=== PATIENT | female | born 1945 | race Two or more races ===

== ENCOUNTER 2017-04-30 01:58 | Inpatient (IN) | payer MEDICARE ==
[~2017-04-30] VITALS: Ht 160 cm; Wt 76.2 kg
[2017-04-30] VITALS (11 sets, daily range): BP systolic 81–120; BP diastolic 38–66
[2017-04-30] MEDS ORDERED: FUROSEMIDE20 M1 ORAL (02:01)
--- NOTE | 2017-04-30 02:09 | Emergency Room Report ---
History of Present Illness General Chief Complaint: Dyspnea/Respdistress Source: Patient, EMS Present Illness HPI 71-year-old female with pmhx of HTN, DM, CAD STATUS post CABG, CHF p/w SOB for 1 day SOB was gradual in onset, occurs both at rest and on exertion, worsened with laying flat. Associated with b/l lower extremity edema. Denies chest pain. When EMS arrived she was satting 85 on room air, rails, was given nitroglycerin and put on Z-Mamadou. Patient has experienced this SOB in the past and states it feels similar to previous CHF exacerbations. Allergies: Coded Allergies: No Known Allergies (Unverified , 04/30/17) Patient History Past Medical History: see triage record Past Surgical History: none Pertinent Family History: none Last Menstrual Period: n/a Reviewed Nursing Documentation: PMH: Agreed, PSxH: Agreed Nursing Documentation-PMH Past Medical History: No History, Except For Hx Cardiac Problems: Yes - CHF Hx Diabetes: Yes - dm2 Review of Systems All Other Systems: negative except mentioned in HPI Physical Exam Vital Signs Date Time Temp Pulse Resp B/P (MAP) Pulse Ox O2 Delivery O2 Flow Rate FiO2 04/30/17 01:53 95.5 136 24 180/109 91 Bi-pap Sp02 EP Interpretation: abnormal General Appearance: alert, GCS 15, moderate distress Head: normocephalic, atraumatic Eyes: bilateral eye normal inspection, bilateral eye PERRL, bilateral eye EOMI ENT: normal ENT inspection, normal pharynx, normal voice, moist mucus membranes Neck: normal inspection, full range of motion, supple Respiratory: respiratory distress, rales Cardiovascular #1: normal peripheral pulses, tachycardia, other - well healed substernal scar, edema Cardiovascular #2: 2+ radial (R), 2+ radial (L) Gastrointestinal: normal inspection, non tender, soft, non-distended, no guarding Musculoskeletal: normal inspection, back normal, normal range of motion, non- tender Neurologic: normal inspection, alert, oriented x3, responsive, motor strength/ tone normal, sensory intact, normal gait, speech normal Psychiatric: normal inspection, judgement/insight normal, memory normal Skin: normal inspection, normal color, no rash, warm/dry, well hydrated, normal turgor Procedures Critical Care Time Critical Care Time 40 minutes of CC time 71-year-old female with CHF exacerbation VS: hypoxic, tachypnea, tachycardic PLAN: IV access, labs, lactate, troponin, Blood/Urine Cx, Abx, lasix nitro BIPAP Anticipate admission to [facility] CC time also includes review of labs, review of EMR, discussion with family and paperwork from SNF, d/w hospitalist CC could include dosing of pressors, additional Abx CC time does not include procedures Medical Decision Making Diagnostic Impression: Primary Impression: CHF exacerbation Additional Impressions: Respiratory failure with hypoxia Renal insufficiency ER Course 71-year-old female with pmhx of HTN, CAD, CHF p/w SOB DDX: CHF exacerbation, ACS, pneumonia, asthma/copd 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 Tridal drip started and then stopped due to hypotension Patient's condition remains serious. given abx empirically cannot r/o R sided pna, also with wbc at 20 Disposition: Patient to be admitted to [facility] Patient requires inpatient admission for close monitoring of respiratory status/ continuation of BIPAP, further workup including serial troponin and EKGs, possible additional diuresis and monitoring of electrolytes. D/w hospitalist Dr Mace Please note that this Emergency Department Report was dictated using [employer] sales [employer] technology software, occasionally this can lead to erroneous entry secondary to interpretation by the dictation equipment. EKG Diagnostic Results EP Interpretation: Yes Rate: Tachycardic Rhythm: Atrial fibrillation ST Segments: T wave inversions noted in the lateral leads ASA given to patient: no Rhythm Strip EP Interpretation: Yes Rate:122 Rhythm: NSR, no PVCs, no ectopy Chest X-ray CXR: Ordered: Yes 1 view Indication: SOB EP interpretation: Yes Interpretation: Cardiomegaly with pulmonary vascular congestion, also cannot R/ O R sided infiltrate Impression: CHF possible R sided infiltrate Electronically signed by Petros Rivera MD Laboratory Tests Test 04/30/17 02:00 04/30/17 03:08 04/30/17 03:20 04/30/17 05:09 White Blood Count 20.3 K/UL (4.8-10.8) H Red Blood Count 4.60 M/UL (4.20-5.40) Hemoglobin 12.8 G/DL (12.0-16.0) Hematocrit 40.0 % (37.0-47.0) Mean Corpuscular Volume 87 FL (80-99) Mean Corpuscular Hemoglobin 27.9 PG (27.0-31.0) Mean Corpuscular Hemoglobin Concent 32.1 G/DL (32.0-36.0) Red Cell Distribution Width 12.7 % (11.6-14.8) Platelet Count 340 K/UL (150-450) Mean Platelet Volume 6.0 FL (6.5-10.1) L Neutrophils (%) (Auto) % (45.0-75.0) Lymphocytes (%) (Auto) % (20.0-45.0) Monocytes (%) (Auto) % (1.0-10.0) Eosinophils (%) (Auto) % (0.0-3.0) Basophils (%) (Auto) % (0.0-2.0) Differential Total Cells Counted 100 Neutrophils % (Manual) 69 % (45-75) Lymphocytes % (Manual) 21 % (20-45) Monocytes % (Manual) 4 % (1-10) Eosinophils % (Manual) 3 % (0-3) Basophils % (Manual) 1 % (0-2) Band Neutrophils 2 % (0-8) Platelet Estimate Adequate Platelet Morphology Normal Prothrombin Time 9.9 SEC (9.30-11.50) Prothrombin Time INR 0.9 (0.9-1.1) PTT 25 SEC (23-33) Sodium Level 135 MMOL/L (136-145) L Potassium Level 3.7 MMOL/L (3.5-5.1) Chloride Level 98 MMOL/L (98-107) Carbon Dioxide Level 20 MMOL/L (21-32) L Anion Gap 18 mmol/L (5-15) H Blood Urea Nitrogen 23 mg/dL (7-18) H Creatinine 1.8 MG/DL (0.55-1.30) H Estimate Glomerular Filtration Rate 27.9 mL/min (>60) Glucose Level 362 MG/DL (74-106) H Lactic Acid Level 6.50 mmol/L (0.66-2.22) H Pending Calcium Level 9.3 MG/DL (8.5-10.1) Total Bilirubin 0.7 MG/DL (0.2-1.0) Aspartate Amino Transferase (AST) 34 U/L (15-37) Alanine Aminotransferase (ALT) 28 U/L (12-78) Alkaline Phosphatase 122 U/L (46-116) H Troponin I 0.012 ng/mL (0.000-0.056) Pro-B-Type Natriuretic Peptide 1854 pg/mL (0-125) H Total Protein 8.6 G/DL (6.4-8.2) H Albumin 3.8 G/DL (3.4-5.0) Globulin 4.8 g/dL Albumin/Globulin Ratio 0.8 (1.0-2.7) L Arterial Blood pH 7.408 (7.350-7.450) Arterial Blood Partial Pressure CO2 28.6 mmHg (35.0-45.0) L Arterial Blood Partial Pressure O2 75.1 mmHg (75.0-100.0) Arterial Blood HCO3 17.6 mmol/L (22.0-26.0) L Arterial Blood Oxygen Saturation 94.3 % (92.0-98.0) Arterial Blood Base Excess -5.8 Marlon Test Positive Urine Color Pale yellow Urine Appearance Clear Urine pH 6 (4.5-8.0) Urine Specific [place] 1.010 (1.005-1.035) Urine Protein 4+ (NEGATIVE) H Urine Glucose (UA) 4+ (NEGATIVE) H Urine Ketones Negative (NEGATIVE) Urine Occult Blood 1+ (NEGATIVE) H Urine Nitrite Negative (NEGATIVE) Urine Bilirubin Negative (NEGATIVE) Urine Urobilinogen Normal MG/DL (0.0-1.0) Urine Leukocyte Esterase Negative (NEGATIVE) Urine RBC 0-2 /HPF (0 - 2) Urine WBC 0-2 /HPF (0 - 2) Urine Squamous Epithelial Cells Few /LPF (NONE/OCC) Urine Bacteria Few /HPF (NONE) Last Vital Signs Date Time Temp Pulse Resp B/P (MAP) Pulse Ox O2 Delivery O2 Flow Rate FiO2 04/30/17 01:53 95.5 136 24 180/109 91 Bi-pap Disposition: ADMITTED INPATIENT Condition: Petros Blackburn M.D. Apr 30, 2017 02:09
[2017-04-30] MEDS ORDERED: Nitroglycerin 50mg/250ml btl 250 ML IV SCH (02:15)
[2017-04-30 02:37] LABS: HEMOGLOBIN 12.8 G/DL (12.0-16.0); MEAN CORPUSCULAR VOLUME 87 FL (80-99); PLATELET COUNT 340 K/UL (150-450); RED CELL DISTRIBUTION WIDTH 12.7 % (11.6-14.8); WHITE BLOOD COUNT 20.3 K/UL (4.8-10.8)
[2017-04-30 02:49] LABS: ANION GAP 18 mmol/L (5-15); BLOOD UREA NITROGEN 23 mg/dL (7-18); CALCIUM 9.3 MG/DL (8.5-10.1); CARBON DIOXIDE 20 MMOL/L (21-32); CHLORIDE 98 MMOL/L (98-107); CREATININE 1.8 MG/DL (0.55-1.30); POTASSIUM 3.7 MMOL/L (3.5-5.1); SODIUM 135 MMOL/L (136-145)
[2017-04-30 02:50] LABS: INR 0.9 (0.9-1.1)
[2017-04-30 03:00] LABS: ALANINE AMINOTRANSFERASE 28 U/L (12-78); ALBUMIN 3.8 G/DL (3.4-5.0); ALBUMIN/GLOBULIN RATIO 0.8 (1.0-2.7); ALKALINE PHOSPHATASE 122 U/L (46-116); ASPARTATE AMINO TRANSFERASE 34 U/L (15-37); BILIRUBIN,TOTAL 0.7 MG/DL (0.2-1.0)
[2017-04-30] MEDS ORDERED: Vancomycin 1.5gm/D5W 250ml 250 ML IVPB ONE (03:00)
[2017-04-30] MEDS ORDERED: Cefepime HCl 1 GM in NS 55 ML IV ONE (03:00)
[2017-04-30] MEDS ORDERED: Cefepime 1gm vial ONE (03:14)
[2017-04-30 03:25] LABS: APPEARANCE,URINE CLEAR; BILIRUBIN, URINE NEGATIVE (NEGATIVE); COLOR,URINE PALE YELLOW; GLUCOSE, URINE (UA) 4+ (NEGATIVE); KETONES,URINE NEGATIVE (NEGATIVE); LEUKOCYTE ESTERASE ,URINE NEGATIVE (NEGATIVE); NITRITE,URINE NEGATIVE (NEGATIVE); PH,URINE 6 (4.5-8.0); PROTEIN,URINE 4+ (NEGATIVE); UROBILINOGEN,URINE NORMAL MG/DL (0.0-1.0)
[2017-04-30] MEDS ORDERED: LANTUS SOL100 UNIT/1 SUBQ ×2 (08:39→09:16)
[2017-04-30] MEDS ORDERED: LISINOPRIL5 MG ORAL (08:39)
[2017-04-30] MEDS ORDERED: LIPITOR80 MG ORAL (08:39)
[2017-04-30] MEDS ORDERED: JENTADUETO 2.51 EAC2 PO ×2 (08:39→09:16)
[2017-04-30] MEDS ORDERED: ASPIRIN81 MG ORAL (08:39)
[2017-04-30] MEDS ORDERED: CARVEDILOL3.125 MG ORAL (08:39)
[2017-04-30] MEDS ORDERED: HUMALOG100 UNIT/3 SUBQ (08:39)
[2017-04-30] MEDS ORDERED: CARVEDILOL6.25 MG ORAL (09:16)
[2017-04-30] MEDS ORDERED: SULFAMETHOXAZO1 EAC2 ORAL (09:16)
[2017-04-30] MEDS ORDERED: ASPIR 8181 MG ORAL (09:16)
[2017-04-30] MEDS ORDERED: CENTRUM ADULTS1 EACH PO (09:16)
[2017-04-30] MEDS ORDERED: LASIX20 M1 ORAL (09:16)
[2017-04-30] MEDS ORDERED: LISINOPRIL10 MG ORAL (09:16)
--- NOTE | 2017-04-30 10:33 | Diagnostic Imaging Report ---
Indication: Dyspnea Comparison: None A single view chest radiograph was obtained. Findings: There is enlargement of the cardiac silhouette with pulmonary vascular redistribution and prominence, hazy vessel margins and the suggestion of interstitial edema consistent with CHF. Sternotomy noted. Bones are osteopenic. IMPRESSION: Interstitial edema/CHF
--- NOTE | 2017-04-30 14:38 | Infectious Diseases Prog Note ---
Assessment/Plan Problems: (1) Pneumonia Assessment & Plan: with significant infiltration and leukocytosis, will send sptum culture and screen for influenza, start cefepime , doxycycline, and Tamiflu empirically (2) Sepsis Assessment & Plan: due to the above, will send blood culture and start cefepime with doxycycline (3) Respiratory failure with hypoxia Assessment & Plan: due to the above, continue inhalers and oxygen with antibiotics , monitor CXR (4) CHF exacerbation Assessment & Plan: recommend diuresis with daily weight monitor and urine output (5) Renal insufficiency Assessment & Plan: avoid nephrotoxic meds, follow renal function with urine output Assessment/Plan possible influenza infection : will place in droplet isolation and screen for influenza, start Tamiflu empirically Subjective Allergies: Coded Allergies: No Known Allergies (Unverified , 04/30/17) Objective Vital Signs Last 24 Hour Vital Signs Date Time Temp Pulse Resp B/P (MAP) Pulse Ox O2 Delivery O2 Flow Rate FiO2 04/30/17 12:04 98.5 59 18 110/49 98 Nasal Cannula 4.0 04/30/17 12:00 68 04/30/17 11:27 61 04/30/17 09:30 62 23 107/63 99 Nasal Cannula 4.0 04/30/17 08:30 98.5 66 22 97/57 98 Nasal Cannula 4.0 04/30/17 07:30 65 23 114/66 99 Nasal Cannula 4.0 04/30/17 07:15 68 24 Nasal Cannula 4.0 97 04/30/17 06:33 98.7 69 18 98/58 96 Nasal Cannula 4.0 04/30/17 05:18 98.7 04/30/17 05:04 95.5 66 21 94/38 98 50 04/30/17 04:46 86 16 98 Facial 50 04/30/17 03:30 50 04/30/17 03:15 77 24 96 Facial 50 04/30/17 03:00 95.5 76 26 81/45 95 Bi-pap 50 04/30/17 02:20 89 39 Bi-pap 30 04/30/17 02:20 95.5 89 39 108/58 92 Bi-pap 30 04/30/17 02:15 108/58 04/30/17 02:14 107 39 Bi-pap 30 04/30/17 02:12 106 39 97 Facial 30 04/30/17 01:53 95.5 136 24 180/109 91 Bi-pap Height (Feet): 5 Height (Inches): 3.00 Weight (Pounds): 210 Laboratory Tests Test 04/30/17 02:00 04/30/17 03:08 04/30/17 03:20 04/30/17 05:09 White Blood Count 20.3 K/UL (4.8-10.8) H Red Blood Count 4.60 M/UL (4.20-5.40) Hemoglobin 12.8 G/DL (12.0-16.0) Hematocrit 40.0 % (37.0-47.0) Mean Corpuscular Volume 87 FL (80-99) Mean Corpuscular Hemoglobin 27.9 PG (27.0-31.0) Mean Corpuscular Hemoglobin Concent 32.1 G/DL (32.0-36.0) Red Cell Distribution Width 12.7 % (11.6-14.8) Platelet Count 340 K/UL (150-450) Mean Platelet Volume 6.0 FL (6.5-10.1) L Neutrophils (%) (Auto) % (45.0-75.0) Lymphocytes (%) (Auto) % (20.0-45.0) Monocytes (%) (Auto) % (1.0-10.0) Eosinophils (%) (Auto) % (0.0-3.0) Basophils (%) (Auto) % (0.0-2.0) Differential Total Cells Counted 100 Neutrophils % (Manual) 69 % (45-75) Lymphocytes % (Manual) 21 % (20-45) Monocytes % (Manual) 4 % (1-10) Eosinophils % (Manual) 3 % (0-3) Basophils % (Manual) 1 % (0-2) Band Neutrophils 2 % (0-8) Platelet Estimate Adequate Platelet Morphology Normal Prothrombin Time 9.9 SEC (9.30-11.50) Prothromb Time International Ratio 0.9 (0.9-1.1) Activated Partial Thromboplast Time 25 SEC (23-33) Sodium Level 135 MMOL/L (136-145) L Potassium Level 3.7 MMOL/L (3.5-5.1) Chloride Level 98 MMOL/L (98-107) Carbon Dioxide Level 20 MMOL/L (21-32) L Anion Gap 18 mmol/L (5-15) H Blood Urea Nitrogen 23 mg/dL (7-18) H Creatinine 1.8 MG/DL (0.55-1.30) H Estimat Glomerular Filtration Rate 27.9 mL/min (>60) Glucose Level 362 MG/DL (74-106) H Lactic Acid Level 6.50 mmol/L (0.66-2.22) H 1.70 mmol/L (0.66-2.22) Calcium Level 9.3 MG/DL (8.5-10.1) Total Bilirubin 0.7 MG/DL (0.2-1.0) Aspartate Amino Transf (AST/SGOT) 34 U/L (15-37) Alanine Aminotransferase (ALT/SGPT) 28 U/L (12-78) Alkaline Phosphatase 122 U/L (46-116) H Troponin I 0.012 ng/mL (0.000-0.056) Pro-B-Type Natriuretic Peptide 1854 pg/mL (0-125) H Total Protein 8.6 G/DL (6.4-8.2) H Albumin 3.8 G/DL (3.4-5.0) Globulin 4.8 g/dL Albumin/Globulin Ratio 0.8 (1.0-2.7) L Arterial Blood pH 7.408 (7.350-7.450) Arterial Blood Partial Pressure CO2 28.6 mmHg (35.0-45.0) L Arterial Blood Partial Pressure O2 75.1 mmHg (75.0-100.0) Arterial Blood HCO3 17.6 mmol/L (22.0-26.0) L Arterial Blood Oxygen Saturation 94.3 % (92.0-98.0) Arterial Blood Base Excess -5.8 Marlon Test Positive Urine Color Pale yellow Urine Appearance Clear Urine pH 6 (4.5-8.0) Urine Specific [place] 1.010 (1.005-1.035) Urine Protein 4+ (NEGATIVE) H Urine Glucose (UA) 4+ (NEGATIVE) H Urine Ketones Negative (NEGATIVE) Urine Occult Blood 1+ (NEGATIVE) H Urine Nitrite Negative (NEGATIVE) Urine Bilirubin Negative (NEGATIVE) Urine Urobilinogen Normal MG/DL (0.0-1.0) Urine Leukocyte Esterase Negative (NEGATIVE) Urine RBC 0-2 /HPF (0 - 2) Urine WBC 0-2 /HPF (0 - 2) Urine Squamous Epithelial Cells Few /LPF (NONE/OCC) Urine Bacteria Few /HPF (NONE) Current Medications Medications (Trade) Dose Ordered Sig/Ellen Route PRN Reason Start Time Stop Time Status Last Admin Dose Admin Dextrose (Dextrose 50%) STAT PRN IV Hypoglycemia 04/30/17 13:30 05/30/17 13:29 Insulin Aspart (NovoLOG) BEFORE MEALS AND HS SUBQ 04/30/17 16:30 05/30/17 16:29 Sarah Matos M.D. Apr 30, 2017 14:38
[2017-04-30] MEDS: NovoLOG Insulin Flexpen SUBQ SCH ×2 (16:59→20:55)
--- NOTE | 2017-04-30 19:45 | Consultation ---
DATE OF CONSULTATION: 04/30/2017 INFECTIOUS DISEASES CONSULTATION CONSULTING PHYSICIAN: Sarah Matos M.D. REQUESTING PHYSICIAN: Jose Manuel Zimmerman M.D. REASON FOR CONSULTATION: Pneumonia, sepsis, and leukocytosis. Recommendation for antibiotics treatment. HISTORY OF PRESENT ILLNESS: The patient is a 71-year-old female with past medical history of coronary artery disease status post bypass surgery, diabetes, hypertension, and CHF with recent exacerbation in December presented to [facility] emergency room for shortness of breath over the last 24 hours. The patient was dyspneic on rest and on exertion. Her shortness of breath has been progressive. It was associated with cough productive of grayish phlegm. The patient had a sister who was sick with cold recently. She is unclear whether she had influenza infection or not. The patient had a chest x-ray in the emergency room, which showed evidence of bilateral infiltration suspicious of pneumonia. Her white count was significantly elevated around 20,000 suggestive of sepsis and pneumonia so I was consulted by the primary provider for antibiotics treatment and further management of pneumonia, leukocytosis, and possible sepsis. PAST MEDICAL HISTORY: Significant for hypertension, diabetes, coronary artery disease status post CABG, and CHF. PAST SURGICAL HISTORY: She had bypass surgery. ALLERGIES: She has no known drug allergy. MEDICATIONS: The patient received cefepime in the emergency room. She had vancomycin ordered but not received. SOCIAL HISTORY: The patient lives at home with sister. Denied using any drugs, tobacco, or alcohol. FAMILY HISTORY: Negative for recurrent infection or immunocompromised condition. REVIEW OF SYSTEMS: A 14-point of system reviewed were all negative apart from the one I mentioned above in my History and Physical. PHYSICAL EXAMINATION: VITAL SIGNS: Temperature 98.5, pulse 59, respirations 18, blood pressure 110/49, and saturation 98% on 4 liters nasal cannula. GENERAL: The patient is an elderly female, obese, lying in bed, awake, alert, oriented, not in distress, coughing. HEENT: Normocephalic and atraumatic. Pupils are reactive to light. Moist oral mucosa. No exudate or thrush. NECK: Supple. No lymphadenopathy. CARDIOVASCULAR: She was tachycardic. S1 and S2 normal. No murmur. LUNGS: She had wheezing at the apex and crackles with diminished breathing sounds at the bases. ABDOMEN: Soft, obese, nontender, and nondistended. Normal bowel sounds. No hepatosplenomegaly. No ascites. EXTREMITIES: She had +1 edema. No cyanosis. No clubbing. SKIN: No rash. No hives. No ulceration. LABORATORY DATA: Showed white count of 20.3, hemoglobin of 12.8, and platelet count of 340. BUN of 23, creatinine of 1.8, and glucose of 362. Urinalysis was negative for infection. IMAGING STUDIES: Chest x-ray showed interstitial edema and CHF. ASSESSMENT AND RECOMMENDATION: 1. Pneumonia with significant infiltration and leukocytosis. We will send sputum culture and screen for influenza. Since she is at high risk, we will start the patient on cefepime, doxycycline, and Tamiflu empiric coverage. Pending culture results. We will place the patient in droplet isolation. 2. Possible influenza infection. We will place the patient in droplet isolation and screen for influenza. Start Tamiflu empirically. 3. Sepsis due to the above with significant leukocytosis. We will send blood culture and start cefepime with doxycycline empiric coverage. 4. Respiratory failure with hypoxemia due to the above. Continue inhalers and oxygen with antibiotics. Monitor chest x-ray. Titrate oxygen as needed. 5. Congestive heart failure with possible exacerbation. Recommend diuresis with daily weight monitor and urine output monitor. 6. Renal insufficiency, unclear whether acute or chronic. Avoid nephrotoxic medicine. Follow renal function with urine output. Nephrology team will be following. Thank you for the consult. Infectious Disease will continue to follow. Sarah Matos M.D. DR: CHANTALE JOB#: [id number] CC:
--- NOTE | 2017-04-30 22:17 | History and Physical ---
History of Present Illness General Date patient seen: Apr 30, 2017 Reason for Hospitalization: Dyspnea/Respdistress Present Illness Allergies: Coded Allergies: No Known Allergies (Unverified , 04/30/17) Medication History Scheduled Aspirin* (Aspir 81*), 81 MG ORAL DAILY, (Reported) Carvedilol* (Carvedilol*), 6.25 MG ORAL EVERY 12 HOURS, (Reported) Furosemide* (Lasix*), 20 MG ORAL DAILY, (Reported) Insulin Glargine (Lantus), 20 SUBQ BEDTIME, (Reported) Linagliptin/Metformin Hcl (Jentadueto 2.5 Mg-1000 Mg Tab), 1 EACH PO BID, ( Reported) Lisinopril* (Lisinopril*), 20 MG ORAL DAILY, (Reported) Multivitamin/Iron/Folic Acid (Centrum Adults Tablet), 1 EACH PO DAILY, (Reported ) Sulfamethoxazole/Trimethoprim Ds Tablet* (Sulfamethoxazole-Tmp Ds Tablet*), 1 TAB ORAL TWICE A DAY, (Reported) Miscellaneous Medications Linagliptin/Metformin Hcl (Jentadueto 2.5 Mg-1000 Mg Tab), 1 EACH PO, (Reported) Patient History Healthcare decision maker Resuscitation status Full Code Advanced Directive on File No Physical Exam Last 24 Hour Vital Signs Date Time Temp Pulse Resp B/P (MAP) Pulse Ox O2 Delivery O2 Flow Rate FiO2 04/30/17 16:00 65 04/30/17 16:00 98.0 65 20 97/59 99 Nasal Cannula 4.0 04/30/17 12:04 98.5 59 18 110/49 98 Nasal Cannula 4.0 04/30/17 12:00 68 04/30/17 11:27 61 04/30/17 11:10 98.5 63 23 120/53 99 Nasal Cannula 4.0 97 04/30/17 11:10 62 23 120/53 99 Nasal Cannula 4.0 97 04/30/17 09:30 62 23 107/63 99 Nasal Cannula 4.0 04/30/17 08:30 98.5 66 22 97/57 98 Nasal Cannula 4.0 04/30/17 07:30 65 23 114/66 99 Nasal Cannula 4.0 04/30/17 07:15 68 24 Nasal Cannula 4.0 97 04/30/17 06:33 98.7 69 18 98/58 96 Nasal Cannula 4.0 1/11/18 05:18 98.7 04/30/17 05:04 95.5 66 21 94/38 98 50 04/30/17 04:46 86 16 98 Facial 50 04/30/17 03:30 50 04/30/17 03:15 77 24 96 Facial 50 04/30/17 03:00 95.5 76 26 81/45 95 Bi-pap 50 04/30/17 02:20 89 39 Bi-pap 30 04/30/17 02:20 95.5 89 39 108/58 92 Bi-pap 30 04/30/17 02:15 108/58 04/30/17 02:14 107 39 Bi-pap 30 04/30/17 02:12 106 39 97 Facial 30 04/30/17 01:53 95.5 136 24 180/109 91 Bi-pap Intake and Output 04/29/17 04/30/17 19:00 07:00 Intake Total 0 ml Balance 0 ml Intake Oral 0 ml Laboratory Tests Test 04/30/17 02:00 04/30/17 03:08 04/30/17 03:20 04/30/17 05:09 White Blood Count 20.3 K/UL (4.8-10.8) H Red Blood Count 4.60 M/UL (4.20-5.40) Hemoglobin 12.8 G/DL (12.0-16.0) Hematocrit 40.0 % (37.0-47.0) Mean Corpuscular Volume 87 FL (80-99) Mean Corpuscular Hemoglobin 27.9 PG (27.0-31.0) Mean Corpuscular Hemoglobin Concent 32.1 G/DL (32.0-36.0) Red Cell Distribution Width 12.7 % (11.6-14.8) Platelet Count 340 K/UL (150-450) Mean Platelet Volume 6.0 FL (6.5-10.1) L Neutrophils (%) (Auto) % (45.0-75.0) Lymphocytes (%) (Auto) % (20.0-45.0) Monocytes (%) (Auto) % (1.0-10.0) Eosinophils (%) (Auto) % (0.0-3.0) Basophils (%) (Auto) % (0.0-2.0) Differential Total Cells Counted 100 Neutrophils % (Manual) 69 % (45-75) Lymphocytes % (Manual) 21 % (20-45) Monocytes % (Manual) 4 % (1-10) Eosinophils % (Manual) 3 % (0-3) Basophils % (Manual) 1 % (0-2) Band Neutrophils 2 % (0-8) Platelet Estimate Adequate Platelet Morphology Normal Prothrombin Time 9.9 SEC (9.30-11.50) Prothromb Time International Ratio 0.9 (0.9-1.1) Activated Partial Thromboplast Time 25 SEC (23-33) Sodium Level 135 MMOL/L (136-145) L Potassium Level 3.7 MMOL/L (3.5-5.1) Chloride Level 98 MMOL/L (98-107) Carbon Dioxide Level 20 MMOL/L (21-32) L Anion Gap 18 mmol/L (5-15) H Blood Urea Nitrogen 23 mg/dL (7-18) H Creatinine 1.8 MG/DL (0.55-1.30) H Estimat Glomerular Filtration Rate 27.9 mL/min (>60) Glucose Level 362 MG/DL (74-106) H Lactic Acid Level 6.50 mmol/L (0.66-2.22) H 1.70 mmol/L (0.66-2.22) Calcium Level 9.3 MG/DL (8.5-10.1) Total Bilirubin 0.7 MG/DL (0.2-1.0) Aspartate Amino Transf (AST/SGOT) 34 U/L (15-37) Alanine Aminotransferase (ALT/SGPT) 28 U/L (12-78) Alkaline Phosphatase 122 U/L (46-116) H Troponin I 0.012 ng/mL (0.000-0.056) Pro-B-Type Natriuretic Peptide 1854 pg/mL (0-125) H Total Protein 8.6 G/DL (6.4-8.2) H Albumin 3.8 G/DL (3.4-5.0) Globulin 4.8 g/dL Albumin/Globulin Ratio 0.8 (1.0-2.7) L Arterial Blood pH 7.408 (7.350-7.450) Arterial Blood Partial Pressure CO2 28.6 mmHg (35.0-45.0) L Arterial Blood Partial Pressure O2 75.1 mmHg (75.0-100.0) Arterial Blood HCO3 17.6 mmol/L (22.0-26.0) L Arterial Blood Oxygen Saturation 94.3 % (92.0-98.0) Arterial Blood Base Excess -5.8 Marlon Test Positive Urine Color Pale yellow Urine Appearance Clear Urine pH 6 (4.5-8.0) Urine Specific [place] 1.010 (1.005-1.035) Urine Protein 4+ (NEGATIVE) H Urine Glucose (UA) 4+ (NEGATIVE) H Urine Ketones Negative (NEGATIVE) Urine Occult Blood 1+ (NEGATIVE) H Urine Nitrite Negative (NEGATIVE) Urine Bilirubin Negative (NEGATIVE) Urine Urobilinogen Normal MG/DL (0.0-1.0) Urine Leukocyte Esterase Negative (NEGATIVE) Urine RBC 0-2 /HPF (0 - 2) Urine WBC 0-2 /HPF (0 - 2) Urine Squamous Epithelial Cells Few /LPF (NONE/OCC) Urine Bacteria Few /HPF (NONE) Microbiology Date/Time Source Procedure Growth Status 04/30/17 16:00 Nasopharynx Influenza Types A,B Antigen (TIAGO) - Final Complete Height (Feet): 5 Height (Inches): 3.00 Weight (Pounds): 210 Medications Current Medications Medications (Trade) Dose Ordered Sig/Ellen Route PRN Reason Start Time Stop Time Status Last Admin Dose Admin Cefepime HCl 2 gm/ Dextrose 55 ml @ 110 mls/hr Q24H IVPB 05/01/17 03:00 05/08/17 02:59 Dextrose (Dextrose 50%) STAT PRN IV Hypoglycemia 04/30/17 13:30 05/30/17 13:29 Doxycycline Monohydrate (Vibramycin) 100 mg Q12HR@0600,1800 ORAL 04/30/17 16:30 05/07/17 16:29 04/30/17 16:58 Insulin Aspart (NovoLOG) BEFORE MEALS AND HS SUBQ 04/30/17 16:30 05/30/17 16:29 04/30/17 20:55 Oseltamivir Phosphate (Tamiflu) 30 mg BID ORAL 04/30/17 18:00 05/05/17 17:59 04/30/17 17:45 DIVINA MATTHEWS Apr 30, 2017 22:17
[2017-05-01] VITALS: BP 117/58
[2017-05-01] MEDS: Cefepime HCl 2 GM in D5W 55 ML IVPB SCH (03:09)
[2017-05-01 04:00] VITALS: BP 123/67
[2017-05-01 05:36] LABS: BASOPHILS % (AUTO) 0.6 % (0.0-2.0); EOSINOPHILS % (AUTO) 1.8 % (0.0-3.0); HEMATOCRIT 30.6 % (37.0-47.0); HEMOGLOBIN 10.5 G/DL (12.0-16.0); LYMPHOCYTES % (AUTO) 15.1 % (20.0-45.0); MEAN CORPUSCULAR VOLUME 85 FL (80-99); MONOCYTES % (AUTO) 10.2 % (1.0-10.0); NEUTROPHILS % (AUTO) 72.3 % (45.0-75.0); PLATELET COUNT 245 K/UL (150-450); RED BLOOD COUNT 3.59 M/UL (4.20-5.40); RED CELL DISTRIBUTION WIDTH 12.6 % (11.6-14.8)
[2017-05-01] MEDS: NovoLOG Insulin Flexpen SUBQ SCH ×4 (05:48→21:08)
[2017-05-01 06:26] LABS: ALANINE AMINOTRANSFERASE 36 U/L (12-78); ALBUMIN/GLOBULIN RATIO 0.8 (1.0-2.7); ALKALINE PHOSPHATASE 159 U/L (46-116); ANION GAP 10 mmol/L (5-15); ASPARTATE AMINO TRANSFERASE 48 U/L (15-37); BILIRUBIN,TOTAL 0.6 MG/DL (0.2-1.0); BLOOD UREA NITROGEN 35 mg/dL (7-18); CALCIUM 8.8 MG/DL (8.5-10.1); CARBON DIOXIDE 22 MMOL/L (21-32); CHLORIDE 104 MMOL/L (98-107); CREATININE 1.9 MG/DL (0.55-1.30); POTASSIUM 4.5 MMOL/L (3.5-5.1); SODIUM 136 MMOL/L (136-145)
[2017-05-01 08:00] VITALS: BP 110/83
[2017-05-01 12:00] VITALS: BP 115/64
--- NOTE | 2017-05-01 15:35 | Infectious Diseases Prog Note ---
Assessment/Plan Problems: (1) Pneumonia Assessment & Plan: with significant infiltration and leukocytosis, await sptum culture, screening for influenza is negative , continue cefepime , doxycycline, and stop Tamiflu empirically. may remove from droplet isolation (2) Sepsis Assessment & Plan: due to the above, await blood culture and continue cefepime with doxycycline empiric coverage (3) Respiratory failure with hypoxia Assessment & Plan: due to the above, continue inhalers and oxygen with antibiotics , monitor CXR (4) CHF exacerbation Assessment & Plan: continue diuresis with daily weight monitor and urine output, consult cardiology (5) Renal insufficiency Assessment & Plan: avoid nephrotoxic meds, follow renal function with urine output Subjective Constitutional: Reports: no symptoms HEENT: Reports: no symptoms Respiratory: Reports: dry cough, other - wheezing Breasts: Reports: no symptoms Cardiovascular: Reports: no symptoms Gastrointestinal/Abdominal: Reports: no symptoms Genitourinary: Reports: no symptoms Neurologic: Reports: no symptoms Psychiatric: Reports: no symptoms Skin: Reports: no symptoms Endocrine: Reports: no symptoms Hematologic: Reports: no symptoms Musculoskeletal: Reports: no symptoms Allergies: Coded Allergies: No Known Allergies (Unverified , 04/30/17) Objective Vital Signs Last 24 Hour Vital Signs Date Time Temp Pulse Resp B/P (MAP) Pulse Ox O2 Delivery O2 Flow Rate FiO2 05/01/17 12:15 84 05/01/17 12:00 98.2 83 20 115/64 96 Nasal Cannula 4.0 05/01/17 08:00 98.1 83 22 110/83 94 Nasal Cannula 4.0 05/01/17 07:53 92 05/01/17 04:00 98.9 81 24 123/67 99 Nasal Cannula 4.0 05/01/17 03:55 85 05/01/17 00:00 98.0 83 21 117/58 98 Nasal Cannula 4.0 04/30/17 23:50 85 04/30/17 20:00 98.1 80 32 119/59 98 Nasal Cannula 4.0 04/30/17 19:10 72 04/30/17 16:00 65 04/30/17 16:00 98.0 65 20 97/59 99 Nasal Cannula 4.0 Height (Feet): 5 Height (Inches): 3.00 Weight (Pounds): 210 General Appearance: WD/WN, no acute distress HEENT: normocephalic, atraumatic, anicteric, mucous membranes moist, PERRL, EOMI, pharynx normal, supple, no JVD Respiratory/Chest: chest wall non-tender, no respiratory distress, no accessory muscle use, decreased breath sounds, expiratory wheezing Cardiovascular: normal peripheral pulses, normal rate, regular rhythm, no gallop/murmur, no JVD Abdomen: normal bowel sounds, soft, non tender, no organomegaly, non distended , no mass, no scars Extremities: no cyanosis, no clubbing Skin: no rash, no lesions, no ulcers Neurologic/Psychiatric: alert, oriented x 3, responsive Lymphatic: no neck adenopathy, no groin adenopathy Microbiology Date/Time Source Procedure Growth Status 04/30/17 02:15 Blood Blood Culture - Preliminary NO GROWTH AFTER 24 HOURS Resulted 04/30/17 02:00 Blood Blood Culture - Preliminary NO GROWTH AFTER 24 HOURS Resulted 04/30/17 16:00 Nasopharynx Influenza Types A,B Antigen (TIAGO) - Final Complete Laboratory Tests Test 05/01/17 04:10 White Blood Count 11.0 K/UL (4.8-10.8) H Red Blood Count 3.59 M/UL (4.20-5.40) L Hemoglobin 10.5 G/DL (12.0-16.0) L Hematocrit 30.6 % (37.0-47.0) L Mean Corpuscular Volume 85 FL (80-99) Mean Corpuscular Hemoglobin 29.2 PG (27.0-31.0) Mean Corpuscular Hemoglobin Concent 34.3 G/DL (32.0-36.0) Red Cell Distribution Width 12.6 % (11.6-14.8) Platelet Count 245 K/UL (150-450) Mean Platelet Volume 7.1 FL (6.5-10.1) Neutrophils (%) (Auto) 72.3 % (45.0-75.0) Lymphocytes (%) (Auto) 15.1 % (20.0-45.0) L Monocytes (%) (Auto) 10.2 % (1.0-10.0) H Eosinophils (%) (Auto) 1.8 % (0.0-3.0) Basophils (%) (Auto) 0.6 % (0.0-2.0) Sodium Level 136 MMOL/L (136-145) Potassium Level 4.5 MMOL/L (3.5-5.1) Chloride Level 104 MMOL/L (98-107) Carbon Dioxide Level 22 MMOL/L (21-32) Anion Gap 10 mmol/L (5-15) Blood Urea Nitrogen 35 mg/dL (7-18) H Creatinine 1.9 MG/DL (0.55-1.30) H Estimat Glomerular Filtration Rate 26.2 mL/min (>60) Glucose Level 174 MG/DL (74-106) #H Calcium Level 8.8 MG/DL (8.5-10.1) Total Bilirubin 0.6 MG/DL (0.2-1.0) Aspartate Amino Transf (AST/SGOT) 48 U/L (15-37) H Alanine Aminotransferase (ALT/SGPT) 36 U/L (12-78) Alkaline Phosphatase 159 U/L (46-116) H Total Protein 7.0 G/DL (6.4-8.2) Albumin 3.0 G/DL (3.4-5.0) L Globulin 4.0 g/dL Albumin/Globulin Ratio 0.8 (1.0-2.7) L Current Medications Medications (Trade) Dose Ordered Sig/Ellen Route PRN Reason Start Time Stop Time Status Last Admin Dose Admin Cefepime HCl 2 gm/ Dextrose 55 ml @ 110 mls/hr Q24H IVPB 05/01/17 03:00 05/08/17 02:59 05/01/17 03:09 Dextrose (Dextrose 50%) STAT PRN IV Hypoglycemia 04/30/17 13:30 05/30/17 13:29 Doxycycline Monohydrate (Vibramycin) 100 mg Q12HR@0600,1800 ORAL 04/30/17 16:30 05/07/17 16:29 05/01/17 05:46 Insulin Aspart (NovoLOG) BEFORE MEALS AND HS SUBQ 04/30/17 16:30 05/30/17 16:29 05/01/17 11:38 Sarah Matos M.D. May 01, 2017 15:35
[2017-05-01 16:00] VITALS: BP 127/67
--- NOTE | 2017-05-01 16:19 | Nephrology Progress Note ---
Assessment/Plan Problem List: (1) Diabetes (2) HTN (hypertension) (3) Shortness of breath (4) Renal insufficiency (5) Pneumonia (6) CHF exacerbation (7) Respiratory failure with hypoxia (8) Sepsis Plan Continue current treatment plan Abx per ID Monitor lytes correct prn Renally dose meds, avoid nephrotoxins Monitor intake and output Pulmo and cardio consults Strict glycemic control Add neb treatment to treatment plan PPI daily DVT prophylaxis AM labs Subjective Constitutional: Denies: no symptoms, chills, diaphoresis, fever, malaise, weakness, other HEENT: Denies: no symptoms, eye pain, blurred vision, tearing, double vision, ear pain, ear discharge, nose pain, nose congestion, throat pain, throat swelling, mouth pain, mouth swelling, other Genitourinary: Denies: no symptoms, burning, discharge, frequency, flank pain, hematuria, incontinence, pain, urgency, other Neurologic/Psychiatric: Denies: no symptoms, anxiety, depressed, emotional problems, headache, numbness, paresthesia, pre-existing deficit, seizure, tingling, tremors, weakness, other Subjective In bed, in no apparent distress, denies discomfort, denies cp, no SOB Objective Objective Last 24 Hour Vital Signs Date Time Temp Pulse Resp B/P (MAP) Pulse Ox O2 Delivery O2 Flow Rate FiO2 05/01/17 12:15 84 05/01/17 12:00 98.2 83 20 115/64 96 Nasal Cannula 4.0 05/01/17 08:00 98.1 83 22 110/83 94 Nasal Cannula 4.0 05/01/17 07:53 92 05/01/17 04:00 98.9 81 24 123/67 99 Nasal Cannula 4.0 05/01/17 03:55 85 05/01/17 00:00 98.0 83 21 117/58 98 Nasal Cannula 4.0 04/30/17 23:50 85 04/30/17 20:00 98.1 80 32 119/59 98 Nasal Cannula 4.0 04/30/17 19:10 72 Intake and Output 04/30/17 05/01/17 19:00 07:00 Intake Total 200 ml 55 ml Output Total 200 ml 300 ml Balance 0 ml -245 ml Intake Oral 200 ml IV Total 55 ml Output Urine Total 200 ml 300 ml Laboratory Tests 05/01/17 04:10: White Blood Count 11.0H, Red Blood Count 3.59L, Hemoglobin 10.5L, Hematocrit 30.6L, Mean Corpuscular Volume 85, Mean Corpuscular Hemoglobin 29.2, Mean Corpuscular Hemoglobin Concent 34.3, Red Cell Distribution Width 12.6, Platelet Count 245, Mean Platelet Volume 7.1, Neutrophils (%) (Auto) 72.3, Lymphocytes (% ) (Auto) 15.1L, Monocytes (%) (Auto) 10.2H, Eosinophils (%) (Auto) 1.8, Basophils (%) (Auto) 0.6, Sodium Level 136, Potassium Level 4.5, Chloride Level 104, Carbon Dioxide Level 22, Anion Gap 10, Blood Urea Nitrogen 35H, Creatinine 1.9H, Estimat Glomerular Filtration Rate 26.2, Glucose Level 174#H, Calcium Level 8.8, Total Bilirubin 0.6, Aspartate Amino Transf (AST/SGOT) 48H, Alanine Aminotransferase (ALT/SGPT) 36, Alkaline Phosphatase 159H, Total Protein 7.0, Albumin 3.0L, Globulin 4.0, Albumin/Globulin Ratio 0.8L Height (Feet): 5 Height (Inches): 3.00 Weight (Pounds): 210 General Appearance: no apparent distress, alert EENT: normal ENT inspection Neck: normal alignment, supple Cardiovascular: normal rate Respiratory/Chest: decreased breath sounds Abdomen: soft, no organomegaly Extremities: non-tender, normal inspection Neurologic: alert, oriented x 3, responsive, normal mood/affect Roula Butler N.P. May 01, 2017 16:19
[2017-05-01] MEDS ORDERED: Albuterol/Ipratropium 3ml neb HHN PRN (17:30)
[2017-05-01] MEDS: Albuterol/Ipratropium 3ml neb HHN SCH ×2 (19:52→23:25)
[2017-05-01 20:00] VITALS: BP 115/58
[2017-05-01] MEDS: Heparin 5000 units/ml inj SUBQ SCH (21:07)
[2017-05-02] VITALS: BP 118/55
[2017-05-02] MEDS: Cefepime HCl 2 GM in D5W 55 ML IVPB SCH (02:52)
[2017-05-02] MEDS: Albuterol/Ipratropium 3ml neb HHN SCH ×5 (03:49→20:56)
[2017-05-02 04:00] VITALS: BP 123/72
[2017-05-02 04:49] LABS: ANION GAP 6 mmol/L (5-15); BLOOD UREA NITROGEN 31 mg/dL (7-18); CALCIUM 8.8 MG/DL (8.5-10.1); CARBON DIOXIDE 25 MMOL/L (21-32); CHLORIDE 104 MMOL/L (98-107); CREATININE 1.5 MG/DL (0.55-1.30); POTASSIUM 5.2 MMOL/L (3.5-5.1); SODIUM 135 MMOL/L (136-145)
[2017-05-02 04:50] LABS: BASOPHILS % (AUTO) 0.9 % (0.0-2.0); EOSINOPHILS % (AUTO) 3.7 % (0.0-3.0); HEMATOCRIT 31.1 % (37.0-47.0); HEMOGLOBIN 10.2 G/DL (12.0-16.0); LYMPHOCYTES % (AUTO) 16.8 % (20.0-45.0); MEAN CORPUSCULAR VOLUME 86 FL (80-99); MONOCYTES % (AUTO) 10.7 % (1.0-10.0); NEUTROPHILS % (AUTO) 67.9 % (45.0-75.0); PLATELET COUNT 204 K/UL (150-450); RED BLOOD COUNT 3.61 M/UL (4.20-5.40); RED CELL DISTRIBUTION WIDTH 12.6 % (11.6-14.8); WHITE BLOOD COUNT 9.3 K/UL (4.8-10.8)
[2017-05-02] MEDS: NovoLOG Insulin Flexpen SUBQ SCH ×4 (06:32→21:03)
[2017-05-02 08:00] VITALS: BP 132/73
[2017-05-02] MEDS ORDERED: Levemir Flexpen SUBQ SCH ×2 (09:00→21:00)
[2017-05-02] MEDS: Heparin 5000 units/ml inj SUBQ SCH (09:09)
[2017-05-02 12:00] VITALS: BP 128/62
--- NOTE | 2017-05-02 14:31 | Infectious Diseases Prog Note ---
Assessment/Plan Problems: (1) Pneumonia Assessment & Plan: with significant infiltration and leukocytosis, sputum culture is not collected yet , screening for influenza is negative , continue cefepime , doxycycline for 7 days . (2) Sepsis Assessment & Plan: due to the above, blood culture remains negative , continue cefepime with doxycycline empiric coverage (3) Respiratory failure with hypoxia Assessment & Plan: due to the above, continue inhalers and oxygen with antibiotics , monitor CXR (4) CHF exacerbation Assessment & Plan: continue diuresis with daily weight monitor and urine output, consult cardiology (5) Renal insufficiency Assessment & Plan: avoid nephrotoxic meds, follow renal function with urine output Subjective Constitutional: Reports: no symptoms HEENT: Reports: no symptoms Respiratory: Reports: dry cough Breasts: Reports: no symptoms Cardiovascular: Reports: no symptoms Gastrointestinal/Abdominal: Reports: no symptoms Genitourinary: Reports: no symptoms Neurologic: Reports: no symptoms Psychiatric: Reports: no symptoms Skin: Reports: no symptoms Endocrine: Reports: no symptoms Hematologic: Reports: no symptoms Musculoskeletal: Reports: no symptoms Allergies: Coded Allergies: No Known Allergies (Unverified , 04/30/17) Objective Vital Signs Last 24 Hour Vital Signs Date Time Temp Pulse Resp B/P (MAP) Pulse Ox O2 Delivery O2 Flow Rate FiO2 05/02/17 12:00 83 05/02/17 12:00 97.8 78 18 128/62 97 Nasal Cannula 2.0 05/02/17 11:34 83 16 98 Room Air 21 05/02/17 11:34 28 05/02/17 11:24 82 16 96 Room Air 21 05/02/17 08:00 98.6 86 19 132/73 96 Nasal Cannula 2.0 05/02/17 08:00 88 05/02/17 06:54 79 16 100 Nasal Cannula 28.0 05/02/17 06:54 28 05/02/17 06:39 77 16 100 Nasal Cannula 2.0 28 05/02/17 06:39 77 16 Nasal Cannula 2.0 28 05/02/17 04:02 89 14 99 Nasal Cannula 28.0 05/02/17 04:00 97.7 99 21 123/72 99 Nasal Cannula 2.0 05/02/17 03:48 87 05/02/17 03:44 84 14 98 Nasal Cannula 2.0 28 05/02/17 03:44 28 05/02/17 00:00 91 05/02/17 00:00 98.4 98 20 118/55 96 Nasal Cannula 2.0 05/01/17 23:32 89 18 99 Nasal Cannula 2.0 28 05/01/17 23:22 28 05/01/17 23:22 88 16 98 Nasal Cannula 2.0 28 05/01/17 23:22 88 16 Nasal Cannula 2.0 28 05/01/17 20:00 97.7 86 18 115/58 100 Nasal Cannula 2.0 05/01/17 19:58 81 16 99 Nasal Cannula 2.0 28 05/01/17 19:48 28 05/01/17 19:48 73 16 Nasal Cannula 2.0 28 05/01/17 19:48 73 16 99 Nasal Cannula 2.0 28 05/01/17 19:33 90 05/01/17 16:00 89 05/01/17 16:00 98.2 85 20 127/67 97 Nasal Cannula 4.0 Height (Feet): 5 Height (Inches): 3.00 Weight (Pounds): 210 General Appearance: WD/WN, no acute distress HEENT: normocephalic, atraumatic, anicteric, mucous membranes moist, PERRL, EOMI, pharynx normal Respiratory/Chest: chest wall non-tender, lungs clear, normal breath sounds, no respiratory distress, no accessory muscle use Cardiovascular: normal peripheral pulses, normal rate, regular rhythm, no gallop/murmur, no JVD Abdomen: normal bowel sounds, soft, non tender, no organomegaly, non distended , no mass, no scars Extremities: no cyanosis, no clubbing Skin: no rash, no lesions, no ulcers Neurologic/Psychiatric: alert, oriented x 3 Lymphatic: no neck adenopathy, no groin adenopathy Microbiology Date/Time Source Procedure Growth Status 04/30/17 02:15 Blood Blood Culture - Preliminary NO GROWTH AFTER 48 HOURS Resulted 04/30/17 02:00 Blood Blood Culture - Preliminary NO GROWTH AFTER 48 HOURS Resulted 04/30/17 16:00 Nasopharynx Influenza Types A,B Antigen (TIAGO) - Final Complete Laboratory Tests Test 05/02/17 03:20 White Blood Count 9.3 K/UL (4.8-10.8) Red Blood Count 3.61 M/UL (4.20-5.40) L Hemoglobin 10.2 G/DL (12.0-16.0) L Hematocrit 31.1 % (37.0-47.0) L Mean Corpuscular Volume 86 FL (80-99) Mean Corpuscular Hemoglobin 28.2 PG (27.0-31.0) Mean Corpuscular Hemoglobin Concent 32.7 G/DL (32.0-36.0) Red Cell Distribution Width 12.6 % (11.6-14.8) Platelet Count 204 K/UL (150-450) Mean Platelet Volume 6.9 FL (6.5-10.1) Neutrophils (%) (Auto) 67.9 % (45.0-75.0) Lymphocytes (%) (Auto) 16.8 % (20.0-45.0) L Monocytes (%) (Auto) 10.7 % (1.0-10.0) H Eosinophils (%) (Auto) 3.7 % (0.0-3.0) H Basophils (%) (Auto) 0.9 % (0.0-2.0) Sodium Level 135 MMOL/L (136-145) L Potassium Level 5.2 MMOL/L (3.5-5.1) H Chloride Level 104 MMOL/L (98-107) Carbon Dioxide Level 25 MMOL/L (21-32) Anion Gap 6 mmol/L (5-15) Blood Urea Nitrogen 31 mg/dL (7-18) H Creatinine 1.5 MG/DL (0.55-1.30) H Estimat Glomerular Filtration Rate 34.4 mL/min (>60) Glucose Level 289 MG/DL (74-106) #H Calcium Level 8.8 MG/DL (8.5-10.1) Current Medications Medications (Trade) Dose Ordered Sig/Ellen Route PRN Reason Start Time Stop Time Status Last Admin Dose Admin Albuterol/ Ipratropium (Albuterol/ Ipratropium) 3 ml Q2H PRN HHN Shortness of Breath 05/02/17 15:30 05/06/17 17:29 Albuterol/ Ipratropium (Albuterol/ Ipratropium) 3 ml Q4HRT HHN 05/02/17 15:00 05/06/17 18:59 Cefepime HCl 2 gm/ Dextrose 55 ml @ 110 mls/hr Q24H IVPB 05/03/17 03:00 05/08/17 02:59 UNV Dextrose (Dextrose 50%) STAT PRN IV Hypoglycemia 05/03/17 13:30 05/30/17 13:29 Doxycycline Monohydrate (Vibramycin) 100 mg Q12HR@0600,1800 ORAL 05/02/17 18:00 05/07/17 16:29 Heparin Sodium (Porcine) (Heparin 5000 units/ml) 5,000 units EVERY 12 HOURS SUBQ 05/02/17 21:00 05/31/17 20:59 Insulin Aspart (NovoLOG) BEFORE MEALS AND HS SUBQ 05/02/17 16:30 05/30/17 16:29 Insulin Detemir (Levemir) 10 units Q12HR SUBQ 05/02/17 21:00 06/01/17 08:59 Pantoprazole (Protonix) 40 mg DAILY ORAL 05/03/17 09:00 06/01/17 08:59 Sarah Matos M.D. May 02, 2017 14:31
[2017-05-02] MEDS ORDERED: Albuterol/Ipratropium 3ml neb HHN PRN (15:30)
[2017-05-02 16:00] VITALS: BP 155/81
--- NOTE | 2017-05-02 17:25 | Consultation ---
Consult Note Consult Note DATE OF CONSULTATION: 05/02/2017 PULMONARY CONSULTATION CONSULTING PHYSICIAN: Sebastien Hamlin M.D. REQUESTING PHYSICIAN: Jose Manuel Zimmerman M.D. REASON FOR CONSULTATION: Pneumonia, sepsis, and leukocytosis. HISTORY OF PRESENT ILLNESS: The patient is a 71-year-old female with past medical history of coronary artery disease status post bypass surgery, diabetes, hypertension, and CHF with recent exacerbation in December presented to [facility] emergency room for shortness of breath over the last 24 hours. The patient was dyspneic on rest and on exertion. Her shortness of breath has been progressive. It was associated with cough productive of grayish phlegm. The patient had a sister who was sick with cold recently. The patient had a chest x-ray in the emergency room, which showed evidence of bilateral infiltration suspicious of pneumonia. Her white count was significantly elevated to 20,000 suggestive of sepsis and pneumonia. PAST MEDICAL HISTORY: Significant for hypertension, diabetes, coronary artery disease status post CABG, and CHF. PAST SURGICAL HISTORY: Bypass surgery. ALLERGIES: She has no known drug allergy. MEDICATIONS: Reviewed SOCIAL HISTORY: The patient lives at home with sister. Denied using any drugs, tobacco, or alcohol. FAMILY HISTORY: Negative for recurrent infection or immunocompromised condition. REVIEW OF SYSTEMS: A 14-point of system reviewed were all negative apart from the one I mentioned above in my History and Physical. PHYSICAL EXAMINATION: VITAL SIGNS: Temperature 98.5, pulse 59, respirations 18, blood pressure 110/49, and saturation 98% on 4 liters nasal cannula. GENERAL: The patient is an elderly female, obese, lying in bed, awake, alert, oriented, not in distress, coughing. HEENT: Normocephalic and atraumatic. Pupils are reactive to light. Moist oral mucosa. No exudate or thrush. NECK: Supple. No lymphadenopathy. CARDIOVASCULAR: She was tachycardic. S1 and S2 normal. No murmur. LUNGS: She had wheezing at the apex and crackles with diminished breathing sounds at the bases. ABDOMEN: Soft, obese, nontender, and nondistended. Normal bowel sounds. No hepatosplenomegaly. No ascites. EXTREMITIES: She had +1 edema. No cyanosis. No clubbing. SKIN: No rash. No hives. No ulceration. LABORATORY DATA: Showed white count of 20.3, hemoglobin of 12.8, and platelet count of 340. BUN of 23, creatinine of 1.8, and glucose of 362. Urinalysis was negative for infection. IMAGING STUDIES: Chest x-ray showed interstitial catina. ASSESSMENT AND RECOMMENDATION: 1. Probable pneumonia. Patient with dyspnea, abnormal CXR and leukocytosis. I will send sputum culture and screen for influenza. Continue cefepime, doxycycline, and Tamiflu empiric coverage. Pending culture results. 2. Sepsis due to the above with significant leukocytosis. 3. Hypoxemia due to the above. Continue inhalers and oxygen with antibiotics. Monitor chest x-ray. Titrate oxygen as needed. 4. Congestive heart failure with possible exacerbation. Recommend diuresis with daily weight monitor and urine output monitor. Sebastien Hamlin M.D. Sebastien Hamlin MD May 02, 2017 17:25
[2017-05-02] MEDS ORDERED: NS 275ml ONE (17:29)
--- NOTE | 2017-05-02 17:51 | Cardiac Electrophysiology PN ---
[facility] [id number]. [facility] records reviewed. CABG grafts were patent with no target for revascularization. Med Therapy Objective Last 24 Hour Vital Signs Date Time Temp Pulse Resp B/P (MAP) Pulse Ox O2 Delivery O2 Flow Rate FiO2 05/02/17 16:00 97.5 86 20 155/81 99 Nasal Cannula 2.0 05/02/17 15:00 Room Air 05/02/17 15:00 Room Air 05/02/17 12:00 83 05/02/17 12:00 97.8 78 18 128/62 97 Nasal Cannula 2.0 05/02/17 11:34 83 16 98 Room Air 21 05/02/17 11:34 28 05/02/17 11:24 82 16 96 Room Air 21 05/02/17 08:00 98.6 86 19 132/73 96 Nasal Cannula 2.0 05/02/17 08:00 88 05/02/17 06:54 79 16 100 Nasal Cannula 28.0 05/02/17 06:54 28 05/02/17 06:39 77 16 100 Nasal Cannula 2.0 28 05/02/17 06:39 77 16 Nasal Cannula 2.0 28 05/02/17 04:02 89 14 99 Nasal Cannula 28.0 05/02/17 04:00 97.7 99 21 123/72 99 Nasal Cannula 2.0 05/02/17 03:48 87 05/02/17 03:44 84 14 98 Nasal Cannula 2.0 28 05/02/17 03:44 28 05/02/17 00:00 91 05/02/17 00:00 98.4 98 20 118/55 96 Nasal Cannula 2.0 05/01/17 23:32 89 18 99 Nasal Cannula 2.0 28 05/01/17 23:22 28 05/01/17 23:22 88 16 98 Nasal Cannula 2.0 28 05/01/17 23:22 88 16 Nasal Cannula 2.0 28 05/01/17 20:00 97.7 86 18 115/58 100 Nasal Cannula 2.0 05/01/17 19:58 81 16 99 Nasal Cannula 2.0 28 05/01/17 19:48 28 05/01/17 19:48 73 16 Nasal Cannula 2.0 28 05/01/17 19:48 73 16 99 Nasal Cannula 2.0 28 05/01/17 19:33 90 Intake and Output 05/01/17 05/02/17 19:00 07:00 Intake Total 740 ml 355 ml Output Total 950 ml 350 ml Balance -210 ml 5 ml Intake Oral 740 ml 300 ml IV Total 55 ml Output Urine Total 950 ml 350 ml # Voids 5 1 Laboratory Tests Test 05/02/17 03:20 White Blood Count 9.3 K/UL (4.8-10.8) Red Blood Count 3.61 M/UL (4.20-5.40) L Hemoglobin 10.2 G/DL (12.0-16.0) L Hematocrit 31.1 % (37.0-47.0) L Mean Corpuscular Volume 86 FL (80-99) Mean Corpuscular Hemoglobin 28.2 PG (27.0-31.0) Mean Corpuscular Hemoglobin Concent 32.7 G/DL (32.0-36.0) Red Cell Distribution Width 12.6 % (11.6-14.8) Platelet Count 204 K/UL (150-450) Mean Platelet Volume 6.9 FL (6.5-10.1) Neutrophils (%) (Auto) 67.9 % (45.0-75.0) Lymphocytes (%) (Auto) 16.8 % (20.0-45.0) L Monocytes (%) (Auto) 10.7 % (1.0-10.0) H Eosinophils (%) (Auto) 3.7 % (0.0-3.0) H Basophils (%) (Auto) 0.9 % (0.0-2.0) Sodium Level 135 MMOL/L (136-145) L Potassium Level 5.2 MMOL/L (3.5-5.1) H Chloride Level 104 MMOL/L (98-107) Carbon Dioxide Level 25 MMOL/L (21-32) Anion Gap 6 mmol/L (5-15) Blood Urea Nitrogen 31 mg/dL (7-18) H Creatinine 1.5 MG/DL (0.55-1.30) H Estimat Glomerular Filtration Rate 34.4 mL/min (>60) Glucose Level 289 MG/DL (74-106) #H Calcium Level 8.8 MG/DL (8.5-10.1) Microbiology Date/Time Source Procedure Growth Status 04/30/17 02:15 Blood Blood Culture - Preliminary NO GROWTH AFTER 48 HOURS Resulted 04/30/17 02:00 Blood Blood Culture - Preliminary NO GROWTH AFTER 48 HOURS Resulted 04/30/17 16:00 Nasopharynx Influenza Types A,B Antigen (TIAGO) - Final Complete SUSY SHAFER May 02, 2017 17:51
--- NOTE | 2017-05-02 19:14 | Nephrology Progress Note ---
Assessment/Plan Problem List: (1) Diabetes (2) HTN (hypertension) (3) Shortness of breath (4) Renal insufficiency (5) Pneumonia (6) CHF exacerbation (7) Respiratory failure with hypoxia (8) Sepsis Plan Continue current treatment plan Abx per ID Monitor lytes correct prn Renally dose meds, avoid nephrotoxins Monitor intake and output Pulmo and cardio following Strict glycemic control Continue neb treatment PPI daily DVT prophylaxis AM labs Subjective Constitutional: Denies: no symptoms, chills, diaphoresis, fever, malaise, weakness, other HEENT: Denies: no symptoms, eye pain, blurred vision, tearing, double vision, ear pain, ear discharge, nose pain, nose congestion, throat pain, throat swelling, mouth pain, mouth swelling, other Genitourinary: Denies: no symptoms, burning, discharge, frequency, flank pain, hematuria, incontinence, pain, urgency, other Neurologic/Psychiatric: Denies: no symptoms, anxiety, depressed, emotional problems, headache, numbness, paresthesia, pre-existing deficit, seizure, tingling, tremors, weakness, other Subjective In bed, in no apparent distress, denies discomfort, states that she felt some heaviness on her chest earlier, denies cp, complains of itching on her left leg and arms. Objective Objective Last 24 Hour Vital Signs Date Time Temp Pulse Resp B/P (MAP) Pulse Ox O2 Delivery O2 Flow Rate FiO2 05/02/17 16:00 97.5 86 20 155/81 99 Nasal Cannula 2.0 05/02/17 15:00 Room Air 05/02/17 15:00 Room Air 05/02/17 12:00 83 05/02/17 12:00 97.8 78 18 128/62 97 Nasal Cannula 2.0 05/02/17 11:34 83 16 98 Room Air 21 05/02/17 11:34 28 05/02/17 11:24 82 16 96 Room Air 21 05/02/17 08:00 98.6 86 19 132/73 96 Nasal Cannula 2.0 05/02/17 08:00 88 05/02/17 06:54 79 16 100 Nasal Cannula 28.0 05/02/17 06:54 28 05/02/17 06:39 77 16 100 Nasal Cannula 2.0 28 05/02/17 06:39 77 16 Nasal Cannula 2.0 28 05/02/17 04:02 89 14 99 Nasal Cannula 28.0 05/02/17 04:00 97.7 99 21 123/72 99 Nasal Cannula 2.0 05/02/17 03:48 87 05/02/17 03:44 84 14 98 Nasal Cannula 2.0 28 05/02/17 03:44 28 05/02/17 00:00 91 05/02/17 00:00 98.4 98 20 118/55 96 Nasal Cannula 2.0 05/01/17 23:32 89 18 99 Nasal Cannula 2.0 28 05/01/17 23:22 28 05/01/17 23:22 88 16 98 Nasal Cannula 2.0 28 05/01/17 23:22 88 16 Nasal Cannula 2.0 28 05/01/17 20:00 97.7 86 18 115/58 100 Nasal Cannula 2.0 05/01/17 19:58 81 16 99 Nasal Cannula 2.0 28 05/01/17 19:48 28 05/01/17 19:48 73 16 Nasal Cannula 2.0 28 05/01/17 19:48 73 16 99 Nasal Cannula 2.0 28 05/01/17 19:33 90 Intake and Output 05/01/17 05/02/17 19:00 07:00 Intake Total 740 ml 355 ml Output Total 950 ml 350 ml Balance -210 ml 5 ml Intake Oral 740 ml 300 ml IV Total 55 ml Output Urine Total 950 ml 350 ml # Voids 5 1 Laboratory Tests 05/02/17 03:20: White Blood Count 9.3, Red Blood Count 3.61L, Hemoglobin 10.2L, Hematocrit 31.1L , Mean Corpuscular Volume 86, Mean Corpuscular Hemoglobin 28.2, Mean Corpuscular Hemoglobin Concent 32.7, Red Cell Distribution Width 12.6, Platelet Count 204, Mean Platelet Volume 6.9, Neutrophils (%) (Auto) 67.9, Lymphocytes (% ) (Auto) 16.8L, Monocytes (%) (Auto) 10.7H, Eosinophils (%) (Auto) 3.7H, Basophils (%) (Auto) 0.9, Sodium Level 135L, Potassium Level 5.2H, Chloride Level 104, Carbon Dioxide Level 25, Anion Gap 6, Blood Urea Nitrogen 31H, Creatinine 1.5H, Estimat Glomerular Filtration Rate 34.4, Glucose Level 289#H, Calcium Level 8.8 05/02/17 18:20: Troponin I 0.203H Height (Feet): 5 Height (Inches): 3.00 Weight (Pounds): 210 General Appearance: no apparent distress, alert EENT: normal ENT inspection Neck: normal alignment, supple, normal inspection Cardiovascular: normal rate, regular rhythm Respiratory/Chest: normal breath sounds, no respiratory distress Abdomen: soft, no organomegaly Extremities: non-tender, normal inspection Neurologic: alert, oriented x 3, responsive, normal mood/affect Roula Butler N.P. May 02, 2017 19:14
[2017-05-02] MEDS ORDERED: DiphenhydrAMINE 50mg/ml Inj IVP PRN (19:30)
[2017-05-02] MEDS ORDERED: DiphenhydrAMINE 50mg/ml Inj IVP ONE (19:45)
[2017-05-02 20:00] VITALS: BP 139/71
[2017-05-02] MEDS ORDERED: Carvedilol 25mg Tab ORAL SCH (21:00)
[2017-05-02] MEDS ORDERED: Heparin 5000 units/ml inj SUBQ SCH (21:00)
[2017-05-02] MEDS ORDERED: Atorvastatin 80mg tab ORAL SCH (21:00)
--- NOTE | 2017-05-02 22:00 | Consultation ---
DATE OF CONSULTATION: 05/02/2017 CARDIOLOGY CONSULTATION CONSULTING PHYSICIAN: Miller Cao M.D. ATTENDING/REFERRING PHYSICIAN: Jose Manuel Zimmerman M.D. REASON FOR CONSULTATION: Chest pain and shortness of breath. The patient with coronary artery bypass graft. HISTORY OF PRESENT ILLNESS: The patient is a very pleasant 71-year-old lady with history of hypertension, diabetes, coronary artery disease, history of coronary artery bypass graft 15 years ago at [facility] [place]. The patient's most recent cardiac catheterization was with Dr. Kelly at [facility] in [place] that showed patent SHARMA to the LAD, vein graft to the RCA, and SVG jump to marginal branches with no obvious PCI targets. The angiogram from [place] given ischemic MR, acute pulmonary edema was reviewed by Dr. Kelly who suggested vascularization of a large posterolateral branch 2, GOLD STAMPER of RCA, and SVG to marginal branch. The patient has not had any further followup since 07/[address] Kelly in view of her insurance which is currently prospect. The patient was admitted to telemetry floor and today noticed that she was having more shortness of breath. Cardiology consultation was obtained for further evaluation. REVIEW OF SYSTEMS: Performed and was negative other than what was mentioned in history of present illness. PAST MEDICAL HISTORY: As mentioned above. FAMILY HISTORY: Noncontributory. SOCIAL HISTORY: She lives at home. Does not smoke or drink alcohol. PHYSICAL EXAMINATION: VITAL SIGNS: Blood pressure is 155/81, pulse 86, respirations 20, temperature 97.5. HEAD AND NECK: Shows no JVD. LUNGS: Clear. CARDIOVASCULAR: Shows regular S1, S2 with no gallop or murmur. Sternotomy is intact. ABDOMEN: Soft. EXTREMITIES: No pitting edema. LABORATORY DATA: White count initially was 20,000 and was down to 9.2, hemoglobin 10.2, hematocrit 31.1, and platelet count 204,000. Sodium 135, potassium 5.2, BUN of 31, creatinine 1.5, and glucose of 289. INR is 0.9. EKG on admission showed atrial fibrillation with rapid ventricular response. Followup EKG today showed sinus rhythm with LVH, repolarization abnormality, and deeply inverted T-waves in the lateral leads. The patient's records at [facility] were also reviewed. ASSESSMENT AND PLAN: 1. Chest pain, anterior ST depression, and the patient with history of coronary artery bypass graft. Again, the patient's cardiac catheterization at [facility] reviewed and the patient's grafts with left internal mammary artery to the left anterior descending coronary artery was patent and the vein graft to the right coronary artery was patent as well. The vein grafts to marginal branches were also patent with no obvious percutaneous coronary intervention targets. We will treat the patient medically at this time and completely rule out myocardial infarction protocol. In the meantime, start the patient on aspirin, Lipitor, Imdur, and beta-feliciano. 2. Hypertension. Resume lisinopril 10 mg daily, Coreg 6.25 mg b.i.d., and Lasix 20 mg daily. 3. Hyperlipidemia, on Lipitor. 4. Diabetes, on insulin. 5. Pneumonia and sepsis with white count of 20,000, on IV antibiotic per Dr. Matos. 6. Renal failure. Thank you very much, Dr. Zimmerman, for allowing me to participate in the care of this patient. Please do not hesitate to contact me if you have any questions regarding my evaluation. Jax Ricketts JOB#: [id number] CC:
[2017-05-03] VITALS: BP 125/72
[2017-05-03] MEDS ORDERED: Cefepime HCl 2 GM in D5W 55 ML IVPB SCH ×2
[2017-05-03] MEDS: Albuterol/Ipratropium 3ml neb HHN SCH ×6 (00:16→23:00)
[2017-05-03 04:00] VITALS: BP 114/55
[2017-05-03] MEDS ORDERED: DiphenhydrAMINE 50mg/ml Inj IVP PRN (07:30)
[2017-05-03] MEDS ORDERED: Albuterol/Ipratropium 3ml neb HHN PRN (07:30)
[2017-05-03 08:00] VITALS: BP 121/63
[2017-05-03] MEDS ORDERED: Imdur 30mg tab ORAL SCH (09:00)
[2017-05-03] MEDS ORDERED: Aspirin EC 81mg tab ORAL SCH (09:00)
[2017-05-03] MEDS: Imdur 30mg tab ORAL SCH (09:48)
[2017-05-03] MEDS: Aspirin EC 81mg tab ORAL SCH (09:48)
[2017-05-03] MEDS: Carvedilol 25mg Tab ORAL SCH ×2 (09:50→20:42)
[2017-05-03] MEDS: Heparin 5000 units/ml inj SUBQ SCH ×2 (09:51→20:43)
--- NOTE | 2017-05-03 10:01 | Pulmonology Progress Note ---
Assessment/Plan Assessment/Plan ASSESSMENT AND RECOMMENDATION: 1. Doubt pneumonia. Patient with dyspnea, abnormal CXR and leukocytosis; however CXR shows pulmonary edema. Await sputum culture and screen for influenza. Continue cefepime, doxycycline, and Tamiflu empiric coverage. 2. Hypoxemia. Continue inhalers and oxygen with antibiotics. Monitor chest x- ray. Titrate oxygen as needed. 3. Congestive heart failure with possible exacerbation. Recommend diuresis. Subjective Interval Events: Much better; back on tele now Constitutional: Reports: other - itching HEENT: Repors: no symptoms Respiratory: Reports: no symptoms Cardiovascular: Reports: no symptoms Gastrointestinal/Abdominal: Reports: no symptoms Genitourinary: Reports: no symptoms Allergies: Coded Allergies: No Known Allergies (Unverified , 04/30/17) Objective Last 24 Hour Vital Signs Date Time Temp Pulse Resp B/P (MAP) Pulse Ox O2 Delivery O2 Flow Rate FiO2 05/03/17 09:50 79 121/63 05/03/17 09:48 119/66 05/03/17 08:47 Nasal Cannula 2.0 28 05/03/17 08:45 97 Nasal Cannula 2.0 28 05/03/17 07:53 Nasal Cannula 2.0 05/03/17 07:49 Nasal Cannula 2.0 05/03/17 04:28 74 20 Nasal Cannula 2.0 28 05/03/17 04:00 79 05/03/17 04:00 98.2 80 20 114/55 97 05/03/17 03:45 74 20 99 Nasal Cannula 2.0 28 05/03/17 03:30 70 20 96 Nasal Cannula 2.0 28 05/03/17 00:00 79 05/03/17 00:00 95 Nasal Cannula 2.0 28 05/03/17 00:00 Nasal Cannula 2.0 28 05/03/17 00:00 82 20 100 Room Air 21 05/03/17 00:00 98.0 81 18 125/72 98 05/03/17 00:00 76 20 94 Room Air 21 05/02/17 20:55 81 134/70 05/02/17 20:00 82 05/02/17 20:00 97.9 86 20 139/71 97 05/02/17 19:45 86 20 99 Room Air 21 05/02/17 19:30 80 20 97 Room Air 21 05/02/17 16:00 97.5 86 20 155/81 99 Nasal Cannula 2.0 05/02/17 15:00 Room Air 05/02/17 15:00 Room Air 05/02/17 12:00 83 05/02/17 12:00 97.8 78 18 128/62 97 Nasal Cannula 2.0 05/02/17 11:34 83 16 98 Room Air 21 05/02/17 11:34 28 05/02/17 11:24 82 16 96 Room Air 21 Intake and Output 05/02/17 05/03/17 19:00 07:00 Intake Total 730 ml 240 ml Output Total 1100 ml Balance -370 ml 240 ml Intake Oral 730 ml 240 ml Output Urine Total 1100 ml # Voids 5 # Bowel Movements 2 General Appearance: no acute distress Respiratory/Chest: chest wall non-tender, lungs clear Cardiovascular: normal peripheral pulses, normal rate Abdomen: normal bowel sounds, soft, non tender Microbiology Date/Time Source Procedure Growth Status 04/30/17 16:00 Nasopharynx Influenza Types A,B Antigen (TIAGO) - Final Complete Laboratory Tests 05/02/17 18:20: Troponin I 0.203H 05/03/17 03:00: Troponin I 0.230H Current Medications Medications (Trade) Dose Ordered Sig/Ellen Route PRN Reason Start Time Stop Time Status Last Admin Dose Admin Albuterol/ Ipratropium (Albuterol/ Ipratropium) 3 ml Q2H PRN N Shortness of Breath 05/03/17 07:30 05/06/17 17:29 Albuterol/ Ipratropium (Albuterol/ Ipratropium) 3 ml Q4HRT HHN 05/03/17 11:00 05/06/17 18:59 Aspirin (Ecotrin) 81 mg DAILY ORAL 05/03/17 09:00 06/02/17 08:59 05/03/17 09:48 Atorvastatin Calcium (Lipitor) 80 mg BEDTIME ORAL 05/03/17 21:00 06/01/17 20:59 Carvedilol (Coreg) 25 mg EVERY 12 HOURS ORAL 05/03/17 09:00 06/01/17 20:59 05/03/17 09:50 Cefepime HCl 2 gm/ Dextrose 55 ml @ 110 mls/hr Q24H IVPB 05/04/17 00:00 05/08/17 00:00 Dextrose (Dextrose 50%) STAT PRN IV Hypoglycemia 05/03/17 13:30 05/30/17 13:29 Diphenhydramine HCl (Benadryl) 25 mg Q6H PRN IVP Itching 05/03/17 07:30 06/01/17 19:29 Doxycycline Monohydrate (Vibramycin) 100 mg Q12HR@0600,1800 ORAL 05/03/17 18:00 05/07/17 16:29 Heparin Sodium (Porcine) (Heparin 5000 units/ml) 5,000 units EVERY 12 HOURS SUBQ 05/03/17 09:00 05/31/17 20:59 05/03/17 09:51 Insulin Aspart (NovoLOG) BEFORE MEALS AND HS SUBQ 05/03/17 11:30 05/30/17 16:29 Insulin Detemir (Levemir) 10 units Q12HR SUBQ 05/03/17 09:00 06/01/17 08:59 Isosorbide Mononitrate (Imdur) 30 mg DAILY ORAL 05/03/17 09:00 06/02/17 08:59 05/03/17 09:48 Pantoprazole (Protonix) 40 mg DAILY ORAL 05/03/17 09:00 06/01/17 08:59 05/03/17 09:48 Sebastien Hamlin MD May 03, 2017 10:01
[2017-05-03] MEDS: Levemir Flexpen SUBQ SCH ×2 (10:15→20:44)
[2017-05-03] MEDS: NovoLOG Insulin Flexpen SUBQ SCH ×3 (12:20→20:46)
--- NOTE | 2017-05-03 17:32 | Nephrology Progress Note ---
Assessment/Plan Problem List: (1) Diabetes (2) HTN (hypertension) (3) Shortness of breath (4) Renal insufficiency (5) Pneumonia (6) CHF exacerbation (7) Respiratory failure with hypoxia (8) Sepsis Plan Continue current treatment plan Abx per ID Monitor lytes correct prn Renally dose meds, avoid nephrotoxins Monitor intake and output Pulmo and cardio following Strict glycemic control Continue neb treatment PPI daily DVT prophylaxis AM labs Subjective Constitutional: Denies: no symptoms, chills, diaphoresis, fever, malaise, weakness, other HEENT: Denies: no symptoms, eye pain, blurred vision, tearing, double vision, ear pain, ear discharge, nose pain, nose congestion, throat pain, throat swelling, mouth pain, mouth swelling, other Genitourinary: Denies: no symptoms, burning, discharge, frequency, flank pain, hematuria, incontinence, pain, urgency, other Neurologic/Psychiatric: Denies: no symptoms, anxiety, depressed, emotional problems, headache, numbness, paresthesia, pre-existing deficit, seizure, tingling, tremors, weakness, other Subjective In bed, in no apparent distress, denies discomfort, no complaints voiced at this time. Objective Objective Last 24 Hour Vital Signs Date Time Temp Pulse Resp B/P (MAP) Pulse Ox O2 Delivery O2 Flow Rate FiO2 05/03/17 14:33 64 18 100 Nasal Cannula 2.0 05/03/17 14:23 70 18 100 Nasal Cannula 2.0 05/03/17 11:43 70 18 100 Nasal Cannula 2.0 05/03/17 11:33 75 18 99 Nasal Cannula 2.0 05/03/17 11:23 75 18 99 Nasal Cannula 2.0 05/03/17 09:50 79 121/63 05/03/17 09:48 119/66 05/03/17 08:47 Nasal Cannula 2.0 28 05/03/17 08:45 97 Nasal Cannula 2.0 28 05/03/17 08:00 96.6 79 18 121/63 97 05/03/17 07:53 Nasal Cannula 2.0 05/03/17 07:49 Nasal Cannula 2.0 05/03/17 04:28 74 20 Nasal Cannula 2.0 28 05/03/17 04:00 79 05/03/17 04:00 98.2 80 20 114/55 97 05/03/17 03:45 74 20 99 Nasal Cannula 2.0 28 05/03/17 03:30 70 20 96 Nasal Cannula 2.0 28 05/03/17 00:00 79 05/03/17 00:00 95 Nasal Cannula 2.0 28 05/03/17 00:00 Nasal Cannula 2.0 28 05/03/17 00:00 82 20 100 Room Air 21 05/03/17 00:00 98.0 81 18 125/72 98 05/03/17 00:00 76 20 94 Room Air 21 05/02/17 20:55 81 134/70 05/02/17 20:00 82 05/02/17 20:00 97.9 86 20 139/71 97 05/02/17 19:45 86 20 99 Room Air 21 05/02/17 19:30 80 20 97 Room Air 21 Intake and Output 05/02/17 05/03/17 19:00 07:00 Intake Total 730 ml 240 ml Output Total 1100 ml Balance -370 ml 240 ml Intake Oral 730 ml 240 ml Output Urine Total 1100 ml # Voids 5 # Bowel Movements 2 Laboratory Tests 05/02/17 18:20: Troponin I 0.203H 05/03/17 03:00: Troponin I 0.230H Height (Feet): 5 Height (Inches): 3.00 Weight (Pounds): 168 General Appearance: no apparent distress, alert EENT: normal ENT inspection Neck: normal alignment, supple Cardiovascular: normal rate, regular rhythm, no JVD Respiratory/Chest: normal breath sounds, no respiratory distress Abdomen: soft, no organomegaly Extremities: non-tender, normal inspection, no calf tenderness Neurologic: alert, oriented x 3, responsive, normal mood/affect Roula Butler N.P. May 03, 2017 17:32
--- NOTE | 2017-05-03 19:46 | Infectious Diseases Prog Note ---
Assessment/Plan Problems: (1) Pneumonia Assessment & Plan: with significant infiltration and leukocytosis, sputum culture is not collected yet , screening for influenza is negative , continue cefepime , doxycycline for 7 days . (2) Sepsis Assessment & Plan: due to the above, blood culture remains negative , continue cefepime with doxycycline empiric coverage (3) Respiratory failure with hypoxia Assessment & Plan: due to the above, continue inhalers and oxygen with antibiotics , monitor CXR (4) CHF exacerbation Assessment & Plan: continue diuresis with daily weight monitor and urine output, consult cardiology (5) Renal insufficiency Assessment & Plan: avoid nephrotoxic meds, follow renal function with urine output Subjective Constitutional: Reports: no symptoms HEENT: Reports: no symptoms Respiratory: Reports: no symptoms Breasts: Reports: no symptoms Cardiovascular: Reports: no symptoms Gastrointestinal/Abdominal: Reports: no symptoms Genitourinary: Reports: no symptoms Neurologic: Reports: no symptoms Psychiatric: Reports: no symptoms Skin: Reports: no symptoms Endocrine: Reports: no symptoms Hematologic: Reports: no symptoms Musculoskeletal: Reports: no symptoms Allergies: Coded Allergies: No Known Allergies (Unverified , 04/30/17) Objective Vital Signs Last 24 Hour Vital Signs Date Time Temp Pulse Resp B/P (MAP) Pulse Ox O2 Delivery O2 Flow Rate FiO2 05/03/17 19:27 76 20 99 Nasal Cannula 2.0 28 05/03/17 19:26 96 Nasal Cannula 2.0 28 05/03/17 19:26 Nasal Cannula 2.0 28 05/03/17 19:26 72 20 96 Nasal Cannula 2.0 28 05/03/17 14:33 64 18 100 Nasal Cannula 2.0 05/03/17 14:23 70 18 100 Nasal Cannula 2.0 05/03/17 11:43 70 18 100 Nasal Cannula 2.0 05/03/17 11:33 75 18 99 Nasal Cannula 2.0 05/03/17 11:23 75 18 99 Nasal Cannula 2.0 05/03/17 09:50 79 121/63 05/03/17 09:48 119/66 05/03/17 08:47 Nasal Cannula 2.0 28 05/03/17 08:45 97 Nasal Cannula 2.0 28 05/03/17 08:00 96.6 79 18 121/63 97 05/03/17 07:53 Nasal Cannula 2.0 05/03/17 07:49 Nasal Cannula 2.0 05/03/17 04:28 74 20 Nasal Cannula 2.0 28 05/03/17 04:00 79 05/03/17 04:00 98.2 80 20 114/55 97 05/03/17 03:45 74 20 99 Nasal Cannula 2.0 28 05/03/17 03:30 70 20 96 Nasal Cannula 2.0 28 05/03/17 00:00 79 05/03/17 00:00 95 Nasal Cannula 2.0 28 05/03/17 00:00 Nasal Cannula 2.0 28 05/03/17 00:00 82 20 100 Room Air 21 05/03/17 00:00 98.0 81 18 125/72 98 05/03/17 00:00 76 20 94 Room Air 21 05/02/17 20:55 81 134/70 05/02/17 20:00 82 05/02/17 20:00 97.9 86 20 139/71 97 Height (Feet): 5 Height (Inches): 3.00 Weight (Pounds): 168 General Appearance: WD/WN, no acute distress HEENT: normocephalic, atraumatic, anicteric, mucous membranes moist, PERRL Respiratory/Chest: chest wall non-tender, lungs clear, normal breath sounds, no respiratory distress, no accessory muscle use, decreased breath sounds Cardiovascular: normal peripheral pulses, normal rate, regular rhythm, no gallop/murmur, no JVD Abdomen: normal bowel sounds, soft, non tender, no organomegaly, non distended , no mass, no scars Genitourinary: normal external genitalia Extremities: no cyanosis, no clubbing Skin: no rash, no lesions, no ulcers Neurologic/Psychiatric: alert, oriented x 3, responsive Laboratory Tests Test 05/03/17 03:00 Troponin I 0.230 ng/mL (0.000-0.056) Current Medications Medications (Trade) Dose Ordered Sig/Ellen Route PRN Reason Start Time Stop Time Status Last Admin Dose Admin Albuterol/ Ipratropium (Albuterol/ Ipratropium) 3 ml Q2H PRN HHN Shortness of Breath 05/03/17 07:30 05/06/17 17:29 Albuterol/ Ipratropium (Albuterol/ Ipratropium) 3 ml Q4HRT HHN 05/03/17 11:00 05/06/17 18:59 05/03/17 19:24 Aspirin (Ecotrin) 81 mg DAILY ORAL 05/03/17 09:00 06/02/17 08:59 05/03/17 09:48 Atorvastatin Calcium (Lipitor) 80 mg BEDTIME ORAL 05/03/17 21:00 06/01/17 20:59 Carvedilol (Coreg) 25 mg EVERY 12 HOURS ORAL 05/03/17 09:00 06/01/17 20:59 05/03/17 09:50 Cefepime HCl 2 gm/ Dextrose 55 ml @ 110 mls/hr Q24H IVPB 05/04/17 00:00 05/08/17 00:00 Dextrose (Dextrose 50%) STAT PRN IV Hypoglycemia 05/03/17 13:30 05/30/17 13:29 Diphenhydramine HCl (Benadryl) 25 mg Q6H PRN IVP Itching 05/03/17 07:30 06/01/17 19:29 Doxycycline Monohydrate (Vibramycin) 100 mg Q12HR@0600,1800 ORAL 05/03/17 18:00 05/07/17 16:29 05/03/17 17:03 Heparin Sodium (Porcine) (Heparin 5000 units/ml) 5,000 units EVERY 12 HOURS SUBQ 05/03/17 09:00 05/31/17 20:59 05/03/17 09:51 Insulin Aspart (NovoLOG) BEFORE MEALS AND HS SUBQ 05/03/17 11:30 05/30/17 16:29 05/03/17 16:58 Insulin Detemir (Levemir) 10 units Q12HR SUBQ 05/03/17 09:00 06/01/17 08:59 05/03/17 10:15 Isosorbide Mononitrate (Imdur) 30 mg DAILY ORAL 05/03/17 09:00 06/02/17 08:59 05/03/17 09:48 Pantoprazole (Protonix) 40 mg DAILY ORAL 05/03/17 09:00 06/01/17 08:59 05/03/17 09:48 Sarah Matos M.D. May 03, 2017 19:46
[2017-05-03 20:00] VITALS: BP 127/68
[2017-05-03] MEDS ORDERED: Atorvastatin 80mg tab ORAL SCH (21:00)
[2017-05-04] MEDS ORDERED: Cefepime HCl 2 GM in D5W 55 ML IVPB SCH ×2
[2017-05-04 00:31] VITALS: BP 109/56
[2017-05-04] MEDS: Albuterol/Ipratropium 3ml neb HHN SCH ×4 (03:44→14:49)
[2017-05-04 04:11] VITALS: BP 107/58
[2017-05-04] MEDS: NovoLOG Insulin Flexpen SUBQ SCH ×3 (07:05→16:15)
[2017-05-04 07:58] LABS: BASOPHILS % (AUTO) 1.1 % (0.0-2.0); EOSINOPHILS % (AUTO) 7.2 % (0.0-3.0); HEMATOCRIT 29.8 % (37.0-47.0); HEMOGLOBIN 9.9 G/DL (12.0-16.0); MEAN CORPUSCULAR VOLUME 85 FL (80-99); MONOCYTES % (AUTO) 8.6 % (1.0-10.0); PLATELET COUNT 210 K/UL (150-450); RED CELL DISTRIBUTION WIDTH 12.4 % (11.6-14.8)
[2017-05-04 08:37] LABS: ANION GAP 10 mmol/L (5-15); BLOOD UREA NITROGEN 33 mg/dL (7-18); CALCIUM 9.2 MG/DL (8.5-10.1); CARBON DIOXIDE 23 MMOL/L (21-32); CHLORIDE 105 MMOL/L (98-107); CREATININE 1.2 MG/DL (0.55-1.30); POTASSIUM 4.6 MMOL/L (3.5-5.1); SODIUM 138 MMOL/L (136-145)
[2017-05-04] MEDS: Aspirin EC 81mg tab ORAL SCH (08:49)
[2017-05-04] MEDS: Carvedilol 25mg Tab ORAL SCH (08:49)
[2017-05-04] MEDS: Imdur 30mg tab ORAL SCH (08:49)
[2017-05-04] MEDS: Levemir Flexpen SUBQ SCH (08:55)
[2017-05-04] MEDS: Heparin 5000 units/ml inj SUBQ SCH (08:56)
[2017-05-04 09:00] VITALS: BP 144/61
--- NOTE | 2017-05-04 09:59 | Cardiac Electrophysiology PN ---
Assessment/Plan Assessment/Plan 1. Chest pain, anterior ST depression, and the patient with history of coronary artery bypass graft. Again, the patient's cardiac catheterization at [facility] reviewed and the patient's grafts with left internal mammary artery to the left anterior descending coronary artery was patent and the vein graft to the right coronary artery was patent as well. The vein grafts to marginal branches were also patent with no obvious percutaneous coronary intervention targets. We will treat the patient medically at this time and completely rule out myocardial infarction protocol. In the meantime, start the patient on aspirin, Lipitor, Imdur, and beta-feliciano. Hold off on stress test in view of her sepsis and risk of worsening renal failure in view of her known anatomy. 2. Troponin leak. Likely due to renal failure. 3. Hypertension. Resume lisinopril 10 mg daily, Coreg 6.25 mg b.i.d. and Lasix 20 mg daily. 4. Hyperlipidemia, on Lipitor. 5. Diabetes, on insulin. 6. Pneumonia and sepsis with white count of 20,000, on IV antibiotic per Dr. Matos. 6. Renal failure. DIAN RN Subjective Subjective No chest pain or SOB. Remained in SR. Objective Last 24 Hour Vital Signs Date Time Temp Pulse Resp B/P (MAP) Pulse Ox O2 Delivery O2 Flow Rate FiO2 05/04/17 09:00 97.1 72 18 144/61 97 05/04/17 08:49 144/61 05/04/17 08:49 72 144/61 05/04/17 07:39 76 20 99 Room Air 21 05/04/17 07:30 74 20 98 Room Air 21 05/04/17 07:30 98 Room Air 21 05/04/17 07:30 Room Air 21 05/04/17 04:11 97.0 61 20 107/58 97 05/04/17 04:00 67 05/04/17 03:45 80 20 99 Nasal Cannula 2.0 28 05/04/17 03:44 74 20 95 Nasal Cannula 2.0 28 05/04/17 00:31 96.9 71 22 109/56 96 Room Air 05/04/17 00:00 73 05/04/17 00:00 Nasal Cannula 2.0 28 05/04/17 00:00 Nasal Cannula 2.0 28 05/03/17 20:42 75 127/68 05/03/17 20:00 96.0 75 20 127/68 98 Room Air 05/03/17 19:27 76 20 99 Nasal Cannula 2.0 28 05/03/17 19:26 96 Nasal Cannula 2.0 28 05/03/17 19:26 Nasal Cannula 2.0 28 05/03/17 19:26 72 20 96 Nasal Cannula 2.0 28 05/03/17 16:00 69 05/03/17 14:33 64 18 100 Nasal Cannula 2.0 05/03/17 14:23 70 18 100 Nasal Cannula 2.0 05/03/17 11:43 70 18 100 Nasal Cannula 2.0 05/03/17 11:33 75 18 99 Nasal Cannula 2.0 05/03/17 11:23 75 18 99 Nasal Cannula 2.0 Intake and Output 05/03/17 05/04/17 19:00 07:00 Intake Total 720 ml Balance 720 ml Intake Oral 720 ml # Voids 3 2 Laboratory Tests Test 05/04/17 07:30 White Blood Count 6.0 K/UL (4.8-10.8) Red Blood Count 3.50 M/UL (4.20-5.40) L Hemoglobin 9.9 G/DL (12.0-16.0) L Hematocrit 29.8 % (37.0-47.0) L Mean Corpuscular Volume 85 FL (80-99) Mean Corpuscular Hemoglobin 28.2 PG (27.0-31.0) Mean Corpuscular Hemoglobin Concent 33.2 G/DL (32.0-36.0) Red Cell Distribution Width 12.4 % (11.6-14.8) Platelet Count 210 K/UL (150-450) Mean Platelet Volume 6.8 FL (6.5-10.1) Neutrophils (%) (Auto) 59.0 % (45.0-75.0) Lymphocytes (%) (Auto) 24.0 % (20.0-45.0) Monocytes (%) (Auto) 8.6 % (1.0-10.0) Eosinophils (%) (Auto) 7.2 % (0.0-3.0) H Basophils (%) (Auto) 1.1 % (0.0-2.0) Sodium Level 138 MMOL/L (136-145) Potassium Level 4.6 MMOL/L (3.5-5.1) Chloride Level 105 MMOL/L (98-107) Carbon Dioxide Level 23 MMOL/L (21-32) Anion Gap 10 mmol/L (5-15) Blood Urea Nitrogen 33 mg/dL (7-18) H Creatinine 1.2 MG/DL (0.55-1.30) Estimat Glomerular Filtration Rate 44.5 mL/min (>60) Glucose Level 198 MG/DL (74-106) H Calcium Level 9.2 MG/DL (8.5-10.1) Troponin I 0.098 ng/mL (0.000-0.056) Objective HEAD AND NECK: no JVD. LUNGS: Clear. CARDIOVASCULAR: Regular S1, S2 with no gallop or murmur. Sternotomy is intact. ABDOMEN: Soft. EXTREMITIES: No pitting edema. SUSY SHAFER May 04, 2017 09:59
--- NOTE | 2017-05-04 11:59 | Cardiology Report ---
APPROVED REPORT EXAM: Two-dimensional and M-mode echocardiogram with Doppler and color Doppler. INDICATION Chest Pain M-Mode DIMENSIONS IVSd1.5 (0.7-1.1cm)Left Atrium (MM)3.6 (1.6-4.0cm) LVDd3.8 (3.5-5.6cm)Aortic Root2.4 (2.0-3.7cm) PWd1.7 (0.7-1.1cm)Aortic Cusp Exc.1.6 (1.5-2.0cm) LVDs2.8 (2.5-4.0cm) PWs1.7 cm Technically difficult study due to poor acoustic windows. Study quality precludes accurate assessment of regional wall motion. Normal left ventricular chamber size. Global left ventricular hypokinesis. Left ventricular ejection fraction estimated to be 50 %. Mild left ventricular hypertrophy. Anterior Echo-free space, may be due to pericardial fat or effusion. All other cardiac chamber sizes are within normal limits. Mild focal aortic valve sclerosis with adequate cusp excursion. Mildly thickened mitral valve leaflets with normal excursion. Mild mitral annulus and aortic root calcification. Pulmonic valve not well visualized. Normal tricuspid valve structure. IVC dilated at 2.0 cm without physiologic collapse suggestive of increased RA pressure. A color flow and spectral Doppler study was performed and revealed: Mild to moderate aortic regurgitation. Mild to moderate mitral regurgitation. Mitral inflow velocities indicates possible pseudo normalization pattern implying moderately elevated left atrial pressure (Grade II ). Mild tricuspid regurgitation. Tricuspid systolic velocities suggests peak right ventricular systolic pressure of 42 mmHg, consistent with mild pulmonary hypertension. Trace pulmonic regurgitation present.
[2017-05-04 12:00] VITALS: BP 139/63
--- NOTE | 2017-05-04 12:19 | Pulmonology Progress Note ---
Assessment/Plan Assessment/Plan ASSESSMENT AND RECOMMENDATION: 1. Doubt pneumonia. Patient with dyspnea, abnormal CXR and leukocytosis; however CXR shows pulmonary edema. Await sputum culture and screen for influenza. Continue cefepime, doxycycline, and Tamiflu empiric coverage. 2. Hypoxemia. Continue inhalers and oxygen with antibiotics. Monitor chest x- ray. Titrate oxygen as needed. 3. Congestive heart failure with possible exacerbation. Recommend diuresis. Subjective Interval Events: feeling better. Denies Chest pain Constitutional: Reports: no symptoms HEENT: Repors: no symptoms Respiratory: Reports: no symptoms Cardiovascular: Reports: no symptoms Allergies: Coded Allergies: No Known Allergies (Unverified , 04/30/17) Objective Last 24 Hour Vital Signs Date Time Temp Pulse Resp B/P (MAP) Pulse Ox O2 Delivery O2 Flow Rate FiO2 05/04/17 10:57 76 18 99 Room Air 21 05/04/17 10:46 75 20 97 Room Air 21 05/04/17 09:00 97.1 72 18 144/61 97 05/04/17 08:49 144/61 05/04/17 08:49 72 144/61 05/04/17 07:39 76 20 99 Room Air 21 05/04/17 07:30 74 20 98 Room Air 21 05/04/17 07:30 98 Room Air 21 05/04/17 07:30 Room Air 21 05/04/17 04:11 97.0 61 20 107/58 97 05/04/17 04:00 67 05/04/17 03:45 80 20 99 Nasal Cannula 2.0 28 05/04/17 03:44 74 20 95 Nasal Cannula 2.0 05/04/17 00:31 96.9 71 22 109/56 96 Room Air 05/04/17 00:00 73 05/04/17 00:00 Nasal Cannula 2.0 28 05/04/17 00:00 Nasal Cannula 2.0 28 05/03/17 20:42 75 127/68 05/03/17 20:00 96.0 75 20 127/68 98 Room Air 05/03/17 19:27 76 20 99 Nasal Cannula 2.0 28 05/03/17 19:26 96 Nasal Cannula 2.0 28 05/03/17 19:26 Nasal Cannula 2.0 28 05/03/17 19:26 72 20 96 Nasal Cannula 2.0 28 05/03/17 16:00 69 05/03/17 14:33 64 18 100 Nasal Cannula 2.0 05/03/17 14:23 70 18 100 Nasal Cannula 2.0 Intake and Output 05/03/17 05/04/17 19:00 07:00 Intake Total 720 ml Balance 720 ml Intake Oral 720 ml # Voids 3 2 General Appearance: no acute distress HEENT: normocephalic Respiratory/Chest: chest wall non-tender, lungs clear Cardiovascular: normal peripheral pulses, normal rate Abdomen: normal bowel sounds, soft, non tender Laboratory Tests 05/04/17 07:30: White Blood Count 6.0, Red Blood Count 3.50L, Hemoglobin 9.9L, Hematocrit 29.8L , Mean Corpuscular Volume 85, Mean Corpuscular Hemoglobin 28.2, Mean Corpuscular Hemoglobin Concent 33.2, Red Cell Distribution Width 12.4, Platelet Count 210, Mean Platelet Volume 6.8, Neutrophils (%) (Auto) 59.0, Lymphocytes (% ) (Auto) 24.0, Monocytes (%) (Auto) 8.6, Eosinophils (%) (Auto) 7.2H, Basophils (%) (Auto) 1.1, Sodium Level 138, Potassium Level 4.6, Chloride Level 105, Carbon Dioxide Level 23, Anion Gap 10, Blood Urea Nitrogen 33H, Creatinine 1.2, Estimat Glomerular Filtration Rate 44.5, Glucose Level 198H, Calcium Level 9.2, Troponin I 0.098H Current Medications Medications (Trade) Dose Ordered Sig/Ellen Route PRN Reason Start Time Stop Time Status Last Admin Dose Admin Albuterol/ Ipratropium (Albuterol/ Ipratropium) 3 ml Q2H PRN N Shortness of Breath 05/03/17 07:30 05/06/17 17:29 Albuterol/ Ipratropium (Albuterol/ Ipratropium) 3 ml Q4HRT HHN 05/03/17 11:00 05/06/17 18:59 05/04/17 10:46 Aspirin (Ecotrin) 81 mg DAILY ORAL 05/03/17 09:00 06/02/17 08:59 05/04/17 08:49 Atorvastatin Calcium (Lipitor) 80 mg BEDTIME ORAL 05/03/17 21:00 06/01/17 20:59 05/03/17 20:42 Carvedilol (Coreg) 25 mg EVERY 12 HOURS ORAL 05/03/17 09:00 06/01/17 20:59 05/04/17 08:49 Cefepime HCl 2 gm/ Dextrose 55 ml @ 110 mls/hr Q24H IVPB 05/04/17 00:00 05/08/17 00:00 05/04/17 00:00 Dextrose (Dextrose 50%) STAT PRN IV Hypoglycemia 05/03/17 13:30 05/30/17 13:29 Diphenhydramine HCl (Benadryl) 25 mg Q6H PRN IVP Itching 05/03/17 07:30 06/01/17 19:29 05/03/17 20:42 Doxycycline Monohydrate (Vibramycin) 100 mg Q12HR@0600,1800 ORAL 05/03/17 18:00 05/07/17 16:29 05/04/17 07:04 Heparin Sodium (Porcine) (Heparin 5000 units/ml) 5,000 units EVERY 12 HOURS SUBQ 05/03/17 09:00 05/31/17 20:59 05/04/17 08:56 Insulin Aspart (NovoLOG) BEFORE MEALS AND HS SUBQ 05/03/17 11:30 05/30/17 16:29 05/04/17 12:12 Insulin Detemir (Levemir) 10 units Q12HR SUBQ 05/03/17 09:00 06/01/17 08:59 05/04/17 08:55 Isosorbide Mononitrate (Imdur) 30 mg DAILY ORAL 05/03/17 09:00 06/02/17 08:59 05/04/17 08:49 Pantoprazole (Protonix) 40 mg DAILY ORAL 05/03/17 09:00 06/01/17 08:59 05/04/17 08:57 Sebastien Hamlin MD May 04, 2017 12:19
--- NOTE | 2017-05-04 15:06 | Infectious Diseases Prog Note ---
Assessment/Plan Problems: (1) Pneumonia Assessment & Plan: with significant infiltration and leukocytosis, sputum culture is not collected yet , screening for influenza is negative , continue cefepime , doxycycline for 7 days . (2) Sepsis Assessment & Plan: due to the above, blood culture remains negative , continue cefepime with doxycycline empiric coverage (3) Respiratory failure with hypoxia Assessment & Plan: due to the above, continue inhalers and oxygen with antibiotics , monitor CXR (4) CHF exacerbation Assessment & Plan: continue diuresis with daily weight monitor and urine output, consult cardiology (5) Renal insufficiency Assessment & Plan: avoid nephrotoxic meds, follow renal function with urine output Subjective Constitutional: Reports: no symptoms HEENT: Reports: no symptoms Respiratory: Reports: productive cough Breasts: Reports: no symptoms Cardiovascular: Reports: no symptoms Gastrointestinal/Abdominal: Reports: no symptoms Genitourinary: Reports: no symptoms Neurologic: Reports: no symptoms Psychiatric: Reports: no symptoms Skin: Reports: no symptoms Endocrine: Reports: no symptoms Hematologic: Reports: no symptoms Musculoskeletal: Reports: no symptoms Allergies: Coded Allergies: No Known Allergies (Unverified , 04/30/17) Objective Vital Signs Last 24 Hour Vital Signs Date Time Temp Pulse Resp B/P (MAP) Pulse Ox O2 Delivery O2 Flow Rate FiO2 05/04/17 14:59 74 18 99 Room Air 21 05/04/17 14:49 75 20 98 Room Air 21 05/04/17 12:00 74 05/04/17 12:00 96.1 72 18 139/63 100 05/04/17 10:57 76 18 99 Room Air 21 05/04/17 10:46 75 20 97 Room Air 21 05/04/17 09:00 97.1 72 18 144/61 97 05/04/17 08:49 144/61 05/04/17 08:49 72 144/61 05/04/17 08:00 73 05/04/17 07:39 76 20 99 Room Air 21 05/04/17 07:30 74 20 98 Room Air 21 05/04/17 07:30 98 Room Air 21 05/04/17 07:30 Room Air 21 05/04/17 04:11 97.0 61 20 107/58 97 05/04/17 04:00 67 05/04/17 03:45 80 20 99 Nasal Cannula 2.0 28 05/04/17 03:44 74 20 95 Nasal Cannula 2.0 28 05/04/17 00:31 96.9 71 22 109/56 96 Room Air 05/04/17 00:00 73 05/04/17 00:00 Nasal Cannula 2.0 28 05/04/17 00:00 Nasal Cannula 2.0 28 05/03/17 20:42 75 127/68 05/03/17 20:00 96.0 75 20 127/68 98 Room Air 05/03/17 19:27 76 20 99 Nasal Cannula 2.0 28 05/03/17 19:26 96 Nasal Cannula 2.0 28 05/03/17 19:26 Nasal Cannula 2.0 28 05/03/17 19:26 72 20 96 Nasal Cannula 2.0 28 05/03/17 16:00 69 Height (Feet): 5 Height (Inches): 3.00 Weight (Pounds): 168 General Appearance: WD/WN, no acute distress HEENT: normocephalic, atraumatic, anicteric, mucous membranes moist, PERRL Respiratory/Chest: chest wall non-tender, lungs clear, normal breath sounds, no respiratory distress, no accessory muscle use Cardiovascular: normal peripheral pulses, normal rate, regular rhythm, no gallop/murmur, no JVD Abdomen: normal bowel sounds, soft, non tender, no organomegaly, non distended , no mass, no scars Extremities: no cyanosis, no clubbing Skin: no rash, no lesions, no ulcers Neurologic/Psychiatric: alert, oriented x 3, responsive Lymphatic: no neck adenopathy, no groin adenopathy Laboratory Tests Test 05/04/17 07:30 White Blood Count 6.0 K/UL (4.8-10.8) Red Blood Count 3.50 M/UL (4.20-5.40) L Hemoglobin 9.9 G/DL (12.0-16.0) L Hematocrit 29.8 % (37.0-47.0) L Mean Corpuscular Volume 85 FL (80-99) Mean Corpuscular Hemoglobin 28.2 PG (27.0-31.0) Mean Corpuscular Hemoglobin Concent 33.2 G/DL (32.0-36.0) Red Cell Distribution Width 12.4 % (11.6-14.8) Platelet Count 210 K/UL (150-450) Mean Platelet Volume 6.8 FL (6.5-10.1) Neutrophils (%) (Auto) 59.0 % (45.0-75.0) Lymphocytes (%) (Auto) 24.0 % (20.0-45.0) Monocytes (%) (Auto) 8.6 % (1.0-10.0) Eosinophils (%) (Auto) 7.2 % (0.0-3.0) H Basophils (%) (Auto) 1.1 % (0.0-2.0) Sodium Level 138 MMOL/L (136-145) Potassium Level 4.6 MMOL/L (3.5-5.1) Chloride Level 105 MMOL/L (98-107) Carbon Dioxide Level 23 MMOL/L (21-32) Anion Gap 10 mmol/L (5-15) Blood Urea Nitrogen 33 mg/dL (7-18) H Creatinine 1.2 MG/DL (0.55-1.30) Estimat Glomerular Filtration Rate 44.5 mL/min (>60) Glucose Level 198 MG/DL (74-106) H Calcium Level 9.2 MG/DL (8.5-10.1) Troponin I 0.098 ng/mL (0.000-0.056) Current Medications Medications (Trade) Dose Ordered Sig/Ellen Route PRN Reason Start Time Stop Time Status Last Admin Dose Admin Albuterol/ Ipratropium (Albuterol/ Ipratropium) 3 ml Q2H PRN N Shortness of Breath 05/03/17 07:30 05/06/17 17:29 Albuterol/ Ipratropium (Albuterol/ Ipratropium) 3 ml Q4HRT HHN 05/03/17 11:00 05/06/17 18:59 05/04/17 14:49 Aspirin (Ecotrin) 81 mg DAILY ORAL 05/03/17 09:00 06/02/17 08:59 05/04/17 08:49 Atorvastatin Calcium (Lipitor) 80 mg BEDTIME ORAL 05/03/17 21:00 06/01/17 20:59 05/03/17 20:42 Carvedilol (Coreg) 25 mg EVERY 12 HOURS ORAL 05/03/17 09:00 06/01/17 20:59 05/04/17 08:49 Cefepime HCl 2 gm/ Dextrose 55 ml @ 110 mls/hr Q24H IVPB 05/04/17 00:00 05/08/17 00:00 05/04/17 00:00 Dextrose (Dextrose 50%) STAT PRN IV Hypoglycemia 05/03/17 13:30 05/30/17 13:29 Diphenhydramine HCl (Benadryl) 25 mg Q6H PRN IVP Itching 05/03/17 07:30 06/01/17 19:29 05/03/17 20:42 Doxycycline Monohydrate (Vibramycin) 100 mg Q12HR@0600,1800 ORAL 05/03/17 18:00 05/07/17 16:29 05/04/17 07:04 Guaifenesin (Mucinex ER) 600 mg TWICE A DAY ORAL 05/04/17 18:00 06/03/17 17:59 Heparin Sodium (Porcine) (Heparin 5000 units/ml) 5,000 units EVERY 12 HOURS SUBQ 05/03/17 09:00 05/31/17 20:59 05/04/17 08:56 Insulin Aspart (NovoLOG) BEFORE MEALS AND HS SUBQ 05/03/17 11:30 05/30/17 16:29 05/04/17 12:12 Insulin Detemir (Levemir) 10 units Q12HR SUBQ 05/03/17 09:00 06/01/17 08:59 05/04/17 08:55 Isosorbide Mononitrate (Imdur) 30 mg DAILY ORAL 05/03/17 09:00 06/02/17 08:59 05/04/17 08:49 Pantoprazole (Protonix) 40 mg DAILY ORAL 05/03/17 09:00 06/01/17 08:59 05/04/17 08:57 Sarah Matos M.D. May 04, 2017 15:06
[2017-05-04 16:00] VITALS: BP 131/73
--- NOTE | 2017-05-04 17:43 | Nephrology Progress Note ---
Assessment/Plan Problem List: (1) Diabetes (2) HTN (hypertension) (3) Shortness of breath (4) Renal insufficiency (5) Pneumonia (6) CHF exacerbation (7) Respiratory failure with hypoxia (8) Sepsis Plan Continue current treatment plan Abx per ID Monitor lytes correct prn Renally dose meds, avoid nephrotoxins Monitor intake and output Pulmo and cardio following Strict glycemic control Continue neb treatment PPI daily DVT prophylaxis AM labs Subjective Constitutional: Denies: no symptoms, chills, diaphoresis, fever, malaise, weakness, other HEENT: Denies: no symptoms, eye pain, blurred vision, tearing, double vision, ear pain, ear discharge, nose pain, nose congestion, throat pain, throat swelling, mouth pain, mouth swelling, other Genitourinary: Denies: no symptoms, burning, discharge, frequency, flank pain, hematuria, incontinence, pain, urgency, other Neurologic/Psychiatric: Denies: no symptoms, anxiety, depressed, emotional problems, headache, numbness, paresthesia, pre-existing deficit, seizure, tingling, tremors, weakness, other Subjective In bed, in no apparent distress, denies discomfort, no complaints voiced at this time. Objective Objective Last 24 Hour Vital Signs Date Time Temp Pulse Resp B/P (MAP) Pulse Ox O2 Delivery O2 Flow Rate FiO2 05/04/17 16:00 97.0 67 19 131/73 100 05/04/17 14:59 74 18 99 Room Air 05/04/17 14:49 75 20 98 Room Air 05/04/17 12:00 74 05/04/17 12:00 96.1 72 18 139/63 100 05/04/17 10:57 76 18 99 Room Air 21 05/04/17 10:46 75 20 97 Room Air 21 05/04/17 09:00 97.1 72 18 144/61 97 05/04/17 08:49 144/61 05/04/17 08:49 72 144/61 05/04/17 08:00 73 05/04/17 07:39 76 20 99 Room Air 21 05/04/17 07:30 74 20 98 Room Air 21 05/04/17 07:30 98 Room Air 21 05/04/17 07:30 Room Air 05/04/17 04:11 97.0 61 20 107/58 97 05/04/17 04:00 67 05/04/17 03:45 80 20 99 Nasal Cannula 2.0 28 05/04/17 03:44 74 20 95 Nasal Cannula 2.0 28 05/04/17 00:31 96.9 71 22 109/56 96 Room Air 05/04/17 00:00 73 05/04/17 00:00 Nasal Cannula 2.0 28 05/04/17 00:00 Nasal Cannula 2.0 28 05/03/17 20:42 75 127/68 05/03/17 20:00 96.0 75 20 127/68 98 Room Air 05/03/17 19:27 76 20 99 Nasal Cannula 2.0 28 05/03/17 19:26 96 Nasal Cannula 2.0 28 05/03/17 19:26 Nasal Cannula 2.0 28 05/03/17 19:26 72 20 96 Nasal Cannula 2.0 28 Intake and Output 05/03/17 05/04/17 19:00 07:00 Intake Total 720 ml Balance 720 ml Intake Oral 720 ml # Voids 3 2 Laboratory Tests 05/04/17 07:30: White Blood Count 6.0, Red Blood Count 3.50L, Hemoglobin 9.9L, Hematocrit 29.8L , Mean Corpuscular Volume 85, Mean Corpuscular Hemoglobin 28.2, Mean Corpuscular Hemoglobin Concent 33.2, Red Cell Distribution Width 12.4, Platelet Count 210, Mean Platelet Volume 6.8, Neutrophils (%) (Auto) 59.0, Lymphocytes (% ) (Auto) 24.0, Monocytes (%) (Auto) 8.6, Eosinophils (%) (Auto) 7.2H, Basophils (%) (Auto) 1.1, Sodium Level 138, Potassium Level 4.6, Chloride Level 105, Carbon Dioxide Level 23, Anion Gap 10, Blood Urea Nitrogen 33H, Creatinine 1.2, Estimat Glomerular Filtration Rate 44.5, Glucose Level 198H, Calcium Level 9.2, Troponin I 0.098H Height (Feet): 5 Height (Inches): 3.00 Weight (Pounds): 168 General Appearance: no apparent distress, alert EENT: normal ENT inspection Neck: normal alignment, supple Cardiovascular: normal rate, regular rhythm, no JVD Respiratory/Chest: lungs clear, normal breath sounds Abdomen: soft, no organomegaly Extremities: non-tender, normal inspection Neurologic: alert, oriented x 3, responsive, normal mood/affect Roula Butler N.P. May 04, 2017 17:43
[2017-05-04] MEDS ORDERED: guaiFENesin ER 600mg tab ORAL SCH (18:00)
[2017-05-04] MEDS ORDERED: NS 275ml ONE (18:53)
[2017-05-04] MEDS ORDERED: Tubing IV Secondary IV ONE (18:53)
--- NOTE | 2017-05-05 11:37 | Discharge Summary ---
Discharge Summary Hospital Course Date of Admission Apr 30, 2017 at 02:52 Date of Discharge May 04, 2017 at 18:54 Admitting Diagnosis CONGESTIVE HEART FAILURE HPI Luna Hodge is a 71 year old female who was admitted on Apr 30, 2017 at 02 :52 for Congestive Heart Failure Hospital Course dc summary #[id number] Discharge Condition Upon Discharge: stable Discharge Disposition Patient was discharged home Discharge Diagnoses: Discharge Instructions Discharge Instructions Special Instructions I have been assigned to complete a D/C Summary on this account. I was not involved in the patient management Marilee Solorio NP ([place]) May 05, 2017 11:37
--- NOTE | 2017-05-06 07:00 | Discharge Summary 2 SIG ---
DATE OF ADMISSION: 04/30/2017 DATE OF DISCHARGE: 05/04/2017 REASON FOR ADMISSION: 71-year-old female with past medical history significant for diabetes, hypertension, coronary artery disease, status post coronary artery bypass graft, and congestive heart failure presented with shortness of breath for one day. Shortness of breath described as gradual in onset, acute, both at rest and exertion and worsened with lying flat. The patient also reported bilateral lower extremities edema. No chest pain. When paramedics arrived, she was saturating 85% on the room air, on auscultation rales were heard bilaterally. The patient was given nitroglycerin and was placed on BiPAP. The patient stated that it felt like similar to previous congestive heart failure exacerbation episodes. Workup in the emergency room revealed tachycardia, tachypnea, and hypoxia. The patient was placed on the BiPAP. First troponin negative. The patient was started on antibiotics empirically, since chest x-ray cannot rule out right-sided pneumonia. It showed pulmonary edema, but WBC -20. ABG on the BiPAP was stable. Lactic acid -6.5. Pro BNP - 1854. BUN -23 and creatinine -1.8. EKG revealed atrial fibrillation with T-wave inversion in the lateral leads. Chest x-ray showed congestive heart failure with possible right-sided infiltrate. The patient was admitted with congestive heart failure exacerbation, respiratory failure with hypoxia, renal insufficiency, probable pneumonia, and sepsis. HOSPITAL COURSE: The patient was admitted to monitored floor. Cardiology, Pulmonology, and ID consults were requested. The patient was started on empiric antibiotics as well as the Tamiflu empirically for influenza. Blood culture negative. Influenza screen negative. Urinalysis negative. Sputum culture was not collected. The patient was on empiric antibiotics. ID closely followed, antibiotic changed to oral prior to discharge to compete the course. Supplemental oxygen was provided to keep pulse oximetry above 92%. Pulmonary toilet provided. The patient was able to be weaned from the BiPAP , first to oxygen via nasal cannula. Prior to discharge home pulse oximetry stable on room air. Second troponin was elevated - 0.203, then another elevation-0.230, and the other one -0.098. Per engagement specialist, the patient had history of coronary artery bypass graft and cardiac catheterization at [facility]. Per engagement specialist , who reviewed findings from cardiac catheterization, the patient had stent from the left internal mammary artery to the left anterior descending coronary artery and it was patent ; and the vein graft to the right coronary artery was patent as well. The vein graft to marginal branches also patent with no obvious percutaneous coronary intervention target. The patient noted to have anterior ST depression and some chest discomfort. Pin Ticket Machine Operator treated the patient medically. The patient was started on aspirin, statin, Imdur, and beta-feliciano. Pin Ticket Machine Operator hold the stress test in view of the sepsis and risk of worsening renal failure. Elevated troponin was likely troponin leak secondary to renal failure. as per engagement specialist,. Antihypertensive medication resumed including HELEN inhibitor, beta-feliciano, and Lasix. Echocardiogram revealed ejection fraction of 50% with global left ventricular hypokinesis, right ventricular systolic pressure of 42 consistent with mild pulmonary hypertension as well as [id number] aortic regurgitation, and [id number] mitral regurgitation. Statin was continued. Blood sugar was treated with sliding scale of insulin. Renal parameters and electrolytes were closely monitored. Electrolytes were corrected as needed. Cardiorenal parameters and volumes were closely monitored. Nephrotoxics were avoided. Prior to discharge, leukocytosis resolved. Acute renal failure resolved, creatinine down to 1.2 from initial 1.8. The patient was stable fordsicharge home. FINAL DIAGNOSES: 1. Sepsis. 2. Pneumonia. 3. Respiratory failure with hypoxia, resolved 4. Renal failure, resolved. 5. Troponin leak, likely secondary to renal failure. 6. Hypertension. 7. Hyperlipidemia. 8. Diabetes. 9. Congestive heart failure exacerbation. DISCHARGE MEDICATIONS: See medication reconciliation list. DISCHARGE INSTRUCTIONS: The patient was discharged home. Follow up with primary medical doctor. Jose Manuel Zimmerman M.D. I have been assigned to dictate discharge summary on this account and I was not involved in the patient's management. Marilee DaleHuntington HospitalDevon, N.P. DR: KEENAN JOB#: [id number] CC: JASSI
--- NOTE | 2017-05-07 14:46 | Cardiology Report ---
APPROVED REPORT EKG Measurement Heart [id number] Normal sinus rhythm Left ventricular hypertrophy with repolarization abnormality Prolonged QT Abnormal ECG
--- NOTE | 2017-05-17 20:37 | Diagnostic Imaging Report ---
APPROVED REPORT CPT Code: 20945 Present Symptoms Lower Extremity Pain: Comments: R/O DVT. BILATERAL LOWER EXTREMITY VENOUS DUPLEX: Imaging reveals a patent deep venous system bilaterally. There is no evidence of thrombus within the femoral, popliteal or tibial segments. The greater saphenous veins are also within normal limits. Doppler indicates normal spontaneous flow within these segments.
== END 2017-05-04 18:54 | disposition home or self-care (01) | DRG 871 ==
LOC: EDBD 01:58 → EMR 02:51 → 2W 02:52 → EDBEDREQ 10:56 → 4E 05-02 14:19 → 2E 05-02 18:55
PROC: 5A09357 Assistance with Respiratory Ventilation, Less than 24 Consecutive Hours, Continuous Positive Airway Pressure (ICD-10-PCS; principal; 2017-04-30)
DX: A41.9 Sepsis, unspecified organism (principal); J18.9 Pneumonia, unspecified organism; J96.01 Acute respiratory failure with hypoxia; I50.9 Heart failure, unspecified; N19 Unspecified kidney failure; I27.20 Pulmonary hypertension, unspecified; Z95.1 Presence of aortocoronary bypass graft; I35.1 Nonrheumatic aortic (valve) insufficiency; I34.0 Nonrheumatic mitral (valve) insufficiency; E78.5 Hyperlipidemia, unspecified; E11.9 Type 2 diabetes mellitus without complications; Z79.4 Long term (current) use of insulin
CPT/HCPCS: 36415; 36600; 71045; 80048; 80053; 81003; 82803; 82962; 83605; 83880; 84484; 85007; 85025; 85610; 85730; 86710; 87040; 93005; 93306; 93970; 94640; 94660; 94664; 94760; J1815; J7620; S5561

== ENCOUNTER 2017-08-24 19:48 | Observation (INO) | payer MEDICARE ==
[~2017-08-24] VITALS: Ht 142.2 cm; Wt 75.3 kg
[~2017-08-24 19:48] MED LIST: ASPIR 8181 MG ORAL; ASPIRIN81 MG ORAL; CARVEDILOL3.125 MG ORAL; CARVEDILOL6.25 MG ORAL; CENTRUM ADULTS1 EACH PO; FUROSEMIDE20 M1 ORAL; HUMALOG100 UNIT/3 SUBQ; JENTADUETO 2.51 EAC2 PO; LANTUS SOL100 UNIT/1 SUBQ; LASIX20 M1 ORAL; LIPITOR80 MG ORAL; LISINOPRIL10 MG ORAL; LISINOPRIL5 MG ORAL; SULFAMETHOXAZO1 EAC2 ORAL
[2017-08-24] MEDS ORDERED: DiphenhydrAMINE 50mg/ml Inj IVP ONE (20:15)
[2017-08-24] MEDS ORDERED: Solu-MEDROL 125mg Inj IVP ONE (20:15)
[2017-08-24 21:05] LABS: BASOPHILS % (AUTO) 0.8 % (0.0-2.0); EOSINOPHILS % (AUTO) 2.5 % (0.0-3.0); HEMATOCRIT 34.5 % (37.0-47.0); HEMOGLOBIN 11.2 G/DL (12.0-16.0); LYMPHOCYTES % (AUTO) 18.8 % (20.0-45.0); MEAN CORPUSCULAR VOLUME 83 FL (80-99); MONOCYTES % (AUTO) 5.3 % (1.0-10.0); NEUTROPHILS % (AUTO) 72.5 % (45.0-75.0); PLATELET COUNT 131 K/UL (150-450); RED BLOOD COUNT 4.13 M/UL (4.20-5.40); RED CELL DISTRIBUTION WIDTH 12.5 % (11.6-14.8); WHITE BLOOD COUNT 5.5 K/UL (4.8-10.8)
[2017-08-24 21:14] LABS: ANION GAP 13 mmol/L (5-15); BLOOD UREA NITROGEN 54 mg/dL (7-18); CALCIUM 8.9 MG/DL (8.5-10.1); CARBON DIOXIDE 18 MMOL/L (21-32); CHLORIDE 104 MMOL/L (98-107); CREATININE 1.7 MG/DL (0.55-1.30); POTASSIUM 5.7 MMOL/L (3.5-5.1); SODIUM 135 MMOL/L (136-145)
[2017-08-24] MEDS ORDERED: LORazepam Inj 2mg/ml 1ml IV ONE ×2 (21:15→22:30)
[2017-08-24 21:20] LABS: APPEARANCE,URINE CLEAR; BILIRUBIN, URINE NEGATIVE (NEGATIVE); COLOR,URINE PALE YELLOW; GLUCOSE, URINE (UA) 4+ (NEGATIVE); KETONES,URINE NEGATIVE (NEGATIVE); LEUKOCYTE ESTERASE ,URINE NEGATIVE (NEGATIVE); NITRITE,URINE NEGATIVE (NEGATIVE); PH,URINE 5 (4.5-8.0); PROTEIN,URINE NEGATIVE (NEGATIVE); UROBILINOGEN,URINE NORMAL MG/DL (0.0-1.0)
[2017-08-24 21:28] LABS: ALANINE AMINOTRANSFERASE 23 U/L (12-78); ALBUMIN 4.2 G/DL (3.4-5.0); ALBUMIN/GLOBULIN RATIO 0.9 (1.0-2.7); ALKALINE PHOSPHATASE 66 U/L (46-116); ASPARTATE AMINO TRANSFERASE 35 U/L (15-37); BILIRUBIN,TOTAL 0.4 MG/DL (0.2-1.0); CREATINE KINASE 132 U/L (26-308)
--- NOTE | 2017-08-24 21:53 | Emergency Room Report ---
History of Present Illness General Chief Complaint: Allergic Reaction Source: Patient Present Illness HPI 71-year-old female presents ED for evaluation. Patient states she is feeling itchy. States that symptoms started 2 days ago. Was initially prescribed Bactrim by her PMD for "infection" that they saw in her blood work. Patient does not know what kind of infection. Patient finished 5 day course of antibiotics and was prescribed another 5 day course. Patient denies any previous history of allergies. Denies any fevers or chills. Denies cough. Denies chest pain or shortness of breath. Denies tongue swelling or throat swelling. No other aggravating or relieving factors. Denies any other associated symptoms Allergies: Coded Allergies: No Known Allergies (Unverified , 04/30/17) Patient History Past Medical History: DM, HTN, CAD, CHF Past Surgical History: none Pertinent Family History: none Social History: Denies: smoking, alcohol use, drug use Now: No Immunizations: UTD Reviewed Nursing Documentation: PMH: Agreed; PSxH: Agreed Nursing Documentation-PMH Hx Cardiac Problems: Yes - CHF, quad bypass Hx Hypertension: Yes Hx Diabetes: Yes - dm2 Hx Cancer: No Hx Gastrointestinal Problems: No Hx Neurological Problems: No - gout Review of Systems All Other Systems: negative except mentioned in HPI Physical Exam Vital Signs Date Time Temp Pulse Resp B/P (MAP) Pulse Ox O2 Delivery O2 Flow Rate FiO2 08/24/17 19:51 97.5 80 18 179/73 97 Room Air 97.5 Sp02 EP Interpretation: reviewed, normal General Appearance: no apparent distress, alert, GCS 15, non-toxic Head: normocephalic, atraumatic Eyes: bilateral eye normal inspection, bilateral eye PERRL ENT: hearing grossly normal, normal pharynx, no angioedema, normal voice Neck: full range of motion, supple/symm/no masses Respiratory: chest non-tender, lungs clear, normal breath sounds, speaking full sentences Cardiovascular #1: regular rate, rhythm, no edema Cardiovascular #2: 2+ carotid (R), 2+ carotid (L), 2+ radial (R), 2+ radial (L) , 2+ dorsalis pedis (R), 2+ dorsalis pedis (L) Gastrointestinal: normal bowel sounds, non tender, soft, non-distended, no guarding, no rebound Rectal: deferred Genitourinary: normal inspection, no CVA tenderness Musculoskeletal: back normal, gait/station normal, normal range of motion, non- tender Neurologic: alert, oriented x3, responsive, motor strength/tone normal, sensory intact, speech normal Psychiatric: judgement/insight normal, memory normal, mood/affect normal, no suicidal/homicidal ideation Reflexes: 3+ bicep (R), 3+ bicep (L), 3+ tricep (R), 3+ tricep (L), 3+ knee (R) , 3+ knee (L) Skin: normal color, no rash, warm/dry, well hydrated Lymphatic: no adenopathy Medical Decision Making Diagnostic Impression: Primary Impression: Uncontrolled hypertension Additional Impressions: CHF (congestive heart failure) Qualified Codes: I50.9 - Heart failure, unspecified ARF (acute renal failure) Qualified Codes: N17.9 - Acute kidney failure, unspecified Hyperkalemia ER Course Hospital Course 71-year-old female presents ED complaining of itchiness after starting Bactrim for a infection Differential diagnoses include: renal failure, sepsis, allergic reaction Clinical course Patient placed on stretcher. on certified medical assistant. After initial history and physical I ordered labs, EKG, chest x-ray, pepcid, solumedrol, benedryl labs reviewed- no leukocytosis, hemoglobin/hematocrit stable, creatinine elevated, troponins negative, BNP elevated, K 5.7 EKG - LVH, no acute ischemic changes interpreted by me Chest x-ray- sternotomy wires, cardiomegaly Patient blood pressure remains markedly elevated. Given treatment for hyperkalemia. I believe patient should be admitted. Given hydralazine for elevated blood pressure Patient will be admitted to telemetry service I. I feel this is a highly complex case requiring extensive working including EKG/Rhythm strip, Xray/CT/US, Blood/urine lab work, repeat exams while in ED, and administration of strong opiates/narcotics for pain control, admission to hospital or close patient follow up. Diagnosis - uncontrolled hypertension, CHF, ARF, hyperkalemia admitted to telemetry in serious condition Labs Test 08/24/17 20:30 White Blood Count 5.5 K/UL (4.8-10.8) Red Blood Count 4.13 M/UL (4.20-5.40) Hemoglobin 11.2 G/DL (12.0-16.0) Hematocrit 34.5 % (37.0-47.0) Mean Corpuscular Volume 83 FL (80-99) Mean Corpuscular Hemoglobin 27.0 PG (27.0-31.0) Mean Corpuscular Hemoglobin Concent 32.4 G/DL (32.0-36.0) Red Cell Distribution Width 12.5 % (11.6-14.8) Platelet Count 131 K/UL (150-450) Mean Platelet Volume 7.4 FL (6.5-10.1) Neutrophils (%) (Auto) 72.5 % (45.0-75.0) Lymphocytes (%) (Auto) 18.8 % (20.0-45.0) Monocytes (%) (Auto) 5.3 % (1.0-10.0) Eosinophils (%) (Auto) 2.5 % (0.0-3.0) Basophils (%) (Auto) 0.8 % (0.0-2.0) Urine Color Pale yellow Urine Appearance Clear Urine pH 5 (4.5-8.0) Urine Specific [place] 1.015 (1.005-1.035) Urine Protein Negative (NEGATIVE) Urine Glucose (UA) 4+ (NEGATIVE) Urine Ketones Negative (NEGATIVE) Urine Occult Blood Negative (NEGATIVE) Urine Nitrite Negative (NEGATIVE) Urine Bilirubin Negative (NEGATIVE) Urine Urobilinogen Normal MG/DL (0.0-1.0) Urine Leukocyte Esterase Negative (NEGATIVE) Sodium Level 135 MMOL/L (136-145) Potassium Level 5.7 MMOL/L (3.5-5.1) Chloride Level 104 MMOL/L (98-107) Carbon Dioxide Level 18 MMOL/L (21-32) Anion Gap 13 mmol/L (5-15) Blood Urea Nitrogen 54 mg/dL (7-18) Creatinine 1.7 MG/DL (0.55-1.30) Estimat Glomerular Filtration Rate 29.8 mL/min (>60) Glucose Level 219 MG/DL (74-106) Calcium Level 8.9 MG/DL (8.5-10.1) Total Bilirubin 0.4 MG/DL (0.2-1.0) Aspartate Amino Transf (AST/SGOT) 35 U/L (15-37) Alanine Aminotransferase (ALT/SGPT) 23 U/L (12-78) Alkaline Phosphatase 66 U/L (46-116) Total Creatine Kinase 132 U/L (26-308) Creatine Kinase MB 1.0 NG/ML (0.0-3.6) Creatine Kinase MB Relative Index 0.7 Troponin I 0.000 ng/mL (0.000-0.056) Pro-B-Type Natriuretic Peptide 434 pg/mL (0-125) Total Protein 8.9 G/DL (6.4-8.2) Albumin 4.2 G/DL (3.4-5.0) Globulin 4.7 g/dL Albumin/Globulin Ratio 0.9 (1.0-2.7) EKG Diagnostic Results Rate: normal Rhythm: NSR ST Segments: other - repoarlization abnormality, LVH ASA given to the pt in ED: No Rhythm Strip Diag. Results EP Interpretation: yes Rhythm: NSR, no PVC's, no ectopy Chest X-Ray Diagnostic Results Chest X-Ray Diagnostic Results : Chest X-Ray Ordered: Yes # of Views/Limited/Complete: 1 View Indication: Shortness of Breath EP Interpretation: Yes Interpretation: no consolidation, no effusion, no pneumothorax, no acute cardiopulmonary disease, other - cardiomegaly. sternotomy wires Impression: Other - chf Electronically Signed by: Electronically signed by Luis Graves MD Last Vital Signs Date Time Temp Pulse Resp B/P (MAP) Pulse Ox O2 Delivery O2 Flow Rate FiO2 08/24/17 19:51 97.5 80 18 179/73 97 Room Air 97.5 Status: improved Disposition: ADMITTED INPATIENT Condition: Serious Referrals: [facility],REFERRING (PCP) Luis Graves MD August 24, 2017 21:53
[2017-08-24 22:00] VITALS: BP 190/151
[2017-08-24 22:23] VITALS: BP 125/84
[2017-08-24] MEDS ORDERED: LORazepam Inj 2mg/ml 1ml ONE (22:30)
[2017-08-25] VITALS: BP 166/88
[2017-08-25] MEDS ORDERED: HydrALAZINE 25mg tab ORAL PRN (00:30)
[2017-08-25] MEDS ORDERED: ATORVASTATIN CA80 MG ORAL (01:26)
[2017-08-25 04:00] VITALS: BP 134/64
[2017-08-25 06:10] LABS: HEMATOCRIT 39.1 % (37.0-47.0); HEMOGLOBIN 14.1 G/DL (12.0-16.0); MEAN CORPUSCULAR VOLUME 83 FL (80-99); PLATELET COUNT 175 K/UL (150-450); RED BLOOD COUNT 4.72 M/UL (4.20-5.40); RED CELL DISTRIBUTION WIDTH 12.1 % (11.6-14.8); WHITE BLOOD COUNT 6.6 K/UL (4.8-10.8)
[2017-08-25] MEDS ORDERED: NovoLOG Insulin Flexpen SUBQ SCH (06:30)
[2017-08-25 06:37] LABS: ALANINE AMINOTRANSFERASE 13 U/L (12-78); ALBUMIN 4.5 G/DL (3.4-5.0); ALKALINE PHOSPHATASE 72 U/L (46-116); ANION GAP 16 mmol/L (5-15); ASPARTATE AMINO TRANSFERASE 24 U/L (15-37); BILIRUBIN,TOTAL 0.5 MG/DL (0.2-1.0); BLOOD UREA NITROGEN 58 mg/dL (7-18); CALCIUM 8.9 MG/DL (8.5-10.1); CARBON DIOXIDE 16 MMOL/L (21-32); CHLORIDE 101 MMOL/L (98-107); CHOLESTEROL 234 MG/DL (< 200); CREATININE 1.8 MG/DL (0.55-1.30); HDL CHOLESTEROL 66 MG/DL (40-60); POTASSIUM 5.2 MMOL/L (3.5-5.1); SODIUM 133 MMOL/L (136-145); TRIGLYCERIDES 59 MG/DL (30-150)
[2017-08-25] MEDS: NovoLOG Insulin Flexpen SUBQ SCH ×4 (07:25→21:00)
[2017-08-25 08:00] VITALS: BP 140/69
[2017-08-25] MEDS: Aspirin Baby 81mg ORAL SCH (09:08)
[2017-08-25] MEDS: Carvedilol 6.25mg Tab ORAL SCH ×2 (09:08→20:58)
[2017-08-25] MEDS: Heparin 5000 units/ml inj SUBQ SCH (09:10)
--- NOTE | 2017-08-25 10:15 | Diagnostic Imaging Report ---
Indication: Dyspnea Comparison: 04/30/2017 A single view chest radiograph was obtained. Findings: Pulmonary vascularity is mildly prominent. The heart is enlarged. No pleural effusion seen. Bones are osteopenic. Sternotomy noted. IMPRESSION: Query mild CHF. Correlate clinically
[2017-08-25 12:00] VITALS: BP 117/59
[2017-08-25 16:00] VITALS: BP 115/55
--- NOTE | 2017-08-25 16:45 | Cardiology Report ---
APPROVED REPORT EKG Measurement Heart [id number] Sinus rhythm with marked sinus arrhythmia Left ventricular hypertrophy with repolarization abnormality Abnormal ECG
[2017-08-25 20:00] VITALS: BP 102/47
[2017-08-25] MEDS: Levemir Flexpen SUBQ SCH (21:00)
--- NOTE | 2017-08-25 21:30 | Consultation ---
DATE OF CONSULTATION: 08/25/2017 PULMONARY CONSULTATION CONSULTING PHYSICIAN: Sebastien Hamlin M.D. HISTORY OF PRESENT ILLNESS: This is a 71-year-old female with a previous history of previous sepsis, pneumonia, and respiratory failure. She also has history of CHF, diabetes mellitus, hypertension, and hyperlipidemia. She came to the hospital last night with complaints of feeling unwell. She also reported feeling itchy. She has been given Bactrim by her PMD for an infection. The patient at this time states she is feeling better. She states that she has mild shortness of breath. PAST MEDICAL HISTORY: Notable as above for CAD, CHF, respiratory failure, hypertension, and diabetes mellitus. PAST SURGICAL HISTORY: None. HOME MEDICATIONS: Levemir, aspirin, Coreg, subcutaneous heparin, NovoLog, IV fluid, and hydralazine. REVIEW OF SYSTEMS: The patient denies any headaches, hematemesis, melena, or hematochezia. PHYSICAL EXAMINATION: GENERAL: Reveals a 71-year-old female. VITAL SIGNS: Blood pressure is 140/60, heart rate 84, respiratory 18, and O2 saturation 94% on 4 liters. HEENT: Unremarkable. CHEST: Clear breath sounds bilaterally. ABDOMEN: Soft. EXTREMITIES: There is edema. LABORATORY AND DIAGNOSTIC DATA: X-ray chest obtained overnight shows mild CHF. Laboratory testing shows normal CBC. Chemistries show sodium 133, potassium 5.2, and creatinine 1.8. ProBNP 2283. Troponin negative. LDL is 155. ABG, 7.39, pCO2 of 22, and pO2 of 93. Urinalysis is negative. IMPRESSION: 1. Congestive heart failure. 2. Previous pneumonia, respiratory failure. 3. Hypertension. 4. Diabetes mellitus. DISCUSSION: The patient has improved at this point in time. I agree with present management and care. 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 At this time, I do not suspect a need for antibiotics or steroids. The patient will benefit from increasing diuretics. We will follow. Sebastien Hamlin M.D. DR: CINDA JOB#: [id number] CC:
[2017-08-26] VITALS: BP 99/48
[2017-08-26 04:00] VITALS: BP 94/52
[2017-08-26] MEDS: NovoLOG Insulin Flexpen SUBQ SCH ×4 (06:34→21:53)
[2017-08-26 08:00] VITALS: BP 105/58
--- NOTE | 2017-08-26 08:43 | Pulmonology Progress Note ---
Assessment/Plan Assessment/Plan IMPRESSION: 1. Congestive heart failure. 2. Previous pneumonia, respiratory failure. 3. Hypertension. 4. Diabetes mellitus. DISCUSSION: The patient has improved at this point in time. I agree with present management and care. 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 At this time, I do not suspect a need for antibiotics or steroids. Continue diuresis. Subjective Interval Events: No new events Constitutional: Reports: no symptoms HEENT: Repors: no symptoms Respiratory: Reports: no symptoms Cardiovascular: Reports: no symptoms Gastrointestinal/Abdominal: Reports: no symptoms Allergies: Coded Allergies: No Known Allergies (Unverified , 04/30/17) Objective Last 24 Hour Vital Signs Date Time Temp Pulse Resp B/P (MAP) Pulse Ox O2 Delivery O2 Flow Rate FiO2 08/26/17 04:00 70 08/26/17 04:00 97.8 69 20 94/52 100 Nasal Cannula 4.0 97.8 08/26/17 00:00 71 08/26/17 00:00 97.9 70 21 99/48 98 Nasal Cannula 4.0 97.9 08/25/17 20:58 72 101/50 08/25/17 20:00 98.2 78 20 102/47 99 Nasal Cannula 4.0 98.2 08/25/17 20:00 81 08/25/17 19:05 82 18 Nasal Cannula 4.0 36 08/25/17 19:05 Nasal Cannula 4.0 36 08/25/17 16:00 99.0 82 20 115/55 100 Nasal Cannula 4.0 99.0 08/25/17 16:00 79 08/25/17 12:00 81 08/25/17 12:00 97.5 87 18 117/59 97 Nasal Cannula 4.0 97.5 08/25/17 09:08 82 140/69 Intake and Output 08/25/17 08/26/17 19:00 07:00 Intake Total 700 ml 400 ml Output Total 0 ml 800 ml Balance 700 ml -400 ml Intake Oral 500 ml IV Total 400 ml Other 200 ml Output Urine Total 800 ml Stool Total 0 ml 0 ml # Voids 5 3 General Appearance: no acute distress HEENT: normocephalic Respiratory/Chest: chest wall non-tender, lungs clear Cardiovascular: normal peripheral pulses, normal rate Current Medications Medications (Trade) Dose Ordered Sig/Ellen Route PRN Reason Start Time Stop Time Status Last Admin Dose Admin Aspirin (ASA) 81 mg DAILY ORAL 08/25/17 09:00 09/24/17 08:59 08/25/17 09:08 Atorvastatin Calcium (Lipitor) 20 mg BEDTIME ORAL 08/26/17 21:00 09/25/17 20:59 Carvedilol (Coreg) 6.25 mg EVERY 12 HOURS ORAL 08/25/17 09:00 09/24/17 08:59 08/25/17 20:58 Dextrose (Dextrose 50%) 25 ml STAT PRN IV Hypoglycemia 08/25/17 06:30 09/24/17 06:29 Dextrose (Dextrose 50%) 50 ml STAT PRN IV Hypoglycemia 08/25/17 06:30 09/24/17 06:29 Furosemide (Lasix) 40 mg EVERY 12 HOURS IV 08/25/17 12:00 09/24/17 11:59 08/25/17 20:58 Heparin Sodium (Porcine) (Heparin 5000 units/ml) 5,000 units DAILY SUBQ 08/25/17 09:00 09/24/17 08:59 08/25/17 09:10 Hydralazine HCl (Apresoline) 25 mg Q6HR PRN ORAL SBP above 150 08/25/17 00:30 09/24/17 00:29 Insulin Aspart (NovoLOG) BEFORE MEALS AND HS SUBQ 08/25/17 06:30 09/24/17 06:29 08/26/17 06:34 Insulin Detemir (Levemir) 20 units BEDTIME SUBQ 08/25/17 21:00 09/24/17 20:59 08/25/17 21:00 Sebastien Hamlin MD August 26, 2017 08:43
[2017-08-26] MEDS: Aspirin Baby 81mg ORAL SCH (08:51)
[2017-08-26] MEDS: Carvedilol 6.25mg Tab ORAL SCH ×2 (08:51→21:51)
[2017-08-26] MEDS: Heparin 5000 units/ml inj SUBQ SCH (08:52)
--- NOTE | 2017-08-26 09:16 | History and Physical Report ---
DATE OF ADMISSION: 08/24/2017 REASON FOR ADMISSION: Shortness of breath and encephalopathy. HISTORY OF PRESENT ILLNESS: This 71-year-old [place] has longstanding history of type 2 diabetes mellitus, hypertensive heart disease, and COPD. She was hospitalized here in 2017 with CHF and COPD exacerbation. 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 When she arrived at home, she felt somewhat unwell and is unable to describe any specific symptoms, but states she feels uneasy, itchy, and somewhat short of breath. She denies chest pain. She recently was treated with Bactrim by her primary care physician for infection. itchiness was allover her chest and back. She is unaware of any prior sulfa allergy. PAST MEDICAL HISTORY: Type 2 diabetes mellitus, coronary artery disease with history of CABG, hypertension, congestive heart failure, bronchospastic lung disease. ALLERGIES: sulfa. MEDICATIONS: Prior to admission, reviewed and reconciled. SOCIAL HISTORY: Negative for smoking, alcohol, or substance abuse. FAMILY HISTORY: Noncontributory. REVIEW OF SYSTEMS: Diabetes managed with oral medications. She does have some neuropathy. She is not on any thyroid based on history of thyroid disorder. She takes anti-lipid drugs. She has had asthma exacerbation. She has had a prior CABG. She has not complained of chest pain. In 2017, she had an echocardiogram here that revealed an ejection fraction of about 50% with some septal wall motion abnormalities and mild degenerative valve regurgitation. She does have history of gout, but no recent attacks. She has been compliant with medications, but does not know if she ate too much foods recently. PHYSICAL EXAMINATION: VITAL SIGNS: Blood pressure 179/73, pulse 80, respiratory rate 18, afebrile. HEENT: Normocephalic and atraumatic. Conjunctivae pink. Oropharynx clear. Mucous membranes moist. NECK: Supple. Jugular venous pressure elevated. LUNGS: With few rales bilaterally. CARDIAC: Regular rhythm and rate. Normal S1 and S2 with a fourth heart sound. ABDOMEN: Soft and nontender. EXTREMITIES: Good pulses, 1+ dependent edema. NEUROLOGIC: Nonfocal. LABORATORY AND DIAGNOSTIC DATA: EKG reveals sinus rhythm, left ventricular hypertrophy with repolarization changes. Chest x-ray reveals median sternotomy scar, cardiomegaly, and mild pulmonary venous congestion. White count 5.5, hemoglobin 11.2. Sodium 133, potassium 5.2, bicarbonate 16, BUN 58, creatinine 1.8. Troponin zero. Pro-natriuretic peptide 2283. LDL cholesterol 155. IMPRESSION: 1. Acute diastolic congestive heart failure. 2. Possible acute coronary insufficiency. 3. Ischemic cardiomyopathy with prior CABG. 4. Insulin-requiring diabetes mellitus with complication. 5. Possible adverse reaction to Bactrim. 6. Hypertensive urgency. PLAN: 1. Cardiac monitoring. 2. Serial troponins. 3. Diuresis. 4. Titrate anti-failure and antihypertensive regimen. 5. Further recommendations will follow based on clinical course. Gulshan Matos M.D. DR: Mik JOB#: [id number] CC: JASSI
[2017-08-26 10:28] LABS: BASOPHILS % (AUTO) 0.9 % (0.0-2.0); EOSINOPHILS % (AUTO) 2.9 % (0.0-3.0); HEMATOCRIT 35.5 % (37.0-47.0); LYMPHOCYTES % (AUTO) 24.4 % (20.0-45.0); MEAN CORPUSCULAR VOLUME 82 FL (80-99); MONOCYTES % (AUTO) 8.3 % (1.0-10.0); NEUTROPHILS % (AUTO) 63.5 % (45.0-75.0); PLATELET COUNT 163 K/UL (150-450); RED BLOOD COUNT 4.36 M/UL (4.20-5.40); RED CELL DISTRIBUTION WIDTH 12.2 % (11.6-14.8); WHITE BLOOD COUNT 5.7 K/UL (4.8-10.8)
[2017-08-26 10:41] LABS: ANION GAP 11 mmol/L (5-15); BLOOD UREA NITROGEN 63 mg/dL (7-18); CALCIUM 8.5 MG/DL (8.5-10.1); CARBON DIOXIDE 20 MMOL/L (21-32); CHLORIDE 104 MMOL/L (98-107); CREATININE 1.7 MG/DL (0.55-1.30); POTASSIUM 4.2 MMOL/L (3.5-5.1); SODIUM 135 MMOL/L (136-145)
[2017-08-26 12:00] VITALS: BP 106/62
[2017-08-26 16:00] VITALS: BP 111/51
[2017-08-26 20:00] VITALS: BP 111/51
[2017-08-26] MEDS ORDERED: Atorvastatin 20mg tab ORAL SCH (21:00)
[2017-08-26] MEDS: Levemir Flexpen SUBQ SCH (21:54)
[2017-08-27] VITALS: BP 99/50
--- NOTE | 2017-08-27 02:15 | Progress Note ---
DATE: 08/26/2017 MEDICINE PROGRESS NOTE SUBJECTIVE: The patient has no chest pain or shortness of breath. Her rash has subsided. She does note recurring headache, pressure-like sensations from the upper neck to the occiput. These are intermittent episodes and feels like pressure and are associated with some dizziness. The patient is ambulating without assist. OBJECTIVE: VITAL SIGNS: Blood pressure 111/51, pulse 74, and respirations 20. LUNGS: Clear. CARDIAC: Regular rhythm and rate. Normal S1, S2 with no murmur. ABDOMEN: Soft. EXTREMITIES: Without edema. IMPRESSION: 1. Acute on chronic diastolic congestive heart failure, improved. 2. History of pneumonia and respiratory failure, now with no signs of acute infection. 3. Hypertension, controlled with lower range blood pressure readings at this time. 4. Headache, recurrent and at times per the patient debilitating. 5. Insulin-requiring diabetes mellitus, controlled. PLAN: 1. Transition to oral diuretic maintenance dose. 2. CAT scan of the brain. 3. Discharge planning. 4. Continue titration of insulin dosing to optimize glucose control based on oral intake. The patient is advised regarding following discharge home. Gulshan Matos M.D. DR: ANIYA JOB#: [id number] CC:
[2017-08-27 04:00] VITALS: BP 112/58
[2017-08-27] MEDS: NovoLOG Insulin Flexpen SUBQ SCH ×2 (06:31→11:41)
[2017-08-27 08:00] VITALS: BP 119/54
[2017-08-27] MEDS: Aspirin Baby 81mg ORAL SCH (08:27)
[2017-08-27] MEDS: Carvedilol 6.25mg Tab ORAL SCH (08:28)
[2017-08-27] MEDS: Heparin 5000 units/ml inj SUBQ SCH (08:29)
[2017-08-27] MEDS ORDERED: Furosemide 40mg tab ORAL SCH (09:00)
[2017-08-27 09:15] LABS: BASOPHILS % (AUTO) 0.9 % (0.0-2.0); EOSINOPHILS % (AUTO) 2.8 % (0.0-3.0); HEMATOCRIT 37.8 % (37.0-47.0); HEMOGLOBIN 12.2 G/DL (12.0-16.0); LYMPHOCYTES % (AUTO) 26.8 % (20.0-45.0); MEAN CORPUSCULAR VOLUME 83 FL (80-99); MONOCYTES % (AUTO) 7.6 % (1.0-10.0); PLATELET COUNT 164 K/UL (150-450); RED BLOOD COUNT 4.54 M/UL (4.20-5.40); RED CELL DISTRIBUTION WIDTH 12.2 % (11.6-14.8); WHITE BLOOD COUNT 6.8 K/UL (4.8-10.8)
--- NOTE | 2017-08-27 09:51 | Pulmonology Progress Note ---
Assessment/Plan Assessment/Plan IMPRESSION: 1. Congestive heart failure. 2. Previous pneumonia, respiratory failure. 3. Hypertension. 4. Diabetes mellitus. DISCUSSION: The patient has improved at this point in time. I agree with present management and care. 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 At this time, I do not suspect a need for antibiotics or steroids. Continue diuresis. Subjective Interval Events: Doing well Constitutional: Reports: no symptoms HEENT: Repors: no symptoms Respiratory: Reports: no symptoms Cardiovascular: Reports: no symptoms Allergies: Coded Allergies: No Known Allergies (Unverified , 04/30/17) Objective Last 24 Hour Vital Signs Date Time Temp Pulse Resp B/P (MAP) Pulse Ox O2 Delivery O2 Flow Rate FiO2 08/27/17 08:28 75 119/54 08/27/17 08:00 69 08/27/17 08:00 97.9 75 20 119/54 98 Nasal Cannula 4.0 97.9 08/27/17 04:00 97.3 64 20 112/58 99 Nasal Cannula 4.0 97.3 08/27/17 04:00 61 08/27/17 00:00 74 08/27/17 00:00 98.1 68 20 99/50 100 Nasal Cannula 4.0 98.1 08/26/17 21:51 74 111/51 08/26/17 20:00 79 08/26/17 20:00 97.8 74 20 111/51 100 Nasal Cannula 4.0 97.8 08/26/17 19:30 Nasal Cannula 4.0 36 08/26/17 19:30 97 Nasal Cannula 4.0 36 08/26/17 16:00 70 08/26/17 16:00 97.9 66 18 111/51 97 Nasal Cannula 4.0 97.9 08/26/17 12:00 67 08/26/17 12:00 97.5 72 20 106/62 100 Nasal Cannula 4.0 97.5 Intake and Output 08/26/17 08/27/17 19:00 07:00 Intake Total 360 ml Balance 360 ml Intake Oral 360 ml # Voids 5 General Appearance: no acute distress HEENT: normocephalic Respiratory/Chest: chest wall non-tender, lungs clear Cardiovascular: normal peripheral pulses, normal rate Laboratory Tests 08/27/17 07:30: White Blood Count 6.8, Red Blood Count 4.54, Hemoglobin 12.2, Hematocrit 37.8, Mean Corpuscular Volume 83, Mean Corpuscular Hemoglobin 27.0, Mean Corpuscular Hemoglobin Concent 32.4, Red Cell Distribution Width 12.2, Platelet Count 164, Mean Platelet Volume 7.1, Neutrophils (%) (Auto) 62.0, Lymphocytes (%) (Auto) 26.8, Monocytes (%) (Auto) 7.6, Eosinophils (%) (Auto) 2.8, Basophils (%) (Auto ) 0.9, Sodium Level [Pending], Potassium Level [Pending], Chloride Level [ Pending], Carbon Dioxide Level [Pending], Blood Urea Nitrogen [Pending], Creatinine [Pending], Estimat Glomerular Filtration Rate [Pending], Glucose Level [Pending], Calcium Level [Pending], Pro-B-Type Natriuretic Peptide [ Pending] Current Medications Medications (Trade) Dose Ordered Sig/Ellen Route PRN Reason Start Time Stop Time Status Last Admin Dose Admin Aspirin (ASA) 81 mg DAILY ORAL 08/25/17 09:00 09/24/17 08:59 08/27/17 08:27 Atorvastatin Calcium (Lipitor) 20 mg BEDTIME ORAL 08/26/17 21:00 09/25/17 20:59 08/26/17 21:51 Carvedilol (Coreg) 6.25 mg EVERY 12 HOURS ORAL 08/25/17 09:00 09/24/17 08:59 08/27/17 08:28 Dextrose (Dextrose 50%) 25 ml STAT PRN IV Hypoglycemia 08/25/17 06:30 09/24/17 06:29 Dextrose (Dextrose 50%) 50 ml STAT PRN IV Hypoglycemia 08/25/17 06:30 09/24/17 06:29 Furosemide (Lasix) 40 mg DAILY ORAL 08/27/17 09:00 09/26/17 08:59 08/27/17 08:27 Heparin Sodium (Porcine) (Heparin 5000 units/ml) 5,000 units DAILY SUBQ 08/25/17 09:00 09/24/17 08:59 08/27/17 08:29 Hydralazine HCl (Apresoline) 25 mg Q6HR PRN ORAL SBP above 150 08/25/17 00:30 09/24/17 00:29 Insulin Aspart (NovoLOG) BEFORE MEALS AND HS SUBQ 08/25/17 06:30 09/24/17 06:29 08/27/17 06:31 Insulin Detemir (Levemir) 20 units BEDTIME SUBQ 08/25/17 21:00 09/24/17 20:59 08/26/17 21:54 Sebastien Hamlin MD August 27, 2017 09:51
[2017-08-27 09:53] LABS: ANION GAP 11 mmol/L (5-15); BLOOD UREA NITROGEN 63 mg/dL (7-18); CALCIUM 8.7 MG/DL (8.5-10.1); CARBON DIOXIDE 22 MMOL/L (21-32); CHLORIDE 105 MMOL/L (98-107); CREATININE 1.5 MG/DL (0.55-1.30); POTASSIUM 4.7 MMOL/L (3.5-5.1); SODIUM 138 MMOL/L (136-145)
--- NOTE | 2017-08-27 10:55 | Diagnostic Imaging Report ---
Indication: Headache Technique: Contiguous 5 mm thick transaxial imaging of the head obtained in a Siemens Sensation [address] scanner. Soft tissue and bone windows generated. Automatic Exposure Control was utilized. Total Dose length Product (DLP): 1386.[address] Dose Index Volume (CTDIvol): 70.38 mGy Comparison: none Findings: There is mild prominence of the ventricles, basal cisterns, and cerebral sulci consistent with atrophy. Mild, nonspecific, white matter hypoattenuation is noted throughout the brain consistent with chronic small vessel disease. Small focus of encephalomalacia demonstrated within the inferior right cerebellum. Tiny cystic focus demonstrated in the right frontal coronal radiata. These are consistent with old infarcts. There is no midline shift, edema, acute hemorrhage, mass effect, or abnormal extra-axial fluid collections. Bones and extra osseous soft tissues are unremarkable. Impression: No acute intracranial bleed, mass effect or edema. 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 Nonspecific white matter hypoattenuation probably due to chronic small vessel disease. The CT scanner at [facility] is accredited by the [employer] and the scans are performed using dose optimization techniques as appropriate to a performed exam including Automatic Exposure control.
[2017-08-27 12:04] VITALS: BP 114/54
[2017-08-27] MEDS ORDERED: 1/2 NS 1000ml IV ONE (13:39)
== END 2017-08-27 13:40 | disposition home or self-care (01) ==
LOC: EMR 20:21 → 2E 22:10 → INTOOBSV 22:10 → EDBEDREQ 23:00 → 2E 08-25 03:35
DX: I50.33 Acute on chronic diastolic (congestive) heart failure (principal); I11.0 Hypertensive heart disease with heart failure; I25.5 Ischemic cardiomyopathy; I16.0 Hypertensive urgency; N17.9 Acute kidney failure, unspecified; E87.5 Hyperkalemia; E78.5 Hyperlipidemia, unspecified; J44.9 Chronic obstructive pulmonary disease, unspecified; E11.40 Type 2 diabetes mellitus with diabetic neuropathy, unspecified; Z79.4 Long term (current) use of insulin; I49.9 Cardiac arrhythmia, unspecified; Z79.82 Long term (current) use of aspirin; Z95.1 Presence of aortocoronary bypass graft
CPT/HCPCS: 36415 ×4; 36600; 70450; 71045; 80048 ×2; 80053 ×2; 80061; 81003; 82550; 82553; 82803; 82962 ×3; 83036; 83605; 83735; 83880 ×4; 84443; 84484 ×2; 85007; 85025 ×4; 93005; 94664; 94760; 96360; 96361 ×3; 97110 ×2; 97116; 97161; 97530 ×2; 99285; G0378 ×2; J0360; J1200; J1644 ×3; J1815 ×2; J1940 ×3; J2930; S0028; S5561

== ENCOUNTER 2018-05-12 22:31 | Inpatient (IN) | payer MEDICARE, OTHER ==
[~2018-05-12] VITALS: Ht 157.5 cm; Wt 83.0 kg
[~2018-05-12 22:31] MED LIST changes: +ATORVASTATIN CA80 MG ORAL
--- NOTE | 2018-05-12 22:40 | NUR ---
ED Nurse Note: Patient is here because of chills, shivering, puffy hands. [place]. Patient reports feeling dry, skin and eyes.
[2018-05-12 22:57] VITALS: BP 143/63
--- NOTE | 2018-05-12 23:10 | Emergency Room Report ---
History of Present Illness General Chief Complaint: Abdominal Pain Source: Patient Present Illness HPI Patient presents with sore throat, chills and dehydration. She just returned from a cruise to [facility]. She states that her gout was bothering her the whole time. The gout involved the left foot. She denies vomiting or diarrhea. She also denies any dysuria or productive cough. She got a flu shot last year. She states she has not been using her insulin pen on the cruise. She denies of the ill contacts on the cruise. She denies any chest pain, dyspnea. History of insulin-dependent diabetes. History of gout. History of cardiac bypass graft surgery. Admitted April 2017 with d/c dx: 1. Sepsis. 2. Pneumonia. 3. Respiratory failure with hypoxia, resolved 4. Renal failure, resolved. 5. Troponin leak, likely secondary to renal failure. 6. Hypertension. 7. Hyperlipidemia. 8. Diabetes. 9. Congestive heart failure exacerbation. Allergies: Coded Allergies: No Known Allergies (Unverified , 04/30/17) Patient History Past Medical History: see triage record Past Surgical History: CABG Social History: Denies: smoking, alcohol use, drug use Social History Narrative recent cruise to [facility] Last Menstrual Period: NA Reviewed Nursing Documentation: PMH: Agreed; PSxH: Agreed Nursing Documentation-PMH Hx Cardiac Problems: Yes Hx Hypertension: Yes Hx Diabetes: Yes Hx Cancer: No Hx Gastrointestinal Problems: No Hx Neurological Problems: No Review of Systems All Other Systems: negative except mentioned in HPI Physical Exam Vital Signs Date Time Temp Pulse Resp B/P (MAP) Pulse Ox O2 Delivery O2 Flow Rate FiO2 05/12/18 22:37 98.8 96 18 143/63 98 Room Air Sp02 EP Interpretation: reviewed, normal General Appearance: GCS 15, mild distress, other - Ill-appearing Head: normocephalic, atraumatic Eyes: bilateral eye normal inspection, bilateral eye PERRL ENT: moist mucus membranes - Yellowish buildup sides of mouth Neck: supple, no meningismus, no bony tend Respiratory: chest non-tender, lungs clear, normal breath sounds Cardiovascular #1: regular rate, rhythm, no edema Cardiovascular #2: 2+ radial (R) Gastrointestinal: non tender, soft, decreased bowel sounds, overweight Genitourinary: no CVA tenderness Musculoskeletal: back normal, tender - First metatarsal joint right foot Neurologic: alert, oriented x3, DTRs symmetric, sensory intact, motor weakness - Generalized Psychiatric: mood/affect normal Skin: no rash, warm/dry Procedures Critical Care Time Critical Care Time Total Critical Care Time: 60 min bedside evaluation and treatment excludes procedures (EKG). Reason for critical care: Sepsis, diabetic ketoacidosis, gout Possible complications: hypotension, hypertension, MS, shock, arrhythmias, metabolic acidosis, end organ damage, respiratory failure. Interventions: Sepsis resuscitation, antibiotics, analgesia including colchicine Course: Patient presented with weakness, chills, and exacerbation of gout. Patient was initially treated with fluid resuscitation and colchicine. Labs revealed hyperglycemia and acidosis. After fluid bolus insulin drip was begun. Antibiotics were initiated for urinary tract infection. Patient had renal insufficiency. Discussions were undertaken with the pharmacy for appropriate insulin drip. Glucose was improving and the patient was clinically improved. Potassium was expected to improve with insulin drip. Patient was admitted to ICU for continuation of the insulin drip. Discussion was undertaken with the admitting physician. Consultations: nursing staff, pharmacy, admitting physician Performed by: Dr. Gonzalez Tolerated well condition = critical but improved Medical Decision Making Diagnostic Impression: Primary Impression: Sepsis Qualified Codes: A41.9 - Sepsis, unspecified organism Additional Impressions: UTI (urinary tract infection) Qualified Codes: N39.0 - Urinary tract infection, site not specified Pancreatitis Qualified Codes: K85.90 - Acute pancreatitis without necrosis or infection, unspecified DKA (diabetic ketoacidosis) Qualified Codes: E10.10 - Type 1 diabetes mellitus with ketoacidosis without coma Renal failure Qualified Codes: N17.9 - Acute kidney failure, unspecified Gout Qualified Codes: M10.9 - Gout, unspecified Hyperkalemia Elevated brain natriuretic peptide (BNP) level ER Course Patient presents with weakness, chills, sore throat after traveling abroad with allergic exacerbation of gout. Differential includes influenza, gastroenteritis , but he is out of control, UTI, strep amongst others. Evaluation will be with EKG, chest x-ray and labs. Patient needs IV hydration and chin with Tylenol initially. Initial labs with elevated blood glucose. Her bicarbonate is low. Influenza titer negative. VBG with ph 7.32/28 CO2 and 50 O2. Glucose 497. Start insulin drip. With pancreatitis (elevated lipase and increased liver function tests), no RUQ pain. Still ordering ultrasound. Insulin drip needed discussion with pharmacy. On drip 1 hour glucose 387. Clinically improved with good cap fill, no hypotension, improved heart rate. Antibiotics begun. (Sepsis re-evaluation). Mentation good. Patient denies pain at this time. Admit ICU Dr. Lew. Laboratory Tests Test 05/12/18 23:50 05/13/18 00:27 White Blood Count 6.8 K/UL (4.8-10.8) Red Blood Count 4.56 M/UL (4.20-5.40) Hemoglobin 11.9 G/DL (12.0-16.0) L Hematocrit 37.1 % (37.0-47.0) Mean Corpuscular Volume 81 FL (80-99) Mean Corpuscular Hemoglobin 26.2 PG (27.0-31.0) L Mean Corpuscular Hemoglobin Concent 32.2 G/DL (32.0-36.0) Red Cell Distribution Width 13.6 % (11.6-14.8) Platelet Count 211 K/UL (150-450) Mean Platelet Volume 6.8 FL (6.5-10.1) Neutrophils (%) (Auto) 69.9 % (45.0-75.0) Lymphocytes (%) (Auto) 13.1 % (20.0-45.0) L Monocytes (%) (Auto) 12.2 % (1.0-10.0) H Eosinophils (%) (Auto) 3.8 % (0.0-3.0) H Basophils (%) (Auto) 0.9 % (0.0-2.0) Prothrombin Time 10.7 SEC (9.30-11.50) Prothrombin Time INR 1.0 (0.9-1.1) PTT 26 SEC (23-33) Sodium Level 127 MMOL/L (136-145) L Potassium Level 5.5 MMOL/L (3.5-5.1) H Chloride Level 94 MMOL/L (98-107) L Carbon Dioxide Level 19 MMOL/L (21-32) L Anion Gap 14 mmol/L (5-15) Blood Urea Nitrogen 39 mg/dL (7-18) H Creatinine 1.8 MG/DL (0.55-1.30) H Estimate Glomerular Filtration Rate 27.8 mL/min (>60) Glucose Level 568 MG/DL (74-106) *H Uric Acid 7.3 MG/DL (2.6-7.2) H Calcium Level 8.3 MG/DL (8.5-10.1) L Magnesium Level 2.1 MG/DL (1.8-2.4) Total Bilirubin 1.2 MG/DL (0.2-1.0) H Direct Bilirubin 0.7 MG/DL (0.0-0.3) H Aspartate Amino Transferase (AST) 166 U/L (15-37) H Alanine Aminotransferase (ALT) 527 U/L (12-78) H Alkaline Phosphatase 585 U/L (46-116) H Total Creatine Kinase 95 U/L (26-308) Troponin I 0.022 ng/mL (0.000-0.056) Pro-B-Type Natriuretic Peptide 2846 pg/mL (0-125) H Total Protein 7.2 G/DL (6.4-8.2) Albumin 3.1 G/DL (3.4-5.0) L Globulin 4.1 g/dL Albumin/Globulin Ratio 0.8 (1.0-2.7) L Lipase > 2000 U/L (73-393) H Urine Color Yellow Urine Appearance Cloudy Urine pH 5 (4.5-8.0) Urine Specific [place] 1.010 (1.005-1.035) Urine Protein 2+ (NEGATIVE) H Urine Glucose (UA) 4+ (NEGATIVE) H Urine Ketones 3+ (NEGATIVE) H Urine Blood 2+ (NEGATIVE) H Urine Nitrite Negative (NEGATIVE) Urine Bilirubin Negative (NEGATIVE) Urine Urobilinogen Normal MG/DL (0.0-1.0) Urine Leukocyte Esterase 3+ (NEGATIVE) H Urine RBC 5-10 /HPF (0 - 2) H Urine WBC Tntc /HPF (0 - 2) H Urine Squamous Epithelial Cells Few /LPF (NONE/OCC) Urine Bacteria Many /HPF (NONE) H Urine Yeast Moderate /HPF (NONE) H Lactic Acid Level 1.60 mmol/L (0.4-2.0) Microbiology Date/Time Source Procedure Growth Status 05/13/18 00:27 Nasal Nares Influenza Types A,B Antigen (TIAGO) - Final Complete EKG Diagnostic Results Rate: normal Rhythm: NSR ST Segments: no acute changes - sinus arrhythmia Rhythm Strip Diag. Results EP Interpretation: yes Rhythm: NSR, no PVC's, no ectopy Chest X-Ray Diagnostic Results Chest X-Ray Diagnostic Results : Chest X-Ray Ordered: Yes # of Views/Limited/Complete: 1 View Indication: Other Interpretation: no consolidation, no effusion, no pneumothorax, other - CABG Impression: Other Electronically Signed by: Electronically signed by Gulshan Gonzalez MD Last Vital Signs Date Time Temp Pulse Resp B/P (MAP) Pulse Ox O2 Delivery O2 Flow Rate FiO2 05/13/18 03:25 98.0 68 18 135/70 98 Room Air 05/12/18 22:57 99 Status: improved Disposition: ADMITTED INPATIENT Condition: Critical Gulshan Gonzalez MD May 12, 2018 23:10
[2018-05-13] VITALS (19 sets, daily range): BP systolic 105–142; BP diastolic 40–98
[2018-05-13 00:30] LABS: BASOPHILS % (AUTO) 0.9 % (0.0-2.0); EOSINOPHILS % (AUTO) 3.8 % (0.0-3.0); HEMATOCRIT 37.1 % (37.0-47.0); HEMOGLOBIN 11.9 G/DL (12.0-16.0); LYMPHOCYTES % (AUTO) 13.1 % (20.0-45.0); MEAN CORPUSCULAR VOLUME 81 FL (80-99); MONOCYTES % (AUTO) 12.2 % (1.0-10.0); NEUTROPHILS % (AUTO) 69.9 % (45.0-75.0); PLATELET COUNT 211 K/UL (150-450); RED BLOOD COUNT 4.56 M/UL (4.20-5.40); RED CELL DISTRIBUTION WIDTH 13.6 % (11.6-14.8); WHITE BLOOD COUNT 6.8 K/UL (4.8-10.8)
[2018-05-13 00:57] LABS: BILIRUBIN, URINE NEGATIVE (NEGATIVE); GLUCOSE, URINE (UA) 4+ (NEGATIVE); KETONES,URINE 3+ (NEGATIVE); LEUKOCYTE ESTERASE ,URINE 3+ (NEGATIVE); NITRITE,URINE NEGATIVE (NEGATIVE); PH,URINE 5 (4.5-8.0); PROTEIN,URINE 2+ (NEGATIVE); UROBILINOGEN,URINE NORMAL MG/DL (0.0-1.0)
[2018-05-13 01:03] LABS: ALANINE AMINOTRANSFERASE 527 U/L (12-78); ALBUMIN 3.1 G/DL (3.4-5.0); ALBUMIN/GLOBULIN RATIO 0.8 (1.0-2.7); ALKALINE PHOSPHATASE 585 U/L (46-116); ANION GAP 14 mmol/L (5-15); ASPARTATE AMINO TRANSFERASE 166 U/L (15-37); BILIRUBIN,TOTAL 1.2 MG/DL (0.2-1.0); BLOOD UREA NITROGEN 39 mg/dL (7-18); CALCIUM 8.3 MG/DL (8.5-10.1); CARBON DIOXIDE 19 MMOL/L (21-32); CHLORIDE 94 MMOL/L (98-107); CREATINE KINASE 95 U/L (26-308); CREATININE 1.8 MG/DL (0.55-1.30); POTASSIUM 5.5 MMOL/L (3.5-5.1); SODIUM 127 MMOL/L (136-145)
[2018-05-13 01:08] LABS: BILIRUBIN,DIRECT 0.7 MG/DL (0.0-0.3)
[2018-05-13 01:09] LABS: APPEARANCE,URINE CLOUDY; COLOR,URINE YELLOW
[2018-05-13] MEDS ORDERED: Piperacillin/Tazobactam 3.375 GM in NS 110 ML IVPB ONE (01:15)
[2018-05-13] MEDS ORDERED: NS 110 ML ONE (02:40)
[2018-05-13] MEDS ORDERED: Insulin Human Regular 100units/ml 3ml ONE (02:40)
--- NOTE | 2018-05-13 04:03 | NUR ---
ED Nurse Note: bs 378, iv drip titrated to 6unitsper hour. will continue to monitor.
--- NOTE | 2018-05-13 04:14 | NUR ---
ED Nurse Note: pt is admitted in the hospital report given to piyush fitzpatrick. pt trasnfered to icu.
--- NOTE | 2018-05-13 05:00 | NUR ---
NURSE NOTES: Report received from WAYNE Figueroa. New admission from ER to ICU due to DKA, UTI, pt's 72yo Camero[place] female, AOx4, verbally responsive, in no acute distress. VS stable. Current BS is 313, on insulin drip at 6 units/hr, was given 1L of NS in the ER, along with Zosyn and Flagyl. Pt denies any other concerns/complaints at this time. Controlled Afib on content editor. O2 sat 100% with RA. NPO at this time. No skin issues. Noted Left AC 22G and right forearm 22G, intact and patent. Call light within reach. Bed in low and locked position. Paged Dr Lew for admitting orders, waiting for his call. Will continue to monitor.
--- NOTE | 2018-05-13 06:00 | NUR ---
NURSE NOTES: Pt's resting in bed, in no acute distress. VS stable. Awaiting for Dr Lew to call back. Continue insulin drip protocol from ER. Will continue to monitor.
--- NOTE | 2018-05-13 07:30 | NUR ---
NURSE NOTES: Received patient lying in bed, awake, able to communicate needs, no complains of pain. Requested moisturizer for dry lips, patient is NPO. On room air, respirations even and unlabored. Running insulin drip for DKA at 4 units/hr to left AC peripheral IV line, asymptomatic. Right forearm IV line, saline lock. Atrial Fibrillation on the monitor, rate of 90. Safety measures implemented, call light within reach. Remains NPO. Will contact Dr. Lew for admission orders.
--- NOTE | 2018-05-13 07:30 | NUR ---
HAND-OFF: Report given to WAYNE Cerda.
[2018-05-13 07:46] LABS: BASOPHILS % (AUTO) 0.5 % (0.0-2.0); EOSINOPHILS % (AUTO) 3.2 % (0.0-3.0); HEMATOCRIT 29.1 % (37.0-47.0); HEMOGLOBIN 9.7 G/DL (12.0-16.0); LYMPHOCYTES % (AUTO) 18.1 % (20.0-45.0); MEAN CORPUSCULAR VOLUME 80 FL (80-99); MONOCYTES % (AUTO) 14.4 % (1.0-10.0); NEUTROPHILS % (AUTO) 63.8 % (45.0-75.0); PLATELET COUNT 179 K/UL (150-450); RED BLOOD COUNT 3.65 M/UL (4.20-5.40); RED CELL DISTRIBUTION WIDTH 13.5 % (11.6-14.8); WHITE BLOOD COUNT 5.3 K/UL (4.8-10.8)
[2018-05-13 07:47] LABS: ALANINE AMINOTRANSFERASE 406 U/L (12-78); ALBUMIN 2.5 G/DL (3.4-5.0); ALBUMIN/GLOBULIN RATIO 0.7 (1.0-2.7); ALKALINE PHOSPHATASE 464 U/L (46-116); ANION GAP 12 mmol/L (5-15); ASPARTATE AMINO TRANSFERASE 123 U/L (15-37); BILIRUBIN,TOTAL 0.7 MG/DL (0.2-1.0); BLOOD UREA NITROGEN 31 mg/dL (7-18); CALCIUM 7.5 MG/DL (8.5-10.1); CARBON DIOXIDE 17 MMOL/L (21-32); CHLORIDE 105 MMOL/L (98-107); CREATININE 1.5 MG/DL (0.55-1.30); POTASSIUM 4.2 MMOL/L (3.5-5.1); SODIUM 134 MMOL/L (136-145)
--- NOTE | 2018-05-13 07:50 | NUR ---
NURSE NOTES: Contacted Dr. Lew for admission orders.
--- NOTE | 2018-05-13 08:00 | NUR ---
NURSE NOTES: Received admission orders from Dr. Lew, patient for insulin drip start algorithm 1, NPO, labs, venous duplex of bilateral lower extremity, PRN medication orders, US of abdomen pending per ER order and relayed blood sugar results. Orders noted and carried out.
--- NOTE | 2018-05-13 08:04 | History & Physical ---
History and Physical History & Physicial 72-year-old female presents with diabetic ketoacidosis A. The patient presented with sore throat chills and dehydration. Patient noted some associated abdominal discomfortPatient just returned from a cruise in [place].. The patient started on insulin drip and admitted to the ICU. Past medical history Diabetes hypertension hypercholesterolemia Medications and allergies reviewed and reconciled Review of systems overall reviewed Patient overall with weakness and fatigue Physical examination well-developed female Vital signs 126/55, 89, 24, saturation 100%, patient afebrile HEENT otherwise fairly negative lungs fairly clear and symmetric cardiac exam normal S1-S2 regular rate rhythm Abdomen soft nontender Extremities no cyanosis clubbing or edema Neurologically grossly nonfocal Labs Test 05/12/18 23:50 05/13/18 00:27 05/13/18 07:15 White Blood Count 6.8 K/UL (4.8-10.8) 5.3 K/UL (4.8-10.8) Red Blood Count 4.56 M/UL (4.20-5.40) 3.65 M/UL (4.20-5.40) Hemoglobin 11.9 G/DL (12.0-16.0) 9.7 G/DL (12.0-16.0) Hematocrit 37.1 % (37.0-47.0) 29.1 % (37.0-47.0) Mean Corpuscular Volume 81 FL (80-99) 80 FL (80-99) Mean Corpuscular Hemoglobin 26.2 PG (27.0-31.0) 26.7 PG (27.0-31.0) Mean Corpuscular Hemoglobin Concent 32.2 G/DL (32.0-36.0) 33.4 G/DL (32.0-36.0) Red Cell Distribution Width 13.6 % (11.6-14.8) 13.5 % (11.6-14.8) Platelet Count 211 K/UL (150-450) 179 K/UL (150-450) Mean Platelet Volume 6.8 FL (6.5-10.1) 6.7 FL (6.5-10.1) Neutrophils (%) (Auto) 69.9 % (45.0-75.0) 63.8 % (45.0-75.0) Lymphocytes (%) (Auto) 13.1 % (20.0-45.0) 18.1 % (20.0-45.0) Monocytes (%) (Auto) 12.2 % (1.0-10.0) 14.4 % (1.0-10.0) Eosinophils (%) (Auto) 3.8 % (0.0-3.0) 3.2 % (0.0-3.0) Basophils (%) (Auto) 0.9 % (0.0-2.0) 0.5 % (0.0-2.0) Prothrombin Time 10.7 SEC (9.30-11.50) Prothromb Time International Ratio 1.0 (0.9-1.1) Activated Partial Thromboplast Time 26 SEC (23-33) Sodium Level 127 MMOL/L (136-145) 134 MMOL/L (136-145) Potassium Level 5.5 MMOL/L (3.5-5.1) 4.2 MMOL/L (3.5-5.1) Chloride Level 94 MMOL/L (98-107) 105 MMOL/L (98-107) Carbon Dioxide Level 19 MMOL/L (21-32) 17 MMOL/L (21-32) Anion Gap 14 mmol/L (5-15) 12 mmol/L (5-15) Blood Urea Nitrogen 39 mg/dL (7-18) 31 mg/dL (7-18) Creatinine 1.8 MG/DL (0.55-1.30) 1.5 MG/DL (0.55-1.30) Estimat Glomerular Filtration Rate 27.8 mL/min (>60) 34.4 mL/min (>60) Glucose Level 568 MG/DL (74-106) 208 MG/DL (74-106) Uric Acid 7.3 MG/DL (2.6-7.2) Calcium Level 8.3 MG/DL (8.5-10.1) 7.5 MG/DL (8.5-10.1) Magnesium Level 2.1 MG/DL (1.8-2.4) Total Bilirubin 1.2 MG/DL (0.2-1.0) 0.7 MG/DL (0.2-1.0) Direct Bilirubin 0.7 MG/DL (0.0-0.3) Aspartate Amino Transf (AST/SGOT) 166 U/L (15-37) 123 U/L (15-37) Alanine Aminotransferase (ALT/SGPT) 527 U/L (12-78) 406 U/L (12-78) Alkaline Phosphatase 585 U/L (46-116) 464 U/L (46-116) Total Creatine Kinase 95 U/L (26-308) Troponin I 0.022 ng/mL (0.000-0.056) Pro-B-Type Natriuretic Peptide 2846 pg/mL (0-125) Total Protein 7.2 G/DL (6.4-8.2) 5.9 G/DL (6.4-8.2) Albumin 3.1 G/DL (3.4-5.0) 2.5 G/DL (3.4-5.0) Globulin 4.1 g/dL 3.4 g/dL Albumin/Globulin Ratio 0.8 (1.0-2.7) 0.7 (1.0-2.7) Lipase > 2000 U/L (73-393) Urine Color Yellow Urine Appearance Cloudy Urine pH 5 (4.5-8.0) Urine Specific [place] 1.010 (1.005-1.035) Urine Protein 2+ (NEGATIVE) Urine Glucose (UA) 4+ (NEGATIVE) Urine Ketones 3+ (NEGATIVE) Urine Blood 2+ (NEGATIVE) Urine Nitrite Negative (NEGATIVE) Urine Bilirubin Negative (NEGATIVE) Urine Urobilinogen Normal MG/DL (0.0-1.0) Urine Leukocyte Esterase 3+ (NEGATIVE) Urine RBC 5-10 /HPF (0 - 2) Urine WBC Tntc /HPF (0 - 2) Urine Squamous Epithelial Cells Few /LPF (NONE/OCC) Urine Bacteria Many /HPF (NONE) Urine Yeast Moderate /HPF (NONE) Lactic Acid Level 1.60 mmol/L (0.4-2.0) Impression Diabetic ketoacidosis Anemia Transaminitis of unclear etiology Severe protein calorie malnutrition Evidence of pancreatitis Acute renal failure Hyperglycemia Diabetes Hyponatremia Metabolic acidosis Hypercholesterolemia Plan DKA protocol with IV hydration and insulin drip Renal and GI evaluation Monitor liver enzymes and renal function Hold home medications including diuretics Hold statin ICU care management and will transfer and disposition once patient improves Jesus Lew MD May 13, 2018 08:04
[2018-05-13] MEDS ORDERED: Milk of Magnesia 30ml Ud ORAL PRN (08:15)
[2018-05-13] MEDS ORDERED: Insulin Human Regular 100units/ml 3ml IV PRN (08:15)
[2018-05-13] MEDS: Pantoprazole Inj IVP SCH (08:57)
[2018-05-13] MEDS: Insulin Rate Change 1 Each MISC PRN ×6 (09:01→22:25)
--- NOTE | 2018-05-13 10:00 | NUR ---
NURSE NOTES: Patient's brother at bedside. Patient's respirations even and unlabored. No complains of pain. Call light within reach.
--- NOTE | 2018-05-13 10:09 | Diagnostic Imaging Report ---
Indication: Abdominal pain Technique: Daly-scale and duplex images of the upper abdomen were obtained. Doppler interrogation of the hepatic and pancreatic vessels Comparison: none Findings: Gallbladder demonstrates gallstones and sludge. No gallbladder wall thickening. No pericholecystic fluid. Sonographic Pollard's sign is negative. Common bile duct measures 4 mm in diameter. No intrahepatic biliary ductal dilatation. Liver demonstrates normal echogenicity, no focal abnormality. Portal vein and hepatic veins are patent. Pancreas is unremarkable. Spleen is unremarkable. Left kidney measures 9.8 cm in length. Right kidney measures 10.4 cm length. Both kidneys demonstrate normal echogenicity. There is no hydronephrosis. An echogenic focus is seen adjacent to the right renal sinus. . Non-aneurysmal abdominal aorta . Impression: Cholelithiasis. Negative for dilated ducts Possible small nonobstructive right renal calculus Findings discussed by phone with Dr. Jewell at the time of interpretation
--- NOTE | 2018-05-13 10:10 | General Progress Note ---
Assessment/Plan Assessment/Plan Assessment - DKA - Abnormal LFT - Urolithiasis - Cholelithiasis - DM - CAD/CABG - Gout Recommendations - follow LFT - Check hepatitis serologies - Will consider MRCP (Once out of ICU) - Check CPK total - Po diet ad rand Thank you Mary Jewell MD Subjective Allergies: Coded Allergies: No Known Allergies (Unverified , 04/30/17) Objective Last 24 Hour Vital Signs Date Time Temp Pulse Resp B/P (MAP) Pulse Ox O2 Delivery O2 Flow Rate FiO2 05/13/18 07:00 89 24 126/55 (78) 100 05/13/18 06:30 Room Air 05/13/18 06:00 85 24 127/64 (85) 100 05/13/18 05:14 Room Air 05/13/18 05:00 90 05/13/18 04:56 98.0 90 24 105/73 (84) 100 05/13/18 04:14 98.0 68 18 135/75 98 Room Air 05/13/18 03:25 98.0 68 18 135/70 98 Room Air 05/13/18 00:16 98.7 05/12/18 22:57 96 18 Room Air 99 05/12/18 22:57 98.8 67 18 143/63 98 Room Air 05/12/18 22:37 98.8 96 18 143/63 98 Room Air Intake and Output 05/12/18 05/13/18 18:59 06:59 Intake Total 1110 ml Output Total 300 ml Balance 810 ml Intake IV Total 1110 ml Output Urine Total 300 ml Laboratory Tests 05/12/18 23:50: White Blood Count 6.8, Red Blood Count 4.56, Hemoglobin 11.9L, Hematocrit 37.1, Mean Corpuscular Volume 81, Mean Corpuscular Hemoglobin 26.2L, Mean Corpuscular Hemoglobin Concent 32.2, Red Cell Distribution Width 13.6, Platelet Count 211, Mean Platelet Volume 6.8, Neutrophils (%) (Auto) 69.9, Lymphocytes (%) (Auto) 13.1L, Monocytes (%) (Auto) 12.2H, Eosinophils (%) (Auto) 3.8H, Basophils (%) ( Auto) 0.9, Prothrombin Time 10.7, Prothromb Time International Ratio 1.0, Activated Partial Thromboplast Time 26, Sodium Level 127L, Potassium Level 5.5H , Chloride Level 94L, Carbon Dioxide Level 19L, Anion Gap 14, Blood Urea Nitrogen 39H, Creatinine 1.8H, Estimat Glomerular Filtration Rate 27.8, Glucose Level 568*H, Uric Acid 7.3H, Calcium Level 8.3L, Magnesium Level 2.1, Total Bilirubin 1.2H, Direct Bilirubin 0.7H, Aspartate Amino Transf (AST/SGOT) 166H, Alanine Aminotransferase (ALT/SGPT) 527H, Alkaline Phosphatase 585H, Total Creatine Kinase 95, Troponin I 0.022, Pro-B-Type Natriuretic Peptide 2846H, Total Protein 7.2, Albumin 3.1L, Globulin 4.1, Albumin/Globulin Ratio 0.8L, Lipase > 2000H 05/13/18 00:27: Urine Color Yellow, Urine Appearance Cloudy, Urine pH 5, Urine Specific [place] 1.010, Urine Protein 2+H, Urine Glucose (UA) 4+H, Urine Ketones 3+H, Urine Blood 2+H, Urine Nitrite Negative, Urine Bilirubin Negative, Urine Urobilinogen Normal, Urine Leukocyte Esterase 3+H, Urine RBC 5-10H, Urine WBC TntcH, Urine Squamous Epithelial Cells Few, Urine Bacteria ManyH, Urine Yeast ModerateH, Lactic Acid Level 1.60 05/13/18 07:15: White Blood Count 5.3, Red Blood Count 3.65L, Hemoglobin 9.7L, Hematocrit 29.1L , Mean Corpuscular Volume 80, Mean Corpuscular Hemoglobin 26.7L, Mean Corpuscular Hemoglobin Concent 33.4, Red Cell Distribution Width 13.5, Platelet Count 179, Mean Platelet Volume 6.7, Neutrophils (%) (Auto) 63.8, Lymphocytes (% ) (Auto) 18.1L, Monocytes (%) (Auto) 14.4H, Eosinophils (%) (Auto) 3.2H, Basophils (%) (Auto) 0.5, Sodium Level 134L, Potassium Level 4.2, Chloride Level 105, Carbon Dioxide Level 17L, Anion Gap 12, Blood Urea Nitrogen 31H, Creatinine 1.5H, Estimat Glomerular Filtration Rate 34.4, Glucose Level 208#H, Calcium Level 7.5L, Total Bilirubin 0.7, Aspartate Amino Transf (AST/SGOT) 123H , Alanine Aminotransferase (ALT/SGPT) 406H, Alkaline Phosphatase 464H, Total Protein 5.9L, Albumin 2.5L, Globulin 3.4, Albumin/Globulin Ratio 0.7L, Hemoglobin A1c 11.4H Height (Feet): 4 Height (Inches): 10.00 Weight (Pounds): 158 Mary Jewell MD May 13, 2018 10:10
--- NOTE | 2018-05-13 11:53 | Diagnostic Imaging Report ---
Indication: Shortness of breath Technique: One view of the chest Comparison: 08/24/2017 Findings: Heart is enlarged. There is bilateral interstitial and airspace congestion, mild. There is central bronchial wall thickening. Guarding or atelectasis is seen in the left midlung. No focal airspace consolidation. No definite effusion. There is evidence of prior median sternotomy Impression: Mild cardiomegaly Mild bilateral interstitial and airspace congestion Other findings as noted
--- NOTE | 2018-05-13 12:30 | NUR ---
NURSE NOTES: Patient calm and comfortable. Ice packs provided for febrile episode. Will recheck temperature again. No complains at this time.
--- NOTE | 2018-05-13 14:00 | NUR ---
NURSE NOTES: Patient asleep, no complains of pain. Oral care and mouth swab provided.
[2018-05-13] MEDS: D5NS 1,000 ML IV SCH (15:37)
--- NOTE | 2018-05-13 15:45 | Consultation ---
DATE OF CONSULTATION: 05/13/2018 GASTROENTEROLOGY CONSULTATION CONSULTING PHYSICIAN: Mary Jewell M.D. REFERRING PHYSICIAN: Jesus Lew M.D. CHIEF COMPLAINT: I was asked to see this patient by Dr. Lew for evaluation of abnormal liver tests. HISTORY OF PRESENT ILLNESS: The patient is a 72-year-old M[place]ese woman, who was in a cruise and had a gout attack in her foot. She subsequently cut down her oral intake, but then she became sick and nauseous and came to emergency room at [facility] afterwards where she was noted to have diabetic ketoacidosis. The patient did have some abdominal discomfort, sore throat and chills prior to presentation. She is now in the ICU on an insulin drip and feels better. The patient has had no previous liver history, GI history, hepatitis history or drinking history. The patient has no family history of liver disease. Her last endoscopy and colonoscopy was about five years ago and she says they were unremarkable. PAST MEDICAL HISTORY: History of diabetes and coronary artery disease, status post coronary artery bypass graft procedure. History of gout. PAST SURGICAL HISTORY: Status post coronary artery bypass graft procedure and status post x3. FAMILY HISTORY: Noncontributory. SOCIAL HISTORY: The patient does not smoke or drink alcohol. MEDICATIONS: See chart list for details. REVIEW OF SYSTEMS: Otherwise negative. PHYSICAL EXAMINATION: GENERAL: Pleasant [place]ese woman seen in the ICU. HEENT: Normocephalic and atraumatic. Sclerae anicteric. Oropharynx clear. NECK: Supple. CHEST: Clear to auscultation. CARDIOVASCULAR: Revealed regular rate. ABDOMEN: Soft. Good bowel sounds. There is no organomegaly or tenderness. Anterior chest and abdomen scars were as expected. EXTREMITIES: Revealed no edema. LABORATORY DATA: Noted. ASSESSMENT: This patient presents with abnormal liver tests of unclear etiology. Her ultrasound was reviewed with the radiologist and it showed gallstones and kidney stones, but there was no evidence of cholecystitis or biliary ductal dilatation, or liver lesions or fatty liver on ultrasound. She may have passed the stone and therefore her room liver tests will have to be trended. In addition, I will order an MRCP to rule out any remaining common bile duct stones. I will also order hepatitis B and C serologies to rule out any underlying hepatitis. However, at this time she is asymptomatic from GI standpoint and therefore can be managed conservatively. Should the workup be negative and liver tests remain to be abnormal, then further evaluation and serology testing will be necessary. RECOMMENDATIONS: Per above discussion and per orders written in the chart. Thank you for asking me to participate in the care of this patient. Mary Jewell M.D. DR: NETTA JOB#: [id number] CC:
--- NOTE | 2018-05-13 16:00 | NUR ---
NURSE NOTES: Patient asleep. No complains of pain. No acute distress. Will continue to monitor. Remains on insulin drip.
--- NOTE | 2018-05-13 17:20 | NUR ---
*-* INSURANCE *-* CLINICALS FAXED TO: [id number] F:[phone]
--- NOTE | 2018-05-13 18:25 | NUR ---
NURSE NOTES: Patient request bedbath, noted with generalized redness mainly to upper and lower body, very warm to touch. Yellow scab with crust noted to lips and very dry lips noted, oral mucosa ulceration quarter size noted to back of throat, patient has some pain with oral care. Patient had no complains of pain, no SOB, no itchiness. Temperature was 102.8F per oral. Bed bath provided, cooling measures initiated with ice packs to head, armpits and groin. Patient stated that she took tylenol before and does not recall having any reaction. Insulin held at this time for possible reaction. Dr. Lew contacted.
--- NOTE | 2018-05-13 19:08 | NUR ---
NURSE NOTES: Dr. Lew contacted, made aware of assessments noted on patient. Received orders to continue insulin drip and IV fluid as ordered, voltaren 25mg TID PO, Rocephin 1 gm IV daily, azithromycin 500 mg IV daily, Stat labs as ordered: CBC, lactic, CMP, blood cultures x2, culture throat and urine culture. Orders noted. Will also endorse to securities adviser RN.
--- NOTE | 2018-05-13 19:40 | NUR ---
NURSE NOTES: Patient complained of SOB and was feeling anxiety, restless, bed kept at high baires's position, place on 2 Lpm, saturating 95% on NC. Patient felt better with HOB elevated.
--- NOTE | 2018-05-13 19:45 | NUR ---
HAND-OFF: Report given to WAYNE Poole.
--- NOTE | 2018-05-13 20:07 | NUR ---
NURSE NOTES: Spoke with Pharmacist Abel, informed that Algorithm 2 was used since 11:00 am per insulin protocol, no re-order of insulin for algorithm 2 was placed at that time by RN. Patient remains stable, blood sugar being controlled and followed insulin protocol. Endorsed to NOC RN.
--- NOTE | 2018-05-13 20:08 | NUR ---
NURSE NOTES: Endorsement received from WAYNE Cerda. GCS 15. on 2LPM per nasal cannula. Noted crusting on the lips and whitish film in the mouth, scatterred redness on the torso and extremities. As per patient, no itchiness, no pain. As per morning shift nurse, Dr Lew aware. With left AC g22 and right forearm g22. Ongoing Insulin drip 5 units/hr algorithm 2 and D5NS 100ml/hr. Head of bed elevated. Call light within reach. BEd alarm on.
--- NOTE | 2018-05-13 20:25 | NUR ---
CASE MANAGEMENT: REVIEW 72/F BIBA FROM HOME CC: ABD PAIN SI: SEPSIS . DKA T 98.8 HR 96 RR 18 BP 143/63 SAT 98% ROOM AIR GLUCOSE 568 NA 134 BUN 31 CR 1.5 AVANI 7.5 IS: NS IVF BOLUS X1 COLCHICINE PO X1 ZOSYN IV X1 NOVOLIN R IV X1 PATIENT ADMITTED TO ICU 05/12/2018 DCP: PATIENT IS FROM HOME
[2018-05-13 20:26] LABS: BASOPHILS % (AUTO) 0.7 % (0.0-2.0); EOSINOPHILS % (AUTO) 2.9 % (0.0-3.0); HEMATOCRIT 34.7 % (37.0-47.0); HEMOGLOBIN 11.3 G/DL (12.0-16.0); LYMPHOCYTES % (AUTO) 28.5 % (20.0-45.0); MEAN CORPUSCULAR VOLUME 81 FL (80-99); MONOCYTES % (AUTO) 16.5 % (1.0-10.0); NEUTROPHILS % (AUTO) 51.5 % (45.0-75.0); PLATELET COUNT 221 K/UL (150-450); RED BLOOD COUNT 4.31 M/UL (4.20-5.40); RED CELL DISTRIBUTION WIDTH 13.5 % (11.6-14.8); WHITE BLOOD COUNT 8.5 K/UL (4.8-10.8)
[2018-05-13] MEDS: Insulin Human Regular 100units/ml 3ml IV PRN ×2 (20:27→21:11)
[2018-05-13 20:30] LABS: ANION GAP 18 mmol/L (5-15); BLOOD UREA NITROGEN 24 mg/dL (7-18); CALCIUM 8.1 MG/DL (8.5-10.1); CARBON DIOXIDE 14 MMOL/L (21-32); CHLORIDE 107 MMOL/L (98-107); CREATININE 1.2 MG/DL (0.55-1.30); POTASSIUM 5.1 MMOL/L (3.5-5.1); SODIUM 139 MMOL/L (136-145)
[2018-05-13 20:41] LABS: ALANINE AMINOTRANSFERASE 389 U/L (12-78); ALBUMIN 2.8 G/DL (3.4-5.0); ALBUMIN/GLOBULIN RATIO 0.8 (1.0-2.7); ALKALINE PHOSPHATASE 501 U/L (46-116); ASPARTATE AMINO TRANSFERASE 124 U/L (15-37); BILIRUBIN,TOTAL 1.2 MG/DL (0.2-1.0)
[2018-05-13 20:42] LABS: BILIRUBIN,DIRECT 0.8 MG/DL (0.0-0.3)
--- NOTE | 2018-05-13 21:00 | Consultation ---
DATE OF CONSULTATION: 05/13/2018 NEPHROLOGY CONSULTATION CONSULTING PHYSICIAN: Charo Hyman M.D. ATTENDING PHYSICIAN: Jesus Lew M.D. REASON FOR CONSULTATION: Elevated BUN and creatinine. HISTORY OF PRESENT ILLNESS: This is a 72-year-old female, who presented to the hospital with diabetic ketoacidosis. I am asked to see the patient for elevation of BUN, creatinine, and metabolic acidosis. PAST MEDICAL HISTORY: 1. Type 2 diabetes mellitus. 2. Hypertensive cardiovascular disease. 3. Hypercholesterolemia. MEDICATIONS: Intravenous fluids, insulin sliding scale, intravenous Flagyl, Tylenol, intravenous Zosyn, colchicine, milk of magnesium, Mylanta, and Protonix. ALLERGIES: No known drug allergies. FAMILY HISTORY: Unremarkable. SOCIAL HISTORY: She lives at home. HABITS: She is nonsmoker and nondrinker. There is no history of illicit drug abuse. REVIEW OF SYSTEMS: HEENT: Hearing normal. Eyesight slightly diminished. ENDOCRINE: Significant for multiorgan type 2 diabetes mellitus. RESPIRATORY: She denies shortness of breath, cough, or hemoptysis. CARDIOVASCULAR: She denies shortness of breath, cough, or hemoptysis. PHYSICAL EXAMINATION: GENERAL: This is an elderly female, who is in no acute distress. VITAL SIGNS: Blood pressure 123/51, pulse 89 and regular, respirations 20, and temperature 98. HEENT: The head is normocephalic and atraumatic. Pupils are equal, round, and reactive to light and accommodation consensually. NECK: Supple. Trachea midline. There is no lymphadenopathy or thyromegaly. LUNGS: Clear to auscultation and percussion. HEART: Regular rate and rhythm without rubs, murmurs, or gallops. ABDOMEN: Soft and nontender. Bowel sounds were active. EXTREMITIES: No clubbing, cyanosis, or edema. NEUROLOGIC: She is alert and oriented x4. Cranial nerves II through XII intact. LABORATORY AND ANCILLARY DATA: Sodium 134, potassium 4.2, CO2 17, BUN 31, and creatinine 1.5. EGFR 35. Glucose 208. Hemoglobin A1c 11.4. AST 123, ALT 406, and alkaline phosphatase 464. Urinalysis, specific gravity 1.01, 2+ protein, 4+ glucose, iph-[id number]-[id number]-count white blood cells, and many bacteria. ASSESSMENT: 1. 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 2. Diabetic ketoacidosis. PLAN: 1. Continue current therapy. 2. Monitor laboratory results. Thank you, Dr. Lew, for letting me participate in the care of this patient. Charo Hyman M.D. DR: KIRTI JOB#: [id number] CC:
--- NOTE | 2018-05-13 21:00 | NUR ---
NURSE NOTES: Patient still with fever. Cooling measures initiated. Bed bath done. Applied purewick.
[2018-05-13] MEDS ORDERED: cefTRIAXone 1 GM in D5W 55 ML IVPB SCH (21:30)
[2018-05-13] MEDS ORDERED: Diclofenac 25mg tab ORAL SCH (22:00)
--- NOTE | 2018-05-13 22:00 | NUR ---
NURSE NOTES: Dr. Lew informed of stat lab results. As per him no new order at this time. Also informed him that voltaren tablet is not available in the pharmacy.
[2018-05-13] MEDS ORDERED: Azithromycin 500 MG in D5W 275 ML IV SCH (23:00)
[2018-05-14] VITALS (24 sets, daily range): BP systolic 97–136; BP diastolic 46–82
--- NOTE | 2018-05-14 | NUR ---
NURSE NOTES: blood sugar still not within target range after 3 hours, increased to algorithm 4 as per protocol.
[2018-05-14] MEDS: D5NS 1,000 ML IV SCH (01:30)
--- NOTE | 2018-05-14 02:00 | NUR ---
NURSE NOTES: Patient asleep. Afebrile.
--- NOTE | 2018-05-14 03:25 | NUR ---
NURSE NOTES: Endorsed to [facility] for continuity of care.
--- NOTE | 2018-05-14 03:30 | NUR ---
NURSE NOTES: Received report from WAYNE Poole. Patient lying in bed, asleep, able to communicate needs, no complains of pain. Patient is NPO. On 2L/NC, respirations even and unlabored, O2 sat 100%. Running insulin drip for DKA at 2 units/hr to left AC peripheral IV line, asymptomatic. Right forearm IV line, running D5NS at 100ml/hr. Atrial Fibrillation on the monitor, rate of 90. Safety measures implemented, call light within reach. Will continue to monitor.
[2018-05-14 05:34] LABS: EOSINOPHILS % (AUTO) 2.7 % (0.0-3.0); HEMOGLOBIN 10.6 G/DL (12.0-16.0); LYMPHOCYTES % (AUTO) 25.3 % (20.0-45.0); MEAN CORPUSCULAR VOLUME 80 FL (80-99); MONOCYTES % (AUTO) 19.8 % (1.0-10.0); NEUTROPHILS % (AUTO) 51.1 % (45.0-75.0); PLATELET COUNT 194 K/UL (150-450); RED CELL DISTRIBUTION WIDTH 13.6 % (11.6-14.8); WHITE BLOOD COUNT 5.1 K/UL (4.8-10.8)
--- NOTE | 2018-05-14 06:00 | NUR ---
NURSE NOTES: Pt's resting in bed, asleep, in no acute distress. VS stable. Will continue to monitor.
[2018-05-14 06:08] LABS: ALANINE AMINOTRANSFERASE 322 U/L (12-78); ALBUMIN 2.5 G/DL (3.4-5.0); ALBUMIN/GLOBULIN RATIO 0.7 (1.0-2.7); ALKALINE PHOSPHATASE 426 U/L (46-116); ANION GAP 10 mmol/L (5-15); ASPARTATE AMINO TRANSFERASE 97 U/L (15-37); BILIRUBIN,TOTAL 0.8 MG/DL (0.2-1.0); BLOOD UREA NITROGEN 20 mg/dL (7-18); CALCIUM 7.5 MG/DL (8.5-10.1); CARBON DIOXIDE 22 MMOL/L (21-32); CHLORIDE 111 MMOL/L (98-107); CREATININE 1.2 MG/DL (0.55-1.30); POTASSIUM 4.7 MMOL/L (3.5-5.1); SODIUM 143 MMOL/L (136-145)
[2018-05-14 06:22] LABS: CREATINE KINASE 110 U/L (26-308)
--- NOTE | 2018-05-14 07:20 | NUR ---
NURSE NOTES: Ax temp 102.6, Tylenol 650mg given as per ordered. Cooling measures applied.
--- NOTE | 2018-05-14 07:25 | NUR ---
NURSE NOTES: Received pt from WAYNE Chappell. A/Ox4, opens eyes spontaneously, able to follow commands. Insulin drip @ 2units/hr running through LAC 22G. RFA 22G running D5NS@100cc/hr. Patient is controlled AFib on media monitor, HR 95-102. Denies any pain at this time, only chills. Tylenol given as ax. temp 102.6. NPO status maintained. 2LNC SPo2 98%. Bilateral B/S diminished. Bed locked, alarmed and in lowest position.
--- NOTE | 2018-05-14 07:30 | NUR ---
HAND-OFF: Report given to WAYNE Canales.
[2018-05-14] MEDS: Pantoprazole Inj IVP SCH (09:01)
--- NOTE | 2018-05-14 09:55 | General Progress Note ---
Assessment/Plan Assessment/Plan Impression Diabetic ketoacidosis Anemia Transaminitis of unclear etiology Severe protein calorie malnutrition Evidence of pancreatitis Acute renal failure Hyperglycemia Diabetes Hyponatremia Metabolic acidosis Hypercholesterolemia fever oral ulcers dc insulin drip Renal and GI evaluation ID evaluation Monitor liver enzymes and renal function; noted Hold home medications including diuretics Hold statin check cultures ICU care management and will transfer and disposition once patient improves Subjective Allergies: Coded Allergies: No Known Allergies (Unverified , 04/30/17) Subjective fevers overnight Objective Last 24 Hour Vital Signs Date Time Temp Pulse Resp B/P (MAP) Pulse Ox O2 Delivery O2 Flow Rate FiO2 05/14/18 08:10 101.3 05/14/18 08:00 Nasal Cannula 2.0 05/14/18 07:00 99.1 95 19 125/67 (86) 100 05/14/18 06:00 93 19 135/72 (93) 100 05/14/18 05:00 91 19 135/61 (85) 100 05/14/18 04:00 98.5 90 17 125/54 (77) 100 05/14/18 04:00 Nasal Cannula 2.0 05/14/18 04:00 90 05/14/18 03:00 89 17 97/65 (76) 100 05/14/18 02:00 86 19 113/63 (80) 100 05/14/18 01:00 85 17 118/55 (76) 100 05/14/18 00:00 91 22 106/54 (71) 100 05/14/18 00:00 Nasal Cannula 2.0 05/13/18 23:00 95 22 121/53 (75) 100 05/13/18 22:00 99.0 97 20 117/54 (75) 100 05/13/18 21:00 100.0 105 24 123/53 (76) 100 05/13/18 20:00 102 05/13/18 20:00 Nasal Cannula 2.0 05/13/18 20:00 102.0 98 32 121/74 (90) 98 05/13/18 18:49 100.9 98 05/13/18 18:30 101 29 96 05/13/18 18:20 102.8 97 05/13/18 18:00 97 24 136/55 (82) 97 05/13/18 17:00 96 22 130/59 (82) 98 05/13/18 16:00 Room Air 05/13/18 16:00 111 05/13/18 16:00 94 22 130/63 (85) 99 05/13/18 15:00 89 18 123/51 (75) 99 05/13/18 14:00 85 17 142/98 (113) 100 05/13/18 13:00 99.6 84 19 123/49 (73) 98 05/13/18 12:00 93 05/13/18 12:00 Room Air 05/13/18 12:00 100.3 89 20 109/96 (100) 100 05/13/18 11:00 99 22 106/42 (63) 98 05/13/18 10:00 100 21 127/82 (97) 99 Intake and Output 05/13/18 05/14/18 18:59 06:59 Intake Total 163.03 ml 1549.19 ml Output Total 300 ml 400 ml Balance -136.97 ml 1149.19 ml Intake IV Total 163.03 ml 1549.19 ml Output Urine Total 300 ml 400 ml # Voids 1 Laboratory Tests 05/13/18 14:46: Arterial Blood pH 7.428, Arterial Blood Partial Pressure CO2 29.4L, Arterial Blood Partial Pressure O2 78.2, Arterial Blood HCO3 19.0L, Arterial Blood Oxygen Saturation 95.5, Arterial Blood Base Excess -4.4L, Marlon Test Positive 05/13/18 19:20: White Blood Count 8.5#, Red Blood Count 4.31, Hemoglobin 11.3L, Hematocrit 34.7L , Mean Corpuscular Volume 81, Mean Corpuscular Hemoglobin 26.1L, Mean Corpuscular Hemoglobin Concent 32.4, Red Cell Distribution Width 13.5, Platelet Count 221, Mean Platelet Volume 6.5, Neutrophils (%) (Auto) 51.5, Lymphocytes (% ) (Auto) 28.5, Monocytes (%) (Auto) 16.5H, Eosinophils (%) (Auto) 2.9, Basophils (%) (Auto) 0.7, Sodium Level 139, Potassium Level 5.1, Chloride Level 107, Carbon Dioxide Level 14L, Anion Gap 18H, Blood Urea Nitrogen 24H, Creatinine 1.2, Estimat Glomerular Filtration Rate 44.4, Glucose Level 238H, Lactic Acid Level 2.50H, Calcium Level 8.1L, Total Bilirubin 1.2H, Direct Bilirubin 0.8H, Aspartate Amino Transf (AST/SGOT) 124H, Alanine Aminotransferase (ALT/SGPT) 389H, Alkaline Phosphatase 501H, Total Protein 6.2L , Albumin 2.8L, Globulin 3.4, Albumin/Globulin Ratio 0.8L 05/13/18 20:36: Lactic Acid Level [Pending] 05/13/18 22:40: Lactic Acid Level 3.00H 05/14/18 05:10: White Blood Count 5.1, Red Blood Count 4.00L, Hemoglobin 10.6L, Hematocrit 32.0L , Mean Corpuscular Volume 80, Mean Corpuscular Hemoglobin 26.4L, Mean Corpuscular Hemoglobin Concent 33.0, Red Cell Distribution Width 13.6, Platelet Count 194, Mean Platelet Volume 6.3L, Neutrophils (%) (Auto) 51.1, Lymphocytes ( %) (Auto) 25.3, Monocytes (%) (Auto) 19.8H, Eosinophils (%) (Auto) 2.7, Basophils (%) (Auto) 1.0, Sodium Level 143, Potassium Level 4.7, Chloride Level 111H, Carbon Dioxide Level 22, Anion Gap 10, Blood Urea Nitrogen 20H, Creatinine 1.2, Estimat Glomerular Filtration Rate 44.4, Glucose Level 123#H, Lactic Acid Level 2.20H, Calcium Level 7.5L, Total Bilirubin 0.8, Aspartate Amino Transf (AST/SGOT) 97H, Alanine Aminotransferase (ALT/SGPT) 322H, Alkaline Phosphatase 426H, Total Creatine Kinase 110, Total Protein 6.0L, Albumin 2.5L, Globulin 3.5, Albumin/Globulin Ratio 0.7L, Hepatitis A IgM Antibody [Pending], Hepatitis B Surface Antigen [Pending], Hepatitis B Core IgM Antibody [Pending], Hepatitis C Antibody [Pending] 05/14/18 08:36: Lactic Acid Level 1.60 Height (Feet): 4 Height (Inches): 10.00 Weight (Pounds): 157 Objective WDWN NAD clear breath sounds bilaterally without rhonchi or wheeze [id number] without MRG NABS nontender no HSM no CCE nonfocal oral ulcers with some drainage noted alert Jesus Lew MD May 14, 2018 09:55
--- NOTE | 2018-05-14 09:58 | NUR ---
NURSE NOTES: Received orders to discontinue insulin drip, start CCHO medium diet with puree texture, ACHS avg. sliding scale, discontinue D5NS and start NS@100cc/hr. Read back given and verified. Marlee Lew. Addendum: 05/14/18 at 1032 by BETSY ALTMAN RN Blood sugar @1000 was 93.
--- NOTE | 2018-05-14 10:23 | NUR ---
NURSE NOTES: Pt kept dry and clean. Ax temp 100.1, cooling measures continued. C/o of dry lips, A&D given.
[2018-05-14 10:25] LABS: ALANINE AMINOTRANSFERASE 292 U/L (12-78); ALBUMIN 2.3 G/DL (3.4-5.0); ALBUMIN/GLOBULIN RATIO 0.7 (1.0-2.7); ALKALINE PHOSPHATASE 387 U/L (46-116); ANION GAP 10 mmol/L (5-15); ASPARTATE AMINO TRANSFERASE 89 U/L (15-37); BILIRUBIN,TOTAL 0.9 MG/DL (0.2-1.0); BLOOD UREA NITROGEN 18 mg/dL (7-18); CALCIUM 7.6 MG/DL (8.5-10.1); CARBON DIOXIDE 20 MMOL/L (21-32); CHLORIDE 111 MMOL/L (98-107); POTASSIUM 3.8 MMOL/L (3.5-5.1); SODIUM 141 MMOL/L (136-145)
--- NOTE | 2018-05-14 10:52 | Nephrology Progress Note ---
Assessment/Plan Plan MAMADOU + DKA resolving Subjective Subjective No c/o Objective Objective Last 24 Hour Vital Signs Date Time Temp Pulse Resp B/P (MAP) Pulse Ox O2 Delivery O2 Flow Rate FiO2 05/14/18 08:10 101.3 05/14/18 08:00 Nasal Cannula 2.0 05/14/18 07:00 99.1 95 19 125/67 (86) 100 05/14/18 06:00 93 19 135/72 (93) 100 05/14/18 05:00 91 19 135/61 (85) 100 05/14/18 04:00 98.5 90 17 125/54 (77) 100 05/14/18 04:00 Nasal Cannula 2.0 05/14/18 04:00 90 05/14/18 03:00 89 17 97/65 (76) 100 05/14/18 02:00 86 19 113/63 (80) 100 05/14/18 01:00 85 17 118/55 (76) 100 05/14/18 00:00 91 22 106/54 (71) 100 05/14/18 00:00 Nasal Cannula 2.0 05/13/18 23:00 95 22 121/53 (75) 100 05/13/18 22:00 99.0 97 20 117/54 (75) 100 05/13/18 21:00 100.0 105 24 123/53 (76) 100 05/13/18 20:00 102 05/13/18 20:00 Nasal Cannula 2.0 05/13/18 20:00 102.0 98 32 121/74 (90) 98 05/13/18 18:49 100.9 98 05/13/18 18:30 101 29 96 05/13/18 18:20 102.8 97 05/13/18 18:00 97 24 136/55 (82) 97 05/13/18 17:00 96 22 130/59 (82) 98 05/13/18 16:00 Room Air 05/13/18 16:00 111 05/13/18 16:00 94 22 130/63 (85) 99 05/13/18 15:00 89 18 123/51 (75) 99 05/13/18 14:00 85 17 142/98 (113) 100 05/13/18 13:00 99.6 84 19 123/49 (73) 98 05/13/18 12:00 93 05/13/18 12:00 Room Air 05/13/18 12:00 100.3 89 20 109/96 (100) 100 05/13/18 11:00 99 22 106/42 (63) 98 Intake and Output 05/13/18 05/14/18 18:59 06:59 Intake Total 163.03 ml 1549.19 ml Output Total 300 ml 400 ml Balance -136.97 ml 1149.19 ml Intake IV Total 163.03 ml 1549.19 ml Output Urine Total 300 ml 400 ml # Voids 1 Laboratory Tests 05/13/18 14:46: Arterial Blood pH 7.428, Arterial Blood Partial Pressure CO2 29.4L, Arterial Blood Partial Pressure O2 78.2, Arterial Blood HCO3 19.0L, Arterial Blood Oxygen Saturation 95.5, Arterial Blood Base Excess -4.4L, Marlon Test Positive 05/13/18 19:20: White Blood Count 8.5#, Red Blood Count 4.31, Hemoglobin 11.3L, Hematocrit 34.7L , Mean Corpuscular Volume 81, Mean Corpuscular Hemoglobin 26.1L, Mean Corpuscular Hemoglobin Concent 32.4, Red Cell Distribution Width 13.5, Platelet Count 221, Mean Platelet Volume 6.5, Neutrophils (%) (Auto) 51.5, Lymphocytes (% ) (Auto) 28.5, Monocytes (%) (Auto) 16.5H, Eosinophils (%) (Auto) 2.9, Basophils (%) (Auto) 0.7, Sodium Level 139, Potassium Level 5.1, Chloride Level 107, Carbon Dioxide Level 14L, Anion Gap 18H, Blood Urea Nitrogen 24H, Creatinine 1.2, Estimat Glomerular Filtration Rate 44.4, Glucose Level 238H, Lactic Acid Level 2.50H, Calcium Level 8.1L, Total Bilirubin 1.2H, Direct Bilirubin 0.8H, Aspartate Amino Transf (AST/SGOT) 124H, Alanine Aminotransferase (ALT/SGPT) 389H, Alkaline Phosphatase 501H, Total Protein 6.2L , Albumin 2.8L, Globulin 3.4, Albumin/Globulin Ratio 0.8L 05/13/18 20:36: Lactic Acid Level [Pending] 05/13/18 22:40: Lactic Acid Level 3.00H 05/14/18 05:10: White Blood Count 5.1, Red Blood Count 4.00L, Hemoglobin 10.6L, Hematocrit 32.0L , Mean Corpuscular Volume 80, Mean Corpuscular Hemoglobin 26.4L, Mean Corpuscular Hemoglobin Concent 33.0, Red Cell Distribution Width 13.6, Platelet Count 194, Mean Platelet Volume 6.3L, Neutrophils (%) (Auto) 51.1, Lymphocytes ( %) (Auto) 25.3, Monocytes (%) (Auto) 19.8H, Eosinophils (%) (Auto) 2.7, Basophils (%) (Auto) 1.0, Sodium Level 143, Potassium Level 4.7, Chloride Level 111H, Carbon Dioxide Level 22, Anion Gap 10, Blood Urea Nitrogen 20H, Creatinine 1.2, Estimat Glomerular Filtration Rate 44.4, Glucose Level 123#H, Lactic Acid Level 2.20H, Calcium Level 7.5L, Total Bilirubin 0.8, Aspartate Amino Transf (AST/SGOT) 97H, Alanine Aminotransferase (ALT/SGPT) 322H, Alkaline Phosphatase 426H, Total Creatine Kinase 110, Total Protein 6.0L, Albumin 2.5L, Globulin 3.5, Albumin/Globulin Ratio 0.7L, Hepatitis A IgM Antibody [Pending], Hepatitis B Surface Antigen [Pending], Hepatitis B Core IgM Antibody [Pending], Hepatitis C Antibody [Pending] 05/14/18 08:36: Sodium Level 141, Potassium Level 3.8, Chloride Level 111H, Carbon Dioxide Level 20L, Anion Gap 10, Blood Urea Nitrogen 18, Creatinine 1.0, Estimat Glomerular Filtration Rate 54.8, Glucose Level 136H, Lactic Acid Level 1.60, Calcium Level 7.6L, Total Bilirubin 0.9, Aspartate Amino Transf (AST/SGOT) 89H, Alanine Aminotransferase (ALT/SGPT) 292H, Alkaline Phosphatase 387H, Total Protein 5.5L, Albumin 2.3L, Globulin 3.2, Albumin/Globulin Ratio 0.7L Height (Feet): 4 Height (Inches): 10.00 Weight (Pounds): 157 Objective CV RR Lungs CTA Abd SNT. BS + E No CCE Charo Hyman MD May 14, 2018 10:51
[2018-05-14] MEDS ORDERED: Isovue-300 100ml vial INJ PRN (11:15)
--- NOTE | 2018-05-14 11:16 | NUR ---
Social Work This Sw met with patient, currently in the ICU, who remains alert/oriented x4, with the support of her sister, Yoly Rousseau ([phone]) as needed. Patient does not have an Advance Directive, while requesting full code, full treatment at this time. Patient explains she lives with her sister, who plans for sister to assist, as needed upon discharge. Patient was independent with ADLs, ambulation and was using a cane or walker (still driving). Patient denied any history of mental health concerns or substance abuse. Patient had been using home care prior (in March), but unsure the name of the agency at this time. Pending progress; patient plans to discharge to home with sister to assist (home care recommended, as needed).
[2018-05-14] MEDS: NovoLOG Insulin Flexpen SUBQ SCH ×3 (11:41→20:45)
--- NOTE | 2018-05-14 12:42 | NUR ---
NURSE NOTES: Received orders for Acyclovir 400mg PO TID per Dr. Melendez. Read back given and verified. Patient reports allergic reactions to shell fish, notified Dr. Melendez as patient has orders for CT abd w/contrast. Updated orders for CT abd w/o contrast.
--- NOTE | 2018-05-14 12:45 | NUR ---
NURSE NOTES: Ax temp 101. 3, Tylenol given as per ordered.
--- NOTE | 2018-05-14 13:00 | NUR ---
NURSE NOTES: Took patient down to CT, tolerated well.
--- NOTE | 2018-05-14 14:00 | Consultation ---
DATE OF CONSULTATION: 05/14/2018 INFECTIOUS DISEASES CONSULTATION CONSULTING PHYSICIAN: Khadra Melendez M.D. REFERRING PHYSICIAN: Jesus Lew M.D. REASON FOR CONSULTATION: Pneumonia. HISTORY OF PRESENTING ILLNESS: This is a 72-year-old lady with history of diabetes, hypertension, and hypercholesterolemia, who comes in with diabetic ketoacidosis. She also had some fever and chills and sore throat. There was a concern for pneumonia and an Infectious Diseases consultation has been obtained for antibiotics. PAST MEDICAL HISTORY: 1. History of diabetes. 2. Hypertension. 3. Hypercholesterolemia. SOCIAL HISTORY: She does not smoke, drink, or use drugs. FAMILY HISTORY: Noncontributory. REVIEW OF SYSTEMS: RESPIRATORY: She had fever and chills. She does have some cough. No shortness of breath or chest pain. CARDIAC: No chest pain. No palpitations. No dizziness. No syncope. GASTROINTESTINAL: No nausea. No vomiting. No abdominal pain or diarrhea. MEDICATIONS: As an inpatient, she is on insulin, azithromycin, ceftriaxone, Protonix, Tylenol, Mylanta, and milk of magnesia. ALLERGIES: No known drug allergies. PHYSICAL EXAMINATION: VITAL SIGNS: Temperature of 101.3, T-max of 102.8, pulse of 95, respiratory rate 19, blood pressure 125/57, and O2 saturation 100%. HEENT: Pupils equally reactive to light and accommodation. Lip hyperpigmented noted. NECK: Supple. No adenopathy. No JVD. CARDIOVASCULAR: Regular rate and rhythm. No murmurs. LUNGS: Clear to auscultation bilaterally. No crackles. No wheezes. ABDOMEN: Soft and nontender. No organomegaly. EXTREMITIES: No cyanosis, no clubbing, no edema. LABORATORY AND DIAGNOSTIC DATA: White count 5.1, hemoglobin 10.6, hematocrit 32, MCV 80, platelet count of 194. Sodium 141, potassium 3.8, chloride 111, bicarb 20, BUN 18, creatinine 1, glucose 136, and calcium 7.6. Total bilirubin 0.9. AST 89, ALT 292, and alkaline phosphatase 387. Total protein 5.5. Albumin 2.3. Lipase of more than 2000. UA showing too numerous to count white cells. Nasal swab was negative for influenza A and B. Abdominal ultrasound showing cholelithiasis, negative for dilated ducts, possible small nonobstructive right renal calculus noted. Chest x-ray showing mild cardiomegaly, mild bilateral interstitial and airspace congestion. No consolidation noted. ASSESSMENT: This is a 72-year-old lady with history of diabetes, hypertension, and hypercholesterolemia, who comes in with diabetic ketoacidosis and was found to have: 1. Pancreatitis. 2. Fever. 3. I would like to rule out cholecystitis as a possibility. 4. Elevated liver function tests. 5. Urinary tract infection. PLAN: 1. We will order blood cultures. 2. We will order urine cultures. 3. Discontinue ceftriaxone and azithromycin. 4. We will start the patient on Zosyn. 5. We will order CT abdomen and pelvis. 6. We will follow up cultures. I would like to thank, Dr. Lew, for this consultation. Kharda Melendez M.D. DR: VANESSA JOB#: [id number] CC: Jesus Lew M.D.; Fax#: [phone]
[2018-05-14] MEDS: Piperacillin/Tazobactam 3.375 GM in D5W 110 ML IVPB SCH ×2 (14:09→21:47)
--- NOTE | 2018-05-14 14:22 | General Progress Note ---
Assessment/Plan Assessment/Plan Assessment - DKA - Abnormal LFT - improving - Urolithiasis - Cholelithiasis - DM - CAD/CABG - Gout Recommendations - follow LFT - Check hepatitis serologies - Pending - Will consider MRCP (Once out of ICU) - Check CPK total - normal - Po diet ad rand Subjective Allergies: Coded Allergies: SHELLFISH DERIVED (Verified Allergy, Unknown, swelling and itchiness, 05/14) Subjective fever noted c/o fatigue no cough or abd pain Objective Last 24 Hour Vital Signs Date Time Temp Pulse Resp B/P (MAP) Pulse Ox O2 Delivery O2 Flow Rate FiO2 05/14/18 13:00 114 25 133/64 (87) 100 05/14/18 12:00 108 23 134/60 (84) 100 05/14/18 12:00 108 05/14/18 12:00 Nasal Cannula 2.0 05/14/18 11:00 96 22 123/53 (76) 100 05/14/18 10:00 94 23 121/51 (74) 100 05/14/18 09:00 98 23 108/53 (71) 100 05/14/18 08:10 101.3 05/14/18 08:00 Nasal Cannula 2.0 05/14/18 08:00 95 05/14/18 08:00 97 26 132/57 (82) 100 05/14/18 07:00 99.1 95 19 125/67 (86) 100 05/14/18 06:00 93 19 135/72 (93) 100 05/14/18 05:00 91 19 135/61 (85) 100 05/14/18 04:00 98.5 90 17 125/54 (77) 100 05/14/18 04:00 Nasal Cannula 2.0 05/14/18 04:00 90 05/14/18 03:00 89 17 97/65 (76) 100 05/14/18 02:00 86 19 113/63 (80) 100 05/14/18 01:00 85 17 118/55 (76) 100 05/14/18 00:00 91 22 106/54 (71) 100 05/14/18 00:00 Nasal Cannula 2.0 05/13/18 23:00 95 22 121/53 (75) 100 05/13/18 22:00 99.0 97 20 117/54 (75) 100 05/13/18 21:00 100.0 105 24 123/53 (76) 100 05/13/18 20:00 102 05/13/18 20:00 Nasal Cannula 2.0 05/13/18 20:00 102.0 98 32 121/74 (90) 98 05/13/18 18:49 100.9 98 05/13/18 18:30 101 29 96 05/13/18 18:20 102.8 97 05/13/18 18:00 97 24 136/55 (82) 97 05/13/18 17:00 96 22 130/59 (82) 98 05/13/18 16:00 Room Air 05/13/18 16:00 111 05/13/18 16:00 94 22 130/63 (85) 99 05/13/18 15:00 89 18 123/51 (75) 99 Intake and Output 05/13/18 05/14/18 19:00 07:00 Intake Total 263.03 ml 1551.21 ml Output Total 300 ml 400 ml Balance -36.97 ml 1151.21 ml Intake IV Total 263.03 ml 1551.21 ml Output Urine Total 300 ml 400 ml # Voids 1 Laboratory Tests 05/13/18 14:46: Arterial Blood pH 7.428, Arterial Blood Partial Pressure CO2 29.4L, Arterial Blood Partial Pressure O2 78.2, Arterial Blood HCO3 19.0L, Arterial Blood Oxygen Saturation 95.5, Arterial Blood Base Excess -4.4L, Marlon Test Positive 05/13/18 19:20: White Blood Count 8.5#, Red Blood Count 4.31, Hemoglobin 11.3L, Hematocrit 34.7L , Mean Corpuscular Volume 81, Mean Corpuscular Hemoglobin 26.1L, Mean Corpuscular Hemoglobin Concent 32.4, Red Cell Distribution Width 13.5, Platelet Count 221, Mean Platelet Volume 6.5, Neutrophils (%) (Auto) 51.5, Lymphocytes (% ) (Auto) 28.5, Monocytes (%) (Auto) 16.5H, Eosinophils (%) (Auto) 2.9, Basophils (%) (Auto) 0.7, Sodium Level 139, Potassium Level 5.1, Chloride Level 107, Carbon Dioxide Level 14L, Anion Gap 18H, Blood Urea Nitrogen 24H, Creatinine 1.2, Estimat Glomerular Filtration Rate 44.4, Glucose Level 238H, Lactic Acid Level 2.50H, Calcium Level 8.1L, Total Bilirubin 1.2H, Direct Bilirubin 0.8H, Aspartate Amino Transf (AST/SGOT) 124H, Alanine Aminotransferase (ALT/SGPT) 389H, Alkaline Phosphatase 501H, Total Protein 6.2L , Albumin 2.8L, Globulin 3.4, Albumin/Globulin Ratio 0.8L 05/13/18 20:36: Lactic Acid Level [Pending] 05/13/18 22:40: Lactic Acid Level 3.00H 05/14/18 05:10: White Blood Count 5.1, Red Blood Count 4.00L, Hemoglobin 10.6L, Hematocrit 32.0L , Mean Corpuscular Volume 80, Mean Corpuscular Hemoglobin 26.4L, Mean Corpuscular Hemoglobin Concent 33.0, Red Cell Distribution Width 13.6, Platelet Count 194, Mean Platelet Volume 6.3L, Neutrophils (%) (Auto) 51.1, Lymphocytes ( %) (Auto) 25.3, Monocytes (%) (Auto) 19.8H, Eosinophils (%) (Auto) 2.7, Basophils (%) (Auto) 1.0, Sodium Level 143, Potassium Level 4.7, Chloride Level 111H, Carbon Dioxide Level 22, Anion Gap 10, Blood Urea Nitrogen 20H, Creatinine 1.2, Estimat Glomerular Filtration Rate 44.4, Glucose Level 123#H, Lactic Acid Level 2.20H, Calcium Level 7.5L, Total Bilirubin 0.8, Aspartate Amino Transf (AST/SGOT) 97H, Alanine Aminotransferase (ALT/SGPT) 322H, Alkaline Phosphatase 426H, Total Creatine Kinase 110, Total Protein 6.0L, Albumin 2.5L, Globulin 3.5, Albumin/Globulin Ratio 0.7L, Hepatitis A IgM Antibody [Pending], Hepatitis B Surface Antigen [Pending], Hepatitis B Core IgM Antibody [Pending], Hepatitis C Antibody [Pending] 05/14/18 08:36: Sodium Level 141, Potassium Level 3.8, Chloride Level 111H, Carbon Dioxide Level 20L, Anion Gap 10, Blood Urea Nitrogen 18, Creatinine 1.0, Estimat Glomerular Filtration Rate 54.8, Glucose Level 136H, Lactic Acid Level 1.60, Calcium Level 7.6L, Total Bilirubin 0.9, Aspartate Amino Transf (AST/SGOT) 89H, Alanine Aminotransferase (ALT/SGPT) 292H, Alkaline Phosphatase 387H, Total Protein 5.5L, Albumin 2.3L, Globulin 3.2, Albumin/Globulin Ratio 0.7L Height (Feet): 4 Height (Inches): 10.00 Weight (Pounds): 157 Objective WDWN NCAT supple CTA RRR abd soft, ND no edema non focal Mary Jewell MD May 14, 2018 14:22
--- NOTE | 2018-05-14 14:46 | NUR ---
NURSE NOTES: Patient requested a bed bath. Open sores seen in perineal area and buttocks. Skin barrier cream applied. Ax temp 99.8. Tolerated lunch meal well, ate 75%. IVF and IV abx infusing well. Resting in bed with eyes closed. 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 Awaiting for reply back.
--- NOTE | 2018-05-14 15:30 | NUR ---
*-* INSURANCE *-* CLINICALS FAXED TO: [id number] F:[phone]
--- NOTE | 2018-05-14 16:16 | Diagnostic Imaging Report ---
Indication: Abdominal pain Technique: Spiral acquisitions obtained through the abdomen and pelvis. Patient ingested oral contrast. No IV contrast utilized, per referring physician request.. Multiplanar reconstructions were generated. Total dose length product 677.16 mGycm. CTDIvol(s) 14.56 mGy. Dose reduction achieved using automated exposure control Comparison: None. Reference made to abdomen ultrasound dated 05/13/2018 Findings: There are a few colonic diverticula. No evidence of diverticulitis. The appendix is normal. No small bowel distention or small bowel wall thickening. Ingested contrast is seen throughout the entirety of the small bowel and into the distal colon. No free or loculated intraperitoneal gas or fluid is evident. The distal esophagus, stomach, duodenum are unremarkable. Lack of IV contrast limits assessment of the solid organs. The liver is grossly unremarkable. The gallbladder contains a few small calcified gallstones. The bile ducts are nondilated. The pancreas, spleen, adrenals, kidneys, ureters, bladder are all unremarkable. No retroperitoneal or mesenteric mass or adenopathy. No pelvic mass or adenopathy. The uterus demonstrates scattered calcifications, is otherwise unremarkable. The adnexal structures are unremarkable There are degenerative changes of the lumbar spine. The included lung bases demonstrate bilateral small pleural effusions, dependent and compressive atelectatic changes. There is also some reticular opacity in the visualized inferior lingula Impression: Small bilateral pleural effusions. Basilar compressive and dependent atelectatic changes. No acute abdominal or pelvic abnormality Cholelithiasis, also previously described. No secondary findings to suggest acute cholecystitis Diverticulosis. No evidence of diverticulitis Incidental finding of degenerative lumbar spondylosis. Note that suspected right renal calculus described on recent ultrasound is not evident on this exam, presumably artifactual on the prior study. A small calcification in the renal hilum is probably arterial The CT scanner at [facility] is accredited by the [employer] and the scans are performed using protocols designed to limit radiation exposure to as low as reasonably achievable to attain images of sufficient resolution adequate for diagnostic evaluation.
[2018-05-14] MEDS ORDERED: D5NS 1000ml IV ONE (16:52)
--- NOTE | 2018-05-14 16:56 | NUR ---
NURSE NOTES: O.K. to transfer to tele per Dr. Lew
--- NOTE | 2018-05-14 19:33 | NUR ---
HAND-OFF: Report given to Gideon Sandra RN using SBAR. No s/sx of acute distress noted.
--- NOTE | 2018-05-14 19:45 | NUR ---
NURSE NOTES: Patient alert, oriented x4, denied pain, respiration regular, tachypnea on O2 2LPM via NC, o2 saturation 97% noted, abdomen soft, hyperactive bowel sound x4 quadrants, no bowel movement, voided with pure wick, dark kira color outed, peripheral line to left ac and right forearm intact and patent, ongoing NS at 100ml/hr status, provided call light within reach, made lower bed position, will continue to monitor.
--- NOTE | 2018-05-14 20:06 | NUR ---
NURSE NOTES: Given Tylenol 650mg by po for temp 102.6F, applied cooling measure, will continue to monitor.
--- NOTE | 2018-05-14 22:21 | NUR ---
NURSE NOTES: Patient asleep status.
[2018-05-15] VITALS (21 sets, daily range): BP systolic 92–153; BP diastolic 36–89
--- NOTE | 2018-05-15 00:05 | NUR ---
NURSE NOTES: Patient denied pain or distress at this time, will continue to monitor.
--- NOTE | 2018-05-15 02:10 | NUR ---
NURSE NOTES: Asleep status, no acute distress noted at this time.
--- NOTE | 2018-05-15 04:20 | NUR ---
NURSE NOTES: Temp 100.6F noted that Given Tylenol 650mg by po as prn ordered, will continue to monitor.
[2018-05-15] MEDS: Piperacillin/Tazobactam 3.375 GM in D5W 110 ML IVPB SCH ×3 (05:34→21:30)
--- NOTE | 2018-05-15 06:00 | NUR ---
NURSE NOTES: Morning care and oral care was done, no bowel movement.
[2018-05-15] MEDS: NovoLOG Insulin Flexpen SUBQ SCH ×4 (06:09→21:22)
--- NOTE | 2018-05-15 07:19 | NUR ---
HAND-OFF: Report given to MARGIE/WAYNE.
[2018-05-15 07:26] LABS: HEMATOCRIT 27.1 % (37.0-47.0); HEMOGLOBIN 8.9 G/DL (12.0-16.0); MEAN CORPUSCULAR VOLUME 81 FL (80-99); PLATELET COUNT 145 K/UL (150-450); RED BLOOD COUNT 3.36 M/UL (4.20-5.40); RED CELL DISTRIBUTION WIDTH 14.6 % (11.6-14.8); WHITE BLOOD COUNT 2.5 K/UL (4.8-10.8)
--- NOTE | 2018-05-15 08:00 | NUR ---
NURSE NOTES: Received patient from WAYNE Meneses. Patient alert, oriented x4, denied pain, respiration regular, tachypnea on O2 2LPM via NC, o2 saturation 97% noted, abdomen soft, hyperactive bowel sound x4 quadrants, no bowel movement, voided with pure wick, dark kira color outed, peripheral line to left ac and right forearm intact and patent, ongoing NS at 100ml/hr status, provided call light within reach, made lower bed position, will continue to monitor.
[2018-05-15] MEDS: Pantoprazole Inj IVP SCH (09:00)
--- NOTE | 2018-05-15 10:00 | NUR ---
NURSE NOTES: Pt asleep at the moment. Ate 50% of breakfast
--- NOTE | 2018-05-15 11:00 | Infectious Diseases Prog Note ---
Assessment/Plan Assessment/Plan antibiotics : zosyn A 1. pancreatitis 2. herpes of lip improving 3. diabetic ketoacidosis 4. increased LFT improving 5. fever 6. hypertension P 1. continue zosyn 2. will follow up cultures Subjective Constitutional: Denies: fever, chills Respiratory: Denies: shortness of breath, dry cough Gastrointestinal/Abdominal: Denies: nausea, vomiting, diarrhea Musculoskeletal: Denies: pain Allergies: Coded Allergies: SHELLFISH DERIVED (Verified Allergy, Unknown, swelling and itchiness, 05/14) Objective Vital Signs Last 24 Hour Vital Signs Date Time Temp Pulse Resp B/P (MAP) Pulse Ox O2 Delivery O2 Flow Rate FiO2 05/15/18 09:00 97.5 95 23 134/66 (88) 100 05/15/18 08:00 96 22 127/49 (75) 100 05/15/18 08:00 93 05/15/18 07:00 93 26 112/54 (73) 100 05/15/18 06:00 99 26 122/55 (77) 100 05/15/18 05:00 100.5 108 27 105/56 (72) 100 05/15/18 04:50 100.5 05/15/18 04:00 Nasal Cannula 2.0 05/15/18 04:00 100.6 115 28 100/59 (73) 98 05/15/18 03:28 112 05/15/18 03:00 113 25 123/66 (85) 98 05/15/18 02:00 104 25 92/36 (54) 99 05/15/18 01:00 98 25 120/51 (74) 98 05/15/18 00:00 Nasal Cannula 2.0 05/15/18 00:00 99.8 107 26 104/53 (70) 98 05/14/18 23:34 103 05/14/18 23:00 107 26 97/56 (70) 97 05/14/18 22:00 112 25 102/50 (67) 98 05/14/18 21:00 101.9 112 24 97/50 (66) 97 05/14/18 20:00 102.6 106 31 110/53 (72) 97 05/14/18 20:00 Nasal Cannula 2.0 05/14/18 19:31 121 05/14/18 19:00 112 29 124/82 (96) 97 05/14/18 18:00 95 29 136/62 (86) 99 05/14/18 17:00 99 26 122/62 (82) 99 05/14/18 16:00 99.7 99 26 122/82 (95) 98 05/14/18 16:00 108 05/14/18 16:00 Nasal Cannula 2.0 05/14/18 15:00 104 26 121/59 (79) 100 05/14/18 14:00 99.8 108 27 115/46 (69) 97 05/14/18 13:00 114 25 133/64 (87) 100 05/14/18 12:00 108 23 134/60 (84) 100 05/14/18 12:00 108 05/14/18 12:00 Nasal Cannula 2.0 05/14/18 11:00 96 22 123/53 (76) 100 Height (Feet): 4 Height (Inches): 10.00 Weight (Pounds): 162 HEENT: other - lip lesions improving Respiratory/Chest: lungs clear Cardiovascular: normal rate, regular rhythm, no gallop/murmur Abdomen: soft, non tender Extremities: other - + edema Microbiology Date/Time Source Procedure Growth Status 05/13/18 19:20 Blood Blood Culture - Preliminary NO GROWTH AFTER 24 HOURS Resulted 05/13/18 19:20 Blood Blood Culture - Preliminary NO GROWTH AFTER 24 HOURS Resulted 05/13/18 05:40 Blood Blood Culture - Preliminary NO GROWTH AFTER 24 HOURS Resulted 05/13/18 05:35 Blood Blood Culture - Preliminary NO GROWTH AFTER 24 HOURS Resulted 05/13/18 19:20 Throat Throat Culture - Preliminary NO GROWTH Resulted 05/13/18 03:55 Nasal Nares MRSA Culture - Final NO METHICILLIN RESISTANT STAPH AUREUS... Complete 05/13/18 00:27 Nasal Nares Influenza Types A,B Antigen (TIAGO) - Final Complete 05/14/18 06:00 Urine,Clean Catch Urine Culture - Preliminary NO GROWTH Resulted 05/13/18 03:55 Rectum - Final NO CARBAPENEM-RESISTANT ENTEROBACTERI... Complete 05/13/18 03:55 Rectum VRE Culture - Final NO VANCOMYCIN RESISTANT ENTEROCOCCUS ... Complete Laboratory Tests Test 05/15/18 06:30 White Blood Count 2.5 K/UL (4.8-10.8) #L Red Blood Count 3.36 M/UL (4.20-5.40) L Hemoglobin 8.9 G/DL (12.0-16.0) L Hematocrit 27.1 % (37.0-47.0) L Mean Corpuscular Volume 81 FL (80-99) Mean Corpuscular Hemoglobin 26.6 PG (27.0-31.0) L Mean Corpuscular Hemoglobin Concent 33.0 G/DL (32.0-36.0) Red Cell Distribution Width 14.6 % (11.6-14.8) Platelet Count 145 K/UL (150-450) L Mean Platelet Volume 6.4 FL (6.5-10.1) L Neutrophils (%) (Auto) % (45.0-75.0) Lymphocytes (%) (Auto) % (20.0-45.0) Monocytes (%) (Auto) % (1.0-10.0) Eosinophils (%) (Auto) % (0.0-3.0) Basophils (%) (Auto) % (0.0-2.0) Differential Total Cells Counted 100 Neutrophils % (Manual) 45 % (45-75) Lymphocytes % (Manual) 38 % (20-45) Monocytes % (Manual) 16 % (1-10) H Eosinophils % (Manual) 1 % (0-3) Basophils % (Manual) 0 % (0-2) Band Neutrophils 0 % (0-8) Platelet Estimate Decreased L Platelet Morphology Normal Hypochromasia 2+ Anisocytosis 1+ Microcytosis 1+ Current Medications Medications (Trade) Dose Ordered Sig/Ellen Route PRN Reason Start Time Stop Time Status Last Admin Dose Admin Acetaminophen (Tylenol) 650 mg Q4H PRN ORAL Mild Pain/Temp > 100.5 05/13/18 08:15 06/12/18 08:14 05/15/18 04:20 Acyclovir (Zovirax) 400 mg EVERY 8 HOURS ORAL 05/14/18 14:00 06/13/18 13:59 05/15/18 05:33 Al Hydroxide/Mg Hydroxide (Mylanta) 30 ml Q6H PRN ORAL Abdominal cramps 05/13/18 08:15 06/12/18 08:14 Barium Sulfate (Readi-Cat 2) 450 ml NOW PRN ORAL Radiology Procedure 05/14/18 11:15 05/16/18 11:02 Barium Sulfate (Readi-Cat 2) 450 ml NOW PRN ORAL Radiology Procedure 05/14/18 12:00 05/16/18 11:53 Dextrose (Dextrose 50%) 25 ml Q30M PRN IV Hypoglycemia 05/14/18 10:15 06/13/18 10:14 Dextrose (Dextrose 50%) 50 ml Q30M PRN IV Hypoglycemia 05/14/18 10:15 06/13/18 10:14 Insulin Aspart (NovoLOG) BEFORE MEALS AND HS SUBQ 05/14/18 11:30 06/13/18 11:29 05/15/18 06:09 Iopamidol (Isovue-300 100ml) 100 ml NOW PRN INJ Radiology Procedure 05/14/18 11:15 05/15/18 11:14 Magnesium Hydroxide (Mom) 30 ml DAILYPRN PRN ORAL Constipation 05/13/18 08:15 06/12/18 08:14 Pantoprazole (Protonix) 40 mg DAILY IVP 05/13/18 09:00 06/12/18 08:59 05/15/18 09:00 Piperacillin Sod/ Tazobactam Sod 3.375 gm/Dextrose 110 ml @ 27.5 mls/hr EVERY 8 HOURS IVPB 05/14/18 14:00 05/19/18 13:59 05/15/18 05:34 Sodium Chloride 1,000 ml @ 100 mls/hr Q10H IV 05/14/18 10:15 06/13/18 10:14 05/15/18 06:08 Khadra Melendez MD May 15, 2018 11:00
--- NOTE | 2018-05-15 12:00 | NUR ---
NURSE NOTES: Changed, repositioned patient. oral care provided.
--- NOTE | 2018-05-15 14:00 | NUR ---
NURSE NOTES: Pt resting comfortably in bed.
--- NOTE | 2018-05-15 14:06 | General Progress Note ---
Assessment/Plan Assessment/Plan Assessment - DKA - Abnormal LFT - improving - Urolithiasis - Cholelithiasis - DM - CAD/CABG - Gout Recommendations - follow LFT - Check hepatitis serologies - Pending - Will consider MRCP (Once out of ICU) - Check CPK total - normal Subjective ROS Limited/Unobtainable: Yes Allergies: Coded Allergies: SHELLFISH DERIVED (Verified Allergy, Unknown, swelling and itchiness, 05/14) Objective Last 24 Hour Vital Signs Date Time Temp Pulse Resp B/P (MAP) Pulse Ox O2 Delivery O2 Flow Rate FiO2 05/15/18 13:00 98.0 110 23 130/66 (87) 100 05/15/18 12:00 114 27 153/82 (105) 100 05/15/18 12:00 114 05/15/18 12:00 Nasal Cannula 2.0 05/15/18 11:00 104 24 137/83 (101) 100 05/15/18 10:00 97 22 119/53 (75) 100 05/15/18 09:00 97.5 95 23 134/66 (88) 100 05/15/18 08:00 96 22 127/49 (75) 100 05/15/18 08:00 Nasal Cannula 2.0 05/15/18 08:00 93 05/15/18 07:00 93 26 112/54 (73) 100 05/15/18 06:00 99 26 122/55 (77) 100 05/15/18 05:00 100.5 108 27 105/56 (72) 100 05/15/18 04:50 100.5 05/15/18 04:00 Nasal Cannula 2.0 05/15/18 04:00 100.6 115 28 100/59 (73) 98 05/15/18 03:28 112 05/15/18 03:00 113 25 123/66 (85) 98 05/15/18 02:00 104 25 92/36 (54) 99 05/15/18 01:00 98 25 120/51 (74) 98 05/15/18 00:00 Nasal Cannula 2.0 05/15/18 00:00 99.8 107 26 104/53 (70) 98 05/14/18 23:34 103 05/14/18 23:00 107 26 97/56 (70) 97 05/14/18 22:00 112 25 102/50 (67) 98 05/14/18 21:00 101.9 112 24 97/50 (66) 97 05/14/18 20:00 102.6 106 31 110/53 (72) 97 05/14/18 20:00 Nasal Cannula 2.0 05/14/18 19:31 121 05/14/18 19:00 112 29 124/82 (96) 97 05/14/18 18:00 95 29 136/62 (86) 99 05/14/18 17:00 99 26 122/62 (82) 99 05/14/18 16:00 99.7 99 26 122/82 (95) 98 05/14/18 16:00 108 05/14/18 16:00 Nasal Cannula 2.0 05/14/18 15:00 104 26 121/59 (79) 100 Intake and Output 05/14/18 05/15/18 18:59 06:59 Intake Total 870.10 ml 1763.5 ml Output Total 300 ml 380 ml Balance 570.10 ml 1383.5 ml Intake Oral 440 ml IV Total 870.10 ml 1323.5 ml Output Urine Total 300 ml 380 ml # Voids 3 Laboratory Tests 05/15/18 06:30: White Blood Count 2.5#L, Red Blood Count 3.36L, Hemoglobin 8.9L, Hematocrit 27.1L, Mean Corpuscular Volume 81, Mean Corpuscular Hemoglobin 26.6L, Mean Corpuscular Hemoglobin Concent 33.0, Red Cell Distribution Width 14.6, Platelet Count 145L, Mean Platelet Volume 6.4L, Neutrophils (%) (Auto) , Lymphocytes (%) (Auto) , Monocytes (%) (Auto) , Eosinophils (%) (Auto) , Basophils (%) (Auto) , Differential Total Cells Counted 100, Neutrophils % (Manual) 45, Lymphocytes % ( Manual) 38, Monocytes % (Manual) 16H, Eosinophils % (Manual) 1, Basophils % ( Manual) 0, Band Neutrophils 0, Platelet Estimate DecreasedL, Platelet Morphology Normal, Hypochromasia 2+, Anisocytosis 1+, Microcytosis 1+ Height (Feet): 4 Height (Inches): 10.00 Weight (Pounds): 162 General Appearance: alert EENT: normal ENT inspection Neck: supple Cardiovascular: normal rate Respiratory/Chest: decreased breath sounds Abdomen: normal bowel sounds, non tender, soft Extremities: non-tender Neeraj Benito MD May 15, 2018 14:06
--- NOTE | 2018-05-15 14:15 | Pulmonolgy Critical Care Note ---
Critical Care - Asmt/Plan Assessment/Plan: Pulmonary Progress Note Assessment Impression Diabetic ketoacidosis Anemia Transaminitis of unclear etiology Severe protein calorie malnutrition Pancreatitis Acute renal failure Hyperglycemia Diabetes Hyponatremia Metabolic acidosis Hypercholesterolemia fever oral ulcers Plan Insulin SS O2 PRN Renal and GI evaluation ID evaluation Monitor liver enzymes and renal function; noted Hold home medications including diuretics Hold statin check cultures ICU care management and will transfer and disposition once patient improves Subjective Allergies: Coded Allergies: No Known Allergies (Unverified , 04/30/17) Subjective fevers overnight Objective Vital Signs Noted Laboratory Tests 05/13/18 14:46: Arterial Blood pH 7.428, Arterial Blood Partial Pressure CO2 29.4L, Arterial Blood Partial Pressure O2 78.2, Arterial Blood HCO3 19.0L, Arterial Blood Oxygen Saturation 95.5, Arterial Blood Base Excess -4.4L, Marlon Test Positive 05/13/18 19:20: White Blood Count 8.5#, Red Blood Count 4.31, Hemoglobin 11.3L, Hematocrit 34.7L , Mean Corpuscular Volume 81, Mean Corpuscular Hemoglobin 26.1L, Mean Corpuscular Hemoglobin Concent 32.4, Red Cell Distribution Width 13.5, Platelet Count 221, Mean Platelet Volume 6.5, Neutrophils (%) (Auto) 51.5, Lymphocytes (% ) (Auto) 28.5, Monocytes (%) (Auto) 16.5H, Eosinophils (%) (Auto) 2.9, Basophils (%) (Auto) 0.7, Sodium Level 139, Potassium Level 5.1, Chloride Level 107, Carbon Dioxide Level 14L, Anion Gap 18H, Blood Urea Nitrogen 24H, Creatinine 1.2, Estimat Glomerular Filtration Rate 44.4, Glucose Level 238H, Lactic Acid Level 2.50H, Calcium Level 8.1L, Total Bilirubin 1.2H, Direct Bilirubin 0.8H, Aspartate Amino Transf (AST/SGOT) 124H, Alanine Aminotransferase (ALT/SGPT) 389H, Alkaline Phosphatase 501H, Total Protein 6.2L , Albumin 2.8L, Globulin 3.4, Albumin/Globulin Ratio 0.8L 05/13/18 20:36: Lactic Acid Level [Pending] 05/13/18 22:40: Lactic Acid Level 3.00H 05/14/18 05:10: White Blood Count 5.1, Red Blood Count 4.00L, Hemoglobin 10.6L, Hematocrit 32.0L , Mean Corpuscular Volume 80, Mean Corpuscular Hemoglobin 26.4L, Mean Corpuscular Hemoglobin Concent 33.0, Red Cell Distribution Width 13.6, Platelet Count 194, Mean Platelet Volume 6.3L, Neutrophils (%) (Auto) 51.1, Lymphocytes ( %) (Auto) 25.3, Monocytes (%) (Auto) 19.8H, Eosinophils (%) (Auto) 2.7, Basophils (%) (Auto) 1.0, Sodium Level 143, Potassium Level 4.7, Chloride Level 111H, Carbon Dioxide Level 22, Anion Gap 10, Blood Urea Nitrogen 20H, Creatinine 1.2, Estimat Glomerular Filtration Rate 44.4, Glucose Level 123#H, Lactic Acid Level 2.20H, Calcium Level 7.5L, Total Bilirubin 0.8, Aspartate Amino Transf (AST/SGOT) 97H, Alanine Aminotransferase (ALT/SGPT) 322H, Alkaline Phosphatase 426H, Total Creatine Kinase 110, Total Protein 6.0L, Albumin 2.5L, Globulin 3.5, Albumin/Globulin Ratio 0.7L, Hepatitis A IgM Antibody [Pending], Hepatitis B Surface Antigen [Pending], Hepatitis B Core IgM Antibody [Pending], Hepatitis C Antibody [Pending] 05/14/18 08:36: Lactic Acid Level 1.60 Height (Feet): 4 Height (Inches): 10.00 Weight (Pounds): 157 Objective WDWN NAD clear breath sounds bilaterally without rhonchi or wheeze [id number] without MRG NABS nontender no HSM no CCE nonfocal oral ulcers with some drainage noted alert Critical Care - Objective Last 24 Hour Vital Signs Date Time Temp Pulse Resp B/P (MAP) Pulse Ox O2 Delivery O2 Flow Rate FiO2 05/15/18 13:00 98.0 110 23 130/66 (87) 100 05/15/18 12:00 114 27 153/82 (105) 100 05/15/18 12:00 114 05/15/18 12:00 Nasal Cannula 2.0 05/15/18 11:00 104 24 137/83 (101) 100 05/15/18 10:00 97 22 119/53 (75) 100 05/15/18 09:00 97.5 95 23 134/66 (88) 100 05/15/18 08:00 96 22 127/49 (75) 100 05/15/18 08:00 Nasal Cannula 2.0 05/15/18 08:00 93 05/15/18 07:00 93 26 112/54 (73) 100 05/15/18 06:00 99 26 122/55 (77) 100 05/15/18 05:00 100.5 108 27 105/56 (72) 100 05/15/18 04:50 100.5 05/15/18 04:00 Nasal Cannula 2.0 05/15/18 04:00 100.6 115 28 100/59 (73) 98 05/15/18 03:28 112 05/15/18 03:00 113 25 123/66 (85) 98 05/15/18 02:00 104 25 92/36 (54) 99 05/15/18 01:00 98 25 120/51 (74) 98 05/15/18 00:00 Nasal Cannula 2.0 05/15/18 00:00 99.8 107 26 104/53 (70) 98 05/14/18 23:34 103 05/14/18 23:00 107 26 97/56 (70) 97 05/14/18 22:00 112 25 102/50 (67) 98 05/14/18 21:00 101.9 112 24 97/50 (66) 97 05/14/18 20:00 102.6 106 31 110/53 (72) 97 05/14/18 20:00 Nasal Cannula 2.0 05/14/18 19:31 121 05/14/18 19:00 112 29 124/82 (96) 97 05/14/18 18:00 95 29 136/62 (86) 99 05/14/18 17:00 99 26 122/62 (82) 99 05/14/18 16:00 99.7 99 26 122/82 (95) 98 05/14/18 16:00 108 05/14/18 16:00 Nasal Cannula 2.0 05/14/18 15:00 104 26 121/59 (79) 100 Micro: Microbiology Date/Time Source Procedure Growth Status 05/13/18 19:20 Blood Blood Culture - Preliminary NO GROWTH AFTER 24 HOURS Resulted 05/13/18 19:20 Blood Blood Culture - Preliminary NO GROWTH AFTER 24 HOURS Resulted 05/13/18 05:40 Blood Blood Culture - Preliminary NO GROWTH AFTER 24 HOURS Resulted 05/13/18 05:35 Blood Blood Culture - Preliminary NO GROWTH AFTER 24 HOURS Resulted 05/13/18 19:20 Throat Throat Culture - Preliminary NO GROWTH Resulted 05/13/18 03:55 Nasal Nares MRSA Culture - Final NO METHICILLIN RESISTANT STAPH AUREUS... Complete 05/13/18 00:27 Nasal Nares Influenza Types A,B Antigen (TIAGO) - Final Complete 05/14/18 06:00 Urine,Clean Catch Urine Culture - Preliminary NO GROWTH Resulted 05/13/18 03:55 Rectum - Final NO CARBAPENEM-RESISTANT ENTEROBACTERI... Complete 05/13/18 03:55 Rectum VRE Culture - Final NO VANCOMYCIN RESISTANT ENTEROCOCCUS ... Complete Accucheck: 100 Critical Care - Subjective ROS Limited/Unobtainable: No Condition: improving EKG Rhythm: Sinus Rhythm FI02: 99 I&O: Intake and Output 05/14/18 05/15/18 18:59 06:59 Intake Total 870.10 ml 1763.5 ml Output Total 300 ml 380 ml Balance 570.10 ml 1383.5 ml Intake Oral 440 ml IV Total 870.10 ml 1323.5 ml Output Urine Total 300 ml 380 ml # Voids 3 Gulshan Landry MD May 15, 2018 14:15
--- NOTE | 2018-05-15 16:00 | NUR ---
NURSE NOTES: Family at bedside. updated family on condition.
[2018-05-15] MEDS ORDERED: NS 275ml ONE (17:12)
--- NOTE | 2018-05-15 17:42 | Cardiology Progress Note ---
Assessment/Plan Assessment/Plan The patient is seen and examined, full consult note will be dictated shortly. Objective Last 24 Hour Vital Signs Date Time Temp Pulse Resp B/P (MAP) Pulse Ox O2 Delivery O2 Flow Rate FiO2 05/15/18 15:28 100.0 05/15/18 15:00 113 27 140/58 (85) 98 05/15/18 14:00 110 29 142/84 (103) 99 05/15/18 13:00 98.0 110 23 130/66 (87) 100 05/15/18 12:00 114 27 153/82 (105) 100 05/15/18 12:00 114 05/15/18 12:00 Nasal Cannula 2.0 05/15/18 11:00 104 24 137/83 (101) 100 05/15/18 10:00 97 22 119/53 (75) 100 05/15/18 09:00 97.5 95 23 134/66 (88) 100 05/15/18 08:00 Nasal Cannula 2.0 28 05/15/18 08:00 97 Nasal Cannula 2.0 28 05/15/18 08:00 96 22 127/49 (75) 100 05/15/18 08:00 Nasal Cannula 2.0 05/15/18 08:00 93 05/15/18 07:00 93 26 112/54 (73) 100 05/15/18 06:00 99 26 122/55 (77) 100 05/15/18 05:00 100.5 108 27 105/56 (72) 100 05/15/18 04:00 Nasal Cannula 2.0 05/15/18 04:00 100.6 115 28 100/59 (73) 98 05/15/18 03:28 112 05/15/18 03:00 113 25 123/66 (85) 98 05/15/18 02:00 104 25 92/36 (54) 99 05/15/18 01:00 98 25 120/51 (74) 98 05/15/18 00:00 Nasal Cannula 2.0 05/15/18 00:00 99.8 107 26 104/53 (70) 98 05/14/18 23:34 103 05/14/18 23:00 107 26 97/56 (70) 97 05/14/18 22:00 112 25 102/50 (67) 98 05/14/18 21:00 101.9 112 24 97/50 (66) 97 05/14/18 20:00 102.6 106 31 110/53 (72) 97 05/14/18 20:00 Nasal Cannula 2.0 05/14/18 19:31 121 05/14/18 19:00 112 29 124/82 (96) 97 05/14/18 18:00 95 29 136/62 (86) 99 Intake and Output 05/14/18 05/15/18 19:00 07:00 Intake Total 868.08 ml 1791.0 ml Output Total 300 ml 380 ml Balance 568.08 ml 1411.0 ml Intake Oral 440 ml IV Total 868.08 ml 1351.0 ml Output Urine Total 300 ml 380 ml # Voids 3 Laboratory Tests Test 05/15/18 06:30 White Blood Count 2.5 K/UL (4.8-10.8) #L Red Blood Count 3.36 M/UL (4.20-5.40) L Hemoglobin 8.9 G/DL (12.0-16.0) L Hematocrit 27.1 % (37.0-47.0) L Mean Corpuscular Volume 81 FL (80-99) Mean Corpuscular Hemoglobin 26.6 PG (27.0-31.0) L Mean Corpuscular Hemoglobin Concent 33.0 G/DL (32.0-36.0) Red Cell Distribution Width 14.6 % (11.6-14.8) Platelet Count 145 K/UL (150-450) L Mean Platelet Volume 6.4 FL (6.5-10.1) L Neutrophils (%) (Auto) % (45.0-75.0) Lymphocytes (%) (Auto) % (20.0-45.0) Monocytes (%) (Auto) % (1.0-10.0) Eosinophils (%) (Auto) % (0.0-3.0) Basophils (%) (Auto) % (0.0-2.0) Differential Total Cells Counted 100 Neutrophils % (Manual) 45 % (45-75) Lymphocytes % (Manual) 38 % (20-45) Monocytes % (Manual) 16 % (1-10) H Eosinophils % (Manual) 1 % (0-3) Basophils % (Manual) 0 % (0-2) Band Neutrophils 0 % (0-8) Platelet Estimate Decreased L Platelet Morphology Normal Hypochromasia 2+ Anisocytosis 1+ Microcytosis 1+ Microbiology Date/Time Source Procedure Growth Status 05/13/18 19:20 Blood Blood Culture - Preliminary NO GROWTH AFTER 24 HOURS Resulted 05/13/18 19:20 Blood Blood Culture - Preliminary NO GROWTH AFTER 24 HOURS Resulted 05/13/18 05:40 Blood Blood Culture - Preliminary NO GROWTH AFTER 24 HOURS Resulted 05/13/18 05:35 Blood Blood Culture - Preliminary NO GROWTH AFTER 24 HOURS Resulted 05/13/18 19:20 Throat Throat Culture - Preliminary NO GROWTH Resulted 05/13/18 03:55 Nasal Nares MRSA Culture - Final NO METHICILLIN RESISTANT STAPH AUREUS... Complete 05/13/18 00:27 Nasal Nares Influenza Types A,B Antigen (TIAGO) - Final Complete 05/14/18 06:00 Urine,Clean Catch Urine Culture - Preliminary NO GROWTH Resulted 05/13/18 03:55 Rectum - Final NO CARBAPENEM-RESISTANT ENTEROBACTERI... Complete 05/13/18 03:55 Rectum VRE Culture - Final NO VANCOMYCIN RESISTANT ENTEROCOCCUS ... Complete Miller Mckeon MD May 15, 2018 17:42
[2018-05-15] MEDS ORDERED: Metoprolol 5mg/5ml Inj IVP SCH ×2 (17:45→19:15)
[2018-05-15] MEDS ORDERED: Metoprolol 25mg tab ORAL SCH (18:00)
[2018-05-15] MEDS ORDERED: Eliquis 2.5mg tablet ORAL SCH (18:00)
--- NOTE | 2018-05-15 19:11 | NUR ---
HAND-OFF: Report given to katarzyna Bender.
--- NOTE | 2018-05-15 19:15 | NUR ---
NURSE NOTES: Patient received from WAYNE Ivan. Patient on bed, noted redness all over her body. No complaints of itchiness at this time. Patient AOx4, cane at bedside. Inventory checked along with family member in the room. No signs of distress at this time. Oxygen therapy 2L via NC. Call light within reach. Bed brakes engaged.
[2018-05-15] MEDS: Metoprolol 25mg tab ORAL SCH (21:28)
--- NOTE | 2018-05-15 21:50 | NUR ---
NURSE NOTES: Noted both IV site leaking. D/C both sites and will attempt reinsertion. Patient made aware. Addendum: 05/15/18 at 2244 by KAIDEN SEBASTIAN RN NURSE NOTES: New IV site on Right FA 22G. Intact and patent.
[2018-05-16] VITALS: BP 98/56
[2018-05-16 04:00] VITALS: BP 128/87
[2018-05-16] MEDS: NovoLOG Insulin Flexpen SUBQ SCH ×4 (05:28→21:56)
[2018-05-16] MEDS: Piperacillin/Tazobactam 3.375 GM in D5W 110 ML IVPB SCH ×3 (05:28→23:43)
--- NOTE | 2018-05-16 07:25 | NUR ---
HAND-OFF: Report given to WAYNE Murillo. Endorsed plan of care.
--- NOTE | 2018-05-16 07:34 | NUR ---
NURSE NOTES: Pt received from WAYNE Schaffer alert and oriented x4 with no complaints or s/s of pain, SOB, or n/v. IV site asymptomatic and patent. Bed in lowest position, call light and belongings within reach.
--- NOTE | 2018-05-16 07:50 | General Progress Note ---
Assessment/Plan Assessment/Plan Assessment - DKA - Abnormal LFT - improving - Urolithiasis - Cholelithiasis - DM - CAD/CABG - Gout Recommendations - follow LFT - Check hepatitis serologies - Pending - Will consider MRCP (Once out of ICU) - Check CPK total - normal Subjective ROS Limited/Unobtainable: Yes Allergies: Coded Allergies: SHELLFISH DERIVED (Verified Allergy, Unknown, swelling and itchiness, 05/14) Objective Last 24 Hour Vital Signs Date Time Temp Pulse Resp B/P (MAP) Pulse Ox O2 Delivery O2 Flow Rate FiO2 05/16/18 06:00 Nasal Cannula 2.0 05/16/18 05:52 99.4 05/16/18 05:00 99.3 05/16/18 04:02 110 05/16/18 04:00 Nasal Cannula 2.0 05/16/18 04:00 101.1 105 18 128/87 (101) 99 05/16/18 00:00 99.8 85 18 98/56 (70) 100 05/16/18 00:00 Nasal Cannula 2.0 05/15/18 23:52 86 05/15/18 21:28 103 126/59 05/15/18 21:00 99.1 05/15/18 20:20 99 05/15/18 20:00 99.5 103 18 126/59 (81) 100 05/15/18 20:00 Nasal Cannula 2.0 05/15/18 19:00 110 27 122/80 (94) 98 05/15/18 18:00 112 27 120/89 (99) 98 05/15/18 18:00 112 120/89 05/15/18 17:00 99.2 108 27 126/57 (80) 25 05/15/18 16:00 Nasal Cannula 2.0 05/15/18 16:00 119 05/15/18 16:00 119 27 119/89 (99) 98 05/15/18 15:28 100.0 05/15/18 15:00 113 27 140/58 (85) 98 05/15/18 14:00 110 29 142/84 (103) 99 05/15/18 13:00 98.0 110 23 130/66 (87) 100 05/15/18 12:00 114 27 153/82 (105) 100 05/15/18 12:00 114 05/15/18 12:00 Nasal Cannula 2.0 05/15/18 11:00 104 24 137/83 (101) 100 05/15/18 10:00 97 22 119/53 (75) 100 05/15/18 09:00 97.5 95 23 134/66 (88) 100 05/15/18 08:00 Nasal Cannula 2.0 28 05/15/18 08:00 97 Nasal Cannula 2.0 28 05/15/18 08:00 96 22 127/49 (75) 100 05/15/18 08:00 Nasal Cannula 2.0 05/15/18 08:00 93 Intake and Output 05/15/18 05/16/18 19:00 07:00 Output Total 0 ml 200 ml Balance 0 ml -200 ml Output Urine Total 0 ml 200 ml # Voids 2 # Bowel Movements 3 Height (Feet): 4 Height (Inches): 10.00 Weight (Pounds): 182 General Appearance: no apparent distress EENT: normal ENT inspection Neck: supple Cardiovascular: normal rate Respiratory/Chest: decreased breath sounds Abdomen: normal bowel sounds, non tender, soft Extremities: non-tender Neeraj Benito MD May 16, 2018 07:50
[2018-05-16 08:00] VITALS: BP 122/67
[2018-05-16 08:09] LABS: HEMATOCRIT 24.6 % (37.0-47.0); HEMOGLOBIN 8.3 G/DL (12.0-16.0); MEAN CORPUSCULAR VOLUME 80 FL (80-99); PLATELET COUNT 133 K/UL (150-450); RED BLOOD COUNT 3.08 M/UL (4.20-5.40); RED CELL DISTRIBUTION WIDTH 14.7 % (11.6-14.8)
--- NOTE | 2018-05-16 08:15 | NUR ---
NURSE NOTES: Received phone call from [facility] from lab regarding pt's WBC level of 1.[address] Lew who ordered aeronautical products sales engineer consult with Dr. Bowen and neupogen 300 mg SQ x1. Will carry out orders and monitor pt.
[2018-05-16 08:18] LABS: WHITE BLOOD COUNT 1.7 K/UL (4.8-10.8)
[2018-05-16 08:33] LABS: ALANINE AMINOTRANSFERASE 171 U/L (12-78); ALBUMIN 1.9 G/DL (3.4-5.0); ALBUMIN/GLOBULIN RATIO 0.6 (1.0-2.7); ALKALINE PHOSPHATASE 384 U/L (46-116); ANION GAP 10 mmol/L (5-15); ASPARTATE AMINO TRANSFERASE 70 U/L (15-37); BILIRUBIN,TOTAL 1.5 MG/DL (0.2-1.0); BLOOD UREA NITROGEN 18 mg/dL (7-18); CALCIUM 7.3 MG/DL (8.5-10.1); CARBON DIOXIDE 18 MMOL/L (21-32); CHLORIDE 105 MMOL/L (98-107); CREATININE 1.4 MG/DL (0.55-1.30); SODIUM 133 MMOL/L (136-145)
[2018-05-16 08:47] LABS: BILIRUBIN,DIRECT 1.1 MG/DL (0.0-0.3)
[2018-05-16] MEDS: Metoprolol 25mg tab ORAL SCH ×2 (09:31→21:53)
[2018-05-16] MEDS: Eliquis 2.5mg tablet ORAL SCH ×2 (09:31→17:48)
[2018-05-16] MEDS: Pantoprazole Inj IVP SCH (09:32)
--- NOTE | 2018-05-16 10:29 | Infectious Diseases Prog Note ---
Assessment/Plan Assessment/Plan A 1. pancreatitis 2. herpes of lip improving 3. diabetic ketoacidosis 4. increased LFT improving 5. fever 6. hypertension 7. Pancytopenia P 1. continue Zosyn 2. will follow up cultures & CBC Subjective ROS Limited/Unobtainable: No Constitutional: Reports: fever HEENT: Reports: other - pain in lips Respiratory: Reports: no symptoms Gastrointestinal/Abdominal: Reports: no symptoms Genitourinary: Reports: no symptoms Allergies: Coded Allergies: SHELLFISH DERIVED (Verified Allergy, Unknown, swelling and itchiness, 05/14) Objective Vital Signs Last 24 Hour Vital Signs Date Time Temp Pulse Resp B/P (MAP) Pulse Ox O2 Delivery O2 Flow Rate FiO2 05/16/18 09:31 97 122/62 05/16/18 06:00 Nasal Cannula 2.0 05/16/18 05:52 99.4 05/16/18 05:00 99.3 05/16/18 04:02 110 05/16/18 04:00 Nasal Cannula 2.0 05/16/18 04:00 101.1 105 18 128/87 (101) 99 05/16/18 00:00 99.8 85 18 98/56 (70) 100 05/16/18 00:00 Nasal Cannula 2.0 05/15/18 23:52 86 05/15/18 21:28 103 126/59 05/15/18 21:00 99.1 05/15/18 20:20 99 05/15/18 20:00 99.5 103 18 126/59 (81) 100 05/15/18 20:00 Nasal Cannula 2.0 05/15/18 19:00 110 27 122/80 (94) 98 05/15/18 18:00 112 27 120/89 (99) 98 05/15/18 18:00 112 120/89 05/15/18 17:00 99.2 108 27 126/57 (80) 25 05/15/18 16:00 Nasal Cannula 2.0 05/15/18 16:00 119 05/15/18 16:00 119 27 119/89 (99) 98 05/15/18 15:28 100.0 05/15/18 15:00 113 27 140/58 (85) 98 05/15/18 14:00 110 29 142/84 (103) 99 05/15/18 13:00 98.0 110 23 130/66 (87) 100 05/15/18 12:00 114 27 153/82 (105) 100 05/15/18 12:00 114 05/15/18 12:00 Nasal Cannula 2.0 05/15/18 11:00 104 24 137/83 (101) 100 Height (Feet): 4 Height (Inches): 10.00 Weight (Pounds): 182 General Appearance: no acute distress HEENT: other - swelling , ulcers in lower lips Respiratory/Chest: lungs clear Cardiovascular: normal rate Abdomen: soft, non tender Extremities: other - edema of hands Neurologic/Psychiatric: alert, oriented x 3, responsive Microbiology Date/Time Source Procedure Growth Status 05/14/18 11:45 Blood Blood Culture - Preliminary NO GROWTH AFTER 24 HOURS Resulted 05/13/18 19:20 Blood Blood Culture - Preliminary NO GROWTH AFTER 48 HOURS Resulted 05/13/18 19:20 Blood Blood Culture - Preliminary NO GROWTH AFTER 48 HOURS Resulted 05/13/18 19:20 Throat Throat Culture - Final No Beta Hemolytic Strep Complete 05/14/18 06:00 Urine,Clean Catch Urine Culture - Preliminary Rianna Albicans Resulted Laboratory Tests Test 05/16/18 07:32 White Blood Count 1.7 K/UL (4.8-10.8) *L Red Blood Count 3.08 M/UL (4.20-5.40) L Hemoglobin 8.3 G/DL (12.0-16.0) L Hematocrit 24.6 % (37.0-47.0) L Mean Corpuscular Volume 80 FL (80-99) Mean Corpuscular Hemoglobin 26.9 PG (27.0-31.0) L Mean Corpuscular Hemoglobin Concent 33.6 G/DL (32.0-36.0) Red Cell Distribution Width 14.7 % (11.6-14.8) Platelet Count 133 K/UL (150-450) L Mean Platelet Volume 6.9 FL (6.5-10.1) Neutrophils (%) (Auto) % (45.0-75.0) Lymphocytes (%) (Auto) % (20.0-45.0) Monocytes (%) (Auto) % (1.0-10.0) Eosinophils (%) (Auto) % (0.0-3.0) Basophils (%) (Auto) % (0.0-2.0) Neutrophils % (Manual) Pending Lymphocytes % (Manual) Pending Platelet Estimate Pending Platelet Morphology Pending Sodium Level 133 MMOL/L (136-145) L Potassium Level 4.0 MMOL/L (3.5-5.1) Chloride Level 105 MMOL/L (98-107) Carbon Dioxide Level 18 MMOL/L (21-32) L Anion Gap 10 mmol/L (5-15) Blood Urea Nitrogen 18 mg/dL (7-18) Creatinine 1.4 MG/DL (0.55-1.30) H Estimat Glomerular Filtration Rate 37.2 mL/min (>60) Glucose Level 180 MG/DL (74-106) H Calcium Level 7.3 MG/DL (8.5-10.1) L Total Bilirubin 1.5 MG/DL (0.2-1.0) H Direct Bilirubin 1.1 MG/DL (0.0-0.3) H Aspartate Amino Transf (AST/SGOT) 70 U/L (15-37) H Alanine Aminotransferase (ALT/SGPT) 171 U/L (12-78) H Alkaline Phosphatase 384 U/L (46-116) H Total Protein 5.1 G/DL (6.4-8.2) L Albumin 1.9 G/DL (3.4-5.0) L Globulin 3.2 g/dL Albumin/Globulin Ratio 0.6 (1.0-2.7) L Current Medications Medications (Trade) Dose Ordered Sig/Ellen Route PRN Reason Start Time Stop Time Status Last Admin Dose Admin Acetaminophen (Tylenol) 650 mg Q4H PRN ORAL Mild Pain/Temp > 100.5 05/15/18 19:30 06/12/18 19:29 05/16/18 05:22 Acyclovir (Zovirax) 400 mg EVERY 8 HOURS ORAL 05/15/18 22:00 06/13/18 13:59 05/16/18 05:22 Al Hydroxide/Mg Hydroxide (Mylanta) 30 ml Q6H PRN ORAL Abdominal cramps 05/15/18 20:15 06/12/18 08:14 Apixaban (Eliquis) 5 mg BID ORAL 05/16/18 09:00 06/14/18 17:59 05/16/18 09:31 Barium Sulfate (Readi-Cat 2) 450 ml NOW PRN ORAL Radiology Procedure 05/16/18 11:15 05/17/18 23:59 Barium Sulfate (Readi-Cat 2) 450 ml NOW PRN ORAL Radiology Procedure 05/16/18 12:00 05/17/18 23:59 Dextrose (Dextrose 50%) 25 ml Q30M PRN IV Hypoglycemia 05/15/18 19:15 06/13/18 10:14 Dextrose (Dextrose 50%) 50 ml Q30M PRN IV Hypoglycemia 05/15/18 19:15 06/13/18 10:14 Insulin Aspart (NovoLOG) BEFORE MEALS AND HS SUBQ 05/15/18 21:00 06/13/18 11:29 05/16/18 05:28 Magnesium Hydroxide (Mom) 30 ml DAILYPRN PRN ORAL Constipation 05/15/18 19:00 06/14/18 18:59 Metoprolol Tartrate (Lopressor) 25 mg Q12HR ORAL 05/15/18 21:00 06/14/18 17:59 05/16/18 09:31 Pantoprazole (Protonix) 40 mg DAILY IVP 05/16/18 09:00 06/12/18 08:59 05/16/18 09:32 Piperacillin Sod/ Tazobactam Sod 3.375 gm/Dextrose 110 ml @ 27.5 mls/hr EVERY 8 HOURS IVPB 05/15/18 22:00 05/20/18 21:59 05/16/18 05:28 Sodium Chloride 1,000 ml @ 100 mls/hr Q10H IV 05/15/18 19:15 06/13/18 10:14 05/15/18 20:03 Tbo-Filgrastim (Granix) 300 mcg ONCE ONCE SQ 05/16/18 11:00 05/16/18 11:01 Mahesh Tejada MD May 16, 2018 10:29
--- NOTE | 2018-05-16 10:48 | Pulmonolgy Critical Care Note ---
Critical Care - Asmt/Plan Assessment/Plan: Pulmonary Progress Note Assessment Impression Diabetic ketoacidosis improved Anemia Transaminitis of unclear etiology Severe protein calorie malnutrition Pancreatitis Acute renal failure Hyperglycemia Diabetes Hyponatremia Metabolic acidosis Hypercholesterolemia fever oral ulcers Plan Insulin SS O2 PRN Renal and GI evaluation ID evaluation Monitor liver enzymes and renal function; noted Hold home medications including diuretics Hold statin check cultures ICU care management and will transfer and disposition once patient improves Subjective Allergies: Coded Allergies: No Known Allergies (Unverified , 04/30/17) Subjective fevers overnight Objective Vital Signs Noted Laboratory Tests 05/13/18 14:46: Arterial Blood pH 7.428, Arterial Blood Partial Pressure CO2 29.4L, Arterial Blood Partial Pressure O2 78.2, Arterial Blood HCO3 19.0L, Arterial Blood Oxygen Saturation 95.5, Arterial Blood Base Excess -4.4L, Marlon Test Positive 05/13/18 19:20: White Blood Count 8.5#, Red Blood Count 4.31, Hemoglobin 11.3L, Hematocrit 34.7L , Mean Corpuscular Volume 81, Mean Corpuscular Hemoglobin 26.1L, Mean Corpuscular Hemoglobin Concent 32.4, Red Cell Distribution Width 13.5, Platelet Count 221, Mean Platelet Volume 6.5, Neutrophils (%) (Auto) 51.5, Lymphocytes (% ) (Auto) 28.5, Monocytes (%) (Auto) 16.5H, Eosinophils (%) (Auto) 2.9, Basophils (%) (Auto) 0.7, Sodium Level 139, Potassium Level 5.1, Chloride Level 107, Carbon Dioxide Level 14L, Anion Gap 18H, Blood Urea Nitrogen 24H, Creatinine 1.2, Estimat Glomerular Filtration Rate 44.4, Glucose Level 238H, Lactic Acid Level 2.50H, Calcium Level 8.1L, Total Bilirubin 1.2H, Direct Bilirubin 0.8H, Aspartate Amino Transf (AST/SGOT) 124H, Alanine Aminotransferase (ALT/SGPT) 389H, Alkaline Phosphatase 501H, Total Protein 6.2L , Albumin 2.8L, Globulin 3.4, Albumin/Globulin Ratio 0.8L 05/13/18 20:36: Lactic Acid Level [Pending] 05/13/18 22:40: Lactic Acid Level 3.00H 05/14/18 05:10: White Blood Count 5.1, Red Blood Count 4.00L, Hemoglobin 10.6L, Hematocrit 32.0L , Mean Corpuscular Volume 80, Mean Corpuscular Hemoglobin 26.4L, Mean Corpuscular Hemoglobin Concent 33.0, Red Cell Distribution Width 13.6, Platelet Count 194, Mean Platelet Volume 6.3L, Neutrophils (%) (Auto) 51.1, Lymphocytes ( %) (Auto) 25.3, Monocytes (%) (Auto) 19.8H, Eosinophils (%) (Auto) 2.7, Basophils (%) (Auto) 1.0, Sodium Level 143, Potassium Level 4.7, Chloride Level 111H, Carbon Dioxide Level 22, Anion Gap 10, Blood Urea Nitrogen 20H, Creatinine 1.2, Estimat Glomerular Filtration Rate 44.4, Glucose Level 123#H, Lactic Acid Level 2.20H, Calcium Level 7.5L, Total Bilirubin 0.8, Aspartate Amino Transf (AST/SGOT) 97H, Alanine Aminotransferase (ALT/SGPT) 322H, Alkaline Phosphatase 426H, Total Creatine Kinase 110, Total Protein 6.0L, Albumin 2.5L, Globulin 3.5, Albumin/Globulin Ratio 0.7L, Hepatitis A IgM Antibody [Pending], Hepatitis B Surface Antigen [Pending], Hepatitis B Core IgM Antibody [Pending], Hepatitis C Antibody [Pending] 05/14/18 08:36: Lactic Acid Level 1.60 Height (Feet): 4 Height (Inches): 10.00 Weight (Pounds): 157 Objective WDWN NAD clear breath sounds bilaterally without rhonchi or wheeze [id number] without MRG NABS nontender no HSM no CCE nonfocal oral ulcers with some drainage noted alert Critical Care - Objective Last 24 Hour Vital Signs Date Time Temp Pulse Resp B/P (MAP) Pulse Ox O2 Delivery O2 Flow Rate FiO2 05/16/18 09:31 97 122/62 05/16/18 06:00 Nasal Cannula 2.0 05/16/18 05:52 99.4 05/16/18 05:00 99.3 05/16/18 04:02 110 05/16/18 04:00 Nasal Cannula 2.0 05/16/18 04:00 101.1 105 18 128/87 (101) 99 05/16/18 00:00 99.8 85 18 98/56 (70) 100 05/16/18 00:00 Nasal Cannula 2.0 05/15/18 23:52 86 05/15/18 21:28 103 126/59 05/15/18 21:00 99.1 05/15/18 20:20 99 05/15/18 20:00 99.5 103 18 126/59 (81) 100 05/15/18 20:00 Nasal Cannula 2.0 05/15/18 19:00 110 27 122/80 (94) 98 05/15/18 18:00 112 27 120/89 (99) 98 05/15/18 18:00 112 120/89 05/15/18 17:00 99.2 108 27 126/57 (80) 25 05/15/18 16:00 Nasal Cannula 2.0 05/15/18 16:00 119 05/15/18 16:00 119 27 119/89 (99) 98 05/15/18 15:28 100.0 05/15/18 15:00 113 27 140/58 (85) 98 05/15/18 14:00 110 29 142/84 (103) 99 05/15/18 13:00 98.0 110 23 130/66 (87) 100 05/15/18 12:00 114 27 153/82 (105) 100 05/15/18 12:00 114 05/15/18 12:00 Nasal Cannula 2.0 05/15/18 11:00 104 24 137/83 (101) 100 Micro: Microbiology Date/Time Source Procedure Growth Status 05/14/18 11:45 Blood Blood Culture - Preliminary NO GROWTH AFTER 24 HOURS Resulted 05/13/18 19:20 Blood Blood Culture - Preliminary NO GROWTH AFTER 48 HOURS Resulted 05/13/18 19:20 Blood Blood Culture - Preliminary NO GROWTH AFTER 48 HOURS Resulted 05/13/18 19:20 Throat Throat Culture - Final No Beta Hemolytic Strep Complete 05/14/18 06:00 Urine,Clean Catch Urine Culture - Preliminary Rianna Albicans Resulted Accucheck: 201 Critical Care - Subjective ROS Limited/Unobtainable: No Condition: stable FI02: 28 I&O: Intake and Output 05/15/18 05/16/18 19:00 07:00 Output Total 0 ml 200 ml Balance 0 ml -200 ml Output Urine Total 0 ml 200 ml # Voids 2 # Bowel Movements 3 Gulshan Landry MD May 16, 2018 10:48
[2018-05-16] MEDS ORDERED: TBO-Filgrastim 300 mcg/0.5ml SQ ONE (11:00)
--- NOTE | 2018-05-16 11:17 | Cardiology Report ---
APPROVED REPORT EKG Measurement Heart [id number] Atrial fibrillation T wave abnormality, consider inferolateral ischemia Abnormal ECG
--- NOTE | 2018-05-16 11:56 | Cardiology Report ---
APPROVED REPORT EXAM: Two-dimensional and M-mode echocardiogram with Doppler and color Doppler. INDICATION Shortness of breath M-Mode DIMENSIONS IVSd1.5 (0.7-1.1cm)Left Atrium (MM)4.0 (1.6-4.0cm) LVDd3.5 (3.5-5.6cm)Aortic Root3.0 (2.0-3.7cm) PWd1.4 (0.7-1.1cm)Aortic Cusp Exc.1.7 (1.5-2.0cm) LVDs2.1 (2.5-4.0cm) PWs1.7 cm Normal left ventricular chamber size, systolic function and wall motion. Left ventricular ejection fraction estimated to be 55 %. Mild left ventricular hypertrophy. No evidence of pericardial effusion. Left atrial size at upper limits of normal. Right cardiac chamber sizes are within normal limits. Mild focal aortic valve sclerosis with adequate cusp excursion. Mildly thickened mitral valve leaflets with normal excursion. Mild mitral annulus and aortic root calcification. Pulmonic valve not visualized. Normal tricuspid valve structure. IVC measures at 2.0 cm with physiological collapse, suggestive of increased RA pressure. A color flow and spectral Doppler study was performed and revealed: Mild to moderate aortic insufficiency. Sclerotic aortic valve. Moderate mitral regurgitation. Mitral inflow indicates increased left atrial pressure, suggestive restrictive pattern (Grade III). Moderate tricuspid regurgitation. Tricuspid systolic velocities suggests peak right ventricular systolic pressure of 67 mmHg, consistent with severe pulmonary hypertension.
[2018-05-16 12:00] VITALS: BP 121/40
[2018-05-16] MEDS ORDERED: Fluconazole 100mg tab ORAL SCH (12:00)
[2018-05-16] MEDS: Albuterol ud Inhalation HHN PRN ×2 (14:52→21:01)
[2018-05-16 16:00] VITALS: BP 109/45
--- NOTE | 2018-05-16 18:47 | Cardiology Progress Note ---
Assessment/Plan Assessment/Plan 1. Paroxysmal atrial fibrillation, due to CHADS-VASC score of 5, we require to keep anticoagulated, on metoprolol. 2. Hx of CAD, s/p CABG, ASA , atorvastatin and metoprolol. No wall motion abnormalities on Echo. LVEF ~55%. 3. Sinus tachycardia due to hypovolemia, resolved. 4. DKA, resolved. 5. DM, non-compliant with medications. 6. Hx of HTN, controlled with metoprolol. Subjective Subjective Sinus rhythm at rate of 93. Objective Last 24 Hour Vital Signs Date Time Temp Pulse Resp B/P (MAP) Pulse Ox O2 Delivery O2 Flow Rate FiO2 05/16/18 16:00 93 05/16/18 14:56 32 05/16/18 14:56 77 22 100 Nasal Cannula 2.0 21 05/16/18 14:56 Nasal Cannula 2.0 28 05/16/18 14:56 100 Nasal Cannula 2.0 28 05/16/18 13:27 99.0 05/16/18 12:45 99.0 05/16/18 12:00 101.8 97 18 121/40 (67) 100 05/16/18 12:00 105 05/16/18 09:31 97 122/62 05/16/18 08:00 Nasal Cannula 2.0 05/16/18 08:00 99.8 97 18 122/67 (85) 97 05/16/18 08:00 93 05/16/18 06:00 Nasal Cannula 2.0 05/16/18 05:00 99.3 05/16/18 04:02 110 05/16/18 04:00 Nasal Cannula 2.0 05/16/18 04:00 101.1 105 18 128/87 (101) 99 05/16/18 00:00 99.8 85 18 98/56 (70) 100 05/16/18 00:00 Nasal Cannula 2.0 05/15/18 23:52 86 05/15/18 21:28 103 126/59 05/15/18 21:00 99.1 05/15/18 20:20 99 05/15/18 20:00 99.5 103 18 126/59 (81) 100 05/15/18 20:00 Nasal Cannula 2.0 05/15/18 19:00 110 27 122/80 (94) 98 Intake and Output 05/15/18 05/16/18 18:59 06:59 Intake Total 127.5 ml Output Total 0 ml 200 ml Balance 127.5 ml -200 ml IV Total 127.5 ml Output Urine Total 0 ml 200 ml # Voids 2 # Bowel Movements 2 2D Echo: EF55%,Mild LVH,Mod MR,Mild AR,RVSP 67 mmHg (severe PHT),Restrictive LV phys Laboratory Tests Test 05/16/18 07:32 White Blood Count 1.7 K/UL (4.8-10.8) *L Red Blood Count 3.08 M/UL (4.20-5.40) L Hemoglobin 8.3 G/DL (12.0-16.0) L Hematocrit 24.6 % (37.0-47.0) L Mean Corpuscular Volume 80 FL (80-99) Mean Corpuscular Hemoglobin 26.9 PG (27.0-31.0) L Mean Corpuscular Hemoglobin Concent 33.6 G/DL (32.0-36.0) Red Cell Distribution Width 14.7 % (11.6-14.8) Platelet Count 133 K/UL (150-450) L Mean Platelet Volume 6.9 FL (6.5-10.1) Neutrophils (%) (Auto) % (45.0-75.0) Lymphocytes (%) (Auto) % (20.0-45.0) Monocytes (%) (Auto) % (1.0-10.0) Eosinophils (%) (Auto) % (0.0-3.0) Basophils (%) (Auto) % (0.0-2.0) Differential Total Cells Counted 100 Neutrophils % (Manual) 48 % (45-75) Lymphocytes % (Manual) 33 % (20-45) Monocytes % (Manual) 11 % (1-10) H Eosinophils % (Manual) 2 % (0-3) Basophils % (Manual) 0 % (0-2) Band Neutrophils 6 % (0-8) Platelet Estimate Decreased L Platelet Morphology Normal Hypochromasia 1+ Anisocytosis 1+ Microcytosis 2+ Sodium Level 133 MMOL/L (136-145) L Potassium Level 4.0 MMOL/L (3.5-5.1) Chloride Level 105 MMOL/L (98-107) Carbon Dioxide Level 18 MMOL/L (21-32) L Anion Gap 10 mmol/L (5-15) Blood Urea Nitrogen 18 mg/dL (7-18) Creatinine 1.4 MG/DL (0.55-1.30) H Estimat Glomerular Filtration Rate 37.2 mL/min (>60) Glucose Level 180 MG/DL (74-106) H Calcium Level 7.3 MG/DL (8.5-10.1) L Total Bilirubin 1.5 MG/DL (0.2-1.0) H Direct Bilirubin 1.1 MG/DL (0.0-0.3) H Aspartate Amino Transf (AST/SGOT) 70 U/L (15-37) H Alanine Aminotransferase (ALT/SGPT) 171 U/L (12-78) H Alkaline Phosphatase 384 U/L (46-116) H Total Protein 5.1 G/DL (6.4-8.2) L Albumin 1.9 G/DL (3.4-5.0) L Globulin 3.2 g/dL Albumin/Globulin Ratio 0.6 (1.0-2.7) L Microbiology Date/Time Source Procedure Growth Status 05/14/18 11:45 Blood Blood Culture - Preliminary NO GROWTH AFTER 24 HOURS Resulted 05/13/18 19:20 Blood Blood Culture - Preliminary NO GROWTH AFTER 48 HOURS Resulted 05/13/18 19:20 Blood Blood Culture - Preliminary NO GROWTH AFTER 48 HOURS Resulted 05/13/18 19:20 Throat Throat Culture - Final No Beta Hemolytic Strep Complete 05/14/18 06:00 Urine,Clean Catch Urine Culture - Preliminary Rianna Albicans Resulted Objective HEENT: Normocephalic, atraumatic, Pupils equally reactive to light and accommodation, EOMI. NECK: No JVD, no carotid bruit. CARDIOVASCULAR: Regular rate and rhythm. No murmurs, gallops or rubs. LUNGS: Clear to auscultation bilaterally. No crackles or Rhonchi. ABDOMEN: Soft and nontender. No organomegaly, + BS. EXTREMITIES: No cyanosis, clubbing or edema. Miller Mckeon MD May 16, 2018 18:47
--- NOTE | 2018-05-16 19:20 | NUR ---
HAND-OFF: Report given to Lizzie Pruitt RN.
--- NOTE | 2018-05-16 19:22 | NUR ---
NURSE NOTES: RECEIVED PATIENT RESTING IN BED, NO COMPLAINTS OF PAIN AT THIS TIME. FALL AND ASPIRATION PRECAUTIONS IN PLACE: CALL LIGHT AND BEDSIDE TABLE WITHIN REACH, BED IN LOW POSITION AND BED ALARM ON. PLAN OF CARE REVIEWED.
[2018-05-16 20:00] VITALS: BP 159/79
--- NOTE | 2018-05-16 22:55 | NUR ---
NURSE NOTES: PATIENT C/O SOB. BREATHING TREATMENT ADMINISTERED BY RT, NOTED RR-38, POX 100% ON 2L NASAL CANNULA, TEMP 102.2 CALLED AND LEFT MESSAGE FOR DR. HATFIELD.
[2018-05-17] VITALS: BP 108/42
--- NOTE | 2018-05-17 | NUR ---
NURSE NOTES: RECHECKED TEMP -100. RR-24. PATIENT RESTING COMFORTABLY.
[2018-05-17] MEDS: Albuterol ud Inhalation HHN PRN ×2 (00:54→17:28)
--- NOTE | 2018-05-17 02:30 | Consultation ---
DATE OF CONSULTATION: 05/15/2018 CARDIOLOGY CONSULTATION CONSULTING PHYSICIAN: Miller Mckeon M.D. REFERRING PHYSICIAN: Jesus Lew M.D. REASON FOR CONSULTATION: Management of tachycardia. HISTORY OF PRESENT ILLNESS: The patient is a very unfortunate 72-year-old female who presents to the hospital with complaints of sore throat, chills, and dehydration, just returned from a cruise to . She also states that she had trouble with her diabetes and the fact that she had not been using her insulin pen at the cruise. At the time of arrival to the hospital, she denied any chest pain or shortness of breath. Blood pressure was 143/63 mmHg and heart rate was 96. A 12-lead electrocardiogram in the emergency department shows atrial fibrillation with controlled ventricular response at a rate of 88 and T-wave abnormality, consider inferolateral ischemia. The patient had initial laboratory done in the emergency department, which revealed blood sugar of 568, sodium of 127, and potassium of 5.5. BUN and creatinine of 39 and 1.8 respectively. In the emergency department, she was started on a insulin drip. Her bicarbonate level was 19 and she had 14 mmol/L of anion gap. She was admitted to intensive care unit for management of possible DKA. Cardiology consultation was made at request of Dr. Lew for addressing and managing of atrial fibrillation, tachycardia, and hemodynamic instability. PAST MEDICAL HISTORY: 1. History of respiratory failure in the past. 2. History of renal failure. 3. History of elevated troponin I level attributed to renal failure. 4. History of hypertension. 5. History of diabetes mellitus with noncompliance. 6. History of hyperlipidemia. 7. History of congestive heart failure. 8. History of pneumonia. 9. History of sepsis. 10. History of coronary artery disease. ALLERGIES: No known drug allergies. PAST SURGICAL HISTORY: History of coronary artery bypass graft surgery. SOCIAL HISTORY: Denies any tobacco, alcohol, or illicit drug use. FAMILY HISTORY: No premature coronary artery disease or arrhythmogenic in the first-degree relatives. REVIEW OF SYSTEMS: A 12-system review done essentially negative except what mentioned in the history of present illness. MEDICATIONS: List of medications at home include: 1. Aspirin 81 mg p.o. daily. 2. Atorvastatin 80 mg p.o. nightly. 3. Carvedilol 6.25 mg q.12 h. 4. Lasix 20 mg p.o. daily. 5. Lantus insulin 20 units subcutaneously at bedtime. 6. Jentadueto 2.5 and 1000 combination pill one tablet p.o. twice daily. 7. Lisinopril 20 mg p.o. daily. 8. Multivitamin one tablet p.o. daily. PHYSICAL EXAMINATION: VITAL SIGNS: Blood pressure at the time of arrival to the hospital was 143/63, respirations of 18, pulse of 96, temperature 98.2 degrees Fahrenheit, and O2 saturation 98% on room air. GENERAL: The patient is a very pleasant 72-year-old lady, who was seen in Cardiology consultation, ill appearing, diaphoretic, in no apparent respiratory distress. HEENT: Atraumatic and normocephalic. Anicteric. Pupils are equal, round, and reactive to light and accommodation. Extraocular muscles intact. NECK: JVP is less than 5 cm. No carotid bruits. Carotid upstroke is 2+ bilaterally. CARDIOVASCULAR: Normal S1 and S2. Regular rate and rhythm. No murmurs, gallops, or rubs. Tachycardic. LUNGS: Clear to auscultation bilaterally. ABDOMEN: Soft, nontender, and nondistended. Positive bowel sounds. No hepatosplenomegaly. EXTREMITIES: No evidence of edema, clubbing, or cyanosis. LABORATORY AND DIAGNOSTIC DATA: Laboratory findings, WBC 5.3, hemoglobin 9.7, hematocrit 29.1, and platelet count 179,000. Sodium 127, potassium 5.5, chloride 94, bicarbonate 19, BUN 39, creatinine 1.8, glucose is 568, calcium is 8.3, and magnesium is 2.1. Uric acid 7.3. Troponin-I was 0.022. ProBNP was 2846. Lipase was over 2000. INR was 1.0. Chest x-ray at the time of arrival to the hospital showed mild cardiomegaly and mild bilateral interstitial and airspace congestion. A 2D echocardiography on 05/15/2018 showed normal LV systolic function with LVEF of 55%, mild LVH, and mild aortic regurgitation with associated sclerotic aortic valve and restrictive LV physiology consistent with markedly elevated left atrial pressure. There was also severe pulmonary hypertension with right ventricular systolic pressure measured at 67 mmHg by 2D echocardiography. ASSESSMENT AND PLAN: The patient is a very unfortunate 72-year-old female who was seen in Cardiology consultation. 1. Atrial fibrillation with controlled ventricular response, which was very transient the patient spontaneously to sinus rhythm. Given the high CHADS score, the patient requires to be on apixaban 5 mg p.o. twice daily as well as control of heart rate with metoprolol 25 mg twice daily. Of note, the patient was on carvedilol in the outpatient setting. 2. Tachycardia due to severe hypovolemia due to diabetic ketoacidosis. At this time, intravascular volume expansion has been provided by IV hydration as the patient's prerenal azotemia has been corrected. 3. Diabetic ketoacidosis. Control with insulin drip and hydration. 4. History of hypertension. We will continue with metoprolol for now and we will add other agents accordingly based on the patient's blood pressure throughout her stay in the hospital. 5. History of coronary artery disease, status post coronary artery bypass graft surgery. A 12-lead electrocardiogram had some nonspecific changes, which was suspicious for lateral wall ischemia. A 2D echocardiography done in this hospitalization did not reveal any wall motion abnormalities with LVEF of approximately 55%. 6. Acute diastolic congestive heart failure. This is also confirmed by the severely elevated beta-natriuretic peptide. At this time, I would withhold the diuretic until the patient's DKA is resolved. 7. Severe pulmonary hypertension, most likely due to diastolic heart failure. Total amount of time evaluating this patient in the intensive care unit of [facility] discussing the plan of care with the nursing staff and the attending physician was over 50 minutes. I would like to thank, Dr. Lew, for the courtesy of this consultation. Miller Mckeon M.D. DR: MARIAJOSE JOB#: [id number] CC:
[2018-05-17 04:00] VITALS: BP 105/56
[2018-05-17] MEDS: Piperacillin/Tazobactam 3.375 GM in D5W 110 ML IVPB SCH (05:48)
[2018-05-17] MEDS: NovoLOG Insulin Flexpen SUBQ SCH ×4 (06:20→23:04)
--- NOTE | 2018-05-17 07:33 | NUR ---
HAND-OFF: Report given to WAYNE GARRISON. PATIENT ASLEEP, NO SIGNS OF DISTRESS NOTED.
--- NOTE | 2018-05-17 07:45 | NUR ---
NURSE NOTES: Pt received from Lizzie Pruitt RN currently resting in bed with no s/s of distress, SOB, n/v, or pain. IV site asymptomatic and patent. Bed in lowest position, call light and belongings within reach.
--- NOTE | 2018-05-17 07:56 | General Progress Note ---
Assessment/Plan Assessment/Plan Impression Diabetic ketoacidosis Anemia Transaminitis of unclear etiology Severe protein calorie malnutrition Evidence of pancreatitis, better Acute renal failure, improved Hyperglycemia Diabetes Hyponatremia Metabolic acidosis Hypercholesterolemia fever oral ulcers afib with RVR monitor sugars cards noted Renal and GI evaluation ID evaluation Monitor liver enzymes and renal function; noted off statin check cultures and await ID clearance impression, plan, and exam edited and reviewed in detail care discussed with RN Subjective Allergies: Coded Allergies: SHELLFISH DERIVED (Verified Allergy, Unknown, swelling and itchiness, 05/14) Subjective tele afib leukopenia Objective Last 24 Hour Vital Signs Date Time Temp Pulse Resp B/P (MAP) Pulse Ox O2 Delivery O2 Flow Rate FiO2 05/17/18 04:00 98.8 83 24 105/56 (72) 100 05/17/18 04:00 83 05/17/18 01:02 89 20 99 Nasal Cannula 2.0 28 05/17/18 00:54 84 20 99 Nasal Cannula 2.0 28 05/17/18 00:54 28 05/17/18 00:00 95 05/17/18 00:00 100.0 90 22 108/42 (64) 100 05/16/18 23:36 100.0 05/16/18 22:45 102.2 05/16/18 21:53 74 159/79 05/16/18 21:09 74 22 99 Nasal Cannula 2.0 28 05/16/18 21:01 94 25 98 Nasal Cannula 2.0 21 05/16/18 21:01 98 Nasal Cannula 2.0 28 05/16/18 21:01 Nasal Cannula 2.0 28 05/16/18 21:01 28 05/16/18 21:01 94 25 Nasal Cannula 28 05/16/18 21:00 Nasal Cannula 2.0 05/16/18 20:00 97.9 112 19 159/79 (105) 99 05/16/18 20:00 98 05/16/18 16:00 99.7 94 15 109/45 (66) 100 05/16/18 16:00 93 05/16/18 14:56 32 05/16/18 14:56 77 22 100 Nasal Cannula 2.0 21 05/16/18 14:56 Nasal Cannula 2.0 28 05/16/18 14:56 100 Nasal Cannula 2.0 28 05/16/18 12:45 99.0 05/16/18 12:00 101.8 97 18 121/40 (67) 100 05/16/18 12:00 105 05/16/18 09:31 97 122/62 05/16/18 08:00 Nasal Cannula 2.0 05/16/18 08:00 99.8 97 18 122/67 (85) 97 05/16/18 08:00 93 Intake and Output 05/16/18 05/17/18 19:00 07:00 Intake Total 100 ml 677.5 ml Output Total 250 ml Balance 100 ml 427.5 ml Intake Oral 240 ml IV Total 100 ml 437.5 ml Output Urine Total 250 ml # Bowel Movements 1 Labs Test 05/14/18 08:36 05/15/18 06:30 05/16/18 07:32 Sodium Level 141 MMOL/L (136-145) 133 MMOL/L (136-145) Potassium Level 3.8 MMOL/L (3.5-5.1) 4.0 MMOL/L (3.5-5.1) Chloride Level 111 MMOL/L (98-107) 105 MMOL/L (98-107) Carbon Dioxide Level 20 MMOL/L (21-32) 18 MMOL/L (21-32) Anion Gap 10 mmol/L (5-15) 10 mmol/L (5-15) Blood Urea Nitrogen 18 mg/dL (7-18) 18 mg/dL (7-18) Creatinine 1.0 MG/DL (0.55-1.30) 1.4 MG/DL (0.55-1.30) Estimat Glomerular Filtration Rate 54.8 mL/min (>60) 37.2 mL/min (>60) Glucose Level 136 MG/DL (74-106) 180 MG/DL (74-106) Lactic Acid Level 1.60 mmol/L (0.66-2.22) Calcium Level 7.6 MG/DL (8.5-10.1) 7.3 MG/DL (8.5-10.1) Total Bilirubin 0.9 MG/DL (0.2-1.0) 1.5 MG/DL (0.2-1.0) Aspartate Amino Transf (AST/SGOT) 89 U/L (15-37) 70 U/L (15-37) Alanine Aminotransferase (ALT/SGPT) 292 U/L (12-78) 171 U/L (12-78) Alkaline Phosphatase 387 U/L (46-116) 384 U/L (46-116) Total Protein 5.5 G/DL (6.4-8.2) 5.1 G/DL (6.4-8.2) Albumin 2.3 G/DL (3.4-5.0) 1.9 G/DL (3.4-5.0) Globulin 3.2 g/dL 3.2 g/dL Albumin/Globulin Ratio 0.7 (1.0-2.7) 0.6 (1.0-2.7) White Blood Count 2.5 K/UL (4.8-10.8) 1.7 K/UL (4.8-10.8) Red Blood Count 3.36 M/UL (4.20-5.40) 3.08 M/UL (4.20-5.40) Hemoglobin 8.9 G/DL (12.0-16.0) 8.3 G/DL (12.0-16.0) Hematocrit 27.1 % (37.0-47.0) 24.6 % (37.0-47.0) Mean Corpuscular Volume 81 FL (80-99) 80 FL (80-99) Mean Corpuscular Hemoglobin 26.6 PG (27.0-31.0) 26.9 PG (27.0-31.0) Mean Corpuscular Hemoglobin Concent 33.0 G/DL (32.0-36.0) 33.6 G/DL (32.0-36.0) Red Cell Distribution Width 14.6 % (11.6-14.8) 14.7 % (11.6-14.8) Platelet Count 145 K/UL (150-450) 133 K/UL (150-450) Mean Platelet Volume 6.4 FL (6.5-10.1) 6.9 FL (6.5-10.1) Neutrophils (%) (Auto) % (45.0-75.0) % (45.0-75.0) Lymphocytes (%) (Auto) % (20.0-45.0) % (20.0-45.0) Monocytes (%) (Auto) % (1.0-10.0) % (1.0-10.0) Eosinophils (%) (Auto) % (0.0-3.0) % (0.0-3.0) Basophils (%) (Auto) % (0.0-2.0) % (0.0-2.0) Differential Total Cells Counted 100 100 Neutrophils % (Manual) 45 % (45-75) 48 % (45-75) Lymphocytes % (Manual) 38 % (20-45) 33 % (20-45) Monocytes % (Manual) 16 % (1-10) 11 % (1-10) Eosinophils % (Manual) 1 % (0-3) 2 % (0-3) Basophils % (Manual) 0 % (0-2) 0 % (0-2) Band Neutrophils 0 % (0-8) 6 % (0-8) Platelet Estimate Decreased Decreased Platelet Morphology Normal Normal Hypochromasia 2+ 1+ Anisocytosis 1+ 1+ Microcytosis 1+ 2+ Direct Bilirubin 1.1 MG/DL (0.0-0.3) Height (Feet): 4 Height (Inches): 10.00 Weight (Pounds): 184 Objective WDWN NAD clear breath sounds bilaterally without rhonchi or wheeze S1S2 iRRR without MRG NABS nontender no HSM no CCE nonfocal oral ulcers better alert Jesus Lew MD May 17, 2018 07:55
[2018-05-17 08:00] VITALS: BP 134/77
[2018-05-17 08:31] LABS: BASOPHILS % (AUTO) 0.6 % (0.0-2.0); EOSINOPHILS % (AUTO) 1.5 % (0.0-3.0); HEMATOCRIT 29.2 % (37.0-47.0); HEMOGLOBIN 9.2 G/DL (12.0-16.0); LYMPHOCYTES % (AUTO) 17.7 % (20.0-45.0); MEAN CORPUSCULAR VOLUME 82 FL (80-99); MONOCYTES % (AUTO) 11.9 % (1.0-10.0); NEUTROPHILS % (AUTO) 68.4 % (45.0-75.0); PLATELET COUNT 151 K/UL (150-450); RED BLOOD COUNT 3.56 M/UL (4.20-5.40); RED CELL DISTRIBUTION WIDTH 15.1 % (11.6-14.8); WHITE BLOOD COUNT 4.3 K/UL (4.8-10.8)
--- NOTE | 2018-05-17 08:39 | NUR ---
NURSE NOTES: Patient has a temperature of 102.1F, Dr. Lew is made aware and received order to continue Tylenol. Addendum: 05/18/18 at 0003 by ROSA LU RN incorrect time.
[2018-05-17] MEDS: Pantoprazole Inj IVP SCH (09:05)
[2018-05-17] MEDS: Metoprolol 25mg tab ORAL SCH ×2 (09:05→23:03)
[2018-05-17] MEDS: Eliquis 2.5mg tablet ORAL SCH ×2 (09:06→18:17)
[2018-05-17 09:13] LABS: ALANINE AMINOTRANSFERASE 185 U/L (12-78); ALBUMIN 2.1 G/DL (3.4-5.0); ALBUMIN/GLOBULIN RATIO 0.6 (1.0-2.7); ALKALINE PHOSPHATASE 459 U/L (46-116); ANION GAP 14 mmol/L (5-15); ASPARTATE AMINO TRANSFERASE 114 U/L (15-37); BILIRUBIN,TOTAL 1.6 MG/DL (0.2-1.0); BLOOD UREA NITROGEN 24 mg/dL (7-18); CALCIUM 7.7 MG/DL (8.5-10.1); CARBON DIOXIDE 15 MMOL/L (21-32); CHLORIDE 101 MMOL/L (98-107); CREATININE 1.7 MG/DL (0.55-1.30); POTASSIUM 4.6 MMOL/L (3.5-5.1); SODIUM 130 MMOL/L (136-145)
[2018-05-17 09:14] LABS: BILIRUBIN,DIRECT 1.2 MG/DL (0.0-0.3)
--- NOTE | 2018-05-17 09:15 | NUR ---
NURSE NOTES: Pt's temp at 101.7, given Tylenol and provided cooling measures. Reassessed temp - 98.1. Endorsed to Dr. Melendez. Per Dr. Melendez, she will adjust abx meds.
--- NOTE | 2018-05-17 10:39 | Infectious Diseases Prog Note ---
Assessment/Plan Assessment/Plan antibiotics : zosyn, fluconazole, acyclovir A 1. pancreatitis 2. herpes of lip 3. diabetic ketoacidosis 4. increased LFT 5. fever 6. hypertension 7. fungal UTI 8. ? drug reaction P 1. continue acyclovir 2. d/c zosyn, fluconazole 3. start levoquin, micafungin 4. HIDA scan 5. will follow up cultures Subjective Constitutional: Denies: fever, chills Respiratory: Denies: shortness of breath, dry cough Gastrointestinal/Abdominal: Denies: nausea, vomiting, diarrhea Musculoskeletal: Reports: pain Allergies: Coded Allergies: SHELLFISH DERIVED (Verified Allergy, Unknown, swelling and itchiness, 05/14) Objective Vital Signs Last 24 Hour Vital Signs Date Time Temp Pulse Resp B/P (MAP) Pulse Ox O2 Delivery O2 Flow Rate FiO2 05/17/18 09:05 102 132/77 05/17/18 08:20 99 24 Nasal Cannula 2.0 28 05/17/18 08:20 Nasal Cannula 2.0 28 05/17/18 08:20 97 Nasal Cannula 2.0 28 05/17/18 04:00 98.8 83 24 105/56 (72) 100 05/17/18 04:00 83 05/17/18 01:02 89 20 99 Nasal Cannula 2.0 28 05/17/18 00:54 84 20 99 Nasal Cannula 2.0 28 05/17/18 00:54 28 05/17/18 00:00 95 05/17/18 00:00 100.0 90 22 108/42 (64) 100 05/16/18 23:36 100.0 05/16/18 22:45 102.2 05/16/18 21:53 74 159/79 05/16/18 21:09 74 22 99 Nasal Cannula 2.0 28 05/16/18 21:01 94 25 98 Nasal Cannula 2.0 21 05/16/18 21:01 98 Nasal Cannula 2.0 28 05/16/18 21:01 Nasal Cannula 2.0 28 05/16/18 21:01 28 05/16/18 21:01 94 25 Nasal Cannula 28 05/16/18 21:00 Nasal Cannula 2.0 05/16/18 20:00 97.9 112 19 159/79 (105) 99 05/16/18 20:00 98 05/16/18 16:00 99.7 94 15 109/45 (66) 100 05/16/18 16:00 93 05/16/18 14:56 32 05/16/18 14:56 77 22 100 Nasal Cannula 2.0 21 05/16/18 14:56 Nasal Cannula 2.0 28 05/16/18 14:56 100 Nasal Cannula 2.0 28 05/16/18 12:45 99.0 05/16/18 12:00 101.8 97 18 121/40 (67) 100 05/16/18 12:00 105 Height (Feet): 4 Height (Inches): 10.00 Weight (Pounds): 184 HEENT: other - lip lesions hyperpigmented Respiratory/Chest: lungs clear Cardiovascular: normal rate, regular rhythm, no gallop/murmur Abdomen: soft, non tender Extremities: other - + edema Skin: rash - erythematous Microbiology Date/Time Source Procedure Growth Status 05/14/18 11:45 Blood Blood Culture - Preliminary NO GROWTH AFTER 48 HOURS Resulted Laboratory Tests Test 05/17/18 08:20 White Blood Count 4.3 K/UL (4.8-10.8) #L Red Blood Count 3.56 M/UL (4.20-5.40) L Hemoglobin 9.2 G/DL (12.0-16.0) L Hematocrit 29.2 % (37.0-47.0) L Mean Corpuscular Volume 82 FL (80-99) Mean Corpuscular Hemoglobin 25.9 PG (27.0-31.0) L Mean Corpuscular Hemoglobin Concent 31.6 G/DL (32.0-36.0) L Red Cell Distribution Width 15.1 % (11.6-14.8) H Platelet Count 151 K/UL (150-450) Mean Platelet Volume 7.2 FL (6.5-10.1) Neutrophils (%) (Auto) 68.4 % (45.0-75.0) Lymphocytes (%) (Auto) 17.7 % (20.0-45.0) L Monocytes (%) (Auto) 11.9 % (1.0-10.0) H Eosinophils (%) (Auto) 1.5 % (0.0-3.0) Basophils (%) (Auto) 0.6 % (0.0-2.0) Sodium Level 130 MMOL/L (136-145) L Potassium Level 4.6 MMOL/L (3.5-5.1) Chloride Level 101 MMOL/L (98-107) Carbon Dioxide Level 15 MMOL/L (21-32) L Anion Gap 14 mmol/L (5-15) Blood Urea Nitrogen 24 mg/dL (7-18) H Creatinine 1.7 MG/DL (0.55-1.30) H Estimat Glomerular Filtration Rate 29.7 mL/min (>60) Glucose Level 227 MG/DL (74-106) H Calcium Level 7.7 MG/DL (8.5-10.1) L Total Bilirubin 1.6 MG/DL (0.2-1.0) H Direct Bilirubin 1.2 MG/DL (0.0-0.3) H Aspartate Amino Transf (AST/SGOT) 114 U/L (15-37) H Alanine Aminotransferase (ALT/SGPT) 185 U/L (12-78) H Alkaline Phosphatase 459 U/L (46-116) H Total Protein 5.6 G/DL (6.4-8.2) L Albumin 2.1 G/DL (3.4-5.0) L Globulin 3.5 g/dL Albumin/Globulin Ratio 0.6 (1.0-2.7) L Current Medications Medications (Trade) Dose Ordered Sig/Ellen Route PRN Reason Start Time Stop Time Status Last Admin Dose Admin Acetaminophen (Tylenol) 650 mg Q4H PRN ORAL Mild Pain/Temp > 100.5 05/15/18 19:30 06/12/18 19:29 05/17/18 09:06 Acyclovir (Zovirax) 400 mg EVERY 8 HOURS ORAL 05/15/18 22:00 06/13/18 13:59 05/17/18 05:38 Al Hydroxide/Mg Hydroxide (Mylanta) 30 ml Q6H PRN ORAL Abdominal cramps 05/15/18 20:15 06/12/18 08:14 Albuterol Sulfate (Proventil) 2.5 mg Q4H PRN HHN Shortness of Breath 05/16/18 14:15 05/21/18 14:14 05/17/18 00:54 Apixaban (Eliquis) 5 mg BID ORAL 05/16/18 09:00 06/14/18 17:59 05/17/18 09:06 Barium Sulfate (Readi-Cat 2) 450 ml NOW PRN ORAL Radiology Procedure 05/16/18 11:15 05/17/18 23:59 Barium Sulfate (Readi-Cat 2) 450 ml NOW PRN ORAL Radiology Procedure 05/16/18 12:00 05/17/18 23:59 Dextrose (Dextrose 50%) 25 ml Q30M PRN IV Hypoglycemia 05/15/18 19:15 06/13/18 10:14 Dextrose (Dextrose 50%) 50 ml Q30M PRN IV Hypoglycemia 05/15/18 19:15 06/13/18 10:14 Fluconazole (Diflucan) 200 mg Q24H ORAL 05/16/18 12:00 05/23/18 11:59 05/16/18 12:23 Insulin Aspart (NovoLOG) BEFORE MEALS AND HS SUBQ 05/15/18 21:00 06/13/18 11:29 05/17/18 06:20 Magnesium Hydroxide (Mom) 30 ml DAILYPRN PRN ORAL Constipation 05/15/18 19:00 06/14/18 18:59 Metoprolol Tartrate (Lopressor) 25 mg Q12HR ORAL 05/15/18 21:00 06/14/18 17:59 05/17/18 09:05 Pantoprazole (Protonix) 40 mg DAILY IVP 05/16/18 09:00 06/12/18 08:59 05/17/18 09:05 Piperacillin Sod/ Tazobactam Sod 3.375 gm/Dextrose 110 ml @ 27.5 mls/hr EVERY 8 HOURS IVPB 05/15/18 22:00 05/20/18 21:59 05/17/18 05:48 Sodium Chloride 1,000 ml @ 100 mls/hr Q10H IV 05/15/18 19:15 06/13/18 10:14 05/16/18 15:24 Khadra Melendez MD May 17, 2018 10:39
[2018-05-17] MEDS ORDERED: Levofloxacin 500mg tab ORAL SCH (10:52)
[2018-05-17] MEDS ORDERED: Morphine Sulfate 4mg/ml Inj (IV USE ONLY) IVP SCH ×2 (11:49→13:30)
[2018-05-17 12:00] VITALS: BP 164/72
[2018-05-17] MEDS: Micafungin 100 MG in NS 110 ML IVPB SCH (12:24)
--- NOTE | 2018-05-17 14:14 | Diagnostic Imaging Report ---
APPROVED REPORT CPT Code: 13688 Present Symptoms Comments: PAIN BILATERAL: Imaging reveals a patent deep venous system bilaterally. There is no evidence of thrombus within the femoral, popliteal or tibial segments. The greater saphenous veins are also within normal limits. Doppler indicates normal spontaneous flow within these segments.
--- NOTE | 2018-05-17 15:30 | NUR ---
RD ASSESSMENT & RECOMMENDATIONS SEE CARE ACTIVITY FOR COMPLETE ASSESSMENT DAILY ESTIMATED NEEDS: Needs based on DM, cardiac, obese/ 54kg abw 25-30 kcals/kg 8565-2311 total kcals 1-1.5 g protein/kg 54-81 g total protein 25-30 mL/kg 9334-2305 total fluid mLs NUTRITION DIAGNOSIS: 1) Altered nutrition related lab values R/T diabetes, clinical condition as evidenced by A1C 11.4, increased from 8.1 in August 2017, DKA w/ adm TV=236, elev BNP (2846), elev creat (1.7) trend up, elev LFTs, trend up, elev lipase (>2000), not updated. CURRENT DIET:CCHO MED, PUREED MOIST/ no fresh fruit/vegetables PO DIET RECOMMENDATIONS: CCHO LOW, LOW NA, LOW FAT/ texture as tolerated ADDITIONAL RECOMMENDATIONS: 1) Standing wt as able for accurate CBW 2) Advance diet texture as tolerated- on pureed moist texture at this time, w/ poor acceptance 3) Monitor renal + liver fxn-> worsening at this time 4) Consider long acting insulin for improved glycemic control
[2018-05-17 16:00] VITALS: BP 134/62
--- NOTE | 2018-05-17 16:27 | Diagnostic Imaging Report ---
Indications: Abnormal liver function tests Technique: IV administration 5. mCi 99 M technetium Choletec. Serial images obtained over the abdomen for one hour Comparison: None Findings: Prompt tracer uptake within the liver. Extrahepatic bile ducts are seen at 10 minutes. Excretion into the duodenum demonstrated at 20 minutes. Gallbladder visualized at 18 minutes. Impression: Negative
--- NOTE | 2018-05-17 17:11 | Consultation ---
History of Present Illness General Date patient seen: May 17, 2018 Chief Complaint: Abdominal Pain Present Illness Allergies: Coded Allergies: SHELLFISH DERIVED (Verified Allergy, Unknown, swelling and itchiness, 05/14) Medication History Scheduled Aspirin* (Aspir 81*), 81 MG ORAL DAILY, (Reported) Atorvastatin Calcium* (Lipitor*), 80 MG ORAL BEDTIME, (Reported) Carvedilol* (Carvedilol*), 6.25 MG ORAL EVERY 12 HOURS, (Reported) Furosemide* (Lasix*), 20 MG ORAL DAILY, (Reported) Insulin Glargine (Lantus), 20 SUBQ BEDTIME, (Reported) Lisinopril* (Lisinopril*), 20 MG ORAL DAILY, (Reported) Multivitamin/Iron/Folic Acid (Centrum Adults Tablet), 1 EACH PO DAILY, (Reported ) Miscellaneous Medications Linagliptin/Metformin Hcl (Jentadueto 2.5 Mg-1000 Mg Tab), 1 EACH PO, (Reported) Patient History Healthcare decision maker self Resuscitation status Full Code Advanced Directive on File No Physical Exam Last 24 Hour Vital Signs Date Time Temp Pulse Resp B/P (MAP) Pulse Ox O2 Delivery O2 Flow Rate FiO2 05/17/18 16:00 84 05/17/18 16:00 98.4 81 17 134/62 (86) 100 05/17/18 12:00 99.1 84 16 164/72 (102) 99 05/17/18 12:00 81 05/17/18 09:36 98.1 05/17/18 09:15 98.1 05/17/18 09:05 102 132/77 05/17/18 09:00 Nasal Cannula 2.0 05/17/18 08:20 99 24 Nasal Cannula 2.0 28 05/17/18 08:20 Nasal Cannula 2.0 28 05/17/18 08:20 97 Nasal Cannula 2.0 28 05/17/18 08:00 101.7 102 16 134/77 (96) 100 05/17/18 08:00 112 05/17/18 04:00 98.8 83 24 105/56 (72) 100 05/17/18 04:00 83 05/17/18 01:02 89 20 99 Nasal Cannula 2.0 28 05/17/18 00:54 84 20 99 Nasal Cannula 2.0 28 05/17/18 00:54 28 05/17/18 00:00 95 05/17/18 00:00 100.0 90 22 108/42 (64) 100 05/16/18 22:45 102.2 05/16/18 21:53 74 159/79 05/16/18 21:09 74 22 99 Nasal Cannula 2.0 28 05/16/18 21:01 94 25 98 Nasal Cannula 2.0 21 05/16/18 21:01 98 Nasal Cannula 2.0 28 05/16/18 21:01 Nasal Cannula 2.0 28 05/16/18 21:01 28 05/16/18 21:01 94 25 Nasal Cannula 28 05/16/18 21:00 Nasal Cannula 2.0 05/16/18 20:00 97.9 112 19 159/79 (105) 99 05/16/18 20:00 98 Intake and Output 05/16/18 05/17/18 19:00 07:00 Intake Total 100 ml 777.5 ml Output Total 250 ml Balance 100 ml 527.5 ml Intake Oral 240 ml IV Total 100 ml 537.5 ml Output Urine Total 250 ml # Bowel Movements 1 Laboratory Tests Test 05/17/18 08:20 White Blood Count 4.3 K/UL (4.8-10.8) #L Red Blood Count 3.56 M/UL (4.20-5.40) L Hemoglobin 9.2 G/DL (12.0-16.0) L Hematocrit 29.2 % (37.0-47.0) L Mean Corpuscular Volume 82 FL (80-99) Mean Corpuscular Hemoglobin 25.9 PG (27.0-31.0) L Mean Corpuscular Hemoglobin Concent 31.6 G/DL (32.0-36.0) L Red Cell Distribution Width 15.1 % (11.6-14.8) H Platelet Count 151 K/UL (150-450) Mean Platelet Volume 7.2 FL (6.5-10.1) Neutrophils (%) (Auto) 68.4 % (45.0-75.0) Lymphocytes (%) (Auto) 17.7 % (20.0-45.0) L Monocytes (%) (Auto) 11.9 % (1.0-10.0) H Eosinophils (%) (Auto) 1.5 % (0.0-3.0) Basophils (%) (Auto) 0.6 % (0.0-2.0) Sodium Level 130 MMOL/L (136-145) L Potassium Level 4.6 MMOL/L (3.5-5.1) Chloride Level 101 MMOL/L (98-107) Carbon Dioxide Level 15 MMOL/L (21-32) L Anion Gap 14 mmol/L (5-15) Blood Urea Nitrogen 24 mg/dL (7-18) H Creatinine 1.7 MG/DL (0.55-1.30) H Estimat Glomerular Filtration Rate 29.7 mL/min (>60) Glucose Level 227 MG/DL (74-106) H Calcium Level 7.7 MG/DL (8.5-10.1) L Total Bilirubin 1.6 MG/DL (0.2-1.0) H Direct Bilirubin 1.2 MG/DL (0.0-0.3) H Aspartate Amino Transf (AST/SGOT) 114 U/L (15-37) H Alanine Aminotransferase (ALT/SGPT) 185 U/L (12-78) H Alkaline Phosphatase 459 U/L (46-116) H Total Protein 5.6 G/DL (6.4-8.2) L Albumin 2.1 G/DL (3.4-5.0) L Globulin 3.5 g/dL Albumin/Globulin Ratio 0.6 (1.0-2.7) L Height (Feet): 4 Height (Inches): 10.00 Weight (Pounds): 184 Medications Current Medications Medications (Trade) Dose Ordered Sig/Ellen Route PRN Reason Start Time Stop Time Status Last Admin Dose Admin Acetaminophen (Tylenol) 650 mg Q4H PRN ORAL Mild Pain/Temp > 100.5 05/15/18 19:30 06/12/18 19:29 05/17/18 09:06 Acyclovir (Zovirax) 400 mg EVERY 8 HOURS ORAL 05/15/18 22:00 06/13/18 13:59 05/17/18 16:22 Al Hydroxide/Mg Hydroxide (Mylanta) 30 ml Q6H PRN ORAL Abdominal cramps 05/15/18 20:15 06/12/18 08:14 Albuterol Sulfate (Proventil) 2.5 mg Q4H PRN HHN Shortness of Breath 05/16/18 14:15 05/21/18 14:14 05/17/18 00:54 Apixaban (Eliquis) 5 mg BID ORAL 05/16/18 09:00 06/14/18 17:59 05/17/18 09:06 Barium Sulfate (Readi-Cat 2) 450 ml NOW PRN ORAL Radiology Procedure 05/16/18 11:15 05/17/18 23:59 Barium Sulfate (Readi-Cat 2) 450 ml NOW PRN ORAL Radiology Procedure 05/16/18 12:00 05/17/18 23:59 Dextrose (Dextrose 50%) 25 ml Q30M PRN IV Hypoglycemia 05/15/18 19:15 06/13/18 10:14 Dextrose (Dextrose 50%) 50 ml Q30M PRN IV Hypoglycemia 05/15/18 19:15 06/13/18 10:14 Insulin Aspart (NovoLOG) BEFORE MEALS AND HS SUBQ 05/15/18 21:00 06/13/18 11:29 05/17/18 16:28 Levofloxacin (Levaquin) 250 mg DAILY ORAL 05/18/18 09:00 05/25/18 08:59 Magnesium Hydroxide (Mom) 30 ml DAILYPRN PRN ORAL Constipation 05/15/18 19:00 06/14/18 18:59 Metoprolol Tartrate (Lopressor) 25 mg Q12HR ORAL 05/15/18 21:00 06/14/18 17:59 05/17/18 09:05 Micafungin Sodium 100 mg/Sodium Chloride 110 ml @ 110 mls/hr Q24H IVPB 05/17/18 12:00 05/24/18 11:59 05/17/18 12:24 Pantoprazole (Protonix) 40 mg DAILY IVP 05/16/18 09:00 06/12/18 08:59 05/17/18 09:05 Sodium Chloride 1,000 ml @ 100 mls/hr Q10H IV 05/15/18 19:15 06/13/18 10:14 05/16/18 15:24 Assessment/Plan Assessment/Plan Hematology Consultation REFERRING PHYSICIAN: Jesus Lew M.D. RFC: Evaluation of pancytopenia DOS: 05/17/18 HISTORY OF PRESENT ILLNESS: The patient is a 72-year-old [place] woman, who was in a cruise and had a gout attack in her foot. She subsequently cut down her oral intake, but then she became sick and nauseous and came to emergency room at [facility] afterwards where she was noted to have diabetic ketoacidosis. The patient did have some abdominal discomfort, sore throat and chills prior to presentation. She is now in the ICU on an insulin drip and feels better. The patient has had no previous liver history, GI history, hepatitis history or drinking history. The patient has no family history of liver disease. Her last endoscopy and colonoscopy was about five years ago and she says they were unremarkable. noted to have a decreased wbc and heme was consulted, noted to have evidence for pancreatitis and now out of the icu, is on abx, seen by pulm and id, renal. PAST MEDICAL HISTORY: History of diabetes and coronary artery disease, status post coronary artery bypass graft procedure. History of gout. PAST SURGICAL HISTORY: Status post coronary artery bypass graft procedure and status post x3. FAMILY HISTORY: Noncontributory. SOCIAL HISTORY: The patient does not smoke or drink alcohol. MEDICATIONS: See chart list for details. REVIEW OF SYSTEMS: Otherwise negative. PHYSICAL EXAMINATION: GENERAL: Pleasant [place] woman seen in the ICU. HEENT: Normocephalic and atraumatic. Sclerae anicteric. Oropharynx clear. NECK: Supple. CHEST: Clear to auscultation. CARDIOVASCULAR: Revealed regular rate. ABDOMEN: Soft. Good bowel sounds. There is no organomegaly or tenderness. Anterior chest and abdomen scars were as expected. EXTREMITIES: Revealed no edema. Laboratory Tests Test 05/17/18 08:20 White Blood Count 4.3 K/UL (4.8-10.8) #L Red Blood Count 3.56 M/UL (4.20-5.40) L Hemoglobin 9.2 G/DL (12.0-16.0) L Hematocrit 29.2 % (37.0-47.0) L Mean Corpuscular Volume 82 FL (80-99) Mean Corpuscular Hemoglobin 25.9 PG (27.0-31.0) L Mean Corpuscular Hemoglobin Concent 31.6 G/DL (32.0-36.0) L Red Cell Distribution Width 15.1 % (11.6-14.8) H Platelet Count 151 K/UL (150-450) Mean Platelet Volume 7.2 FL (6.5-10.1) Neutrophils (%) (Auto) 68.4 % (45.0-75.0) Lymphocytes (%) (Auto) 17.7 % (20.0-45.0) L Monocytes (%) (Auto) 11.9 % (1.0-10.0) H Eosinophils (%) (Auto) 1.5 % (0.0-3.0) Basophils (%) (Auto) 0.6 % (0.0-2.0) Sodium Level 130 MMOL/L (136-145) L Potassium Level 4.6 MMOL/L (3.5-5.1) Chloride Level 101 MMOL/L (98-107) Carbon Dioxide Level 15 MMOL/L (21-32) L Anion Gap 14 mmol/L (5-15) Blood Urea Nitrogen 24 mg/dL (7-18) H Creatinine 1.7 MG/DL (0.55-1.30) H Estimat Glomerular Filtration Rate 29.7 mL/min (>60) Glucose Level 227 MG/DL (74-106) H Calcium Level 7.7 MG/DL (8.5-10.1) L Total Bilirubin 1.6 MG/DL (0.2-1.0) H Direct Bilirubin 1.2 MG/DL (0.0-0.3) H Aspartate Amino Transf (AST/SGOT) 114 U/L (15-37) H Alanine Aminotransferase (ALT/SGPT) 185 U/L (12-78) H Alkaline Phosphatase 459 U/L (46-116) H Total Protein 5.6 G/DL (6.4-8.2) L Albumin 2.1 G/DL (3.4-5.0) L Globulin 3.5 g/dL Albumin/Globulin Ratio 0.6 (1.0-2.7) L HIV (1&2) Antibody Rapid Pending Current Medications Medications (Trade) Dose Ordered Sig/Ellen Route PRN Reason Start Time Stop Time Status Last Admin Dose Admin Acetaminophen (Tylenol) 650 mg Q4H PRN ORAL Mild Pain/Temp > 100.5 05/15/18 19:30 06/12/18 19:29 05/17/18 09:06 Acyclovir (Zovirax) 400 mg EVERY 8 HOURS ORAL 05/15/18 22:00 06/13/18 13:59 05/17/18 16:22 Al Hydroxide/Mg Hydroxide (Mylanta) 30 ml Q6H PRN ORAL Abdominal cramps 05/15/18 20:15 06/12/18 08:14 Albuterol Sulfate (Proventil) 2.5 mg Q4H PRN HHN Shortness of Breath 05/16/18 14:15 05/21/18 14:14 05/17/18 00:54 Apixaban (Eliquis) 5 mg BID ORAL 05/16/18 09:00 06/14/18 17:59 05/17/18 09:06 Barium Sulfate (Readi-Cat 2) 450 ml NOW PRN ORAL Radiology Procedure 05/16/18 11:15 05/17/18 23:59 Barium Sulfate (Readi-Cat 2) 450 ml NOW PRN ORAL Radiology Procedure 05/16/18 12:00 05/17/18 23:59 Dextrose (Dextrose 50%) 25 ml Q30M PRN IV Hypoglycemia 05/15/18 19:15 06/13/18 10:14 Dextrose (Dextrose 50%) 50 ml Q30M PRN IV Hypoglycemia 05/15/18 19:15 06/13/18 10:14 Insulin Aspart (NovoLOG) BEFORE MEALS AND HS SUBQ 05/15/18 21:00 06/13/18 11:29 05/17/18 16:28 Levofloxacin (Levaquin) 250 mg DAILY ORAL 05/18/18 09:00 05/25/18 08:59 Magnesium Hydroxide (Mom) 30 ml DAILYPRN PRN ORAL Constipation 05/15/18 19:00 06/14/18 18:59 Metoprolol Tartrate (Lopressor) 25 mg Q12HR ORAL 05/15/18 21:00 06/14/18 17:59 05/17/18 09:05 Micafungin Sodium 100 mg/Sodium Chloride 110 ml @ 110 mls/hr Q24H IVPB 05/17/18 12:00 05/24/18 11:59 05/17/18 12:24 Pantoprazole (Protonix) 40 mg DAILY IVP 05/16/18 09:00 06/12/18 08:59 05/17/18 09:05 Sodium Chloride 1,000 ml @ 100 mls/hr Q10H IV 05/15/18 19:15 06/13/18 10:14 05/16/18 15:24 Assessment and Recs # Pancytopenia -- appears that initial hep and hiv are negative though final results to follow, liver shows no major hsm or cirrhosis, may consider meds or bone marrow process, smear reviewed --> this pancytopenia is acute in onset, over last several days, thus most likely abx v antifungal related --> query meds, review with ID, is on micafungin now, monitor counts closely --> if no other cause and/or worsens, may consider flow cytometry or a bone marrow biopsy --> nepogen 300mcg sq to maintain anc >1500 # Anemia of chronic disease - monitor anemia panel --> hemolysis does not appear to be the case --> anemia panel reviewed # Paroxysmal atrial fibrillation, due to CHADS-VASC score of 5, we require to keep anticoagulated, on metoprolol --> continue on apixaban # Hx of CAD, s/p CABG, ASA , atorvastatin and metoprolol. No wall motion abnormalities on Echo. LVEF ~55%. --> appreciate cards recs # Sinus tachycardia due to hypovolemia, resolved. # DKA, resolved. # DM, non-compliant with medications. # Hx of HTN, controlled with metoprolol. # pancreatitis # increased LFT The timing of this note does not necessarily reflect the time of the patient was seen Greatly appreciate consultation! Armando Bowen MD May 17, 2018 17:11
--- NOTE | 2018-05-17 17:55 | NUR ---
NURSE NOTES: Pt started complaining of SOB, saturating at 97% on 3L NC with RR of 30. Endorsed to Dr[address] Lew who ordered Ativan 1 mg PO 3 qh PRN for mild anxiety, stat venous duplex for legs, Lovenox 1 mg/kg SQ BID, stat VQ scan, and to hold Eliquis. Pt given breathing tx for relief and Ativan 1 mg PO. Will continue to monitor.
[2018-05-17] MEDS: Milk of Magnesia 30ml Ud ORAL PRN (18:17)
[2018-05-17] MEDS: LORazepam 1mg tab ORAL PRN (18:19)
--- NOTE | 2018-05-17 19:15 | NUR ---
HAND-OFF: Report given to WAYNE Zimmerman.
--- NOTE | 2018-05-17 19:16 | NUR ---
NURSE NOTES: Received patient from WAYNE Murillo. Patient in bed asleep with no signs of acute distress. Respiration even and non labored on 4L NC. IV line patent and intact. VS stable. Bed in lowest position. All needs attended and met. Call light within reach. Will continue plan of care.
[2018-05-17 20:00] VITALS: BP 110/57
--- NOTE | 2018-05-17 20:39 | NUR ---
NURSE NOTES: Patient has a temperature of 102.1F, Dr. Lew is made aware and received order to continue Tylenol.
[2018-05-17] MEDS: Enoxaparin 80mg Inj SUBQ SCH (23:07)
--- NOTE | 2018-05-17 23:49 | Cardiology Progress Note ---
Assessment/Plan Assessment/Plan 1. Paroxysmal atrial fibrillation, due to CHADS-VASC score of 5, we require to keep anticoagulated, on metoprolol. 2. Hx of CAD, s/p CABG, ASA , atorvastatin and metoprolol. No wall motion abnormalities on Echo. LVEF ~55%. 3. Sinus tachycardia due to hypovolemia. 4. DKA, resolved. 5. DM, non-compliant with medications. 6. Hx of HTN, controlled with metoprolol. Subjective Subjective Sinus tachycardia at rate of 101. Objective Last 24 Hour Vital Signs Date Time Temp Pulse Resp B/P (MAP) Pulse Ox O2 Delivery O2 Flow Rate FiO2 05/17/18 23:03 100 110/57 05/17/18 21:42 101.2 05/17/18 17:40 101 32 94 Nasal Cannula 4.0 36 05/17/18 17:28 105 32 95 Nasal Cannula 4.0 36 05/17/18 16:00 84 05/17/18 16:00 98.4 81 17 134/62 (86) 100 05/17/18 12:00 99.1 84 16 164/72 (102) 99 05/17/18 12:00 81 05/17/18 09:36 98.1 05/17/18 09:15 98.1 05/17/18 09:05 102 132/77 05/17/18 09:00 Nasal Cannula 2.0 05/17/18 08:20 99 24 Nasal Cannula 2.0 28 05/17/18 08:20 Nasal Cannula 2.0 28 05/17/18 08:20 97 Nasal Cannula 2.0 28 05/17/18 08:00 101.7 102 16 134/77 (96) 100 05/17/18 08:00 112 05/17/18 04:00 98.8 83 24 105/56 (72) 100 05/17/18 04:00 83 05/17/18 01:02 89 20 99 Nasal Cannula 2.0 28 05/17/18 00:54 84 20 99 Nasal Cannula 2.0 28 05/17/18 00:54 28 05/17/18 00:00 95 05/17/18 00:00 100.0 90 22 108/42 (64) 100 Intake and Output 05/16/18 05/17/18 19:00 07:00 Intake Total 100 ml 777.5 ml Output Total 250 ml Balance 100 ml 527.5 ml Intake Oral 240 ml IV Total 100 ml 537.5 ml Output Urine Total 250 ml # Bowel Movements 1 2D Echo: EF55%,Mild LVH,Mod MR,Mild AR,RVSP 67 mmHg (severe PHT),Restrictive LV phys Laboratory Tests Test 05/17/18 08:20 White Blood Count 4.3 K/UL (4.8-10.8) #L Red Blood Count 3.56 M/UL (4.20-5.40) L Hemoglobin 9.2 G/DL (12.0-16.0) L Hematocrit 29.2 % (37.0-47.0) L Mean Corpuscular Volume 82 FL (80-99) Mean Corpuscular Hemoglobin 25.9 PG (27.0-31.0) L Mean Corpuscular Hemoglobin Concent 31.6 G/DL (32.0-36.0) L Red Cell Distribution Width 15.1 % (11.6-14.8) H Platelet Count 151 K/UL (150-450) Mean Platelet Volume 7.2 FL (6.5-10.1) Neutrophils (%) (Auto) 68.4 % (45.0-75.0) Lymphocytes (%) (Auto) 17.7 % (20.0-45.0) L Monocytes (%) (Auto) 11.9 % (1.0-10.0) H Eosinophils (%) (Auto) 1.5 % (0.0-3.0) Basophils (%) (Auto) 0.6 % (0.0-2.0) Sodium Level 130 MMOL/L (136-145) L Potassium Level 4.6 MMOL/L (3.5-5.1) Chloride Level 101 MMOL/L (98-107) Carbon Dioxide Level 15 MMOL/L (21-32) L Anion Gap 14 mmol/L (5-15) Blood Urea Nitrogen 24 mg/dL (7-18) H Creatinine 1.7 MG/DL (0.55-1.30) H Estimat Glomerular Filtration Rate 29.7 mL/min (>60) Glucose Level 227 MG/DL (74-106) H Calcium Level 7.7 MG/DL (8.5-10.1) L Total Bilirubin 1.6 MG/DL (0.2-1.0) H Direct Bilirubin 1.2 MG/DL (0.0-0.3) H Aspartate Amino Transf (AST/SGOT) 114 U/L (15-37) H Alanine Aminotransferase (ALT/SGPT) 185 U/L (12-78) H Alkaline Phosphatase 459 U/L (46-116) H Total Protein 5.6 G/DL (6.4-8.2) L Albumin 2.1 G/DL (3.4-5.0) L Globulin 3.5 g/dL Albumin/Globulin Ratio 0.6 (1.0-2.7) L HIV (1&2) Antibody Rapid Negative (NEGATIVE) Objective HEENT: Normocephalic, atraumatic, Pupils equally reactive to light and accommodation, EOMI. NECK: No JVD, no carotid bruit. CARDIOVASCULAR: Regular rate and rhythm. No murmurs, gallops or rubs. LUNGS: Clear to auscultation bilaterally. No crackles or Rhonchi. ABDOMEN: Soft and nontender. No organomegaly, + BS. EXTREMITIES: No cyanosis, clubbing or edema. Miller Mckeon MD May 17, 2018 23:49
[2018-05-18] VITALS: BP 104/49
--- NOTE | 2018-05-18 01:00 | NUR ---
NURSE NOTES: IV site appears to be leaking. Will attempt to start a new IV site. Patient made aware.
[2018-05-18 04:00] VITALS: BP 125/58
[2018-05-18] MEDS: NovoLOG Insulin Flexpen SUBQ SCH ×4 (06:30→21:34)
--- NOTE | 2018-05-18 07:20 | NUR ---
HAND-OFF: Report given to WAYNE Joseph. Patient is stable
--- NOTE | 2018-05-18 07:30 | NUR ---
NURSE NOTES: Received bedside report from Deepali BLACK. Pt. in bed, asleep but arousable. No sign of distress. On 4LPM via NC. No grimacing noted. IV at LFA #20g. in placed running NS at 100cc/hr. Pt. noted and endoresed by noc shift with upper body rash all over. Denies itching. Bed in low position, locked. Call light within reach. Will cont. to monitor.
[2018-05-18 08:00] VITALS: BP 117/56
--- NOTE | 2018-05-18 08:15 | General Progress Note ---
Assessment/Plan Assessment/Plan Impression Diabetic ketoacidosis Anemia Transaminitis of unclear etiology Severe protein calorie malnutrition Evidence of pancreatitis, better Acute renal failure, improved Hyperglycemia Diabetes Hyponatremia Metabolic acidosis Hypercholesterolemia fever oral ulcers afib with RVR leukopenia monitor sugars cards noted Renal and GI evaluation ID evaluation heme noted Monitor liver enzymes and renal function; off statin check cultures and await ID clearance- abx change noted impression, plan, and exam edited and reviewed in detail care discussed with RN Subjective Allergies: Coded Allergies: SHELLFISH DERIVED (Verified Allergy, Unknown, swelling and itchiness, 05/14) Subjective tele afib leukopenia better fevers noted Objective Last 24 Hour Vital Signs Date Time Temp Pulse Resp B/P (MAP) Pulse Ox O2 Delivery O2 Flow Rate FiO2 05/18/18 04:00 99.1 76 24 125/58 (80) 100 05/18/18 04:00 78 05/18/18 00:00 98 05/18/18 00:00 101.2 94 21 104/49 (67) 100 05/17/18 23:03 100 110/57 05/17/18 21:42 101.2 05/17/18 21:00 Nasal Cannula 2.0 05/17/18 20:46 Nasal Cannula 2.0 28 05/17/18 20:46 93 18 Nasal Cannula 2.0 28 05/17/18 20:46 99 Nasal Cannula 2.0 28 05/17/18 20:00 106 05/17/18 20:00 102.3 89 28 110/57 (74) 100 05/17/18 17:40 101 32 94 Nasal Cannula 4.0 36 05/17/18 17:28 105 32 95 Nasal Cannula 4.0 36 05/17/18 16:00 84 05/17/18 16:00 98.4 81 17 134/62 (86) 100 05/17/18 12:00 99.1 84 16 164/72 (102) 99 05/17/18 12:00 81 05/17/18 09:36 98.1 05/17/18 09:15 98.1 05/17/18 09:05 102 132/77 05/17/18 09:00 Nasal Cannula 2.0 05/17/18 08:20 99 24 Nasal Cannula 2.0 28 05/17/18 08:20 Nasal Cannula 2.0 28 1/28/19 08:20 97 Nasal Cannula 2.0 28 Intake and Output 05/17/18 05/18/18 19:00 07:00 Intake Total 960 ml 120 ml Balance 960 ml 120 ml Intake Oral 240 ml 120 ml IV Total 720 ml # Voids 1 3 # Bowel Movements 1 1 Laboratory Tests 05/17/18 08:20: White Blood Count 4.3#L, Red Blood Count 3.56L, Hemoglobin 9.2L, Hematocrit 29.2L, Mean Corpuscular Volume 82, Mean Corpuscular Hemoglobin 25.9L, Mean Corpuscular Hemoglobin Concent 31.6L, Red Cell Distribution Width 15.1H, Platelet Count 151, Mean Platelet Volume 7.2, Neutrophils (%) (Auto) 68.4, Lymphocytes (%) (Auto) 17.7L, Monocytes (%) (Auto) 11.9H, Eosinophils (%) (Auto ) 1.5, Basophils (%) (Auto) 0.6, Sodium Level 130L, Potassium Level 4.6, Chloride Level 101, Carbon Dioxide Level 15L, Anion Gap 14, Blood Urea Nitrogen 24H, Creatinine 1.7H, Estimat Glomerular Filtration Rate 29.7, Glucose Level 227H, Calcium Level 7.7L, Total Bilirubin 1.6H, Direct Bilirubin 1.2H, Aspartate Amino Transf (AST/SGOT) 114H, Alanine Aminotransferase (ALT/SGPT) 185H , Alkaline Phosphatase 459H, Total Protein 5.6L, Albumin 2.1L, Globulin 3.5, Albumin/Globulin Ratio 0.6L, HIV (1&2) Antibody Rapid Negative Height (Feet): 4 Height (Inches): 10.00 Weight (Pounds): 181 Objective WDWN NAD clear breath sounds bilaterally without rhonchi or wheeze S1S2 iRRR without MRG NABS nontender no HSM no CCE nonfocal oral ulcers better dry alert Jesus Lew MD May 18, 2018 08:15
[2018-05-18] MEDS: Metoprolol 25mg tab ORAL SCH ×2 (09:00→21:21)
[2018-05-18] MEDS: Pantoprazole Inj IVP SCH (09:00)
[2018-05-18] MEDS: Enoxaparin 80mg Inj SUBQ SCH ×2 (09:00→21:22)
--- NOTE | 2018-05-18 10:45 | Infectious Diseases Prog Note ---
Assessment/Plan Assessment/Plan antibiotics : levoquin, micafungin, acyclovir A 1. pancreatitis 2. herpes of lip 3. diabetic ketoacidosis 4. increased LFT 5. fever 6. hypertension 7. fungal UTI 8. ? drug reaction P 1. continue acyclovir 2. continue levoquin, micafungin 3. HIDA scan pending 4. will follow up cultures Subjective Constitutional: Denies: fever, chills Respiratory: Denies: shortness of breath, dry cough Gastrointestinal/Abdominal: Denies: nausea, vomiting, diarrhea Musculoskeletal: Denies: pain Allergies: Coded Allergies: SHELLFISH DERIVED (Verified Allergy, Unknown, swelling and itchiness, 05/14) Objective Vital Signs Last 24 Hour Vital Signs Date Time Temp Pulse Resp B/P (MAP) Pulse Ox O2 Delivery O2 Flow Rate FiO2 05/18/18 08:00 100.4 90 22 117/56 (76) 97 05/18/18 04:00 99.1 76 24 125/58 (80) 100 05/18/18 04:00 78 05/18/18 00:00 98 05/18/18 00:00 101.2 94 21 104/49 (67) 100 05/17/18 23:03 100 110/57 05/17/18 21:42 101.2 05/17/18 21:00 Nasal Cannula 2.0 05/17/18 20:46 Nasal Cannula 2.0 28 05/17/18 20:46 93 18 Nasal Cannula 2.0 28 05/17/18 20:46 99 Nasal Cannula 2.0 28 05/17/18 20:00 106 05/17/18 20:00 102.3 89 28 110/57 (74) 100 05/17/18 17:40 101 32 94 Nasal Cannula 4.0 36 05/17/18 17:28 105 32 95 Nasal Cannula 4.0 36 05/17/18 16:00 84 05/17/18 16:00 98.4 81 17 134/62 (86) 100 05/17/18 12:00 99.1 84 16 164/72 (102) 99 05/17/18 12:00 81 Height (Feet): 4 Height (Inches): 10.00 Weight (Pounds): 181 HEENT: other - lip hyperpigmented Respiratory/Chest: lungs clear Cardiovascular: normal rate, regular rhythm, no gallop/murmur Abdomen: soft, non tender Extremities: other - + edema Skin: rash - erythematous Microbiology Date/Time Source Procedure Growth Status 05/17/18 13:00 Urine,Clean Catch Urine Culture - Preliminary Resulted Current Medications Medications (Trade) Dose Ordered Sig/Ellen Route PRN Reason Start Time Stop Time Status Last Admin Dose Admin Acetaminophen (Tylenol) 650 mg Q4H PRN ORAL Mild Pain/Temp > 100.5 05/17/18 20:45 06/16/18 20:44 05/17/18 21:12 Acyclovir (Zovirax) 400 mg EVERY 8 HOURS ORAL 05/15/18 22:00 06/13/18 13:59 05/18/18 06:53 Al Hydroxide/Mg Hydroxide (Mylanta) 30 ml Q6H PRN ORAL Abdominal cramps 05/15/18 20:15 06/12/18 08:14 Albuterol Sulfate (Proventil) 2.5 mg Q4H PRN HHN Shortness of Breath 05/16/18 14:15 05/21/18 14:14 05/17/18 17:28 Dextrose (Dextrose 50%) 25 ml Q30M PRN IV Hypoglycemia 05/15/18 19:15 06/13/18 10:14 Dextrose (Dextrose 50%) 50 ml Q30M PRN IV Hypoglycemia 05/15/18 19:15 06/13/18 10:14 Enoxaparin Sodium (Lovenox) 80 mg EVERY 12 HOURS SUBQ 05/17/18 21:00 06/16/18 20:59 05/17/18 23:07 Insulin Aspart (NovoLOG) BEFORE MEALS AND HS SUBQ 05/15/18 21:00 06/13/18 11:29 05/17/18 23:04 Levofloxacin (Levaquin) 250 mg DAILY ORAL 05/18/18 09:00 05/25/18 08:59 Lorazepam (Ativan) 1 mg Q3H PRN ORAL For Anxiety 05/17/18 17:45 05/24/18 17:44 05/17/18 18:19 Magnesium Hydroxide (Mom) 30 ml DAILYPRN PRN ORAL Constipation 05/15/18 19:00 06/14/18 18:59 05/17/18 18:17 Metoprolol Tartrate (Lopressor) 25 mg Q12HR ORAL 05/15/18 21:00 06/14/18 17:59 05/17/18 23:03 Micafungin Sodium 100 mg/Sodium Chloride 110 ml @ 110 mls/hr Q24H IVPB 05/17/18 12:00 05/24/18 11:59 05/17/18 12:24 Pantoprazole (Protonix) 40 mg DAILY IVP 05/16/18 09:00 06/12/18 08:59 05/17/18 09:05 Sodium Chloride 1,000 ml @ 100 mls/hr Q10H IV 05/15/18 19:15 06/13/18 10:14 05/16/18 15:24 Khadra Melendez MD May 18, 2018 10:45
--- NOTE | 2018-05-18 11:56 | Diagnostic Imaging Report ---
Indications: Shortness of breath Technique: IV administration 5.5 mCi 99m technetium macroaggregated albumin. Images obtained over the lungs in multiple projections. Previously, patient inhaled 40 mCi aerosolized 99M technetium DTPA. Images obtained over the lungs in multiple projections Comparison: Reference made to chest radiograph 05/13/2018 Findings: Slightly heterogeneous perfusion, suggestion of subsegmental perfusion defect in the posterior left upper lobe. Slightly more heterogeneous tracer distribution on the aerosol images, demonstrating that the left upper lobe perfusion defect is matched. No other segmental or subsegmental perfusion defects. No evidence of aerosol perfusion mismatch. Impression: Findings deemed low probability for pulmonary embolus
[2018-05-18 12:00] VITALS: BP 130/59
[2018-05-18] MEDS: Micafungin 100 MG in NS 110 ML IVPB SCH (12:19)
--- NOTE | 2018-05-18 12:59 | Diagnostic Imaging Report ---
Indication: Cholelithiasis, abdominal pain Technique: Coronal and axial single shot fast spin-echo breath-hold, axial T2 FRFSE, 2-D thick slab MRCP, AXIAL 2-D FIESTA fat saturated, axial 3-D dual echo breath-hold, water weighted axial LAVA FLEX, revealed 3-D MRCP images were obtained of the abdomen. MIP reconstructions were generated of the bile ducts Comparison: Reference made to hepatobiliary nuclear scan 05/17/2018, CT abdomen and pelvis 05/14/2018, ultrasound abdomen 05/13/2018 Findings: Exam is limited due to respiratory motion artifact. A few tiny filling defects, corresponding to the calculi demonstrated on recent ultrasound, are barely visible in the gallbladder fundus near the neck. The gallbladder is nondistended and there is no significant wall thickening or pericholecystic edema. The bile ducts are nondilated. However, there is absence of signal correlating to the downstream common hepatic duct on the MRCP images, and the axial single shot fast spin-echo images suggest a filling defect. On review of the prior CT scan, there are one or more calcifications in the hepatic hilum which could be projecting outside the gallbladder lumen. The pancreatic duct is not clearly visualized. The liver, pancreas spleen, adrenals, kidneys are all grossly unremarkable, although evaluation of all of these is markedly limited due to motion artifact. There are bilateral pleural effusions demonstrated, also reported on prior studies. Impression: Limited exam, due to respiratory motion artifact Cholelithiasis, also previously described No evidence of biliary ductal dilatation. However, there is apparent nonvisualization of the downstream segment of the common hepatic duct. Suspect that this is artifactual given the extensive motion artifact present, but the possibility of choledocholithiasis or biliary stricture in this area cannot be ruled out. Note that if this is a real finding, it is presumably nonobstructive given rapid transit of tracer on recent hepatobiliary scan Bilateral pleural effusions
--- NOTE | 2018-05-18 13:06 | NUR ---
*-* DISCHARGE PLANNING *-* PATIENT HAS BEEN REFERRED TO: DUNIA PICHARDO P:[phone] F:[phone]
--- NOTE | 2018-05-18 15:48 | NUR ---
*-* DISCHARGE PLANNED *-* PATIENT IS DISCAHRGE TO: CV [facility]# [id number] SKILLED T:[phone] FOR NURSE TO NURSE REPORT [facility] HAS BEEN ARRANGED FOR CASE THERAPIST [id number] BLACK [id number]
[2018-05-18 16:00] VITALS: BP 140/72
[2018-05-18 20:00] VITALS: BP 114/61
--- NOTE | 2018-05-18 20:00 | NUR ---
NURSE NOTES: Report received from Opal BLACK. Patient is observed in bed, awake, arousable, and oriented. Patient denies pain at this time. Respiratory even and unlabored. No s/s of distress noted at this time. IV is asymptomatic, patent, and intact. Bed is in lowest position with side rails up x2 and brakes are engaged. Encouraged patient to use call light when in need of assistance, patient verbalized understanding. Will continue to monitor.
--- NOTE | 2018-05-18 20:12 | NUR ---
HAND-OFF: Report given to Maribel BLACK. Pt. remain stable.
--- NOTE | 2018-05-18 20:15 | NUR ---
NURSE NOTES: Assisted patient to the bedside commode. Patient has generalized rashes and redness. Warm to touch. Excoriation and deep skin tear noted on perineal area. Also, black crusts are noted on the lips. Skin care implemented.
--- NOTE | 2018-05-18 21:01 | General Progress Note ---
Assessment/Plan Assessment/Plan Assessment and Recs # Pancytopenia -- appears that initial hep and hiv are negative though final results to follow, liver shows no major hsm or cirrhosis, may consider meds or bone marrow process, smear reviewed --> this pancytopenia is acute in onset, over last several days, thus most likely abx v antifungal related --> query meds, review with ID, is on micafungin now, monitor counts closely --> if no other cause and/or worsens, may consider flow cytometry or a bone marrow biopsy --> nepogen 300mcg sq to maintain anc >1500 # Anemia of chronic disease - monitor anemia panel --> hemolysis does not appear to be the case --> anemia panel reviewed # Paroxysmal atrial fibrillation, due to CHADS-VASC score of 5, we require to keep anticoagulated, on metoprolol --> continue on apixaban # Hx of CAD, s/p CABG, ASA , atorvastatin and metoprolol. No wall motion abnormalities on Echo. LVEF ~55%. --> appreciate cards recs # Sinus tachycardia due to hypovolemia, resolved. # DKA, resolved. # DM, non-compliant with medications. # Hx of HTN, controlled with metoprolol. # pancreatitis # increased LFT The timing of this note does not necessarily reflect the time of the patient was seen Greatly appreciate consultation! Subjective Constitutional: Denies: no symptoms, chills, diaphoresis, fever, malaise, weakness, other HEENT: Denies: no symptoms, eye pain, blurred vision, tearing, double vision, ear pain, ear discharge, nose pain, nose congestion, throat pain, throat swelling, mouth pain, mouth swelling, other Cardiovascular: Denies: no symptoms, chest pain, edema, irregular heart rate, lightheadedness, palpitations, syncope, other Respiratory: Denies: no symptoms, cough, orthopnea, shortness of breath, SOB with excertion, SOB at rest, sputum, stridor, wheezing, other Gastrointestinal/Abdominal: Denies: no symptoms, abdomen distended, abdominal pain, black stools, tarry stools, blood in stool, constipated, diarrhea, difficulty swallowing, nausea, poor appetite, poor fluid intake, rectal bleeding , vomiting, other Genitourinary: Denies: no symptoms, burning, discharge, frequency, flank pain, hematuria, incontinence, pain, urgency, other Neurologic/Psychiatric: Denies: no symptoms, anxiety, depressed, emotional problems, headache, numbness, paresthesia, pre-existing deficit, seizure, tingling, tremors, weakness, other Endocrine: Denies: no symptoms, excessive sweating, flushing, intolerance to cold, intolerance to heat, increased hunger, increased thirst, increased urine, unexplained weight gain, unexplained weight loss, other Hematologic/Lymphatic: Denies: no symptoms, anemia, easy bleeding, easy bruising, other Allergies: Coded Allergies: SHELLFISH DERIVED (Verified Allergy, Unknown, swelling and itchiness, 05/14) Subjective 05/18: Pt is awake and comfortable, no events, leukopenia improved, wbc 4.3, plt 151 Objective Last 24 Hour Vital Signs Date Time Temp Pulse Resp B/P (MAP) Pulse Ox O2 Delivery O2 Flow Rate FiO2 05/18/18 16:53 98.6 05/18/18 16:01 109 05/18/18 16:00 101.0 102 21 140/72 (94) 94 05/18/18 12:00 99.9 93 20 130/59 (82) 94 05/18/18 11:32 98 05/18/18 09:00 Nasal Cannula 2.0 05/18/18 08:13 87 05/18/18 08:00 100.4 90 22 117/56 (76) 97 05/18/18 04:00 99.1 76 24 125/58 (80) 100 05/18/18 04:00 78 05/18/18 00:00 98 05/18/18 00:00 101.2 94 21 104/49 (67) 100 05/17/18 23:03 100 110/57 05/17/18 21:00 Nasal Cannula 2.0 Intake and Output 05/17/18 05/18/18 19:00 07:00 Intake Total 960 ml 120 ml Balance 960 ml 120 ml Intake Oral 240 ml 120 ml IV Total 720 ml # Voids 1 3 # Bowel Movements 1 1 Height (Feet): 4 Height (Inches): 10.00 Weight (Pounds): 181 Objective PHYSICAL EXAMINATION: GENERAL: Pleasant [place] woman seen in the ICU. HEENT: Normocephalic and atraumatic. Sclerae anicteric. Oropharynx clear. NECK: Supple. CHEST: Clear to auscultation. CARDIOVASCULAR: Revealed regular rate. ABDOMEN: Soft. Good bowel sounds. There is no organomegaly or tenderness. Anterior chest and abdomen scars were as expected. EXTREMITIES: Revealed no edema. Armando Bowen MD May 18, 2018 21:01
--- NOTE | 2018-05-18 22:35 | General Progress Note ---
Assessment/Plan Assessment/Plan Assessment - DKA - Abnormal LFT - Urolithiasis - Cholelithiasis - DM - CAD/CABG - Gout Recommendations - follow LFT - po as tolerated - Check MRCP - Po diet ad rand Subjective Allergies: Coded Allergies: SHELLFISH DERIVED (Verified Allergy, Unknown, swelling and itchiness, 05/14) Subjective Delayed entry noted Date of visit 05/17/18 no abdominal pain labs d/w patient HIDA negative Objective Last 24 Hour Vital Signs Date Time Temp Pulse Resp B/P (MAP) Pulse Ox O2 Delivery O2 Flow Rate FiO2 05/18/18 21:21 90 114/61 05/18/18 21:00 Nasal Cannula 2.0 05/18/18 20:00 98.8 90 19 114/61 (78) 100 05/18/18 16:53 98.6 05/18/18 16:01 109 05/18/18 16:00 101.0 102 21 140/72 (94) 94 05/18/18 12:00 99.9 93 20 130/59 (82) 94 05/18/18 11:32 98 05/18/18 09:00 Nasal Cannula 2.0 05/18/18 08:13 87 05/18/18 08:00 100.4 90 22 117/56 (76) 97 05/18/18 04:00 99.1 76 24 125/58 (80) 100 05/18/18 04:00 78 05/18/18 00:00 98 05/18/18 00:00 101.2 94 21 104/49 (67) 100 05/17/18 23:03 100 110/57 Intake and Output 05/17/18 05/18/18 18:59 06:59 Intake Total 1060 ml 120 ml Balance 1060 ml 120 ml Intake Oral 240 ml 120 ml IV Total 820 ml # Voids 1 3 # Bowel Movements 1 1 Height (Feet): 4 Height (Inches): 10.00 Weight (Pounds): 181 Objective WDWN NCAT, crusted tissue around mouth supple CTA RRR abd soft, ND no edema non focal Mary Jewell MD May 18, 2018 22:35
--- NOTE | 2018-05-18 22:38 | General Progress Note ---
Assessment/Plan Assessment/Plan Assessment - DKA - Abnormal LFT - Urolithiasis - Cholelithiasis, negative MRCP but distal CBD not seen - DM - CAD/CABG - Gout Recommendations - follow LFT - po as tolerated - If abnormal LFT worsens, will consider ERCP Subjective Allergies: Coded Allergies: SHELLFISH DERIVED (Verified Allergy, Unknown, swelling and itchiness, 05/14) Subjective Feels OK / same denies abd pain MRI noted - negative but distal CBD not seen Objective Last 24 Hour Vital Signs Date Time Temp Pulse Resp B/P (MAP) Pulse Ox O2 Delivery O2 Flow Rate FiO2 05/18/18 21:21 90 114/61 05/18/18 21:00 Nasal Cannula 2.0 05/18/18 20:00 98.8 90 19 114/61 (78) 100 05/18/18 16:53 98.6 05/18/18 16:01 109 05/18/18 16:00 101.0 102 21 140/72 (94) 94 05/18/18 12:00 99.9 93 20 130/59 (82) 94 05/18/18 11:32 98 05/18/18 09:00 Nasal Cannula 2.0 05/18/18 08:13 87 05/18/18 08:00 100.4 90 22 117/56 (76) 97 05/18/18 04:00 99.1 76 24 125/58 (80) 100 05/18/18 04:00 78 05/18/18 00:00 98 05/18/18 00:00 101.2 94 21 104/49 (67) 100 05/17/18 23:03 100 110/57 Intake and Output 05/17/18 05/18/18 18:59 06:59 Intake Total 1060 ml 120 ml Balance 1060 ml 120 ml Intake Oral 240 ml 120 ml IV Total 820 ml # Voids 1 3 # Bowel Movements 1 1 Height (Feet): 4 Height (Inches): 10.00 Weight (Pounds): 181 Objective WDWN NCAT, crusted tissue around mouth supple CTA RRR abd soft, ND no edema non focal Mary Jewell MD May 18, 2018 22:38
--- NOTE | 2018-05-18 23:57 | Cardiology Progress Note ---
Assessment/Plan Assessment/Plan 1. Paroxysmal atrial fibrillation, due to CHADS-VASC score of 5, we require to keep anticoagulated, on metoprolol. 2. Hx of CAD, s/p CABG, ASA , atorvastatin and metoprolol. No wall motion abnormalities on Echo. LVEF ~55%. 3. Sinus tachycardia due to hypovolemia, resolved, continue metoprolol. 4. DKA, resolved. 5. DM, non-compliant with medications. 6. Hx of HTN, controlled with metoprolol. Subjective Subjective Sinus rhythm at rate of 90. Objective Last 24 Hour Vital Signs Date Time Temp Pulse Resp B/P (MAP) Pulse Ox O2 Delivery O2 Flow Rate FiO2 05/18/18 21:21 90 114/61 05/18/18 21:00 Nasal Cannula 2.0 05/18/18 20:00 98.8 90 19 114/61 (78) 100 05/18/18 20:00 Nasal Cannula 2.0 28 05/18/18 20:00 98 Nasal Cannula 2.0 28 05/18/18 20:00 90 18 Nasal Cannula 2.0 28 05/18/18 16:53 98.6 05/18/18 16:01 109 05/18/18 16:00 101.0 102 21 140/72 (94) 94 05/18/18 12:00 99.9 93 20 130/59 (82) 94 05/18/18 11:32 98 05/18/18 09:00 Nasal Cannula 2.0 05/18/18 08:13 87 05/18/18 08:00 100.4 90 22 117/56 (76) 97 05/18/18 04:00 99.1 76 24 125/58 (80) 100 05/18/18 04:00 78 05/18/18 00:00 98 05/18/18 00:00 101.2 94 21 104/49 (67) 100 Intake and Output 05/17/18 05/18/18 18:59 06:59 Intake Total 1060 ml 120 ml Balance 1060 ml 120 ml Intake Oral 240 ml 120 ml IV Total 820 ml # Voids 1 3 # Bowel Movements 1 1 2D Echo: EF55%,Mild LVH,Mod MR,Mild AR,RVSP 67 mmHg (severe PHT),Restrictive LV phys Microbiology Date/Time Source Procedure Growth Status 1/28/19 13:00 Urine,Clean Catch Urine Culture - Preliminary Resulted Objective HEENT: Normocephalic, atraumatic, Pupils equally reactive to light and accommodation, EOMI. NECK: No JVD, no carotid bruit. CARDIOVASCULAR: Regular rate and rhythm. No murmurs, gallops or rubs. LUNGS: Clear to auscultation bilaterally. No crackles or Rhonchi. ABDOMEN: Soft and nontender. No organomegaly, + BS. EXTREMITIES: No cyanosis, clubbing or edema. Miller Mckeon MD May 18, 2018 23:57
[2018-05-19] VITALS (7 sets, daily range): BP systolic 120–145; BP diastolic 47–77
--- NOTE | 2018-05-19 01:17 | NUR ---
NURSE NOTES: Patient is asleep but arousable by voice. Denies pain at this time. SR on manager cardiac. Will continue to monitor.
[2018-05-19] MEDS: NovoLOG Insulin Flexpen SUBQ SCH ×4 (06:23→20:58)
--- NOTE | 2018-05-19 07:29 | NUR ---
HAND-OFF: Report given to Opal BLACK. Patient is observed in bed, awake, alert, and able to make needs known. VSS. Endorsed plan of care.
--- NOTE | 2018-05-19 07:31 | NUR ---
NURSE NOTES: Received bedside report from Maribel BLACK. Pt. in bed, awake, a/o x 4. No sign of distress. On 4LPM via NC. Denies pain at present. IV at LFA #20g. in placed running NS at 100cc/hr. Pt. still noted with upper body rash all over. Denies itching. Bed in low position, locked. Call light within reach. Will cont. to monitor.
[2018-05-19] MEDS: Metoprolol 25mg tab ORAL SCH ×2 (09:02→20:52)
[2018-05-19] MEDS: Pantoprazole Inj IVP SCH (09:02)
[2018-05-19] MEDS: Enoxaparin 80mg Inj SUBQ SCH ×2 (09:03→20:59)
[2018-05-19 09:22] LABS: HEMATOCRIT 27.3 % (37.0-47.0); HEMOGLOBIN 8.9 G/DL (12.0-16.0); MEAN CORPUSCULAR VOLUME 81 FL (80-99); PLATELET COUNT 122 K/UL (150-450); RED BLOOD COUNT 3.36 M/UL (4.20-5.40); RED CELL DISTRIBUTION WIDTH 15.7 % (11.6-14.8); WHITE BLOOD COUNT 3.1 K/UL (4.8-10.8)
[2018-05-19 09:35] LABS: INR 1.1 (0.9-1.1)
[2018-05-19 09:43] LABS: ALANINE AMINOTRANSFERASE 202 U/L (12-78); ALBUMIN 1.8 G/DL (3.4-5.0); ALBUMIN/GLOBULIN RATIO 0.5 (1.0-2.7); ALKALINE PHOSPHATASE 538 U/L (46-116); ANION GAP 11 mmol/L (5-15); ASPARTATE AMINO TRANSFERASE 185 U/L (15-37); BLOOD UREA NITROGEN 26 mg/dL (7-18); CALCIUM 7.6 MG/DL (8.5-10.1); CARBON DIOXIDE 17 MMOL/L (21-32); CHLORIDE 104 MMOL/L (98-107); CREATININE 1.4 MG/DL (0.55-1.30); SODIUM 132 MMOL/L (136-145)
--- NOTE | 2018-05-19 11:04 | Infectious Diseases Prog Note ---
Assessment/Plan Assessment/Plan antibiotics : levoquin, micafungin, acyclovir A 1. pancreatitis 2. herpes of lip 3. diabetic ketoacidosis 4. increased LFT 5. fever improving 6. hypertension 7. fungal UTI 8. ? drug reaction improving P 1. continue acyclovir 8 more days 2. continue levoquin 3 more days 3. continue micafungin 4 more days 4. will follow up cultures Subjective Constitutional: Denies: fever, chills Respiratory: Denies: shortness of breath, dry cough Gastrointestinal/Abdominal: Denies: nausea, vomiting, diarrhea Musculoskeletal: Reports: pain Allergies: Coded Allergies: SHELLFISH DERIVED (Verified Allergy, Unknown, swelling and itchiness, 05/14) Objective Vital Signs Last 24 Hour Vital Signs Date Time Temp Pulse Resp B/P (MAP) Pulse Ox O2 Delivery O2 Flow Rate FiO2 05/19/18 09:02 89 122/51 05/19/18 08:05 Nasal Cannula 2.0 05/19/18 08:00 99 Nasal Cannula 2.0 28 05/19/18 08:00 89 24 Nasal Cannula 2.0 28 05/19/18 08:00 99.2 86 19 122/51 (74) 99 05/19/18 08:00 Nasal Cannula 2.0 28 05/19/18 07:55 84 05/19/18 04:00 99.5 87 19 122/77 (92) 100 05/19/18 03:47 82 05/19/18 01:29 99.0 76 19 124/50 (74) 100 05/19/18 00:00 75 05/18/18 23:22 75 05/18/18 21:21 90 114/61 05/18/18 21:00 Nasal Cannula 2.0 05/18/18 20:00 98.8 90 19 114/61 (78) 100 05/18/18 20:00 Nasal Cannula 2.0 28 05/18/18 20:00 98 Nasal Cannula 2.0 28 05/18/18 20:00 90 18 Nasal Cannula 2.0 28 05/18/18 19:33 85 05/18/18 16:53 98.6 05/18/18 16:01 109 05/18/18 16:00 101.0 102 21 140/72 (94) 94 05/18/18 12:00 99.9 93 20 130/59 (82) 94 05/18/18 11:32 98 Height (Feet): 4 Height (Inches): 10.00 Weight (Pounds): 180 HEENT: other - lips hyperpigmented Respiratory/Chest: lungs clear Cardiovascular: normal rate, regular rhythm, no gallop/murmur Abdomen: soft, non tender Extremities: other - + edema Skin: rash - decreasing Microbiology Date/Time Source Procedure Growth Status 05/17/18 13:00 Urine,Clean Catch Urine Culture - Final Rianna Albicans Complete Laboratory Tests Test 05/19/18 08:45 White Blood Count 3.1 K/UL (4.8-10.8) L Red Blood Count 3.36 M/UL (4.20-5.40) L Hemoglobin 8.9 G/DL (12.0-16.0) L Hematocrit 27.3 % (37.0-47.0) L Mean Corpuscular Volume 81 FL (80-99) Mean Corpuscular Hemoglobin 26.4 PG (27.0-31.0) L Mean Corpuscular Hemoglobin Concent 32.4 G/DL (32.0-36.0) Red Cell Distribution Width 15.7 % (11.6-14.8) H Platelet Count 122 K/UL (150-450) L Mean Platelet Volume 6.9 FL (6.5-10.1) Neutrophils (%) (Auto) % (45.0-75.0) Lymphocytes (%) (Auto) % (20.0-45.0) Monocytes (%) (Auto) % (1.0-10.0) Eosinophils (%) (Auto) % (0.0-3.0) Basophils (%) (Auto) % (0.0-2.0) Differential Total Cells Counted 100 Neutrophils % (Manual) 33 % (45-75) L Lymphocytes % (Manual) 56 % (20-45) H Monocytes % (Manual) 11 % (1-10) H Eosinophils % (Manual) 0 % (0-3) Basophils % (Manual) 0 % (0-2) Band Neutrophils 0 % (0-8) Platelet Estimate Decreased L Platelet Morphology Normal Hypochromasia 1+ Anisocytosis 1+ Prothrombin Time 11.4 SEC (9.30-11.50) Prothromb Time International Ratio 1.1 (0.9-1.1) Sodium Level 132 MMOL/L (136-145) L Potassium Level 5.0 MMOL/L (3.5-5.1) Chloride Level 104 MMOL/L (98-107) Carbon Dioxide Level 17 MMOL/L (21-32) L Anion Gap 11 mmol/L (5-15) Blood Urea Nitrogen 26 mg/dL (7-18) H Creatinine 1.4 MG/DL (0.55-1.30) H Estimat Glomerular Filtration Rate 37.2 mL/min (>60) Glucose Level 145 MG/DL (74-106) H Calcium Level 7.6 MG/DL (8.5-10.1) L Total Bilirubin 1.0 MG/DL (0.2-1.0) Aspartate Amino Transf (AST/SGOT) 185 U/L (15-37) H Alanine Aminotransferase (ALT/SGPT) 202 U/L (12-78) H Alkaline Phosphatase 538 U/L (46-116) H Total Protein 5.1 G/DL (6.4-8.2) L Albumin 1.8 G/DL (3.4-5.0) L Globulin 3.3 g/dL Albumin/Globulin Ratio 0.5 (1.0-2.7) L Current Medications Medications (Trade) Dose Ordered Sig/Ellen Route PRN Reason Start Time Stop Time Status Last Admin Dose Admin Acetaminophen (Tylenol) 650 mg Q4H PRN ORAL Mild Pain/Temp > 100.5 05/17/18 20:45 06/16/18 20:44 05/18/18 16:23 Acyclovir (Zovirax) 400 mg EVERY 8 HOURS ORAL 05/15/18 22:00 06/13/18 13:59 05/19/18 06:17 Al Hydroxide/Mg Hydroxide (Mylanta) 30 ml Q6H PRN ORAL Abdominal cramps 05/15/18 20:15 06/12/18 08:14 Albuterol Sulfate (Proventil) 2.5 mg Q4H PRN HHN Shortness of Breath 05/16/18 14:15 05/21/18 14:14 05/17/18 17:28 Dextrose (Dextrose 50%) 25 ml Q30M PRN IV Hypoglycemia 05/15/18 19:15 06/13/18 10:14 Dextrose (Dextrose 50%) 50 ml Q30M PRN IV Hypoglycemia 05/15/18 19:15 06/13/18 10:14 Enoxaparin Sodium (Lovenox) 80 mg EVERY 12 HOURS SUBQ 05/17/18 21:00 06/16/18 20:59 05/19/18 09:03 Insulin Aspart (NovoLOG) BEFORE MEALS AND HS SUBQ 05/15/18 21:00 06/13/18 11:29 05/18/18 21:34 Levofloxacin (Levaquin) 250 mg DAILY ORAL 05/18/18 09:00 05/25/18 08:59 05/19/18 09:02 Lorazepam (Ativan) 1 mg Q3H PRN ORAL For Anxiety 05/17/18 17:45 05/24/18 17:44 05/17/18 18:19 Magnesium Hydroxide (Mom) 30 ml DAILYPRN PRN ORAL Constipation 05/15/18 19:00 06/14/18 18:59 05/17/18 18:17 Metoprolol Tartrate (Lopressor) 25 mg Q12HR ORAL 05/15/18 21:00 06/14/18 17:59 05/19/18 09:02 Micafungin Sodium 100 mg/Sodium Chloride 110 ml @ 110 mls/hr Q24H IVPB 05/17/18 12:00 05/24/18 11:59 05/18/18 12:19 Pantoprazole (Protonix) 40 mg DAILY IVP 05/16/18 09:00 06/12/18 08:59 05/19/18 09:02 Sodium Chloride 1,000 ml @ 100 mls/hr Q10H IV 05/15/18 19:15 06/13/18 10:14 05/19/18 03:15 Khadra Melendez MD May 19, 2018 11:04
--- NOTE | 2018-05-19 11:26 | Pulmonology Progress Note ---
Assessment/Plan Assessment/Plan Pulmonary Progress Note Assessment/Plan Impression Diabetic ketoacidosis Anemia Transaminitis of unclear etiology Severe protein calorie malnutrition Evidence of pancreatitis, better Acute renal failure, improved Hyperglycemia Diabetes Hyponatremia Metabolic acidosis Hypercholesterolemia fever oral ulcers afib with RVR leukopenia monitor sugars cards noted Renal and GI evaluation ID evaluation heme noted Monitor liver enzymes and renal function; off statin check cultures and await ID clearance- abx change noted impression, plan, and exam edited and reviewed in detail care discussed with RN Subjective Allergies: Coded Allergies: SHELLFISH DERIVED (Verified Allergy, Unknown, swelling and itchiness, 05/14) Subjective tele afib leukopenia better fevers noted Objective Vital Signs Noted Laboratory Tests 05/17/18 08:20: White Blood Count 4.3#L, Red Blood Count 3.56L, Hemoglobin 9.2L, Hematocrit 29.2L, Mean Corpuscular Volume 82, Mean Corpuscular Hemoglobin 25.9L, Mean Corpuscular Hemoglobin Concent 31.6L, Red Cell Distribution Width 15.1H, Platelet Count 151, Mean Platelet Volume 7.2, Neutrophils (%) (Auto) 68.4, Lymphocytes (%) (Auto) 17.7L, Monocytes (%) (Auto) 11.9H, Eosinophils (%) (Auto ) 1.5, Basophils (%) (Auto) 0.6, Sodium Level 130L, Potassium Level 4.6, Chloride Level 101, Carbon Dioxide Level 15L, Anion Gap 14, Blood Urea Nitrogen 24H, Creatinine 1.7H, Estimat Glomerular Filtration Rate 29.7, Glucose Level 227H, Calcium Level 7.7L, Total Bilirubin 1.6H, Direct Bilirubin 1.2H, Aspartate Amino Transf (AST/SGOT) 114H, Alanine Aminotransferase (ALT/SGPT) 185H , Alkaline Phosphatase 459H, Total Protein 5.6L, Albumin 2.1L, Globulin 3.5, Albumin/Globulin Ratio 0.6L, HIV (1&2) Antibody Rapid Negative Height (Feet): 4 Height (Inches): 10.00 Weight (Pounds): 181 Objective WDWN NAD clear breath sounds bilaterally without rhonchi or wheeze S1S2 iRRR without MRG NABS nontender no HSM no CCE nonfocal oral ulcers better dry alert Subjective ROS Limited/Unobtainable: No Allergies: Coded Allergies: SHELLFISH DERIVED (Verified Allergy, Unknown, swelling and itchiness, 05/14) Objective Last 24 Hour Vital Signs Date Time Temp Pulse Resp B/P (MAP) Pulse Ox O2 Delivery O2 Flow Rate FiO2 05/19/18 09:02 89 122/51 05/19/18 08:05 Nasal Cannula 2.0 05/19/18 08:00 99 Nasal Cannula 2.0 28 05/19/18 08:00 89 24 Nasal Cannula 2.0 28 05/19/18 08:00 99.2 86 19 122/51 (74) 99 05/19/18 08:00 Nasal Cannula 2.0 28 05/19/18 07:55 84 05/19/18 04:00 99.5 87 19 122/77 (92) 100 05/19/18 03:47 82 05/19/18 01:29 99.0 76 19 124/50 (74) 100 05/19/18 00:00 75 05/18/18 23:22 75 05/18/18 21:21 90 114/61 05/18/18 21:00 Nasal Cannula 2.0 05/18/18 20:00 98.8 90 19 114/61 (78) 100 05/18/18 20:00 Nasal Cannula 2.0 28 05/18/18 20:00 98 Nasal Cannula 2.0 28 05/18/18 20:00 90 18 Nasal Cannula 2.0 28 05/18/18 19:33 85 05/18/18 16:53 98.6 05/18/18 16:01 109 05/18/18 16:00 101.0 102 21 140/72 (94) 94 05/18/18 12:00 99.9 93 20 130/59 (82) 94 05/18/18 11:32 98 Intake and Output 05/18/18 05/19/18 19:00 07:00 Intake Total 260 ml 1360 ml Output Total 400 ml 400 ml Balance -140 ml 960 ml Intake Oral 260 ml 260 ml IV Total 1100 ml Output Urine Total 400 ml 400 ml # Bowel Movements 1 Microbiology Date/Time Source Procedure Growth Status 05/17/18 13:00 Urine,Clean Catch Urine Culture - Final Rianna Albicans Complete Laboratory Tests 05/19/18 08:45: White Blood Count 3.1L, Red Blood Count 3.36L, Hemoglobin 8.9L, Hematocrit 27.3L , Mean Corpuscular Volume 81, Mean Corpuscular Hemoglobin 26.4L, Mean Corpuscular Hemoglobin Concent 32.4, Red Cell Distribution Width 15.7H, Platelet Count 122L, Mean Platelet Volume 6.9, Neutrophils (%) (Auto) , Lymphocytes (%) (Auto) , Monocytes (%) (Auto) , Eosinophils (%) (Auto) , Basophils (%) (Auto) , Differential Total Cells Counted 100, Neutrophils % ( Manual) 33L, Lymphocytes % (Manual) 56H, Monocytes % (Manual) 11H, Eosinophils % (Manual) 0, Basophils % (Manual) 0, Band Neutrophils 0, Platelet Estimate DecreasedL, Platelet Morphology Normal, Hypochromasia 1+, Anisocytosis 1+, Prothrombin Time 11.4, Prothromb Time International Ratio 1.1, Sodium Level 132L , Potassium Level 5.0, Chloride Level 104, Carbon Dioxide Level 17L, Anion Gap 11, Blood Urea Nitrogen 26H, Creatinine 1.4H, Estimat Glomerular Filtration Rate 37.2, Glucose Level 145H, Calcium Level 7.6L, Total Bilirubin 1.0, Aspartate Amino Transf (AST/SGOT) 185H, Alanine Aminotransferase (ALT/SGPT) 202H , Alkaline Phosphatase 538H, Total Protein 5.1L, Albumin 1.8L, Globulin 3.3, Albumin/Globulin Ratio 0.5L Current Medications Medications (Trade) Dose Ordered Sig/Ellen Route PRN Reason Start Time Stop Time Status Last Admin Dose Admin Acetaminophen (Tylenol) 650 mg Q4H PRN ORAL Mild Pain/Temp > 100.5 05/17/18 20:45 06/16/18 20:44 05/18/18 16:23 Acyclovir (Zovirax) 800 mg EVERY 8 HOURS ORAL 05/19/18 14:00 06/18/18 13:59 Al Hydroxide/Mg Hydroxide (Mylanta) 30 ml Q6H PRN ORAL Abdominal cramps 05/15/18 20:15 06/12/18 08:14 Albuterol Sulfate (Proventil) 2.5 mg Q4H PRN HHN Shortness of Breath 05/16/18 14:15 05/21/18 14:14 05/17/18 17:28 Dextrose (Dextrose 50%) 25 ml Q30M PRN IV Hypoglycemia 05/15/18 19:15 06/13/18 10:14 Dextrose (Dextrose 50%) 50 ml Q30M PRN IV Hypoglycemia 05/15/18 19:15 06/13/18 10:14 Enoxaparin Sodium (Lovenox) 80 mg EVERY 12 HOURS SUBQ 05/17/18 21:00 06/16/18 20:59 05/19/18 09:03 Insulin Aspart (NovoLOG) BEFORE MEALS AND HS SUBQ 05/15/18 21:00 06/13/18 11:29 05/18/18 21:34 Levofloxacin (Levaquin) 250 mg DAILY ORAL 05/18/18 09:00 05/25/18 08:59 05/19/18 09:02 Lorazepam (Ativan) 1 mg Q3H PRN ORAL For Anxiety 05/17/18 17:45 05/24/18 17:44 05/17/18 18:19 Magnesium Hydroxide (Mom) 30 ml DAILYPRN PRN ORAL Constipation 05/15/18 19:00 06/14/18 18:59 05/17/18 18:17 Metoprolol Tartrate (Lopressor) 25 mg Q12HR ORAL 05/15/18 21:00 06/14/18 17:59 05/19/18 09:02 Micafungin Sodium 100 mg/Sodium Chloride 110 ml @ 110 mls/hr Q24H IVPB 05/17/18 12:00 05/24/18 11:59 05/18/18 12:19 Pantoprazole (Protonix) 40 mg DAILY IVP 05/16/18 09:00 06/12/18 08:59 05/19/18 09:02 Sodium Chloride 1,000 ml @ 100 mls/hr Q10H IV 05/15/18 19:15 06/13/18 10:14 05/19/18 03:15 Gulshan Landry MD May 19, 2018 11:26
[2018-05-19] MEDS: Micafungin 100 MG in NS 110 ML IVPB SCH (12:09)
--- NOTE | 2018-05-19 13:38 | General Progress Note ---
Assessment/Plan Assessment/Plan Assessment and Recs # Pancytopenia -- appears that initial hep and hiv are negative though final results to follow, liver shows no major hsm or cirrhosis, may consider meds or bone marrow process, smear reviewed --> this pancytopenia is acute in onset, over last several days, thus most likely abx v antifungal related --> query meds, review with ID, is on micafungin now, monitor counts closely --> if no other cause and/or worsens, may consider flow cytometry or a bone marrow biopsy --> nepogen 300mcg sq to maintain anc >1500 # Anemia of chronic disease - monitor anemia panel --> hemolysis does not appear to be the case --> anemia panel reviewed # Paroxysmal atrial fibrillation, due to CHADS-VASC score of 5, we require to keep anticoagulated, on metoprolol --> continue on apixaban # Hx of CAD, s/p CABG, ASA , atorvastatin and metoprolol. No wall motion abnormalities on Echo. LVEF ~55%. --> appreciate cards recs # Sinus tachycardia due to hypovolemia, resolved. # DKA, resolved. # DM, non-compliant with medications. # Hx of HTN, controlled with metoprolol. # pancreatitis # increased LFT The timing of this note does not necessarily reflect the time of the patient was seen Greatly appreciate consultation! Subjective Allergies: Coded Allergies: SHELLFISH DERIVED (Verified Allergy, Unknown, swelling and itchiness, 05/14) Subjective 05/18: Pt is awake and comfortable, no events, leukopenia improved, wbc 4.3, plt 151 05/19: seen by bedside, awake, comfortable, plt 122 Objective Last 24 Hour Vital Signs Date Time Temp Pulse Resp B/P (MAP) Pulse Ox O2 Delivery O2 Flow Rate FiO2 05/19/18 12:00 99.3 77 20 130/55 (80) 99 05/19/18 11:33 74 05/19/18 09:02 89 122/51 05/19/18 08:05 Nasal Cannula 2.0 05/19/18 08:00 99 Nasal Cannula 2.0 28 05/19/18 08:00 89 24 Nasal Cannula 2.0 28 05/19/18 08:00 99.2 86 19 122/51 (74) 99 05/19/18 08:00 Nasal Cannula 2.0 28 05/19/18 07:55 84 05/19/18 04:00 99.5 87 19 122/77 (92) 100 05/19/18 03:47 82 05/19/18 01:29 99.0 76 19 124/50 (74) 100 05/19/18 00:00 75 05/18/18 23:22 75 05/18/18 21:21 90 114/61 05/18/18 21:00 Nasal Cannula 2.0 05/18/18 20:00 98.8 90 19 114/61 (78) 100 05/18/18 20:00 Nasal Cannula 2.0 28 05/18/18 20:00 98 Nasal Cannula 2.0 28 05/18/18 20:00 90 18 Nasal Cannula 2.0 28 05/18/18 19:33 85 05/18/18 16:53 98.6 05/18/18 16:01 109 05/18/18 16:00 101.0 102 21 140/72 (94) 94 Intake and Output 05/18/18 05/19/18 19:00 07:00 Intake Total 260 ml 1360 ml Output Total 400 ml 400 ml Balance -140 ml 960 ml Intake Oral 260 ml 260 ml IV Total 1100 ml Output Urine Total 400 ml 400 ml # Bowel Movements 1 Laboratory Tests 05/19/18 08:45: White Blood Count 3.1L, Red Blood Count 3.36L, Hemoglobin 8.9L, Hematocrit 27.3L , Mean Corpuscular Volume 81, Mean Corpuscular Hemoglobin 26.4L, Mean Corpuscular Hemoglobin Concent 32.4, Red Cell Distribution Width 15.7H, Platelet Count 122L, Mean Platelet Volume 6.9, Neutrophils (%) (Auto) , Lymphocytes (%) (Auto) , Monocytes (%) (Auto) , Eosinophils (%) (Auto) , Basophils (%) (Auto) , Differential Total Cells Counted 100, Neutrophils % ( Manual) 33L, Lymphocytes % (Manual) 56H, Monocytes % (Manual) 11H, Eosinophils % (Manual) 0, Basophils % (Manual) 0, Band Neutrophils 0, Platelet Estimate DecreasedL, Platelet Morphology Normal, Hypochromasia 1+, Anisocytosis 1+, Prothrombin Time 11.4, Prothromb Time International Ratio 1.1, Sodium Level 132L , Potassium Level 5.0, Chloride Level 104, Carbon Dioxide Level 17L, Anion Gap 11, Blood Urea Nitrogen 26H, Creatinine 1.4H, Estimat Glomerular Filtration Rate 37.2, Glucose Level 145H, Calcium Level 7.6L, Total Bilirubin 1.0, Aspartate Amino Transf (AST/SGOT) 185H, Alanine Aminotransferase (ALT/SGPT) 202H , Alkaline Phosphatase 538H, Total Protein 5.1L, Albumin 1.8L, Globulin 3.3, Albumin/Globulin Ratio 0.5L Height (Feet): 4 Height (Inches): 10.00 Weight (Pounds): 180 Objective PHYSICAL EXAMINATION: GENERAL: Pleasant [place] woman seen in the ICU. HEENT: Normocephalic and atraumatic. Sclerae anicteric. Oropharynx clear. NECK: Supple. CHEST: Clear to auscultation. CARDIOVASCULAR: Revealed regular rate. ABDOMEN: Soft. Good bowel sounds. There is no organomegaly or tenderness. Anterior chest and abdomen scars were as expected. EXTREMITIES: Revealed no edema. Armando Bowen MD May 19, 2018 13:38
--- NOTE | 2018-05-19 14:37 | NUR ---
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 99.2 HR 86 RR 19 B/P 122/51 WBC 3.1 NA 132 BUN 26 CR 1.4 AST 185 ALT 202 ALK PHOS 538 IS: MICAFUNGIN IV IVF NS @ 100ML/HR LEVAQUIN PO PROTONIX IV ZOVIRAX IV MED/SURG STATUS
--- NOTE | 2018-05-19 15:35 | NUR ---
*-* INSURANCE *-* CLINICALS FAXED TO: [id number] F:[phone]
--- NOTE | 2018-05-19 17:45 | General Progress Note ---
Assessment/Plan Assessment/Plan Assessment - DKA - Abnormal LFT - now progressive transaminitis, normal bili - Urolithiasis - Cholelithiasis, doubt CBD obstruction with normal bili - DM - CAD/CABG - Gout Recommendations - follow LFT - po as tolerated - check CMV, HSV, EBV serology - doubt ERCP helpful with normal Bili Subjective Allergies: Coded Allergies: SHELLFISH DERIVED (Verified Allergy, Unknown, swelling and itchiness, 05/14) Subjective Feels same denies abd pain MRI noted - negative but distal CBD not seen Bili now normal low grade temp noted Objective Last 24 Hour Vital Signs Date Time Temp Pulse Resp B/P (MAP) Pulse Ox O2 Delivery O2 Flow Rate FiO2 05/19/18 15:54 100.6 86 21 145/67 (93) 94 05/19/18 15:14 83 05/19/18 12:00 99.3 77 20 130/55 (80) 99 05/19/18 11:33 74 05/19/18 09:02 89 122/51 05/19/18 08:05 Nasal Cannula 2.0 05/19/18 08:00 99 Nasal Cannula 2.0 28 05/19/18 08:00 89 24 Nasal Cannula 2.0 28 05/19/18 08:00 99.2 86 19 122/51 (74) 99 05/19/18 08:00 Nasal Cannula 2.0 28 05/19/18 07:55 84 05/19/18 04:00 99.5 87 19 122/77 (92) 100 05/19/18 03:47 82 05/19/18 01:29 99.0 76 19 124/50 (74) 100 05/19/18 00:00 75 05/18/18 23:22 75 05/18/18 21:21 90 114/61 05/18/18 21:00 Nasal Cannula 2.0 05/18/18 20:00 98.8 90 19 114/61 (78) 100 05/18/18 20:00 Nasal Cannula 2.0 28 05/18/18 20:00 98 Nasal Cannula 2.0 28 05/18/18 20:00 90 18 Nasal Cannula 2.0 28 05/18/18 19:33 85 Intake and Output 05/18/18 05/19/18 19:00 07:00 Intake Total 260 ml 1360 ml Output Total 400 ml 400 ml Balance -140 ml 960 ml Intake Oral 260 ml 260 ml IV Total 1100 ml Output Urine Total 400 ml 400 ml # Bowel Movements 1 Laboratory Tests 05/19/18 08:45: White Blood Count 3.1L, Red Blood Count 3.36L, Hemoglobin 8.9L, Hematocrit 27.3L , Mean Corpuscular Volume 81, Mean Corpuscular Hemoglobin 26.4L, Mean Corpuscular Hemoglobin Concent 32.4, Red Cell Distribution Width 15.7H, Platelet Count 122L, Mean Platelet Volume 6.9, Neutrophils (%) (Auto) , Lymphocytes (%) (Auto) , Monocytes (%) (Auto) , Eosinophils (%) (Auto) , Basophils (%) (Auto) , Differential Total Cells Counted 100, Neutrophils % ( Manual) 33L, Lymphocytes % (Manual) 56H, Monocytes % (Manual) 11H, Eosinophils % (Manual) 0, Basophils % (Manual) 0, Band Neutrophils 0, Platelet Estimate DecreasedL, Platelet Morphology Normal, Hypochromasia 1+, Anisocytosis 1+, Prothrombin Time 11.4, Prothromb Time International Ratio 1.1, Sodium Level 132L , Potassium Level 5.0, Chloride Level 104, Carbon Dioxide Level 17L, Anion Gap 11, Blood Urea Nitrogen 26H, Creatinine 1.4H, Estimat Glomerular Filtration Rate 37.2, Glucose Level 145H, Calcium Level 7.6L, Total Bilirubin 1.0, Aspartate Amino Transf (AST/SGOT) 185H, Alanine Aminotransferase (ALT/SGPT) 202H , Alkaline Phosphatase 538H, Total Protein 5.1L, Albumin 1.8L, Globulin 3.3, Albumin/Globulin Ratio 0.5L Height (Feet): 4 Height (Inches): 10.00 Weight (Pounds): 180 Objective WDWN NCAT, crusted tissue around mouth supple CTA RRR abd soft, ND no edema non focal Mary Jewell MD May 19, 2018 17:45
--- NOTE | 2018-05-19 20:02 | NUR ---
HAND-OFF: Report given to Jonathan BLACK. Pt. remain stable.
--- NOTE | 2018-05-19 20:03 | NUR ---
NURSE NOTES: Got report from Jerel RN. Pt in stable condition. Denies any pain. No s/s of distress or discomfort noted. Pt resting in bed comfortably. Bed in low and locked position, call light within reach, bedside table within reach. Continue to monitor.
--- NOTE | 2018-05-19 22:45 | Cardiology Progress Note ---
Assessment/Plan Assessment/Plan 1. Paroxysmal atrial fibrillation, due to CHADS-VASC score of 5, we require to keep anticoagulated, on metoprolol. 2. Hx of CAD, s/p CABG, ASA , atorvastatin and metoprolol. No wall motion abnormalities on Echo. LVEF ~55%. 3. Sinus tachycardia, resolved, due to hypovolemia. 4. DKA, resolved. 5. DM, non-compliant with medications. 6. Hx of HTN, controlled with metoprolol. Subjective Subjective Sinus rhythm at rate of 80. Objective Last 24 Hour Vital Signs Date Time Temp Pulse Resp B/P (MAP) Pulse Ox O2 Delivery O2 Flow Rate FiO2 05/19/18 21:00 Nasal Cannula 2.0 05/19/18 20:52 80 120/47 05/19/18 20:00 99.0 80 18 120/47 (71) 100 05/19/18 20:00 81 05/19/18 19:52 79 21 Nasal Cannula 3.0 32 05/19/18 19:52 Nasal Cannula 3.0 32 05/19/18 19:52 100 Nasal Cannula 3.0 32 05/19/18 16:33 99.3 05/19/18 15:54 100.6 86 21 145/67 (93) 94 05/19/18 15:14 83 05/19/18 12:00 99.3 77 20 130/55 (80) 99 05/19/18 11:33 74 05/19/18 09:02 89 122/51 05/19/18 08:05 Nasal Cannula 2.0 05/19/18 08:00 99 Nasal Cannula 2.0 28 05/19/18 08:00 89 24 Nasal Cannula 2.0 28 05/19/18 08:00 99.2 86 19 122/51 (74) 99 05/19/18 08:00 Nasal Cannula 2.0 28 05/19/18 07:55 84 05/19/18 04:00 99.5 87 19 122/77 (92) 100 05/19/18 03:47 82 05/19/18 01:29 99.0 76 19 124/50 (74) 100 05/19/18 00:00 75 05/18/18 23:22 75 Intake and Output 05/18/18 05/19/18 18:59 06:59 Intake Total 260 ml 1360 ml Output Total 400 ml 400 ml Balance -140 ml 960 ml Intake Oral 260 ml 260 ml IV Total 1100 ml Output Urine Total 400 ml 400 ml # Bowel Movements 1 2D Echo: EF55%,Mild LVH,Mod MR,Mild AR,RVSP 67 mmHg (severe PHT),Restrictive LV phys Laboratory Tests Test 05/19/18 08:45 05/19/18 19:20 White Blood Count 3.1 K/UL (4.8-10.8) L Red Blood Count 3.36 M/UL (4.20-5.40) L Hemoglobin 8.9 G/DL (12.0-16.0) L Hematocrit 27.3 % (37.0-47.0) L Mean Corpuscular Volume 81 FL (80-99) Mean Corpuscular Hemoglobin 26.4 PG (27.0-31.0) L Mean Corpuscular Hemoglobin Concent 32.4 G/DL (32.0-36.0) Red Cell Distribution Width 15.7 % (11.6-14.8) H Platelet Count 122 K/UL (150-450) L Mean Platelet Volume 6.9 FL (6.5-10.1) Neutrophils (%) (Auto) % (45.0-75.0) Lymphocytes (%) (Auto) % (20.0-45.0) Monocytes (%) (Auto) % (1.0-10.0) Eosinophils (%) (Auto) % (0.0-3.0) Basophils (%) (Auto) % (0.0-2.0) Differential Total Cells Counted 100 Neutrophils % (Manual) 33 % (45-75) L Lymphocytes % (Manual) 56 % (20-45) H Monocytes % (Manual) 11 % (1-10) H Eosinophils % (Manual) 0 % (0-3) Basophils % (Manual) 0 % (0-2) Band Neutrophils 0 % (0-8) Platelet Estimate Decreased L Platelet Morphology Normal Hypochromasia 1+ Anisocytosis 1+ Prothrombin Time 11.4 SEC (9.30-11.50) Prothromb Time International Ratio 1.1 (0.9-1.1) Sodium Level 132 MMOL/L (136-145) L Potassium Level 5.0 MMOL/L (3.5-5.1) Chloride Level 104 MMOL/L (98-107) Carbon Dioxide Level 17 MMOL/L (21-32) L Anion Gap 11 mmol/L (5-15) Blood Urea Nitrogen 26 mg/dL (7-18) H Creatinine 1.4 MG/DL (0.55-1.30) H Estimat Glomerular Filtration Rate 37.2 mL/min (>60) Glucose Level 145 MG/DL (74-106) H Calcium Level 7.6 MG/DL (8.5-10.1) L Total Bilirubin 1.0 MG/DL (0.2-1.0) Aspartate Amino Transf (AST/SGOT) 185 U/L (15-37) H Alanine Aminotransferase (ALT/SGPT) 202 U/L (12-78) H Alkaline Phosphatase 538 U/L (46-116) H Total Protein 5.1 G/DL (6.4-8.2) L Albumin 1.8 G/DL (3.4-5.0) L Globulin 3.3 g/dL Albumin/Globulin Ratio 0.5 (1.0-2.7) L Anti-Nuclear Antibody Screen Pending Herpes Simplex Virus I IgM Ab (IFA) Pending Herpes Simplex Virus II IgM Ab (IFA Pending Monoscreen Pending Microbiology Date/Time Source Procedure Growth Status 05/17/18 13:00 Urine,Clean Catch Urine Culture - Final Rianna Albicans Complete Objective HEENT: Normocephalic, atraumatic, Pupils equally reactive to light and accommodation, EOMI. NECK: No JVD, no carotid bruit. CARDIOVASCULAR: Regular rate and rhythm. No murmurs, gallops or rubs. LUNGS: Clear to auscultation bilaterally. No crackles or Rhonchi. ABDOMEN: Soft and nontender. No organomegaly, + BS. EXTREMITIES: No cyanosis, clubbing or edema. Miller Mckeon MD May 19, 2018 22:45
[2018-05-20] VITALS: BP 141/65
[2018-05-20 04:17] VITALS: BP 131/61
[2018-05-20] MEDS: NovoLOG Insulin Flexpen SUBQ SCH ×4 (06:01→23:16)
--- NOTE | 2018-05-20 07:15 | NUR ---
HAND-OFF: Report given to Lizzie BLACK. endorsed plan of care.
--- NOTE | 2018-05-20 07:16 | NUR ---
NURSE NOTES: Received report from WAYNE Castillo. Patient is resting in bed, sleeping. No signs and symptoms of acute distress at this time. Patient is in 4 lit Nasal Cannula. IV running at prescribed rate, IV site asymptomatic, patent, intact. Bed in lowest position, side rails up x2, call light and bed side table within reach. Will continue to monitor and follow the plan of care.
[2018-05-20 08:00] VITALS: BP 142/68
[2018-05-20 08:08] LABS: ALANINE AMINOTRANSFERASE 236 U/L (12-78); ALBUMIN 1.9 G/DL (3.4-5.0); ALBUMIN/GLOBULIN RATIO 0.5 (1.0-2.7); ALKALINE PHOSPHATASE 638 U/L (46-116); ANION GAP 12 mmol/L (5-15); ASPARTATE AMINO TRANSFERASE 203 U/L (15-37); BILIRUBIN,TOTAL 1.1 MG/DL (0.2-1.0); BLOOD UREA NITROGEN 24 mg/dL (7-18); CALCIUM 7.8 MG/DL (8.5-10.1); CARBON DIOXIDE 17 MMOL/L (21-32); CHLORIDE 105 MMOL/L (98-107); CREATININE 1.3 MG/DL (0.55-1.30); POTASSIUM 5.4 MMOL/L (3.5-5.1); SODIUM 134 MMOL/L (136-145)
[2018-05-20 08:09] LABS: BILIRUBIN,DIRECT 0.8 MG/DL (0.0-0.3)
--- NOTE | 2018-05-20 08:23 | General Progress Note ---
Assessment/Plan Assessment/Plan Assessment - DKA - Abnormal LFT - CMV/HSV/EBV titers pending, EZRA (-) - Urolithiasis - Cholelithiasis, doubt CBD obstruction with normal or near normal bili - DM - CAD/CABG - Gout Recommendations - follow LFT - po as tolerated - f/u CMV, HSV, EBV serology - doubt ERCP helpful with normal Bili Subjective Allergies: Coded Allergies: SHELLFISH DERIVED (Verified Allergy, Unknown, swelling and itchiness, 05/14) Subjective Feels same c/o painful lips no abd pain Objective Last 24 Hour Vital Signs Date Time Temp Pulse Resp B/P (MAP) Pulse Ox O2 Delivery O2 Flow Rate FiO2 05/20/18 04:38 77 05/20/18 04:17 99.2 80 18 131/61 (84) 100 05/20/18 00:00 73 05/20/18 00:00 99.0 78 18 141/65 (90) 100 05/19/18 21:00 Nasal Cannula 2.0 05/19/18 20:52 80 120/47 05/19/18 20:00 99.0 80 18 120/47 (71) 100 05/19/18 20:00 81 05/19/18 19:52 79 21 Nasal Cannula 3.0 32 05/19/18 19:52 Nasal Cannula 3.0 32 05/19/18 19:52 100 Nasal Cannula 3.0 32 05/19/18 16:33 99.3 05/19/18 15:54 100.6 86 21 145/67 (93) 94 05/19/18 15:14 83 05/19/18 12:00 99.3 77 20 130/55 (80) 99 05/19/18 11:33 74 05/19/18 09:02 89 122/51 Intake and Output 05/19/18 05/20/18 19:00 07:00 Intake Total 1000 ml Output Total 400 ml Balance 600 ml Intake Oral 1000 ml Output Urine Total 400 ml Laboratory Tests 05/19/18 08:45: White Blood Count 3.1L, Red Blood Count 3.36L, Hemoglobin 8.9L, Hematocrit 27.3L , Mean Corpuscular Volume 81, Mean Corpuscular Hemoglobin 26.4L, Mean Corpuscular Hemoglobin Concent 32.4, Red Cell Distribution Width 15.7H, Platelet Count 122L, Mean Platelet Volume 6.9, Neutrophils (%) (Auto) , Lymphocytes (%) (Auto) , Monocytes (%) (Auto) , Eosinophils (%) (Auto) , Basophils (%) (Auto) , Differential Total Cells Counted 100, Neutrophils % ( Manual) 33L, Lymphocytes % (Manual) 56H, Monocytes % (Manual) 11H, Eosinophils % (Manual) 0, Basophils % (Manual) 0, Band Neutrophils 0, Platelet Estimate DecreasedL, Platelet Morphology Normal, Hypochromasia 1+, Anisocytosis 1+, Prothrombin Time 11.4, Prothromb Time International Ratio 1.1, Sodium Level 132L , Potassium Level 5.0, Chloride Level 104, Carbon Dioxide Level 17L, Anion Gap 11, Blood Urea Nitrogen 26H, Creatinine 1.4H, Estimat Glomerular Filtration Rate 37.2, Glucose Level 145H, Calcium Level 7.6L, Total Bilirubin 1.0, Aspartate Amino Transf (AST/SGOT) 185H, Alanine Aminotransferase (ALT/SGPT) 202H , Alkaline Phosphatase 538H, Total Protein 5.1L, Albumin 1.8L, Globulin 3.3, Albumin/Globulin Ratio 0.5L 05/19/18 19:20: Anti-Nuclear Antibody Screen [Pending], Herpes Simplex Virus I IgM Ab (IFA) [ Pending], Herpes Simplex Virus II IgM Ab (IFA [Pending], Monoscreen [Pending] 05/20/18 07:10: Sodium Level 134L, Potassium Level 5.4H, Chloride Level 105, Carbon Dioxide Level 17L, Anion Gap 12, Blood Urea Nitrogen 24H, Creatinine 1.3, Estimat Glomerular Filtration Rate 40.5, Glucose Level 112H, Calcium Level 7.8L, Total Bilirubin 1.1H, Aspartate Amino Transf (AST/SGOT) 203H, Alanine Aminotransferase (ALT/SGPT) 236H, Alkaline Phosphatase 638H, Total Protein 5.5L , Albumin 1.9L, Globulin 3.6, Albumin/Globulin Ratio 0.5L, Direct Bilirubin 0.8H Height (Feet): 4 Height (Inches): 10.00 Weight (Pounds): 180 Objective WDWN NCAT, crusted tissue around mouth supple CTA RRR abd soft, ND no edema non focal Mary Jewell MD May 20, 2018 08:23
[2018-05-20] MEDS: Pantoprazole Inj IVP SCH (10:01)
[2018-05-20] MEDS: Metoprolol 25mg tab ORAL SCH ×2 (10:02→22:53)
[2018-05-20] MEDS: Enoxaparin 80mg Inj SUBQ SCH ×2 (10:07→22:55)
--- NOTE | 2018-05-20 10:33 | Infectious Diseases Prog Note ---
Assessment/Plan Assessment/Plan A 1. pancreatitis 2. herpes of lip , ? Cellulitis 3. diabetic ketoacidosis 4. increased LFT 5. fever 6. hypertension 7. Pancytopenia 10. Fungal UTI P 1. continue acyclovir 7 more days 2. continue Levaquin 2 more days 3. continue micafungin 3 more days 4. wound culture from Lips 5. add PO Doxycycline Subjective ROS Limited/Unobtainable: No Constitutional: Reports: fever, other - yesterday HEENT: Reports: other - pain & swelling of lops Gastrointestinal/Abdominal: Reports: no symptoms Genitourinary: Reports: no symptoms Allergies: Coded Allergies: SHELLFISH DERIVED (Verified Allergy, Unknown, swelling and itchiness, 05/14) Objective Vital Signs Last 24 Hour Vital Signs Date Time Temp Pulse Resp B/P (MAP) Pulse Ox O2 Delivery O2 Flow Rate FiO2 05/20/18 10:02 87 142/68 05/20/18 08:32 100 Nasal Cannula 2.0 28 05/20/18 08:32 87 20 Nasal Cannula 2.0 28 05/20/18 08:32 Nasal Cannula 3.0 32 05/20/18 04:38 77 05/20/18 04:17 99.2 80 18 131/61 (84) 100 05/20/18 00:00 73 05/20/18 00:00 99.0 78 18 141/65 (90) 100 05/19/18 21:00 Nasal Cannula 2.0 05/19/18 20:52 80 120/47 05/19/18 20:00 99.0 80 18 120/47 (71) 100 05/19/18 20:00 81 05/19/18 19:52 79 21 Nasal Cannula 3.0 32 05/19/18 19:52 Nasal Cannula 3.0 32 05/19/18 19:52 100 Nasal Cannula 3.0 32 05/19/18 16:33 99.3 05/19/18 15:54 100.6 86 21 145/67 (93) 94 05/19/18 15:14 83 05/19/18 12:00 99.3 77 20 130/55 (80) 99 05/19/18 11:33 74 Height (Feet): 4 Height (Inches): 10.00 Weight (Pounds): 180 General Appearance: no acute distress HEENT: other - hemorrhagic blisters of lips Respiratory/Chest: lungs clear Cardiovascular: normal rate Abdomen: soft, non tender Extremities: no edema Neurologic/Psychiatric: alert, oriented x 3, responsive Microbiology Date/Time Source Procedure Growth Status 05/17/18 13:00 Urine,Clean Catch Urine Culture - Final Rianna Albicans Complete Laboratory Tests Test 05/19/18 19:20 05/20/18 07:10 Anti-Nuclear Antibody Screen Pending Herpes Simplex Virus I IgM Ab (IFA) Pending Herpes Simplex Virus II IgM Ab (IFA Pending Monoscreen Pending Sodium Level 134 MMOL/L (136-145) L Potassium Level 5.4 MMOL/L (3.5-5.1) H Chloride Level 105 MMOL/L (98-107) Carbon Dioxide Level 17 MMOL/L (21-32) L Anion Gap 12 mmol/L (5-15) Blood Urea Nitrogen 24 mg/dL (7-18) H Creatinine 1.3 MG/DL (0.55-1.30) Estimat Glomerular Filtration Rate 40.5 mL/min (>60) Glucose Level 112 MG/DL (74-106) H Calcium Level 7.8 MG/DL (8.5-10.1) L Total Bilirubin 1.1 MG/DL (0.2-1.0) H Direct Bilirubin 0.8 MG/DL (0.0-0.3) H Aspartate Amino Transf (AST/SGOT) 203 U/L (15-37) H Alanine Aminotransferase (ALT/SGPT) 236 U/L (12-78) H Alkaline Phosphatase 638 U/L (46-116) H Total Protein 5.5 G/DL (6.4-8.2) L Albumin 1.9 G/DL (3.4-5.0) L Globulin 3.6 g/dL Albumin/Globulin Ratio 0.5 (1.0-2.7) L Cytomegalovirus DNA PCR copies/ml Pending Cytomegalovirus DNA PCR log10 Pending Current Medications Medications (Trade) Dose Ordered Sig/Ellen Route PRN Reason Start Time Stop Time Status Last Admin Dose Admin Acetaminophen (Tylenol) 650 mg Q4H PRN ORAL Mild Pain/Temp > 100.5 05/17/18 20:45 06/16/18 20:44 05/19/18 16:03 Acyclovir (Zovirax) 800 mg EVERY 8 HOURS ORAL 05/19/18 14:00 06/18/18 13:59 05/20/18 05:51 Al Hydroxide/Mg Hydroxide (Mylanta) 30 ml Q6H PRN ORAL Abdominal cramps 05/15/18 20:15 06/12/18 08:14 Albuterol Sulfate (Proventil) 2.5 mg Q4H PRN HHN Shortness of Breath 05/16/18 14:15 05/21/18 14:14 05/17/18 17:28 Dextrose (Dextrose 50%) 25 ml Q30M PRN IV Hypoglycemia 05/15/18 19:15 06/13/18 10:14 Dextrose (Dextrose 50%) 50 ml Q30M PRN IV Hypoglycemia 05/15/18 19:15 06/13/18 10:14 Enoxaparin Sodium (Lovenox) 80 mg EVERY 12 HOURS SUBQ 05/17/18 21:00 06/16/18 20:59 05/20/18 10:07 Insulin Aspart (NovoLOG) BEFORE MEALS AND HS SUBQ 05/15/18 21:00 06/13/18 11:29 05/19/18 12:12 Levofloxacin (Levaquin) 250 mg DAILY ORAL 05/18/18 09:00 05/25/18 08:59 05/20/18 10:01 Lorazepam (Ativan) 1 mg Q3H PRN ORAL For Anxiety 05/17/18 17:45 05/24/18 17:44 05/17/18 18:19 Magnesium Hydroxide (Mom) 30 ml DAILYPRN PRN ORAL Constipation 05/15/18 19:00 06/14/18 18:59 05/17/18 18:17 Metoprolol Tartrate (Lopressor) 25 mg Q12HR ORAL 05/15/18 21:00 06/14/18 17:59 05/20/18 10:02 Micafungin Sodium 100 mg/Sodium Chloride 110 ml @ 110 mls/hr Q24H IVPB 05/17/18 12:00 05/24/18 11:59 05/19/18 12:09 Pantoprazole (Protonix) 40 mg DAILY IVP 05/16/18 09:00 06/12/18 08:59 05/20/18 10:01 Sodium Chloride 1,000 ml @ 100 mls/hr Q10H IV 05/15/18 19:15 06/13/18 10:14 05/20/18 10:01 Mahesh Tejada MD May 20, 2018 10:33
[2018-05-20 12:00] VITALS: BP 144/64
[2018-05-20] MEDS: Micafungin 100 MG in NS 110 ML IVPB SCH (13:14)
[2018-05-20] MEDS: Albuterol ud Inhalation HHN PRN ×2 (14:55→20:21)
[2018-05-20 16:00] VITALS: BP 139/71
--- NOTE | 2018-05-20 18:21 | General Progress Note ---
Assessment/Plan Assessment/Plan Assessment and Recs # Pancytopenia -- appears that initial hep and hiv are negative though final results to follow, liver shows no major hsm or cirrhosis, may consider meds or bone marrow process, smear reviewed --> this pancytopenia is acute in onset, over last several days, thus most likely abx v antifungal related --> query meds, review with ID, is on micafungin now, monitor counts closely --> if no other cause and/or worsens, may consider flow cytometry or a bone marrow biopsy --> nepogen 300mcg sq to maintain anc >1500 # Anemia of chronic disease - monitor anemia panel --> hemolysis does not appear to be the case --> anemia panel reviewed # Paroxysmal atrial fibrillation, due to CHADS-VASC score of 5, we require to keep anticoagulated, on metoprolol --> continue on apixaban # Hx of CAD, s/p CABG, ASA , atorvastatin and metoprolol. No wall motion abnormalities on Echo. LVEF ~55%. --> appreciate cards recs # Sinus tachycardia due to hypovolemia, resolved. # DKA, resolved. # DM, non-compliant with medications. # Hx of HTN, controlled with metoprolol. # pancreatitis # increased LFT The timing of this note does not necessarily reflect the time of the patient was seen Greatly appreciate consultation! Subjective Constitutional: Denies: no symptoms, chills, diaphoresis, fever, malaise, weakness, other HEENT: Denies: no symptoms, eye pain, blurred vision, tearing, double vision, ear pain, ear discharge, nose pain, nose congestion, throat pain, throat swelling, mouth pain, mouth swelling, other Cardiovascular: Denies: no symptoms, chest pain, edema, irregular heart rate, lightheadedness, palpitations, syncope, other Respiratory: Denies: no symptoms, cough, orthopnea, shortness of breath, SOB with excertion, SOB at rest, sputum, stridor, wheezing, other Gastrointestinal/Abdominal: Denies: no symptoms, abdomen distended, abdominal pain, black stools, tarry stools, blood in stool, constipated, diarrhea, difficulty swallowing, nausea, poor appetite, poor fluid intake, rectal bleeding , vomiting, other Genitourinary: Denies: no symptoms, burning, discharge, frequency, flank pain, hematuria, incontinence, pain, urgency, other Neurologic/Psychiatric: Denies: no symptoms, anxiety, depressed, emotional problems, headache, numbness, paresthesia, pre-existing deficit, seizure, tingling, tremors, weakness, other Endocrine: Denies: no symptoms, excessive sweating, flushing, intolerance to cold, intolerance to heat, increased hunger, increased thirst, increased urine, unexplained weight gain, unexplained weight loss, other Hematologic/Lymphatic: Denies: no symptoms, anemia, easy bleeding, easy bruising, other Allergies: Coded Allergies: SHELLFISH DERIVED (Verified Allergy, Unknown, swelling and itchiness, 05/14) Subjective 05/18: Pt is awake and comfortable, no events, leukopenia improved, wbc 4.3, plt 151 05/19: seen by bedside, awake, comfortable, plt 122 05/20: Pt is awake and comfortable, no events Objective Last 24 Hour Vital Signs Date Time Temp Pulse Resp B/P (MAP) Pulse Ox O2 Delivery O2 Flow Rate FiO2 05/20/18 16:00 90 05/20/18 16:00 98.4 72 17 139/71 (93) 98 05/20/18 14:55 57 22 96 Nasal Cannula 4.0 36 05/20/18 12:00 80 05/20/18 12:00 98.4 77 18 144/64 (90) 100 05/20/18 10:02 87 142/68 05/20/18 09:00 Nasal Cannula 2.0 05/20/18 08:32 100 Nasal Cannula 2.0 28 05/20/18 08:32 87 20 Nasal Cannula 2.0 28 05/20/18 08:32 Nasal Cannula 3.0 32 05/20/18 08:00 97.8 87 17 142/68 (92) 100 05/20/18 08:00 79 05/20/18 04:38 77 05/20/18 04:17 99.2 80 18 131/61 (84) 100 05/20/18 00:00 73 05/20/18 00:00 99.0 78 18 141/65 (90) 100 05/19/18 21:00 Nasal Cannula 2.0 05/19/18 20:52 80 120/47 05/19/18 20:00 99.0 80 18 120/47 (71) 100 05/19/18 20:00 81 05/19/18 19:52 79 21 Nasal Cannula 3.0 32 05/19/18 19:52 Nasal Cannula 3.0 32 05/19/18 19:52 100 Nasal Cannula 3.0 32 Intake and Output 05/19/18 05/20/18 19:00 07:00 Intake Total 1000 ml Output Total 400 ml Balance 600 ml Intake Oral 1000 ml Output Urine Total 400 ml Laboratory Tests 05/19/18 19:20: Anti-Nuclear Antibody Screen [Pending], Herpes Simplex Virus I IgM Ab (IFA) [ Pending], Herpes Simplex Virus II IgM Ab (IFA [Pending], Monoscreen [Pending] 05/20/18 07:10: Sodium Level 134L, Potassium Level 5.4H, Chloride Level 105, Carbon Dioxide Level 17L, Anion Gap 12, Blood Urea Nitrogen 24H, Creatinine 1.3, Estimat Glomerular Filtration Rate 40.5, Glucose Level 112H, Calcium Level 7.8L, Total Bilirubin 1.1H, Direct Bilirubin 0.8H, Aspartate Amino Transf (AST/SGOT) 203H, Alanine Aminotransferase (ALT/SGPT) 236H, Alkaline Phosphatase 638H, Total Protein 5.5L, Albumin 1.9L, Globulin 3.6, Albumin/Globulin Ratio 0.5L, Cytomegalovirus DNA PCR copies/ml [Pending], Cytomegalovirus DNA PCR log10 [ Pending] Height (Feet): 4 Height (Inches): 10.00 Weight (Pounds): 180 Objective PHYSICAL EXAMINATION: GENERAL: Pleasant [place] woman seen in the ICU. HEENT: Normocephalic and atraumatic. Sclerae anicteric. Oropharynx clear. NECK: Supple. CHEST: Clear to auscultation. CARDIOVASCULAR: Revealed regular rate. ABDOMEN: Soft. Good bowel sounds. There is no organomegaly or tenderness. Anterior chest and abdomen scars were as expected. EXTREMITIES: Revealed no edema. Armando Bowen MD May 20, 2018 18:21
[2018-05-20 20:00] VITALS: BP 155/84
--- NOTE | 2018-05-20 20:02 | General Progress Note ---
Assessment/Plan Assessment/Plan Impression Diabetic ketoacidosis Anemia Transaminitis of unclear etiology Severe protein calorie malnutrition Evidence of pancreatitis, better Acute renal failure, improved Hyperglycemia Diabetes Hyponatremia Metabolic acidosis Hypercholesterolemia fever oral ulcers afib with RVR leukopenia attempt to dc home meds ID recommendations noted rate control impression, plan, and exam edited and reviewed in detail care discussed with RN Subjective Allergies: Coded Allergies: SHELLFISH DERIVED (Verified Allergy, Unknown, swelling and itchiness, 05/14) Subjective afib all noted Objective Last 24 Hour Vital Signs Date Time Temp Pulse Resp B/P (MAP) Pulse Ox O2 Delivery O2 Flow Rate FiO2 05/20/18 16:00 90 05/20/18 16:00 98.4 72 17 139/71 (93) 98 05/20/18 14:55 57 22 96 Nasal Cannula 4.0 36 05/20/18 12:00 80 05/20/18 12:00 98.4 77 18 144/64 (90) 100 05/20/18 10:02 87 142/68 05/20/18 09:00 Nasal Cannula 2.0 05/20/18 08:32 100 Nasal Cannula 2.0 28 05/20/18 08:32 87 20 Nasal Cannula 2.0 28 05/20/18 08:32 Nasal Cannula 3.0 32 05/20/18 08:00 97.8 87 17 142/68 (92) 100 05/20/18 08:00 79 05/20/18 04:38 77 05/20/18 04:17 99.2 80 18 131/61 (84) 100 05/20/18 00:00 73 05/20/18 00:00 99.0 78 18 141/65 (90) 100 05/19/18 21:00 Nasal Cannula 2.0 05/19/18 20:52 80 120/47 Intake and Output 05/19/18 05/20/18 19:00 07:00 Intake Total 1000 ml Output Total 400 ml Balance 600 ml Intake Oral 1000 ml Output Urine Total 400 ml Laboratory Tests 05/20/18 07:10: Sodium Level 134L, Potassium Level 5.4H, Chloride Level 105, Carbon Dioxide Level 17L, Anion Gap 12, Blood Urea Nitrogen 24H, Creatinine 1.3, Estimat Glomerular Filtration Rate 40.5, Glucose Level 112H, Calcium Level 7.8L, Total Bilirubin 1.1H, Direct Bilirubin 0.8H, Aspartate Amino Transf (AST/SGOT) 203H, Alanine Aminotransferase (ALT/SGPT) 236H, Alkaline Phosphatase 638H, Total Protein 5.5L, Albumin 1.9L, Globulin 3.6, Albumin/Globulin Ratio 0.5L, Cytomegalovirus DNA PCR copies/ml [Pending], Cytomegalovirus DNA PCR log10 [ Pending] Height (Feet): 4 Height (Inches): 10.00 Weight (Pounds): 180 Objective WDWN NAD clear breath sounds bilaterally without rhonchi or wheeze S1S2 iRRR without MRG NABS nontender no HSM no CCE nonfocal oral ulcers better dry alert Jesus Lew MD May 20, 2018 20:02
--- NOTE | 2018-05-20 20:34 | Cardiology Progress Note ---
Assessment/Plan Assessment/Plan 1. Paroxysmal atrial fibrillation, due to CHADS-VASC score of 5, we require to keep anticoagulated, on metoprolol. 2. Hx of CAD, s/p CABG, ASA , atorvastatin and metoprolol. No wall motion abnormalities on Echo. LVEF ~55%. 3. Sinus tachycardia, resolved, due to hypovolemia. 4. DKA, resolved. 5. DM, non-compliant with medications. 6. Hx of HTN, controlled with metoprolol. 7. Severe pulmonary HTN. Subjective Subjective Sinus rhythm at rate of 86. On NC oxygen. Objective Last 24 Hour Vital Signs Date Time Temp Pulse Resp B/P (MAP) Pulse Ox O2 Delivery O2 Flow Rate FiO2 05/20/18 20:28 Nasal Cannula 2.0 28 05/20/18 20:27 Nasal Cannula 4.0 36 05/20/18 20:26 100 Nasal Cannula 4.0 36 05/20/18 20:26 86 20 Nasal Cannula 4.0 36 05/20/18 20:22 86 20 100 Nasal Cannula 4.0 36 05/20/18 16:00 90 05/20/18 16:00 98.4 72 17 139/71 (93) 98 05/20/18 14:55 57 22 96 Nasal Cannula 4.0 36 05/20/18 12:00 80 05/20/18 12:00 98.4 77 18 144/64 (90) 100 05/20/18 10:02 87 142/68 05/20/18 09:00 Nasal Cannula 2.0 05/20/18 08:32 100 Nasal Cannula 2.0 28 05/20/18 08:32 87 20 Nasal Cannula 2.0 28 05/20/18 08:32 Nasal Cannula 3.0 32 05/20/18 08:00 97.8 87 17 142/68 (92) 100 05/20/18 08:00 79 05/20/18 04:38 77 05/20/18 04:17 99.2 80 18 131/61 (84) 100 05/20/18 00:00 73 05/20/18 00:00 99.0 78 18 141/65 (90) 100 05/19/18 21:00 Nasal Cannula 2.0 05/19/18 20:52 80 120/47 Intake and Output 05/19/18 05/20/18 19:00 07:00 Intake Total 1000 ml Output Total 400 ml Balance 600 ml Intake Oral 1000 ml Output Urine Total 400 ml 2D Echo: EF55%,Mild LVH,Mod MR,Mild AR,RVSP 67 mmHg (severe PHT),Restrictive LV phys Laboratory Tests Test 05/20/18 07:10 Sodium Level 134 MMOL/L (136-145) L Potassium Level 5.4 MMOL/L (3.5-5.1) H Chloride Level 105 MMOL/L (98-107) Carbon Dioxide Level 17 MMOL/L (21-32) L Anion Gap 12 mmol/L (5-15) Blood Urea Nitrogen 24 mg/dL (7-18) H Creatinine 1.3 MG/DL (0.55-1.30) Estimat Glomerular Filtration Rate 40.5 mL/min (>60) Glucose Level 112 MG/DL (74-106) H Calcium Level 7.8 MG/DL (8.5-10.1) L Total Bilirubin 1.1 MG/DL (0.2-1.0) H Direct Bilirubin 0.8 MG/DL (0.0-0.3) H Aspartate Amino Transf (AST/SGOT) 203 U/L (15-37) H Alanine Aminotransferase (ALT/SGPT) 236 U/L (12-78) H Alkaline Phosphatase 638 U/L (46-116) H Total Protein 5.5 G/DL (6.4-8.2) L Albumin 1.9 G/DL (3.4-5.0) L Globulin 3.6 g/dL Albumin/Globulin Ratio 0.5 (1.0-2.7) L Cytomegalovirus DNA PCR copies/ml Pending Cytomegalovirus DNA PCR log10 Pending Objective HEENT: Normocephalic, atraumatic, Pupils equally reactive to light and accommodation, EOMI. NECK: No JVD, no carotid bruit. CARDIOVASCULAR: Regular rate and rhythm. No murmurs, gallops or rubs. LUNGS: Clear to auscultation bilaterally. No crackles or Rhonchi. ABDOMEN: Soft and nontender. No organomegaly, + BS. EXTREMITIES: No cyanosis, clubbing or edema. Miller Mckeon MD May 20, 2018 20:34
[2018-05-21] VITALS: BP 130/63
[2018-05-21] MEDS: Albuterol ud Inhalation HHN PRN (01:53)
[2018-05-21 04:00] VITALS: BP 126/59
[2018-05-21] MEDS: NovoLOG Insulin Flexpen SUBQ SCH ×3 (06:54→16:30)
[2018-05-21 08:00] VITALS: BP 139/72
[2018-05-21] MEDS: Pantoprazole Inj IVP SCH (08:39)
[2018-05-21] MEDS: Metoprolol 25mg tab ORAL SCH (08:39)
[2018-05-21] MEDS: Enoxaparin 80mg Inj SUBQ SCH (08:43)
[2018-05-21 09:34] LABS: HEMATOCRIT 27.1 % (37.0-47.0); HEMOGLOBIN 8.7 G/DL (12.0-16.0); MEAN CORPUSCULAR VOLUME 83 FL (80-99); PLATELET COUNT 117 K/UL (150-450); RED BLOOD COUNT 3.28 M/UL (4.20-5.40); RED CELL DISTRIBUTION WIDTH 16.4 % (11.6-14.8); WHITE BLOOD COUNT 3.4 K/UL (4.8-10.8)
[2018-05-21 09:42] LABS: INR 1.1 (0.9-1.1)
[2018-05-21 09:55] LABS: ALANINE AMINOTRANSFERASE 266 U/L (12-78); ALBUMIN 1.8 G/DL (3.4-5.0); ALBUMIN/GLOBULIN RATIO 0.5 (1.0-2.7); ALKALINE PHOSPHATASE 761 U/L (46-116); ANION GAP 11 mmol/L (5-15); ASPARTATE AMINO TRANSFERASE 203 U/L (15-37); BILIRUBIN,TOTAL 1.5 MG/DL (0.2-1.0); BLOOD UREA NITROGEN 21 mg/dL (7-18); CALCIUM 8.4 MG/DL (8.5-10.1); CARBON DIOXIDE 17 MMOL/L (21-32); CHLORIDE 104 MMOL/L (98-107); CREATININE 1.2 MG/DL (0.55-1.30); SODIUM 132 MMOL/L (136-145)
[2018-05-21 10:07] LABS: ANION GAP 13 mmol/L (5-15); BLOOD UREA NITROGEN 21 mg/dL (7-18); CARBON DIOXIDE 16 MMOL/L (21-32); CHLORIDE 104 MMOL/L (98-107); CREATININE 1.2 MG/DL (0.55-1.30); POTASSIUM 4.9 MMOL/L (3.5-5.1); SODIUM 133 MMOL/L (136-145)
--- NOTE | 2018-05-21 10:37 | Infectious Diseases Prog Note ---
Assessment/Plan Assessment/Plan antibiotics : levoquin, micafungin, acyclovir, doxycycline A 1. pancreatitis 2. herpes of lip 3. diabetic ketoacidosis 4. increased LFT 5. fever improving 6. hypertension 7. fungal UTI 8. ? drug reaction improving P 1. continue acyclovir 6 more days 2. continue levoquin 1 more day 3. continue micafungin 2 more days 4. continue doxycycline 5. will follow up cultures Subjective Constitutional: Denies: fever, chills Respiratory: Reports: shortness of breath Gastrointestinal/Abdominal: Denies: nausea, vomiting, diarrhea Musculoskeletal: Reports: pain Allergies: Coded Allergies: SHELLFISH DERIVED (Verified Allergy, Unknown, swelling and itchiness, 05/14) Objective Vital Signs Last 24 Hour Vital Signs Date Time Temp Pulse Resp B/P (MAP) Pulse Ox O2 Delivery O2 Flow Rate FiO2 05/21/18 08:39 92 139/72 05/21/18 08:00 98.9 92 16 139/72 (94) 99 05/21/18 08:00 Nasal Cannula 2.0 05/21/18 04:00 Nasal Cannula 2.0 05/21/18 04:00 98.6 89 22 126/59 (81) 100 05/21/18 04:00 84 05/21/18 02:03 81 22 100 Nasal Cannula 2.0 28 05/21/18 01:54 79 20 100 Nasal Cannula 2.0 28 05/21/18 00:00 98.5 90 22 130/63 (85) 100 05/21/18 00:00 84 05/20/18 22:53 107 155/84 05/20/18 20:32 90 32 100 Nasal Cannula 4.0 36 05/20/18 20:28 Nasal Cannula 2.0 28 05/20/18 20:27 Nasal Cannula 4.0 36 05/20/18 20:26 100 Nasal Cannula 4.0 36 05/20/18 20:26 86 20 Nasal Cannula 4.0 36 05/20/18 20:22 86 20 100 Nasal Cannula 4.0 36 05/20/18 20:00 100.1 107 22 155/84 (107) 100 05/20/18 20:00 Nasal Cannula 2.0 05/20/18 20:00 93 05/20/18 16:00 90 05/20/18 16:00 98.4 72 17 139/71 (93) 98 05/20/18 14:55 57 22 96 Nasal Cannula 4.0 36 05/20/18 12:00 80 05/20/18 12:00 98.4 77 18 144/64 (90) 100 Height (Feet): 4 Height (Inches): 10.00 Weight (Pounds): 180 HEENT: other - lips hyperpigmented ulcers Respiratory/Chest: lungs clear Cardiovascular: normal rate, regular rhythm, no gallop/murmur Abdomen: soft, non tender Extremities: other - + edema Skin: rash - erythematous Microbiology Date/Time Source Procedure Growth Status 05/20/18 10:45 Lip Lower Gram Stain - Final Resulted 05/20/18 10:45 Lip Lower Wound Culture Pending Resulted Laboratory Tests Test 05/21/18 09:00 White Blood Count 3.4 K/UL (4.8-10.8) L Red Blood Count 3.28 M/UL (4.20-5.40) L Hemoglobin 8.7 G/DL (12.0-16.0) L Hematocrit 27.1 % (37.0-47.0) L Mean Corpuscular Volume 83 FL (80-99) Mean Corpuscular Hemoglobin 26.6 PG (27.0-31.0) L Mean Corpuscular Hemoglobin Concent 32.1 G/DL (32.0-36.0) Red Cell Distribution Width 16.4 % (11.6-14.8) H Platelet Count 117 K/UL (150-450) L Mean Platelet Volume 7.0 FL (6.5-10.1) Neutrophils (%) (Auto) % (45.0-75.0) Lymphocytes (%) (Auto) % (20.0-45.0) Monocytes (%) (Auto) % (1.0-10.0) Eosinophils (%) (Auto) % (0.0-3.0) Basophils (%) (Auto) % (0.0-2.0) Neutrophils % (Manual) Pending Lymphocytes % (Manual) Pending Platelet Estimate Pending Platelet Morphology Pending Prothrombin Time 11.5 SEC (9.30-11.50) Prothromb Time International Ratio 1.1 (0.9-1.1) Sodium Level 133 MMOL/L (136-145) L Potassium Level 4.9 MMOL/L (3.5-5.1) Chloride Level 104 MMOL/L (98-107) Carbon Dioxide Level 16 MMOL/L (21-32) L Anion Gap 13 mmol/L (5-15) Blood Urea Nitrogen 21 mg/dL (7-18) H Creatinine 1.2 MG/DL (0.55-1.30) Estimat Glomerular Filtration Rate 44.4 mL/min (>60) Glucose Level 172 MG/DL (74-106) H Calcium Level 8.0 MG/DL (8.5-10.1) L Total Bilirubin 1.5 MG/DL (0.2-1.0) H Direct Bilirubin 1.0 MG/DL (0.0-0.3) H Aspartate Amino Transf (AST/SGOT) 203 U/L (15-37) H Alanine Aminotransferase (ALT/SGPT) 266 U/L (12-78) H Alkaline Phosphatase 761 U/L (46-116) H Total Protein 5.7 G/DL (6.4-8.2) L Albumin 1.8 G/DL (3.4-5.0) L Globulin 3.9 g/dL Albumin/Globulin Ratio 0.5 (1.0-2.7) L Current Medications Medications (Trade) Dose Ordered Sig/Ellen Route PRN Reason Start Time Stop Time Status Last Admin Dose Admin Acetaminophen (Tylenol) 650 mg Q4H PRN ORAL Mild Pain/Temp > 100.5 05/17/18 20:45 06/16/18 20:44 05/19/18 16:03 Acyclovir (Zovirax) 800 mg EVERY 8 HOURS ORAL 05/19/18 14:00 06/18/18 13:59 05/21/18 06:52 Al Hydroxide/Mg Hydroxide (Mylanta) 30 ml Q6H PRN ORAL Abdominal cramps 05/15/18 20:15 06/12/18 08:14 Albuterol Sulfate (Proventil) 2.5 mg Q4H PRN HHN Shortness of Breath 05/16/18 14:15 05/21/18 14:14 05/21/18 01:53 Dextrose (Dextrose 50%) 25 ml Q30M PRN IV Hypoglycemia 05/15/18 19:15 06/13/18 10:14 Dextrose (Dextrose 50%) 50 ml Q30M PRN IV Hypoglycemia 05/15/18 19:15 06/13/18 10:14 Doxycycline Monohydrate (Vibramycin) 100 mg EVERY 12 HOURS ORAL 05/20/18 10:37 05/27/18 10:36 05/21/18 08:39 Enoxaparin Sodium (Lovenox) 80 mg EVERY 12 HOURS SUBQ 05/17/18 21:00 06/16/18 20:59 05/21/18 08:43 Insulin Aspart (NovoLOG) BEFORE MEALS AND HS SUBQ 05/15/18 21:00 06/13/18 11:29 05/21/18 06:54 Levofloxacin (Levaquin) 250 mg DAILY ORAL 05/18/18 09:00 05/25/18 08:59 05/21/18 08:39 Lorazepam (Ativan) 1 mg Q3H PRN ORAL For Anxiety 05/17/18 17:45 05/24/18 17:44 05/17/18 18:19 Magnesium Hydroxide (Mom) 30 ml DAILYPRN PRN ORAL Constipation 05/15/18 19:00 06/14/18 18:59 05/17/18 18:17 Metoprolol Tartrate (Lopressor) 25 mg Q12HR ORAL 05/15/18 21:00 06/14/18 17:59 05/21/18 08:39 Micafungin Sodium 100 mg/Sodium Chloride 110 ml @ 110 mls/hr Q24H IVPB 05/17/18 12:00 05/24/18 11:59 05/20/18 13:14 Pantoprazole (Protonix) 40 mg DAILY IVP 05/16/18 09:00 06/12/18 08:59 05/21/18 08:39 Khadra Melendez MD May 21, 2018 10:37
--- NOTE | 2018-05-21 10:39 | General Progress Note ---
Assessment/Plan Assessment/Plan Assessment - DKA - Abnormal LFT - CMV/HSV/EBV/EZRA titers pending - will need liver biopsy if results negative - have asked for second opinion GI consult - Urolithiasis - Cholelithiasis, doubt CBD obstruction but will arrange EUS (ERCP if EUS (+)) for today - DM - CAD/CABG - Gout Recommendations - follow LFT - NPO - f/u CMV, HSV, EBV serology - lab called, no results yet (send outs) - EUS later today. ERCP if EUS (+) Subjective Allergies: Coded Allergies: SHELLFISH DERIVED (Verified Allergy, Unknown, swelling and itchiness, 05/14) Subjective C/o fatigue/weakness c/o lip dryness new rash on legs d/w patient re abnormal LFT d/w Dr. Benito re 2nd opinion consult, and EUS vs ERCP Objective Last 24 Hour Vital Signs Date Time Temp Pulse Resp B/P (MAP) Pulse Ox O2 Delivery O2 Flow Rate FiO2 05/21/18 08:39 92 139/72 05/21/18 08:00 98.9 92 16 139/72 (94) 99 05/21/18 08:00 Nasal Cannula 2.0 05/21/18 04:00 Nasal Cannula 2.0 05/21/18 04:00 98.6 89 22 126/59 (81) 100 05/21/18 04:00 84 05/21/18 02:03 81 22 100 Nasal Cannula 2.0 28 05/21/18 01:54 79 20 100 Nasal Cannula 2.0 28 05/21/18 00:00 98.5 90 22 130/63 (85) 100 05/21/18 00:00 84 05/20/18 22:53 107 155/84 05/20/18 20:32 90 32 100 Nasal Cannula 4.0 36 05/20/18 20:28 Nasal Cannula 2.0 28 05/20/18 20:27 Nasal Cannula 4.0 36 05/20/18 20:26 100 Nasal Cannula 4.0 36 05/20/18 20:26 86 20 Nasal Cannula 4.0 36 05/20/18 20:22 86 20 100 Nasal Cannula 4.0 36 05/20/18 20:00 100.1 107 22 155/84 (107) 100 05/20/18 20:00 Nasal Cannula 2.0 05/20/18 20:00 93 1/31/19 16:00 90 05/20/18 16:00 98.4 72 17 139/71 (93) 98 05/20/18 14:55 57 22 96 Nasal Cannula 4.0 36 05/20/18 12:00 80 05/20/18 12:00 98.4 77 18 144/64 (90) 100 Intake and Output 05/20/18 05/21/18 19:00 07:00 # Voids 2 # Bowel Movements 2 Laboratory Tests 05/21/18 09:00: White Blood Count 3.4L, Red Blood Count 3.28L, Hemoglobin 8.7L, Hematocrit 27.1L , Mean Corpuscular Volume 83, Mean Corpuscular Hemoglobin 26.6L, Mean Corpuscular Hemoglobin Concent 32.1, Red Cell Distribution Width 16.4H, Platelet Count 117L, Mean Platelet Volume 7.0, Neutrophils (%) (Auto) , Lymphocytes (%) (Auto) , Monocytes (%) (Auto) , Eosinophils (%) (Auto) , Basophils (%) (Auto) , Neutrophils % (Manual) [Pending], Lymphocytes % (Manual) [Pending], Platelet Estimate [Pending], Platelet Morphology [Pending], Prothrombin Time 11.5, Prothromb Time International Ratio 1.1, Sodium Level 133L , Potassium Level 4.9, Chloride Level 104, Carbon Dioxide Level 16L, Anion Gap 13, Blood Urea Nitrogen 21H, Creatinine 1.2, Estimat Glomerular Filtration Rate 44.4, Glucose Level 172H, Calcium Level 8.0L, Total Bilirubin 1.5H, Direct Bilirubin 1.0H, Aspartate Amino Transf (AST/SGOT) 203H, Alanine Aminotransferase (ALT/SGPT) 266H, Alkaline Phosphatase 761H, Total Protein 5.7L , Albumin 1.8L, Globulin 3.9, Albumin/Globulin Ratio 0.5L Height (Feet): 4 Height (Inches): 10.00 Weight (Pounds): 180 Objective WDWN NCAT, crusted tissue around mouth Red desquamating thigh Rash Neck supple CTA RRR abd soft, ND no edema non focal Mary Jewell MD May 21, 2018 10:39
--- NOTE | 2018-05-21 11:03 | NUR ---
Evaluation of medications that can cause elevated hepatic enzymes: From the patient's current medication list, the medications with the highest incidence of elevated hepatic enzymes are as follows: 1. Lovenox: Elevated hepatic enzymes (AST/ALT) greater that 3 times the upper limit of normal have been reported in ~6% of adult patients treated with enoxaparin (Clinical Pharmacology) 2. Micafungin: Among the [id number] patients who received micafungin during clinical trials, 3 - 10% had elevated hepatic enzymes (Clinical Pharmacology) Acyclovir in its IV form can cause elevated hepatic enzymes in 1-2% of patients treated. Given she is currently on oral therapy, this is a much less likely culprit. The elevated hepatic enzymes are likely not due to any of the other current medications on Miss Hodge's current medication list. Shawn Santos, PharmGaryD.
--- NOTE | 2018-05-21 11:03 | NUR ---
RD ASSESSMENT & RECOMMENDATIONS SEE CARE ACTIVITY FOR COMPLETE ASSESSMENT DAILY ESTIMATED NEEDS: Needs based on DM, cardiac, obese/ 54kg abw 25-30 kcals/kg 1154-5963 total kcals 1-1.5 g protein/kg 54-81 g total protein 25-30 mL/kg 9650-8582 total fluid mLs NUTRITION DIAGNOSIS: 1) Altered nutrition related lab values R/T diabetes, clinical condition as evidenced by A1C 11.4, increased from 8.1 in August 2017, DKA w/ adm LO=731, elev BNP (2846), elev creat (1.7-> now wnl), elev LFTs, trend up, elev lipase (>2000), not updated. CURRENT DIET:CCHO MED, PUREED MOIST/ no fresh fruit/vegetables PO DIET RECOMMENDATIONS: CCHO LOW, LOW NA, LOW FAT/ texture as tolerated ADDITIONAL RECOMMENDATIONS: 1) Standing wt as able for accurate CBW 2) [employer] eval for appropriate texture- pt asking for advanced texture -c/o food being stuck in esophagus 3) Monitor LFTs- trending up at this time 4) Monitor PO intake- add Glucerna QD w/ continued poor PO intake 5) Updated lipase level
[2018-05-21 12:00] VITALS: BP 128/59
[2018-05-21] MEDS: Micafungin 100 MG in NS 110 ML IVPB SCH (12:33)
[2018-05-21 16:00] VITALS: BP 134/82
--- NOTE | 2018-05-21 16:03 | Pulmonology Progress Note ---
Assessment/Plan Assessment/Plan Pulmonary Progress Note Assessment/Plan Impression Diabetic ketoacidosis Anemia Transaminitis of unclear etiology Severe protein calorie malnutrition Evidence of pancreatitis, better Acute renal failure, improved Hyperglycemia Diabetes Hyponatremia Metabolic acidosis Hypercholesterolemia fever oral ulcers afib with RVR leukopenia monitor sugars cards noted Renal and GI evaluation ID evaluation heme noted Monitor liver enzymes and renal function; off statin check cultures and await ID clearance- abx change noted impression, plan, and exam edited and reviewed in detail care discussed with RN Subjective Allergies: Coded Allergies: SHELLFISH DERIVED (Verified Allergy, Unknown, swelling and itchiness, 05/14) Subjective tele afib leukopenia better fevers noted Objective Vital Signs Noted Laboratory Tests 05/17/18 08:20: White Blood Count 4.3#L, Red Blood Count 3.56L, Hemoglobin 9.2L, Hematocrit 29.2L, Mean Corpuscular Volume 82, Mean Corpuscular Hemoglobin 25.9L, Mean Corpuscular Hemoglobin Concent 31.6L, Red Cell Distribution Width 15.1H, Platelet Count 151, Mean Platelet Volume 7.2, Neutrophils (%) (Auto) 68.4, Lymphocytes (%) (Auto) 17.7L, Monocytes (%) (Auto) 11.9H, Eosinophils (%) (Auto ) 1.5, Basophils (%) (Auto) 0.6, Sodium Level 130L, Potassium Level 4.6, Chloride Level 101, Carbon Dioxide Level 15L, Anion Gap 14, Blood Urea Nitrogen 24H, Creatinine 1.7H, Estimat Glomerular Filtration Rate 29.7, Glucose Level 227H, Calcium Level 7.7L, Total Bilirubin 1.6H, Direct Bilirubin 1.2H, Aspartate Amino Transf (AST/SGOT) 114H, Alanine Aminotransferase (ALT/SGPT) 185H , Alkaline Phosphatase 459H, Total Protein 5.6L, Albumin 2.1L, Globulin 3.5, Albumin/Globulin Ratio 0.6L, HIV (1&2) Antibody Rapid Negative Height (Feet): 4 Height (Inches): 10.00 Weight (Pounds): 181 Objective WDWN NAD clear breath sounds bilaterally without rhonchi or wheeze S1S2 iRRR without MRG NABS nontender no HSM no CCE nonfocal oral ulcers better dry alert Subjective ROS Limited/Unobtainable: No Allergies: Coded Allergies: SHELLFISH DERIVED (Verified Allergy, Unknown, swelling and itchiness, 05/14) Objective Last 24 Hour Vital Signs Date Time Temp Pulse Resp B/P (MAP) Pulse Ox O2 Delivery O2 Flow Rate FiO2 05/21/18 12:00 Nasal Cannula 2.0 05/21/18 12:00 97.9 75 16 128/59 (82) 100 05/21/18 08:39 92 139/72 05/21/18 08:00 98.9 92 16 139/72 (94) 99 05/21/18 08:00 82 05/21/18 08:00 Nasal Cannula 2.0 05/21/18 04:00 Nasal Cannula 2.0 05/21/18 04:00 98.6 89 22 126/59 (81) 100 05/21/18 04:00 84 05/21/18 02:03 81 22 100 Nasal Cannula 2.0 28 05/21/18 01:54 79 20 100 Nasal Cannula 2.0 28 05/21/18 00:00 98.5 90 22 130/63 (85) 100 05/21/18 00:00 84 05/20/18 22:53 107 155/84 05/20/18 20:32 90 32 100 Nasal Cannula 4.0 36 05/20/18 20:28 Nasal Cannula 2.0 28 05/20/18 20:27 Nasal Cannula 4.0 36 05/20/18 20:26 100 Nasal Cannula 4.0 36 05/20/18 20:26 86 20 Nasal Cannula 4.0 36 05/20/18 20:22 86 20 100 Nasal Cannula 4.0 36 05/20/18 20:00 100.1 107 22 155/84 (107) 100 05/20/18 20:00 Nasal Cannula 2.0 05/20/18 20:00 93 Intake and Output 05/20/18 05/21/18 19:00 07:00 # Voids 2 # Bowel Movements 2 Microbiology Date/Time Source Procedure Growth Status 05/20/18 10:45 Lip Lower Gram Stain - Final Resulted 05/20/18 10:45 Lip Lower Wound Culture Pending Resulted Laboratory Tests 05/21/18 09:00: White Blood Count 3.4L, Red Blood Count 3.28L, Hemoglobin 8.7L, Hematocrit 27.1L , Mean Corpuscular Volume 83, Mean Corpuscular Hemoglobin 26.6L, Mean Corpuscular Hemoglobin Concent 32.1, Red Cell Distribution Width 16.4H, Platelet Count 117L, Mean Platelet Volume 7.0, Neutrophils (%) (Auto) , Lymphocytes (%) (Auto) , Monocytes (%) (Auto) , Eosinophils (%) (Auto) , Basophils (%) (Auto) , Differential Total Cells Counted 100, Neutrophils % ( Manual) 8L, Lymphocytes % (Manual) 78H, Monocytes % (Manual) 11H, Eosinophils % (Manual) 1, Basophils % (Manual) 1, Metamyelocytes % 1H, Band Neutrophils 0, Platelet Estimate DecreasedL, Platelet Morphology Normal, Hypochromasia 1+, Anisocytosis 1+, Prothrombin Time 11.5, Prothromb Time International Ratio 1.1, Sodium Level 133L, Potassium Level 4.9, Chloride Level 104, Carbon Dioxide Level 16L, Anion Gap 13, Blood Urea Nitrogen 21H, Creatinine 1.2, Estimat Glomerular Filtration Rate 44.4, Glucose Level 172H, Calcium Level 8.0L, Total Bilirubin 1.5H, Direct Bilirubin 1.0H, Aspartate Amino Transf (AST/SGOT) 203H, Alanine Aminotransferase (ALT/SGPT) 266H, Alkaline Phosphatase 761H, Total Protein 5.7L, Albumin 1.8L, Globulin 3.9, Albumin/Globulin Ratio 0.5L Current Medications Medications (Trade) Dose Ordered Sig/Ellen Route PRN Reason Start Time Stop Time Status Last Admin Dose Admin Acetaminophen (Tylenol) 650 mg Q4H PRN ORAL Mild Pain/Temp > 100.5 05/17/18 20:45 06/16/18 20:44 05/19/18 16:03 Acyclovir (Zovirax) 800 mg EVERY 8 HOURS ORAL 05/19/18 14:00 05/27/18 23:59 05/21/18 13:37 Al Hydroxide/Mg Hydroxide (Mylanta) 30 ml Q6H PRN ORAL Abdominal cramps 05/15/18 20:15 06/12/18 08:14 Dextrose (Dextrose 50%) 25 ml Q30M PRN IV Hypoglycemia 05/15/18 19:15 06/13/18 10:14 Dextrose (Dextrose 50%) 50 ml Q30M PRN IV Hypoglycemia 05/15/18 19:15 06/13/18 10:14 Doxycycline Monohydrate (Vibramycin) 100 mg EVERY 12 HOURS ORAL 05/20/18 10:37 05/27/18 10:36 05/21/18 08:39 Enoxaparin Sodium (Lovenox) 80 mg DAILY SUBQ 05/22/18 09:00 06/21/18 08:59 Insulin Aspart (NovoLOG) BEFORE MEALS AND HS SUBQ 05/15/18 21:00 06/13/18 11:29 05/21/18 06:54 Levofloxacin (Levaquin) 250 mg DAILY ORAL 05/18/18 09:00 05/22/18 23:59 05/21/18 08:39 Lorazepam (Ativan) 1 mg Q3H PRN ORAL For Anxiety 05/17/18 17:45 05/24/18 17:44 05/17/18 18:19 Magnesium Hydroxide (Mom) 30 ml DAILYPRN PRN ORAL Constipation 05/15/18 19:00 06/14/18 18:59 05/17/18 18:17 Metoprolol Tartrate (Lopressor) 25 mg Q12HR ORAL 05/15/18 21:00 06/14/18 17:59 05/21/18 08:39 Micafungin Sodium 100 mg/Sodium Chloride 110 ml @ 110 mls/hr Q24H IVPB 05/17/18 12:00 05/24/18 11:59 05/21/18 12:33 Pantoprazole (Protonix) 40 mg DAILY IVP 05/16/18 09:00 06/12/18 08:59 05/21/18 08:39 Gulshan Landry MD May 21, 2018 16:03
[2018-05-21 20:00] VITALS: BP 162/81
--- NOTE | 2018-05-21 20:00 | NUR ---
HAND-OFF: Report given to WAYNE Serrano.
--- NOTE | 2018-05-21 20:10 | NUR ---
NURSE NOTES: Called Dr. Lew regarding renewal of Provenfady PRN breathing treatment. Awaiting callback. Addendum: 05/21/18 at 2027 by RONNIE SHAY RN RN Scheduled Proventil
--- NOTE | 2018-05-21 20:10 | NUR ---
NURSE NOTES: Received report from,Lizzie BLACK. Patient in bed awake with no signs of acute distress. Respiration even and non labored on 3L NC. IV line patent and intact. VS stable. Bed in lowest position. All needs attended and met. Call light within reach. Will continue plan of care.
--- NOTE | 2018-05-21 20:15 | NUR ---
NURSE NOTES: Received new order to continue Proventil breathing treatment. Noted and carried out.
--- NOTE | 2018-05-21 20:18 | NUR ---
NURSE NOTES: Left a message to Dr. Benito about the schedule procedure because family is asking if the procedure will take place. Awaiting call back Addendum: 05/22/18 at 0059 by ROSA LU RN Family is also concern that patient is NPO for some time, and patient is complaining of being really hungry.
--- NOTE | 2018-05-21 20:19 | NUR ---
NURSE NOTES: Received order from Dr. Benito to resume diet.
--- NOTE | 2018-05-21 20:21 | NUR ---
NURSE NOTES: Patient is still complaining of SOB. RT checked patient, patient O2 saturation is 94% with no signs of acute distress. Advised Dr. Landry if ABG is needed. ABG is then ordered by Dr. Landry, noted and carried out. Addendum: 05/22/18 at 0104 by ROSA LU RN time: 22:21
--- NOTE | 2018-05-21 20:33 | General Progress Note ---
Assessment/Plan Assessment/Plan Assessment and Recs # Pancytopenia -- appears that initial hep and hiv are negative though final results to follow, liver shows no major hsm or cirrhosis, may consider meds or bone marrow process, smear reviewed --> this pancytopenia is acute in onset, over last several days, thus most likely abx infection related --> query meds, review with ID, is on micafungin now, monitor counts closely --> if no other cause and/or worsens, may consider flow cytometry or a bone marrow biopsy --> nepogen 300mcg sq to maintain anc >1500 --> wbc trend : 1.7-->4.3-->3.1-->3.4 # Anemia of chronic disease - monitor anemia panel --> hemolysis does not appear to be the case --> anemia panel reviewed -->hgb trend: 8.3-->9.2-->8.9-->8.7 # Paroxysmal atrial fibrillation, due to CHADS-VASC score of 5, we require to keep anticoagulated, on metoprolol --> continue on apixaban # Hx of CAD, s/p CABG, ASA , atorvastatin and metoprolol. No wall motion abnormalities on Echo. LVEF ~55%. --> appreciate cards recs # Sinus tachycardia due to hypovolemia, resolved. # DKA, resolved. # DM, non-compliant with medications. # Hx of HTN, controlled with metoprolol. # pancreatitis # increased LFT The timing of this note does not necessarily reflect the time of the patient was seen. Greatly appreciate consultation! Subjective Constitutional: Denies: no symptoms, chills, diaphoresis, fever, malaise, weakness, other HEENT: Denies: no symptoms, eye pain, blurred vision, tearing, double vision, ear pain, ear discharge, nose pain, nose congestion, throat pain, throat swelling, mouth pain, mouth swelling, other Cardiovascular: Denies: no symptoms, chest pain, edema, irregular heart rate, lightheadedness, palpitations, syncope, other Respiratory: Denies: no symptoms, cough, orthopnea, shortness of breath, SOB with excertion, SOB at rest, sputum, stridor, wheezing, other Gastrointestinal/Abdominal: Denies: no symptoms, abdomen distended, abdominal pain, black stools, tarry stools, blood in stool, constipated, diarrhea, difficulty swallowing, nausea, poor appetite, poor fluid intake, rectal bleeding , vomiting, other Genitourinary: Denies: no symptoms, burning, discharge, frequency, flank pain, hematuria, incontinence, pain, urgency, other Neurologic/Psychiatric: Denies: no symptoms, anxiety, depressed, emotional problems, headache, numbness, paresthesia, pre-existing deficit, seizure, tingling, tremors, weakness, other Endocrine: Denies: no symptoms, excessive sweating, flushing, intolerance to cold, intolerance to heat, increased hunger, increased thirst, increased urine, unexplained weight gain, unexplained weight loss, other Hematologic/Lymphatic: Denies: no symptoms, anemia, easy bleeding, easy bruising, other Allergies: Coded Allergies: SHELLFISH DERIVED (Verified Allergy, Unknown, swelling and itchiness, 05/14) Subjective 05/18: Pt is awake and comfortable, no events, leukopenia improved, wbc 4.3, plt 151 05/19: seen by bedside, awake, comfortable, plt 122 05/20: Pt is awake and comfortable, no events 05/21: Pt is seen in the room, resting in bed, no fevers or chills, wbc 8.7, plt 117 Objective Last 24 Hour Vital Signs Date Time Temp Pulse Resp B/P (MAP) Pulse Ox O2 Delivery O2 Flow Rate FiO2 05/21/18 16:00 90 05/21/18 16:00 Nasal Cannula 2.0 05/21/18 16:00 98.9 77 16 134/82 (99) 95 05/21/18 12:00 81 05/21/18 12:00 Nasal Cannula 2.0 05/21/18 12:00 97.9 75 16 128/59 (82) 100 05/21/18 08:39 92 139/72 05/21/18 08:00 98.9 92 16 139/72 (94) 99 05/21/18 08:00 82 05/21/18 08:00 Nasal Cannula 2.0 05/21/18 04:00 Nasal Cannula 2.0 05/21/18 04:00 98.6 89 22 126/59 (81) 100 05/21/18 04:00 84 05/21/18 02:03 81 22 100 Nasal Cannula 2.0 28 05/21/18 01:54 79 20 100 Nasal Cannula 2.0 28 05/21/18 00:00 98.5 90 22 130/63 (85) 100 05/21/18 00:00 84 05/20/18 22:53 107 155/84 05/20/18 20:32 90 32 100 Nasal Cannula 4.0 36 Intake and Output 05/20/18 05/21/18 19:00 07:00 # Voids 2 # Bowel Movements 2 Laboratory Tests 05/21/18 09:00: White Blood Count 3.4L, Red Blood Count 3.28L, Hemoglobin 8.7L, Hematocrit 27.1L , Mean Corpuscular Volume 83, Mean Corpuscular Hemoglobin 26.6L, Mean Corpuscular Hemoglobin Concent 32.1, Red Cell Distribution Width 16.4H, Platelet Count 117L, Mean Platelet Volume 7.0, Neutrophils (%) (Auto) , Lymphocytes (%) (Auto) , Monocytes (%) (Auto) , Eosinophils (%) (Auto) , Basophils (%) (Auto) , Differential Total Cells Counted 100, Neutrophils % ( Manual) 8L, Lymphocytes % (Manual) 78H, Monocytes % (Manual) 11H, Eosinophils % (Manual) 1, Basophils % (Manual) 1, Metamyelocytes % 1H, Band Neutrophils 0, Platelet Estimate DecreasedL, Platelet Morphology Normal, Hypochromasia 1+, Anisocytosis 1+, Prothrombin Time 11.5, Prothromb Time International Ratio 1.1, Sodium Level 133L, Potassium Level 4.9, Chloride Level 104, Carbon Dioxide Level 16L, Anion Gap 13, Blood Urea Nitrogen 21H, Creatinine 1.2, Estimat Glomerular Filtration Rate 44.4, Glucose Level 172H, Calcium Level 8.0L, Total Bilirubin 1.5H, Direct Bilirubin 1.0H, Aspartate Amino Transf (AST/SGOT) 203H, Alanine Aminotransferase (ALT/SGPT) 266H, Alkaline Phosphatase 761H, Total Protein 5.7L, Albumin 1.8L, Globulin 3.9, Albumin/Globulin Ratio 0.5L Height (Feet): 4 Height (Inches): 10.00 Weight (Pounds): 180 Objective PHYSICAL EXAMINATION: GENERAL: [place] woman seen in the ICU. HEENT: Normocephalic and atraumatic. Sclerae anicteric. Oropharynx clear. NECK: Supple. CHEST: Clear to auscultation. CARDIOVASCULAR: Revealed regular rate. ABDOMEN: Soft. Good bowel sounds. There is no organomegaly or tenderness. Anterior chest and abdomen scars were as expected. EXTREMITIES: Revealed no edema. Armando Bowen MD May 21, 2018 20:33
[2018-05-21] MEDS ORDERED: Albuterol ud Inhalation HHN PRN (20:45)
--- NOTE | 2018-05-21 21:59 | Cardiology Progress Note ---
Assessment/Plan Assessment/Plan 1. Paroxysmal atrial fibrillation, due to CHADS-VASC score of 5, we require to keep anticoagulated, on metoprolol. 2. Hx of CAD, s/p CABG, ASA , atorvastatin and metoprolol. No wall motion abnormalities on Echo. LVEF ~55%. 3. Sinus tachycardia, resolved, due to hypovolemia. 4. DKA, resolved. 5. DM, non-compliant with medications. 6. Hx of HTN, controlled with metoprolol. 7. Severe pulmonary HTN. Subjective Subjective Sinus tashycardia at rate of 105. On NC oxygen with FiO2 of 36.. Objective Last 24 Hour Vital Signs Date Time Temp Pulse Resp B/P (MAP) Pulse Ox O2 Delivery O2 Flow Rate FiO2 05/21/18 21:09 Nasal Cannula 4.0 36 05/21/18 21:08 95 Nasal Cannula 4.0 36 05/21/18 21:08 105 26 Nasal Cannula 4.0 36 05/21/18 21:05 105 26 97 Nasal Cannula 4.0 36 05/21/18 20:55 115 26 95 Nasal Cannula 4.0 36 05/21/18 16:00 90 05/21/18 16:00 Nasal Cannula 2.0 05/21/18 16:00 98.9 77 16 134/82 (99) 95 05/21/18 12:00 81 05/21/18 12:00 Nasal Cannula 2.0 05/21/18 12:00 97.9 75 16 128/59 (82) 100 05/21/18 08:39 92 139/72 05/21/18 08:00 98.9 92 16 139/72 (94) 99 05/21/18 08:00 82 05/21/18 08:00 Nasal Cannula 2.0 05/21/18 04:00 Nasal Cannula 2.0 05/21/18 04:00 98.6 89 22 126/59 (81) 100 05/21/18 04:00 84 05/21/18 02:03 81 22 100 Nasal Cannula 2.0 28 05/21/18 01:54 79 20 100 Nasal Cannula 2.0 28 05/21/18 00:00 98.5 90 22 130/63 (85) 100 05/21/18 00:00 84 05/20/18 22:53 107 155/84 Intake and Output 05/20/18 05/21/18 19:00 07:00 # Voids 2 # Bowel Movements 2 2D Echo: EF55%,Mild LVH,Mod MR,Mild AR,RVSP 67 mmHg (severe PHT),Restrictive LV phys Laboratory Tests Test 05/21/18 09:00 White Blood Count 3.4 K/UL (4.8-10.8) L Red Blood Count 3.28 M/UL (4.20-5.40) L Hemoglobin 8.7 G/DL (12.0-16.0) L Hematocrit 27.1 % (37.0-47.0) L Mean Corpuscular Volume 83 FL (80-99) Mean Corpuscular Hemoglobin 26.6 PG (27.0-31.0) L Mean Corpuscular Hemoglobin Concent 32.1 G/DL (32.0-36.0) Red Cell Distribution Width 16.4 % (11.6-14.8) H Platelet Count 117 K/UL (150-450) L Mean Platelet Volume 7.0 FL (6.5-10.1) Neutrophils (%) (Auto) % (45.0-75.0) Lymphocytes (%) (Auto) % (20.0-45.0) Monocytes (%) (Auto) % (1.0-10.0) Eosinophils (%) (Auto) % (0.0-3.0) Basophils (%) (Auto) % (0.0-2.0) Differential Total Cells Counted 100 Neutrophils % (Manual) 8 % (45-75) L Lymphocytes % (Manual) 78 % (20-45) H Monocytes % (Manual) 11 % (1-10) H Eosinophils % (Manual) 1 % (0-3) Basophils % (Manual) 1 % (0-2) Metamyelocytes % 1 % (0-0) H Band Neutrophils 0 % (0-8) Platelet Estimate Decreased L Platelet Morphology Normal Hypochromasia 1+ Anisocytosis 1+ Prothrombin Time 11.5 SEC (9.30-11.50) Prothromb Time International Ratio 1.1 (0.9-1.1) Sodium Level 133 MMOL/L (136-145) L Potassium Level 4.9 MMOL/L (3.5-5.1) Chloride Level 104 MMOL/L (98-107) Carbon Dioxide Level 16 MMOL/L (21-32) L Anion Gap 13 mmol/L (5-15) Blood Urea Nitrogen 21 mg/dL (7-18) H Creatinine 1.2 MG/DL (0.55-1.30) Estimat Glomerular Filtration Rate 44.4 mL/min (>60) Glucose Level 172 MG/DL (74-106) H Calcium Level 8.0 MG/DL (8.5-10.1) L Total Bilirubin 1.5 MG/DL (0.2-1.0) H Direct Bilirubin 1.0 MG/DL (0.0-0.3) H Aspartate Amino Transf (AST/SGOT) 203 U/L (15-37) H Alanine Aminotransferase (ALT/SGPT) 266 U/L (12-78) H Alkaline Phosphatase 761 U/L (46-116) H Total Protein 5.7 G/DL (6.4-8.2) L Albumin 1.8 G/DL (3.4-5.0) L Globulin 3.9 g/dL Albumin/Globulin Ratio 0.5 (1.0-2.7) L Microbiology Date/Time Source Procedure Growth Status 05/20/18 10:45 Lip Lower Gram Stain - Final Resulted 05/20/18 10:45 Lip Lower Wound Culture Pending Resulted Objective HEENT: Normocephalic, atraumatic, Pupils equally reactive to light and accommodation, EOMI. NECK: No JVD, no carotid bruit. CARDIOVASCULAR: Regular rate and rhythm. No murmurs, gallops or rubs. LUNGS: Clear to auscultation bilaterally. No crackles or Rhonchi. ABDOMEN: Soft and nontender. No organomegaly, + BS. EXTREMITIES: No cyanosis, clubbing or edema. Miller Mckeon MD May 21, 2018 21:59
--- NOTE | 2018-05-21 22:30 | NUR ---
NURSE NOTES: ABG results is forwarded to Dr. Landry and received new order for Bipap. Noted and carried out.
[2018-05-21] MEDS ORDERED: Albuterol ud Inhalation HHN SCH (23:00)
[2018-05-22] VITALS: BP 130/72
[2018-05-22] MEDS: NovoLOG Insulin Flexpen SUBQ SCH ×5 (00:16→21:43)
[2018-05-22] MEDS: Metoprolol 25mg tab ORAL SCH ×3 (00:17→21:42)
[2018-05-22] MEDS: LORazepam 1mg tab ORAL PRN (01:16)
[2018-05-22 04:00] VITALS: BP 134/66
--- NOTE | 2018-05-22 07:55 | NUR ---
HAND-OFF: Report given to WAYNE Foster.
[2018-05-22 08:00] VITALS: BP 135/76
[2018-05-22] MEDS: Pantoprazole Inj IVP SCH (08:13)
[2018-05-22] MEDS: Enoxaparin 80mg Inj SUBQ SCH (08:15)
--- NOTE | 2018-05-22 08:38 | General Progress Note ---
Assessment/Plan Assessment/Plan Assessment - DKA - Abnormal LFT - CMV/HSV/EBV/EZRA titers pending - will need liver biopsy if results negative - have asked for second opinion GI consult - Urolithiasis - Cholelithiasis, doubt CBD obstruction but will arrange EUS (ERCP if EUS (+)) for today - DM - CAD/CABG - Gout Recommendations - follow LFT - NPO - f/u CMV, HSV, EBV serology - lab called, no results yet (send outs) - EUS booked for Thursday Subjective ROS Limited/Unobtainable: Yes Allergies: Coded Allergies: SHELLFISH DERIVED (Verified Allergy, Unknown, swelling and itchiness, 05/14) Subjective skin rash Objective Last 24 Hour Vital Signs Date Time Temp Pulse Resp B/P (MAP) Pulse Ox O2 Delivery O2 Flow Rate FiO2 05/22/18 08:13 86 135/76 05/22/18 08:00 98.3 86 18 135/76 (95) 93 05/22/18 07:29 Room Air 21 05/22/18 07:29 76 22 Room Air 21 05/22/18 07:29 97 Room Air 21 05/22/18 05:13 72 24 96 Facial 40 05/22/18 04:50 4.0 36 05/22/18 04:00 93 05/22/18 04:00 97.0 100 19 134/66 (88) 98 05/22/18 02:58 68 27 97 Facial 40 05/22/18 00:51 65 38 98 Facial 40 05/22/18 00:17 100 162/81 05/22/18 00:00 98.9 99 20 130/72 (91) 98 05/22/18 00:00 137 05/21/18 23:50 58 43 98 Facial 40 05/21/18 21:09 Nasal Cannula 4.0 36 05/21/18 21:08 95 Nasal Cannula 4.0 36 05/21/18 21:08 105 26 Nasal Cannula 4.0 36 05/21/18 21:05 105 26 97 Nasal Cannula 4.0 36 05/21/18 20:55 115 26 95 Nasal Cannula 4.0 36 05/21/18 20:00 93 05/21/18 20:00 Nasal Cannula 2.0 05/21/18 20:00 99.2 100 19 162/81 (108) 98 05/21/18 16:00 90 05/21/18 16:00 Nasal Cannula 2.0 05/21/18 16:00 98.9 77 16 134/82 (99) 95 05/21/18 12:00 81 05/21/18 12:00 Nasal Cannula 2.0 05/21/18 12:00 97.9 75 16 128/59 (82) 100 05/21/18 08:39 92 139/72 Intake and Output 05/21/18 05/22/18 18:59 06:59 Intake Total 120 ml Balance 120 ml Intake Oral 120 ml # Voids 2 3 # Bowel Movements 4 1 Laboratory Tests 05/21/18 09:00: White Blood Count 3.4L, Red Blood Count 3.28L, Hemoglobin 8.7L, Hematocrit 27.1L , Mean Corpuscular Volume 83, Mean Corpuscular Hemoglobin 26.6L, Mean Corpuscular Hemoglobin Concent 32.1, Red Cell Distribution Width 16.4H, Platelet Count 117L, Mean Platelet Volume 7.0, Neutrophils (%) (Auto) , Lymphocytes (%) (Auto) , Monocytes (%) (Auto) , Eosinophils (%) (Auto) , Basophils (%) (Auto) , Differential Total Cells Counted 100, Neutrophils % ( Manual) 8L, Lymphocytes % (Manual) 78H, Monocytes % (Manual) 11H, Eosinophils % (Manual) 1, Basophils % (Manual) 1, Metamyelocytes % 1H, Band Neutrophils 0, Platelet Estimate DecreasedL, Platelet Morphology Normal, Hypochromasia 1+, Anisocytosis 1+, Prothrombin Time 11.5, Prothromb Time International Ratio 1.1, Sodium Level 133L, Potassium Level 4.9, Chloride Level 104, Carbon Dioxide Level 16L, Anion Gap 13, Blood Urea Nitrogen 21H, Creatinine 1.2, Estimat Glomerular Filtration Rate 44.4, Glucose Level 172H, Calcium Level 8.0L, Total Bilirubin 1.5H, Direct Bilirubin 1.0H, Aspartate Amino Transf (AST/SGOT) 203H, Alanine Aminotransferase (ALT/SGPT) 266H, Alkaline Phosphatase 761H, Total Protein 5.7L, Albumin 1.8L, Globulin 3.9, Albumin/Globulin Ratio 0.5L 05/21/18 22:42: Arterial Blood pH 7.360, Arterial Blood Partial Pressure CO2 22.6*L, Arterial Blood Partial Pressure O2 75.8, Arterial Blood HCO3 12.5*L, Arterial Blood Oxygen Saturation 94.5L, Arterial Blood Base Excess -11.2*L, Marlon Test Positive Height (Feet): 4 Height (Inches): 10.00 Weight (Pounds): 180 General Appearance: alert EENT: normal ENT inspection Neck: supple Cardiovascular: normal rate Respiratory/Chest: decreased breath sounds Abdomen: normal bowel sounds, non tender, soft Extremities: non-tender Neeraj Benito MD May 22, 2018 08:38
--- NOTE | 2018-05-22 10:28 | NUR ---
NURSE NOTES: per conversation with the patient this AM. patient stated that her rashes started during her 10 day trip to [facility], she also had fever on and off during her trip. went home and was admitted.
--- NOTE | 2018-05-22 11:07 | Infectious Diseases Prog Note ---
Assessment/Plan Assessment/Plan antibiotics : levoquin, micafungin, acyclovir, doxycycline A 1. pancreatitis 2. herpes of lip improving 3. diabetic ketoacidosis 4. increased LFT 5. fever improving 6. hypertension 7. fungal UTI 8. ? drug reaction improving P 1. continue acyclovir 5 more days 2. d/c levoquin, doxycycline 3. continue micafungin 1 more day 4. will follow up cultures Subjective Constitutional: Denies: fever, chills Respiratory: Reports: shortness of breath; Denies: dry cough Gastrointestinal/Abdominal: Denies: nausea, vomiting, diarrhea Musculoskeletal: Reports: pain Allergies: Coded Allergies: SHELLFISH DERIVED (Verified Allergy, Unknown, swelling and itchiness, 05/14) Objective Vital Signs Last 24 Hour Vital Signs Date Time Temp Pulse Resp B/P (MAP) Pulse Ox O2 Delivery O2 Flow Rate FiO2 05/22/18 09:00 Nasal Cannula 2.0 05/22/18 08:13 86 135/76 05/22/18 08:00 82 05/22/18 08:00 98.3 86 18 135/76 (95) 93 05/22/18 07:29 Room Air 21 05/22/18 07:29 76 22 Room Air 21 05/22/18 07:29 97 Room Air 21 05/22/18 05:13 72 24 96 Facial 40 05/22/18 04:50 4.0 36 05/22/18 04:00 93 05/22/18 04:00 97.0 100 19 134/66 (88) 98 05/22/18 02:58 68 27 97 Facial 40 05/22/18 00:51 65 38 98 Facial 40 05/22/18 00:17 100 162/81 05/22/18 00:00 98.9 99 20 130/72 (91) 98 05/22/18 00:00 137 05/21/18 23:50 58 43 98 Facial 40 05/21/18 21:09 Nasal Cannula 4.0 36 05/21/18 21:08 95 Nasal Cannula 4.0 36 05/21/18 21:08 105 26 Nasal Cannula 4.0 36 05/21/18 21:05 105 26 97 Nasal Cannula 4.0 36 05/21/18 20:55 115 26 95 Nasal Cannula 4.0 36 05/21/18 20:00 93 05/21/18 20:00 Nasal Cannula 2.0 05/21/18 20:00 99.2 100 19 162/81 (108) 98 05/21/18 16:00 90 05/21/18 16:00 Nasal Cannula 2.0 05/21/18 16:00 98.9 77 16 134/82 (99) 95 05/21/18 12:00 81 05/21/18 12:00 Nasal Cannula 2.0 05/21/18 12:00 97.9 75 16 128/59 (82) 100 Height (Feet): 4 Height (Inches): 10.00 Weight (Pounds): 180 HEENT: other - lip hyperpigmented decreased Respiratory/Chest: lungs clear Cardiovascular: normal rate, regular rhythm, no gallop/murmur Abdomen: soft, non tender Extremities: other - + edema Skin: rash - decreased erythema Microbiology Date/Time Source Procedure Growth Status 05/20/18 10:45 Lip Lower Gram Stain - Final Resulted 05/20/18 10:45 Wound Culture - Preliminary Rianna Albicans Usual Skin Rama Resulted Laboratory Tests Test 05/21/18 22:42 Arterial Blood pH 7.360 (7.350-7.450) Arterial Blood Partial Pressure CO2 22.6 mmHg (35.0-45.0) *L Arterial Blood Partial Pressure O2 75.8 mmHg (75.0-100.0) Arterial Blood HCO3 12.5 mmol/L (22.0-26.0) *L Arterial Blood Oxygen Saturation 94.5 % (95-100) L Arterial Blood Base Excess -11.2 (-2-2) *L Marlon Test Positive Current Medications Medications (Trade) Dose Ordered Sig/Ellen Route PRN Reason Start Time Stop Time Status Last Admin Dose Admin Acetaminophen (Tylenol) 650 mg Q4H PRN ORAL Mild Pain/Temp > 100.5 05/17/18 20:45 06/16/18 20:44 05/19/18 16:03 Acyclovir (Zovirax) 800 mg EVERY 8 HOURS ORAL 05/19/18 14:00 05/27/18 23:59 05/22/18 05:24 Al Hydroxide/Mg Hydroxide (Mylanta) 30 ml Q6H PRN ORAL Abdominal cramps 05/15/18 20:15 06/12/18 08:14 Albuterol Sulfate (Proventil) 2.5 mg Q4H PRN HHN Shortness of Breath 05/21/18 20:45 05/26/18 20:44 05/21/18 20:55 Dextrose (Dextrose 50%) 25 ml Q30M PRN IV Hypoglycemia 05/15/18 19:15 06/13/18 10:14 Dextrose (Dextrose 50%) 50 ml Q30M PRN IV Hypoglycemia 05/15/18 19:15 06/13/18 10:14 Doxycycline Monohydrate (Vibramycin) 100 mg EVERY 12 HOURS ORAL 05/20/18 10:37 05/27/18 10:36 05/22/18 08:13 Enoxaparin Sodium (Lovenox) 80 mg DAILY SUBQ 05/22/18 09:00 06/21/18 08:59 05/22/18 08:15 Insulin Aspart (NovoLOG) BEFORE MEALS AND HS SUBQ 05/15/18 21:00 06/13/18 11:29 05/22/18 05:26 Levofloxacin (Levaquin) 250 mg DAILY ORAL 05/18/18 09:00 05/22/18 23:59 05/22/18 08:13 Lorazepam (Ativan) 1 mg Q3H PRN ORAL For Anxiety 05/17/18 17:45 05/24/18 17:44 05/22/18 01:16 Magnesium Hydroxide (Mom) 30 ml DAILYPRN PRN ORAL Constipation 05/15/18 19:00 06/14/18 18:59 05/17/18 18:17 Metoprolol Tartrate (Lopressor) 25 mg Q12HR ORAL 05/15/18 21:00 06/14/18 17:59 05/22/18 08:13 Micafungin Sodium 100 mg/Sodium Chloride 110 ml @ 110 mls/hr Q24H IVPB 05/17/18 12:00 05/24/18 11:59 05/21/18 12:33 Pantoprazole (Protonix) 40 mg DAILY IVP 05/16/18 09:00 06/12/18 08:59 05/22/18 08:13 Khadra Melendez MD May 22, 2018 11:07
[2018-05-22] MEDS: Micafungin 100 MG in NS 110 ML IVPB SCH (11:53)
[2018-05-22 12:00] VITALS: BP 153/77
--- NOTE | 2018-05-22 12:24 | General Progress Note ---
Assessment/Plan Assessment/Plan Impression Diabetic ketoacidosis Anemia Transaminitis of unclear etiology Severe protein calorie malnutrition Evidence of pancreatitis, better Acute renal failure, improved Hyperglycemia Diabetes Hyponatremia Metabolic acidosis Hypercholesterolemia fever oral ulcers afib with RVR leukopenia attempt to dc EUS thursday ID recommendations noted rate control d/w sister impression, plan, and exam edited and reviewed in detail care discussed with RN Subjective Allergies: Coded Allergies: SHELLFISH DERIVED (Verified Allergy, Unknown, swelling and itchiness, 05/14) Subjective afib all noted weak oral care better skin improved Objective Last 24 Hour Vital Signs Date Time Temp Pulse Resp B/P (MAP) Pulse Ox O2 Delivery O2 Flow Rate FiO2 05/22/18 09:00 Nasal Cannula 2.0 05/22/18 08:13 86 135/76 05/22/18 08:00 82 05/22/18 08:00 98.3 86 18 135/76 (95) 93 05/22/18 07:29 Room Air 21 05/22/18 07:29 76 22 Room Air 21 05/22/18 07:29 97 Room Air 21 05/22/18 05:13 72 24 96 Facial 40 05/22/18 04:50 4.0 36 05/22/18 04:00 93 05/22/18 04:00 97.0 100 19 134/66 (88) 98 05/22/18 02:58 68 27 97 Facial 40 05/22/18 00:51 65 38 98 Facial 40 05/22/18 00:17 100 162/81 05/22/18 00:00 98.9 99 20 130/72 (91) 98 05/22/18 00:00 137 05/21/18 23:50 58 43 98 Facial 40 05/21/18 21:09 Nasal Cannula 4.0 36 05/21/18 21:08 95 Nasal Cannula 4.0 36 05/21/18 21:08 105 26 Nasal Cannula 4.0 36 05/21/18 21:05 105 26 97 Nasal Cannula 4.0 36 05/21/18 20:55 115 26 95 Nasal Cannula 4.0 36 05/21/18 20:00 93 05/21/18 20:00 Nasal Cannula 2.0 05/21/18 20:00 99.2 100 19 162/81 (108) 98 05/21/18 16:00 90 05/21/18 16:00 Nasal Cannula 2.0 2/1/19 16:00 98.9 77 16 134/82 (99) 95 Intake and Output 05/21/18 05/22/18 19:00 07:00 Intake Total 120 ml Balance 120 ml Intake Oral 120 ml # Voids 2 3 # Bowel Movements 4 1 Laboratory Tests 05/21/18 22:42: Arterial Blood pH 7.360, Arterial Blood Partial Pressure CO2 22.6*L, Arterial Blood Partial Pressure O2 75.8, Arterial Blood HCO3 12.5*L, Arterial Blood Oxygen Saturation 94.5L, Arterial Blood Base Excess -11.2*L, Marlon Test Positive Height (Feet): 4 Height (Inches): 10.00 Weight (Pounds): 180 Objective WDWN NAD clear breath sounds bilaterally without rhonchi or wheeze S1S2 iRRR without MRG NABS nontender no HSM no CCE nonfocal oral ulcers better dry alert Jesus Lew MD May 22, 2018 12:24
[2018-05-22 16:00] VITALS: BP 138/69
--- NOTE | 2018-05-22 19:11 | NUR ---
HAND-OFF: Report given to jose fitzpatrick.
--- NOTE | 2018-05-22 19:12 | NUR ---
NURSE NOTES: Received report from WAYNE Foster. Patient in bed asleep with no signs of acute distress. Respiration even and non labored on 2L NC. IV line patent and intact. VS stable. Bed in lowest position. All needs attended and met. Call light within reach. Will continue plan of care.
[2018-05-22 20:00] VITALS: BP 127/64
--- NOTE | 2018-05-22 22:00 | NUR ---
NURSE NOTES: Patient refused Bipap. No SOB noted. Patient is asleep in bed with no acute distress.
[2018-05-23] VITALS: BP 131/67
--- NOTE | 2018-05-23 01:06 | Cardiology Progress Note ---
Assessment/Plan Assessment/Plan LATE ENTRY NOTE DOS: May 22, 2018 Time of Encounter: 23:39 1. Paroxysmal atrial fibrillation, due to CHADS-VASC score of 5, we require to keep anticoagulated, on metoprolol. 2. Hx of CAD, s/p CABG, ASA , atorvastatin and metoprolol. No wall motion abnormalities on Echo. LVEF ~55%. 3. Sinus tachycardia, resolved, due to hypovolemia. 4. DKA, resolved. 5. DM, non-compliant with medications. 6. Hx of HTN, controlled with metoprolol. 7. Severe pulmonary HTN. Subjective Subjective Sinus rhythm at rate of 75. On room air. Objective Last 24 Hour Vital Signs Date Time Temp Pulse Resp B/P (MAP) Pulse Ox O2 Delivery O2 Flow Rate FiO2 05/22/18 21:42 75 127/64 05/22/18 19:33 98 Room Air 21 05/22/18 19:33 77 20 Nasal Cannula 3.0 32 05/22/18 19:33 Nasal Cannula 3.0 32 05/22/18 16:00 96.8 77 20 138/69 (92) 98 05/22/18 16:00 74 05/22/18 12:00 69 05/22/18 12:00 97.5 78 20 153/77 (102) 100 05/22/18 09:00 Nasal Cannula 2.0 05/22/18 08:13 86 135/76 05/22/18 08:00 82 05/22/18 08:00 98.3 86 18 135/76 (95) 93 05/22/18 07:29 Room Air 21 05/22/18 07:29 76 22 Room Air 21 05/22/18 07:29 97 Room Air 21 05/22/18 05:13 72 24 96 Facial 40 05/22/18 04:50 4.0 36 05/22/18 04:00 93 05/22/18 04:00 97.0 100 19 134/66 (88) 98 05/22/18 04:00 2.0 05/22/18 02:58 68 27 97 Facial 40 Intake and Output 05/22/18 05/23/18 19:00 07:00 Intake Total 380 ml Output Total 200 ml Balance 180 ml Intake Oral 270 ml IV Total 110 ml Output Urine Total 200 ml # Bowel Movements 2 2D Echo: EF55%,Mild LVH,Mod MR,Mild AR,RVSP 67 mmHg (severe PHT),Restrictive LV phys Microbiology Date/Time Source Procedure Growth Status 05/20/18 10:45 Lip Lower Gram Stain - Final Resulted 05/20/18 10:45 Wound Culture - Preliminary Rianna Albicans Usual Skin Rama Resulted Objective HEENT: Normocephalic, atraumatic, Pupils equally reactive to light and accommodation, EOMI. NECK: No JVD, no carotid bruit. CARDIOVASCULAR: Regular rate and rhythm. No murmurs, gallops or rubs. LUNGS: Clear to auscultation bilaterally. No crackles or Rhonchi. ABDOMEN: Soft and nontender. No organomegaly, + BS. EXTREMITIES: No cyanosis, clubbing or edema. Miller Mckeon MD May 23, 2018 01:06
[2018-05-23 04:00] VITALS: BP 123/62
[2018-05-23] MEDS: NovoLOG Insulin Flexpen SUBQ SCH ×4 (06:30→21:12)
--- NOTE | 2018-05-23 07:38 | NUR ---
HAND-OFF: Report given to WAYNE Murillo. Patient stable
--- NOTE | 2018-05-23 07:45 | NUR ---
NURSE NOTES: Pt received from Erasmo Puente RN alert and oriented x4 with no complaints or s/s of pain, SOB, or n/v. Bed in lowest position, call light and belongings within reach. IV site asymptomatic and patent, on saline lock. Pt currently sitting up in bed eating breakfast, asked to be given a partial bath after eating. RN complied and stated that she will be cleaned as soon as possible, pt verbalized understanding.
[2018-05-23 07:49] LABS: HEMATOCRIT 30.1 % (37.0-47.0); HEMOGLOBIN 9.4 G/DL (12.0-16.0); MEAN CORPUSCULAR VOLUME 84 FL (80-99); PLATELET COUNT 164 K/UL (150-450); RED CELL DISTRIBUTION WIDTH 17.8 % (11.6-14.8); WHITE BLOOD COUNT 4.4 K/UL (4.8-10.8)
[2018-05-23 08:00] VITALS: BP 145/68
--- NOTE | 2018-05-23 08:08 | General Progress Note ---
Assessment/Plan Assessment/Plan Assessment - DKA - Abnormal LFT - CMV/HSV/EBV/EZRA titers pending - will need liver biopsy if results negative - have asked for second opinion GI consult - Urolithiasis - Cholelithiasis, doubt CBD obstruction but will arrange EUS (ERCP if EUS (+)) for today - DM - CAD/CABG - Gout Recommendations - follow LFT - NPO - f/u CMV, HSV, EBV serology - lab called, no results yet (send outs) - EUS booked for Thursday Subjective ROS Limited/Unobtainable: Yes Allergies: Coded Allergies: SHELLFISH DERIVED (Verified Allergy, Unknown, swelling and itchiness, 05/14) Subjective skin rash Objective Last 24 Hour Vital Signs Date Time Temp Pulse Resp B/P (MAP) Pulse Ox O2 Delivery O2 Flow Rate FiO2 05/23/18 07:58 68 20 Nasal Cannula 3.0 32 05/23/18 07:58 Nasal Cannula 3.0 32 05/23/18 07:58 99 Nasal Cannula 3.0 32 05/23/18 04:00 98.2 77 18 123/62 (82) 98 05/23/18 04:00 68 05/23/18 04:00 2.0 05/23/18 00:00 97.3 67 18 131/67 (88) 95 05/23/18 00:00 65 05/23/18 00:00 2.0 05/22/18 21:42 75 127/64 05/22/18 21:00 Nasal Cannula 2.0 05/22/18 20:00 68 05/22/18 20:00 97.2 75 18 127/64 (85) 98 05/22/18 20:00 2.0 05/22/18 19:33 98 Room Air 21 05/22/18 19:33 77 20 Nasal Cannula 3.0 32 05/22/18 19:33 Nasal Cannula 3.0 32 05/22/18 16:00 96.8 77 20 138/69 (92) 98 05/22/18 16:00 74 05/22/18 12:00 69 05/22/18 12:00 97.5 78 20 153/77 (102) 100 05/22/18 09:00 Nasal Cannula 2.0 05/22/18 08:13 86 135/76 Intake and Output 05/22/18 05/23/18 19:00 07:00 Intake Total 380 ml Output Total 200 ml Balance 180 ml Intake Oral 270 ml IV Total 110 ml Output Urine Total 200 ml # Voids 3 # Bowel Movements 2 Laboratory Tests 05/23/18 06:40: White Blood Count 4.4L, Red Blood Count 3.60L, Hemoglobin 9.4L, Hematocrit 30.1L , Mean Corpuscular Volume 84, Mean Corpuscular Hemoglobin 26.1L, Mean Corpuscular Hemoglobin Concent 31.3L, Red Cell Distribution Width 17.8H, Platelet Count 164, Mean Platelet Volume 7.0, Neutrophils (%) (Auto) , Lymphocytes (%) (Auto) , Monocytes (%) (Auto) , Eosinophils (%) (Auto) , Basophils (%) (Auto) , Neutrophils % (Manual) [Pending], Lymphocytes % (Manual) [Pending], Platelet Estimate [Pending], Platelet Morphology [Pending], Sodium Level [Pending], Potassium Level [Pending], Chloride Level [Pending], Carbon Dioxide Level [Pending], Blood Urea Nitrogen [Pending], Creatinine [Pending], Estimat Glomerular Filtration Rate [Pending], Glucose Level [Pending], Calcium Level [Pending], Total Bilirubin [Pending], Aspartate Amino Transf (AST/SGOT) [ Pending], Alanine Aminotransferase (ALT/SGPT) [Pending], Alkaline Phosphatase [ Pending], Total Protein [Pending], Albumin [Pending], Globulin [Pending] Height (Feet): 4 Height (Inches): 10.00 Weight (Pounds): 181 General Appearance: alert EENT: PERRL/EOMI Neck: supple Cardiovascular: normal rate Respiratory/Chest: decreased breath sounds Abdomen: normal bowel sounds, non tender, soft Extremities: non-tender Neeraj Benito MD May 23, 2018 08:08
[2018-05-23 08:19] LABS: ALANINE AMINOTRANSFERASE 249 U/L (12-78); ALBUMIN/GLOBULIN RATIO 0.5 (1.0-2.7); ALKALINE PHOSPHATASE 664 U/L (46-116); ANION GAP 10 mmol/L (5-15); ASPARTATE AMINO TRANSFERASE 102 U/L (15-37); BILIRUBIN,TOTAL 1.7 MG/DL (0.2-1.0); BLOOD UREA NITROGEN 26 mg/dL (7-18); CALCIUM 8.5 MG/DL (8.5-10.1); CARBON DIOXIDE 20 MMOL/L (21-32); CHLORIDE 107 MMOL/L (98-107); CREATININE 1.3 MG/DL (0.55-1.30); POTASSIUM 5.1 MMOL/L (3.5-5.1); SODIUM 137 MMOL/L (136-145)
[2018-05-23] MEDS: Pantoprazole Inj IVP SCH (08:55)
[2018-05-23] MEDS: Enoxaparin 80mg Inj SUBQ SCH (08:57)
[2018-05-23] MEDS: Metoprolol 25mg tab ORAL SCH ×2 (08:57→21:10)
--- NOTE | 2018-05-23 10:48 | Infectious Diseases Prog Note ---
Assessment/Plan Assessment/Plan A 1. pancreatitis 2. herpes of lip 3. diabetic ketoacidosis 4. increased LFT 5. fever 6. hypertension 7. Pancytopenia 10. Fungal UTI P 1. continue acyclovir 4 more days 2. Discontinue micafungin Subjective ROS Limited/Unobtainable: Yes Constitutional: Reports: no symptoms Allergies: Coded Allergies: SHELLFISH DERIVED (Verified Allergy, Unknown, swelling and itchiness, 05/14) Objective Vital Signs Last 24 Hour Vital Signs Date Time Temp Pulse Resp B/P (MAP) Pulse Ox O2 Delivery O2 Flow Rate FiO2 05/23/18 09:00 Nasal Cannula 2.0 05/23/18 08:57 66 145/68 05/23/18 08:00 2.0 05/23/18 08:00 97.8 66 19 145/68 (93) 100 05/23/18 08:00 71 05/23/18 07:58 68 20 Nasal Cannula 3.0 32 05/23/18 07:58 Nasal Cannula 3.0 32 05/23/18 07:58 99 Nasal Cannula 3.0 32 05/23/18 04:00 98.2 77 18 123/62 (82) 98 05/23/18 04:00 68 05/23/18 04:00 2.0 05/23/18 00:00 97.3 67 18 131/67 (88) 95 05/23/18 00:00 65 05/23/18 00:00 2.0 05/22/18 21:42 75 127/64 05/22/18 21:00 Nasal Cannula 2.0 05/22/18 20:00 68 05/22/18 20:00 97.2 75 18 127/64 (85) 98 05/22/18 20:00 2.0 05/22/18 19:33 98 Room Air 21 05/22/18 19:33 77 20 Nasal Cannula 3.0 32 05/22/18 19:33 Nasal Cannula 3.0 32 05/22/18 16:00 96.8 77 20 138/69 (92) 98 05/22/18 16:00 74 05/22/18 12:00 69 05/22/18 12:00 97.5 78 20 153/77 (102) 100 Height (Feet): 4 Height (Inches): 10.00 Weight (Pounds): 181 General Appearance: no acute distress HEENT: other - lips lesions are resolving Cardiovascular: normal rate Abdomen: soft, non tender Extremities: no edema Neurologic/Psychiatric: other - sleeping Laboratory Tests Test 05/23/18 06:40 White Blood Count 4.4 K/UL (4.8-10.8) L Red Blood Count 3.60 M/UL (4.20-5.40) L Hemoglobin 9.4 G/DL (12.0-16.0) L Hematocrit 30.1 % (37.0-47.0) L Mean Corpuscular Volume 84 FL (80-99) Mean Corpuscular Hemoglobin 26.1 PG (27.0-31.0) L Mean Corpuscular Hemoglobin Concent 31.3 G/DL (32.0-36.0) L Red Cell Distribution Width 17.8 % (11.6-14.8) H Platelet Count 164 K/UL (150-450) Mean Platelet Volume 7.0 FL (6.5-10.1) Neutrophils (%) (Auto) % (45.0-75.0) Lymphocytes (%) (Auto) % (20.0-45.0) Monocytes (%) (Auto) % (1.0-10.0) Eosinophils (%) (Auto) % (0.0-3.0) Basophils (%) (Auto) % (0.0-2.0) Differential Total Cells Counted 100 Neutrophils % (Manual) 32 % (45-75) L Lymphocytes % (Manual) 44 % (20-45) Monocytes % (Manual) 23 % (1-10) H Eosinophils % (Manual) 1 % (0-3) Basophils % (Manual) 0 % (0-2) Band Neutrophils 0 % (0-8) Platelet Estimate Adequate Platelet Morphology Normal Hypochromasia 1+ Anisocytosis 2+ Sodium Level 137 MMOL/L (136-145) Potassium Level 5.1 MMOL/L (3.5-5.1) Chloride Level 107 MMOL/L (98-107) Carbon Dioxide Level 20 MMOL/L (21-32) L Anion Gap 10 mmol/L (5-15) Blood Urea Nitrogen 26 mg/dL (7-18) H Creatinine 1.3 MG/DL (0.55-1.30) Estimat Glomerular Filtration Rate 40.5 mL/min (>60) Glucose Level 87 MG/DL (74-106) Calcium Level 8.5 MG/DL (8.5-10.1) Total Bilirubin 1.7 MG/DL (0.2-1.0) H Direct Bilirubin 1.0 MG/DL (0.0-0.3) H Aspartate Amino Transf (AST/SGOT) 102 U/L (15-37) H Alanine Aminotransferase (ALT/SGPT) 249 U/L (12-78) H Alkaline Phosphatase 664 U/L (46-116) H Total Protein 6.2 G/DL (6.4-8.2) L Albumin 2.0 G/DL (3.4-5.0) L Globulin 4.2 g/dL Albumin/Globulin Ratio 0.5 (1.0-2.7) L Current Medications Medications (Trade) Dose Ordered Sig/Ellen Route PRN Reason Start Time Stop Time Status Last Admin Dose Admin Acetaminophen (Tylenol) 650 mg Q4H PRN ORAL Mild Pain/Temp > 100.5 05/17/18 20:45 06/16/18 20:44 05/19/18 16:03 Acyclovir (Zovirax) 800 mg EVERY 8 HOURS ORAL 05/19/18 14:00 05/27/18 23:59 05/23/18 06:45 Al Hydroxide/Mg Hydroxide (Mylanta) 30 ml Q6H PRN ORAL Abdominal cramps 05/15/18 20:15 06/12/18 08:14 Albuterol Sulfate (Proventil) 2.5 mg Q4H PRN HHN Shortness of Breath 05/21/18 20:45 05/26/18 20:44 05/21/18 20:55 Dextrose (Dextrose 50%) 25 ml Q30M PRN IV Hypoglycemia 05/15/18 19:15 06/13/18 10:14 Dextrose (Dextrose 50%) 50 ml Q30M PRN IV Hypoglycemia 05/15/18 19:15 06/13/18 10:14 Enoxaparin Sodium (Lovenox) 80 mg DAILY SUBQ 05/22/18 09:00 06/21/18 08:59 05/23/18 08:57 Insulin Aspart (NovoLOG) BEFORE MEALS AND HS SUBQ 05/15/18 21:00 06/13/18 11:29 05/22/18 21:43 Lorazepam (Ativan) 1 mg Q3H PRN ORAL For Anxiety 05/17/18 17:45 05/24/18 17:44 05/22/18 01:16 Magnesium Hydroxide (Mom) 30 ml DAILYPRN PRN ORAL Constipation 05/15/18 19:00 06/14/18 18:59 05/17/18 18:17 Metoprolol Tartrate (Lopressor) 25 mg Q12HR ORAL 05/15/18 21:00 06/14/18 17:59 05/23/18 08:57 Micafungin Sodium 100 mg/Sodium Chloride 110 ml @ 110 mls/hr Q24H IVPB 05/17/18 12:00 05/24/18 11:59 05/22/18 11:53 Pantoprazole (Protonix) 40 mg DAILY IVP 05/16/18 09:00 06/12/18 08:59 05/23/18 08:55 Mahesh Tejada MD May 23, 2018 10:48
[2018-05-23 12:00] VITALS: BP 134/66
[2018-05-23 13:27] LABS: FERRITIN 1533 NG/ML (8-388); LACTATE DEHYDROGENASE 313 U/L (81-234)
[2018-05-23 13:48] LABS: % IRON SATURATION 112 % (15-50); IRON 158 ug/dL (50-175); TOTAL IRON BINDING CAPACITY 141 ug/dL (250-450)
--- NOTE | 2018-05-23 13:51 | General Progress Note ---
Assessment/Plan Assessment/Plan Impression Diabetic ketoacidosis Anemia Transaminitis of unclear etiology Severe protein calorie malnutrition Evidence of pancreatitis, better Acute renal failure, improved Hyperglycemia Diabetes Hyponatremia Metabolic acidosis Hypercholesterolemia fever oral ulcers afib with RVR leukopenia attempt to dc EUS thursday ID recommendations noted rate control d/w niece impression, plan, and exam edited and reviewed in detail care discussed with RN Subjective Allergies: Coded Allergies: SHELLFISH DERIVED (Verified Allergy, Unknown, swelling and itchiness, 05/14) Subjective consultants appreciated weak oral care better skin improved Objective Last 24 Hour Vital Signs Date Time Temp Pulse Resp B/P (MAP) Pulse Ox O2 Delivery O2 Flow Rate FiO2 05/23/18 12:00 2.0 05/23/18 12:00 67 05/23/18 12:00 97.0 67 20 134/66 (88) 100 05/23/18 09:00 Nasal Cannula 2.0 05/23/18 08:57 66 145/68 05/23/18 08:00 2.0 05/23/18 08:00 97.8 66 19 145/68 (93) 100 05/23/18 08:00 71 05/23/18 07:58 68 20 Nasal Cannula 3.0 32 05/23/18 07:58 Nasal Cannula 3.0 32 05/23/18 07:58 99 Nasal Cannula 3.0 32 05/23/18 04:00 98.2 77 18 123/62 (82) 98 05/23/18 04:00 68 05/23/18 04:00 2.0 05/23/18 00:00 97.3 67 18 131/67 (88) 95 05/23/18 00:00 65 05/23/18 00:00 2.0 05/22/18 21:42 75 127/64 05/22/18 21:00 Nasal Cannula 2.0 05/22/18 20:00 68 05/22/18 20:00 97.2 75 18 127/64 (85) 98 05/22/18 20:00 2.0 05/22/18 19:33 98 Room Air 21 05/22/18 19:33 77 20 Nasal Cannula 3.0 32 05/22/18 19:33 Nasal Cannula 3.0 32 05/22/18 16:00 96.8 77 20 138/69 (92) 98 05/22/18 16:00 74 Intake and Output 05/22/18 05/23/18 18:59 06:59 Intake Total 380 ml Output Total 200 ml Balance 180 ml Intake Oral 270 ml IV Total 110 ml Output Urine Total 200 ml # Voids 3 # Bowel Movements 2 Laboratory Tests 05/23/18 04:40: Reticulocyte Count [Pending], Iron Level 158, Total Iron Binding Capacity 141L, Percent Iron Saturation 112H, Unsaturated Iron Binding -17L, Ferritin 1533H, Lactate Dehydrogenase 313H, Vitamin B12 Level 1951H, Folate 19.5 05/23/18 06:40: White Blood Count 4.4L, Red Blood Count 3.60L, Hemoglobin 9.4L, Hematocrit 30.1L , Mean Corpuscular Volume 84, Mean Corpuscular Hemoglobin 26.1L, Mean Corpuscular Hemoglobin Concent 31.3L, Red Cell Distribution Width 17.8H, Platelet Count 164, Mean Platelet Volume 7.0, Neutrophils (%) (Auto) , Lymphocytes (%) (Auto) , Monocytes (%) (Auto) , Eosinophils (%) (Auto) , Basophils (%) (Auto) , Differential Total Cells Counted 100, Neutrophils % ( Manual) 32L, Lymphocytes % (Manual) 44, Monocytes % (Manual) 23H, Eosinophils % (Manual) 1, Basophils % (Manual) 0, Band Neutrophils 0, Platelet Estimate Adequate, Platelet Morphology Normal, Hypochromasia 1+, Anisocytosis 2+, Sodium Level 137, Potassium Level 5.1, Chloride Level 107, Carbon Dioxide Level 20L, Anion Gap 10, Blood Urea Nitrogen 26H, Creatinine 1.3, Estimat Glomerular Filtration Rate 40.5, Glucose Level 87, Calcium Level 8.5, Total Bilirubin 1.7H , Direct Bilirubin 1.0H, Aspartate Amino Transf (AST/SGOT) 102H, Alanine Aminotransferase (ALT/SGPT) 249H, Alkaline Phosphatase 664H, Total Protein 6.2L , Albumin 2.0L, Globulin 4.2, Albumin/Globulin Ratio 0.5L Height (Feet): 4 Height (Inches): 10.00 Weight (Pounds): 181 Objective WDWN NAD clear breath sounds bilaterally without rhonchi or wheeze S1S2 iRRR without MRG NABS nontender no HSM no CCE nonfocal oral ulcers better dry alert Jesus Lew MD May 23, 2018 13:51
--- NOTE | 2018-05-23 15:01 | NUR ---
PT Note PT melissa completed, treatment initiated. Patient was able to ambulate ~50 ft with the FWW. Patient needs PT services to increase muscle strength and balance to improve muscle strength and balance to improve her functional mobility and gait. Addendum: 05/23/18 at 1502 by OSCAR AGUILAR PT Amended: Links added.
[2018-05-23 16:00] VITALS: BP 143/71
--- NOTE | 2018-05-23 16:22 | General Progress Note ---
Assessment/Plan Assessment/Plan Assessment and Recs # Pancytopenia -- appears that initial hep and hiv are negative though final results to follow, liver shows no major hsm or cirrhosis, may consider meds or bone marrow process, smear reviewed --> this pancytopenia is acute in onset, over last several days, thus most likely abx infection related --> query meds, review with ID, is on micafungin now, monitor counts closely --> if no other cause and/or worsens, may consider flow cytometry or a bone marrow biopsy --> nepogen 300mcg sq to maintain anc >1500 --> wbc trend : 1.7-->4.3-->3.1-->3.4 # Anemia of chronic disease - monitor anemia panel --> hemolysis does not appear to be the case --> anemia panel reviewed -->hgb trend: 8.3-->9.2-->8.9-->8.7 # Paroxysmal atrial fibrillation, due to CHADS-VASC score of 5, we require to keep anticoagulated, on metoprolol --> continue on apixaban # Hx of CAD, s/p CABG, ASA , atorvastatin and metoprolol. No wall motion abnormalities on Echo. LVEF ~55%. --> appreciate cards recs # Sinus tachycardia due to hypovolemia, resolved. # DKA, resolved. # DM, non-compliant with medications. # Hx of HTN, controlled with metoprolol. # pancreatitis # increased LFT The timing of this note does not necessarily reflect the time of the patient was seen. Greatly appreciate consultation! Subjective Constitutional: Denies: no symptoms, chills, diaphoresis, fever, malaise, weakness, other HEENT: Denies: no symptoms, eye pain, blurred vision, tearing, double vision, ear pain, ear discharge, nose pain, nose congestion, throat pain, throat swelling, mouth pain, mouth swelling, other Cardiovascular: Denies: no symptoms, chest pain, edema, irregular heart rate, lightheadedness, palpitations, syncope, other Respiratory: Denies: no symptoms, cough, orthopnea, shortness of breath, SOB with excertion, SOB at rest, sputum, stridor, wheezing, other Gastrointestinal/Abdominal: Denies: no symptoms, abdomen distended, abdominal pain, black stools, tarry stools, blood in stool, constipated, diarrhea, difficulty swallowing, nausea, poor appetite, poor fluid intake, rectal bleeding , vomiting, other Neurologic/Psychiatric: Denies: no symptoms, anxiety, depressed, emotional problems, headache, numbness, paresthesia, pre-existing deficit, seizure, tingling, tremors, weakness, other Endocrine: Denies: no symptoms, excessive sweating, flushing, intolerance to cold, intolerance to heat, increased hunger, increased thirst, increased urine, unexplained weight gain, unexplained weight loss, other Allergies: Coded Allergies: SHELLFISH DERIVED (Verified Allergy, Unknown, swelling and itchiness, 05/14) Subjective 05/18: Pt is awake and comfortable, no events, leukopenia improved, wbc 4.3, plt 151 05/19: seen by bedside, awake, comfortable, plt 122 05/20: Pt is awake and comfortable, no events 05/21: Pt is seen in the room, resting in bed, no fevers or chills, wbc 8.7, plt 117 05/23: Pt is resting in bed, awake, comfortable, no fevers or chills, no acute distress. Objective Last 24 Hour Vital Signs Date Time Temp Pulse Resp B/P (MAP) Pulse Ox O2 Delivery O2 Flow Rate FiO2 05/23/18 16:00 2.0 05/23/18 12:00 2.0 05/23/18 12:00 67 05/23/18 12:00 97.0 67 20 134/66 (88) 100 05/23/18 09:00 Nasal Cannula 2.0 05/23/18 08:57 66 145/68 05/23/18 08:00 2.0 05/23/18 08:00 97.8 66 19 145/68 (93) 100 05/23/18 08:00 71 05/23/18 07:58 68 20 Nasal Cannula 3.0 32 05/23/18 07:58 Nasal Cannula 3.0 32 05/23/18 07:58 99 Nasal Cannula 3.0 32 05/23/18 04:00 98.2 77 18 123/62 (82) 98 05/23/18 04:00 68 05/23/18 04:00 2.0 05/23/18 00:00 97.3 67 18 131/67 (88) 95 05/23/18 00:00 65 05/23/18 00:00 2.0 05/22/18 21:42 75 127/64 05/22/18 21:00 Nasal Cannula 2.0 05/22/18 20:00 68 05/22/18 20:00 97.2 75 18 127/64 (85) 98 05/22/18 20:00 2.0 05/22/18 19:33 98 Room Air 21 05/22/18 19:33 77 20 Nasal Cannula 3.0 32 05/22/18 19:33 Nasal Cannula 3.0 32 Intake and Output 05/22/18 05/23/18 19:00 07:00 Intake Total 380 ml Output Total 200 ml Balance 180 ml Intake Oral 270 ml IV Total 110 ml Output Urine Total 200 ml # Voids 3 # Bowel Movements 2 Laboratory Tests 05/23/18 04:40: Reticulocyte Count 3.4H, Iron Level 158, Total Iron Binding Capacity 141L, Percent Iron Saturation 112H, Unsaturated Iron Binding -17L, Ferritin 1533H, Lactate Dehydrogenase 313H, Vitamin B12 Level 1951H, Folate 19.5 05/23/18 06:40: White Blood Count 4.4L, Red Blood Count 3.60L, Hemoglobin 9.4L, Hematocrit 30.1L , Mean Corpuscular Volume 84, Mean Corpuscular Hemoglobin 26.1L, Mean Corpuscular Hemoglobin Concent 31.3L, Red Cell Distribution Width 17.8H, Platelet Count 164, Mean Platelet Volume 7.0, Neutrophils (%) (Auto) , Lymphocytes (%) (Auto) , Monocytes (%) (Auto) , Eosinophils (%) (Auto) , Basophils (%) (Auto) , Differential Total Cells Counted 100, Neutrophils % ( Manual) 32L, Lymphocytes % (Manual) 44, Monocytes % (Manual) 23H, Eosinophils % (Manual) 1, Basophils % (Manual) 0, Band Neutrophils 0, Platelet Estimate Adequate, Platelet Morphology Normal, Polychromasia Occasional, Hypochromasia 1+ , Anisocytosis 2+, Sodium Level 137, Potassium Level 5.1, Chloride Level 107, Carbon Dioxide Level 20L, Anion Gap 10, Blood Urea Nitrogen 26H, Creatinine 1.3 , Estimat Glomerular Filtration Rate 40.5, Glucose Level 87, Calcium Level 8.5, Total Bilirubin 1.7H, Direct Bilirubin 1.0H, Aspartate Amino Transf (AST/SGOT) 102H, Alanine Aminotransferase (ALT/SGPT) 249H, Alkaline Phosphatase 664H, Total Protein 6.2L, Albumin 2.0L, Globulin 4.2, Albumin/Globulin Ratio 0.5L, Homocystine [Pending], Cytomegalovirus DNA PCR copies/ml [Pending], Cytomegalovirus DNA PCR log10 [Pending] Height (Feet): 4 Height (Inches): 10.00 Weight (Pounds): 181 Objective PHYSICAL EXAMINATION: GENERAL: Pleasant German woman seen in the ICU. HEENT: Normocephalic and atraumatic. Sclerae anicteric. Oropharynx clear. NECK: Supple. CHEST: Clear to auscultation. CARDIOVASCULAR: Revealed regular rate. ABDOMEN: Soft. Good bowel sounds. There is no organomegaly or tenderness. Anterior chest and abdomen scars were as expected. EXTREMITIES: Revealed no edema. Armando Bowen MD May 23, 2018 16:22
--- NOTE | 2018-05-23 19:15 | NUR ---
HAND-OFF: Report given to Lizzie Pruitt RN.
--- NOTE | 2018-05-23 19:42 | NUR ---
NURSE NOTES: RECEIVED PATIENT RESTING IN BED, NO COMPLAINTS OF PAIN AT THIS TIME. FALL PRECAUTIONS IN PLACE: CALL LIGHT, BED SIDE TABLE AND COMMODE WITHIN REACH, BED IN LOW POSITION AND BED ALARM ON. INSTRUCTED PATIENT ON NPO STATUS AFTER MIDNIGHT, PATIENT VERBALIZED UNDERSTANDING. PLAN OF CARE REVIEWED.
[2018-05-23 20:00] VITALS: BP 142/72
--- NOTE | 2018-05-23 21:44 | Cardiology Progress Note ---
Assessment/Plan Assessment/Plan 1. Paroxysmal atrial fibrillation, due to CHADS-VASC score of 5, continue enoxaparin, on metoprolol. 2. Hx of CAD, s/p CABG, ASA , atorvastatin and metoprolol. No wall motion abnormalities on Echo. LVEF ~55%. 3. Sinus tachycardia, resolved, due to hypovolemia. 4. DKA, resolved. 5. DM, non-compliant with medications. 6. Hx of HTN, controlled with metoprolol. 7. Severe pulmonary HTN. Subjective Subjective Sinus rhythm at rate of 76. Objective Last 24 Hour Vital Signs Date Time Temp Pulse Resp B/P (MAP) Pulse Ox O2 Delivery O2 Flow Rate FiO2 05/23/18 21:10 76 142/72 05/23/18 20:00 98.8 76 24 142/72 (95) 100 05/23/18 20:00 76 05/23/18 19:40 98 Nasal Cannula 3.0 32 05/23/18 19:40 76 20 Nasal Cannula 3.0 32 05/23/18 19:40 Nasal Cannula 3.0 32 05/23/18 16:00 97.7 69 20 143/71 (95) 97 05/23/18 16:00 72 05/23/18 16:00 2.0 05/23/18 12:00 2.0 05/23/18 12:00 67 05/23/18 12:00 97.0 67 20 134/66 (88) 100 05/23/18 09:00 Nasal Cannula 2.0 05/23/18 08:57 66 145/68 05/23/18 08:00 2.0 05/23/18 08:00 97.8 66 19 145/68 (93) 100 05/23/18 08:00 71 05/23/18 07:58 68 20 Nasal Cannula 3.0 32 05/23/18 07:58 Nasal Cannula 3.0 32 05/23/18 07:58 99 Nasal Cannula 3.0 32 05/23/18 04:00 98.2 77 18 123/62 (82) 98 05/23/18 04:00 68 05/23/18 04:00 2.0 05/23/18 00:00 97.3 67 18 131/67 (88) 95 05/23/18 00:00 65 05/23/18 00:00 2.0 Intake and Output 05/22/18 05/23/18 19:00 07:00 Intake Total 380 ml Output Total 200 ml Balance 180 ml Intake Oral 270 ml IV Total 110 ml Output Urine Total 200 ml # Voids 3 # Bowel Movements 2 2D Echo: EF55%,Mild LVH,Mod MR,Mild AR,RVSP 67 mmHg (severe PHT),Restrictive LV phys Laboratory Tests Test 05/23/18 04:40 05/23/18 06:40 Reticulocyte Count 3.4 % (0.0-2.0) H Iron Level 158 ug/dL (50-175) Total Iron Binding Capacity 141 ug/dL (250-450) L Percent Iron Saturation 112 % (15-50) H Unsaturated Iron Binding -17 ug/dL (112-346) L Ferritin 1533 NG/ML (8-388) H Lactate Dehydrogenase 313 U/L (81-234) H Vitamin B12 Level 1951 PG/ML (193-986) H Folate 19.5 NG/ML (8.6-58.9) White Blood Count 4.4 K/UL (4.8-10.8) L Red Blood Count 3.60 M/UL (4.20-5.40) L Hemoglobin 9.4 G/DL (12.0-16.0) L Hematocrit 30.1 % (37.0-47.0) L Mean Corpuscular Volume 84 FL (80-99) Mean Corpuscular Hemoglobin 26.1 PG (27.0-31.0) L Mean Corpuscular Hemoglobin Concent 31.3 G/DL (32.0-36.0) L Red Cell Distribution Width 17.8 % (11.6-14.8) H Platelet Count 164 K/UL (150-450) Mean Platelet Volume 7.0 FL (6.5-10.1) Neutrophils (%) (Auto) % (45.0-75.0) Lymphocytes (%) (Auto) % (20.0-45.0) Monocytes (%) (Auto) % (1.0-10.0) Eosinophils (%) (Auto) % (0.0-3.0) Basophils (%) (Auto) % (0.0-2.0) Differential Total Cells Counted 100 Neutrophils % (Manual) 32 % (45-75) L Lymphocytes % (Manual) 44 % (20-45) Monocytes % (Manual) 23 % (1-10) H Eosinophils % (Manual) 1 % (0-3) Basophils % (Manual) 0 % (0-2) Band Neutrophils 0 % (0-8) Platelet Estimate Adequate Platelet Morphology Normal Polychromasia Occasional Hypochromasia 1+ Anisocytosis 2+ Sodium Level 137 MMOL/L (136-145) Potassium Level 5.1 MMOL/L (3.5-5.1) Chloride Level 107 MMOL/L (98-107) Carbon Dioxide Level 20 MMOL/L (21-32) L Anion Gap 10 mmol/L (5-15) Blood Urea Nitrogen 26 mg/dL (7-18) H Creatinine 1.3 MG/DL (0.55-1.30) Estimat Glomerular Filtration Rate 40.5 mL/min (>60) Glucose Level 87 MG/DL (74-106) Calcium Level 8.5 MG/DL (8.5-10.1) Total Bilirubin 1.7 MG/DL (0.2-1.0) H Direct Bilirubin 1.0 MG/DL (0.0-0.3) H Aspartate Amino Transf (AST/SGOT) 102 U/L (15-37) H Alanine Aminotransferase (ALT/SGPT) 249 U/L (12-78) H Alkaline Phosphatase 664 U/L (46-116) H Total Protein 6.2 G/DL (6.4-8.2) L Albumin 2.0 G/DL (3.4-5.0) L Globulin 4.2 g/dL Albumin/Globulin Ratio 0.5 (1.0-2.7) L Homocystine Pending Cytomegalovirus DNA PCR copies/ml Pending Cytomegalovirus DNA PCR log10 Pending Objective HEENT: Normocephalic, atraumatic, Pupils equally reactive to light and accommodation, EOMI. NECK: No JVD, no carotid bruit. CARDIOVASCULAR: Regular rate and rhythm. No murmurs, gallops or rubs. LUNGS: Clear to auscultation bilaterally. No crackles or Rhonchi. ABDOMEN: Soft and nontender. No organomegaly, + BS. EXTREMITIES: No cyanosis, clubbing or edema. Miller Mckeon MD May 23, 2018 21:44
[2018-05-24] VITALS (13 sets, daily range): BP systolic 137–183; BP diastolic 63–97
[2018-05-24] MEDS: NovoLOG Insulin Flexpen SUBQ SCH ×4 (05:57→20:33)
[2018-05-24 06:19] LABS: HEMATOCRIT 31.6 % (37.0-47.0); HEMOGLOBIN 10.1 G/DL (12.0-16.0); MEAN CORPUSCULAR VOLUME 83 FL (80-99); PLATELET COUNT 241 K/UL (150-450); RED CELL DISTRIBUTION WIDTH 17.7 % (11.6-14.8); WHITE BLOOD COUNT 7.7 K/UL (4.8-10.8)
--- NOTE | 2018-05-24 06:35 | NUR ---
NURSE NOTES: PATIENT KEPT CLEAN AND DRY, INCONTINENCE CARE GIVEN NEEDED, BODY LOTION APPLIED AND CALAZIME CREAM APPLIED TO PERINEAL AREA. ALL NEEDS ATTENDED.
[2018-05-24 06:47] LABS: ALANINE AMINOTRANSFERASE 244 U/L (12-78); ALBUMIN 2.3 G/DL (3.4-5.0); ALBUMIN/GLOBULIN RATIO 0.5 (1.0-2.7); ALKALINE PHOSPHATASE 767 U/L (46-116); ANION GAP 13 mmol/L (5-15); ASPARTATE AMINO TRANSFERASE 162 U/L (15-37); BILIRUBIN,TOTAL 1.7 MG/DL (0.2-1.0); BLOOD UREA NITROGEN 20 mg/dL (7-18); CALCIUM 8.8 MG/DL (8.5-10.1); CARBON DIOXIDE 19 MMOL/L (21-32); CHLORIDE 104 MMOL/L (98-107); CREATININE 1.3 MG/DL (0.55-1.30); POTASSIUM 4.9 MMOL/L (3.5-5.1); SODIUM 136 MMOL/L (136-145)
[2018-05-24 06:53] LABS: BILIRUBIN,DIRECT 1.1 MG/DL (0.0-0.3)
--- NOTE | 2018-05-24 06:55 | NUR ---
HAND-OFF: Report given to Evette ARITA RN. PATIENT ASLEEP, NO SIGNS OF DISTRESS NOTED.
--- NOTE | 2018-05-24 07:44 | General Progress Note ---
Assessment/Plan Assessment/Plan Impression Diabetic ketoacidosis Anemia Transaminitis of unclear etiology Severe protein calorie malnutrition Evidence of pancreatitis, better Acute renal failure, improved Hyperglycemia Diabetes Hyponatremia Metabolic acidosis Hypercholesterolemia fever oral ulcers afib with RVR leukopenia attempt to dc per GI EUS thursday ID recommendations noted rate control adequate impression, plan, and exam edited and reviewed in detail care discussed with RN Subjective Allergies: Coded Allergies: SHELLFISH DERIVED (Verified Allergy, Unknown, swelling and itchiness, 05/14) Subjective consultants appreciated oral care better skin improved Objective Last 24 Hour Vital Signs Date Time Temp Pulse Resp B/P (MAP) Pulse Ox O2 Delivery O2 Flow Rate FiO2 05/24/18 07:00 98 Nasal Cannula 3.0 32 05/24/18 07:00 102 20 Nasal Cannula 3.0 32 05/24/18 07:00 Nasal Cannula 3.0 32 05/24/18 04:00 2.0 05/24/18 04:00 95 05/24/18 04:00 99.5 96 24 159/68 (98) 99 05/24/18 00:00 2.0 05/24/18 00:00 76 05/24/18 00:00 98.0 82 24 155/78 (103) 100 05/23/18 21:10 76 142/72 05/23/18 21:00 Nasal Cannula 2.0 05/23/18 20:00 2.0 05/23/18 20:00 98.8 76 24 142/72 (95) 100 05/23/18 20:00 76 05/23/18 19:40 98 Nasal Cannula 3.0 32 05/23/18 19:40 76 20 Nasal Cannula 3.0 32 05/23/18 19:40 Nasal Cannula 3.0 32 05/23/18 16:00 97.7 69 20 143/71 (95) 97 05/23/18 16:00 72 05/23/18 16:00 2.0 05/23/18 12:00 2.0 05/23/18 12:00 67 05/23/18 12:00 97.0 67 20 134/66 (88) 100 05/23/18 09:00 Nasal Cannula 2.0 05/23/18 08:57 66 145/68 05/23/18 08:00 2.0 05/23/18 08:00 97.8 66 19 145/68 (93) 100 05/23/18 08:00 71 05/23/18 07:58 68 20 Nasal Cannula 3.0 32 05/23/18 07:58 Nasal Cannula 3.0 32 05/23/18 07:58 99 Nasal Cannula 3.0 32 Intake and Output 05/23/18 05/24/18 19:00 07:00 Intake Total 360 ml 120 ml Balance 360 ml 120 ml Intake Oral 360 ml 120 ml # Voids 1 2 Laboratory Tests 05/24/18 05:35: White Blood Count 7.7#, Red Blood Count 3.80L, Hemoglobin 10.1L, Hematocrit 31.6L, Mean Corpuscular Volume 83, Mean Corpuscular Hemoglobin 26.6L, Mean Corpuscular Hemoglobin Concent 32.0, Red Cell Distribution Width 17.7H, Platelet Count 241, Mean Platelet Volume 6.8, Neutrophils (%) (Auto) , Lymphocytes (%) (Auto) , Monocytes (%) (Auto) , Eosinophils (%) (Auto) , Basophils (%) (Auto) , Neutrophils % (Manual) [Pending], Lymphocytes % (Manual) [Pending], Platelet Estimate [Pending], Platelet Morphology [Pending], Sodium Level 136, Potassium Level 4.9, Chloride Level 104, Carbon Dioxide Level 19L, Anion Gap 13, Blood Urea Nitrogen 20H, Creatinine 1.3, Estimat Glomerular Filtration Rate 40.5, Glucose Level 121H, Calcium Level 8.8, Total Bilirubin 1.7H, Direct Bilirubin 1.1H, Aspartate Amino Transf (AST/SGOT) 162H, Alanine Aminotransferase (ALT/SGPT) 244H, Alkaline Phosphatase 767H, Total Protein 6.9, Albumin 2.3L, Globulin 4.6, Albumin/Globulin Ratio 0.5L Height (Feet): 4 Height (Inches): 10.00 Weight (Pounds): 175 Objective WDWN NAD clear breath sounds bilaterally without rhonchi or wheeze S1S2 RRR without MRG NABS nontender no HSM no CCE nonfocal oral ulcers nearly resolved alert Jesus Lew MD May 24, 2018 07:44
--- NOTE | 2018-05-24 08:01 | NUR ---
NURSE NOTES: Received patient resting in bed. No signs of respiratory distress or pain at this time. Fall precautions in place: call light, bed in lowest position, bed alarm on, and ID band in place. Patient is NPO status. Patient is on heart monitor. Patient position on semi-baires position. Also on aspiration precaution. Will follow up with plan of care. Addendum: 05/24/18 at 0805 by Colt Wells RN Report was from WAYNE Samuel.
[2018-05-24] MEDS: Enoxaparin 80mg Inj SUBQ SCH (08:22)
--- NOTE | 2018-05-24 10:00 | NUR ---
@10am Called Dr. Benito and Dr. Mckeon about blood pressure reading and orders. Awaiting call back.
--- NOTE | 2018-05-24 10:30 | NUR ---
P.T Note: P.T evaluation deferred at this time due to currently NPO and awaiting procedure. Will follow up following procedure. Conferred with RN.
[2018-05-24] MEDS: Metoprolol 25mg tab ORAL SCH ×2 (10:41→21:04)
[2018-05-24] MEDS: Pantoprazole Inj IVP SCH (10:41)
--- NOTE | 2018-05-24 10:56 | Infectious Diseases Prog Note ---
Assessment/Plan Assessment/Plan antibiotics : acyclovir A 1. pancreatitis 2. herpes of lip improving 3. diabetic ketoacidosis 4. increased LFT 5. fever improving 6. hypertension 7. fungal UTI 8. ? drug reaction improving P 1. continue acyclovir 3 more days 2. will follow up cultures Subjective Constitutional: Denies: fever, chills Respiratory: Denies: shortness of breath, dry cough Gastrointestinal/Abdominal: Denies: nausea, vomiting, diarrhea Musculoskeletal: Reports: pain Allergies: Coded Allergies: SHELLFISH DERIVED (Verified Allergy, Unknown, swelling and itchiness, 05/14) Objective Vital Signs Last 24 Hour Vital Signs Date Time Temp Pulse Resp B/P (MAP) Pulse Ox O2 Delivery O2 Flow Rate FiO2 05/24/18 10:41 102 177/77 05/24/18 08:00 99.2 102 20 177/77 (110) 100 05/24/18 07:00 98 Nasal Cannula 3.0 32 05/24/18 07:00 102 20 Nasal Cannula 3.0 32 05/24/18 07:00 Nasal Cannula 3.0 32 05/24/18 04:00 2.0 05/24/18 04:00 95 05/24/18 04:00 99.5 96 24 159/68 (98) 99 05/24/18 00:00 2.0 05/24/18 00:00 76 05/24/18 00:00 98.0 82 24 155/78 (103) 100 05/23/18 21:10 76 142/72 05/23/18 21:00 Nasal Cannula 2.0 05/23/18 20:00 2.0 05/23/18 20:00 98.8 76 24 142/72 (95) 100 05/23/18 20:00 76 05/23/18 19:40 98 Nasal Cannula 3.0 32 05/23/18 19:40 76 20 Nasal Cannula 3.0 32 05/23/18 19:40 Nasal Cannula 3.0 32 05/23/18 16:00 97.7 69 20 143/71 (95) 97 05/23/18 16:00 72 05/23/18 16:00 2.0 05/23/18 12:00 2.0 05/23/18 12:00 67 05/23/18 12:00 97.0 67 20 134/66 (88) 100 Height (Feet): 4 Height (Inches): 10.00 Weight (Pounds): 175 HEENT: other - lip hyperpigmentation decreased Respiratory/Chest: lungs clear Cardiovascular: normal rate, regular rhythm, no gallop/murmur Abdomen: soft, non tender Extremities: other - + edema Skin: rash - erythematous decreased Laboratory Tests Test 05/24/18 05:35 White Blood Count 7.7 K/UL (4.8-10.8) # Red Blood Count 3.80 M/UL (4.20-5.40) L Hemoglobin 10.1 G/DL (12.0-16.0) L Hematocrit 31.6 % (37.0-47.0) L Mean Corpuscular Volume 83 FL (80-99) Mean Corpuscular Hemoglobin 26.6 PG (27.0-31.0) L Mean Corpuscular Hemoglobin Concent 32.0 G/DL (32.0-36.0) Red Cell Distribution Width 17.7 % (11.6-14.8) H Platelet Count 241 K/UL (150-450) Mean Platelet Volume 6.8 FL (6.5-10.1) Neutrophils (%) (Auto) % (45.0-75.0) Lymphocytes (%) (Auto) % (20.0-45.0) Monocytes (%) (Auto) % (1.0-10.0) Eosinophils (%) (Auto) % (0.0-3.0) Basophils (%) (Auto) % (0.0-2.0) Differential Total Cells Counted 100 Neutrophils % (Manual) 50 % (45-75) Lymphocytes % (Manual) 28 % (20-45) Monocytes % (Manual) 22 % (1-10) H Eosinophils % (Manual) 0 % (0-3) Basophils % (Manual) 0 % (0-2) Band Neutrophils 0 % (0-8) Platelet Estimate Adequate Platelet Morphology Normal Hypochromasia 1+ Anisocytosis 1+ Sodium Level 136 MMOL/L (136-145) Potassium Level 4.9 MMOL/L (3.5-5.1) Chloride Level 104 MMOL/L (98-107) Carbon Dioxide Level 19 MMOL/L (21-32) L Anion Gap 13 mmol/L (5-15) Blood Urea Nitrogen 20 mg/dL (7-18) H Creatinine 1.3 MG/DL (0.55-1.30) Estimat Glomerular Filtration Rate 40.5 mL/min (>60) Glucose Level 121 MG/DL (74-106) H Calcium Level 8.8 MG/DL (8.5-10.1) Total Bilirubin 1.7 MG/DL (0.2-1.0) H Direct Bilirubin 1.1 MG/DL (0.0-0.3) H Aspartate Amino Transf (AST/SGOT) 162 U/L (15-37) H Alanine Aminotransferase (ALT/SGPT) 244 U/L (12-78) H Alkaline Phosphatase 767 U/L (46-116) H Total Protein 6.9 G/DL (6.4-8.2) Albumin 2.3 G/DL (3.4-5.0) L Globulin 4.6 g/dL Albumin/Globulin Ratio 0.5 (1.0-2.7) L Current Medications Medications (Trade) Dose Ordered Sig/Ellen Route PRN Reason Start Time Stop Time Status Last Admin Dose Admin Acetaminophen (Tylenol) 650 mg Q4H PRN ORAL Mild Pain/Temp > 100.5 05/17/18 20:45 06/16/18 20:44 05/19/18 16:03 Acyclovir (Zovirax) 800 mg EVERY 8 HOURS ORAL 05/19/18 14:00 05/27/18 23:59 05/24/18 05:30 Al Hydroxide/Mg Hydroxide (Mylanta) 30 ml Q6H PRN ORAL Abdominal cramps 05/15/18 20:15 06/12/18 08:14 Albuterol Sulfate (Proventil) 2.5 mg Q4H PRN HHN Shortness of Breath 05/21/18 20:45 05/26/18 20:44 05/21/18 20:55 Dextrose (Dextrose 50%) 25 ml Q30M PRN IV Hypoglycemia 05/15/18 19:15 06/13/18 10:14 Dextrose (Dextrose 50%) 50 ml Q30M PRN IV Hypoglycemia 05/15/18 19:15 06/13/18 10:14 Enoxaparin Sodium (Lovenox) 80 mg DAILY SUBQ 05/22/18 09:00 06/21/18 08:59 05/23/18 08:57 Insulin Aspart (NovoLOG) BEFORE MEALS AND HS SUBQ 05/15/18 21:00 06/13/18 11:29 05/23/18 21:12 Lorazepam (Ativan) 1 mg Q3H PRN ORAL For Anxiety 05/17/18 17:45 05/24/18 17:44 05/22/18 01:16 Magnesium Hydroxide (Mom) 30 ml DAILYPRN PRN ORAL Constipation 05/15/18 19:00 06/14/18 18:59 05/17/18 18:17 Metoprolol Tartrate (Lopressor) 25 mg Q12HR ORAL 05/15/18 21:00 06/14/18 17:59 05/24/18 10:41 Pantoprazole (Protonix) 40 mg DAILY IVP 05/16/18 09:00 06/12/18 08:59 05/24/18 10:41 Khadra Melendez MD May 24, 2018 10:56
--- NOTE | 2018-05-24 11:17 | Anethesia Preoperative Eval ---
Anesthesia Pre-op PMH/ROS General Date of Evaluation: May 24, 2018 Anesthesiologist: Donn ASA Score: ASA 4 Mallampati Score Class I : Soft palate, uvula, fauces, pillars visible Class II: Soft palate, uvula, fauces visible Class III: Soft palate, base of uvula visible Class IV: Only hard plate visible Mallampati Classification: Class III Surgeon: Thong Diagnosis: Abdominal pain Surgical Procedure: EGD and EUS Anesthesia History: none Family History: no anesthesia problems Allergies: Coded Allergies: SHELLFISH DERIVED (Verified Allergy, Unknown, swelling and itchiness, 05/14) Medications: see eMAR Patient NPO?: Yes NPO Date: May 23, 2018 NPO Time: 22:00 Past Medical History Cardiovascular: Reports: HTN, CAD - s/p quad bypass, other - HLD; Denies: PR, valve dz, arrhythmia Pulmonary: Reports: COPD; Denies: asthma, BERHANE, other Gastrointestinal/Genitourinary: Reports: GERD; Denies: CRI, ESRD, other Neurologic/Psychiatric: Denies: dementia, CVA, depression/anxiety, TIA, other Endocrine: Reports: DM - admitted in DKA-now resolved; Denies: hypothyroidism, steroids, other HEENT: Denies: cataract (L), cataract (R), glaucoma, [place] (L), [place]AN[place] (R), other Hematology/Immune: Reports: anemia; Denies: DVT, bleeding disorder, other Musculoskeletal/Integumentary: Reports: other - gout; Denies: OA, RA, DJD, DDD, edema Other: obesity - morbid PSxH Narrative: CABG Anesthesia Pre-op Phys. Exam Physician Exam Last Vital Signs Date Time Temp Pulse Resp B/P (MAP) Pulse Ox O2 Delivery O2 Flow Rate FiO2 05/24/18 10:41 102 177/77 05/24/18 08:00 99.2 20 100 05/24/18 07:00 Nasal Cannula 3.0 32 Constitutional: NAD Cardiovascular: RRR Respiratory: CTA Airway Exam Mallampati Score: Class III MO: limited ROM: limited Teeth: missing, intact Anesthesia Pre-op A/P Labs Hematology Test 05/24/18 05:35 White Blood Count 7.7 K/UL (4.8-10.8) # Red Blood Count 3.80 M/UL (4.20-5.40) L Hemoglobin 10.1 G/DL (12.0-16.0) L Hematocrit 31.6 % (37.0-47.0) L Mean Corpuscular Volume 83 FL (80-99) Mean Corpuscular Hemoglobin 26.6 PG (27.0-31.0) L Mean Corpuscular Hemoglobin Concent 32.0 G/DL (32.0-36.0) Red Cell Distribution Width 17.7 % (11.6-14.8) H Platelet Count 241 K/UL (150-450) Mean Platelet Volume 6.8 FL (6.5-10.1) Neutrophils (%) (Auto) % (45.0-75.0) Lymphocytes (%) (Auto) % (20.0-45.0) Monocytes (%) (Auto) % (1.0-10.0) Eosinophils (%) (Auto) % (0.0-3.0) Basophils (%) (Auto) % (0.0-2.0) Differential Total Cells Counted 100 Neutrophils % (Manual) 50 % (45-75) Lymphocytes % (Manual) 28 % (20-45) Monocytes % (Manual) 22 % (1-10) H Eosinophils % (Manual) 0 % (0-3) Basophils % (Manual) 0 % (0-2) Band Neutrophils 0 % (0-8) Platelet Estimate Adequate Platelet Morphology Normal Hypochromasia 1+ Anisocytosis 1+ Chemistry Test 05/24/18 05:35 Sodium Level 136 MMOL/L (136-145) Potassium Level 4.9 MMOL/L (3.5-5.1) Chloride Level 104 MMOL/L (98-107) Carbon Dioxide Level 19 MMOL/L (21-32) L Anion Gap 13 mmol/L (5-15) Blood Urea Nitrogen 20 mg/dL (7-18) H Creatinine 1.3 MG/DL (0.55-1.30) Estimat Glomerular Filtration Rate 40.5 mL/min (>60) Glucose Level 121 MG/DL (74-106) H Calcium Level 8.8 MG/DL (8.5-10.1) Total Bilirubin 1.7 MG/DL (0.2-1.0) H Direct Bilirubin 1.1 MG/DL (0.0-0.3) H Aspartate Amino Transf (AST/SGOT) 162 U/L (15-37) H Alanine Aminotransferase (ALT/SGPT) 244 U/L (12-78) H Alkaline Phosphatase 767 U/L (46-116) H Total Protein 6.9 G/DL (6.4-8.2) Albumin 2.3 G/DL (3.4-5.0) L Globulin 4.6 g/dL Albumin/Globulin Ratio 0.5 (1.0-2.7) L Risk Assessment & Plan Assessment: ASA IV Plan: MAC Status Change Before Surgery: No Pre-Antibiotics Drug: N/A rBittany Monroy MD May 24, 2018 11:17
--- NOTE | 2018-05-24 11:46 | NUR ---
NURSE NOTES: Patient left for GI Lab at 11:46am with daughter at her side.
[2018-05-24] MEDS ORDERED: Ketamine 500mg Inj ONE (12:00)
[2018-05-24] MEDS ORDERED: Propofol 200mg/20ml IV ONE (12:00)
[2018-05-24] MEDS ORDERED: Midazolam 2mg/2ml Inj ONE (12:00)
[2018-05-24] MEDS ORDERED: LR 1000ml ONE (12:00)
[2018-05-24] MEDS ORDERED: NS 500ML IVPB ONE (12:05)
--- NOTE | 2018-05-24 12:07 | Pre-Procedure Note/Attestation ---
Pre-Procedure Note/Attestation Complete Prior to Procedure Planned Procedure: not applicable Procedure Narrative: eus Indications for Procedure Pre-Operative Diagnosis: elevated lfts Attestation I attest that I discussed the nature of the procedure; its benefits; risks and complications; and alternatives (and the risks and benefits of such alternatives ), prior to the procedure, with the patient (or the patient's legal area representative). I attest that, if there was a reasonable possibility of needing a blood transfusion, the patient (or the patient's legal area representative) was given the [facility] standardized written summary, pursuant to the Alfred Nela Blood Safety Act ([place] Health and Safety Code # 1645, as amended). I attest that I re-evaluated the patient just prior to the surgery and that there has been no change in the patient's H&P, except as documented below: Neeraj Benito MD May 24, 2018 12:07
--- NOTE | 2018-05-24 12:38 | Endoscopy Procedure Note ---
Endoscopy Procedure Note General Indication for Procedure: pancreatitis Procedures Performed: other - EUS Operative Findings/Diagnosis: pancreatitis Specimen: none Pt Tolerated Procedure Well: Yes Estimated Blood Loss: none Anesthesia Anesthesiologist: carlos Anesthesia: MAC Inserted Devices Implant(s) used?: No GI Core Measures 50 yrs or older w/o bx or poly: Not Applicable 10yrs. F/U not recommended: Not Applicable Neeraj Benito MD May 24, 2018 12:38
--- NOTE | 2018-05-24 12:49 | NUR ---
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 99.5 HR 102 RR 20 B/P 177/70 AST 162 ALT 246 ALK PHOS 767 IS: LOVENOX SUBC. PROTONIX TELE STATUS
--- NOTE | 2018-05-24 12:54 | Immediate Post-Op Evaluation ---
Immediate Post-Op Evalulation Immediate Post-Op Evalulation Procedure: EGD and EUS Date of Evaluation: May 24, 2018 Time of Evaluation: 12:51 IV Fluids: 200 Blood Products: 0 Estimated Blood Loss: 0 Urinary Output: 0 Blood Pressure Systolic: 162 Blood Pressure Diastolic: 97 Pulse Rate: 81 Respiratory Rate: 16 O2 Sat by Pulse Oximetry: 100 Temperature (Fahrenheit): 98.6 Pain Score (1-10): 0 Nausea: No Vomiting: No Complications 0 Patient Status: awake, reacts, patent, none Hydration Status: adequate Drug: N/A Brittany Monroy MD May 24, 2018 12:54
--- NOTE | 2018-05-24 12:55 | 48 Hour Post Anesthesia Eval ---
Post Anesthesia Evaluation Procedure: EGD and EUS Date of Evaluation: May 24, 2018 Airway: patent Nausea: No Vomiting: No Pain Intensity: 0 Hydration Status: adequate Cardiopulmonary Status: at baseline Mental Status/LOC: patient returned to baseline Post-Anesthesia Complications: 0 Follow-up care needed: N/A - further care as per ariellemiriam team Brittany Monroy MD May 24, 2018 12:55
--- NOTE | 2018-05-24 13:57 | NUR ---
*-* INSURANCE *-* ALL CLINICALS,REVIEWS AND INTERQUAL HAVE BEEN FAXED TO: [facility] F:[phone]
--- NOTE | 2018-05-24 14:44 | NUR ---
NURSE NOTES: Received report of pt. has no gallbladder stones, only pancreatitis. Labs order in AM. Patient arrived at 1:30pm. [facility] [place] [place] . Spoke to Riddhi Combs. Will await orders. VS entered in EMR.
--- NOTE | 2018-05-24 16:30 | Procedure Note ---
DATE OF PROCEDURE: 05/24/2018 SURGEON: Neeraj Benito M.D. ANESTHESIOLOGIST: Dr. Pop. REFERRING PHYSICIAN: Jesus Lew M.D. PROCEDURE: Endoscopic ultrasound. ANESTHESIA: Per Dr. Pop. INSTRUMENT: Olympus EUS scope. INDICATION: Pancreatitis. The procedure, risks, benefits, and possible consequences, including hemorrhage, aspiration, perforation and infection, and alternative treatments, were explained to the patient/legal guardian by Dr. Neeraj Benito and the patient/legal guardian understood and accepted these risks. DESCRIPTION OF PROCEDURE: After informed consent was obtained and the patient was adequately sedated, Olympus EUS scope was advanced from the mouth into the second portion of duodenum and pancreatic parenchyma was carefully examined through the gastroduodenal mucosa. Starting scanning at GE junction, celiac axis was evaluated. There was no obvious celiac axis lymphadenopathy. Then while the scope was in the stomach, pancreatic body and tail was fully examined. There was evidence of pancreatitis with some calcification and some parenchymal changes suggestive of acute pancreatitis without any pancreatic duct dilatation. No obvious mass was seen. Then, the scope was advanced to duodenal bulb and second portion of duodenum where the head and uncinate process of the pancreas was examined. Common bile duct was seen roughly about 4 mm without any dilatation. No stone was seen in the common bile duct either. There was a 1 cm nonspecific lymph node in the kristina hepatitis, most probably from inflammation. No pancreatic head mass was seen. Gallbladder wall was thickened, but no obvious gallstones were seen. SUMMARY OF FINDINGS: 1. Pancreatitis, most probably acute, without any pancreatic duct dilatation or mass. 2. No evidence of any common bile duct dilatation was seen with common bile duct stone. 3. Gallbladder wall thickening, nonspecific. 4. 1 cm kristina hepatis lymph node, nonspecific. RECOMMENDATIONS: We will repeat amylase and lipase for tomorrow. The patient to be kept n.p.o. overnight. If amylase and lipase are coming down, we are going to start the patient on clear-liquid diet and advance as tolerated. At this time, we do not feel there is any need for ERCP. We will follow closely. I want to thank Dr. Jesus Lew for this kind referral. Neeraj Jax Benito DR: David JOB#: [id number] CC: Jesus Lew M.D.; Fax#: [phone]
[2018-05-24] MEDS ORDERED: Metoprolol 5mg/5ml Inj IVP PRN (17:00)
--- NOTE | 2018-05-24 17:43 | Cardiology Progress Note ---
Assessment/Plan Assessment/Plan 1. Paroxysmal atrial fibrillation, due to CHADS-VASC score of 5, continue enoxaparin and metoprolol. 2. Hx of CAD, s/p CABG, ASA , atorvastatin and metoprolol. No wall motion abnormalities on Echo. LVEF ~55%. 3. Sinus tachycardia, resolved, due to hypovolemia. 4. DKA, resolved. 5. DM, non-compliant with medications. 6. Hx of HTN, controlled with metoprolol. 7. Severe pulmonary HTN. Subjective Subjective Sinus rhythm at rate of 88. Objective Last 24 Hour Vital Signs Date Time Temp Pulse Resp B/P (MAP) Pulse Ox O2 Delivery O2 Flow Rate FiO2 05/24/18 16:00 100.5 88 24 137/70 (92) 98 05/24/18 16:00 81 05/24/18 14:30 98.1 87 28 141/97 (112) 99 05/24/18 13:30 99.1 83 20 154/72 (99) 100 05/24/18 13:06 83 28 183/86 100 Simple Mask 8 05/24/18 13:00 82 28 179/80 100 Simple Mask 8 05/24/18 12:56 81 28 182/92 100 Simple Mask 8 05/24/18 12:54 81 16 100 05/24/18 12:51 82 28 180/96 100 Simple Mask 8 05/24/18 12:46 98.6 81 28 162/97 100 Simple Mask 8 05/24/18 11:31 99.5 92 20 159/70 (99) 100 05/24/18 10:41 102 177/77 05/24/18 09:00 Nasal Cannula 2.0 05/24/18 08:00 99.2 102 20 177/77 (110) 100 05/24/18 07:39 97 05/24/18 07:00 98 Nasal Cannula 3.0 32 05/24/18 07:00 102 20 Nasal Cannula 3.0 32 05/24/18 07:00 Nasal Cannula 3.0 32 05/24/18 04:00 2.0 05/24/18 04:00 95 05/24/18 04:00 99.5 96 24 159/68 (98) 99 05/24/18 00:00 2.0 05/24/18 00:00 76 05/24/18 00:00 98.0 82 24 155/78 (103) 100 05/23/18 21:10 76 142/72 05/23/18 21:00 Nasal Cannula 2.0 05/23/18 20:00 2.0 05/23/18 20:00 98.8 76 24 142/72 (95) 100 05/23/18 20:00 76 05/23/18 19:40 98 Nasal Cannula 3.0 32 05/23/18 19:40 76 20 Nasal Cannula 3.0 32 05/23/18 19:40 Nasal Cannula 3.0 32 Intake and Output 05/23/18 05/24/18 18:59 06:59 Intake Total 360 ml 120 ml Balance 360 ml 120 ml Intake Oral 360 ml 120 ml # Voids 1 2 2D Echo: EF55%,Mild LVH,Mod MR,Mild AR,RVSP 67 mmHg (severe PHT),Restrictive LV phys Laboratory Tests Test 05/24/18 05:35 White Blood Count 7.7 K/UL (4.8-10.8) # Red Blood Count 3.80 M/UL (4.20-5.40) L Hemoglobin 10.1 G/DL (12.0-16.0) L Hematocrit 31.6 % (37.0-47.0) L Mean Corpuscular Volume 83 FL (80-99) Mean Corpuscular Hemoglobin 26.6 PG (27.0-31.0) L Mean Corpuscular Hemoglobin Concent 32.0 G/DL (32.0-36.0) Red Cell Distribution Width 17.7 % (11.6-14.8) H Platelet Count 241 K/UL (150-450) Mean Platelet Volume 6.8 FL (6.5-10.1) Neutrophils (%) (Auto) % (45.0-75.0) Lymphocytes (%) (Auto) % (20.0-45.0) Monocytes (%) (Auto) % (1.0-10.0) Eosinophils (%) (Auto) % (0.0-3.0) Basophils (%) (Auto) % (0.0-2.0) Differential Total Cells Counted 100 Neutrophils % (Manual) 50 % (45-75) Lymphocytes % (Manual) 28 % (20-45) Monocytes % (Manual) 22 % (1-10) H Eosinophils % (Manual) 0 % (0-3) Basophils % (Manual) 0 % (0-2) Band Neutrophils 0 % (0-8) Platelet Estimate Adequate Platelet Morphology Normal Hypochromasia 1+ Anisocytosis 1+ Sodium Level 136 MMOL/L (136-145) Potassium Level 4.9 MMOL/L (3.5-5.1) Chloride Level 104 MMOL/L (98-107) Carbon Dioxide Level 19 MMOL/L (21-32) L Anion Gap 13 mmol/L (5-15) Blood Urea Nitrogen 20 mg/dL (7-18) H Creatinine 1.3 MG/DL (0.55-1.30) Estimat Glomerular Filtration Rate 40.5 mL/min (>60) Glucose Level 121 MG/DL (74-106) H Calcium Level 8.8 MG/DL (8.5-10.1) Total Bilirubin 1.7 MG/DL (0.2-1.0) H Direct Bilirubin 1.1 MG/DL (0.0-0.3) H Aspartate Amino Transf (AST/SGOT) 162 U/L (15-37) H Alanine Aminotransferase (ALT/SGPT) 244 U/L (12-78) H Alkaline Phosphatase 767 U/L (46-116) H Total Protein 6.9 G/DL (6.4-8.2) Albumin 2.3 G/DL (3.4-5.0) L Globulin 4.6 g/dL Albumin/Globulin Ratio 0.5 (1.0-2.7) L Objective HEENT: Normocephalic, atraumatic, Pupils equally reactive to light and accommodation, EOMI. NECK: No JVD, no carotid bruit. CARDIOVASCULAR: Regular rate and rhythm. No murmurs, gallops or rubs. LUNGS: Clear to auscultation bilaterally. No crackles or Rhonchi. ABDOMEN: Soft and nontender. No organomegaly, + BS. EXTREMITIES: No cyanosis, clubbing or edema. Miller Mckeon MD May 24, 2018 17:43
--- NOTE | 2018-05-24 17:59 | General Progress Note ---
Assessment/Plan Assessment/Plan Assessment and Recs # Pancytopenia -- appears that initial hep and hiv are negative though final results to follow, liver shows no major hsm or cirrhosis, may consider meds or bone marrow process, smear reviewed --> this pancytopenia is acute in onset, over last several days, thus most likely abx infection related --> query meds, review with ID, is on micafungin now, monitor counts closely --> if no other cause and/or worsens, may consider flow cytometry or a bone marrow biopsy --> nepogen 300mcg sq to maintain anc >1500 --> wbc trend : 1.7-->4.3-->3.1-->3.4 # Anemia of chronic disease - monitor anemia panel --> hemolysis does not appear to be the case --> anemia panel reviewed -->hgb trend: 8.3-->9.2-->8.9-->8.7 # Paroxysmal atrial fibrillation, due to CHADS-VASC score of 5, we require to keep anticoagulated, on metoprolol --> continue on apixaban # Hx of CAD, s/p CABG, ASA , atorvastatin and metoprolol. No wall motion abnormalities on Echo. LVEF ~55%. --> appreciate cards recs # Sinus tachycardia due to hypovolemia, resolved. # DKA, resolved. # DM, non-compliant with medications. # Hx of HTN, controlled with metoprolol. # pancreatitis # increased LFT The timing of this note does not necessarily reflect the time of the patient was seen. Greatly appreciate consultation! Subjective Allergies: Coded Allergies: SHELLFISH DERIVED (Verified Allergy, Unknown, swelling and itchiness, 05/14) Subjective 05/18: Pt is awake and comfortable, no events, leukopenia improved, wbc 4.3, plt 151 05/19: seen by bedside, awake, comfortable, plt 122 05/20: Pt is awake and comfortable, no events 05/21: Pt is seen in the room, resting in bed, no fevers or chills, wbc 8.7, plt 117 05/23: Pt is resting in bed, awake, comfortable, no fevers or chills, no acute distress. 05/24: EGD and EUS done today, has no gallbladder stones, only pancreatitis, no events Objective Last 24 Hour Vital Signs Date Time Temp Pulse Resp B/P (MAP) Pulse Ox O2 Delivery O2 Flow Rate FiO2 05/24/18 16:00 100.5 88 24 137/70 (92) 98 05/24/18 16:00 81 05/24/18 14:30 98.1 87 28 141/97 (112) 99 05/24/18 13:30 99.1 83 20 154/72 (99) 100 05/24/18 13:06 83 28 183/86 100 Simple Mask 8 05/24/18 13:00 82 28 179/80 100 Simple Mask 8 05/24/18 12:56 81 28 182/92 100 Simple Mask 8 05/24/18 12:54 81 16 100 05/24/18 12:51 82 28 180/96 100 Simple Mask 8 05/24/18 12:46 98.6 81 28 162/97 100 Simple Mask 8 05/24/18 11:31 99.5 92 20 159/70 (99) 100 05/24/18 10:41 102 177/77 05/24/18 09:00 Nasal Cannula 2.0 05/24/18 08:00 99.2 102 20 177/77 (110) 100 05/24/18 07:39 97 05/24/18 07:00 98 Nasal Cannula 3.0 32 05/24/18 07:00 102 20 Nasal Cannula 3.0 32 05/24/18 07:00 Nasal Cannula 3.0 32 05/24/18 04:00 2.0 05/24/18 04:00 95 05/24/18 04:00 99.5 96 24 159/68 (98) 99 05/24/18 00:00 2.0 05/24/18 00:00 76 05/24/18 00:00 98.0 82 24 155/78 (103) 100 05/23/18 21:10 76 142/72 05/23/18 21:00 Nasal Cannula 2.0 05/23/18 20:00 2.0 05/23/18 20:00 98.8 76 24 142/72 (95) 100 05/23/18 20:00 76 05/23/18 19:40 98 Nasal Cannula 3.0 32 05/23/18 19:40 76 20 Nasal Cannula 3.0 32 05/23/18 19:40 Nasal Cannula 3.0 32 Intake and Output 2/3/19 2/4/19 18:59 06:59 Intake Total 360 ml 120 ml Balance 360 ml 120 ml Intake Oral 360 ml 120 ml # Voids 1 2 Laboratory Tests 05/24/18 05:35: White Blood Count 7.7#, Red Blood Count 3.80L, Hemoglobin 10.1L, Hematocrit 31.6L, Mean Corpuscular Volume 83, Mean Corpuscular Hemoglobin 26.6L, Mean Corpuscular Hemoglobin Concent 32.0, Red Cell Distribution Width 17.7H, Platelet Count 241, Mean Platelet Volume 6.8, Neutrophils (%) (Auto) , Lymphocytes (%) (Auto) , Monocytes (%) (Auto) , Eosinophils (%) (Auto) , Basophils (%) (Auto) , Differential Total Cells Counted 100, Neutrophils % ( Manual) 50, Lymphocytes % (Manual) 28, Monocytes % (Manual) 22H, Eosinophils % ( Manual) 0, Basophils % (Manual) 0, Band Neutrophils 0, Platelet Estimate Adequate, Platelet Morphology Normal, Hypochromasia 1+, Anisocytosis 1+, Sodium Level 136, Potassium Level 4.9, Chloride Level 104, Carbon Dioxide Level 19L, Anion Gap 13, Blood Urea Nitrogen 20H, Creatinine 1.3, Estimat Glomerular Filtration Rate 40.5, Glucose Level 121H, Calcium Level 8.8, Total Bilirubin 1.7H, Direct Bilirubin 1.1H, Aspartate Amino Transf (AST/SGOT) 162H, Alanine Aminotransferase (ALT/SGPT) 244H, Alkaline Phosphatase 767H, Total Protein 6.9, Albumin 2.3L, Globulin 4.6, Albumin/Globulin Ratio 0.5L Height (Feet): 4 Height (Inches): 10.00 Weight (Pounds): 175 Objective PHYSICAL EXAMINATION: GENERAL: Pleasant [place] woman seen in the ICU. HEENT: Normocephalic and atraumatic. Sclerae anicteric. Oropharynx clear. NECK: Supple. CHEST: Clear to auscultation. CARDIOVASCULAR: Revealed regular rate. ABDOMEN: Soft. Good bowel sounds. There is no organomegaly or tenderness. Anterior chest and abdomen scars were as expected. EXTREMITIES: Revealed no edema. Armando Bowen MD May 24, 2018 17:59
[2018-05-24] MEDS ORDERED: Aspirin Baby 81mg ORAL SCH (18:00)
--- NOTE | 2018-05-24 19:10 | NUR ---
HAND-OFF: Report given to WAYNE Holman.
--- NOTE | 2018-05-24 19:28 | NUR ---
NURSE NOTES: Report received from WAYNE Gregory. Pt is lying comfortably in semi-fowlers with no signs of distress. Pt is A+Ox4 and denies pain/SOB. Respirations are even and unlabored on 2 L NC. IV site is patent, intact, and saline locked. Made Dr. Lew aware of no IV fluids and he ordered NS @ 100 ml/hr. Order noted and carried out. Bed is at lowest position, brakes engaged, siderails x2, bed alarm on, and call light within reach. Pt is in stable condition at this time; will continue to monitor.
--- NOTE | 2018-05-24 21:34 | NUR ---
NURSE NOTES: Made Dr. Lew aware of pt's IVs continuing to become infiltrated. Pt is hard stick. Dr. Lew ordered PICC insertion for tomorrow. Order noted and carried out. Will call daughter for consent in morning.
[2018-05-25] VITALS: BP 145/75
[2018-05-25 04:00] VITALS: BP 144/67
[2018-05-25] MEDS: NovoLOG Insulin Flexpen SUBQ SCH ×4 (05:57→20:39)
--- NOTE | 2018-05-25 07:18 | NUR ---
NURSE NOTES: Left message with pt's sister regarding consent for PICC placement; awaiting call back.
--- NOTE | 2018-05-25 07:22 | NUR ---
HAND-OFF: Report given to WAYNE Gregory. Pt is in stable condition; plan of care endorsed.
--- NOTE | 2018-05-25 07:30 | NUR ---
NURSE NOTES: Report received from WAYNE Holman. Pt is lying comfortably in semi-fowlers with no signs of distress. Pt is AAOx3 and denies pain/SOB. Respirations are even and unlabored on 2 L NC. Patient going for Picc line today. Bed is at lowest position, brakes engaged, siderails x2, bed alarm on, and call light within reach. Will continue to monitor.
[2018-05-25 07:35] LABS: HEMATOCRIT 28.9 % (37.0-47.0); HEMOGLOBIN 9.2 G/DL (12.0-16.0); MEAN CORPUSCULAR VOLUME 84 FL (80-99); PLATELET COUNT 236 K/UL (150-450); RED BLOOD COUNT 3.44 M/UL (4.20-5.40); RED CELL DISTRIBUTION WIDTH 18.4 % (11.6-14.8); WHITE BLOOD COUNT 8.1 K/UL (4.8-10.8)
[2018-05-25 08:00] VITALS: BP 151/81
[2018-05-25 08:02] LABS: ALANINE AMINOTRANSFERASE 181 U/L (12-78); ALBUMIN 2.1 G/DL (3.4-5.0); ALBUMIN/GLOBULIN RATIO 0.5 (1.0-2.7); ALKALINE PHOSPHATASE 623 U/L (46-116); AMYLASE 55 U/L (25-115); ANION GAP 11 mmol/L (5-15); ASPARTATE AMINO TRANSFERASE 87 U/L (15-37); BILIRUBIN,DIRECT 0.8 MG/DL (0.0-0.3); BILIRUBIN,TOTAL 1.5 MG/DL (0.2-1.0); BLOOD UREA NITROGEN 25 mg/dL (7-18); CALCIUM 8.2 MG/DL (8.5-10.1); CARBON DIOXIDE 19 MMOL/L (21-32); CHLORIDE 108 MMOL/L (98-107); CREATININE 1.2 MG/DL (0.55-1.30); POTASSIUM 4.9 MMOL/L (3.5-5.1); SODIUM 138 MMOL/L (136-145)
[2018-05-25] MEDS: Pantoprazole Inj IVP SCH (09:00)
[2018-05-25] MEDS ORDERED: Heparin 2000 units/Ns 1000ml INJ PRN (09:00)
[2018-05-25] MEDS ORDERED: Lidocaine 1% Plain 30 ml INJ PRN (09:00)
[2018-05-25] MEDS: Enoxaparin 80mg Inj SUBQ SCH (09:00)
[2018-05-25] MEDS: Aspirin Baby 81mg ORAL SCH (09:56)
[2018-05-25] MEDS: Metoprolol 25mg tab ORAL SCH ×2 (09:56→20:39)
--- NOTE | 2018-05-25 10:04 | NUR ---
P.T Note: Attempted P.T visit today however pt is too lethargic to participate with tx. Will reattempt when/as appropriate.
--- NOTE | 2018-05-25 10:05 | Infectious Diseases Prog Note ---
Assessment/Plan Assessment/Plan antibiotics : acyclovir A 1. pancreatitis improving 2. herpes of lip improving 3. diabetic ketoacidosis 4. increased LFT 5. fever improving 6. hypertension 7. fungal UTI 8. ? drug reaction improving P 1. continue acyclovir 2 more days 2. will follow up cultures Subjective Constitutional: Denies: fever, chills Respiratory: Denies: shortness of breath, dry cough Gastrointestinal/Abdominal: Denies: nausea, vomiting, diarrhea Musculoskeletal: Denies: pain Allergies: Coded Allergies: SHELLFISH DERIVED (Verified Allergy, Unknown, swelling and itchiness, 05/14) Objective Vital Signs Last 24 Hour Vital Signs Date Time Temp Pulse Resp B/P (MAP) Pulse Ox O2 Delivery O2 Flow Rate FiO2 05/25/18 09:56 74 151/81 05/25/18 09:00 Nasal Cannula 2.0 05/25/18 08:27 74 18 Nasal Cannula 2.0 28 05/25/18 08:27 Nasal Cannula 2.0 28 05/25/18 08:27 100 Nasal Cannula 2.0 28 05/25/18 08:00 2.0 05/25/18 08:00 98.2 76 16 151/81 (104) 100 05/25/18 07:46 74 05/25/18 04:00 2.0 05/25/18 04:00 98.2 73 18 144/67 (92) 98 05/25/18 04:00 79 05/25/18 00:00 2.0 05/25/18 00:00 85 05/25/18 00:00 97.0 74 18 145/75 (98) 100 05/24/18 21:04 99 140/63 05/24/18 21:00 Nasal Cannula 2.0 05/24/18 20:06 Nasal Cannula 3.0 32 05/24/18 20:05 99 18 Nasal Cannula 3.0 32 05/24/18 20:05 97 Nasal Cannula 3.0 32 05/24/18 20:00 2.0 05/24/18 20:00 99.8 86 17 140/63 (88) 98 05/24/18 20:00 85 05/24/18 17:49 99.0 05/24/18 16:00 2.0 05/24/18 16:00 100.5 88 24 137/70 (92) 98 05/24/18 16:00 81 05/24/18 14:30 98.1 87 28 141/97 (112) 99 05/24/18 13:30 99.1 83 20 154/72 (99) 100 05/24/18 13:06 83 28 183/86 100 Simple Mask 8 05/24/18 13:00 82 28 179/80 100 Simple Mask 8 05/24/18 12:56 81 28 182/92 100 Simple Mask 8 05/24/18 12:54 81 16 100 05/24/18 12:51 82 28 180/96 100 Simple Mask 8 05/24/18 12:46 98.6 81 28 162/97 100 Simple Mask 8 05/24/18 12:00 2.0 05/24/18 11:31 99.5 92 20 159/70 (99) 100 05/24/18 10:41 102 177/77 Height (Feet): 4 Height (Inches): 10.00 Weight (Pounds): 169 HEENT: other - lip hyperpigmentation decreased Respiratory/Chest: lungs clear Cardiovascular: normal rate, regular rhythm, no gallop/murmur Abdomen: soft, non tender Extremities: other - + edema Skin: rash - erythematous decreasing Laboratory Tests Test 05/25/18 06:46 White Blood Count 8.1 K/UL (4.8-10.8) Red Blood Count 3.44 M/UL (4.20-5.40) L Hemoglobin 9.2 G/DL (12.0-16.0) L Hematocrit 28.9 % (37.0-47.0) L Mean Corpuscular Volume 84 FL (80-99) Mean Corpuscular Hemoglobin 26.7 PG (27.0-31.0) L Mean Corpuscular Hemoglobin Concent 31.8 G/DL (32.0-36.0) L Red Cell Distribution Width 18.4 % (11.6-14.8) H Platelet Count 236 K/UL (150-450) Mean Platelet Volume 6.4 FL (6.5-10.1) L Neutrophils (%) (Auto) % (45.0-75.0) Lymphocytes (%) (Auto) % (20.0-45.0) Monocytes (%) (Auto) % (1.0-10.0) Eosinophils (%) (Auto) % (0.0-3.0) Basophils (%) (Auto) % (0.0-2.0) Neutrophils % (Manual) Pending Lymphocytes % (Manual) Pending Platelet Estimate Pending Platelet Morphology Pending Sodium Level 138 MMOL/L (136-145) Potassium Level 4.9 MMOL/L (3.5-5.1) Chloride Level 108 MMOL/L (98-107) H Carbon Dioxide Level 19 MMOL/L (21-32) L Anion Gap 11 mmol/L (5-15) Blood Urea Nitrogen 25 mg/dL (7-18) H Creatinine 1.2 MG/DL (0.55-1.30) Estimat Glomerular Filtration Rate 44.4 mL/min (>60) Glucose Level 181 MG/DL (74-106) H Calcium Level 8.2 MG/DL (8.5-10.1) L Total Bilirubin 1.5 MG/DL (0.2-1.0) H Direct Bilirubin 0.8 MG/DL (0.0-0.3) H Aspartate Amino Transf (AST/SGOT) 87 U/L (15-37) H Alanine Aminotransferase (ALT/SGPT) 181 U/L (12-78) H Alkaline Phosphatase 623 U/L (46-116) H Total Protein 6.7 G/DL (6.4-8.2) Albumin 2.1 G/DL (3.4-5.0) L Globulin 4.6 g/dL Albumin/Globulin Ratio 0.5 (1.0-2.7) L Amylase Level 55 U/L (25-115) Lipase 429 U/L (73-393) H Current Medications Medications (Trade) Dose Ordered Sig/Ellen Route PRN Reason Start Time Stop Time Status Last Admin Dose Admin Acetaminophen (Tylenol) 650 mg Q4H PRN ORAL Mild Pain/Temp > 100.5 05/17/18 20:45 06/16/18 20:44 05/24/18 17:19 Acyclovir (Zovirax) 800 mg EVERY 8 HOURS ORAL 05/19/18 14:00 05/27/18 23:59 05/25/18 06:01 Al Hydroxide/Mg Hydroxide (Mylanta) 30 ml Q6H PRN ORAL Abdominal cramps 05/15/18 20:15 06/12/18 08:14 Albuterol Sulfate (Proventil) 2.5 mg Q4H PRN HHN Shortness of Breath 05/21/18 20:45 05/26/18 20:44 05/21/18 20:55 Aspirin (ASA) 81 mg DAILY ORAL 05/25/18 09:00 06/24/18 08:59 05/25/18 09:56 Chlorhexidine Gluconate (Leora-Hex 2%) 1 applic DAILY@2000 TOPIC 05/25/18 20:00 06/24/18 19:59 Dextrose (Dextrose 50%) 25 ml Q30M PRN IV Hypoglycemia 05/15/18 19:15 06/13/18 10:14 Dextrose (Dextrose 50%) 50 ml Q30M PRN IV Hypoglycemia 05/15/18 19:15 06/13/18 10:14 Enoxaparin Sodium (Lovenox) 80 mg DAILY SUBQ 05/22/18 09:00 06/21/18 08:59 05/23/18 08:57 Heparin Sodium/ Sodium Chloride (Heparin 2000 units/Ns 1000ml premix) 2,000 unit ONCE PRN INJ PICC LINE 05/25/18 09:00 05/25/18 23:59 Insulin Aspart (NovoLOG) BEFORE MEALS AND HS SUBQ 05/15/18 21:00 06/13/18 11:29 05/23/18 21:12 Lidocaine HCl (Xylocaine 1% 30ml) 30 ml ONCE PRN INJ PICC LINE 05/25/18 09:00 05/25/18 23:59 Magnesium Hydroxide (Mom) 30 ml DAILYPRN PRN ORAL Constipation 05/15/18 19:00 06/14/18 18:59 05/17/18 18:17 Metoprolol Tartrate (Lopressor) 5 mg Q2H PRN IVP For High Blood Pressure 05/24/18 17:00 06/23/18 16:59 Metoprolol Tartrate (Lopressor) 25 mg Q12HR ORAL 05/15/18 21:00 06/14/18 17:59 05/25/18 09:56 Pantoprazole (Protonix) 40 mg DAILY IVP 05/16/18 09:00 06/12/18 08:59 05/24/18 10:41 Sodium Chloride 1,000 ml @ 100 mls/hr Q10H IV 05/24/18 20:00 06/23/18 19:59 05/25/18 06:01 Khadra Melendez MD May 25, 2018 10:05
[2018-05-25 12:00] VITALS: BP 153/69
--- NOTE | 2018-05-25 12:26 | General Progress Note ---
Assessment/Plan Assessment/Plan Impression Diabetic ketoacidosis Anemia Transaminitis of unclear etiology Severe protein calorie malnutrition Evidence of pancreatitis, better Acute renal failure, improved Hyperglycemia Diabetes Hyponatremia Metabolic acidosis Hypercholesterolemia fever oral ulcers afib with RVR leukopenia pancreatitis attempt to dc per GI; await results ID recommendations noted will need rehab impression, plan, and exam edited and reviewed in detail care discussed with RN Subjective Allergies: Coded Allergies: SHELLFISH DERIVED (Verified Allergy, Unknown, swelling and itchiness, 05/14) Subjective EUS reviewed cared noted Objective Last 24 Hour Vital Signs Date Time Temp Pulse Resp B/P (MAP) Pulse Ox O2 Delivery O2 Flow Rate FiO2 05/25/18 09:56 74 151/81 05/25/18 09:00 Nasal Cannula 2.0 05/25/18 08:27 74 18 Nasal Cannula 2.0 28 05/25/18 08:27 Nasal Cannula 2.0 28 05/25/18 08:27 100 Nasal Cannula 2.0 28 05/25/18 08:00 2.0 05/25/18 08:00 98.2 76 16 151/81 (104) 100 05/25/18 07:46 74 05/25/18 04:00 2.0 05/25/18 04:00 98.2 73 18 144/67 (92) 98 05/25/18 04:00 79 05/25/18 00:00 2.0 05/25/18 00:00 85 05/25/18 00:00 97.0 74 18 145/75 (98) 100 05/24/18 21:04 99 140/63 05/24/18 21:00 Nasal Cannula 2.0 05/24/18 20:06 Nasal Cannula 3.0 32 05/24/18 20:05 99 18 Nasal Cannula 3.0 32 05/24/18 20:05 97 Nasal Cannula 3.0 32 05/24/18 20:00 2.0 05/24/18 20:00 99.8 86 17 140/63 (88) 98 05/24/18 20:00 85 05/24/18 17:49 99.0 05/24/18 16:00 2.0 05/24/18 16:00 100.5 88 24 137/70 (92) 98 05/24/18 16:00 81 05/24/18 14:30 98.1 87 28 141/97 (112) 99 05/24/18 13:30 99.1 83 20 154/72 (99) 100 05/24/18 13:06 83 28 183/86 100 Simple Mask 8 05/24/18 13:00 82 28 179/80 100 Simple Mask 8 05/24/18 12:56 81 28 182/92 100 Simple Mask 8 05/24/18 12:54 81 16 100 05/24/18 12:51 82 28 180/96 100 Simple Mask 8 05/24/18 12:46 98.6 81 28 162/97 100 Simple Mask 8 Intake and Output 05/24/18 05/25/18 19:00 07:00 Intake Total 400 ml Balance 400 ml IV Total 400 ml # Voids 2 1 Laboratory Tests 05/25/18 06:46: White Blood Count 8.1, Red Blood Count 3.44L, Hemoglobin 9.2L, Hematocrit 28.9L , Mean Corpuscular Volume 84, Mean Corpuscular Hemoglobin 26.7L, Mean Corpuscular Hemoglobin Concent 31.8L, Red Cell Distribution Width 18.4H, Platelet Count 236, Mean Platelet Volume 6.4L, Neutrophils (%) (Auto) , Lymphocytes (%) (Auto) , Monocytes (%) (Auto) , Eosinophils (%) (Auto) , Basophils (%) (Auto) , Differential Total Cells Counted 100, Neutrophils % ( Manual) 64, Lymphocytes % (Manual) 14L, Monocytes % (Manual) 22H, Eosinophils % (Manual) 0, Basophils % (Manual) 0, Band Neutrophils 0, Platelet Estimate Adequate, Platelet Morphology Normal, Anisocytosis 1+, Sodium Level 138, Potassium Level 4.9, Chloride Level 108H, Carbon Dioxide Level 19L, Anion Gap 11 , Blood Urea Nitrogen 25H, Creatinine 1.2, Estimat Glomerular Filtration Rate 44.4, Glucose Level 181H, Calcium Level 8.2L, Total Bilirubin 1.5H, Direct Bilirubin 0.8H, Aspartate Amino Transf (AST/SGOT) 87H, Alanine Aminotransferase (ALT/SGPT) 181H, Alkaline Phosphatase 623H, Total Protein 6.7, Albumin 2.1L, Globulin 4.6, Albumin/Globulin Ratio 0.5L, Amylase Level 55, Lipase 429H Height (Feet): 4 Height (Inches): 10.00 Weight (Pounds): 169 Objective WDWN NAD clear breath sounds bilaterally without rhonchi or wheeze S1S2 RRR without MRG NABS nontender no HSM no CCE nonfocal oral ulcers nearly resolved alert Jesus Lew MD May 25, 2018 12:26
--- NOTE | 2018-05-25 12:32 | NUR ---
NURSE NOTES: @ 12:33pm Received [address] Crane for " Remeron 30 mg 1 tab po q HS #30" 5 refills. Stored in chart until patient's discharge.
--- NOTE | 2018-05-25 14:28 | GI Progress Note ---
Assessment/Plan Problems: (1) Pancreatitis ICD Codes: K85.90 - Acute pancreatitis without necrosis or infection, unspecified SNOMED: 64186927 Qualifiers: Qualified Codes: K85.90 - Acute pancreatitis without necrosis or infection, unspecified (2) DKA (diabetic ketoacidosis) ICD Codes: E13.10 - Other specified diabetes mellitus with ketoacidosis without coma SNOMED: 561546548, [id number] Qualifiers: Qualified Codes: E10.10 - Type 1 diabetes mellitus with ketoacidosis without coma (3) Diabetes ICD Codes: E11.9 - Type 2 diabetes mellitus without complications SNOMED: 94616390 Status: stable Status Narrative Discussed with Dr. Benito Assessment/Plan Status post EUS summary of findings 1. Pancreatitis, most probably acute, without any pancreatic duct dilatation or mass. 2. No evidence of any common bile duct dilatation was seen with common bile duct stone. 3. Gallbladder wall thickening, nonspecific. 4. 1 cm kristina hepatis lymph node, nonspecific. Elevated lipase levels, downtrending RECOMMENDATIONS: Clear liquid diet, advance as tolerated No need for ERCP Pain management Trend lipase Zofran as needed Follow-up labs The patient was seen and examined at bedside and all new and available data was reviewed in the patients chart. I agree with the above findings, impression and plan. (Patient seen earlier today. Signature stamp does not reflect patient encounter time.). - Neeraj Benito MD Subjective Subjective abdominal pain improved Objective Last 24 Hour Vital Signs Date Time Temp Pulse Resp B/P (MAP) Pulse Ox O2 Delivery O2 Flow Rate FiO2 05/25/18 12:00 97.6 76 16 153/69 (97) 99 05/25/18 12:00 2.0 05/25/18 12:00 71 05/25/18 09:56 74 151/81 05/25/18 09:00 Nasal Cannula 2.0 05/25/18 08:27 74 18 Nasal Cannula 2.0 28 05/25/18 08:27 Nasal Cannula 2.0 28 05/25/18 08:27 100 Nasal Cannula 2.0 28 05/25/18 08:00 2.0 05/25/18 08:00 98.2 76 16 151/81 (104) 100 05/25/18 07:46 74 05/25/18 04:00 2.0 05/25/18 04:00 98.2 73 18 144/67 (92) 98 05/25/18 04:00 79 05/25/18 00:00 2.0 05/25/18 00:00 85 05/25/18 00:00 97.0 74 18 145/75 (98) 100 05/24/18 21:04 99 140/63 05/24/18 21:00 Nasal Cannula 2.0 05/24/18 20:06 Nasal Cannula 3.0 32 05/24/18 20:05 99 18 Nasal Cannula 3.0 32 05/24/18 20:05 97 Nasal Cannula 3.0 32 05/24/18 20:00 2.0 05/24/18 20:00 99.8 86 17 140/63 (88) 98 05/24/18 20:00 85 05/24/18 17:49 99.0 05/24/18 16:00 2.0 05/24/18 16:00 100.5 88 24 137/70 (92) 98 05/24/18 16:00 81 05/24/18 14:30 98.1 87 28 141/97 (112) 99 Intake and Output 05/24/18 05/25/18 18:59 06:59 Intake Total 400 ml Balance 400 ml IV Total 400 ml # Voids 2 1 Laboratory Tests Test 05/25/18 06:46 White Blood Count 8.1 K/UL (4.8-10.8) Red Blood Count 3.44 M/UL (4.20-5.40) L Hemoglobin 9.2 G/DL (12.0-16.0) L Hematocrit 28.9 % (37.0-47.0) L Mean Corpuscular Volume 84 FL (80-99) Mean Corpuscular Hemoglobin 26.7 PG (27.0-31.0) L Mean Corpuscular Hemoglobin Concent 31.8 G/DL (32.0-36.0) L Red Cell Distribution Width 18.4 % (11.6-14.8) H Platelet Count 236 K/UL (150-450) Mean Platelet Volume 6.4 FL (6.5-10.1) L Neutrophils (%) (Auto) % (45.0-75.0) Lymphocytes (%) (Auto) % (20.0-45.0) Monocytes (%) (Auto) % (1.0-10.0) Eosinophils (%) (Auto) % (0.0-3.0) Basophils (%) (Auto) % (0.0-2.0) Differential Total Cells Counted 100 Neutrophils % (Manual) 64 % (45-75) Lymphocytes % (Manual) 14 % (20-45) L Monocytes % (Manual) 22 % (1-10) H Eosinophils % (Manual) 0 % (0-3) Basophils % (Manual) 0 % (0-2) Band Neutrophils 0 % (0-8) Platelet Estimate Adequate Platelet Morphology Normal Anisocytosis 1+ Sodium Level 138 MMOL/L (136-145) Potassium Level 4.9 MMOL/L (3.5-5.1) Chloride Level 108 MMOL/L (98-107) H Carbon Dioxide Level 19 MMOL/L (21-32) L Anion Gap 11 mmol/L (5-15) Blood Urea Nitrogen 25 mg/dL (7-18) H Creatinine 1.2 MG/DL (0.55-1.30) Estimat Glomerular Filtration Rate 44.4 mL/min (>60) Glucose Level 181 MG/DL (74-106) H Calcium Level 8.2 MG/DL (8.5-10.1) L Total Bilirubin 1.5 MG/DL (0.2-1.0) H Direct Bilirubin 0.8 MG/DL (0.0-0.3) H Aspartate Amino Transf (AST/SGOT) 87 U/L (15-37) H Alanine Aminotransferase (ALT/SGPT) 181 U/L (12-78) H Alkaline Phosphatase 623 U/L (46-116) H Total Protein 6.7 G/DL (6.4-8.2) Albumin 2.1 G/DL (3.4-5.0) L Globulin 4.6 g/dL Albumin/Globulin Ratio 0.5 (1.0-2.7) L Amylase Level 55 U/L (25-115) Lipase 429 U/L (73-393) H Height (Feet): 4 Height (Inches): 10.00 Weight (Pounds): 169 General Appearance: WD/WN, no apparent distress, alert Cardiovascular: normal rate Respiratory/Chest: normal breath sounds, no respiratory distress Abdominal Exam: normal bowel sounds, non tender, soft Extremities: normal range of motion, non-tender Ros Berry NP May 25, 2018 14:28
--- NOTE | 2018-05-25 14:28 | Diagnostic Imaging Report ---
APPROVED REPORT CPT Code: 38214 Present Symptoms Comments: Pain BILATERAL: Imaging reveals a patent deep venous system bilaterally. There is no evidence of thrombus within the femoral, popliteal or tibial segments. The greater saphenous veins are also within normal limits. Doppler indicates normal spontaneous flow within these segments.
--- NOTE | 2018-05-25 15:14 | NUR ---
*-* INSURANCE *-* ALL CLINICALS,REVIEWS AND INTERQUAL HAVE BEEN FAXED TO: [facility] F:[phone]
--- NOTE | 2018-05-25 15:19 | Diagnostic Imaging Report ---
Indication: watermaster venous access Findings: After the indications, procedure, risks, complications, and alternatives of the procedure were explained, written informed consent was obtained. The left upper extremity was prepped with alcohol. All elements of maximal sterile barrier technique were followed including usage of a cap, mask, sterile gown, sterile gloves, hand hygiene and a large sterile sheet. Sonographic evaluation of the upper extremity was performed demonstrating a patent and compressible basilic vein. Access was obtained under real-time ultrasound guidance (with utilization of sterile gel and sterile probe cover) and digital image was saved and archived. An .018 wire was introduced. Needle exchanged for a 5 Frisian peel-away sheath. Measurements were obtained. A 5 Frisian dual-lumen Power PICC line catheter was cut to 41 cm and introduced over the wire. Peel-away sheath and wire were removed.Catheter was secured to the skin using 2-0 Prolene suture. Both ports aspirate and flush easily. Fluoroscopic images show distal tip in the superior vena cava. Total fluoroscopic time 7.8 seconds. Impression: Successful placement of an upper extremity PICC line catheter
--- NOTE | 2018-05-25 15:32 | NUR ---
NURSE NOTES:WOUND CARE FOLLOW-UP NOTES:Fungal dermatitis lower abd folds mons pubis ,groin and buttocks resolving. Loose dry brown skin noted .Erythema with scattered partial thickness openings to R gluteal cleft. Moisture Barrier paste applied to affected areas. no new skin concerns noted. Tx.Plan :Continue current Tx orders . Reposition at least every 2hours or as tolerated. Off-load heels with pillow.
[2018-05-25 16:00] VITALS: BP 156/66
--- NOTE | 2018-05-25 16:16 | General Progress Note ---
Assessment/Plan Assessment/Plan Assessment and Recs # Pancytopenia -- appears that initial hep and hiv are negative though final results to follow, liver shows no major hsm or cirrhosis, may consider meds or bone marrow process, smear reviewed --> this pancytopenia is acute in onset, over last several days, thus most likely abx infection related --> query meds, review with ID, is on micafungin now, monitor counts closely --> if no other cause and/or worsens, may consider flow cytometry or a bone marrow biopsy --> nepogen 300mcg sq to maintain anc >1500 --> wbc trend : 1.7-->4.3-->3.1-->3.4-->7.7-->8.1 # Anemia of chronic disease - monitor anemia panel --> hemolysis does not appear to be the case --> anemia panel reviewed --> hgb trend: 8.3-->9.2-->8.9-->8.7 # Paroxysmal atrial fibrillation, due to CHADS-VASC score of 5, we require to keep anticoagulated, on metoprolol --> continue on apixaban # Hx of CAD, s/p CABG, ASA , atorvastatin and metoprolol. No wall motion abnormalities on Echo. LVEF ~55%. --> appreciate cards recs # Sinus tachycardia due to hypovolemia, resolved. # DKA, resolved. --> continue monitor # DM, non-compliant with medications. # Hx of HTN, controlled with metoprolol. # pancreatitis # increased LFT The timing of this note does not necessarily reflect the time of the patient was seen. Greatly appreciate consultation! Subjective Constitutional: Denies: no symptoms, chills, diaphoresis, fever, malaise, weakness, other HEENT: Denies: no symptoms, eye pain, blurred vision, tearing, double vision, ear pain, ear discharge, nose pain, nose congestion, throat pain, throat swelling, mouth pain, mouth swelling, other Cardiovascular: Denies: no symptoms, chest pain, edema, irregular heart rate, lightheadedness, palpitations, syncope, other Gastrointestinal/Abdominal: Denies: no symptoms, abdomen distended, abdominal pain, black stools, tarry stools, blood in stool, constipated, diarrhea, difficulty swallowing, nausea, poor appetite, poor fluid intake, rectal bleeding , vomiting, other Endocrine: Denies: no symptoms, excessive sweating, flushing, intolerance to cold, intolerance to heat, increased hunger, increased thirst, increased urine, unexplained weight gain, unexplained weight loss, other Hematologic/Lymphatic: Denies: no symptoms, anemia, easy bleeding, easy bruising, other Allergies: Coded Allergies: SHELLFISH DERIVED (Verified Allergy, Unknown, swelling and itchiness, 05/14) Subjective 05/18: Pt is awake and comfortable, no events, leukopenia improved, wbc 4.3, plt 151 05/19: seen by bedside, awake, comfortable, plt 122 05/20: Pt is awake and comfortable, no events 05/21: Pt is seen in the room, resting in bed, no fevers or chills, wbc 8.7, plt 117 05/23: Pt is resting in bed, awake, comfortable, no fevers or chills, no acute distress. 05/24: EGD and EUS done today, has no gallbladder stones, only pancreatitis, no events 25: no events, dermatitis has improved, off loading of heels, pancreatitis and dka better Objective Last 24 Hour Vital Signs Date Time Temp Pulse Resp B/P (MAP) Pulse Ox O2 Delivery O2 Flow Rate FiO2 05/25/18 12:00 97.6 76 16 153/69 (97) 99 05/25/18 12:00 2.0 05/25/18 12:00 71 05/25/18 09:56 74 151/81 05/25/18 09:00 Nasal Cannula 2.0 05/25/18 08:27 74 18 Nasal Cannula 2.0 28 05/25/18 08:27 Nasal Cannula 2.0 28 05/25/18 08:27 100 Nasal Cannula 2.0 28 05/25/18 08:00 2.0 05/25/18 08:00 98.2 76 16 151/81 (104) 100 05/25/18 07:46 74 05/25/18 04:00 2.0 05/25/18 04:00 98.2 73 18 144/67 (92) 98 05/25/18 04:00 79 05/25/18 00:00 2.0 05/25/18 00:00 85 05/25/18 00:00 97.0 74 18 145/75 (98) 100 05/24/18 21:04 99 140/63 05/24/18 21:00 Nasal Cannula 2.0 05/24/18 20:06 Nasal Cannula 3.0 32 05/24/18 20:05 99 18 Nasal Cannula 3.0 32 05/24/18 20:05 97 Nasal Cannula 3.0 32 05/24/18 20:00 2.0 05/24/18 20:00 99.8 86 17 140/63 (88) 98 05/24/18 20:00 85 05/24/18 17:49 99.0 Intake and Output 05/24/18 05/25/18 18:59 06:59 Intake Total 400 ml Balance 400 ml IV Total 400 ml # Voids 2 1 Laboratory Tests 05/25/18 06:46: White Blood Count 8.1, Red Blood Count 3.44L, Hemoglobin 9.2L, Hematocrit 28.9L , Mean Corpuscular Volume 84, Mean Corpuscular Hemoglobin 26.7L, Mean Corpuscular Hemoglobin Concent 31.8L, Red Cell Distribution Width 18.4H, Platelet Count 236, Mean Platelet Volume 6.4L, Neutrophils (%) (Auto) , Lymphocytes (%) (Auto) , Monocytes (%) (Auto) , Eosinophils (%) (Auto) , Basophils (%) (Auto) , Differential Total Cells Counted 100, Neutrophils % ( Manual) 64, Lymphocytes % (Manual) 14L, Monocytes % (Manual) 22H, Eosinophils % (Manual) 0, Basophils % (Manual) 0, Band Neutrophils 0, Platelet Estimate Adequate, Platelet Morphology Normal, Anisocytosis 1+, Sodium Level 138, Potassium Level 4.9, Chloride Level 108H, Carbon Dioxide Level 19L, Anion Gap 11 , Blood Urea Nitrogen 25H, Creatinine 1.2, Estimat Glomerular Filtration Rate 44.4, Glucose Level 181H, Calcium Level 8.2L, Total Bilirubin 1.5H, Direct Bilirubin 0.8H, Aspartate Amino Transf (AST/SGOT) 87H, Alanine Aminotransferase (ALT/SGPT) 181H, Alkaline Phosphatase 623H, Total Protein 6.7, Albumin 2.1L, Globulin 4.6, Albumin/Globulin Ratio 0.5L, Amylase Level 55, Lipase 429H Height (Feet): 4 Height (Inches): 10.00 Weight (Pounds): 169 Objective PHYSICAL EXAMINATION: GENERAL: Pleasant Chinese woman seen in the ICU. HEENT: Normocephalic and atraumatic. Sclerae anicteric. Oropharynx clear. NECK: Supple. CHEST: Clear to auscultation. CARDIOVASCULAR: Revealed regular rate. ABDOMEN: Soft. Good bowel sounds. There is no organomegaly or tenderness. Anterior chest and abdomen scars were as expected. EXTREMITIES: Revealed no edema. Armando Bowen MD May 25, 2018 16:16
--- NOTE | 2018-05-25 19:30 | NUR ---
HAND-OFF: Report given to WAYNE Holman.
--- NOTE | 2018-05-25 19:36 | NUR ---
NURSE NOTES: Report received from WAYNE Gregory. Pt is lying comfortably in semi-fowlers with no signs of distress. Pt is A+Ox3/4 and denies pain/SOB. Respirations are even and unlabored on 2 L NC. PICC line is patent, intact, and running fluids at prescribed rate. Bed is at lowest position, brakes engaged, siderails x2, bed alarm on, and call light within reach. Pt is in stable condition at this time; will continue to monitor.
[2018-05-25 20:00] VITALS: BP 152/71
[2018-05-25] MEDS: Dyna-Hex 2% Top Sol 2oz TOPIC SCH (20:38)
--- NOTE | 2018-05-25 20:51 | NUR ---
NURSE NOTES: Pt's eyes are difficult to open (Left more than Right) and there is dry, scant, yellow discharge in both (left more than right). Made Dr. Lew aware and he ordered gentamicin eye drops. Order noted and carried out.
[2018-05-25] MEDS: Gentamicin 0.3% Opth Soln 5ml BOTH EYES SCH (22:06)
[2018-05-26] VITALS: BP 160/74
[2018-05-26 04:00] VITALS: BP 155/79
[2018-05-26] MEDS: NovoLOG Insulin Flexpen SUBQ SCH ×4 (05:33→21:47)
[2018-05-26 07:14] LABS: BASOPHILS % (AUTO) 2.4 % (0.0-2.0); EOSINOPHILS % (AUTO) 0.2 % (0.0-3.0); HEMATOCRIT 26.5 % (37.0-47.0); HEMOGLOBIN 8.6 G/DL (12.0-16.0); LYMPHOCYTES % (AUTO) 16.9 % (20.0-45.0); MEAN CORPUSCULAR VOLUME 84 FL (80-99); MONOCYTES % (AUTO) 15.9 % (1.0-10.0); NEUTROPHILS % (AUTO) 64.6 % (45.0-75.0); PLATELET COUNT 264 K/UL (150-450); RED BLOOD COUNT 3.17 M/UL (4.20-5.40); RED CELL DISTRIBUTION WIDTH 18.4 % (11.6-14.8); WHITE BLOOD COUNT 10.2 K/UL (4.8-10.8)
--- NOTE | 2018-05-26 07:26 | NUR ---
HAND-OFF: Report given to WAYNE Salinas. Pt is in stable condition; plan of care endorsed.
--- NOTE | 2018-05-26 07:27 | NUR ---
NURSE NOTES: Report received from WAYNE Holman. Pt is resting comfortably in semi-fowlers position, sleeping. No signs and symptoms of acute distress at this time. Respirations are even and unlabored on 2 L NC. PICC line is patent, intact, and running fluids at prescribed rate. Bed is at lowest position, brakes engaged, two side rails up, bed alarm on. Call light and bed side table within reach. Pt is in stable condition at this time; will continue to monitor and follow plan of care.
[2018-05-26 07:33] LABS: ANION GAP 13 mmol/L (5-15); BLOOD UREA NITROGEN 21 mg/dL (7-18); CARBON DIOXIDE 18 MMOL/L (21-32); CHLORIDE 108 MMOL/L (98-107); CREATININE 0.9 MG/DL (0.55-1.30); POTASSIUM 4.4 MMOL/L (3.5-5.1); SODIUM 139 MMOL/L (136-145)
[2018-05-26 07:38] LABS: CALCIUM 8.1 MG/DL (8.5-10.1)
[2018-05-26 08:00] VITALS: BP 158/100
[2018-05-26] MEDS: Gentamicin 0.3% Opth Soln 5ml BOTH EYES SCH ×4 (09:00→21:45)
[2018-05-26] MEDS: Aspirin Baby 81mg ORAL SCH (09:01)
[2018-05-26] MEDS: Enoxaparin 80mg Inj SUBQ SCH ×2 (09:01→21:46)
[2018-05-26] MEDS: Metoprolol 25mg tab ORAL SCH ×2 (09:01→21:45)
[2018-05-26] MEDS: Pantoprazole Inj IVP SCH (09:02)
--- NOTE | 2018-05-26 11:07 | General Progress Note ---
Assessment/Plan Assessment/Plan Assessment and Recs # Pancytopenia -- appears that initial hep and hiv are negative though final results to follow, liver shows no major hsm or cirrhosis, may consider meds or bone marrow process, smear reviewed --> this pancytopenia is acute in onset, over last several days, thus most likely abx infection related --> query meds, review with ID, is on micafungin now, monitor counts closely --> if no other cause and/or worsens, may consider flow cytometry or a bone marrow biopsy --> nepogen 300mcg sq to maintain anc >1500 --> wbc trend : 1.7-->4.3-->3.1-->3.4-->7.7-->8.1 # Anemia of chronic disease - monitor anemia panel --> hemolysis does not appear to be the case --> anemia panel reviewed --> hgb trend: 8.3-->9.2-->8.9-->8.7 # Paroxysmal atrial fibrillation, due to CHADS-VASC score of 5, we require to keep anticoagulated, on metoprolol --> continue on apixaban # Hx of CAD, s/p CABG, ASA , atorvastatin and metoprolol. No wall motion abnormalities on Echo. LVEF ~55%. --> appreciate cards recs # Sinus tachycardia due to hypovolemia, resolved. # DKA, resolved. --> continue monitor # DM, non-compliant with medications. # Hx of HTN, controlled with metoprolol. # pancreatitis # increased LFT The timing of this note does not necessarily reflect the time of the patient was seen. Greatly appreciate consultation! Subjective Constitutional: Denies: no symptoms, chills, diaphoresis, fever, malaise, weakness, other Cardiovascular: Denies: no symptoms, chest pain, edema, irregular heart rate, lightheadedness, palpitations, syncope, other Respiratory: Denies: no symptoms, cough, orthopnea, shortness of breath, SOB with excertion, SOB at rest, sputum, stridor, wheezing, other Gastrointestinal/Abdominal: Denies: no symptoms, abdomen distended, abdominal pain, black stools, tarry stools, blood in stool, constipated, diarrhea, difficulty swallowing, nausea, poor appetite, poor fluid intake, rectal bleeding , vomiting, other Genitourinary: Denies: no symptoms, burning, discharge, frequency, flank pain, hematuria, incontinence, pain, urgency, other Neurologic/Psychiatric: Denies: no symptoms, anxiety, depressed, emotional problems, headache, numbness, paresthesia, pre-existing deficit, seizure, tingling, tremors, weakness, other Endocrine: Denies: no symptoms, excessive sweating, flushing, intolerance to cold, intolerance to heat, increased hunger, increased thirst, increased urine, unexplained weight gain, unexplained weight loss, other Hematologic/Lymphatic: Denies: no symptoms, anemia, easy bleeding, easy bruising, other Allergies: Coded Allergies: SHELLFISH DERIVED (Verified Allergy, Unknown, swelling and itchiness, 05/14) Subjective 05/18: Pt is awake and comfortable, no events, leukopenia improved, wbc 4.3, plt 151 05/19: seen by bedside, awake, comfortable, plt 122 05/20: Pt is awake and comfortable, no events 2: Pt is seen in the room, resting in bed, no fevers or chills, wbc 8.7, plt 117 2: Pt is resting in bed, awake, comfortable, no fevers or chills, no acute distress. 2: EGD and EUS done today, has no gallbladder stones, only pancreatitis, no events 2: no events, dermatitis has improved, off loading of heels, pancreatitis and dka better 2: Pt is awake, comfortable, no acute events overnight, hgb 8.6 Objective Last 24 Hour Vital Signs Date Time Temp Pulse Resp B/P (MAP) Pulse Ox O2 Delivery O2 Flow Rate FiO2 05/26/18 09:01 83 158/100 05/26/18 09:00 Nasal Cannula 2.0 05/26/18 08:00 2.0 05/26/18 08:00 98.9 83 23 158/100 (119) 99 05/26/18 04:00 97.9 84 20 155/79 (104) 99 05/26/18 04:00 80 05/26/18 04:00 2.0 05/26/18 00:00 99.0 87 20 160/74 (102) 97 05/26/18 00:00 92 05/25/18 22:29 Nasal Cannula 2.0 28 05/25/18 22:29 98 Nasal Cannula 2.0 28 05/25/18 22:28 80 20 Nasal Cannula 2.0 28 05/25/18 21:00 Nasal Cannula 2.0 05/25/18 20:39 82 152/71 05/25/18 20:00 98.5 82 20 152/71 (98) 98 05/25/18 20:00 2.0 05/25/18 20:00 80 05/25/18 16:08 75 05/25/18 16:00 2.0 05/25/18 16:00 99.1 75 16 156/66 (96) 99 05/25/18 12:00 97.6 76 16 153/69 (97) 99 05/25/18 12:00 2.0 05/25/18 12:00 71 Intake and Output 05/25/18 05/26/18 19:00 07:00 Intake Total 120 ml 60 ml Balance 120 ml 60 ml Intake Oral 120 ml 60 ml # Voids 2 2 Laboratory Tests 05/26/18 05:14: White Blood Count 10.2, Red Blood Count 3.17L, Hemoglobin 8.6L, Hematocrit 26.5L , Mean Corpuscular Volume 84, Mean Corpuscular Hemoglobin 27.2, Mean Corpuscular Hemoglobin Concent 32.4, Red Cell Distribution Width 18.4H, Platelet Count 264, Mean Platelet Volume 5.7L, Neutrophils (%) (Auto) 64.6, Lymphocytes (%) (Auto) 16.9L, Monocytes (%) (Auto) 15.9H, Eosinophils (%) (Auto ) 0.2, Basophils (%) (Auto) 2.4H, Sodium Level 139, Potassium Level 4.4, Chloride Level 108H, Carbon Dioxide Level 18L, Anion Gap 13, Blood Urea Nitrogen 21H, Creatinine 0.9, Estimat Glomerular Filtration Rate > 60, Glucose Level 139H, Calcium Level 8.1L, Lipase 409H Height (Feet): 4 Height (Inches): 10.00 Weight (Pounds): 173 Objective PHYSICAL EXAMINATION: GENERAL: Pleasant [place] woman seen in the ICU. HEENT: Normocephalic and atraumatic. Sclerae anicteric. Oropharynx clear. NECK: Supple. CHEST: Clear to auscultation. CARDIOVASCULAR: Revealed regular rate. ABDOMEN: Soft. Good bowel sounds. There is no organomegaly or tenderness. Anterior chest and abdomen scars were as expected. EXTREMITIES: Revealed no edema. Armando Bowen MD May 26, 2018 11:07
[2018-05-26 12:00] VITALS: BP 126/82
--- NOTE | 2018-05-26 12:41 | General Progress Note ---
Assessment/Plan Assessment/Plan Impression Diabetic ketoacidosis Anemia Transaminitis of unclear etiology Severe protein calorie malnutrition Evidence of pancreatitis, better Acute renal failure, improved Hyperglycemia Diabetes Hyponatremia Metabolic acidosis Hypercholesterolemia fever oral ulcers afib with RVR leukopenia pancreatitis dc planning advance diet impression, plan, and exam edited and reviewed in detail care discussed with RN Subjective Allergies: Coded Allergies: SHELLFISH DERIVED (Verified Allergy, Unknown, swelling and itchiness, 05/14) Subjective diet advanced comfortable Objective Last 24 Hour Vital Signs Date Time Temp Pulse Resp B/P (MAP) Pulse Ox O2 Delivery O2 Flow Rate FiO2 05/26/18 09:01 83 158/100 05/26/18 09:00 Nasal Cannula 2.0 05/26/18 08:00 2.0 05/26/18 08:00 98.9 83 23 158/100 (119) 99 05/26/18 04:00 97.9 84 20 155/79 (104) 99 05/26/18 04:00 80 05/26/18 04:00 2.0 05/26/18 00:00 99.0 87 20 160/74 (102) 97 05/26/18 00:00 92 05/25/18 22:29 Nasal Cannula 2.0 28 05/25/18 22:29 98 Nasal Cannula 2.0 28 05/25/18 22:28 80 20 Nasal Cannula 2.0 28 05/25/18 21:00 Nasal Cannula 2.0 05/25/18 20:39 82 152/71 05/25/18 20:00 98.5 82 20 152/71 (98) 98 05/25/18 20:00 2.0 05/25/18 20:00 80 05/25/18 16:08 75 05/25/18 16:00 2.0 05/25/18 16:00 99.1 75 16 156/66 (96) 99 Intake and Output 05/25/18 05/26/18 19:00 07:00 Intake Total 120 ml 60 ml Balance 120 ml 60 ml Intake Oral 120 ml 60 ml # Voids 2 2 Laboratory Tests 05/26/18 05:14: White Blood Count 10.2, Red Blood Count 3.17L, Hemoglobin 8.6L, Hematocrit 26.5L , Mean Corpuscular Volume 84, Mean Corpuscular Hemoglobin 27.2, Mean Corpuscular Hemoglobin Concent 32.4, Red Cell Distribution Width 18.4H, Platelet Count 264, Mean Platelet Volume 5.7L, Neutrophils (%) (Auto) 64.6, Lymphocytes (%) (Auto) 16.9L, Monocytes (%) (Auto) 15.9H, Eosinophils (%) (Auto ) 0.2, Basophils (%) (Auto) 2.4H, Sodium Level 139, Potassium Level 4.4, Chloride Level 108H, Carbon Dioxide Level 18L, Anion Gap 13, Blood Urea Nitrogen 21H, Creatinine 0.9, Estimat Glomerular Filtration Rate > 60, Glucose Level 139H, Calcium Level 8.1L, Lipase 409H Height (Feet): 4 Height (Inches): 10.00 Weight (Pounds): 173 Objective WDWN NAD clear breath sounds bilaterally without rhonchi or wheeze S1S2 RRR without MRG NABS nontender no HSM no CCE nonfocal oral ulcers nearly resolved alert Jesus Lew MD May 26, 2018 12:41
--- NOTE | 2018-05-26 13:08 | GI Progress Note ---
Assessment/Plan Problems: (1) Pancreatitis ICD Codes: K85.90 - Acute pancreatitis without necrosis or infection, unspecified SNOMED: 02743755 Qualifiers: Qualified Codes: K85.90 - Acute pancreatitis without necrosis or infection, unspecified (2) DKA (diabetic ketoacidosis) ICD Codes: E13.10 - Other specified diabetes mellitus with ketoacidosis without coma SNOMED: 513232068, 37337109 Qualifiers: Qualified Codes: E10.10 - Type 1 diabetes mellitus with ketoacidosis without coma (3) Diabetes ICD Codes: E11.9 - Type 2 diabetes mellitus without complications SNOMED: 29120195 Status: stable, progressing Status Narrative Discussed with Dr. Benito Assessment/Plan Status post EUS summary of findings 1. Pancreatitis, most probably acute, without any pancreatic duct dilatation or mass. 2. No evidence of any common bile duct dilatation was seen with common bile duct stone. 3. Gallbladder wall thickening, nonspecific. 4. 1 cm kristina hepatis lymph node, nonspecific. Elevated lipase levels, downtrending RECOMMENDATIONS: Advance to soft renal diet No need for ERCP Pain management Trend lipase Zofran as needed Follow-up labs The patient was seen and examined at bedside and all new and available data was reviewed in the patients chart. I agree with the above findings, impression and plan. (Patient seen earlier today. Signature stamp does not reflect patient encounter time.). - Neeraj Benito MD Subjective Gastrointestinal/Abdominal: Reports: no symptoms Subjective denies any abdominal pain Objective Last 24 Hour Vital Signs Date Time Temp Pulse Resp B/P (MAP) Pulse Ox O2 Delivery O2 Flow Rate FiO2 05/26/18 12:00 97.9 79 24 126/82 (97) 98 05/26/18 09:01 83 158/100 05/26/18 09:00 Nasal Cannula 2.0 05/26/18 08:00 2.0 05/26/18 08:00 98.9 83 23 158/100 (119) 99 05/26/18 08:00 86 05/26/18 04:00 97.9 84 20 155/79 (104) 99 05/26/18 04:00 80 05/26/18 04:00 2.0 05/26/18 00:00 99.0 87 20 160/74 (102) 97 05/26/18 00:00 92 05/25/18 22:29 Nasal Cannula 2.0 28 05/25/18 22:29 98 Nasal Cannula 2.0 28 05/25/18 22:28 80 20 Nasal Cannula 2.0 28 05/25/18 21:00 Nasal Cannula 2.0 05/25/18 20:39 82 152/71 05/25/18 20:00 98.5 82 20 152/71 (98) 98 05/25/18 20:00 2.0 05/25/18 20:00 80 05/25/18 16:08 75 05/25/18 16:00 2.0 05/25/18 16:00 99.1 75 16 156/66 (96) 99 Intake and Output 05/25/18 05/26/18 19:00 07:00 Intake Total 120 ml 60 ml Balance 120 ml 60 ml Intake Oral 120 ml 60 ml # Voids 2 2 Laboratory Tests Test 05/26/18 05:14 White Blood Count 10.2 K/UL (4.8-10.8) Red Blood Count 3.17 M/UL (4.20-5.40) L Hemoglobin 8.6 G/DL (12.0-16.0) L Hematocrit 26.5 % (37.0-47.0) L Mean Corpuscular Volume 84 FL (80-99) Mean Corpuscular Hemoglobin 27.2 PG (27.0-31.0) Mean Corpuscular Hemoglobin Concent 32.4 G/DL (32.0-36.0) Red Cell Distribution Width 18.4 % (11.6-14.8) H Platelet Count 264 K/UL (150-450) Mean Platelet Volume 5.7 FL (6.5-10.1) L Neutrophils (%) (Auto) 64.6 % (45.0-75.0) Lymphocytes (%) (Auto) 16.9 % (20.0-45.0) L Monocytes (%) (Auto) 15.9 % (1.0-10.0) H Eosinophils (%) (Auto) 0.2 % (0.0-3.0) Basophils (%) (Auto) 2.4 % (0.0-2.0) H Sodium Level 139 MMOL/L (136-145) Potassium Level 4.4 MMOL/L (3.5-5.1) Chloride Level 108 MMOL/L (98-107) H Carbon Dioxide Level 18 MMOL/L (21-32) L Anion Gap 13 mmol/L (5-15) Blood Urea Nitrogen 21 mg/dL (7-18) H Creatinine 0.9 MG/DL (0.55-1.30) Estimat Glomerular Filtration Rate > 60 mL/min (>60) Glucose Level 139 MG/DL (74-106) H Calcium Level 8.1 MG/DL (8.5-10.1) L Lipase 409 U/L (73-393) H Height (Feet): 4 Height (Inches): 10.00 Weight (Pounds): 173 General Appearance: WD/WN, no apparent distress, alert Cardiovascular: normal rate Respiratory/Chest: normal breath sounds, no respiratory distress Abdominal Exam: normal bowel sounds, non tender, soft Extremities: non-tender Ros Berry NP May 26, 2018 13:08
--- NOTE | 2018-05-26 15:35 | NUR ---
RD ASSESSMENT & RECOMMENDATIONS SEE CARE ACTIVITY FOR COMPLETE ASSESSMENT DAILY ESTIMATED NEEDS: Needs based on DM, cardiac, obese/ 54kg abw 25-30 kcals/kg 1747-0623 total kcals 1-1.5 g protein/kg 54-81 g total protein 25-30 mL/kg 9196-2520 total fluid mLs NUTRITION DIAGNOSIS: 1) Altered nutrition related lab values R/T diabetes, clinical condition as evidenced by A1C 11.4, increased from 8.1 in August 2017, DKA w/ adm ZW=546-> 139, 181 improved, elev BNP (2846), elev creat (1.7-> now wnl), elev LFTs, trending back down, elev lipase (>2000 -> 409 trend down). CURRENT DIET:CCHO MED, RENAL/ SOFT EASY CHEW PO DIET RECOMMENDATIONS: CCHO LOW, LOW NA, LOW FAT/ texture as tolerated ADDITIONAL RECOMMENDATIONS: 1) Standing wt as able for accurate CBW 2) Monitor PO tolerance and PO acceptance- pancreatitis dx 3) Monitor BGs- DKA dx 4) Monitor liver fxn and lipase 5) Hugo 1pkt BID for skin integrity .
[2018-05-26 16:00] VITALS: BP 157/76
--- NOTE | 2018-05-26 19:40 | NUR ---
HAND-OFF: Report given to WAYNE Holman.
--- NOTE | 2018-05-26 19:43 | NUR ---
NURSE NOTES: Report received from WAYNE Salinas. Pt is lying comfortably in semi-fowlers with no signs of distress. Pt is A+Ox3 and denies pain/SOB. Respirations are even and unlabored on 2 L NC. PICC line is patent, intact, and running fluids at prescribed rate. Bed is at lowest position, brakes engaged, siderails x2, bed alarm on, and call light within reach. Pt is in stable condition at this time; will continue to monitor.
[2018-05-26 20:00] VITALS: BP 160/70
[2018-05-26] MEDS: Dyna-Hex 2% Top Sol 2oz TOPIC SCH (21:47)
--- NOTE | 2018-05-26 23:47 | Cardiology Progress Note ---
Assessment/Plan Assessment/Plan 1. Paroxysmal atrial fibrillation, due to CHADS-VASC score of 5, continue enoxaparin, increase metoprolol to 50mg bid. 2. Hx of CAD, s/p CABG, ASA , atorvastatin and metoprolol. No wall motion abnormalities on Echo. LVEF ~55%. 3. Sinus tachycardia, resolved, due to hypovolemia. 4. DKA, resolved. 5. DM, non-compliant with medications. 6. Hx of HTN, controlled with metoprolol. 7. Severe pulmonary HTN. Subjective Subjective Sinus rhythm at rate of 87. Objective Last 24 Hour Vital Signs Date Time Temp Pulse Resp B/P (MAP) Pulse Ox O2 Delivery O2 Flow Rate FiO2 05/26/18 21:45 87 160/70 05/26/18 20:00 2.0 05/26/18 20:00 98.6 87 18 160/70 (100) 99 05/26/18 20:00 87 05/26/18 16:00 83 05/26/18 16:00 98.5 83 22 157/76 (103) 98 05/26/18 16:00 2.0 05/26/18 12:00 2.0 05/26/18 12:00 97.9 79 24 126/82 (97) 98 05/26/18 12:00 78 05/26/18 09:01 83 158/100 05/26/18 09:00 Nasal Cannula 2.0 05/26/18 08:19 Nasal Cannula 2.0 28 05/26/18 08:18 99 Nasal Cannula 2.0 28 05/26/18 08:17 85 20 Nasal Cannula 2.0 28 05/26/18 08:00 2.0 05/26/18 08:00 98.9 83 23 158/100 (119) 99 05/26/18 08:00 86 05/26/18 04:00 97.9 84 20 155/79 (104) 99 05/26/18 04:00 80 05/26/18 04:00 2.0 05/26/18 00:00 99.0 87 20 160/74 (102) 97 05/26/18 00:00 92 Intake and Output 05/25/18 05/26/18 18:59 06:59 Intake Total 120 ml 60 ml Balance 120 ml 60 ml Intake Oral 120 ml 60 ml # Voids 2 2 2D Echo: EF55%,Mild LVH,Mod MR,Mild AR,RVSP 67 mmHg (severe PHT),Restrictive LV phy Laboratory Tests Test 05/26/18 05:14 White Blood Count 10.2 K/UL (4.8-10.8) Red Blood Count 3.17 M/UL (4.20-5.40) L Hemoglobin 8.6 G/DL (12.0-16.0) L Hematocrit 26.5 % (37.0-47.0) L Mean Corpuscular Volume 84 FL (80-99) Mean Corpuscular Hemoglobin 27.2 PG (27.0-31.0) Mean Corpuscular Hemoglobin Concent 32.4 G/DL (32.0-36.0) Red Cell Distribution Width 18.4 % (11.6-14.8) H Platelet Count 264 K/UL (150-450) Mean Platelet Volume 5.7 FL (6.5-10.1) L Neutrophils (%) (Auto) 64.6 % (45.0-75.0) Lymphocytes (%) (Auto) 16.9 % (20.0-45.0) L Monocytes (%) (Auto) 15.9 % (1.0-10.0) H Eosinophils (%) (Auto) 0.2 % (0.0-3.0) Basophils (%) (Auto) 2.4 % (0.0-2.0) H Sodium Level 139 MMOL/L (136-145) Potassium Level 4.4 MMOL/L (3.5-5.1) Chloride Level 108 MMOL/L (98-107) H Carbon Dioxide Level 18 MMOL/L (21-32) L Anion Gap 13 mmol/L (5-15) Blood Urea Nitrogen 21 mg/dL (7-18) H Creatinine 0.9 MG/DL (0.55-1.30) Estimat Glomerular Filtration Rate > 60 mL/min (>60) Glucose Level 139 MG/DL (74-106) H Calcium Level 8.1 MG/DL (8.5-10.1) L Lipase 409 U/L (73-393) H Objective HEENT: Normocephalic, atraumatic, Pupils equally reactive to light and accommodation, EOMI. NECK: No JVD, no carotid bruit. CARDIOVASCULAR: Regular rate and rhythm. No murmurs, gallops or rubs. LUNGS: Clear to auscultation bilaterally. No crackles or Rhonchi. ABDOMEN: Soft and nontender. No organomegaly, + BS. EXTREMITIES: No cyanosis, clubbing or edema. Miller Mckeon MD May 26, 2018 23:47
[2018-05-27] VITALS: BP 144/74
[2018-05-27 04:00] VITALS: BP 144/71
[2018-05-27] MEDS: NovoLOG Insulin Flexpen SUBQ SCH ×4 (05:52→21:02)
[2018-05-27] MEDS: Milk of Magnesia 30ml Ud ORAL PRN (05:57)
--- NOTE | 2018-05-27 07:14 | NUR ---
HAND-OFF: Report given to WAYNE Joseph. Pt is in stable condition; plan of care endorsed.
--- NOTE | 2018-05-27 07:15 | NUR ---
NURSE NOTES: Received bedside report from Manda BLACK. Pt. in bed, asleep but arousable. A/O x 4. No sign of distress. Denies pain at present. PICC line at left upper arm in placed patent/intact. Bed in low position, locked. Call light within reach. Will cont. to monitor.
[2018-05-27 08:00] VITALS: BP 158/74
[2018-05-27 08:34] LABS: BASOPHILS % (AUTO) 2.1 % (0.0-2.0); EOSINOPHILS % (AUTO) 0.2 % (0.0-3.0); HEMATOCRIT 25.7 % (37.0-47.0); HEMOGLOBIN 8.3 G/DL (12.0-16.0); LYMPHOCYTES % (AUTO) 18.9 % (20.0-45.0); MEAN CORPUSCULAR VOLUME 84 FL (80-99); MONOCYTES % (AUTO) 15.9 % (1.0-10.0); NEUTROPHILS % (AUTO) 62.8 % (45.0-75.0); PLATELET COUNT 316 K/UL (150-450); RED BLOOD COUNT 3.06 M/UL (4.20-5.40); RED CELL DISTRIBUTION WIDTH 18.8 % (11.6-14.8); WHITE BLOOD COUNT 9.9 K/UL (4.8-10.8)
[2018-05-27 08:37] LABS: ALANINE AMINOTRANSFERASE 124 U/L (12-78); ALBUMIN 1.9 G/DL (3.4-5.0); ALKALINE PHOSPHATASE 632 U/L (46-116); ASPARTATE AMINO TRANSFERASE 86 U/L (15-37); BILIRUBIN,DIRECT 0.6 MG/DL (0.0-0.3)
[2018-05-27] MEDS: Gentamicin 0.3% Opth Soln 5ml BOTH EYES SCH ×4 (09:05→20:59)
[2018-05-27] MEDS: Aspirin Baby 81mg ORAL SCH (09:05)
[2018-05-27] MEDS: Metoprolol 25mg tab ORAL SCH (09:05)
[2018-05-27] MEDS: Enoxaparin 80mg Inj SUBQ SCH ×2 (09:06→21:01)
[2018-05-27 09:45] LABS: ANION GAP 12 mmol/L (5-15); BLOOD UREA NITROGEN 15 mg/dL (7-18); CALCIUM 7.7 MG/DL (8.5-10.1); CARBON DIOXIDE 20 MMOL/L (21-32); CHLORIDE 108 MMOL/L (98-107); POTASSIUM 4.1 MMOL/L (3.5-5.1); SODIUM 140 MMOL/L (136-145)
[2018-05-27 09:55] LABS: PHOSPHORUS 2.5 MG/DL (2.5-4.9)
--- NOTE | 2018-05-27 11:08 | NUR ---
*-* DISCHARGE PLANNING *-* PATIENT HAS BEEN REFERRED TO: [facility] P:[phone] F:[phone] Addendum: 05/27/18 at 1504 by VERITO LIAO [facility] NOT CONTRACTED UNTIL
--- NOTE | 2018-05-27 11:19 | GI Progress Note ---
Assessment/Plan Problems: (1) Pancreatitis ICD Codes: K85.90 - Acute pancreatitis without necrosis or infection, unspecified SNOMED: 62830177 Qualifiers: Qualified Codes: K85.90 - Acute pancreatitis without necrosis or infection, unspecified (2) DKA (diabetic ketoacidosis) ICD Codes: E13.10 - Other specified diabetes mellitus with ketoacidosis without coma SNOMED: 819214097, 95809102 Qualifiers: Qualified Codes: E10.10 - Type 1 diabetes mellitus with ketoacidosis without coma (3) Diabetes ICD Codes: E11.9 - Type 2 diabetes mellitus without complications SNOMED: [id number] Status: stable, progressing Status Narrative Discussed with Dr. Benito. Assessment/Plan Status post EUS summary of findings 1. Pancreatitis, most probably acute, without any pancreatic duct dilatation or mass. 2. No evidence of any common bile duct dilatation was seen with common bile duct stone. 3. Gallbladder wall thickening, nonspecific. 4. 1 cm kristina hepatis lymph node, nonspecific. Elevated lipase levels, downtrending RECOMMENDATIONS: Advance to soft renal diet No need for ERCP Pain management Trend lipase Zofran as needed Follow-up labs dc planning The patient was seen and examined at bedside and all new and available data was reviewed in the patients chart. I agree with the above findings, impression and plan. (Patient seen earlier today. Signature stamp does not reflect patient encounter time.). - Neeraj Benito MD Subjective Subjective denies any abdominal pain Objective Last 24 Hour Vital Signs Date Time Temp Pulse Resp B/P (MAP) Pulse Ox O2 Delivery O2 Flow Rate FiO2 05/27/18 09:05 79 158/74 05/27/18 08:00 97.5 79 22 158/74 (102) 100 05/27/18 04:00 74 05/27/18 04:00 2.0 05/27/18 04:00 98.4 78 18 144/71 (95) 97 05/27/18 00:00 2.0 05/27/18 00:00 98.2 83 18 144/74 (97) 97 05/27/18 00:00 79 05/26/18 21:45 87 160/70 05/26/18 21:00 Nasal Cannula 2.0 05/26/18 20:00 2.0 05/26/18 20:00 98.6 87 18 160/70 (100) 99 05/26/18 20:00 87 05/26/18 16:00 83 05/26/18 16:00 98.5 83 22 157/76 (103) 98 05/26/18 16:00 2.0 05/26/18 12:00 2.0 05/26/18 12:00 97.9 79 24 126/82 (97) 98 05/26/18 12:00 78 Intake and Output 05/26/18 05/27/18 19:00 07:00 Output Total 2000 ml 400 ml Balance -2000 ml -400 ml Output Urine Total 2000 ml 400 ml Laboratory Tests Test 05/27/18 05:40 White Blood Count 9.9 K/UL (4.8-10.8) Red Blood Count 3.06 M/UL (4.20-5.40) L Hemoglobin 8.3 G/DL (12.0-16.0) L Hematocrit 25.7 % (37.0-47.0) L Mean Corpuscular Volume 84 FL (80-99) Mean Corpuscular Hemoglobin 27.0 PG (27.0-31.0) Mean Corpuscular Hemoglobin Concent 32.2 G/DL (32.0-36.0) Red Cell Distribution Width 18.8 % (11.6-14.8) H Platelet Count 316 K/UL (150-450) Mean Platelet Volume 5.6 FL (6.5-10.1) L Neutrophils (%) (Auto) 62.8 % (45.0-75.0) Lymphocytes (%) (Auto) 18.9 % (20.0-45.0) L Monocytes (%) (Auto) 15.9 % (1.0-10.0) H Eosinophils (%) (Auto) 0.2 % (0.0-3.0) Basophils (%) (Auto) 2.1 % (0.0-2.0) H Sodium Level 140 MMOL/L (136-145) Potassium Level 4.1 MMOL/L (3.5-5.1) Chloride Level 108 MMOL/L (98-107) H Carbon Dioxide Level 20 MMOL/L (21-32) L Anion Gap 12 mmol/L (5-15) Blood Urea Nitrogen 15 mg/dL (7-18) Creatinine 1.0 MG/DL (0.55-1.30) Estimat Glomerular Filtration Rate 54.8 mL/min (>60) Glucose Level 146 MG/DL (74-106) H Calcium Level 7.7 MG/DL (8.5-10.1) L Phosphorus Level 2.5 MG/DL (2.5-4.9) Magnesium Level 1.9 MG/DL (1.8-2.4) Total Bilirubin 1.0 MG/DL (0.2-1.0) Direct Bilirubin 0.6 MG/DL (0.0-0.3) H Aspartate Amino Transf (AST/SGOT) 86 U/L (15-37) H Alanine Aminotransferase (ALT/SGPT) 124 U/L (12-78) H Alkaline Phosphatase 632 U/L (46-116) H Total Protein 6.1 G/DL (6.4-8.2) L Albumin 1.9 G/DL (3.4-5.0) L Height (Feet): 4 Height (Inches): 10.00 Weight (Pounds): 173 General Appearance: WD/WN, no apparent distress, alert Cardiovascular: normal rate Respiratory/Chest: normal breath sounds, no respiratory distress Abdominal Exam: normal bowel sounds, non tender, soft Extremities: normal range of motion, non-tender Ros Berry NP May 27, 2018 11:19
[2018-05-27 12:00] VITALS: BP 153/72
--- NOTE | 2018-05-27 12:10 | NUR ---
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
--- NOTE | 2018-05-27 13:46 | Infectious Diseases Prog Note ---
Assessment/Plan Assessment/Plan A 1. pancreatitis, EUS negative 2. herpes of lip 3. diabetic ketoacidosis 4. increased LFT 5. fever 6. hypertension 7. Pancytopenia 10. Fungal UTI P 1. continue acyclovir 1 more day Subjective ROS Limited/Unobtainable: No Constitutional: Reports: no symptoms Respiratory: Reports: no symptoms Cardiovascular: Reports: no symptoms Gastrointestinal/Abdominal: Reports: no symptoms Genitourinary: Reports: no symptoms Allergies: Coded Allergies: SHELLFISH DERIVED (Verified Allergy, Unknown, swelling and itchiness, 05/14) Objective Vital Signs Last 24 Hour Vital Signs Date Time Temp Pulse Resp B/P (MAP) Pulse Ox O2 Delivery O2 Flow Rate FiO2 05/27/18 12:10 68 20 Nasal Cannula 2.0 28 05/27/18 12:10 Nasal Cannula 2.0 28 05/27/18 12:10 99 Nasal Cannula 2.0 28 05/27/18 12:00 2.0 05/27/18 09:05 79 158/74 05/27/18 09:00 Nasal Cannula 2.0 05/27/18 08:00 2.0 05/27/18 08:00 97.5 79 22 158/74 (102) 100 05/27/18 07:19 73 05/27/18 04:00 74 05/27/18 04:00 2.0 05/27/18 04:00 98.4 78 18 144/71 (95) 97 05/27/18 00:00 2.0 05/27/18 00:00 98.2 83 18 144/74 (97) 97 05/27/18 00:00 79 05/26/18 21:45 87 160/70 05/26/18 21:00 Nasal Cannula 2.0 05/26/18 20:00 2.0 05/26/18 20:00 98.6 87 18 160/70 (100) 99 05/26/18 20:00 87 05/26/18 16:00 83 05/26/18 16:00 98.5 83 22 157/76 (103) 98 05/26/18 16:00 2.0 Height (Feet): 4 Height (Inches): 10.00 Weight (Pounds): 173 General Appearance: no acute distress HEENT: mucous membranes moist Respiratory/Chest: lungs clear Cardiovascular: normal rate Abdomen: soft, non tender Extremities: no edema Skin: no rash Neurologic/Psychiatric: alert, oriented x 3, responsive Laboratory Tests Test 05/27/18 05:40 05/27/18 11:08 White Blood Count 9.9 K/UL (4.8-10.8) Red Blood Count 3.06 M/UL (4.20-5.40) L Hemoglobin 8.3 G/DL (12.0-16.0) L Hematocrit 25.7 % (37.0-47.0) L Mean Corpuscular Volume 84 FL (80-99) Mean Corpuscular Hemoglobin 27.0 PG (27.0-31.0) Mean Corpuscular Hemoglobin Concent 32.2 G/DL (32.0-36.0) Red Cell Distribution Width 18.8 % (11.6-14.8) H Platelet Count 316 K/UL (150-450) Mean Platelet Volume 5.6 FL (6.5-10.1) L Neutrophils (%) (Auto) 62.8 % (45.0-75.0) Lymphocytes (%) (Auto) 18.9 % (20.0-45.0) L Monocytes (%) (Auto) 15.9 % (1.0-10.0) H Eosinophils (%) (Auto) 0.2 % (0.0-3.0) Basophils (%) (Auto) 2.1 % (0.0-2.0) H Sodium Level 140 MMOL/L (136-145) Potassium Level 4.1 MMOL/L (3.5-5.1) Chloride Level 108 MMOL/L (98-107) H Carbon Dioxide Level 20 MMOL/L (21-32) L Anion Gap 12 mmol/L (5-15) Blood Urea Nitrogen 15 mg/dL (7-18) Creatinine 1.0 MG/DL (0.55-1.30) Estimat Glomerular Filtration Rate 54.8 mL/min (>60) Glucose Level 146 MG/DL (74-106) H Calcium Level 7.7 MG/DL (8.5-10.1) L Phosphorus Level 2.5 MG/DL (2.5-4.9) Magnesium Level 1.9 MG/DL (1.8-2.4) Total Bilirubin 1.0 MG/DL (0.2-1.0) Direct Bilirubin 0.6 MG/DL (0.0-0.3) H Aspartate Amino Transf (AST/SGOT) 86 U/L (15-37) H Alanine Aminotransferase (ALT/SGPT) 124 U/L (12-78) H Alkaline Phosphatase 632 U/L (46-116) H Total Protein 6.1 G/DL (6.4-8.2) L Albumin 1.9 G/DL (3.4-5.0) L Stool Occult Blood Negative (NEGATIVE) Current Medications Medications (Trade) Dose Ordered Sig/Ellen Route PRN Reason Start Time Stop Time Status Last Admin Dose Admin Acetaminophen (Tylenol) 650 mg Q4H PRN ORAL Mild Pain/Temp > 100.5 05/17/18 20:45 06/16/18 20:44 05/24/18 17:19 Acyclovir (Zovirax) 800 mg EVERY 8 HOURS ORAL 05/19/18 14:00 05/27/18 23:59 05/27/18 05:51 Al Hydroxide/Mg Hydroxide (Mylanta) 30 ml Q6H PRN ORAL Abdominal cramps 05/15/18 20:15 06/12/18 08:14 Amlodipine Besylate (Norvasc) 2.5 mg DAILY ORAL 05/27/18 13:15 06/26/18 13:14 Aspirin (ASA) 81 mg DAILY ORAL 05/25/18 09:00 06/24/18 08:59 05/27/18 09:05 Chlorhexidine Gluconate (Leora-Hex 2%) 1 applic DAILY@2000 TOPIC 05/25/18 20:00 06/24/18 19:59 05/26/18 21:47 Dextrose (Dextrose 50%) 25 ml Q30M PRN IV Hypoglycemia 05/15/18 19:15 06/13/18 10:14 Dextrose (Dextrose 50%) 50 ml Q30M PRN IV Hypoglycemia 05/15/18 19:15 06/13/18 10:14 Enoxaparin Sodium (Lovenox) 80 mg Q12HR SUBQ 05/26/18 21:00 06/25/18 20:59 05/27/18 09:06 Gentamicin Sulfate (Garamycin 0.3% Opt Soln) 1 drop QID BOTH EYES 05/25/18 22:00 06/01/18 21:59 05/27/18 09:05 Insulin Aspart (NovoLOG) BEFORE MEALS AND HS SUBQ 05/15/18 21:00 06/13/18 11:29 05/27/18 12:15 Magnesium Hydroxide (Mom) 30 ml DAILYPRN PRN ORAL Constipation 05/15/18 19:00 06/14/18 18:59 05/27/18 05:57 Metoprolol Tartrate (Lopressor) 5 mg Q2H PRN IVP For High Blood Pressure 05/24/18 17:00 06/23/18 16:59 Metoprolol Tartrate (Lopressor) 50 mg Q12HR ORAL 05/27/18 21:00 06/26/18 20:59 Pantoprazole (Protonix) 40 mg ACBREAKFAST ORAL 05/27/18 06:30 06/26/18 06:29 05/27/18 05:51 Mahesh Tejada MD May 27, 2018 13:46
--- NOTE | 2018-05-27 15:04 | NUR ---
*-* DISCHARGE PLANNING *-* PATIENT HAS BEEN REFERRED TO: JENNI P:[phone] F:[phone] & ORGER NÚÑEZ F:[phone] P:[phone]
[2018-05-27 16:00] VITALS: BP 148/75
--- NOTE | 2018-05-27 16:42 | General Progress Note ---
Assessment/Plan Assessment/Plan Assessment and Recs # Pancytopenia -- appears that initial hep and hiv are negative though final results to follow, liver shows no major hsm or cirrhosis, may consider meds or bone marrow process, smear reviewed --> this pancytopenia is acute in onset, over last several days, thus most likely abx infection related --> query meds, review with ID, is on micafungin now, monitor counts closely --> if no other cause and/or worsens, may consider flow cytometry or a bone marrow biopsy --> nepogen 300mcg sq to maintain anc >1500 --> wbc trend : 1.7-->4.3-->3.1-->3.4-->7.7-->8.1 # Anemia of chronic disease - monitor anemia panel --> hemolysis does not appear to be the case --> anemia panel reviewed --> hgb trend: 8.3-->9.2-->8.9-->8.7 # Paroxysmal atrial fibrillation, due to CHADS-VASC score of 5, we require to keep anticoagulated, on metoprolol --> continue on apixaban # Hx of CAD, s/p CABG, ASA , atorvastatin and metoprolol. No wall motion abnormalities on Echo. LVEF ~55%. --> appreciate cards recs # Sinus tachycardia due to hypovolemia, resolved. # DKA, resolved. --> continue monitor # DM, non-compliant with medications. # Hx of HTN, controlled with metoprolol. # pancreatitis # increased LFT The timing of this note does not necessarily reflect the time of the patient was seen. Greatly appreciate consultation! Subjective Constitutional: Denies: no symptoms, chills, diaphoresis, fever, malaise, weakness, other HEENT: Denies: no symptoms, eye pain, blurred vision, tearing, double vision, ear pain, ear discharge, nose pain, nose congestion, throat pain, throat swelling, mouth pain, mouth swelling, other Respiratory: Denies: no symptoms, cough, orthopnea, shortness of breath, SOB with excertion, SOB at rest, sputum, stridor, wheezing, other Gastrointestinal/Abdominal: Denies: no symptoms, abdomen distended, abdominal pain, black stools, tarry stools, blood in stool, constipated, diarrhea, difficulty swallowing, nausea, poor appetite, poor fluid intake, rectal bleeding , vomiting, other Genitourinary: Denies: no symptoms, burning, discharge, frequency, flank pain, hematuria, incontinence, pain, urgency, other Neurologic/Psychiatric: Denies: no symptoms, anxiety, depressed, emotional problems, headache, numbness, paresthesia, pre-existing deficit, seizure, tingling, tremors, weakness, other Endocrine: Denies: no symptoms, excessive sweating, flushing, intolerance to cold, intolerance to heat, increased hunger, increased thirst, increased urine, unexplained weight gain, unexplained weight loss, other Hematologic/Lymphatic: Denies: no symptoms, anemia, easy bleeding, easy bruising, other Allergies: Coded Allergies: SHELLFISH DERIVED (Verified Allergy, Unknown, swelling and itchiness, 05/14) Subjective 05/18: Pt is awake and comfortable, no events, leukopenia improved, wbc 4.3, plt 151 05/19: seen by bedside, awake, comfortable, plt 122 05/20: Pt is awake and comfortable, no events 2/: Pt is seen in the room, resting in bed, no fevers or chills, wbc 8.7, plt 117 2/: Pt is resting in bed, awake, comfortable, no fevers or chills, no acute distress. 2: EGD and EUS done today, has no gallbladder stones, only pancreatitis, no events 2: no events, dermatitis has improved, off loading of heels, pancreatitis and dka better 2: Pt is awake, comfortable, no acute events overnight, hgb 8.6 05/27: seen by bedside, awake, comfortable, no events Objective Last 24 Hour Vital Signs Date Time Temp Pulse Resp B/P (MAP) Pulse Ox O2 Delivery O2 Flow Rate FiO2 05/27/18 14:14 76 153/72 05/27/18 12:10 68 20 Nasal Cannula 2.0 28 05/27/18 12:10 Nasal Cannula 2.0 28 05/27/18 12:10 99 Nasal Cannula 2.0 28 05/27/18 12:00 2.0 05/27/18 12:00 97.9 76 23 153/72 (99) 100 05/27/18 09:05 79 158/74 05/27/18 09:00 Nasal Cannula 2.0 05/27/18 08:00 2.0 05/27/18 08:00 97.5 79 22 158/74 (102) 100 05/27/18 07:19 73 05/27/18 04:00 74 05/27/18 04:00 2.0 05/27/18 04:00 98.4 78 18 144/71 (95) 97 05/27/18 00:00 2.0 05/27/18 00:00 98.2 83 18 144/74 (97) 97 05/27/18 00:00 79 05/26/18 21:45 87 160/70 05/26/18 21:00 Nasal Cannula 2.0 05/26/18 20:00 2.0 05/26/18 20:00 98.6 87 18 160/70 (100) 99 05/26/18 20:00 87 Intake and Output 05/26/18 05/27/18 19:00 07:00 Output Total 2000 ml 400 ml Balance -2000 ml -400 ml Output Urine Total 2000 ml 400 ml Laboratory Tests 05/27/18 05:40: White Blood Count 9.9, Red Blood Count 3.06L, Hemoglobin 8.3L, Hematocrit 25.7L , Mean Corpuscular Volume 84, Mean Corpuscular Hemoglobin 27.0, Mean Corpuscular Hemoglobin Concent 32.2, Red Cell Distribution Width 18.8H, Platelet Count 316, Mean Platelet Volume 5.6L, Neutrophils (%) (Auto) 62.8, Lymphocytes (%) (Auto) 18.9L, Monocytes (%) (Auto) 15.9H, Eosinophils (%) (Auto ) 0.2, Basophils (%) (Auto) 2.1H, Sodium Level 140, Potassium Level 4.1, Chloride Level 108H, Carbon Dioxide Level 20L, Anion Gap 12, Blood Urea Nitrogen 15, Creatinine 1.0, Estimat Glomerular Filtration Rate 54.8, Glucose Level 146H, Calcium Level 7.7L, Phosphorus Level 2.5, Magnesium Level 1.9, Total Bilirubin 1.0, Direct Bilirubin 0.6H, Aspartate Amino Transf (AST/SGOT) 86H, Alanine Aminotransferase (ALT/SGPT) 124H, Alkaline Phosphatase 632H, Total Protein 6.1L, Albumin 1.9L 05/27/18 11:08: Stool Occult Blood Negative Height (Feet): 4 Height (Inches): 10.00 Weight (Pounds): 173 Objective PHYSICAL EXAMINATION: GENERAL: Pleasant [place] woman seen in the ICU. HEENT: Normocephalic and atraumatic. Sclerae anicteric. Oropharynx clear. NECK: Supple. CHEST: Clear to auscultation. CARDIOVASCULAR: Revealed regular rate. ABDOMEN: Soft. Good bowel sounds. There is no organomegaly or tenderness. Anterior chest and abdomen scars were as expected. EXTREMITIES: Revealed no edema. Armando Bowen MD May 27, 2018 16:42
--- NOTE | 2018-05-27 17:05 | General Progress Note ---
Assessment/Plan Assessment/Plan Impression Diabetic ketoacidosis Anemia Transaminitis of unclear etiology Severe protein calorie malnutrition Evidence of pancreatitis, better Acute renal failure, improved Hyperglycemia Diabetes Hyponatremia Metabolic acidosis Hypercholesterolemia fever oral ulcers afib with RVR leukopenia pancreatitis dc planning awaiting snf placement impression, plan, and exam edited and reviewed in detail care discussed with RN Subjective Allergies: Coded Allergies: SHELLFISH DERIVED (Verified Allergy, Unknown, swelling and itchiness, 05/14) Subjective diet advanced comfortable Objective Last 24 Hour Vital Signs Date Time Temp Pulse Resp B/P (MAP) Pulse Ox O2 Delivery O2 Flow Rate FiO2 05/27/18 14:14 76 153/72 05/27/18 12:10 68 20 Nasal Cannula 2.0 28 05/27/18 12:10 Nasal Cannula 2.0 28 05/27/18 12:10 99 Nasal Cannula 2.0 28 05/27/18 12:00 2.0 05/27/18 12:00 97.9 76 23 153/72 (99) 100 05/27/18 09:05 79 158/74 05/27/18 09:00 Nasal Cannula 2.0 05/27/18 08:00 2.0 05/27/18 08:00 97.5 79 22 158/74 (102) 100 05/27/18 07:19 73 05/27/18 04:00 74 05/27/18 04:00 2.0 05/27/18 04:00 98.4 78 18 144/71 (95) 97 05/27/18 00:00 2.0 05/27/18 00:00 98.2 83 18 144/74 (97) 97 05/27/18 00:00 79 05/26/18 21:45 87 160/70 05/26/18 21:00 Nasal Cannula 2.0 05/26/18 20:00 2.0 05/26/18 20:00 98.6 87 18 160/70 (100) 99 05/26/18 20:00 87 Intake and Output 05/26/18 05/27/18 19:00 07:00 Output Total 2000 ml 400 ml Balance -2000 ml -400 ml Output Urine Total 2000 ml 400 ml Laboratory Tests 05/27/18 05:40: White Blood Count 9.9, Red Blood Count 3.06L, Hemoglobin 8.3L, Hematocrit 25.7L , Mean Corpuscular Volume 84, Mean Corpuscular Hemoglobin 27.0, Mean Corpuscular Hemoglobin Concent 32.2, Red Cell Distribution Width 18.8H, Platelet Count 316, Mean Platelet Volume 5.6L, Neutrophils (%) (Auto) 62.8, Lymphocytes (%) (Auto) 18.9L, Monocytes (%) (Auto) 15.9H, Eosinophils (%) (Auto ) 0.2, Basophils (%) (Auto) 2.1H, Sodium Level 140, Potassium Level 4.1, Chloride Level 108H, Carbon Dioxide Level 20L, Anion Gap 12, Blood Urea Nitrogen 15, Creatinine 1.0, Estimat Glomerular Filtration Rate 54.8, Glucose Level 146H, Calcium Level 7.7L, Phosphorus Level 2.5, Magnesium Level 1.9, Total Bilirubin 1.0, Direct Bilirubin 0.6H, Aspartate Amino Transf (AST/SGOT) 86H, Alanine Aminotransferase (ALT/SGPT) 124H, Alkaline Phosphatase 632H, Total Protein 6.1L, Albumin 1.9L 05/27/18 11:08: Stool Occult Blood Negative Height (Feet): 4 Height (Inches): 10.00 Weight (Pounds): 173 Objective WDWN NAD clear breath sounds bilaterally without rhonchi or wheeze S1S2 RRR without MRG NABS nontender no HSM no CCE nonfocal oral ulcers nearly resolved alert Jesus Lew MD May 27, 2018 17:05
--- NOTE | 2018-05-27 19:10 | NUR ---
NURSE NOTES: Received pt. and report from WAYNE Joseph. Observe pt. resting in bed and watching TV. engine monitor is in placed, OMAR PICC line is intact, asymptomatic, and patent. Bed is in the lowest position and locked, call light within reach. No acute distress noted at this time. Will continue plan of care.
--- NOTE | 2018-05-27 19:20 | NUR ---
HAND-OFF: Report given to Indira RN. Pt. remain stable.
[2018-05-27 20:00] VITALS: BP 155/66
[2018-05-27] MEDS: Dyna-Hex 2% Top Sol 2oz TOPIC SCH (20:59)
[2018-05-27] MEDS: Metoprolol Tartrate 50mg tab ORAL SCH (21:00)
--- NOTE | 2018-05-27 23:10 | Cardiology Progress Note ---
Assessment/Plan Assessment/Plan 1. Paroxysmal atrial fibrillation, due to CHADS-VASC score of 5, continue enoxaparin and metoprolol.. 2. Hx of CAD, s/p CABG, ASA , atorvastatin and metoprolol. No wall motion abnormalities on Echo. LVEF ~55%. 3. Sinus tachycardia, resolved, due to hypovolemia. 4. DKA, resolved. 5. DM, non-compliant with medications. 6. HTN, stage II, increase amlodipine, continue metoprolol. 7. Severe pulmonary HTN. Subjective Subjective Sinus rhythm at rate of 98. Objective Last 24 Hour Vital Signs Date Time Temp Pulse Resp B/P (MAP) Pulse Ox O2 Delivery O2 Flow Rate FiO2 05/27/18 21:00 Nasal Cannula 2.0 05/27/18 21:00 98 155/66 05/27/18 20:00 2.0 05/27/18 20:00 98.0 77 18 155/66 (95) 98 05/27/18 20:00 75 05/27/18 16:00 2.0 05/27/18 16:00 97.9 74 23 148/75 (99) 100 05/27/18 16:00 73 05/27/18 15:42 73 05/27/18 14:14 76 153/72 05/27/18 12:10 68 20 Nasal Cannula 2.0 28 05/27/18 12:10 Nasal Cannula 2.0 28 05/27/18 12:10 99 Nasal Cannula 2.0 28 05/27/18 12:00 2.0 05/27/18 12:00 97.9 76 23 153/72 (99) 100 05/27/18 09:05 79 158/74 05/27/18 09:00 Nasal Cannula 2.0 05/27/18 08:00 2.0 05/27/18 08:00 97.5 79 22 158/74 (102) 100 05/27/18 07:19 73 05/27/18 04:00 74 05/27/18 04:00 2.0 05/27/18 04:00 98.4 78 18 144/71 (95) 97 05/27/18 00:00 2.0 05/27/18 00:00 98.2 83 18 144/74 (97) 97 05/27/18 00:00 79 Intake and Output 05/26/18 05/27/18 19:00 07:00 Output Total 2000 ml 400 ml Balance -2000 ml -400 ml Output Urine Total 2000 ml 400 ml 2D Echo: EF55%,Mild LVH,Mod MR,Mild AR,RVSP 67 mmHg (severe PHT),Restrictive LV phy Laboratory Tests Test 05/27/18 05:40 05/27/18 11:08 White Blood Count 9.9 K/UL (4.8-10.8) Red Blood Count 3.06 M/UL (4.20-5.40) L Hemoglobin 8.3 G/DL (12.0-16.0) L Hematocrit 25.7 % (37.0-47.0) L Mean Corpuscular Volume 84 FL (80-99) Mean Corpuscular Hemoglobin 27.0 PG (27.0-31.0) Mean Corpuscular Hemoglobin Concent 32.2 G/DL (32.0-36.0) Red Cell Distribution Width 18.8 % (11.6-14.8) H Platelet Count 316 K/UL (150-450) Mean Platelet Volume 5.6 FL (6.5-10.1) L Neutrophils (%) (Auto) 62.8 % (45.0-75.0) Lymphocytes (%) (Auto) 18.9 % (20.0-45.0) L Monocytes (%) (Auto) 15.9 % (1.0-10.0) H Eosinophils (%) (Auto) 0.2 % (0.0-3.0) Basophils (%) (Auto) 2.1 % (0.0-2.0) H Sodium Level 140 MMOL/L (136-145) Potassium Level 4.1 MMOL/L (3.5-5.1) Chloride Level 108 MMOL/L (98-107) H Carbon Dioxide Level 20 MMOL/L (21-32) L Anion Gap 12 mmol/L (5-15) Blood Urea Nitrogen 15 mg/dL (7-18) Creatinine 1.0 MG/DL (0.55-1.30) Estimat Glomerular Filtration Rate 54.8 mL/min (>60) Glucose Level 146 MG/DL (74-106) H Calcium Level 7.7 MG/DL (8.5-10.1) L Phosphorus Level 2.5 MG/DL (2.5-4.9) Magnesium Level 1.9 MG/DL (1.8-2.4) Total Bilirubin 1.0 MG/DL (0.2-1.0) Direct Bilirubin 0.6 MG/DL (0.0-0.3) H Aspartate Amino Transf (AST/SGOT) 86 U/L (15-37) H Alanine Aminotransferase (ALT/SGPT) 124 U/L (12-78) H Alkaline Phosphatase 632 U/L (46-116) H Total Protein 6.1 G/DL (6.4-8.2) L Albumin 1.9 G/DL (3.4-5.0) L Stool Occult Blood Negative (NEGATIVE) Objective HEENT: Normocephalic, atraumatic, Pupils equally reactive to light and accommodation, EOMI. NECK: No JVD, no carotid bruit. CARDIOVASCULAR: Regular rate and rhythm. No murmurs, gallops or rubs. LUNGS: Clear to auscultation bilaterally. No crackles or Rhonchi. ABDOMEN: Soft and nontender. No organomegaly, + BS. EXTREMITIES: No cyanosis, clubbing or edema. Miller Mckeon MD May 27, 2018 23:10
[2018-05-28] VITALS: BP 178/79
[2018-05-28 04:00] VITALS: BP 126/90
[2018-05-28] MEDS: NovoLOG Insulin Flexpen SUBQ SCH ×4 (06:11→20:53)
[2018-05-28 06:19] LABS: BASOPHILS % (AUTO) 3.7 % (0.0-2.0); EOSINOPHILS % (AUTO) 0.1 % (0.0-3.0); HEMATOCRIT 26.8 % (37.0-47.0); HEMOGLOBIN 8.6 G/DL (12.0-16.0); LYMPHOCYTES % (AUTO) 14.8 % (20.0-45.0); MEAN CORPUSCULAR VOLUME 84 FL (80-99); MONOCYTES % (AUTO) 14.9 % (1.0-10.0); NEUTROPHILS % (AUTO) 66.5 % (45.0-75.0); PLATELET COUNT 379 K/UL (150-450); RED BLOOD COUNT 3.18 M/UL (4.20-5.40); WHITE BLOOD COUNT 9.7 K/UL (4.8-10.8)
[2018-05-28 06:41] LABS: ANION GAP 10 mmol/L (5-15); BLOOD UREA NITROGEN 12 mg/dL (7-18); CARBON DIOXIDE 22 MMOL/L (21-32); CHLORIDE 108 MMOL/L (98-107); SODIUM 140 MMOL/L (136-145)
--- NOTE | 2018-05-28 07:42 | NUR ---
HAND-OFF: Report given to WAYNE Gregory.
[2018-05-28 08:00] VITALS: BP 145/67
--- NOTE | 2018-05-28 08:15 | NUR ---
NURSE NOTES: Received pt. and report from WAYNE Jacobson. Observe pt. eating breakfast in bed. peanut shaker is in placed, OMAR PICC line is intact, asymptomatic, and patent. Bed is in the lowest position and locked, x2 side rails up, and call light within reach. No acute distress noted at this time. Will continue plan of care.
[2018-05-28] MEDS: Aspirin Baby 81mg ORAL SCH (09:40)
[2018-05-28] MEDS: Metoprolol Tartrate 50mg tab ORAL SCH ×2 (09:40→20:51)
[2018-05-28] MEDS: Gentamicin 0.3% Opth Soln 5ml BOTH EYES SCH ×4 (09:40→20:50)
[2018-05-28] MEDS: Enoxaparin 80mg Inj SUBQ SCH ×2 (09:47→20:52)
[2018-05-28 12:00] VITALS: BP 150/65
--- NOTE | 2018-05-28 12:31 | GI Progress Note ---
Assessment/Plan Problems: (1) Pancreatitis ICD Codes: K85.90 - Acute pancreatitis without necrosis or infection, unspecified SNOMED: 79361229 Qualifiers: Qualified Codes: K85.90 - Acute pancreatitis without necrosis or infection, unspecified (2) DKA (diabetic ketoacidosis) ICD Codes: E13.10 - Other specified diabetes mellitus with ketoacidosis without coma SNOMED: 782381541, [id number] Qualifiers: Qualified Codes: E10.10 - Type 1 diabetes mellitus with ketoacidosis without coma (3) Diabetes ICD Codes: E11.9 - Type 2 diabetes mellitus without complications SNOMED: 62346477 Status: stable Status Narrative Discussed with Dr. Benito Assessment/Plan Status post EUS summary of findings 1. Pancreatitis, most probably acute, without any pancreatic duct dilatation or mass. 2. No evidence of any common bile duct dilatation was seen with common bile duct stone. 3. Gallbladder wall thickening, nonspecific. 4. 1 cm kristina hepatis lymph node, nonspecific. Elevated lipase levels, downtrending RECOMMENDATIONS: Advance to soft renal diet No need for ERCP Pain management Trend lipase Zofran as needed Follow-up labs dc planning The patient was seen and examined at bedside and all new and available data was reviewed in the patients chart. I agree with the above findings, impression and plan. (Patient seen earlier today. Signature stamp does not reflect patient encounter time.). - Neeraj Benito MD Subjective Subjective denies any abdominal pain Tolerating diet Objective Last 24 Hour Vital Signs Date Time Temp Pulse Resp B/P (MAP) Pulse Ox O2 Delivery O2 Flow Rate FiO2 05/28/18 12:00 2.0 05/28/18 12:00 98.1 66 20 150/65 (93) 98 05/28/18 11:38 97.7 05/28/18 09:40 98 145/67 05/28/18 09:40 98 145/67 05/28/18 09:00 Nasal Cannula 2.0 05/28/18 08:37 2.0 05/28/18 08:09 98 05/28/18 08:00 97.7 82 20 145/67 (93) 98 05/28/18 08:00 99 Nasal Cannula 2.0 28 05/28/18 08:00 78 20 Nasal Cannula 2.0 28 05/28/18 08:00 Nasal Cannula 2.0 28 05/28/18 04:00 97.9 76 18 126/90 (102) 98 05/28/18 04:00 72 05/28/18 04:00 2.0 05/28/18 00:10 Nasal Cannula 2.0 28 05/28/18 00:10 71 20 Nasal Cannula 2.0 28 05/28/18 00:10 98 Nasal Cannula 2.0 28 05/28/18 00:00 69 05/28/18 00:00 97.9 71 18 178/79 (112) 98 05/28/18 00:00 2.0 05/27/18 23:55 71 178/79 05/27/18 21:00 Nasal Cannula 2.0 05/27/18 21:00 98 155/66 05/27/18 20:00 2.0 05/27/18 20:00 98.0 77 18 155/66 (95) 98 05/27/18 20:00 75 05/27/18 16:00 2.0 05/27/18 16:00 97.9 74 23 148/75 (99) 100 05/27/18 16:00 73 05/27/18 15:42 73 05/27/18 14:14 76 153/72 Intake and Output 05/27/18 05/28/18 19:00 07:00 # Voids 1 3 Laboratory Tests Test 05/28/18 05:35 White Blood Count 9.7 K/UL (4.8-10.8) Red Blood Count 3.18 M/UL (4.20-5.40) L Hemoglobin 8.6 G/DL (12.0-16.0) L Hematocrit 26.8 % (37.0-47.0) L Mean Corpuscular Volume 84 FL (80-99) Mean Corpuscular Hemoglobin 27.0 PG (27.0-31.0) Mean Corpuscular Hemoglobin Concent 32.0 G/DL (32.0-36.0) Red Cell Distribution Width 19.0 % (11.6-14.8) H Platelet Count 379 K/UL (150-450) Mean Platelet Volume 5.5 FL (6.5-10.1) L Neutrophils (%) (Auto) 66.5 % (45.0-75.0) Lymphocytes (%) (Auto) 14.8 % (20.0-45.0) L Monocytes (%) (Auto) 14.9 % (1.0-10.0) H Eosinophils (%) (Auto) 0.1 % (0.0-3.0) Basophils (%) (Auto) 3.7 % (0.0-2.0) H Sodium Level 140 MMOL/L (136-145) Potassium Level 4.0 MMOL/L (3.5-5.1) Chloride Level 108 MMOL/L (98-107) H Carbon Dioxide Level 22 MMOL/L (21-32) Anion Gap 10 mmol/L (5-15) Blood Urea Nitrogen 12 mg/dL (7-18) Creatinine 1.0 MG/DL (0.55-1.30) Estimat Glomerular Filtration Rate 54.8 mL/min (>60) Glucose Level 166 MG/DL (74-106) H Calcium Level 8.0 MG/DL (8.5-10.1) L Lipase 602 U/L (73-393) H Height (Feet): 4 Height (Inches): 10.00 Weight (Pounds): 174 General Appearance: WD/WN, no apparent distress, alert Cardiovascular: normal rate Respiratory/Chest: normal breath sounds, no respiratory distress Abdominal Exam: normal bowel sounds, non tender, soft Extremities: normal range of motion, non-tender Ros Berry NP May 28, 2018 12:31
--- NOTE | 2018-05-28 14:00 | General Progress Note ---
Assessment/Plan Assessment/Plan Impression Diabetic ketoacidosis Anemia Transaminitis of unclear etiology Severe protein calorie malnutrition Evidence of pancreatitis, better Acute renal failure, improved Hyperglycemia Diabetes Hyponatremia Metabolic acidosis Hypercholesterolemia fever oral ulcers afib with RVR leukopenia pancreatitis dc planning awaiting snf placement monitor for change care noted impression, plan, and exam edited and reviewed in detail care discussed with RN Subjective Allergies: Coded Allergies: SHELLFISH DERIVED (Verified Allergy, Unknown, swelling and itchiness, 05/14) Subjective tolerating diet weak comfortable Objective Last 24 Hour Vital Signs Date Time Temp Pulse Resp B/P (MAP) Pulse Ox O2 Delivery O2 Flow Rate FiO2 05/28/18 12:00 2.0 05/28/18 12:00 98.1 66 20 150/65 (93) 98 05/28/18 11:53 68 05/28/18 11:38 97.7 05/28/18 09:40 98 145/67 05/28/18 09:40 98 145/67 05/28/18 09:00 Nasal Cannula 2.0 05/28/18 08:37 2.0 05/28/18 08:09 98 05/28/18 08:00 97.7 82 20 145/67 (93) 98 05/28/18 08:00 99 Nasal Cannula 2.0 28 05/28/18 08:00 78 20 Nasal Cannula 2.0 28 05/28/18 08:00 Nasal Cannula 2.0 28 05/28/18 04:00 97.9 76 18 126/90 (102) 98 05/28/18 04:00 72 05/28/18 04:00 2.0 05/28/18 00:10 Nasal Cannula 2.0 28 05/28/18 00:10 71 20 Nasal Cannula 2.0 28 05/28/18 00:10 98 Nasal Cannula 2.0 28 05/28/18 00:00 69 05/28/18 00:00 97.9 71 18 178/79 (112) 98 05/28/18 00:00 2.0 05/27/18 23:55 71 178/79 05/27/18 21:00 Nasal Cannula 2.0 05/27/18 21:00 98 155/66 05/27/18 20:00 2.0 05/27/18 20:00 98.0 77 18 155/66 (95) 98 05/27/18 20:00 75 05/27/18 16:00 2.0 05/27/18 16:00 97.9 74 23 148/75 (99) 100 05/27/18 16:00 73 05/27/18 15:42 73 05/27/18 14:14 76 153/72 Intake and Output 05/27/18 05/28/18 19:00 07:00 # Voids 1 3 Laboratory Tests 05/28/18 05:35: White Blood Count 9.7, Red Blood Count 3.18L, Hemoglobin 8.6L, Hematocrit 26.8L , Mean Corpuscular Volume 84, Mean Corpuscular Hemoglobin 27.0, Mean Corpuscular Hemoglobin Concent 32.0, Red Cell Distribution Width 19.0H, Platelet Count 379, Mean Platelet Volume 5.5L, Neutrophils (%) (Auto) 66.5, Lymphocytes (%) (Auto) 14.8L, Monocytes (%) (Auto) 14.9H, Eosinophils (%) (Auto ) 0.1, Basophils (%) (Auto) 3.7H, Sodium Level 140, Potassium Level 4.0, Chloride Level 108H, Carbon Dioxide Level 22, Anion Gap 10, Blood Urea Nitrogen 12, Creatinine 1.0, Estimat Glomerular Filtration Rate 54.8, Glucose Level 166H , Calcium Level 8.0L, Lipase 602H Height (Feet): 4 Height (Inches): 10.00 Weight (Pounds): 174 Objective WDWN NAD clear breath sounds bilaterally without rhonchi or wheeze S1S2 RRR without MRG NABS nontender no HSM no CCE nonfocal oral ulcers nearly resolved alert Jesus Lew MD May 28, 2018 14:00
--- NOTE | 2018-05-28 14:23 | NUR ---
Social Service Note Message left for patient's sister Yoly Worrell [phone] to discuss impending dc plan to contacted facility [address] . Awaiting call back. Facility is pending auth from insurance. Dr. Lew updated.
--- NOTE | 2018-05-28 14:49 | General Progress Note ---
Assessment/Plan Assessment/Plan Assessment and Recs # Pancytopenia -- appears that initial hep and hiv are negative though final results to follow, liver shows no major hsm or cirrhosis, may consider meds or bone marrow process, smear reviewed --> this pancytopenia is acute in onset, over last several days, thus most likely abx infection related --> query meds, review with ID, is on micafungin now, monitor counts closely --> if no other cause and/or worsens, may consider flow cytometry or a bone marrow biopsy --> nepogen 300mcg sq to maintain anc >1500 --> wbc trend : 1.7-->4.3-->3.1-->3.4-->7.7-->8.1 # Anemia of chronic disease - monitor anemia panel --> hemolysis does not appear to be the case --> anemia panel reviewed --> hgb trend: 8.3-->9.2-->8.9-->8.7 # Paroxysmal atrial fibrillation, due to CHADS-VASC score of 5, we require to keep anticoagulated, on metoprolol --> continue on apixaban # Hx of CAD, s/p CABG, ASA , atorvastatin and metoprolol. No wall motion abnormalities on Echo. LVEF ~55%. --> appreciate cards recs # Sinus tachycardia due to hypovolemia, resolved. # DKA, resolved. --> continue monitor # DM, non-compliant with medications. # Hx of HTN, controlled with metoprolol. # pancreatitis # increased LFT The timing of this note does not necessarily reflect the time of the patient was seen. Greatly appreciate consultation! Subjective HEENT: Denies: no symptoms, eye pain, blurred vision, tearing, double vision, ear pain, ear discharge, nose pain, nose congestion, throat pain, throat swelling, mouth pain, mouth swelling, other Cardiovascular: Denies: no symptoms, chest pain, edema, irregular heart rate, lightheadedness, palpitations, syncope, other Respiratory: Denies: no symptoms, cough, orthopnea, shortness of breath, SOB with excertion, SOB at rest, sputum, stridor, wheezing, other Gastrointestinal/Abdominal: Denies: no symptoms, abdomen distended, abdominal pain, black stools, tarry stools, blood in stool, constipated, diarrhea, difficulty swallowing, nausea, poor appetite, poor fluid intake, rectal bleeding , vomiting, other Genitourinary: Denies: no symptoms, burning, discharge, frequency, flank pain, hematuria, incontinence, pain, urgency, other Neurologic/Psychiatric: Denies: no symptoms, anxiety, depressed, emotional problems, headache, numbness, paresthesia, pre-existing deficit, seizure, tingling, tremors, weakness, other Endocrine: Denies: no symptoms, excessive sweating, flushing, intolerance to cold, intolerance to heat, increased hunger, increased thirst, increased urine, unexplained weight gain, unexplained weight loss, other Hematologic/Lymphatic: Denies: no symptoms, anemia, easy bleeding, easy bruising, other Allergies: Coded Allergies: SHELLFISH DERIVED (Verified Allergy, Unknown, swelling and itchiness, 05/14) Subjective 05/18: Pt is awake and comfortable, no events, leukopenia improved, wbc 4.3, plt 151 05/19: seen by bedside, awake, comfortable, plt 122 05/20: Pt is awake and comfortable, no events 2/: Pt is seen in the room, resting in bed, no fevers or chills, wbc 8.7, plt 117 2: Pt is resting in bed, awake, comfortable, no fevers or chills, no acute distress. 2: EGD and EUS done today, has no gallbladder stones, only pancreatitis, no events 2: no events, dermatitis has improved, off loading of heels, pancreatitis and dka better 2: Pt is awake, comfortable, no acute events overnight, hgb 8.6 2: seen by bedside, awake, comfortable, no events 05/28: resting in bed, awake, comfortable, no fevers or chills, no acute distress , No need for ERCP per GI, Objective Last 24 Hour Vital Signs Date Time Temp Pulse Resp B/P (MAP) Pulse Ox O2 Delivery O2 Flow Rate FiO2 05/28/18 12:00 2.0 05/28/18 12:00 98.1 66 20 150/65 (93) 98 05/28/18 11:53 68 05/28/18 11:38 97.7 05/28/18 09:40 98 145/67 05/28/18 09:40 98 145/67 05/28/18 09:00 Nasal Cannula 2.0 05/28/18 08:37 2.0 05/28/18 08:09 98 05/28/18 08:00 97.7 82 20 145/67 (93) 98 05/28/18 08:00 99 Nasal Cannula 2.0 28 05/28/18 08:00 78 20 Nasal Cannula 2.0 28 05/28/18 08:00 Nasal Cannula 2.0 28 05/28/18 04:00 97.9 76 18 126/90 (102) 98 05/28/18 04:00 72 05/28/18 04:00 2.0 05/28/18 00:10 Nasal Cannula 2.0 28 05/28/18 00:10 71 20 Nasal Cannula 2.0 28 05/28/18 00:10 98 Nasal Cannula 2.0 28 05/28/18 00:00 69 05/28/18 00:00 97.9 71 18 178/79 (112) 98 05/28/18 00:00 2.0 05/27/18 23:55 71 178/79 05/27/18 21:00 Nasal Cannula 2.0 05/27/18 21:00 98 155/66 05/27/18 20:00 2.0 05/27/18 20:00 98.0 77 18 155/66 (95) 98 05/27/18 20:00 75 05/27/18 16:00 2.0 05/27/18 16:00 97.9 74 23 148/75 (99) 100 05/27/18 16:00 73 05/27/18 15:42 73 Intake and Output 05/27/18 05/28/18 19:00 07:00 # Voids 1 3 Laboratory Tests 05/28/18 05:35: White Blood Count 9.7, Red Blood Count 3.18L, Hemoglobin 8.6L, Hematocrit 26.8L , Mean Corpuscular Volume 84, Mean Corpuscular Hemoglobin 27.0, Mean Corpuscular Hemoglobin Concent 32.0, Red Cell Distribution Width 19.0H, Platelet Count 379, Mean Platelet Volume 5.5L, Neutrophils (%) (Auto) 66.5, Lymphocytes (%) (Auto) 14.8L, Monocytes (%) (Auto) 14.9H, Eosinophils (%) (Auto ) 0.1, Basophils (%) (Auto) 3.7H, Sodium Level 140, Potassium Level 4.0, Chloride Level 108H, Carbon Dioxide Level 22, Anion Gap 10, Blood Urea Nitrogen 12, Creatinine 1.0, Estimat Glomerular Filtration Rate 54.8, Glucose Level 166H , Calcium Level 8.0L, Lipase 602H Height (Feet): 4 Height (Inches): 10.00 Weight (Pounds): 174 Objective PHYSICAL EXAMINATION: GENERAL: Pleasant [place] woman seen in the ICU. HEENT: Normocephalic and atraumatic. Sclerae anicteric. Oropharynx clear. NECK: Supple. CHEST: Clear to auscultation. CARDIOVASCULAR: Revealed regular rate. ABDOMEN: Soft. Good bowel sounds. There is no organomegaly or tenderness. Anterior chest and abdomen scars were as expected. EXTREMITIES: Revealed no edema. Armando Bowen MD May 28, 2018 14:49
[2018-05-28 16:00] VITALS: BP 140/72
--- NOTE | 2018-05-28 18:30 | NUR ---
1930: Spoke to Dr. Landry who is covering Dr. Lugo. Patient started to have slight expiatory wheezing on 2L NC that started at 18:30. Recieved orders. Will be endorsed to awake overnight monitor nurse.
--- NOTE | 2018-05-28 19:58 | NUR ---
HAND-OFF: Report given to WAYNE Herron.
--- NOTE | 2018-05-28 19:59 | NUR ---
NURSE NOTES: Got report from Colt BLACK. Pt in stable condition.Denies any pain.No s/s of distress or discomfort noted. Pt resting in bed comfortably. Bed in low and locked position, call light within reach, bedside table within reach.Continue to monitor.
[2018-05-28 20:00] VITALS: BP 151/72
[2018-05-28] MEDS: Dyna-Hex 2% Top Sol 2oz TOPIC SCH (20:00)
[2018-05-28] MEDS: Albuterol/Ipratropium 3ml neb HHN PRN (20:11)
--- NOTE | 2018-05-28 21:45 | Cardiology Progress Note ---
Assessment/Plan Assessment/Plan 1. Paroxysmal atrial fibrillation, due to CHADS-VASC score of 5, continue enoxaparin and metoprolol.. 2. Hx of CAD, s/p CABG, ASA , atorvastatin and metoprolol. No wall motion abnormalities on Echo. LVEF ~55%. 3. Sinus tachycardia, resolved, due to hypovolemia. 4. DKA, resolved. 5. DM, non-compliant with medications. 6. HTN, stage II, increase amlodipine, continue metoprolol. 7. Severe pulmonary HTN. Subjective Subjective Sinus rhythm at rate of 78. On NC oxygen. Objective Last 24 Hour Vital Signs Date Time Temp Pulse Resp B/P (MAP) Pulse Ox O2 Delivery O2 Flow Rate FiO2 05/28/18 20:51 78 151/72 05/28/18 20:21 92 22 99 Nasal Cannula 3.0 32 05/28/18 20:15 89 26 Nasal Cannula 3.0 32 05/28/18 20:14 97 Nasal Cannula 3.0 32 05/28/18 20:14 Nasal Cannula 3.0 32 05/28/18 20:13 89 26 97 Nasal Cannula 3.0 32 05/28/18 17:55 69 140/72 05/28/18 16:00 69 05/28/18 16:00 1.0 05/28/18 16:00 97.3 69 20 140/72 (94) 99 05/28/18 12:00 2.0 05/28/18 12:00 98.1 66 20 150/65 (93) 98 05/28/18 11:53 68 05/28/18 11:38 97.7 05/28/18 09:40 98 145/67 05/28/18 09:40 98 145/67 05/28/18 09:00 Nasal Cannula 2.0 05/28/18 08:37 2.0 05/28/18 08:09 98 05/28/18 08:00 97.7 82 20 145/67 (93) 98 05/28/18 08:00 99 Nasal Cannula 2.0 28 05/28/18 08:00 78 20 Nasal Cannula 2.0 28 05/28/18 08:00 Nasal Cannula 2.0 28 05/28/18 04:00 97.9 76 18 126/90 (102) 98 05/28/18 04:00 72 05/28/18 04:00 2.0 05/28/18 00:10 Nasal Cannula 2.0 28 05/28/18 00:10 71 20 Nasal Cannula 2.0 28 05/28/18 00:10 98 Nasal Cannula 2.0 28 05/28/18 00:00 69 05/28/18 00:00 97.9 71 18 178/79 (112) 98 05/28/18 00:00 2.0 05/27/18 23:55 71 178/79 Intake and Output 05/27/18 05/28/18 19:00 07:00 # Voids 1 3 Laboratory Tests Test 05/28/18 05:35 White Blood Count 9.7 K/UL (4.8-10.8) Red Blood Count 3.18 M/UL (4.20-5.40) L Hemoglobin 8.6 G/DL (12.0-16.0) L Hematocrit 26.8 % (37.0-47.0) L Mean Corpuscular Volume 84 FL (80-99) Mean Corpuscular Hemoglobin 27.0 PG (27.0-31.0) Mean Corpuscular Hemoglobin Concent 32.0 G/DL (32.0-36.0) Red Cell Distribution Width 19.0 % (11.6-14.8) H Platelet Count 379 K/UL (150-450) Mean Platelet Volume 5.5 FL (6.5-10.1) L Neutrophils (%) (Auto) 66.5 % (45.0-75.0) Lymphocytes (%) (Auto) 14.8 % (20.0-45.0) L Monocytes (%) (Auto) 14.9 % (1.0-10.0) H Eosinophils (%) (Auto) 0.1 % (0.0-3.0) Basophils (%) (Auto) 3.7 % (0.0-2.0) H Sodium Level 140 MMOL/L (136-145) Potassium Level 4.0 MMOL/L (3.5-5.1) Chloride Level 108 MMOL/L (98-107) H Carbon Dioxide Level 22 MMOL/L (21-32) Anion Gap 10 mmol/L (5-15) Blood Urea Nitrogen 12 mg/dL (7-18) Creatinine 1.0 MG/DL (0.55-1.30) Estimat Glomerular Filtration Rate 54.8 mL/min (>60) Glucose Level 166 MG/DL (74-106) H Calcium Level 8.0 MG/DL (8.5-10.1) L Lipase 602 U/L (73-393) H Objective HEENT: Normocephalic, atraumatic, Pupils equally reactive to light and accommodation, EOMI. NECK: No JVD, no carotid bruit. CARDIOVASCULAR: Regular rate and rhythm. No murmurs, gallops or rubs. LUNGS: Clear to auscultation bilaterally. No crackles or Rhonchi. ABDOMEN: Soft and nontender. No organomegaly, + BS. EXTREMITIES: No cyanosis, clubbing or edema. Miller Mckeon MD May 28, 2018 21:45
[2018-05-28] MEDS: LORazepam 1mg tab ORAL PRN (23:49)
[2018-05-29] VITALS: BP 171/71
[2018-05-29] MEDS: Albuterol/Ipratropium 3ml neb HHN PRN (00:48)
[2018-05-29] MEDS: LORazepam 1mg tab ORAL PRN (02:30)
[2018-05-29 04:30] VITALS: BP 153/88
--- NOTE | 2018-05-29 05:30 | NUR ---
NURSE NOTES: Pt keeps taking off oxygen/bipap and she desats when she takes it off. She sats fine at 96-97% when oxygen/bipap is on but desats below 90% when off. Called Dr. Landry. called back and said to put pt on Bilateral soft wrist restraints. Bilateral wrist restraints on. Continue to monitor.
[2018-05-29] MEDS: NovoLOG Insulin Flexpen SUBQ SCH ×4 (06:09→21:55)
--- NOTE | 2018-05-29 07:15 | NUR ---
HAND-OFF: Report given to Colt BLACK. endorsed plan of care.
--- NOTE | 2018-05-29 07:16 | NUR ---
NURSE NOTES: Got report from Jonathan BLACK. Pt is sleeping in bed resting. Bed in lowest and locked position, siderails x2 up, call light within reach, bedside table within reach. Patient is on bipap with bilateral soft wrist restraints. Pulses are palpable b/l in wrists and hands are warm to touch. Will continue to monitor.
[2018-05-29 07:54] VITALS: BP 146/63
--- NOTE | 2018-05-29 08:01 | Pulmonology Progress Note ---
Assessment/Plan Assessment/Plan Pulmonary Progress Note Assessment/Plan Impression Diabetic ketoacidosis Anemia Transaminitis of unclear etiology Severe protein calorie malnutrition Evidence of pancreatitis, better Acute renal failure, improved Hyperglycemia Diabetes Hyponatremia Metabolic acidosis Hypercholesterolemia fever oral ulcers afib with RVR leukopenia pancreatitis dc planning awaiting snf placement monitor for change care noted impression, plan, and exam edited and reviewed in detail care discussed with RN Subjective Allergies: Coded Allergies: SHELLFISH DERIVED (Verified Allergy, Unknown, swelling and itchiness, 05/14) Subjective tolerating diet weak comfortable Objective Vital Signs Noted Laboratory Tests 05/28/18 05:35: White Blood Count 9.7, Red Blood Count 3.18L, Hemoglobin 8.6L, Hematocrit 26.8L , Mean Corpuscular Volume 84, Mean Corpuscular Hemoglobin 27.0, Mean Corpuscular Hemoglobin Concent 32.0, Red Cell Distribution Width 19.0H, Platelet Count 379, Mean Platelet Volume 5.5L, Neutrophils (%) (Auto) 66.5, Lymphocytes (%) (Auto) 14.8L, Monocytes (%) (Auto) 14.9H, Eosinophils (%) (Auto ) 0.1, Basophils (%) (Auto) 3.7H, Sodium Level 140, Potassium Level 4.0, Chloride Level 108H, Carbon Dioxide Level 22, Anion Gap 10, Blood Urea Nitrogen 12, Creatinine 1.0, Estimat Glomerular Filtration Rate 54.8, Glucose Level 166H , Calcium Level 8.0L, Lipase 602H Height (Feet): 4 Height (Inches): 10.00 Weight (Pounds): 174 Objective WDWN NAD clear breath sounds bilaterally without rhonchi or wheeze S1S2 RRR without MRG NABS nontender no HSM no CCE nonfocal oral ulcers nearly resolved alert Subjective ROS Limited/Unobtainable: No Allergies: Coded Allergies: SHELLFISH DERIVED (Verified Allergy, Unknown, swelling and itchiness, 05/14) Objective Last 24 Hour Vital Signs Date Time Temp Pulse Resp B/P (MAP) Pulse Ox O2 Delivery O2 Flow Rate FiO2 05/29/18 07:54 98.5 82 20 146/63 (90) 96 05/29/18 05:02 100 36 97 Facial 40 05/29/18 04:49 117 05/29/18 04:30 98.0 76 20 153/88 (109) 95 05/29/18 04:25 2.0 05/29/18 03:30 104 32 95 Facial 40 05/29/18 02:45 98.2 05/29/18 01:00 91 22 98 Nasal Cannula 3.0 32 05/29/18 00:48 88 24 98 Nasal Cannula 3.0 32 05/29/18 00:38 72 171/71 05/29/18 00:00 80 05/29/18 00:00 98.2 72 20 171/71 (104) 99 05/28/18 21:00 Nasal Cannula 2.0 05/28/18 20:51 78 151/72 05/28/18 20:21 92 22 99 Nasal Cannula 3.0 32 05/28/18 20:15 89 26 Nasal Cannula 3.0 32 05/28/18 20:14 97 Nasal Cannula 3.0 32 05/28/18 20:14 Nasal Cannula 3.0 32 05/28/18 20:13 89 26 97 Nasal Cannula 3.0 32 05/28/18 20:00 98.4 78 20 151/72 (98) 99 05/28/18 20:00 72 05/28/18 20:00 2.0 05/28/18 17:55 69 140/72 05/28/18 16:00 69 05/28/18 16:00 1.0 05/28/18 16:00 97.3 69 20 140/72 (94) 99 05/28/18 12:00 2.0 05/28/18 12:00 98.1 66 20 150/65 (93) 98 05/28/18 11:53 68 05/28/18 09:40 98 145/67 05/28/18 09:40 98 145/67 05/28/18 09:00 Nasal Cannula 2.0 05/28/18 08:37 2.0 05/28/18 08:09 98 Intake and Output 05/28/18 05/29/18 18:59 06:59 Intake Total 600 ml Output Total 700 ml 600 ml Balance -100 ml -600 ml Intake Oral 600 ml Output Urine Total 700 ml 600 ml # Voids 3 1 Current Medications Medications (Trade) Dose Ordered Sig/Ellen Route PRN Reason Start Time Stop Time Status Last Admin Dose Admin Acetaminophen (Tylenol) 650 mg Q4H PRN ORAL Mild Pain/Temp > 100.5 1/28/19 20:45 06/16/18 20:44 05/29/18 02:12 Al Hydroxide/Mg Hydroxide (Mylanta) 30 ml Q6H PRN ORAL Abdominal cramps 05/15/18 20:15 06/12/18 08:14 Albuterol/ Ipratropium (Albuterol/ Ipratropium) 3 ml Q4H PRN HHN Shortness of Breath 05/28/18 20:00 06/02/18 19:59 05/29/18 00:48 Amlodipine Besylate (Norvasc) 5 mg BID ORAL 05/29/18 09:00 06/28/18 08:59 Aspirin (ASA) 81 mg DAILY ORAL 05/25/18 09:00 06/24/18 08:59 05/28/18 09:40 Chlorhexidine Gluconate (Leora-Hex 2%) 1 applic DAILY@2000 TOPIC 05/25/18 20:00 06/24/18 19:59 05/28/18 20:00 Dextrose (Dextrose 50%) 25 ml Q30M PRN IV Hypoglycemia 05/15/18 19:15 06/13/18 10:14 Dextrose (Dextrose 50%) 50 ml Q30M PRN IV Hypoglycemia 05/15/18 19:15 06/13/18 10:14 Enoxaparin Sodium (Lovenox) 80 mg Q12HR SUBQ 05/26/18 21:00 06/25/18 20:59 05/28/18 20:52 Gentamicin Sulfate (Garamycin 0.3% Opt Soln) 1 drop QID BOTH EYES 05/25/18 22:00 06/01/18 21:59 05/28/18 20:50 Insulin Aspart (NovoLOG) BEFORE MEALS AND HS SUBQ 05/15/18 21:00 06/13/18 11:29 05/29/18 06:09 Lorazepam (Ativan) 1 mg Q3H PRN ORAL For Anxiety 05/28/18 20:30 06/04/18 20:29 05/29/18 02:30 Magnesium Hydroxide (Mom) 30 ml DAILYPRN PRN ORAL Constipation 05/15/18 19:00 06/14/18 18:59 05/27/18 05:57 Metoprolol Tartrate (Lopressor) 5 mg Q2H PRN IVP For High Blood Pressure 05/24/18 17:00 06/23/18 16:59 05/29/18 00:38 Metoprolol Tartrate (Lopressor) 50 mg Q12HR ORAL 05/27/18 21:00 06/26/18 20:59 05/28/18 20:51 Pantoprazole (Protonix) 40 mg ACBREAKFAST ORAL 05/27/18 06:30 06/26/18 06:29 05/28/18 06:09 Gulshan Landry MD May 29, 2018 08:01
[2018-05-29] MEDS: Gentamicin 0.3% Opth Soln 5ml BOTH EYES SCH ×4 (09:00→21:45)
[2018-05-29] MEDS: Metoprolol Tartrate 50mg tab ORAL SCH ×2 (09:00→21:45)
[2018-05-29] MEDS: Aspirin Baby 81mg ORAL SCH (09:00)
[2018-05-29] MEDS: Enoxaparin 80mg Inj SUBQ SCH ×2 (09:00→21:47)
[2018-05-29 09:45] LABS: HEMATOCRIT 25.8 % (37.0-47.0); HEMOGLOBIN 8.3 G/DL (12.0-16.0); MEAN CORPUSCULAR VOLUME 85 FL (80-99); PLATELET COUNT 392 K/UL (150-450); RED BLOOD COUNT 3.05 M/UL (4.20-5.40); RED CELL DISTRIBUTION WIDTH 18.6 % (11.6-14.8); WHITE BLOOD COUNT 14.2 K/UL (4.8-10.8)
[2018-05-29 10:00] LABS: ALANINE AMINOTRANSFERASE 100 U/L (12-78); ALBUMIN/GLOBULIN RATIO 0.4 (1.0-2.7); ALKALINE PHOSPHATASE 568 U/L (46-116); ANION GAP 13 mmol/L (5-15); ASPARTATE AMINO TRANSFERASE 109 U/L (15-37); BILIRUBIN,TOTAL 0.9 MG/DL (0.2-1.0); BLOOD UREA NITROGEN 19 mg/dL (7-18); CALCIUM 8.4 MG/DL (8.5-10.1); CARBON DIOXIDE 18 MMOL/L (21-32); CHLORIDE 106 MMOL/L (98-107); CREATININE 1.1 MG/DL (0.55-1.30); POTASSIUM 4.7 MMOL/L (3.5-5.1); SODIUM 137 MMOL/L (136-145)
--- NOTE | 2018-05-29 10:33 | Infectious Diseases Prog Note ---
Assessment/Plan Assessment/Plan antibiotics : none A 1. pancreatitis improving 2. herpes of lip s/p rx 3. diabetic ketoacidosis 4. respiratory failure 5. hypertension 6. ? pneumonia P 1. start zosyn 2. urine cultures 3. sputum culture 4. will follow up cultures Subjective ROS Limited/Unobtainable: Yes Allergies: Coded Allergies: SHELLFISH DERIVED (Verified Allergy, Unknown, swelling and itchiness, 05/14) Objective Vital Signs Last 24 Hour Vital Signs Date Time Temp Pulse Resp B/P (MAP) Pulse Ox O2 Delivery O2 Flow Rate FiO2 05/29/18 09:30 87 25 98 Facial 40 05/29/18 09:21 2.0 05/29/18 09:00 Nasal Cannula 2.0 05/29/18 08:23 87 26 Bi-pap 40 05/29/18 08:23 Bi-pap 40 05/29/18 08:23 99 Bi-pap 40 05/29/18 07:54 98.5 82 20 146/63 (90) 96 05/29/18 07:49 86 05/29/18 06:35 84 26 99 Facial 40 05/29/18 05:02 100 36 97 Facial 40 05/29/18 04:49 117 05/29/18 04:30 98.0 76 20 153/88 (109) 95 05/29/18 04:25 2.0 05/29/18 03:30 104 32 95 Facial 40 05/29/18 02:45 98.2 05/29/18 01:00 91 22 98 Nasal Cannula 3.0 32 05/29/18 00:48 88 24 98 Nasal Cannula 3.0 32 05/29/18 00:38 72 171/71 05/29/18 00:00 80 05/29/18 00:00 98.2 72 20 171/71 (104) 99 05/28/18 21:00 Nasal Cannula 2.0 05/28/18 20:51 78 151/72 05/28/18 20:21 92 22 99 Nasal Cannula 3.0 32 05/28/18 20:15 89 26 Nasal Cannula 3.0 32 05/28/18 20:14 97 Nasal Cannula 3.0 32 05/28/18 20:14 Nasal Cannula 3.0 32 05/28/18 20:13 89 26 97 Nasal Cannula 3.0 32 05/28/18 20:00 98.4 78 20 151/72 (98) 99 05/28/18 20:00 72 05/28/18 20:00 2.0 05/28/18 17:55 69 140/72 05/28/18 16:00 69 05/28/18 16:00 1.0 05/28/18 16:00 97.3 69 20 140/72 (94) 99 05/28/18 12:00 2.0 05/28/18 12:00 98.1 66 20 150/65 (93) 98 05/28/18 11:53 68 Height (Feet): 4 Height (Inches): 10.00 Weight (Pounds): 167 HEENT: other - on bipap Respiratory/Chest: lungs clear Cardiovascular: normal rate, regular rhythm, no gallop/murmur Abdomen: soft, non tender Extremities: other - + edema, left arm PICC Laboratory Tests Test 05/29/18 09:30 White Blood Count 14.2 K/UL (4.8-10.8) H Red Blood Count 3.05 M/UL (4.20-5.40) L Hemoglobin 8.3 G/DL (12.0-16.0) L Hematocrit 25.8 % (37.0-47.0) L Mean Corpuscular Volume 85 FL (80-99) Mean Corpuscular Hemoglobin 27.0 PG (27.0-31.0) Mean Corpuscular Hemoglobin Concent 32.0 G/DL (32.0-36.0) Red Cell Distribution Width 18.6 % (11.6-14.8) H Platelet Count 392 K/UL (150-450) Mean Platelet Volume 5.8 FL (6.5-10.1) L Neutrophils (%) (Auto) % (45.0-75.0) Lymphocytes (%) (Auto) % (20.0-45.0) Monocytes (%) (Auto) % (1.0-10.0) Eosinophils (%) (Auto) % (0.0-3.0) Basophils (%) (Auto) % (0.0-2.0) Neutrophils % (Manual) Pending Lymphocytes % (Manual) Pending Platelet Estimate Pending Platelet Morphology Pending Sodium Level 137 MMOL/L (136-145) Potassium Level 4.7 MMOL/L (3.5-5.1) Chloride Level 106 MMOL/L (98-107) Carbon Dioxide Level 18 MMOL/L (21-32) L Anion Gap 13 mmol/L (5-15) Blood Urea Nitrogen 19 mg/dL (7-18) H Creatinine 1.1 MG/DL (0.55-1.30) Estimat Glomerular Filtration Rate 49.1 mL/min (>60) Glucose Level 247 MG/DL (74-106) H Calcium Level 8.4 MG/DL (8.5-10.1) L Total Bilirubin 0.9 MG/DL (0.2-1.0) Aspartate Amino Transf (AST/SGOT) 109 U/L (15-37) H Alanine Aminotransferase (ALT/SGPT) 100 U/L (12-78) H Alkaline Phosphatase 568 U/L (46-116) H Total Protein 6.7 G/DL (6.4-8.2) Albumin 2.0 G/DL (3.4-5.0) L Globulin 4.7 g/dL Albumin/Globulin Ratio 0.4 (1.0-2.7) L Current Medications Medications (Trade) Dose Ordered Sig/Ellen Route PRN Reason Start Time Stop Time Status Last Admin Dose Admin Acetaminophen (Tylenol) 650 mg Q4H PRN ORAL Mild Pain/Temp > 100.5 05/17/18 20:45 06/16/18 20:44 05/29/18 02:12 Al Hydroxide/Mg Hydroxide (Mylanta) 30 ml Q6H PRN ORAL Abdominal cramps 05/15/18 20:15 06/12/18 08:14 Albuterol/ Ipratropium (Albuterol/ Ipratropium) 3 ml Q4H PRN HHN Shortness of Breath 05/28/18 20:00 06/02/18 19:59 05/29/18 00:48 Amlodipine Besylate (Norvasc) 5 mg BID ORAL 05/29/18 09:00 06/28/18 08:59 Aspirin (ASA) 81 mg DAILY ORAL 05/25/18 09:00 06/24/18 08:59 05/28/18 09:40 Chlorhexidine Gluconate (Leora-Hex 2%) 1 applic DAILY@1999 TOPIC 05/25/18 20:00 06/24/18 19:59 05/28/18 20:00 Dextrose (Dextrose 50%) 25 ml Q30M PRN IV Hypoglycemia 05/15/18 19:15 06/13/18 10:14 Dextrose (Dextrose 50%) 50 ml Q30M PRN IV Hypoglycemia 05/15/18 19:15 06/13/18 10:14 Enoxaparin Sodium (Lovenox) 80 mg Q12HR SUBQ 05/26/18 21:00 06/25/18 20:59 05/28/18 20:52 [facility]in S[facility]ate [facility] drop QID BOTH EYES 05/25/18 22:00 06/01/18 21:59 05/28/18 20:50 Insulin Aspart (NovoLOG) BEFORE MEALS AND HS SUBQ 05/15/18 21:00 06/13/18 11:29 05/29/18 06:09 Lorazepam (Ativan) 1 mg Q3H PRN ORAL For Anxiety 05/28/18 20:30 06/04/18 20:29 05/29/18 02:30 Magnesium Hydroxide (Mom) 30 ml DAILYPRN PRN ORAL Constipation 05/15/18 19:00 06/14/18 18:59 05/27/18 05:57 Metoprolol Tartrate (Lopressor) 5 mg Q2H PRN IVP For High Blood Pressure 05/24/18 17:00 06/23/18 16:59 05/29/18 00:38 Metoprolol Tartrate (Lopressor) 50 mg Q12HR ORAL 05/27/18 21:00 06/26/18 20:59 05/28/18 20:51 Pantoprazole (Protonix) 40 mg ACBREAKFAST ORAL 05/27/18 06:30 06/26/18 06:29 05/28/18 06:09 Khadra Melendez MD May 29, 2018 10:33
[2018-05-29] MEDS: Piperacillin/Tazobactam 3.375 GM in NS 110 ML IV SCH ×2 (11:00→22:00)
--- NOTE | 2018-05-29 11:00 | NUR ---
NURSE NOTES: Spoke to Dr. Landry of the first abg results PO2 is 32.1. Bipap setting order is entered. Spoke to respiratory therapist.
[2018-05-29 12:00] VITALS: BP 147/79
--- NOTE | 2018-05-29 13:50 | NUR ---
PT Note Attempted to see patient for tx x2. Patient was sleeping in AM; per nursing, patient was unable to sleep last night. In PM, patient had ABG done and with abnormal results. Will hold off today; check again in AM.
[2018-05-29 16:00] VITALS: BP 138/67
--- NOTE | 2018-05-29 16:13 | Diagnostic Imaging Report ---
EXAM: XR Chest, 1 View CLINICAL HISTORY: Shortness of air TECHNIQUE: Frontal view of the chest. COMPARISON: 05/13/2018 FINDINGS: Lungs: Nonspecific opacity in the right lower lung. Mild atelectasis or scar in the left midlung. Pleural space: Unremarkable. No pneumothorax. Heart: Stable cardiac mediastinal silhouette. Mediastinum: Stable postoperative mediastinum. Bones/joints: No acute osseous abnormality. Tubes, lines and devices: Telemetry leads overlie the patient. IMPRESSION: Nonspecific opacity in the right lower lung may be infectious or inflammatory.
--- NOTE | 2018-05-29 16:16 | GI Progress Note ---
Assessment/Plan Problems: (1) Pancreatitis ICD Codes: K85.90 - Acute pancreatitis without necrosis or infection, unspecified SNOMED: 19278987 Qualifiers: Qualified Codes: K85.90 - Acute pancreatitis without necrosis or infection, unspecified (2) DKA (diabetic ketoacidosis) ICD Codes: E13.10 - Other specified diabetes mellitus with ketoacidosis without coma SNOMED: 107621161, [id number] Qualifiers: Qualified Codes: E10.10 - Type 1 diabetes mellitus with ketoacidosis without coma (3) Diabetes ICD Codes: E11.9 - Type 2 diabetes mellitus without complications SNOMED: 52249027 Status: unchanged Status Narrative Discussed with Dr. Benito. Assessment/Plan Status post EUS summary of findings 1. Pancreatitis, most probably acute, without any pancreatic duct dilatation or mass. 2. No evidence of any common bile duct dilatation was seen with common bile duct stone. 3. Gallbladder wall thickening, nonspecific. 4. 1 cm kristina hepatis lymph node, nonspecific. Elevated lipase levels, downtrending new onset SOB, CXR ordered. RECOMMENDATIONS: Advance to soft renal diet No need for ERCP Pain management Trend lipase Zofran as needed Follow-up labs fu cxr The patient was seen and examined at bedside and all new and available data was reviewed in the patients chart. I agree with the above findings, impression and plan. (Patient seen earlier today. Signature stamp does not reflect patient encounter time.). - Neeraj Benito MD Subjective Subjective denies any abdominal pain Tolerating diet new onset SOB Objective Last 24 Hour Vital Signs Date Time Temp Pulse Resp B/P (MAP) Pulse Ox O2 Delivery O2 Flow Rate FiO2 05/29/18 12:00 2.0 40 05/29/18 12:00 98.4 82 22 147/79 (101) 96 05/29/18 10:30 81 23 98 Facial 40 05/29/18 09:30 87 25 98 Facial 40 05/29/18 09:21 2.0 05/29/18 09:00 Nasal Cannula 2.0 05/29/18 08:23 87 26 Bi-pap 40 05/29/18 08:23 Bi-pap 40 05/29/18 08:23 99 Bi-pap 40 05/29/18 07:54 98.5 82 20 146/63 (90) 96 05/29/18 07:49 86 05/29/18 06:35 84 26 99 Facial 40 05/29/18 05:02 100 36 97 Facial 40 05/29/18 04:49 117 05/29/18 04:30 98.0 76 20 153/88 (109) 95 05/29/18 04:25 2.0 05/29/18 03:30 104 32 95 Facial 40 05/29/18 02:45 98.2 05/29/18 01:00 91 22 98 Nasal Cannula 3.0 32 05/29/18 00:48 88 24 98 Nasal Cannula 3.0 32 05/29/18 00:38 72 171/71 05/29/18 00:00 80 05/29/18 00:00 98.2 72 20 171/71 (104) 99 05/28/18 21:00 Nasal Cannula 2.0 05/28/18 20:51 78 151/72 05/28/18 20:21 92 22 99 Nasal Cannula 3.0 32 05/28/18 20:15 89 26 Nasal Cannula 3.0 32 05/28/18 20:14 97 Nasal Cannula 3.0 32 05/28/18 20:14 Nasal Cannula 3.0 32 05/28/18 20:13 89 26 97 Nasal Cannula 3.0 32 05/28/18 20:00 98.4 78 20 151/72 (98) 99 05/28/18 20:00 72 05/28/18 20:00 2.0 05/28/18 17:55 69 140/72 Intake and Output 05/28/18 05/29/18 19:00 07:00 Intake Total 600 ml Output Total 700 ml 600 ml Balance -100 ml -600 ml Intake Oral 600 ml Output Urine Total 700 ml 600 ml # Voids 3 1 Laboratory Tests Test 05/29/18 09:30 05/29/18 10:04 05/29/18 14:00 White Blood Count 14.2 K/UL (4.8-10.8) H Red Blood Count 3.05 M/UL (4.20-5.40) L Hemoglobin 8.3 G/DL (12.0-16.0) L Hematocrit 25.8 % (37.0-47.0) L Mean Corpuscular Volume 85 FL (80-99) Mean Corpuscular Hemoglobin 27.0 PG (27.0-31.0) Mean Corpuscular Hemoglobin Concent 32.0 G/DL (32.0-36.0) Red Cell Distribution Width 18.6 % (11.6-14.8) H Platelet Count 392 K/UL (150-450) Mean Platelet Volume 5.8 FL (6.5-10.1) L Neutrophils (%) (Auto) % (45.0-75.0) Lymphocytes (%) (Auto) % (20.0-45.0) Monocytes (%) (Auto) % (1.0-10.0) Eosinophils (%) (Auto) % (0.0-3.0) Basophils (%) (Auto) % (0.0-2.0) Differential Total Cells Counted 100 Neutrophils % (Manual) 88 % (45-75) H Lymphocytes % (Manual) 6 % (20-45) L Monocytes % (Manual) 3 % (1-10) Eosinophils % (Manual) 0 % (0-3) Basophils % (Manual) 0 % (0-2) Metamyelocytes % 1 % (0-0) H Myelocytes % 2 % (0-0) H Band Neutrophils 0 % (0-8) Platelet Estimate Adequate Platelet Morphology Normal Anisocytosis 2+ Sodium Level 137 MMOL/L (136-145) Potassium Level 4.7 MMOL/L (3.5-5.1) Chloride Level 106 MMOL/L (98-107) Carbon Dioxide Level 18 MMOL/L (21-32) L Anion Gap 13 mmol/L (5-15) Blood Urea Nitrogen 19 mg/dL (7-18) H Creatinine 1.1 MG/DL (0.55-1.30) Estimat Glomerular Filtration Rate 49.1 mL/min (>60) Glucose Level 247 MG/DL (74-106) H Calcium Level 8.4 MG/DL (8.5-10.1) L Total Bilirubin 0.9 MG/DL (0.2-1.0) Aspartate Amino Transf (AST/SGOT) 109 U/L (15-37) H Alanine Aminotransferase (ALT/SGPT) 100 U/L (12-78) H Alkaline Phosphatase 568 U/L (46-116) H Total Protein 6.7 G/DL (6.4-8.2) Albumin 2.0 G/DL (3.4-5.0) L Globulin 4.7 g/dL Albumin/Globulin Ratio 0.4 (1.0-2.7) L Arterial Blood pH 7.320 (7.350-7.450) 7.411 (7.350-7.450) Arterial Blood Partial Pressure CO2 37.3 mmHg (35.0-45.0) 30.0 mmHg (35.0-45.0) L Arterial Blood Partial Pressure O2 32.1 mmHg (75.0-100.0) 123.1 mmHg (75.0-100.0) H Arterial Blood HCO3 19.0 mmol/L (22.0-26.0) L 18.6 mmol/L (22.0-26.0) L Arterial Blood Oxygen Saturation 50.9 % (95-100) *L 98.1 % (95-100) Arterial Blood Base Excess -6.4 (-2-2) L -5.2 (-2-2) L Marlon Test Positive Positive Height (Feet): 4 Height (Inches): 10.00 Weight (Pounds): 167 General Appearance: WD/WN, no apparent distress, alert Cardiovascular: normal rate Respiratory/Chest: normal breath sounds, no respiratory distress Abdominal Exam: normal bowel sounds, non tender, soft Extremities: normal range of motion, non-tender Ros Berry NP May 29, 2018 16:16
--- NOTE | 2018-05-29 18:17 | Diagnostic Imaging Report ---
EXAM: US Duplex Left Upper Extremity Veins CLINICAL HISTORY: SWELL TECHNIQUE: Real-time duplex ultrasound scan of the left upper extremity veins integrating B-mode two-dimensional vascular structure, Doppler spectral analysis, color flow Doppler imaging and compression. COMPARISON: No relevant prior studies available. FINDINGS: Deep veins: Unremarkable. No DVT in the internal jugular, subclavian, axillary, or brachial veins. The veins demonstrate normal color flow, are normally compressible, with normal phasic flow and/or augmentation response. Superficial veins: Unremarkable as visualized. Soft tissues: No acute findings. IMPRESSION: Normal left upper extremity duplex venous ultrasound.
--- NOTE | 2018-05-29 19:40 | NUR ---
NURSE NOTES: Received report from WAYNE Gregory. Patient in bed on 4L O2 Via NC. Per WAYNE Gregory no episodes of attempting to remove NC at this time, will be on BiPAP as ordered, RT at bedside. Respiration even and unlabored. Daughter at bedside. No signs of pain or acute distress noted. No IV access at this time. Swelling noted to Left Upper arm, per RN, PICC line unintentionally removed by install and repair technician while attempting to do ultrasound. Will follow up w/ Dr. Landry. Charge nurse Josafat aware. Per Josafat will attempt to insert IV as patient has IV abx order. Bed in lowest position, alarms on, call light within easy reach. Will continue to monitor.
[2018-05-29 20:00] VITALS: BP 146/67
[2018-05-29] MEDS: Dyna-Hex 2% Top Sol 2oz TOPIC SCH (20:00)
--- NOTE | 2018-05-29 20:20 | NUR ---
NURSE NOTES: Leora-Hex 2% topical not administered, no PICC line at this time
--- NOTE | 2018-05-29 20:21 | NUR ---
NURSE NOTES: 18:00: After Vascular study, found PICC line dressing removed. Notified charge nurse. Picc line was removed. 20:15: Spoke to Dr. Landry about PICC line removed and vascular study result. Notified doctors about missed antibiotic because of loss of access. Received order.
--- NOTE | 2018-05-29 20:23 | NUR ---
HAND-OFF: Report given to WAYNE Jang. patient sleeping in bed with bipap with daughter at bedside.
[2018-05-29] MEDS ORDERED: Heparin 2000 units/Ns 1000ml INJ PRN (20:30)
[2018-05-29] MEDS ORDERED: Lidocaine 1% Plain 30 ml INJ PRN (20:30)
--- NOTE | 2018-05-29 23:02 | Cardiology Progress Note ---
Assessment/Plan Assessment/Plan 1. Paroxysmal atrial fibrillation, in SR now, due to CHADS-VASC score of 5, continue enoxaparin and metoprolol.. 2. Hx of CAD, s/p CABG, ASA , atorvastatin and metoprolol. No wall motion abnormalities on Echo. LVEF ~55%. 3. Sinus tachycardia, resolved, due to hypovolemia. 4. DKA, resolved. 5. DM, non-compliant with medications. 6. HTN, stage II, increase amlodipine, continue metoprolol. 7. Severe pulmonary HTN. Subjective Subjective Sinus rhythm at rate of 79. On NC oxygen. Objective Last 24 Hour Vital Signs Date Time Temp Pulse Resp B/P (MAP) Pulse Ox O2 Delivery O2 Flow Rate FiO2 05/29/18 22:22 79 24 100 Facial 30 05/29/18 21:45 72 146/67 05/29/18 20:11 78 23 99 Facial 30 05/29/18 20:09 Bi-pap 30 05/29/18 20:08 98 Bi-pap 30 05/29/18 20:08 79 27 Bi-pap 30 05/29/18 20:00 75 05/29/18 20:00 97.6 72 20 146/67 (93) 100 05/29/18 18:58 78 138/67 05/29/18 16:32 78 23 100 Facial 40 05/29/18 16:00 75 05/29/18 16:00 2.0 40 05/29/18 16:00 97.6 76 22 138/67 (90) 96 05/29/18 12:00 2.0 40 05/29/18 12:00 98.4 82 22 147/79 (101) 96 05/29/18 11:53 80 05/29/18 10:30 81 23 98 Facial 40 05/29/18 09:30 87 25 98 Facial 40 05/29/18 09:21 2.0 05/29/18 09:00 Nasal Cannula 2.0 05/29/18 08:23 87 26 Bi-pap 40 05/29/18 08:23 Bi-pap 40 05/29/18 08:23 99 Bi-pap 40 05/29/18 07:54 98.5 82 20 146/63 (90) 96 05/29/18 07:49 86 05/29/18 06:35 84 26 99 Facial 40 05/29/18 05:02 100 36 97 Facial 40 05/29/18 04:49 117 05/29/18 04:30 98.0 76 20 153/88 (109) 95 05/29/18 04:25 2.0 05/29/18 03:30 104 32 95 Facial 40 05/29/18 02:45 98.2 05/29/18 01:00 91 22 98 Nasal Cannula 3.0 32 05/29/18 00:48 88 24 98 Nasal Cannula 3.0 32 05/29/18 00:38 72 171/71 05/29/18 00:00 80 05/29/18 00:00 98.2 72 20 171/71 (104) 99 Intake and Output 05/28/18 05/29/18 19:00 07:00 Intake Total 600 ml Output Total 700 ml 600 ml Balance -100 ml -600 ml Intake Oral 600 ml Output Urine Total 700 ml 600 ml # Voids 3 1 2D Echo: EF55%,Mild LVH,Mod MR,Mild AR,RVSP 67 mmHg (severe PHT),Restrictive LV phy Laboratory Tests Test 05/29/18 09:30 05/29/18 10:04 05/29/18 14:00 White Blood Count 14.2 K/UL (4.8-10.8) H Red Blood Count 3.05 M/UL (4.20-5.40) L Hemoglobin 8.3 G/DL (12.0-16.0) L Hematocrit 25.8 % (37.0-47.0) L Mean Corpuscular Volume 85 FL (80-99) Mean Corpuscular Hemoglobin 27.0 PG (27.0-31.0) Mean Corpuscular Hemoglobin Concent 32.0 G/DL (32.0-36.0) Red Cell Distribution Width 18.6 % (11.6-14.8) H Platelet Count 392 K/UL (150-450) Mean Platelet Volume 5.8 FL (6.5-10.1) L Neutrophils (%) (Auto) % (45.0-75.0) Lymphocytes (%) (Auto) % (20.0-45.0) Monocytes (%) (Auto) % (1.0-10.0) Eosinophils (%) (Auto) % (0.0-3.0) Basophils (%) (Auto) % (0.0-2.0) Differential Total Cells Counted 100 Neutrophils % (Manual) 88 % (45-75) H Lymphocytes % (Manual) 6 % (20-45) L Monocytes % (Manual) 3 % (1-10) Eosinophils % (Manual) 0 % (0-3) Basophils % (Manual) 0 % (0-2) Metamyelocytes % 1 % (0-0) H Myelocytes % 2 % (0-0) H Band Neutrophils 0 % (0-8) Platelet Estimate Adequate Platelet Morphology Normal Anisocytosis 2+ Sodium Level 137 MMOL/L (136-145) Potassium Level 4.7 MMOL/L (3.5-5.1) Chloride Level 106 MMOL/L (98-107) Carbon Dioxide Level 18 MMOL/L (21-32) L Anion Gap 13 mmol/L (5-15) Blood Urea Nitrogen 19 mg/dL (7-18) H Creatinine 1.1 MG/DL (0.55-1.30) Estimat Glomerular Filtration Rate 49.1 mL/min (>60) Glucose Level 247 MG/DL (74-106) H Calcium Level 8.4 MG/DL (8.5-10.1) L Total Bilirubin 0.9 MG/DL (0.2-1.0) Aspartate Amino Transf (AST/SGOT) 109 U/L (15-37) H Alanine Aminotransferase (ALT/SGPT) 100 U/L (12-78) H Alkaline Phosphatase 568 U/L (46-116) H Total Protein 6.7 G/DL (6.4-8.2) Albumin 2.0 G/DL (3.4-5.0) L Globulin 4.7 g/dL Albumin/Globulin Ratio 0.4 (1.0-2.7) L Arterial Blood pH 7.320 (7.350-7.450) 7.411 (7.350-7.450) Arterial Blood Partial Pressure CO2 37.3 mmHg (35.0-45.0) 30.0 mmHg (35.0-45.0) L Arterial Blood Partial Pressure O2 32.1 mmHg (75.0-100.0) 123.1 mmHg (75.0-100.0) H Arterial Blood HCO3 19.0 mmol/L (22.0-26.0) L 18.6 mmol/L (22.0-26.0) L Arterial Blood Oxygen Saturation 50.9 % (95-100) *L 98.1 % (95-100) Arterial Blood Base Excess -6.4 (-2-2) L -5.2 (-2-2) L Marlon Test Positive Positive Objective HEENT: Normocephalic, atraumatic, Pupils equally reactive to light and accommodation, EOMI. NECK: No JVD, no carotid bruit. CARDIOVASCULAR: Regular rate and rhythm. No murmurs, gallops or rubs. LUNGS: Clear to auscultation bilaterally. No crackles or Rhonchi. ABDOMEN: Soft and nontender. No organomegaly, + BS. EXTREMITIES: No cyanosis, clubbing or edema. Miller Mckeon MD May 29, 2018 23:02
[2018-05-30] VITALS: BP 135/77
--- NOTE | 2018-05-30 01:12 | NUR ---
NURSE NOTES: Patient has been compliant w/ use of bipap. No episodes of attempting to remove device at this time. Taken off bilateral soft restraints as ordered by Dr. Landry. IV reinsertion still unsuccessful at this time.
[2018-05-30 04:00] VITALS: BP 136/81
[2018-05-30] MEDS: LORazepam 1mg tab ORAL PRN (04:39)
--- NOTE | 2018-05-30 04:43 | NUR ---
NURSE NOTES: Ativan given as ordered for c/o anxiety and restlessness. On Bipap. Will continue to monitor.
--- NOTE | 2018-05-30 05:35 | NUR ---
NURSE NOTES: Reinsertion of IV attempted by WAYNE Guido from ICU. Still unsuccessful at this time. Dr. Landry aware. IV abx not administered this shift due to no IV access. Daughter aware, consent signed for PICC insertion. Verbalized understanding
[2018-05-30] MEDS: Piperacillin/Tazobactam 3.375 GM in NS 110 ML IV SCH ×3 (06:00→22:00)
[2018-05-30] MEDS: NovoLOG Insulin Flexpen SUBQ SCH ×4 (06:55→21:19)
--- NOTE | 2018-05-30 07:59 | NUR ---
CASE MANAGEMENT: REVIEW 05/29/2018 SI:DKA. T 97.6 HR 72 RR 20 B/P 146/67 SATS 100% ON BIPAP FiO2 40 WBC 14.2 CO2 18 BUN 19 GLU 247 CA 8.4 AST 109 ALT 100 ALP 568 IS:ZOSYN IV Q8H NORVASC PO BID ASA PO QD INSULIN ASPART SUBQ AC/HS LOVENOX SUBQ Q12H LOPRESSOR PO Q12H TELE STATUS DCP: PATIENT TO BE DISCHARGED TO HOME ONCE MEDICALLY CLEARED. PLAN OF CARE: ARTERIAL DUPLEX 05/30/2018 SI:DKA. T 98.2 HR 84 RR 20 B/P 136/81 SATS 98% ON FACIAL MASK FiO2 40 NO LABS TODAY IS:ZOSYN IV Q8H NORVASC PO BID ASA PO QD INSULIN ASPART SUBQ AC/HS LOVENOX SUBQ Q12H LOPRESSOR PO Q12H TELE STATUS DCP: PATIENT TO BE DISCHARGED TO HOME ONCE MEDICALLY CLEARED. PLAN OF CARE: ARTERIAL DUPLEX
[2018-05-30 08:00] VITALS: BP 163/74
--- NOTE | 2018-05-30 08:15 | NUR ---
HAND-OFF: Report given to WAYNE Murillo. Plan of care endorsed
--- NOTE | 2018-05-30 08:23 | NUR ---
NURSE NOTES: Pt received alert and oriented x3 on BiPap (15/5 FiO2 - 40%). Per RT - pt was anxious and SOB, so they had to put her on Bipap. RN entered room and found pt kept trying to remove Bipap - informed pt that they had to put her and keep her on BiPap to help with her breathing, pt nodded head and put her hand down. IV site lost at this time, will try to insert one later. Bed in lowest position, call light and belongings within reach.
[2018-05-30] MEDS: Aspirin Baby 81mg ORAL SCH (09:22)
[2018-05-30] MEDS: Metoprolol Tartrate 50mg tab ORAL SCH ×2 (09:22→21:18)
[2018-05-30] MEDS: Gentamicin 0.3% Opth Soln 5ml BOTH EYES SCH ×4 (09:22→21:16)
[2018-05-30] MEDS: Enoxaparin 80mg Inj SUBQ SCH ×2 (09:24→21:17)
--- NOTE | 2018-05-30 11:18 | Infectious Diseases Prog Note ---
Assessment/Plan Assessment/Plan A 1. pancreatitis, EUS negative 2. herpes of lip 3. diabetic ketoacidosis 4. increased LFT 5. fever 6. hypertension 7. Pancytopenia 10. Fungal UTI P 1. continue Zosyn 2. F/u CBC Subjective ROS Limited/Unobtainable: No Constitutional: Reports: no symptoms Respiratory: Reports: no symptoms Cardiovascular: Reports: no symptoms Gastrointestinal/Abdominal: Reports: no symptoms Genitourinary: Reports: no symptoms Allergies: Coded Allergies: SHELLFISH DERIVED (Verified Allergy, Unknown, swelling and itchiness, 05/14) Objective Vital Signs Last 24 Hour Vital Signs Date Time Temp Pulse Resp B/P (MAP) Pulse Ox O2 Delivery O2 Flow Rate FiO2 05/30/18 09:22 73 163/74 05/30/18 09:22 73 165/74 05/30/18 09:00 Nasal Cannula 5.0 05/30/18 08:36 77 26 98 Facial 30 05/30/18 08:00 2.0 40 05/30/18 08:00 76 05/30/18 08:00 97.7 73 19 163/74 (103) 99 05/30/18 07:14 74 29 95 Facial 30 05/30/18 07:13 98 Bi-pap 30 05/30/18 07:12 74 29 Bi-pap 30 05/30/18 07:10 Bi-pap 30 05/30/18 04:57 78 23 100 Facial 30 05/30/18 04:00 66 05/30/18 04:00 2.0 40 05/30/18 04:00 98.2 84 20 136/81 (99) 98 05/30/18 03:00 76 22 99 Facial 30 05/30/18 01:00 81 22 100 Facial 30 05/30/18 00:01 2.0 40 05/30/18 00:00 73 05/30/18 00:00 97.9 71 20 135/77 (96) 99 05/29/18 22:22 79 24 100 Facial 30 05/29/18 21:45 72 146/67 05/29/18 21:00 Nasal Cannula 2.0 05/29/18 20:11 78 23 99 Facial 30 05/29/18 20:09 Bi-pap 30 05/29/18 20:08 98 Bi-pap 30 2/9/19 20:08 79 27 Bi-pap 30 05/29/18 20:00 75 05/29/18 20:00 2.0 40 05/29/18 20:00 97.6 72 20 146/67 (93) 100 05/29/18 18:58 78 138/67 05/29/18 16:32 78 23 100 Facial 40 05/29/18 16:00 75 05/29/18 16:00 2.0 40 05/29/18 16:00 97.6 76 22 138/67 (90) 96 05/29/18 12:00 2.0 40 05/29/18 12:00 98.4 82 22 147/79 (101) 96 05/29/18 11:53 80 Height (Feet): 4 Height (Inches): 10.00 Weight (Pounds): 178 General Appearance: no acute distress HEENT: mucous membranes moist Respiratory/Chest: lungs clear Cardiovascular: normal rate Abdomen: soft, non tender Extremities: other - pedal edema Neurologic/Psychiatric: alert, responsive Laboratory Tests Test 05/29/18 14:00 Arterial Blood pH 7.411 (7.350-7.450) Arterial Blood Partial Pressure CO2 30.0 mmHg (35.0-45.0) L Arterial Blood Partial Pressure O2 123.1 mmHg (75.0-100.0) H Arterial Blood HCO3 18.6 mmol/L (22.0-26.0) L Arterial Blood Oxygen Saturation 98.1 % (95-100) Arterial Blood Base Excess -5.2 (-2-2) L Marlon Test Positive Current Medications Medications (Trade) Dose Ordered Sig/Ellen Route PRN Reason Start Time Stop Time Status Last Admin Dose Admin Acetaminophen (Tylenol) 650 mg Q4H PRN ORAL Mild Pain/Temp > 100.5 05/17/18 20:45 06/16/18 20:44 05/29/18 02:12 Al Hydroxide/Mg Hydroxide (Mylanta) 30 ml Q6H PRN ORAL Abdominal cramps 05/15/18 20:15 06/12/18 08:14 Albuterol/ Ipratropium (Albuterol/ Ipratropium) 3 ml Q4H PRN HHN Shortness of Breath 05/28/18 20:00 06/02/18 19:59 05/29/18 00:48 Amlodipine Besylate (Norvasc) 5 mg BID ORAL 05/29/18 09:00 06/28/18 08:59 05/30/18 09:22 Aspirin (ASA) 81 mg DAILY ORAL 05/25/18 09:00 06/24/18 08:59 05/30/18 09:22 Chlorhexidine Gluconate (Leora-Hex 2%) 1 applic DAILY@2000 TOPIC 05/25/18 20:00 06/24/18 19:59 05/28/18 20:00 Dextrose (Dextrose 50%) 25 ml Q30M PRN IV Hypoglycemia 05/15/18 19:15 06/13/18 10:14 Dextrose (Dextrose 50%) 50 ml Q30M PRN IV Hypoglycemia 05/15/18 19:15 06/13/18 10:14 Enoxaparin Sodium (Lovenox) 80 mg Q12HR SUBQ 05/26/18 21:00 06/25/18 20:59 05/30/18 09:24 Gentamicin Sulfate ([facility]) 1 drop QID BOTH EYES 05/25/18 22:00 06/01/18 21:59 05/30/18 09:22 Insulin Aspart (NovoLOG) BEFORE MEALS AND HS SUBQ 05/15/18 21:00 06/13/18 11:29 05/30/18 06:55 Lorazepam (Ativan) 1 mg Q3H PRN ORAL For Anxiety 05/28/18 20:30 06/04/18 20:29 05/30/18 04:39 Magnesium Hydroxide (Mom) 30 ml DAILYPRN PRN ORAL Constipation 05/15/18 19:00 06/14/18 18:59 05/27/18 05:57 Metoprolol Tartrate (Lopressor) 5 mg Q2H PRN IVP For High Blood Pressure 05/24/18 17:00 06/23/18 16:59 05/29/18 00:38 Metoprolol Tartrate (Lopressor) 50 mg Q12HR ORAL 05/27/18 21:00 06/26/18 20:59 05/30/18 09:22 Pantoprazole (Protonix) 40 mg ACBREAKFAST ORAL 05/27/18 06:30 06/26/18 06:29 05/30/18 06:55 Piperacillin Sod/ Tazobactam Sod 3.375 gm/Sodium Chloride 110 ml @ 27.5 mls/hr EVERY 8 HOURS IV 05/29/18 11:00 06/05/18 10:59 Mahesh Tejada MD May 30, 2018 11:18
[2018-05-30 12:00] VITALS: BP 151/74
[2018-05-30 12:29] LABS: BASOPHILS % (AUTO) 2.2 % (0.0-2.0); HEMATOCRIT 29.8 % (37.0-47.0); HEMOGLOBIN 9.6 G/DL (12.0-16.0); LYMPHOCYTES % (AUTO) 15.1 % (20.0-45.0); MEAN CORPUSCULAR VOLUME 84 FL (80-99); NEUTROPHILS % (AUTO) 74.7 % (45.0-75.0); PLATELET COUNT 510 K/UL (150-450); RED BLOOD COUNT 3.54 M/UL (4.20-5.40); RED CELL DISTRIBUTION WIDTH 20.6 % (11.6-14.8); WHITE BLOOD COUNT 12.7 K/UL (4.8-10.8)
[2018-05-30 12:37] LABS: ALANINE AMINOTRANSFERASE 91 U/L (12-78); ALBUMIN 2.2 G/DL (3.4-5.0); ALBUMIN/GLOBULIN RATIO 0.4 (1.0-2.7); ALKALINE PHOSPHATASE 596 U/L (46-116); ANION GAP 10 mmol/L (5-15); ASPARTATE AMINO TRANSFERASE 70 U/L (15-37); BLOOD UREA NITROGEN 17 mg/dL (7-18); CALCIUM 8.7 MG/DL (8.5-10.1); CARBON DIOXIDE 22 MMOL/L (21-32); CHLORIDE 106 MMOL/L (98-107); POTASSIUM 4.4 MMOL/L (3.5-5.1); SODIUM 137 MMOL/L (136-145)
--- NOTE | 2018-05-30 15:35 | Pulmonology Progress Note ---
Assessment/Plan Assessment/Plan Pulmonary Progress Note Assessment/Plan Impression Diabetic ketoacidosis Anemia Transaminitis of unclear etiology Severe protein calorie malnutrition Evidence of pancreatitis, better Acute renal failure, improved Hyperglycemia Diabetes Hyponatremia Metabolic acidosis Hypercholesterolemia fever oral ulcers afib with RVR leukopenia pancreatitis BiPAP PRN awaiting snf placement monitor for change care noted impression, plan, and exam edited and reviewed in detail care discussed with RN Subjective Allergies: Coded Allergies: SHELLFISH DERIVED (Verified Allergy, Unknown, swelling and itchiness, 05/14) Subjective tolerating diet weak comfortable Objective Vital Signs Noted Laboratory Tests 05/28/18 05:35: White Blood Count 9.7, Red Blood Count 3.18L, Hemoglobin 8.6L, Hematocrit 26.8L , Mean Corpuscular Volume 84, Mean Corpuscular Hemoglobin 27.0, Mean Corpuscular Hemoglobin Concent 32.0, Red Cell Distribution Width 19.0H, Platelet Count 379, Mean Platelet Volume 5.5L, Neutrophils (%) (Auto) 66.5, Lymphocytes (%) (Auto) 14.8L, Monocytes (%) (Auto) 14.9H, Eosinophils (%) (Auto ) 0.1, Basophils (%) (Auto) 3.7H, Sodium Level 140, Potassium Level 4.0, Chloride Level 108H, Carbon Dioxide Level 22, Anion Gap 10, Blood Urea Nitrogen 12, Creatinine 1.0, Estimat Glomerular Filtration Rate 54.8, Glucose Level 166H , Calcium Level 8.0L, Lipase 602H Height (Feet): 4 Height (Inches): 10.00 Weight (Pounds): 174 Objective WDWN NAD clear breath sounds bilaterally without rhonchi or wheeze S1S2 RRR without MRG NABS nontender no HSM no CCE nonfocal oral ulcers nearly resolved alert Subjective ROS Limited/Unobtainable: No Allergies: Coded Allergies: SHELLFISH DERIVED (Verified Allergy, Unknown, swelling and itchiness, 05/14) Objective Last 24 Hour Vital Signs Date Time Temp Pulse Resp B/P (MAP) Pulse Ox O2 Delivery O2 Flow Rate FiO2 05/30/18 14:41 79 24 76 Facial 30 05/30/18 12:00 97.9 72 18 151/74 (99) 97 05/30/18 12:00 2.0 40 05/30/18 12:00 81 05/30/18 09:22 73 163/74 05/30/18 09:22 73 165/74 05/30/18 09:00 Nasal Cannula 5.0 05/30/18 08:36 77 26 98 Facial 30 05/30/18 08:00 2.0 40 05/30/18 08:00 76 05/30/18 08:00 97.7 73 19 163/74 (103) 99 05/30/18 07:14 74 29 95 Facial 30 05/30/18 07:13 98 Bi-pap 30 05/30/18 07:12 74 29 Bi-pap 30 05/30/18 07:10 Bi-pap 30 05/30/18 04:57 78 23 100 Facial 30 05/30/18 04:00 66 05/30/18 04:00 2.0 40 05/30/18 04:00 98.2 84 20 136/81 (99) 98 05/30/18 03:00 76 22 99 Facial 30 05/30/18 01:00 81 22 100 Facial 30 05/30/18 00:01 2.0 40 05/30/18 00:00 73 05/30/18 00:00 97.9 71 20 135/77 (96) 99 05/29/18 22:22 79 24 100 Facial 30 05/29/18 21:45 72 146/67 05/29/18 21:00 Nasal Cannula 2.0 05/29/18 20:11 78 23 99 Facial 30 05/29/18 20:09 Bi-pap 30 05/29/18 20:08 98 Bi-pap 30 05/29/18 20:08 79 27 Bi-pap 30 05/29/18 20:00 75 05/29/18 20:00 2.0 40 05/29/18 20:00 97.6 72 20 146/67 (93) 100 05/29/18 18:58 78 138/67 05/29/18 16:32 78 23 100 Facial 40 05/29/18 16:00 75 05/29/18 16:00 2.0 40 05/29/18 16:00 97.6 76 22 138/67 (90) 96 Intake and Output 05/29/18 05/30/18 19:00 07:00 Intake Total 120 ml Output Total 400 ml Balance -400 ml 120 ml Intake Oral 120 ml Output Urine Total 400 ml # Voids 1 Laboratory Tests 05/30/18 12:15: White Blood Count 12.7H, Red Blood Count 3.54L, Hemoglobin 9.6L, Hematocrit 29.8L, Mean Corpuscular Volume 84, Mean Corpuscular Hemoglobin 27.3, Mean Corpuscular Hemoglobin Concent 32.3, Red Cell Distribution Width 20.6H, Platelet Count 510H, Mean Platelet Volume 5.7L, Neutrophils (%) (Auto) 74.7, Lymphocytes (%) (Auto) 15.1L, Monocytes (%) (Auto) 8.0, Eosinophils (%) (Auto) 0.0, Basophils (%) (Auto) 2.2H, Sodium Level 137, Potassium Level 4.4, Chloride Level 106, Carbon Dioxide Level 22, Anion Gap 10, Blood Urea Nitrogen 17, Creatinine 1.0, Estimat Glomerular Filtration Rate 54.8, Glucose Level 192H, Calcium Level 8.7, Total Bilirubin 1.0, Aspartate Amino Transf (AST/SGOT) 70H, Alanine Aminotransferase (ALT/SGPT) 91H, Alkaline Phosphatase 596H, Total Protein 7.4, Albumin 2.2L, Globulin 5.2, Albumin/Globulin Ratio 0.4L Current Medications Medications (Trade) Dose Ordered Sig/Ellen Route PRN Reason Start Time Stop Time Status Last Admin Dose Admin Acetaminophen (Tylenol) 650 mg Q4H PRN ORAL Mild Pain/Temp > 100.5 05/17/18 20:45 06/16/18 20:44 05/29/18 02:12 Al Hydroxide/Mg Hydroxide (Mylanta) 30 ml Q6H PRN ORAL Abdominal cramps 05/15/18 20:15 06/12/18 08:14 Albuterol/ Ipratropium (Albuterol/ Ipratropium) 3 ml Q4H PRN HHN Shortness of Breath 05/28/18 20:00 06/02/18 19:59 05/29/18 00:48 Amlodipine Besylate (Norvasc) 5 mg BID ORAL 05/29/18 09:00 06/28/18 08:59 05/30/18 09:22 Aspirin (ASA) 81 mg DAILY ORAL 05/25/18 09:00 06/24/18 08:59 05/30/18 09:22 Chlorhexidine Gluconate (Leora-Hex 2%) 1 applic DAILY@2000 TOPIC 05/25/18 20:00 06/24/18 19:59 05/28/18 20:00 Dextrose (Dextrose 50%) 25 ml Q30M PRN IV Hypoglycemia 05/15/18 19:15 06/13/18 10:14 Dextrose (Dextrose 50%) 50 ml Q30M PRN IV Hypoglycemia 05/15/18 19:15 06/13/18 10:14 Enoxaparin Sodium (Lovenox) 80 mg Q12HR SUBQ 05/26/18 21:00 06/25/18 20:59 05/30/18 09:24 Gentamicin Sulfate (Garamycin 0.3% [facility]) 1 drop QID BOTH EYES 05/25/18 22:00 06/01/18 21:59 05/30/18 09:22 Insulin Aspart (NovoLOG) BEFORE MEALS AND HS SUBQ 05/15/18 21:00 06/13/18 11:29 05/30/18 12:44 Lorazepam (Ativan) 1 mg Q3H PRN ORAL For Anxiety 05/28/18 20:30 06/04/18 20:29 05/30/18 04:39 Magnesium Hydroxide (Mom) 30 ml DAILYPRN PRN ORAL Constipation 05/15/18 19:00 06/14/18 18:59 05/27/18 05:57 Metoprolol Tartrate (Lopressor) 5 mg Q2H PRN IVP For High Blood Pressure 05/24/18 17:00 06/23/18 16:59 05/29/18 00:38 Metoprolol Tartrate (Lopressor) 50 mg Q12HR ORAL 05/27/18 21:00 06/26/18 20:59 05/30/18 09:22 Pantoprazole (Protonix) 40 mg ACBREAKFAST ORAL 05/27/18 06:30 06/26/18 06:29 05/30/18 06:55 Piperacillin Sod/ Tazobactam Sod 3.375 gm/Sodium Chloride 110 ml @ 27.5 mls/hr EVERY 8 HOURS IV 05/29/18 11:00 06/05/18 10:59 Gulshan Landry MD May 30, 2018 15:35
[2018-05-30 16:00] VITALS: BP 162/85
--- NOTE | 2018-05-30 18:45 | NUR ---
RESPIRATORY NOTE: Placed pt back on bipap 15/5 FIO2 30%. Foam tape underneath facial mask. Bipap plugged into red outlet. Will continue to monitor pt's progress.
--- NOTE | 2018-05-30 19:21 | NUR ---
HAND-OFF: Report given to WAYNE Maurice. No acute distress.
[2018-05-30 20:00] VITALS: BP 157/73
[2018-05-30] MEDS: Dyna-Hex 2% Top Sol 2oz TOPIC SCH (20:00)
[2018-05-30] MEDS ORDERED: Dyna-Hex 2% Top Sol 2oz TOPIC SCH (20:00)
--- NOTE | 2018-05-30 20:00 | NUR ---
NURSE NOTES: Pt asleep in bed, breathing easily on bipap, responds to soft voice, denies pain at this time. Daughter at bedside. Vital signs stable with SR at 78 on monitor. No IV access, MD aware. Purewick in place draining clear yellow urine to collection canister on wall. SCD in place and running. Bed left in low position, exit alarm set, side rails up x 3 and call light left near pt's hand.
--- NOTE | 2018-05-30 23:05 | Cardiology Progress Note ---
Assessment/Plan Assessment/Plan 1. Paroxysmal atrial fibrillation, in SR now, due to CHADS-VASC score of 5, continue enoxaparin and metoprolol.. 2. Hx of CAD, s/p CABG, ASA , atorvastatin and metoprolol. No wall motion abnormalities on Echo. LVEF ~55%. 3. Sinus tachycardia, resolved, due to hypovolemia. 4. DKA, resolved. 5. DM, non-compliant with medications. 6. HTN, stage II, optimize amlodipine, continue metoprolol. 7. Severe pulmonary HTN. Subjective Subjective Sinus rhythm at rate of 92. On facial oxygen. Objective Last 24 Hour Vital Signs Date Time Temp Pulse Resp B/P (MAP) Pulse Ox O2 Delivery O2 Flow Rate FiO2 05/30/18 21:18 92 162/85 05/30/18 21:06 79 21 97 Facial 30 05/30/18 20:00 2.0 30 05/30/18 20:00 78 05/30/18 20:00 99.3 78 20 157/73 (101) 100 05/30/18 18:55 92 26 Bi-pap 30 05/30/18 18:45 96 Bi-pap 30 05/30/18 18:45 93 27 95 Facial 30 05/30/18 18:45 Bi-pap 30 05/30/18 17:24 76 162/85 05/30/18 16:00 73 05/30/18 16:00 98.0 76 20 162/85 (110) 95 05/30/18 16:00 2.0 40 05/30/18 15:45 98 33 96 Facial 30 05/30/18 14:41 79 24 76 Facial 30 05/30/18 12:00 97.9 72 18 151/74 (99) 97 05/30/18 12:00 2.0 40 05/30/18 12:00 81 05/30/18 09:22 73 163/74 05/30/18 09:22 73 165/74 05/30/18 09:00 Nasal Cannula 5.0 05/30/18 08:36 77 26 98 Facial 30 05/30/18 08:00 2.0 40 05/30/18 08:00 76 05/30/18 08:00 97.7 73 19 163/74 (103) 99 05/30/18 07:14 74 29 95 Facial 30 05/30/18 07:13 98 Bi-pap 30 05/30/18 07:12 74 29 Bi-pap 30 05/30/18 07:10 Bi-pap 30 05/30/18 04:57 78 23 100 Facial 30 05/30/18 04:00 66 05/30/18 04:00 2.0 40 05/30/18 04:00 98.2 84 20 136/81 (99) 98 05/30/18 03:00 76 22 99 Facial 30 05/30/18 01:00 81 22 100 Facial 30 05/30/18 00:01 2.0 40 05/30/18 00:00 73 05/30/18 00:00 97.9 71 20 135/77 (96) 99 Intake and Output 05/29/18 05/30/18 19:00 07:00 Intake Total 120 ml Output Total 400 ml Balance -400 ml 120 ml Intake Oral 120 ml Output Urine Total 400 ml # Voids 1 2D Echo: EF55%,Mild LVH,Mod MR,Mild AR,RVSP 67 mmHg (severe PHT),Restrictive LV phy Laboratory Tests Test 05/30/18 12:15 White Blood Count 12.7 K/UL (4.8-10.8) H Red Blood Count 3.54 M/UL (4.20-5.40) L Hemoglobin 9.6 G/DL (12.0-16.0) L Hematocrit 29.8 % (37.0-47.0) L Mean Corpuscular Volume 84 FL (80-99) Mean Corpuscular Hemoglobin 27.3 PG (27.0-31.0) Mean Corpuscular Hemoglobin Concent 32.3 G/DL (32.0-36.0) Red Cell Distribution Width 20.6 % (11.6-14.8) H Platelet Count 510 K/UL (150-450) H Mean Platelet Volume 5.7 FL (6.5-10.1) L Neutrophils (%) (Auto) 74.7 % (45.0-75.0) Lymphocytes (%) (Auto) 15.1 % (20.0-45.0) L Monocytes (%) (Auto) 8.0 % (1.0-10.0) Eosinophils (%) (Auto) 0.0 % (0.0-3.0) Basophils (%) (Auto) 2.2 % (0.0-2.0) H Sodium Level 137 MMOL/L (136-145) Potassium Level 4.4 MMOL/L (3.5-5.1) Chloride Level 106 MMOL/L (98-107) Carbon Dioxide Level 22 MMOL/L (21-32) Anion Gap 10 mmol/L (5-15) Blood Urea Nitrogen 17 mg/dL (7-18) Creatinine 1.0 MG/DL (0.55-1.30) Estimat Glomerular Filtration Rate 54.8 mL/min (>60) Glucose Level 192 MG/DL (74-106) H Calcium Level 8.7 MG/DL (8.5-10.1) Total Bilirubin 1.0 MG/DL (0.2-1.0) Aspartate Amino Transf (AST/SGOT) 70 U/L (15-37) H Alanine Aminotransferase (ALT/SGPT) 91 U/L (12-78) H Alkaline Phosphatase 596 U/L (46-116) H Total Protein 7.4 G/DL (6.4-8.2) Albumin 2.2 G/DL (3.4-5.0) L Globulin 5.2 g/dL Albumin/Globulin Ratio 0.4 (1.0-2.7) L Objective HEENT: Normocephalic, atraumatic, Pupils equally reactive to light and accommodation, EOMI. NECK: No JVD, no carotid bruit. CARDIOVASCULAR: Regular rate and rhythm. No murmurs, gallops or rubs. LUNGS: Clear to auscultation bilaterally. No crackles or Rhonchi. ABDOMEN: Soft and nontender. No organomegaly, + BS. EXTREMITIES: No cyanosis, clubbing or edema. Miller Mckeon MD May 30, 2018 23:05
[2018-05-31] VITALS (7 sets, daily range): BP systolic 142–168; BP diastolic 72–98
[2018-05-31] MEDS: Piperacillin/Tazobactam 3.375 GM in NS 110 ML IV SCH ×3 (05:42→21:34)
[2018-05-31] MEDS: NovoLOG Insulin Flexpen SUBQ SCH ×4 (06:04→21:33)
--- NOTE | 2018-05-31 07:31 | NUR ---
HAND-OFF: Report given to WAYNE Gregory.
--- NOTE | 2018-05-31 07:42 | NUR ---
NURSE NOTES: Pt setup for breakfast in bed, breathing easily on 2L NC, and denies pain at this time. Vital signs stable with SR at 79 on monitor. No IV access, MD aware. Purewick in place draining clear yellow urine to collection canister on wall. Patient refused sCD. Bed left in low position, exit alarm set, side rails up x 3 and call light left near pt's hand.
[2018-05-31] MEDS ORDERED: Heparin 2000 units/Ns 1000ml INJ PRN (08:30)
[2018-05-31] MEDS ORDERED: Lidocaine 1% Plain 30 ml INJ PRN (08:30)
--- NOTE | 2018-05-31 08:43 | General Progress Note ---
Assessment/Plan Assessment/Plan Impression Diabetic ketoacidosis Anemia Transaminitis of unclear etiology Severe protein calorie malnutrition Evidence of pancreatitis, better Acute renal failure, improved Hyperglycemia Diabetes Hyponatremia Metabolic acidosis Hypercholesterolemia fever oral ulcers afib with RVR leukopenia pancreatitis dc planning awaiting snf placement monitor for change care noted impression, plan, and exam edited and reviewed in detail care discussed with RN Subjective Allergies: Coded Allergies: SHELLFISH DERIVED (Verified Allergy, Unknown, swelling and itchiness, 05/14) Subjective care noted weak comfortable Objective Last 24 Hour Vital Signs Date Time Temp Pulse Resp B/P (MAP) Pulse Ox O2 Delivery O2 Flow Rate FiO2 05/31/18 08:04 Nasal Cannula 4.0 05/31/18 08:02 2.0 30 05/31/18 07:51 97.5 92 22 142/72 (95) 96 05/31/18 06:58 81 14 Bi-pap 40 05/31/18 06:58 100 Bi-pap 100 05/31/18 06:58 80 14 100 Facial 40 05/31/18 06:58 Bi-pap 40 05/31/18 05:20 77 18 99 Facial 30 05/31/18 04:00 98.4 77 20 158/73 (101) 100 05/31/18 04:00 2.0 30 05/31/18 04:00 70 05/31/18 02:30 78 23 98 Facial 30 05/31/18 00:34 82 22 100 Facial 30 05/31/18 00:00 98.6 79 20 163/84 (110) 100 05/31/18 00:00 2.0 30 05/31/18 00:00 79 05/30/18 23:16 97 28 98 Facial 30 05/30/18 21:18 92 162/85 05/30/18 21:06 79 21 97 Facial 30 05/30/18 21:00 Nasal Cannula 5.0 05/30/18 20:00 2.0 30 05/30/18 20:00 78 05/30/18 20:00 99.3 78 20 157/73 (101) 100 05/30/18 18:55 92 26 Bi-pap 30 05/30/18 18:45 96 Bi-pap 30 05/30/18 18:45 93 27 95 Facial 30 05/30/18 18:45 Bi-pap 30 05/30/18 17:24 76 162/85 05/30/18 16:00 73 05/30/18 16:00 98.0 76 20 162/85 (110) 95 05/30/18 16:00 2.0 40 05/30/18 15:45 98 33 96 Facial 30 05/30/18 14:41 79 24 76 Facial 30 05/30/18 12:00 97.9 72 18 151/74 (99) 97 05/30/18 12:00 2.0 40 05/30/18 12:00 81 05/30/18 09:22 73 163/74 05/30/18 09:22 73 165/74 05/30/18 09:00 Nasal Cannula 5.0 Intake and Output 05/30/18 05/31/18 18:59 06:59 Intake Total 240 ml Output Total 450 ml Balance -210 ml Intake Oral 240 ml Output Urine Total 450 ml Laboratory Tests 05/30/18 12:15: White Blood Count 12.7H, Red Blood Count 3.54L, Hemoglobin 9.6L, Hematocrit 29.8L, Mean Corpuscular Volume 84, Mean Corpuscular Hemoglobin 27.3, Mean Corpuscular Hemoglobin Concent 32.3, Red Cell Distribution Width 20.6H, Platelet Count 510H, Mean Platelet Volume 5.7L, Neutrophils (%) (Auto) 74.7, Lymphocytes (%) (Auto) 15.1L, Monocytes (%) (Auto) 8.0, Eosinophils (%) (Auto) 0.0, Basophils (%) (Auto) 2.2H, Sodium Level 137, Potassium Level 4.4, Chloride Level 106, Carbon Dioxide Level 22, Anion Gap 10, Blood Urea Nitrogen 17, Creatinine 1.0, Estimat Glomerular Filtration Rate 54.8, Glucose Level 192H, Calcium Level 8.7, Total Bilirubin 1.0, Aspartate Amino Transf (AST/SGOT) 70H, Alanine Aminotransferase (ALT/SGPT) 91H, Alkaline Phosphatase 596H, Total Protein 7.4, Albumin 2.2L, Globulin 5.2, Albumin/Globulin Ratio 0.4L Height (Feet): 4 Height (Inches): 10.00 Weight (Pounds): 169 Objective WDWN NAD clear breath sounds bilaterally without rhonchi or wheeze S1S2 RRR without MRG NABS nontender no HSM no CCE nonfocal oral ulcers nearly resolved alert Jesus Lew MD May 31, 2018 08:43
[2018-05-31] MEDS: Aspirin Baby 81mg ORAL SCH (10:08)
[2018-05-31] MEDS: Metoprolol Tartrate 50mg tab ORAL SCH ×2 (10:08→21:30)
[2018-05-31] MEDS: Gentamicin 0.3% Opth Soln 5ml BOTH EYES SCH ×4 (10:11→21:36)
[2018-05-31] MEDS: Enoxaparin 80mg Inj SUBQ SCH ×2 (10:12→21:32)
--- NOTE | 2018-05-31 10:15 | GI Progress Note ---
Assessment/Plan Problems: (1) Pancreatitis ICD Codes: K85.90 - Acute pancreatitis without necrosis or infection, unspecified SNOMED: 47279479 Qualifiers: Qualified Codes: K85.90 - Acute pancreatitis without necrosis or infection, unspecified (2) DKA (diabetic ketoacidosis) ICD Codes: E13.10 - Other specified diabetes mellitus with ketoacidosis without coma SNOMED: 588688378, [id number] Qualifiers: Qualified Codes: E10.10 - Type 1 diabetes mellitus with ketoacidosis without coma (3) Diabetes ICD Codes: E11.9 - Type 2 diabetes mellitus without complications SNOMED: 66514735 Status: stable Status Narrative Discussed with Dr. Benito Assessment/Plan Status post EUS summary of findings 1. Pancreatitis, most probably acute, without any pancreatic duct dilatation or mass. 2. No evidence of any common bile duct dilatation was seen with common bile duct stone. 3. Gallbladder wall thickening, nonspecific. 4. 1 cm kristina hepatis lymph node, nonspecific. Elevated lipase levels, downtrending new onset SOB, CXR ordered. RECOMMENDATIONS: Advance to soft renal diet No need for ERCP Pain management Trend lipase Zofran as needed Follow-up labs fu cxr DC planning The patient was seen and examined at bedside and all new and available data was reviewed in the patients chart. I agree with the above findings, impression and plan. (Patient seen earlier today. Signature stamp does not reflect patient encounter time.). - Neeraj Benito MD Subjective Subjective denies any abdominal pain Tolerating diet Objective Last 24 Hour Vital Signs Date Time Temp Pulse Resp B/P (MAP) Pulse Ox O2 Delivery O2 Flow Rate FiO2 05/31/18 10:08 78 142/72 05/31/18 10:08 78 142/72 05/31/18 08:43 78 16 99 Facial 40 05/31/18 08:04 Nasal Cannula 4.0 05/31/18 08:02 2.0 30 05/31/18 07:51 97.5 92 22 142/72 (95) 96 05/31/18 06:58 81 14 Bi-pap 40 05/31/18 06:58 100 Bi-pap 100 05/31/18 06:58 80 14 100 Facial 40 05/31/18 06:58 Bi-pap 40 05/31/18 05:20 77 18 99 Facial 30 05/31/18 04:00 98.4 77 20 158/73 (101) 100 05/31/18 04:00 2.0 30 05/31/18 04:00 70 05/31/18 02:30 78 23 98 Facial 30 05/31/18 00:34 82 22 100 Facial 30 05/31/18 00:00 98.6 79 20 163/84 (110) 100 05/31/18 00:00 2.0 30 05/31/18 00:00 79 05/30/18 23:16 97 28 98 Facial 30 05/30/18 21:18 92 162/85 05/30/18 21:06 79 21 97 Facial 30 05/30/18 21:00 Nasal Cannula 5.0 05/30/18 20:00 2.0 30 05/30/18 20:00 78 05/30/18 20:00 99.3 78 20 157/73 (101) 100 05/30/18 18:55 92 26 Bi-pap 30 05/30/18 18:45 96 Bi-pap 30 05/30/18 18:45 93 27 95 Facial 30 05/30/18 18:45 Bi-pap 30 05/30/18 17:24 76 162/85 05/30/18 16:00 73 05/30/18 16:00 98.0 76 20 162/85 (110) 95 05/30/18 16:00 2.0 40 05/30/18 15:45 98 33 96 Facial 30 05/30/18 14:41 79 24 76 Facial 30 05/30/18 12:00 97.9 72 18 151/74 (99) 97 05/30/18 12:00 2.0 40 05/30/18 12:00 81 Intake and Output 05/30/18 05/31/18 18:59 06:59 Intake Total 240 ml Output Total 450 ml Balance -210 ml Intake Oral 240 ml Output Urine Total 450 ml Laboratory Tests Test 05/30/18 12:15 White Blood Count 12.7 K/UL (4.8-10.8) H Red Blood Count 3.54 M/UL (4.20-5.40) L Hemoglobin 9.6 G/DL (12.0-16.0) L Hematocrit 29.8 % (37.0-47.0) L Mean Corpuscular Volume 84 FL (80-99) Mean Corpuscular Hemoglobin 27.3 PG (27.0-31.0) Mean Corpuscular Hemoglobin Concent 32.3 G/DL (32.0-36.0) Red Cell Distribution Width 20.6 % (11.6-14.8) H Platelet Count 510 K/UL (150-450) H Mean Platelet Volume 5.7 FL (6.5-10.1) L Neutrophils (%) (Auto) 74.7 % (45.0-75.0) Lymphocytes (%) (Auto) 15.1 % (20.0-45.0) L Monocytes (%) (Auto) 8.0 % (1.0-10.0) Eosinophils (%) (Auto) 0.0 % (0.0-3.0) Basophils (%) (Auto) 2.2 % (0.0-2.0) H Sodium Level 137 MMOL/L (136-145) Potassium Level 4.4 MMOL/L (3.5-5.1) Chloride Level 106 MMOL/L (98-107) Carbon Dioxide Level 22 MMOL/L (21-32) Anion Gap 10 mmol/L (5-15) Blood Urea Nitrogen 17 mg/dL (7-18) Creatinine 1.0 MG/DL (0.55-1.30) Estimat Glomerular Filtration Rate 54.8 mL/min (>60) Glucose Level 192 MG/DL (74-106) H Calcium Level 8.7 MG/DL (8.5-10.1) Total Bilirubin 1.0 MG/DL (0.2-1.0) Aspartate Amino Transf (AST/SGOT) 70 U/L (15-37) H Alanine Aminotransferase (ALT/SGPT) 91 U/L (12-78) H Alkaline Phosphatase 596 U/L (46-116) H Total Protein 7.4 G/DL (6.4-8.2) Albumin 2.2 G/DL (3.4-5.0) L Globulin 5.2 g/dL Albumin/Globulin Ratio 0.4 (1.0-2.7) L Height (Feet): 4 Height (Inches): 10.00 Weight (Pounds): 169 General Appearance: WD/WN, no apparent distress, alert Cardiovascular: normal rate Respiratory/Chest: normal breath sounds, no respiratory distress Abdominal Exam: normal bowel sounds, non tender, soft Extremities: normal range of motion, non-tender Ros Berry NP May 31, 2018 10:15
--- NOTE | 2018-05-31 10:31 | Diagnostic Imaging Report ---
Indications: Needs long-term IV access Technique: Procedural timeout performed. Ultrasound confirms patent compressible left basilic vein. Total sterile technique, including sterile probe cover and sterile gel, hat, mask, sterile gown, large sterile drape, and preparation with 2% chlorhexidine utilized. Local anesthesia with 1% lidocaine. Under real-time ultrasound guidance, puncture left basilic vein using 21-gauge needle, documented and archived, passage 0.018 guidewire under direct fluoroscopy, which was used to determine appropriate catheter length, exchange for 5 [place] peel-away sheath. 5 [place] Bard dual-lumen power PICC cut to 41 cm. It was inserted through the peel-away sheath. Peel-away sheath and guidewire removed. Catheter fixed to the skin. Both catheter ports aspirated and flushed. Patient tolerated procedure well, without immediate complication. Digital radiograph documents satisfactory catheter tip position, at the cavoatrial junction. Total fluoroscopy time 12.6 seconds. Total dose area product 1.85 mGy Total number of images: 1 Impression: Successful placement of left arm PICC under sonographic and fluoroscopic guidance, as described above.
--- NOTE | 2018-05-31 11:11 | Infectious Diseases Prog Note ---
Assessment/Plan Assessment/Plan A 1. pancreatitis, EUS negative 2. herpes of lip 3. diabetic ketoacidosis 4. increased LFT 5. fever 6. hypertension 7. Pancytopenia 10. Fungal UTI P 1. continue Zosyn Subjective ROS Limited/Unobtainable: Yes Respiratory: Reports: no symptoms Gastrointestinal/Abdominal: Reports: no symptoms Genitourinary: Reports: no symptoms Allergies: Coded Allergies: SHELLFISH DERIVED (Verified Allergy, Unknown, swelling and itchiness, 05/14) Objective Vital Signs Last 24 Hour Vital Signs Date Time Temp Pulse Resp B/P (MAP) Pulse Ox O2 Delivery O2 Flow Rate FiO2 05/31/18 10:08 78 142/72 05/31/18 10:08 78 142/72 05/31/18 08:43 78 16 99 Facial 40 05/31/18 08:36 79 05/31/18 08:04 Nasal Cannula 4.0 05/31/18 08:02 2.0 30 05/31/18 07:51 97.5 92 22 142/72 (95) 96 05/31/18 06:58 81 14 Bi-pap 40 05/31/18 06:58 100 Bi-pap 100 05/31/18 06:58 80 14 100 Facial 40 05/31/18 06:58 Bi-pap 40 05/31/18 05:20 77 18 99 Facial 30 05/31/18 04:00 98.4 77 20 158/73 (101) 100 05/31/18 04:00 2.0 30 05/31/18 04:00 70 05/31/18 02:30 78 23 98 Facial 30 05/31/18 00:34 82 22 100 Facial 30 05/31/18 00:00 98.6 79 20 163/84 (110) 100 05/31/18 00:00 2.0 30 05/31/18 00:00 79 05/30/18 23:16 97 28 98 Facial 30 05/30/18 21:18 92 162/85 05/30/18 21:06 79 21 97 Facial 30 05/30/18 21:00 Nasal Cannula 5.0 05/30/18 20:00 2.0 30 05/30/18 20:00 78 05/30/18 20:00 99.3 78 20 157/73 (101) 100 05/30/18 18:55 92 26 Bi-pap 30 05/30/18 18:45 96 Bi-pap 30 05/30/18 18:45 93 27 95 Facial 30 05/30/18 18:45 Bi-pap 30 05/30/18 17:24 76 162/85 05/30/18 16:00 73 05/30/18 16:00 98.0 76 20 162/85 (110) 95 05/30/18 16:00 2.0 40 05/30/18 15:45 98 33 96 Facial 30 05/30/18 14:41 79 24 76 Facial 30 05/30/18 12:00 97.9 72 18 151/74 (99) 97 05/30/18 12:00 2.0 40 05/30/18 12:00 81 Height (Feet): 4 Height (Inches): 10.00 Weight (Pounds): 169 General Appearance: no acute distress HEENT: mucous membranes moist Respiratory/Chest: lungs clear Cardiovascular: normal rate Abdomen: soft, non tender Extremities: no edema Neurologic/Psychiatric: alert, responsive Laboratory Tests Test 05/30/18 12:15 White Blood Count 12.7 K/UL (4.8-10.8) H Red Blood Count 3.54 M/UL (4.20-5.40) L Hemoglobin 9.6 G/DL (12.0-16.0) L Hematocrit 29.8 % (37.0-47.0) L Mean Corpuscular Volume 84 FL (80-99) Mean Corpuscular Hemoglobin 27.3 PG (27.0-31.0) Mean Corpuscular Hemoglobin Concent 32.3 G/DL (32.0-36.0) Red Cell Distribution Width 20.6 % (11.6-14.8) H Platelet Count 510 K/UL (150-450) H Mean Platelet Volume 5.7 FL (6.5-10.1) L Neutrophils (%) (Auto) 74.7 % (45.0-75.0) Lymphocytes (%) (Auto) 15.1 % (20.0-45.0) L Monocytes (%) (Auto) 8.0 % (1.0-10.0) Eosinophils (%) (Auto) 0.0 % (0.0-3.0) Basophils (%) (Auto) 2.2 % (0.0-2.0) H Sodium Level 137 MMOL/L (136-145) Potassium Level 4.4 MMOL/L (3.5-5.1) Chloride Level 106 MMOL/L (98-107) Carbon Dioxide Level 22 MMOL/L (21-32) Anion Gap 10 mmol/L (5-15) Blood Urea Nitrogen 17 mg/dL (7-18) Creatinine 1.0 MG/DL (0.55-1.30) Estimat Glomerular Filtration Rate 54.8 mL/min (>60) Glucose Level 192 MG/DL (74-106) H Calcium Level 8.7 MG/DL (8.5-10.1) Total Bilirubin 1.0 MG/DL (0.2-1.0) Aspartate Amino Transf (AST/SGOT) 70 U/L (15-37) H Alanine Aminotransferase (ALT/SGPT) 91 U/L (12-78) H Alkaline Phosphatase 596 U/L (46-116) H Total Protein 7.4 G/DL (6.4-8.2) Albumin 2.2 G/DL (3.4-5.0) L Globulin 5.2 g/dL Albumin/Globulin Ratio 0.4 (1.0-2.7) L Current Medications Medications (Trade) Dose Ordered Sig/Ellen Route PRN Reason Start Time Stop Time Status Last Admin Dose Admin Acetaminophen (Tylenol) 650 mg Q4H PRN ORAL Mild Pain/Temp > 100.5 05/17/18 20:45 06/16/18 20:44 05/29/18 02:12 Al Hydroxide/Mg Hydroxide (Mylanta) 30 ml Q6H PRN ORAL Abdominal cramps 05/15/18 20:15 06/12/18 08:14 Albuterol/ Ipratropium (Albuterol/ Ipratropium) 3 ml Q4H PRN HHN Shortness of Breath 05/28/18 20:00 06/02/18 19:59 05/29/18 00:48 Amlodipine Besylate (Norvasc) 5 mg BID ORAL 05/29/18 09:00 06/28/18 08:59 05/31/18 10:08 Aspirin (ASA) 81 mg DAILY ORAL 05/25/18 09:00 06/24/18 08:59 05/31/18 10:08 Chlorhexidine Gluconate (Leora-Hex 2%) 1 applic DAILY@2000 TOPIC 05/25/18 20:00 06/24/18 19:59 05/28/18 20:00 Dextrose (Dextrose 50%) 25 ml Q30M PRN IV Hypoglycemia 05/15/18 19:15 06/13/18 10:14 Dextrose (Dextrose 50%) 50 ml Q30M PRN IV Hypoglycemia 05/15/18 19:15 06/13/18 10:14 Enoxaparin Sodium (Lovenox) 80 mg Q12HR SUBQ 05/26/18 21:00 06/25/18 20:59 05/31/18 10:12 Gentamicin Sulfate (Garamycin 0.3% Opt Sol) 1 drop QID BOTH EYES 05/25/18 22:00 06/01/18 21:59 05/31/18 10:11 Heparin Sodium/ Sodium Chloride (Heparin 2000 units/Ns 1000ml premix) 2,000 unit ONCE PRN INJ picc line placement 05/31/18 08:30 06/01/18 08:29 Insulin Aspart (NovoLOG) BEFORE MEALS AND HS SUBQ 05/15/18 21:00 06/13/18 11:29 05/31/18 06:04 Lidocaine HCl (Xylocaine 1% 30ml) 30 ml ONCE PRN INJ picc line placement 05/31/18 08:30 06/01/18 23:59 Lorazepam (Ativan) 1 mg Q3H PRN ORAL For Anxiety 05/28/18 20:30 06/04/18 20:29 05/30/18 04:39 Magnesium Hydroxide (Mom) 30 ml DAILYPRN PRN ORAL Constipation 05/15/18 19:00 06/14/18 18:59 05/27/18 05:57 Metoprolol Tartrate (Lopressor) 5 mg Q2H PRN IVP For High Blood Pressure 05/24/18 17:00 06/23/18 16:59 05/29/18 00:38 Metoprolol Tartrate (Lopressor) 50 mg Q12HR ORAL 05/27/18 21:00 06/26/18 20:59 05/31/18 10:08 Pantoprazole (Protonix) 40 mg ACBREAKFAST ORAL 05/27/18 06:30 06/26/18 06:29 05/31/18 06:00 Piperacillin Sod/ Tazobactam Sod 3.375 gm/Sodium Chloride 110 ml @ 27.5 mls/hr EVERY 8 HOURS IV 05/29/18 11:00 06/05/18 10:59 Mahesh Tejada MD May 31, 2018 11:11
--- NOTE | 2018-05-31 14:57 | NUR ---
[employer] BLACK BELT SI: RESP FAILURE T. 97.5 HR 92 RR 22 B/P 142/72 BIPAP 40% 15/5 IS: ZOSYN IV ASA PO LOVENOX SUBC TELE STATUS
[2018-05-31] MEDS: Albuterol/Ipratropium 3ml neb HHN PRN (17:06)
--- NOTE | 2018-05-31 19:01 | NUR ---
RESPIRATORY NOTE: Pt placed back on bipap because had a difficult time breathing. Current bipap settings. Bipap plugged into red outlet. Will continue to monitor.
--- NOTE | 2018-05-31 19:52 | NUR ---
HAND-OFF: Report given to Corin Gould.
[2018-05-31] MEDS: LORazepam 1mg tab ORAL PRN (21:31)
[2018-05-31] MEDS: Dyna-Hex 2% Top Sol 2oz TOPIC SCH (21:38)
--- NOTE | 2018-05-31 22:04 | General Progress Note ---
Assessment/Plan Assessment/Plan Assessment and Recs # Pancytopenia -- appears that initial hep and hiv are negative though final results to follow, liver shows no major hsm or cirrhosis, may consider meds or bone marrow process, smear reviewed --> this pancytopenia is acute in onset, over last several days, thus most likely abx infection related --> query meds, review with ID, is on micafungin now, monitor counts closely --> if no other cause and/or worsens, may consider flow cytometry or a bone marrow biopsy --> nepogen 300mcg sq to maintain anc >1500 --> wbc trend : 1.7-->4.3-->3.1-->3.4-->7.7-->8.1--12--> # Anemia of chronic disease - monitor anemia panel --> hemolysis does not appear to be the case --> anemia panel reviewed --> hgb trend: 8.3-->9.2-->8.9-->8.7-->9 # Paroxysmal atrial fibrillation, due to CHADS-VASC score of 5, we require to keep anticoagulated, on metoprolol --> continue on apixaban # Hx of CAD, s/p CABG, ASA , atorvastatin and metoprolol. No wall motion abnormalities on Echo. LVEF ~55%. --> appreciate cards recs # Sinus tachycardia due to hypovolemia, resolved. # DKA, resolved. --> continue monitor # DM, non-compliant with medications. # Hx of HTN, controlled with metoprolol. # pancreatitis # increased LFT The timing of this note does not necessarily reflect the time of the patient was seen. Greatly appreciate consultation! Subjective Constitutional: Denies: no symptoms, chills, diaphoresis, fever, malaise, weakness, other HEENT: Denies: no symptoms, eye pain, blurred vision, tearing, double vision, ear pain, ear discharge, nose pain, nose congestion, throat pain, throat swelling, mouth pain, mouth swelling, other Cardiovascular: Denies: no symptoms, chest pain, edema, irregular heart rate, lightheadedness, palpitations, syncope, other Respiratory: Denies: no symptoms, cough, orthopnea, shortness of breath, SOB with excertion, SOB at rest, sputum, stridor, wheezing, other Gastrointestinal/Abdominal: Denies: no symptoms, abdomen distended, abdominal pain, black stools, tarry stools, blood in stool, constipated, diarrhea, difficulty swallowing, nausea, poor appetite, poor fluid intake, rectal bleeding , vomiting, other Genitourinary: Denies: no symptoms, burning, discharge, frequency, flank pain, hematuria, incontinence, pain, urgency, other Neurologic/Psychiatric: Denies: no symptoms, anxiety, depressed, emotional problems, headache, numbness, paresthesia, pre-existing deficit, seizure, tingling, tremors, weakness, other Endocrine: Denies: no symptoms, excessive sweating, flushing, intolerance to cold, intolerance to heat, increased hunger, increased thirst, increased urine, unexplained weight gain, unexplained weight loss, other Hematologic/Lymphatic: Denies: no symptoms, anemia, easy bleeding, easy bruising, other Allergies: Coded Allergies: SHELLFISH DERIVED (Verified Allergy, Unknown, swelling and itchiness, 05/14) Subjective 05/18: Pt is awake and comfortable, no events, leukopenia improved, wbc 4.3, plt 151 05/19: seen by bedside, awake, comfortable, plt 122 05/20: Pt is awake and comfortable, no events 05/21: Pt is seen in the room, resting in bed, no fevers or chills, wbc 8.7, plt 117 2: Pt is resting in bed, awake, comfortable, no fevers or chills, no acute distress. 2: EGD and EUS done today, has no gallbladder stones, only pancreatitis, no events 2: no events, dermatitis has improved, off loading of heels, pancreatitis and dka better 2: Pt is awake, comfortable, no acute events overnight, hgb 8.6 2: seen by bedside, awake, comfortable, no events 05/28: resting in bed, awake, comfortable, no fevers or chills, no acute distress , No need for ERCP per GI, 05/31: Pt is awake and comfortable, no events Objective Last 24 Hour Vital Signs Date Time Temp Pulse Resp B/P (MAP) Pulse Ox O2 Delivery O2 Flow Rate FiO2 05/31/18 21:30 120 168/98 05/31/18 21:16 93 27 98 Facial 50 2/11/19 19:01 106 30 96 Facial 50 05/31/18 19:00 Bi-pap 50 05/31/18 19:00 96 Bi-pap 50 05/31/18 19:00 94 30 Bi-pap 40 05/31/18 17:14 70 20 100 Bi-pap 40 05/31/18 17:06 90 26 90 Nasal Cannula 3.0 32 05/31/18 17:00 70 18 100 Facial 40 05/31/18 16:00 2.0 30 05/31/18 16:00 98.8 77 22 146/75 (98) 96 05/31/18 15:56 78 05/31/18 12:00 96.9 83 25 156/74 (101) 96 05/31/18 12:00 2.0 30 05/31/18 11:53 68 05/31/18 10:08 78 142/72 05/31/18 10:08 78 142/72 05/31/18 08:43 78 16 99 Facial 40 05/31/18 08:36 79 05/31/18 08:04 Nasal Cannula 4.0 05/31/18 08:02 2.0 30 05/31/18 07:51 97.5 92 22 142/72 (95) 96 05/31/18 06:58 81 14 Bi-pap 40 05/31/18 06:58 100 Bi-pap 100 05/31/18 06:58 80 14 100 Facial 40 05/31/18 06:58 Bi-pap 40 05/31/18 05:20 77 18 99 Facial 30 05/31/18 04:00 98.4 77 20 158/73 (101) 100 05/31/18 04:00 2.0 30 05/31/18 04:00 70 05/31/18 02:30 78 23 98 Facial 30 05/31/18 00:34 82 22 100 Facial 30 05/31/18 00:00 98.6 79 20 163/84 (110) 100 05/31/18 00:00 2.0 30 05/31/18 00:00 79 05/30/18 23:16 97 28 98 Facial 30 Intake and Output 05/30/18 05/31/18 19:00 07:00 Intake Total 240 ml Output Total 450 ml Balance -210 ml Intake Oral 240 ml Output Urine Total 450 ml Height (Feet): 4 Height (Inches): 10.00 Weight (Pounds): 169 Objective PHYSICAL EXAMINATION: GENERAL: Pleasant [place] woman seen in the ICU. HEENT: Normocephalic and atraumatic. Sclerae anicteric. Oropharynx clear. NECK: Supple. CHEST: Clear to auscultation. CARDIOVASCULAR: Revealed regular rate. ABDOMEN: Soft. Good bowel sounds. There is no organomegaly or tenderness. Anterior chest and abdomen scars were as expected. EXTREMITIES: Revealed no edema. Armando Bowen MD May 31, 2018 22:04
--- NOTE | 2018-05-31 23:17 | Cardiology Progress Note ---
Assessment/Plan Assessment/Plan 1. Paroxysmal atrial fibrillation, in SR now, due to CHADS-VASC score of 5, continue enoxaparin and metoprolol. 2. Hx of CAD, s/p CABG, ASA , atorvastatin and metoprolol. No wall motion abnormalities on Echo. LVEF ~55%. 3. Sinus tachycardia, resolved, due to hypovolemia. 4. DKA, resolved. 5. DM, non-compliant with medications. 6. HTN, stage II,continue amlodipine and metoprolol, will add hydralazine. 7. Severe pulmonary HTN. Subjective Subjective Sinus rhythm at rate of 79.. On facial oxygen, FiO2 40%. Objective Last 24 Hour Vital Signs Date Time Temp Pulse Resp B/P (MAP) Pulse Ox O2 Delivery O2 Flow Rate FiO2 05/31/18 22:36 79 24 98 Facial 40 05/31/18 22:07 97.3 120 18 168/98 (121) 94 05/31/18 21:30 120 168/98 05/31/18 21:16 93 27 98 Facial 50 05/31/18 21:00 Nasal Cannula 4.0 05/31/18 20:00 97.3 120 18 168/98 (121) 96 05/31/18 20:00 2.0 30 05/31/18 20:00 101 05/31/18 19:01 106 30 96 Facial 50 05/31/18 19:00 Bi-pap 50 05/31/18 19:00 96 Bi-pap 50 05/31/18 19:00 94 30 Bi-pap 40 05/31/18 17:14 70 20 100 Bi-pap 40 05/31/18 17:06 90 26 90 Nasal Cannula 3.0 32 05/31/18 17:00 70 18 100 Facial 40 05/31/18 16:00 2.0 30 05/31/18 16:00 98.8 77 22 146/75 (98) 96 05/31/18 15:56 78 05/31/18 12:00 96.9 83 25 156/74 (101) 96 05/31/18 12:00 2.0 30 05/31/18 11:53 68 05/31/18 10:08 78 142/72 05/31/18 10:08 78 142/72 05/31/18 08:43 78 16 99 Facial 40 05/31/18 08:36 79 05/31/18 08:04 Nasal Cannula 4.0 05/31/18 08:02 2.0 30 05/31/18 07:51 97.5 92 22 142/72 (95) 96 05/31/18 06:58 81 14 Bi-pap 40 05/31/18 06:58 100 Bi-pap 100 05/31/18 06:58 80 14 100 Facial 40 05/31/18 06:58 Bi-pap 40 05/31/18 05:20 77 18 99 Facial 30 05/31/18 04:00 98.4 77 20 158/73 (101) 100 05/31/18 04:00 2.0 30 05/31/18 04:00 70 05/31/18 02:30 78 23 98 Facial 30 05/31/18 00:34 82 22 100 Facial 30 05/31/18 00:00 98.6 79 20 163/84 (110) 100 05/31/18 00:00 2.0 30 05/31/18 00:00 79 Intake and Output 05/30/18 05/31/18 19:00 07:00 Intake Total 240 ml Output Total 450 ml Balance -210 ml Intake Oral 240 ml Output Urine Total 450 ml 2D Echo: EF55%,Mild LVH,Mod MR,Mild AR,RVSP 67 mmHg (severe PHT),Restrictive LV phy Objective HEENT: Normocephalic, atraumatic, Pupils equally reactive to light and accommodation, EOMI. NECK: No JVD, no carotid bruit. CARDIOVASCULAR: Regular rate and rhythm. No murmurs, gallops or rubs. LUNGS: Clear to auscultation bilaterally. No crackles or Rhonchi. ABDOMEN: Soft and nontender. No organomegaly, + BS. EXTREMITIES: No cyanosis, clubbing or edema. Miller Mckeon MD May 31, 2018 23:17
[2018-06-01] VITALS (7 sets, daily range): BP systolic 131–168; BP diastolic 66–89
[2018-06-01] MEDS: LORazepam 1mg tab ORAL PRN ×3 (01:41→20:03)
[2018-06-01] MEDS: Piperacillin/Tazobactam 3.375 GM in NS 110 ML IV SCH ×4 (05:42→21:47)
[2018-06-01] MEDS: NovoLOG Insulin Flexpen SUBQ SCH ×4 (06:10→20:05)
--- NOTE | 2018-06-01 07:08 | NUR ---
NURSE NOTES: pt awake alert, no distress. no sob. on bipap. call light within reach. will monitor. no c/o pain
[2018-06-01] MEDS: Albuterol/Ipratropium 3ml neb HHN PRN (08:13)
--- NOTE | 2018-06-01 08:28 | General Progress Note ---
Assessment/Plan Assessment/Plan Impression Diabetic ketoacidosis Anemia Transaminitis of unclear etiology Severe protein calorie malnutrition Evidence of pancreatitis, better Acute renal failure, improved Hyperglycemia Diabetes Hyponatremia Metabolic acidosis Hypercholesterolemia fever oral ulcers afib with RVR leukopenia pancreatitis dc planning on antibiotics on lovenox awaiting snf placement monitor for change care noted; needs rehab impression, plan, and exam edited and reviewed in detail care discussed with RN Subjective Allergies: Coded Allergies: SHELLFISH DERIVED (Verified Allergy, Unknown, swelling and itchiness, 05/14) Subjective care noted weak comfortable d/w family Objective Last 24 Hour Vital Signs Date Time Temp Pulse Resp B/P (MAP) Pulse Ox O2 Delivery O2 Flow Rate FiO2 06/01/18 08:13 103 25 94 Venturi Mask 12.0 50 06/01/18 08:00 101.6 93 19 168/89 (115) 96 06/01/18 07:26 97 Bi-pap 40 06/01/18 07:26 Bi-pap 40 06/01/18 07:25 95 27 Bi-pap 40 06/01/18 07:23 94 27 96 Facial 40 06/01/18 07:02 Nasal Cannula 4.0 06/01/18 05:20 85 24 98 Facial 40 06/01/18 04:00 2.0 30 06/01/18 04:00 87 06/01/18 04:00 97.2 85 19 154/78 (103) 96 06/01/18 03:19 77 21 99 Facial 40 06/01/18 00:00 98.0 82 20 144/74 (97) 99 06/01/18 00:00 72 05/31/18 22:36 79 24 98 Facial 40 05/31/18 22:07 97.3 120 18 168/98 (121) 94 05/31/18 21:30 120 168/98 05/31/18 21:16 93 27 98 Facial 50 05/31/18 21:00 Nasal Cannula 4.0 05/31/18 20:00 97.3 120 18 168/98 (121) 96 05/31/18 20:00 2.0 30 05/31/18 20:00 101 05/31/18 19:01 106 30 96 Facial 50 05/31/18 19:00 Bi-pap 50 05/31/18 19:00 96 Bi-pap 50 2/11/19 19:00 94 30 Bi-pap 40 05/31/18 17:14 70 20 100 Bi-pap 40 05/31/18 17:06 90 26 90 Nasal Cannula 3.0 32 05/31/18 17:00 70 18 100 Facial 40 05/31/18 16:00 2.0 30 05/31/18 16:00 98.8 77 22 146/75 (98) 96 05/31/18 15:56 78 05/31/18 12:00 96.9 83 25 156/74 (101) 96 05/31/18 12:00 2.0 30 05/31/18 11:53 68 05/31/18 10:08 78 142/72 05/31/18 10:08 78 142/72 05/31/18 08:43 78 16 99 Facial 40 05/31/18 08:36 79 Intake and Output 05/31/18 06/01/18 19:00 07:00 Intake Total 340 ml 110 ml Output Total 300 ml 400 ml Balance 40 ml -290 ml Intake Oral 340 ml IV Total 110 ml Output Urine Total 300 ml 400 ml Height (Feet): 4 Height (Inches): 10.00 Weight (Pounds): 168 Objective WDWN NAD clear breath sounds bilaterally without rhonchi or wheeze S1S2 RRR without MRG NABS nontender no HSM no CCE nonfocal remains weak alert Jesus Lew MD Jun 01, 2018 08:28
[2018-06-01] MEDS: Gentamicin 0.3% Opth Soln 5ml BOTH EYES SCH ×4 (08:37→20:04)
[2018-06-01] MEDS: Metoprolol Tartrate 50mg tab ORAL SCH ×2 (08:37→20:03)
[2018-06-01] MEDS: Aspirin Baby 81mg ORAL SCH (08:37)
[2018-06-01] MEDS: Enoxaparin 80mg Inj SUBQ SCH ×2 (08:38→20:06)
--- NOTE | 2018-06-01 09:20 | NUR ---
NURSE NOTES: Relayed to Dr Louann barron pt removes venturi mask and desats to 80, 94 on venturi mask, okayed chief science officer restraints and ordered cxr, stephanie (family contact) aware of above pt refused to eat at this time
--- NOTE | 2018-06-01 09:39 | NUR ---
NURSE NOTES: pt still refused to eat breakfast , pt 96%o2sat on 3lnc
[2018-06-01 10:01] LABS: HEMATOCRIT 28.8 % (37.0-47.0); HEMOGLOBIN 8.9 G/DL (12.0-16.0); MEAN CORPUSCULAR VOLUME 88 FL (80-99); PLATELET COUNT 473 K/UL (150-450); RED BLOOD COUNT 3.27 M/UL (4.20-5.40); WHITE BLOOD COUNT 16.3 K/UL (4.8-10.8)
[2018-06-01 10:17] LABS: ALANINE AMINOTRANSFERASE 62 U/L (12-78); ALBUMIN 2.3 G/DL (3.4-5.0); ALBUMIN/GLOBULIN RATIO 0.4 (1.0-2.7); ALKALINE PHOSPHATASE 558 U/L (46-116); ANION GAP 17 mmol/L (5-15); ASPARTATE AMINO TRANSFERASE 47 U/L (15-37); BILIRUBIN,TOTAL 1.3 MG/DL (0.2-1.0); BLOOD UREA NITROGEN 16 mg/dL (7-18); CALCIUM 8.4 MG/DL (8.5-10.1); CARBON DIOXIDE 17 MMOL/L (21-32); CHLORIDE 106 MMOL/L (98-107); CREATININE 1.5 MG/DL (0.55-1.30); POTASSIUM 4.6 MMOL/L (3.5-5.1); SODIUM 140 MMOL/L (136-145)
[2018-06-01 10:20] LABS: BILIRUBIN,DIRECT 0.6 MG/DL (0.0-0.3)
--- NOTE | 2018-06-01 10:53 | NUR ---
RD ASSESSMENT & RECOMMENDATIONS SEE CARE ACTIVITY FOR COMPLETE ASSESSMENT DAILY ESTIMATED NEEDS: Needs based on DM, cardiac, pulmonary/ 54kg abw 25-30 kcals/kg 3228-0644 total kcals 1-1.5 g protein/kg 54-81 g total protein 25-30 mL/kg 8392-8856 total fluid mLs NUTRITION DIAGNOSIS: 1) Altered nutrition related lab values R/T diabetes, clinical condition as evidenced by A1C 11.4, increased from 8.1 in August 2017, DKA w/ adm MK=308-> 139, 181 improved, elev BNP (2846), elev creat (1.5), elev LFTs, trending back down, elev lipase (>2000 -> 602 trend down). CURRENT DIET: CCHO MED, RENAL/ puree w/ HTL PO DIET RECOMMENDATIONS: CCHO LOW, LOW NA, LOW FAT/ texture per SOFTWARE CONFIGURATION ENGINEER ADDITIONAL RECOMMENDATIONS: 1) Standing wt as able for accurate CBW 2) Monitor PO tolerance and PO acceptance- pancreatitis dx 3) A1C 11.4, consider long acting insulin for improved glycemic control 4) Monitor liver fxn and lipase 5) Hugo 1pkt BID for skin integrity 6) SOFTWARE CONFIGURATION ENGINEER EVAL FOR APPROPRIATE TEXTURE AND IMPROVED PO INTAKE 7) Add GLUCERNA 1 tetra tiffany BID in b/w meals w/ poor po intake
--- NOTE | 2018-06-01 11:05 | Infectious Diseases Prog Note ---
Assessment/Plan Assessment/Plan antibiotics : zosyn A 1. pancreatitis improving 2. herpes of lip s/p rx 3. diabetic ketoacidosis 4. respiratory failure 5. hypertension 6. ? pneumonia 7. increased leucocytosis P 1. start iv vancomycin 2. continue zosyn 3. sputum culture 4. will follow up cultures Subjective ROS Limited/Unobtainable: Yes Allergies: Coded Allergies: SHELLFISH DERIVED (Verified Allergy, Unknown, swelling and itchiness, 05/14) Objective Vital Signs Last 24 Hour Vital Signs Date Time Temp Pulse Resp B/P (MAP) Pulse Ox O2 Delivery O2 Flow Rate FiO2 06/01/18 10:59 72 20 97 Facial 40 06/01/18 09:57 85 19 131/85 (100) 100 06/01/18 08:37 103 168/89 06/01/18 08:37 103 168/89 06/01/18 08:13 103 25 94 Venturi Mask 12.0 50 06/01/18 08:00 98.6 93 19 168/89 (115) 96 06/01/18 07:57 89 06/01/18 07:26 97 Bi-pap 40 06/01/18 07:26 Bi-pap 40 06/01/18 07:25 95 27 Bi-pap 40 06/01/18 07:23 94 27 96 Facial 40 06/01/18 07:02 Nasal Cannula 4.0 06/01/18 05:20 85 24 98 Facial 40 06/01/18 04:00 2.0 30 06/01/18 04:00 87 06/01/18 04:00 97.2 85 19 154/78 (103) 96 06/01/18 03:19 77 21 99 Facial 40 06/01/18 00:00 98.0 82 20 144/74 (97) 99 06/01/18 00:00 72 05/31/18 22:36 79 24 98 Facial 40 05/31/18 22:07 97.3 120 18 168/98 (121) 94 05/31/18 21:30 120 168/98 05/31/18 21:16 93 27 98 Facial 50 05/31/18 21:00 Nasal Cannula 4.0 05/31/18 20:00 97.3 120 18 168/98 (121) 96 05/31/18 20:00 2.0 30 05/31/18 20:00 101 05/31/18 19:01 106 30 96 Facial 50 05/31/18 19:00 Bi-pap 50 05/31/18 19:00 96 Bi-pap 50 05/31/18 19:00 94 30 Bi-pap 40 05/31/18 17:14 70 20 100 Bi-pap 40 05/31/18 17:06 90 26 90 Nasal Cannula 3.0 32 05/31/18 17:00 70 18 100 Facial 40 05/31/18 16:00 2.0 30 05/31/18 16:00 98.8 77 22 146/75 (98) 96 05/31/18 15:56 78 05/31/18 12:00 96.9 83 25 156/74 (101) 96 05/31/18 12:00 2.0 30 05/31/18 11:53 68 Height (Feet): 4 Height (Inches): 10.00 Weight (Pounds): 168 HEENT: other - on bipap Respiratory/Chest: lungs clear Cardiovascular: normal rate, regular rhythm, no gallop/murmur Abdomen: soft, non tender Extremities: other - + edema Laboratory Tests Test 06/01/18 09:20 White Blood Count 16.3 K/UL (4.8-10.8) H Red Blood Count 3.27 M/UL (4.20-5.40) L Hemoglobin 8.9 G/DL (12.0-16.0) L Hematocrit 28.8 % (37.0-47.0) L Mean Corpuscular Volume 88 FL (80-99) Mean Corpuscular Hemoglobin 27.2 PG (27.0-31.0) Mean Corpuscular Hemoglobin Concent 30.8 G/DL (32.0-36.0) L Red Cell Distribution Width 22.0 % (11.6-14.8) H Platelet Count 473 K/UL (150-450) H Mean Platelet Volume 5.7 FL (6.5-10.1) L Neutrophils (%) (Auto) % (45.0-75.0) Lymphocytes (%) (Auto) % (20.0-45.0) Monocytes (%) (Auto) % (1.0-10.0) Eosinophils (%) (Auto) % (0.0-3.0) Basophils (%) (Auto) % (0.0-2.0) Neutrophils % (Manual) Pending Lymphocytes % (Manual) Pending Platelet Estimate Pending Platelet Morphology Pending Sodium Level 140 MMOL/L (136-145) Potassium Level 4.6 MMOL/L (3.5-5.1) Chloride Level 106 MMOL/L (98-107) Carbon Dioxide Level 17 MMOL/L (21-32) L Anion Gap 17 mmol/L (5-15) H Blood Urea Nitrogen 16 mg/dL (7-18) Creatinine 1.5 MG/DL (0.55-1.30) H Estimat Glomerular Filtration Rate 34.4 mL/min (>60) Glucose Level 199 MG/DL (74-106) H Calcium Level 8.4 MG/DL (8.5-10.1) L Total Bilirubin 1.3 MG/DL (0.2-1.0) H Direct Bilirubin 0.6 MG/DL (0.0-0.3) H Aspartate Amino Transf (AST/SGOT) 47 U/L (15-37) H Alanine Aminotransferase (ALT/SGPT) 62 U/L (12-78) Alkaline Phosphatase 558 U/L (46-116) H Total Protein 7.5 G/DL (6.4-8.2) Albumin 2.3 G/DL (3.4-5.0) L Globulin 5.2 g/dL Albumin/Globulin Ratio 0.4 (1.0-2.7) L Current Medications Medications (Trade) Dose Ordered Sig/Ellen Route PRN Reason Start Time Stop Time Status Last Admin Dose Admin Acetaminophen (Tylenol) 650 mg Q4H PRN ORAL Mild Pain/Temp > 100.5 05/17/18 20:45 06/16/18 20:44 05/29/18 02:12 Al Hydroxide/Mg Hydroxide (Mylanta) 30 ml Q6H PRN ORAL Abdominal cramps 05/15/18 20:15 06/12/18 08:14 Albuterol/ Ipratropium (Albuterol/ Ipratropium) 3 ml Q4H PRN HHN Shortness of Breath 05/28/18 20:00 06/02/18 19:59 06/01/18 08:13 Amlodipine Besylate (Norvasc) 5 mg BID ORAL 05/29/18 09:00 06/28/18 08:59 06/01/18 08:37 Aspirin (ASA) 81 mg DAILY ORAL 05/25/18 09:00 06/24/18 08:59 06/01/18 08:37 Chlorhexidine Gluconate (Leora-Hex 2%) 1 applic DAILY@2000 TOPIC 05/25/18 20:00 06/24/18 19:59 05/31/18 21:38 Dextrose (Dextrose 50%) 25 ml Q30M PRN IV Hypoglycemia 05/15/18 19:15 06/13/18 10:14 Dextrose (Dextrose 50%) 50 ml Q30M PRN IV Hypoglycemia 05/15/18 19:15 06/13/18 10:14 Enoxaparin Sodium (Lovenox) 80 mg Q12HR SUBQ 05/26/18 21:00 06/25/18 20:59 06/01/18 08:38 Gentamicin Sulfate (Garamycin 0.3% Opt Sol) 1 drop QID BOTH EYES 05/25/18 22:00 06/01/18 21:59 06/01/18 08:37 Insulin Aspart (NovoLOG) BEFORE MEALS AND HS SUBQ 05/15/18 21:00 06/13/18 11:29 06/01/18 06:10 Lidocaine HCl (Xylocaine 1% 30ml) 30 ml ONCE PRN INJ picc line placement 05/31/18 08:30 06/01/18 23:59 Lorazepam (Ativan) 1 mg Q3H PRN ORAL For Anxiety 05/28/18 20:30 06/04/18 20:29 06/01/18 08:47 Magnesium Hydroxide (Mom) 30 ml DAILYPRN PRN ORAL Constipation 05/15/18 19:00 06/14/18 18:59 05/27/18 05:57 Metoprolol Tartrate (Lopressor) 5 mg Q2H PRN IVP For High Blood Pressure 05/24/18 17:00 06/23/18 16:59 05/29/18 00:38 Metoprolol Tartrate (Lopressor) 50 mg Q12HR ORAL 05/27/18 21:00 06/26/18 20:59 06/01/18 08:37 Pantoprazole (Protonix) 40 mg ACBREAKFAST ORAL 05/27/18 06:30 06/26/18 06:29 06/01/18 06:09 Piperacillin Sod/ Tazobactam Sod 3.375 gm/Sodium Chloride 110 ml @ 27.5 mls/hr EVERY 8 HOURS IV 05/29/18 11:00 06/05/18 10:59 06/01/18 05:42 Khadra Melendez MD Jun 01, 2018 11:05
[2018-06-01] MEDS ORDERED: Haloperidol 5mg/ml Inj IM PRN ×2 (11:45→13:35)
--- NOTE | 2018-06-01 11:56 | NUR ---
NURSE NOTES: pt noted with short of breath, using accessory muscle RR 30's, pt lethargic O2 sat NC 85-88% notified Dr Coombs, new order received.
[2018-06-01] MEDS ORDERED: Sodium Bicarbonate 50ml Carp IVP SCH (12:30)
--- NOTE | 2018-06-01 12:37 | NUR ---
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 98.6 HR 103 RR 25 B/P 168/89 VM 45% WBC 16.3 CR 1.5 AST 47 ALK PHOS 558 PH 7.414 PCO2 25.0 PO2 50.1 HCO3 15.6 O2 SAT 83.4 BE-7.6 IS; VANCO IV ZOSYN IV LOVENOX SUBC TELE STATUS
--- NOTE | 2018-06-01 12:38 | Consultation ---
History of Present Illness General Chief Complaint: Abdominal Pain Present Illness HPI 72-year-old lady with history of diabetes, hypertension, and hypercholesterolemia, who comes in with diabetic ketoacidosis. the pt is agitated and pw waxing and waning of consciousness. the pt is unable to provide any hx. the pt is disorganized. Allergies: Coded Allergies: SHELLFISH DERIVED (Verified Allergy, Unknown, swelling and itchiness, 05/14) Medication History Scheduled Aspirin* (Aspir 81*), 81 MG ORAL DAILY, (Reported) Atorvastatin Calcium* (Lipitor*), 80 MG ORAL BEDTIME, (Reported) Carvedilol* (Carvedilol*), 6.25 MG ORAL EVERY 12 HOURS, (Reported) Furosemide* (Lasix*), 20 MG ORAL DAILY, (Reported) Insulin Glargine (Lantus), 20 SUBQ BEDTIME, (Reported) Lisinopril* (Lisinopril*), 20 MG ORAL DAILY, (Reported) Multivitamin/Iron/Folic Acid (Centrum Adults Tablet), 1 EACH PO DAILY, (Reported ) Miscellaneous Medications Linagliptin/Metformin Hcl (Jentadueto 2.5 Mg-1000 Mg Tab), 1 EACH PO, (Reported) Patient History Limited by: medical condition History Provided By: Medical Record, PMD Healthcare decision maker self Resuscitation status Full Code Advanced Directive on File No Past Medical/Surgical History Past Medical/Surgical History: (1) Pneumonia (2) Shortness of breath (3) HTN (hypertension) (4) Hyperglycemia (5) Hyperkalemia (6) Elevated brain natriuretic peptide (BNP) level (7) Gout (8) DKA (diabetic ketoacidosis) (9) Pancreatitis (10) Renal failure (11) Sepsis (12) UTI (urinary tract infection) (13) Diabetes Review of Systems Psychiatric: Reports: prior hx, anxiety, depressed feelings, emotional problems , hallucinations Physical Exam General Appearance: no apparent distress, lethargic, confused, agitated Last 24 Hour Vital Signs Date Time Temp Pulse Resp B/P (MAP) Pulse Ox O2 Delivery O2 Flow Rate FiO2 06/01/18 10:59 72 20 97 Facial 40 06/01/18 09:57 85 19 131/85 (100) 100 06/01/18 08:37 103 168/89 06/01/18 08:37 103 168/89 06/01/18 08:13 103 25 94 Venturi Mask 12.0 50 06/01/18 08:00 98.6 93 19 168/89 (115) 96 06/01/18 07:57 89 06/01/18 07:26 97 Bi-pap 40 06/01/18 07:26 Bi-pap 40 06/01/18 07:25 95 27 Bi-pap 40 06/01/18 07:23 94 27 96 Facial 40 06/01/18 07:02 Nasal Cannula 4.0 06/01/18 05:20 85 24 98 Facial 40 06/01/18 04:00 2.0 30 06/01/18 04:00 87 06/01/18 04:00 97.2 85 19 154/78 (103) 96 06/01/18 03:19 77 21 99 Facial 40 06/01/18 00:00 98.0 82 20 144/74 (97) 99 06/01/18 00:00 72 05/31/18 22:36 79 24 98 Facial 40 05/31/18 22:07 97.3 120 18 168/98 (121) 94 05/31/18 21:30 120 168/98 05/31/18 21:16 93 27 98 Facial 50 05/31/18 21:00 Nasal Cannula 4.0 05/31/18 20:00 97.3 120 18 168/98 (121) 96 05/31/18 20:00 2.0 30 05/31/18 20:00 101 05/31/18 19:01 106 30 96 Facial 50 05/31/18 19:00 Bi-pap 50 05/31/18 19:00 96 Bi-pap 50 05/31/18 19:00 94 30 Bi-pap 40 05/31/18 17:14 70 20 100 Bi-pap 40 05/31/18 17:06 90 26 90 Nasal Cannula 3.0 32 05/31/18 17:00 70 18 100 Facial 40 05/31/18 16:00 2.0 30 05/31/18 16:00 98.8 77 22 146/75 (98) 96 05/31/18 15:56 78 Intake and Output 05/31/18 06/01/18 18:59 06:59 Intake Total 340 ml 110 ml Output Total 300 ml 400 ml Balance 40 ml -290 ml Intake Oral 340 ml IV Total 110 ml Output Urine Total 300 ml 400 ml Laboratory Tests Test 06/01/18 09:20 06/01/18 11:52 White Blood Count 16.3 K/UL (4.8-10.8) H Red Blood Count 3.27 M/UL (4.20-5.40) L Hemoglobin 8.9 G/DL (12.0-16.0) L Hematocrit 28.8 % (37.0-47.0) L Mean Corpuscular Volume 88 FL (80-99) Mean Corpuscular Hemoglobin 27.2 PG (27.0-31.0) Mean Corpuscular Hemoglobin Concent 30.8 G/DL (32.0-36.0) L Red Cell Distribution Width 22.0 % (11.6-14.8) H Platelet Count 473 K/UL (150-450) H Mean Platelet Volume 5.7 FL (6.5-10.1) L Neutrophils (%) (Auto) % (45.0-75.0) Lymphocytes (%) (Auto) % (20.0-45.0) Monocytes (%) (Auto) % (1.0-10.0) Eosinophils (%) (Auto) % (0.0-3.0) Basophils (%) (Auto) % (0.0-2.0) Differential Total Cells Counted 100 Neutrophils % (Manual) 92 % (45-75) H Lymphocytes % (Manual) 5 % (20-45) L Monocytes % (Manual) 3 % (1-10) Eosinophils % (Manual) 0 % (0-3) Basophils % (Manual) 0 % (0-2) Band Neutrophils 0 % (0-8) Nucleated Red Blood Cells 1 /100 WBC Platelet Estimate Increased H Platelet Morphology Normal Polychromasia 1+ Hypochromasia 1+ Anisocytosis 2+ Sodium Level 140 MMOL/L (136-145) Potassium Level 4.6 MMOL/L (3.5-5.1) Chloride Level 106 MMOL/L (98-107) Carbon Dioxide Level 17 MMOL/L (21-32) L Anion Gap 17 mmol/L (5-15) H Blood Urea Nitrogen 16 mg/dL (7-18) Creatinine 1.5 MG/DL (0.55-1.30) H Estimat Glomerular Filtration Rate 34.4 mL/min (>60) Glucose Level 199 MG/DL (74-106) H Calcium Level 8.4 MG/DL (8.5-10.1) L Total Bilirubin 1.3 MG/DL (0.2-1.0) H Direct Bilirubin 0.6 MG/DL (0.0-0.3) H Aspartate Amino Transf (AST/SGOT) 47 U/L (15-37) H Alanine Aminotransferase (ALT/SGPT) 62 U/L (12-78) Alkaline Phosphatase 558 U/L (46-116) H Total Protein 7.5 G/DL (6.4-8.2) Albumin 2.3 G/DL (3.4-5.0) L Globulin 5.2 g/dL Albumin/Globulin Ratio 0.4 (1.0-2.7) L Arterial Blood pH 7.414 (7.350-7.450) Arterial Blood Partial Pressure CO2 25.0 mmHg (35.0-45.0) L Arterial Blood Partial Pressure O2 50.1 mmHg (75.0-100.0) L Arterial Blood HCO3 15.6 mmol/L (22.0-26.0) *L Arterial Blood Oxygen Saturation 83.4 % (95-100) *L Arterial Blood Base Excess -7.6 (-2-2) L Marlon Test Positive Height (Feet): 4 Height (Inches): 10.00 Weight (Pounds): 168 Medications Current Medications Medications (Trade) Dose Ordered Sig/Ellen Route PRN Reason Start Time Stop Time Status Last Admin Dose Admin Acetaminophen (Tylenol) 650 mg Q4H PRN ORAL Mild Pain/Temp > 100.5 05/17/18 20:45 06/16/18 20:44 05/29/18 02:12 Al Hydroxide/Mg Hydroxide (Mylanta) 30 ml Q6H PRN ORAL Abdominal cramps 05/15/18 20:15 06/12/18 08:14 Albuterol/ Ipratropium (Albuterol/ Ipratropium) 3 ml Q4H PRN HHN Shortness of Breath 05/28/18 20:00 06/02/18 19:59 06/01/18 08:13 Amlodipine Besylate (Norvasc) 5 mg BID ORAL 05/29/18 09:00 06/28/18 08:59 06/01/18 08:37 Aspirin (ASA) 81 mg DAILY ORAL 05/25/18 09:00 06/24/18 08:59 06/01/18 08:37 Chlorhexidine Gluconate (Leora-Hex 2%) 1 applic DAILY@2000 TOPIC 05/25/18 20:00 06/24/18 19:59 05/31/18 21:38 Dextrose (Dextrose 50%) 25 ml Q30M PRN IV Hypoglycemia 05/15/18 19:15 06/13/18 10:14 Dextrose (Dextrose 50%) 50 ml Q30M PRN IV Hypoglycemia 05/15/18 19:15 06/13/18 10:14 Enoxaparin Sodium (Lovenox) 80 mg Q12HR SUBQ 05/26/18 21:00 06/25/18 20:59 06/01/18 08:38 Gentamicin Sulfate (Garamycin 0.3% Opt Sol) 1 drop QID BOTH EYES 05/25/18 22:00 06/01/18 21:59 06/01/18 08:37 Haloperidol Lactate (Haldol) 5 mg Q6H PRN IM Agitation 06/01/18 11:45 07/01/18 11:44 Insulin Aspart (NovoLOG) BEFORE MEALS AND HS SUBQ 05/15/18 21:00 06/13/18 11:29 06/01/18 11:26 Lidocaine HCl (Xylocaine 1% 30ml) 30 ml ONCE PRN INJ picc line placement 05/31/18 08:30 06/01/18 23:59 Lorazepam (Ativan) 1 mg Q3H PRN ORAL For Anxiety 05/28/18 20:30 06/04/18 20:29 06/01/18 08:47 Magnesium Hydroxide (Mom) 30 ml DAILYPRN PRN ORAL Constipation 05/15/18 19:00 06/14/18 18:59 05/27/18 05:57 Metoprolol Tartrate (Lopressor) 5 mg Q2H PRN IVP For High Blood Pressure 05/24/18 17:00 06/23/18 16:59 05/29/18 00:38 Metoprolol Tartrate (Lopressor) 50 mg Q12HR ORAL 05/27/18 21:00 06/26/18 20:59 06/01/18 08:37 Olanzapine (ZyPREXA) 2.5 mg BEDTIME ORAL 06/01/18 21:00 07/01/18 20:59 Pantoprazole (Protonix) 40 mg ACBREAKFAST ORAL 05/27/18 06:30 06/26/18 06:29 06/01/18 06:09 Piperacillin Sod/ Tazobactam Sod 3.375 gm/Sodium Chloride 110 ml @ 27.5 mls/hr EVERY 8 HOURS IV 05/29/18 11:00 06/05/18 10:59 06/01/18 05:42 Sodium Bicarbonate (Sodium Bicarbonate) 100 ml ONCE IVP 06/01/18 12:30 06/01/18 15:00 Vancomycin HCl (Vanco rx to dose) 1 ea DAILY PRN MISC Per rx protocol 06/01/18 11:15 07/01/18 11:14 Vancomycin HCl 1 gm/Dextrose 275 ml @ 183.708 mls/hr ONCE IVPB 06/01/18 13:00 06/01/18 15:00 Assessment/Plan Problem List: (1) Acute metabolic encephalopathy ICD Codes: G93.41 - Metabolic encephalopathy SNOMED: 74295308, [id number] Assessment/Plan Zyprexa 2.5mg po qhs Haldol prn limit using benzos may increase risk of aspiration restraints. Lynne Crane MD Jun 01, 2018 12:38
[2018-06-01] MEDS ORDERED: LORazepam 1mg tab ORAL PRN (12:45)
--- NOTE | 2018-06-01 12:58 | NUR ---
NURSE NOTES: Received patient from WAYNE Frederick. Patient VS Stable at this time. Patient BP 137/69, HR 88, FiO2 98%, and temp 100.1. Will administer tylenol and antibiotics that are ordered at this time. Patient is lethargic at this time. Patient on BiPAP 15/5 with FiO2 30%. Patient is CCHO medium diet but is refusing food at this time and patient is unable to eat on BiPAP. It was reported that this patient has been eating while on NC and then switching back to BiPAP. Patient ABG was done with result of 7.414, pCO2 25, pO2 50.1, O2 sat 83.4, and HCOs 15.6. Patient was transferred from [facility] to [facility] due to respiratory distress and poor ABG result. Patient has sacral excoriation at this time. Patient has a purewick that is patent and replaced at this time. Patient had a head CT with pending results at this time. Will follow up. Patient bed in low position with bed alarm on and call light in reach at this time.
--- NOTE | 2018-06-01 12:58 | NUR ---
restraints discontinued,calm ,cooperative not ,not pulling at times itchy
[2018-06-01] MEDS ORDERED: Vancomycin 1gm/D5W 275ml IVPB SCH ×2 (13:00)
--- NOTE | 2018-06-01 13:08 | NUR ---
HAND-OFF: Report given to GUI BLACK.
--- NOTE | 2018-06-01 13:17 | GI Progress Note ---
Assessment/Plan Problems: (1) Pancreatitis ICD Codes: K85.90 - Acute pancreatitis without necrosis or infection, unspecified SNOMED: 37413682 Qualifiers: Qualified Codes: K85.90 - Acute pancreatitis without necrosis or infection, unspecified (2) DKA (diabetic ketoacidosis) ICD Codes: E13.10 - Other specified diabetes mellitus with ketoacidosis without coma SNOMED: 342516515, [id number] Qualifiers: Qualified Codes: E10.10 - Type 1 diabetes mellitus with ketoacidosis without coma (3) Diabetes ICD Codes: E11.9 - Type 2 diabetes mellitus without complications SNOMED: 46873630 Status Narrative Discussed with Dr. Benito. Assessment/Plan Status post EUS summary of findings 1. Pancreatitis, most probably acute, without any pancreatic duct dilatation or mass. 2. No evidence of any common bile duct dilatation was seen with common bile duct stone. 3. Gallbladder wall thickening, nonspecific. 4. 1 cm kristina hepatis lymph node, nonspecific. Elevated lipase levels, downtrending transfered to [facility] RECOMMENDATIONS: Advance to soft renal diet No need for ERCP Pain management Trend lipase Zofran as needed Follow-up labs fu cxr The patient was seen and examined at bedside and all new and available data was reviewed in the patients chart. I agree with the above findings, impression and plan. (Patient seen earlier today. Signature stamp does not reflect patient encounter time.). - Neeraj Benito MD Subjective Subjective denies any abdominal pain Tolerating diet new onset of SOB Objective Last 24 Hour Vital Signs Date Time Temp Pulse Resp B/P (MAP) Pulse Ox O2 Delivery O2 Flow Rate FiO2 06/01/18 12:00 98.6 87 19 151/78 (102) 96 06/01/18 12:00 2.0 30 06/01/18 11:54 86 06/01/18 10:59 72 20 97 Facial 40 06/01/18 09:57 85 19 131/85 (100) 100 06/01/18 08:37 103 168/89 06/01/18 08:37 103 168/89 06/01/18 08:13 103 25 94 Venturi Mask 12.0 50 06/01/18 08:00 2.0 30 06/01/18 08:00 98.6 93 19 168/89 (115) 96 06/01/18 07:57 89 06/01/18 07:26 97 Bi-pap 40 06/01/18 07:26 Bi-pap 40 06/01/18 07:25 95 27 Bi-pap 40 06/01/18 07:23 94 27 96 Facial 40 06/01/18 07:02 Nasal Cannula 4.0 06/01/18 05:20 85 24 98 Facial 40 06/01/18 04:00 2.0 30 06/01/18 04:00 87 06/01/18 04:00 97.2 85 19 154/78 (103) 96 06/01/18 03:19 77 21 99 Facial 40 06/01/18 00:00 98.0 82 20 144/74 (97) 99 06/01/18 00:00 72 05/31/18 22:36 79 24 98 Facial 40 05/31/18 22:07 97.3 120 18 168/98 (121) 94 05/31/18 21:30 120 168/98 05/31/18 21:16 93 27 98 Facial 50 05/31/18 21:00 Nasal Cannula 4.0 05/31/18 20:00 97.3 120 18 168/98 (121) 96 05/31/18 20:00 2.0 30 05/31/18 20:00 101 05/31/18 19:01 106 30 96 Facial 50 05/31/18 19:00 Bi-pap 50 05/31/18 19:00 96 Bi-pap 50 05/31/18 19:00 94 30 Bi-pap 40 05/31/18 17:14 70 20 100 Bi-pap 40 05/31/18 17:06 90 26 90 Nasal Cannula 3.0 32 05/31/18 17:00 70 18 100 Facial 40 05/31/18 16:00 2.0 30 05/31/18 16:00 98.8 77 22 146/75 (98) 96 05/31/18 15:56 78 Intake and Output 05/31/18 06/01/18 19:00 07:00 Intake Total 340 ml 110 ml Output Total 300 ml 400 ml Balance 40 ml -290 ml Intake Oral 340 ml IV Total 110 ml Output Urine Total 300 ml 400 ml Laboratory Tests Test 06/01/18 09:20 06/01/18 11:52 White Blood Count 16.3 K/UL (4.8-10.8) H Red Blood Count 3.27 M/UL (4.20-5.40) L Hemoglobin 8.9 G/DL (12.0-16.0) L Hematocrit 28.8 % (37.0-47.0) L Mean Corpuscular Volume 88 FL (80-99) Mean Corpuscular Hemoglobin 27.2 PG (27.0-31.0) Mean Corpuscular Hemoglobin Concent 30.8 G/DL (32.0-36.0) L Red Cell Distribution Width 22.0 % (11.6-14.8) H Platelet Count 473 K/UL (150-450) H Mean Platelet Volume 5.7 FL (6.5-10.1) L Neutrophils (%) (Auto) % (45.0-75.0) Lymphocytes (%) (Auto) % (20.0-45.0) Monocytes (%) (Auto) % (1.0-10.0) Eosinophils (%) (Auto) % (0.0-3.0) Basophils (%) (Auto) % (0.0-2.0) Differential Total Cells Counted 100 Neutrophils % (Manual) 92 % (45-75) H Lymphocytes % (Manual) 5 % (20-45) L Monocytes % (Manual) 3 % (1-10) Eosinophils % (Manual) 0 % (0-3) Basophils % (Manual) 0 % (0-2) Band Neutrophils 0 % (0-8) Nucleated Red Blood Cells 1 /100 WBC Platelet Estimate Increased H Platelet Morphology Normal Polychromasia 1+ Hypochromasia 1+ Anisocytosis 2+ Sodium Level 140 MMOL/L (136-145) Potassium Level 4.6 MMOL/L (3.5-5.1) Chloride Level 106 MMOL/L (98-107) Carbon Dioxide Level 17 MMOL/L (21-32) L Anion Gap 17 mmol/L (5-15) H Blood Urea Nitrogen 16 mg/dL (7-18) Creatinine 1.5 MG/DL (0.55-1.30) H Estimat Glomerular Filtration Rate 34.4 mL/min (>60) Glucose Level 199 MG/DL (74-106) H Calcium Level 8.4 MG/DL (8.5-10.1) L Total Bilirubin 1.3 MG/DL (0.2-1.0) H Direct Bilirubin 0.6 MG/DL (0.0-0.3) H Aspartate Amino Transf (AST/SGOT) 47 U/L (15-37) H Alanine Aminotransferase (ALT/SGPT) 62 U/L (12-78) Alkaline Phosphatase 558 U/L (46-116) H Total Protein 7.5 G/DL (6.4-8.2) Albumin 2.3 G/DL (3.4-5.0) L Globulin 5.2 g/dL Albumin/Globulin Ratio 0.4 (1.0-2.7) L Arterial Blood pH 7.414 (7.350-7.450) Arterial Blood Partial Pressure CO2 25.0 mmHg (35.0-45.0) L Arterial Blood Partial Pressure O2 50.1 mmHg (75.0-100.0) L Arterial Blood HCO3 15.6 mmol/L (22.0-26.0) *L Arterial Blood Oxygen Saturation 83.4 % (95-100) *L Arterial Blood Base Excess -7.6 (-2-2) L Marlon Test Positive Height (Feet): 4 Height (Inches): 10.00 Weight (Pounds): 168 General Appearance: WD/WN, no apparent distress, alert Cardiovascular: normal rate Respiratory/Chest: normal breath sounds, no respiratory distress Abdominal Exam: normal bowel sounds, non tender, soft Extremities: normal range of motion, non-tender Ros Berry NP Jun 01, 2018 13:17
--- NOTE | 2018-06-01 13:18 | NUR ---
RADIOLOGY DEPT CHEST X-RAY DONE BEFORE TRANSFER TO [facility]PDYE
[2018-06-01] MEDS ORDERED: Albuterol/Ipratropium 3ml neb HHN PRN (13:34)
[2018-06-01] MEDS ORDERED: Milk of Magnesia 30ml Ud ORAL PRN (13:35)
--- NOTE | 2018-06-01 13:38 | NUR ---
NURSE NOTES: PT TRANSFERRED TO [address] [facility]. HELDER PICC DRESSING CHANGED FAMILY AWARE AND CURRENTLY AT BEDSIDE.
[2018-06-01] MEDS ORDERED: Vancomycin 1 GM in D5W 275 ML IVPB SCH (14:00)
[2018-06-01] MEDS ORDERED: Metoprolol 5mg/5ml Inj IVP PRN (15:00)
--- NOTE | 2018-06-01 15:40 | NUR ---
HAND-OFF: Report given to WAYNE Frederick. Patient running Vanco at this time. Patient has an order for Zosyn to be administered following vanco. Patient needs tylenol at this time for high temperture. Endorsed to follow up.
--- NOTE | 2018-06-01 16:04 | Diagnostic Imaging Report ---
Indication: Shortness of breath Technique: One view of the chest Comparison: 05/29/2018 Findings: The heart is enlarged. There is bilateral interstitial and airspace edema. There is evidence of bilateral pleural fluid. Findings are similar to the prior exam. Impression: Unchanged, over 3 days, findings as above.
--- NOTE | 2018-06-01 16:06 | Diagnostic Imaging Report ---
Indications: Altered level of consciousness Technique: Spiral acquisitions obtained through the brain. Angled axial and coronal 5 x 5 mm slices were reconstructed. Total dose length product 2188.93 mGycm. CTDI vol(s) 70.38,70.38 mGy. Dose reduction achieved using automated exposure control Comparison: 08/26/2017 Findings: There is some image degradation due to motion artifact, somewhat improved on repeat acquisition of the posterior fossa. Again demonstrated is age-related enlargement of the ventricles and extra axial CSF spaces. There is a small new hypodense focus with evidence of cytotoxic edema involving the right posterior high parietal cortex. 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 One of these is located posteriorly, not evident previously but does not appear acute. Questionable lacunar infarcts are also demonstrated in the midbrain, not evident previously if real. Encephalomalacia in the right cerebellar hemisphere is better appreciated on the prior exam, due to the motion on the current study. No acute intracranial hemorrhage. No mass effect nor midline shift. Visualized orbits and sinuses are unremarkable. Intact calvarium Impression: Somewhat limited exam, as described Findings suspicious for small subacute cortical infarct involving the right parietal lobe Multiple old infarcts as described Other chronic and age-related changes, as described Negative for acute intracranial bleed or mass effect Findings discussed by phone with Dr. Lew at the time of interpretation The CT scanner at [facility] is accredited by the [employer] and the scans are performed using protocols designed to limit radiation exposure to as low as reasonably achievable to attain images of sufficient resolution adequate for diagnostic evaluation.
--- NOTE | 2018-06-01 18:13 | General Progress Note ---
Assessment/Plan Assessment/Plan Assessment and Recs # Pancytopenia -- appears that initial hep and hiv are negative though final results to follow, liver shows no major hsm or cirrhosis, may consider meds or bone marrow process, smear reviewed --> this pancytopenia is acute in onset, over last several days, thus most likely abx infection related --> query meds, review with ID, is on micafungin now, monitor counts closely --> if no other cause and/or worsens, may consider flow cytometry or a bone marrow biopsy --> nepogen 300mcg sq to maintain anc >1500 --> wbc trend : 1.7-->4.3-->3.1-->3.4-->7.7-->8.1--12--> # Anemia of chronic disease - monitor anemia panel --> hemolysis does not appear to be the case --> anemia panel reviewed --> hgb trend: 8.3-->9.2-->8.9-->8.7-->9 # Paroxysmal atrial fibrillation, due to CHADS-VASC score of 5, we require to keep anticoagulated, on metoprolol --> continue on apixaban # Hx of CAD, s/p CABG, ASA , atorvastatin and metoprolol. No wall motion abnormalities on Echo. LVEF ~55%. --> appreciate cards recs # Sinus tachycardia due to hypovolemia, resolved. # DKA, resolved. --> continue monitor # DM, non-compliant with medications. # Hx of HTN, controlled with metoprolol. # pancreatitis # increased LFT The timing of this note does not necessarily reflect the time of the patient was seen. Greatly appreciate consultation! Subjective Constitutional: Denies: no symptoms, chills, diaphoresis, fever, malaise, weakness, other HEENT: Denies: no symptoms, eye pain, blurred vision, tearing, double vision, ear pain, ear discharge, nose pain, nose congestion, throat pain, throat swelling, mouth pain, mouth swelling, other Cardiovascular: Denies: no symptoms, chest pain, edema, irregular heart rate, lightheadedness, palpitations, syncope, other Respiratory: Denies: no symptoms, cough, orthopnea, shortness of breath, SOB with excertion, SOB at rest, sputum, stridor, wheezing, other Gastrointestinal/Abdominal: Denies: no symptoms, abdomen distended, abdominal pain, black stools, tarry stools, blood in stool, constipated, diarrhea, difficulty swallowing, nausea, poor appetite, poor fluid intake, rectal bleeding , vomiting, other Genitourinary: Denies: no symptoms, burning, discharge, frequency, flank pain, hematuria, incontinence, pain, urgency, other Neurologic/Psychiatric: Denies: no symptoms, anxiety, depressed, emotional problems, headache, numbness, paresthesia, pre-existing deficit, seizure, tingling, tremors, weakness, other Endocrine: Denies: no symptoms, excessive sweating, flushing, intolerance to cold, intolerance to heat, increased hunger, increased thirst, increased urine, unexplained weight gain, unexplained weight loss, other Hematologic/Lymphatic: Denies: no symptoms, anemia, easy bleeding, easy bruising, other Allergies: Coded Allergies: SHELLFISH DERIVED (Verified Allergy, Unknown, swelling and itchiness, 05/14) Subjective 05/18: Pt is awake and comfortable, no events, leukopenia improved, wbc 4.3, plt 151 05/19: seen by bedside, awake, comfortable, plt 122 05/20: Pt is awake and comfortable, no events 05/21: Pt is seen in the room, resting in bed, no fevers or chills, wbc 8.7, plt 117 2: Pt is resting in bed, awake, comfortable, no fevers or chills, no acute distress. 05/24: EGD and EUS done today, has no gallbladder stones, only pancreatitis, no events 2: no events, dermatitis has improved, off loading of heels, pancreatitis and dka better 2: Pt is awake, comfortable, no acute events overnight, hgb 8.6 2: seen by bedside, awake, comfortable, no events 05/28: resting in bed, awake, comfortable, no fevers or chills, no acute distress , No need for ERCP per GI, 05/31: Pt is awake and comfortable, no events 06/01: awake, comfortable, denies acute distress. Objective Last 24 Hour Vital Signs Date Time Temp Pulse Resp B/P (MAP) Pulse Ox O2 Delivery O2 Flow Rate FiO2 06/01/18 17:11 88 20 100 Facial 40 06/01/18 16:00 74 06/01/18 16:00 99.3 72 20 143/66 (91) 100 06/01/18 15:13 90 24 100 Facial 40 06/01/18 12:00 98.6 87 19 151/78 (102) 96 06/01/18 12:00 2.0 30 06/01/18 11:54 86 06/01/18 10:59 72 20 97 Facial 40 06/01/18 09:57 85 19 131/85 (100) 100 06/01/18 08:37 103 168/89 06/01/18 08:37 103 168/89 06/01/18 08:13 103 25 94 Venturi Mask 12.0 50 06/01/18 08:00 2.0 30 06/01/18 08:00 98.6 93 19 168/89 (115) 96 06/01/18 07:57 89 06/01/18 07:26 97 Bi-pap 40 06/01/18 07:26 Bi-pap 40 06/01/18 07:25 95 27 Bi-pap 40 06/01/18 07:23 94 27 96 Facial 40 06/01/18 07:02 Nasal Cannula 4.0 06/01/18 05:20 85 24 98 Facial 40 06/01/18 04:00 2.0 30 06/01/18 04:00 87 06/01/18 04:00 97.2 85 19 154/78 (103) 96 06/01/18 03:19 77 21 99 Facial 40 06/01/18 00:00 98.0 82 20 144/74 (97) 99 06/01/18 00:00 72 05/31/18 22:36 79 24 98 Facial 40 05/31/18 22:07 97.3 120 18 168/98 (121) 94 05/31/18 21:30 120 168/98 05/31/18 21:16 93 27 98 Facial 50 05/31/18 21:00 Nasal Cannula 4.0 05/31/18 20:00 97.3 120 18 168/98 (121) 96 05/31/18 20:00 2.0 30 05/31/18 20:00 101 05/31/18 19:01 106 30 96 Facial 50 05/31/18 19:00 Bi-pap 50 05/31/18 19:00 96 Bi-pap 50 05/31/18 19:00 94 30 Bi-pap 40 Intake and Output 05/31/18 06/01/18 19:00 07:00 Intake Total 340 ml 110 ml Output Total 300 ml 400 ml Balance 40 ml -290 ml Intake Oral 340 ml IV Total 110 ml Output Urine Total 300 ml 400 ml Laboratory Tests 06/01/18 09:20: White Blood Count 16.3H, Red Blood Count 3.27L, Hemoglobin 8.9L, Hematocrit 28.8L, Mean Corpuscular Volume 88, Mean Corpuscular Hemoglobin 27.2, Mean Corpuscular Hemoglobin Concent 30.8L, Red Cell Distribution Width 22.0H, Platelet Count 473H, Mean Platelet Volume 5.7L, Neutrophils (%) (Auto) , Lymphocytes (%) (Auto) , Monocytes (%) (Auto) , Eosinophils (%) (Auto) , Basophils (%) (Auto) , Differential Total Cells Counted 100, Neutrophils % ( Manual) 92H, Lymphocytes % (Manual) 5L, Monocytes % (Manual) 3, Eosinophils % ( Manual) 0, Basophils % (Manual) 0, Band Neutrophils 0, Nucleated Red Blood Cells 1, Platelet Estimate IncreasedH, Platelet Morphology Normal, Polychromasia 1+, Hypochromasia 1+, Anisocytosis 2+, Sodium Level 140, Potassium Level 4.6, Chloride Level 106, Carbon Dioxide Level 17L, Anion Gap 17H , Blood Urea Nitrogen 16, Creatinine 1.5H, Estimat Glomerular Filtration Rate 34.4, Glucose Level 199H, Calcium Level 8.4L, Total Bilirubin 1.3H, Direct Bilirubin 0.6H, Aspartate Amino Transf (AST/SGOT) 47H, Alanine Aminotransferase (ALT/SGPT) 62, Alkaline Phosphatase 558H, Total Protein 7.5, Albumin 2.3L, Globulin 5.2, Albumin/Globulin Ratio 0.4L 06/01/18 11:52: Arterial Blood pH 7.414, Arterial Blood Partial Pressure CO2 25.0L, Arterial Blood Partial Pressure O2 50.1L, Arterial Blood HCO3 15.6*L, Arterial Blood Oxygen Saturation 83.4*L, Arterial Blood Base Excess -7.6L, Marlon Test Positive Height (Feet): 4 Height (Inches): 10.00 Weight (Pounds): 168 Objective PHYSICAL EXAMINATION: GENERAL: Pleasant [place] woman seen in the ICU. HEENT: Normocephalic and atraumatic. Sclerae anicteric. Oropharynx clear. NECK: Supple. CHEST: Clear to auscultation. CARDIOVASCULAR: Revealed regular rate. ABDOMEN: Soft. Good bowel sounds. There is no organomegaly or tenderness. Anterior chest and abdomen scars were as expected. EXTREMITIES: Revealed no edema. Armando Bowen MD Jun 01, 2018 18:13
--- NOTE | 2018-06-01 18:19 | NUR ---
NURSE NOTES: Patient unsafe to be fed,not swallowing,no insulin coverage given NPO
--- NOTE | 2018-06-01 19:19 | NUR ---
NURSE NOTES: Report received from WAYNE Frederick. Patient seen in bed in baires position with Bipap; setting of 15/5, 50%. No S/Sx of pain is noted. Patient is alert, verbally responsive. Noted with PICC line to left upper arm and intact. [place] is in place at this time. Bed is in lowest position. Call light is within easy reach while in bed. Will continue to monitor.
--- NOTE | 2018-06-01 19:19 | NUR ---
HAND-OFF: Report given to WAYNE Ruiz patient on BIPAP,breathing easy,no distress,head elevated,no restraints ,calm,PICC left upper arm,intact,dry.
[2018-06-01] MEDS: OLANZapine 2.5mg tab ORAL SCH (20:03)
[2018-06-01] MEDS: Dyna-Hex 2% Top Sol 2oz TOPIC SCH (20:03)
[2018-06-01] MEDS ORDERED: OLANZapine 2.5mg tab ORAL SCH (21:00)
--- NOTE | 2018-06-01 21:30 | Cardiology Progress Note ---
Assessment/Plan Assessment/Plan 1. Paroxysmal atrial fibrillation, in SR now, due to CHADS-VASC score of 5, continue enoxaparin and metoprolol. 2. Hx of CAD, s/p CABG, ASA , atorvastatin and metoprolol. No wall motion abnormalities on Echo. LVEF ~55%. 3. Sinus tachycardia, resolved, due to hypovolemia. 4. DKA, resolved. 5. DM, non-compliant with medications. 6. HTN, stage II,continue amlodipine, metoprolol and hydralazine. 7. Severe pulmonary HTN. Subjective Subjective Sinus rhythm at rate of 68. On bipap mask, FiO2 50%. Objective Last 24 Hour Vital Signs Date Time Temp Pulse Resp B/P (MAP) Pulse Ox O2 Delivery O2 Flow Rate FiO2 06/01/18 21:11 68 23 100 Facial 50 06/01/18 21:10 68 23 Bi-pap 50 06/01/18 21:09 Bi-pap 50 06/01/18 21:09 100 Bi-pap 50 06/01/18 20:03 71 145/70 06/01/18 20:00 72 06/01/18 19:02 72 20 100 Facial 50 06/01/18 17:11 88 20 100 Facial 40 06/01/18 16:00 74 06/01/18 16:00 99.3 72 20 143/66 (91) 100 06/01/18 16:00 15.0 30 06/01/18 15:13 90 24 100 Facial 40 06/01/18 12:00 98.6 87 19 151/78 (102) 96 06/01/18 12:00 2.0 30 06/01/18 11:54 86 06/01/18 10:59 72 20 97 Facial 40 06/01/18 09:57 85 19 131/85 (100) 100 06/01/18 08:37 103 168/89 06/01/18 08:37 103 168/89 06/01/18 08:13 103 25 94 Venturi Mask 12.0 50 06/01/18 08:00 2.0 30 06/01/18 08:00 98.6 93 19 168/89 (115) 96 06/01/18 07:57 89 06/01/18 07:26 97 Bi-pap 40 06/01/18 07:26 Bi-pap 40 06/01/18 07:25 95 27 Bi-pap 40 06/01/18 07:23 94 27 96 Facial 40 06/01/18 07:02 Nasal Cannula 4.0 06/01/18 05:20 85 24 98 Facial 40 06/01/18 04:00 2.0 30 06/01/18 04:00 87 06/01/18 04:00 97.2 85 19 154/78 (103) 96 06/01/18 03:19 77 21 99 Facial 40 06/01/18 00:00 98.0 82 20 144/74 (97) 99 06/01/18 00:00 72 05/31/18 22:36 79 24 98 Facial 40 05/31/18 22:07 97.3 120 18 168/98 (121) 94 05/31/18 21:30 120 168/98 Intake and Output 05/31/18 06/01/18 19:00 07:00 Intake Total 340 ml 110 ml Output Total 300 ml 400 ml Balance 40 ml -290 ml Intake Oral 340 ml IV Total 110 ml Output Urine Total 300 ml 400 ml 2D Echo: EF55%,Mild LVH,Mod MR,Mild AR,RVSP 67 mmHg (severe PHT),Restrictive LV phy Laboratory Tests Test 06/01/18 09:20 06/01/18 11:52 White Blood Count 16.3 K/UL (4.8-10.8) H Red Blood Count 3.27 M/UL (4.20-5.40) L Hemoglobin 8.9 G/DL (12.0-16.0) L Hematocrit 28.8 % (37.0-47.0) L Mean Corpuscular Volume 88 FL (80-99) Mean Corpuscular Hemoglobin 27.2 PG (27.0-31.0) Mean Corpuscular Hemoglobin Concent 30.8 G/DL (32.0-36.0) L Red Cell Distribution Width 22.0 % (11.6-14.8) H Platelet Count 473 K/UL (150-450) H Mean Platelet Volume 5.7 FL (6.5-10.1) L Neutrophils (%) (Auto) % (45.0-75.0) Lymphocytes (%) (Auto) % (20.0-45.0) Monocytes (%) (Auto) % (1.0-10.0) Eosinophils (%) (Auto) % (0.0-3.0) Basophils (%) (Auto) % (0.0-2.0) Differential Total Cells Counted 100 Neutrophils % (Manual) 92 % (45-75) H Lymphocytes % (Manual) 5 % (20-45) L Monocytes % (Manual) 3 % (1-10) Eosinophils % (Manual) 0 % (0-3) Basophils % (Manual) 0 % (0-2) Band Neutrophils 0 % (0-8) Nucleated Red Blood Cells 1 /100 WBC Platelet Estimate Increased H Platelet Morphology Normal Polychromasia 1+ Hypochromasia 1+ Anisocytosis 2+ Sodium Level 140 MMOL/L (136-145) Potassium Level 4.6 MMOL/L (3.5-5.1) Chloride Level 106 MMOL/L (98-107) Carbon Dioxide Level 17 MMOL/L (21-32) L Anion Gap 17 mmol/L (5-15) H Blood Urea Nitrogen 16 mg/dL (7-18) Creatinine 1.5 MG/DL (0.55-1.30) H Estimat Glomerular Filtration Rate 34.4 mL/min (>60) Glucose Level 199 MG/DL (74-106) H Calcium Level 8.4 MG/DL (8.5-10.1) L Total Bilirubin 1.3 MG/DL (0.2-1.0) H Direct Bilirubin 0.6 MG/DL (0.0-0.3) H Aspartate Amino Transf (AST/SGOT) 47 U/L (15-37) H Alanine Aminotransferase (ALT/SGPT) 62 U/L (12-78) Alkaline Phosphatase 558 U/L (46-116) H Total Protein 7.5 G/DL (6.4-8.2) Albumin 2.3 G/DL (3.4-5.0) L Globulin 5.2 g/dL Albumin/Globulin Ratio 0.4 (1.0-2.7) L Arterial Blood pH 7.414 (7.350-7.450) Arterial Blood Partial Pressure CO2 25.0 mmHg (35.0-45.0) L Arterial Blood Partial Pressure O2 50.1 mmHg (75.0-100.0) L Arterial Blood HCO3 15.6 mmol/L (22.0-26.0) *L Arterial Blood Oxygen Saturation 83.4 % (95-100) *L Arterial Blood Base Excess -7.6 (-2-2) L Marlon Test Positive Objective HEENT: Normocephalic, atraumatic, Pupils equally reactive to light and accommodation, EOMI. NECK: No JVD, no carotid bruit. CARDIOVASCULAR: Regular rate and rhythm. No murmurs, gallops or rubs. LUNGS: Clear to auscultation bilaterally. No crackles or Rhonchi. ABDOMEN: Soft and nontender. No organomegaly, + BS. EXTREMITIES: No cyanosis, clubbing or edema. Miller Mckeon MD Jun 01, 2018 21:30
[2018-06-02] VITALS: BP 142/87
[2018-06-02] MEDS: HydrALAZINE 25mg tab ORAL SCH ×4 (02:06→17:15)
[2018-06-02 04:00] VITALS: BP 152/69
[2018-06-02] MEDS: Piperacillin/Tazobactam 3.375 GM in NS 110 ML IV SCH ×3 (05:40→22:24)
[2018-06-02] MEDS: NovoLOG Insulin Flexpen SUBQ SCH ×5 (05:41→22:18)
[2018-06-02 05:47] LABS: HEMATOCRIT 28.1 % (37.0-47.0); HEMOGLOBIN 8.7 G/DL (12.0-16.0); MEAN CORPUSCULAR VOLUME 89 FL (80-99); PLATELET COUNT 407 K/UL (150-450); RED BLOOD COUNT 3.15 M/UL (4.20-5.40); RED CELL DISTRIBUTION WIDTH 22.4 % (11.6-14.8); WHITE BLOOD COUNT 15.8 K/UL (4.8-10.8)
[2018-06-02 06:10] LABS: ANION GAP 18 mmol/L (5-15); BLOOD UREA NITROGEN 21 mg/dL (7-18); CALCIUM 8.7 MG/DL (8.5-10.1); CARBON DIOXIDE 18 MMOL/L (21-32); CHLORIDE 109 MMOL/L (98-107); CREATININE 1.6 MG/DL (0.55-1.30); POTASSIUM 4.5 MMOL/L (3.5-5.1); SODIUM 145 MMOL/L (136-145)
--- NOTE | 2018-06-02 07:34 | NUR ---
HAND-OFF: Report given to WAYEN Andrews.
--- NOTE | 2018-06-02 07:35 | NUR ---
NURSE NOTES: Received patient in bed. On nasal cannula at 4LPM. Asleep, easy to arouse. Verbally responsive. Will continue plan of care.
[2018-06-02 08:00] VITALS: BP 160/90
[2018-06-02] MEDS: Metoprolol Tartrate 50mg tab ORAL SCH ×3 (08:41→21:00)
[2018-06-02] MEDS: Enoxaparin 80mg Inj SUBQ SCH ×2 (08:44→20:13)
--- NOTE | 2018-06-02 08:57 | General Progress Note ---
Assessment/Plan Assessment/Plan Impression Diabetic ketoacidosis Anemia Transaminitis of unclear etiology Severe protein calorie malnutrition Evidence of pancreatitis, better Acute renal failure, improved Hyperglycemia Diabetes Hyponatremia Metabolic acidosis Hypercholesterolemia fever oral ulcers afib with RVR leukopenia pancreatitis hold dispo neuro evaluation on antibiotics on lovenox care noted; will need rehab impression, plan, and exam edited and reviewed in detail care discussed with RN Subjective Allergies: Coded Allergies: SHELLFISH DERIVED (Verified Allergy, Unknown, swelling and itchiness, 05/14) Subjective care noted weak comfortable d/w family as to acute CVA Objective Last 24 Hour Vital Signs Date Time Temp Pulse Resp B/P (MAP) Pulse Ox O2 Delivery O2 Flow Rate FiO2 06/02/18 08:42 61 160/90 06/02/18 08:41 61 160/90 06/02/18 08:00 97.9 61 16 160/90 (113) 98 06/02/18 08:00 50 06/02/18 07:33 Bi-pap 50 06/02/18 07:32 100 Bi-pap 50 06/02/18 07:29 85 20 98 Facial 50 06/02/18 05:46 84 19 97 Facial 50 06/02/18 05:40 152/69 06/02/18 04:00 97.9 70 16 152/69 (96) 98 06/02/18 04:00 30 06/02/18 03:57 73 20 96 Facial 50 06/02/18 03:24 81 06/02/18 02:06 142/87 06/02/18 01:22 73 18 98 Facial 50 06/02/18 00:00 30 06/02/18 00:00 97.7 84 20 142/87 (105) 98 06/01/18 23:26 74 06/01/18 23:12 73 24 99 Facial 50 06/01/18 21:37 70 18 100 Bi-pap 50 06/01/18 21:27 69 21 99 Bi-pap 50 06/01/18 21:11 68 23 100 Facial 50 06/01/18 21:10 68 23 Bi-pap 50 06/01/18 21:09 Bi-pap 50 06/01/18 21:09 100 Bi-pap 50 06/01/18 21:00 Nasal Cannula 4.0 06/01/18 20:03 71 145/70 06/01/18 20:00 30 06/01/18 20:00 97.5 71 22 147/67 (93) 100 06/01/18 20:00 72 06/01/18 19:02 72 20 100 Facial 50 06/01/18 17:11 88 20 100 Facial 40 06/01/18 16:00 74 06/01/18 16:00 99.3 72 20 143/66 (91) 100 06/01/18 16:00 15.0 30 06/01/18 15:13 90 24 100 Facial 40 06/01/18 12:00 98.6 87 19 151/78 (102) 96 06/01/18 12:00 2.0 30 06/01/18 11:54 86 06/01/18 10:59 72 20 97 Facial 40 06/01/18 09:57 85 19 131/85 (100) 100 Intake and Output 06/01/18 06/02/18 19:00 07:00 Intake Total 5 ml 187.5 ml Output Total 400 ml 200 ml Balance -395 ml -12.5 ml Intake Oral 5 ml 50 ml IV Total 137.5 ml Output Urine Total 400 ml 200 ml # Voids 1 Laboratory Tests 06/01/18 09:20: White Blood Count 16.3H, Red Blood Count 3.27L, Hemoglobin 8.9L, Hematocrit 28.8L, Mean Corpuscular Volume 88, Mean Corpuscular Hemoglobin 27.2, Mean Corpuscular Hemoglobin Concent 30.8L, Red Cell Distribution Width 22.0H, Platelet Count 473H, Mean Platelet Volume 5.7L, Neutrophils (%) (Auto) , Lymphocytes (%) (Auto) , Monocytes (%) (Auto) , Eosinophils (%) (Auto) , Basophils (%) (Auto) , Differential Total Cells Counted 100, Neutrophils % ( Manual) 92H, Lymphocytes % (Manual) 5L, Monocytes % (Manual) 3, Eosinophils % ( Manual) 0, Basophils % (Manual) 0, Band Neutrophils 0, Nucleated Red Blood Cells 1, Platelet Estimate IncreasedH, Platelet Morphology Normal, Polychromasia 1+, Hypochromasia 1+, Anisocytosis 2+, Sodium Level 140, Potassium Level 4.6, Chloride Level 106, Carbon Dioxide Level 17L, Anion Gap 17H , Blood Urea Nitrogen 16, Creatinine 1.5H, Estimat Glomerular Filtration Rate 34.4, Glucose Level 199H, Calcium Level 8.4L, Total Bilirubin 1.3H, Direct Bilirubin 0.6H, Aspartate Amino Transf (AST/SGOT) 47H, Alanine Aminotransferase (ALT/SGPT) 62, Alkaline Phosphatase 558H, Total Protein 7.5, Albumin 2.3L, Globulin 5.2, Albumin/Globulin Ratio 0.4L 06/01/18 11:52: Arterial Blood pH 7.414, Arterial Blood Partial Pressure CO2 25.0L, Arterial Blood Partial Pressure O2 50.1L, Arterial Blood HCO3 15.6*L, Arterial Blood Oxygen Saturation 83.4*L, Arterial Blood Base Excess -7.6L, Marlon Test Positive 06/02/18 03:40: White Blood Count 15.8H, Red Blood Count 3.15L, Hemoglobin 8.7L, Hematocrit 28.1L, Mean Corpuscular Volume 89, Mean Corpuscular Hemoglobin 27.6, Mean Corpuscular Hemoglobin Concent 30.8L, Red Cell Distribution Width 22.4H, Platelet Count 407, Mean Platelet Volume 4.5L, Neutrophils (%) (Auto) , Lymphocytes (%) (Auto) , Monocytes (%) (Auto) , Eosinophils (%) (Auto) , Basophils (%) (Auto) , Neutrophils % (Manual) [Pending], Lymphocytes % (Manual) [Pending], Platelet Estimate [Pending], Platelet Morphology [Pending], Sodium Level 145, Potassium Level 4.5, Chloride Level 109H, Carbon Dioxide Level 18L, Anion Gap 18H, Blood Urea Nitrogen 21H, Creatinine 1.6H, Estimat Glomerular Filtration Rate 31.8, Glucose Level 168H, Calcium Level 8.7 Height (Feet): 4 Height (Inches): 10.00 Weight (Pounds): 176 Objective WDWN more lethargic clear breath sounds bilaterally without rhonchi or wheeze S1S2 RRR without MRG NABS nontender no HSM no CCE remains weak alert Jesus Lew MD Jun 02, 2018 08:57
[2018-06-02] MEDS ORDERED: Aspirin Baby 81mg ORAL SCH (09:00)
--- NOTE | 2018-06-02 09:12 | Infectious Diseases Prog Note ---
Assessment/Plan Assessment/Plan A 1. pancreatitis, EUS negative 2. herpes of lip 3. diabetic ketoacidosis 4. increased LFT 5. fever 6. hypertension 7. Pancytopenia 10. Fungal UTI P 1. continue Zosyn & Vancomycin Subjective ROS Limited/Unobtainable: Yes Constitutional: Reports: no symptoms Allergies: Coded Allergies: SHELLFISH DERIVED (Verified Allergy, Unknown, swelling and itchiness, 05/14) Objective Vital Signs Last 24 Hour Vital Signs Date Time Temp Pulse Resp B/P (MAP) Pulse Ox O2 Delivery O2 Flow Rate FiO2 06/02/18 08:42 61 160/90 06/02/18 08:41 61 160/90 06/02/18 08:00 97.9 61 16 160/90 (113) 98 06/02/18 08:00 50 06/02/18 07:33 Bi-pap 50 06/02/18 07:32 100 Bi-pap 50 06/02/18 07:29 85 20 98 Facial 50 06/02/18 05:46 84 19 97 Facial 50 06/02/18 05:40 152/69 06/02/18 04:00 97.9 70 16 152/69 (96) 98 06/02/18 04:00 30 06/02/18 03:57 73 20 96 Facial 50 06/02/18 03:24 81 06/02/18 02:06 142/87 06/02/18 01:22 73 18 98 Facial 50 06/02/18 00:00 30 06/02/18 00:00 97.7 84 20 142/87 (105) 98 06/01/18 23:26 74 06/01/18 23:12 73 24 99 Facial 50 06/01/18 21:37 70 18 100 Bi-pap 50 06/01/18 21:27 69 21 99 Bi-pap 50 06/01/18 21:11 68 23 100 Facial 50 06/01/18 21:10 68 23 Bi-pap 50 06/01/18 21:09 Bi-pap 50 06/01/18 21:09 100 Bi-pap 50 06/01/18 21:00 Nasal Cannula 4.0 06/01/18 20:03 71 145/70 06/01/18 20:00 30 06/01/18 20:00 97.5 71 22 147/67 (93) 100 06/01/18 20:00 72 2/12/19 19:02 72 20 100 Facial 50 06/01/18 17:11 88 20 100 Facial 40 06/01/18 16:00 74 06/01/18 16:00 99.3 72 20 143/66 (91) 100 06/01/18 16:00 15.0 30 06/01/18 15:13 90 24 100 Facial 40 06/01/18 12:00 98.6 87 19 151/78 (102) 96 06/01/18 12:00 2.0 30 06/01/18 11:54 86 06/01/18 10:59 72 20 97 Facial 40 06/01/18 09:57 85 19 131/85 (100) 100 Height (Feet): 4 Height (Inches): 10.00 Weight (Pounds): 176 HEENT: mucous membranes moist Respiratory/Chest: decreased breath sounds Cardiovascular: normal rate, other - left arm PICC line Abdomen: soft, non tender Extremities: other - edema of left arm Neurologic/Psychiatric: other Laboratory Tests Test 06/01/18 09:20 06/01/18 11:52 06/02/18 03:40 White Blood Count 16.3 K/UL (4.8-10.8) H 15.8 K/UL (4.8-10.8) H Red Blood Count 3.27 M/UL (4.20-5.40) L 3.15 M/UL (4.20-5.40) L Hemoglobin 8.9 G/DL (12.0-16.0) L 8.7 G/DL (12.0-16.0) L Hematocrit 28.8 % (37.0-47.0) L 28.1 % (37.0-47.0) L Mean Corpuscular Volume 88 FL (80-99) 89 FL (80-99) Mean Corpuscular Hemoglobin 27.2 PG (27.0-31.0) 27.6 PG (27.0-31.0) Mean Corpuscular Hemoglobin Concent 30.8 G/DL (32.0-36.0) L 30.8 G/DL (32.0-36.0) L Red Cell Distribution Width 22.0 % (11.6-14.8) H 22.4 % (11.6-14.8) H Platelet Count 473 K/UL (150-450) H 407 K/UL (150-450) Mean Platelet Volume 5.7 FL (6.5-10.1) L 4.5 FL (6.5-10.1) L Neutrophils (%) (Auto) % (45.0-75.0) % (45.0-75.0) Lymphocytes (%) (Auto) % (20.0-45.0) % (20.0-45.0) Monocytes (%) (Auto) % (1.0-10.0) % (1.0-10.0) Eosinophils (%) (Auto) % (0.0-3.0) % (0.0-3.0) Basophils (%) (Auto) % (0.0-2.0) % (0.0-2.0) Differential Total Cells Counted 100 Neutrophils % (Manual) 92 % (45-75) H Pending Lymphocytes % (Manual) 5 % (20-45) L Pending Monocytes % (Manual) 3 % (1-10) Eosinophils % (Manual) 0 % (0-3) Basophils % (Manual) 0 % (0-2) Band Neutrophils 0 % (0-8) Nucleated Red Blood Cells 1 /100 WBC Platelet Estimate Increased H Pending Platelet Morphology Normal Pending Polychromasia 1+ Hypochromasia 1+ Anisocytosis 2+ Sodium Level 140 MMOL/L (136-145) 145 MMOL/L (136-145) Potassium Level 4.6 MMOL/L (3.5-5.1) 4.5 MMOL/L (3.5-5.1) Chloride Level 106 MMOL/L (98-107) 109 MMOL/L (98-107) H Carbon Dioxide Level 17 MMOL/L (21-32) L 18 MMOL/L (21-32) L Anion Gap 17 mmol/L (5-15) H 18 mmol/L (5-15) H Blood Urea Nitrogen 16 mg/dL (7-18) 21 mg/dL (7-18) H Creatinine 1.5 MG/DL (0.55-1.30) H 1.6 MG/DL (0.55-1.30) H Estimat Glomerular Filtration Rate 34.4 mL/min (>60) 31.8 mL/min (>60) Glucose Level 199 MG/DL (74-106) H 168 MG/DL (74-106) H Calcium Level 8.4 MG/DL (8.5-10.1) L 8.7 MG/DL (8.5-10.1) Total Bilirubin 1.3 MG/DL (0.2-1.0) H Direct Bilirubin 0.6 MG/DL (0.0-0.3) H Aspartate Amino Transf (AST/SGOT) 47 U/L (15-37) H Alanine Aminotransferase (ALT/SGPT) 62 U/L (12-78) Alkaline Phosphatase 558 U/L (46-116) H Total Protein 7.5 G/DL (6.4-8.2) Albumin 2.3 G/DL (3.4-5.0) L Globulin 5.2 g/dL Albumin/Globulin Ratio 0.4 (1.0-2.7) L Arterial Blood pH 7.414 (7.350-7.450) Arterial Blood Partial Pressure CO2 25.0 mmHg (35.0-45.0) L Arterial Blood Partial Pressure O2 50.1 mmHg (75.0-100.0) L Arterial Blood HCO3 15.6 mmol/L (22.0-26.0) *L Arterial Blood Oxygen Saturation 83.4 % (95-100) *L Arterial Blood Base Excess -7.6 (-2-2) L Marlon Test Positive Current Medications Medications (Trade) Dose Ordered Sig/Ellen Route PRN Reason Start Time Stop Time Status Last Admin Dose Admin Acetaminophen (Tylenol) 650 mg Q4H PRN ORAL Mild Pain/Temp > 100.5 06/01/18 13:34 06/16/18 13:33 Al Hydroxide/Mg Hydroxide (Mylanta) 30 ml Q6H PRN ORAL Abdominal cramps 06/01/18 13:35 06/12/18 13:34 Albuterol/ Ipratropium (Albuterol/ Ipratropium) 3 ml Q4H PRN HHN Shortness of Breath 06/01/18 13:34 06/02/18 13:33 06/01/18 21:27 Amlodipine Besylate (Norvasc) 5 mg BID ORAL 06/01/18 18:00 06/28/18 08:59 06/02/18 08:42 Aspirin (ASA) 81 mg DAILY ORAL 06/02/18 09:00 06/24/18 08:59 06/02/18 08:41 Chlorhexidine Gluconate (Leora-Hex 2%) 1 applic DAILY@2000 TOPIC 06/01/18 20:00 06/24/18 19:59 06/01/18 20:03 Dextrose (Dextrose 50%) 25 ml Q30M PRN IV Hypoglycemia 06/01/18 13:45 06/13/18 10:14 Dextrose (Dextrose 50%) 50 ml Q30M PRN IV Hypoglycemia 06/01/18 13:45 06/13/18 10:14 Enoxaparin Sodium (Lovenox) 80 mg Q12HR SUBQ 06/01/18 21:00 06/25/18 20:59 06/02/18 08:44 Haloperidol Lactate (Haldol) 5 mg Q6H PRN IM Agitation 06/01/18 13:35 07/01/18 13:34 Hydralazine HCl (Apresoline) 25 mg Q6HR ORAL 06/02/18 00:00 07/02/18 00:00 06/02/18 05:40 Insulin Aspart (NovoLOG) BEFORE MEALS AND HS SUBQ 06/01/18 16:30 06/13/18 11:29 06/02/18 05:41 Lorazepam (Ativan) 1 mg Q6H PRN ORAL For Anxiety 06/01/18 13:35 06/08/18 13:34 06/01/18 20:03 Magnesium Hydroxide (Mom) 30 ml DAILYPRN PRN ORAL Constipation 06/01/18 13:35 06/14/18 13:34 Metoprolol Tartrate (Lopressor) 5 mg Q2H PRN IVP For High Blood Pressure 06/01/18 15:00 06/23/18 16:59 Metoprolol Tartrate (Lopressor) 50 mg Q12HR ORAL 06/01/18 21:00 06/26/18 20:59 06/02/18 08:41 Olanzapine (ZyPREXA) 2.5 mg BEDTIME ORAL 06/01/18 21:00 07/01/18 20:59 06/01/18 20:03 Pantoprazole (Protonix) 40 mg ACBREAKFAST ORAL 06/02/18 06:30 3/9/19 06:29 06/02/18 05:40 Piperacillin Sod/ Tazobactam Sod 3.375 gm/Sodium Chloride 110 ml @ 27.5 mls/hr EVERY 8 HOURS IV 06/01/18 14:00 06/05/18 10:59 06/02/18 05:40 Vancomycin HCl (Vanco rx to dose) 1 ea DAILY PRN MISC Per rx protocol 06/02/18 09:00 07/01/18 11:14 Mahesh Tejada MD Jun 02, 2018 09:12
--- NOTE | 2018-06-02 10:54 | GI Progress Note ---
Assessment/Plan Problems: (1) Pancreatitis ICD Codes: K85.90 - Acute pancreatitis without necrosis or infection, unspecified SNOMED: 11281954 Qualifiers: Qualified Codes: K85.90 - Acute pancreatitis without necrosis or infection, unspecified (2) DKA (diabetic ketoacidosis) ICD Codes: E13.10 - Other specified diabetes mellitus with ketoacidosis without coma SNOMED: 962046002, 06106721 Qualifiers: Qualified Codes: E10.10 - Type 1 diabetes mellitus with ketoacidosis without coma (3) Diabetes ICD Codes: E11.9 - Type 2 diabetes mellitus without complications SNOMED: 95928504 Status: stable Status Narrative Discussed with Dr. Benito Assessment/Plan Status post EUS summary of findings 1. Pancreatitis, most probably acute, without any pancreatic duct dilatation or mass. 2. No evidence of any common bile duct dilatation was seen with common bile duct stone. 3. Gallbladder wall thickening, nonspecific. 4. 1 cm kristina hepatis lymph node, nonspecific. Elevated lipase levels, downtrending transfered to [facility] RECOMMENDATIONS: Advance to soft renal diet No need for ERCP Pain management Trend lipase Zofran as needed Follow-up labs fu cxr The patient was seen and examined at bedside and all new and available data was reviewed in the patients chart. I agree with the above findings, impression and plan. (Patient seen earlier today. Signature stamp does not reflect patient encounter time.). - Neeraj Benito MD Subjective Subjective denies any abdominal pain Tolerating diet new onset of SOB Objective Last 24 Hour Vital Signs Date Time Temp Pulse Resp B/P (MAP) Pulse Ox O2 Delivery O2 Flow Rate FiO2 06/02/18 09:00 Nasal Cannula 4.0 06/02/18 08:42 61 160/90 06/02/18 08:41 61 160/90 06/02/18 08:00 97.9 61 16 160/90 (113) 98 06/02/18 08:00 87 06/02/18 08:00 50 06/02/18 07:33 Bi-pap 50 06/02/18 07:32 100 Bi-pap 50 06/02/18 07:29 85 20 98 Facial 50 06/02/18 05:46 84 19 97 Facial 50 06/02/18 05:40 152/69 06/02/18 04:00 97.9 70 16 152/69 (96) 98 06/02/18 04:00 30 06/02/18 03:57 73 20 96 Facial 50 06/02/18 03:24 81 06/02/18 02:06 142/87 06/02/18 01:22 73 18 98 Facial 50 06/02/18 00:00 30 06/02/18 00:00 97.7 84 20 142/87 (105) 98 06/01/18 23:26 74 06/01/18 23:12 73 24 99 Facial 50 06/01/18 21:37 70 18 100 Bi-pap 50 06/01/18 21:27 69 21 99 Bi-pap 50 06/01/18 21:11 68 23 100 Facial 50 06/01/18 21:10 68 23 Bi-pap 50 06/01/18 21:09 Bi-pap 50 06/01/18 21:09 100 Bi-pap 50 06/01/18 21:00 Nasal Cannula 4.0 06/01/18 20:03 71 145/70 06/01/18 20:00 30 06/01/18 20:00 97.5 71 22 147/67 (93) 100 06/01/18 20:00 72 06/01/18 19:02 72 20 100 Facial 50 06/01/18 17:11 88 20 100 Facial 40 06/01/18 16:00 74 06/01/18 16:00 99.3 72 20 143/66 (91) 100 06/01/18 16:00 15.0 30 06/01/18 15:13 90 24 100 Facial 40 06/01/18 12:00 98.6 87 19 151/78 (102) 96 06/01/18 12:00 2.0 30 06/01/18 11:54 86 06/01/18 10:59 72 20 97 Facial 40 Intake and Output 06/01/18 06/02/18 19:00 07:00 Intake Total 5 ml 187.5 ml Output Total 400 ml 200 ml Balance -395 ml -12.5 ml Intake Oral 5 ml 50 ml IV Total 137.5 ml Output Urine Total 400 ml 200 ml # Voids 1 Laboratory Tests Test 06/01/18 11:52 06/02/18 03:40 06/02/18 10:37 Arterial Blood pH 7.414 (7.350-7.450) 7.488 (7.350-7.450) Arterial Blood Partial Pressure CO2 25.0 mmHg (35.0-45.0) L 32.6 mmHg (35.0-45.0) L Arterial Blood Partial Pressure O2 50.1 mmHg (75.0-100.0) L 70.1 mmHg (75.0-100.0) L Arterial Blood HCO3 15.6 mmol/L (22.0-26.0) *L 24.2 mmol/L (22.0-26.0) Arterial Blood Oxygen Saturation 83.4 % (95-100) *L 92.9 % (95-100) L Arterial Blood Base Excess -7.6 (-2-2) L 1.0 (-2-2) Marlon Test Positive Positive White Blood Count 15.8 K/UL (4.8-10.8) H Red Blood Count 3.15 M/UL (4.20-5.40) L Hemoglobin 8.7 G/DL (12.0-16.0) L Hematocrit 28.1 % (37.0-47.0) L Mean Corpuscular Volume 89 FL (80-99) Mean Corpuscular Hemoglobin 27.6 PG (27.0-31.0) Mean Corpuscular Hemoglobin Concent 30.8 G/DL (32.0-36.0) L Red Cell Distribution Width 22.4 % (11.6-14.8) H Platelet Count 407 K/UL (150-450) Mean Platelet Volume 4.5 FL (6.5-10.1) L Neutrophils (%) (Auto) % (45.0-75.0) Lymphocytes (%) (Auto) % (20.0-45.0) Monocytes (%) (Auto) % (1.0-10.0) Eosinophils (%) (Auto) % (0.0-3.0) Basophils (%) (Auto) % (0.0-2.0) Differential Total Cells Counted 100 Neutrophils % (Manual) 83 % (45-75) H Lymphocytes % (Manual) 3 % (20-45) L Monocytes % (Manual) 6 % (1-10) Eosinophils % (Manual) 0 % (0-3) Basophils % (Manual) 0 % (0-2) Band Neutrophils 8 % (0-8) Platelet Estimate Adequate Platelet Morphology Normal Polychromasia 1+ Hypochromasia 1+ Anisocytosis 2+ Sodium Level 145 MMOL/L (136-145) Potassium Level 4.5 MMOL/L (3.5-5.1) Chloride Level 109 MMOL/L (98-107) H Carbon Dioxide Level 18 MMOL/L (21-32) L Anion Gap 18 mmol/L (5-15) H Blood Urea Nitrogen 21 mg/dL (7-18) H Creatinine 1.6 MG/DL (0.55-1.30) H Estimat Glomerular Filtration Rate 31.8 mL/min (>60) Glucose Level 168 MG/DL (74-106) H Calcium Level 8.7 MG/DL (8.5-10.1) Height (Feet): 4 Height (Inches): 10.00 Weight (Pounds): 176 General Appearance: WD/WN, no apparent distress, alert Cardiovascular: normal rate Respiratory/Chest: normal breath sounds, no respiratory distress Abdominal Exam: normal bowel sounds, non tender, soft Extremities: normal range of motion, non-tender Ros Berry NP Jun 02, 2018 10:54
[2018-06-02 12:00] VITALS: BP 129/53
--- NOTE | 2018-06-02 12:48 | NUR ---
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 97.9 HR 61 RR 16 B/P 160/90 NC 4L WBC 13.8 [address]UN [address] HEAD= Findings suspicious for small subacute cortical infarct involving the right parietal lobe. multiple old infarcts. IS: ZOSYN IV PROTONIX IV ASA PO STEP DOWN STATUS
--- NOTE | 2018-06-02 12:52 | General Progress Note ---
Assessment/Plan Problem List: (1) Acute metabolic encephalopathy ICD Codes: G93.41 - Metabolic encephalopathy SNOMED: 57710920, [id number] Assessment/Plan Zyprexa 2.5mg po qhs Haldol prn limit using benzos may increase risk of aspiration restraints. Subjective Neurologic/Psychiatric: Reports: anxiety, depressed, emotional problems Allergies: Coded Allergies: SHELLFISH DERIVED (Verified Allergy, Unknown, swelling and itchiness, 05/14) Objective Last 24 Hour Vital Signs Date Time Temp Pulse Resp B/P (MAP) Pulse Ox O2 Delivery O2 Flow Rate FiO2 06/02/18 09:00 Nasal Cannula 4.0 06/02/18 08:42 61 160/90 06/02/18 08:41 61 160/90 06/02/18 08:00 97.9 61 16 160/90 (113) 98 06/02/18 08:00 87 06/02/18 08:00 50 06/02/18 07:33 Bi-pap 50 06/02/18 07:32 100 Bi-pap 50 06/02/18 07:29 85 20 98 Facial 50 06/02/18 05:46 84 19 97 Facial 50 06/02/18 05:40 152/69 06/02/18 04:00 97.9 70 16 152/69 (96) 98 06/02/18 04:00 30 06/02/18 03:57 73 20 96 Facial 50 06/02/18 03:24 81 06/02/18 02:06 142/87 06/02/18 01:22 73 18 98 Facial 50 06/02/18 00:00 30 06/02/18 00:00 97.7 84 20 142/87 (105) 98 06/01/18 23:26 74 06/01/18 23:12 73 24 99 Facial 50 06/01/18 21:37 70 18 100 Bi-pap 50 06/01/18 21:27 69 21 99 Bi-pap 50 06/01/18 21:11 68 23 100 Facial 50 06/01/18 21:10 68 23 Bi-pap 50 06/01/18 21:09 Bi-pap 50 06/01/18 21:09 100 Bi-pap 50 06/01/18 21:00 Nasal Cannula 4.0 06/01/18 20:03 71 145/70 06/01/18 20:00 30 06/01/18 20:00 97.5 71 22 147/67 (93) 100 06/01/18 20:00 72 06/01/18 19:02 72 20 100 Facial 50 06/01/18 17:11 88 20 100 Facial 40 06/01/18 16:00 74 06/01/18 16:00 99.3 72 20 143/66 (91) 100 06/01/18 16:00 15.0 30 06/01/18 15:13 90 24 100 Facial 40 Intake and Output 06/01/18 06/02/18 19:00 07:00 Intake Total 5 ml 187.5 ml Output Total 400 ml 200 ml Balance -395 ml -12.5 ml Intake Oral 5 ml 50 ml IV Total 137.5 ml Output Urine Total 400 ml 200 ml # Voids 1 Laboratory Tests 06/02/18 03:40: White Blood Count 15.8H, Red Blood Count 3.15L, Hemoglobin 8.7L, Hematocrit 28.1L, Mean Corpuscular Volume 89, Mean Corpuscular Hemoglobin 27.6, Mean Corpuscular Hemoglobin Concent 30.8L, Red Cell Distribution Width 22.4H, Platelet Count 407, Mean Platelet Volume 4.5L, Neutrophils (%) (Auto) , Lymphocytes (%) (Auto) , Monocytes (%) (Auto) , Eosinophils (%) (Auto) , Basophils (%) (Auto) , Differential Total Cells Counted 100, Neutrophils % ( Manual) 83H, Lymphocytes % (Manual) 3L, Monocytes % (Manual) 6, Eosinophils % ( Manual) 0, Basophils % (Manual) 0, Band Neutrophils 8, Platelet Estimate Adequate, Platelet Morphology Normal, Polychromasia 1+, Hypochromasia 1+, Anisocytosis 2+, Sodium Level 145, Potassium Level 4.5, Chloride Level 109H, Carbon Dioxide Level 18L, Anion Gap 18H, Blood Urea Nitrogen 21H, Creatinine 1.6H, Estimat Glomerular Filtration Rate 31.8, Glucose Level 168H, Calcium Level 8.7 06/02/18 10:37: Arterial Blood pH 7.488H, Arterial Blood Partial Pressure CO2 32.6L, Arterial Blood Partial Pressure O2 70.1L, Arterial Blood HCO3 24.2, Arterial Blood Oxygen Saturation 92.9L, Arterial Blood Base Excess 1.0, Marlon Test Positive Height (Feet): 4 Height (Inches): 10.00 Weight (Pounds): 176 General Appearance: confused, agitated Lynne Crane MD Jun 02, 2018 12:52
--- NOTE | 2018-06-02 14:34 | NUR ---
*-* INSURANCE *-* ALL CLINICALS HAVE BEEN FAXED TO: IPA: L[facility]AN[facility]NEIL GRP ADMISSION REPORTED TO [facility] [phone] AUTH#: PND CHIEF MEDICAL DIRECTOR: PND F#: [phone] PLEASE FAX CLINICALS TO ABOVE #
[2018-06-02 16:00] VITALS: BP 130/66
--- NOTE | 2018-06-02 17:09 | General Progress Note ---
Assessment/Plan Assessment/Plan Assessment and Recs # Pancytopenia -- appears that initial hep and hiv are negative though final results to follow, liver shows no major hsm or cirrhosis, may consider meds or bone marrow process, smear reviewed --> this pancytopenia is acute in onset, over last several days, thus most likely abx infection related --> query meds, review with ID, is on micafungin now, monitor counts closely --> if no other cause and/or worsens, may consider flow cytometry or a bone marrow biopsy --> nepogen 300mcg sq to maintain anc >1500 --> wbc trend : 1.7-->4.3-->3.1-->3.4-->7.7-->8.1--12--> # Anemia of chronic disease - monitor anemia panel --> hemolysis does not appear to be the case --> anemia panel reviewed --> hgb trend: 8.3-->9.2-->8.9-->8.7-->9 # Paroxysmal atrial fibrillation, due to CHADS-VASC score of 5, we require to keep anticoagulated, on metoprolol --> continue on apixaban # Hx of CAD, s/p CABG, ASA , atorvastatin and metoprolol. No wall motion abnormalities on Echo. LVEF ~55%. --> appreciate cards recs # Sinus tachycardia due to hypovolemia, resolved. # DKA, resolved. --> continue monitor # DM, non-compliant with medications. # Hx of HTN, controlled with metoprolol. # pancreatitis # increased LFT The timing of this note does not necessarily reflect the time of the patient was seen. Greatly appreciate consultation! Subjective ROS Limited/Unobtainable: Yes Constitutional: Denies: no symptoms, chills, diaphoresis, fever, malaise, weakness, other HEENT: Denies: no symptoms, eye pain, blurred vision, tearing, double vision, ear pain, ear discharge, nose pain, nose congestion, throat pain, throat swelling, mouth pain, mouth swelling, other Cardiovascular: Denies: no symptoms, chest pain, edema, irregular heart rate, lightheadedness, palpitations, syncope, other Respiratory: Denies: no symptoms, cough, orthopnea, shortness of breath, SOB with excertion, SOB at rest, sputum, stridor, wheezing, other Gastrointestinal/Abdominal: Denies: no symptoms, abdomen distended, abdominal pain, black stools, tarry stools, blood in stool, constipated, diarrhea, difficulty swallowing, nausea, poor appetite, poor fluid intake, rectal bleeding , vomiting, other Genitourinary: Denies: no symptoms, burning, discharge, frequency, flank pain, hematuria, incontinence, pain, urgency, other Neurologic/Psychiatric: Denies: no symptoms, anxiety, depressed, emotional problems, headache, numbness, paresthesia, pre-existing deficit, seizure, tingling, tremors, weakness, other Endocrine: Denies: no symptoms, excessive sweating, flushing, intolerance to cold, intolerance to heat, increased hunger, increased thirst, increased urine, unexplained weight gain, unexplained weight loss, other Hematologic/Lymphatic: Denies: no symptoms, anemia, easy bleeding, easy bruising, other Allergies: Coded Allergies: SHELLFISH DERIVED (Verified Allergy, Unknown, swelling and itchiness, 05/14) Subjective 05/18: Pt is awake and comfortable, no events, leukopenia improved, wbc 4.3, plt 151 05/19: seen by bedside, awake, comfortable, plt 122 05/20: Pt is awake and comfortable, no events 05/21: Pt is seen in the room, resting in bed, no fevers or chills, wbc 8.7, plt 117 2: Pt is resting in bed, awake, comfortable, no fevers or chills, no acute distress. 05/24: EGD and EUS done today, has no gallbladder stones, only pancreatitis, no events 05/25: no events, dermatitis has improved, off loading of heels, pancreatitis and dka better 05/26: Pt is awake, comfortable, no acute events overnight, hgb 8.6 05/27: seen by bedside, awake, comfortable, no events 05/28: resting in bed, awake, comfortable, no fevers or chills, no acute distress , No need for ERCP per GI, 05/31: Pt is awake and comfortable, no events 06/01: awake, comfortable, denies acute distress. 06/02: seen by bedside, awake, comfortable, no acute distress. wbc 15. Objective Last 24 Hour Vital Signs Date Time Temp Pulse Resp B/P (MAP) Pulse Ox O2 Delivery O2 Flow Rate FiO2 06/02/18 16:00 97.7 75 27 130/66 (87) 96 06/02/18 15:39 72 06/02/18 12:00 129/53 06/02/18 12:00 98.2 66 22 129/53 (78) 96 06/02/18 11:32 65 06/02/18 09:00 Nasal Cannula 4.0 06/02/18 08:42 61 160/90 06/02/18 08:41 61 160/90 06/02/18 08:00 97.9 61 16 160/90 (113) 98 06/02/18 08:00 87 06/02/18 08:00 50 06/02/18 07:33 Bi-pap 50 06/02/18 07:32 100 Bi-pap 50 06/02/18 07:29 85 20 98 Facial 50 06/02/18 05:46 84 19 97 Facial 50 06/02/18 05:40 152/69 06/02/18 04:00 97.9 70 16 152/69 (96) 98 06/02/18 04:00 30 06/02/18 03:57 73 20 96 Facial 50 06/02/18 03:24 81 06/02/18 02:06 142/87 06/02/18 01:22 73 18 98 Facial 50 06/02/18 00:00 30 06/02/18 00:00 97.7 84 20 142/87 (105) 98 06/01/18 23:26 74 06/01/18 23:12 73 24 99 Facial 50 06/01/18 21:37 70 18 100 Bi-pap 50 06/01/18 21:27 69 21 99 Bi-pap 50 06/01/18 21:11 68 23 100 Facial 50 06/01/18 21:10 68 23 Bi-pap 50 06/01/18 21:09 Bi-pap 50 06/01/18 21:09 100 Bi-pap 50 06/01/18 21:00 Nasal Cannula 4.0 06/01/18 20:03 71 145/70 06/01/18 20:00 30 06/01/18 20:00 97.5 71 22 147/67 (93) 100 06/01/18 20:00 72 06/01/18 19:02 72 20 100 Facial 50 06/01/18 17:11 88 20 100 Facial 40 Intake and Output 06/01/18 06/02/18 18:59 06:59 Intake Total 5 ml 187.5 ml Output Total 400 ml 200 ml Balance -395 ml -12.5 ml Intake Oral 5 ml 50 ml IV Total 137.5 ml Output Urine Total 400 ml 200 ml # Voids 1 Laboratory Tests 06/02/18 03:40: White Blood Count 15.8H, Red Blood Count 3.15L, Hemoglobin 8.7L, Hematocrit 28.1L, Mean Corpuscular Volume 89, Mean Corpuscular Hemoglobin 27.6, Mean Corpuscular Hemoglobin Concent 30.8L, Red Cell Distribution Width 22.4H, Platelet Count 407, Mean Platelet Volume 4.5L, Neutrophils (%) (Auto) , Lymphocytes (%) (Auto) , Monocytes (%) (Auto) , Eosinophils (%) (Auto) , Basophils (%) (Auto) , Differential Total Cells Counted 100, Neutrophils % ( Manual) 83H, Lymphocytes % (Manual) 3L, Monocytes % (Manual) 6, Eosinophils % ( Manual) 0, Basophils % (Manual) 0, Band Neutrophils 8, Platelet Estimate Adequate, Platelet Morphology Normal, Polychromasia 1+, Hypochromasia 1+, Anisocytosis 2+, Sodium Level 145, Potassium Level 4.5, Chloride Level 109H, Carbon Dioxide Level 18L, Anion Gap 18H, Blood Urea Nitrogen 21H, Creatinine 1.6H, Estimat Glomerular Filtration Rate 31.8, Glucose Level 168H, Calcium Level 8.7 06/02/18 10:37: Arterial Blood pH 7.488H, Arterial Blood Partial Pressure CO2 32.6L, Arterial Blood Partial Pressure O2 70.1L, Arterial Blood HCO3 24.2, Arterial Blood Oxygen Saturation 92.9L, Arterial Blood Base Excess 1.0, Marlon Test Positive Height (Feet): 4 Height (Inches): 10.00 Weight (Pounds): 176 Objective PHYSICAL EXAMINATION: GENERAL: Pleasant Armenian woman seen in the ICU. HEENT: Normocephalic and atraumatic. Sclerae anicteric. Oropharynx clear. NECK: Supple. CHEST: Clear to auscultation. CARDIOVASCULAR: Revealed regular rate. ABDOMEN: Soft. Good bowel sounds. There is no organomegaly or tenderness. Anterior chest and abdomen scars were as expected. EXTREMITIES: Revealed no edema. Armando Bowen MD Jun 02, 2018 17:09
--- NOTE | 2018-06-02 19:08 | NUR ---
HAND-OFF: Report given to Norman Abel RN.
--- NOTE | 2018-06-02 19:09 | NUR ---
NURSE NOTES: Received report from WAYNE Andrews. Patient seen in bed in baires position with oxygen 4L/,min via NC, sp02 is 97%. 2 family members by bed side. Patient is alert, verbally responsive, able to make needs known. Denies any pain at this time. PICC line to left upper arm is intact. No acute distress present at this time. bed is in lowest position. Call light is within easy reach while in bed. Will continue to monitor.
[2018-06-02] MEDS ORDERED: Milk of Magnesia 30ml Ud ORAL SCH ×2 (19:25→20:30)
[2018-06-02 20:00] VITALS: BP 135/68
[2018-06-02] MEDS: Dyna-Hex 2% Top Sol 2oz TOPIC SCH (20:13)
[2018-06-02] MEDS: LORazepam 1mg tab ORAL PRN (20:13)
[2018-06-02] MEDS: OLANZapine 2.5mg tab ORAL SCH ×2 (20:14→21:00)
[2018-06-02] MEDS ORDERED: Milk of Magnesia 30ml Ud ORAL PRN (20:34)
--- NOTE | 2018-06-02 20:45 | NUR ---
NURSE NOTES: pt transferred to telemetry unit from SDU without incident, received endorsement from Milton BLACK, pt with no s/s of acute distress. will continue to monitor pt. Addendum: 06/03/18 at 0118 by RONNIE SHAY RN RN Received report from WAYNE Austin.
--- NOTE | 2018-06-02 20:45 | NUR ---
HAND-OFF: Report given to WAYNE Herrera. Patient was transferred to tele room 212 in stable condition in bed with 3 staff members. Patient continues on Ozygen 4L/min via N/C. No acute respiratory distress is noted. PICC line to left arn is intact. Denies any pain. patient's bed is in lowest position. call light within reach. Heart monitor tele box is on. Addendum: 06/02/18 at 2122 by Norman Ruiz RN HAND-OFF: Report given to WAYNE Herrera. Patient was transferred to tele room 212 in stable condition in bed with 3 staff members. Patient continues on Oxygen 4L/min via N/C. No acute respiratory distress is noted. PICC line to left arn is intact. Denies any pain. patient's bed is in lowest position. call light within reach. Heart monitor tele box is on.
[2018-06-02] MEDS ORDERED: Metoprolol 5mg/5ml Inj IVP PRN (21:00)
--- NOTE | 2018-06-02 23:28 | Cardiology Progress Note ---
Assessment/Plan Assessment/Plan 1. Paroxysmal atrial fibrillation, in SR now, due to CHADS-VASC score of 5, continue enoxaparin and metoprolol. 2. Hx of CAD, s/p CABG, ASA , atorvastatin and metoprolol. No wall motion abnormalities on Echo. LVEF ~55%. 3. Sinus tachycardia, resolved, due to hypovolemia. 4. DKA, resolved. 5. DM, non-compliant with medications. 6. HTN, well controlled, continue amlodipine, metoprolol and hydralazine. 7. Severe pulmonary HTN. 8. MAMADOU. Subjective Subjective Sinus rhythm at rate of 75. On NC FiO2 36%. Objective Last 24 Hour Vital Signs Date Time Temp Pulse Resp B/P (MAP) Pulse Ox O2 Delivery O2 Flow Rate FiO2 06/02/18 21:00 Nasal Cannula 4.0 06/02/18 21:00 75 136/68 06/02/18 20:14 75 136/68 06/02/18 20:00 97.9 80 18 135/68 (90) 94 06/02/18 20:00 85 06/02/18 19:25 Nasal Cannula 4.0 36 06/02/18 19:25 75 24 96 4.0 36 06/02/18 19:24 97 Nasal Cannula 4.0 36 06/02/18 17:15 130/66 06/02/18 17:15 75 130/66 06/02/18 16:00 97.7 75 27 130/66 (87) 96 06/02/18 15:39 72 06/02/18 12:00 129/53 06/02/18 12:00 98.2 66 22 129/53 (78) 96 06/02/18 11:32 65 06/02/18 09:00 Nasal Cannula 4.0 06/02/18 08:42 61 160/90 06/02/18 08:41 61 160/90 06/02/18 08:00 97.9 61 16 160/90 (113) 98 06/02/18 08:00 87 06/02/18 08:00 50 06/02/18 07:33 Bi-pap 50 06/02/18 07:32 100 Bi-pap 50 06/02/18 07:29 85 20 98 Facial 50 06/02/18 05:46 84 19 97 Facial 50 06/02/18 05:40 152/69 2/13/19 04:00 97.9 70 16 152/69 (96) 98 06/02/18 04:00 30 06/02/18 03:57 73 20 96 Facial 50 06/02/18 03:24 81 06/02/18 02:06 142/87 06/02/18 01:22 73 18 98 Facial 50 06/02/18 00:00 30 06/02/18 00:00 97.7 84 20 142/87 (105) 98 06/01/18 23:26 74 Intake and Output 06/01/18 06/02/18 19:00 07:00 Intake Total 5 ml 187.5 ml Output Total 400 ml 200 ml Balance -395 ml -12.5 ml Intake Oral 5 ml 50 ml IV Total 137.5 ml Output Urine Total 400 ml 200 ml # Voids 1 2D Echo: EF55%,Mild LVH,Mod MR,Mild AR,RVSP 67 mmHg (severe PHT),Restrictive LV phy Laboratory Tests Test 06/02/18 03:40 06/02/18 10:37 White Blood Count 15.8 K/UL (4.8-10.8) H Red Blood Count 3.15 M/UL (4.20-5.40) L Hemoglobin 8.7 G/DL (12.0-16.0) L Hematocrit 28.1 % (37.0-47.0) L Mean Corpuscular Volume 89 FL (80-99) Mean Corpuscular Hemoglobin 27.6 PG (27.0-31.0) Mean Corpuscular Hemoglobin Concent 30.8 G/DL (32.0-36.0) L Red Cell Distribution Width 22.4 % (11.6-14.8) H Platelet Count 407 K/UL (150-450) Mean Platelet Volume 4.5 FL (6.5-10.1) L Neutrophils (%) (Auto) % (45.0-75.0) Lymphocytes (%) (Auto) % (20.0-45.0) Monocytes (%) (Auto) % (1.0-10.0) Eosinophils (%) (Auto) % (0.0-3.0) Basophils (%) (Auto) % (0.0-2.0) Differential Total Cells Counted 100 Neutrophils % (Manual) 83 % (45-75) H Lymphocytes % (Manual) 3 % (20-45) L Monocytes % (Manual) 6 % (1-10) Eosinophils % (Manual) 0 % (0-3) Basophils % (Manual) 0 % (0-2) Band Neutrophils 8 % (0-8) Platelet Estimate Adequate Platelet Morphology Normal Polychromasia 1+ Hypochromasia 1+ Anisocytosis 2+ Sodium Level 145 MMOL/L (136-145) Potassium Level 4.5 MMOL/L (3.5-5.1) Chloride Level 109 MMOL/L (98-107) H Carbon Dioxide Level 18 MMOL/L (21-32) L Anion Gap 18 mmol/L (5-15) H Blood Urea Nitrogen 21 mg/dL (7-18) H Creatinine 1.6 MG/DL (0.55-1.30) H Estimat Glomerular Filtration Rate 31.8 mL/min (>60) Glucose Level 168 MG/DL (74-106) H Calcium Level 8.7 MG/DL (8.5-10.1) Arterial Blood pH 7.488 (7.350-7.450) Arterial Blood Partial Pressure CO2 32.6 mmHg (35.0-45.0) L Arterial Blood Partial Pressure O2 70.1 mmHg (75.0-100.0) L Arterial Blood HCO3 24.2 mmol/L (22.0-26.0) Arterial Blood Oxygen Saturation 92.9 % (95-100) L Arterial Blood Base Excess 1.0 (-2-2) Marlon Test Positive Microbiology Date/Time Source Procedure Growth Status 06/02/18 01:35 Sputum Gram Stain - Final Resulted 06/02/18 01:35 Sputum Sputum Culture Pending Resulted Objective HEENT: Normocephalic, atraumatic, Pupils equally reactive to light and accommodation, EOMI. NECK: No JVD, no carotid bruit. CARDIOVASCULAR: Regular rate and rhythm. No murmurs, gallops or rubs. LUNGS: Clear to auscultation bilaterally. No crackles or Rhonchi. ABDOMEN: Soft and nontender. No organomegaly, + BS. EXTREMITIES: No cyanosis, clubbing or edema. Miller Mckeon MD Jun 02, 2018 23:27
[2018-06-03] VITALS: BP 135/60
[2018-06-03] MEDS: HydrALAZINE 25mg tab ORAL SCH ×4 (00:55→18:10)
--- NOTE | 2018-06-03 01:24 | NUR ---
NURSE NOTES: pt in bed sleeping no s/s of sob or acute distress. will continue to monitor.
[2018-06-03 04:00] VITALS: BP 138/78
--- NOTE | 2018-06-03 04:26 | NUR ---
pt in bed sleeping no s/s of sob or acute distress. will continue to monitor.
[2018-06-03] MEDS: Piperacillin/Tazobactam 3.375 GM in NS 110 ML IV SCH ×3 (05:40→21:55)
[2018-06-03] MEDS: NovoLOG Insulin Flexpen SUBQ SCH ×4 (05:46→21:33)
[2018-06-03 07:28] LABS: HEMATOCRIT 25.7 % (37.0-47.0); HEMOGLOBIN 8.1 G/DL (12.0-16.0); MEAN CORPUSCULAR VOLUME 88 FL (80-99); PLATELET COUNT 337 K/UL (150-450); RED BLOOD COUNT 2.93 M/UL (4.20-5.40); RED CELL DISTRIBUTION WIDTH 22.5 % (11.6-14.8); WHITE BLOOD COUNT 11.8 K/UL (4.8-10.8)
--- NOTE | 2018-06-03 07:30 | NUR ---
HAND-OFF: Report given to WAYNE Murillo pt in bed resting. no acute distress during my shift. all needs met during my shift.
--- NOTE | 2018-06-03 07:41 | NUR ---
NURSE NOTES: Pt received from WAYNE Herrera and WAYNE Salazar alert and oriented x2, sitting up and eating breakfast with no s/s of acute distress. IV site asymptomatic and patent. On 4L NC, saturating at 98% with no s/s of SOB. Bed in lowest position, call light and belongings within reach.
[2018-06-03 07:47] LABS: ALANINE AMINOTRANSFERASE 51 U/L (12-78); ALBUMIN 2.2 G/DL (3.4-5.0); ALBUMIN/GLOBULIN RATIO 0.5 (1.0-2.7); ALKALINE PHOSPHATASE 375 U/L (46-116); ANION GAP 16 mmol/L (5-15); ASPARTATE AMINO TRANSFERASE 39 U/L (15-37); BILIRUBIN,TOTAL 1.2 MG/DL (0.2-1.0); BLOOD UREA NITROGEN 23 mg/dL (7-18); CALCIUM 7.9 MG/DL (8.5-10.1); CARBON DIOXIDE 22 MMOL/L (21-32); CHLORIDE 110 MMOL/L (98-107); CREATININE 1.8 MG/DL (0.55-1.30); POTASSIUM 3.6 MMOL/L (3.5-5.1); SODIUM 148 MMOL/L (136-145)
[2018-06-03 07:48] LABS: BILIRUBIN,DIRECT 0.7 MG/DL (0.0-0.3)
[2018-06-03 08:00] VITALS: BP 145/66
--- NOTE | 2018-06-03 08:17 | General Progress Note ---
Assessment/Plan Assessment/Plan Impression Diabetic ketoacidosis Anemia Transaminitis of unclear etiology Severe protein calorie malnutrition Evidence of pancreatitis, better Acute renal failure, improved Hyperglycemia Diabetes Hyponatremia Metabolic acidosis Hypercholesterolemia fever oral ulcers afib with RVR leukopenia pancreatitis CVA dc planning on antibiotics on lovenox ? eliquis may need transfusion care noted; will need rehab impression, plan, and exam edited and reviewed in detail care discussed with RN Subjective Allergies: Coded Allergies: SHELLFISH DERIVED (Verified Allergy, Unknown, swelling and itchiness, 05/14) Subjective care noted weak comfortable slightly improved Objective Last 24 Hour Vital Signs Date Time Temp Pulse Resp B/P (MAP) Pulse Ox O2 Delivery O2 Flow Rate FiO2 06/03/18 07:23 92 Nasal Cannula 4.0 36 06/03/18 07:23 Nasal Cannula 4.0 36 06/03/18 05:39 135/62 06/03/18 04:00 96.8 76 18 138/78 (98) 76 06/03/18 04:00 71 06/03/18 00:55 135/60 06/03/18 00:00 97.7 72 18 135/60 (85) 93 06/03/18 00:00 70 06/02/18 21:00 Nasal Cannula 4.0 06/02/18 21:00 75 136/68 06/02/18 20:14 75 136/68 06/02/18 20:00 97.9 80 18 135/68 (90) 94 06/02/18 20:00 85 06/02/18 19:25 Nasal Cannula 4.0 36 06/02/18 19:25 75 24 96 4.0 36 06/02/18 19:24 97 Nasal Cannula 4.0 36 06/02/18 17:15 130/66 06/02/18 17:15 75 130/66 06/02/18 16:00 97.7 75 27 130/66 (87) 96 06/02/18 15:39 72 06/02/18 12:00 129/53 06/02/18 12:00 98.2 66 22 129/53 (78) 96 06/02/18 11:32 65 06/02/18 09:00 Nasal Cannula 4.0 06/02/18 08:42 61 160/90 06/02/18 08:41 61 160/90 Intake and Output 06/02/18 06/03/18 19:00 07:00 Intake Total 290.0 ml 146.7 ml Output Total 200 ml Balance 90.0 ml 146.7 ml Intake Oral 180 ml IV Total 110.0 ml 146.7 ml Output Urine Total 200 ml # Voids 4 # Bowel Movements 1 2 Laboratory Tests 06/02/18 10:37: Arterial Blood pH 7.488H, Arterial Blood Partial Pressure CO2 32.6L, Arterial Blood Partial Pressure O2 70.1L, Arterial Blood HCO3 24.2, Arterial Blood Oxygen Saturation 92.9L, Arterial Blood Base Excess 1.0, Marlon Test Positive 06/03/18 06:00: White Blood Count 11.8H, Red Blood Count 2.93L, Hemoglobin 8.1L, Hematocrit 25.7L, Mean Corpuscular Volume 88, Mean Corpuscular Hemoglobin 27.5, Mean Corpuscular Hemoglobin Concent 31.3L, Red Cell Distribution Width 22.5H, Platelet Count 337, Mean Platelet Volume 6.3L, Neutrophils (%) (Auto) , Lymphocytes (%) (Auto) , Monocytes (%) (Auto) , Eosinophils (%) (Auto) , Basophils (%) (Auto) , Neutrophils % (Manual) [Pending], Lymphocytes % (Manual) [Pending], Platelet Estimate [Pending], Platelet Morphology [Pending], Sodium Level 148H, Potassium Level 3.6, Chloride Level 110H, Carbon Dioxide Level 22, Anion Gap 16H, Blood Urea Nitrogen 23H, Creatinine 1.8H, Estimat Glomerular Filtration Rate 27.8, Glucose Level 208H, Calcium Level 7.9L, Total Bilirubin 1.2H, Direct Bilirubin 0.7H, Aspartate Amino Transf (AST/SGOT) 39H, Alanine Aminotransferase (ALT/SGPT) 51, Alkaline Phosphatase 375H, Total Protein 6.7, Albumin 2.2L, Globulin 4.5, Albumin/Globulin Ratio 0.5L, Random Vancomycin Level 4.7 Height (Feet): 4 Height (Inches): 10.00 Weight (Pounds): 173 Objective WDWN more alert clear breath sounds bilaterally without rhonchi or wheeze S1S2 RRR without MRG NABS nontender no HSM no CCE remains weak alert Jesus Lew MD Jun 03, 2018 08:17
[2018-06-03] MEDS ORDERED: Enoxaparin 80mg Inj SUBQ SCH (09:00)
[2018-06-03] MEDS: Metoprolol Tartrate 50mg tab ORAL SCH ×2 (09:17→21:29)
[2018-06-03] MEDS: Aspirin Baby 81mg ORAL SCH (09:18)
[2018-06-03] MEDS ORDERED: Vancomycin 1250mg/D5W 275ml IVPB ONE (09:30)
--- NOTE | 2018-06-03 10:16 | GI Progress Note ---
Assessment/Plan Problems: (1) Pancreatitis ICD Codes: K85.90 - Acute pancreatitis without necrosis or infection, unspecified SNOMED: 64386196 Qualifiers: Qualified Codes: K85.90 - Acute pancreatitis without necrosis or infection, unspecified (2) DKA (diabetic ketoacidosis) ICD Codes: E13.10 - Other specified diabetes mellitus with ketoacidosis without coma SNOMED: 722475298, 36476131 Qualifiers: Qualified Codes: E10.10 - Type 1 diabetes mellitus with ketoacidosis without coma (3) Diabetes ICD Codes: E11.9 - Type 2 diabetes mellitus without complications SNOMED: 45569187 Status: stable Status Narrative Discussed with Dr. Benito. Assessment/Plan Status post EUS summary of findings 1. Pancreatitis, most probably acute, without any pancreatic duct dilatation or mass. 2. No evidence of any common bile duct dilatation was seen with common bile duct stone. 3. Gallbladder wall thickening, nonspecific. 4. 1 cm kristina hepatis lymph node, nonspecific. Elevated lipase levels, downtrending RECOMMENDATIONS: Advance to soft renal diet No need for ERCP Pain management Trend lipase Zofran as needed Follow-up labs The patient was seen and examined at bedside and all new and available data was reviewed in the patients chart. I agree with the above findings, impression and plan. (Patient seen earlier today. Signature stamp does not reflect patient encounter time.). - Neeraj Benito MD Subjective Subjective denies any abdominal pain Tolerating diet Objective Last 24 Hour Vital Signs Date Time Temp Pulse Resp B/P (MAP) Pulse Ox O2 Delivery O2 Flow Rate FiO2 06/03/18 09:18 79 145/66 06/03/18 09:17 79 145/66 06/03/18 07:23 92 Nasal Cannula 4.0 36 06/03/18 07:23 Nasal Cannula 4.0 36 06/03/18 05:39 135/62 06/03/18 04:00 96.8 76 18 138/78 (98) 76 06/03/18 04:00 71 06/03/18 00:55 135/60 06/03/18 00:00 97.7 72 18 135/60 (85) 93 06/03/18 00:00 70 06/02/18 21:00 Nasal Cannula 4.0 06/02/18 21:00 75 136/68 06/02/18 20:14 75 136/68 06/02/18 20:00 97.9 80 18 135/68 (90) 94 06/02/18 20:00 85 06/02/18 19:25 Nasal Cannula 4.0 36 06/02/18 19:25 75 24 96 4.0 36 06/02/18 19:24 97 Nasal Cannula 4.0 36 06/02/18 17:15 130/66 06/02/18 17:15 75 130/66 06/02/18 16:00 97.7 75 27 130/66 (87) 96 06/02/18 15:39 72 06/02/18 12:00 129/53 06/02/18 12:00 98.2 66 22 129/53 (78) 96 06/02/18 11:32 65 Intake and Output 06/02/18 06/03/18 19:00 07:00 Intake Total 290.0 ml 146.7 ml Output Total 200 ml Balance 90.0 ml 146.7 ml Intake Oral 180 ml IV Total 110.0 ml 146.7 ml Output Urine Total 200 ml # Voids 4 # Bowel Movements 1 2 Laboratory Tests Test 06/02/18 10:37 06/03/18 06:00 Arterial Blood pH 7.488 (7.350-7.450) Arterial Blood Partial Pressure CO2 32.6 mmHg (35.0-45.0) L Arterial Blood Partial Pressure O2 70.1 mmHg (75.0-100.0) L Arterial Blood HCO3 24.2 mmol/L (22.0-26.0) Arterial Blood Oxygen Saturation 92.9 % (95-100) L Arterial Blood Base Excess 1.0 (-2-2) Marlon Test Positive White Blood Count 11.8 K/UL (4.8-10.8) H Red Blood Count 2.93 M/UL (4.20-5.40) L Hemoglobin 8.1 G/DL (12.0-16.0) L Hematocrit 25.7 % (37.0-47.0) L Mean Corpuscular Volume 88 FL (80-99) Mean Corpuscular Hemoglobin 27.5 PG (27.0-31.0) Mean Corpuscular Hemoglobin Concent 31.3 G/DL (32.0-36.0) L Red Cell Distribution Width 22.5 % (11.6-14.8) H Platelet Count 337 K/UL (150-450) Mean Platelet Volume 6.3 FL (6.5-10.1) L Neutrophils (%) (Auto) % (45.0-75.0) Lymphocytes (%) (Auto) % (20.0-45.0) Monocytes (%) (Auto) % (1.0-10.0) Eosinophils (%) (Auto) % (0.0-3.0) Basophils (%) (Auto) % (0.0-2.0) Differential Total Cells Counted 100 Neutrophils % (Manual) 90 % (45-75) H Lymphocytes % (Manual) 5 % (20-45) L Monocytes % (Manual) 5 % (1-10) Eosinophils % (Manual) 0 % (0-3) Basophils % (Manual) 0 % (0-2) Band Neutrophils 0 % (0-8) Platelet Estimate Adequate Platelet Morphology Normal Red Blood Cell Morphology Polychromasia 1+ Hypochromasia 1+ Anisocytosis 2+ Sodium Level 148 MMOL/L (136-145) H Potassium Level 3.6 MMOL/L (3.5-5.1) Chloride Level 110 MMOL/L (98-107) H Carbon Dioxide Level 22 MMOL/L (21-32) Anion Gap 16 mmol/L (5-15) H Blood Urea Nitrogen 23 mg/dL (7-18) H Creatinine 1.8 MG/DL (0.55-1.30) H Estimat Glomerular Filtration Rate 27.8 mL/min (>60) Glucose Level 208 MG/DL (74-106) H Calcium Level 7.9 MG/DL (8.5-10.1) L Total Bilirubin 1.2 MG/DL (0.2-1.0) H Direct Bilirubin 0.7 MG/DL (0.0-0.3) H Aspartate Amino Transf (AST/SGOT) 39 U/L (15-37) H Alanine Aminotransferase (ALT/SGPT) 51 U/L (12-78) Alkaline Phosphatase 375 U/L (46-116) H Total Protein 6.7 G/DL (6.4-8.2) Albumin 2.2 G/DL (3.4-5.0) L Globulin 4.5 g/dL Albumin/Globulin Ratio 0.5 (1.0-2.7) L Random Vancomycin Level 4.7 ug/mL Height (Feet): 4 Height (Inches): 10.00 Weight (Pounds): 173 General Appearance: WD/WN, no apparent distress, alert Cardiovascular: normal rate Respiratory/Chest: normal breath sounds, no respiratory distress Abdominal Exam: normal bowel sounds, non tender, soft Extremities: normal range of motion, non-tender Ros Berry NP Jun 03, 2018 10:16
--- NOTE | 2018-06-03 11:15 | NUR ---
P.T Weekly Progress Notes: late entry 06/02/18 Pt seen for total of 7 tx sessions since the day of P.T evaluation. Pt. presented increased swelling on BLE and LUE and c/o severe pain on B feet and ankle aggravated by touch pressure and attempt to bear weight. Significant weakness and decline in activity tolerance was noted this past few therapy sessions. BLE/BUE ROM are WFL, BUE strength : grossly 3- to 3/5, BLE strength:grossly 3-/5 to 3/5 ( LLE slightly weaker than RLE ). Pt currently require MAX A x 1 and extended time depending on activity tolerance for rolling/turning and supine to/from sitting. Pt able to sit unsupported at the EOB for 10-15 mins but not able to stand due to fear falling and severe B foot and ankle pain which has been address to nursing. Will continue to with POC with progression of activities as tolerated. Recommending SNF for further rehab VS home with P.T at D/C.
--- NOTE | 2018-06-03 11:33 | Infectious Diseases Prog Note ---
Assessment/Plan Assessment/Plan A 1. pancreatitis, EUS negative 2. herpes of lip 3. diabetic ketoacidosis 4. increased LFT 5. fever 6. hypertension 7. Pancytopenia 10. Fungal UTI P 1. continue Zosyn & Vancomycin Subjective ROS Limited/Unobtainable: Yes Constitutional: Reports: no symptoms Respiratory: Reports: shortness of breath Cardiovascular: Reports: no symptoms Gastrointestinal/Abdominal: Reports: no symptoms Genitourinary: Reports: no symptoms Allergies: Coded Allergies: SHELLFISH DERIVED (Verified Allergy, Unknown, swelling and itchiness, 05/14) Objective Vital Signs Last 24 Hour Vital Signs Date Time Temp Pulse Resp B/P (MAP) Pulse Ox O2 Delivery O2 Flow Rate FiO2 06/03/18 09:18 79 145/66 06/03/18 09:17 79 145/66 06/03/18 08:00 76 06/03/18 08:00 97.7 79 16 145/66 (92) 79 06/03/18 07:23 92 Nasal Cannula 4.0 36 06/03/18 07:23 Nasal Cannula 4.0 36 06/03/18 05:39 135/62 06/03/18 04:00 96.8 76 18 138/78 (98) 76 06/03/18 04:00 71 06/03/18 00:55 135/60 06/03/18 00:00 97.7 72 18 135/60 (85) 93 06/03/18 00:00 70 06/02/18 21:00 Nasal Cannula 4.0 06/02/18 21:00 75 136/68 06/02/18 20:14 75 136/68 06/02/18 20:00 97.9 80 18 135/68 (90) 94 06/02/18 20:00 85 06/02/18 19:25 Nasal Cannula 4.0 36 06/02/18 19:25 75 24 96 4.0 36 06/02/18 19:24 97 Nasal Cannula 4.0 36 06/02/18 17:15 130/66 06/02/18 17:15 75 130/66 06/02/18 16:00 97.7 75 27 130/66 (87) 96 06/02/18 15:39 72 06/02/18 12:00 129/53 06/02/18 12:00 98.2 66 22 129/53 (78) 96 2/13/19 11:32 65 Height (Feet): 4 Height (Inches): 10.00 Weight (Pounds): 173 HEENT: mucous membranes moist Respiratory/Chest: lungs clear Cardiovascular: normal rate, other - left arm PICC line Abdomen: soft, non tender Extremities: other - edema of left arm Neurologic/Psychiatric: alert, responsive Microbiology Date/Time Source Procedure Growth Status 06/02/18 01:35 Sputum Gram Stain - Final Resulted 06/02/18 01:35 Sputum Culture - Preliminary Gram Negative Bacillus 1 Resulted Laboratory Tests Test 06/03/18 06:00 White Blood Count 11.8 K/UL (4.8-10.8) H Red Blood Count 2.93 M/UL (4.20-5.40) L Hemoglobin 8.1 G/DL (12.0-16.0) L Hematocrit 25.7 % (37.0-47.0) L Mean Corpuscular Volume 88 FL (80-99) Mean Corpuscular Hemoglobin 27.5 PG (27.0-31.0) Mean Corpuscular Hemoglobin Concent 31.3 G/DL (32.0-36.0) L Red Cell Distribution Width 22.5 % (11.6-14.8) H Platelet Count 337 K/UL (150-450) Mean Platelet Volume 6.3 FL (6.5-10.1) L Neutrophils (%) (Auto) % (45.0-75.0) Lymphocytes (%) (Auto) % (20.0-45.0) Monocytes (%) (Auto) % (1.0-10.0) Eosinophils (%) (Auto) % (0.0-3.0) Basophils (%) (Auto) % (0.0-2.0) Differential Total Cells Counted 100 Neutrophils % (Manual) 90 % (45-75) H Lymphocytes % (Manual) 5 % (20-45) L Monocytes % (Manual) 5 % (1-10) Eosinophils % (Manual) 0 % (0-3) Basophils % (Manual) 0 % (0-2) Band Neutrophils 0 % (0-8) Platelet Estimate Adequate Platelet Morphology Normal Red Blood Cell Morphology Polychromasia 1+ Hypochromasia 1+ Anisocytosis 2+ Sodium Level 148 MMOL/L (136-145) H Potassium Level 3.6 MMOL/L (3.5-5.1) Chloride Level 110 MMOL/L (98-107) H Carbon Dioxide Level 22 MMOL/L (21-32) Anion Gap 16 mmol/L (5-15) H Blood Urea Nitrogen 23 mg/dL (7-18) H Creatinine 1.8 MG/DL (0.55-1.30) H Estimat Glomerular Filtration Rate 27.8 mL/min (>60) Glucose Level 208 MG/DL (74-106) H Calcium Level 7.9 MG/DL (8.5-10.1) L Total Bilirubin 1.2 MG/DL (0.2-1.0) H Direct Bilirubin 0.7 MG/DL (0.0-0.3) H Aspartate Amino Transf (AST/SGOT) 39 U/L (15-37) H Alanine Aminotransferase (ALT/SGPT) 51 U/L (12-78) Alkaline Phosphatase 375 U/L (46-116) H Total Protein 6.7 G/DL (6.4-8.2) Albumin 2.2 G/DL (3.4-5.0) L Globulin 4.5 g/dL Albumin/Globulin Ratio 0.5 (1.0-2.7) L Random Vancomycin Level 4.7 ug/mL Current Medications Medications (Trade) Dose Ordered Sig/Ellen Route PRN Reason Start Time Stop Time Status Last Admin Dose Admin Acetaminophen (Tylenol) 650 mg Q4H PRN ORAL Mild Pain/Temp > 100.5 06/02/18 20:32 07/02/18 20:31 Al Hydroxide/Mg Hydroxide (Mylanta) 30 ml Q6H PRN ORAL Abdominal cramps 06/02/18 20:34 07/02/18 20:33 Amlodipine Besylate (Norvasc) 5 mg BID ORAL 06/03/18 09:00 06/28/18 08:59 06/03/18 09:18 Aspirin (ASA) 81 mg DAILY ORAL 06/03/18 09:00 06/24/18 08:59 06/03/18 09:18 Chlorhexidine Gluconate (Leora-Hex 2%) 1 applic DAILY@1999 TOPIC 06/03/18 20:00 06/24/18 19:59 Dextrose (Dextrose 50%) 25 ml Q30M PRN IV Hypoglycemia 06/02/18 20:45 06/13/18 10:14 Dextrose (Dextrose 50%) 50 ml Q30M PRN IV Hypoglycemia 06/02/18 20:45 06/13/18 10:14 Enoxaparin Sodium (Lovenox) 80 mg Q12HR SUBQ 06/03/18 09:00 07/03/18 08:59 06/03/18 09:19 Haloperidol Lactate (Haldol) 5 mg Q6H PRN IM Agitation 06/02/18 20:33 07/02/18 20:32 Hydralazine HCl (Apresoline) 25 mg Q6HR ORAL 06/03/18 00:00 07/02/18 00:00 06/03/18 05:39 Insulin Aspart (NovoLOG) BEFORE MEALS AND HS SUBQ 06/02/18 21:00 06/13/18 11:29 06/03/18 05:46 Lorazepam (Ativan) 1 mg Q6H PRN ORAL For Anxiety 06/02/18 20:34 06/09/18 20:33 Magnesium Hydroxide (Mom) 30 ml DAILYPRN PRN ORAL Constipation 06/02/18 20:34 07/02/18 20:33 Metoprolol Tartrate (Lopressor) 5 mg Q2H PRN IVP For High Blood Pressure 06/02/18 21:00 06/23/18 16:59 Metoprolol Tartrate (Lopressor) 50 mg Q12HR ORAL 06/02/18 21:00 06/26/18 20:59 06/03/18 09:17 Olanzapine (ZyPREXA) 2.5 mg BEDTIME ORAL 06/02/18 21:00 07/01/18 20:59 06/02/18 21:00 Pantoprazole (Protonix) 40 mg ACBREAKFAST ORAL 06/03/18 06:30 06/26/18 06:29 06/03/18 05:39 Piperacillin Sod/ Tazobactam Sod 3.375 gm/Sodium Chloride 110 ml @ 27.5 mls/hr EVERY 8 HOURS IV 06/02/18 22:00 06/05/18 10:59 06/03/18 05:40 Vancomycin HCl (Vanco rx to dose) 1 ea DAILY PRN MISC Per rx protocol 06/03/18 09:00 07/01/18 11:14 Mahesh Tejada MD Jun 03, 2018 11:33
[2018-06-03 12:00] VITALS: BP 143/68
--- NOTE | 2018-06-03 12:02 | General Progress Note ---
Assessment/Plan Problem List: (1) Acute metabolic encephalopathy ICD Codes: G93.41 - Metabolic encephalopathy SNOMED: 46250472, 322400143 Status: stable Assessment/Plan Zyprexa 2.5mg po qhs Haldol prn limit using benzos may increase risk of aspiration restraints. Subjective Neurologic/Psychiatric: Reports: anxiety Allergies: Coded Allergies: SHELLFISH DERIVED (Verified Allergy, Unknown, swelling and itchiness, 05/14) Subjective less agitated calmer less confused Objective Last 24 Hour Vital Signs Date Time Temp Pulse Resp B/P (MAP) Pulse Ox O2 Delivery O2 Flow Rate FiO2 06/03/18 09:18 79 145/66 06/03/18 09:17 79 145/66 06/03/18 08:00 76 06/03/18 08:00 97.7 79 16 145/66 (92) 79 06/03/18 07:23 92 Nasal Cannula 4.0 36 06/03/18 07:23 Nasal Cannula 4.0 36 06/03/18 05:39 135/62 06/03/18 04:00 96.8 76 18 138/78 (98) 76 06/03/18 04:00 71 06/03/18 00:55 135/60 06/03/18 00:00 97.7 72 18 135/60 (85) 93 06/03/18 00:00 70 06/02/18 21:00 Nasal Cannula 4.0 06/02/18 21:00 75 136/68 06/02/18 20:14 75 136/68 06/02/18 20:00 97.9 80 18 135/68 (90) 94 06/02/18 20:00 85 06/02/18 19:25 Nasal Cannula 4.0 36 06/02/18 19:25 75 24 96 4.0 36 06/02/18 19:24 97 Nasal Cannula 4.0 36 06/02/18 17:15 130/66 06/02/18 17:15 75 130/66 06/02/18 16:00 97.7 75 27 130/66 (87) 96 06/02/18 15:39 72 Intake and Output 06/02/18 06/03/18 19:00 07:00 Intake Total 290.0 ml 146.7 ml Output Total 200 ml Balance 90.0 ml 146.7 ml Intake Oral 180 ml IV Total 110.0 ml 146.7 ml Output Urine Total 200 ml # Voids 4 # Bowel Movements 1 2 Laboratory Tests 06/03/18 06:00: White Blood Count 11.8H, Red Blood Count 2.93L, Hemoglobin 8.1L, Hematocrit 25.7L, Mean Corpuscular Volume 88, Mean Corpuscular Hemoglobin 27.5, Mean Corpuscular Hemoglobin Concent 31.3L, Red Cell Distribution Width 22.5H, Platelet Count 337, Mean Platelet Volume 6.3L, Neutrophils (%) (Auto) , Lymphocytes (%) (Auto) , Monocytes (%) (Auto) , Eosinophils (%) (Auto) , Basophils (%) (Auto) , Differential Total Cells Counted 100, Neutrophils % ( Manual) 90H, Lymphocytes % (Manual) 5L, Monocytes % (Manual) 5, Eosinophils % ( Manual) 0, Basophils % (Manual) 0, Band Neutrophils 0, Platelet Estimate Adequate, Platelet Morphology Normal, Red Blood Cell Morphology , Polychromasia 1+, Hypochromasia 1+, Anisocytosis 2+, Sodium Level 148H, Potassium Level 3.6, Chloride Level 110H, Carbon Dioxide Level 22, Anion Gap 16H, Blood Urea Nitrogen 23H, Creatinine 1.8H, Estimat Glomerular Filtration Rate 27.8, Glucose Level 208H, Calcium Level 7.9L, Total Bilirubin 1.2H, Direct Bilirubin 0.7H, Aspartate Amino Transf (AST/SGOT) 39H, Alanine Aminotransferase (ALT/SGPT) 51, Alkaline Phosphatase 375H, Total Protein 6.7, Albumin 2.2L, Globulin 4.5, Albumin/Globulin Ratio 0.5L, Random Vancomycin Level 4.7 Height (Feet): 4 Height (Inches): 10.00 Weight (Pounds): 173 General Appearance: WD/WN, no apparent distress, alert Lynne Crane MD Jun 03, 2018 12:02
--- NOTE | 2018-06-03 13:23 | NUR ---
RADIOLOGICAL HEALTH SPECIALISTBUS INFO CONSULTANT SI; RESP FAILURE,LEUKOCYTOSIS,HYPERNATREMIA T. 97.7 HR 76 RR 16 B/P 145/66 NC 4L WBC 11.8 NA 148 BUN 25 CR 1.8 IS: VANCO IV ZOSYN IV LOVENOX SUBC NORVASC PO TELE STATUS
[2018-06-03 16:00] VITALS: BP 140/65
--- NOTE | 2018-06-03 16:00 | General Progress Note ---
Assessment/Plan Assessment/Plan Assessment and Recs # Pancytopenia -- appears that initial hep and hiv are negative though final results to follow, liver shows no major hsm or cirrhosis, may consider meds or bone marrow process, smear reviewed --> this pancytopenia is acute in onset, over last several days, thus most likely abx infection related --> query meds, review with ID, is on micafungin now, monitor counts closely --> if no other cause and/or worsens, may consider flow cytometry or a bone marrow biopsy --> nepogen 300mcg sq to maintain anc >1500 --> wbc trend : 1.7-->4.3-->3.1-->3.4-->7.7-->8.1--12-->15-->11 # Anemia of chronic disease - monitor anemia panel --> hemolysis does not appear to be the case --> anemia panel reviewed --> hgb trend: 8.3-->9.2-->8.9-->8.7-->9 # Paroxysmal atrial fibrillation, due to CHADS-VASC score of 5, we require to keep anticoagulated, on metoprolol --> continue on apixaban # Hx of CAD, s/p CABG, ASA , atorvastatin and metoprolol. No wall motion abnormalities on Echo. LVEF ~55%. --> appreciate cards recs # Sinus tachycardia due to hypovolemia, resolved. # DKA, resolved. --> continue monitor # DM, non-compliant with medications. # Hx of HTN, controlled with metoprolol. # pancreatitis # increased LFT The timing of this note does not necessarily reflect the time of the patient was seen. Greatly appreciate consultation! Subjective Constitutional: Denies: no symptoms, chills, diaphoresis, fever, malaise, weakness, other HEENT: Denies: no symptoms, eye pain, blurred vision, tearing, double vision, ear pain, ear discharge, nose pain, nose congestion, throat pain, throat swelling, mouth pain, mouth swelling, other Respiratory: Denies: no symptoms, cough, orthopnea, shortness of breath, SOB with excertion, SOB at rest, sputum, stridor, wheezing, other Gastrointestinal/Abdominal: Denies: no symptoms, abdomen distended, abdominal pain, black stools, tarry stools, blood in stool, constipated, diarrhea, difficulty swallowing, nausea, poor appetite, poor fluid intake, rectal bleeding , vomiting, other Genitourinary: Denies: no symptoms, burning, discharge, frequency, flank pain, hematuria, incontinence, pain, urgency, other Neurologic/Psychiatric: Denies: no symptoms, anxiety, depressed, emotional problems, headache, numbness, paresthesia, pre-existing deficit, seizure, tingling, tremors, weakness, other Endocrine: Denies: no symptoms, excessive sweating, flushing, intolerance to cold, intolerance to heat, increased hunger, increased thirst, increased urine, unexplained weight gain, unexplained weight loss, other Hematologic/Lymphatic: Denies: no symptoms, anemia, easy bleeding, easy bruising, other Allergies: Coded Allergies: SHELLFISH DERIVED (Verified Allergy, Unknown, swelling and itchiness, 05/14) Subjective 05/18: Pt is awake and comfortable, no events, leukopenia improved, wbc 4.3, plt 151 05/19: seen by bedside, awake, comfortable, plt 122 05/20: Pt is awake and comfortable, no events 05/21: Pt is seen in the room, resting in bed, no fevers or chills, wbc 8.7, plt 117 2: Pt is resting in bed, awake, comfortable, no fevers or chills, no acute distress. 2: EGD and EUS done today, has no gallbladder stones, only pancreatitis, no events 2: no events, dermatitis has improved, off loading of heels, pancreatitis and dka better 2: Pt is awake, comfortable, no acute events overnight, hgb 8.6 2: seen by bedside, awake, comfortable, no events 05/28: resting in bed, awake, comfortable, no fevers or chills, no acute distress , No need for ERCP per GI, 05/31: Pt is awake and comfortable, no events 06/01: awake, comfortable, denies acute distress. 06/02: seen by bedside, awake, comfortable, no acute distress. wbc 15. 2: no acute events, denies any abdominal pain, wbc trending down at 11 today. Objective Last 24 Hour Vital Signs Date Time Temp Pulse Resp B/P (MAP) Pulse Ox O2 Delivery O2 Flow Rate FiO2 06/03/18 12:33 143/68 06/03/18 12:00 71 06/03/18 12:00 97.7 94 16 143/68 (93) 97 06/03/18 09:18 79 145/66 06/03/18 09:17 79 145/66 06/03/18 09:00 Nasal Cannula 4.0 06/03/18 08:00 76 06/03/18 08:00 97.7 79 16 145/66 (92) 79 06/03/18 07:23 92 Nasal Cannula 4.0 36 06/03/18 07:23 Nasal Cannula 4.0 36 06/03/18 05:39 135/62 06/03/18 04:00 96.8 76 18 138/78 (98) 76 06/03/18 04:00 71 06/03/18 00:55 135/60 06/03/18 00:00 97.7 72 18 135/60 (85) 93 06/03/18 00:00 70 06/02/18 21:00 Nasal Cannula 4.0 06/02/18 21:00 75 136/68 06/02/18 20:14 75 136/68 06/02/18 20:00 97.9 80 18 135/68 (90) 94 06/02/18 20:00 85 06/02/18 19:25 Nasal Cannula 4.0 36 06/02/18 19:25 75 24 96 4.0 36 06/02/18 19:24 97 Nasal Cannula 4.0 36 06/02/18 17:15 130/66 06/02/18 17:15 75 130/66 06/02/18 16:00 97.7 75 27 130/66 (87) 96 Intake and Output 06/02/18 06/03/18 19:00 07:00 Intake Total 290.0 ml 146.7 ml Output Total 200 ml Balance 90.0 ml 146.7 ml Intake Oral 180 ml IV Total 110.0 ml 146.7 ml Output Urine Total 200 ml # Voids 4 # Bowel Movements 1 2 Laboratory Tests 06/03/18 06:00: White Blood Count 11.8H, Red Blood Count 2.93L, Hemoglobin 8.1L, Hematocrit 25.7L, Mean Corpuscular Volume 88, Mean Corpuscular Hemoglobin 27.5, Mean Corpuscular Hemoglobin Concent 31.3L, Red Cell Distribution Width 22.5H, Platelet Count 337, Mean Platelet Volume 6.3L, Neutrophils (%) (Auto) , Lymphocytes (%) (Auto) , Monocytes (%) (Auto) , Eosinophils (%) (Auto) , Basophils (%) (Auto) , Differential Total Cells Counted 100, Neutrophils % ( Manual) 90H, Lymphocytes % (Manual) 5L, Monocytes % (Manual) 5, Eosinophils % ( Manual) 0, Basophils % (Manual) 0, Band Neutrophils 0, Platelet Estimate Adequate, Platelet Morphology Normal, Red Blood Cell Morphology , Polychromasia 1+, Hypochromasia 1+, Anisocytosis 2+, Sodium Level 148H, Potassium Level 3.6, Chloride Level 110H, Carbon Dioxide Level 22, Anion Gap 16H, Blood Urea Nitrogen 23H, Creatinine 1.8H, Estimat Glomerular Filtration Rate 27.8, Glucose Level 208H, Calcium Level 7.9L, Total Bilirubin 1.2H, Direct Bilirubin 0.7H, Aspartate Amino Transf (AST/SGOT) 39H, Alanine Aminotransferase (ALT/SGPT) 51, Alkaline Phosphatase 375H, Total Protein 6.7, Albumin 2.2L, Globulin 4.5, Albumin/Globulin Ratio 0.5L, Random Vancomycin Level 4.7 Height (Feet): 4 Height (Inches): 10.00 Weight (Pounds): 173 Objective PHYSICAL EXAMINATION: GENERAL: Pleasant [place] woman seen in the ICU. HEENT: Normocephalic and atraumatic. Sclerae anicteric. Oropharynx clear. NECK: Supple. CHEST: Clear to auscultation. CARDIOVASCULAR: Revealed regular rate. ABDOMEN: Soft. Good bowel sounds. There is no organomegaly or tenderness. Anterior chest and abdomen scars were as expected. EXTREMITIES: Revealed no edema. Armando Bowen MD Jun 03, 2018 16:00
--- NOTE | 2018-06-03 19:50 | NUR ---
HAND-OFF: Report given to WAYNE Holman.
--- NOTE | 2018-06-03 19:52 | NUR ---
NURSE NOTES: Report received from WAYNE Gomez. Pt is lying comfortably in semi-fowlers with no signs of distress. Pt is A+Ox3 and denies pain/SOB. Respirations are even and unlabored on 4 L NC. PICC line in place and patent. Bed is at lowest position, brakes engaged, siderails x2, bed alarm on, and call light within reach. Pt is in stable condition at this time; will continue to monitor.
--- NOTE | 2018-06-03 19:53 | Cardiology Progress Note ---
Assessment/Plan Assessment/Plan 1. Paroxysmal atrial fibrillation, in SR now, due to CHADS-VASC score of 5, continue enoxaparin and metoprolol. 2. Hx of CAD, s/p CABG, ASA , atorvastatin and metoprolol. No wall motion abnormalities on Echo. LVEF ~55%. 3. Sinus tachycardia, resolved, due to hypovolemia. 4. DKA, resolved. 5. DM 6. HTN, well controlled, continue amlodipine, metoprolol and hydralazine. 7. Severe pulmonary HTN. 8. MAMADOU, creatinine up to 1.8. Subjective Subjective Sinus rhythm at rate of 92. Objective Last 24 Hour Vital Signs Date Time Temp Pulse Resp B/P (MAP) Pulse Ox O2 Delivery O2 Flow Rate FiO2 06/03/18 18:10 145/65 06/03/18 18:10 92 145/65 06/03/18 16:00 97.3 92 16 140/65 (90) 98 06/03/18 16:00 73 06/03/18 12:33 143/68 06/03/18 12:00 71 06/03/18 12:00 97.7 94 16 143/68 (93) 97 06/03/18 09:18 79 145/66 06/03/18 09:17 79 145/66 06/03/18 09:00 Nasal Cannula 4.0 06/03/18 08:00 76 06/03/18 08:00 97.7 79 16 145/66 (92) 79 06/03/18 07:23 92 Nasal Cannula 4.0 36 06/03/18 07:23 Nasal Cannula 4.0 36 06/03/18 05:39 135/62 06/03/18 04:00 96.8 76 18 138/78 (98) 76 06/03/18 04:00 71 06/03/18 00:55 135/60 06/03/18 00:00 97.7 72 18 135/60 (85) 93 06/03/18 00:00 70 06/02/18 21:00 Nasal Cannula 4.0 06/02/18 21:00 75 136/68 06/02/18 20:14 75 136/68 06/02/18 20:00 97.9 80 18 135/68 (90) 94 06/02/18 20:00 85 Intake and Output 06/02/18 06/03/18 19:00 07:00 Intake Total 290.0 ml 146.7 ml Output Total 200 ml Balance 90.0 ml 146.7 ml Intake Oral 180 ml IV Total 110.0 ml 146.7 ml Output Urine Total 200 ml # Voids 4 # Bowel Movements 1 2 2D Echo: EF55%,Mild LVH,Mod MR,Mild AR,RVSP 67 mmHg (severe PHT),Restrictive LV phy Laboratory Tests Test 06/03/18 06:00 White Blood Count 11.8 K/UL (4.8-10.8) H Red Blood Count 2.93 M/UL (4.20-5.40) L Hemoglobin 8.1 G/DL (12.0-16.0) L Hematocrit 25.7 % (37.0-47.0) L Mean Corpuscular Volume 88 FL (80-99) Mean Corpuscular Hemoglobin 27.5 PG (27.0-31.0) Mean Corpuscular Hemoglobin Concent 31.3 G/DL (32.0-36.0) L Red Cell Distribution Width 22.5 % (11.6-14.8) H Platelet Count 337 K/UL (150-450) Mean Platelet Volume 6.3 FL (6.5-10.1) L Neutrophils (%) (Auto) % (45.0-75.0) Lymphocytes (%) (Auto) % (20.0-45.0) Monocytes (%) (Auto) % (1.0-10.0) Eosinophils (%) (Auto) % (0.0-3.0) Basophils (%) (Auto) % (0.0-2.0) Differential Total Cells Counted 100 Neutrophils % (Manual) 90 % (45-75) H Lymphocytes % (Manual) 5 % (20-45) L Monocytes % (Manual) 5 % (1-10) Eosinophils % (Manual) 0 % (0-3) Basophils % (Manual) 0 % (0-2) Band Neutrophils 0 % (0-8) Platelet Estimate Adequate Platelet Morphology Normal Red Blood Cell Morphology Polychromasia 1+ Hypochromasia 1+ Anisocytosis 2+ Sodium Level 148 MMOL/L (136-145) H Potassium Level 3.6 MMOL/L (3.5-5.1) Chloride Level 110 MMOL/L (98-107) H Carbon Dioxide Level 22 MMOL/L (21-32) Anion Gap 16 mmol/L (5-15) H Blood Urea Nitrogen 23 mg/dL (7-18) H Creatinine 1.8 MG/DL (0.55-1.30) H Estimat Glomerular Filtration Rate 27.8 mL/min (>60) Glucose Level 208 MG/DL (74-106) H Calcium Level 7.9 MG/DL (8.5-10.1) L Total Bilirubin 1.2 MG/DL (0.2-1.0) H Direct Bilirubin 0.7 MG/DL (0.0-0.3) H Aspartate Amino Transf (AST/SGOT) 39 U/L (15-37) H Alanine Aminotransferase (ALT/SGPT) 51 U/L (12-78) Alkaline Phosphatase 375 U/L (46-116) H Total Protein 6.7 G/DL (6.4-8.2) Albumin 2.2 G/DL (3.4-5.0) L Globulin 4.5 g/dL Albumin/Globulin Ratio 0.5 (1.0-2.7) L Random Vancomycin Level 4.7 ug/mL Microbiology Date/Time Source Procedure Growth Status 06/02/18 01:35 Sputum Gram Stain - Final Resulted 06/02/18 01:35 Sputum Culture - Preliminary Gram Negative Bacillus 1 Resulted Objective HEENT: Normocephalic, atraumatic, Pupils equally reactive to light and accommodation, EOMI. NECK: No JVD, no carotid bruit. CARDIOVASCULAR: Regular rate and rhythm. No murmurs, gallops or rubs. LUNGS: Clear to auscultation bilaterally. No crackles or Rhonchi. ABDOMEN: Soft and nontender. No organomegaly, + BS. EXTREMITIES: No cyanosis, clubbing or edema. Miller Mckeon MD Jun 03, 2018 19:53
[2018-06-03 20:00] VITALS: BP 128/63
[2018-06-03] MEDS: Dyna-Hex 2% Top Sol 2oz TOPIC SCH (21:28)
[2018-06-03] MEDS: OLANZapine 2.5mg tab ORAL SCH (21:29)
--- NOTE | 2018-06-03 21:36 | NUR ---
RESPIRATORY NOTE: Pt placed on BiPAP for PRN use. Pt is alert/awake, follows commands, but is slowly getting drowsy & breathing irregularly. Pt now on BiPAP 15/5, backup rate 18, 50%. Pt placed on a facial mask. Skin intact, no redness/breakdowns noted. Foam tape applied on pt's nosebridge/cheeks/chin to prevent any mask irritations. RN currently at bedside. B/S darin. clear/diminished, nonproductive cough. BiPAP plugged into red outlet. Pt tolerating settings & appears more comfortable. Will continue to monitor pt.
[2018-06-04] VITALS: BP 120/62
[2018-06-04] MEDS: HydrALAZINE 25mg tab ORAL SCH ×4 (00:41→17:48)
[2018-06-04 04:00] VITALS: BP 116/58
[2018-06-04] MEDS: NovoLOG Insulin Flexpen SUBQ SCH ×4 (05:43→21:00)
[2018-06-04] MEDS: Piperacillin/Tazobactam 3.375 GM in NS 110 ML IV SCH (05:45)
--- NOTE | 2018-06-04 07:23 | NUR ---
HAND-OFF: Report given to WAYNE Maurice. Pt is in stable condition; plan of care endorsed.
[2018-06-04 07:41] LABS: ALANINE AMINOTRANSFERASE 40 U/L (12-78); ALBUMIN 2.2 G/DL (3.4-5.0); ALBUMIN/GLOBULIN RATIO 0.5 (1.0-2.7); ALKALINE PHOSPHATASE 366 U/L (46-116); ANION GAP 11 mmol/L (5-15); ASPARTATE AMINO TRANSFERASE 30 U/L (15-37); BILIRUBIN,TOTAL 1.1 MG/DL (0.2-1.0); BLOOD UREA NITROGEN 23 mg/dL (7-18); CALCIUM 8.4 MG/DL (8.5-10.1); CARBON DIOXIDE 25 MMOL/L (21-32); CHLORIDE 110 MMOL/L (98-107); CREATININE 1.9 MG/DL (0.55-1.30); POTASSIUM 3.2 MMOL/L (3.5-5.1); SODIUM 146 MMOL/L (136-145)
[2018-06-04 07:42] LABS: BILIRUBIN,DIRECT 0.4 MG/DL (0.0-0.3)
[2018-06-04 08:00] VITALS: BP 126/62
--- NOTE | 2018-06-04 08:00 | NUR ---
NURSE NOTES: Pt awake/drowsy in bed, breathing easily on 4 lpm nasal cannula, denies SOB and pain at this time. Vital signs stable with SR at 70 on monitor. PICC OMAR with one lumen NS at TKO, the other lumen flushed with 10 ml NS and locked. Purewick in place draining clear yellow urine to collection canister on wall. SCD in place and running. Oral care/rinse done. Bed left in low position, exit alarm set, side rails up x 3 and call light left near pt's hand.
[2018-06-04 08:14] LABS: HEMATOCRIT 25.1 % (37.0-47.0); HEMOGLOBIN 7.7 G/DL (12.0-16.0); MEAN CORPUSCULAR VOLUME 88 FL (80-99); PLATELET COUNT 265 K/UL (150-450); RED BLOOD COUNT 2.84 M/UL (4.20-5.40); RED CELL DISTRIBUTION WIDTH 22.2 % (11.6-14.8); WHITE BLOOD COUNT 10.9 K/UL (4.8-10.8)
[2018-06-04] MEDS: Aspirin Baby 81mg ORAL SCH (08:30)
[2018-06-04] MEDS: Metoprolol Tartrate 50mg tab ORAL SCH ×2 (08:30→20:53)
[2018-06-04] MEDS: Enoxaparin 80mg Inj SUBQ SCH (08:33)
--- NOTE | 2018-06-04 09:10 | Infectious Diseases Prog Note ---
Assessment/Plan Assessment/Plan antibiotics : vancomycin iv, zosyn A 1. klebsiella pneumonia 2. herpes of lip s/p rx 3. diabetic ketoacidosis resolved 4. respiratory failure resolved 5. hypertension 6. leucocytosis improving 7. renal failure P 1. d/c iv vancomycin, zosyn 2. start ceftriaxone 3. will follow up cultures Subjective ROS Limited/Unobtainable: Yes Allergies: Coded Allergies: SHELLFISH DERIVED (Verified Allergy, Unknown, swelling and itchiness, 05/14) Objective Vital Signs Last 24 Hour Vital Signs Date Time Temp Pulse Resp B/P (MAP) Pulse Ox O2 Delivery O2 Flow Rate FiO2 06/04/18 08:30 79 116/58 06/04/18 08:30 79 116/58 06/04/18 07:56 79 22 Nasal Cannula 5.0 40 06/04/18 07:56 Nasal Cannula 5.0 40 06/04/18 07:56 96 Nasal Cannula 5.0 40 06/04/18 05:45 116/58 06/04/18 04:00 98.0 61 19 116/58 (77) 98 06/04/18 04:00 61 06/04/18 03:15 60 20 97 Facial 50 06/04/18 01:46 66 18 98 Facial 50 06/04/18 00:41 120/62 06/04/18 00:00 61 06/04/18 00:00 98.6 67 19 120/62 (81) 99 06/03/18 23:39 64 19 97 Facial 50 06/03/18 21:34 71 20 97 Facial 50 06/03/18 21:29 75 128/63 06/03/18 21:00 Nasal Cannula 4.0 06/03/18 20:30 94 Nasal Cannula 5.0 40 06/03/18 20:30 75 20 Nasal Cannula 5.0 40 06/03/18 20:30 Nasal Cannula 5.0 40 06/03/18 20:00 74 06/03/18 20:00 98.0 75 19 128/63 (84) 96 06/03/18 18:10 145/65 06/03/18 18:10 92 145/65 06/03/18 16:00 97.3 92 16 140/65 (90) 98 06/03/18 16:00 73 06/03/18 12:33 143/68 06/03/18 12:00 71 2/14/19 12:00 97.7 94 16 143/68 (93) 97 06/03/18 09:18 79 145/66 06/03/18 09:17 79 145/66 Height (Feet): 4 Height (Inches): 10.00 Weight (Pounds): 175 Respiratory/Chest: lungs clear Cardiovascular: normal rate, regular rhythm, no gallop/murmur Abdomen: soft, non tender Extremities: other - + edema, left arm PICC Microbiology Date/Time Source Procedure Growth Status 06/02/18 01:35 Sputum Gram Stain - Final Resulted 06/02/18 01:35 Sputum Culture - Preliminary Klebsiella Pneumoniae Resulted Laboratory Tests Test 06/04/18 04:30 White Blood Count 10.9 K/UL (4.8-10.8) H Red Blood Count 2.84 M/UL (4.20-5.40) L Hemoglobin 7.7 G/DL (12.0-16.0) L Hematocrit 25.1 % (37.0-47.0) L Mean Corpuscular Volume 88 FL (80-99) Mean Corpuscular Hemoglobin 27.1 PG (27.0-31.0) Mean Corpuscular Hemoglobin Concent 30.7 G/DL (32.0-36.0) L Red Cell Distribution Width 22.2 % (11.6-14.8) H Platelet Count 265 K/UL (150-450) Mean Platelet Volume 6.3 FL (6.5-10.1) L Neutrophils (%) (Auto) % (45.0-75.0) Lymphocytes (%) (Auto) % (20.0-45.0) Monocytes (%) (Auto) % (1.0-10.0) Eosinophils (%) (Auto) % (0.0-3.0) Basophils (%) (Auto) % (0.0-2.0) Neutrophils % (Manual) Pending Lymphocytes % (Manual) Pending Platelet Estimate Pending Platelet Morphology Pending Sodium Level 146 MMOL/L (136-145) H Potassium Level 3.2 MMOL/L (3.5-5.1) L Chloride Level 110 MMOL/L (98-107) H Carbon Dioxide Level 25 MMOL/L (21-32) Anion Gap 11 mmol/L (5-15) Blood Urea Nitrogen 23 mg/dL (7-18) H Creatinine 1.9 MG/DL (0.55-1.30) H Estimat Glomerular Filtration Rate 26.1 mL/min (>60) Glucose Level 125 MG/DL (74-106) H Calcium Level 8.4 MG/DL (8.5-10.1) L Total Bilirubin 1.1 MG/DL (0.2-1.0) H Direct Bilirubin 0.4 MG/DL (0.0-0.3) H Aspartate Amino Transf (AST/SGOT) 30 U/L (15-37) Alanine Aminotransferase (ALT/SGPT) 40 U/L (12-78) Alkaline Phosphatase 366 U/L (46-116) H Total Protein 6.6 G/DL (6.4-8.2) Albumin 2.2 G/DL (3.4-5.0) L Globulin 4.4 g/dL Albumin/Globulin Ratio 0.5 (1.0-2.7) L Lipase 404 U/L (73-393) H Current Medications Medications (Trade) Dose Ordered Sig/Ellen Route PRN Reason Start Time Stop Time Status Last Admin Dose Admin Acetaminophen (Tylenol) 650 mg Q4H PRN ORAL Mild Pain/Temp > 100.5 06/02/18 20:32 07/02/18 20:31 Al Hydroxide/Mg Hydroxide (Mylanta) 30 ml Q6H PRN ORAL Abdominal cramps 06/02/18 20:34 07/02/18 20:33 Amlodipine Besylate (Norvasc) 5 mg BID ORAL 06/03/18 09:00 06/28/18 08:59 06/04/18 08:30 Aspirin (ASA) 81 mg DAILY ORAL 06/03/18 09:00 06/24/18 08:59 06/04/18 08:30 Chlorhexidine Gluconate (Leora-Hex 2%) 1 applic DAILY@1999 TOPIC 06/03/18 20:00 06/24/18 19:59 06/03/18 21:28 Dextrose (Dextrose 50%) 25 ml Q30M PRN IV Hypoglycemia 06/02/18 20:45 06/13/18 10:14 Dextrose (Dextrose 50%) 50 ml Q30M PRN IV Hypoglycemia 06/02/18 20:45 06/13/18 10:14 Enoxaparin Sodium (Lovenox) 80 mg Q24H SUBQ 06/04/18 09:00 07/03/18 08:59 06/04/18 08:33 Haloperidol Lactate (Haldol) 5 mg Q6H PRN IM Agitation 06/02/18 20:33 07/02/18 20:32 Hydralazine HCl (Apresoline) 25 mg Q6HR ORAL 06/03/18 00:00 07/02/18 00:00 06/04/18 05:45 Insulin Aspart (NovoLOG) BEFORE MEALS AND HS SUBQ 06/02/18 21:00 06/13/18 11:29 06/04/18 05:43 Lorazepam (Ativan) 1 mg Q6H PRN ORAL For Anxiety 06/02/18 20:34 06/09/18 20:33 Magnesium Hydroxide (Mom) 30 ml DAILYPRN PRN ORAL Constipation 06/02/18 20:34 07/02/18 20:33 Metoprolol Tartrate (Lopressor) 5 mg Q2H PRN IVP For High Blood Pressure 06/02/18 21:00 06/23/18 16:59 Metoprolol Tartrate (Lopressor) 50 mg Q12HR ORAL 06/02/18 21:00 06/26/18 20:59 06/04/18 08:30 Olanzapine (ZyPREXA) 2.5 mg BEDTIME ORAL 06/02/18 21:00 07/01/18 20:59 06/03/18 21:29 Pantoprazole (Protonix) 40 mg ACBREAKFAST ORAL 06/03/18 06:30 06/26/18 06:29 06/04/18 05:45 Piperacillin Sod/ Tazobactam Sod 3.375 gm/Sodium Chloride 110 ml @ 27.5 mls/hr EVERY 8 HOURS IV 06/02/18 22:00 06/05/18 10:59 06/04/18 05:45 Vancomycin HCl (Vanco rx to dose) 1 ea DAILY PRN MISC Per rx protocol 06/03/18 09:00 07/01/18 11:14 Khadra Melendez MD Jun 04, 2018 09:10
--- NOTE | 2018-06-04 09:22 | General Progress Note ---
Assessment/Plan Problem List: (1) HTN (hypertension) ICD Codes: I10 - Essential (primary) hypertension SNOMED: 75813159 (2) Pneumonia ICD Codes: J18.9 - Pneumonia, unspecified organism SNOMED: 313570572 (3) Diabetes ICD Codes: E11.9 - Type 2 diabetes mellitus without complications SNOMED: 69396711 (4) UTI (urinary tract infection) ICD Codes: N39.0 - Urinary tract infection, site not specified SNOMED: 01030130 Qualifiers: Qualified Codes: N39.0 - Urinary tract infection, site not specified (5) Pancreatitis ICD Codes: K85.90 - Acute pancreatitis without necrosis or infection, unspecified SNOMED: 47870376 Qualifiers: Qualified Codes: K85.90 - Acute pancreatitis without necrosis or infection, unspecified (6) Gout ICD Codes: M10.9 - Gout, unspecified SNOMED: 66263558 Qualifiers: Qualified Codes: M10.9 - Gout, unspecified Assessment/Plan Assessment/Plan Status post EUS summary of findings 1. Pancreatitis, most probably acute, without any pancreatic duct dilatation or mass. 2. No evidence of any common bile duct dilatation was seen with common bile duct stone. 3. Gallbladder wall thickening, nonspecific. 4. 1 cm kristina hepatis lymph node, nonspecific. Elevated lipase levels, downtrending RECOMMENDATIONS: Advance to soft renal diet No need for ERCP Pain management Trend lipase Zofran as needed Follow-up labs Subjective ROS Limited/Unobtainable: No Allergies: Coded Allergies: SHELLFISH DERIVED (Verified Allergy, Unknown, swelling and itchiness, 05/14) Subjective skin rash Objective Last 24 Hour Vital Signs Date Time Temp Pulse Resp B/P (MAP) Pulse Ox O2 Delivery O2 Flow Rate FiO2 06/04/18 08:30 79 116/58 06/04/18 08:30 79 116/58 06/04/18 07:56 79 22 Nasal Cannula 5.0 40 06/04/18 07:56 Nasal Cannula 5.0 40 06/04/18 07:56 96 Nasal Cannula 5.0 40 06/04/18 05:45 116/58 06/04/18 04:00 98.0 61 19 116/58 (77) 98 06/04/18 04:00 61 06/04/18 03:15 60 20 97 Facial 50 06/04/18 01:46 66 18 98 Facial 50 06/04/18 00:41 120/62 06/04/18 00:00 61 06/04/18 00:00 98.6 67 19 120/62 (81) 99 06/03/18 23:39 64 19 97 Facial 50 06/03/18 21:34 71 20 97 Facial 50 06/03/18 21:29 75 128/63 06/03/18 21:00 Nasal Cannula 4.0 06/03/18 20:30 94 Nasal Cannula 5.0 40 06/03/18 20:30 75 20 Nasal Cannula 5.0 40 06/03/18 20:30 Nasal Cannula 5.0 40 06/03/18 20:00 74 06/03/18 20:00 98.0 75 19 128/63 (84) 96 06/03/18 18:10 145/65 06/03/18 18:10 92 145/65 06/03/18 16:00 97.3 92 16 140/65 (90) 98 06/03/18 16:00 73 06/03/18 12:33 143/68 06/03/18 12:00 71 06/03/18 12:00 97.7 94 16 143/68 (93) 97 Intake and Output 06/03/18 06/04/18 19:00 07:00 Intake Total 617.3 ml 110 ml Balance 617.3 ml 110 ml Intake Oral 480 ml IV Total 137.3 ml 110 ml # Voids 1 1 # Bowel Movements 1 Laboratory Tests 06/04/18 04:30: White Blood Count 10.9H, Red Blood Count 2.84L, Hemoglobin 7.7L, Hematocrit 25.1L, Mean Corpuscular Volume 88, Mean Corpuscular Hemoglobin 27.1, Mean Corpuscular Hemoglobin Concent 30.7L, Red Cell Distribution Width 22.2H, Platelet Count 265, Mean Platelet Volume 6.3L, Neutrophils (%) (Auto) , Lymphocytes (%) (Auto) , Monocytes (%) (Auto) , Eosinophils (%) (Auto) , Basophils (%) (Auto) , Neutrophils % (Manual) [Pending], Lymphocytes % (Manual) [Pending], Platelet Estimate [Pending], Platelet Morphology [Pending], Sodium Level 146H, Potassium Level 3.2L, Chloride Level 110H, Carbon Dioxide Level 25, Anion Gap 11, Blood Urea Nitrogen 23H, Creatinine 1.9H, Estimat Glomerular Filtration Rate 26.1, Glucose Level 125H, Calcium Level 8.4L, Total Bilirubin 1.1H, Direct Bilirubin 0.4H, Aspartate Amino Transf (AST/SGOT) 30, Alanine Aminotransferase (ALT/SGPT) 40, Alkaline Phosphatase 366H, Total Protein 6.6, Albumin 2.2L, Globulin 4.4, Albumin/Globulin Ratio 0.5L, Lipase 404H Height (Feet): 4 Height (Inches): 10.00 Weight (Pounds): 175 General Appearance: no apparent distress EENT: normal ENT inspection Neck: supple Cardiovascular: normal rate Respiratory/Chest: decreased breath sounds Abdomen: normal bowel sounds, non tender, soft Extremities: non-tender Neeraj Benito MD Jun 04, 2018 09:22
[2018-06-04] MEDS: cefTRIAXone 1 GM in D5W 55 ML IVPB SCH (10:23)
--- NOTE | 2018-06-04 11:47 | NUR ---
RD ASSESSMENT & RECOMMENDATIONS SEE CARE ACTIVITY FOR COMPLETE ASSESSMENT DAILY ESTIMATED NEEDS: Needs based on DM, cardiac, pulmonary/ 54kg abw 25-30 kcals/kg 4184-7341 total kcals 1-1.5 g protein/kg 54-81 g total protein 25-30 mL/kg 8511-5456 total fluid mLs NUTRITION DIAGNOSIS: 1) Altered nutrition related lab values R/T diabetes, clinical condition as evidenced by A1C 11.4, increased from 8.1 in August 2017, DKA w/ adm VR=330-> 139, 181 improved, elev BNP (2846), elev creat (1.5), elev LFTs, trending abck down, elev lipase (>2000 -> 404 trend down). CURRENT DIET:CCHO MED, RENAL/ puree w/ HTL PO DIET RECOMMENDATIONS: CCHO LOW, LOW NA, LOW FAT/ texture per DOORS PREFITTER ADDITIONAL RECOMMENDATIONS: 1) Standing wt as able for accurate CBW/ or RE-calibrated bed wt 2) Monitor PO tolerance and PO acceptance- pancreatitis dx 3) A1C 11.4, consider long acting insulin for improved glycemic control 4) Monitor liver fxn and lipase 5) Hugo 1pkt BID for skin integrity 6) DOORS PREFITTER EVAL FOR APPROPRIATE TEXTURE AND IMPROVED PO INTAKE 7) Add GLUCERNA 1 tetra tiffany BID in b/w meals w/ poor po intake
[2018-06-04 12:00] VITALS: BP 133/53
--- NOTE | 2018-06-04 13:18 | NUR ---
*- INSURANCE *-* ALL CLINICALS AND REVIEWS AND INTERQUAL HAVE BEEN FAXED TO: [facility] ROSA: RUDY P:[phone] F:[phone]
--- NOTE | 2018-06-04 14:03 | NUR ---
NURSE NOTES:WOUND CARE FOLLOW-UP NOTES: Fungal dermatitis abd folds, perineum ,back, buttocksand medial/posterior aspects of thighs resolving .Dry brown pigmentation noted to affected areas.few satellite lesions noted to marcelino-anal area.Pt denied burning or tenderness. Moisture Barrier applied to abd folds .perineum and buttocks.Pt has Purewick to minimize exposure to moisture from incontinence. Pt observed positioned with pillows in bed .Both heels off-loaded with pillow.No new skin concerns noted. Tx.Plan:Continue all wound care Tx and wound prevention protocols.
[2018-06-04 16:00] VITALS: BP 127/60
--- NOTE | 2018-06-04 16:46 | NUR ---
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 PER RUDY WE WILL MONITOR OVER THE WEEKEND AND REEVALUATE FOR LTACH PLACEMENT ON THURSDAY.
--- NOTE | 2018-06-04 18:02 | Cardiology Progress Note ---
Assessment/Plan Assessment/Plan 1. Paroxysmal atrial fibrillation, in SR now, due to CHADS-VASC score of 5, continue enoxaparin and metoprolol. 2. Hx of CAD, s/p CABG, ASA , atorvastatin and metoprolol. No wall motion abnormalities on Echo. LVEF ~55%. 3. Sinus tachycardia, resolved, due to hypovolemia. 4. DKA, resolved. 5. DM 6. HTN, well controlled, continue amlodipine, metoprolol and hydralazine. 7. Severe pulmonary HTN. 8. MAMADOU, creatinine up to 1.9. 9. Hypokalemia, keep K >4.0 Subjective Subjective Sinus rhythm at rate of 76. Objective Last 24 Hour Vital Signs Date Time Temp Pulse Resp B/P (MAP) Pulse Ox O2 Delivery O2 Flow Rate FiO2 06/04/18 17:49 76 143/67 06/04/18 17:48 143/67 06/04/18 11:50 116/58 06/04/18 08:30 79 116/58 06/04/18 08:30 79 116/58 06/04/18 08:00 97.2 72 20 126/62 (83) 95 06/04/18 07:56 79 22 Nasal Cannula 5.0 40 06/04/18 07:56 Nasal Cannula 5.0 40 06/04/18 07:56 96 Nasal Cannula 5.0 40 06/04/18 05:45 116/58 06/04/18 04:00 98.0 61 19 116/58 (77) 98 06/04/18 04:00 61 06/04/18 03:15 60 20 97 Facial 50 06/04/18 01:46 66 18 98 Facial 50 06/04/18 00:41 120/62 06/04/18 00:00 61 06/04/18 00:00 98.6 67 19 120/62 (81) 99 06/03/18 23:39 64 19 97 Facial 50 06/03/18 21:34 71 20 97 Facial 50 06/03/18 21:29 75 128/63 06/03/18 21:00 Nasal Cannula 4.0 06/03/18 20:30 94 Nasal Cannula 5.0 40 06/03/18 20:30 75 20 Nasal Cannula 5.0 40 06/03/18 20:30 Nasal Cannula 5.0 40 06/03/18 20:00 74 06/03/18 20:00 98.0 75 19 128/63 (84) 96 06/03/18 18:10 145/65 06/03/18 18:10 92 145/65 Intake and Output 06/03/18 06/04/18 19:00 07:00 Intake Total 617.3 ml 110 ml Balance 617.3 ml 110 ml Intake Oral 480 ml IV Total 137.3 ml 110 ml # Voids 1 1 # Bowel Movements 1 2D Echo: EF55%,Mild LVH,Mod MR,Mild AR,RVSP 67 mmHg (severe PHT),Restrictive LV phy Laboratory Tests Test 06/04/18 04:30 White Blood Count 10.9 K/UL (4.8-10.8) H Red Blood Count 2.84 M/UL (4.20-5.40) L Hemoglobin 7.7 G/DL (12.0-16.0) L Hematocrit 25.1 % (37.0-47.0) L Mean Corpuscular Volume 88 FL (80-99) Mean Corpuscular Hemoglobin 27.1 PG (27.0-31.0) Mean Corpuscular Hemoglobin Concent 30.7 G/DL (32.0-36.0) L Red Cell Distribution Width 22.2 % (11.6-14.8) H Platelet Count 265 K/UL (150-450) Mean Platelet Volume 6.3 FL (6.5-10.1) L Neutrophils (%) (Auto) % (45.0-75.0) Lymphocytes (%) (Auto) % (20.0-45.0) Monocytes (%) (Auto) % (1.0-10.0) Eosinophils (%) (Auto) % (0.0-3.0) Basophils (%) (Auto) % (0.0-2.0) Differential Total Cells Counted 100 Neutrophils % (Manual) 77 % (45-75) H Lymphocytes % (Manual) 13 % (20-45) L Monocytes % (Manual) 10 % (1-10) Eosinophils % (Manual) 0 % (0-3) Basophils % (Manual) 0 % (0-2) Band Neutrophils 0 % (0-8) Platelet Estimate Adequate Platelet Morphology Normal Anisocytosis 2+ Microcytosis 1+ Sodium Level 146 MMOL/L (136-145) H Potassium Level 3.2 MMOL/L (3.5-5.1) L Chloride Level 110 MMOL/L (98-107) H Carbon Dioxide Level 25 MMOL/L (21-32) Anion Gap 11 mmol/L (5-15) Blood Urea Nitrogen 23 mg/dL (7-18) H Creatinine 1.9 MG/DL (0.55-1.30) H Estimat Glomerular Filtration Rate 26.1 mL/min (>60) Glucose Level 125 MG/DL (74-106) H Calcium Level 8.4 MG/DL (8.5-10.1) L Total Bilirubin 1.1 MG/DL (0.2-1.0) H Direct Bilirubin 0.4 MG/DL (0.0-0.3) H Aspartate Amino Transf (AST/SGOT) 30 U/L (15-37) Alanine Aminotransferase (ALT/SGPT) 40 U/L (12-78) Alkaline Phosphatase 366 U/L (46-116) H Total Protein 6.6 G/DL (6.4-8.2) Albumin 2.2 G/DL (3.4-5.0) L Globulin 4.4 g/dL Albumin/Globulin Ratio 0.5 (1.0-2.7) L Lipase 404 U/L (73-393) H Microbiology Date/Time Source Procedure Growth Status 06/02/18 01:35 Sputum Gram Stain - Final Resulted 06/02/18 01:35 Sputum Culture - Preliminary Klebsiella Pneumoniae Resulted Objective HEENT: Normocephalic, atraumatic, Pupils equally reactive to light and accommodation, EOMI. NECK: No JVD, no carotid bruit. CARDIOVASCULAR: Regular rate and rhythm. No murmurs, gallops or rubs. LUNGS: Clear to auscultation bilaterally. No crackles or Rhonchi. ABDOMEN: Soft and nontender. No organomegaly, + BS. EXTREMITIES: No cyanosis, clubbing or edema. Miller Mckeon MD Jun 04, 2018 18:02
--- NOTE | 2018-06-04 19:30 | NUR ---
NURSE NOTES: Received patient from WAYNE Maurice. Patient on bed asleep. No signs of distress. Noted K-3.2. Will inform Dr. Lew. IV site intact and patent. AOx4, fatigued. Able to verbalize needs. Call light within reach.
--- NOTE | 2018-06-04 19:43 | NUR ---
NURSE NOTES: Contacted Dr. Lew for K-3.2. Awaiting for new orders.
--- NOTE | 2018-06-04 19:48 | NUR ---
NURSE NOTES:Received patient from WAYNE Maurice. Pt is in stable condition and resting comfortably in bed. No signs or symptoms of distress noted at this time. Pt on 5L NC saturating well. IV sites intact and patent. Bed is in the lowest position, Call light within reach, side rails raised x3 and bed brakes engaged. Will continue to monitor.
[2018-06-04 20:00] VITALS: BP 127/69
--- NOTE | 2018-06-04 20:07 | Pulmonology Progress Note ---
Assessment/Plan Assessment/Plan Pulmonary Progress Note Assessment/Plan Impression Diabetic ketoacidosis Anemia Transaminitis of unclear etiology Severe protein calorie malnutrition Evidence of pancreatitis, better Acute renal failure, improved Hyperglycemia Diabetes Hyponatremia Metabolic acidosis Hypercholesterolemia fever oral ulcers afib with RVR leukopenia pancreatitis CVA dc planning on antibiotics on lovenox ? eliquis may need transfusion care noted; will need rehab impression, plan, and exam edited and reviewed in detail care discussed with RN Subjective Allergies: Coded Allergies: SHELLFISH DERIVED (Verified Allergy, Unknown, swelling and itchiness, 05/14) Subjective care noted weak comfortable slightly improved Objective Vital Signs Noted Laboratory Tests 06/02/18 10:37: Arterial Blood pH 7.488H, Arterial Blood Partial Pressure CO2 32.6L, Arterial Blood Partial Pressure O2 70.1L, Arterial Blood HCO3 24.2, Arterial Blood Oxygen Saturation 92.9L, Arterial Blood Base Excess 1.0, Marlon Test Positive 06/03/18 06:00: White Blood Count 11.8H, Red Blood Count 2.93L, Hemoglobin 8.1L, Hematocrit 25.7L, Mean Corpuscular Volume 88, Mean Corpuscular Hemoglobin 27.5, Mean Corpuscular Hemoglobin Concent 31.3L, Red Cell Distribution Width 22.5H, Platelet Count 337, Mean Platelet Volume 6.3L, Neutrophils (%) (Auto) , Lymphocytes (%) (Auto) , Monocytes (%) (Auto) , Eosinophils (%) (Auto) , Basophils (%) (Auto) , Neutrophils % (Manual) [Pending], Lymphocytes % (Manual) [Pending], Platelet Estimate [Pending], Platelet Morphology [Pending], Sodium Level 148H, Potassium Level 3.6, Chloride Level 110H, Carbon Dioxide Level 22, Anion Gap 16H, Blood Urea Nitrogen 23H, Creatinine 1.8H, Estimat Glomerular Filtration Rate 27.8, Glucose Level 208H, Calcium Level 7.9L, Total Bilirubin 1.2H, Direct Bilirubin 0.7H, Aspartate Amino Transf (AST/SGOT) 39H, Alanine Aminotransferase (ALT/SGPT) 51, Alkaline Phosphatase 375H, Total Protein 6.7, Albumin 2.2L, Globulin 4.5, Albumin/Globulin Ratio 0.5L, Random Vancomycin Level 4.7 Height (Feet): 4 Height (Inches): 10.00 Weight (Pounds): 173 Objective WDWN more alert clear breath sounds bilaterally without rhonchi or wheeze S1S2 RRR without MRG NABS nontender no HSM no CCE remains weak alert Subjective ROS Limited/Unobtainable: No Allergies: Coded Allergies: SHELLFISH DERIVED (Verified Allergy, Unknown, swelling and itchiness, 05/14) Objective Last 24 Hour Vital Signs Date Time Temp Pulse Resp B/P (MAP) Pulse Ox O2 Delivery O2 Flow Rate FiO2 06/04/18 17:49 76 143/67 06/04/18 17:48 143/67 06/04/18 16:00 97.7 72 24 127/60 (82) 93 06/04/18 16:00 77 06/04/18 12:00 98.2 66 21 133/53 (79) 96 06/04/18 12:00 75 06/04/18 11:50 116/58 06/04/18 09:00 Nasal Cannula 4.0 06/04/18 08:30 79 116/58 06/04/18 08:30 79 116/58 06/04/18 08:00 72 06/04/18 08:00 97.2 72 20 126/62 (83) 95 06/04/18 07:56 79 22 Nasal Cannula 5.0 40 06/04/18 07:56 Nasal Cannula 5.0 40 06/04/18 07:56 96 Nasal Cannula 5.0 40 06/04/18 05:45 116/58 06/04/18 04:00 98.0 61 19 116/58 (77) 98 06/04/18 04:00 61 06/04/18 03:15 60 20 97 Facial 50 06/04/18 01:46 66 18 98 Facial 50 06/04/18 00:41 120/62 06/04/18 00:00 61 06/04/18 00:00 98.6 67 19 120/62 (81) 99 06/03/18 23:39 64 19 97 Facial 50 06/03/18 21:34 71 20 97 Facial 50 06/03/18 21:29 75 128/63 06/03/18 21:00 Nasal Cannula 4.0 06/03/18 20:30 94 Nasal Cannula 5.0 40 06/03/18 20:30 75 20 Nasal Cannula 5.0 40 06/03/18 20:30 Nasal Cannula 5.0 40 Intake and Output 06/03/18 06/04/18 19:00 07:00 Intake Total 617.3 ml 110 ml Balance 617.3 ml 110 ml Intake Oral 480 ml IV Total 137.3 ml 110 ml # Voids 1 1 # Bowel Movements 1 Microbiology Date/Time Source Procedure Growth Status 06/02/18 01:35 Sputum Gram Stain - Final Resulted 06/02/18 01:35 Sputum Culture - Preliminary Klebsiella Pneumoniae Resulted Laboratory Tests 06/04/18 04:30: White Blood Count 10.9H, Red Blood Count 2.84L, Hemoglobin 7.7L, Hematocrit 25.1L, Mean Corpuscular Volume 88, Mean Corpuscular Hemoglobin 27.1, Mean Corpuscular Hemoglobin Concent 30.7L, Red Cell Distribution Width 22.2H, Platelet Count 265, Mean Platelet Volume 6.3L, Neutrophils (%) (Auto) , Lymphocytes (%) (Auto) , Monocytes (%) (Auto) , Eosinophils (%) (Auto) , Basophils (%) (Auto) , Differential Total Cells Counted 100, Neutrophils % ( Manual) 77H, Lymphocytes % (Manual) 13L, Monocytes % (Manual) 10, Eosinophils % (Manual) 0, Basophils % (Manual) 0, Band Neutrophils 0, Platelet Estimate Adequate, Platelet Morphology Normal, Anisocytosis 2+, Microcytosis 1+, Sodium Level 146H, Potassium Level 3.2L, Chloride Level 110H, Carbon Dioxide Level 25, Anion Gap 11, Blood Urea Nitrogen 23H, Creatinine 1.9H, Estimat Glomerular Filtration Rate 26.1, Glucose Level 125H, Calcium Level 8.4L, Total Bilirubin 1.1H, Direct Bilirubin 0.4H, Aspartate Amino Transf (AST/SGOT) 30, Alanine Aminotransferase (ALT/SGPT) 40, Alkaline Phosphatase 366H, Total Protein 6.6, Albumin 2.2L, Globulin 4.4, Albumin/Globulin Ratio 0.5L, Lipase 404H Current Medications Medications (Trade) Dose Ordered Sig/Ellen Route PRN Reason Start Time Stop Time Status Last Admin Dose Admin Acetaminophen (Tylenol) 650 mg Q4H PRN ORAL Mild Pain/Temp > 100.5 06/02/18 20:32 07/02/18 20:31 Al Hydroxide/Mg Hydroxide (Mylanta) 30 ml Q6H PRN ORAL Abdominal cramps 06/02/18 20:34 07/02/18 20:33 Amlodipine Besylate (Norvasc) 5 mg BID ORAL 06/03/18 09:00 06/28/18 08:59 06/04/18 17:49 Aspirin (ASA) 81 mg DAILY ORAL 06/03/18 09:00 06/24/18 08:59 06/04/18 08:30 Ceftriaxone Sodium 1 gm/ Dextrose 55 ml @ 110 mls/hr Q24H IVPB 06/04/18 10:00 06/11/18 09:59 06/04/18 10:23 Chlorhexidine Gluconate (Leora-Hex 2%) 1 applic DAILY@2000 TOPIC 06/03/18 20:00 06/24/18 19:59 06/03/18 21:28 Dextrose (Dextrose 50%) 25 ml Q30M PRN IV Hypoglycemia 06/02/18 20:45 06/13/18 10:14 Dextrose (Dextrose 50%) 50 ml Q30M PRN IV Hypoglycemia 06/02/18 20:45 06/13/18 10:14 Enoxaparin Sodium (Lovenox) 80 mg Q24H SUBQ 06/04/18 09:00 07/03/18 08:59 06/04/18 08:33 Haloperidol Lactate (Haldol) 5 mg Q6H PRN IM Agitation 06/02/18 20:33 07/02/18 20:32 Hydralazine HCl (Apresoline) 25 mg Q6HR ORAL 06/03/18 00:00 07/02/18 00:00 06/04/18 17:48 Insulin Aspart (NovoLOG) BEFORE MEALS AND HS SUBQ 06/02/18 21:00 06/13/18 11:29 06/04/18 17:50 Lorazepam (Ativan) 1 mg Q6H PRN ORAL For Anxiety 06/02/18 20:34 06/09/18 20:33 Magnesium Hydroxide (Mom) 30 ml DAILYPRN PRN ORAL Constipation 06/02/18 20:34 07/02/18 20:33 Metoprolol Tartrate (Lopressor) 5 mg Q2H PRN IVP For High Blood Pressure 06/02/18 21:00 06/23/18 16:59 Metoprolol Tartrate (Lopressor) 50 mg Q12HR ORAL 06/02/18 21:00 06/26/18 20:59 06/04/18 08:30 Olanzapine (ZyPREXA) 2.5 mg BEDTIME ORAL 06/02/18 21:00 07/01/18 20:59 06/03/18 21:29 Pantoprazole (Protonix) 40 mg ACBREAKFAST ORAL 06/03/18 06:30 06/26/18 06:29 06/04/18 05:45 Potassium Chloride (K-Dur) 40 meq ONCE ORAL 06/04/18 20:00 06/04/18 21:00 Gulshan Landry MD Jun 04, 2018 20:07
--- NOTE | 2018-06-04 20:34 | General Progress Note ---
Assessment/Plan Assessment/Plan Assessment and Recs # Pancytopenia -- appears that initial hep and hiv are negative though final results to follow, liver shows no major hsm or cirrhosis, may consider meds or bone marrow process, smear reviewed --> this pancytopenia is acute in onset, over last several days, thus most likely abx infection related --> query meds, review with ID, is on micafungin now, monitor counts closely --> if no other cause and/or worsens, may consider flow cytometry or a bone marrow biopsy --> nepogen 300mcg sq to maintain anc >1500 --> wbc trend : 1.7-->4.3-->3.1-->3.4-->7.7-->8.1--12-->15-->11 # Anemia of chronic disease - monitor anemia panel --> hemolysis does not appear to be the case --> anemia panel reviewed --> hgb trend: 8.3-->9.2-->8.9-->8.7-->9-->7.7 # Paroxysmal atrial fibrillation, due to CHADS-VASC score of 5, we require to keep anticoagulated, on metoprolol --> continue on apixaban # Hx of CAD, s/p CABG, ASA , atorvastatin and metoprolol. No wall motion abnormalities on Echo. LVEF ~55%. --> appreciate cards recs # Sinus tachycardia due to hypovolemia, resolved. # DKA, resolved. --> continue monitor # DM, non-compliant with medications. # Hx of HTN, controlled with metoprolol. # pancreatitis # increased LFT The timing of this note does not necessarily reflect the time of the patient was seen. Greatly appreciate consultation! Subjective Allergies: Coded Allergies: SHELLFISH DERIVED (Verified Allergy, Unknown, swelling and itchiness, 05/14) Subjective 05/18: Pt is awake and comfortable, no events, leukopenia improved, wbc 4.3, plt 151 05/19: seen by bedside, awake, comfortable, plt 122 05/20: Pt is awake and comfortable, no events 05/21: Pt is seen in the room, resting in bed, no fevers or chills, wbc 8.7, plt 117 05/23: Pt is resting in bed, awake, comfortable, no fevers or chills, no acute distress. 2/: EGD and EUS done today, has no gallbladder stones, only pancreatitis, no events 2: no events, dermatitis has improved, off loading of heels, pancreatitis and dka better 2: Pt is awake, comfortable, no acute events overnight, hgb 8.6 2: seen by bedside, awake, comfortable, no events 05/28: resting in bed, awake, comfortable, no fevers or chills, no acute distress , No need for ERCP per GI, 05/31: Pt is awake and comfortable, no events 06/01: awake, comfortable, denies acute distress. 06/02: seen by bedside, awake, comfortable, no acute distress. wbc 15. 06/03: no acute events, denies any abdominal pain, wbc trending down at 11 today. 06/04: awake/drowsy in bed, breathing easily on nasal cannula, denies SOB and pain at this time. Objective Last 24 Hour Vital Signs Date Time Temp Pulse Resp B/P (MAP) Pulse Ox O2 Delivery O2 Flow Rate FiO2 06/04/18 17:49 76 143/67 06/04/18 17:48 143/67 06/04/18 16:00 97.7 72 24 127/60 (82) 93 06/04/18 16:00 77 06/04/18 12:00 98.2 66 21 133/53 (79) 96 06/04/18 12:00 75 06/04/18 11:50 116/58 06/04/18 09:00 Nasal Cannula 4.0 06/04/18 08:30 79 116/58 06/04/18 08:30 79 116/58 06/04/18 08:00 72 06/04/18 08:00 97.2 72 20 126/62 (83) 95 06/04/18 07:56 79 22 Nasal Cannula 5.0 40 06/04/18 07:56 Nasal Cannula 5.0 40 06/04/18 07:56 96 Nasal Cannula 5.0 40 06/04/18 05:45 116/58 06/04/18 04:00 98.0 61 19 116/58 (77) 98 06/04/18 04:00 61 06/04/18 03:15 60 20 97 Facial 50 06/04/18 01:46 66 18 98 Facial 50 06/04/18 00:41 120/62 06/04/18 00:00 61 06/04/18 00:00 98.6 67 19 120/62 (81) 99 06/03/18 23:39 64 19 97 Facial 50 06/03/18 21:34 71 20 97 Facial 50 06/03/18 21:29 75 128/63 06/03/18 21:00 Nasal Cannula 4.0 Intake and Output 06/03/18 06/04/18 19:00 07:00 Intake Total 617.3 ml 110 ml Balance 617.3 ml 110 ml Intake Oral 480 ml IV Total 137.3 ml 110 ml # Voids 1 1 # Bowel Movements 1 Laboratory Tests 06/04/18 04:30: White Blood Count 10.9H, Red Blood Count 2.84L, Hemoglobin 7.7L, Hematocrit 25.1L, Mean Corpuscular Volume 88, Mean Corpuscular Hemoglobin 27.1, Mean Corpuscular Hemoglobin Concent 30.7L, Red Cell Distribution Width 22.2H, Platelet Count 265, Mean Platelet Volume 6.3L, Neutrophils (%) (Auto) , Lymphocytes (%) (Auto) , Monocytes (%) (Auto) , Eosinophils (%) (Auto) , Basophils (%) (Auto) , Differential Total Cells Counted 100, Neutrophils % ( Manual) 77H, Lymphocytes % (Manual) 13L, Monocytes % (Manual) 10, Eosinophils % (Manual) 0, Basophils % (Manual) 0, Band Neutrophils 0, Platelet Estimate Adequate, Platelet Morphology Normal, Anisocytosis 2+, Microcytosis 1+, Sodium Level 146H, Potassium Level 3.2L, Chloride Level 110H, Carbon Dioxide Level 25, Anion Gap 11, Blood Urea Nitrogen 23H, Creatinine 1.9H, Estimat Glomerular Filtration Rate 26.1, Glucose Level 125H, Calcium Level 8.4L, Total Bilirubin 1.1H, Direct Bilirubin 0.4H, Aspartate Amino Transf (AST/SGOT) 30, Alanine Aminotransferase (ALT/SGPT) 40, Alkaline Phosphatase 366H, Total Protein 6.6, Albumin 2.2L, Globulin 4.4, Albumin/Globulin Ratio 0.5L, Lipase 404H Height (Feet): 4 Height (Inches): 10.00 Weight (Pounds): 175 Objective PHYSICAL EXAMINATION: GENERAL: Pleasant [place] woman seen in the ICU. HEENT: Normocephalic and atraumatic. Sclerae anicteric. Oropharynx clear. NECK: Supple. CHEST: Clear to auscultation. CARDIOVASCULAR: Revealed regular rate. ABDOMEN: Soft. Good bowel sounds. There is no organomegaly or tenderness. Anterior chest and abdomen scars were as expected. EXTREMITIES: Revealed no edema. Armando Bowen MD Jun 04, 2018 20:34
--- NOTE | 2018-06-04 20:35 | General Progress Note ---
Assessment/Plan Problem List: (1) Acute metabolic encephalopathy ICD Codes: G93.41 - Metabolic encephalopathy SNOMED: [id number], [id number] Assessment/Plan Zyprexa 2.5mg po qhs Haldol prn limit using benzos may increase risk of aspiration restraints. Subjective Neurologic/Psychiatric: Reports: anxiety, depressed Allergies: Coded Allergies: SHELLFISH DERIVED (Verified Allergy, Unknown, swelling and itchiness, 05/14) Subjective less agitated calmer less confused Objective Last 24 Hour Vital Signs Date Time Temp Pulse Resp B/P (MAP) Pulse Ox O2 Delivery O2 Flow Rate FiO2 06/04/18 17:49 76 143/67 06/04/18 17:48 143/67 06/04/18 16:00 97.7 72 24 127/60 (82) 93 06/04/18 16:00 77 06/04/18 12:00 98.2 66 21 133/53 (79) 96 06/04/18 12:00 75 06/04/18 11:50 116/58 06/04/18 09:00 Nasal Cannula 4.0 06/04/18 08:30 79 116/58 06/04/18 08:30 79 116/58 06/04/18 08:00 72 06/04/18 08:00 97.2 72 20 126/62 (83) 95 06/04/18 07:56 79 22 Nasal Cannula 5.0 40 06/04/18 07:56 Nasal Cannula 5.0 40 06/04/18 07:56 96 Nasal Cannula 5.0 40 06/04/18 05:45 116/58 06/04/18 04:00 98.0 61 19 116/58 (77) 98 06/04/18 04:00 61 06/04/18 03:15 60 20 97 Facial 50 06/04/18 01:46 66 18 98 Facial 50 06/04/18 00:41 120/62 06/04/18 00:00 61 06/04/18 00:00 98.6 67 19 120/62 (81) 99 06/03/18 23:39 64 19 97 Facial 50 06/03/18 21:34 71 20 97 Facial 50 06/03/18 21:29 75 128/63 06/03/18 21:00 Nasal Cannula 4.0 Intake and Output 06/03/18 06/04/18 19:00 07:00 Intake Total 617.3 ml 110 ml Balance 617.3 ml 110 ml Intake Oral 480 ml IV Total 137.3 ml 110 ml # Voids 1 1 # Bowel Movements 1 Laboratory Tests 06/04/18 04:30: White Blood Count 10.9H, Red Blood Count 2.84L, Hemoglobin 7.7L, Hematocrit 25.1L, Mean Corpuscular Volume 88, Mean Corpuscular Hemoglobin 27.1, Mean Corpuscular Hemoglobin Concent 30.7L, Red Cell Distribution Width 22.2H, Platelet Count 265, Mean Platelet Volume 6.3L, Neutrophils (%) (Auto) , Lymphocytes (%) (Auto) , Monocytes (%) (Auto) , Eosinophils (%) (Auto) , Basophils (%) (Auto) , Differential Total Cells Counted 100, Neutrophils % ( Manual) 77H, Lymphocytes % (Manual) 13L, Monocytes % (Manual) 10, Eosinophils % (Manual) 0, Basophils % (Manual) 0, Band Neutrophils 0, Platelet Estimate Adequate, Platelet Morphology Normal, Anisocytosis 2+, Microcytosis 1+, Sodium Level 146H, Potassium Level 3.2L, Chloride Level 110H, Carbon Dioxide Level 25, Anion Gap 11, Blood Urea Nitrogen 23H, Creatinine 1.9H, Estimat Glomerular Filtration Rate 26.1, Glucose Level 125H, Calcium Level 8.4L, Total Bilirubin 1.1H, Direct Bilirubin 0.4H, Aspartate Amino Transf (AST/SGOT) 30, Alanine Aminotransferase (ALT/SGPT) 40, Alkaline Phosphatase 366H, Total Protein 6.6, Albumin 2.2L, Globulin 4.4, Albumin/Globulin Ratio 0.5L, Lipase 404H Height (Feet): 4 Height (Inches): 10.00 Weight (Pounds): 175 Lynne Crane MD Jun 04, 2018 20:35
--- NOTE | 2018-06-04 20:39 | NUR ---
NURSE NOTES: Notified Dr. Bowen regarding patient's hgb 7.7. Awaiting for call back.
[2018-06-04] MEDS: OLANZapine 2.5mg tab ORAL SCH (20:53)
[2018-06-04] MEDS: Dyna-Hex 2% Top Sol 2oz TOPIC SCH (20:54)
[2018-06-05] VITALS: BP 139/59
[2018-06-05] MEDS: HydrALAZINE 25mg tab ORAL SCH ×4 (00:46→16:50)
[2018-06-05 04:00] VITALS: BP 150/69
[2018-06-05 05:46] LABS: HEMATOCRIT 25.6 % (37.0-47.0); HEMOGLOBIN 7.9 G/DL (12.0-16.0); MEAN CORPUSCULAR VOLUME 89 FL (80-99); PLATELET COUNT 258 K/UL (150-450); RED BLOOD COUNT 2.88 M/UL (4.20-5.40); RED CELL DISTRIBUTION WIDTH 23.2 % (11.6-14.8); WHITE BLOOD COUNT 10.7 K/UL (4.8-10.8)
--- NOTE | 2018-06-05 05:52 | NUR ---
NURSE NOTES: Blood drawn taken at PICC Line. Sent to Lab.
[2018-06-05 06:07] LABS: ALANINE AMINOTRANSFERASE 39 U/L (12-78); ALBUMIN 2.2 G/DL (3.4-5.0); ALBUMIN/GLOBULIN RATIO 0.5 (1.0-2.7); ALKALINE PHOSPHATASE 413 U/L (46-116); AMYLASE 66 U/L (25-115); ANION GAP 11 mmol/L (5-15); ASPARTATE AMINO TRANSFERASE 28 U/L (15-37); BILIRUBIN,TOTAL 0.9 MG/DL (0.2-1.0); BLOOD UREA NITROGEN 22 mg/dL (7-18); CALCIUM 7.8 MG/DL (8.5-10.1); CARBON DIOXIDE 25 MMOL/L (21-32); CHLORIDE 109 MMOL/L (98-107); CREATININE 1.8 MG/DL (0.55-1.30); POTASSIUM 3.8 MMOL/L (3.5-5.1); SODIUM 145 MMOL/L (136-145)
--- NOTE | 2018-06-05 06:27 | NUR ---
NURSE NOTES: Blood drawn from PICC on LUE and sent to the lab
[2018-06-05] MEDS: NovoLOG Insulin Flexpen SUBQ SCH ×4 (06:39→21:00)
[2018-06-05] MEDS: LORazepam 1mg tab ORAL PRN ×2 (07:29→14:31)
--- NOTE | 2018-06-05 07:30 | NUR ---
HAND-OFF: Report given to WAYNE Maurice. Endorsed plan of care.
[2018-06-05 08:00] VITALS: BP 143/70
--- NOTE | 2018-06-05 08:00 | NUR ---
NURSE NOTES: Pt awake/anxious in bed, rapid shallow breathing on 4 lpm nasal cannula, c/o SOB due to anxiety but pain at this time. Pt asking for ativan, given. Vital signs stable with SR at 70 on monitor. PICC OMAR with one lumen NS at TKO, the other lumen flushed with 10 ml NS and locked. Purewick in place draining clear dark yellow/kira urine to collection canister on wall. Heel protectors on bilat. Low airloss mattress installed and running. Pt repositioned to high fowlers position. Oral care/rinse done. Bed left in low position, exit alarm set, side rails up x 3 and call light left near pt's hand.
[2018-06-05] MEDS: Metoprolol Tartrate 50mg tab ORAL SCH ×2 (08:46→21:00)
[2018-06-05] MEDS: Aspirin Baby 81mg ORAL SCH (08:46)
[2018-06-05] MEDS: Enoxaparin 80mg Inj SUBQ SCH (08:47)
[2018-06-05] MEDS: cefTRIAXone 1 GM in D5W 55 ML IVPB SCH (08:48)
--- NOTE | 2018-06-05 10:17 | NUR ---
CASE MANAGEMENT: REVIEW 06/05/2015 SI:DM W/ DKA W/O COMA. T 96.3 HR 73 RR 22 B/P 143/70 SATS 98% ON 4L/NC CL 109 BUN 22 CR 1.8 GLU 171 IS:PROTONIX PO QAM ZYPREXA PO QHS NORVASC PO BID ASA PO QD INSULIN ASPART SUBQ AC/HS LOPRESSOR PO Q12H CEFTRIAXONE IV Q24H HYDRALAZINE PO Q6H TELE STATUS DCP: PATIENT TO BE DISCHARGED TO HOME ONCE MEDICALLY CLEARED. PLAN OF CARE: GLYCEMIC CONTROL AND MONITORING
--- NOTE | 2018-06-05 11:21 | General Progress Note ---
Assessment/Plan Problem List: (1) HTN (hypertension) ICD Codes: I10 - Essential (primary) hypertension SNOMED: 16350771 (2) Pneumonia ICD Codes: J18.9 - Pneumonia, unspecified organism SNOMED: 307537973 (3) Diabetes ICD Codes: E11.9 - Type 2 diabetes mellitus without complications SNOMED: 26355120 (4) UTI (urinary tract infection) ICD Codes: N39.0 - Urinary tract infection, site not specified SNOMED: 06795320 Qualifiers: Qualified Codes: N39.0 - Urinary tract infection, site not specified (5) Pancreatitis ICD Codes: K85.90 - Acute pancreatitis without necrosis or infection, unspecified SNOMED: 75243204 Qualifiers: Qualified Codes: K85.90 - Acute pancreatitis without necrosis or infection, unspecified (6) Gout ICD Codes: M10.9 - Gout, unspecified SNOMED: 29366132 Qualifiers: Qualified Codes: M10.9 - Gout, unspecified (7) Anemia ICD Codes: D64.9 - Anemia, unspecified SNOMED: 256165983 Assessment/Plan Assessment/Plan Status post EUS summary of findings 1. Pancreatitis, most probably acute, without any pancreatic duct dilatation or mass. 2. No evidence of any common bile duct dilatation was seen with common bile duct stone. 3. Gallbladder wall thickening, nonspecific. 4. 1 cm kristina hepatis lymph node, nonspecific. Elevated lipase levels, downtrending RECOMMENDATIONS: No need for ERCP Pain management Trend lipase Zofran as needed Follow-up labs anemia work up Subjective ROS Limited/Unobtainable: No Allergies: Coded Allergies: SHELLFISH DERIVED (Verified Allergy, Unknown, swelling and itchiness, 05/14) Subjective skin rash Objective Last 24 Hour Vital Signs Date Time Temp Pulse Resp B/P (MAP) Pulse Ox O2 Delivery O2 Flow Rate FiO2 06/05/18 08:50 91 22 Nasal Cannula 4.0 36 06/05/18 08:50 96 Nasal Cannula 4.0 36 06/05/18 08:50 Nasal Cannula 4.0 36 06/05/18 08:46 73 143/70 06/05/18 08:46 73 143/70 06/05/18 08:00 96.3 73 22 143/70 (94) 98 06/05/18 06:10 98.0 06/05/18 05:48 73 23 94 Facial 50 06/05/18 05:38 150/69 06/05/18 04:15 70 06/05/18 04:00 99.3 72 20 150/69 (96) 95 06/05/18 00:46 139/59 06/05/18 00:00 99.0 96 18 139/59 (85) 96 06/04/18 23:25 64 06/04/18 21:00 Nasal Cannula 4.0 06/04/18 20:53 82 127/69 06/04/18 20:00 97.7 82 20 127/69 (88) 97 06/04/18 19:00 77 06/04/18 18:50 80 22 Nasal Cannula 4.0 36 06/04/18 18:50 97 Nasal Cannula 4.0 36 06/04/18 18:50 Nasal Cannula 4.0 36 06/04/18 17:49 76 143/67 06/04/18 17:48 143/67 06/04/18 16:00 97.7 72 24 127/60 (82) 93 06/04/18 16:00 77 06/04/18 12:00 98.2 66 21 133/53 (79) 96 06/04/18 12:00 75 06/04/18 11:50 116/58 Intake and Output 06/04/18 06/05/18 18:59 06:59 Intake Total 120 ml Balance 120 ml Intake Oral 120 ml # Voids 2 2 Laboratory Tests 06/05/18 04:50: White Blood Count 10.7, Red Blood Count 2.88L, Hemoglobin 7.9L, Hematocrit 25.6L , Mean Corpuscular Volume 89, Mean Corpuscular Hemoglobin 27.4, Mean Corpuscular Hemoglobin Concent 30.8L, Red Cell Distribution Width 23.2H, Platelet Count 258, Mean Platelet Volume 6.2L, Neutrophils (%) (Auto) , Lymphocytes (%) (Auto) , Monocytes (%) (Auto) , Eosinophils (%) (Auto) , Basophils (%) (Auto) , Differential Total Cells Counted 100, Neutrophils % ( Manual) 78H, Lymphocytes % (Manual) 13L, Monocytes % (Manual) 8, Eosinophils % ( Manual) 1, Basophils % (Manual) 0, Band Neutrophils 0, Platelet Estimate Adequate, Platelet Morphology Normal, Polychromasia 1+, Hypochromasia 1+, Anisocytosis 2+, Sodium Level 145, Potassium Level 3.8, Chloride Level 109H, Carbon Dioxide Level 25, Anion Gap 11, Blood Urea Nitrogen 22H, Creatinine 1.8H , Estimat Glomerular Filtration Rate 27.8, Glucose Level 171H, Calcium Level 7.8L, Total Bilirubin 0.9, Aspartate Amino Transf (AST/SGOT) 28, Alanine Aminotransferase (ALT/SGPT) 39, Alkaline Phosphatase 413H, Total Protein 6.9, Albumin 2.2L, Globulin 4.7, Albumin/Globulin Ratio 0.5L, Amylase Level 66, Lipase 554H Height (Feet): 4 Height (Inches): 10.00 Weight (Pounds): 179 General Appearance: no apparent distress EENT: normal ENT inspection Neck: supple Cardiovascular: normal rate Respiratory/Chest: decreased breath sounds Abdomen: normal bowel sounds, non tender, soft Extremities: non-tender Neeraj Benito MD Jun 05, 2018 11:21
--- NOTE | 2018-06-05 11:26 | General Progress Note ---
Assessment/Plan Assessment/Plan Impression Diabetic ketoacidosis Anemia Transaminitis of unclear etiology Severe protein calorie malnutrition Evidence of pancreatitis, better Acute renal failure, improved Hyperglycemia Diabetes Hyponatremia Metabolic acidosis Hypercholesterolemia fever oral ulcers afib with RVR leukopenia pancreatitis CVA dc planning next week on antibiotics with + cultures; per ID on lovenox ? eliquis may need transfusion; monitor HH care noted; will need rehab with current status impression, plan, and exam edited and reviewed in detail care discussed with RN Subjective ROS Limited/Unobtainable: Yes Allergies: Coded Allergies: SHELLFISH DERIVED (Verified Allergy, Unknown, swelling and itchiness, 05/14) Subjective care noted NAD Objective Last 24 Hour Vital Signs Date Time Temp Pulse Resp B/P (MAP) Pulse Ox O2 Delivery O2 Flow Rate FiO2 06/05/18 08:50 91 22 Nasal Cannula 4.0 36 06/05/18 08:50 96 Nasal Cannula 4.0 36 06/05/18 08:50 Nasal Cannula 4.0 36 06/05/18 08:46 73 143/70 06/05/18 08:46 73 143/70 06/05/18 08:00 96.3 73 22 143/70 (94) 98 06/05/18 06:10 98.0 06/05/18 05:48 73 23 94 Facial 50 06/05/18 05:38 150/69 06/05/18 04:15 70 06/05/18 04:00 99.3 72 20 150/69 (96) 95 06/05/18 00:46 139/59 06/05/18 00:00 99.0 96 18 139/59 (85) 96 06/04/18 23:25 64 06/04/18 21:00 Nasal Cannula 4.0 06/04/18 20:53 82 127/69 06/04/18 20:00 97.7 82 20 127/69 (88) 97 06/04/18 19:00 77 06/04/18 18:50 80 22 Nasal Cannula 4.0 36 06/04/18 18:50 97 Nasal Cannula 4.0 36 06/04/18 18:50 Nasal Cannula 4.0 36 06/04/18 17:49 76 143/67 06/04/18 17:48 143/67 06/04/18 16:00 97.7 72 24 127/60 (82) 93 06/04/18 16:00 77 06/04/18 12:00 98.2 66 21 133/53 (79) 96 06/04/18 12:00 75 06/04/18 11:50 116/58 Intake and Output 06/04/18 06/05/18 18:59 06:59 Intake Total 120 ml Balance 120 ml Intake Oral 120 ml # Voids 2 2 Laboratory Tests 06/05/18 04:50: White Blood Count 10.7, Red Blood Count 2.88L, Hemoglobin 7.9L, Hematocrit 25.6L , Mean Corpuscular Volume 89, Mean Corpuscular Hemoglobin 27.4, Mean Corpuscular Hemoglobin Concent 30.8L, Red Cell Distribution Width 23.2H, Platelet Count 258, Mean Platelet Volume 6.2L, Neutrophils (%) (Auto) , Lymphocytes (%) (Auto) , Monocytes (%) (Auto) , Eosinophils (%) (Auto) , Basophils (%) (Auto) , Differential Total Cells Counted 100, Neutrophils % ( Manual) 78H, Lymphocytes % (Manual) 13L, Monocytes % (Manual) 8, Eosinophils % ( Manual) 1, Basophils % (Manual) 0, Band Neutrophils 0, Platelet Estimate Adequate, Platelet Morphology Normal, Polychromasia 1+, Hypochromasia 1+, Anisocytosis 2+, Sodium Level 145, Potassium Level 3.8, Chloride Level 109H, Carbon Dioxide Level 25, Anion Gap 11, Blood Urea Nitrogen 22H, Creatinine 1.8H , Estimat Glomerular Filtration Rate 27.8, Glucose Level 171H, Calcium Level 7.8L, Total Bilirubin 0.9, Aspartate Amino Transf (AST/SGOT) 28, Alanine Aminotransferase (ALT/SGPT) 39, Alkaline Phosphatase 413H, Total Protein 6.9, Albumin 2.2L, Globulin 4.7, Albumin/Globulin Ratio 0.5L, Amylase Level 66, Lipase 554H Height (Feet): 4 Height (Inches): 10.00 Weight (Pounds): 179 Objective WDWN more alert clear breath sounds bilaterally without rhonchi or wheeze S1S2 RRR without MRG NABS nontender no HSM no CCE remains weak alert Jesus Lew MD Jun 05, 2018 11:26
[2018-06-05 12:00] VITALS: BP 134/52
[2018-06-05] MEDS: Haloperidol 5mg/ml Inj IM PRN ×2 (13:26→21:56)
[2018-06-05 16:00] VITALS: BP 128/61
--- NOTE | 2018-06-05 19:25 | NUR ---
NURSE NOTES: Got report from Josafat RN. Pt in stable condition. Denies any pain. No s/s of distress noted. Pt resting in bed comfortably. Bed in low and locked position, call light within reach, bedside table within reach. Continue to monitor.
[2018-06-05 20:00] VITALS: BP 142/62
[2018-06-05] MEDS: Dyna-Hex 2% Top Sol 2oz TOPIC SCH (20:22)
[2018-06-05] MEDS: OLANZapine 2.5mg tab ORAL SCH (21:00)
--- NOTE | 2018-06-05 21:45 | Cardiology Progress Note ---
Assessment/Plan Assessment/Plan 1. Paroxysmal atrial fibrillation, in SR now, due to CHADS-VASC score of 5, continue enoxaparin and metoprolol. 2. Hx of CAD, s/p CABG, ASA , atorvastatin and metoprolol. No wall motion abnormalities on Echo. LVEF ~55%. 3. Sinus tachycardia, resolved, due to hypovolemia. 4. DKA, resolved. 5. DM 6. HTN, well controlled, continue amlodipine, metoprolol and hydralazine. 7. Severe pulmonary HTN. 8. MAMADOU, creatinine down to 1.8. 9. Hypokalemia, resolved, K at 3.8. Subjective Subjective Sinus rhythm at rate of 77. Objective Last 24 Hour Vital Signs Date Time Temp Pulse Resp B/P (MAP) Pulse Ox O2 Delivery O2 Flow Rate FiO2 06/05/18 21:00 77 142/62 06/05/18 19:29 Nasal Cannula 4.0 36 06/05/18 19:27 95 Nasal Cannula 4.0 36 06/05/18 19:25 81 Nasal Cannula 4.0 36 06/05/18 17:34 74 18 99 Facial 50 06/05/18 16:50 143/70 06/05/18 16:50 82 143/70 06/05/18 16:00 97.9 68 24 128/61 (83) 96 06/05/18 16:00 82 06/05/18 15:46 71 18 98 Facial 50 06/05/18 13:28 72 25 96 Facial 50 06/05/18 12:07 143/70 06/05/18 12:00 76 06/05/18 12:00 96.8 74 24 134/52 (79) 97 06/05/18 09:00 Nasal Cannula 4.0 06/05/18 08:50 91 22 Nasal Cannula 4.0 36 06/05/18 08:50 96 Nasal Cannula 4.0 36 06/05/18 08:50 Nasal Cannula 4.0 36 06/05/18 08:46 73 143/70 06/05/18 08:46 73 143/70 06/05/18 08:00 96.3 73 22 143/70 (94) 98 06/05/18 08:00 73 06/05/18 06:10 98.0 06/05/18 05:48 73 23 94 Facial 50 06/05/18 05:38 150/69 06/05/18 04:15 70 06/05/18 04:00 99.3 72 20 150/69 (96) 95 06/05/18 00:46 139/59 06/05/18 00:00 99.0 96 18 139/59 (85) 96 06/04/18 23:25 64 Intake and Output 06/04/18 06/05/18 19:00 07:00 Intake Total 120 ml Balance 120 ml Intake Oral 120 ml # Voids 2 2 2D Echo: EF55%,Mild LVH,Mod MR,Mild AR,RVSP 67 mmHg (severe PHT),Restrictive LV phy Laboratory Tests Test 06/05/18 04:50 White Blood Count 10.7 K/UL (4.8-10.8) Red Blood Count 2.88 M/UL (4.20-5.40) L Hemoglobin 7.9 G/DL (12.0-16.0) L Hematocrit 25.6 % (37.0-47.0) L Mean Corpuscular Volume 89 FL (80-99) Mean Corpuscular Hemoglobin 27.4 PG (27.0-31.0) Mean Corpuscular Hemoglobin Concent 30.8 G/DL (32.0-36.0) L Red Cell Distribution Width 23.2 % (11.6-14.8) H Platelet Count 258 K/UL (150-450) Mean Platelet Volume 6.2 FL (6.5-10.1) L Neutrophils (%) (Auto) % (45.0-75.0) Lymphocytes (%) (Auto) % (20.0-45.0) Monocytes (%) (Auto) % (1.0-10.0) Eosinophils (%) (Auto) % (0.0-3.0) Basophils (%) (Auto) % (0.0-2.0) Differential Total Cells Counted 100 Neutrophils % (Manual) 78 % (45-75) H Lymphocytes % (Manual) 13 % (20-45) L Monocytes % (Manual) 8 % (1-10) Eosinophils % (Manual) 1 % (0-3) Basophils % (Manual) 0 % (0-2) Band Neutrophils 0 % (0-8) Platelet Estimate Adequate Platelet Morphology Normal Polychromasia 1+ Hypochromasia 1+ Anisocytosis 2+ Sodium Level 145 MMOL/L (136-145) Potassium Level 3.8 MMOL/L (3.5-5.1) Chloride Level 109 MMOL/L (98-107) H Carbon Dioxide Level 25 MMOL/L (21-32) Anion Gap 11 mmol/L (5-15) Blood Urea Nitrogen 22 mg/dL (7-18) H Creatinine 1.8 MG/DL (0.55-1.30) H Estimat Glomerular Filtration Rate 27.8 mL/min (>60) Glucose Level 171 MG/DL (74-106) H Calcium Level 7.8 MG/DL (8.5-10.1) L Total Bilirubin 0.9 MG/DL (0.2-1.0) Aspartate Amino Transf (AST/SGOT) 28 U/L (15-37) Alanine Aminotransferase (ALT/SGPT) 39 U/L (12-78) Alkaline Phosphatase 413 U/L (46-116) H Total Protein 6.9 G/DL (6.4-8.2) Albumin 2.2 G/DL (3.4-5.0) L Globulin 4.7 g/dL Albumin/Globulin Ratio 0.5 (1.0-2.7) L Amylase Level 66 U/L (25-115) Lipase 554 U/L (73-393) H Objective HEENT: Normocephalic, atraumatic, Pupils equally reactive to light and accommodation, EOMI. NECK: No JVD, no carotid bruit. CARDIOVASCULAR: Regular rate and rhythm. No murmurs, gallops or rubs. LUNGS: Clear to auscultation bilaterally. No crackles or Rhonchi. ABDOMEN: Soft and nontender. No organomegaly, + BS. EXTREMITIES: No cyanosis, clubbing or edema. Miller Mckeon MD Jun 05, 2018 21:45
--- NOTE | 2018-06-05 22:10 | General Progress Note ---
Assessment/Plan Problem List: (1) Acute metabolic encephalopathy ICD Codes: G93.41 - Metabolic encephalopathy SNOMED: 87917375, 746526419 Assessment/Plan Zyprexa 2.5mg po qhs Haldol prn limit using benzos may increase risk of aspiration restraints. Subjective Neurologic/Psychiatric: Reports: anxiety Allergies: Coded Allergies: SHELLFISH DERIVED (Verified Allergy, Unknown, swelling and itchiness, 05/14) Subjective less agitated calmer less confused Objective Last 24 Hour Vital Signs Date Time Temp Pulse Resp B/P (MAP) Pulse Ox O2 Delivery O2 Flow Rate FiO2 06/05/18 21:00 77 142/62 06/05/18 19:29 Nasal Cannula 4.0 36 06/05/18 19:27 95 Nasal Cannula 4.0 36 06/05/18 19:25 81 Nasal Cannula 4.0 36 06/05/18 17:34 74 18 99 Facial 50 06/05/18 16:50 143/70 06/05/18 16:50 82 143/70 06/05/18 16:00 97.9 68 24 128/61 (83) 96 06/05/18 16:00 82 06/05/18 15:46 71 18 98 Facial 50 06/05/18 13:28 72 25 96 Facial 50 06/05/18 12:07 143/70 06/05/18 12:00 76 06/05/18 12:00 96.8 74 24 134/52 (79) 97 06/05/18 09:00 Nasal Cannula 4.0 06/05/18 08:50 91 22 Nasal Cannula 4.0 36 06/05/18 08:50 96 Nasal Cannula 4.0 36 06/05/18 08:50 Nasal Cannula 4.0 36 06/05/18 08:46 73 143/70 06/05/18 08:46 73 143/70 06/05/18 08:00 96.3 73 22 143/70 (94) 98 06/05/18 08:00 73 06/05/18 06:10 98.0 06/05/18 05:48 73 23 94 Facial 50 06/05/18 05:38 150/69 06/05/18 04:15 70 06/05/18 04:00 99.3 72 20 150/69 (96) 95 06/05/18 00:46 139/59 06/05/18 00:00 99.0 96 18 139/59 (85) 96 06/04/18 23:25 64 Intake and Output 06/04/18 06/05/18 19:00 07:00 Intake Total 120 ml Balance 120 ml Intake Oral 120 ml # Voids 2 2 Laboratory Tests 06/05/18 04:50: White Blood Count 10.7, Red Blood Count 2.88L, Hemoglobin 7.9L, Hematocrit 25.6L , Mean Corpuscular Volume 89, Mean Corpuscular Hemoglobin 27.4, Mean Corpuscular Hemoglobin Concent 30.8L, Red Cell Distribution Width 23.2H, Platelet Count 258, Mean Platelet Volume 6.2L, Neutrophils (%) (Auto) , Lymphocytes (%) (Auto) , Monocytes (%) (Auto) , Eosinophils (%) (Auto) , Basophils (%) (Auto) , Differential Total Cells Counted 100, Neutrophils % ( Manual) 78H, Lymphocytes % (Manual) 13L, Monocytes % (Manual) 8, Eosinophils % ( Manual) 1, Basophils % (Manual) 0, Band Neutrophils 0, Platelet Estimate Adequate, Platelet Morphology Normal, Polychromasia 1+, Hypochromasia 1+, Anisocytosis 2+, Sodium Level 145, Potassium Level 3.8, Chloride Level 109H, Carbon Dioxide Level 25, Anion Gap 11, Blood Urea Nitrogen 22H, Creatinine 1.8H , Estimat Glomerular Filtration Rate 27.8, Glucose Level 171H, Calcium Level 7.8L, Total Bilirubin 0.9, Aspartate Amino Transf (AST/SGOT) 28, Alanine Aminotransferase (ALT/SGPT) 39, Alkaline Phosphatase 413H, Total Protein 6.9, Albumin 2.2L, Globulin 4.7, Albumin/Globulin Ratio 0.5L, Amylase Level 66, Lipase 554H Height (Feet): 4 Height (Inches): 10.00 Weight (Pounds): 179 Lynne Crane MD Jun 05, 2018 22:10
[2018-06-06] VITALS (7 sets, daily range): BP systolic 114–142; BP diastolic 54–82
[2018-06-06] MEDS: Haloperidol 5mg/ml Inj IM PRN ×2 (05:16→23:00)
[2018-06-06] MEDS: HydrALAZINE 25mg tab ORAL SCH ×4 (05:49→17:16)
[2018-06-06] MEDS: NovoLOG Insulin Flexpen SUBQ SCH ×4 (06:11→20:52)
--- NOTE | 2018-06-06 07:58 | NUR ---
HAND-OFF: Report given to Josafat Zaidi. endorsed plan of care.
--- NOTE | 2018-06-06 08:00 | NUR ---
NURSE NOTES: Pt asleep in bed, breathing easily on 4 lpm nasal cannula, Vital signs stable with SR at 70 on monitor. PICC OMAR with one lumen NS at TKO, the other lumen flushed with 10 ml NS and locked. Purewick in place draining clear yellow/kira urine to collection canister on wall. Low airloss mattress installed and running. Dr Lew at bedside. Pt repositioned to high fowlers position. Oral care/rinse done. Bed left in low position, exit alarm set, side rails up x 3 and call light left near pt's hand.
[2018-06-06] MEDS: LORazepam 1mg tab ORAL PRN ×2 (08:34→20:02)
[2018-06-06] MEDS: Metoprolol Tartrate 50mg tab ORAL SCH ×2 (08:51→20:36)
[2018-06-06] MEDS: cefTRIAXone 1 GM in D5W 55 ML IVPB SCH (08:51)
[2018-06-06] MEDS: Aspirin Baby 81mg ORAL SCH (08:52)
[2018-06-06] MEDS: Enoxaparin 80mg Inj SUBQ SCH (08:52)
--- NOTE | 2018-06-06 10:21 | General Progress Note ---
Assessment/Plan Assessment/Plan Impression Diabetic ketoacidosis Anemia Transaminitis of unclear etiology Severe protein calorie malnutrition Evidence of pancreatitis, better Acute renal failure, improved Hyperglycemia Diabetes Hyponatremia Metabolic acidosis Hypercholesterolemia fever oral ulcers afib with RVR leukopenia pancreatitis CVA d/w family about GT- they will discuss and call back needs nutrition on antibiotics with + cultures; per ID on lovenox ? eliquis may need transfusion; monitor HH for change care noted; will need rehab with current status still very weak swallow evaluation impression, plan, and exam edited and reviewed in detail care discussed with RN Subjective Allergies: Coded Allergies: SHELLFISH DERIVED (Verified Allergy, Unknown, swelling and itchiness, 05/14) Subjective care noted not eating NAD Objective Last 24 Hour Vital Signs Date Time Temp Pulse Resp B/P (MAP) Pulse Ox O2 Delivery O2 Flow Rate FiO2 06/06/18 08:51 110 138/82 06/06/18 08:51 110 138/82 06/06/18 08:09 Nasal Cannula 5.0 40 06/06/18 08:09 97 Nasal Cannula 5.0 40 06/06/18 08:09 110 24 Nasal Cannula 5.0 40 06/06/18 08:00 97.2 115 21 138/82 (100) 95 06/06/18 05:49 132/54 06/06/18 04:57 90 21 97 Facial 50 06/06/18 04:00 87 06/06/18 04:00 98.0 89 20 132/54 (80) 99 06/06/18 03:10 94 19 97 Facial 50 06/06/18 01:45 91 18 98 Facial 50 06/06/18 00:44 80 06/06/18 00:00 145/70 06/06/18 00:00 98.1 104 20 114/62 (79) 95 06/05/18 21:00 Nasal Cannula 4.0 06/05/18 21:00 77 142/62 06/05/18 20:00 98.0 77 20 142/62 (88) 95 06/05/18 20:00 83 06/05/18 19:29 Nasal Cannula 4.0 36 06/05/18 19:27 95 Nasal Cannula 4.0 36 06/05/18 19:25 81 Nasal Cannula 4.0 36 06/05/18 17:34 74 18 99 Facial 50 06/05/18 16:50 143/70 2/16/19 16:50 82 143/70 06/05/18 16:00 97.9 68 24 128/61 (83) 96 06/05/18 16:00 82 06/05/18 15:46 71 18 98 Facial 50 06/05/18 13:28 72 25 96 Facial 50 06/05/18 12:07 143/70 06/05/18 12:00 76 06/05/18 12:00 96.8 74 24 134/52 (79) 97 Intake and Output 06/05/18 06/06/18 19:00 07:00 Intake Total 220 ml Output Total 300 ml Balance -80 ml Intake Oral 220 ml Output Urine Total 300 ml # Voids 2 # Bowel Movements 1 Labs Test 06/04/18 04:30 06/05/18 04:50 White Blood Count 10.9 K/UL (4.8-10.8) 10.7 K/UL (4.8-10.8) Red Blood Count 2.84 M/UL (4.20-5.40) 2.88 M/UL (4.20-5.40) Hemoglobin 7.7 G/DL (12.0-16.0) 7.9 G/DL (12.0-16.0) Hematocrit 25.1 % (37.0-47.0) 25.6 % (37.0-47.0) Mean Corpuscular Volume 88 FL (80-99) 89 FL (80-99) Mean Corpuscular Hemoglobin 27.1 PG (27.0-31.0) 27.4 PG (27.0-31.0) Mean Corpuscular Hemoglobin Concent 30.7 G/DL (32.0-36.0) 30.8 G/DL (32.0-36.0) Red Cell Distribution Width 22.2 % (11.6-14.8) 23.2 % (11.6-14.8) Platelet Count 265 K/UL (150-450) 258 K/UL (150-450) Mean Platelet Volume 6.3 FL (6.5-10.1) 6.2 FL (6.5-10.1) Neutrophils (%) (Auto) % (45.0-75.0) % (45.0-75.0) Lymphocytes (%) (Auto) % (20.0-45.0) % (20.0-45.0) Monocytes (%) (Auto) % (1.0-10.0) % (1.0-10.0) Eosinophils (%) (Auto) % (0.0-3.0) % (0.0-3.0) Basophils (%) (Auto) % (0.0-2.0) % (0.0-2.0) Differential Total Cells Counted 100 100 Neutrophils % (Manual) 77 % (45-75) 78 % (45-75) Lymphocytes % (Manual) 13 % (20-45) 13 % (20-45) Monocytes % (Manual) 10 % (1-10) 8 % (1-10) Eosinophils % (Manual) 0 % (0-3) 1 % (0-3) Basophils % (Manual) 0 % (0-2) 0 % (0-2) Band Neutrophils 0 % (0-8) 0 % (0-8) Platelet Estimate Adequate Adequate Platelet Morphology Normal Normal Anisocytosis 2+ 2+ Microcytosis 1+ Sodium Level 146 MMOL/L (136-145) 145 MMOL/L (136-145) Potassium Level 3.2 MMOL/L (3.5-5.1) 3.8 MMOL/L (3.5-5.1) Chloride Level 110 MMOL/L (98-107) 109 MMOL/L (98-107) Carbon Dioxide Level 25 MMOL/L (21-32) 25 MMOL/L (21-32) Anion Gap 11 mmol/L (5-15) 11 mmol/L (5-15) Blood Urea Nitrogen 23 mg/dL (7-18) 22 mg/dL (7-18) Creatinine 1.9 MG/DL (0.55-1.30) 1.8 MG/DL (0.55-1.30) Estimat Glomerular Filtration Rate 26.1 mL/min (>60) 27.8 mL/min (>60) Glucose Level 125 MG/DL (74-106) 171 MG/DL (74-106) Calcium Level 8.4 MG/DL (8.5-10.1) 7.8 MG/DL (8.5-10.1) Total Bilirubin 1.1 MG/DL (0.2-1.0) 0.9 MG/DL (0.2-1.0) Direct Bilirubin 0.4 MG/DL (0.0-0.3) Aspartate Amino Transf (AST/SGOT) 30 U/L (15-37) 28 U/L (15-37) Alanine Aminotransferase (ALT/SGPT) 40 U/L (12-78) 39 U/L (12-78) Alkaline Phosphatase 366 U/L (46-116) 413 U/L (46-116) Total Protein 6.6 G/DL (6.4-8.2) 6.9 G/DL (6.4-8.2) Albumin 2.2 G/DL (3.4-5.0) 2.2 G/DL (3.4-5.0) Globulin 4.4 g/dL 4.7 g/dL Albumin/Globulin Ratio 0.5 (1.0-2.7) 0.5 (1.0-2.7) Lipase 404 U/L (73-393) 554 U/L (73-393) Polychromasia 1+ Hypochromasia 1+ Amylase Level 66 U/L (25-115) Height (Feet): 4 Height (Inches): 10.00 Weight (Pounds): 178 Objective WDWN more alert clear breath sounds bilaterally without rhonchi or wheeze S1S2 RRR without MRG NABS nontender no HSM no CCE remains weak Jesus Lew MD Jun 06, 2018 10:21
[2018-06-06 10:41] LABS: HEMATOCRIT 22.5 % (37.0-47.0); MEAN CORPUSCULAR VOLUME 89 FL (80-99); PLATELET COUNT 202 K/UL (150-450); RED BLOOD COUNT 2.52 M/UL (4.20-5.40); RED CELL DISTRIBUTION WIDTH 22.7 % (11.6-14.8); WHITE BLOOD COUNT 14.6 K/UL (4.8-10.8)
--- NOTE | 2018-06-06 10:54 | Infectious Diseases Prog Note ---
Assessment/Plan Assessment/Plan A 1. pancreatitis, EUS negative 2. herpes of lip 3. diabetic ketoacidosis 4. increased LFT 5. fever 6. hypertension 7. Pancytopenia 10. Fungal UTI 11. Pneumonia P 1. continue Rocephin Subjective ROS Limited/Unobtainable: Yes Allergies: Coded Allergies: SHELLFISH DERIVED (Verified Allergy, Unknown, swelling and itchiness, 05/14) Objective Vital Signs Last 24 Hour Vital Signs Date Time Temp Pulse Resp B/P (MAP) Pulse Ox O2 Delivery O2 Flow Rate FiO2 06/06/18 08:51 110 138/82 06/06/18 08:51 110 138/82 06/06/18 08:09 Nasal Cannula 5.0 40 06/06/18 08:09 97 Nasal Cannula 5.0 40 06/06/18 08:09 110 24 Nasal Cannula 5.0 40 06/06/18 08:00 97.2 115 21 138/82 (100) 95 06/06/18 05:49 132/54 06/06/18 04:57 90 21 97 Facial 50 06/06/18 04:00 87 06/06/18 04:00 98.0 89 20 132/54 (80) 99 06/06/18 03:10 94 19 97 Facial 50 06/06/18 01:45 91 18 98 Facial 50 06/06/18 00:44 80 06/06/18 00:00 145/70 06/06/18 00:00 98.1 104 20 114/62 (79) 95 06/05/18 21:00 Nasal Cannula 4.0 06/05/18 21:00 77 142/62 06/05/18 20:00 98.0 77 20 142/62 (88) 95 06/05/18 20:00 83 06/05/18 19:29 Nasal Cannula 4.0 36 06/05/18 19:27 95 Nasal Cannula 4.0 36 06/05/18 19:25 81 Nasal Cannula 4.0 36 06/05/18 17:34 74 18 99 Facial 50 06/05/18 16:50 143/70 06/05/18 16:50 82 143/70 06/05/18 16:00 97.9 68 24 128/61 (83) 96 06/05/18 16:00 82 06/05/18 15:46 71 18 98 Facial 50 06/05/18 13:28 72 25 96 Facial 50 06/05/18 12:07 143/70 06/05/18 12:00 76 06/05/18 12:00 96.8 74 24 134/52 (79) 97 Height (Feet): 4 Height (Inches): 10.00 Weight (Pounds): 178 General Appearance: no acute distress HEENT: mucous membranes moist Respiratory/Chest: rhonchi - bilaterally, other - oxygen by nasal cannula Cardiovascular: tachycardia, other - left arm PICC line Abdomen: soft, non tender Extremities: other - generalized edema, Neurologic/Psychiatric: other - sleeping Laboratory Tests Test 06/06/18 10:00 White Blood Count 14.6 K/UL (4.8-10.8) H Red Blood Count 2.52 M/UL (4.20-5.40) L Hemoglobin 7.0 G/DL (12.0-16.0) L Hematocrit 22.5 % (37.0-47.0) L Mean Corpuscular Volume 89 FL (80-99) Mean Corpuscular Hemoglobin 27.7 PG (27.0-31.0) Mean Corpuscular Hemoglobin Concent 31.1 G/DL (32.0-36.0) L Red Cell Distribution Width 22.7 % (11.6-14.8) H Platelet Count 202 K/UL (150-450) Mean Platelet Volume 6.5 FL (6.5-10.1) Neutrophils (%) (Auto) % (45.0-75.0) Lymphocytes (%) (Auto) % (20.0-45.0) Monocytes (%) (Auto) % (1.0-10.0) Eosinophils (%) (Auto) % (0.0-3.0) Basophils (%) (Auto) % (0.0-2.0) Neutrophils % (Manual) Pending Lymphocytes % (Manual) Pending Platelet Estimate Pending Platelet Morphology Pending Sodium Level Pending Potassium Level Pending Chloride Level Pending Carbon Dioxide Level Pending Blood Urea Nitrogen Pending Creatinine Pending Estimat Glomerular Filtration Rate Pending Glucose Level Pending Calcium Level Pending Iron Level Pending Unsaturated Iron Binding Pending Total Bilirubin Pending Aspartate Amino Transf (AST/SGOT) Pending Alanine Aminotransferase (ALT/SGPT) Pending Alkaline Phosphatase Pending Total Protein Pending Albumin Pending Globulin Pending Current Medications Medications (Trade) Dose Ordered Sig/Ellen Route PRN Reason Start Time Stop Time Status Last Admin Dose Admin Acetaminophen (Tylenol) 650 mg Q4H PRN ORAL Mild Pain/Temp > 100.5 06/02/18 20:32 07/02/18 20:31 06/05/18 05:40 Al Hydroxide/Mg Hydroxide (Mylanta) 30 ml Q6H PRN ORAL Abdominal cramps 06/02/18 20:34 07/02/18 20:33 Amlodipine Besylate (Norvasc) 5 mg BID ORAL 06/03/18 09:00 06/28/18 08:59 06/06/18 08:51 Aspirin (ASA) 81 mg DAILY ORAL 06/03/18 09:00 06/24/18 08:59 06/06/18 08:52 Ceftriaxone Sodium 1 gm/ Dextrose 55 ml @ 110 mls/hr Q24H IVPB 06/04/18 10:00 06/11/18 09:59 06/06/18 08:51 Chlorhexidine Gluconate (Leora-Hex 2%) 1 applic DAILY@2000 TOPIC 06/03/18 20:00 06/24/18 19:59 06/05/18 20:22 Dextrose (Dextrose 50%) 25 ml Q30M PRN IV Hypoglycemia 06/02/18 20:45 06/13/18 10:14 Dextrose (Dextrose 50%) 50 ml Q30M PRN IV Hypoglycemia 06/02/18 20:45 06/13/18 10:14 Enoxaparin Sodium (Lovenox) 80 mg Q24H SUBQ 06/04/18 09:00 07/03/18 08:59 06/06/18 08:52 Haloperidol Lactate (Haldol) 5 mg Q6H PRN IM Agitation 06/02/18 20:33 07/02/18 20:32 06/06/18 05:16 Hydralazine HCl (Apresoline) 25 mg Q6HR ORAL 06/03/18 00:00 07/02/18 00:00 06/05/18 16:50 Insulin Aspart (NovoLOG) BEFORE MEALS AND HS SUBQ 06/02/18 21:00 06/13/18 11:29 06/06/18 06:11 Lorazepam (Ativan) 1 mg Q6H PRN ORAL For Anxiety 06/02/18 20:34 06/09/18 20:33 06/06/18 08:34 Magnesium Hydroxide (Mom) 30 ml DAILYPRN PRN ORAL Constipation 06/02/18 20:34 07/02/18 20:33 Metoprolol Tartrate (Lopressor) 5 mg Q2H PRN IVP For High Blood Pressure 06/02/18 21:00 06/23/18 16:59 Metoprolol Tartrate (Lopressor) 50 mg Q12HR ORAL 06/02/18 21:00 06/26/18 20:59 06/06/18 08:51 Olanzapine (ZyPREXA) 2.5 mg BEDTIME ORAL 06/02/18 21:00 07/01/18 20:59 06/04/18 20:53 Pantoprazole (Protonix) 40 mg ACBREAKFAST ORAL 06/03/18 06:30 06/26/18 06:29 06/05/18 05:38 Mahesh Tejada MD Jun 06, 2018 10:54
[2018-06-06 10:57] LABS: % IRON SATURATION 14 % (15-50); IRON 25 ug/dL (50-175); TOTAL IRON BINDING CAPACITY 182 ug/dL (250-450)
[2018-06-06 11:18] LABS: ALANINE AMINOTRANSFERASE 36 U/L (12-78); ALBUMIN 2.1 G/DL (3.4-5.0); ALBUMIN/GLOBULIN RATIO 0.5 (1.0-2.7); ALKALINE PHOSPHATASE 336 U/L (46-116); ANION GAP 11 mmol/L (5-15); ASPARTATE AMINO TRANSFERASE 30 U/L (15-37); BILIRUBIN,TOTAL 0.8 MG/DL (0.2-1.0); BLOOD UREA NITROGEN 22 mg/dL (7-18); CALCIUM 8.2 MG/DL (8.5-10.1); CARBON DIOXIDE 24 MMOL/L (21-32); CHLORIDE 110 MMOL/L (98-107); CREATININE 1.8 MG/DL (0.55-1.30); POTASSIUM 4.1 MMOL/L (3.5-5.1); SODIUM 145 MMOL/L (136-145)
--- NOTE | 2018-06-06 11:33 | Diagnostic Imaging Report ---
EXAM: XR Chest, 1 View CLINICAL HISTORY: Shortness of breath TECHNIQUE: Frontal view of the chest. COMPARISON: Chest x-rays dated 06/01/18, 05/29/18, 05/13/18. FINDINGS: Lungs: No significant change in bilateral interstitial and airspace edema. Pleural space: Bilateral layering pleural effusions, relatively unchanged. Heart: Cardiomegaly, unchanged. Mediastinum: Unremarkable. Bones/joints: Degenerative changes throughout the visualized spine and shoulder joints. Status post median sternotomy with intact appearance of the sternal wires. Vasculature: Atherosclerotic calcifications within the aortic arch. Tubes, lines and devices: Telemetry leads overlie the thorax. IMPRESSION: 1. No significant change in bilateral interstitial and airspace edema. 2. Bilateral layering pleural effusions, relatively unchanged.
--- NOTE | 2018-06-06 11:57 | General Progress Note ---
Assessment/Plan Problem List: (1) HTN (hypertension) ICD Codes: I10 - Essential (primary) hypertension SNOMED: 66783980 (2) Pneumonia ICD Codes: J18.9 - Pneumonia, unspecified organism SNOMED: 635327090 (3) Diabetes ICD Codes: E11.9 - Type 2 diabetes mellitus without complications SNOMED: 13915217 (4) UTI (urinary tract infection) ICD Codes: N39.0 - Urinary tract infection, site not specified SNOMED: 05923658 Qualifiers: Qualified Codes: N39.0 - Urinary tract infection, site not specified (5) Pancreatitis ICD Codes: K85.90 - Acute pancreatitis without necrosis or infection, unspecified SNOMED: 89243486 Qualifiers: Qualified Codes: K85.90 - Acute pancreatitis without necrosis or infection, unspecified (6) Gout ICD Codes: M10.9 - Gout, unspecified SNOMED: 99924047 Qualifiers: Qualified Codes: M10.9 - Gout, unspecified (7) Anemia ICD Codes: D64.9 - Anemia, unspecified SNOMED: 093496135 Assessment/Plan Assessment/Plan Status post EUS summary of findings 1. Pancreatitis, most probably acute, without any pancreatic duct dilatation or mass. 2. No evidence of any common bile duct dilatation was seen with common bile duct stone. 3. Gallbladder wall thickening, nonspecific. 4. 1 cm kristina hepatis lymph node, nonspecific. Elevated lipase levels, downtrending RECOMMENDATIONS: No need for ERCP Pain management Trend lipase Zofran as needed Follow-up labs anemia work up repeat stool ob cbc in am Subjective ROS Limited/Unobtainable: No Allergies: Coded Allergies: SHELLFISH DERIVED (Verified Allergy, Unknown, swelling and itchiness, 05/14) Subjective skin rash Objective Last 24 Hour Vital Signs Date Time Temp Pulse Resp B/P (MAP) Pulse Ox O2 Delivery O2 Flow Rate FiO2 06/06/18 08:51 110 138/82 06/06/18 08:51 110 138/82 06/06/18 08:09 Nasal Cannula 5.0 40 06/06/18 08:09 97 Nasal Cannula 5.0 40 06/06/18 08:09 110 24 Nasal Cannula 5.0 40 06/06/18 08:00 97.2 115 21 138/82 (100) 95 06/06/18 08:00 96 06/06/18 05:49 132/54 06/06/18 04:57 90 21 97 Facial 50 06/06/18 04:00 87 06/06/18 04:00 98.0 89 20 132/54 (80) 99 06/06/18 03:10 94 19 97 Facial 50 06/06/18 01:45 91 18 98 Facial 50 06/06/18 00:44 80 06/06/18 00:00 145/70 06/06/18 00:00 98.1 104 20 114/62 (79) 95 06/05/18 21:00 Nasal Cannula 4.0 06/05/18 21:00 77 142/62 06/05/18 20:00 98.0 77 20 142/62 (88) 95 06/05/18 20:00 83 06/05/18 19:29 Nasal Cannula 4.0 36 06/05/18 19:27 95 Nasal Cannula 4.0 36 06/05/18 19:25 81 Nasal Cannula 4.0 36 06/05/18 17:34 74 18 99 Facial 50 06/05/18 16:50 143/70 06/05/18 16:50 82 143/70 06/05/18 16:00 97.9 68 24 128/61 (83) 96 06/05/18 16:00 82 06/05/18 15:46 71 18 98 Facial 50 06/05/18 13:28 72 25 96 Facial 50 06/05/18 12:07 143/70 06/05/18 12:00 76 06/05/18 12:00 96.8 74 24 134/52 (79) 97 Intake and Output 06/05/18 06/06/18 19:00 07:00 Intake Total 220 ml Output Total 300 ml Balance -80 ml Intake Oral 220 ml Output Urine Total 300 ml # Voids 2 # Bowel Movements 1 Laboratory Tests 06/06/18 10:00: White Blood Count 14.6H, Red Blood Count 2.52L, Hemoglobin 7.0L, Hematocrit 22.5L, Mean Corpuscular Volume 89, Mean Corpuscular Hemoglobin 27.7, Mean Corpuscular Hemoglobin Concent 31.1L, Red Cell Distribution Width 22.7H, Platelet Count 202, Mean Platelet Volume 6.5, Neutrophils (%) (Auto) , Lymphocytes (%) (Auto) , Monocytes (%) (Auto) , Eosinophils (%) (Auto) , Basophils (%) (Auto) , Differential Total Cells Counted 100, Neutrophils % ( Manual) 91H, Lymphocytes % (Manual) 4L, Monocytes % (Manual) 5, Eosinophils % ( Manual) 0, Basophils % (Manual) 0, Band Neutrophils 0, Platelet Estimate Adequate, Platelet Morphology Normal, Polychromasia 1+, Hypochromasia 2+, Anisocytosis 3+, Sodium Level 145, Potassium Level 4.1, Chloride Level 110H, Carbon Dioxide Level 24, Anion Gap 11, Blood Urea Nitrogen 22H, Creatinine 1.8H , Estimat Glomerular Filtration Rate 27.8, Glucose Level 210H, Calcium Level 8.2L, Iron Level 25L, Total Iron Binding Capacity 182L, Percent Iron Saturation 14L, Unsaturated Iron Binding 157, Total Bilirubin 0.8, Aspartate Amino Transf ( AST/SGOT) 30, Alanine Aminotransferase (ALT/SGPT) 36, Alkaline Phosphatase 336H , Total Protein 6.5, Albumin 2.1L, Globulin 4.4, Albumin/Globulin Ratio 0.5L Height (Feet): 4 Height (Inches): 10.00 Weight (Pounds): 178 General Appearance: no apparent distress EENT: normal ENT inspection Neck: supple Cardiovascular: normal rate Respiratory/Chest: decreased breath sounds Abdomen: normal bowel sounds, non tender, soft Extremities: non-tender Neeraj Benito MD Jun 06, 2018 11:57
[2018-06-06] MEDS ORDERED: D5NS 1000ml IV ONE (15:54)
--- NOTE | 2018-06-06 19:00 | NUR ---
HAND-OFF: Report given to WAYNE Castillo.
--- NOTE | 2018-06-06 19:01 | NUR ---
NURSE NOTES: Got report from Josafat Rn. Pt in stable condition. Denies any pain. No s/s of distress noted. Pt resting in bed comfortably. Bed in low and locked position, call light within reach, bedside table within reach. continue to monitor.
--- NOTE | 2018-06-06 19:10 | General Progress Note ---
Assessment/Plan Assessment/Plan Assessment and Recs # Pancytopenia -- appears that initial hep and hiv are negative though final results to follow, liver shows no major hsm or cirrhosis, may consider meds or bone marrow process, smear reviewed, does have low albumin, has been hospitalized for some time, in and out since 04/30/18 --> query meds, review with ID, is on micafungin now, monitor counts closely --> given hgb downtrending and some nucleated reds on smear, will send off a flow cytometry --> nepogen 300mcg sq to maintain anc >1500 --> wbc trend : 1.7-->4.3-->3.1-->3.4-->7.7-->8.1--12-->15-->11-->14.6 # Anemia of chronic disease - monitor anemia panel --> hemolysis does not appear to be the case --> anemia panel reviewed --> hgb trend: 8.3-->9.2-->8.9-->8.7-->9-->7.7-->7 # Paroxysmal atrial fibrillation, due to CHADS-VASC score of 5, we require to keep anticoagulated, on metoprolol --> continue on apixaban # Hx of CAD, s/p CABG, ASA , atorvastatin and metoprolol. No wall motion abnormalities on Echo. LVEF ~55%. --> appreciate cards recs # Sinus tachycardia due to hypovolemia, resolved. # DKA, resolved. --> continue monitor # DM, non-compliant with medications. # Hx of HTN, controlled with metoprolol. # pancreatitis # increased LFT The timing of this note does not necessarily reflect the time of the patient was seen. Greatly appreciate consultation! Subjective Constitutional: Denies: no symptoms, chills, diaphoresis, fever, malaise, weakness, other HEENT: Denies: no symptoms, eye pain, blurred vision, tearing, double vision, ear pain, ear discharge, nose pain, nose congestion, throat pain, throat swelling, mouth pain, mouth swelling, other Cardiovascular: Denies: no symptoms, chest pain, edema, irregular heart rate, lightheadedness, palpitations, syncope, other Respiratory: Denies: no symptoms, cough, orthopnea, shortness of breath, SOB with excertion, SOB at rest, sputum, stridor, wheezing, other Gastrointestinal/Abdominal: Denies: no symptoms, abdomen distended, abdominal pain, black stools, tarry stools, blood in stool, constipated, diarrhea, difficulty swallowing, nausea, poor appetite, poor fluid intake, rectal bleeding , vomiting, other Genitourinary: Denies: no symptoms, burning, discharge, frequency, flank pain, hematuria, incontinence, pain, urgency, other Neurologic/Psychiatric: Denies: no symptoms, anxiety, depressed, emotional problems, headache, numbness, paresthesia, pre-existing deficit, seizure, tingling, tremors, weakness, other Endocrine: Denies: no symptoms, excessive sweating, flushing, intolerance to cold, intolerance to heat, increased hunger, increased thirst, increased urine, unexplained weight gain, unexplained weight loss, other Hematologic/Lymphatic: Denies: no symptoms, anemia, easy bleeding, easy bruising, other Allergies: Coded Allergies: SHELLFISH DERIVED (Verified Allergy, Unknown, swelling and itchiness, 05/14) Subjective 05/18: Pt is awake and comfortable, no events, leukopenia improved, wbc 4.3, plt 151 05/19: seen by bedside, awake, comfortable, plt 122 05/20: Pt is awake and comfortable, no events 05/21: Pt is seen in the room, resting in bed, no fevers or chills, wbc 8.7, plt 117 2: Pt is resting in bed, awake, comfortable, no fevers or chills, no acute distress. 05/24: EGD and EUS done today, has no gallbladder stones, only pancreatitis, no events 2: no events, dermatitis has improved, off loading of heels, pancreatitis and dka better 05/26: Pt is awake, comfortable, no acute events overnight, hgb 8.6 05/27: seen by bedside, awake, comfortable, no events 05/28: resting in bed, awake, comfortable, no fevers or chills, no acute distress , No need for ERCP per GI, 05/31: Pt is awake and comfortable, no events 06/01: awake, comfortable, denies acute distress. 06/02: seen by bedside, awake, comfortable, no acute distress. wbc 15. 2: no acute events, denies any abdominal pain, wbc trending down at 11 today. 06/04: awake/drowsy in bed, breathing easily on nasal cannula, denies SOB and pain at this time. 06/06: anemia cotninues to worsen, may consider a bone marrow biopsy if patient approves Objective Last 24 Hour Vital Signs Date Time Temp Pulse Resp B/P (MAP) Pulse Ox O2 Delivery O2 Flow Rate FiO2 06/06/18 17:16 138/82 06/06/18 17:16 77 138/82 06/06/18 16:00 97.2 64 18 121/68 (85) 95 06/06/18 16:00 80 06/06/18 15:02 77 18 100 Facial 50 06/06/18 13:38 138/82 06/06/18 13:27 67 16 100 Facial 50 06/06/18 12:15 112 22 94 Facial 50 06/06/18 12:00 65 06/06/18 12:00 97.6 65 18 126/58 (80) 96 06/06/18 09:00 Nasal Cannula 4.0 06/06/18 08:51 110 138/82 06/06/18 08:51 110 138/82 06/06/18 08:09 Nasal Cannula 5.0 40 06/06/18 08:09 97 Nasal Cannula 5.0 40 06/06/18 08:09 110 24 Nasal Cannula 5.0 40 06/06/18 08:00 97.2 115 21 138/82 (100) 95 06/06/18 08:00 96 06/06/18 05:49 132/54 06/06/18 04:57 90 21 97 Facial 50 06/06/18 04:00 87 06/06/18 04:00 98.0 89 20 132/54 (80) 99 06/06/18 03:10 94 19 97 Facial 50 06/06/18 01:45 91 18 98 Facial 50 06/06/18 00:44 80 06/06/18 00:00 145/70 06/06/18 00:00 98.1 104 20 114/62 (79) 95 06/05/18 21:00 Nasal Cannula 4.0 06/05/18 21:00 77 142/62 06/05/18 20:00 98.0 77 20 142/62 (88) 95 06/05/18 20:00 83 06/05/18 19:29 Nasal Cannula 4.0 36 06/05/18 19:27 95 Nasal Cannula 4.0 36 06/05/18 19:25 81 Nasal Cannula 4.0 36 Intake and Output 06/05/18 06/06/18 18:59 06:59 Intake Total 220 ml Output Total 300 ml Balance -80 ml Intake Oral 220 ml Output Urine Total 300 ml # Voids 2 # Bowel Movements 1 Laboratory Tests 06/06/18 10:00: White Blood Count 14.6H, Red Blood Count 2.52L, Hemoglobin 7.0L, Hematocrit 22.5L, Mean Corpuscular Volume 89, Mean Corpuscular Hemoglobin 27.7, Mean Corpuscular Hemoglobin Concent 31.1L, Red Cell Distribution Width 22.7H, Platelet Count 202, Mean Platelet Volume 6.5, Neutrophils (%) (Auto) , Lymphocytes (%) (Auto) , Monocytes (%) (Auto) , Eosinophils (%) (Auto) , Basophils (%) (Auto) , Differential Total Cells Counted 100, Neutrophils % ( Manual) 91H, Lymphocytes % (Manual) 4L, Monocytes % (Manual) 5, Eosinophils % ( Manual) 0, Basophils % (Manual) 0, Band Neutrophils 0, Platelet Estimate Adequate, Platelet Morphology Normal, Polychromasia 1+, Hypochromasia 2+, Anisocytosis 3+, Sodium Level 145, Potassium Level 4.1, Chloride Level 110H, Carbon Dioxide Level 24, Anion Gap 11, Blood Urea Nitrogen 22H, Creatinine 1.8H , Estimat Glomerular Filtration Rate 27.8, Glucose Level 210H, Calcium Level 8.2L, Iron Level 25L, Total Iron Binding Capacity 182L, Percent Iron Saturation 14L, Unsaturated Iron Binding 157, Total Bilirubin 0.8, Aspartate Amino Transf ( AST/SGOT) 30, Alanine Aminotransferase (ALT/SGPT) 36, Alkaline Phosphatase 336H , Total Protein 6.5, Albumin 2.1L, Globulin 4.4, Albumin/Globulin Ratio 0.5L Height (Feet): 4 Height (Inches): 10.00 Weight (Pounds): 178 General Appearance: no apparent distress EENT: TMs normal Neck: supple Objective PHYSICAL EXAMINATION: GENERAL: Pleasant [place] woman, tired HEENT: Normocephalic and atraumatic. Sclerae anicteric. Oropharynx clear. NECK: Supple. CHEST: Clear to auscultation. CARDIOVASCULAR: Revealed regular rate. ABDOMEN: Soft. Good bowel sounds. There is no organomegaly or tenderness. Anterior chest and abdomen scars were as expected. EXTREMITIES: Revealed no edema. Armando Bowen MD Jun 06, 2018 19:10
[2018-06-06] MEDS: Dyna-Hex 2% Top Sol 2oz TOPIC SCH (19:55)
--- NOTE | 2018-06-06 20:21 | General Progress Note ---
Assessment/Plan Problem List: (1) Acute metabolic encephalopathy ICD Codes: G93.41 - Metabolic encephalopathy SNOMED: 66542653, 799624853 Assessment/Plan Zyprexa 2.5mg po qhs Haldol prn limit using benzos may increase risk of aspiration restraints. Subjective Neurologic/Psychiatric: Reports: anxiety, depressed Allergies: Coded Allergies: SHELLFISH DERIVED (Verified Allergy, Unknown, swelling and itchiness, 05/14) Subjective stable less agitated calmer less confused Objective Last 24 Hour Vital Signs Date Time Temp Pulse Resp B/P (MAP) Pulse Ox O2 Delivery O2 Flow Rate FiO2 06/06/18 19:31 95 Nasal Cannula 5.0 40 06/06/18 19:31 85 22 Nasal Cannula 5.0 40 06/06/18 19:31 Nasal Cannula 5.0 40 06/06/18 17:16 138/82 06/06/18 17:16 77 138/82 06/06/18 16:00 97.2 64 18 121/68 (85) 95 06/06/18 16:00 80 06/06/18 15:02 77 18 100 Facial 50 06/06/18 13:38 138/82 06/06/18 13:27 67 16 100 Facial 50 06/06/18 12:15 112 22 94 Facial 50 06/06/18 12:00 65 06/06/18 12:00 97.6 65 18 126/58 (80) 96 06/06/18 09:00 Nasal Cannula 4.0 06/06/18 08:51 110 138/82 06/06/18 08:51 110 138/82 06/06/18 08:09 Nasal Cannula 5.0 40 06/06/18 08:09 97 Nasal Cannula 5.0 40 06/06/18 08:09 110 24 Nasal Cannula 5.0 40 06/06/18 08:00 97.2 115 21 138/82 (100) 95 06/06/18 08:00 96 06/06/18 05:49 132/54 06/06/18 04:57 90 21 97 Facial 50 06/06/18 04:00 87 06/06/18 04:00 98.0 89 20 132/54 (80) 99 06/06/18 03:10 94 19 97 Facial 50 06/06/18 01:45 91 18 98 Facial 50 06/06/18 00:44 80 06/06/18 00:00 145/70 06/06/18 00:00 98.1 104 20 114/62 (79) 95 06/05/18 21:00 Nasal Cannula 4.0 06/05/18 21:00 77 142/62 Intake and Output 06/05/18 06/06/18 19:00 07:00 Intake Total 220 ml Output Total 300 ml Balance -80 ml Intake Oral 220 ml Output Urine Total 300 ml # Voids 2 # Bowel Movements 1 Laboratory Tests 06/06/18 10:00: White Blood Count 14.6H, Red Blood Count 2.52L, Hemoglobin 7.0L, Hematocrit 22.5L, Mean Corpuscular Volume 89, Mean Corpuscular Hemoglobin 27.7, Mean Corpuscular Hemoglobin Concent 31.1L, Red Cell Distribution Width 22.7H, Platelet Count 202, Mean Platelet Volume 6.5, Neutrophils (%) (Auto) , Lymphocytes (%) (Auto) , Monocytes (%) (Auto) , Eosinophils (%) (Auto) , Basophils (%) (Auto) , Differential Total Cells Counted 100, Neutrophils % ( Manual) 91H, Lymphocytes % (Manual) 4L, Monocytes % (Manual) 5, Eosinophils % ( Manual) 0, Basophils % (Manual) 0, Band Neutrophils 0, Platelet Estimate Adequate, Platelet Morphology Normal, Polychromasia 1+, Hypochromasia 2+, Anisocytosis 3+, Sodium Level 145, Potassium Level 4.1, Chloride Level 110H, Carbon Dioxide Level 24, Anion Gap 11, Blood Urea Nitrogen 22H, Creatinine 1.8H , Estimat Glomerular Filtration Rate 27.8, Glucose Level 210H, Calcium Level 8.2L, Iron Level 25L, Total Iron Binding Capacity 182L, Percent Iron Saturation 14L, Unsaturated Iron Binding 157, Total Bilirubin 0.8, Aspartate Amino Transf ( AST/SGOT) 30, Alanine Aminotransferase (ALT/SGPT) 36, Alkaline Phosphatase 336H , Total Protein 6.5, Albumin 2.1L, Globulin 4.4, Albumin/Globulin Ratio 0.5L Height (Feet): 4 Height (Inches): 10.00 Weight (Pounds): 178 General Appearance: WD/WN, no apparent distress, alert yLnne Crane MD Jun 06, 2018 20:20
[2018-06-06] MEDS: OLANZapine 2.5mg tab ORAL SCH (20:37)
[2018-06-06] MEDS ORDERED: Iron Sucrose 100 MG in NS 55 ML IVPB SCH (21:00)
--- NOTE | 2018-06-06 21:30 | NUR ---
NURSE NOTES: 2129: Blood transfusion done. No s/s of distress or discomfort noted post-transfusion. Pt in stable condition. V/S: BP:121/63 HR:76 T:97.9 R:18 O2:95. No post-transfusion reaction noted. Continue to monitor.
--- NOTE | 2018-06-06 23:54 | Cardiology Progress Note ---
Assessment/Plan Assessment/Plan 1. Paroxysmal atrial fibrillation, in SR now, due to CHADS-VASC score of 5, continue enoxaparin and metoprolol. 2. Hx of CAD, s/p CABG, ASA , atorvastatin and metoprolol. No wall motion abnormalities on Echo. LVEF ~55%. 3. Sinus tachycardia, resolved, due to hypovolemia. 4. DKA, resolved. 5. DM 6. HTN, well controlled, continue amlodipine, metoprolol and hydralazine. 7. Severe pulmonary HTN. 8. MAMADOU, creatinine down to 1.8. 9. Hypokalemia, resolved, K at 4.1. Subjective Subjective Sinus rhythm at rate of 76. Objective Last 24 Hour Vital Signs Date Time Temp Pulse Resp B/P (MAP) Pulse Ox O2 Delivery O2 Flow Rate FiO2 06/06/18 21:30 97.9 76 18 121/63 (82) 95 06/06/18 21:26 97.2 06/06/18 21:00 Nasal Cannula 4.0 06/06/18 20:36 77 142/77 06/06/18 20:00 100.0 75 18 142/77 (98) 95 06/06/18 20:00 84 06/06/18 19:31 95 Nasal Cannula 5.0 40 06/06/18 19:31 85 22 Nasal Cannula 5.0 40 06/06/18 19:31 Nasal Cannula 5.0 40 06/06/18 17:16 138/82 06/06/18 17:16 77 138/82 06/06/18 16:00 97.2 64 18 121/68 (85) 95 06/06/18 16:00 80 06/06/18 15:02 77 18 100 Facial 50 06/06/18 13:38 138/82 06/06/18 13:27 67 16 100 Facial 50 06/06/18 12:15 112 22 94 Facial 50 06/06/18 12:00 65 06/06/18 12:00 97.6 65 18 126/58 (80) 96 06/06/18 09:00 Nasal Cannula 4.0 06/06/18 08:51 110 138/82 06/06/18 08:51 110 138/82 06/06/18 08:09 Nasal Cannula 5.0 40 06/06/18 08:09 97 Nasal Cannula 5.0 40 06/06/18 08:09 110 24 Nasal Cannula 5.0 40 06/06/18 08:00 97.2 115 21 138/82 (100) 95 06/06/18 08:00 96 06/06/18 05:49 132/54 06/06/18 04:57 90 21 97 Facial 50 06/06/18 04:00 87 06/06/18 04:00 98.0 89 20 132/54 (80) 99 06/06/18 03:10 94 19 97 Facial 50 06/06/18 01:45 91 18 98 Facial 50 06/06/18 00:44 80 06/06/18 00:00 145/70 06/06/18 00:00 98.1 104 20 114/62 (79) 95 Intake and Output 06/05/18 06/06/18 19:00 07:00 Intake Total 220 ml Output Total 300 ml Balance -80 ml Intake Oral 220 ml Output Urine Total 300 ml # Voids 2 # Bowel Movements 1 2D Echo: EF55%,Mild LVH,Mod MR,Mild AR,RVSP 67 mmHg (severe PHT),Restrictive LV phy Laboratory Tests Test 06/06/18 10:00 White Blood Count 14.6 K/UL (4.8-10.8) H Red Blood Count 2.52 M/UL (4.20-5.40) L Hemoglobin 7.0 G/DL (12.0-16.0) L Hematocrit 22.5 % (37.0-47.0) L Mean Corpuscular Volume 89 FL (80-99) Mean Corpuscular Hemoglobin 27.7 PG (27.0-31.0) Mean Corpuscular Hemoglobin Concent 31.1 G/DL (32.0-36.0) L Red Cell Distribution Width 22.7 % (11.6-14.8) H Platelet Count 202 K/UL (150-450) Mean Platelet Volume 6.5 FL (6.5-10.1) Neutrophils (%) (Auto) % (45.0-75.0) Lymphocytes (%) (Auto) % (20.0-45.0) Monocytes (%) (Auto) % (1.0-10.0) Eosinophils (%) (Auto) % (0.0-3.0) Basophils (%) (Auto) % (0.0-2.0) Differential Total Cells Counted 100 Neutrophils % (Manual) 91 % (45-75) H Lymphocytes % (Manual) 4 % (20-45) L Monocytes % (Manual) 5 % (1-10) Eosinophils % (Manual) 0 % (0-3) Basophils % (Manual) 0 % (0-2) Band Neutrophils 0 % (0-8) Platelet Estimate Adequate Platelet Morphology Normal Polychromasia 1+ Hypochromasia 2+ Anisocytosis 3+ Sodium Level 145 MMOL/L (136-145) Potassium Level 4.1 MMOL/L (3.5-5.1) Chloride Level 110 MMOL/L (98-107) H Carbon Dioxide Level 24 MMOL/L (21-32) Anion Gap 11 mmol/L (5-15) Blood Urea Nitrogen 22 mg/dL (7-18) H Creatinine 1.8 MG/DL (0.55-1.30) H Estimat Glomerular Filtration Rate 27.8 mL/min (>60) Glucose Level 210 MG/DL (74-106) H Calcium Level 8.2 MG/DL (8.5-10.1) L Iron Level 25 ug/dL (50-175) L Total Iron Binding Capacity 182 ug/dL (250-450) L Percent Iron Saturation 14 % (15-50) L Unsaturated Iron Binding 157 ug/dL (112-346) Total Bilirubin 0.8 MG/DL (0.2-1.0) Aspartate Amino Transf (AST/SGOT) 30 U/L (15-37) Alanine Aminotransferase (ALT/SGPT) 36 U/L (12-78) Alkaline Phosphatase 336 U/L (46-116) H Total Protein 6.5 G/DL (6.4-8.2) Albumin 2.1 G/DL (3.4-5.0) L Globulin 4.4 g/dL Albumin/Globulin Ratio 0.5 (1.0-2.7) L Objective HEENT: Normocephalic, atraumatic, Pupils equally reactive to light and accommodation, EOMI. NECK: No JVD, no carotid bruit. CARDIOVASCULAR: Regular rate and rhythm. No murmurs, gallops or rubs. LUNGS: Clear to auscultation bilaterally. No crackles or Rhonchi. ABDOMEN: Soft and nontender. No organomegaly, + BS. EXTREMITIES: No cyanosis, clubbing or edema. Miller Mckeon MD Jun 06, 2018 23:54
[2018-06-07 00:07] VITALS: BP 135/75
[2018-06-07 04:20] VITALS: BP 142/82
[2018-06-07] MEDS: Haloperidol 5mg/ml Inj IM PRN (05:06)
[2018-06-07] MEDS: HydrALAZINE 25mg tab ORAL SCH ×4 (05:50→19:01)
[2018-06-07] MEDS: NovoLOG Insulin Flexpen SUBQ SCH ×4 (06:06→20:45)
[2018-06-07 07:07] LABS: HEMATOCRIT 30.5 % (37.0-47.0); MEAN CORPUSCULAR VOLUME 88 FL (80-99); PLATELET COUNT 206 K/UL (150-450); RED BLOOD COUNT 3.46 M/UL (4.20-5.40); RED CELL DISTRIBUTION WIDTH 21.3 % (11.6-14.8); WHITE BLOOD COUNT 16.6 K/UL (4.8-10.8)
--- NOTE | 2018-06-07 07:20 | NUR ---
HAND-OFF: Report given to Kd Zaidi. endorsed plan of care.
[2018-06-07 07:31] LABS: HEMOGLOBIN 9.7 G/DL (12.0-16.0)
--- NOTE | 2018-06-07 07:46 | NUR ---
NURSE NOTES: Pt in bed in low position, call light at bedside, breakfast at bedside, Pt denies pain, bed alarm on, pt states she is weak and can not stand, pt appearance looks to be slightly yellow in color, IV site patent and intact, plan is to possibly to do a PEG placement, no s/s of sob or distress, pt on 4L NC
[2018-06-07 08:00] VITALS: BP 115/55
--- NOTE | 2018-06-07 08:39 | General Progress Note ---
Assessment/Plan Assessment/Plan Impression Diabetic ketoacidosis Anemia Transaminitis of unclear etiology Severe protein calorie malnutrition Evidence of pancreatitis, better Acute renal failure, improved Hyperglycemia Diabetes Hyponatremia Metabolic acidosis Hypercholesterolemia fever oral ulcers afib with RVR leukopenia pancreatitis CVA pleural effusions d/w family about GT- await decision needs nutrition on antibiotics with + cultures; per ID on lovenox ? eliquis 3rd spacing at present care noted; will need rehab with current status still very weak swallow evaluation pending impression, plan, and exam edited and reviewed in detail care discussed with RN Subjective Allergies: Coded Allergies: SHELLFISH DERIVED (Verified Allergy, Unknown, swelling and itchiness, 05/14) Subjective care noted not eating well NAD remains lethargic Objective Last 24 Hour Vital Signs Date Time Temp Pulse Resp B/P (MAP) Pulse Ox O2 Delivery O2 Flow Rate FiO2 06/07/18 08:31 Nasal Cannula 4.0 06/07/18 08:00 97.7 20 115/55 (75) 100 06/07/18 07:10 Nasal Cannula 5.0 40 06/07/18 07:10 95 Nasal Cannula 5.0 40 06/07/18 07:10 89 22 Nasal Cannula 5.0 40 06/07/18 05:50 142/85 06/07/18 04:20 77 06/07/18 04:20 97.9 85 18 142/82 (102) 95 06/07/18 03:30 75 19 96 Facial 50 06/07/18 01:13 72 21 97 Facial 50 06/07/18 00:07 98.1 68 18 135/75 (95) 95 06/07/18 00:00 68 06/07/18 00:00 135/75 06/06/18 21:30 97.9 76 18 121/63 (82) 95 06/06/18 21:26 97.2 06/06/18 21:00 Nasal Cannula 4.0 06/06/18 20:36 77 142/77 06/06/18 20:00 100.0 75 18 142/77 (98) 95 06/06/18 20:00 84 06/06/18 19:31 95 Nasal Cannula 5.0 40 06/06/18 19:31 85 22 Nasal Cannula 5.0 40 06/06/18 19:31 Nasal Cannula 5.0 40 06/06/18 17:16 138/82 06/06/18 17:16 77 138/82 06/06/18 16:00 97.2 64 18 121/68 (85) 95 06/06/18 16:00 80 06/06/18 15:02 77 18 100 Facial 50 06/06/18 13:38 138/82 06/06/18 13:27 67 16 100 Facial 50 06/06/18 12:15 112 22 94 Facial 50 06/06/18 12:00 65 06/06/18 12:00 97.6 65 18 126/58 (80) 96 06/06/18 09:00 Nasal Cannula 4.0 06/06/18 08:51 110 138/82 06/06/18 08:51 110 138/82 Intake and Output 06/06/18 06/07/18 19:00 07:00 Intake Total 500 ml Balance 500 ml Intake Oral 500 ml # Voids 2 Laboratory Tests 06/06/18 10:00: White Blood Count 14.6H, Red Blood Count 2.52L, Hemoglobin 7.0L, Hematocrit 22.5L, Mean Corpuscular Volume 89, Mean Corpuscular Hemoglobin 27.7, Mean Corpuscular Hemoglobin Concent 31.1L, Red Cell Distribution Width 22.7H, Platelet Count 202, Mean Platelet Volume 6.5, Neutrophils (%) (Auto) , Lymphocytes (%) (Auto) , Monocytes (%) (Auto) , Eosinophils (%) (Auto) , Basophils (%) (Auto) , Differential Total Cells Counted 100, Neutrophils % ( Manual) 91H, Lymphocytes % (Manual) 4L, Monocytes % (Manual) 5, Eosinophils % ( Manual) 0, Basophils % (Manual) 0, Band Neutrophils 0, Platelet Estimate Adequate, Platelet Morphology Normal, Polychromasia 1+, Hypochromasia 2+, Anisocytosis 3+, Sodium Level 145, Potassium Level 4.1, Chloride Level 110H, Carbon Dioxide Level 24, Anion Gap 11, Blood Urea Nitrogen 22H, Creatinine 1.8H , Estimat Glomerular Filtration Rate 27.8, Glucose Level 210H, Calcium Level 8.2L, Iron Level 25L, Total Iron Binding Capacity 182L, Percent Iron Saturation 14L, Unsaturated Iron Binding 157, Total Bilirubin 0.8, Aspartate Amino Transf ( AST/SGOT) 30, Alanine Aminotransferase (ALT/SGPT) 36, Alkaline Phosphatase 336H , Total Protein 6.5, Albumin 2.1L, Globulin 4.4, Albumin/Globulin Ratio 0.5L 06/07/18 04:00: White Blood Count 16.6H, Red Blood Count 3.46L, Hemoglobin 9.7#L, Hematocrit 30.5#L, Mean Corpuscular Volume 88, Mean Corpuscular Hemoglobin 28.1, Mean Corpuscular Hemoglobin Concent 31.8L, Red Cell Distribution Width 21.3H, Platelet Count 206, Mean Platelet Volume 7.1, Neutrophils (%) (Auto) , Lymphocytes (%) (Auto) , Monocytes (%) (Auto) , Eosinophils (%) (Auto) , Basophils (%) (Auto) , Neutrophils % (Manual) [Pending], Lymphocytes % (Manual) [Pending], Platelet Estimate [Pending], Platelet Morphology [Pending] Height (Feet): 4 Height (Inches): 10.00 Weight (Pounds): 179 Objective WDWN lethargic clear breath sounds bilaterally without rhonchi or wheeze S1S2 RRR without MRG NABS nontender no HSM no CCE remains weak Jesus Lew MD Jun 07, 2018 08:39
--- NOTE | 2018-06-07 09:59 | GI Progress Note ---
Assessment/Plan Problems: (1) Pancreatitis ICD Codes: K85.90 - Acute pancreatitis without necrosis or infection, unspecified SNOMED: 16229197 Qualifiers: Qualified Codes: K85.90 - Acute pancreatitis without necrosis or infection, unspecified (2) DKA (diabetic ketoacidosis) ICD Codes: E13.10 - Other specified diabetes mellitus with ketoacidosis without coma SNOMED: 168534520, [id number] Qualifiers: Qualified Codes: E10.10 - Type 1 diabetes mellitus with ketoacidosis without coma (3) Diabetes ICD Codes: E11.9 - Type 2 diabetes mellitus without complications SNOMED: 66311421 Status: stable Status Narrative Discussed with Dr. Benito Assessment/Plan Status post EUS summary of findings 1. Pancreatitis, most probably acute, without any pancreatic duct dilatation or mass. 2. No evidence of any common bile duct dilatation was seen with common bile duct stone. 3. Gallbladder wall thickening, nonspecific. 4. 1 cm kristina hepatis lymph node, nonspecific. Elevated lipase levels, downtrending RECOMMENDATIONS: follow-up swallow evaluation No need for ERCP Pain management Trend lipase Zofran as needed venofer repeat stool ob cbc in am The patient was seen and examined at bedside and all new and available data was reviewed in the patients chart. I agree with the above findings, impression and plan. (Patient seen earlier today. Signature stamp does not reflect patient encounter time.). - Neeraj Benito MD Subjective Subjective denies any abdominal pain Tolerating diet Objective Last 24 Hour Vital Signs Date Time Temp Pulse Resp B/P (MAP) Pulse Ox O2 Delivery O2 Flow Rate FiO2 06/07/18 08:31 Nasal Cannula 4.0 06/07/18 08:00 97.7 20 115/55 (75) 100 06/07/18 07:10 Nasal Cannula 5.0 40 06/07/18 07:10 95 Nasal Cannula 5.0 40 06/07/18 07:10 89 22 Nasal Cannula 5.0 40 06/07/18 05:50 142/85 06/07/18 04:20 77 06/07/18 04:20 97.9 85 18 142/82 (102) 95 06/07/18 03:30 75 19 96 Facial 50 06/07/18 01:13 72 21 97 Facial 50 06/07/18 00:07 98.1 68 18 135/75 (95) 95 2/18/19 00:00 68 06/07/18 00:00 135/75 06/06/18 21:30 97.9 76 18 121/63 (82) 95 06/06/18 21:26 97.2 06/06/18 21:00 Nasal Cannula 4.0 06/06/18 20:36 77 142/77 06/06/18 20:00 100.0 75 18 142/77 (98) 95 06/06/18 20:00 84 06/06/18 19:31 95 Nasal Cannula 5.0 40 06/06/18 19:31 85 22 Nasal Cannula 5.0 40 06/06/18 19:31 Nasal Cannula 5.0 40 06/06/18 17:16 138/82 06/06/18 17:16 77 138/82 06/06/18 16:00 97.2 64 18 121/68 (85) 95 06/06/18 16:00 80 06/06/18 15:02 77 18 100 Facial 50 06/06/18 13:38 138/82 06/06/18 13:27 67 16 100 Facial 50 06/06/18 12:15 112 22 94 Facial 50 06/06/18 12:00 65 06/06/18 12:00 97.6 65 18 126/58 (80) 96 Intake and Output 06/06/18 06/07/18 19:00 07:00 Intake Total 500 ml Balance 500 ml Intake Oral 500 ml # Voids 2 Laboratory Tests Test 06/06/18 10:00 06/07/18 04:00 White Blood Count 14.6 K/UL (4.8-10.8) H 16.6 K/UL (4.8-10.8) H Red Blood Count 2.52 M/UL (4.20-5.40) L 3.46 M/UL (4.20-5.40) L Hemoglobin 7.0 G/DL (12.0-16.0) L 9.7 G/DL (12.0-16.0) #L Hematocrit 22.5 % (37.0-47.0) L 30.5 % (37.0-47.0) #L Mean Corpuscular Volume 89 FL (80-99) 88 FL (80-99) Mean Corpuscular Hemoglobin 27.7 PG (27.0-31.0) 28.1 PG (27.0-31.0) Mean Corpuscular Hemoglobin Concent 31.1 G/DL (32.0-36.0) L 31.8 G/DL (32.0-36.0) L Red Cell Distribution Width 22.7 % (11.6-14.8) H 21.3 % (11.6-14.8) H Platelet Count 202 K/UL (150-450) 206 K/UL (150-450) Mean Platelet Volume 6.5 FL (6.5-10.1) 7.1 FL (6.5-10.1) Neutrophils (%) (Auto) % (45.0-75.0) % (45.0-75.0) Lymphocytes (%) (Auto) % (20.0-45.0) % (20.0-45.0) Monocytes (%) (Auto) % (1.0-10.0) % (1.0-10.0) Eosinophils (%) (Auto) % (0.0-3.0) % (0.0-3.0) Basophils (%) (Auto) % (0.0-2.0) % (0.0-2.0) Differential Total Cells Counted 100 Neutrophils % (Manual) 91 % (45-75) H Pending Lymphocytes % (Manual) 4 % (20-45) L Pending Monocytes % (Manual) 5 % (1-10) Eosinophils % (Manual) 0 % (0-3) Basophils % (Manual) 0 % (0-2) Band Neutrophils 0 % (0-8) Platelet Estimate Adequate Pending Platelet Morphology Normal Pending Polychromasia 1+ Hypochromasia 2+ Anisocytosis 3+ Sodium Level 145 MMOL/L (136-145) Potassium Level 4.1 MMOL/L (3.5-5.1) Chloride Level 110 MMOL/L (98-107) H Carbon Dioxide Level 24 MMOL/L (21-32) Anion Gap 11 mmol/L (5-15) Blood Urea Nitrogen 22 mg/dL (7-18) H Creatinine 1.8 MG/DL (0.55-1.30) H Estimat Glomerular Filtration Rate 27.8 mL/min (>60) Glucose Level 210 MG/DL (74-106) H Calcium Level 8.2 MG/DL (8.5-10.1) L Iron Level 25 ug/dL (50-175) L Total Iron Binding Capacity 182 ug/dL (250-450) L Percent Iron Saturation 14 % (15-50) L Unsaturated Iron Binding 157 ug/dL (112-346) Total Bilirubin 0.8 MG/DL (0.2-1.0) Aspartate Amino Transf (AST/SGOT) 30 U/L (15-37) Alanine Aminotransferase (ALT/SGPT) 36 U/L (12-78) Alkaline Phosphatase 336 U/L (46-116) H Total Protein 6.5 G/DL (6.4-8.2) Albumin 2.1 G/DL (3.4-5.0) L Globulin 4.4 g/dL Albumin/Globulin Ratio 0.5 (1.0-2.7) L Height (Feet): 4 Height (Inches): 10.00 Weight (Pounds): 179 General Appearance: WD/WN, no apparent distress, alert Cardiovascular: normal rate Respiratory/Chest: normal breath sounds, no respiratory distress Abdominal Exam: normal bowel sounds, non tender, soft Extremities: non-tender Ros Berry NP Jun 07, 2018 09:59
[2018-06-07] MEDS: LORazepam 1mg tab ORAL PRN ×2 (10:04→19:01)
[2018-06-07] MEDS: Aspirin Baby 81mg ORAL SCH (10:05)
[2018-06-07] MEDS: Metoprolol Tartrate 50mg tab ORAL SCH ×2 (10:06→20:44)
[2018-06-07] MEDS: Enoxaparin 80mg Inj SUBQ SCH (10:14)
[2018-06-07] MEDS: cefTRIAXone 1 GM in D5W 55 ML IVPB SCH (10:17)
--- NOTE | 2018-06-07 10:59 | Infectious Diseases Prog Note ---
"Assessment/Plan Assessment/Plan antibiotics : A 1. klebsiella | streptococcus pneumonia 2. herpes of lip s/p rx 3. diabetic ketoacidosis resolved 4. respiratory failure resolved 5. hypertension 6. leucocytosis increased 7. renal failure improving P 1. continue ceftriaxone 2. stool for c.diff 3. start flagyl 4. will follow up cultures Subjective Constitutional: Denies: fever, chills Respiratory: Denies: shortness of breath, dry cough Gastrointestinal/Abdominal: Denies: nausea, vomiting, diarrhea Musculoskeletal: Denies: pain Allergies: Coded Allergies: SHELLFISH DERIVED (Verified Allergy, Unknown, swelling and itchiness, 05/14) Objective Vital Signs Last 24 Hour Vital Signs Date Time Temp Pulse Resp B/P (MAP) Pulse Ox O2 Delivery O2 Flow Rate FiO2 06/07/18 10:06 89 115/55 06/07/18 10:06 73 115/55 06/07/18 08:31 Nasal Cannula 4.0 06/07/18 08:00 97.7 20 115/55 (75) 100 06/07/18 07:10 Nasal Cannula 5.0 40 06/07/18 07:10 95 Nasal Cannula 5.0 40 06/07/18 07:10 89 22 Nasal Cannula 5.0 40 06/07/18 05:50 142/85 06/07/18 04:20 77 06/07/18 04:20 97.9 85 18 142/82 (102) 95 06/07/18 03:30 75 19 96 Facial 50 06/07/18 01:13 72 21 97 Facial 50 06/07/18 00:07 98.1 68 18 135/75 (95) 95 06/07/18 00:00 68 06/07/18 00:00 135/75 06/06/18 21:30 97.9 76 18 121/63 (82) 95 06/06/18 21:26 97.2 06/06/18 21:00 Nasal Cannula 4.0 06/06/18 20:36 77 142/77 06/06/18 20:00 100.0 75 18 142/77 (98) 95 06/06/18 20:00 84 06/06/18 19:31 95 Nasal Cannula 5.0 40 06/06/18 19:31 85 22 Nasal Cannula 5.0 40 06/06/18 19:31 Nasal Cannula 5.0 40 06/06/18 17:16 138/82 06/06/18 17:16 77 138/82 06/06/18 16:00 97.2 64 18 121/68 (85) 95 06/06/18 16:00 80 06/06/18 15:02 77 18 100 Facial 50 06/06/18 13:38 138/82 06/06/18 13:27 67 16 100 Facial 50 06/06/18 12:15 112 22 94 Facial 50 06/06/18 12:00 65 06/06/18 12:00 97.6 65 18 126/58 (80) 96 Height (Feet): 4 Height (Inches): 10.00 Weight (Pounds): 179 Respiratory/Chest: lungs clear Cardiovascular: normal rate, regular rhythm, no gallop/murmur Abdomen: soft, non tender Extremities: other - + edema Laboratory Tests Test 06/07/18 04:00 White Blood Count 16.6 K/UL (4.8-10.8) H Red Blood Count 3.46 M/UL (4.20-5.40) L Hemoglobin 9.7 G/DL (12.0-16.0) #L Hematocrit 30.5 % (37.0-47.0) #L Mean Corpuscular Volume 88 FL (80-99) Mean Corpuscular Hemoglobin 28.1 PG (27.0-31.0) Mean Corpuscular Hemoglobin Concent 31.8 G/DL (32.0-36.0) L Red Cell Distribution Width 21.3 % (11.6-14.8) H Platelet Count 206 K/UL (150-450) Mean Platelet Volume 7.1 FL (6.5-10.1) Neutrophils (%) (Auto) % (45.0-75.0) Lymphocytes (%) (Auto) % (20.0-45.0) Monocytes (%) (Auto) % (1.0-10.0) Eosinophils (%) (Auto) % (0.0-3.0) Basophils (%) (Auto) % (0.0-2.0) Neutrophils % (Manual) Pending Lymphocytes % (Manual) Pending Platelet Estimate Pending Platelet Morphology Pending Current Medications Medications (Trade) Dose Ordered Sig/Ellen Route PRN Reason Start Time Stop Time Status Last Admin Dose Admin Acetaminophen (Tylenol) 650 mg Q4H PRN ORAL Mild Pain/Temp > 100.5 06/02/18 20:32 07/02/18 20:31 06/06/18 20:56 Al Hydroxide/Mg Hydroxide (Mylanta) 30 ml Q6H PRN ORAL Abdominal cramps 06/02/18 20:34 07/02/18 20:33 Amlodipine Besylate (Norvasc) 5 mg BID ORAL 06/03/18 09:00 06/28/18 08:59 06/07/18 10:06 Aspirin (ASA) 81 mg DAILY ORAL 06/03/18 09:00 06/24/18 08:59 06/07/18 10:05 Ceftriaxone Sodium 1 gm/ Dextrose 55 ml @ 110 mls/hr Q24H IVPB 06/04/18 10:00 06/11/18 09:59 06/07/18 10:17 Chlorhexidine Gluconate (Leora-Hex 2%) 1 applic DAILY@2000 TOPIC 06/03/18 20:00 06/24/18 19:59 06/06/18 19:55 Dextrose (Dextrose 50%) 25 ml Q30M PRN IV Hypoglycemia 06/02/18 20:45 06/13/18 10:14 Dextrose (Dextrose 50%) 50 ml Q30M PRN IV Hypoglycemia 06/02/18 20:45 06/13/18 10:14 Enoxaparin Sodium (Lovenox) 80 mg Q24H SUBQ 06/04/18 09:00 07/03/18 08:59 06/07/18 10:14 Haloperidol Lactate (Haldol) 5 mg Q6H PRN IM Agitation 06/02/18 20:33 07/02/18 20:32 06/07/18 05:06 Hydralazine HCl (Apresoline) 25 mg Q6HR ORAL 06/03/18 00:00 07/02/18 00:00 06/06/18 17:16 Insulin Aspart (NovoLOG) BEFORE MEALS AND HS SUBQ 06/02/18 21:00 06/13/18 11:29 06/07/18 06:06 Lorazepam (Ativan) 1 mg Q6H PRN ORAL For Anxiety 06/02/18 20:34 06/09/18 20:33 06/07/18 10:04 Magnesium Hydroxide (Mom) 30 ml DAILYPRN PRN ORAL Constipation 06/02/18 20:34 07/02/18 20:33 Metoprolol Tartrate (Lopressor) 5 mg Q2H PRN IVP For High Blood Pressure 06/02/18 21:00 06/23/18 16:59 Metoprolol Tartrate (Lopressor) 50 mg Q12HR ORAL 06/02/18 21:00 06/26/18 20:59 06/07/18 10:06 Olanzapine (ZyPREXA) 2.5 mg BEDTIME ORAL 06/02/18 21:00 07/01/18 20:59 06/06/18 20:37 Pantoprazole (Protonix) 40 mg ACBREAKFAST ORAL 06/03/18 06:30 06/26/18 06:29 06/05/18 05:38 Khadra Melendez MD Jun 07, 2018 10:59"
[2018-06-07 12:00] VITALS: BP 132/60
--- NOTE | 2018-06-07 12:28 | NUR ---
SWALLOW/SPEECH THERAPY NOTE: SEE SWALLOW EVAL IN ST CARE ACTIVITY SECTION. REFERRED BY DR GRACIA (GI DR GARCIA ALSO ON CASE) DYSPHAGIA RISK FACTORS FOR THIS 72 Y.O.F: ACUTE ABDOMINAL PAIN, SORE THROAT, DEHYDRATION, DIABETIC KETOACIDOSIS, WEAKNESS, FATIGUE, ALBUMIN 3.1 AND A/G RATIO .08, RECENT CXR NEG FOR INFILTRATES HAS BILAT PLEURAL EFFUSIONS, PROTEIN-AVANI MALNUTRITION, PANCREATITIS, ORAL ULCERS. RECENT HEAD CT SCAN: SMALL SUBACUTE CORTICAL INFARCT RIGH PARIETAL, MULTIPLE OLD INFARCTS, ENCEPHALOMALACIA RIGHT CEREBELLAR AREA. MOST RECENT CXR NO INFILTRATES BUT HAD SOME AIRSPACE CONGESTION AND Nonspecific opacity in the right lower lung may be infectious or inflammatory ON PRIOR CXRs and still needs BIPAP. H/O OLD CVAS, PNA, SEPSIS, RESP FAILURE, COPD, CABG, DM (ON INSULIN DRIP), CHF EXACERBATION, GOUT, CARDIAC BYPASS GRAFT SURGERY. POLST/AD REGARDING TF:NONE FOUND PRIOR DIET UNKNOWN PER DAUGHTER, COUGHED WITH TSP OF THIN LIQUID CURRENTLY ON A CCHO MED RENAL DIET PUREED AND HONEY THICK LIQUIDS WITH POOR INTAKE 25 MOSTLY 75% ONE TIME (NO OVERT ASP WITH MEAL PER HER DTR EXCEPT FOR ON ONE TSP WATER). LIKES ICE CHIPS. PER RD RECOMMENDS CCHO-LOW LOW NA LOW FT DIET WITH GLUCERNA ONE TETRA PACK BID AND IS OBESE CLASS I INITIAL IMPRESSIONS: ALERT WITH CUES (VERY TIRED) MILD-?MODERATE OROPHARYNGEAL DYSPHAGIA WITH MILD INCREASE IN ORAL PREP AND OROPHARYNGEAL TRANSIT TIMES. NO OVERT S/S OF ASPIRATION WITH PO TRIALS OF NECTAR THICK TSP AND PUREED TSP BUT HAS RISK FOR SILENT ASPIRATION (CVA HX AND ONE SUBACUTE) AND NEEDS BIPAP MOST OF THE TIME (NOW ONLY ON 4 LITERS NC) BUT HAS SOME SOB AFTER THE SWALLOW. PATIENT HAD S/S OF OVERT ASP WITH THIN LIQUIDS TSP PER DTR SO TRIAL NOT GIVEN. TOO SOB FOR MASTICATED SOLID TRIAL FOR NOW. REDUCED LIP CLOSURE/SEAL ON RIGHT AND SLOWER AND WEAKER TONGUE MOVEMENTS. VOICE AND COUGH VERY WEAK IS ADDED ASP RISK. RECOMMENDATIONS: VIDEOSWALLOW STUDY TO FURTHER ASSESS SWALLOW, DETERMINE SILENT ASP RISK/ETIOLOGY, AND ATTEMPT TRIAL TX TECHNIQUES IF PO CONTINUES FOR QOL, CONSIDER KEEP ON PUREED AND UPGRADE TO NECTAR THICK LIQUIDS (DISLIKES HONEY THICK PER DTR) USING POSTED ASP PREC. CONSIDER CHANGING DIET TYPE TO CCHO-LOW LOW NA AND LF PER RD (SEE THEIR NOTE) DYSPHAGIA MANAGEMENT AND TX COG-COM EVAL/TX GIVEN SUBACUTE CVA AND OLD CVAS AND VERY SOFT VOICE. D/W STAFF AND FAMILY
[2018-06-07] MEDS ORDERED: metroNIDAZOLE 250mg tab ORAL SCH (12:30)
[2018-06-07] MEDS: metroNIDAZOLE 250mg tab ORAL SCH ×2 (12:46→21:33)
--- NOTE | 2018-06-07 14:20 | NUR ---
*- INSURANCE *-* ALL CLINICALS AND REVIEWS AND INTERQUAL HAVE BEEN FAXED TO: [facility] ROSA: RUDY P:[phone] F:[phone]
--- NOTE | 2018-06-07 15:57 | General Progress Note ---
Assessment/Plan Assessment/Plan Assessment and Recs # Pancytopenia -- appears that initial hep and hiv are negative though final results to follow, liver shows no major hsm or cirrhosis, may consider meds or bone marrow process, smear reviewed, does have low albumin, has been hospitalized for some time, in and out since 04/30/18 --> query meds, review with ID, is on micafungin now, monitor counts closely --> given hgb downtrending and some nucleated reds on smear, will send off a flow cytometry --> nepogen 300mcg sq to maintain anc >1500 --> wbc trend : 1.7-->4.3-->3.1-->3.4-->7.7-->8.1--12-->15-->11-->14.6 # Anemia of chronic disease - monitor anemia panel --> hemolysis does not appear to be the case --> anemia panel reviewed --> hgb trend: 8.3-->9.2-->8.9-->8.7-->9-->7.7-->7 # Paroxysmal atrial fibrillation, due to CHADS-VASC score of 5, we require to keep anticoagulated, on metoprolol --> continue on apixaban # Hx of CAD, s/p CABG, ASA , atorvastatin and metoprolol. No wall motion abnormalities on Echo. LVEF ~55%. --> appreciate cards recs # Sinus tachycardia due to hypovolemia, resolved. # DKA, resolved. --> continue monitor # DM, non-compliant with medications. # Hx of HTN, controlled with metoprolol. # pancreatitis # increased LFT The timing of this note does not necessarily reflect the time of the patient was seen. Greatly appreciate consultation! Subjective Constitutional: Denies: no symptoms, chills, diaphoresis, fever, malaise, weakness, other HEENT: Denies: no symptoms, eye pain, blurred vision, tearing, double vision, ear pain, ear discharge, nose pain, nose congestion, throat pain, throat swelling, mouth pain, mouth swelling, other Cardiovascular: Denies: no symptoms, chest pain, edema, irregular heart rate, lightheadedness, palpitations, syncope, other Respiratory: Denies: no symptoms, cough, orthopnea, shortness of breath, SOB with excertion, SOB at rest, sputum, stridor, wheezing, other Gastrointestinal/Abdominal: Denies: no symptoms, abdomen distended, abdominal pain, black stools, tarry stools, blood in stool, constipated, diarrhea, difficulty swallowing, nausea, poor appetite, poor fluid intake, rectal bleeding , vomiting, other Genitourinary: Denies: no symptoms, burning, discharge, frequency, flank pain, hematuria, incontinence, pain, urgency, other Neurologic/Psychiatric: Denies: no symptoms, anxiety, depressed, emotional problems, headache, numbness, paresthesia, pre-existing deficit, seizure, tingling, tremors, weakness, other Endocrine: Denies: no symptoms, excessive sweating, flushing, intolerance to cold, intolerance to heat, increased hunger, increased thirst, increased urine, unexplained weight gain, unexplained weight loss, other Hematologic/Lymphatic: Denies: no symptoms, anemia, easy bleeding, easy bruising, other Allergies: Coded Allergies: SHELLFISH DERIVED (Verified Allergy, Unknown, swelling and itchiness, 05/14) Subjective 05/18: Pt is awake and comfortable, no events, leukopenia improved, wbc 4.3, plt 151 05/19: seen by bedside, awake, comfortable, plt 122 05/20: Pt is awake and comfortable, no events 05/21: Pt is seen in the room, resting in bed, no fevers or chills, wbc 8.7, plt 117 2: Pt is resting in bed, awake, comfortable, no fevers or chills, no acute distress. 05/24: EGD and EUS done today, has no gallbladder stones, only pancreatitis, no events 2: no events, dermatitis has improved, off loading of heels, pancreatitis and dka better 05/26: Pt is awake, comfortable, no acute events overnight, hgb 8.6 05/27: seen by bedside, awake, comfortable, no events 05/28: resting in bed, awake, comfortable, no fevers or chills, no acute distress , No need for ERCP per GI, 05/31: Pt is awake and comfortable, no events 06/01: awake, comfortable, denies acute distress. 06/02: seen by bedside, awake, comfortable, no acute distress. wbc 15. 2: no acute events, denies any abdominal pain, wbc trending down at 11 today. 06/04: awake/drowsy in bed, breathing easily on nasal cannula, denies SOB and pain at this time. 06/06: anemia cotninues to worsen, may consider a bone marrow biopsy if patient approves 06/07: hgb 9.7, not eating well, remains lethargic Objective Last 24 Hour Vital Signs Date Time Temp Pulse Resp B/P (MAP) Pulse Ox O2 Delivery O2 Flow Rate FiO2 06/07/18 12:46 132/60 06/07/18 12:00 98.1 77 22 132/60 (84) 94 06/07/18 11:55 83 06/07/18 11:32 81 18 99 Facial 50 06/07/18 10:06 89 115/55 06/07/18 10:06 73 115/55 06/07/18 08:31 Nasal Cannula 4.0 06/07/18 08:00 97.7 20 115/55 (75) 100 06/07/18 07:49 77 06/07/18 07:10 Nasal Cannula 5.0 40 06/07/18 07:10 95 Nasal Cannula 5.0 40 06/07/18 07:10 89 22 Nasal Cannula 5.0 40 06/07/18 05:50 142/85 06/07/18 04:20 77 06/07/18 04:20 97.9 85 18 142/82 (102) 95 06/07/18 03:30 75 19 96 Facial 50 06/07/18 01:13 72 21 97 Facial 50 06/07/18 00:07 98.1 68 18 135/75 (95) 95 06/07/18 00:00 68 06/07/18 00:00 135/75 06/06/18 21:30 97.9 76 18 121/63 (82) 95 06/06/18 21:26 97.2 06/06/18 21:00 Nasal Cannula 4.0 06/06/18 20:36 77 142/77 06/06/18 20:00 100.0 75 18 142/77 (98) 95 06/06/18 20:00 84 06/06/18 19:31 95 Nasal Cannula 5.0 40 06/06/18 19:31 85 22 Nasal Cannula 5.0 40 06/06/18 19:31 Nasal Cannula 5.0 40 06/06/18 17:16 138/82 06/06/18 17:16 77 138/82 06/06/18 16:00 97.2 64 18 121/68 (85) 95 06/06/18 16:00 80 Intake and Output 06/06/18 06/07/18 18:59 06:59 Intake Total 500 ml Balance 500 ml Intake Oral 500 ml # Voids 2 Laboratory Tests 06/07/18 04:00: White Blood Count 16.6H, Red Blood Count 3.46L, Hemoglobin 9.7#L, Hematocrit 30.5#L, Mean Corpuscular Volume 88, Mean Corpuscular Hemoglobin 28.1, Mean Corpuscular Hemoglobin Concent 31.8L, Red Cell Distribution Width 21.3H, Platelet Count 206, Mean Platelet Volume 7.1, Neutrophils (%) (Auto) , Lymphocytes (%) (Auto) , Monocytes (%) (Auto) , Eosinophils (%) (Auto) , Basophils (%) (Auto) , Differential Total Cells Counted 100, Neutrophils % ( Manual) 92H, Lymphocytes % (Manual) 2L, Monocytes % (Manual) 6, Eosinophils % ( Manual) 0, Basophils % (Manual) 0, Band Neutrophils 0, Platelet Estimate Adequate, Platelet Morphology Normal, Anisocytosis 2+ Height (Feet): 4 Height (Inches): 10.00 Weight (Pounds): 179 Objective PHYSICAL EXAMINATION: GENERAL: Pleasant [place] woman, tired HEENT: Normocephalic and atraumatic. Sclerae anicteric. Oropharynx clear. NECK: Supple. CHEST: Clear to auscultation. CARDIOVASCULAR: Revealed regular rate. ABDOMEN: Soft. Good bowel sounds. There is no organomegaly or tenderness. Anterior chest and abdomen scars were as expected. EXTREMITIES: Revealed no edema. Armando Bowen MD Jun 07, 2018 15:57
[2018-06-07 16:00] VITALS: BP 130/63
[2018-06-07] MEDS ORDERED: Tubing Blood Filter IV ONE (19:55)
[2018-06-07] MEDS ORDERED: NS 275ml ONE (19:55)
[2018-06-07] MEDS ORDERED: Tubing IV Secondary IV ONE (19:55)
[2018-06-07 20:00] VITALS: BP 131/55
[2018-06-07] MEDS: Dyna-Hex 2% Top Sol 2oz TOPIC SCH (20:12)
--- NOTE | 2018-06-07 20:16 | NUR ---
HAND-OFF: Report given to Jessica Zaidi.
--- NOTE | 2018-06-07 20:20 | NUR ---
NURSE NOTES: Received report from WAYNE Yi. Patient awake, responsive to verbal and external stimuli. No SOB, no acute distress noted, on 4 L via NC, O2 sat at 98%. PICC line on L upper arm, 2 lumens, with dry and intact dressing, both patent and intact. On P200 mattress to prevent skin breakdown. Bed at lowest position, call light within reach. Will continue plan of care.
[2018-06-07] MEDS: OLANZapine 2.5mg tab ORAL SCH (20:43)
--- NOTE | 2018-06-07 21:27 | Cardiology Progress Note ---
Assessment/Plan Assessment/Plan 1. Paroxysmal atrial fibrillation, in SR now, due to CHADS-VASC score of 5, continue enoxaparin and metoprolol. 2. Hx of CAD, s/p CABG, ASA , atorvastatin and metoprolol. No wall motion abnormalities on Echo. LVEF ~55%. 3. Sinus tachycardia, resolved, due to hypovolemia. 4. DKA, resolved. 5. DM 6. HTN, well controlled, continue amlodipine, metoprolol and hydralazine. 7. Severe pulmonary HTN. 8. MAMADOU, creatinine down to 1.8. 9. Hypokalemia, resolved, K at 4.1. Subjective Subjective Sinus rhythm at rate of 71. On bipap mask. Objective Last 24 Hour Vital Signs Date Time Temp Pulse Resp B/P (MAP) Pulse Ox O2 Delivery O2 Flow Rate FiO2 06/07/18 20:44 71 131/55 06/07/18 19:01 130/63 06/07/18 19:01 65 130/63 06/07/18 18:45 Bi-pap 50 06/07/18 18:45 88 20 97 Facial 50 06/07/18 18:45 88 22 Bi-pap 50 06/07/18 18:45 97 Bi-pap 50 06/07/18 16:00 97.9 65 22 130/63 (85) 97 06/07/18 15:46 62 06/07/18 12:46 132/60 06/07/18 12:00 98.1 77 22 132/60 (84) 94 06/07/18 11:55 83 06/07/18 11:32 81 18 99 Facial 50 06/07/18 10:06 89 115/55 06/07/18 10:06 73 115/55 06/07/18 08:31 Nasal Cannula 4.0 06/07/18 08:00 97.7 20 115/55 (75) 100 06/07/18 07:49 77 06/07/18 07:10 Nasal Cannula 5.0 40 06/07/18 07:10 95 Nasal Cannula 5.0 40 06/07/18 07:10 89 22 Nasal Cannula 5.0 40 06/07/18 05:50 142/85 06/07/18 04:20 77 06/07/18 04:20 97.9 85 18 142/82 (102) 95 06/07/18 03:30 75 19 96 Facial 50 06/07/18 01:13 72 21 97 Facial 50 06/07/18 00:07 98.1 68 18 135/75 (95) 95 06/07/18 00:00 68 06/07/18 00:00 135/75 06/06/18 21:30 97.9 76 18 121/63 (82) 95 06/06/18 21:26 97.2 Intake and Output 06/06/18 06/07/18 18:59 06:59 Intake Total 500 ml Balance 500 ml Intake Oral 500 ml # Voids 2 2D Echo: EF55%,Mild LVH,Mod MR,Mild AR,RVSP 67 mmHg (severe PHT),Restrictive LV phy Laboratory Tests Test 06/07/18 04:00 White Blood Count 16.6 K/UL (4.8-10.8) H Red Blood Count 3.46 M/UL (4.20-5.40) L Hemoglobin 9.7 G/DL (12.0-16.0) #L Hematocrit 30.5 % (37.0-47.0) #L Mean Corpuscular Volume 88 FL (80-99) Mean Corpuscular Hemoglobin 28.1 PG (27.0-31.0) Mean Corpuscular Hemoglobin Concent 31.8 G/DL (32.0-36.0) L Red Cell Distribution Width 21.3 % (11.6-14.8) H Platelet Count 206 K/UL (150-450) Mean Platelet Volume 7.1 FL (6.5-10.1) Neutrophils (%) (Auto) % (45.0-75.0) Lymphocytes (%) (Auto) % (20.0-45.0) Monocytes (%) (Auto) % (1.0-10.0) Eosinophils (%) (Auto) % (0.0-3.0) Basophils (%) (Auto) % (0.0-2.0) Differential Total Cells Counted 100 Neutrophils % (Manual) 92 % (45-75) H Lymphocytes % (Manual) 2 % (20-45) L Monocytes % (Manual) 6 % (1-10) Eosinophils % (Manual) 0 % (0-3) Basophils % (Manual) 0 % (0-2) Band Neutrophils 0 % (0-8) Platelet Estimate Adequate Platelet Morphology Normal Anisocytosis 2+ Objective HEENT: Normocephalic, atraumatic, Pupils equally reactive to light and accommodation, EOMI. NECK: No JVD, no carotid bruit. CARDIOVASCULAR: Regular rate and rhythm. No murmurs, gallops or rubs. LUNGS: Clear to auscultation bilaterally. No crackles or Rhonchi. ABDOMEN: Soft and nontender. No organomegaly, + BS. EXTREMITIES: No cyanosis, clubbing or edema. Miller Mckeon MD Jun 07, 2018 21:27
[2018-06-08] VITALS (10 sets, daily range): BP systolic 82–139; BP diastolic 44–74
[2018-06-08] MEDS: HydrALAZINE 25mg tab ORAL SCH ×5 (00:31→23:55)
[2018-06-08] MEDS: LORazepam 1mg tab ORAL PRN (01:11)
--- NOTE | 2018-06-08 03:30 | NUR ---
NURSE NOTES: Patient asleep, breathing even and unlabored on 4 L via NC, no s/sx of pain nor any discomfort at this time. Bed at lowest position, call light within reach. Will continue to monitor.
[2018-06-08] MEDS: metroNIDAZOLE 250mg tab ORAL SCH (05:34)
[2018-06-08 05:37] LABS: BASOPHILS % (AUTO) 1.3 % (0.0-2.0); EOSINOPHILS % (AUTO) 0.6 % (0.0-3.0); HEMATOCRIT 28.8 % (37.0-47.0); HEMOGLOBIN 9.4 G/DL (12.0-16.0); LYMPHOCYTES % (AUTO) 5.7 % (20.0-45.0); MEAN CORPUSCULAR VOLUME 88 FL (80-99); MONOCYTES % (AUTO) 7.7 % (1.0-10.0); NEUTROPHILS % (AUTO) 84.7 % (45.0-75.0); PLATELET COUNT 245 K/UL (150-450); RED BLOOD COUNT 3.26 M/UL (4.20-5.40); RED CELL DISTRIBUTION WIDTH 20.9 % (11.6-14.8); WHITE BLOOD COUNT 16.5 K/UL (4.8-10.8)
[2018-06-08] MEDS: NovoLOG Insulin Flexpen SUBQ SCH ×4 (06:04→21:08)
[2018-06-08 06:21] LABS: ANION GAP 12 mmol/L (5-15); BLOOD UREA NITROGEN 27 mg/dL (7-18); CALCIUM 8.1 MG/DL (8.5-10.1); CARBON DIOXIDE 24 MMOL/L (21-32); CHLORIDE 109 MMOL/L (98-107); CREATININE 1.8 MG/DL (0.55-1.30); POTASSIUM 3.7 MMOL/L (3.5-5.1); SODIUM 145 MMOL/L (136-145)
--- NOTE | 2018-06-08 07:25 | NUR ---
HAND-OFF: Report given to WAYNE Holden. Endorsed plan of care.
--- NOTE | 2018-06-08 07:39 | NUR ---
NURSE NOTES: received patient report from ellis fitzpatrick. patient is agitated. on 4 li NC. SR with PACs. Able to verbalize needs. will continue plans of care.
--- NOTE | 2018-06-08 09:08 | General Progress Note ---
Assessment/Plan Assessment/Plan Impression Diabetic ketoacidosis Anemia Transaminitis of unclear etiology Severe protein calorie malnutrition Evidence of pancreatitis, better Acute renal failure, improved Hyperglycemia Diabetes Hyponatremia Metabolic acidosis Hypercholesterolemia fever oral ulcers afib with RVR leukopenia pancreatitis CVA pleural effusions d/w family about GT- await decision needs nutrition on antibiotics with + cultures; per ID on lovenox ? eliquis 3rd spacing at present care noted; will need rehab with current status still very weak swallow evaluation pending impression, plan, and exam edited and reviewed in detail care discussed with RN Subjective Allergies: Coded Allergies: SHELLFISH DERIVED (Verified Allergy, Unknown, swelling and itchiness, 05/14) Subjective care noted not eating well NAD still lethargic Objective Last 24 Hour Vital Signs Date Time Temp Pulse Resp B/P (MAP) Pulse Ox O2 Delivery O2 Flow Rate FiO2 06/08/18 08:55 89 24 99 Facial 50 06/08/18 07:45 Nasal Cannula 4.0 36 06/08/18 07:45 90 22 Nasal Cannula 36 06/08/18 07:44 95 Nasal Cannula 4.0 36 06/08/18 05:35 142/71 06/08/18 05:30 92 28 93 Facial 50 06/08/18 04:00 79 06/08/18 04:00 98.1 83 21 136/74 (94) 97 06/08/18 00:31 135/59 06/08/18 00:00 98.1 77 20 135/59 (84) 96 06/08/18 00:00 77 06/07/18 21:00 Nasal Cannula 4.0 06/07/18 20:44 71 131/55 06/07/18 20:00 80 06/07/18 20:00 97.9 80 18 131/55 (80) 98 06/07/18 19:01 130/63 06/07/18 19:01 65 130/63 06/07/18 18:45 Bi-pap 50 06/07/18 18:45 88 20 97 Facial 50 06/07/18 18:45 88 22 Bi-pap 50 06/07/18 18:45 97 Bi-pap 50 06/07/18 16:00 97.9 65 22 130/63 (85) 97 06/07/18 15:46 62 06/07/18 12:46 132/60 06/07/18 12:00 98.1 77 22 132/60 (84) 94 06/07/18 11:55 83 06/07/18 11:32 81 18 99 Facial 50 06/07/18 10:06 89 115/55 06/07/18 10:06 73 115/55 Intake and Output 06/07/18 06/08/18 18:59 06:59 Intake Total 120 ml Balance 120 ml Intake Oral 120 ml # Voids 2 2 # Bowel Movements 1 Laboratory Tests 06/08/18 04:45: White Blood Count 16.5H, Red Blood Count 3.26L, Hemoglobin 9.4L, Hematocrit 28.8L, Mean Corpuscular Volume 88, Mean Corpuscular Hemoglobin 28.8, Mean Corpuscular Hemoglobin Concent 32.6, Red Cell Distribution Width 20.9H, Platelet Count 245, Mean Platelet Volume 7.3, Neutrophils (%) (Auto) 84.7H, Lymphocytes (%) (Auto) 5.7L, Monocytes (%) (Auto) 7.7, Eosinophils (%) (Auto) 0.6, Basophils (%) (Auto) 1.3, Sodium Level 145, Potassium Level 3.7, Chloride Level 109H, Carbon Dioxide Level 24, Anion Gap 12, Blood Urea Nitrogen 27H, Creatinine 1.8H, Estimat Glomerular Filtration Rate 27.8, Glucose Level 207H, Calcium Level 8.1L 06/08/18 05:00: Stool Occult Blood Negative Height (Feet): 4 Height (Inches): 10.00 Weight (Pounds): 180 Objective WDWN lethargic clear breath sounds bilaterally without rhonchi or wheeze S1S2 RRR without MRG NABS nontender no HSM no CCE remains weak Jesus Lew MD Jun 08, 2018 09:08
[2018-06-08] MEDS: Aspirin Baby 81mg ORAL SCH (09:09)
[2018-06-08] MEDS: Metoprolol Tartrate 50mg tab ORAL SCH ×2 (09:09→21:06)
[2018-06-08] MEDS: Enoxaparin 80mg Inj SUBQ SCH (09:16)
[2018-06-08] MEDS: cefTRIAXone 1 GM in D5W 55 ML IVPB SCH (09:18)
--- NOTE | 2018-06-08 10:43 | NUR ---
NURSE NOTES: patient was initially put on restraints for being non-compliant. removing BIPAP whenever its on. but patient became more agitated and crying and was asking to take out the restraint. patient was reoriented. patient is more calmer now and not refusing BIPAP anymore. restraints were dcd.will continue to monitor.
--- NOTE | 2018-06-08 10:48 | Infectious Diseases Prog Note ---
"Assessment/Plan Assessment/Plan antibiotics : ceftriaxone, flagyl A 1. klebsiella | streptococcus pneumonia 2. herpes of lip s/p rx 3. diabetic ketoacidosis resolved 4. respiratory failure resolved 5. hypertension 6. leucocytosis increased 7. renal failure improving P 1. continue ceftriaxone, flagyl 2. will follow up cultures Subjective ROS Limited/Unobtainable: Yes Allergies: Coded Allergies: SHELLFISH DERIVED (Verified Allergy, Unknown, swelling and itchiness, 05/14) Objective Vital Signs Last 24 Hour Vital Signs Date Time Temp Pulse Resp B/P (MAP) Pulse Ox O2 Delivery O2 Flow Rate FiO2 06/08/18 09:09 89 136/70 06/08/18 09:09 89 136/70 06/08/18 09:00 Nasal Cannula 4.0 06/08/18 08:55 89 24 99 Facial 50 06/08/18 08:00 98.0 97 22 139/57 (84) 92 06/08/18 07:45 Nasal Cannula 4.0 36 06/08/18 07:45 90 22 Nasal Cannula 36 06/08/18 07:44 95 Nasal Cannula 4.0 36 06/08/18 05:35 142/71 06/08/18 05:30 92 28 93 Facial 50 06/08/18 04:00 79 06/08/18 04:00 98.1 83 21 136/74 (94) 97 06/08/18 00:31 135/59 06/08/18 00:00 98.1 77 20 135/59 (84) 96 06/08/18 00:00 77 06/07/18 21:00 Nasal Cannula 4.0 06/07/18 20:44 71 131/55 06/07/18 20:00 80 06/07/18 20:00 97.9 80 18 131/55 (80) 98 06/07/18 19:01 130/63 06/07/18 19:01 65 130/63 06/07/18 18:45 Bi-pap 50 06/07/18 18:45 88 20 97 Facial 50 06/07/18 18:45 88 22 Bi-pap 50 06/07/18 18:45 97 Bi-pap 50 06/07/18 16:00 97.9 65 22 130/63 (85) 97 06/07/18 15:46 62 06/07/18 12:46 132/60 06/07/18 12:00 98.1 77 22 132/60 (84) 94 06/07/18 11:55 83 06/07/18 11:32 81 18 99 Facial 50 Height (Feet): 4 Height (Inches): 10.00 Weight (Pounds): 180 Respiratory/Chest: lungs clear Cardiovascular: normal rate, regular rhythm, no gallop/murmur Abdomen: soft, non tender Extremities: other - + edema, left arm PICC Laboratory Tests Test 06/08/18 04:45 06/08/18 05:00 White Blood Count 16.5 K/UL (4.8-10.8) H Red Blood Count 3.26 M/UL (4.20-5.40) L Hemoglobin 9.4 G/DL (12.0-16.0) L Hematocrit 28.8 % (37.0-47.0) L Mean Corpuscular Volume 88 FL (80-99) Mean Corpuscular Hemoglobin 28.8 PG (27.0-31.0) Mean Corpuscular Hemoglobin Concent 32.6 G/DL (32.0-36.0) Red Cell Distribution Width 20.9 % (11.6-14.8) H Platelet Count 245 K/UL (150-450) Mean Platelet Volume 7.3 FL (6.5-10.1) Neutrophils (%) (Auto) 84.7 % (45.0-75.0) H Lymphocytes (%) (Auto) 5.7 % (20.0-45.0) L Monocytes (%) (Auto) 7.7 % (1.0-10.0) Eosinophils (%) (Auto) 0.6 % (0.0-3.0) Basophils (%) (Auto) 1.3 % (0.0-2.0) Sodium Level 145 MMOL/L (136-145) Potassium Level 3.7 MMOL/L (3.5-5.1) Chloride Level 109 MMOL/L (98-107) H Carbon Dioxide Level 24 MMOL/L (21-32) Anion Gap 12 mmol/L (5-15) Blood Urea Nitrogen 27 mg/dL (7-18) H Creatinine 1.8 MG/DL (0.55-1.30) H Estimat Glomerular Filtration Rate 27.8 mL/min (>60) Glucose Level 207 MG/DL (74-106) H Calcium Level 8.1 MG/DL (8.5-10.1) L Stool Occult Blood Negative (NEGATIVE) Current Medications Medications (Trade) Dose Ordered Sig/Ellen Route PRN Reason Start Time Stop Time Status Last Admin Dose Admin Acetaminophen (Tylenol) 650 mg Q4H PRN ORAL Mild Pain/Temp > 100.5 06/02/18 20:32 07/02/18 20:31 06/07/18 21:34 Al Hydroxide/Mg Hydroxide (Mylanta) 30 ml Q6H PRN ORAL Abdominal cramps 06/02/18 20:34 07/02/18 20:33 Amlodipine Besylate (Norvasc) 5 mg BID ORAL 06/03/18 09:00 06/28/18 08:59 06/08/18 09:09 Aspirin (ASA) 81 mg DAILY ORAL 06/03/18 09:00 06/24/18 08:59 06/08/18 09:09 Ceftriaxone Sodium 1 gm/ Dextrose 55 ml @ 110 mls/hr Q24H IVPB 06/04/18 10:00 06/11/18 09:59 06/08/18 09:18 Chlorhexidine Gluconate (Leora-Hex 2%) 1 applic DAILY@2000 TOPIC 06/03/18 20:00 06/24/18 19:59 06/07/18 20:12 Dextrose (Dextrose 50%) 25 ml Q30M PRN IV Hypoglycemia 06/02/18 20:45 06/13/18 10:14 Dextrose (Dextrose 50%) 50 ml Q30M PRN IV Hypoglycemia 06/02/18 20:45 06/13/18 10:14 Enoxaparin Sodium (Lovenox) 80 mg Q24H SUBQ 06/04/18 09:00 07/03/18 08:59 06/08/18 09:16 Haloperidol Lactate (Haldol) 5 mg Q6H PRN IM Agitation 06/02/18 20:33 07/02/18 20:32 06/07/18 05:06 Hydralazine HCl (Apresoline) 25 mg Q6HR ORAL 06/03/18 00:00 07/02/18 00:00 06/08/18 05:35 Insulin Aspart (NovoLOG) BEFORE MEALS AND HS SUBQ 06/02/18 21:00 06/13/18 11:29 06/08/18 06:04 Lorazepam (Ativan) 1 mg Q6H PRN ORAL For Anxiety 06/02/18 20:34 06/09/18 20:33 06/08/18 01:11 Magnesium Hydroxide (Mom) 30 ml DAILYPRN PRN ORAL Constipation 06/02/18 20:34 07/02/18 20:33 Metoprolol Tartrate (Lopressor) 5 mg Q2H PRN IVP For High Blood Pressure 06/02/18 21:00 06/23/18 16:59 Metoprolol Tartrate (Lopressor) 50 mg Q12HR ORAL 06/02/18 21:00 06/26/18 20:59 06/08/18 09:09 Metronidazole (Flagyl) 250 mg Q8HR ORAL 06/07/18 12:30 06/14/18 12:29 06/08/18 05:34 Olanzapine (ZyPREXA) 2.5 mg BEDTIME ORAL 06/02/18 21:00 07/01/18 20:59 06/07/18 20:43 Pantoprazole (Protonix) 40 mg ACBREAKFAST ORAL 06/03/18 06:30 06/26/18 06:29 06/08/18 06:02 Khadra Melendez MD Jun 08, 2018 10:48"
--- NOTE | 2018-06-08 11:04 | GI Progress Note ---
Assessment/Plan Problems: (1) Pancreatitis ICD Codes: K85.90 - Acute pancreatitis without necrosis or infection, unspecified SNOMED: 24330181 Qualifiers: Qualified Codes: K85.90 - Acute pancreatitis without necrosis or infection, unspecified (2) DKA (diabetic ketoacidosis) ICD Codes: E13.10 - Other specified diabetes mellitus with ketoacidosis without coma SNOMED: 983291958, 86319138 Qualifiers: Qualified Codes: E10.10 - Type 1 diabetes mellitus with ketoacidosis without coma (3) Diabetes ICD Codes: E11.9 - Type 2 diabetes mellitus without complications SNOMED: 99825679 Status: stable Status Narrative Discussed with Dr. Benito. Assessment/Plan Status post EUS summary of findings 1. Pancreatitis, most probably acute, without any pancreatic duct dilatation or mass. 2. No evidence of any common bile duct dilatation was seen with common bile duct stone. 3. Gallbladder wall thickening, nonspecific. 4. 1 cm kristina hepatis lymph node, nonspecific. Elevated lipase levels, downtrending RECOMMENDATIONS: follow-up swallow evaluation, needs video swallow study >> PEG if necessary No need for ERCP Pain management Trend lipase Zofran as needed venofer repeat stool ob cbc in am The patient was seen and examined at bedside and all new and available data was reviewed in the patients chart. I agree with the above findings, impression and plan. (Patient seen earlier today. Signature stamp does not reflect patient encounter time.). - Neeraj Benito MD Subjective Subjective denies any abdominal pain Tolerating diet Objective Last 24 Hour Vital Signs Date Time Temp Pulse Resp B/P (MAP) Pulse Ox O2 Delivery O2 Flow Rate FiO2 06/08/18 09:09 89 136/70 06/08/18 09:09 89 136/70 06/08/18 09:00 Nasal Cannula 4.0 06/08/18 08:55 89 24 99 Facial 50 06/08/18 08:00 98.0 97 22 139/57 (84) 92 06/08/18 07:45 Nasal Cannula 4.0 36 06/08/18 07:45 90 22 Nasal Cannula 36 06/08/18 07:44 95 Nasal Cannula 4.0 36 06/08/18 05:35 142/71 06/08/18 05:30 92 28 93 Facial 50 06/08/18 04:00 79 06/08/18 04:00 98.1 83 21 136/74 (94) 97 06/08/18 00:31 135/59 06/08/18 00:00 98.1 77 20 135/59 (84) 96 06/08/18 00:00 77 06/07/18 21:00 Nasal Cannula 4.0 06/07/18 20:44 71 131/55 06/07/18 20:00 80 06/07/18 20:00 97.9 80 18 131/55 (80) 98 06/07/18 19:01 130/63 06/07/18 19:01 65 130/63 06/07/18 18:45 Bi-pap 50 06/07/18 18:45 88 20 97 Facial 50 06/07/18 18:45 88 22 Bi-pap 50 06/07/18 18:45 97 Bi-pap 50 06/07/18 16:00 97.9 65 22 130/63 (85) 97 06/07/18 15:46 62 06/07/18 12:46 132/60 06/07/18 12:00 98.1 77 22 132/60 (84) 94 06/07/18 11:55 83 06/07/18 11:32 81 18 99 Facial 50 Intake and Output 06/07/18 06/08/18 19:00 07:00 Intake Total 120 ml Balance 120 ml Intake Oral 120 ml # Voids 2 2 # Bowel Movements 1 Laboratory Tests Test 06/08/18 04:45 06/08/18 05:00 White Blood Count 16.5 K/UL (4.8-10.8) H Red Blood Count 3.26 M/UL (4.20-5.40) L Hemoglobin 9.4 G/DL (12.0-16.0) L Hematocrit 28.8 % (37.0-47.0) L Mean Corpuscular Volume 88 FL (80-99) Mean Corpuscular Hemoglobin 28.8 PG (27.0-31.0) Mean Corpuscular Hemoglobin Concent 32.6 G/DL (32.0-36.0) Red Cell Distribution Width 20.9 % (11.6-14.8) H Platelet Count 245 K/UL (150-450) Mean Platelet Volume 7.3 FL (6.5-10.1) Neutrophils (%) (Auto) 84.7 % (45.0-75.0) H Lymphocytes (%) (Auto) 5.7 % (20.0-45.0) L Monocytes (%) (Auto) 7.7 % (1.0-10.0) Eosinophils (%) (Auto) 0.6 % (0.0-3.0) Basophils (%) (Auto) 1.3 % (0.0-2.0) Sodium Level 145 MMOL/L (136-145) Potassium Level 3.7 MMOL/L (3.5-5.1) Chloride Level 109 MMOL/L (98-107) H Carbon Dioxide Level 24 MMOL/L (21-32) Anion Gap 12 mmol/L (5-15) Blood Urea Nitrogen 27 mg/dL (7-18) H Creatinine 1.8 MG/DL (0.55-1.30) H Estimat Glomerular Filtration Rate 27.8 mL/min (>60) Glucose Level 207 MG/DL (74-106) H Calcium Level 8.1 MG/DL (8.5-10.1) L Stool Occult Blood Negative (NEGATIVE) Height (Feet): 4 Height (Inches): 10.00 Weight (Pounds): 180 General Appearance: WD/WN, no apparent distress, alert Cardiovascular: normal rate Respiratory/Chest: normal breath sounds, no respiratory distress Abdominal Exam: normal bowel sounds, non tender, soft Extremities: normal range of motion, non-tender Ros Berry NP Jun 08, 2018 11:04
--- NOTE | 2018-06-08 12:52 | NUR ---
ST NOTE: SWALLOW STATUS: SPOKE TO KEVIN BLACK RE:PT'S CONDITIONS. PER RN, PT'S OVERALL CONDITIONS SEEMS DECLINING. PT SEEN AT BEDSIDE IN AM. REDUCED ALERTNESS, AND DID NOT FOLLOW DIRECTIONS, UNABLE GIVE ANY PO TRIALS OR TAKE PT FOR VIDEOSWALLOW STUDY AT THIS TIME. BASED ON PT'S CURRENT CONDITIONS, LONG-TERM NONORAL FEEDING MEANS IS RECOMMENDED TO MEET NUTRITIONS AND HYDRATION NEEDS. AND VIDEOSWALLOW STUDY WHEN PT'S OVERALL CONDITIONS IMPROVES. D/W KEVIN BLACK.
--- NOTE | 2018-06-08 12:55 | General Progress Note ---
Assessment/Plan Problem List: (1) Acute metabolic encephalopathy ICD Codes: G93.41 - Metabolic encephalopathy SNOMED: 76223604, [id number] Assessment/Plan Zyprexa 2.5mg po qhs Haldol prn limit using benzos may increase risk of aspiration restraints. Subjective Neurologic/Psychiatric: Reports: anxiety Allergies: Coded Allergies: SHELLFISH DERIVED (Verified Allergy, Unknown, swelling and itchiness, 05/14) Subjective less agitated calmer less confused Objective Last 24 Hour Vital Signs Date Time Temp Pulse Resp B/P (MAP) Pulse Ox O2 Delivery O2 Flow Rate FiO2 06/08/18 12:43 136/70 06/08/18 09:09 89 136/70 06/08/18 09:09 89 136/70 06/08/18 09:00 Nasal Cannula 4.0 06/08/18 08:55 89 24 99 Facial 50 06/08/18 08:00 98.0 97 22 139/57 (84) 92 06/08/18 07:45 Nasal Cannula 4.0 36 06/08/18 07:45 90 22 Nasal Cannula 36 06/08/18 07:44 95 Nasal Cannula 4.0 36 06/08/18 05:35 142/71 06/08/18 05:30 92 28 93 Facial 50 06/08/18 04:00 79 06/08/18 04:00 98.1 83 21 136/74 (94) 97 06/08/18 00:31 135/59 06/08/18 00:00 98.1 77 20 135/59 (84) 96 06/08/18 00:00 77 06/07/18 21:00 Nasal Cannula 4.0 06/07/18 20:44 71 131/55 06/07/18 20:00 80 06/07/18 20:00 97.9 80 18 131/55 (80) 98 06/07/18 19:01 130/63 06/07/18 19:01 65 130/63 06/07/18 18:45 Bi-pap 50 06/07/18 18:45 88 20 97 Facial 50 06/07/18 18:45 88 22 Bi-pap 50 06/07/18 18:45 97 Bi-pap 50 06/07/18 16:00 97.9 65 22 130/63 (85) 97 06/07/18 15:46 62 Intake and Output 06/07/18 06/08/18 19:00 07:00 Intake Total 120 ml Balance 120 ml Intake Oral 120 ml # Voids 2 2 # Bowel Movements 1 Laboratory Tests 06/08/18 04:45: White Blood Count 16.5H, Red Blood Count 3.26L, Hemoglobin 9.4L, Hematocrit 28.8L, Mean Corpuscular Volume 88, Mean Corpuscular Hemoglobin 28.8, Mean Corpuscular Hemoglobin Concent 32.6, Red Cell Distribution Width 20.9H, Platelet Count 245, Mean Platelet Volume 7.3, Neutrophils (%) (Auto) 84.7H, Lymphocytes (%) (Auto) 5.7L, Monocytes (%) (Auto) 7.7, Eosinophils (%) (Auto) 0.6, Basophils (%) (Auto) 1.3, Sodium Level 145, Potassium Level 3.7, Chloride Level 109H, Carbon Dioxide Level 24, Anion Gap 12, Blood Urea Nitrogen 27H, Creatinine 1.8H, Estimat Glomerular Filtration Rate 27.8, Glucose Level 207H, Calcium Level 8.1L 06/08/18 05:00: Stool Occult Blood Negative Height (Feet): 4 Height (Inches): 10.00 Weight (Pounds): 180 Lynne Crane MD Jun 08, 2018 12:55
--- NOTE | 2018-06-08 13:10 | NUR ---
NURSE NOTES: dr olmstead made aware of the patients changed in condition. ordered to transfer patient to icu. ordred stat xray and ABG. awaits bed assignment right now.
--- NOTE | 2018-06-08 13:25 | NUR ---
RADIOLOGY DEPT CHEST X-RAY DONE.-P.DYE
--- NOTE | 2018-06-08 13:27 | NUR ---
NURSE NOTES: per RT Shawn, patient is ok for now. keep ker on BIPAP continously.will continue to monitor.
--- NOTE | 2018-06-08 13:35 | NUR ---
RD ASSESSMENT & RECOMMENDATIONS SEE CARE ACTIVITY FOR COMPLETE ASSESSMENT DAILY ESTIMATED NEEDS: Needs based on DM, cardiac, pulmonary/ 54kg abw 25-30 kcals/kg 5979-1221 total kcals 1-1.5 g protein/kg 54-81 g total protein 25-30 mL/kg 1543-1224 total fluid mLs NUTRITION DIAGNOSIS: 1) Altered nutrition related lab values R/T diabetes, clinical condition as evidenced by A1C 11.4, increased from 8.1 in August 2017, DKA w/ adm YI=512-> 207 210 improved, elev BNP (2846), elev creat (1.8), elev LFTs, trending back down, elev lipase (>2000 -> 554 trend down). 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 CURRENT DIET:CCHO MED, RENAL/ puree w/ NTL PO DIET RECOMMENDATIONS: IF SAFE FOR PO -> Rec liberalized diet w/ poor PO + Texture per [employer] ENTERAL NUTRITION RECOMMENDATIONS: Glucerna 1.2 @ 50ml/hr x 24 hrs to provide 1200ml, 1440kcal, 72g prot, 966ml free water * IF TF INDICATED AND PART OF POC-> rec to obtain GI access, initiate Glucerna 1.2 @ 10ml/hr x 6hrs * Advance 10ml q 4-6 hrs as tolerated to goal rate. * HOB over 30 degrees/ water flush per MD ADDITIONAL RECOMMENDATIONS: 1) RE-calibrated bed wt for accurate CBW 2) Monitor POC -> PO VS TF 3) If PO continues-> monitor PO acceptance and tolerance -> rec liberalized diet of regular w/ poor PO intake 4) Consider long acting insulin for improved BG control . .
[2018-06-08] MEDS ORDERED: metroNIDAZOLE 500mg tab ORAL SCH (14:00)
--- NOTE | 2018-06-08 14:10 | NUR ---
NURSE NOTES: RECEIVED REPORT FROM KEVIN Atkinson PT TRANSFERRED FROM [facility], DUE TO INCREASED RESPIRATORY DISTRESS. PT CONNECTED TO MONITOR. PT ON NON REBREATHER 10L.VS 118/82, HR 104, RR22 SP02 100%. PITTING EDEMA + 2 OF BILATERAL FEET. PT APPEARS SOB, DIMINISHED LUNG SOUNDS, MILD WHEEZE IN UPPER LUNGS. PT PLACED O BIPAP 15/5 40% AND MILD CONFUSION. PT AWAKE, responsive to verbal stimuli. PICC line on L upper arm, double lumens, with dry and intact dressing. PURE WICK CONNECTED TO SUCTION.On P200 mattress. Bed at lowest position, call light within reach. EDUCATED PT ON USE OF CALL LIGHT, NOT TO GET OUT OF BED, BED ALARM ON AND IN LOWEST POSITION.Will continue plan of care.
--- NOTE | 2018-06-08 14:16 | NUR ---
NURSE NOTES:WOUND CARE FOLLOW-UP NOTES:Pt's wounds have resolved.Fungal dermatitis abd folds, groin,medial /posterior aspect of thighs and buttocks resolved.Skin dryness with darker skin tone without erythema noted.Partial thickness wounds resolved. Both heels are pink and easily blanchable. No new skin concerns noted. Pt has an APM/MATT mattress overlay on her bed .Observed positioned with pillow and with both heels off-loaded with pillow. Recommendations:Continue current wound care orders and wound prevention protocols as implemented.
--- NOTE | 2018-06-08 14:39 | NUR ---
NURSE NOTES: patient was transferred to icu per ordered by dr olmstead. stat abg & cxr done prior transfer to the unit. belongings were sent home per family member except lotion and hair brush. report given to joshua fitzpatrick of icu.
--- NOTE | 2018-06-08 14:44 | Diagnostic Imaging Report ---
Indication: Shortness of breath Technique: One view of the chest Comparison: 06/06/2018 Findings: Better inspiration currently. Left arm PICC is again demonstrated. Bilateral pleural effusions and interstitial and airspace congestive change appears improved since prior exam; the apparent improvement may in part be an artifact of improved inspiration but pleural fluid at least looks definitely decreased on the right. Heart remains enlarged. Impression: Stable or improved, allowing for differences in inspiration, bilateral pleural effusions and interstitial and airspace edema, since prior exam of 06/06/2018
[2018-06-08] MEDS ORDERED: LORazepam 1mg tab ORAL PRN (15:00)
[2018-06-08] MEDS ORDERED: Haloperidol 5mg/ml Inj IM PRN (15:00)
[2018-06-08] MEDS ORDERED: Milk of Magnesia 30ml Ud ORAL PRN (15:00)
[2018-06-08] MEDS ORDERED: Metoprolol 5mg/5ml Inj IVP PRN (15:00)
--- NOTE | 2018-06-08 15:00 | NUR ---
NURSE NOTES: pt repositioned, reminded to not remove bipap. Bipap to help with breathing. pt coloration improving. work of breathing remains elevated. hob>30 for pt comfort.
--- NOTE | 2018-06-08 17:45 | General Progress Note ---
Assessment/Plan Assessment/Plan Assessment and Recs # Pancytopenia -- appears that initial hep and hiv are negative though final results to follow, liver shows no major hsm or cirrhosis, may consider meds or bone marrow process, smear reviewed, does have low albumin, has been hospitalized for some time, in and out since 04/30/18. Hiv and hepatitis panels are both negative --> query meds, review with ID, is on micafungin now, monitor counts closely --> given hgb downtrending and some nucleated reds on smear, will send off a flow cytometry --> nepogen 300mcg sq to maintain anc >1500 --> wbc trend : 1.7-->4.3-->3.1-->3.4-->7.7-->8.1--12-->15-->11-->14.6 # Anemia of chronic disease - monitor anemia panel --> hemolysis does not appear to be the case --> anemia panel reviewed and c/w acd --> hgb trend: 8.3-->9.2-->8.9-->8.7-->9-->7.7-->7 # Paroxysmal atrial fibrillation, due to CHADS-VASC score of 5, we require to keep anticoagulated, on metoprolol --> continue on apixaban # Hx of CAD, s/p CABG, ASA , atorvastatin and metoprolol. No wall motion abnormalities on Echo. LVEF ~55%. --> appreciate cards recs # Sinus tachycardia due to hypovolemia, resolved. # DKA, resolved. --> continue monitor # DM, non-compliant with medications. # Hx of HTN, controlled with metoprolol. # pancreatitis -- appreciate gi recs # increased LFT The timing of this note does not necessarily reflect the time of the patient was seen. Greatly appreciate consultation! Subjective Constitutional: Denies: no symptoms, chills, diaphoresis, fever, malaise, weakness, other HEENT: Denies: no symptoms, eye pain, blurred vision, tearing, double vision, ear pain, ear discharge, nose pain, nose congestion, throat pain, throat swelling, mouth pain, mouth swelling, other Cardiovascular: Denies: no symptoms, chest pain, edema, irregular heart rate, lightheadedness, palpitations, syncope, other Respiratory: Denies: no symptoms, cough, orthopnea, shortness of breath, SOB with excertion, SOB at rest, sputum, stridor, wheezing, other Genitourinary: Denies: no symptoms, burning, discharge, frequency, flank pain, hematuria, incontinence, pain, urgency, other Neurologic/Psychiatric: Denies: no symptoms, anxiety, depressed, emotional problems, headache, numbness, paresthesia, pre-existing deficit, seizure, tingling, tremors, weakness, other Endocrine: Denies: no symptoms, excessive sweating, flushing, intolerance to cold, intolerance to heat, increased hunger, increased thirst, increased urine, unexplained weight gain, unexplained weight loss, other Allergies: Coded Allergies: SHELLFISH DERIVED (Verified Allergy, Unknown, swelling and itchiness, 05/14) Subjective 05/18: Pt is awake and comfortable, no events, leukopenia improved, wbc 4.3, plt 151 05/19: seen by bedside, awake, comfortable, plt 122 05/20: Pt is awake and comfortable, no events 05/21: Pt is seen in the room, resting in bed, no fevers or chills, wbc 8.7, plt 117 2: Pt is resting in bed, awake, comfortable, no fevers or chills, no acute distress. 05/24: EGD and EUS done today, has no gallbladder stones, only pancreatitis, no events 05/25: no events, dermatitis has improved, off loading of heels, pancreatitis and dka better 05/26: Pt is awake, comfortable, no acute events overnight, hgb 8.6 05/27: seen by bedside, awake, comfortable, no events 05/28: resting in bed, awake, comfortable, no fevers or chills, no acute distress , No need for ERCP per GI, 05/31: Pt is awake and comfortable, no events 06/01: awake, comfortable, denies acute distress. 06/02: seen by bedside, awake, comfortable, no acute distress. wbc 15. 06/03: no acute events, denies any abdominal pain, wbc trending down at 11 today. 06/04: awake/drowsy in bed, breathing easily on nasal cannula, denies SOB and pain at this time. 06/06: anemia cotninues to worsen, may consider a bone marrow biopsy if patient approves 06/07: hgb 9.7, not eating well, remains lethargic 06/08: hgb is stable, respiratory status is worsened, and thus was transferred to the icu Objective Last 24 Hour Vital Signs Date Time Temp Pulse Resp B/P (MAP) Pulse Ox O2 Delivery O2 Flow Rate FiO2 06/08/18 15:25 77 17 100 Facial 50 06/08/18 12:43 136/70 06/08/18 12:00 89 06/08/18 09:09 89 136/70 06/08/18 09:09 89 136/70 06/08/18 09:00 Nasal Cannula 4.0 06/08/18 08:55 89 24 99 Facial 50 06/08/18 08:00 98.0 97 22 139/57 (84) 92 06/08/18 08:00 91 06/08/18 07:45 Nasal Cannula 4.0 36 06/08/18 07:45 90 22 Nasal Cannula 36 06/08/18 07:44 95 Nasal Cannula 4.0 36 06/08/18 05:35 142/71 06/08/18 05:30 92 28 93 Facial 50 06/08/18 04:00 79 06/08/18 04:00 98.1 83 21 136/74 (94) 97 06/08/18 00:31 135/59 06/08/18 00:00 98.1 77 20 135/59 (84) 96 06/08/18 00:00 77 06/07/18 21:00 Nasal Cannula 4.0 06/07/18 20:44 71 131/55 06/07/18 20:00 80 06/07/18 20:00 97.9 80 18 131/55 (80) 98 06/07/18 19:01 130/63 06/07/18 19:01 65 130/63 06/07/18 18:45 Bi-pap 50 06/07/18 18:45 88 20 97 Facial 50 06/07/18 18:45 88 22 Bi-pap 50 06/07/18 18:45 97 Bi-pap 50 Intake and Output 06/07/18 06/08/18 19:00 07:00 Intake Total 120 ml Balance 120 ml Intake Oral 120 ml # Voids 2 2 # Bowel Movements 1 Laboratory Tests 06/08/18 04:45: White Blood Count 16.5H, Red Blood Count 3.26L, Hemoglobin 9.4L, Hematocrit 28.8L, Mean Corpuscular Volume 88, Mean Corpuscular Hemoglobin 28.8, Mean Corpuscular Hemoglobin Concent 32.6, Red Cell Distribution Width 20.9H, Platelet Count 245, Mean Platelet Volume 7.3, Neutrophils (%) (Auto) 84.7H, Lymphocytes (%) (Auto) 5.7L, Monocytes (%) (Auto) 7.7, Eosinophils (%) (Auto) 0.6, Basophils (%) (Auto) 1.3, Sodium Level 145, Potassium Level 3.7, Chloride Level 109H, Carbon Dioxide Level 24, Anion Gap 12, Blood Urea Nitrogen 27H, Creatinine 1.8H, Estimat Glomerular Filtration Rate 27.8, Glucose Level 207H, Calcium Level 8.1L 06/08/18 05:00: Stool Occult Blood Negative 06/08/18 13:15: Arterial Blood pH 7.515H, Arterial Blood Partial Pressure CO2 29.0L, Arterial Blood Partial Pressure O2 46.0*L, Arterial Blood HCO3 22.9, Arterial Blood Oxygen Saturation 84.9*L, Arterial Blood Base Excess 0.6, Marlon Test N/a Height (Feet): 4 Height (Inches): 10.00 Weight (Pounds): 180 Objective PHYSICAL EXAMINATION: GENERAL: Pleasant [place] woman, tired HEENT: Normocephalic and atraumatic. Sclerae anicteric. Oropharynx clear. NECK: Supple. CHEST: bilateral crackles and ++ nc CARDIOVASCULAR: Revealed regular rate. ABDOMEN: Soft. Good bowel sounds. There is no organomegaly or tenderness. Anterior chest and abdomen scars were as expected. EXTREMITIES: Revealed no edema. Armando Bowen MD Jun 08, 2018 17:45
--- NOTE | 2018-06-08 18:00 | NUR ---
NURSE NOTES: pt family at bedside, asking about condition, was given update on pt situation. would like to be present when MD visits in am and will try to be here in morning. bipap , continues to try to remove BIPAP. need to remind pt to keep bipap on for breathing assistance. pt requests fluids able to take oral thickener but fluid at corner of mouth and needs reminding to swallow before trying to talk. hob>30. will continue to monitor pt.
--- NOTE | 2018-06-08 19:20 | NUR ---
NURSE NOTES: Received report from WAYNE Plummer. Patient awake, responsive to verbal and external stimuli. Noted patient with shallow breathing.and Bipap off. Patient ripped of straps of Bipap. Attempted to educate patient of Bipap's importance. Patient non-compliant. Restraints initiated. PICC line on L upper arm, 2 lumens, with dry and intact dressing, both patent and intact. Dressing to be changed. On P200 mattress to prevent skin breakdown. Bed at lowest position, call light within reach. Will continue plan of care.
[2018-06-08] MEDS: Dyna-Hex 2% Top Sol 2oz TOPIC SCH (21:05)
[2018-06-08] MEDS: OLANZapine 2.5mg tab ORAL SCH (21:05)
--- NOTE | 2018-06-08 23:48 | Cardiology Progress Note ---
Assessment/Plan Assessment/Plan 1. Paroxysmal atrial fibrillation, in SR now, due to CHADS-VASC score of 5, continue enoxaparin and metoprolol. 2. Hx of CAD, s/p CABG, ASA , atorvastatin and metoprolol. No wall motion abnormalities on Echo. LVEF ~55%. 3. Sinus tachycardia, resolved, due to hypovolemia. 4. DKA, resolved. 5. DM 6. HTN, well controlled, continue amlodipine, metoprolol and hydralazine. 7. Severe pulmonary HTN. 8. MAMADOU, creatinine down to 1.8. 9. Hypokalemia, resolved, K at 4.1. Subjective Subjective Sinus rhythm at rate of 91. On bipap mask. Objective Last 24 Hour Vital Signs Date Time Temp Pulse Resp B/P (MAP) Pulse Ox O2 Delivery O2 Flow Rate FiO2 06/08/18 23:23 75 22 100 Facial 50 06/08/18 21:06 78 106/56 06/08/18 21:00 91 19 106/56 (73) 100 06/08/18 20:11 91 18 100 Facial 50 06/08/18 20:00 Bi-pap 06/08/18 20:00 105 26 83/55 (64) 98 06/08/18 19:52 Venturi Mask 4.0 30 06/08/18 19:52 97 96 4.0 30 06/08/18 19:51 96 Venturi Mask 4.0 30 06/08/18 19:50 97 20 Venturi Mask 4.0 30 06/08/18 19:00 112 26 95/61 (72) 100 06/08/18 18:00 97 23 82/60 (67) 99 101 06/08/18 17:25 95 23 100 Facial 50 06/08/18 17:00 97 24 116/66 (83) 100 97 06/08/18 16:00 97.8 97 22 115/59 (77) 100 93 06/08/18 16:00 85 06/08/18 15:25 77 17 100 Facial 50 06/08/18 12:43 136/70 06/08/18 12:00 89 06/08/18 09:09 89 136/70 06/08/18 09:09 89 136/70 06/08/18 09:00 Nasal Cannula 4.0 06/08/18 08:55 89 24 99 Facial 50 06/08/18 08:00 98.0 97 22 139/57 (84) 92 06/08/18 08:00 91 06/08/18 07:45 Nasal Cannula 4.0 36 06/08/18 07:45 90 22 Nasal Cannula 36 06/08/18 07:44 95 Nasal Cannula 4.0 36 06/08/18 05:35 142/71 06/08/18 05:30 92 28 93 Facial 50 06/08/18 04:00 79 06/08/18 04:00 98.1 83 21 136/74 (94) 97 06/08/18 00:31 135/59 06/08/18 00:00 98.1 77 20 135/59 (84) 96 06/08/18 00:00 77 Intake and Output 06/07/18 06/08/18 18:59 06:59 Intake Total 120 ml Balance 120 ml Intake Oral 120 ml # Voids 2 2 # Bowel Movements 1 2D Echo: EF55%,Mild LVH,Mod MR,Mild AR,RVSP 67 mmHg (severe PHT),Restrictive LV phy Laboratory Tests Test 06/08/18 04:45 06/08/18 05:00 06/08/18 13:15 White Blood Count 16.5 K/UL (4.8-10.8) H Red Blood Count 3.26 M/UL (4.20-5.40) L Hemoglobin 9.4 G/DL (12.0-16.0) L Hematocrit 28.8 % (37.0-47.0) L Mean Corpuscular Volume 88 FL (80-99) Mean Corpuscular Hemoglobin 28.8 PG (27.0-31.0) Mean Corpuscular Hemoglobin Concent 32.6 G/DL (32.0-36.0) Red Cell Distribution Width 20.9 % (11.6-14.8) H Platelet Count 245 K/UL (150-450) Mean Platelet Volume 7.3 FL (6.5-10.1) Neutrophils (%) (Auto) 84.7 % (45.0-75.0) H Lymphocytes (%) (Auto) 5.7 % (20.0-45.0) L Monocytes (%) (Auto) 7.7 % (1.0-10.0) Eosinophils (%) (Auto) 0.6 % (0.0-3.0) Basophils (%) (Auto) 1.3 % (0.0-2.0) Sodium Level 145 MMOL/L (136-145) Potassium Level 3.7 MMOL/L (3.5-5.1) Chloride Level 109 MMOL/L (98-107) H Carbon Dioxide Level 24 MMOL/L (21-32) Anion Gap 12 mmol/L (5-15) Blood Urea Nitrogen 27 mg/dL (7-18) H Creatinine 1.8 MG/DL (0.55-1.30) H Estimat Glomerular Filtration Rate 27.8 mL/min (>60) Glucose Level 207 MG/DL (74-106) H Calcium Level 8.1 MG/DL (8.5-10.1) L Stool Occult Blood Negative (NEGATIVE) Arterial Blood pH 7.515 (7.350-7.450) Arterial Blood Partial Pressure CO2 29.0 mmHg (35.0-45.0) L Arterial Blood Partial Pressure O2 46.0 mmHg (75.0-100.0) Arterial Blood HCO3 22.9 mmol/L (22.0-26.0) Arterial Blood Oxygen Saturation 84.9 % (95-100) *L Arterial Blood Base Excess 0.6 (-2-2) Marlon Test N/a Objective HEENT: Normocephalic, atraumatic, Pupils equally reactive to light and accommodation, EOMI. NECK: No JVD, no carotid bruit. CARDIOVASCULAR: Regular rate and rhythm. No murmurs, gallops or rubs. LUNGS: Clear to auscultation bilaterally. No crackles or Rhonchi. ABDOMEN: Soft and nontender. No organomegaly, + BS. EXTREMITIES: No cyanosis, clubbing or edema. Miller Mckeon MD Jun 08, 2018 23:48
[2018-06-08] MEDS: metroNIDAZOLE 500mg tab ORAL SCH (23:55)
[2018-06-09] VITALS (24 sets, daily range): BP systolic 93–134; BP diastolic 33–97
[2018-06-09] MEDS: NovoLOG Insulin Flexpen SUBQ SCH ×4 (05:40→21:39)
[2018-06-09] MEDS: metroNIDAZOLE 500mg tab ORAL SCH (05:40)
[2018-06-09] MEDS: HydrALAZINE 25mg tab ORAL SCH ×3 (05:40→18:00)
[2018-06-09 06:18] LABS: HEMATOCRIT 27.9 % (37.0-47.0); HEMOGLOBIN 8.6 G/DL (12.0-16.0); MEAN CORPUSCULAR VOLUME 91 FL (80-99); PLATELET COUNT 247 K/UL (150-450); RED BLOOD COUNT 3.07 M/UL (4.20-5.40); RED CELL DISTRIBUTION WIDTH 21.8 % (11.6-14.8); WHITE BLOOD COUNT 13.6 K/UL (4.8-10.8)
[2018-06-09 06:32] LABS: ANION GAP 16 mmol/L (5-15); BLOOD UREA NITROGEN 26 mg/dL (7-18); CALCIUM 8.2 MG/DL (8.5-10.1); CARBON DIOXIDE 22 MMOL/L (21-32); CHLORIDE 111 MMOL/L (98-107); CREATININE 1.6 MG/DL (0.55-1.30); POTASSIUM 4.1 MMOL/L (3.5-5.1); SODIUM 149 MMOL/L (136-145)
--- NOTE | 2018-06-09 07:17 | NUR ---
HAND-OFF: Report given to WAYNE Berry. Patient stable at hand-off.
--- NOTE | 2018-06-09 07:18 | NUR ---
NURSE NOTES: Report received from WAYNE Mayorga. Pt is alert and oriented but confused at times. On bilateral soft wrist restraints. Sinus rhythm on residential monitor. On Bi-pap 15/5, 50%. O2 sat 100%. No acute respiratory distress noted. Purewick in place draining light kira colored urine by suction. Left UA PICC line patent and asymptomatic. Bed in lowest position. Side rails up x4. Call light within reach. Will resume plan of care.
--- NOTE | 2018-06-09 07:18 | NUR ---
RESPIRATORY NOTE: PT. RECEIVED STABLE ON BIPAP 15/5 BACK UP RATE OF 18, 50% FIO2. ALARMS ON AND AUDIBLE. BILATERAL SOFT WRIST RESTRAINS SECURELY IN PLACE. PT ON FACIAL MASK. SPONGE TAPE IN PLACE. NO SIGN OF SKIN BREAKDOWN OR REDNESS NOTED AT THIS TIME. WILL CONTINUE TO MONITOR.
[2018-06-09] MEDS: Metoprolol Tartrate 50mg tab ORAL SCH ×2 (08:11→20:45)
[2018-06-09] MEDS: Aspirin Baby 81mg ORAL SCH (08:12)
[2018-06-09] MEDS: Enoxaparin 80mg Inj SUBQ SCH (08:13)
--- NOTE | 2018-06-09 09:02 | NUR ---
RESPIRATORY NOTE: FIO2 TITRATED TO 40%. CURRENT SPO2 100%. VS SELMA. RN. PETER GAONA NOTIFIED. WILL CONTINUE TO MONITOR.
--- NOTE | 2018-06-09 09:46 | NUR ---
NURSE NOTES: Fed patient breakfast 20-30%. 1:1 feeder. Pt urinated about 100cc. Bladder scan shows 77cc. Cleaned pt for leaked urine and soft brown BM. Will continue to monitor.
[2018-06-09] MEDS ORDERED: cefTRIAXone 1 GM in D5W 55 ML IVPB SCH (10:00)
--- NOTE | 2018-06-09 10:40 | Infectious Diseases Prog Note ---
"Assessment/Plan Assessment/Plan antibiotics : ceftriaxone, flagyl A 1. klebsiella | streptococcus pneumonia 2. herpes of lip s/p rx 3. diabetic ketoacidosis resolved 4. respiratory failure 5. hypertension 6. leucocytosis improving 7. renal failure improving P 1. d/c ceftriaxone, flagyl 2. start zosyn 3. sputum culture 4. will follow up cultures Subjective ROS Limited/Unobtainable: Yes Allergies: Coded Allergies: SHELLFISH DERIVED (Verified Allergy, Unknown, swelling and itchiness, 05/14) Objective Vital Signs Last 24 Hour Vital Signs Date Time Temp Pulse Resp B/P (MAP) Pulse Ox O2 Delivery O2 Flow Rate FiO2 06/09/18 09:02 83 27 100 Facial 40 06/09/18 08:12 96 132/53 06/09/18 08:11 96 132/53 06/09/18 08:00 99.4 96 27 132/53 (79) 100 06/09/18 07:18 95 24 Bi-pap 50 06/09/18 07:18 Bi-pap 50 06/09/18 07:18 95 24 100 Facial 50 06/09/18 07:18 100 Bi-pap 50 06/09/18 07:00 94 22 118/45 (69) 99 06/09/18 06:00 92 27 109/46 (67) 98 06/09/18 05:40 110/33 06/09/18 05:23 85 29 100 Facial 50 06/09/18 05:00 84 22 110/33 (58) 96 06/09/18 04:00 98.6 81 19 105/49 (67) 100 06/09/18 04:00 90 06/09/18 04:00 50 06/09/18 04:00 Bi-pap 06/09/18 03:32 80 26 99 Full Face 50 06/09/18 03:00 87 26 118/60 (79) 100 06/09/18 02:00 86 24 114/97 (103) 100 06/09/18 01:30 90 25 100 Full Face 50 06/09/18 01:00 72 18 108/93 (98) 100 06/09/18 00:00 79 06/09/18 00:00 98.5 73 18 93/81 (85) 100 06/09/18 00:00 50 06/09/18 00:00 Bi-pap 06/08/18 23:55 120/41 06/08/18 23:23 75 22 100 Facial 50 06/08/18 22:00 76 23 121/44 (69) 100 06/08/18 21:06 78 106/56 06/08/18 21:00 91 19 106/56 (73) 100 06/08/18 20:11 91 18 100 Facial 50 06/08/18 20:00 50 06/08/18 20:00 Bi-pap 06/08/18 20:00 112 06/08/18 20:00 105 26 83/55 (64) 98 06/08/18 19:52 Venturi Mask 4.0 30 06/08/18 19:52 97 96 4.0 30 06/08/18 19:51 96 Venturi Mask 4.0 30 06/08/18 19:50 97 20 Venturi Mask 4.0 30 06/08/18 19:00 112 26 95/61 (72) 100 06/08/18 18:00 97 23 82/60 (67) 99 101 06/08/18 17:25 95 23 100 Facial 50 06/08/18 17:00 97 24 116/66 (83) 100 97 06/08/18 16:00 97.8 97 22 115/59 (77) 100 93 06/08/18 16:00 85 06/08/18 15:25 77 17 100 Facial 50 06/08/18 12:43 136/70 06/08/18 12:00 89 Height (Feet): 4 Height (Inches): 10.00 Weight (Pounds): 175 HEENT: other - on bipap Respiratory/Chest: lungs clear Cardiovascular: normal rate, regular rhythm, no gallop/murmur Abdomen: soft, non tender Extremities: other - + edema Laboratory Tests Test 06/08/18 13:15 06/09/18 04:30 Arterial Blood pH 7.515 (7.350-7.450) Arterial Blood Partial Pressure CO2 29.0 mmHg (35.0-45.0) L Arterial Blood Partial Pressure O2 46.0 mmHg (75.0-100.0) Arterial Blood HCO3 22.9 mmol/L (22.0-26.0) Arterial Blood Oxygen Saturation 84.9 % (95-100) *L Arterial Blood Base Excess 0.6 (-2-2) Marlon Test N/a White Blood Count 13.6 K/UL (4.8-10.8) H Red Blood Count 3.07 M/UL (4.20-5.40) L Hemoglobin 8.6 G/DL (12.0-16.0) L Hematocrit 27.9 % (37.0-47.0) L Mean Corpuscular Volume 91 FL (80-99) Mean Corpuscular Hemoglobin 28.1 PG (27.0-31.0) Mean Corpuscular Hemoglobin Concent 31.0 G/DL (32.0-36.0) L Red Cell Distribution Width 21.8 % (11.6-14.8) H Platelet Count 247 K/UL (150-450) Mean Platelet Volume 7.0 FL (6.5-10.1) Neutrophils (%) (Auto) % (45.0-75.0) Lymphocytes (%) (Auto) % (20.0-45.0) Monocytes (%) (Auto) % (1.0-10.0) Eosinophils (%) (Auto) % (0.0-3.0) Basophils (%) (Auto) % (0.0-2.0) Differential Total Cells Counted 100 Neutrophils % (Manual) 87 % (45-75) H Lymphocytes % (Manual) 9 % (20-45) L Monocytes % (Manual) 4 % (1-10) Eosinophils % (Manual) 0 % (0-3) Basophils % (Manual) 0 % (0-2) Band Neutrophils 0 % (0-8) Platelet Estimate Adequate Platelet Morphology Normal Anisocytosis 2+ Sodium Level 149 MMOL/L (136-145) H Potassium Level 4.1 MMOL/L (3.5-5.1) Chloride Level 111 MMOL/L (98-107) H Carbon Dioxide Level 22 MMOL/L (21-32) Anion Gap 16 mmol/L (5-15) H Blood Urea Nitrogen 26 mg/dL (7-18) H Creatinine 1.6 MG/DL (0.55-1.30) H Estimat Glomerular Filtration Rate 31.8 mL/min (>60) Glucose Level 161 MG/DL (74-106) H Calcium Level 8.2 MG/DL (8.5-10.1) L Current Medications Medications (Trade) Dose Ordered Sig/Ellen Route PRN Reason Start Time Stop Time Status Last Admin Dose Admin Acetaminophen (Tylenol) 650 mg Q4H PRN ORAL Mild Pain/Temp > 100.5 06/08/18 15:00 07/02/18 14:59 Al Hydroxide/Mg Hydroxide (Mylanta) 30 ml Q6H PRN ORAL Abdominal cramps 06/08/18 15:00 07/02/18 14:59 Amlodipine Besylate (Norvasc) 5 mg BID ORAL 06/08/18 18:00 06/28/18 08:59 06/09/18 08:12 Aspirin (ASA) 81 mg DAILY ORAL 06/09/18 09:00 06/24/18 08:59 06/09/18 08:12 Ceftriaxone Sodium 1 gm/ Dextrose 55 ml @ 110 mls/hr Q24H IVPB 06/09/18 10:00 06/11/18 09:59 Chlorhexidine Gluconate (Leora-Hex 2%) 1 applic DAILY@2000 TOPIC 06/08/18 20:00 06/24/18 19:59 06/08/18 21:05 Dextrose (Dextrose 50%) 25 ml Q30M PRN IV Hypoglycemia 06/08/18 15:15 06/13/18 10:14 Dextrose (Dextrose 50%) 50 ml Q30M PRN IV Hypoglycemia 06/08/18 15:15 06/13/18 10:14 Enoxaparin Sodium (Lovenox) 80 mg Q24H SUBQ 06/09/18 09:00 07/03/18 08:59 06/09/18 08:13 Haloperidol Lactate (Haldol) 5 mg Q6H PRN IM Agitation 06/08/18 15:00 07/02/18 14:59 Hydralazine HCl (Apresoline) 25 mg Q6HR ORAL 06/08/18 18:00 07/02/18 00:00 06/09/18 05:40 Insulin Aspart (NovoLOG) BEFORE MEALS AND HS SUBQ 06/08/18 16:30 07/08/18 16:29 06/09/18 05:40 Lorazepam (Ativan) 1 mg Q6H PRN ORAL For Anxiety 06/08/18 15:00 06/09/18 14:59 Magnesium Hydroxide (Mom) 30 ml DAILYPRN PRN ORAL Constipation 06/08/18 15:00 07/02/18 14:59 Metoprolol Tartrate (Lopressor) 5 mg Q2H PRN IVP For High Blood Pressure 06/08/18 15:00 06/23/18 16:59 Metoprolol Tartrate (Lopressor) 50 mg Q12HR ORAL 06/08/18 21:00 06/26/18 20:59 06/09/18 08:11 Metronidazole (Flagyl) 500 mg Q8HR ORAL 06/08/18 22:00 06/15/18 13:59 06/09/18 05:40 Olanzapine (ZyPREXA) 2.5 mg BEDTIME ORAL 06/08/18 21:00 07/01/18 20:59 06/08/18 21:05 Pantoprazole (Protonix) 40 mg ACBREAKFAST ORAL 06/09/18 06:30 06/26/18 06:29 06/09/18 05:41 Khadra Melendez MD Jun 09, 2018 10:40"
--- NOTE | 2018-06-09 11:27 | General Progress Note ---
Assessment/Plan Problem List: (1) HTN (hypertension) ICD Codes: I10 - Essential (primary) hypertension SNOMED: 40658330 (2) Pneumonia ICD Codes: J18.9 - Pneumonia, unspecified organism SNOMED: 431270160 (3) Diabetes ICD Codes: E11.9 - Type 2 diabetes mellitus without complications SNOMED: 14664542 (4) UTI (urinary tract infection) ICD Codes: N39.0 - Urinary tract infection, site not specified SNOMED: 27988108 Qualifiers: Qualified Codes: N39.0 - Urinary tract infection, site not specified (5) Pancreatitis ICD Codes: K85.90 - Acute pancreatitis without necrosis or infection, unspecified SNOMED: 19334357 Qualifiers: Qualified Codes: K85.90 - Acute pancreatitis without necrosis or infection, unspecified (6) Gout ICD Codes: M10.9 - Gout, unspecified SNOMED: 48001811 Qualifiers: Qualified Codes: M10.9 - Gout, unspecified (7) Anemia ICD Codes: D64.9 - Anemia, unspecified SNOMED: 752789933 Assessment/Plan Assessment/Plan Status post EUS summary of findings 1. Pancreatitis, most probably acute, without any pancreatic duct dilatation or mass. 2. No evidence of any common bile duct dilatation was seen with common bile duct stone. 3. Gallbladder wall thickening, nonspecific. 4. 1 cm kristina hepatis lymph node, nonspecific. Elevated lipase levels, downtrending RECOMMENDATIONS: No need for ERCP Pain management Trend lipase Zofran as needed Follow-up labs anemia work up poor po intake but currently on BIPAP and not stable for PEG placement Subjective ROS Limited/Unobtainable: No Allergies: Coded Allergies: SHELLFISH DERIVED (Verified Allergy, Unknown, swelling and itchiness, 05/14) Subjective skin rash Objective Last 24 Hour Vital Signs Date Time Temp Pulse Resp B/P (MAP) Pulse Ox O2 Delivery O2 Flow Rate FiO2 06/09/18 09:02 83 27 100 Facial 40 06/09/18 08:12 96 132/53 06/09/18 08:11 96 132/53 06/09/18 08:00 99.4 96 27 132/53 (79) 100 06/09/18 07:18 95 24 Bi-pap 50 06/09/18 07:18 Bi-pap 50 06/09/18 07:18 95 24 100 Facial 50 06/09/18 07:18 100 Bi-pap 50 06/09/18 07:00 94 22 118/45 (69) 99 06/09/18 06:00 92 27 109/46 (67) 98 06/09/18 05:40 110/33 06/09/18 05:23 85 29 100 Facial 50 06/09/18 05:00 84 22 110/33 (58) 96 06/09/18 04:00 98.6 81 19 105/49 (67) 100 06/09/18 04:00 90 06/09/18 04:00 50 06/09/18 04:00 Bi-pap 06/09/18 03:32 80 26 99 Full Face 50 06/09/18 03:00 87 26 118/60 (79) 100 06/09/18 02:00 86 24 114/97 (103) 100 06/09/18 01:30 90 25 100 Full Face 50 06/09/18 01:00 72 18 108/93 (98) 100 06/09/18 00:00 79 06/09/18 00:00 98.5 73 18 93/81 (85) 100 06/09/18 00:00 50 06/09/18 00:00 Bi-pap 06/08/18 23:55 120/41 06/08/18 23:23 75 22 100 Facial 50 06/08/18 22:00 76 23 121/44 (69) 100 06/08/18 21:06 78 106/56 06/08/18 21:00 91 19 106/56 (73) 100 06/08/18 20:11 91 18 100 Facial 50 06/08/18 20:00 50 06/08/18 20:00 Bi-pap 06/08/18 20:00 112 06/08/18 20:00 105 26 83/55 (64) 98 06/08/18 19:52 Venturi Mask 4.0 30 06/08/18 19:52 97 96 4.0 30 06/08/18 19:51 96 Venturi Mask 4.0 30 06/08/18 19:50 97 20 Venturi Mask 4.0 30 06/08/18 19:00 112 26 95/61 (72) 100 06/08/18 18:00 97 23 82/60 (67) 99 101 06/08/18 17:25 95 23 100 Facial 50 06/08/18 17:00 97 24 116/66 (83) 100 97 06/08/18 16:00 97.8 97 22 115/59 (77) 100 93 06/08/18 16:00 85 06/08/18 15:25 77 17 100 Facial 50 06/08/18 12:43 136/70 06/08/18 12:00 89 Intake and Output 06/08/18 06/09/18 19:00 07:00 Intake Total 50 ml 90 ml Output Total 20 ml 100 ml Balance 30 ml -10 ml Intake Oral 50 ml Other 90 ml Output Urine Total 20 ml 100 ml Laboratory Tests 06/08/18 13:15: Arterial Blood pH 7.515H, Arterial Blood Partial Pressure CO2 29.0L, Arterial Blood Partial Pressure O2 46.0*L, Arterial Blood HCO3 22.9, Arterial Blood Oxygen Saturation 84.9*L, Arterial Blood Base Excess 0.6, Marlon Test N/a 06/09/18 04:30: White Blood Count 13.6H, Red Blood Count 3.07L, Hemoglobin 8.6L, Hematocrit 27.9L, Mean Corpuscular Volume 91, Mean Corpuscular Hemoglobin 28.1, Mean Corpuscular Hemoglobin Concent 31.0L, Red Cell Distribution Width 21.8H, Platelet Count 247, Mean Platelet Volume 7.0, Neutrophils (%) (Auto) , Lymphocytes (%) (Auto) , Monocytes (%) (Auto) , Eosinophils (%) (Auto) , Basophils (%) (Auto) , Differential Total Cells Counted 100, Neutrophils % ( Manual) 87H, Lymphocytes % (Manual) 9L, Monocytes % (Manual) 4, Eosinophils % ( Manual) 0, Basophils % (Manual) 0, Band Neutrophils 0, Platelet Estimate Adequate, Platelet Morphology Normal, Anisocytosis 2+, Sodium Level 149H, Potassium Level 4.1, Chloride Level 111H, Carbon Dioxide Level 22, Anion Gap 16H , Blood Urea Nitrogen 26H, Creatinine 1.6H, Estimat Glomerular Filtration Rate 31.8, Glucose Level 161H, Calcium Level 8.2L Height (Feet): 4 Height (Inches): 10.00 Weight (Pounds): 175 General Appearance: lethargic EENT: normal ENT inspection Neck: normal alignment Cardiovascular: tachycardia Respiratory/Chest: decreased breath sounds Abdomen: normal bowel sounds, non tender, soft Extremities: non-tender Neeraj Benito MD Jun 09, 2018 11:27
--- NOTE | 2018-06-09 12:00 | NUR ---
NURSE NOTES: Daughter at bedside. Pt is awake and on Bi-pap FiO2 35%. O2 sat 98%. No acute respiratory distress noted. Will continue to monitor.
--- NOTE | 2018-06-09 13:23 | NUR ---
ST NOTE: PT TRANSFERRED TO HIGHER CARE UNIT(ICU). PLEASE RE-ORDER ST EVAL AND VIDEOSWALLOW STUDY WHEN PT IS MEDICALLY STABLE.
--- NOTE | 2018-06-09 14:16 | NUR ---
NURSE NOTES: Fed the patient with lunch 25%. Daughter at bedside. HOB elevated high for feeding. Bi-pap back on. Will continue to monitor.
[2018-06-09] MEDS: Piperacillin/Tazobactam 3.375 GM in D5W 110 ML IVPB SCH ×2 (14:32→21:43)
--- NOTE | 2018-06-09 16:24 | NUR ---
NURSE NOTES: Order for Miconazole cream from Dr Melendez received, noted, and carried out.
--- NOTE | 2018-06-09 17:00 | NUR ---
NURSE NOTES: Order for NG tube from Dr Lew received, noted, and carried out. Daughter at bedside. Will insert NG tube after dinner and oral care. Pt is on Bi-pap 15/5, FiO2 35%.
--- NOTE | 2018-06-09 17:15 | NUR ---
RESPIRATORY NOTE: PT. REMAINED STABLE ON BIPAP WITH CURRENT SETTING. BIPAP CIRCUIT SECURE AND OUT OF THE WAY. PT REMAINS ON SOFT BILATERAL WRIST RESTRAINS WHICH ARE SECURELY FASTENED. FAMILY AT BEDSIDE. NO S/S OF RESPIRATORY DISTRESS NOTED AT THIS TIME.
--- NOTE | 2018-06-09 17:21 | NUR ---
NURSE NOTES: Dr Landry here to see the patient. Updated him with pt's current condition. Doctor spoke with daughter at bedside. Orders received, noted, and carried out. Will endorse to insert NGT tomorrow AM as per doctor's order.
--- NOTE | 2018-06-09 18:19 | NUR ---
CASE MANAGEMENT: REVIEW SI: PANCREATITIS . ANEMIA EGD AND EUS 05/24 T 99.4 HR 87 RR 24 BP 96/54 SAT 99% BIPAP FIO2 40 WBC 13.6 H/H 8.6/27.9 NA 149 BUN 26 CR 1.6 IS: LASIX IV X1 ZOSYN IV Q8HR ASA PO QD LOVENOX SQ Q24HR INSULIN SQ AC/HS ICU STATUS DCP: PATIENT IS FROM HOME
[2018-06-09] MEDS: Miconazole 2% Cream 30gm TOPIC SCH (18:39)
--- NOTE | 2018-06-09 19:16 | NUR ---
RESPIRATORY NOTE: PT. RECEIVED STABLE ON BIPAP 15/5 BACK UP RATE OF 18, 35% FIO2. ALARMS ON AND AUDIBLE. BILATERAL SOFT WRIST RESTRAINS SECURELY IN PLACE. PT ON FULL FACE MASK. SPONGE TAPE IN PLACE. NO SIGN OF SKIN BREAKDOWN OR REDNESS NOTED AT THIS TIME. WILL CONTINUE TO MONITOR.
--- NOTE | 2018-06-09 19:54 | NUR ---
HAND-OFF: Report given to Nevin Chappell RN.
--- NOTE | 2018-06-09 19:55 | NUR ---
NURSE NOTES: Report received from WAYNE Emery. Pt is alert and oriented but confused at times. On bilateral soft wrist restraints. Sinus rhythm on cardiac technologist. On Bi-pap 15/5, 50%. O2 sat 100%. No acute respiratory distress noted. Purewick in place draining light kira colored urine by suction. Left UA PICC line patent and asymptomatic. Bed in lowest position. Side rails up x4. Call light within reach. Will resume plan of care.
--- NOTE | 2018-06-09 20:02 | General Progress Note ---
Assessment/Plan Assessment/Plan Assessment and Recs # Pancytopenia -- appears that initial hep and hiv are negative though final results to follow, liver shows no major hsm or cirrhosis, may consider meds or bone marrow process, smear reviewed, does have low albumin, has been hospitalized for some time, in and out since 04/30/18. Hiv and hepatitis panels are both negative --> query meds, review with ID, is on micafungin now, monitor counts closely --> given hgb downtrending and some nucleated reds on smear, will send off a flow cytometry --> nepogen 300mcg sq to maintain anc >1500 --> wbc trend : 1.7-->4.3-->3.1-->3.4-->7.7-->8.1--12-->15-->11-->14.6 # Anemia of chronic disease - monitor anemia panel --> hemolysis does not appear to be the case --> anemia panel reviewed and c/w acd --> hgb trend: 8.3-->9.2-->8.9-->8.7-->9-->7.7-->7 # Paroxysmal atrial fibrillation, due to CHADS-VASC score of 5, we require to keep anticoagulated, on metoprolol --> continue on apixaban # Hx of CAD, s/p CABG, ASA , atorvastatin and metoprolol. No wall motion abnormalities on Echo. LVEF ~55%. --> appreciate cards recs # Sinus tachycardia due to hypovolemia, resolved. # DKA, resolved. --> continue monitor # DM, non-compliant with medications. # Hx of HTN, controlled with metoprolol. # pancreatitis -- appreciate gi recs # increased LFT The timing of this note does not necessarily reflect the time of the patient was seen. Greatly appreciate consultation! Subjective Allergies: Coded Allergies: SHELLFISH DERIVED (Verified Allergy, Unknown, swelling and itchiness, 05/14) Subjective 05/18: Pt is awake and comfortable, no events, leukopenia improved, wbc 4.3, plt 151 05/19: seen by bedside, awake, comfortable, plt 122 05/20: Pt is awake and comfortable, no events 05/21: Pt is seen in the room, resting in bed, no fevers or chills, wbc 8.7, plt 117 2/: Pt is resting in bed, awake, comfortable, no fevers or chills, no acute distress. 2: EGD and EUS done today, has no gallbladder stones, only pancreatitis, no events 2: no events, dermatitis has improved, off loading of heels, pancreatitis and dka better 2: Pt is awake, comfortable, no acute events overnight, hgb 8.6 05/27: seen by bedside, awake, comfortable, no events 05/28: resting in bed, awake, comfortable, no fevers or chills, no acute distress , No need for ERCP per GI, 05/31: Pt is awake and comfortable, no events 06/01: awake, comfortable, denies acute distress. 06/02: seen by bedside, awake, comfortable, no acute distress. wbc 15. 2: no acute events, denies any abdominal pain, wbc trending down at 11 today. 06/04: awake/drowsy in bed, breathing easily on nasal cannula, denies SOB and pain at this time. 06/06: anemia cotninues to worsen, may consider a bone marrow biopsy if patient approves 06/07: hgb 9.7, not eating well, remains lethargic 06/08: hgb is stable, respiratory status is worsened, and thus was transferred to the icu 06/09: seen by bedside,awake, comfortable, plan to insert NGT samanta Objective Last 24 Hour Vital Signs Date Time Temp Pulse Resp B/P (MAP) Pulse Ox O2 Delivery O2 Flow Rate FiO2 06/09/18 18:00 82 21 125/44 (71) 100 06/09/18 17:15 84 22 94 Full Face 35 06/09/18 17:00 80 18 121/55 (77) 100 06/09/18 16:00 80 19 119/52 (74) 100 06/09/18 15:44 73 06/09/18 15:23 73 23 100 Full Face 35 06/09/18 15:00 81 20 120/42 (68) 100 06/09/18 14:00 87 20 127/42 (70) 100 06/09/18 13:00 89 24 134/64 (87) 100 06/09/18 12:43 72 19 99 Full Face 35 06/09/18 12:43 75 20 96 06/09/18 12:03 73 06/09/18 12:00 99.4 71 19 96/54 (68) 100 06/09/18 12:00 96/54 06/09/18 11:08 68 24 100 Full Face 35 06/09/18 11:00 74 23 115/50 (71) 100 06/09/18 10:00 73 18 105/38 (60) 99 06/09/18 09:02 83 27 100 Facial 40 06/09/18 09:00 85 25 108/51 (70) 100 06/09/18 08:12 96 132/53 06/09/18 08:11 96 132/53 06/09/18 08:00 99.4 96 27 132/53 (79) 100 06/09/18 07:24 98 06/09/18 07:18 95 24 Bi-pap 50 06/09/18 07:18 Bi-pap 50 06/09/18 07:18 95 24 100 Facial 50 06/09/18 07:18 100 Bi-pap 50 06/09/18 07:00 94 22 118/45 (69) 99 06/09/18 06:00 92 27 109/46 (67) 98 06/09/18 05:40 110/33 06/09/18 05:23 85 29 100 Facial 50 06/09/18 05:00 84 22 110/33 (58) 96 06/09/18 04:00 98.6 81 19 105/49 (67) 100 06/09/18 04:00 90 06/09/18 04:00 50 06/09/18 04:00 Bi-pap 06/09/18 03:32 80 26 99 Full Face 50 06/09/18 03:00 87 26 118/60 (79) 100 06/09/18 02:00 86 24 114/97 (103) 100 06/09/18 01:30 90 25 100 Full Face 50 06/09/18 01:00 72 18 108/93 (98) 100 06/09/18 00:00 79 06/09/18 00:00 98.5 73 18 93/81 (85) 100 06/09/18 00:00 50 06/09/18 00:00 Bi-pap 06/08/18 23:55 120/41 06/08/18 23:23 75 22 100 Facial 50 06/08/18 22:00 76 23 121/44 (69) 100 06/08/18 21:06 78 106/56 06/08/18 21:00 91 19 106/56 (73) 100 06/08/18 20:11 91 18 100 Facial 50 Intake and Output 06/08/18 06/09/18 19:00 07:00 Intake Total 50 ml 90 ml Output Total 20 ml 100 ml Balance 30 ml -10 ml Intake Oral 50 ml Other 90 ml Output Urine Total 20 ml 100 ml Laboratory Tests 06/09/18 04:30: White Blood Count 13.6H, Red Blood Count 3.07L, Hemoglobin 8.6L, Hematocrit 27.9L, Mean Corpuscular Volume 91, Mean Corpuscular Hemoglobin 28.1, Mean Corpuscular Hemoglobin Concent 31.0L, Red Cell Distribution Width 21.8H, Platelet Count 247, Mean Platelet Volume 7.0, Neutrophils (%) (Auto) , Lymphocytes (%) (Auto) , Monocytes (%) (Auto) , Eosinophils (%) (Auto) , Basophils (%) (Auto) , Differential Total Cells Counted 100, Neutrophils % ( Manual) 87H, Lymphocytes % (Manual) 9L, Monocytes % (Manual) 4, Eosinophils % ( Manual) 0, Basophils % (Manual) 0, Band Neutrophils 0, Platelet Estimate Adequate, Platelet Morphology Normal, Anisocytosis 2+, Sodium Level 149H, Potassium Level 4.1, Chloride Level 111H, Carbon Dioxide Level 22, Anion Gap 16H , Blood Urea Nitrogen 26H, Creatinine 1.6H, Estimat Glomerular Filtration Rate 31.8, Glucose Level 161H, Calcium Level 8.2L Height (Feet): 4 Height (Inches): 10.00 Weight (Pounds): 175 Objective PHYSICAL EXAMINATION: GENERAL: Pleasant [place] woman, tired HEENT: Normocephalic and atraumatic. Sclerae anicteric. Oropharynx clear. NECK: Supple. CHEST: bilateral crackles and ++ nc CARDIOVASCULAR: Revealed regular rate. ABDOMEN: Soft. Good bowel sounds. There is no organomegaly or tenderness. Anterior chest and abdomen scars were as expected. EXTREMITIES: Revealed no edema. Armando Bowen MD Jun 09, 2018 20:02
[2018-06-09] MEDS: OLANZapine 2.5mg tab ORAL SCH (20:44)
[2018-06-09] MEDS: Dyna-Hex 2% Top Sol 2oz TOPIC SCH (20:44)
--- NOTE | 2018-06-09 21:25 | Pulmonolgy Critical Care Note ---
Critical Care - Asmt/Plan Assessment/Plan: Pulmonary CCM Progress Note Assessment/Plan Impression Diabetic ketoacidosis TF to ICU as short of breath, on BiPAP Anemia Transaminitis of unclear etiology Severe protein calorie malnutrition Evidence of pancreatitis, better Acute renal failure, improved Hyperglycemia Diabetes Hyponatremia Metabolic acidosis Hypercholesterolemia fever oral ulcers afib with RVR leukopenia pancreatitis CVA pleural effusions d/w family about GT- await decision needs nutrition on antibiotics with + cultures; per ID on lovenox ? eliquis 3rd spacing at present, diurese PRN care noted; will need rehab with current status still very weak swallow evaluation pending impression, plan, and exam edited and reviewed in detail care discussed with RN Subjective Allergies: Coded Allergies: SHELLFISH DERIVED (Verified Allergy, Unknown, swelling and itchiness, 05/14) Subjective care noted not eating well NAD still lethargic Objective Vital Signs Noted Laboratory Tests 06/08/18 04:45: White Blood Count 16.5H, Red Blood Count 3.26L, Hemoglobin 9.4L, Hematocrit 28.8L, Mean Corpuscular Volume 88, Mean Corpuscular Hemoglobin 28.8, Mean Corpuscular Hemoglobin Concent 32.6, Red Cell Distribution Width 20.9H, Platelet Count 245, Mean Platelet Volume 7.3, Neutrophils (%) (Auto) 84.7H, Lymphocytes (%) (Auto) 5.7L, Monocytes (%) (Auto) 7.7, Eosinophils (%) (Auto) 0.6, Basophils (%) (Auto) 1.3, Sodium Level 145, Potassium Level 3.7, Chloride Level 109H, Carbon Dioxide Level 24, Anion Gap 12, Blood Urea Nitrogen 27H, Creatinine 1.8H, Estimat Glomerular Filtration Rate 27.8, Glucose Level 207H, Calcium Level 8.1L 06/08/18 05:00: Stool Occult Blood Negative Height (Feet): 4 Height (Inches): 10.00 Weight (Pounds): 180 Objective WDWN lethargic clear breath sounds bilaterally without rhonchi or wheeze S1S2 RRR without MRG NABS nontender no HSM no CC, mild edema remains weak Critical Care - Objective Last 24 Hour Vital Signs Date Time Temp Pulse Resp B/P (MAP) Pulse Ox O2 Delivery O2 Flow Rate FiO2 06/09/18 20:45 79 127/66 06/09/18 18:00 82 21 125/44 (71) 100 06/09/18 17:15 84 22 94 Full Face 35 06/09/18 17:00 80 18 121/55 (77) 100 06/09/18 16:00 80 19 119/52 (74) 100 06/09/18 15:44 73 06/09/18 15:23 73 23 100 Full Face 35 06/09/18 15:00 81 20 120/42 (68) 100 06/09/18 14:00 87 20 127/42 (70) 100 06/09/18 13:00 89 24 134/64 (87) 100 06/09/18 12:43 72 19 99 Full Face 35 06/09/18 12:43 75 20 96 06/09/18 12:03 73 06/09/18 12:00 99.4 71 19 96/54 (68) 100 06/09/18 12:00 96/54 06/09/18 11:08 68 24 100 Full Face 35 06/09/18 11:00 74 23 115/50 (71) 100 06/09/18 10:00 73 18 105/38 (60) 99 06/09/18 09:02 83 27 100 Facial 40 06/09/18 09:00 85 25 108/51 (70) 100 06/09/18 08:12 96 132/53 06/09/18 08:11 96 132/53 06/09/18 08:00 99.4 96 27 132/53 (79) 100 06/09/18 07:24 98 06/09/18 07:18 95 24 Bi-pap 50 06/09/18 07:18 Bi-pap 50 06/09/18 07:18 95 24 100 Facial 50 06/09/18 07:18 100 Bi-pap 50 06/09/18 07:00 94 22 118/45 (69) 99 06/09/18 06:00 92 27 109/46 (67) 98 06/09/18 05:40 110/33 06/09/18 05:23 85 29 100 Facial 50 06/09/18 05:00 84 22 110/33 (58) 96 06/09/18 04:00 98.6 81 19 105/49 (67) 100 06/09/18 04:00 90 06/09/18 04:00 50 06/09/18 04:00 Bi-pap 06/09/18 03:32 80 26 99 Full Face 50 06/09/18 03:00 87 26 118/60 (79) 100 06/09/18 02:00 86 24 114/97 (103) 100 06/09/18 01:30 90 25 100 Full Face 50 06/09/18 01:00 72 18 108/93 (98) 100 06/09/18 00:00 79 06/09/18 00:00 98.5 73 18 93/81 (85) 100 06/09/18 00:00 50 06/09/18 00:00 Bi-pap 06/08/18 23:55 120/41 06/08/18 23:23 75 22 100 Facial 50 06/08/18 22:00 76 23 121/44 (69) 100 Accucheck: 176 Critical Care - Subjective ROS Limited/Unobtainable: No Condition: stable FI02: 35 Vent Support Mode: BiLevel Sputum Amount: None I&O: Intake and Output 06/08/18 06/09/18 19:00 07:00 Intake Total 50 ml 90 ml Output Total 20 ml 100 ml Balance 30 ml -10 ml Intake Oral 50 ml Other 90 ml Output Urine Total 20 ml 100 ml Gulshan Landry MD Jun 09, 2018 21:25
--- NOTE | 2018-06-09 22:00 | NUR ---
NURSE NOTES: Pt's resting in bed, in no acute distress. VS stable. Will continue to monitor.
--- NOTE | 2018-06-09 23:58 | Cardiology Progress Note ---
Assessment/Plan Assessment/Plan 1. Paroxysmal atrial fibrillation, in SR now, due to CHADS-VASC score of 5, continue enoxaparin and metoprolol. 2. Hx of CAD, s/p CABG, ASA , atorvastatin and metoprolol. No wall motion abnormalities on Echo. LVEF ~55%. 3. Sinus tachycardia, resolved, due to hypovolemia. 4. DKA, resolved. 5. DM 6. HTN, well controlled, continue amlodipine, metoprolol and hydralazine. 7. Severe pulmonary HTN. 8. MAMADOU, creatinine down to 1.8. 9. Hypokalemia, resolved, K at 4.1. Subjective Subjective Sinus rhythm at rate of 86. On bipap mask. Objective Last 24 Hour Vital Signs Date Time Temp Pulse Resp B/P (MAP) Pulse Ox O2 Delivery O2 Flow Rate FiO2 06/09/18 23:13 86 28 94 Facial 35 06/09/18 22:00 94 28 120/83 (95) 95 06/09/18 21:18 84 27 95 Facial 35 06/09/18 21:00 82 21 120/52 (74) 97 06/09/18 20:45 79 127/66 06/09/18 20:00 86 06/09/18 20:00 83 23 127/66 (86) 96 06/09/18 19:16 84 19 95 Full Face 35 06/09/18 19:16 95 Bi-pap 35 06/09/18 19:16 95 27 Bi-pap 35 06/09/18 19:16 Bi-pap 35 06/09/18 19:00 99.2 87 20 118/52 (74) 100 06/09/18 18:00 82 21 125/44 (71) 100 06/09/18 17:15 84 22 94 Full Face 35 06/09/18 17:00 80 18 121/55 (77) 100 06/09/18 16:00 80 19 119/52 (74) 100 06/09/18 15:44 73 06/09/18 15:23 73 23 100 Full Face 35 06/09/18 15:00 81 20 120/42 (68) 100 06/09/18 14:00 87 20 127/42 (70) 100 06/09/18 13:00 89 24 134/64 (87) 100 06/09/18 12:43 72 19 99 Full Face 35 06/09/18 12:43 75 20 96 06/09/18 12:03 73 06/09/18 12:00 99.4 71 19 96/54 (68) 100 06/09/18 12:00 96/54 06/09/18 11:08 68 24 100 Full Face 35 06/09/18 11:00 74 23 115/50 (71) 100 06/09/18 10:00 73 18 105/38 (60) 99 06/09/18 09:02 83 27 100 Facial 40 06/09/18 09:00 85 25 108/51 (70) 100 06/09/18 08:12 96 132/53 06/09/18 08:11 96 132/53 06/09/18 08:00 99.4 96 27 132/53 (79) 100 06/09/18 07:24 98 06/09/18 07:18 95 24 Bi-pap 50 06/09/18 07:18 Bi-pap 50 06/09/18 07:18 95 24 100 Facial 50 06/09/18 07:18 100 Bi-pap 50 06/09/18 07:00 94 22 118/45 (69) 99 06/09/18 06:00 92 27 109/46 (67) 98 06/09/18 05:40 110/33 06/09/18 05:23 85 29 100 Facial 50 06/09/18 05:00 84 22 110/33 (58) 96 06/09/18 04:00 98.6 81 19 105/49 (67) 100 06/09/18 04:00 90 06/09/18 04:00 50 06/09/18 04:00 Bi-pap 06/09/18 03:32 80 26 99 Full Face 50 06/09/18 03:00 87 26 118/60 (79) 100 06/09/18 02:00 86 24 114/97 (103) 100 06/09/18 01:30 90 25 100 Full Face 50 06/09/18 01:00 72 18 108/93 (98) 100 06/09/18 00:00 79 06/09/18 00:00 98.5 73 18 93/81 (85) 100 06/09/18 00:00 50 06/09/18 00:00 Bi-pap Intake and Output 06/08/18 06/09/18 19:00 07:00 Intake Total 50 ml 90 ml Output Total 20 ml 100 ml Balance 30 ml -10 ml Intake Oral 50 ml Other 90 ml Output Urine Total 20 ml 100 ml 2D Echo: EF55%,Mild LVH,Mod MR,Mild AR,RVSP 67 mmHg (severe PHT),Restrictive LV phy Laboratory Tests Test 06/09/18 04:30 White Blood Count 13.6 K/UL (4.8-10.8) H Red Blood Count 3.07 M/UL (4.20-5.40) L Hemoglobin 8.6 G/DL (12.0-16.0) L Hematocrit 27.9 % (37.0-47.0) L Mean Corpuscular Volume 91 FL (80-99) Mean Corpuscular Hemoglobin 28.1 PG (27.0-31.0) Mean Corpuscular Hemoglobin Concent 31.0 G/DL (32.0-36.0) L Red Cell Distribution Width 21.8 % (11.6-14.8) H Platelet Count 247 K/UL (150-450) Mean Platelet Volume 7.0 FL (6.5-10.1) Neutrophils (%) (Auto) % (45.0-75.0) Lymphocytes (%) (Auto) % (20.0-45.0) Monocytes (%) (Auto) % (1.0-10.0) Eosinophils (%) (Auto) % (0.0-3.0) Basophils (%) (Auto) % (0.0-2.0) Differential Total Cells Counted 100 Neutrophils % (Manual) 87 % (45-75) H Lymphocytes % (Manual) 9 % (20-45) L Monocytes % (Manual) 4 % (1-10) Eosinophils % (Manual) 0 % (0-3) Basophils % (Manual) 0 % (0-2) Band Neutrophils 0 % (0-8) Platelet Estimate Adequate Platelet Morphology Normal Anisocytosis 2+ Sodium Level 149 MMOL/L (136-145) H Potassium Level 4.1 MMOL/L (3.5-5.1) Chloride Level 111 MMOL/L (98-107) H Carbon Dioxide Level 22 MMOL/L (21-32) Anion Gap 16 mmol/L (5-15) H Blood Urea Nitrogen 26 mg/dL (7-18) H Creatinine 1.6 MG/DL (0.55-1.30) H Estimat Glomerular Filtration Rate 31.8 mL/min (>60) Glucose Level 161 MG/DL (74-106) H Calcium Level 8.2 MG/DL (8.5-10.1) L Objective HEENT: Normocephalic, atraumatic, Pupils equally reactive to light and accommodation, EOMI. NECK: No JVD, no carotid bruit. CARDIOVASCULAR: Regular rate and rhythm. No murmurs, gallops or rubs. LUNGS: Clear to auscultation bilaterally. No crackles or Rhonchi. ABDOMEN: Soft and nontender. No organomegaly, + BS. EXTREMITIES: No cyanosis, clubbing or edema. Miller Mckeon MD Jun 09, 2018 23:58
[2018-06-10] VITALS (23 sets, daily range): BP systolic 89–135; BP diastolic 38–110
--- NOTE | 2018-06-10 | NUR ---
NURSE NOTES: Pt's resting in bed, in no acute distress. VS stable. Will continue to monitor.
[2018-06-10] MEDS: HydrALAZINE 25mg tab ORAL SCH ×4 (00:49→18:00)
--- NOTE | 2018-06-10 01:01 | NUR ---
RESPIRATORY NOTE: Received pt on BiPAP 01/09, backup rate 18, 35%. Pt is on a Facial mask, skin intact, no redness/breakdowns noted. Foam tape applied on pt's nosebridge/cheeks/chin to prevent any irritations. B/S darin. diminished, nonproductive cough. BiPAP plugged into red outlet. Pt resting comfortably, no apparent distress noted. Will continue plan of care.
--- NOTE | 2018-06-10 02:00 | NUR ---
NURSE NOTES: Pt's resting in bed, in no acute distress. VS stable. Will continue to monitor.
--- NOTE | 2018-06-10 04:00 | NUR ---
NURSE NOTES: Pt's resting in bed, asleep with eyes closed, in no acute distress. VS stable. Will continue to monitor.
--- NOTE | 2018-06-10 06:00 | NUR ---
NURSE NOTES: Pt's resting in bed, asleep with eyes closed, in no acute distress. VS stable. Will continue to monitor.
[2018-06-10 06:09] LABS: ANION GAP 13 mmol/L (5-15); BLOOD UREA NITROGEN 31 mg/dL (7-18); CALCIUM 8.3 MG/DL (8.5-10.1); CARBON DIOXIDE 25 MMOL/L (21-32); CHLORIDE 111 MMOL/L (98-107); CREATININE 1.9 MG/DL (0.55-1.30); SODIUM 149 MMOL/L (136-145)
[2018-06-10] MEDS: Piperacillin/Tazobactam 3.375 GM in D5W 110 ML IVPB SCH ×3 (06:35→22:00)
[2018-06-10] MEDS: NovoLOG Insulin Flexpen SUBQ SCH ×4 (06:37→21:29)
[2018-06-10 07:00] LABS: HEMATOCRIT 28.5 % (37.0-47.0); HEMOGLOBIN 9.1 G/DL (12.0-16.0); MEAN CORPUSCULAR VOLUME 89 FL (80-99); PLATELET COUNT 305 K/UL (150-450); RED BLOOD COUNT 3.19 M/UL (4.20-5.40); RED CELL DISTRIBUTION WIDTH 21.5 % (11.6-14.8); WHITE BLOOD COUNT 12.8 K/UL (4.8-10.8)
--- NOTE | 2018-06-10 07:29 | NUR ---
HAND-OFF: Report given to WAYNE Boyle.
--- NOTE | 2018-06-10 07:30 | NUR ---
NURSE NOTES: Report received from Ta Rooney RN. Pt is alert and oriented but confused at times. On bilateral soft wrist restraints. Sinus rhythm on cardiac cath rn. On Bi-pap 15/5, 35%. O2 sat 97-99%. No acute respiratory distress noted. Purewick in place draining light kira colored urine by suction. Left UA PICC line patent and asymptomatic. Bed in lowest position. Side rails up x4. Call light within reach. Will resume plan of care.
--- NOTE | 2018-06-10 07:50 | NUR ---
NURSE NOTES: Turned and repositioned pt. RT increased FiO2 to 40$ according to ABG result. Will notify MD regarding ABG result.
[2018-06-10] MEDS: Metoprolol Tartrate 50mg tab ORAL SCH ×2 (08:55→21:00)
[2018-06-10] MEDS: Aspirin Baby 81mg ORAL SCH (08:55)
[2018-06-10] MEDS: Enoxaparin 80mg Inj SUBQ SCH (08:57)
[2018-06-10] MEDS: Miconazole 2% Cream 30gm TOPIC SCH ×2 (08:58→18:00)
--- NOTE | 2018-06-10 09:16 | NUR ---
NURSE NOTES: Dr Lew at bedside, assessing the patient. Updated him with pt's current condition and ABG result. He is calling Dr Benito for PEG placement. Will wait for new orders.
--- NOTE | 2018-06-10 10:07 | NUR ---
RADIOLOGY DEPT CHEST AND ABDOMEN X-RAYS PERFORMED.-P.DYE
--- NOTE | 2018-06-10 10:42 | Diagnostic Imaging Report ---
Indication: Dyspnea Technique: One view of the chest Comparison: 06/08/2018 Findings: The heart is enlarged. There is bilateral diffuse interstitial and airspace edema, increased from the prior study. There is bilateral pleural fluid suspected which is probably unchanged. Left arm PICC remains. Median sternotomy sutures are again demonstrated. There is a gastric tube in place, projecting off the edge of the exam, shown to be slightly more proximal than optimal on abdomen radiograph performed same time. Impression: Worsening bilateral interstitial and airspace edema, versus infiltrates, over 2 days Slightly high position of nasogastric tube-refer to abdomen radiograph report
--- NOTE | 2018-06-10 10:44 | Diagnostic Imaging Report ---
Indication: Post nasogastric tube placement Technique: Supine view of the upper abdomen Comparison: none Findings: Nasogastric tube in place, tip projecting at the level gastric fundus, proximal port at the gastroesophageal junction. Visualized bowel gas is unremarkable. The included portions of the chest demonstrate bilateral pleural effusions Impression: Slightly high position of gastric tube. Advancement recommended. This finding was phoned to patient's nurse at the time of interpretation Other findings as noted
--- NOTE | 2018-06-10 10:50 | Infectious Diseases Prog Note ---
Assessment/Plan Assessment/Plan A 1. pancreatitis, EUS negative 2. herpes of lip 3. diabetic ketoacidosis 4. increased LFT 5. fever resolved 6. hypertension 7. Anemia 10. Hypoxemic respiratory failure 11. Pneumonia with Klebsiella & strep Group B P 1. continue Zosyn Subjective ROS Limited/Unobtainable: Yes Respiratory: Reports: shortness of breath Gastrointestinal/Abdominal: Reports: nausea Skin: Reports: other - skin descuamation in palms and soles Allergies: Coded Allergies: SHELLFISH DERIVED (Verified Allergy, Unknown, swelling and itchiness, 05/14) Objective Vital Signs Last 24 Hour Vital Signs Date Time Temp Pulse Resp B/P (MAP) Pulse Ox O2 Delivery O2 Flow Rate FiO2 06/10/18 10:00 69 21 122/53 (76) 100 06/10/18 09:00 87 25 135/76 (95) 98 06/10/18 08:55 94 126/110 06/10/18 08:55 94 126/110 06/10/18 08:41 91 30 97 Full Face 35 06/10/18 08:00 91 27 126/110 (115) 99 06/10/18 07:50 40 06/10/18 07:40 40 06/10/18 07:30 Bi-pap 35 06/10/18 07:30 97 Bi-pap 35 06/10/18 07:30 89 24 Bi-pap 35 06/10/18 07:28 89 24 97 Full Face 35 06/10/18 07:00 87 30 115/49 (71) 98 06/10/18 06:36 124/38 06/10/18 06:00 98.9 85 21 124/38 (66) 95 06/10/18 05:14 93 31 97 Facial 35 06/10/18 05:00 90 24 119/45 (69) 93 06/10/18 04:00 88 28 134/45 (74) 90 06/10/18 04:00 87 06/10/18 03:00 89 30 117/45 (69) 91 06/10/18 02:57 91 34 100 Facial 35 06/10/18 02:00 99.0 86 25 96 86 06/10/18 01:00 90 29 92/55 (67) 95 90 06/10/18 00:58 83 31 95 Facial 35 2/21/19 00:49 115/60 06/10/18 00:00 88 27 107/56 (73) 95 88 06/10/18 00:00 90 06/09/18 23:13 86 28 94 Facial 35 06/09/18 23:00 84 30 114/47 (69) 93 84 06/09/18 22:00 94 28 120/83 (95) 95 06/09/18 21:18 84 27 95 Facial 35 06/09/18 21:00 82 21 120/52 (74) 97 06/09/18 20:45 79 127/66 06/09/18 20:00 86 06/09/18 20:00 83 23 127/66 (86) 96 06/09/18 19:16 84 19 95 Full Face 35 06/09/18 19:16 95 Bi-pap 35 06/09/18 19:16 95 27 Bi-pap 35 06/09/18 19:16 Bi-pap 35 06/09/18 19:00 99.2 87 20 118/52 (74) 100 06/09/18 18:00 82 21 125/44 (71) 100 06/09/18 17:15 84 22 94 Full Face 35 06/09/18 17:00 80 18 121/55 (77) 100 06/09/18 16:00 80 19 119/52 (74) 100 06/09/18 16:00 35 06/09/18 15:44 73 06/09/18 15:23 73 23 100 Full Face 35 06/09/18 15:00 81 20 120/42 (68) 100 06/09/18 14:00 87 20 127/42 (70) 100 06/09/18 13:00 89 24 134/64 (87) 100 06/09/18 12:43 72 19 99 Full Face 35 06/09/18 12:43 75 20 96 06/09/18 12:03 73 06/09/18 12:00 99.4 71 19 96/54 (68) 100 06/09/18 12:00 40 06/09/18 12:00 96/54 06/09/18 11:08 68 24 100 Full Face 35 06/09/18 11:00 74 23 115/50 (71) 100 Height (Feet): 4 Height (Inches): 10.00 Weight (Pounds): 174 HEENT: mucous membranes moist Respiratory/Chest: decreased breath sounds, other - on BIPAP Cardiovascular: normal rate Abdomen: soft, non tender, other - orogastric tube Extremities: other - no significant edea Skin: other - skin scaling in palms & soles Laboratory Tests Test 06/10/18 04:30 06/10/18 05:20 06/10/18 07:37 Stool Occult Blood Negative (NEGATIVE) White Blood Count 12.8 K/UL (4.8-10.8) H Red Blood Count 3.19 M/UL (4.20-5.40) L Hemoglobin 9.1 G/DL (12.0-16.0) L Hematocrit 28.5 % (37.0-47.0) L Mean Corpuscular Volume 89 FL (80-99) Mean Corpuscular Hemoglobin 28.5 PG (27.0-31.0) Mean Corpuscular Hemoglobin Concent 31.9 G/DL (32.0-36.0) L Red Cell Distribution Width 21.5 % (11.6-14.8) H Platelet Count 305 K/UL (150-450) Mean Platelet Volume 7.0 FL (6.5-10.1) Neutrophils (%) (Auto) % (45.0-75.0) Lymphocytes (%) (Auto) % (20.0-45.0) Monocytes (%) (Auto) % (1.0-10.0) Eosinophils (%) (Auto) % (0.0-3.0) Basophils (%) (Auto) % (0.0-2.0) Differential Total Cells Counted 100 Neutrophils % (Manual) 91 % (45-75) H Lymphocytes % (Manual) 2 % (20-45) L Monocytes % (Manual) 6 % (1-10) Eosinophils % (Manual) 1 % (0-3) Basophils % (Manual) 0 % (0-2) Band Neutrophils 0 % (0-8) Platelet Estimate Adequate Platelet Morphology Normal Polychromasia 1+ Hypochromasia 1+ Anisocytosis 2+ Sodium Level 149 MMOL/L (136-145) H Potassium Level 4.0 MMOL/L (3.5-5.1) Chloride Level 111 MMOL/L (98-107) H Carbon Dioxide Level 25 MMOL/L (21-32) Anion Gap 13 mmol/L (5-15) Blood Urea Nitrogen 31 mg/dL (7-18) H Creatinine 1.9 MG/DL (0.55-1.30) H Estimat Glomerular Filtration Rate 26.1 mL/min (>60) Glucose Level 209 MG/DL (74-106) H Calcium Level 8.3 MG/DL (8.5-10.1) L Arterial Blood pH 7.471 (7.350-7.450) Arterial Blood Partial Pressure CO2 28.8 mmHg (35.0-45.0) L Arterial Blood Partial Pressure O2 53.5 mmHg (75.0-100.0) L Arterial Blood HCO3 20.5 mmol/L (22.0-26.0) L Arterial Blood Oxygen Saturation 88.1 % (95-100) *L Arterial Blood Base Excess -2.4 (-2-2) L Marlon Test Positive Current Medications Medications (Trade) Dose Ordered Sig/Ellen Route PRN Reason Start Time Stop Time Status Last Admin Dose Admin Acetaminophen (Tylenol) 650 mg Q4H PRN ORAL Mild Pain/Temp > 100.5 06/08/18 15:00 07/02/18 14:59 Al Hydroxide/Mg Hydroxide (Mylanta) 30 ml Q6H PRN ORAL Abdominal cramps 06/08/18 15:00 07/02/18 14:59 Amlodipine Besylate (Norvasc) 5 mg BID ORAL 06/08/18 18:00 06/28/18 08:59 06/10/18 08:55 Aspirin (ASA) 81 mg DAILY ORAL 06/09/18 09:00 06/24/18 08:59 06/10/18 08:55 Chlorhexidine Gluconate (Leora-Hex 2%) 1 applic DAILY@1999 TOPIC 06/08/18 20:00 06/24/18 19:59 06/09/18 20:44 Dextrose (Dextrose 50%) 25 ml Q30M PRN IV Hypoglycemia 06/08/18 15:15 06/13/18 10:14 Dextrose (Dextrose 50%) 50 ml Q30M PRN IV Hypoglycemia 06/08/18 15:15 06/13/18 10:14 Enoxaparin Sodium (Lovenox) 80 mg Q24H SUBQ 06/09/18 09:00 07/03/18 08:59 06/10/18 08:57 Haloperidol Lactate (Haldol) 5 mg Q6H PRN IM Agitation 06/08/18 15:00 07/02/18 14:59 Hydralazine HCl (Apresoline) 25 mg Q6HR ORAL 06/08/18 18:00 07/02/18 00:00 06/10/18 06:36 Insulin Aspart (NovoLOG) BEFORE MEALS AND HS SUBQ 06/08/18 16:30 07/08/18 16:29 06/10/18 06:37 Magnesium Hydroxide (Mom) 30 ml DAILYPRN PRN ORAL Constipation 06/08/18 15:00 07/02/18 14:59 Metoprolol Tartrate (Lopressor) 5 mg Q2H PRN IVP For High Blood Pressure 06/08/18 15:00 06/23/18 16:59 Metoprolol Tartrate (Lopressor) 50 mg Q12HR ORAL 06/08/18 21:00 06/26/18 20:59 06/10/18 08:55 Miconazole Nitrate (Miconazole Nitrate) 1 applic BID TOPIC 06/09/18 18:30 07/09/18 18:29 06/10/18 08:58 Olanzapine (ZyPREXA) 2.5 mg BEDTIME ORAL 06/08/18 21:00 07/01/18 20:59 06/09/18 20:44 Pantoprazole (Protonix) 40 mg ACBREAKFAST ORAL 06/09/18 06:30 06/26/18 06:29 06/10/18 06:36 Piperacillin Sod/ Tazobactam Sod 3.375 gm/Dextrose 110 ml @ 27.5 mls/hr Q8HR IVPB 06/09/18 14:00 06/16/18 13:59 06/10/18 06:35 Mahesh Tejada MD Jun 10, 2018 10:50
--- NOTE | 2018-06-10 10:56 | NUR ---
NURSE NOTES: Advanced 10cm OGT according to recommendation by Radiology. Another STAT KUB ordered to confirm placement. Oral care done and repositioned pt. Daughter at bedside.
--- NOTE | 2018-06-10 11:09 | NUR ---
NURSE NOTES: Dr Imer Tejada assessed the patient. Showed dry and scaly skin on bilateral palms and feet bottom and between toes. Awaiting new orders. Dr Benito here to see the patient. Dr Benito spoke with daughter, informing that pt is on Bi-pap, unstable for PEG placement.
--- NOTE | 2018-06-10 12:20 | General Progress Note ---
Assessment/Plan Problem List: (1) HTN (hypertension) ICD Codes: I10 - Essential (primary) hypertension SNOMED: 64546444 (2) Pneumonia ICD Codes: J18.9 - Pneumonia, unspecified organism SNOMED: 113090341 (3) Diabetes ICD Codes: E11.9 - Type 2 diabetes mellitus without complications SNOMED: 60126532 (4) UTI (urinary tract infection) ICD Codes: N39.0 - Urinary tract infection, site not specified SNOMED: 35314457 Qualifiers: Qualified Codes: N39.0 - Urinary tract infection, site not specified (5) Pancreatitis ICD Codes: K85.90 - Acute pancreatitis without necrosis or infection, unspecified SNOMED: 72127040 Qualifiers: Qualified Codes: K85.90 - Acute pancreatitis without necrosis or infection, unspecified (6) Gout ICD Codes: M10.9 - Gout, unspecified SNOMED: 59360711 Qualifiers: Qualified Codes: M10.9 - Gout, unspecified (7) Anemia ICD Codes: D64.9 - Anemia, unspecified SNOMED: 604681584 Assessment/Plan Assessment/Plan Status post EUS summary of findings 1. Pancreatitis, most probably acute, without any pancreatic duct dilatation or mass. 2. No evidence of any common bile duct dilatation was seen with common bile duct stone. 3. Gallbladder wall thickening, nonspecific. 4. 1 cm kristina hepatis lymph node, nonspecific. Elevated lipase levels, downtrending RECOMMENDATIONS: No need for ERCP Pain management Trend lipase Zofran as needed Follow-up labs poor po intake but currently on BIPAP and not stable for PEG placement plan NGTF D/W family at the bedside Subjective ROS Limited/Unobtainable: No Allergies: Coded Allergies: SHELLFISH DERIVED (Verified Allergy, Unknown, swelling and itchiness, 05/14) Subjective skin rash Objective Last 24 Hour Vital Signs Date Time Temp Pulse Resp B/P (MAP) Pulse Ox O2 Delivery O2 Flow Rate FiO2 06/10/18 11:16 66 23 99 Full Face 35 06/10/18 11:00 80 19 131/70 (90) 99 06/10/18 10:00 69 21 122/53 (76) 100 06/10/18 09:00 87 25 135/76 (95) 98 06/10/18 08:55 94 126/110 06/10/18 08:55 94 126/110 06/10/18 08:41 91 30 97 Full Face 35 06/10/18 08:00 91 27 126/110 (115) 99 06/10/18 07:50 40 06/10/18 07:40 40 06/10/18 07:30 Bi-pap 35 06/10/18 07:30 97 Bi-pap 35 06/10/18 07:30 89 24 Bi-pap 35 06/10/18 07:28 89 24 97 Full Face 35 06/10/18 07:00 87 30 115/49 (71) 98 06/10/18 06:36 124/38 06/10/18 06:00 98.9 85 21 124/38 (66) 95 06/10/18 05:14 93 31 97 Facial 35 06/10/18 05:00 90 24 119/45 (69) 93 06/10/18 04:00 88 28 134/45 (74) 90 06/10/18 04:00 87 06/10/18 03:00 89 30 117/45 (69) 91 06/10/18 02:57 91 34 100 Facial 35 06/10/18 02:00 99.0 86 25 96 86 06/10/18 01:00 90 29 92/55 (67) 95 90 06/10/18 00:58 83 31 95 Facial 35 06/10/18 00:49 115/60 06/10/18 00:00 88 27 107/56 (73) 95 88 06/10/18 00:00 90 06/09/18 23:13 86 28 94 Facial 35 06/09/18 23:00 84 30 114/47 (69) 93 84 06/09/18 22:00 94 28 120/83 (95) 95 06/09/18 21:18 84 27 95 Facial 35 06/09/18 21:00 82 21 120/52 (74) 97 06/09/18 20:45 79 127/66 06/09/18 20:00 86 06/09/18 20:00 83 23 127/66 (86) 96 06/09/18 19:16 84 19 95 Full Face 35 06/09/18 19:16 95 Bi-pap 35 06/09/18 19:16 95 27 Bi-pap 35 06/09/18 19:16 Bi-pap 35 2/20/19 19:00 99.2 87 20 118/52 (74) 100 06/09/18 18:00 82 21 125/44 (71) 100 06/09/18 17:15 84 22 94 Full Face 35 06/09/18 17:00 80 18 121/55 (77) 100 06/09/18 16:00 80 19 119/52 (74) 100 06/09/18 16:00 35 06/09/18 15:44 73 06/09/18 15:23 73 23 100 Full Face 35 06/09/18 15:00 81 20 120/42 (68) 100 06/09/18 14:00 87 20 127/42 (70) 100 06/09/18 13:00 89 24 134/64 (87) 100 06/09/18 12:43 72 19 99 Full Face 35 06/09/18 12:43 75 20 96 Intake and Output 06/09/18 06/10/18 19:00 07:00 Intake Total 200.0 ml 110.0 ml Output Total 350 ml 600 ml Balance -150.0 ml -490.0 ml Intake Oral 90 ml IV Total 110.0 ml 110.0 ml Output Urine Total 350 ml 600 ml # Bowel Movements 1 Laboratory Tests 06/10/18 04:30: Stool Occult Blood Negative 06/10/18 05:20: White Blood Count 12.8H, Red Blood Count 3.19L, Hemoglobin 9.1L, Hematocrit 28.5L, Mean Corpuscular Volume 89, Mean Corpuscular Hemoglobin 28.5, Mean Corpuscular Hemoglobin Concent 31.9L, Red Cell Distribution Width 21.5H, Platelet Count 305, Mean Platelet Volume 7.0, Neutrophils (%) (Auto) , Lymphocytes (%) (Auto) , Monocytes (%) (Auto) , Eosinophils (%) (Auto) , Basophils (%) (Auto) , Differential Total Cells Counted 100, Neutrophils % ( Manual) 91H, Lymphocytes % (Manual) 2L, Monocytes % (Manual) 6, Eosinophils % ( Manual) 1, Basophils % (Manual) 0, Band Neutrophils 0, Platelet Estimate Adequate, Platelet Morphology Normal, Polychromasia 1+, Hypochromasia 1+, Anisocytosis 2+, Sodium Level 149H, Potassium Level 4.0, Chloride Level 111H, Carbon Dioxide Level 25, Anion Gap 13, Blood Urea Nitrogen 31H, Creatinine 1.9H , Estimat Glomerular Filtration Rate 26.1, Glucose Level 209H, Calcium Level 8.3L 06/10/18 07:37: Arterial Blood pH 7.471H, Arterial Blood Partial Pressure CO2 28.8L, Arterial Blood Partial Pressure O2 53.5L, Arterial Blood HCO3 20.5L, Arterial Blood Oxygen Saturation 88.1*L, Arterial Blood Base Excess -2.4L, Marlon Test Positive Height (Feet): 4 Height (Inches): 10.00 Weight (Pounds): 174 General Appearance: lethargic EENT: normal ENT inspection Neck: supple Cardiovascular: tachycardia Respiratory/Chest: decreased breath sounds, crackles/rales Abdomen: normal bowel sounds, non tender, soft Extremities: non-tender Neeraj Benito MD Jun 10, 2018 12:20
--- NOTE | 2018-06-10 13:25 | Diagnostic Imaging Report ---
Indication: Malpositioned gastric tube Technique: Supine view of the abdomen Comparison: 4 hours earlier Findings: Interim advancement of previously malpositioned gastric tube, tip now projected level gastric body, position now satisfactory. Other findings are unchanged. Impression: Improved and now satisfactory position of nasogastric tube
--- NOTE | 2018-06-10 13:33 | NUR ---
NURSE NOTES: Physical therapy getting done at bedside. Spoke with Dr Mo, Radiologist, regarding OGT placement. It is in stomach as per Dr Mo. Will start tube feeding.
--- NOTE | 2018-06-10 14:00 | NUR ---
NURSE NOTES: OGT placement confirmed with Dr Amador. Repositioned pt in High Reeves's and feeding started at 10cc/hr. Will continue to monitor.
--- NOTE | 2018-06-10 15:03 | NUR ---
*- INSURANCE *-* UPDATED AND REVIEWS AND INTERQUAL HAVE BEEN FAXED TO: [facility] ROSA: RUDY P:[phone] F:[phone]
--- NOTE | 2018-06-10 17:00 | NUR ---
NURSE NOTES: Cleaned pr for leaked urine. Turned and repositioned pt. Pt is tolerating Bi-pap with FiO2 40%. O2 sat 967-98%. Repositioned pt PRN. Will continue to monitor.
--- NOTE | 2018-06-10 17:44 | General Progress Note ---
Assessment/Plan Assessment/Plan Impression Diabetic ketoacidosis Anemia Transaminitis of unclear etiology Severe protein calorie malnutrition Evidence of pancreatitis, better Acute renal failure, improved Hyperglycemia Diabetes Hyponatremia Metabolic acidosis Hypercholesterolemia fever oral ulcers afib with RVR leukopenia pancreatitis CVA pleural effusions GT needs nutrition on antibiotics with + cultures; per ID on lovenox ? eliquis have renal reevaluate care noted; will need rehab with current status still very weak and will need snf recheck BMP in am swallow evaluation pending impression, plan, and exam edited and reviewed in detail care discussed with RN Subjective Allergies: Coded Allergies: SHELLFISH DERIVED (Verified Allergy, Unknown, swelling and itchiness, 05/14) Subjective care noted not eating well NAD still lethargic Objective Last 24 Hour Vital Signs Date Time Temp Pulse Resp B/P (MAP) Pulse Ox O2 Delivery O2 Flow Rate FiO2 06/10/18 17:19 77 23 100 Full Face 40 06/10/18 16:00 98.8 67 20 111/46 (67) 100 06/10/18 15:57 64 06/10/18 15:06 67 19 100 Full Face 40 06/10/18 15:00 70 20 121/58 (79) 99 06/10/18 14:00 83 22 126/45 (72) 100 06/10/18 13:00 76 25 134/48 (76) 100 06/10/18 12:47 77 06/10/18 12:00 99.8 70 20 129/41 (70) 95 06/10/18 11:16 66 23 99 Full Face 35 06/10/18 11:00 80 19 131/70 (90) 99 06/10/18 10:00 69 21 122/53 (76) 100 06/10/18 09:00 87 25 135/76 (95) 98 06/10/18 08:55 94 126/110 06/10/18 08:55 94 126/110 06/10/18 08:41 91 30 97 Full Face 35 06/10/18 08:00 91 27 126/110 (115) 99 06/10/18 07:57 88 06/10/18 07:50 40 06/10/18 07:40 40 06/10/18 07:30 Bi-pap 35 06/10/18 07:30 97 Bi-pap 35 06/10/18 07:30 89 24 Bi-pap 35 06/10/18 07:28 89 24 97 Full Face 35 06/10/18 07:00 87 30 115/49 (71) 98 06/10/18 06:36 124/38 06/10/18 06:00 98.9 85 21 124/38 (66) 95 06/10/18 05:14 93 31 97 Facial 35 06/10/18 05:00 90 24 119/45 (69) 93 06/10/18 04:00 88 28 134/45 (74) 90 06/10/18 04:00 87 06/10/18 03:00 89 30 117/45 (69) 91 06/10/18 02:57 91 34 100 Facial 35 06/10/18 02:00 99.0 86 25 96 86 06/10/18 01:00 90 29 92/55 (67) 95 90 06/10/18 00:58 83 31 95 Facial 35 06/10/18 00:49 115/60 06/10/18 00:00 88 27 107/56 (73) 95 88 06/10/18 00:00 90 06/09/18 23:13 86 28 94 Facial 35 06/09/18 23:00 84 30 114/47 (69) 93 84 06/09/18 22:00 94 28 120/83 (95) 95 06/09/18 21:18 84 27 95 Facial 35 06/09/18 21:00 82 21 120/52 (74) 97 06/09/18 20:45 79 127/66 06/09/18 20:00 86 06/09/18 20:00 83 23 127/66 (86) 96 06/09/18 19:16 84 19 95 Full Face 35 06/09/18 19:16 95 Bi-pap 35 06/09/18 19:16 95 27 Bi-pap 35 06/09/18 19:16 Bi-pap 35 06/09/18 19:00 99.2 87 20 118/52 (74) 100 06/09/18 18:00 82 21 125/44 (71) 100 Intake and Output 06/09/18 06/10/18 19:00 07:00 Intake Total 200.0 ml 110.0 ml Output Total 350 ml 600 ml Balance -150.0 ml -490.0 ml Intake Oral 90 ml IV Total 110.0 ml 110.0 ml Output Urine Total 350 ml 600 ml # Bowel Movements 1 Laboratory Tests 06/10/18 04:30: Stool Occult Blood Negative 06/10/18 05:20: White Blood Count 12.8H, Red Blood Count 3.19L, Hemoglobin 9.1L, Hematocrit 28.5L, Mean Corpuscular Volume 89, Mean Corpuscular Hemoglobin 28.5, Mean Corpuscular Hemoglobin Concent 31.9L, Red Cell Distribution Width 21.5H, Platelet Count 305, Mean Platelet Volume 7.0, Neutrophils (%) (Auto) , Lymphocytes (%) (Auto) , Monocytes (%) (Auto) , Eosinophils (%) (Auto) , Basophils (%) (Auto) , Differential Total Cells Counted 100, Neutrophils % ( Manual) 91H, Lymphocytes % (Manual) 2L, Monocytes % (Manual) 6, Eosinophils % ( Manual) 1, Basophils % (Manual) 0, Band Neutrophils 0, Platelet Estimate Adequate, Platelet Morphology Normal, Polychromasia 1+, Hypochromasia 1+, Anisocytosis 2+, Sodium Level 149H, Potassium Level 4.0, Chloride Level 111H, Carbon Dioxide Level 25, Anion Gap 13, Blood Urea Nitrogen 31H, Creatinine 1.9H , Estimat Glomerular Filtration Rate 26.1, Glucose Level 209H, Calcium Level 8.3L 06/10/18 07:37: Arterial Blood pH 7.471H, Arterial Blood Partial Pressure CO2 28.8L, Arterial Blood Partial Pressure O2 53.5L, Arterial Blood HCO3 20.5L, Arterial Blood Oxygen Saturation 88.1*L, Arterial Blood Base Excess -2.4L, Marlon Test Positive Height (Feet): 4 Height (Inches): 10.00 Weight (Pounds): 174 Objective WDWN lethargic clear breath sounds bilaterally without rhonchi or wheeze S1S2 RRR without MRG NABS nontender no HSM no CCE remains weak Jesus Lew MD Jun 10, 2018 17:44
--- NOTE | 2018-06-10 19:37 | NUR ---
HAND-OFF: Report given to WAYNE Sevilla.
--- NOTE | 2018-06-10 19:38 | NUR ---
NURSE NOTES: Report received from Lanny Suárez RN. Pt is alert and oriented X3. On bilateral soft wrist restraints. Sinus rhythm on carpenter prototype. On Bi-pap 15/5, 40%. O2 sat 100%. No acute respiratory distress noted. Purewick in place draining light kira colored urine by suction. Left UA PICC line intact no s/s of infiltration. bed locked and in lowest position. Bed alarm on, Call light within reach.
[2018-06-10] MEDS: Dyna-Hex 2% Top Sol 2oz TOPIC SCH (21:22)
[2018-06-10] MEDS: OLANZapine 2.5mg tab ORAL SCH (21:23)
--- NOTE | 2018-06-10 21:38 | NUR ---
NURSE NOTES: Repositioned. denies any pain or discomfort. CHG bath given. No s/s of hypo/hyperglycemia. Will continue plan of care.
--- NOTE | 2018-06-10 23:38 | NUR ---
NURSE NOTES: OGT intact running Glucerna 1.5 at 30cc/hr goal 45cc/hr. HOB elevated, no residual. No s/s of acute distress noted. Will continue plan of care.
--- NOTE | 2018-06-10 23:58 | Cardiology Progress Note ---
Assessment/Plan Assessment/Plan 1. Paroxysmal atrial fibrillation, in ST now, due to CHADS-VASC score of 5, continue enoxaparin and metoprolol. 2. Hx of CAD, s/p CABG, ASA , atorvastatin and metoprolol. No wall motion abnormalities on Echo, LVEF ~55%. 3. Sinus tachycardia due to hypovolemia. 4. DKA, resolved. 5. DM 6. HTN, well controlled, continue amlodipine, metoprolol and hydralazine. 7. Severe pulmonary HTN. 8. MAMADOU, creatinine up to 1.9. 9. Hypokalemia, resolved, K at 4.1. Subjective Subjective Sinus tachycardia at rate of 100. On full face mask oxygen. Objective Last 24 Hour Vital Signs Date Time Temp Pulse Resp B/P (MAP) Pulse Ox O2 Delivery O2 Flow Rate FiO2 06/10/18 23:11 100 24 96 Full Face 35 06/10/18 23:00 100 24 118/48 (71) 98 06/10/18 22:00 83 22 127/55 (79) 99 06/10/18 21:59 86 19 98 Full Face 35 06/10/18 21:00 76 89/69 06/10/18 21:00 82 21 89/69 (76) 91 06/10/18 20:00 72 06/10/18 20:00 98.9 80 21 117/54 (75) 100 06/10/18 19:10 Bi-pap 35 06/10/18 19:10 100 Bi-pap 35 06/10/18 19:10 76 24 100 Full Face 35 06/10/18 19:09 78 18 Bi-pap 40 06/10/18 19:00 82 21 113/68 (83) 98 06/10/18 18:00 71 17 121/71 (88) 97 06/10/18 17:19 77 23 100 Full Face 40 06/10/18 17:00 71 18 114/50 (71) 100 06/10/18 16:00 98.8 67 20 111/46 (67) 100 06/10/18 16:00 40 06/10/18 15:57 64 06/10/18 15:06 67 19 100 Full Face 40 06/10/18 15:00 70 20 121/58 (79) 99 06/10/18 14:00 83 22 126/45 (72) 100 06/10/18 13:00 76 25 134/48 (76) 100 06/10/18 12:47 77 06/10/18 12:00 99.8 70 20 129/41 (70) 95 06/10/18 12:00 40 06/10/18 11:16 66 23 99 Full Face 35 06/10/18 11:00 80 19 131/70 (90) 99 06/10/18 10:00 69 21 122/53 (76) 100 06/10/18 09:00 87 25 135/76 (95) 98 06/10/18 08:55 94 126/110 06/10/18 08:55 94 126/110 06/10/18 08:41 91 30 97 Full Face 35 06/10/18 08:00 91 27 126/110 (115) 99 06/10/18 08:00 40 06/10/18 07:57 88 06/10/18 07:50 40 06/10/18 07:40 40 06/10/18 07:30 Bi-pap 35 06/10/18 07:30 97 Bi-pap 35 06/10/18 07:30 89 24 Bi-pap 35 06/10/18 07:28 89 24 97 Full Face 35 06/10/18 07:00 87 30 115/49 (71) 98 06/10/18 06:36 124/38 06/10/18 06:00 98.9 85 21 124/38 (66) 95 06/10/18 05:14 93 31 97 Facial 35 06/10/18 05:00 90 24 119/45 (69) 93 06/10/18 04:00 88 28 134/45 (74) 90 06/10/18 04:00 87 06/10/18 03:00 89 30 117/45 (69) 91 06/10/18 02:57 91 34 100 Facial 35 06/10/18 02:00 99.0 86 25 96 86 06/10/18 01:00 90 29 92/55 (67) 95 90 06/10/18 00:58 83 31 95 Facial 35 06/10/18 00:49 115/60 06/10/18 00:00 88 27 107/56 (73) 95 88 06/10/18 00:00 90 Intake and Output 06/09/18 06/10/18 19:00 07:00 Intake Total 200.0 ml 110.0 ml Output Total 350 ml 600 ml Balance -150.0 ml -490.0 ml Intake Oral 90 ml IV Total 110.0 ml 110.0 ml Output Urine Total 350 ml 600 ml # Bowel Movements 1 2D Echo: EF55%,Mild LVH,Mod MR,Mild AR,RVSP 67 mmHg (severe PHT),Restrictive LV phy Laboratory Tests Test 06/10/18 04:30 06/10/18 05:20 06/10/18 07:37 Stool Occult Blood Negative (NEGATIVE) White Blood Count 12.8 K/UL (4.8-10.8) H Red Blood Count 3.19 M/UL (4.20-5.40) L Hemoglobin 9.1 G/DL (12.0-16.0) L Hematocrit 28.5 % (37.0-47.0) L Mean Corpuscular Volume 89 FL (80-99) Mean Corpuscular Hemoglobin 28.5 PG (27.0-31.0) Mean Corpuscular Hemoglobin Concent 31.9 G/DL (32.0-36.0) L Red Cell Distribution Width 21.5 % (11.6-14.8) H Platelet Count 305 K/UL (150-450) Mean Platelet Volume 7.0 FL (6.5-10.1) Neutrophils (%) (Auto) % (45.0-75.0) Lymphocytes (%) (Auto) % (20.0-45.0) Monocytes (%) (Auto) % (1.0-10.0) Eosinophils (%) (Auto) % (0.0-3.0) Basophils (%) (Auto) % (0.0-2.0) Differential Total Cells Counted 100 Neutrophils % (Manual) 91 % (45-75) H Lymphocytes % (Manual) 2 % (20-45) L Monocytes % (Manual) 6 % (1-10) Eosinophils % (Manual) 1 % (0-3) Basophils % (Manual) 0 % (0-2) Band Neutrophils 0 % (0-8) Platelet Estimate Adequate Platelet Morphology Normal Polychromasia 1+ Hypochromasia 1+ Anisocytosis 2+ Sodium Level 149 MMOL/L (136-145) H Potassium Level 4.0 MMOL/L (3.5-5.1) Chloride Level 111 MMOL/L (98-107) H Carbon Dioxide Level 25 MMOL/L (21-32) Anion Gap 13 mmol/L (5-15) Blood Urea Nitrogen 31 mg/dL (7-18) H Creatinine 1.9 MG/DL (0.55-1.30) H Estimat Glomerular Filtration Rate 26.1 mL/min (>60) Glucose Level 209 MG/DL (74-106) H Calcium Level 8.3 MG/DL (8.5-10.1) L Arterial Blood pH 7.471 (7.350-7.450) Arterial Blood Partial Pressure CO2 28.8 mmHg (35.0-45.0) L Arterial Blood Partial Pressure O2 53.5 mmHg (75.0-100.0) L Arterial Blood HCO3 20.5 mmol/L (22.0-26.0) L Arterial Blood Oxygen Saturation 88.1 % (95-100) *L Arterial Blood Base Excess -2.4 (-2-2) L Marlon Test Positive Objective HEENT: Normocephalic, atraumatic, Pupils equally reactive to light and accommodation, EOMI. NECK: No JVD, no carotid bruit. CARDIOVASCULAR: Regular rate and rhythm. No murmurs, gallops or rubs. LUNGS: Clear to auscultation bilaterally. No crackles or Rhonchi. ABDOMEN: Soft and nontender. No organomegaly, + BS. EXTREMITIES: No cyanosis, clubbing or edema. Miller Mckeon MD Jun 10, 2018 23:58
[2018-06-11] VITALS (26 sets, daily range): BP systolic 73–139; BP diastolic 30–100
--- NOTE | 2018-06-11 01:38 | NUR ---
NURSE NOTES: Patient with confusion kicking pillows and tried to slide down from bed, encouraged patients to verbalize needs, fears and feelings to staff. Repositioned. Bipap 01/09 Fi02 35% satting 100%. Will continue plan of care.
--- NOTE | 2018-06-11 03:38 | NUR ---
NURSE NOTES: Bed bath given. patient with x1 episode of medium brown BM. Kept clean and dry. Oral care provided. Will continue plan of care.
[2018-06-11] MEDS: Piperacillin/Tazobactam 3.375 GM in D5W 110 ML IVPB SCH ×3 (05:48→22:00)
[2018-06-11] MEDS: NovoLOG Insulin Flexpen SUBQ SCH ×4 (05:50→21:00)
[2018-06-11] MEDS: HydrALAZINE 25mg tab ORAL SCH ×4 (05:56→18:06)
--- NOTE | 2018-06-11 07:04 | NUR ---
NURSE NOTES: Called pharmacy spoke with Angelica regarding the Protonix tablet order unable to crush per Angelica she will changed order per protocol.
[2018-06-11 07:12] LABS: BASOPHILS % (AUTO) 0.8 % (0.0-2.0); HEMATOCRIT 28.3 % (37.0-47.0); HEMOGLOBIN 8.8 G/DL (12.0-16.0); LYMPHOCYTES % (AUTO) 5.8 % (20.0-45.0); MEAN CORPUSCULAR VOLUME 91 FL (80-99); MONOCYTES % (AUTO) 7.7 % (1.0-10.0); NEUTROPHILS % (AUTO) 84.8 % (45.0-75.0); PLATELET COUNT 283 K/UL (150-450); RED CELL DISTRIBUTION WIDTH 21.6 % (11.6-14.8); WHITE BLOOD COUNT 12.7 K/UL (4.8-10.8)
--- NOTE | 2018-06-11 07:16 | NUR ---
HAND-OFF: Report given to WAYNE Guillaume.
--- NOTE | 2018-06-11 07:20 | NUR ---
NURSE NOTES: Rpeort received from Di Lemons RN.Pt resting quietly in bed awake,alert but on and off confused to some degree,noted no resp distress on Bipap 15/5 Fio2 35%O2 sat 99%,no signs of pain or discomfort,AFIB on the monitor,OGTF Glucerna 1.5 at 45ml/hr,no residual noted,incontinent of urine and stools,pt on Pure wick IV site to ,OMAR PICC line intact,skin warm and dry,HOB elevated ,SR up x2 bilat wrist restraints in placed,bed lock in lowest position,will continue with plans of care.
--- NOTE | 2018-06-11 08:00 | NUR ---
NURSE NOTES: Pt incontinent of stools,soft formed brown stools in Large amount,bed bath given,turned and repositioned,kept dry and cleaned.
[2018-06-11 08:01] LABS: ANION GAP 14 mmol/L (5-15); BLOOD UREA NITROGEN 33 mg/dL (7-18); CALCIUM 8.5 MG/DL (8.5-10.1); CARBON DIOXIDE 24 MMOL/L (21-32); CHLORIDE 113 MMOL/L (98-107); CREATININE 1.9 MG/DL (0.55-1.30); POTASSIUM 3.9 MMOL/L (3.5-5.1); SODIUM 151 MMOL/L (136-145)
[2018-06-11] MEDS: Enoxaparin 80mg Inj SUBQ SCH (09:00)
--- NOTE | 2018-06-11 09:00 | NUR ---
NURSE NOTES: Dr Landry covering for Dr Lew,Ordered to discontinue OGT and feeding while on Bipap.Insert a smaller feeding a Dubhoff. Start Pt on IVF D5 1/2 NS at 50 ml/hr,
[2018-06-11] MEDS: Metoprolol Tartrate 50mg tab ORAL SCH ×2 (09:32→21:15)
[2018-06-11] MEDS: Aspirin Baby 81mg ORAL SCH (09:32)
[2018-06-11] MEDS: D5 1/2NS 1,000 ML IV SCH (09:36)
--- NOTE | 2018-06-11 10:19 | Infectious Diseases Prog Note ---
"Assessment/Plan Assessment/Plan antibiotics : zosyn A 1. klebsiella | streptococcus pneumonia 2. herpes of lip s/p rx 3. diabetic ketoacidosis resolved 4. respiratory failure 5. hypertension 6. leucocytosis improving 7. renal failure P 1. continue zosyn 2. will follow up cultures Subjective ROS Limited/Unobtainable: Yes Allergies: Coded Allergies: SHELLFISH DERIVED (Verified Allergy, Unknown, swelling and itchiness, 05/14) Objective Vital Signs Last 24 Hour Vital Signs Date Time Temp Pulse Resp B/P (MAP) Pulse Ox O2 Delivery O2 Flow Rate FiO2 06/11/18 09:32 95 112/41 06/11/18 09:32 95 112/41 06/11/18 09:07 95 19 100 Full Face 35 06/11/18 08:00 35 06/11/18 08:00 99.0 89 22 112/41 (64) 100 06/11/18 07:08 84 24 100 Full Face 35 06/11/18 07:07 84 25 Bi-pap 35 06/11/18 07:06 100 Bi-pap 35 06/11/18 07:06 Bi-pap 35 06/11/18 07:00 94 18 98/73 (81) 100 06/11/18 06:00 112/82 (92) 06/11/18 05:56 139/30 06/11/18 05:07 89 22 100 Full Face 35 06/11/18 05:03 98 26 139/30 (66) 98 06/11/18 04:30 96 26 98 06/11/18 04:00 99.2 84 21 137/87 (104) 99 06/11/18 04:00 83 06/11/18 04:00 35 06/11/18 03:29 83 16 100 Full Face 35 06/11/18 03:08 87 20 120/60 (80) 99 06/11/18 03:04 86 23 81/53 (62) 99 06/11/18 03:00 87 19 73/30 (44) 99 06/11/18 02:00 89 21 115/41 (65) 99 06/11/18 01:45 91 20 99 Full Face 35 06/11/18 01:00 100 24 120/47 (71) 95 06/11/18 00:30 84 18 99 06/11/18 00:00 88 06/11/18 00:00 100/48 06/11/18 00:00 98.8 84 17 106/81 (89) 98 06/11/18 00:00 40 06/10/18 23:30 91 21 98 06/10/18 23:11 100 24 96 Full Face 35 06/10/18 23:00 100 24 118/48 (71) 98 06/10/18 22:00 83 22 127/55 (79) 99 06/10/18 21:59 86 19 98 Full Face 35 06/10/18 21:00 76 89/69 06/10/18 21:00 82 21 89/69 (76) 91 06/10/18 20:00 72 06/10/18 20:00 98.9 80 21 117/54 (75) 100 06/10/18 19:10 Bi-pap 35 06/10/18 19:10 100 Bi-pap 35 06/10/18 19:10 76 24 100 Full Face 35 06/10/18 19:09 78 18 Bi-pap 40 06/10/18 19:00 82 21 113/68 (83) 98 06/10/18 18:00 71 17 121/71 (88) 97 06/10/18 17:19 77 23 100 Full Face 40 06/10/18 17:00 71 18 114/50 (71) 100 06/10/18 16:00 98.8 67 20 111/46 (67) 100 06/10/18 16:00 40 06/10/18 15:57 64 06/10/18 15:06 67 19 100 Full Face 40 06/10/18 15:00 70 20 121/58 (79) 99 06/10/18 14:00 83 22 126/45 (72) 100 06/10/18 13:00 76 25 134/48 (76) 100 06/10/18 12:47 77 06/10/18 12:00 99.8 70 20 129/41 (70) 95 06/10/18 12:00 40 06/10/18 11:16 66 23 99 Full Face 35 06/10/18 11:00 80 19 131/70 (90) 99 Height (Feet): 4 Height (Inches): 10.00 Weight (Pounds): 175 HEENT: other - on bipap Respiratory/Chest: lungs clear Cardiovascular: normal rate, regular rhythm, no gallop/murmur Abdomen: soft, non tender Extremities: other - + edema, left arm PICC Laboratory Tests Test 06/11/18 04:00 White Blood Count 12.7 K/UL (4.8-10.8) H Red Blood Count 3.10 M/UL (4.20-5.40) L Hemoglobin 8.8 G/DL (12.0-16.0) L Hematocrit 28.3 % (37.0-47.0) L Mean Corpuscular Volume 91 FL (80-99) Mean Corpuscular Hemoglobin 28.4 PG (27.0-31.0) Mean Corpuscular Hemoglobin Concent 31.1 G/DL (32.0-36.0) L Red Cell Distribution Width 21.6 % (11.6-14.8) H Platelet Count 283 K/UL (150-450) Mean Platelet Volume 7.0 FL (6.5-10.1) Neutrophils (%) (Auto) 84.8 % (45.0-75.0) H Lymphocytes (%) (Auto) 5.8 % (20.0-45.0) L Monocytes (%) (Auto) 7.7 % (1.0-10.0) Eosinophils (%) (Auto) 1.0 % (0.0-3.0) Basophils (%) (Auto) 0.8 % (0.0-2.0) Sodium Level 151 MMOL/L (136-145) H Potassium Level 3.9 MMOL/L (3.5-5.1) Chloride Level 113 MMOL/L (98-107) H Carbon Dioxide Level 24 MMOL/L (21-32) Anion Gap 14 mmol/L (5-15) Blood Urea Nitrogen 33 mg/dL (7-18) H Creatinine 1.9 MG/DL (0.55-1.30) H Estimat Glomerular Filtration Rate 26.1 mL/min (>60) Glucose Level 230 MG/DL (74-106) H Calcium Level 8.5 MG/DL (8.5-10.1) Current Medications Medications (Trade) Dose Ordered Sig/Ellen Route PRN Reason Start Time Stop Time Status Last Admin Dose Admin Acetaminophen (Tylenol) 650 mg Q4H PRN ORAL Mild Pain/Temp > 100.5 06/08/18 15:00 07/02/18 14:59 Al Hydroxide/Mg Hydroxide (Mylanta) 30 ml Q6H PRN ORAL Abdominal cramps 06/08/18 15:00 07/02/18 14:59 Amlodipine Besylate (Norvasc) 5 mg BID ORAL 06/08/18 18:00 06/28/18 08:59 06/11/18 09:32 Aspirin (ASA) 81 mg DAILY ORAL 06/09/18 09:00 06/24/18 08:59 06/11/18 09:32 Chlorhexidine Gluconate (Leora-Hex 2%) 1 applic DAILY@2000 TOPIC 06/08/18 20:00 06/24/18 19:59 06/10/18 21:22 Dextrose (Dextrose 50%) 25 ml Q30M PRN IV Hypoglycemia 06/08/18 15:15 06/13/18 10:14 Dextrose (Dextrose 50%) 50 ml Q30M PRN IV Hypoglycemia 06/08/18 15:15 06/13/18 10:14 Dextrose/Sodium Chloride 1,000 ml @ 50 mls/hr Q20H IV 06/11/18 09:00 07/11/18 08:59 06/11/18 09:36 Enoxaparin Sodium (Lovenox) 80 mg Q24H SUBQ 06/09/18 09:00 07/03/18 08:59 06/11/18 09:00 Haloperidol Lactate (Haldol) 5 mg Q6H PRN IM Agitation 06/08/18 15:00 07/02/18 14:59 Hydralazine HCl (Apresoline) 25 mg Q6HR ORAL 06/08/18 18:00 07/02/18 00:00 06/11/18 05:56 Insulin Aspart (NovoLOG) BEFORE MEALS AND HS SUBQ 06/08/18 16:30 07/08/18 16:29 06/11/18 05:50 Lansoprazole (Prevacid) 30 mg DAILY GT 06/11/18 09:00 07/11/18 08:59 06/11/18 09:32 Magnesium Hydroxide (Mom) 30 ml DAILYPRN PRN ORAL Constipation 06/08/18 15:00 07/02/18 14:59 Metoprolol Tartrate (Lopressor) 5 mg Q2H PRN IVP For High Blood Pressure 06/08/18 15:00 06/23/18 16:59 Metoprolol Tartrate (Lopressor) 50 mg Q12HR ORAL 06/08/18 21:00 06/26/18 20:59 06/11/18 09:32 Miconazole Nitrate (Miconazole Nitrate) 1 applic BID TOPIC 06/09/18 18:30 07/09/18 18:29 06/10/18 18:00 Olanzapine (ZyPREXA) 2.5 mg BEDTIME ORAL 06/08/18 21:00 07/01/18 20:59 06/10/18 21:23 Piperacillin Sod/ Tazobactam Sod 3.375 gm/Dextrose 110 ml @ 27.5 mls/hr Q8HR IVPB 06/09/18 14:00 06/16/18 13:59 06/11/18 05:48 Khadra Melendez MD Jun 11, 2018 10:19"
--- NOTE | 2018-06-11 12:00 | NUR ---
NURSE NOTES: Family members at bedside,updated re pt's status.
--- NOTE | 2018-06-11 12:00 | NUR ---
NURSE NOTES: Dr Hyman at bedside,assessed pt.
--- NOTE | 2018-06-11 12:06 | NUR ---
RD ASSESSMENT & RECOMMENDATIONS SEE CARE ACTIVITY FOR COMPLETE ASSESSMENT DAILY ESTIMATED NEEDS: Needs based on DM, cardiac, pulmonary/ 54kg abw 25-30 kcals/kg 3334-0870 total kcals 1-1.5 g protein/kg 54-81 g total protein 25-30 mL/kg 3876-1577 total fluid mLs NUTRITION DIAGNOSIS: 1) Altered nutrition related lab values R/T diabetes, clinical condition as evidenced by A1C 11.4, increased from 8.1 in August 2017, DKA w/ adm ZA=300-> 230 209 improved, elev BNP (2846), elev creat (1.9), elev LFTs, trending back down, elev lipase (>2000 -> 554 trend down). 2) Swallowing difficulty R/T dysphagia, h/o old CVA + subacute CVA, decreased alertness, respiratory status as evidenced by WORK ORDER DETAILER now recommends [facility] nonoral feedings, s/p OGT insertion, TF held at this time as pt on BIPAP. CURRENT DIET:NPO CURRENT TF:Glucerna 1.5 @ 45ml/hr x 24 hrs-> HELD PO DIET RECOMMENDATIONS: IF SAFE FOR PO -> Rec liberalized diet w/ poor PO + Texture per WORK ORDER DETAILER ENTERAL NUTRITION RECOMMENDATIONS: Glucerna 1.5 @ 45ml/hr x 24 hrs to provide 1080ml, 1620kcal, 83g prot, 820ml free water * Resume TF when medically appropriate * HOB over 30 degrees/ water flush per MD ADDITIONAL RECOMMENDATIONS: 1) RE-calibrated bed wt for accurate CBW 2) Monitor BIPAP needs, adjust TF rate as needed (TF held while on BIPAP at this time) 3) If PO continues-> monitor PO acceptance and tolerance -> rec liberalized diet of regular w/ poor PO intake 4) Consider long acting insulin for improved BG control 5) Monitor lytes closely, replete as needed, rec to check f/up phos and mag
--- NOTE | 2018-06-11 12:28 | General Progress Note ---
Assessment/Plan Problem List: (1) HTN (hypertension) ICD Codes: I10 - Essential (primary) hypertension SNOMED: 68818387 (2) Pneumonia ICD Codes: J18.9 - Pneumonia, unspecified organism SNOMED: 800474911 (3) Diabetes ICD Codes: E11.9 - Type 2 diabetes mellitus without complications SNOMED: 60930767 (4) UTI (urinary tract infection) ICD Codes: N39.0 - Urinary tract infection, site not specified SNOMED: 66579820 Qualifiers: Qualified Codes: N39.0 - Urinary tract infection, site not specified (5) Pancreatitis ICD Codes: K85.90 - Acute pancreatitis without necrosis or infection, unspecified SNOMED: 97792073 Qualifiers: Qualified Codes: K85.90 - Acute pancreatitis without necrosis or infection, unspecified (6) Gout ICD Codes: M10.9 - Gout, unspecified SNOMED: 53694228 Qualifiers: Qualified Codes: M10.9 - Gout, unspecified (7) Anemia ICD Codes: D64.9 - Anemia, unspecified SNOMED: 855475478 Assessment/Plan Assessment/Plan Status post EUS summary of findings 1. Pancreatitis, most probably acute, without any pancreatic duct dilatation or mass. 2. No evidence of any common bile duct dilatation was seen with common bile duct stone. 3. Gallbladder wall thickening, nonspecific. 4. 1 cm kristina hepatis lymph node, nonspecific. Elevated lipase levels, downtrending RECOMMENDATIONS: No need for ERCP Pain management Trend lipase Zofran as needed Follow-up labs poor po intake but currently on BIPAP and not stable for PEG placement NGTF on hold per pulm Subjective ROS Limited/Unobtainable: No Allergies: Coded Allergies: SHELLFISH DERIVED (Verified Allergy, Unknown, swelling and itchiness, 05/14) Subjective skin rash Objective Last 24 Hour Vital Signs Date Time Temp Pulse Resp B/P (MAP) Pulse Ox O2 Delivery O2 Flow Rate FiO2 06/11/18 12:00 35 06/11/18 12:00 69 20 105/54 (71) 92 06/11/18 11:54 107/51 06/11/18 11:21 79 18 99 Full Face 35 06/11/18 11:00 67 18 107/51 (69) 92 06/11/18 10:00 69 18 120/60 (80) 95 06/11/18 09:32 95 112/41 06/11/18 09:32 95 112/41 06/11/18 09:07 95 19 100 Full Face 35 06/11/18 09:00 91 20 112/60 (77) 91 06/11/18 08:00 35 06/11/18 08:00 99.0 89 22 112/41 (64) 100 06/11/18 08:00 107 06/11/18 07:08 84 24 100 Full Face 35 06/11/18 07:07 84 25 Bi-pap 35 06/11/18 07:06 100 Bi-pap 35 06/11/18 07:06 Bi-pap 35 06/11/18 07:00 94 18 98/73 (81) 100 06/11/18 06:00 112/82 (92) 06/11/18 05:56 139/30 06/11/18 05:07 89 22 100 Full Face 35 06/11/18 05:03 98 26 139/30 (66) 98 06/11/18 04:30 96 26 98 06/11/18 04:00 99.2 84 21 137/87 (104) 99 06/11/18 04:00 83 06/11/18 04:00 35 06/11/18 03:29 83 16 100 Full Face 35 06/11/18 03:08 87 20 120/60 (80) 99 06/11/18 03:04 86 23 81/53 (62) 99 06/11/18 03:00 87 19 73/30 (44) 99 06/11/18 02:00 89 21 115/41 (65) 99 06/11/18 01:45 91 20 99 Full Face 35 06/11/18 01:00 100 24 120/47 (71) 95 06/11/18 00:30 84 18 99 06/11/18 00:00 88 06/11/18 00:00 100/48 06/11/18 00:00 98.8 84 17 106/81 (89) 98 06/11/18 00:00 40 06/10/18 23:30 91 21 98 06/10/18 23:11 100 24 96 Full Face 35 06/10/18 23:00 100 24 118/48 (71) 98 06/10/18 22:00 83 22 127/55 (79) 99 06/10/18 21:59 86 19 98 Full Face 35 06/10/18 21:00 76 89/69 06/10/18 21:00 82 21 89/69 (76) 91 06/10/18 20:00 72 06/10/18 20:00 98.9 80 21 117/54 (75) 100 06/10/18 19:10 Bi-pap 35 06/10/18 19:10 100 Bi-pap 35 06/10/18 19:10 76 24 100 Full Face 35 06/10/18 19:09 78 18 Bi-pap 40 06/10/18 19:00 82 21 113/68 (83) 98 06/10/18 18:00 71 17 121/71 (88) 97 06/10/18 17:19 77 23 100 Full Face 40 06/10/18 17:00 71 18 114/50 (71) 100 06/10/18 16:00 98.8 67 20 111/46 (67) 100 06/10/18 16:00 40 06/10/18 15:57 64 06/10/18 15:06 67 19 100 Full Face 40 06/10/18 15:00 70 20 121/58 (79) 99 06/10/18 14:00 83 22 126/45 (72) 100 06/10/18 13:00 76 25 134/48 (76) 100 06/10/18 12:47 77 Intake and Output 06/10/18 06/11/18 19:00 07:00 Intake Total 330.0 ml 977.5 ml Output Total 200 ml 300 ml Balance 130.0 ml 677.5 ml Intake Oral 10 ml Free Water 300 ml IV Total 220.0 ml 137.5 ml Tube Feeding 100 ml 480 ml Other 60 ml Output Urine Total 200 ml 300 ml # Bowel Movements 1 Laboratory Tests 06/11/18 04:00: White Blood Count 12.7H, Red Blood Count 3.10L, Hemoglobin 8.8L, Hematocrit 28.3L, Mean Corpuscular Volume 91, Mean Corpuscular Hemoglobin 28.4, Mean Corpuscular Hemoglobin Concent 31.1L, Red Cell Distribution Width 21.6H, Platelet Count 283, Mean Platelet Volume 7.0, Neutrophils (%) (Auto) 84.8H, Lymphocytes (%) (Auto) 5.8L, Monocytes (%) (Auto) 7.7, Eosinophils (%) (Auto) 1.0, Basophils (%) (Auto) 0.8, Sodium Level 151H, Potassium Level 3.9, Chloride Level 113H, Carbon Dioxide Level 24, Anion Gap 14, Blood Urea Nitrogen 33H, Creatinine 1.9H, Estimat Glomerular Filtration Rate 26.1, Glucose Level 230H, Calcium Level 8.5 Height (Feet): 4 Height (Inches): 10.00 Weight (Pounds): 175 General Appearance: mild distress EENT: normal ENT inspection Neck: supple Cardiovascular: normal rate Respiratory/Chest: decreased breath sounds Abdomen: normal bowel sounds, non tender, soft Extremities: non-tender Neeraj Benito MD Jun 11, 2018 12:28
--- NOTE | 2018-06-11 12:35 | Nephrology Progress Note ---
Assessment/Plan Plan Hypernatremia - hold TF. Started on D5W! Subjective Subjective Asked to resume f/u. Patienr seen a Month ago. Back in ICU on BIPAP. Objective Objective Last 24 Hour Vital Signs Date Time Temp Pulse Resp B/P (MAP) Pulse Ox O2 Delivery O2 Flow Rate FiO2 06/11/18 12:00 35 06/11/18 12:00 69 20 105/54 (71) 92 06/11/18 11:54 107/51 06/11/18 11:21 79 18 99 Full Face 35 06/11/18 11:00 67 18 107/51 (69) 92 06/11/18 10:00 69 18 120/60 (80) 95 06/11/18 09:32 95 112/41 06/11/18 09:32 95 112/41 06/11/18 09:07 95 19 100 Full Face 35 06/11/18 09:00 91 20 112/60 (77) 91 06/11/18 08:00 35 06/11/18 08:00 99.0 89 22 112/41 (64) 100 06/11/18 08:00 107 06/11/18 07:08 84 24 100 Full Face 35 06/11/18 07:07 84 25 Bi-pap 35 06/11/18 07:06 100 Bi-pap 35 06/11/18 07:06 Bi-pap 35 06/11/18 07:00 94 18 98/73 (81) 100 06/11/18 06:00 112/82 (92) 06/11/18 05:56 139/30 06/11/18 05:07 89 22 100 Full Face 35 06/11/18 05:03 98 26 139/30 (66) 98 06/11/18 04:30 96 26 98 06/11/18 04:00 99.2 84 21 137/87 (104) 99 06/11/18 04:00 83 06/11/18 04:00 35 06/11/18 03:29 83 16 100 Full Face 35 06/11/18 03:08 87 20 120/60 (80) 99 06/11/18 03:04 86 23 81/53 (62) 99 06/11/18 03:00 87 19 73/30 (44) 99 06/11/18 02:00 89 21 115/41 (65) 99 06/11/18 01:45 91 20 99 Full Face 35 06/11/18 01:00 100 24 120/47 (71) 95 06/11/18 00:30 84 18 99 06/11/18 00:00 88 06/11/18 00:00 100/48 06/11/18 00:00 98.8 84 17 106/81 (89) 98 06/11/18 00:00 40 06/10/18 23:30 91 21 98 06/10/18 23:11 100 24 96 Full Face 35 06/10/18 23:00 100 24 118/48 (71) 98 06/10/18 22:00 83 22 127/55 (79) 99 06/10/18 21:59 86 19 98 Full Face 35 06/10/18 21:00 76 89/69 06/10/18 21:00 82 21 89/69 (76) 91 06/10/18 20:00 72 06/10/18 20:00 98.9 80 21 117/54 (75) 100 06/10/18 19:10 Bi-pap 35 06/10/18 19:10 100 Bi-pap 35 06/10/18 19:10 76 24 100 Full Face 35 06/10/18 19:09 78 18 Bi-pap 40 06/10/18 19:00 82 21 113/68 (83) 98 06/10/18 18:00 71 17 121/71 (88) 97 06/10/18 17:19 77 23 100 Full Face 40 06/10/18 17:00 71 18 114/50 (71) 100 06/10/18 16:00 98.8 67 20 111/46 (67) 100 06/10/18 16:00 40 06/10/18 15:57 64 06/10/18 15:06 67 19 100 Full Face 40 06/10/18 15:00 70 20 121/58 (79) 99 06/10/18 14:00 83 22 126/45 (72) 100 06/10/18 13:00 76 25 134/48 (76) 100 06/10/18 12:47 77 Intake and Output 06/10/18 06/11/18 19:00 07:00 Intake Total 330.0 ml 977.5 ml Output Total 200 ml 300 ml Balance 130.0 ml 677.5 ml Intake Oral 10 ml Free Water 300 ml IV Total 220.0 ml 137.5 ml Tube Feeding 100 ml 480 ml Other 60 ml Output Urine Total 200 ml 300 ml # Bowel Movements 1 Laboratory Tests 06/11/18 04:00: White Blood Count 12.7H, Red Blood Count 3.10L, Hemoglobin 8.8L, Hematocrit 28.3L, Mean Corpuscular Volume 91, Mean Corpuscular Hemoglobin 28.4, Mean Corpuscular Hemoglobin Concent 31.1L, Red Cell Distribution Width 21.6H, Platelet Count 283, Mean Platelet Volume 7.0, Neutrophils (%) (Auto) 84.8H, Lymphocytes (%) (Auto) 5.8L, Monocytes (%) (Auto) 7.7, Eosinophils (%) (Auto) 1.0, Basophils (%) (Auto) 0.8, Sodium Level 151H, Potassium Level 3.9, Chloride Level 113H, Carbon Dioxide Level 24, Anion Gap 14, Blood Urea Nitrogen 33H, Creatinine 1.9H, Estimat Glomerular Filtration Rate 26.1, Glucose Level 230H, Calcium Level 8.5 Height (Feet): 4 Height (Inches): 10.00 Weight (Pounds): 175 Objective On BIPAP CV RR Lungs B wheezes Abd SNT. BS + E No CCE Charo Hyman MD Jun 11, 2018 12:34
[2018-06-11] MEDS: Miconazole 2% Cream 30gm TOPIC SCH ×2 (13:29→18:07)
--- NOTE | 2018-06-11 15:24 | NUR ---
STOCK REPLENISHER NOTES SPOKE WITH RUDY FROM [facility], CLINICAL REVIEW GIVEN. PT REMAINS ICU STATUS. WILL FOLLOW UP ON THURSDAY. REQUESTED LTACH PLACEMENT.
--- NOTE | 2018-06-11 17:00 | NUR ---
NURSE NOTES: Dr Landry at bedside,updated re pt's status,tried to insert dubhoff NGT per MD order but unable to do so per hospital protocol,will have Garret or Dr Diaz insert it tomorrow,
--- NOTE | 2018-06-11 18:00 | NUR ---
HAND-OFF: Report given to Di Lemons RN.
[2018-06-11] MEDS ORDERED: NS 275ml ONE ×3 (18:15→20:50)
--- NOTE | 2018-06-11 19:30 | NUR ---
NURSE NOTES: Report received from Markell RN. Pt is alert and oriented 2-3 with episode of forgetful, reality orientation provided. On bilateral soft wrist restraints. Sinus rhythm on teletypesetter monitor HR 66. On Bi-pap 15/, 35%. O2 sat 100%. No acute respiratory distress noted. Purewick in place. Left UA PICC line intact no s/s of infiltration. bed locked and in lowest position. Bed alarm on, Call light within reach. Will continue plan of care
--- NOTE | 2018-06-11 20:21 | NUR ---
RESPIRATORY NOTE: Received pt. on BIPAP, BIPAP settings are: 15/5, PS 10, rate 18, FI02 35%. No respiratory distress noted, pt. Sp02 @ 98%. BIPAP plugged on red outlet. Will continue to monitor pt.
[2018-06-11] MEDS ORDERED: Tubing IV Secondary IV ONE ×2 (20:44→20:50)
[2018-06-11] MEDS ORDERED: NS 500ML ONE (20:50)
[2018-06-11] MEDS ORDERED: D5 1/2NS 1000ml IV ONE (20:55)
[2018-06-11] MEDS: OLANZapine 2.5mg tab ORAL SCH (21:15)
[2018-06-11] MEDS: Dyna-Hex 2% Top Sol 2oz TOPIC SCH (21:15)
--- NOTE | 2018-06-11 21:30 | NUR ---
NURSE NOTES: CHG bath given. Oral care provided. No s/s of hypo/hyperglycemia. Will continue plan of care.
--- NOTE | 2018-06-11 21:57 | Pulmonolgy Critical Care Note ---
Critical Care - Asmt/Plan Assessment/Plan: Pulmonary CCM Progress Note Assessment/Plan Impression Diabetic ketoacidosis TF to ICU as short of breath, on BiPAP Aw NGT On IVF Anemia Transaminitis of unclear etiology Severe protein calorie malnutrition Evidence of pancreatitis, better Acute renal failure, improved Hyperglycemia Diabetes Hyponatremia Metabolic acidosis Hypercholesterolemia fever oral ulcers afib with RVR leukopenia pancreatitis CVA pleural effusions d/w family about GT- await decision needs nutrition on antibiotics with + cultures; per ID on lovenox ? eliquis 3rd spacing at present, diurese PRN care noted; will need rehab with current status still very weak swallow evaluation pending impression, plan, and exam edited and reviewed in detail care discussed with RN Subjective Allergies: Coded Allergies: SHELLFISH DERIVED (Verified Allergy, Unknown, swelling and itchiness, 05/14) Subjective care noted not eating well NAD still lethargic Objective Vital Signs Noted Laboratory Tests 06/08/18 04:45: White Blood Count 16.5H, Red Blood Count 3.26L, Hemoglobin 9.4L, Hematocrit 28.8L, Mean Corpuscular Volume 88, Mean Corpuscular Hemoglobin 28.8, Mean Corpuscular Hemoglobin Concent 32.6, Red Cell Distribution Width 20.9H, Platelet Count 245, Mean Platelet Volume 7.3, Neutrophils (%) (Auto) 84.7H, Lymphocytes (%) (Auto) 5.7L, Monocytes (%) (Auto) 7.7, Eosinophils (%) (Auto) 0.6, Basophils (%) (Auto) 1.3, Sodium Level 145, Potassium Level 3.7, Chloride Level 109H, Carbon Dioxide Level 24, Anion Gap 12, Blood Urea Nitrogen 27H, Creatinine 1.8H, Estimat Glomerular Filtration Rate 27.8, Glucose Level 207H, Calcium Level 8.1L 06/08/18 05:00: Stool Occult Blood Negative Height (Feet): 4 Height (Inches): 10.00 Weight (Pounds): 180 Objective WDWN lethargic clear breath sounds bilaterally without rhonchi or wheeze S1S2 RRR without MRG NABS nontender no HSM no CC, mild edema remains weak Critical Care - Objective Last 24 Hour Vital Signs Date Time Temp Pulse Resp B/P (MAP) Pulse Ox O2 Delivery O2 Flow Rate FiO2 06/11/18 20:24 98 22 84 Full Face 35 2/22/19 20:23 98 Bi-pap 35 06/11/18 20:23 79 25 Bi-pap 35 06/11/18 20:23 Bi-pap 35 06/11/18 20:00 98.5 81 21 133/67 (89) 97 06/11/18 20:00 35 06/11/18 19:00 81 19 125/58 (80) 100 06/11/18 18:07 67 117/54 06/11/18 18:06 115/53 06/11/18 18:00 72 19 117/54 (75) 100 06/11/18 17:24 67 20 98 Full Face 35 06/11/18 17:00 62 16 115/53 (73) 100 06/11/18 16:12 35 06/11/18 16:00 69 06/11/18 16:00 97.9 78 17 111/56 (74) 100 06/11/18 15:05 69 20 100 Full Face 35 06/11/18 15:00 69 18 108/49 (68) 99 06/11/18 14:00 72 20 115/55 (75) 92 06/11/18 13:14 68 21 100 Full Face 35 06/11/18 13:06 99.2 72 18 111/57 (75) 100 06/11/18 12:00 35 06/11/18 12:00 69 20 105/54 (71) 92 06/11/18 12:00 73 06/11/18 11:54 107/51 06/11/18 11:21 79 18 99 Full Face 35 06/11/18 11:00 67 18 107/51 (69) 92 06/11/18 10:00 69 18 120/60 (80) 95 06/11/18 09:32 95 112/41 06/11/18 09:32 95 112/41 06/11/18 09:07 95 19 100 Full Face 35 06/11/18 09:00 91 20 112/60 (77) 91 06/11/18 08:00 35 06/11/18 08:00 99.0 89 22 112/41 (64) 100 06/11/18 08:00 107 06/11/18 07:08 84 24 100 Full Face 35 06/11/18 07:07 84 25 Bi-pap 35 06/11/18 07:06 100 Bi-pap 35 06/11/18 07:06 Bi-pap 35 06/11/18 07:00 94 18 98/73 (81) 100 06/11/18 06:00 112/82 (92) 06/11/18 05:56 139/30 06/11/18 05:07 89 22 100 Full Face 35 06/11/18 05:03 98 26 139/30 (66) 98 06/11/18 04:30 96 26 98 06/11/18 04:00 99.2 84 21 137/87 (104) 99 06/11/18 04:00 83 06/11/18 04:00 35 06/11/18 03:29 83 16 100 Full Face 35 06/11/18 03:08 87 20 120/60 (80) 99 06/11/18 03:04 86 23 81/53 (62) 99 06/11/18 03:00 87 19 73/30 (44) 99 06/11/18 02:00 89 21 115/41 (65) 99 06/11/18 01:45 91 20 99 Full Face 35 06/11/18 01:00 100 24 120/47 (71) 95 06/11/18 00:30 84 18 99 06/11/18 00:00 88 06/11/18 00:00 100/48 06/11/18 00:00 98.8 84 17 106/81 (89) 98 06/11/18 00:00 40 06/10/18 23:30 91 21 98 06/10/18 23:11 100 24 96 Full Face 35 06/10/18 23:00 100 24 118/48 (71) 98 06/10/18 22:00 83 22 127/55 (79) 99 06/10/18 21:59 86 19 98 Full Face 35 Accucheck: 195 Critical Care - Subjective ROS Limited/Unobtainable: No FI02: 35 Vent Support Mode: BiLevel Sputum Amount: None Tube Feeding Amount: 45 I&O: Intake and Output 06/10/18 06/11/18 19:00 07:00 Intake Total 330.0 ml 977.5 ml Output Total 200 ml 300 ml Balance 130.0 ml 677.5 ml Intake Oral 10 ml Free Water 300 ml IV Total 220.0 ml 137.5 ml Tube Feeding 100 ml 480 ml Other 60 ml Output Urine Total 200 ml 300 ml # Bowel Movements 1 Gulshan aLndry MD Jun 11, 2018 21:57
--- NOTE | 2018-06-11 22:30 | NUR ---
NURSE NOTES: Patient with episode of confusion kicking pillows, pulling out tubing and tried to slide down from bed, encouraged patients to verbalize needs, fears and feelings to staff, per patient stated "nothing". Repositioned. Bipap 01/09 Fi02 35% satting 100%. Will continue plan of care.
--- NOTE | 2018-06-11 22:35 | General Progress Note ---
Assessment/Plan Assessment/Plan Assessment and Recs # Pancytopenia -- appears that initial hep and hiv are negative though final results to follow, liver shows no major hsm or cirrhosis, may consider meds or bone marrow process, smear reviewed, does have low albumin, has been hospitalized for some time, in and out since 04/30/18. Hiv and hepatitis panels are both negative --> query meds, review with ID, is on micafungin now, monitor counts closely --> given hgb downtrending and some nucleated reds on smear, will send off a flow cytometry --> nepogen 300mcg sq to maintain anc >1500 --> wbc trend : 1.7-->4.3-->3.1-->3.4-->7.7-->8.1--12-->15-->11-->14.6 # Anemia of chronic disease - monitor anemia panel --> hemolysis does not appear to be the case --> anemia panel reviewed and c/w acd --> hgb trend: 8.3-->9.2-->8.9-->8.7-->9-->7.7-->7 # Paroxysmal atrial fibrillation, due to CHADS-VASC score of 5, we require to keep anticoagulated, on metoprolol --> continue on apixaban # Hx of CAD, s/p CABG, ASA , atorvastatin and metoprolol. No wall motion abnormalities on Echo. LVEF ~55%. --> appreciate cards recs # Sinus tachycardia due to hypovolemia, resolved. # DKA, resolved. --> continue monitor # DM, non-compliant with medications. # Hx of HTN, controlled with metoprolol. # pancreatitis -- appreciate gi recs # increased LFT The timing of this note does not necessarily reflect the time of the patient was seen. Greatly appreciate consultation! Subjective Allergies: Coded Allergies: SHELLFISH DERIVED (Verified Allergy, Unknown, swelling and itchiness, 05/14) Subjective 05/18: Pt is awake and comfortable, no events, leukopenia improved, wbc 4.3, plt 151 05/19: seen by bedside, awake, comfortable, plt 122 05/20: Pt is awake and comfortable, no events 05/21: Pt is seen in the room, resting in bed, no fevers or chills, wbc 8.7, plt 117 2/: Pt is resting in bed, awake, comfortable, no fevers or chills, no acute distress. 2: EGD and EUS done today, has no gallbladder stones, only pancreatitis, no events 2: no events, dermatitis has improved, off loading of heels, pancreatitis and dka better 2: Pt is awake, comfortable, no acute events overnight, hgb 8.6 05/27: seen by bedside, awake, comfortable, no events 05/28: resting in bed, awake, comfortable, no fevers or chills, no acute distress , No need for ERCP per GI, 05/31: Pt is awake and comfortable, no events 06/01: awake, comfortable, denies acute distress. 06/02: seen by bedside, awake, comfortable, no acute distress. wbc 15. 2: no acute events, denies any abdominal pain, wbc trending down at 11 today. 06/04: awake/drowsy in bed, breathing easily on nasal cannula, denies SOB and pain at this time. 06/06: anemia cotninues to worsen, may consider a bone marrow biopsy if patient approves 06/07: hgb 9.7, not eating well, remains lethargic 06/08: hgb is stable, respiratory status is worsened, and thus was transferred to the icu 06/09: seen by bedside,awake, comfortable, plan to insert NGT samanta 06/10: not eating well, remains lethargic 06/11: poor po intake but currently on BIPAP and not stable for PEG placement, NGTF on hold per pulm Objective Last 24 Hour Vital Signs Date Time Temp Pulse Resp B/P (MAP) Pulse Ox O2 Delivery O2 Flow Rate FiO2 06/11/18 20:24 98 22 84 Full Face 35 06/11/18 20:23 98 Bi-pap 35 06/11/18 20:23 79 25 Bi-pap 35 06/11/18 20:23 Bi-pap 35 06/11/18 20:00 98.5 81 21 133/67 (89) 97 06/11/18 20:00 35 06/11/18 19:00 81 19 125/58 (80) 100 06/11/18 18:07 67 117/54 06/11/18 18:06 115/53 06/11/18 18:00 72 19 117/54 (75) 100 06/11/18 17:24 67 20 98 Full Face 35 06/11/18 17:00 62 16 115/53 (73) 100 06/11/18 16:12 35 06/11/18 16:00 69 06/11/18 16:00 97.9 78 17 111/56 (74) 100 06/11/18 15:05 69 20 100 Full Face 35 06/11/18 15:00 69 18 108/49 (68) 99 06/11/18 14:00 72 20 115/55 (75) 92 06/11/18 13:14 68 21 100 Full Face 35 06/11/18 13:06 99.2 72 18 111/57 (75) 100 06/11/18 12:00 35 06/11/18 12:00 69 20 105/54 (71) 92 06/11/18 12:00 73 06/11/18 11:54 107/51 06/11/18 11:21 79 18 99 Full Face 35 06/11/18 11:00 67 18 107/51 (69) 92 06/11/18 10:00 69 18 120/60 (80) 95 06/11/18 09:32 95 112/41 06/11/18 09:32 95 112/41 06/11/18 09:07 95 19 100 Full Face 35 06/11/18 09:00 91 20 112/60 (77) 91 06/11/18 08:00 35 06/11/18 08:00 99.0 89 22 112/41 (64) 100 06/11/18 08:00 107 06/11/18 07:08 84 24 100 Full Face 35 06/11/18 07:07 84 25 Bi-pap 35 06/11/18 07:06 100 Bi-pap 35 06/11/18 07:06 Bi-pap 35 06/11/18 07:00 94 18 98/73 (81) 100 06/11/18 06:00 112/82 (92) 06/11/18 05:56 139/30 06/11/18 05:07 89 22 100 Full Face 35 06/11/18 05:03 98 26 139/30 (66) 98 06/11/18 04:30 96 26 98 06/11/18 04:00 99.2 84 21 137/87 (104) 99 06/11/18 04:00 83 06/11/18 04:00 35 06/11/18 03:29 83 16 100 Full Face 35 06/11/18 03:08 87 20 120/60 (80) 99 06/11/18 03:04 86 23 81/53 (62) 99 06/11/18 03:00 87 19 73/30 (44) 99 06/11/18 02:00 89 21 115/41 (65) 99 06/11/18 01:45 91 20 99 Full Face 35 06/11/18 01:00 100 24 120/47 (71) 95 06/11/18 00:30 84 18 99 06/11/18 00:00 88 06/11/18 00:00 100/48 06/11/18 00:00 98.8 84 17 106/81 (89) 98 06/11/18 00:00 40 06/10/18 23:30 91 21 98 06/10/18 23:11 100 24 96 Full Face 35 06/10/18 23:00 100 24 118/48 (71) 98 Intake and Output 06/10/18 06/11/18 19:00 07:00 Intake Total 330.0 ml 977.5 ml Output Total 200 ml 300 ml Balance 130.0 ml 677.5 ml Intake Oral 10 ml Free Water 300 ml IV Total 220.0 ml 137.5 ml Tube Feeding 100 ml 480 ml Other 60 ml Output Urine Total 200 ml 300 ml # Bowel Movements 1 Laboratory Tests 06/11/18 04:00: White Blood Count 12.7H, Red Blood Count 3.10L, Hemoglobin 8.8L, Hematocrit 28.3L, Mean Corpuscular Volume 91, Mean Corpuscular Hemoglobin 28.4, Mean Corpuscular Hemoglobin Concent 31.1L, Red Cell Distribution Width 21.6H, Platelet Count 283, Mean Platelet Volume 7.0, Neutrophils (%) (Auto) 84.8H, Lymphocytes (%) (Auto) 5.8L, Monocytes (%) (Auto) 7.7, Eosinophils (%) (Auto) 1.0, Basophils (%) (Auto) 0.8, Sodium Level 151H, Potassium Level 3.9, Chloride Level 113H, Carbon Dioxide Level 24, Anion Gap 14, Blood Urea Nitrogen 33H, Creatinine 1.9H, Estimat Glomerular Filtration Rate 26.1, Glucose Level 230H, Calcium Level 8.5 Height (Feet): 4 Height (Inches): 10.00 Weight (Pounds): 175 Objective PHYSICAL EXAMINATION: GENERAL: Pleasant [place] woman, tired HEENT: Normocephalic and atraumatic. Sclerae anicteric. Oropharynx clear. NECK: Supple. CHEST: bilateral crackles and ++ nc CARDIOVASCULAR: Revealed regular rate. ABDOMEN: Soft. Good bowel sounds. There is no organomegaly or tenderness. Anterior chest and abdomen scars were as expected. EXTREMITIES: Revealed no edema. Armando Bowen MD Jun 11, 2018 22:35
--- NOTE | 2018-06-11 23:56 | Cardiology Progress Note ---
Assessment/Plan Assessment/Plan 1. Paroxysmal atrial fibrillation, in ST now, due to CHADS-VASC score of 5, continue enoxaparin and metoprolol. 2. Hx of CAD, s/p CABG, ASA , atorvastatin and metoprolol. No wall motion abnormalities on Echo, LVEF ~55%. 3. Sinus tachycardia due to hypovolemia. 4. DKA, resolved. 5. DM 6. HTN, well controlled, continue amlodipine, metoprolol and hydralazine. 7. Severe pulmonary HTN. 8. MAMADOU, creatinine up to 1.9. 9. Hypokalemia, resolved, K at 4.1. Subjective Subjective Sinus rhythm at rate of 88. On full face mask oxygen. Objective Last 24 Hour Vital Signs Date Time Temp Pulse Resp B/P (MAP) Pulse Ox O2 Delivery O2 Flow Rate FiO2 06/11/18 23:05 81 28 92 Full Face 35 06/11/18 23:00 74 23 130/100 (110) 95 06/11/18 22:00 72 20 137/56 (83) 96 06/11/18 21:15 98 133/67 06/11/18 21:00 88 19 125/77 (93) 96 06/11/18 20:24 84 22 98 Full Face 35 06/11/18 20:23 98 Bi-pap 35 06/11/18 20:23 79 25 Bi-pap 35 06/11/18 20:23 Bi-pap 35 06/11/18 20:00 98.5 81 21 133/67 (89) 97 06/11/18 20:00 35 06/11/18 19:00 81 19 125/58 (80) 100 06/11/18 18:07 67 117/54 06/11/18 18:06 115/53 06/11/18 18:00 72 19 117/54 (75) 100 06/11/18 17:24 67 20 98 Full Face 35 06/11/18 17:00 62 16 115/53 (73) 100 06/11/18 16:12 35 06/11/18 16:00 69 06/11/18 16:00 97.9 78 17 111/56 (74) 100 06/11/18 15:05 69 20 100 Full Face 35 06/11/18 15:00 69 18 108/49 (68) 99 06/11/18 14:00 72 20 115/55 (75) 92 06/11/18 13:14 68 21 100 Full Face 35 06/11/18 13:06 99.2 72 18 111/57 (75) 100 06/11/18 12:00 35 06/11/18 12:00 69 20 105/54 (71) 92 06/11/18 12:00 73 06/11/18 11:54 107/51 06/11/18 11:21 79 18 99 Full Face 35 06/11/18 11:00 67 18 107/51 (69) 92 06/11/18 10:00 69 18 120/60 (80) 95 06/11/18 09:32 95 112/41 06/11/18 09:32 95 112/41 06/11/18 09:07 95 19 100 Full Face 35 06/11/18 09:00 91 20 112/60 (77) 91 06/11/18 08:00 35 06/11/18 08:00 99.0 89 22 112/41 (64) 100 06/11/18 08:00 107 06/11/18 07:08 84 24 100 Full Face 35 06/11/18 07:07 84 25 Bi-pap 35 06/11/18 07:06 100 Bi-pap 35 06/11/18 07:06 Bi-pap 35 06/11/18 07:00 94 18 98/73 (81) 100 06/11/18 06:00 112/82 (92) 06/11/18 05:56 139/30 06/11/18 05:07 89 22 100 Full Face 35 06/11/18 05:03 98 26 139/30 (66) 98 06/11/18 04:30 96 26 98 06/11/18 04:00 99.2 84 21 137/87 (104) 99 06/11/18 04:00 83 06/11/18 04:00 35 06/11/18 03:29 83 16 100 Full Face 35 06/11/18 03:08 87 20 120/60 (80) 99 06/11/18 03:04 86 23 81/53 (62) 99 06/11/18 03:00 87 19 73/30 (44) 99 06/11/18 02:00 89 21 115/41 (65) 99 06/11/18 01:45 91 20 99 Full Face 35 06/11/18 01:00 100 24 120/47 (71) 95 06/11/18 00:30 84 18 99 06/11/18 00:00 88 06/11/18 00:00 100/48 06/11/18 00:00 98.8 84 17 106/81 (89) 98 06/11/18 00:00 40 Intake and Output 06/10/18 06/11/18 19:00 07:00 Intake Total 330.0 ml 977.5 ml Output Total 200 ml 300 ml Balance 130.0 ml 677.5 ml Intake Oral 10 ml Free Water 300 ml IV Total 220.0 ml 137.5 ml Tube Feeding 100 ml 480 ml Other 60 ml Output Urine Total 200 ml 300 ml # Bowel Movements 1 2D Echo: EF55%,Mild LVH,Mod MR,Mild AR,RVSP 67 mmHg (severe PHT),Restrictive LV phy Laboratory Tests Test 06/11/18 04:00 White Blood Count 12.7 K/UL (4.8-10.8) H Red Blood Count 3.10 M/UL (4.20-5.40) L Hemoglobin 8.8 G/DL (12.0-16.0) L Hematocrit 28.3 % (37.0-47.0) L Mean Corpuscular Volume 91 FL (80-99) Mean Corpuscular Hemoglobin 28.4 PG (27.0-31.0) Mean Corpuscular Hemoglobin Concent 31.1 G/DL (32.0-36.0) L Red Cell Distribution Width 21.6 % (11.6-14.8) H Platelet Count 283 K/UL (150-450) Mean Platelet Volume 7.0 FL (6.5-10.1) Neutrophils (%) (Auto) 84.8 % (45.0-75.0) H Lymphocytes (%) (Auto) 5.8 % (20.0-45.0) L Monocytes (%) (Auto) 7.7 % (1.0-10.0) Eosinophils (%) (Auto) 1.0 % (0.0-3.0) Basophils (%) (Auto) 0.8 % (0.0-2.0) Sodium Level 151 MMOL/L (136-145) H Potassium Level 3.9 MMOL/L (3.5-5.1) Chloride Level 113 MMOL/L (98-107) H Carbon Dioxide Level 24 MMOL/L (21-32) Anion Gap 14 mmol/L (5-15) Blood Urea Nitrogen 33 mg/dL (7-18) H Creatinine 1.9 MG/DL (0.55-1.30) H Estimat Glomerular Filtration Rate 26.1 mL/min (>60) Glucose Level 230 MG/DL (74-106) H Calcium Level 8.5 MG/DL (8.5-10.1) Objective HEENT: Normocephalic, atraumatic, Pupils equally reactive to light and accommodation, EOMI. NECK: No JVD, no carotid bruit. CARDIOVASCULAR: Regular rate and rhythm. No murmurs, gallops or rubs. LUNGS: Clear to auscultation bilaterally. No crackles or Rhonchi. ABDOMEN: Soft and nontender. No organomegaly, + BS. EXTREMITIES: No cyanosis, clubbing or edema. Miller Mckeon MD Jun 11, 2018 23:56
[2018-06-12] VITALS (25 sets, daily range): BP systolic 73–148; BP diastolic 53–88
--- NOTE | 2018-06-12 00:30 | NUR ---
NURSE NOTES: Patient in bed sleeping comfortably. No s/s of hypo/hyperglycemia. HOB elevated. OGT intact, NPO. No s/s of acute distress noted. Repositioned. Bilateral soft wrist restraint checked every 2 hours. Will continue plan of care.
--- NOTE | 2018-06-12 02:30 | NUR ---
NURSE NOTES: Patient in bed sleeping comfortably. No s/s of hypo/hyperglycemia. HOB elevated. No s/s of acute distress noted. Repositioned. On P200 for wound management. Bilateral soft wrist restraint checked every 2 hours. Will continue plan of care.
[2018-06-12] MEDS: D5 1/2NS 1,000 ML IV SCH (04:01)
--- NOTE | 2018-06-12 04:30 | NUR ---
NURSE NOTES: Patient with episode of bowel movement kept clean and dry. Repositioned. no s/s of hypo/hyperglycemia. Will continue plan of care.
[2018-06-12] MEDS: HydrALAZINE 25mg tab ORAL SCH ×4 (06:30→18:12)
[2018-06-12] MEDS: Piperacillin/Tazobactam 3.375 GM in D5W 110 ML IVPB SCH ×3 (06:30→22:00)
--- NOTE | 2018-06-12 06:30 | NUR ---
NURSE NOTES: Blood glucose 279mg/dl 8 units Novolog insulin per sliding scale given. Repositioned. Oral care provided.
[2018-06-12] MEDS: NovoLOG Insulin Flexpen SUBQ SCH ×4 (06:31→20:24)
--- NOTE | 2018-06-12 07:30 | NUR ---
HAND-OFF: Report given to WAYNE Ivan.
--- NOTE | 2018-06-12 08:00 | NUR ---
NURSE NOTES: Report received from WAYNE Sevilla. Pt is alert and oriented 2-3 with episode of forgetful, reality orientation provided. On bilateral soft wrist restraints. Sinus rhythm on environmental monitoring specialist HR 76. On Bi-pap 15/, 35%. O2 sat 100%. No acute respiratory distress noted. Purewick in place. Left UA PICC line intact no s/s of infiltration. bed locked and in lowest position. Bed alarm on, Call light within reach. Will continue plan of care
[2018-06-12] MEDS: Metoprolol Tartrate 50mg tab ORAL SCH ×2 (09:00→20:30)
[2018-06-12] MEDS: Miconazole 2% Cream 30gm TOPIC SCH ×2 (09:00→18:13)
[2018-06-12] MEDS: Enoxaparin 80mg Inj SUBQ SCH (09:00)
[2018-06-12] MEDS: Aspirin Baby 81mg ORAL SCH (09:00)
--- NOTE | 2018-06-12 10:00 | NUR ---
NURSE NOTES: Turned and cleaned patient. VSS. will continue to monitor.
--- NOTE | 2018-06-12 12:00 | NUR ---
NURSE NOTES: Daughter at bedside. explained to her plan of care.
--- NOTE | 2018-06-12 12:04 | Infectious Diseases Prog Note ---
"Assessment/Plan Assessment/Plan antibiotics : zosyn A 1. klebsiella | streptococcus pneumonia 2. herpes of lip s/p rx 3. diabetic ketoacidosis resolved 4. respiratory failure 5. hypertension 6. leucocytosis improving 7. renal failure P 1. continue zosyn 2. will follow up cultures Subjective ROS Limited/Unobtainable: Yes Allergies: Coded Allergies: SHELLFISH DERIVED (Verified Allergy, Unknown, swelling and itchiness, 05/14) Objective Vital Signs Last 24 Hour Vital Signs Date Time Temp Pulse Resp B/P (MAP) Pulse Ox O2 Delivery O2 Flow Rate FiO2 06/12/18 10:50 73 20 98 Full Face 35 06/12/18 10:00 82 19 138/67 (90) 97 06/12/18 09:40 72 24 98 Full Face 35 06/12/18 09:00 80 19 140/68 (92) 97 06/12/18 09:00 74 148/68 06/12/18 09:00 74 148/68 06/12/18 08:00 98.4 73 22 135/64 (87) 98 06/12/18 08:00 35 06/12/18 08:00 82 06/12/18 07:10 99 Bi-pap 35 06/12/18 07:10 Bi-pap 35 06/12/18 07:10 74 25 Bi-pap 35 06/12/18 07:10 75 22 99 Full Face 35 06/12/18 07:00 74 19 148/68 (94) 97 06/12/18 06:30 133/63 06/12/18 06:00 77 22 133/63 (86) 97 06/12/18 05:30 74 23 98 Full Face 35 06/12/18 05:24 78 27 134/59 (84) 96 06/12/18 05:00 78 25 73/55 (61) 96 06/12/18 04:00 35 06/12/18 04:00 98.4 73 22 138/64 (88) 98 06/12/18 04:00 77 06/12/18 03:45 70 23 96 Full Face 35 06/12/18 03:00 73 27 133/75 (94) 97 06/12/18 02:00 73 21 140/68 (92) 97 06/12/18 01:30 68 23 97 Full Face 35 2/23/19 01:00 71 21 121/53 (75) 97 06/12/18 00:00 35 06/12/18 00:00 98.7 74 23 100/59 (73) 95 06/12/18 00:00 80 06/12/18 00:00 100/59 06/11/18 23:05 81 28 92 Full Face 35 06/11/18 23:00 74 23 130/100 (110) 95 06/11/18 22:00 72 20 137/56 (83) 96 06/11/18 21:50 78 21 99 Full Face 35 06/11/18 21:15 98 133/67 06/11/18 21:00 88 19 125/77 (93) 96 06/11/18 20:24 84 22 98 Full Face 35 06/11/18 20:23 98 Bi-pap 35 06/11/18 20:23 79 25 Bi-pap 35 06/11/18 20:23 Bi-pap 35 06/11/18 20:00 98.5 81 21 133/67 (89) 97 06/11/18 20:00 78 06/11/18 20:00 35 06/11/18 19:00 81 19 125/58 (80) 100 06/11/18 18:07 67 117/54 06/11/18 18:06 115/53 06/11/18 18:00 72 19 117/54 (75) 100 06/11/18 17:24 67 20 98 Full Face 35 06/11/18 17:00 62 16 115/53 (73) 100 06/11/18 16:12 35 06/11/18 16:00 69 06/11/18 16:00 97.9 78 17 111/56 (74) 100 06/11/18 15:05 69 20 100 Full Face 35 06/11/18 15:00 69 18 108/49 (68) 99 06/11/18 14:00 72 20 115/55 (75) 92 06/11/18 13:14 68 21 100 Full Face 35 06/11/18 13:06 99.2 72 18 111/57 (75) 100 Height (Feet): 4 Height (Inches): 10.00 Weight (Pounds): 166 HEENT: other - on bipap Respiratory/Chest: lungs clear Cardiovascular: normal rate, regular rhythm, no gallop/murmur Abdomen: soft, non tender Extremities: other - + edema, left arm PICC Laboratory Tests Test 06/12/18 04:00 Magnesium Level 2.3 MG/DL (1.8-2.4) Current Medications Medications (Trade) Dose Ordered Sig/Ellen Route PRN Reason Start Time Stop Time Status Last Admin Dose Admin Acetaminophen (Tylenol) 650 mg Q4H PRN ORAL Mild Pain/Temp > 100.5 06/08/18 15:00 07/02/18 14:59 Al Hydroxide/Mg Hydroxide (Mylanta) 30 ml Q6H PRN ORAL Abdominal cramps 06/08/18 15:00 07/02/18 14:59 Amlodipine Besylate (Norvasc) 5 mg BID ORAL 06/08/18 18:00 06/28/18 08:59 06/12/18 09:00 Aspirin (ASA) 81 mg DAILY ORAL 06/09/18 09:00 06/24/18 08:59 06/12/18 09:00 Chlorhexidine Gluconate (Leora-Hex 2%) 1 applic DAILY@2000 TOPIC 06/08/18 20:00 06/24/18 19:59 06/11/18 21:15 Dextrose (Dextrose 50%) 25 ml Q30M PRN IV Hypoglycemia 06/08/18 15:15 06/13/18 10:14 Dextrose (Dextrose 50%) 50 ml Q30M PRN IV Hypoglycemia 06/08/18 15:15 06/13/18 10:14 Dextrose/Sodium Chloride 1,000 ml @ 50 mls/hr Q20H IV 06/11/18 09:00 07/11/18 08:59 06/12/18 04:01 Enoxaparin Sodium (Lovenox) 80 mg Q24H SUBQ 06/09/18 09:00 07/03/18 08:59 06/12/18 09:00 Haloperidol Lactate (Haldol) 5 mg Q6H PRN IM Agitation 06/08/18 15:00 07/02/18 14:59 Hydralazine HCl (Apresoline) 25 mg Q6HR ORAL 06/08/18 18:00 07/02/18 00:00 06/12/18 06:30 Insulin Aspart (NovoLOG) BEFORE MEALS AND HS SUBQ 06/08/18 16:30 07/08/18 16:29 06/12/18 06:31 Lansoprazole (Prevacid) 30 mg DAILY GT 06/11/18 09:00 07/11/18 08:59 06/12/18 09:00 Magnesium Hydroxide (Mom) 30 ml DAILYPRN PRN ORAL Constipation 06/08/18 15:00 07/02/18 14:59 Metoprolol Tartrate (Lopressor) 5 mg Q2H PRN IVP For High Blood Pressure 06/08/18 15:00 06/23/18 16:59 Metoprolol Tartrate (Lopressor) 50 mg Q12HR ORAL 06/08/18 21:00 06/26/18 20:59 06/12/18 09:00 Miconazole Nitrate (Miconazole Nitrate) 1 applic BID TOPIC 06/09/18 18:30 07/09/18 18:29 06/12/18 09:00 Olanzapine (ZyPREXA) 2.5 mg BEDTIME ORAL 06/08/18 21:00 07/01/18 20:59 06/11/18 21:15 Piperacillin Sod/ Tazobactam Sod 3.375 gm/Dextrose 110 ml @ 27.5 mls/hr Q8HR IVPB 06/09/18 14:00 06/16/18 13:59 06/12/18 06:30 Khadra Melendez MD Jun 12, 2018 12:04"
--- NOTE | 2018-06-12 13:03 | Pulmonolgy Critical Care Note ---
Critical Care - Asmt/Plan Assessment/Plan: Pulmonary CCM Progress Note Assessment/Plan Impression Diabetic ketoacidosis In ICU for Resp Failure/shortness of breath, on BiPAP For NGT On IVF Anemia Transaminitis of unclear etiology Severe protein calorie malnutrition Evidence of pancreatitis, better Acute renal failure, improved Hyperglycemia Diabetes Hyponatremia Metabolic acidosis Hypercholesterolemia fever oral ulcers afib with RVR leukopenia pancreatitis CVA pleural effusions d/w family about GT- await decision needs nutrition on antibiotics with + cultures; per ID on lovenox ? eliquis 3rd spacing at present, diurese PRN care noted; will need rehab with current status still very weak swallow evaluation pending impression, plan, and exam edited and reviewed in detail care discussed with RN Subjective Allergies: Coded Allergies: SHELLFISH DERIVED (Verified Allergy, Unknown, swelling and itchiness, 05/14) Subjective care noted not eating well NAD still lethargic Objective Vital Signs Noted Laboratory Tests 06/08/18 04:45: White Blood Count 16.5H, Red Blood Count 3.26L, Hemoglobin 9.4L, Hematocrit 28.8L, Mean Corpuscular Volume 88, Mean Corpuscular Hemoglobin 28.8, Mean Corpuscular Hemoglobin Concent 32.6, Red Cell Distribution Width 20.9H, Platelet Count 245, Mean Platelet Volume 7.3, Neutrophils (%) (Auto) 84.7H, Lymphocytes (%) (Auto) 5.7L, Monocytes (%) (Auto) 7.7, Eosinophils (%) (Auto) 0.6, Basophils (%) (Auto) 1.3, Sodium Level 145, Potassium Level 3.7, Chloride Level 109H, Carbon Dioxide Level 24, Anion Gap 12, Blood Urea Nitrogen 27H, Creatinine 1.8H, Estimat Glomerular Filtration Rate 27.8, Glucose Level 207H, Calcium Level 8.1L 06/08/18 05:00: Stool Occult Blood Negative Height (Feet): 4 Height (Inches): 10.00 Weight (Pounds): 180 Objective WDWN lethargic clear breath sounds bilaterally without rhonchi or wheeze S1S2 RRR without MRG NABS nontender no HSM no CC, mild edema remains weak Critical Care - Objective Last 24 Hour Vital Signs Date Time Temp Pulse Resp B/P (MAP) Pulse Ox O2 Delivery O2 Flow Rate FiO2 06/12/18 12:00 102/67 2/23/19 10:50 73 20 98 Full Face 35 06/12/18 10:00 82 19 138/67 (90) 97 06/12/18 09:40 72 24 98 Full Face 35 06/12/18 09:00 80 19 140/68 (92) 97 06/12/18 09:00 74 148/68 06/12/18 09:00 74 148/68 06/12/18 08:00 98.4 73 22 135/64 (87) 98 06/12/18 08:00 35 06/12/18 08:00 82 06/12/18 07:10 99 Bi-pap 35 06/12/18 07:10 Bi-pap 35 06/12/18 07:10 74 25 Bi-pap 35 06/12/18 07:10 75 22 99 Full Face 35 06/12/18 07:00 74 19 148/68 (94) 97 06/12/18 06:30 133/63 06/12/18 06:00 77 22 133/63 (86) 97 06/12/18 05:30 74 23 98 Full Face 35 06/12/18 05:24 78 27 134/59 (84) 96 06/12/18 05:00 78 25 73/55 (61) 96 06/12/18 04:00 35 06/12/18 04:00 98.4 73 22 138/64 (88) 98 06/12/18 04:00 77 06/12/18 03:45 70 23 96 Full Face 35 06/12/18 03:00 73 27 133/75 (94) 97 06/12/18 02:00 73 21 140/68 (92) 97 06/12/18 01:30 68 23 97 Full Face 35 06/12/18 01:00 71 21 121/53 (75) 97 06/12/18 00:00 35 06/12/18 00:00 98.7 74 23 100/59 (73) 95 06/12/18 00:00 80 06/12/18 00:00 100/59 06/11/18 23:05 81 28 92 Full Face 35 06/11/18 23:00 74 23 130/100 (110) 95 06/11/18 22:00 72 20 137/56 (83) 96 06/11/18 21:50 78 21 99 Full Face 35 06/11/18 21:15 98 133/67 06/11/18 21:00 88 19 125/77 (93) 96 06/11/18 20:24 84 22 98 Full Face 35 06/11/18 20:23 98 Bi-pap 35 06/11/18 20:23 79 25 Bi-pap 35 06/11/18 20:23 Bi-pap 35 06/11/18 20:00 98.5 81 21 133/67 (89) 97 06/11/18 20:00 78 06/11/18 20:00 35 06/11/18 19:00 81 19 125/58 (80) 100 06/11/18 18:07 67 117/54 06/11/18 18:06 115/53 06/11/18 18:00 72 19 117/54 (75) 100 06/11/18 17:24 67 20 98 Full Face 35 06/11/18 17:00 62 16 115/53 (73) 100 06/11/18 16:12 35 06/11/18 16:00 69 06/11/18 16:00 97.9 78 17 111/56 (74) 100 06/11/18 15:05 69 20 100 Full Face 35 06/11/18 15:00 69 18 108/49 (68) 99 06/11/18 14:00 72 20 115/55 (75) 92 06/11/18 13:14 68 21 100 Full Face 35 06/11/18 13:06 99.2 72 18 111/57 (75) 100 Accucheck: 219 Critical Care - Subjective ROS Limited/Unobtainable: No FI02: 35 Vent Support Mode: BiLevel Sputum Amount: None Tube Feeding Amount: 45 I&O: Intake and Output 06/11/18 06/12/18 19:00 07:00 Intake Total 50 ml 710.0 ml Output Total 8 ml 200 ml Balance 42 ml 510.0 ml IV Total 50 ml 710.0 ml Output Urine Total 6 ml 200 ml Stool Total 2 ml # Voids 3 # Bowel Movements 1 Gulshan Landry MD Jun 12, 2018 13:03
--- NOTE | 2018-06-12 14:00 | NUR ---
NURSE NOTES: Dr. Landry rounded on patient- no new orders.
--- NOTE | 2018-06-12 16:00 | NUR ---
NURSE NOTES: turned and cleaned patient. VSS. will continue plan of care.
--- NOTE | 2018-06-12 16:12 | General Progress Note ---
Assessment/Plan Assessment/Plan Assessment - Respiratory failure - Acute pancreatitis - Anemia - Leukocytosis - dysphagia - Azotemia - Urolithiasis - UTI - Cholelithiasis - DM - CAD/CABG - Gout Recommendations - pulmonary f/u - BIPAP - not stable for NGT - Possible PEG if family agree - follow labs and exam Subjective Allergies: Coded Allergies: SHELLFISH DERIVED (Verified Allergy, Unknown, swelling and itchiness, 05/14) Subjective On BIPAP confused, restrained d/w ICU nurse Objective Last 24 Hour Vital Signs Date Time Temp Pulse Resp B/P (MAP) Pulse Ox O2 Delivery O2 Flow Rate FiO2 06/12/18 14:55 71 18 99 Full Face 35 06/12/18 13:21 70 18 99 Full Face 35 06/12/18 12:00 102/67 06/12/18 10:50 73 20 98 Full Face 35 06/12/18 10:00 82 19 138/67 (90) 97 06/12/18 09:40 72 24 98 Full Face 35 06/12/18 09:00 80 19 140/68 (92) 97 06/12/18 09:00 74 148/68 06/12/18 09:00 74 148/68 06/12/18 08:00 98.4 73 22 135/64 (87) 98 06/12/18 08:00 35 06/12/18 08:00 82 06/12/18 07:10 99 Bi-pap 35 06/12/18 07:10 Bi-pap 35 06/12/18 07:10 74 25 Bi-pap 35 06/12/18 07:10 75 22 99 Full Face 35 06/12/18 07:00 74 19 148/68 (94) 97 06/12/18 06:30 133/63 06/12/18 06:00 77 22 133/63 (86) 97 06/12/18 05:30 74 23 98 Full Face 35 06/12/18 05:24 78 27 134/59 (84) 96 06/12/18 05:00 78 25 73/55 (61) 96 06/12/18 04:00 35 06/12/18 04:00 98.4 73 22 138/64 (88) 98 06/12/18 04:00 77 06/12/18 03:45 70 23 96 Full Face 35 06/12/18 03:00 73 27 133/75 (94) 97 06/12/18 02:00 73 21 140/68 (92) 97 06/12/18 01:30 68 23 97 Full Face 35 06/12/18 01:00 71 21 121/53 (75) 97 06/12/18 00:00 35 06/12/18 00:00 98.7 74 23 100/59 (73) 95 06/12/18 00:00 80 06/12/18 00:00 100/59 06/11/18 23:05 81 28 92 Full Face 35 06/11/18 23:00 74 23 130/100 (110) 95 06/11/18 22:00 72 20 137/56 (83) 96 06/11/18 21:50 78 21 99 Full Face 35 06/11/18 21:15 98 133/67 06/11/18 21:00 88 19 125/77 (93) 96 06/11/18 20:24 84 22 98 Full Face 35 06/11/18 20:23 98 Bi-pap 35 06/11/18 20:23 79 25 Bi-pap 35 06/11/18 20:23 Bi-pap 35 06/11/18 20:00 98.5 81 21 133/67 (89) 97 06/11/18 20:00 78 06/11/18 20:00 35 06/11/18 19:00 81 19 125/58 (80) 100 06/11/18 18:07 67 117/54 06/11/18 18:06 115/53 06/11/18 18:00 72 19 117/54 (75) 100 06/11/18 17:24 67 20 98 Full Face 35 06/11/18 17:00 62 16 115/53 (73) 100 06/11/18 16:12 35 Intake and Output 06/11/18 06/12/18 19:00 07:00 Intake Total 50 ml 710.0 ml Output Total 8 ml 200 ml Balance 42 ml 510.0 ml IV Total 50 ml 710.0 ml Output Urine Total 6 ml 200 ml Stool Total 2 ml # Voids 3 # Bowel Movements 1 Laboratory Tests 06/12/18 04:00: Magnesium Level 2.3 Height (Feet): 4 Height (Inches): 10.00 Weight (Pounds): 166 Objective WDWN NCAT,(+) BIPAP Neck supple Coarse BS RRR abd soft, ND restrained, confused Mary Jewell MD Jun 12, 2018 16:12
--- NOTE | 2018-06-12 17:45 | NUR ---
RESPIRATORY NOTE: Received pt on BiPAP settings stable. Skin barrier tape is on place. No redness or skin breakdown noted. BiPAP mask removed to offset pressure throughout shift. BiPAP alarms are on and audible. BiPAP is plugged into red outlet. Will monitor pt progress.
--- NOTE | 2018-06-12 19:07 | NUR ---
HAND-OFF: Report given to WAYNE Sevilla.
--- NOTE | 2018-06-12 19:25 | NUR ---
NURSE NOTES: Report received from Marzena BLACK. Pt is alert and oriented 2-3 with episode of forgetful, reality orientation provided. On bilateral soft wrist restraints. On Bi-pap 15/5, 35%. O2 sat 100%. No acute respiratory distress noted. Purewick in placed. Left UA PICC line intact no s/s of infiltration Running D5 1/2 NS at 50cc/hr. bed locked and in lowest position. Family at bedside. Bed alarm on, Call light within reach. Will continue plan of care
[2018-06-12] MEDS: Dyna-Hex 2% Top Sol 2oz TOPIC SCH (20:23)
[2018-06-12] MEDS: OLANZapine 2.5mg tab ORAL SCH (20:30)
--- NOTE | 2018-06-12 21:30 | NUR ---
NURSE NOTES: Patient in bed awake,alert able to verbalize needs to staff. family at bedside. No s/s of hypo/hyperglycemia.
--- NOTE | 2018-06-12 23:30 | NUR ---
NURSE NOTES: CHG bath given. Oral care done. Patient awake, no complain of pain or discomfort. Skin warm and dry to touch. No s/s of hypo/hyperglycemia. Bilateral soft wrist restraint checked every 2 hours. Will continue plan of care.
--- NOTE | 2018-06-12 23:45 | Cardiology Progress Note ---
Assessment/Plan Assessment/Plan 1. Paroxysmal atrial fibrillation, in ST now, due to CHADS-VASC score of 5, continue enoxaparin and metoprolol. 2. Hx of CAD, s/p CABG, ASA , atorvastatin and metoprolol. No wall motion abnormalities on Echo, LVEF ~55%. 3. Sinus tachycardia due to hypovolemia. 4. DKA, resolved. 5. DM 6. HTN, well controlled, continue amlodipine, metoprolol and hydralazine. 7. Severe pulmonary HTN. 8. MAMADOU, creatinine up to 1.9. 9. Hypokalemia, resolved, K at 4.1. Subjective Subjective Sinus rhythm at rate of 69. On full face mask oxygen. Objective Last 24 Hour Vital Signs Date Time Temp Pulse Resp B/P (MAP) Pulse Ox O2 Delivery O2 Flow Rate FiO2 06/12/18 22:00 69 23 129/65 (86) 99 06/12/18 21:30 66 20 98 Full Face 35 06/12/18 21:00 67 20 130/63 (85) 97 06/12/18 20:30 80 123/54 06/12/18 20:00 86 06/12/18 20:00 35 06/12/18 20:00 81 25 123/54 (77) 98 06/12/18 19:27 98 Bi-pap 35 06/12/18 19:27 Bi-pap 35 06/12/18 19:27 76 23 98 Full Face 35 06/12/18 19:26 93 25 Bi-pap 35 06/12/18 19:00 74 19 115/69 (84) 97 06/12/18 18:13 79 110/80 06/12/18 18:12 110/80 06/12/18 18:00 79 19 110/80 (90) 97 06/12/18 17:00 82 19 102/88 (93) 97 06/12/18 16:33 82 19 98 Full Face 35 06/12/18 16:00 35 06/12/18 16:00 69 06/12/18 16:00 98.4 80 22 120/64 (82) 98 06/12/18 15:00 82 19 110/67 (81) 97 06/12/18 14:55 71 18 99 Full Face 35 06/12/18 14:00 83 19 139/56 (83) 97 06/12/18 13:21 70 18 99 Full Face 35 06/12/18 13:00 82 19 119/67 (84) 97 06/12/18 12:00 35 06/12/18 12:00 102/67 06/12/18 12:00 79 06/12/18 12:00 98.4 79 22 126/71 (89) 98 06/12/18 11:00 85 19 135/60 (85) 97 06/12/18 10:50 73 20 98 Full Face 35 06/12/18 10:00 82 19 138/67 (90) 97 06/12/18 09:40 72 24 98 Full Face 35 06/12/18 09:00 80 19 140/68 (92) 97 06/12/18 09:00 74 148/68 06/12/18 09:00 74 148/68 06/12/18 08:00 98.4 73 22 135/64 (87) 98 06/12/18 08:00 35 06/12/18 08:00 82 06/12/18 07:10 99 Bi-pap 35 06/12/18 07:10 Bi-pap 35 06/12/18 07:10 74 25 Bi-pap 35 06/12/18 07:10 75 22 99 Full Face 35 06/12/18 07:00 74 19 148/68 (94) 97 06/12/18 06:30 133/63 06/12/18 06:00 77 22 133/63 (86) 97 06/12/18 05:30 74 23 98 Full Face 35 06/12/18 05:24 78 27 134/59 (84) 96 06/12/18 05:00 78 25 73/55 (61) 96 06/12/18 04:00 35 06/12/18 04:00 98.4 73 22 138/64 (88) 98 06/12/18 04:00 77 06/12/18 03:45 70 23 96 Full Face 35 06/12/18 03:00 73 27 133/75 (94) 97 06/12/18 02:00 73 21 140/68 (92) 97 06/12/18 01:30 68 23 97 Full Face 35 06/12/18 01:00 71 21 121/53 (75) 97 06/12/18 00:00 35 2/23/19 00:00 98.7 74 23 100/59 (73) 95 06/12/18 00:00 80 06/12/18 00:00 100/59 Intake and Output 06/11/18 06/12/18 19:00 07:00 Intake Total 50 ml 710.0 ml Output Total 8 ml 200 ml Balance 42 ml 510.0 ml IV Total 50 ml 710.0 ml Output Urine Total 6 ml 200 ml Stool Total 2 ml # Voids 3 # Bowel Movements 1 2D Echo: EF55%,Mild LVH,Mod MR,Mild AR,RVSP 67 mmHg (severe PHT),Restrictive LV phy Laboratory Tests Test 06/12/18 04:00 Magnesium Level 2.3 MG/DL (1.8-2.4) Objective HEENT: Normocephalic, atraumatic, Pupils equally reactive to light and accommodation, EOMI. NECK: No JVD, no carotid bruit. CARDIOVASCULAR: Regular rate and rhythm. No murmurs, gallops or rubs. LUNGS: Clear to auscultation bilaterally. No crackles or Rhonchi. ABDOMEN: Soft and nontender. No organomegaly, + BS. EXTREMITIES: No cyanosis, clubbing or edema. Miller Mckeon MD Jun 12, 2018 23:45
[2018-06-13] VITALS (24 sets, daily range): BP systolic 91–136; BP diastolic 43–93
[2018-06-13] MEDS: D5 1/2NS 1,000 ML IV SCH (00:30)
[2018-06-13] MEDS: HydrALAZINE 25mg tab ORAL SCH ×4 (00:30→17:56)
--- NOTE | 2018-06-13 01:30 | NUR ---
NURSE NOTES: patient in bed sleeping comfortably. No s/s of acute distress noted. BIPAP 15/5 Fi02 40% satting 100%. Repositioned. Kept clean and dry. Will continue plan of care.
--- NOTE | 2018-06-13 03:30 | NUR ---
NURSE NOTES: Patient repositioned and oral care done. no s/s of hypo/hyperglycemia. denies any pi or discomfort. Will continue plan of care.
--- NOTE | 2018-06-13 05:00 | NUR ---
NURSE NOTES: Bed bath given. Repositioned.
[2018-06-13] MEDS: Piperacillin/Tazobactam 3.375 GM in D5W 110 ML IVPB SCH ×3 (06:00→21:01)
[2018-06-13] MEDS: NovoLOG Insulin Flexpen SUBQ SCH ×4 (06:30→20:57)
[2018-06-13 06:46] LABS: ANION GAP 11 mmol/L (5-15); BLOOD UREA NITROGEN 29 mg/dL (7-18); CALCIUM 8.3 MG/DL (8.5-10.1); CARBON DIOXIDE 27 MMOL/L (21-32); CHLORIDE 115 MMOL/L (98-107); CREATININE 1.8 MG/DL (0.55-1.30); POTASSIUM 3.1 MMOL/L (3.5-5.1); SODIUM 152 MMOL/L (136-145)
--- NOTE | 2018-06-13 06:59 | NUR ---
RESPIRATORY NOTE: Patient received on BiPAP with current ordered settings. Cleaned and re-taped face with foam tape for extra skin barrier before full face mask placement. There is no redness or skin breakdown noted at this time and will continue to monitor. BiPAP is connected to a red outlet and the the alarms are functional and audible.
--- NOTE | 2018-06-13 07:05 | NUR ---
HAND-OFF: Report given to Zita BLACK.
--- NOTE | 2018-06-13 08:00 | NUR ---
NURSE NOTES: Pt is alert and oriented 2-3 with episode of forgetful, reality orientation provided. On bilateral soft wrist restraints. On Bi-pap 15/, 35%. O2 sat 100%. No acute respiratory distress noted. Purewick in placed. Left UA PICC line intact no s/s of infiltration Running D5 1/2 NS at 50cc/hr. bed locked and in lowest position. Family at bedside. Bed alarm on, Call light within reach, bed on lowest position. Will continue plan of care.
[2018-06-13] MEDS: Metoprolol Tartrate 50mg tab ORAL SCH ×2 (08:30→20:53)
[2018-06-13] MEDS: Aspirin Baby 81mg ORAL SCH (08:31)
[2018-06-13] MEDS: Enoxaparin 80mg Inj SUBQ SCH (08:59)
[2018-06-13] MEDS: Miconazole 2% Cream 30gm TOPIC SCH ×2 (08:59→17:57)
--- NOTE | 2018-06-13 09:31 | NUR ---
CASE MANAGEMENT: REVIEW SI: PANCREATITIS . ANEMIA . CHOLELITHIASIS EGD AND EUS 05/24 T 98.4 HR 67 RR 23 BP 91/65 SAT 98% BIPAP FIO2 35 NA 152 K 3.1 BUN 29 CR 1.8 IS: ZOSYN IV Q8HR ASA PO QD LOVENOX SQ Q24HR LOPRESSOR PO Q12HR INSULIN SQ AC/HS ICU STATUS DCP: PATIENT IS FROM HOME
--- NOTE | 2018-06-13 10:00 | NUR ---
NURSE NOTES: Patient turned and repositioned. Dr. Jewell at bedside - Dawood Smith inserted by . Stat KUB order obtained. Will continue plan of care.
--- NOTE | 2018-06-13 10:56 | Infectious Diseases Prog Note ---
Assessment/Plan Assessment/Plan A 1. pancreatitis, EUS negative 2. herpes of lip 3. DM 4. increased LFT 5. fever resolved 6. hypertension 7. Anemia 10. Hypoxemic respiratory failure 11. Pneumonia with Klebsiella & strep Group B P 1. continue Zosyn Subjective ROS Limited/Unobtainable: Yes Neurologic: Reports: confusion, other - on restraint Allergies: Coded Allergies: SHELLFISH DERIVED (Verified Allergy, Unknown, swelling and itchiness, 05/14) Objective Vital Signs Last 24 Hour Vital Signs Date Time Temp Pulse Resp B/P (MAP) Pulse Ox O2 Delivery O2 Flow Rate FiO2 06/13/18 10:00 81 22 117/70 (86) 99 06/13/18 09:00 85 19 108/52 (70) 99 06/13/18 08:54 81 19 100 Full Face 35 06/13/18 08:30 80 103/45 06/13/18 08:30 80 103/45 06/13/18 08:00 98.5 77 19 104/43 (63) 99 06/13/18 08:00 35 06/13/18 08:00 77 06/13/18 07:00 74 19 91/65 (74) 99 06/13/18 06:58 67 23 Bi-pap 35 06/13/18 06:58 Bi-pap 35 06/13/18 06:57 98 Bi-pap 35 06/13/18 06:55 67 23 98 Full Face 35 06/13/18 06:52 121/62 06/13/18 06:00 78 18 121/62 (81) 98 06/13/18 05:26 75 20 98 Full Face 35 06/13/18 05:00 69 18 112/62 (79) 98 06/13/18 04:03 98.4 79 19 107/64 (78) 99 06/13/18 04:00 35 06/13/18 04:00 71 06/13/18 03:30 60 25 96 Facial 35 06/13/18 03:00 78 23 95/77 (83) 95 06/13/18 02:00 76 20 125/45 (71) 96 06/13/18 01:30 62 28 97 Facial 35 06/13/18 01:00 76 21 125/58 (80) 95 06/13/18 00:30 136/53 2/24/19 00:00 78 06/13/18 00:00 98.1 70 21 136/53 (80) 97 06/13/18 00:00 35 06/12/18 23:30 59 30 96 Facial 35 06/12/18 23:00 74 20 128/72 (90) 97 06/12/18 22:00 69 23 129/65 (86) 99 06/12/18 21:30 66 20 98 Full Face 35 06/12/18 21:00 67 20 130/63 (85) 97 06/12/18 20:30 80 123/54 06/12/18 20:00 86 06/12/18 20:00 35 06/12/18 20:00 81 25 123/54 (77) 98 06/12/18 19:27 98 Bi-pap 35 06/12/18 19:27 Bi-pap 35 06/12/18 19:27 76 23 98 Full Face 35 06/12/18 19:26 93 25 Bi-pap 35 06/12/18 19:00 74 19 115/69 (84) 97 06/12/18 18:13 79 110/80 06/12/18 18:12 110/80 06/12/18 18:00 79 19 110/80 (90) 97 06/12/18 17:00 82 19 102/88 (93) 97 06/12/18 16:33 82 19 98 Full Face 35 06/12/18 16:00 35 06/12/18 16:00 69 06/12/18 16:00 98.4 80 22 120/64 (82) 98 06/12/18 15:00 82 19 110/67 (81) 97 06/12/18 14:55 71 18 99 Full Face 35 06/12/18 14:00 83 19 139/56 (83) 97 06/12/18 13:21 70 18 99 Full Face 35 06/12/18 13:00 82 19 119/67 (84) 97 06/12/18 12:00 35 06/12/18 12:00 102/67 06/12/18 12:00 79 06/12/18 12:00 98.4 79 22 126/71 (89) 98 06/12/18 11:00 85 19 135/60 (85) 97 Height (Feet): 4 Height (Inches): 10.00 Weight (Pounds): 167 HEENT: other - on BIPAP Respiratory/Chest: decreased breath sounds Cardiovascular: normal rate Abdomen: soft, non tender, other - NGtube feeding Extremities: no edema, other - 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 Neurologic/Psychiatric: alert, responsive Laboratory Tests Test 06/13/18 04:30 Sodium Level 152 MMOL/L (136-145) H Potassium Level 3.1 MMOL/L (3.5-5.1) L Chloride Level 115 MMOL/L (98-107) H Carbon Dioxide Level 27 MMOL/L (21-32) Anion Gap 11 mmol/L (5-15) Blood Urea Nitrogen 29 mg/dL (7-18) H Creatinine 1.8 MG/DL (0.55-1.30) H Estimat Glomerular Filtration Rate 27.8 mL/min (>60) Glucose Level 109 MG/DL (74-106) H Calcium Level 8.3 MG/DL (8.5-10.1) L Current Medications Medications (Trade) Dose Ordered Sig/Ellen Route PRN Reason Start Time Stop Time Status Last Admin Dose Admin Acetaminophen (Tylenol) 650 mg Q4H PRN ORAL Mild Pain/Temp > 100.5 06/08/18 15:00 07/02/18 14:59 Al Hydroxide/Mg Hydroxide (Mylanta) 30 ml Q6H PRN ORAL Abdominal cramps 06/08/18 15:00 07/02/18 14:59 Amlodipine Besylate (Norvasc) 5 mg BID ORAL 06/08/18 18:00 06/28/18 08:59 06/12/18 18:13 Aspirin (ASA) 81 mg DAILY ORAL 06/09/18 09:00 06/24/18 08:59 06/12/18 09:00 Chlorhexidine Gluconate (Leora-Hex 2%) 1 applic DAILY@2000 TOPIC 06/08/18 20:00 06/24/18 19:59 06/12/18 20:23 Dextrose/Sodium Chloride 1,000 ml @ 50 mls/hr Q20H IV 06/11/18 09:00 07/11/18 08:59 06/13/18 00:30 Enoxaparin Sodium (Lovenox) 80 mg Q24H SUBQ 06/09/18 09:00 07/03/18 08:59 06/13/18 08:59 Haloperidol Lactate (Haldol) 5 mg Q6H PRN IM Agitation 06/08/18 15:00 07/02/18 14:59 Hydralazine HCl (Apresoline) 25 mg Q6HR ORAL 06/08/18 18:00 07/02/18 00:00 06/13/18 06:52 Insulin Aspart (NovoLOG) BEFORE MEALS AND HS SUBQ 06/08/18 16:30 07/08/18 16:29 06/12/18 20:24 Lansoprazole (Prevacid) 30 mg DAILY GT 06/11/18 09:00 07/11/18 08:59 06/12/18 09:00 Magnesium Hydroxide (Mom) 30 ml DAILYPRN PRN ORAL Constipation 06/08/18 15:00 07/02/18 14:59 Metoprolol Tartrate (Lopressor) 5 mg Q2H PRN IVP For High Blood Pressure 06/08/18 15:00 06/23/18 16:59 Metoprolol Tartrate (Lopressor) 50 mg Q12HR ORAL 06/08/18 21:00 06/26/18 20:59 06/12/18 20:30 Miconazole Nitrate (Miconazole Nitrate) 1 applic BID TOPIC 06/09/18 18:30 07/09/18 18:29 06/13/18 08:59 Olanzapine (ZyPREXA) 2.5 mg BEDTIME ORAL 06/08/18 21:00 07/01/18 20:59 06/12/18 20:30 Piperacillin Sod/ Tazobactam Sod 3.375 gm/Dextrose 110 ml @ 27.5 mls/hr Q8HR IVPB 06/09/18 14:00 06/16/18 13:59 06/13/18 06:00 Mahesh Tejada MD Jun 13, 2018 10:56
--- NOTE | 2018-06-13 11:23 | Nephrology Progress Note ---
Assessment/Plan Plan Hypernatremia - hold TF. Started on D5W! Subjective Subjective Asked to resume f/u. Patienr seen a Month ago. Back in ICU on BIPAP. Objective Objective Last 24 Hour Vital Signs Date Time Temp Pulse Resp B/P (MAP) Pulse Ox O2 Delivery O2 Flow Rate FiO2 06/13/18 11:16 100/68 06/13/18 11:04 84 23 100 Full Face 35 06/13/18 11:00 80 22 100/58 (72) 99 06/13/18 10:00 81 22 117/70 (86) 99 06/13/18 09:00 85 19 108/52 (70) 99 06/13/18 08:54 81 19 100 Full Face 35 06/13/18 08:30 80 103/45 06/13/18 08:30 80 103/45 06/13/18 08:00 98.5 77 19 104/43 (63) 99 06/13/18 08:00 35 06/13/18 08:00 77 06/13/18 07:00 74 19 91/65 (74) 99 06/13/18 06:58 67 23 Bi-pap 35 06/13/18 06:58 Bi-pap 35 06/13/18 06:57 98 Bi-pap 35 06/13/18 06:55 67 23 98 Full Face 35 06/13/18 06:52 121/62 06/13/18 06:00 78 18 121/62 (81) 98 06/13/18 05:26 75 20 98 Full Face 35 06/13/18 05:00 69 18 112/62 (79) 98 06/13/18 04:03 98.4 79 19 107/64 (78) 99 06/13/18 04:00 35 06/13/18 04:00 71 06/13/18 03:30 60 25 96 Facial 35 06/13/18 03:00 78 23 95/77 (83) 95 06/13/18 02:00 76 20 125/45 (71) 96 06/13/18 01:30 62 28 97 Facial 35 06/13/18 01:00 76 21 125/58 (80) 95 06/13/18 00:30 136/53 06/13/18 00:00 78 06/13/18 00:00 98.1 70 21 136/53 (80) 97 06/13/18 00:00 35 06/12/18 23:30 59 30 96 Facial 35 06/12/18 23:00 74 20 128/72 (90) 97 06/12/18 22:00 69 23 129/65 (86) 99 06/12/18 21:30 66 20 98 Full Face 35 06/12/18 21:00 67 20 130/63 (85) 97 06/12/18 20:30 80 123/54 06/12/18 20:00 86 06/12/18 20:00 35 06/12/18 20:00 81 25 123/54 (77) 98 06/12/18 19:27 98 Bi-pap 35 06/12/18 19:27 Bi-pap 35 06/12/18 19:27 76 23 98 Full Face 35 06/12/18 19:26 93 25 Bi-pap 35 06/12/18 19:00 74 19 115/69 (84) 97 06/12/18 18:13 79 110/80 06/12/18 18:12 110/80 06/12/18 18:00 79 19 110/80 (90) 97 06/12/18 17:00 82 19 102/88 (93) 97 06/12/18 16:33 82 19 98 Full Face 35 06/12/18 16:00 35 06/12/18 16:00 69 06/12/18 16:00 98.4 80 22 120/64 (82) 98 06/12/18 15:00 82 19 110/67 (81) 97 06/12/18 14:55 71 18 99 Full Face 35 06/12/18 14:00 83 19 139/56 (83) 97 06/12/18 13:21 70 18 99 Full Face 35 06/12/18 13:00 82 19 119/67 (84) 97 06/12/18 12:00 35 06/12/18 12:00 102/67 06/12/18 12:00 79 06/12/18 12:00 98.4 79 22 126/71 (89) 98 Intake and Output 06/12/18 06/13/18 18:59 06:59 Intake Total 632.5 ml 745.0 ml Output Total 700 ml Balance -67.5 ml 745.0 ml IV Total 632.5 ml 685.0 ml Other 60 ml Output Urine Total 700 ml # Voids 2 # Bowel Movements 1 Laboratory Tests 06/13/18 04:30: Sodium Level 152H, Potassium Level 3.1L, Chloride Level 115H, Carbon Dioxide Level 27, Anion Gap 11, Blood Urea Nitrogen 29H, Creatinine 1.8H, Estimat Glomerular Filtration Rate 27.8, Glucose Level 109H, Calcium Level 8.3L Height (Feet): 4 Height (Inches): 10.00 Weight (Pounds): 167 Objective On BIPAP CV RR Lungs B wheezes Abd SNT. BS + E No CCE Charo Hyman MD Jun 13, 2018 11:23
--- NOTE | 2018-06-13 12:00 | NUR ---
NURSE NOTES: Patient turned and repositioned. No new orders at this time. Will continue to monitor patient.
--- NOTE | 2018-06-13 14:04 | NUR ---
NURSE NOTES: Patient turned and repositioned. Daughter and sister at bedside. No new orders at this time. No distress noted. Will continue plan of care.
--- NOTE | 2018-06-13 15:45 | General Progress Note ---
Assessment/Plan Assessment/Plan Assessment - Respiratory failure - Acute pancreatitis - Anemia - Leukocytosis - dysphagia - Azotemia - Urolithiasis - UTI - Cholelithiasis - DM - CAD/CABG - Gout Recommendations - pulmonary f/u - BIPAP - NJT position check by KUB - Begin TF when OK with Pulm/Renal - follow labs and exam Subjective Allergies: Coded Allergies: SHELLFISH DERIVED (Verified Allergy, Unknown, swelling and itchiness, 05/14) Subjective On BIPAP Less confused, more calm OGT removed and NJT placed with RN help KUB ordered Objective Last 24 Hour Vital Signs Date Time Temp Pulse Resp B/P (MAP) Pulse Ox O2 Delivery O2 Flow Rate FiO2 06/13/18 15:05 78 19 99 Full Face 35 06/13/18 15:00 98.8 88 19 118/60 (79) 99 06/13/18 14:00 80 19 124/62 (82) 99 06/13/18 13:00 85 19 120/59 (79) 99 06/13/18 12:53 85 28 100 Full Face 35 06/13/18 12:00 81 20 113/62 (79) 99 06/13/18 12:00 82 06/13/18 12:00 35 06/13/18 11:16 100/68 06/13/18 11:04 84 23 100 Full Face 35 06/13/18 11:00 80 22 100/58 (72) 99 06/13/18 10:00 81 22 117/70 (86) 99 06/13/18 09:00 85 19 108/52 (70) 99 06/13/18 08:54 81 19 100 Full Face 35 06/13/18 08:30 80 103/45 06/13/18 08:30 80 103/45 06/13/18 08:00 98.5 77 19 104/43 (63) 99 06/13/18 08:00 35 06/13/18 08:00 77 06/13/18 07:00 74 19 91/65 (74) 99 06/13/18 06:58 67 23 Bi-pap 35 06/13/18 06:58 Bi-pap 35 06/13/18 06:57 98 Bi-pap 35 06/13/18 06:55 67 23 98 Full Face 35 06/13/18 06:52 121/62 06/13/18 06:00 78 18 121/62 (81) 98 06/13/18 05:26 75 20 98 Full Face 35 06/13/18 05:00 69 18 112/62 (79) 98 06/13/18 04:03 98.4 79 19 107/64 (78) 99 06/13/18 04:00 35 06/13/18 04:00 71 06/13/18 03:30 60 25 96 Facial 35 06/13/18 03:00 78 23 95/77 (83) 95 06/13/18 02:00 76 20 125/45 (71) 96 06/13/18 01:30 62 28 97 Facial 35 06/13/18 01:00 76 21 125/58 (80) 95 06/13/18 00:30 136/53 06/13/18 00:00 78 06/13/18 00:00 98.1 70 21 136/53 (80) 97 06/13/18 00:00 35 06/12/18 23:30 59 30 96 Facial 35 06/12/18 23:00 74 20 128/72 (90) 97 06/12/18 22:00 69 23 129/65 (86) 99 06/12/18 21:30 66 20 98 Full Face 35 06/12/18 21:00 67 20 130/63 (85) 97 06/12/18 20:30 80 123/54 06/12/18 20:00 86 06/12/18 20:00 35 06/12/18 20:00 81 25 123/54 (77) 98 06/12/18 19:27 98 Bi-pap 35 06/12/18 19:27 Bi-pap 35 06/12/18 19:27 76 23 98 Full Face 35 06/12/18 19:26 93 25 Bi-pap 35 06/12/18 19:00 74 19 115/69 (84) 97 06/12/18 18:13 79 110/80 06/12/18 18:12 110/80 06/12/18 18:00 79 19 110/80 (90) 97 06/12/18 17:00 82 19 102/88 (93) 97 06/12/18 16:33 82 19 98 Full Face 35 06/12/18 16:00 35 06/12/18 16:00 69 2/23/19 16:00 98.4 80 22 120/64 (82) 98 Intake and Output 06/12/18 06/13/18 18:59 06:59 Intake Total 632.5 ml 745.0 ml Output Total 700 ml Balance -67.5 ml 745.0 ml IV Total 632.5 ml 685.0 ml Other 60 ml Output Urine Total 700 ml # Voids 2 # Bowel Movements 1 Laboratory Tests 06/13/18 04:30: Sodium Level 152H, Potassium Level 3.1L, Chloride Level 115H, Carbon Dioxide Level 27, Anion Gap 11, Blood Urea Nitrogen 29H, Creatinine 1.8H, Estimat Glomerular Filtration Rate 27.8, Glucose Level 109H, Calcium Level 8.3L Height (Feet): 4 Height (Inches): 10.00 Weight (Pounds): 167 Objective WDWN NCAT,(+) BIPAP Neck supple Coarse BS RRR abd soft, ND restrained, confused Mary Jewell MD Jun 13, 2018 15:45
--- NOTE | 2018-06-13 16:00 | NUR ---
NURSE NOTES: Patient turned and repositioned. VSS. No distress noted. Daughter at bedside. Updated with plan of care. Will continue to monitor patient.
--- NOTE | 2018-06-13 16:27 | Pulmonolgy Critical Care Note ---
Critical Care - Asmt/Plan Assessment/Plan: Pulmonary CCM Progress Note Assessment/Plan Impression Diabetic ketoacidosis Anemia Transaminitis of unclear etiology Severe protein calorie malnutrition Evidence of pancreatitis, better Acute renal failure, improved Hyperglycemia Diabetes Hyponatremia Metabolic acidosis Hypercholesterolemia fever oral ulcers afib with RVR leukopenia pancreatitis CVA pleural effusions GT needs nutrition on antibiotics with + cultures; per ID on lovenox ? eliquis have renal reevaluate care noted; will need rehab with current status still very weak and will need snf recheck BMP in am swallow evaluation pending impression, plan, and exam edited and reviewed in detail care discussed with RN Subjective Allergies: Coded Allergies: SHELLFISH DERIVED (Verified Allergy, Unknown, swelling and itchiness, 05/14) Subjective care noted not eating well NAD less lethargic Objective Vital Signs Noted Laboratory Tests 06/10/18 04:30: Stool Occult Blood Negative 06/10/18 05:20: White Blood Count 12.8H, Red Blood Count 3.19L, Hemoglobin 9.1L, Hematocrit 28.5L, Mean Corpuscular Volume 89, Mean Corpuscular Hemoglobin 28.5, Mean Corpuscular Hemoglobin Concent 31.9L, Red Cell Distribution Width 21.5H, Platelet Count 305, Mean Platelet Volume 7.0, Neutrophils (%) (Auto) , Lymphocytes (%) (Auto) , Monocytes (%) (Auto) , Eosinophils (%) (Auto) , Basophils (%) (Auto) , Differential Total Cells Counted 100, Neutrophils % ( Manual) 91H, Lymphocytes % (Manual) 2L, Monocytes % (Manual) 6, Eosinophils % ( Manual) 1, Basophils % (Manual) 0, Band Neutrophils 0, Platelet Estimate Adequate, Platelet Morphology Normal, Polychromasia 1+, Hypochromasia 1+, Anisocytosis 2+, Sodium Level 149H, Potassium Level 4.0, Chloride Level 111H, Carbon Dioxide Level 25, Anion Gap 13, Blood Urea Nitrogen 31H, Creatinine 1.9H , Estimat Glomerular Filtration Rate 26.1, Glucose Level 209H, Calcium Level 8.3L 06/10/18 07:37: Arterial Blood pH 7.471H, Arterial Blood Partial Pressure CO2 28.8L, Arterial Blood Partial Pressure O2 53.5L, Arterial Blood HCO3 20.5L, Arterial Blood Oxygen Saturation 88.1*L, Arterial Blood Base Excess -2.4L, Marlon Test Positive Height (Feet): 4 Height (Inches): 10.00 Weight (Pounds): 174 Objective WDWN lethargic clear breath sounds bilaterally without rhonchi or wheeze S1S2 RRR without MRG NABS nontender no HSM no CCE remains weak Critical Care - Objective Last 24 Hour Vital Signs Date Time Temp Pulse Resp B/P (MAP) Pulse Ox O2 Delivery O2 Flow Rate FiO2 06/13/18 16:00 80 06/13/18 16:00 82 19 120/58 (78) 99 06/13/18 16:00 35 06/13/18 15:05 78 19 99 Full Face 35 06/13/18 15:00 98.8 88 19 118/60 (79) 99 06/13/18 14:00 80 19 124/62 (82) 99 06/13/18 13:00 85 19 120/59 (79) 99 06/13/18 12:53 85 28 100 Full Face 35 06/13/18 12:00 81 20 113/62 (79) 99 06/13/18 12:00 82 06/13/18 12:00 35 06/13/18 11:16 100/68 06/13/18 11:04 84 23 100 Full Face 35 06/13/18 11:00 80 22 100/58 (72) 99 06/13/18 10:00 81 22 117/70 (86) 99 06/13/18 09:00 85 19 108/52 (70) 99 06/13/18 08:54 81 19 100 Full Face 35 06/13/18 08:30 80 103/45 06/13/18 08:30 80 103/45 06/13/18 08:00 98.5 77 19 104/43 (63) 99 06/13/18 08:00 35 06/13/18 08:00 77 06/13/18 07:00 74 19 91/65 (74) 99 06/13/18 06:58 67 23 Bi-pap 35 06/13/18 06:58 Bi-pap 35 06/13/18 06:57 98 Bi-pap 35 06/13/18 06:55 67 23 98 Full Face 35 06/13/18 06:52 121/62 06/13/18 06:00 78 18 121/62 (81) 98 06/13/18 05:26 75 20 98 Full Face 35 06/13/18 05:00 69 18 112/62 (79) 98 06/13/18 04:03 98.4 79 19 107/64 (78) 99 06/13/18 04:00 35 06/13/18 04:00 71 06/13/18 03:30 60 25 96 Facial 35 06/13/18 03:00 78 23 95/77 (83) 95 06/13/18 02:00 76 20 125/45 (71) 96 06/13/18 01:30 62 28 97 Facial 35 06/13/18 01:00 76 21 125/58 (80) 95 06/13/18 00:30 136/53 06/13/18 00:00 78 06/13/18 00:00 98.1 70 21 136/53 (80) 97 06/13/18 00:00 35 06/12/18 23:30 59 30 96 Facial 35 06/12/18 23:00 74 20 128/72 (90) 97 06/12/18 22:00 69 23 129/65 (86) 99 06/12/18 21:30 66 20 98 Full Face 35 06/12/18 21:00 67 20 130/63 (85) 97 06/12/18 20:30 80 123/54 06/12/18 20:00 86 06/12/18 20:00 35 06/12/18 20:00 81 25 123/54 (77) 98 06/12/18 19:27 98 Bi-pap 35 06/12/18 19:27 Bi-pap 35 06/12/18 19:27 76 23 98 Full Face 35 06/12/18 19:26 93 25 Bi-pap 35 06/12/18 19:00 74 19 115/69 (84) 97 06/12/18 18:13 79 110/80 06/12/18 18:12 110/80 06/12/18 18:00 79 19 110/80 (90) 97 06/12/18 17:00 82 19 102/88 (93) 97 06/12/18 16:33 82 19 98 Full Face 35 Accucheck: 160 Critical Care - Subjective FI02: 35 Vent Support Mode: BiLevel Sputum Amount: None Tube Feeding Amount: 45 I&O: Intake and Output 06/12/18 06/13/18 19:00 07:00 Intake Total 632.5 ml 772.5 ml Output Total 500 ml Balance 132.5 ml 772.5 ml IV Total 632.5 ml 712.5 ml Other 60 ml Output Urine Total 500 ml # Voids 2 # Bowel Movements 1 Gulshan Landry MD Jun 13, 2018 16:27
--- NOTE | 2018-06-13 18:00 | NUR ---
NURSE NOTES: Patient turned and repositioned. No new orders. Daughter at bedside. No distress noted. OFF bipap at this time. Saturating 98% RR 22. Will continue to monitor patient.
--- NOTE | 2018-06-13 19:00 | NUR ---
HAND-OFF: Report given to Isidoro BLACK using SBAR. VSS. No distress noted.
--- NOTE | 2018-06-13 19:00 | NUR ---
NURSE NOTES: Pt is alert and oriented 2-3 with episode of forgetful, reality orientation provided. On bilateral soft wrist restraints. NC at 2L. O2 sat 100%. No acute respiratory distress noted. Purewick in placed. Left UA PICC line intact no s/s of infiltration Running D5W at 50cc/hr. bed locked and in lowest position. Family at bedside. Bed alarm on, Call light within reach, bed on lowest position. Will continue plan of care.
--- NOTE | 2018-06-13 19:58 | Diagnostic Imaging Report ---
EXAM: XR Abdomen, 2 Views CLINICAL HISTORY: TUBE PLCMT TECHNIQUE: Frontal view of the abdomen/pelvis with upright view of the abdomen. COMPARISON: KUB 06/10/18. FINDINGS: See Impression. IMPRESSION: Interval placement feeding tube with tip at the horizontal portion of the duodenum. Previous transesophageal catheter has been discontinued. No abnormal dilatation of bowel. Bones are unchanged from the prior study.
--- NOTE | 2018-06-13 20:00 | NUR ---
NURSE NOTES: Received preliminary report from radiology regarding NJT placement and it confirms placement in the duodenum. Called Dr. Jewell and notified him about placement confirmation. Per nephro progress report notes and per caleb, hold feeds for now until further notice. 100ml water flush provided, repositioned, and oral care provided. Patient placed on BIPAP 15/5, 30% FiO2. HR is 77 SR, Temperature is 97.5F. NAD at this time.
[2018-06-13] MEDS: Dyna-Hex 2% Top Sol 2oz TOPIC SCH (20:53)
[2018-06-13] MEDS: OLANZapine 2.5mg tab ORAL SCH (20:53)
--- NOTE | 2018-06-13 21:50 | General Progress Note ---
Assessment/Plan Assessment/Plan Assessment and Recs # Pancytopenia -- appears that initial hep and hiv are negative though final results to follow, liver shows no major hsm or cirrhosis, may consider meds or bone marrow process, smear reviewed, does have low albumin, has been hospitalized for some time, in and out since 04/30/18. Hiv and hepatitis panels are both negative --> query meds, review with ID, is on micafungin now, monitor counts closely --> given hgb downtrending and some nucleated reds on smear, will send off a flow cytometry --> nepogen 300mcg sq to maintain anc >1500 --> wbc trend : 1.7-->4.3-->3.1-->3.4-->7.7-->8.1--12-->15-->11-->14.6 # Anemia of chronic disease - monitor anemia panel --> hemolysis does not appear to be the case --> anemia panel reviewed and c/w acd --> hgb trend: 8.3-->9.2-->8.9-->8.7-->9-->7.7-->7 # Paroxysmal atrial fibrillation, due to CHADS-VASC score of 5, we require to keep anticoagulated, on metoprolol --> continue on apixaban # Hx of CAD, s/p CABG, ASA , atorvastatin and metoprolol. No wall motion abnormalities on Echo. LVEF ~55%. --> appreciate cards recs # Sinus tachycardia due to hypovolemia, resolved. # DKA, resolved. --> continue monitor # DM, non-compliant with medications. # Hx of HTN, controlled with metoprolol. # pancreatitis -- appreciate gi recs # increased LFT The timing of this note does not necessarily reflect the time of the patient was seen. Greatly appreciate consultation! Subjective Constitutional: Denies: no symptoms, chills, diaphoresis, fever, malaise, weakness, other HEENT: Denies: no symptoms, eye pain, blurred vision, tearing, double vision, ear pain, ear discharge, nose pain, nose congestion, throat pain, throat swelling, mouth pain, mouth swelling, other Cardiovascular: Denies: no symptoms, chest pain, edema, irregular heart rate, lightheadedness, palpitations, syncope, other Respiratory: Denies: no symptoms, cough, orthopnea, shortness of breath, SOB with excertion, SOB at rest, sputum, stridor, wheezing, other Gastrointestinal/Abdominal: Denies: no symptoms, abdomen distended, abdominal pain, black stools, tarry stools, blood in stool, constipated, diarrhea, difficulty swallowing, nausea, poor appetite, poor fluid intake, rectal bleeding , vomiting, other Genitourinary: Denies: no symptoms, burning, discharge, frequency, flank pain, hematuria, incontinence, pain, urgency, other Neurologic/Psychiatric: Denies: no symptoms, anxiety, depressed, emotional problems, headache, numbness, paresthesia, pre-existing deficit, seizure, tingling, tremors, weakness, other Endocrine: Denies: no symptoms, excessive sweating, flushing, intolerance to cold, intolerance to heat, increased hunger, increased thirst, increased urine, unexplained weight gain, unexplained weight loss, other Hematologic/Lymphatic: Denies: no symptoms, anemia, easy bleeding, easy bruising, other Allergies: Coded Allergies: SHELLFISH DERIVED (Verified Allergy, Unknown, swelling and itchiness, 05/14) Subjective 05/18: Pt is awake and comfortable, no events, leukopenia improved, wbc 4.3, plt 151 05/19: seen by bedside, awake, comfortable, plt 122 05/20: Pt is awake and comfortable, no events 05/21: Pt is seen in the room, resting in bed, no fevers or chills, wbc 8.7, plt 117 05/23: Pt is resting in bed, awake, comfortable, no fevers or chills, no acute distress. 05/24: EGD and EUS done today, has no gallbladder stones, only pancreatitis, no events 2: no events, dermatitis has improved, off loading of heels, pancreatitis and dka better 05/26: Pt is awake, comfortable, no acute events overnight, hgb 8.6 05/27: seen by bedside, awake, comfortable, no events 05/28: resting in bed, awake, comfortable, no fevers or chills, no acute distress , No need for ERCP per GI, 05/31: Pt is awake and comfortable, no events 06/01: awake, comfortable, denies acute distress. 06/02: seen by bedside, awake, comfortable, no acute distress. wbc 15. 2: no acute events, denies any abdominal pain, wbc trending down at 11 today. 06/04: awake/drowsy in bed, breathing easily on nasal cannula, denies SOB and pain at this time. 06/06: anemia cotninues to worsen, may consider a bone marrow biopsy if patient approves 06/07: hgb 9.7, not eating well, remains lethargic 06/08: hgb is stable, respiratory status is worsened, and thus was transferred to the icu 06/09: seen by bedside,awake, comfortable, plan to insert NGT samanta 06/10: not eating well, remains lethargic 06/11: poor po intake but currently on BIPAP and not stable for PEG placement, NGTF on hold per pulm 05/24:Seen by bedside, less confused, on BIPAP, no events Objective Last 24 Hour Vital Signs Date Time Temp Pulse Resp B/P (MAP) Pulse Ox O2 Delivery O2 Flow Rate FiO2 06/13/18 21:18 75 24 98 Full Face 35 06/13/18 21:00 81 17 127/93 (104) 100 06/13/18 20:53 106 133/65 06/13/18 20:00 35 06/13/18 20:00 97.5 82 19 134/72 (92) 95 06/13/18 20:00 77 06/13/18 19:49 106 22 Bi-pap 35 06/13/18 19:49 Bi-pap 35 06/13/18 19:49 96 Bi-pap 35 06/13/18 19:30 76 25 97 Full Face 35 06/13/18 19:00 88 22 133/65 (87) 99 06/13/18 18:00 80 22 126/53 (77) 99 06/13/18 17:57 82 126/56 06/13/18 17:56 126/56 06/13/18 17:00 80 19 116/55 (75) 100 06/13/18 16:00 80 06/13/18 16:00 Bi-pap 06/13/18 16:00 82 19 120/58 (78) 99 06/13/18 16:00 35 06/13/18 15:05 78 19 99 Full Face 35 06/13/18 15:00 98.8 88 19 118/60 (79) 99 06/13/18 14:00 80 19 124/62 (82) 99 06/13/18 13:00 85 19 120/59 (79) 99 06/13/18 12:53 85 28 100 Full Face 35 06/13/18 12:00 Bi-pap 06/13/18 12:00 81 20 113/62 (79) 99 06/13/18 12:00 82 06/13/18 12:00 35 06/13/18 11:16 100/68 06/13/18 11:04 84 23 100 Full Face 35 06/13/18 11:00 80 22 100/58 (72) 99 06/13/18 10:00 81 22 117/70 (86) 99 06/13/18 09:00 85 19 108/52 (70) 99 06/13/18 08:54 81 19 100 Full Face 35 06/13/18 08:30 80 103/45 06/13/18 08:30 80 103/45 06/13/18 08:00 Bi-pap 06/13/18 08:00 98.5 77 19 104/43 (63) 99 06/13/18 08:00 35 06/13/18 08:00 77 06/13/18 07:00 74 19 91/65 (74) 99 06/13/18 06:58 67 23 Bi-pap 35 06/13/18 06:58 Bi-pap 35 06/13/18 06:57 98 Bi-pap 35 06/13/18 06:55 67 23 98 Full Face 35 06/13/18 06:52 121/62 06/13/18 06:00 78 18 121/62 (81) 98 06/13/18 05:26 75 20 98 Full Face 35 06/13/18 05:00 69 18 112/62 (79) 98 06/13/18 04:03 98.4 79 19 107/64 (78) 99 06/13/18 04:00 35 06/13/18 04:00 71 06/13/18 03:30 60 25 96 Facial 35 06/13/18 03:00 78 23 95/77 (83) 95 06/13/18 02:00 76 20 125/45 (71) 96 06/13/18 01:30 62 28 97 Facial 35 06/13/18 01:00 76 21 125/58 (80) 95 06/13/18 00:30 136/53 06/13/18 00:00 78 06/13/18 00:00 98.1 70 21 136/53 (80) 97 06/13/18 00:00 35 06/12/18 23:30 59 30 96 Facial 35 06/12/18 23:00 74 20 128/72 (90) 97 06/12/18 22:00 69 23 129/65 (86) 99 Intake and Output 06/12/18 06/13/18 19:00 07:00 Intake Total 632.5 ml 772.5 ml Output Total 500 ml Balance 132.5 ml 772.5 ml IV Total 632.5 ml 712.5 ml Other 60 ml Output Urine Total 500 ml # Voids 2 # Bowel Movements 1 Laboratory Tests 06/13/18 04:30: Sodium Level 152H, Potassium Level 3.1L, Chloride Level 115H, Carbon Dioxide Level 27, Anion Gap 11, Blood Urea Nitrogen 29H, Creatinine 1.8H, Estimat Glomerular Filtration Rate 27.8, Glucose Level 109H, Calcium Level 8.3L Height (Feet): 4 Height (Inches): 10.00 Weight (Pounds): 167 Objective PHYSICAL EXAMINATION: GENERAL: Pleasant [place] woman, tired HEENT: Normocephalic and atraumatic. Sclerae anicteric. Oropharynx clear. NECK: Supple. CHEST: bilateral crackles and ++ nc CARDIOVASCULAR: Revealed regular rate. ABDOMEN: Soft. Good bowel sounds. There is no organomegaly or tenderness. Anterior chest and abdomen scars were as expected. EXTREMITIES: Revealed no edema. Armando Bowen MD Jun 13, 2018 21:50
--- NOTE | 2018-06-13 22:00 | NUR ---
NURSE NOTES: Patient repositioned, remains on BIPAP, NAD at this time. Will continue to monitor.
[2018-06-14] VITALS (24 sets, daily range): BP systolic 110–148; BP diastolic 47–82
--- NOTE | 2018-06-14 | NUR ---
NURSE NOTES: Patient repositioned, Vitals remains stable, Oral care provided.
[2018-06-14] MEDS: HydrALAZINE 25mg tab ORAL SCH ×4 (00:20→17:09)
--- NOTE | 2018-06-14 02:00 | NUR ---
NURSE NOTES: Patient repositioned, NAD at this time. IV lines remains patent. Vitals remains stable.
--- NOTE | 2018-06-14 04:00 | NUR ---
NURSE NOTES: Patient cleaned and repositioned, oral care also provided, Labs dawned and sent. Patient does respond to verbally at times.
[2018-06-14] MEDS: Piperacillin/Tazobactam 3.375 GM in D5W 110 ML IVPB SCH ×3 (05:46→21:15)
[2018-06-14] MEDS: NovoLOG Insulin Flexpen SUBQ SCH ×4 (05:47→21:16)
--- NOTE | 2018-06-14 06:19 | NUR ---
NURSE NOTES: Patient repositioned and suctioned, oral care was provided. NAD at this time, no acute events overnight.
[2018-06-14 06:20] LABS: EOSINOPHILS % (AUTO) 4.1 % (0.0-3.0); HEMATOCRIT 27.3 % (37.0-47.0); HEMOGLOBIN 8.3 G/DL (12.0-16.0); LYMPHOCYTES % (AUTO) 8.8 % (20.0-45.0); MEAN CORPUSCULAR VOLUME 94 FL (80-99); MONOCYTES % (AUTO) 6.9 % (1.0-10.0); NEUTROPHILS % (AUTO) 79.3 % (45.0-75.0); PLATELET COUNT 262 K/UL (150-450); RED BLOOD COUNT 2.92 M/UL (4.20-5.40); RED CELL DISTRIBUTION WIDTH 21.7 % (11.6-14.8); WHITE BLOOD COUNT 10.2 K/UL (4.8-10.8)
[2018-06-14 06:43] LABS: ANION GAP 11 mmol/L (5-15); BLOOD UREA NITROGEN 24 mg/dL (7-18); CALCIUM 8.1 MG/DL (8.5-10.1); CARBON DIOXIDE 25 MMOL/L (21-32); CHLORIDE 113 MMOL/L (98-107); CREATININE 1.8 MG/DL (0.55-1.30); POTASSIUM 3.4 MMOL/L (3.5-5.1); SODIUM 149 MMOL/L (136-145)
--- NOTE | 2018-06-14 08:00 | NUR ---
NURSE NOTES: Pt is alert and oriented 2-3 with episode of forgetful, reality orientation provided. On bilateral soft wrist restraints, observed removing devices. On Bi-pap 15/, 35%. O2 sat 100%. No acute respiratory distress noted. Purewick in placed. Left UA PICC line intact no s/s of infiltration Running D5 at 50cc/hr. bed locked and in lowest position. Bed alarm on, Call light within reach, bed on lowest position. Temp of 99.8 - fan on, covers removed. Will continue plan of care.
--- NOTE | 2018-06-14 08:03 | General Progress Note ---
Assessment/Plan Assessment/Plan Impression Diabetic ketoacidosis Anemia Transaminitis of unclear etiology Severe protein calorie malnutrition Evidence of pancreatitis, better Acute renal failure, improved Hyperglycemia Diabetes Hyponatremia Metabolic acidosis Hypercholesterolemia fever oral ulcers afib with RVR leukopenia pancreatitis CVA pleural effusions PLAN nutrition on antibiotics on lovenox ? eliquis still very weak and will need snf monitor labs needs GT impression, plan, and exam edited and reviewed in detail care discussed with RN Subjective Allergies: Coded Allergies: SHELLFISH DERIVED (Verified Allergy, Unknown, swelling and itchiness, 05/14) Subjective care noted NJT in place NAD lethargic Objective Last 24 Hour Vital Signs Date Time Temp Pulse Resp B/P (MAP) Pulse Ox O2 Delivery O2 Flow Rate FiO2 06/14/18 07:14 94 21 100 Full Face 35 06/14/18 07:13 Bi-pap 35 06/14/18 07:13 100 Bi-pap 35 06/14/18 07:13 91 25 Bi-pap 35 06/14/18 07:00 83 25 112/59 (76) 99 06/14/18 06:00 90 25 113/61 (78) 97 06/14/18 05:46 126/56 06/14/18 05:29 76 20 99 Full Face 35 06/14/18 05:00 79 17 124/54 (77) 98 06/14/18 04:00 83 06/14/18 04:00 98.9 84 18 126/56 (79) 99 06/14/18 04:00 35 06/14/18 03:30 90 20 98 Facial 35 06/14/18 03:00 83 19 124/58 (80) 98 06/14/18 02:00 79 19 138/59 (85) 98 06/14/18 01:30 91 22 97 Facial 35 06/14/18 01:00 85 19 114/65 (81) 99 06/14/18 00:20 127/93 06/14/18 00:00 85 06/14/18 00:00 97.9 89 30 148/66 (93) 93 06/13/18 23:26 89 23 98 Full Face 35 06/13/18 23:00 82 20 102/64 (77) 99 06/13/18 22:00 80 18 133/73 (93) 100 06/13/18 21:18 75 24 98 Full Face 35 06/13/18 21:00 81 17 127/93 (104) 100 06/13/18 20:53 106 133/65 06/13/18 20:00 35 06/13/18 20:00 97.5 82 19 134/72 (92) 95 06/13/18 20:00 77 06/13/18 19:49 106 22 Bi-pap 35 06/13/18 19:49 Bi-pap 35 06/13/18 19:49 96 Bi-pap 35 06/13/18 19:30 76 25 97 Full Face 35 06/13/18 19:00 88 22 133/65 (87) 99 06/13/18 18:00 80 22 126/53 (77) 99 06/13/18 17:57 82 126/56 06/13/18 17:56 126/56 06/13/18 17:00 80 19 116/55 (75) 100 06/13/18 16:00 80 06/13/18 16:00 Bi-pap 06/13/18 16:00 82 19 120/58 (78) 99 06/13/18 16:00 35 06/13/18 15:05 78 19 99 Full Face 35 06/13/18 15:00 98.8 88 19 118/60 (79) 99 06/13/18 14:00 80 19 124/62 (82) 99 06/13/18 13:00 85 19 120/59 (79) 99 06/13/18 12:53 85 28 100 Full Face 35 06/13/18 12:00 Bi-pap 06/13/18 12:00 81 20 113/62 (79) 99 06/13/18 12:00 82 06/13/18 12:00 35 06/13/18 11:16 100/68 06/13/18 11:04 84 23 100 Full Face 35 06/13/18 11:00 80 22 100/58 (72) 99 06/13/18 10:00 81 22 117/70 (86) 99 06/13/18 09:00 85 19 108/52 (70) 99 06/13/18 08:54 81 19 100 Full Face 35 06/13/18 08:30 80 103/45 06/13/18 08:30 80 103/45 Intake and Output 06/13/18 06/14/18 19:00 07:00 Intake Total 742.5 ml 937.5 ml Output Total 200 ml 500 ml Balance 542.5 ml 437.5 ml Free Water 200 ml IV Total 742.5 ml 737.5 ml Output Urine Total 200 ml 500 ml # Voids 3 Laboratory Tests 06/14/18 05:00: White Blood Count 10.2, Red Blood Count 2.92L, Hemoglobin 8.3L, Hematocrit 27.3L , Mean Corpuscular Volume 94, Mean Corpuscular Hemoglobin 28.5, Mean Corpuscular Hemoglobin Concent 30.4L, Red Cell Distribution Width 21.7H, Platelet Count 262, Mean Platelet Volume 6.3L, Neutrophils (%) (Auto) 79.3H, Lymphocytes (%) (Auto) 8.8L, Monocytes (%) (Auto) 6.9, Eosinophils (%) (Auto) 4.1H, Basophils (%) (Auto) 1.0, Sodium Level 149H, Potassium Level 3.4L, Chloride Level 113H, Carbon Dioxide Level 25, Anion Gap 11, Blood Urea Nitrogen 24H, Creatinine 1.8H, Estimat Glomerular Filtration Rate 27.8, Glucose Level 136H, Calcium Level 8.1L Height (Feet): 4 Height (Inches): 10.00 Weight (Pounds): 166 Objective WDWN lethargic reduced breath sounds bilaterally without rhonchi or wheeze S1S2 RRR without MRG NABS nontender no HSM; NJT in place no CCE weak Jesus Lew MD Jun 14, 2018 08:03
[2018-06-14] MEDS: Metoprolol Tartrate 50mg tab ORAL SCH ×2 (08:51→21:15)
[2018-06-14] MEDS: Aspirin Baby 81mg ORAL SCH (08:57)
[2018-06-14] MEDS: Enoxaparin 80mg Inj SUBQ SCH (08:59)
[2018-06-14] MEDS: Miconazole 2% Cream 30gm TOPIC SCH ×2 (08:59→17:09)
--- NOTE | 2018-06-14 10:00 | NUR ---
NURSE NOTES: Patient turned and repositioned. No new orders at this time. Will continue plan of care.
--- NOTE | 2018-06-14 10:34 | NUR ---
RADIOLOGY DEPT CHEST X-RAY DONE.P.DYE
[2018-06-14] MEDS ORDERED: D5 1/2NS 1000ml IV ONE (11:02)
[2018-06-14] MEDS ORDERED: NS 275ml ONE (11:02)
--- NOTE | 2018-06-14 11:19 | NUR ---
Social Service Note KEVYN spoke with Dr. Lew regarding the treatment plan for patient. Patient continues with continuos bipap. Patient may require G-tube placement and Trach. KEVYN spoke with patient's dgt Nakita who is visiting from [place]. Dgt is utilizing patient's cell phone [phone]. Dgt will be returning to [place] on Thursday. Dgt is available to meet with Dr. Lew at anytime prior to her departure. KEVYN provided Dr. Louann shcmidtt's contact number. Once dgt leaves, dgt indicated patient's other sister Kellee [phone] to be the locale contact officer. Sister Yoly is currently out of the country. Will continue to monitor and assist as needed.
--- NOTE | 2018-06-14 11:50 | Infectious Diseases Prog Note ---
Assessment/Plan Assessment/Plan A 1. pancreatitis, EUS negative 2. herpes of lip treated 3. DM 4. increased LFT 5. fever resolved 6. hypertension 7. Anemia 10. Hypoxemic respiratory failure 11. Pneumonia with Klebsiella & strep Group B P 1. continue Zosyn Subjective ROS Limited/Unobtainable: Yes Constitutional: Reports: other - in ICU Neurologic: Reports: confusion, other - on restraint Allergies: Coded Allergies: SHELLFISH DERIVED (Verified Allergy, Unknown, swelling and itchiness, 05/14) Objective Vital Signs Last 24 Hour Vital Signs Date Time Temp Pulse Resp B/P (MAP) Pulse Ox O2 Delivery O2 Flow Rate FiO2 06/14/18 11:45 120/57 06/14/18 11:00 89 22 128/67 (87) 99 06/14/18 10:58 79 28 99 Full Face 45 06/14/18 10:06 45 06/14/18 10:00 84 22 124/65 (84) 99 06/14/18 09:00 80 25 118/60 (79) 99 06/14/18 09:00 79 28 99 Full Face 35 06/14/18 08:51 80 107/57 06/14/18 08:51 80 107/57 06/14/18 08:00 35 06/14/18 08:00 98.8 77 25 110/54 (72) 99 06/14/18 08:00 87 06/14/18 07:14 94 21 100 Full Face 35 06/14/18 07:13 Bi-pap 35 06/14/18 07:13 100 Bi-pap 35 06/14/18 07:13 91 25 Bi-pap 35 06/14/18 07:00 83 25 112/59 (76) 99 06/14/18 06:00 90 25 113/61 (78) 97 06/14/18 05:46 126/56 06/14/18 05:29 76 20 99 Full Face 35 06/14/18 05:00 79 17 124/54 (77) 98 06/14/18 04:00 83 06/14/18 04:00 98.9 84 18 126/56 (79) 99 06/14/18 04:00 35 06/14/18 03:30 90 20 98 Facial 35 06/14/18 03:00 83 19 124/58 (80) 98 06/14/18 02:00 79 19 138/59 (85) 98 06/14/18 01:30 91 22 97 Facial 35 06/14/18 01:00 85 19 114/65 (81) 99 06/14/18 00:20 127/93 06/14/18 00:00 85 06/14/18 00:00 97.9 89 30 148/66 (93) 93 06/13/18 23:26 89 23 98 Full Face 35 06/13/18 23:00 82 20 102/64 (77) 99 06/13/18 22:00 80 18 133/73 (93) 100 06/13/18 21:18 75 24 98 Full Face 35 06/13/18 21:00 81 17 127/93 (104) 100 06/13/18 20:53 106 133/65 06/13/18 20:00 35 06/13/18 20:00 97.5 82 19 134/72 (92) 95 06/13/18 20:00 77 06/13/18 19:49 106 22 Bi-pap 35 06/13/18 19:49 Bi-pap 35 06/13/18 19:49 96 Bi-pap 35 06/13/18 19:30 76 25 97 Full Face 35 06/13/18 19:00 88 22 133/65 (87) 99 06/13/18 18:00 80 22 126/53 (77) 99 06/13/18 17:57 82 126/56 06/13/18 17:56 126/56 06/13/18 17:00 80 19 116/55 (75) 100 06/13/18 16:00 80 06/13/18 16:00 Bi-pap 06/13/18 16:00 82 19 120/58 (78) 99 06/13/18 16:00 35 06/13/18 15:05 78 19 99 Full Face 35 06/13/18 15:00 98.8 88 19 118/60 (79) 99 06/13/18 14:00 80 19 124/62 (82) 99 06/13/18 13:00 85 19 120/59 (79) 99 06/13/18 12:53 85 28 100 Full Face 35 06/13/18 12:00 Bi-pap 06/13/18 12:00 81 20 113/62 (79) 99 06/13/18 12:00 82 06/13/18 12:00 35 Height (Feet): 4 Height (Inches): 10.00 Weight (Pounds): 166 HEENT: mucous membranes moist, other Respiratory/Chest: decreased breath sounds, other - on BIPAP Cardiovascular: normal rate Abdomen: soft, non tender, other - GT feeding Extremities: other - generalized edema Neurologic/Psychiatric: alert, responsive Laboratory Tests Test 06/14/18 05:00 06/14/18 09:50 White Blood Count 10.2 K/UL (4.8-10.8) Red Blood Count 2.92 M/UL (4.20-5.40) L Hemoglobin 8.3 G/DL (12.0-16.0) L Hematocrit 27.3 % (37.0-47.0) L Mean Corpuscular Volume 94 FL (80-99) Mean Corpuscular Hemoglobin 28.5 PG (27.0-31.0) Mean Corpuscular Hemoglobin Concent 30.4 G/DL (32.0-36.0) L Red Cell Distribution Width 21.7 % (11.6-14.8) H Platelet Count 262 K/UL (150-450) Mean Platelet Volume 6.3 FL (6.5-10.1) L Neutrophils (%) (Auto) 79.3 % (45.0-75.0) H Lymphocytes (%) (Auto) 8.8 % (20.0-45.0) L Monocytes (%) (Auto) 6.9 % (1.0-10.0) Eosinophils (%) (Auto) 4.1 % (0.0-3.0) H Basophils (%) (Auto) 1.0 % (0.0-2.0) Sodium Level 149 MMOL/L (136-145) H Potassium Level 3.4 MMOL/L (3.5-5.1) L Chloride Level 113 MMOL/L (98-107) H Carbon Dioxide Level 25 MMOL/L (21-32) Anion Gap 11 mmol/L (5-15) Blood Urea Nitrogen 24 mg/dL (7-18) H Creatinine 1.8 MG/DL (0.55-1.30) H Estimat Glomerular Filtration Rate 27.8 mL/min (>60) Glucose Level 136 MG/DL (74-106) H Calcium Level 8.1 MG/DL (8.5-10.1) L Arterial Blood pH 7.468 (7.350-7.450) Arterial Blood Partial Pressure CO2 34.3 mmHg (35.0-45.0) L Arterial Blood Partial Pressure O2 69.8 mmHg (75.0-100.0) L Arterial Blood HCO3 24.3 mmol/L (22.0-26.0) Arterial Blood Oxygen Saturation 93.0 % (95-100) L Arterial Blood Base Excess 0.8 (-2-2) Marlon Test Positive Current Medications Medications (Trade) Dose Ordered Sig/Ellen Route PRN Reason Start Time Stop Time Status Last Admin Dose Admin Acetaminophen (Tylenol) 650 mg Q4H PRN ORAL Mild Pain/Temp > 100.5 06/08/18 15:00 07/02/18 14:59 Al Hydroxide/Mg Hydroxide (Mylanta) 30 ml Q6H PRN ORAL Abdominal cramps 06/08/18 15:00 07/02/18 14:59 Amlodipine Besylate (Norvasc) 5 mg BID ORAL 06/08/18 18:00 06/28/18 08:59 06/12/18 18:13 Aspirin (ASA) 81 mg DAILY ORAL 06/09/18 09:00 06/24/18 08:59 06/14/18 08:57 Chlorhexidine Gluconate (Leora-Hex 2%) 1 applic DAILY@2000 TOPIC 06/08/18 20:00 06/24/18 19:59 06/13/18 20:53 Dextrose 1,000 ml @ 50 mls/hr Q20H IV 06/13/18 12:00 07/13/18 11:59 06/14/18 07:00 Enoxaparin Sodium (Lovenox) 80 mg Q24H SUBQ 06/09/18 09:00 07/03/18 08:59 06/14/18 08:59 Haloperidol Lactate (Haldol) 5 mg Q6H PRN IM Agitation 06/08/18 15:00 07/02/18 14:59 Hydralazine HCl (Apresoline) 25 mg Q6HR ORAL 06/08/18 18:00 07/02/18 00:00 06/14/18 05:46 Insulin Aspart (NovoLOG) BEFORE MEALS AND HS SUBQ 06/08/18 16:30 07/08/18 16:29 06/14/18 11:35 Lansoprazole (Prevacid) 30 mg DAILY GT 06/11/18 09:00 07/11/18 08:59 06/14/18 08:59 Magnesium Hydroxide (Mom) 30 ml DAILYPRN PRN ORAL Constipation 06/08/18 15:00 07/02/18 14:59 Metoprolol Tartrate (Lopressor) 5 mg Q2H PRN IVP For High Blood Pressure 06/08/18 15:00 06/23/18 16:59 Metoprolol Tartrate (Lopressor) 50 mg Q12HR ORAL 06/08/18 21:00 06/26/18 20:59 06/13/18 20:53 Miconazole Nitrate (Miconazole Nitrate) 1 applic BID TOPIC 06/09/18 18:30 07/09/18 18:29 06/14/18 08:59 Olanzapine (ZyPREXA) 2.5 mg BEDTIME ORAL 06/08/18 21:00 07/01/18 20:59 06/13/18 20:53 Piperacillin Sod/ Tazobactam Sod 3.375 gm/Dextrose 110 ml @ 27.5 mls/hr Q8HR IVPB 06/09/18 14:00 06/16/18 13:59 06/14/18 05:46 Mahesh Tejada MD Jun 14, 2018 11:50
--- NOTE | 2018-06-14 12:00 | NUR ---
NURSE NOTES: Patient turned and repositioned. Bowel movement x1. Formed, brown. Feeding initiated at 10 cc/hr glucerna 1.5 per md order. Will continue to monitor patient.
--- NOTE | 2018-06-14 13:03 | Diagnostic Imaging Report ---
Indication: Dyspnea Comparison: 06/10/2018 A single view chest radiograph was obtained. Findings: Pulmonary edema suspected. Weighted feeding tube is present. The heart is enlarged. IMPRESSION: Worsening pulmonary edema
--- NOTE | 2018-06-14 14:00 | NUR ---
NURSE NOTES: Patient turned and repositioned. No new orders. Will continue plan of care.
--- NOTE | 2018-06-14 16:00 | NUR ---
NURSE NOTES: Patient repositioned. Remains on bipap. Sisiter called and got updates on patients plan of care. Requested to speak to primary Dr. Lew. Dr. Lew was texted to call the sister but has not responded yet. Will continue to monitor patient.
--- NOTE | 2018-06-14 18:00 | NUR ---
NURSE NOTES: Patient turned and repositioned. NO new order. VSS.
--- NOTE | 2018-06-14 18:38 | NUR ---
CASE MANAGEMENT: REVIEW SI: PANCREATITIS . ANEMIA . CHOLELITHIASIS EGD AND EUS 05/24 T 98.9 HR 85 RR 22 BP 107/57 SAT 99% BIPAP FIO2 45 H/H 8.3/27.3 NA 149 K 3.4 BUN 24 CR 1.8 IS: ZOSYN IV Q8HR ASA PO QD LOVENOX SQ Q24HR LOPRESSOR PO Q12HR INSULIN SQ AC/HS ICU STATUS DCP: PATIENT IS FROM HOME
--- NOTE | 2018-06-14 19:07 | NUR ---
HAND-OFF: Report given to Gino BLACK using SBAR. VSS. No distress noted.
--- NOTE | 2018-06-14 19:31 | General Progress Note ---
Assessment/Plan Assessment/Plan Assessment - Respiratory failure - Acute pancreatitis - Anemia - Leukocytosis - dysphagia - Azotemia - Urolithiasis - UTI - Cholelithiasis - DM - CAD/CABG - Gout Recommendations - pulmonary f/u - BIPAP - NJT feeds - follow labs and exam - may need PEG (would need to intubate for procedure) Subjective Allergies: Coded Allergies: SHELLFISH DERIVED (Verified Allergy, Unknown, swelling and itchiness, 05/14) Subjective On BIPAP Less confused, more calm NJT feeds started d/w PMD Objective Last 24 Hour Vital Signs Date Time Temp Pulse Resp B/P (MAP) Pulse Ox O2 Delivery O2 Flow Rate FiO2 06/14/18 19:18 81 19 100 Full Face 45 06/14/18 19:17 100 Bi-pap 45 06/14/18 19:17 Bi-pap 45 06/14/18 19:16 89 20 Bi-pap 45 06/14/18 19:00 78 22 128/65 (86) 100 06/14/18 18:00 80 22 120/60 (80) 100 06/14/18 17:09 122/65 06/14/18 17:09 80 122/64 06/14/18 17:07 83 21 100 Full Face 45 06/14/18 17:00 90 22 122/64 (83) 100 06/14/18 16:00 98.9 81 22 128/65 (86) 100 06/14/18 16:00 85 06/14/18 16:00 45 06/14/18 16:00 Bi-pap 06/14/18 15:00 94 22 122/60 (80) 100 06/14/18 14:57 87 20 100 Full Face 45 06/14/18 14:00 96 22 128/64 (85) 100 06/14/18 13:22 81 19 100 Full Face 45 06/14/18 13:00 89 22 122/68 (86) 99 06/14/18 12:00 88 06/14/18 12:00 Bi-pap 06/14/18 12:00 99.2 88 22 134/66 (88) 99 06/14/18 11:45 120/57 06/14/18 11:00 89 22 128/67 (87) 99 06/14/18 10:58 79 28 99 Full Face 45 06/14/18 10:06 45 06/14/18 10:00 84 22 124/65 (84) 99 06/14/18 09:00 80 25 118/60 (79) 99 06/14/18 09:00 79 28 99 Full Face 35 06/14/18 08:51 80 107/57 06/14/18 08:51 80 107/57 06/14/18 08:00 35 06/14/18 08:00 Bi-pap 06/14/18 08:00 98.8 77 25 110/54 (72) 99 06/14/18 08:00 87 06/14/18 07:14 94 21 100 Full Face 35 06/14/18 07:13 Bi-pap 35 06/14/18 07:13 100 Bi-pap 35 06/14/18 07:13 91 25 Bi-pap 35 06/14/18 07:00 83 25 112/59 (76) 99 06/14/18 06:00 90 25 113/61 (78) 97 06/14/18 05:46 126/56 06/14/18 05:29 76 20 99 Full Face 35 06/14/18 05:00 79 17 124/54 (77) 98 06/14/18 04:00 83 06/14/18 04:00 98.9 84 18 126/56 (79) 99 06/14/18 04:00 35 06/14/18 03:30 90 20 98 Facial 35 06/14/18 03:00 83 19 124/58 (80) 98 06/14/18 02:00 79 19 138/59 (85) 98 06/14/18 01:30 91 22 97 Facial 35 06/14/18 01:00 85 19 114/65 (81) 99 06/14/18 00:20 127/93 06/14/18 00:00 85 06/14/18 00:00 97.9 89 30 148/66 (93) 93 06/13/18 23:26 89 23 98 Full Face 35 06/13/18 23:00 82 20 102/64 (77) 99 06/13/18 22:00 80 18 133/73 (93) 100 06/13/18 21:18 75 24 98 Full Face 35 06/13/18 21:00 81 17 127/93 (104) 100 06/13/18 20:53 106 133/65 06/13/18 20:00 35 06/13/18 20:00 97.5 82 19 134/72 (92) 95 06/13/18 20:00 77 06/13/18 19:49 106 22 Bi-pap 35 06/13/18 19:49 Bi-pap 35 06/13/18 19:49 96 Bi-pap 35 06/13/18 19:30 76 25 97 Full Face 35 Intake and Output 06/13/18 06/14/18 18:59 06:59 Intake Total 770.0 ml 987.5 ml Output Total 200 ml 500 ml Balance 570.0 ml 487.5 ml Free Water 200 ml IV Total 770.0 ml 787.5 ml Output Urine Total 200 ml 500 ml # Voids 3 Laboratory Tests 06/14/18 05:00: White Blood Count 10.2, Red Blood Count 2.92L, Hemoglobin 8.3L, Hematocrit 27.3L , Mean Corpuscular Volume 94, Mean Corpuscular Hemoglobin 28.5, Mean Corpuscular Hemoglobin Concent 30.4L, Red Cell Distribution Width 21.7H, Platelet Count 262, Mean Platelet Volume 6.3L, Neutrophils (%) (Auto) 79.3H, Lymphocytes (%) (Auto) 8.8L, Monocytes (%) (Auto) 6.9, Eosinophils (%) (Auto) 4.1H, Basophils (%) (Auto) 1.0, Sodium Level 149H, Potassium Level 3.4L, Chloride Level 113H, Carbon Dioxide Level 25, Anion Gap 11, Blood Urea Nitrogen 24H, Creatinine 1.8H, Estimat Glomerular Filtration Rate 27.8, Glucose Level 136H, Calcium Level 8.1L 06/14/18 09:50: Arterial Blood pH 7.468H, Arterial Blood Partial Pressure CO2 34.3L, Arterial Blood Partial Pressure O2 69.8L, Arterial Blood HCO3 24.3, Arterial Blood Oxygen Saturation 93.0L, Arterial Blood Base Excess 0.8, Marlon Test Positive Height (Feet): 4 Height (Inches): 10.00 Weight (Pounds): 166 Objective WDWN NCAT,(+) BIPAP Neck supple Coarse BS RRR abd soft, ND restrained, confused Mary Jewell MD Jun 14, 2018 19:31
--- NOTE | 2018-06-14 20:00 | NUR ---
NURSE NOTES: NURSE NOTES: Pt is alert and oriented 2-3 with episode of forgetful, reality orientation provided. On bilateral soft wrist restraints, observed removing devices. On Bi-pap 15/, 45%. O2 sat 100%. No acute respiratory distress noted. Purewick in placed. Left UA PICC line intact no s/s of infiltration Running D5 at 50cc/hr. bed locked and in lowest position. Bed alarm on, Call light within reach, bed on lowest position.
--- NOTE | 2018-06-14 20:16 | General Progress Note ---
Assessment/Plan Assessment/Plan Assessment and Recs # Pancytopenia -- appears that initial hep and hiv are negative though final results to follow, liver shows no major hsm or cirrhosis, may consider meds or bone marrow process, smear reviewed, does have low albumin, has been hospitalized for some time, in and out since 04/30/18. Hiv and hepatitis panels are both negative --> query meds, review with ID, is on micafungin now, monitor counts closely --> given hgb downtrending and some nucleated reds on smear, will send off a flow cytometry --> nepogen 300mcg sq to maintain anc >1500 --> wbc trend : 1.7-->4.3-->3.1-->3.4-->7.7-->8.1--12-->15-->11-->14.6 # Anemia of chronic disease - monitor anemia panel --> hemolysis does not appear to be the case --> anemia panel reviewed and c/w acd --> hgb trend: 8.3-->9.2-->8.9-->8.7-->9-->7.7-->7 # Paroxysmal atrial fibrillation, due to CHADS-VASC score of 5, we require to keep anticoagulated, on metoprolol --> continue on apixaban # Hx of CAD, s/p CABG, ASA , atorvastatin and metoprolol. No wall motion abnormalities on Echo. LVEF ~55%. --> appreciate cards recs # Sinus tachycardia due to hypovolemia, resolved. # DKA, resolved. --> continue monitor # DM, non-compliant with medications. # Hx of HTN, controlled with metoprolol. # pancreatitis -- appreciate gi recs # increased LFT The timing of this note does not necessarily reflect the time of the patient was seen. Greatly appreciate consultation! Subjective ROS Limited/Unobtainable: Yes Allergies: Coded Allergies: SHELLFISH DERIVED (Verified Allergy, Unknown, swelling and itchiness, 05/14) Subjective 05/18: Pt is awake and comfortable, no events, leukopenia improved, wbc 4.3, plt 151 05/19: seen by bedside, awake, comfortable, plt 122 05/20: Pt is awake and comfortable, no events 05/21: Pt is seen in the room, resting in bed, no fevers or chills, wbc 8.7, plt 117 2/: Pt is resting in bed, awake, comfortable, no fevers or chills, no acute distress. 2: EGD and EUS done today, has no gallbladder stones, only pancreatitis, no events 2: no events, dermatitis has improved, off loading of heels, pancreatitis and dka better 2: Pt is awake, comfortable, no acute events overnight, hgb 8.6 05/27: seen by bedside, awake, comfortable, no events 05/28: resting in bed, awake, comfortable, no fevers or chills, no acute distress , No need for ERCP per GI, 05/31: Pt is awake and comfortable, no events 06/01: awake, comfortable, denies acute distress. 06/02: seen by bedside, awake, comfortable, no acute distress. wbc 15. 2: no acute events, denies any abdominal pain, wbc trending down at 11 today. 06/04: awake/drowsy in bed, breathing easily on nasal cannula, denies SOB and pain at this time. 06/06: anemia cotninues to worsen, may consider a bone marrow biopsy if patient approves 06/07: hgb 9.7, not eating well, remains lethargic 06/08: hgb is stable, respiratory status is worsened, and thus was transferred to the icu 06/09: seen by bedside,awake, comfortable, plan to insert NGT samanta 06/10: not eating well, remains lethargic 06/11: poor po intake but currently on BIPAP and not stable for PEG placement, NGTF on hold per pulm 06/13:Seen by bedside, less confused, on BIPAP, no events 06/14: seen by bedside, on BIPAP, NJT feeds, no events Objective Last 24 Hour Vital Signs Date Time Temp Pulse Resp B/P (MAP) Pulse Ox O2 Delivery O2 Flow Rate FiO2 06/14/18 19:18 81 19 100 Full Face 45 06/14/18 19:17 100 Bi-pap 45 06/14/18 19:17 Bi-pap 45 06/14/18 19:16 89 20 Bi-pap 45 06/14/18 19:00 78 22 128/65 (86) 100 06/14/18 18:00 80 22 120/60 (80) 100 06/14/18 17:09 122/65 06/14/18 17:09 80 122/64 06/14/18 17:07 83 21 100 Full Face 45 06/14/18 17:00 90 22 122/64 (83) 100 06/14/18 16:00 98.9 81 22 128/65 (86) 100 06/14/18 16:00 85 06/14/18 16:00 45 06/14/18 16:00 Bi-pap 06/14/18 15:00 94 22 122/60 (80) 100 06/14/18 14:57 87 20 100 Full Face 45 06/14/18 14:00 96 22 128/64 (85) 100 06/14/18 13:22 81 19 100 Full Face 45 06/14/18 13:00 89 22 122/68 (86) 99 06/14/18 12:00 88 06/14/18 12:00 Bi-pap 06/14/18 12:00 99.2 88 22 134/66 (88) 99 06/14/18 11:45 120/57 06/14/18 11:00 89 22 128/67 (87) 99 06/14/18 10:58 79 28 99 Full Face 45 06/14/18 10:06 45 06/14/18 10:00 84 22 124/65 (84) 99 06/14/18 09:00 80 25 118/60 (79) 99 06/14/18 09:00 79 28 99 Full Face 35 06/14/18 08:51 80 107/57 06/14/18 08:51 80 107/57 06/14/18 08:00 35 06/14/18 08:00 Bi-pap 06/14/18 08:00 98.8 77 25 110/54 (72) 99 06/14/18 08:00 87 06/14/18 07:14 94 21 100 Full Face 35 06/14/18 07:13 Bi-pap 35 06/14/18 07:13 100 Bi-pap 35 06/14/18 07:13 91 25 Bi-pap 35 06/14/18 07:00 83 25 112/59 (76) 99 06/14/18 06:00 90 25 113/61 (78) 97 06/14/18 05:46 126/56 06/14/18 05:29 76 20 99 Full Face 35 06/14/18 05:00 79 17 124/54 (77) 98 06/14/18 04:00 83 06/14/18 04:00 98.9 84 18 126/56 (79) 99 06/14/18 04:00 35 06/14/18 03:30 90 20 98 Facial 35 06/14/18 03:00 83 19 124/58 (80) 98 06/14/18 02:00 79 19 138/59 (85) 98 06/14/18 01:30 91 22 97 Facial 35 06/14/18 01:00 85 19 114/65 (81) 99 06/14/18 00:20 127/93 06/14/18 00:00 85 06/14/18 00:00 97.9 89 30 148/66 (93) 93 06/13/18 23:26 89 23 98 Full Face 35 06/13/18 23:00 82 20 102/64 (77) 99 06/13/18 22:00 80 18 133/73 (93) 100 06/13/18 21:18 75 24 98 Full Face 35 06/13/18 21:00 81 17 127/93 (104) 100 06/13/18 20:53 106 133/65 Intake and Output 06/13/18 06/14/18 19:00 07:00 Intake Total 742.5 ml 937.5 ml Output Total 200 ml 500 ml Balance 542.5 ml 437.5 ml Free Water 200 ml IV Total 742.5 ml 737.5 ml Output Urine Total 200 ml 500 ml # Voids 3 Laboratory Tests 06/14/18 05:00: White Blood Count 10.2, Red Blood Count 2.92L, Hemoglobin 8.3L, Hematocrit 27.3L , Mean Corpuscular Volume 94, Mean Corpuscular Hemoglobin 28.5, Mean Corpuscular Hemoglobin Concent 30.4L, Red Cell Distribution Width 21.7H, Platelet Count 262, Mean Platelet Volume 6.3L, Neutrophils (%) (Auto) 79.3H, Lymphocytes (%) (Auto) 8.8L, Monocytes (%) (Auto) 6.9, Eosinophils (%) (Auto) 4.1H, Basophils (%) (Auto) 1.0, Sodium Level 149H, Potassium Level 3.4L, Chloride Level 113H, Carbon Dioxide Level 25, Anion Gap 11, Blood Urea Nitrogen 24H, Creatinine 1.8H, Estimat Glomerular Filtration Rate 27.8, Glucose Level 136H, Calcium Level 8.1L 06/14/18 09:50: Arterial Blood pH 7.468H, Arterial Blood Partial Pressure CO2 34.3L, Arterial Blood Partial Pressure O2 69.8L, Arterial Blood HCO3 24.3, Arterial Blood Oxygen Saturation 93.0L, Arterial Blood Base Excess 0.8, Marlon Test Positive Height (Feet): 4 Height (Inches): 10.00 Weight (Pounds): 166 Objective PHYSICAL EXAMINATION: GENERAL: Pleasant [place] woman, tired HEENT: Normocephalic and atraumatic. Sclerae anicteric. Oropharynx clear. NECK: Supple. CHEST: bilateral crackles and ++ nc CARDIOVASCULAR: Revealed regular rate. ABDOMEN: Soft. Good bowel sounds. There is no organomegaly or tenderness. Anterior chest and abdomen scars were as expected. EXTREMITIES: Revealed no edema. Armando Bowen MD Jun 14, 2018 20:16
[2018-06-14] MEDS: OLANZapine 2.5mg tab ORAL SCH (21:14)
[2018-06-14] MEDS: Dyna-Hex 2% Top Sol 2oz TOPIC SCH (21:16)
--- NOTE | 2018-06-14 22:00 | NUR ---
NURSE NOTES: Patient repositioned, oral care provided. Spoke with daughter over the phone and gave her updates. Patient to come in AM.
[2018-06-15] VITALS (25 sets, daily range): BP systolic 103–137; BP diastolic 47–71
--- NOTE | 2018-06-15 | NUR ---
NURSE NOTES: Patient repositioned, and provided oral care. Afebrile. Remains on BIPAP, oral moisturizer provided.
[2018-06-15] MEDS: HydrALAZINE 25mg tab ORAL SCH ×4 (00:32→17:56)
--- NOTE | 2018-06-15 02:00 | NUR ---
NURSE NOTES: Repositioned, oral moistener provided. Skin remains intact, Maintenance fluids ongoing.
--- NOTE | 2018-06-15 04:00 | NUR ---
NURSE NOTES: Patient cleaned and repositioned, oral care provided, Vitals remains stable.
[2018-06-15] MEDS: Piperacillin/Tazobactam 3.375 GM in D5W 110 ML IVPB SCH ×2 (05:12→14:34)
[2018-06-15] MEDS: NovoLOG Insulin Flexpen SUBQ SCH ×4 (05:13→20:48)
--- NOTE | 2018-06-15 06:22 | NUR ---
NURSE NOTES: Pt is alert and oriented 2-3 with episode of forgetful, reality orientation provided. On bilateral soft wrist restraints, observed removing devices. On Bi-pap 01/09, 45%. O2 sat 100%. No acute respiratory distress noted. Purewick in placed. Left UA PICC line intact no s/s of infiltration Running D5 at 50cc/hr. bed locked and in lowest position. Bed alarm on, Call light within reach, bed on lowest position.
--- NOTE | 2018-06-15 07:09 | NUR ---
RESPIRATORY NOTE: received pt on bipap with current settings. took pt off and placed on VM 45%. no visible redness around facial area. pt is awake and alert and will cont to monitor and titrate fio2.
--- NOTE | 2018-06-15 07:54 | General Progress Note ---
Assessment/Plan Assessment/Plan Impression Diabetic ketoacidosis Anemia Transaminitis of unclear etiology Severe protein calorie malnutrition Evidence of pancreatitis, better Acute renal failure, improved Hyperglycemia Diabetes Hyponatremia Metabolic acidosis Hypercholesterolemia fever oral ulcers afib with RVR leukopenia pancreatitis CVA pleural effusions pulmonary edema PLAN nutrition on antibiotics on lovenox on BIPAP needs trach lasix still very weak and will need snf monitor labs needs GT impression, plan, and exam edited and reviewed in detail care discussed with RN Subjective Allergies: Coded Allergies: SHELLFISH DERIVED (Verified Allergy, Unknown, swelling and itchiness, 05/14) Subjective care noted NJT in place NAD lethargic on BIPAP d/w sister, discussed trach Objective Last 24 Hour Vital Signs Date Time Temp Pulse Resp B/P (MAP) Pulse Ox O2 Delivery O2 Flow Rate FiO2 06/15/18 07:06 Bi-pap 45 06/15/18 07:06 100 Bi-pap 45 06/15/18 07:05 66 22 Bi-pap 45 06/15/18 07:00 79 18 131/62 (85) 100 06/15/18 06:00 85 20 127/65 (85) 100 06/15/18 05:24 77 21 100 Facial 45 06/15/18 05:12 105/47 06/15/18 05:00 69 16 120/59 (79) 100 06/15/18 04:00 71 06/15/18 04:00 45 06/15/18 04:00 99.3 65 17 124/57 (79) 100 06/15/18 03:05 89 21 100 Facial 45 06/15/18 03:00 66 19 110/55 (73) 100 06/15/18 02:00 67 19 112/56 (74) 100 06/15/18 01:29 68 20 100 Full Face 45 06/15/18 01:00 65 15 105/47 (66) 100 06/15/18 00:32 114/55 06/15/18 00:00 Bi-pap 06/15/18 00:00 98.3 63 17 114/55 (74) 100 06/15/18 00:00 59 06/14/18 23:06 74 20 100 Full Face 45 06/14/18 23:00 69 18 115/82 (93) 100 06/14/18 22:00 71 17 131/61 (84) 100 06/14/18 21:15 82 128/65 06/14/18 21:00 81 16 121/55 (77) 100 06/14/18 20:52 82 20 100 Full Face 45 06/14/18 20:00 97.5 85 19 134/47 (76) 100 06/14/18 20:00 65 06/14/18 20:00 Bi-pap 06/14/18 20:00 45 06/14/18 19:18 81 19 100 Full Face 45 06/14/18 19:17 100 Bi-pap 45 06/14/18 19:17 Bi-pap 45 06/14/18 19:16 89 20 Bi-pap 45 06/14/18 19:00 78 22 128/65 (86) 100 06/14/18 18:00 80 22 120/60 (80) 100 06/14/18 17:09 122/65 06/14/18 17:09 80 122/64 06/14/18 17:07 83 21 100 Full Face 45 06/14/18 17:00 90 22 122/64 (83) 100 06/14/18 16:00 98.9 81 22 128/65 (86) 100 06/14/18 16:00 85 06/14/18 16:00 45 06/14/18 16:00 Bi-pap 06/14/18 15:00 94 22 122/60 (80) 100 06/14/18 14:57 87 20 100 Full Face 45 06/14/18 14:00 96 22 128/64 (85) 100 06/14/18 13:22 81 19 100 Full Face 45 06/14/18 13:00 89 22 122/68 (86) 99 06/14/18 12:00 88 06/14/18 12:00 Bi-pap 06/14/18 12:00 99.2 88 22 134/66 (88) 99 06/14/18 11:45 120/57 06/14/18 11:00 89 22 128/67 (87) 99 06/14/18 10:58 79 28 99 Full Face 45 06/14/18 10:06 45 06/14/18 10:00 84 22 124/65 (84) 99 06/14/18 09:00 80 25 118/60 (79) 99 06/14/18 09:00 79 28 99 Full Face 35 06/14/18 08:51 80 107/57 06/14/18 08:51 80 107/57 06/14/18 08:00 35 06/14/18 08:00 Bi-pap 06/14/18 08:00 98.8 77 25 110/54 (72) 99 06/14/18 08:00 87 Intake and Output 06/14/18 06/15/18 19:00 07:00 Intake Total 710.0 ml 965.0 ml Output Total 340 ml 700 ml Balance 370.0 ml 265.0 ml IV Total 710.0 ml 715.0 ml Tube Feeding 250 ml Output Urine Total 340 ml 700 ml # Bowel Movements 1 Laboratory Tests 06/14/18 09:50: Arterial Blood pH 7.468H, Arterial Blood Partial Pressure CO2 34.3L, Arterial Blood Partial Pressure O2 69.8L, Arterial Blood HCO3 24.3, Arterial Blood Oxygen Saturation 93.0L, Arterial Blood Base Excess 0.8, Marlon Test Positive Height (Feet): 4 Height (Inches): 10.00 Weight (Pounds): 165 Objective WDWN lethargic on BIPAP reduced breath sounds bilaterally without rhonchi or wheeze S1S2 RRR without MRG NABS nontender no HSM; NJT in place no CCE weak Jesus Lew MD Jun 15, 2018 07:54
--- NOTE | 2018-06-15 10:39 | Infectious Diseases Prog Note ---
"Assessment/Plan Assessment/Plan antibiotics : zosyn A 1. klebsiella | streptococcus pneumonia 2. herpes of lip s/p rx 3. diabetic ketoacidosis resolved 4. respiratory failure 5. hypertension 6. leucocytosis improving 7. renal failure P 1. continue zosyn 2. will follow up cultures Subjective ROS Limited/Unobtainable: Yes Allergies: Coded Allergies: SHELLFISH DERIVED (Verified Allergy, Unknown, swelling and itchiness, 05/14) Objective Vital Signs Last 24 Hour Vital Signs Date Time Temp Pulse Resp B/P (MAP) Pulse Ox O2 Delivery O2 Flow Rate FiO2 06/15/18 08:50 73 20 99 Facial 40 06/15/18 07:06 Bi-pap 45 06/15/18 07:06 100 Bi-pap 45 06/15/18 07:05 66 22 Bi-pap 45 06/15/18 07:00 79 18 131/62 (85) 100 06/15/18 06:00 85 20 127/65 (85) 100 06/15/18 05:24 77 21 100 Facial 45 06/15/18 05:12 105/47 06/15/18 05:00 69 16 120/59 (79) 100 06/15/18 04:00 71 06/15/18 04:00 45 06/15/18 04:00 99.3 65 17 124/57 (79) 100 06/15/18 03:05 89 21 100 Facial 45 06/15/18 03:00 66 19 110/55 (73) 100 06/15/18 02:00 67 19 112/56 (74) 100 06/15/18 01:29 68 20 100 Full Face 45 06/15/18 01:00 65 15 105/47 (66) 100 06/15/18 00:32 114/55 06/15/18 00:00 Bi-pap 06/15/18 00:00 98.3 63 17 114/55 (74) 100 06/15/18 00:00 59 06/14/18 23:06 74 20 100 Full Face 45 06/14/18 23:00 69 18 115/82 (93) 100 06/14/18 22:00 71 17 131/61 (84) 100 06/14/18 21:15 82 128/65 06/14/18 21:00 81 16 121/55 (77) 100 06/14/18 20:52 82 20 100 Full Face 45 06/14/18 20:00 97.5 85 19 134/47 (76) 100 06/14/18 20:00 65 06/14/18 20:00 Bi-pap 06/14/18 20:00 45 06/14/18 19:18 81 19 100 Full Face 45 06/14/18 19:17 100 Bi-pap 45 06/14/18 19:17 Bi-pap 45 06/14/18 19:16 89 20 Bi-pap 45 06/14/18 19:00 78 22 128/65 (86) 100 06/14/18 18:00 80 22 120/60 (80) 100 06/14/18 17:09 122/65 06/14/18 17:09 80 122/64 06/14/18 17:07 83 21 100 Full Face 45 06/14/18 17:00 90 22 122/64 (83) 100 06/14/18 16:00 98.9 81 22 128/65 (86) 100 06/14/18 16:00 85 06/14/18 16:00 45 06/14/18 16:00 Bi-pap 06/14/18 15:00 94 22 122/60 (80) 100 06/14/18 14:57 87 20 100 Full Face 45 06/14/18 14:00 96 22 128/64 (85) 100 06/14/18 13:22 81 19 100 Full Face 45 06/14/18 13:00 89 22 122/68 (86) 99 06/14/18 12:00 88 06/14/18 12:00 Bi-pap 06/14/18 12:00 99.2 88 22 134/66 (88) 99 06/14/18 11:45 120/57 06/14/18 11:00 89 22 128/67 (87) 99 06/14/18 10:58 79 28 99 Full Face 45 Height (Feet): 4 Height (Inches): 10.00 Weight (Pounds): 165 HEENT: other - bipap Respiratory/Chest: lungs clear Cardiovascular: normal rate, regular rhythm, no gallop/murmur Abdomen: soft, non tender Extremities: other - + edema, left arm PICC Current Medications Medications (Trade) Dose Ordered Sig/Ellen Route PRN Reason Start Time Stop Time Status Last Admin Dose Admin Acetaminophen (Tylenol) 650 mg Q4H PRN ORAL Mild Pain/Temp > 100.5 06/08/18 15:00 07/02/18 14:59 Al Hydroxide/Mg Hydroxide (Mylanta) 30 ml Q6H PRN ORAL Abdominal cramps 06/08/18 15:00 07/02/18 14:59 Amlodipine Besylate (Norvasc) 5 mg BID ORAL 06/08/18 18:00 06/28/18 08:59 06/12/18 18:13 Aspirin (ASA) 81 mg DAILY ORAL 06/09/18 09:00 06/24/18 08:59 06/14/18 08:57 Chlorhexidine Gluconate (Leora-Hex 2%) 1 applic DAILY@2000 TOPIC 06/08/18 20:00 06/24/18 19:59 06/14/18 21:16 Enoxaparin Sodium (Lovenox) 80 mg Q24H SUBQ 06/09/18 09:00 07/03/18 08:59 06/14/18 08:59 Haloperidol Lactate (Haldol) 5 mg Q6H PRN IM Agitation 06/08/18 15:00 07/02/18 14:59 Hydralazine HCl (Apresoline) 25 mg Q6HR ORAL 06/08/18 18:00 07/02/18 00:00 06/15/18 05:12 Insulin Aspart (NovoLOG) BEFORE MEALS AND HS SUBQ 06/08/18 16:30 07/08/18 16:29 06/15/18 05:13 Lansoprazole (Prevacid) 30 mg DAILY GT 06/11/18 09:00 07/11/18 08:59 06/14/18 08:59 Magnesium Hydroxide (Mom) 30 ml DAILYPRN PRN ORAL Constipation 06/08/18 15:00 07/02/18 14:59 Metoprolol Tartrate (Lopressor) 5 mg Q2H PRN IVP For High Blood Pressure 06/08/18 15:00 06/23/18 16:59 Metoprolol Tartrate (Lopressor) 50 mg Q12HR ORAL 06/08/18 21:00 06/26/18 20:59 06/14/18 21:15 Miconazole Nitrate (Miconazole Nitrate) 1 applic BID TOPIC 06/09/18 18:30 07/09/18 18:29 06/14/18 17:09 Olanzapine (ZyPREXA) 2.5 mg BEDTIME ORAL 06/08/18 21:00 07/01/18 20:59 06/14/18 21:14 Piperacillin Sod/ Tazobactam Sod 3.375 gm/Dextrose 110 ml @ 27.5 mls/hr Q8HR IVPB 06/09/18 14:00 06/16/18 13:59 06/15/18 05:12 Khadra Melendez MD Jun 15, 2018 10:39"
--- NOTE | 2018-06-15 11:30 | NUR ---
NURSE NOTES: Report received from Debbie Ruiz CH RN,pt awake,noted no resp distress on BIPAP 15/5 Fio2 45%,tolerating well,no signs of pain or discomfort SR on the monitor,NGTF Glucerna 1.5 at 45 nl/hr,no residual in placed per auscultation,incontinent of stools and urine on Purewick,IV site to OMAR PICC line with IVF D5W T 50 ML/HR,skin warm and dry,SR up x2 bilat wrist restraints in placed,HOB elevated,bed lock in lowest position,daughter at bedside.will continue with plans of care.
--- NOTE | 2018-06-15 11:57 | NUR ---
RD ASSESSMENT & RECOMMENDATIONS SEE CARE ACTIVITY FOR COMPLETE ASSESSMENT DAILY ESTIMATED NEEDS: Needs based on DM, cardiac, pulmonary/ 54kg abw 25-30 kcals/kg 0069-6141 total kcals 1-1.5 g protein/kg 54-81 g total protein 25-30 mL/kg 6970-8990 total fluid mLs NUTRITION DIAGNOSIS: 1) Altered nutrition related lab values R/T diabetes, clinical condition as evidenced by A1C 11.4, increased from 8.1 in August 2017, DKA w/ adm ML=273-> 230 209 improved, elev BNP (2846), elev creat (1.9), elev LFTs, trending back down, elev lipase (>2000 -> 554 trend down). 2) Swallowing difficulty R/T dysphagia, h/o old CVA + subacute CVA, decreased alertness, respiratory status as evidenced by ACCOUNT INSTALLATION SPECIALIST now recommends halfway nonoral feedings, s/p OGT insertion, TF held at this time as pt on BIPAP. CURRENT TF: Glucerna 1.5 @ 45ml/hr x 24 hrs-> HELD PO DIET RECOMMENDATIONS: (IF SAFE FOR PO -> Rec liberalized diet w/ poor PO + Texture per ACCOUNT INSTALLATION SPECIALIST) ENTERAL NUTRITION RECOMMENDATIONS: Glucerna 1.5 @ 45ml/hr x 24 hrs to provide 1080ml, 1620kcal, 83g prot, 820ml free water * Resume TF when medically appropriate * HOB over 30 degrees/ water flush per MD ADDITIONAL RECOMMENDATIONS: 1) RE-calibrated bed wt for accurate CBW 2) Monitor BIPAP needs, adjust TF rate as needed (TF held while on BIPAP at this time) 3) If PO continues-> monitor PO acceptance and tolerance -> rec liberalized diet of regular w/ poor PO intake 4) Consider long acting insulin for improved BG control 5) Monitor lytes closely, replete as needed, rec to check f/up phos and mag
--- NOTE | 2018-06-15 12:51 | NUR ---
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 98.3 HR 74 RR 18 B/P 127/71 BIPAP 15/5 FIO2 45% IS: ZOSYN IV LOVENOX SUBC ASA PO ICU STATUS
[2018-06-15] MEDS: Aspirin Baby 81mg ORAL SCH (13:29)
[2018-06-15] MEDS: Enoxaparin 80mg Inj SUBQ SCH (13:31)
[2018-06-15] MEDS: Metoprolol Tartrate 50mg tab ORAL SCH ×2 (13:37→20:42)
--- NOTE | 2018-06-15 16:00 | NUR ---
NURSE NOTES: Family member,daughters at bedside,conversing with pt re agreeing with plans for tracheostomy and GT insertion.family members and daughter woulld like to have a conference with Dr Lew.will endorse to incoming RN.
--- NOTE | 2018-06-15 16:49 | General Progress Note ---
Assessment/Plan Assessment/Plan Assessment - Respiratory failure - Acute pancreatitis - Anemia - Leukocytosis - dysphagia - Azotemia - Urolithiasis - UTI - Cholelithiasis - DM - CAD/CABG - Gout Recommendations - pulmonary f/u - BIPAP - NJT feeds - follow labs and exam - may need PEG - will place after trach Subjective Allergies: Coded Allergies: SHELLFISH DERIVED (Verified Allergy, Unknown, swelling and itchiness, 05/14) Subjective On BIPAP Less confused, more calm NJT feeds started Objective Last 24 Hour Vital Signs Date Time Temp Pulse Resp B/P (MAP) Pulse Ox O2 Delivery O2 Flow Rate FiO2 06/15/18 15:03 67 20 99 Full Face 40 06/15/18 15:00 65 20 111/62 (78) 98 06/15/18 14:00 67 20 118/55 (76) 98 06/15/18 13:37 82 131/59 06/15/18 13:13 131/59 06/15/18 13:00 83 21 131/59 (83) 96 06/15/18 12:41 77 20 100 Full Face 40 06/15/18 12:01 80 06/15/18 12:00 98.3 74 18 127/71 (89) 100 06/15/18 12:00 45 06/15/18 11:04 88 19 99 Facial 40 06/15/18 11:00 69 20 137/71 (93) 100 06/15/18 10:00 86 18 125/58 (80) 100 06/15/18 09:00 70 18 119/55 (76) 100 06/15/18 08:50 73 20 99 Facial 40 06/15/18 08:00 98.7 74 17 103/59 (74) 100 06/15/18 08:00 74 06/15/18 08:00 45 06/15/18 07:06 Bi-pap 45 06/15/18 07:06 100 Bi-pap 45 06/15/18 07:05 66 22 Bi-pap 45 06/15/18 07:00 79 18 131/62 (85) 100 06/15/18 06:00 85 20 127/65 (85) 100 06/15/18 05:24 77 21 100 Facial 45 06/15/18 05:12 105/47 06/15/18 05:00 69 16 120/59 (79) 100 06/15/18 04:00 71 06/15/18 04:00 45 06/15/18 04:00 99.3 65 17 124/57 (79) 100 06/15/18 03:05 89 21 100 Facial 45 06/15/18 03:00 66 19 110/55 (73) 100 06/15/18 02:00 67 19 112/56 (74) 100 06/15/18 01:29 68 20 100 Full Face 45 06/15/18 01:00 65 15 105/47 (66) 100 06/15/18 00:32 114/55 06/15/18 00:00 Bi-pap 06/15/18 00:00 98.3 63 17 114/55 (74) 100 06/15/18 00:00 59 06/14/18 23:06 74 20 100 Full Face 45 06/14/18 23:00 69 18 115/82 (93) 100 06/14/18 22:00 71 17 131/61 (84) 100 06/14/18 21:15 82 128/65 06/14/18 21:00 81 16 121/55 (77) 100 06/14/18 20:52 82 20 100 Full Face 45 06/14/18 20:00 97.5 85 19 134/47 (76) 100 06/14/18 20:00 65 06/14/18 20:00 Bi-pap 06/14/18 20:00 45 06/14/18 19:18 81 19 100 Full Face 45 06/14/18 19:17 100 Bi-pap 45 06/14/18 19:17 Bi-pap 45 06/14/18 19:16 89 20 Bi-pap 45 06/14/18 19:00 78 22 128/65 (86) 100 06/14/18 18:00 80 22 120/60 (80) 100 06/14/18 17:09 122/65 06/14/18 17:09 80 122/64 06/14/18 17:07 83 21 100 Full Face 45 06/14/18 17:00 90 22 122/64 (83) 100 Intake and Output 06/14/18 06/15/18 18:59 06:59 Intake Total 660.0 ml 892.5 ml Output Total 340 ml 700 ml Balance 320.0 ml 192.5 ml IV Total 660.0 ml 687.5 ml Tube Feeding 205 ml Output Urine Total 340 ml 700 ml # Bowel Movements 1 Height (Feet): 4 Height (Inches): 10.00 Weight (Pounds): 165 Objective WDWN NCAT,(+) BIPAP Neck supple Coarse BS RRR abd soft, ND restrained, confused Mary Jewell MD Jun 15, 2018 16:49
[2018-06-15] MEDS: Miconazole 2% Cream 30gm TOPIC SCH ×2 (18:00→18:01)
--- NOTE | 2018-06-15 19:00 | NUR ---
NURSE NOTES: Pt with BM again.keep dry and clean,turned and repositioned.
--- NOTE | 2018-06-15 19:23 | NUR ---
HAND-OFF: Report given to Percy Bang RN.
--- NOTE | 2018-06-15 19:35 | NUR ---
RESPIRATORY NOTE: Received pt on current settings of IPAP 15, EPAP 5 FiO2 40%, back up rate of 18. pt is awake and tolerating settings for now. will continue to monitor. pt on full facial mask with tape to prevent from skin breakdown. no s/s of respiratory distress noted. bipap is plugged into red outlet, alarms are on and audible.
--- NOTE | 2018-06-15 19:40 | NUR ---
NURSE NOTES: Recvd.Awake alert,able to follow simple command.occ.forgot limlitation,on bila.soft wrist restraints prev.self injury.On BIPAP full face mask.See settings.Sat 99-100%.HOB>30'.NGT Feeding in progress.Res-0.Inct of loose br.stool,Made clean and dry.Pos.to comfort.
--- NOTE | 2018-06-15 19:55 | General Progress Note ---
Assessment/Plan Assessment/Plan Assessment and Recs # Pancytopenia -- appears that initial hep and hiv are negative though final results to follow, liver shows no major hsm or cirrhosis, may consider meds or bone marrow process, smear reviewed, does have low albumin, has been hospitalized for some time, in and out since 04/30/18. Hiv and hepatitis panels are both negative --> query meds, review with ID, is on micafungin now, monitor counts closely --> given hgb downtrending and some nucleated reds on smear, will send off a flow cytometry --> nepogen 300mcg sq to maintain anc >1500 --> wbc trend : 1.7-->4.3-->3.1-->3.4-->7.7-->8.1--12-->15-->11-->14.6 # Anemia of chronic disease - monitor anemia panel --> hemolysis does not appear to be the case --> anemia panel reviewed and c/w acd --> hgb trend: 8.3-->9.2-->8.9-->8.7-->9-->7.7-->7--->8 # Paroxysmal atrial fibrillation, due to CHADS-VASC score of 5, we require to keep anticoagulated, on metoprolol --> continue on apixaban # Hx of CAD, s/p CABG, ASA , atorvastatin and metoprolol. No wall motion abnormalities on Echo. LVEF ~55%. --> appreciate cards recs # Sinus tachycardia due to hypovolemia, resolved. # DKA, resolved. --> continue monitor # DM, non-compliant with medications. # Hx of HTN, controlled with metoprolol. # pancreatitis -- appreciate gi recs # increased LFT The timing of this note does not necessarily reflect the time of the patient was seen. Greatly appreciate consultation! Subjective ROS Limited/Unobtainable: Yes Allergies: Coded Allergies: SHELLFISH DERIVED (Verified Allergy, Unknown, swelling and itchiness, 05/14) Subjective 05/18: Pt is awake and comfortable, no events, leukopenia improved, wbc 4.3, plt 151 05/19: seen by bedside, awake, comfortable, plt 122 05/20: Pt is awake and comfortable, no events 05/21: Pt is seen in the room, resting in bed, no fevers or chills, wbc 8.7, plt 117 2/: Pt is resting in bed, awake, comfortable, no fevers or chills, no acute distress. 2: EGD and EUS done today, has no gallbladder stones, only pancreatitis, no events 2: no events, dermatitis has improved, off loading of heels, pancreatitis and dka better 2: Pt is awake, comfortable, no acute events overnight, hgb 8.6 2: seen by bedside, awake, comfortable, no events 05/28: resting in bed, awake, comfortable, no fevers or chills, no acute distress , No need for ERCP per GI, 05/31: Pt is awake and comfortable, no events 06/01: awake, comfortable, denies acute distress. 06/02: seen by bedside, awake, comfortable, no acute distress. wbc 15. 06/03: no acute events, denies any abdominal pain, wbc trending down at 11 today. 06/04: awake/drowsy in bed, breathing easily on nasal cannula, denies SOB and pain at this time. 06/06: anemia cotninues to worsen, may consider a bone marrow biopsy if patient approves 06/07: hgb 9.7, not eating well, remains lethargic 06/08: hgb is stable, respiratory status is worsened, and thus was transferred to the icu 06/09: seen by bedside,awake, comfortable, plan to insert NGT samanta 06/10: not eating well, remains lethargic 06/11: poor po intake but currently on BIPAP and not stable for PEG placement, NGTF on hold per pulm 06/13:Seen by bedside, less confused, on BIPAP, no events 06/14: seen by bedside, on BIPAP, NJT feeds, no events 06/15: On BIPAP, Less confused, NJT feeds started, no events Objective Last 24 Hour Vital Signs Date Time Temp Pulse Resp B/P (MAP) Pulse Ox O2 Delivery O2 Flow Rate FiO2 06/15/18 19:33 99 Bi-pap 40 06/15/18 19:33 74 27 99 Full Face 40 06/15/18 19:00 72 20 120/52 (74) 100 06/15/18 18:05 70 26 126/64 (84) 100 06/15/18 18:00 73 114/58 06/15/18 17:56 114/58 06/15/18 17:56 73 114/58 06/15/18 17:01 65 18 113/57 (75) 99 06/15/18 16:52 68 26 99 Full Face 40 06/15/18 16:00 98.0 67 20 112/57 (75) 98 06/15/18 16:00 45 06/15/18 16:00 66 06/15/18 15:03 67 20 99 Full Face 40 06/15/18 15:00 65 20 111/62 (78) 98 06/15/18 14:00 67 20 118/55 (76) 98 06/15/18 13:37 82 131/59 06/15/18 13:13 131/59 06/15/18 13:00 83 21 131/59 (83) 96 06/15/18 12:41 77 20 100 Full Face 40 06/15/18 12:01 80 06/15/18 12:00 98.3 74 18 127/71 (89) 100 06/15/18 12:00 45 06/15/18 11:04 88 19 99 Facial 40 06/15/18 11:00 69 20 137/71 (93) 100 06/15/18 10:00 86 18 125/58 (80) 100 06/15/18 09:00 70 18 119/55 (76) 100 06/15/18 08:50 73 20 99 Facial 40 06/15/18 08:00 98.7 74 17 103/59 (74) 100 06/15/18 08:00 74 06/15/18 08:00 45 06/15/18 07:06 Bi-pap 45 06/15/18 07:06 100 Bi-pap 45 06/15/18 07:05 66 22 Bi-pap 45 06/15/18 07:00 79 18 131/62 (85) 100 06/15/18 06:00 85 20 127/65 (85) 100 06/15/18 05:24 77 21 100 Facial 45 06/15/18 05:12 105/47 06/15/18 05:00 69 16 120/59 (79) 100 06/15/18 04:00 71 06/15/18 04:00 45 06/15/18 04:00 99.3 65 17 124/57 (79) 100 06/15/18 03:05 89 21 100 Facial 45 06/15/18 03:00 66 19 110/55 (73) 100 06/15/18 02:00 67 19 112/56 (74) 100 06/15/18 01:29 68 20 100 Full Face 45 06/15/18 01:00 65 15 105/47 (66) 100 06/15/18 00:32 114/55 06/15/18 00:00 Bi-pap 06/15/18 00:00 98.3 63 17 114/55 (74) 100 06/15/18 00:00 59 06/14/18 23:06 74 20 100 Full Face 45 06/14/18 23:00 69 18 115/82 (93) 100 06/14/18 22:00 71 17 131/61 (84) 100 06/14/18 21:15 82 128/65 06/14/18 21:00 81 16 121/55 (77) 100 06/14/18 20:52 82 20 100 Full Face 45 06/14/18 20:00 97.5 85 19 134/47 (76) 100 06/14/18 20:00 65 06/14/18 20:00 Bi-pap 06/14/18 20:00 45 Intake and Output 06/14/18 06/15/18 18:59 06:59 Intake Total 660.0 ml 892.5 ml Output Total 340 ml 700 ml Balance 320.0 ml 192.5 ml IV Total 660.0 ml 687.5 ml Tube Feeding 205 ml Output Urine Total 340 ml 700 ml # Bowel Movements 1 Height (Feet): 4 Height (Inches): 10.00 Weight (Pounds): 165 Objective PHYSICAL EXAMINATION: GENERAL: [place] woman, tired HEENT: Normocephalic and atraumatic. Sclerae anicteric. Oropharynx clear. NECK: Supple. CHEST: bilateral crackles and ++ nc CARDIOVASCULAR: Revealed regular rate. ABDOMEN: Soft. Good bowel sounds. There is no organomegaly or tenderness. Anterior chest and abdomen scars were as expected. EXTREMITIES: Revealed no edema. Armando Bowen MD Jun 15, 2018 19:55
[2018-06-15] MEDS: Dyna-Hex 2% Top Sol 2oz TOPIC SCH (20:08)
[2018-06-15] MEDS: OLANZapine 2.5mg tab ORAL SCH (20:42)
--- NOTE | 2018-06-15 22:10 | NUR ---
NURSE NOTES: HS Care provided.Pos chg.Backrub with Lotion.Due medical engineer.No distress.
--- NOTE | 2018-06-15 23:52 | Cardiology Progress Note ---
Assessment/Plan Assessment/Plan 1. Paroxysmal atrial fibrillation, in sinus rhythm now, due to CHADS-VASC score of 5, continue enoxaparin and metoprolol. 2. Hx of CAD, s/p CABG, ASA , atorvastatin and metoprolol. No wall motion abnormalities on Echo, LVEF ~55%. 3. Sinus tachycardia, resolved, likely due to hypovolemia. 4. DKA, resolved. 5. DM 6. HTN, well controlled, continue amlodipine, metoprolol and hydralazine. 7. Severe pulmonary HTN. 8. MAMADOU, creatinine down to 1.7. 9. Hypokalemia, resolved, K at 3.7. Subjective Subjective Sinus rhythm at rate of 66. On full face mask oxygen, FiO2 40%. Objective Last 24 Hour Vital Signs Date Time Temp Pulse Resp B/P (MAP) Pulse Ox O2 Delivery O2 Flow Rate FiO2 06/15/18 23:21 66 28 98 Full Face 40 06/15/18 21:00 67 27 128/60 (82) 98 06/15/18 20:56 65 24 99 Full Face 40 06/15/18 20:42 65 119/59 06/15/18 20:00 98.3 74 25 119/59 (79) 99 06/15/18 20:00 74 06/15/18 20:00 40 06/15/18 19:33 99 Bi-pap 40 06/15/18 19:33 74 27 99 Full Face 40 06/15/18 19:00 72 20 120/52 (74) 100 06/15/18 18:05 70 26 126/64 (84) 100 06/15/18 18:00 73 114/58 06/15/18 17:56 114/58 06/15/18 17:56 73 114/58 06/15/18 17:01 65 18 113/57 (75) 99 06/15/18 16:52 68 26 99 Full Face 40 06/15/18 16:00 98.0 67 20 112/57 (75) 98 06/15/18 16:00 45 06/15/18 16:00 66 06/15/18 15:03 67 20 99 Full Face 40 06/15/18 15:00 65 20 111/62 (78) 98 06/15/18 14:00 67 20 118/55 (76) 98 06/15/18 13:37 82 131/59 06/15/18 13:13 131/59 06/15/18 13:00 83 21 131/59 (83) 96 06/15/18 12:41 77 20 100 Full Face 40 06/15/18 12:01 80 06/15/18 12:00 98.3 74 18 127/71 (89) 100 06/15/18 12:00 45 06/15/18 11:04 88 19 99 Facial 40 06/15/18 11:00 69 20 137/71 (93) 100 06/15/18 10:00 86 18 125/58 (80) 100 06/15/18 09:00 70 18 119/55 (76) 100 06/15/18 08:50 73 20 99 Facial 40 06/15/18 08:00 98.7 74 17 103/59 (74) 100 06/15/18 08:00 74 06/15/18 08:00 45 06/15/18 07:06 Bi-pap 45 06/15/18 07:06 100 Bi-pap 45 06/15/18 07:05 66 22 Bi-pap 45 06/15/18 07:00 79 18 131/62 (85) 100 06/15/18 06:00 85 20 127/65 (85) 100 06/15/18 05:24 77 21 100 Facial 45 06/15/18 05:12 105/47 06/15/18 05:00 69 16 120/59 (79) 100 06/15/18 04:00 71 06/15/18 04:00 45 06/15/18 04:00 99.3 65 17 124/57 (79) 100 06/15/18 03:05 89 21 100 Facial 45 06/15/18 03:00 66 19 110/55 (73) 100 06/15/18 02:00 67 19 112/56 (74) 100 06/15/18 01:29 68 20 100 Full Face 45 06/15/18 01:00 65 15 105/47 (66) 100 06/15/18 00:32 114/55 06/15/18 00:00 Bi-pap 06/15/18 00:00 98.3 63 17 114/55 (74) 100 06/15/18 00:00 59 Intake and Output 06/14/18 06/15/18 19:00 07:00 Intake Total 710.0 ml 965.0 ml Output Total 340 ml 700 ml Balance 370.0 ml 265.0 ml IV Total 710.0 ml 715.0 ml Tube Feeding 250 ml Output Urine Total 340 ml 700 ml # Bowel Movements 1 2D Echo: EF55%,Mild LVH,Mod MR,Mild AR,RVSP 67 mmHg (severe PHT),Restrictive LV phy Objective HEENT: Normocephalic, atraumatic, Pupils equally reactive to light and accommodation, EOMI. NECK: No JVD, no carotid bruit. CARDIOVASCULAR: Regular rate and rhythm. No murmurs, gallops or rubs. LUNGS: Clear to auscultation bilaterally. No crackles or Rhonchi. ABDOMEN: Soft and nontender. No organomegaly, + BS. EXTREMITIES: No cyanosis, clubbing or edema. Miller Mckeon MD Jun 15, 2018 23:52
[2018-06-16] VITALS (24 sets, daily range): BP systolic 107–137; BP diastolic 48–68
--- NOTE | 2018-06-16 00:15 | NUR ---
NURSE NOTES: See V/S.Scope rhythym same.Repositioned Kept comfortable.Guy.NGT Feeding See I/O.No distress.
[2018-06-16] MEDS: Piperacillin/Tazobactam 3.375 GM in D5W 110 ML IVPB SCH ×4 (00:16→21:32)
[2018-06-16] MEDS: HydrALAZINE 25mg tab ORAL SCH ×4 (00:18→17:48)
--- NOTE | 2018-06-16 02:00 | NUR ---
NURSE NOTES: inct.of loose brown BM.Made clean and dry.Pos. chg.Denies discomfort.
--- NOTE | 2018-06-16 04:10 | NUR ---
NURSE NOTES: Inct.of loose br.stool.Chantelle craft.See V/S.Scope rhythm same. No CP.Guy.BIPAP settings.
[2018-06-16] MEDS: NovoLOG Insulin Flexpen SUBQ SCH ×4 (06:03→17:49)
--- NOTE | 2018-06-16 07:30 | NUR ---
HAND-OFF: Report given to JESSICA GAONA RN.
--- NOTE | 2018-06-16 07:35 | NUR ---
NURSE NOTES: Received the patient from WAYNE Gould. Patient asleep, easily arousable, able to follow commands. Pt on BIPAP 15/5, FIO2 40%, O2 sat 99%. No acute distress noted. SR noted on the monitor. Dobhuff intact, running Glucerna 1.5 at 45ml/hr. HOB elevated. Pt on purewick. Pt noted with Left upper arm PICC line, TKO. On Bilateral soft wrist restraints, skin intact and pulses present, observed removing devices. Bed in lowest position, locked, side rails upx3. Bed alarm on. Call light within reach. Will continue to monitor.
[2018-06-16] MEDS: Aspirin Baby 81mg ORAL SCH (09:05)
[2018-06-16] MEDS: Metoprolol Tartrate 50mg tab ORAL SCH ×2 (09:05→21:31)
[2018-06-16] MEDS: Miconazole 2% Cream 30gm TOPIC SCH ×2 (09:06→17:47)
[2018-06-16] MEDS: Enoxaparin 80mg Inj SUBQ SCH (09:07)
--- NOTE | 2018-06-16 09:23 | General Progress Note ---
Assessment/Plan Assessment/Plan Impression Diabetic ketoacidosis Anemia Transaminitis of unclear etiology Severe protein calorie malnutrition Evidence of pancreatitis, better Acute renal failure, improved Hyperglycemia Diabetes Hyponatremia Metabolic acidosis Hypercholesterolemia fever oral ulcers afib with RVR leukopenia pancreatitis CVA pleural effusions pulmonary edema PLAN nutrition on antibiotics on lovenox on BIPAP proceed with trach lasix x 1 still very weak and will need snf monitor labs needs GT impression, plan, and exam edited and reviewed in detail care discussed with RN Subjective Allergies: Coded Allergies: SHELLFISH DERIVED (Verified Allergy, Unknown, swelling and itchiness, 05/14) Subjective care noted NJT in place NAD more alert on BIPAP d/w sister, agreed to trach Objective Last 24 Hour Vital Signs Date Time Temp Pulse Resp B/P (MAP) Pulse Ox O2 Delivery O2 Flow Rate FiO2 06/16/18 09:05 76 107/48 06/16/18 09:05 78 107/48 06/16/18 08:00 Bi-pap 06/16/18 08:00 98.5 82 24 110/63 (79) 100 06/16/18 08:00 40 06/16/18 07:10 77 22 100 Full Face 40 06/16/18 07:10 Bi-pap 40 06/16/18 07:10 100 Bi-pap 40 06/16/18 07:00 80 21 121/64 (83) 97 06/16/18 06:00 70 23 128/60 (82) 99 06/16/18 05:50 126/57 06/16/18 05:00 77 22 126/57 (80) 99 06/16/18 04:54 77 21 99 Full Face 40 06/16/18 04:00 76 06/16/18 04:00 40 06/16/18 04:00 98.1 76 25 130/65 (86) 100 06/16/18 03:19 83 26 99 Full Face 40 06/16/18 03:00 75 20 116/56 (76) 99 06/16/18 02:00 74 22 126/59 (81) 99 06/16/18 01:24 63 21 99 Full Face 40 06/16/18 01:00 65 20 124/57 (79) 99 06/16/18 00:18 125/65 06/16/18 00:00 Bi-pap 06/16/18 00:00 40 06/16/18 00:00 98.4 66 21 125/65 (85) 99 06/16/18 00:00 66 06/15/18 23:21 66 28 98 Full Face 40 06/15/18 23:00 74 23 135/67 (89) 98 06/15/18 22:00 64 23 130/61 (84) 98 06/15/18 21:00 67 27 128/60 (82) 98 06/15/18 20:56 65 24 99 Full Face 40 06/15/18 20:42 65 119/59 06/15/18 20:00 98.3 74 25 119/59 (79) 99 06/15/18 20:00 74 06/15/18 20:00 40 06/15/18 20:00 Bi-pap 06/15/18 19:33 99 Bi-pap 40 06/15/18 19:33 74 27 99 Full Face 40 06/15/18 19:00 72 20 120/52 (74) 100 06/15/18 18:05 70 26 126/64 (84) 100 06/15/18 18:00 73 114/58 06/15/18 17:56 114/58 06/15/18 17:56 73 114/58 06/15/18 17:01 65 18 113/57 (75) 99 06/15/18 16:52 68 26 99 Full Face 40 06/15/18 16:00 98.0 67 20 112/57 (75) 98 06/15/18 16:00 45 06/15/18 16:00 66 06/15/18 15:03 67 20 99 Full Face 40 06/15/18 15:00 65 20 111/62 (78) 98 06/15/18 14:00 67 20 118/55 (76) 98 06/15/18 13:37 82 131/59 06/15/18 13:13 131/59 06/15/18 13:00 83 21 131/59 (83) 96 06/15/18 12:41 77 20 100 Full Face 40 06/15/18 12:01 80 06/15/18 12:00 98.3 74 18 127/71 (89) 100 06/15/18 12:00 45 06/15/18 11:04 88 19 99 Facial 40 06/15/18 11:00 69 20 137/71 (93) 100 06/15/18 10:00 86 18 125/58 (80) 100 Intake and Output 06/15/18 06/16/18 19:00 07:00 Intake Total 777.5 ml 700.0 ml Output Total 151 ml 421 ml Balance 626.5 ml 279.0 ml Free Water 150 ml 50 ml IV Total 27.5 ml 110.0 ml Tube Feeding 540 ml 540 ml Other 60 ml Output Urine Total 150 ml 420 ml Stool Total 1 ml 1 ml # Bowel Movements 1 1 Labs Test 06/14/18 05:00 06/14/18 09:50 White Blood Count 10.2 K/UL (4.8-10.8) Red Blood Count 2.92 M/UL (4.20-5.40) Hemoglobin 8.3 G/DL (12.0-16.0) Hematocrit 27.3 % (37.0-47.0) Mean Corpuscular Volume 94 FL (80-99) Mean Corpuscular Hemoglobin 28.5 PG (27.0-31.0) Mean Corpuscular Hemoglobin Concent 30.4 G/DL (32.0-36.0) Red Cell Distribution Width 21.7 % (11.6-14.8) Platelet Count 262 K/UL (150-450) Mean Platelet Volume 6.3 FL (6.5-10.1) Neutrophils (%) (Auto) 79.3 % (45.0-75.0) Lymphocytes (%) (Auto) 8.8 % (20.0-45.0) Monocytes (%) (Auto) 6.9 % (1.0-10.0) Eosinophils (%) (Auto) 4.1 % (0.0-3.0) Basophils (%) (Auto) 1.0 % (0.0-2.0) Sodium Level 149 MMOL/L (136-145) Potassium Level 3.4 MMOL/L (3.5-5.1) Chloride Level 113 MMOL/L (98-107) Carbon Dioxide Level 25 MMOL/L (21-32) Anion Gap 11 mmol/L (5-15) Blood Urea Nitrogen 24 mg/dL (7-18) Creatinine 1.8 MG/DL (0.55-1.30) Estimat Glomerular Filtration Rate 27.8 mL/min (>60) Glucose Level 136 MG/DL (74-106) Calcium Level 8.1 MG/DL (8.5-10.1) Arterial Blood pH 7.468 (7.350-7.450) Arterial Blood Partial Pressure CO2 34.3 mmHg (35.0-45.0) Arterial Blood Partial Pressure O2 69.8 mmHg (75.0-100.0) Arterial Blood HCO3 24.3 mmol/L (22.0-26.0) Arterial Blood Oxygen Saturation 93.0 % (95-100) Arterial Blood Base Excess 0.8 (-2-2) Marlon Test Positive Height (Feet): 4 Height (Inches): 10.00 Weight (Pounds): 168 Objective WDWN seems more alert on BIPAP reduced breath sounds bilaterally without rhonchi or wheeze S1S2 RRR without MRG NABS nontender no HSM; NJT in place no CCE weak Jesus Lew MD Jun 16, 2018 09:23
--- NOTE | 2018-06-16 09:32 | NUR ---
RADIOLOGY DEPT CHEST X-RAY DONE.-P.DYE
--- NOTE | 2018-06-16 09:56 | Infectious Diseases Prog Note ---
"Assessment/Plan Assessment/Plan antibiotics : zosyn A 1. klebsiella | streptococcus pneumonia 2. herpes of lip s/p rx 3. diabetic ketoacidosis resolved 4. respiratory failure 5. hypertension 6. leucocytosis improving 7. renal failure P 1. continue zosyn 2. will follow up cultures Subjective Constitutional: Denies: fever, chills Respiratory: Denies: shortness of breath, dry cough Gastrointestinal/Abdominal: Denies: nausea, vomiting, diarrhea Musculoskeletal: Denies: pain Allergies: Coded Allergies: SHELLFISH DERIVED (Verified Allergy, Unknown, swelling and itchiness, 05/14) Objective Vital Signs Last 24 Hour Vital Signs Date Time Temp Pulse Resp B/P (MAP) Pulse Ox O2 Delivery O2 Flow Rate FiO2 06/16/18 09:05 76 107/48 06/16/18 09:05 78 107/48 06/16/18 09:00 84 23 107/48 (67) 99 06/16/18 08:00 79 06/16/18 08:00 Bi-pap 06/16/18 08:00 98.5 82 24 110/63 (79) 100 06/16/18 08:00 40 06/16/18 07:10 77 22 100 Full Face 40 06/16/18 07:10 Bi-pap 40 06/16/18 07:10 100 Bi-pap 40 06/16/18 07:00 80 21 121/64 (83) 97 06/16/18 06:00 70 23 128/60 (82) 99 06/16/18 05:50 126/57 06/16/18 05:00 77 22 126/57 (80) 99 06/16/18 04:54 77 21 99 Full Face 40 06/16/18 04:00 76 06/16/18 04:00 40 06/16/18 04:00 98.1 76 25 130/65 (86) 100 06/16/18 03:19 83 26 99 Full Face 40 06/16/18 03:00 75 20 116/56 (76) 99 06/16/18 02:00 74 22 126/59 (81) 99 06/16/18 01:24 63 21 99 Full Face 40 06/16/18 01:00 65 20 124/57 (79) 99 06/16/18 00:18 125/65 06/16/18 00:00 Bi-pap 06/16/18 00:00 40 06/16/18 00:00 98.4 66 21 125/65 (85) 99 06/16/18 00:00 66 06/15/18 23:21 66 28 98 Full Face 40 06/15/18 23:00 74 23 135/67 (89) 98 06/15/18 22:00 64 23 130/61 (84) 98 06/15/18 21:00 67 27 128/60 (82) 98 06/15/18 20:56 65 24 99 Full Face 40 06/15/18 20:42 65 119/59 06/15/18 20:00 98.3 74 25 119/59 (79) 99 06/15/18 20:00 74 06/15/18 20:00 40 06/15/18 20:00 Bi-pap 06/15/18 19:33 99 Bi-pap 40 06/15/18 19:33 74 27 99 Full Face 40 06/15/18 19:00 72 20 120/52 (74) 100 06/15/18 18:05 70 26 126/64 (84) 100 06/15/18 18:00 73 114/58 06/15/18 17:56 114/58 06/15/18 17:56 73 114/58 06/15/18 17:01 65 18 113/57 (75) 99 06/15/18 16:52 68 26 99 Full Face 40 06/15/18 16:00 98.0 67 20 112/57 (75) 98 06/15/18 16:00 45 06/15/18 16:00 66 06/15/18 15:03 67 20 99 Full Face 40 06/15/18 15:00 65 20 111/62 (78) 98 06/15/18 14:00 67 20 118/55 (76) 98 06/15/18 13:37 82 131/59 06/15/18 13:13 131/59 06/15/18 13:00 83 21 131/59 (83) 96 06/15/18 12:41 77 20 100 Full Face 40 06/15/18 12:01 80 06/15/18 12:00 98.3 74 18 127/71 (89) 100 06/15/18 12:00 45 06/15/18 11:04 88 19 99 Facial 40 06/15/18 11:00 69 20 137/71 (93) 100 06/15/18 10:00 86 18 125/58 (80) 100 Height (Feet): 4 Height (Inches): 10.00 Weight (Pounds): 168 HEENT: other - on bipap Respiratory/Chest: lungs clear Cardiovascular: normal rate, regular rhythm, no gallop/murmur Abdomen: soft, non tender Extremities: other - + edema, left arm PICC Current Medications Medications (Trade) Dose Ordered Sig/Ellen Route PRN Reason Start Time Stop Time Status Last Admin Dose Admin Acetaminophen (Tylenol) 650 mg Q4H PRN ORAL Mild Pain/Temp > 100.5 06/08/18 15:00 07/02/18 14:59 Al Hydroxide/Mg Hydroxide (Mylanta) 30 ml Q6H PRN ORAL Abdominal cramps 06/08/18 15:00 07/02/18 14:59 Amlodipine Besylate (Norvasc) 5 mg BID ORAL 06/08/18 18:00 06/28/18 08:59 06/16/18 09:05 Aspirin (ASA) 81 mg DAILY ORAL 06/09/18 09:00 06/24/18 08:59 06/16/18 09:05 Chlorhexidine Gluconate (Leora-Hex 2%) 1 applic DAILY@2000 TOPIC 06/08/18 20:00 06/24/18 19:59 06/15/18 20:08 Enoxaparin Sodium (Lovenox) 80 mg Q24H SUBQ 06/09/18 09:00 07/03/18 08:59 06/16/18 09:07 Furosemide (Lasix) 20 mg ONCE IV 06/16/18 09:30 06/16/18 10:30 Haloperidol Lactate (Haldol) 5 mg Q6H PRN IM Agitation 06/08/18 15:00 07/02/18 14:59 Hydralazine HCl (Apresoline) 25 mg Q6HR ORAL 06/08/18 18:00 07/02/18 00:00 06/16/18 05:50 Insulin Aspart (NovoLOG) BEFORE MEALS AND HS SUBQ 06/08/18 16:30 07/08/18 16:29 06/16/18 06:03 Lansoprazole (Prevacid) 30 mg DAILY GT 06/11/18 09:00 07/11/18 08:59 06/16/18 09:05 Magnesium Hydroxide (Mom) 30 ml DAILYPRN PRN ORAL Constipation 06/08/18 15:00 07/02/18 14:59 Metoprolol Tartrate (Lopressor) 5 mg Q2H PRN IVP For High Blood Pressure 06/08/18 15:00 06/23/18 16:59 Metoprolol Tartrate (Lopressor) 50 mg Q12HR ORAL 06/08/18 21:00 06/26/18 20:59 06/16/18 09:05 Miconazole Nitrate (Miconazole Nitrate) 1 applic BID TOPIC 06/09/18 18:30 07/09/18 18:29 06/16/18 09:06 Olanzapine (ZyPREXA) 2.5 mg BEDTIME ORAL 06/08/18 21:00 07/01/18 20:59 06/15/18 20:42 Piperacillin Sod/ Tazobactam Sod 3.375 gm/Dextrose 110 ml @ 27.5 mls/hr Q8HR IVPB 06/09/18 14:00 06/20/18 13:59 06/16/18 05:50 Khadra Melendez MD Jun 16, 2018 09:56"
--- NOTE | 2018-06-16 10:14 | NUR ---
RESPIRATORY NOTE: Received pt. on BIPAP. BIPAP settings are: 15/5, rate of 18, FI02 40%. No respiratory distress noted, Pt. Sp02 @ 98%. BIPAP plugged on red outlet. Will continue to monitor pt.
--- NOTE | 2018-06-16 11:07 | NUR ---
*- INSURANCE *-* UPDATED AND REVIEWS HAVE BEEN FAXED TO: [facility] ROSA: RUDY P:[phone] F:[phone]
--- NOTE | 2018-06-16 11:14 | Diagnostic Imaging Report ---
Indication: Dyspnea Comparison: 06/14/2018 A single view chest radiograph was obtained. Findings: Interstitial edema demonstrated with cardiomegaly. This appears marginally worse compared to the previous exam. There is a weighted feeding tube present the tip of which is not visualized. Sternotomy again noted. PICC line is stable. IMPRESSION: Moderate pulmonary edema
--- NOTE | 2018-06-16 11:14 | NUR ---
Social Service Note Follow up with patient's dgt and Dr. Lew. Family has agreed to trach. aware and will assess patient.
--- NOTE | 2018-06-16 12:11 | NUR ---
NURSE NOTES: patient's daughter at bedside. consent for trach placement obtained.
--- NOTE | 2018-06-16 13:54 | Anethesia Preoperative Eval ---
Anesthesia Pre-op PMH/ROS General Date of Evaluation: Jun 16, 2018 Anesthesiologist: Donn ASA Score: ASA 4 Mallampati Score Class I : Soft palate, uvula, fauces, pillars visible Class II: Soft palate, uvula, fauces visible Class III: Soft palate, base of uvula visible Class IV: Only hard plate visible Mallampati Classification: Class III Surgeon: Anila Diagnosis: Respiratory failure Surgical Procedure: Tracheoestomy Anesthesia History: none Allergies: Coded Allergies: SHELLFISH DERIVED (Verified Allergy, Unknown, swelling and itchiness, 05/14) Patient NPO?: Yes NPO Date: May 23, 2018 NPO Time: 22:00 Past Medical History Cardiovascular: Reports: HTN, CAD, arrhythmia - paroxysmal afib, other - HLD; Denies: GA, valve dz Pulmonary: Reports: COPD, other - severe pulmonary htn; Denies: asthma, BERHANE Gastrointestinal/Genitourinary: Reports: GERD, CRI; Denies: ESRD, other Neurologic/Psychiatric: Denies: dementia, CVA, depression/anxiety, TIA, other Endocrine: Reports: DM; Denies: hypothyroidism, steroids, other HEENT: Denies: cataract (L), cataract (R), glaucoma, [place]AND (L), [place]AND (R), other Hematology/Immune: Reports: anemia; Denies: DVT, bleeding disorder, other Musculoskeletal/Integumentary: Reports: other - gout; Denies: OA, RA, DJD, DDD, edema PSxH Narrative: CABG Anesthesia Pre-op Phys. Exam Physician Exam Last Vital Signs Date Time Temp Pulse Resp B/P (MAP) Pulse Ox O2 Delivery O2 Flow Rate FiO2 06/16/18 13:00 75 22 113/65 (81) 99 06/16/18 12:00 98.3 06/16/18 12:00 40 06/16/18 12:00 Bi-pap 06/08/18 19:52 4.0 Constitutional: NAD Cardiovascular: RRR Respiratory: CTA Airway Exam Mallampati Score: Class III MO: limited ROM: limited Anesthesia Pre-op A/P Labs see chart Studies Pre-op Studies: EKG - afib Risk Assessment & Plan Assessment: ASA IV Plan: GA Status Change Before Surgery: No Pre-Antibiotics Drug: Brittany Alva MD Jun 16, 2018 13:54
--- NOTE | 2018-06-16 14:35 | NUR ---
NURSE NOTES: Patient resting in bed comfortably. Had brown soft BMx1. Patient kept clean and dry. No distress noted.
--- NOTE | 2018-06-16 15:26 | Consultation ---
History of Present Illness General Date patient seen: Jun 16, 2018 Chief Complaint: Abdominal Pain Reason for Consultation: trach Present Illness HPI 72 year old female with multiple medical comorbidities currently admitted for medical care and management. Intubated and has been on vent support for some time now. unable to wean from vent. surgery called to evaluate and assist with care and management. patient seen, chart reviewed, patient examined. Allergies: Coded Allergies: SHELLFISH DERIVED (Verified Allergy, Unknown, swelling and itchiness, 05/14) Medication History Scheduled Aspirin* (Aspir 81*), 81 MG ORAL DAILY, (Reported) Atorvastatin Calcium* (Lipitor*), 80 MG ORAL BEDTIME, (Reported) Carvedilol* (Carvedilol*), 6.25 MG ORAL EVERY 12 HOURS, (Reported) Furosemide* (Lasix*), 20 MG ORAL DAILY, (Reported) Insulin Glargine (Lantus), 20 SUBQ BEDTIME, (Reported) Lisinopril* (Lisinopril*), 20 MG ORAL DAILY, (Reported) Multivitamin/Iron/Folic Acid (Centrum Adults Tablet), 1 EACH PO DAILY, (Reported ) Miscellaneous Medications Linagliptin/Metformin Hcl (Jentadueto 2.5 Mg-1000 Mg Tab), 1 EACH PO, (Reported) Patient History Limited by: medical condition History Provided By: Medical Record, PMD Healthcare decision maker self Resuscitation status Full Code Advanced Directive on File No Past Medical/Surgical History Past Medical/Surgical History: (1) Hyperglycemia (2) Hyperkalemia (3) Elevated brain natriuretic peptide (BNP) level (4) Gout (5) DKA (diabetic ketoacidosis) (6) Pancreatitis (7) Renal failure (8) Sepsis (9) UTI (urinary tract infection) (10) Diabetes (11) Shortness of breath (12) Pneumonia (13) HTN (hypertension) (14) Acute metabolic encephalopathy (15) Anemia Review of Systems ROS Narrative cannot obtain from patient Physical Exam General Appearance: mild distress Lines, tubes and drains: other HEENT: other Neck: normal inspection Respiratory/Chest: on vent Cardiovascular/Chest: tachycardia Abdomen: soft, no organomegaly, no mass Extremities: other Skin Exam: other Neurologic: other Last 24 Hour Vital Signs Date Time Temp Pulse Resp B/P (MAP) Pulse Ox O2 Delivery O2 Flow Rate FiO2 06/16/18 15:00 73 18 122/55 (77) 100 06/16/18 14:38 72 24 99 Full Face 40 06/16/18 14:00 72 24 122/55 (77) 99 06/16/18 13:28 74 24 99 Full Face 40 06/16/18 13:00 75 22 113/65 (81) 99 06/16/18 12:00 98.3 79 21 120/60 (80) 96 06/16/18 12:00 40 06/16/18 12:00 69 06/16/18 12:00 Bi-pap 06/16/18 11:34 137/58 06/16/18 11:00 68 28 100 Full Face 40 06/16/18 11:00 67 21 137/58 (84) 98 06/16/18 10:00 67 24 115/55 (75) 98 06/16/18 09:30 68 28 98 Full Face 40 06/16/18 09:05 76 107/48 06/16/18 09:05 78 107/48 06/16/18 09:00 84 23 107/48 (67) 99 06/16/18 08:00 79 06/16/18 08:00 Bi-pap 06/16/18 08:00 98.5 82 24 110/63 (79) 100 06/16/18 08:00 40 06/16/18 07:10 77 22 100 Full Face 40 06/16/18 07:10 Bi-pap 40 06/16/18 07:10 100 Bi-pap 40 06/16/18 07:00 80 21 121/64 (83) 97 06/16/18 06:00 70 23 128/60 (82) 99 06/16/18 05:50 126/57 06/16/18 05:00 77 22 126/57 (80) 99 06/16/18 04:54 77 21 99 Full Face 40 06/16/18 04:00 76 06/16/18 04:00 40 06/16/18 04:00 98.1 76 25 130/65 (86) 100 06/16/18 03:19 83 26 99 Full Face 40 06/16/18 03:00 75 20 116/56 (76) 99 06/16/18 02:00 74 22 126/59 (81) 99 06/16/18 01:24 63 21 99 Full Face 40 06/16/18 01:00 65 20 124/57 (79) 99 06/16/18 00:18 125/65 06/16/18 00:00 Bi-pap 06/16/18 00:00 40 06/16/18 00:00 98.4 66 21 125/65 (85) 99 06/16/18 00:00 66 06/15/18 23:21 66 28 98 Full Face 40 06/15/18 23:00 74 23 135/67 (89) 98 06/15/18 22:00 64 23 130/61 (84) 98 06/15/18 21:00 67 27 128/60 (82) 98 06/15/18 20:56 65 24 99 Full Face 40 06/15/18 20:42 65 119/59 06/15/18 20:00 98.3 74 25 119/59 (79) 99 06/15/18 20:00 74 06/15/18 20:00 40 06/15/18 20:00 Bi-pap 06/15/18 19:33 99 Bi-pap 40 06/15/18 19:33 74 27 99 Full Face 40 06/15/18 19:00 72 20 120/52 (74) 100 06/15/18 18:05 70 26 126/64 (84) 100 06/15/18 18:00 73 114/58 06/15/18 17:56 114/58 06/15/18 17:56 73 114/58 06/15/18 17:01 65 18 113/57 (75) 99 06/15/18 16:52 68 26 99 Full Face 40 06/15/18 16:00 98.0 67 20 112/57 (75) 98 06/15/18 16:00 45 06/15/18 16:00 66 Intake and Output 06/15/18 06/16/18 19:00 07:00 Intake Total 777.5 ml 700.0 ml Output Total 151 ml 421 ml Balance 626.5 ml 279.0 ml Free Water 150 ml 50 ml IV Total 27.5 ml 110.0 ml Tube Feeding 540 ml 540 ml Other 60 ml Output Urine Total 150 ml 420 ml Stool Total 1 ml 1 ml # Bowel Movements 1 1 Height (Feet): 4 Height (Inches): 10.00 Weight (Pounds): 168 Medications Current Medications Medications (Trade) Dose Ordered Sig/Ellen Route PRN Reason Start Time Stop Time Status Last Admin Dose Admin Acetaminophen (Tylenol) 650 mg Q4H PRN ORAL Mild Pain/Temp > 100.5 06/08/18 15:00 07/02/18 14:59 Al Hydroxide/Mg Hydroxide (Mylanta) 30 ml Q6H PRN ORAL Abdominal cramps 06/08/18 15:00 07/02/18 14:59 Amlodipine Besylate (Norvasc) 5 mg BID ORAL 06/08/18 18:00 06/28/18 08:59 06/16/18 09:05 Aspirin (ASA) 81 mg DAILY ORAL 06/09/18 09:00 06/24/18 08:59 06/16/18 09:05 Chlorhexidine Gluconate (Leora-Hex 2%) 1 applic DAILY@2000 TOPIC 06/08/18 20:00 06/24/18 19:59 06/15/18 20:08 Enoxaparin Sodium (Lovenox) 80 mg Q24H SUBQ 06/09/18 09:00 07/03/18 08:59 06/16/18 09:07 Haloperidol Lactate (Haldol) 5 mg Q6H PRN IM Agitation 06/08/18 15:00 07/02/18 14:59 Hydralazine HCl (Apresoline) 25 mg Q6HR ORAL 06/08/18 18:00 07/02/18 00:00 06/16/18 11:34 Insulin Aspart (NovoLOG) BEFORE MEALS AND HS SUBQ 06/08/18 16:30 07/08/18 16:29 06/16/18 11:35 Lansoprazole (Prevacid) 30 mg DAILY GT 06/11/18 09:00 07/11/18 08:59 06/16/18 09:05 Magnesium Hydroxide (Mom) 30 ml DAILYPRN PRN ORAL Constipation 06/08/18 15:00 07/02/18 14:59 Metoprolol Tartrate (Lopressor) 5 mg Q2H PRN IVP For High Blood Pressure 06/08/18 15:00 06/23/18 16:59 Metoprolol Tartrate (Lopressor) 50 mg Q12HR ORAL 06/08/18 21:00 06/26/18 20:59 06/16/18 09:05 Miconazole Nitrate (Miconazole Nitrate) 1 applic BID TOPIC 06/09/18 18:30 07/09/18 18:29 06/16/18 09:06 Olanzapine (ZyPREXA) 2.5 mg BEDTIME ORAL 06/08/18 21:00 07/01/18 20:59 06/15/18 20:42 Piperacillin Sod/ Tazobactam Sod 3.375 gm/Dextrose 110 ml @ 27.5 mls/hr Q8HR IVPB 06/09/18 14:00 06/20/18 13:59 06/16/18 15:06 Assessment/Plan Problem List: (1) Respiratory insufficiency Assessment & Plan: respiratory insufficiency requiring prolonged ventilatory support unable to wean from vent trach indicated and recommended plan for tomorrow consent. thank you ICD Codes: R06.89 - Other abnormalities of breathing SNOMED: 486702695 (2) Sepsis ICD Codes: A41.9 - Sepsis, unspecified organism SNOMED: 40277375 Qualifiers: Qualified Codes: A41.9 - Sepsis, unspecified organism Walter High Jun 16, 2018 15:26
--- NOTE | 2018-06-16 15:26 | Pre-Procedure Note/Attestation ---
Pre-Procedure Note/Attestation Complete Prior to Procedure Procedure Narrative: tracheostomy Indications for Procedure Pre-Operative Diagnosis: respiratory insufficiency Attestation I attest that I discussed the nature of the procedure; its benefits; risks and complications; and alternatives (and the risks and benefits of such alternatives ), prior to the procedure, with the patient (or the patient's legal sales representative sales manager). I attest that, if there was a reasonable possibility of needing a blood transfusion, the patient (or the patient's legal sales representative sales manager) was given the [facility] standardized written summary, pursuant to the Alfred Nela Blood Safety Act ([place] Health and Safety Code # 1645, as amended). I attest that I re-evaluated the patient just prior to the surgery and that there has been no change in the patient's H&P, except as documented below: Walter High Jun 16, 2018 15:26
--- NOTE | 2018-06-16 15:57 | NUR ---
NURSE NOTES: Patient awake, alert. Patient was turned and repositioned. pt kept clean and dry. pt's daughter at bedside. Addendum: 06/16/18 at 1558 by RICKI FINNEY RN Oral care provided.
[2018-06-16] MEDS ORDERED: NS 275ml ONE (16:44)
--- NOTE | 2018-06-16 18:00 | NUR ---
NURSE NOTES: Patient resting in bed comfortably. No distress noted. tube feeding at 45ml/hr, pt tolerating well.
--- NOTE | 2018-06-16 18:11 | NUR ---
CASE MANAGEMENT: REVIEW SI: PANCREATITIS . ANEMIA . CHOLELITHIASIS . RESPIRATORY FAILURE TRACHEOSTOMY 06/16 EGD AND EUS 05/24 T 99.0 HR 75 RR 18 BP 112/55 SAT 99% BIPAP FIO2 40 H/H 8.3/27.3 NA 149 K 3.4 IS: ZOSYN IV Q8HR ASA PO QD LOVENOX SQ Q24HR LOPRESSOR PO Q12HR INSULIN SQ AC/HS ICU STATUS DCP: PATIENT IS FROM HOME
--- NOTE | 2018-06-16 18:52 | NUR ---
RESPIRATORY NOTE: Received pt on BiPAP 15/5, backup rate 18, 40%. Pt is on a Full Face mask, skin intact, no redness/breakdowns noted. Foam tape applied to pt's forehead/cheeks/chin to prevent any mask irritations. Pt is alert/awake, follows commands. B/S darin. diminished, nonproductive cough. BiPAP plugged into red outlet. Pt denies SOB/chest pain at this time. Will continue plan of care.
--- NOTE | 2018-06-16 18:58 | General Progress Note ---
Assessment/Plan Assessment/Plan Assessment and Recs # Pancytopenia -- appears that initial hep and hiv are negative though final results to follow, liver shows no major hsm or cirrhosis, may consider meds or bone marrow process, smear reviewed, does have low albumin, has been hospitalized for some time, in and out since 04/30/18. Hiv and hepatitis panels are both negative --> query meds, review with ID, is on micafungin now, monitor counts closely --> given hgb downtrending and some nucleated reds on smear, will send off a flow cytometry --> nepogen 300mcg sq to maintain anc >1500 --> wbc trend : 1.7-->4.3-->3.1-->3.4-->7.7-->8.1--12-->15-->11-->14.6 # Anemia of chronic disease - monitor anemia panel --> hemolysis does not appear to be the case --> anemia panel reviewed and c/w acd --> hgb trend: 8.3-->9.2-->8.9-->8.7-->9-->7.7-->7--->8 # Paroxysmal atrial fibrillation, due to CHADS-VASC score of 5, we require to keep anticoagulated, on metoprolol --> continue on apixaban # Hx of CAD, s/p CABG, ASA , atorvastatin and metoprolol. No wall motion abnormalities on Echo. LVEF ~55%. --> appreciate cards recs # Sinus tachycardia due to hypovolemia, resolved. # DKA, resolved. --> continue monitor # DM, non-compliant with medications. # Hx of HTN, controlled with metoprolol. # pancreatitis -- appreciate gi recs # increased LFT The timing of this note does not necessarily reflect the time of the patient was seen. Greatly appreciate consultation! Subjective ROS Limited/Unobtainable: Yes Constitutional: Denies: no symptoms, chills, diaphoresis, fever, malaise, weakness, other HEENT: Denies: no symptoms, eye pain, blurred vision, tearing, double vision, ear pain, ear discharge, nose pain, nose congestion, throat pain, throat swelling, mouth pain, mouth swelling, other Cardiovascular: Denies: no symptoms, chest pain, edema, irregular heart rate, lightheadedness, palpitations, syncope, other Respiratory: Denies: no symptoms, cough, orthopnea, shortness of breath, SOB with excertion, SOB at rest, sputum, stridor, wheezing, other Gastrointestinal/Abdominal: Denies: no symptoms, abdomen distended, abdominal pain, black stools, tarry stools, blood in stool, constipated, diarrhea, difficulty swallowing, nausea, poor appetite, poor fluid intake, rectal bleeding , vomiting, other Genitourinary: Denies: no symptoms, burning, discharge, frequency, flank pain, hematuria, incontinence, pain, urgency, other Neurologic/Psychiatric: Denies: no symptoms, anxiety, depressed, emotional problems, headache, numbness, paresthesia, pre-existing deficit, seizure, tingling, tremors, weakness, other Endocrine: Denies: no symptoms, excessive sweating, flushing, intolerance to cold, intolerance to heat, increased hunger, increased thirst, increased urine, unexplained weight gain, unexplained weight loss, other Hematologic/Lymphatic: Denies: no symptoms, anemia, easy bleeding, easy bruising, other Allergies: Coded Allergies: SHELLFISH DERIVED (Verified Allergy, Unknown, swelling and itchiness, 05/14) Subjective 05/18: Pt is awake and comfortable, no events, leukopenia improved, wbc 4.3, plt 151 05/19: seen by bedside, awake, comfortable, plt 122 05/20: Pt is awake and comfortable, no events 05/21: Pt is seen in the room, resting in bed, no fevers or chills, wbc 8.7, plt 117 05/23: Pt is resting in bed, awake, comfortable, no fevers or chills, no acute distress. 05/24: EGD and EUS done today, has no gallbladder stones, only pancreatitis, no events 05/25: no events, dermatitis has improved, off loading of heels, pancreatitis and dka better 05/26: Pt is awake, comfortable, no acute events overnight, hgb 8.6 05/27: seen by bedside, awake, comfortable, no events 05/28: resting in bed, awake, comfortable, no fevers or chills, no acute distress , No need for ERCP per GI, 05/31: Pt is awake and comfortable, no events 06/01: awake, comfortable, denies acute distress. 06/02: seen by bedside, awake, comfortable, no acute distress. wbc 15. 2: no acute events, denies any abdominal pain, wbc trending down at 11 today. 06/04: awake/drowsy in bed, breathing easily on nasal cannula, denies SOB and pain at this time. 06/06: anemia cotninues to worsen, may consider a bone marrow biopsy if patient approves 06/07: hgb 9.7, not eating well, remains lethargic 06/08: hgb is stable, respiratory status is worsened, and thus was transferred to the icu 06/09: seen by bedside,awake, comfortable, plan to insert NGT samanta 06/10: not eating well, remains lethargic 06/11: poor po intake but currently on BIPAP and not stable for PEG placement, NGTF on hold per pulm 06/13:Seen by bedside, less confused, on BIPAP, no events 06/14: seen by bedside, on BIPAP, NJT feeds, no events 06/15: On BIPAP, Less confused, NJT feeds started, no events 06/16: awake, comfortable, NJT in place, more alert, on BIPAP, agreed to trach Objective Last 24 Hour Vital Signs Date Time Temp Pulse Resp B/P (MAP) Pulse Ox O2 Delivery O2 Flow Rate FiO2 06/16/18 18:51 100 Bi-pap 40 06/16/18 18:51 Bi-pap 40 06/16/18 18:50 77 24 100 Full Face 40 06/16/18 18:00 81 21 119/68 (85) 99 06/16/18 17:48 124/62 06/16/18 17:48 74 124/62 06/16/18 17:30 71 20 100 Full Face 40 06/16/18 17:00 74 18 122/55 (77) 100 06/16/18 17:00 76 22 124/62 (82) 98 06/16/18 16:00 Bi-pap 06/16/18 16:00 40 06/16/18 16:00 99.0 75 22 128/65 (86) 100 06/16/18 16:00 82 06/16/18 15:00 73 18 122/55 (77) 100 06/16/18 14:38 72 24 99 Full Face 40 06/16/18 14:00 72 24 122/55 (77) 99 06/16/18 13:28 74 24 99 Full Face 40 06/16/18 13:00 75 22 113/65 (81) 99 06/16/18 12:00 98.3 79 21 120/60 (80) 96 06/16/18 12:00 40 06/16/18 12:00 69 06/16/18 12:00 Bi-pap 06/16/18 11:34 137/58 06/16/18 11:00 68 28 100 Full Face 40 06/16/18 11:00 67 21 137/58 (84) 98 06/16/18 10:00 67 24 115/55 (75) 98 06/16/18 09:30 68 28 98 Full Face 40 06/16/18 09:05 76 107/48 06/16/18 09:05 78 107/48 06/16/18 09:00 84 23 107/48 (67) 99 06/16/18 08:00 79 06/16/18 08:00 Bi-pap 06/16/18 08:00 98.5 82 24 110/63 (79) 100 06/16/18 08:00 40 06/16/18 07:10 77 22 100 Full Face 40 06/16/18 07:10 Bi-pap 40 06/16/18 07:10 100 Bi-pap 40 06/16/18 07:00 80 21 121/64 (83) 97 06/16/18 06:00 70 23 128/60 (82) 99 06/16/18 05:50 126/57 06/16/18 05:00 77 22 126/57 (80) 99 06/16/18 04:54 77 21 99 Full Face 40 06/16/18 04:00 76 06/16/18 04:00 40 06/16/18 04:00 98.1 76 25 130/65 (86) 100 06/16/18 03:19 83 26 99 Full Face 40 06/16/18 03:00 75 20 116/56 (76) 99 06/16/18 02:00 74 22 126/59 (81) 99 06/16/18 01:24 63 21 99 Full Face 40 06/16/18 01:00 65 20 124/57 (79) 99 06/16/18 00:18 125/65 06/16/18 00:00 Bi-pap 06/16/18 00:00 40 06/16/18 00:00 98.4 66 21 125/65 (85) 99 06/16/18 00:00 66 06/15/18 23:21 66 28 98 Full Face 40 06/15/18 23:00 74 23 135/67 (89) 98 06/15/18 22:00 64 23 130/61 (84) 98 06/15/18 21:00 67 27 128/60 (82) 98 06/15/18 20:56 65 24 99 Full Face 40 06/15/18 20:42 65 119/59 06/15/18 20:00 98.3 74 25 119/59 (79) 99 06/15/18 20:00 74 06/15/18 20:00 40 06/15/18 20:00 Bi-pap 06/15/18 19:33 99 Bi-pap 40 06/15/18 19:33 74 27 99 Full Face 40 06/15/18 19:00 72 20 120/52 (74) 100 Intake and Output 06/15/18 06/16/18 19:00 07:00 Intake Total 777.5 ml 700.0 ml Output Total 151 ml 421 ml Balance 626.5 ml 279.0 ml Free Water 150 ml 50 ml IV Total 27.5 ml 110.0 ml Tube Feeding 540 ml 540 ml Other 60 ml Output Urine Total 150 ml 420 ml Stool Total 1 ml 1 ml # Bowel Movements 1 1 Height (Feet): 4 Height (Inches): 10.00 Weight (Pounds): 168 Objective PHYSICAL EXAMINATION: GENERAL: Pleasant [place] woman, tired HEENT: Normocephalic and atraumatic. Sclerae anicteric. Oropharynx clear. NECK: Supple. CHEST: bilateral crackles and ++ nc CARDIOVASCULAR: Revealed regular rate. ABDOMEN: Soft. Good bowel sounds. There is no organomegaly or tenderness. Anterior chest and abdomen scars were as expected. EXTREMITIES: Revealed no edema. Armando Bowen MD Jun 16, 2018 18:58
--- NOTE | 2018-06-16 19:08 | NUR ---
HAND-OFF: Report given to WAYNE Gould.
--- NOTE | 2018-06-16 19:30 | NUR ---
NURSE NOTES: Recvd.on a BIPAP awake,Alert able to follows simple command on Bila.soft wrist restraints R/T periods of confusion and forgot Limitations Prev.self-injury.NGT Feeding in progress.Res-0.Pos. chg.Kept comfortable.See V/S.Scope SR Denies CP
[2018-06-16] MEDS: Dyna-Hex 2% Top Sol 2oz TOPIC SCH (19:56)
[2018-06-16] MEDS: OLANZapine 2.5mg tab ORAL SCH (21:31)
--- NOTE | 2018-06-16 22:00 | NUR ---
NURSE NOTES: HS Care rendered.Pos.chg.Backrub with lotion.Due Meds admin.Made aware of NPO after MN.Ellen.for Poss.TRACHE.in am.Consent Signed.
--- NOTE | 2018-06-16 22:33 | General Progress Note ---
Assessment/Plan Assessment/Plan Assessment - Respiratory failure - Acute pancreatitis - Anemia - Leukocytosis - dysphagia - Azotemia - Urolithiasis - UTI - Cholelithiasis - DM - CAD/CABG - Gout Recommendations - pulmonary f/u - BIPAP - NJT feeds - follow labs and exam - Trach planned for am - will aim for PEG Thursday Subjective Allergies: Coded Allergies: SHELLFISH DERIVED (Verified Allergy, Unknown, swelling and itchiness, 05/14) Subjective On BIPAP calm NJT feeds tolerated d/w famlly re PEG consent obtained Objective Last 24 Hour Vital Signs Date Time Temp Pulse Resp B/P (MAP) Pulse Ox O2 Delivery O2 Flow Rate FiO2 06/16/18 21:31 68 123/61 06/16/18 21:00 74 22 123/61 (81) 100 06/16/18 20:46 77 19 100 Full Face 40 06/16/18 20:00 98.7 74 20 117/56 (76) 100 06/16/18 20:00 Bi-pap 06/16/18 20:00 74 06/16/18 20:00 40 06/16/18 19:00 88 16 110/61 (77) 99 06/16/18 18:51 100 Bi-pap 40 06/16/18 18:51 Bi-pap 40 06/16/18 18:50 77 24 100 Full Face 40 06/16/18 18:00 81 21 119/68 (85) 99 06/16/18 17:48 124/62 06/16/18 17:48 74 124/62 06/16/18 17:30 71 20 100 Full Face 40 06/16/18 17:00 74 18 122/55 (77) 100 06/16/18 17:00 76 22 124/62 (82) 98 06/16/18 16:00 Bi-pap 06/16/18 16:00 40 06/16/18 16:00 99.0 75 22 128/65 (86) 100 06/16/18 16:00 82 06/16/18 15:00 73 18 122/55 (77) 100 06/16/18 14:38 72 24 99 Full Face 40 06/16/18 14:00 72 24 122/55 (77) 99 06/16/18 13:28 74 24 99 Full Face 40 06/16/18 13:00 75 22 113/65 (81) 99 2/27/19 12:00 98.3 79 21 120/60 (80) 96 06/16/18 12:00 40 06/16/18 12:00 69 06/16/18 12:00 Bi-pap 06/16/18 11:34 137/58 06/16/18 11:00 68 28 100 Full Face 40 06/16/18 11:00 67 21 137/58 (84) 98 06/16/18 10:00 67 24 115/55 (75) 98 06/16/18 09:30 68 28 98 Full Face 40 06/16/18 09:05 76 107/48 06/16/18 09:05 78 107/48 06/16/18 09:00 84 23 107/48 (67) 99 06/16/18 08:00 79 06/16/18 08:00 Bi-pap 06/16/18 08:00 98.5 82 24 110/63 (79) 100 06/16/18 08:00 40 06/16/18 07:10 77 22 100 Full Face 40 06/16/18 07:10 Bi-pap 40 06/16/18 07:10 100 Bi-pap 40 06/16/18 07:00 80 21 121/64 (83) 97 06/16/18 06:00 70 23 128/60 (82) 99 06/16/18 05:50 126/57 06/16/18 05:00 77 22 126/57 (80) 99 06/16/18 04:54 77 21 99 Full Face 40 06/16/18 04:00 76 06/16/18 04:00 40 06/16/18 04:00 98.1 76 25 130/65 (86) 100 06/16/18 03:19 83 26 99 Full Face 40 06/16/18 03:00 75 20 116/56 (76) 99 06/16/18 02:00 74 22 126/59 (81) 99 06/16/18 01:24 63 21 99 Full Face 40 06/16/18 01:00 65 20 124/57 (79) 99 06/16/18 00:18 125/65 06/16/18 00:00 Bi-pap 06/16/18 00:00 40 06/16/18 00:00 98.4 66 21 125/65 (85) 99 06/16/18 00:00 66 06/15/18 23:21 66 28 98 Full Face 40 06/15/18 23:00 74 23 135/67 (89) 98 Intake and Output 06/15/18 06/16/18 18:59 06:59 Intake Total 795.0 ml 760.0 ml Output Total 151 ml 421 ml Balance 644.0 ml 339.0 ml Free Water 150 ml 50 ml IV Total 105.0 ml 110.0 ml Tube Feeding 540 ml 540 ml Other 60 ml Output Urine Total 150 ml 420 ml Stool Total 1 ml 1 ml # Bowel Movements 1 1 Height (Feet): 4 Height (Inches): 10.00 Weight (Pounds): 168 Objective WDWN NCAT,(+) BIPAP Neck supple Coarse BS RRR abd soft, ND restrained, confused Mary Jewell MD Jun 16, 2018 22:33
[2018-06-17] VITALS (24 sets, daily range): BP systolic 111–141; BP diastolic 8–101
[2018-06-17] MEDS: NovoLOG Insulin Flexpen SUBQ SCH ×4 (00:01→18:00)
[2018-06-17] MEDS: HydrALAZINE 25mg tab ORAL SCH ×4 (00:03→18:25)
--- NOTE | 2018-06-17 00:10 | NUR ---
NURSE NOTES: Asleep,Resp.unlabored.P.Ox-99-100%.Pos. chg.NPO for Ellen.TRACHE in afternoon.[id number] cov.
--- NOTE | 2018-06-17 02:00 | NUR ---
Repositioned,suctioned.status same.cont.Plan of care.
--- NOTE | 2018-06-17 04:00 | NUR ---
NURSE NOTES: silvia Buckley.See V/S.Scope rhythm same.Kept NPO Ellen. for poss. TRACHE this am.
[2018-06-17 06:12] LABS: ANION GAP 10 mmol/L (5-15); BLOOD UREA NITROGEN 23 mg/dL (7-18); CALCIUM 8.5 MG/DL (8.5-10.1); CARBON DIOXIDE 26 MMOL/L (21-32); CHLORIDE 111 MMOL/L (98-107); CREATININE 1.7 MG/DL (0.55-1.30); POTASSIUM 3.7 MMOL/L (3.5-5.1); SODIUM 147 MMOL/L (136-145)
[2018-06-17] MEDS: Piperacillin/Tazobactam 3.375 GM in D5W 110 ML IVPB SCH ×3 (06:37→22:00)
--- NOTE | 2018-06-17 06:38 | NUR ---
RESPIRATORY NOTE: Received pt on BiPAP 15/5, backup rate 18, 40%, saturates at 98%, pt is tolerating well. Took off the mask to check toleration and skin integrity. Pt is on a Full Face mask, desaturation quick when off mask, skin intact, no redness/breakdowns noted. Foam tape applied to pt's forehead/cheeks/chin to prevent any mask irritations. Pt is alert/awake, follows commands. B/S darin. diminished, nonproductive cough. BiPAP plugged into red outlet, alarms are set and audible, ambu bag is at bedside. No SOB or resp distress noted. Will continue plan of care.
--- NOTE | 2018-06-17 07:24 | NUR ---
HAND-OFF: Report given to JESSICA GAONA RN.
[2018-06-17] MEDS: Aspirin Baby 81mg ORAL SCH (07:39)
[2018-06-17] MEDS: Enoxaparin 80mg Inj SUBQ SCH (07:40)
--- NOTE | 2018-06-17 07:40 | NUR ---
NURSE NOTES: Received the patient from WAYNE Gould. Patient awake, alert and oriented. Pt on BIPAP 15/5, FIO2 40%, O2 sat 99%. No acute distress noted. SR noted on the monitor. Dobhuff intact, kept NPO after midnight for trach today. Pt on purewick. Pt noted with Left upper arm PICC line, TKO. On Bilateral soft wrist restraints, skin intact and pulses present, observed removing devices. Bed in lowest position, locked, side rails upx3. Bed alarm on. Call light within reach. Will continue to monitor.
[2018-06-17] MEDS: Miconazole 2% Cream 30gm TOPIC SCH ×2 (08:28→18:25)
[2018-06-17] MEDS: Metoprolol Tartrate 50mg tab ORAL SCH ×2 (08:28→20:49)
--- NOTE | 2018-06-17 08:32 | General Progress Note ---
Assessment/Plan Assessment/Plan Impression Diabetic ketoacidosis Anemia Transaminitis of unclear etiology Severe protein calorie malnutrition Evidence of pancreatitis, better Acute renal failure, improved Hyperglycemia Diabetes Hyponatremia Metabolic acidosis Hypercholesterolemia fever oral ulcers afib with RVR leukopenia pancreatitis CVA pleural effusions pulmonary edema PLAN nutrition on antibiotics on lovenox on BIPAP proceed with trach watch fluid status await gt placement impression, plan, and exam edited and reviewed in detail care discussed with RN Subjective Allergies: Coded Allergies: SHELLFISH DERIVED (Verified Allergy, Unknown, swelling and itchiness, 05/14) Subjective care noted NJT in place NAD for trach on BIPAP d/w sister, agreed to trach Objective Last 24 Hour Vital Signs Date Time Temp Pulse Resp B/P (MAP) Pulse Ox O2 Delivery O2 Flow Rate FiO2 06/17/18 08:28 94 132/78 06/17/18 08:00 40 06/17/18 08:00 98.5 80 19 132/78 (96) 99 06/17/18 08:00 Bi-pap 06/17/18 07:00 89 21 140/62 (88) 100 06/17/18 06:38 74 21 98 Full Face 40 06/17/18 06:38 98 Bi-pap 40 06/17/18 06:38 Bi-pap 40 06/17/18 06:36 136/74 06/17/18 06:00 77 22 129/52 (77) 99 06/17/18 05:03 79 21 98 Full Face 40 06/17/18 05:00 80 17 122/58 (79) 99 06/17/18 04:00 76 06/17/18 04:00 98.3 76 23 132/56 (81) 99 06/17/18 04:00 40 06/17/18 04:00 Bi-pap 06/17/18 03:09 67 22 100 Full Face 40 06/17/18 03:00 75 20 127/55 (79) 100 06/17/18 02:00 77 20 124/69 (87) 99 06/17/18 01:00 76 23 122/54 (76) 99 06/17/18 00:44 69 21 100 Full Face 40 06/17/18 00:03 137/66 06/17/18 00:00 98.4 76 21 123/52 (75) 99 06/17/18 00:00 Bi-pap 06/17/18 00:00 76 06/17/18 00:00 40 06/16/18 23:00 75 20 137/66 (89) 100 06/16/18 22:56 78 24 99 Full Face 40 06/16/18 22:00 68 20 122/55 (77) 100 06/16/18 21:31 68 123/61 06/16/18 21:00 74 22 123/61 (81) 100 06/16/18 20:46 77 19 100 Full Face 40 06/16/18 20:00 98.7 74 20 117/56 (76) 100 06/16/18 20:00 Bi-pap 06/16/18 20:00 74 06/16/18 20:00 40 06/16/18 19:00 88 16 110/61 (77) 99 06/16/18 18:51 100 Bi-pap 40 06/16/18 18:51 Bi-pap 40 06/16/18 18:50 77 24 100 Full Face 40 06/16/18 18:00 81 21 119/68 (85) 99 06/16/18 17:48 124/62 06/16/18 17:48 74 124/62 06/16/18 17:30 71 20 100 Full Face 40 06/16/18 17:00 74 18 122/55 (77) 100 06/16/18 17:00 76 22 124/62 (82) 98 06/16/18 16:00 Bi-pap 06/16/18 16:00 40 06/16/18 16:00 99.0 75 22 128/65 (86) 100 06/16/18 16:00 82 06/16/18 15:00 73 18 122/55 (77) 100 06/16/18 14:38 72 24 99 Full Face 40 06/16/18 14:00 72 24 122/55 (77) 99 06/16/18 13:28 74 24 99 Full Face 40 06/16/18 13:00 75 22 113/65 (81) 99 06/16/18 12:00 98.3 79 21 120/60 (80) 96 06/16/18 12:00 40 06/16/18 12:00 69 06/16/18 12:00 Bi-pap 06/16/18 11:34 137/58 06/16/18 11:00 68 28 100 Full Face 40 06/16/18 11:00 67 21 137/58 (84) 98 06/16/18 10:00 67 24 115/55 (75) 98 06/16/18 09:30 68 28 98 Full Face 40 06/16/18 09:05 76 107/48 06/16/18 09:05 78 107/48 06/16/18 09:00 84 23 107/48 (67) 99 Intake and Output 06/16/18 06/17/18 19:00 07:00 Intake Total 902.5 ml 1255.0 ml Output Total 300 ml 460 ml Balance 602.5 ml 795.0 ml Free Water 170 ml 550 ml IV Total 192.5 ml 165.0 ml Tube Feeding 540 ml 540 ml Output Urine Total 300 ml 460 ml # Voids 2 # Bowel Movements 2 3 Laboratory Tests 06/17/18 04:40: Sodium Level 147H, Potassium Level 3.7, Chloride Level 111H, Carbon Dioxide Level 26, Anion Gap 10, Blood Urea Nitrogen 23H, Creatinine 1.7H, Estimat Glomerular Filtration Rate 29.7, Glucose Level 131H, Calcium Level 8.5 Height (Feet): 5 Height (Inches): 10.00 Weight (Pounds): 165 Objective WDWN seems more alert on BIPAP reduced breath sounds bilaterally without rhonchi or wheeze S1S2 RRR without MRG NABS nontender no HSM; NJT in place no CCE weak Jesus Lew MD Jun 17, 2018 08:32
--- NOTE | 2018-06-17 08:35 | NUR ---
P.T Note: Pt will be undergoing trach.procedure today. P.T will be placed on hold this time. MD please reorder P.T when stable/as stable. Thank you.
--- NOTE | 2018-06-17 10:30 | NUR ---
NURSE NOTES: Patient was turned and repositioned. Oral care provided. Patient resting in bed comfortably. daughter at bedside.
--- NOTE | 2018-06-17 10:55 | NUR ---
RADIOLOGY DEPT CHEST X-RAY DONE.-P.DYE
--- NOTE | 2018-06-17 11:13 | Diagnostic Imaging Report ---
Indication: Shortness of breath Technique: One view of the chest Comparison: 06/16/2018 Findings: Left arm PICC remains. Bilateral interstitial and airspace edema, bilateral pleural effusions, cardiac megaly persists, largely unchanged allowing for slight differences in exposure technique. Gastric feeding tube is again demonstrated, tip projecting at the edge of image. Impression: Unchanged, over one day, findings as above.
--- NOTE | 2018-06-17 11:25 | Infectious Diseases Prog Note ---
Assessment/Plan Assessment/Plan A 1. pancreatitis, EUS negative 2. herpes of lip treated 3. DM 4. increased LFT 5. fever resolved 6. hypertension 7. Anemia 10. Hypoxemic respiratory failure 11. Pneumonia with Klebsiella & strep Group B P 1. continue Zosy2. Will have tracheostomy Subjective ROS Limited/Unobtainable: Yes Respiratory: Reports: shortness of breath, dry cough Cardiovascular: Reports: no symptoms Gastrointestinal/Abdominal: Reports: no symptoms Allergies: Coded Allergies: SHELLFISH DERIVED (Verified Allergy, Unknown, swelling and itchiness, 05/14) Objective Vital Signs Last 24 Hour Vital Signs Date Time Temp Pulse Resp B/P (MAP) Pulse Ox O2 Delivery O2 Flow Rate FiO2 06/17/18 10:00 69 17 130/70 (90) 100 06/17/18 09:00 68 19 100 Full Face 40 06/17/18 09:00 70 19 122/62 (82) 100 06/17/18 08:28 94 132/78 06/17/18 08:00 40 06/17/18 08:00 79 06/17/18 08:00 98.5 80 19 132/78 (96) 99 06/17/18 08:00 Bi-pap 06/17/18 07:00 89 21 140/62 (88) 100 06/17/18 06:38 74 21 98 Full Face 40 06/17/18 06:38 98 Bi-pap 40 06/17/18 06:38 Bi-pap 40 06/17/18 06:36 136/74 06/17/18 06:00 77 22 129/52 (77) 99 06/17/18 05:03 79 21 98 Full Face 40 06/17/18 05:00 80 17 122/58 (79) 99 06/17/18 04:00 76 06/17/18 04:00 98.3 76 23 132/56 (81) 99 06/17/18 04:00 40 06/17/18 04:00 Bi-pap 06/17/18 03:09 67 22 100 Full Face 40 06/17/18 03:00 75 20 127/55 (79) 100 06/17/18 02:00 77 20 124/69 (87) 99 06/17/18 01:00 76 23 122/54 (76) 99 06/17/18 00:44 69 21 100 Full Face 40 06/17/18 00:03 137/66 06/17/18 00:00 98.4 76 21 123/52 (75) 99 06/17/18 00:00 Bi-pap 06/17/18 00:00 76 06/17/18 00:00 40 06/16/18 23:00 75 20 137/66 (89) 100 06/16/18 22:56 78 24 99 Full Face 40 06/16/18 22:00 68 20 122/55 (77) 100 06/16/18 21:31 68 123/61 06/16/18 21:00 74 22 123/61 (81) 100 06/16/18 20:46 77 19 100 Full Face 40 06/16/18 20:00 98.7 74 20 117/56 (76) 100 06/16/18 20:00 Bi-pap 06/16/18 20:00 74 06/16/18 20:00 40 06/16/18 19:00 88 16 110/61 (77) 99 06/16/18 18:51 100 Bi-pap 40 06/16/18 18:51 Bi-pap 40 06/16/18 18:50 77 24 100 Full Face 40 06/16/18 18:00 81 21 119/68 (85) 99 06/16/18 17:48 124/62 06/16/18 17:48 74 124/62 06/16/18 17:30 71 20 100 Full Face 40 06/16/18 17:00 74 18 122/55 (77) 100 06/16/18 17:00 76 22 124/62 (82) 98 06/16/18 16:00 Bi-pap 06/16/18 16:00 40 06/16/18 16:00 99.0 75 22 128/65 (86) 100 06/16/18 16:00 82 06/16/18 15:00 73 18 122/55 (77) 100 06/16/18 14:38 72 24 99 Full Face 40 06/16/18 14:00 72 24 122/55 (77) 99 06/16/18 13:28 74 24 99 Full Face 40 06/16/18 13:00 75 22 113/65 (81) 99 06/16/18 12:00 98.3 79 21 120/60 (80) 96 06/16/18 12:00 40 06/16/18 12:00 69 06/16/18 12:00 Bi-pap 06/16/18 11:34 137/58 Height (Feet): 5 Height (Inches): 10.00 Weight (Pounds): 165 HEENT: other - on BIPAP Respiratory/Chest: lungs clear Cardiovascular: normal rate Abdomen: soft, non tender, other - NG tube Extremities: other - edema of hands Neurologic/Psychiatric: alert, responsive Laboratory Tests Test 06/17/18 04:40 Sodium Level 147 MMOL/L (136-145) H Potassium Level 3.7 MMOL/L (3.5-5.1) Chloride Level 111 MMOL/L (98-107) H Carbon Dioxide Level 26 MMOL/L (21-32) Anion Gap 10 mmol/L (5-15) Blood Urea Nitrogen 23 mg/dL (7-18) H Creatinine 1.7 MG/DL (0.55-1.30) H Estimat Glomerular Filtration Rate 29.7 mL/min (>60) Glucose Level 131 MG/DL (74-106) H Calcium Level 8.5 MG/DL (8.5-10.1) Current Medications Medications (Trade) Dose Ordered Sig/Ellen Route PRN Reason Start Time Stop Time Status Last Admin Dose Admin Acetaminophen (Tylenol) 650 mg Q4H PRN ORAL Mild Pain/Temp > 100.5 06/08/18 15:00 07/02/18 14:59 Al Hydroxide/Mg Hydroxide (Mylanta) 30 ml Q6H PRN ORAL Abdominal cramps 06/08/18 15:00 07/02/18 14:59 Amlodipine Besylate (Norvasc) 5 mg BID ORAL 06/08/18 18:00 06/28/18 08:59 06/16/18 17:48 Aspirin (ASA) 81 mg DAILY ORAL 06/09/18 09:00 06/24/18 08:59 06/16/18 09:05 Chlorhexidine Gluconate (Leora-Hex 2%) 1 applic DAILY@2000 TOPIC 06/08/18 20:00 06/24/18 19:59 06/16/18 19:56 Enoxaparin Sodium (Lovenox) 80 mg Q24H SUBQ 06/09/18 09:00 07/03/18 08:59 06/16/18 09:07 Haloperidol Lactate (Haldol) 5 mg Q6H PRN IM Agitation 06/08/18 15:00 07/02/18 14:59 Hydralazine HCl (Apresoline) 25 mg Q6HR ORAL 06/08/18 18:00 07/02/18 00:00 06/17/18 06:36 Insulin Aspart (NovoLOG) Q6HR SUBQ 06/16/18 18:00 07/08/18 16:29 06/17/18 06:40 Lansoprazole (Prevacid) 30 mg DAILY GT 06/11/18 09:00 07/11/18 08:59 06/16/18 09:05 Magnesium Hydroxide (Mom) 30 ml DAILYPRN PRN ORAL Constipation 06/08/18 15:00 07/02/18 14:59 Metoprolol Tartrate (Lopressor) 5 mg Q2H PRN IVP For High Blood Pressure 06/08/18 15:00 06/23/18 16:59 Metoprolol Tartrate (Lopressor) 50 mg Q12HR ORAL 06/08/18 21:00 06/26/18 20:59 06/17/18 08:28 Miconazole Nitrate (Miconazole Nitrate) 1 applic BID TOPIC 06/09/18 18:30 07/09/18 18:29 06/17/18 08:28 Olanzapine (ZyPREXA) 2.5 mg BEDTIME ORAL 06/08/18 21:00 07/01/18 20:59 06/16/18 21:31 Piperacillin Sod/ Tazobactam Sod 3.375 gm/Dextrose 110 ml @ 27.5 mls/hr Q8HR IVPB 06/09/18 14:00 06/20/18 13:59 06/17/18 06:37 Mahesh Tejada MD Jun 17, 2018 11:25
--- NOTE | 2018-06-17 12:40 | NUR ---
NURSE NOTES: Patient is asleep, easily arousable. on bipap. no acute distress noted.
--- NOTE | 2018-06-17 14:40 | NUR ---
NURSE NOTES: Patient on bilateral soft wrist restraints. No skin breakdown noted.
[2018-06-17 14:41] LABS: INR 1.2 (0.9-1.1)
[2018-06-17] MEDS ORDERED: Zemuron 50mg/5ml Inj IV ONE (14:46)
[2018-06-17 14:49] LABS: BASOPHILS % (AUTO) 1.4 % (0.0-2.0); EOSINOPHILS % (AUTO) 7.7 % (0.0-3.0); HEMATOCRIT 27.8 % (37.0-47.0); HEMOGLOBIN 8.3 G/DL (12.0-16.0); LYMPHOCYTES % (AUTO) 9.1 % (20.0-45.0); MEAN CORPUSCULAR VOLUME 94 FL (80-99); MONOCYTES % (AUTO) 6.3 % (1.0-10.0); NEUTROPHILS % (AUTO) 75.5 % (45.0-75.0); PLATELET COUNT 235 K/UL (150-450); RED BLOOD COUNT 2.94 M/UL (4.20-5.40); WHITE BLOOD COUNT 9.4 K/UL (4.8-10.8)
--- NOTE | 2018-06-17 15:23 | Immediate Post-Op Evaluation ---
Immediate Post-Op Evalulation Immediate Post-Op Evalulation Procedure: Tracheostomy Date of Evaluation: Jun 17, 2018 Time of Evaluation: 17:58 IV Fluids: 200 LR Blood Products: 0 Estimated Blood Loss: 7 Urinary Output: 0 Blood Pressure Systolic: 117 Blood Pressure Diastolic: 61 Pulse Rate: 95 Respiratory Rate: 12 - Mech Vent O2 Sat by Pulse Oximetry: 100 Temperature (Fahrenheit): 98.4 Pain Score (1-10): 1 Nausea: No Vomiting: No Complications 0 Patient Status: no response, patent, ventilated, none Hydration Status: adequate Daljit Cross MD Jun 17, 2018 15:23
--- NOTE | 2018-06-17 15:52 | NUR ---
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 98.9 HR 74 RR 19 B/P 132/69 BIPAP 15/5 FIO2 40% NA 147 BUN 23 CR 1.7 IS: ZOSYN IV PREVACID GT ICU STATUS
[2018-06-17] MEDS ORDERED: Lidocaine 1% 10mg/ml/Epi 0.005mg/ml 30ml vial INJ ONE (16:15)
[2018-06-17] MEDS ORDERED: Lidocaine 1% MPF 10mg/ml 5ml ONE (16:30)
[2018-06-17] MEDS ORDERED: NS Irrig 1000ml ONE (16:30)
[2018-06-17] MEDS ORDERED: Sterile Water Irrig 1000ml IRRIG ONE (16:30)
[2018-06-17] MEDS ORDERED: LR 1000ml ONE (16:30)
[2018-06-17] MEDS ORDERED: Propofol 200mg/20ml IV ONE (16:30)
--- NOTE | 2018-06-17 16:56 | NUR ---
NURSE NOTES: Patient off the unit for trach placement. daughter at bedside.
--- NOTE | 2018-06-17 17:44 | Brief Operative Note ---
Immediate Post Operative Note Operative Note Pre-op Diagnosis: respiratory insufficiency Procedure: trach Post-op Diagnosis: same Surgeon: bridget Anesthesiologist: timbo Anesthesia: general Specimen: none Complications: none Condition: stable Fluids: see records Estimated Blood Loss: minimal Drains: none Implant(s) used?: Walter Hoffman Jun 17, 2018 17:44
--- NOTE | 2018-06-17 17:45 | NUR ---
RESPIRATORY NOTE: Received pt back from OR. Pt is tracheostomy with cuffed, Shiley 8. Placed pt on vent AC 12- 500ml-50% FiO2 no peep per Dr. Lew. Pt is sedated, no SOB or resp distress at this time, tolerating the vent well. Alarms are set and audible, ambu bag is at bedside, vent is plugged into the red outlet. Vent circuit and sxn tube is secured and out of the way. Will continue to monitor pt closely.
--- NOTE | 2018-06-17 18:00 | NUR ---
RESPIRATORY NOTE: Patient back to the room from OR, s/p tracheostomy, Shiley 8.0. Pt on vent AC12, TV 500, FIO2 50, no PEEP, O2 sat 100%. Patient is sedated. no acute distress noted. Dobhuff intact, NPO at this time. Left upper PICC intact. zosyn resumed. daughter at bedside. bed in lowest position. Call light within reach. Will continue to monitor. Addendum: 06/17/18 at 1940 by RICKI FINNEY RN Correction: NURSE NOTES
--- NOTE | 2018-06-17 18:44 | 48 Hour Post Anesthesia Eval ---
Post Anesthesia Evaluation Procedure: Tracheostomy Date of Evaluation: Jun 17, 2018 Time of Evaluation: 18:42 Blood Pressure Systolic: 124 0: 55 Pulse Rate: 83 Respiratory Rate: 12 Temperature (Fahrenheit): 98.6 O2 Sat by Pulse Oximetry: 100 Airway: patent Nausea: No Vomiting: No Pain Intensity: 0 Hydration Status: adequate Cardiopulmonary Status: Stable Mental Status/LOC: patient returned to baseline Follow-up Care/Observations: 0 Post-Anesthesia Complications: 0 Follow-up care needed: N/A Daljit Cross MD Jun 17, 2018 18:44
--- NOTE | 2018-06-17 19:30 | NUR ---
NURSE NOTES: Received report from Jhoana Suárez RN. Patient in bed resting arousable to verbal and tactile stimuli. HOB elevated. S/P tracheostomy no bleeding Shiley 8 AC 12, TV 500, Fi02 40%, 0 peep. Denies any pain or discomfort. Dobhoff intact. Skin warm and dry to touch. OMAR PICC line intact TKO. patient with Purewick. Bilateral soft wrist restraint intact. On P200 mattress for wound management. Bed alarm on. Bed locked and in low position. Will continue plan of care.
--- NOTE | 2018-06-17 19:35 | NUR ---
NURSE NOTES: Okay to resume tube feeding via dobhuff per Dr. High and Dr. Jewell and NPO at midnight for PEG placement tomorrow.
--- NOTE | 2018-06-17 19:40 | NUR ---
HAND-OFF: Report given to WAYNE Sevilla.
--- NOTE | 2018-06-17 20:07 | General Progress Note ---
Assessment/Plan Assessment/Plan Assessment - Respiratory failure - Acute pancreatitis - Anemia - Leukocytosis - dysphagia - Azotemia - Urolithiasis - UTI - Cholelithiasis - DM - CAD/CABG - Gout Recommendations - vent care - Tube feeds - follow labs and exam - PEG at 0700 Subjective Allergies: Coded Allergies: SHELLFISH DERIVED (Verified Allergy, Unknown, swelling and itchiness, 05/14) Subjective above noted Trach done today PEG scheduled for am Objective Last 24 Hour Vital Signs Date Time Temp Pulse Resp B/P (MAP) Pulse Ox O2 Delivery O2 Flow Rate FiO2 06/17/18 19:19 92 12 40 50 06/17/18 19:00 96 13 132/57 (82) 99 06/17/18 18:44 83 12 100 06/17/18 18:25 124/55 06/17/18 18:25 83 124/55 06/17/18 18:00 98.1 83 21 124/55 (78) 100 06/17/18 17:42 84 12 50 06/17/18 17:41 95 12 100 06/17/18 17:00 77 18 128/62 (84) 98 06/17/18 16:00 80 06/17/18 16:00 40 06/17/18 16:00 Bi-pap 06/17/18 15:16 94 19 97 Full Face 40 06/17/18 15:00 76 18 132/69 (90) 96 06/17/18 14:00 84 17 132/69 (90) 99 06/17/18 13:00 98.9 74 19 131/78 (95) 100 06/17/18 12:40 77 22 100 Full Face 40 06/17/18 12:00 Bi-pap 06/17/18 12:00 40 06/17/18 12:00 67 15 141/101 (114) 100 06/17/18 12:00 64 06/17/18 11:00 68 17 137/69 (91) 100 06/17/18 10:30 74 18 100 Full Face 40 06/17/18 10:00 69 17 130/70 (90) 100 06/17/18 09:00 68 19 100 Full Face 40 06/17/18 09:00 70 19 122/62 (82) 100 06/17/18 08:28 94 132/78 06/17/18 08:00 40 06/17/18 08:00 79 06/17/18 08:00 98.5 80 19 132/78 (96) 99 06/17/18 08:00 Bi-pap 06/17/18 07:00 89 21 140/62 (88) 100 06/17/18 06:38 74 21 98 Full Face 40 06/17/18 06:38 98 Bi-pap 40 06/17/18 06:38 Bi-pap 40 06/17/18 06:36 136/74 06/17/18 06:00 77 22 129/52 (77) 99 06/17/18 05:03 79 21 98 Full Face 40 06/17/18 05:00 80 17 122/58 (79) 99 06/17/18 04:00 76 06/17/18 04:00 98.3 76 23 132/56 (81) 99 06/17/18 04:00 40 06/17/18 04:00 Bi-pap 06/17/18 03:09 67 22 100 Full Face 40 06/17/18 03:00 75 20 127/55 (79) 100 06/17/18 02:00 77 20 124/69 (87) 99 06/17/18 01:00 76 23 122/54 (76) 99 06/17/18 00:44 69 21 100 Full Face 40 06/17/18 00:03 137/66 06/17/18 00:00 98.4 76 21 123/52 (75) 99 06/17/18 00:00 Bi-pap 06/17/18 00:00 76 06/17/18 00:00 40 06/16/18 23:00 75 20 137/66 (89) 100 06/16/18 22:56 78 24 99 Full Face 40 06/16/18 22:00 68 20 122/55 (77) 100 06/16/18 21:31 68 123/61 06/16/18 21:00 74 22 123/61 (81) 100 06/16/18 20:46 77 19 100 Full Face 40 Intake and Output 06/16/18 06/17/18 19:00 07:00 Intake Total 902.5 ml 1255.0 ml Output Total 300 ml 460 ml Balance 602.5 ml 795.0 ml Free Water 170 ml 550 ml IV Total 192.5 ml 165.0 ml Tube Feeding 540 ml 540 ml Output Urine Total 300 ml 460 ml # Voids 2 # Bowel Movements 2 3 Laboratory Tests 06/17/18 04:40: Sodium Level 147H, Potassium Level 3.7, Chloride Level 111H, Carbon Dioxide Level 26, Anion Gap 10, Blood Urea Nitrogen 23H, Creatinine 1.7H, Estimat Glomerular Filtration Rate 29.7, Glucose Level 131H, Calcium Level 8.5 06/17/18 14:08: Prothrombin Time 12.2H, Prothromb Time International Ratio 1.2H, Activated Partial Thromboplast Time 32 06/17/18 14:20: White Blood Count 9.4, Red Blood Count 2.94L, Hemoglobin 8.3L, Hematocrit 27.8L , Mean Corpuscular Volume 94, Mean Corpuscular Hemoglobin 28.3, Mean Corpuscular Hemoglobin Concent 30.0L, Red Cell Distribution Width 21.0H, Platelet Count 235, Mean Platelet Volume 6.8, Neutrophils (%) (Auto) 75.5H, Lymphocytes (%) (Auto) 9.1L, Monocytes (%) (Auto) 6.3, Eosinophils (%) (Auto) 7.7H, Basophils (%) (Auto) 1.4 Height (Feet): 5 Height (Inches): 10.00 Weight (Pounds): 165 Objective WDWN NCAT,(+) BIPAP Neck supple Coarse BS RRR abd soft, ND restrained, confused Mary Jewell MD Jun 17, 2018 20:06
--- NOTE | 2018-06-17 20:13 | General Progress Note ---
Assessment/Plan Assessment/Plan Assessment and Recs # Pancytopenia -- appears that initial hep and hiv are negative though final results to follow, liver shows no major hsm or cirrhosis, may consider meds or bone marrow process, smear reviewed, does have low albumin, has been hospitalized for some time, in and out since 04/30/18. Hiv and hepatitis panels are both negative --> query meds, review with ID, is on micafungin now, monitor counts closely --> given hgb downtrending and some nucleated reds on smear, will send off a flow cytometry --> nepogen 300mcg sq to maintain anc >1500 --> wbc trend : 1.7-->4.3-->3.1-->3.4-->7.7-->8.1--12-->15-->11-->14.6 # Anemia of chronic disease - monitor anemia panel --> hemolysis does not appear to be the case --> anemia panel reviewed and c/w acd --> hgb trend: 8.3-->9.2-->8.9-->8.7-->9-->7.7-->7--->8 # Paroxysmal atrial fibrillation, due to CHADS-VASC score of 5, we require to keep anticoagulated, on metoprolol --> continue on apixaban # Hx of CAD, s/p CABG, ASA , atorvastatin and metoprolol. No wall motion abnormalities on Echo. LVEF ~55%. --> appreciate cards recs # Sinus tachycardia due to hypovolemia, resolved. # DKA, resolved. --> continue monitor # DM, non-compliant with medications. # Hx of HTN, controlled with metoprolol. # pancreatitis -- appreciate gi recs # increased LFT The timing of this note does not necessarily reflect the time of the patient was seen. Greatly appreciate consultation! Subjective Constitutional: Denies: no symptoms, chills, diaphoresis, fever, malaise, weakness, other HEENT: Denies: no symptoms, eye pain, blurred vision, tearing, double vision, ear pain, ear discharge, nose pain, nose congestion, throat pain, throat swelling, mouth pain, mouth swelling, other Cardiovascular: Denies: no symptoms, chest pain, edema, irregular heart rate, lightheadedness, palpitations, syncope, other Respiratory: Denies: no symptoms, cough, orthopnea, shortness of breath, SOB with excertion, SOB at rest, sputum, stridor, wheezing, other Gastrointestinal/Abdominal: Denies: no symptoms, abdomen distended, abdominal pain, black stools, tarry stools, blood in stool, constipated, diarrhea, difficulty swallowing, nausea, poor appetite, poor fluid intake, rectal bleeding , vomiting, other Endocrine: Denies: no symptoms, excessive sweating, flushing, intolerance to cold, intolerance to heat, increased hunger, increased thirst, increased urine, unexplained weight gain, unexplained weight loss, other Allergies: Coded Allergies: SHELLFISH DERIVED (Verified Allergy, Unknown, swelling and itchiness, 05/14) Subjective 05/18: Pt is awake and comfortable, no events, leukopenia improved, wbc 4.3, plt 151 05/19: seen by bedside, awake, comfortable, plt 122 05/20: Pt is awake and comfortable, no events 2: Pt is seen in the room, resting in bed, no fevers or chills, wbc 8.7, plt 117 2: Pt is resting in bed, awake, comfortable, no fevers or chills, no acute distress. 05/24: EGD and EUS done today, has no gallbladder stones, only pancreatitis, no events 2: no events, dermatitis has improved, off loading of heels, pancreatitis and dka better 2: Pt is awake, comfortable, no acute events overnight, hgb 8.6 05/27: seen by bedside, awake, comfortable, no events 05/28: resting in bed, awake, comfortable, no fevers or chills, no acute distress , No need for ERCP per GI, 05/31: Pt is awake and comfortable, no events 06/01: awake, comfortable, denies acute distress. 06/02: seen by bedside, awake, comfortable, no acute distress. wbc 15. 2: no acute events, denies any abdominal pain, wbc trending down at 11 today. 06/04: awake/drowsy in bed, breathing easily on nasal cannula, denies SOB and pain at this time. 06/06: anemia cotninues to worsen, may consider a bone marrow biopsy if patient approves 2/18: hgb 9.7, not eating well, remains lethargic 06/08: hgb is stable, respiratory status is worsened, and thus was transferred to the icu 06/09: seen by bedside,awake, comfortable, plan to insert NGT samanta 06/10: not eating well, remains lethargic 06/11: poor po intake but currently on BIPAP and not stable for PEG placement, NGTF on hold per pulm 06/13:Seen by bedside, less confused, on BIPAP, no events 06/14: seen by bedside, on BIPAP, NJT feeds, no events 06/15: On BIPAP, Less confused, NJT feeds started, no events 06/16: awake, comfortable, NJT in place, more alert, on BIPAP, agreed to trach 06/17: Trach done today, PEG scheduled for am, no acute distress Objective Last 24 Hour Vital Signs Date Time Temp Pulse Resp B/P (MAP) Pulse Ox O2 Delivery O2 Flow Rate FiO2 06/17/18 19:19 92 12 40 50 06/17/18 19:00 96 13 132/57 (82) 99 06/17/18 18:44 83 12 100 06/17/18 18:25 124/55 06/17/18 18:25 83 124/55 06/17/18 18:00 98.1 83 21 124/55 (78) 100 06/17/18 17:42 84 12 50 06/17/18 17:41 95 12 100 06/17/18 17:00 77 18 128/62 (84) 98 06/17/18 16:00 80 06/17/18 16:00 40 06/17/18 16:00 Bi-pap 06/17/18 15:16 94 19 97 Full Face 40 06/17/18 15:00 76 18 132/69 (90) 96 06/17/18 14:00 84 17 132/69 (90) 99 06/17/18 13:00 98.9 74 19 131/78 (95) 100 06/17/18 12:40 77 22 100 Full Face 40 06/17/18 12:00 Bi-pap 06/17/18 12:00 40 06/17/18 12:00 67 15 141/101 (114) 100 06/17/18 12:00 64 06/17/18 11:00 68 17 137/69 (91) 100 06/17/18 10:30 74 18 100 Full Face 40 06/17/18 10:00 69 17 130/70 (90) 100 06/17/18 09:00 68 19 100 Full Face 40 06/17/18 09:00 70 19 122/62 (82) 100 06/17/18 08:28 94 132/78 06/17/18 08:00 40 06/17/18 08:00 79 06/17/18 08:00 98.5 80 19 132/78 (96) 99 06/17/18 08:00 Bi-pap 06/17/18 07:00 89 21 140/62 (88) 100 06/17/18 06:38 74 21 98 Full Face 40 06/17/18 06:38 98 Bi-pap 40 06/17/18 06:38 Bi-pap 40 06/17/18 06:36 136/74 06/17/18 06:00 77 22 129/52 (77) 99 06/17/18 05:03 79 21 98 Full Face 40 06/17/18 05:00 80 17 122/58 (79) 99 06/17/18 04:00 76 06/17/18 04:00 98.3 76 23 132/56 (81) 99 06/17/18 04:00 40 06/17/18 04:00 Bi-pap 06/17/18 03:09 67 22 100 Full Face 40 06/17/18 03:00 75 20 127/55 (79) 100 06/17/18 02:00 77 20 124/69 (87) 99 06/17/18 01:00 76 23 122/54 (76) 99 06/17/18 00:44 69 21 100 Full Face 40 06/17/18 00:03 137/66 06/17/18 00:00 98.4 76 21 123/52 (75) 99 06/17/18 00:00 Bi-pap 06/17/18 00:00 76 06/17/18 00:00 40 06/16/18 23:00 75 20 137/66 (89) 100 06/16/18 22:56 78 24 99 Full Face 40 06/16/18 22:00 68 20 122/55 (77) 100 06/16/18 21:31 68 123/61 06/16/18 21:00 74 22 123/61 (81) 100 06/16/18 20:46 77 19 100 Full Face 40 Intake and Output 06/16/18 06/17/18 19:00 07:00 Intake Total 902.5 ml 1255.0 ml Output Total 300 ml 460 ml Balance 602.5 ml 795.0 ml Free Water 170 ml 550 ml IV Total 192.5 ml 165.0 ml Tube Feeding 540 ml 540 ml Output Urine Total 300 ml 460 ml # Voids 2 # Bowel Movements 2 3 Laboratory Tests 06/17/18 04:40: Sodium Level 147H, Potassium Level 3.7, Chloride Level 111H, Carbon Dioxide Level 26, Anion Gap 10, Blood Urea Nitrogen 23H, Creatinine 1.7H, Estimat Glomerular Filtration Rate 29.7, Glucose Level 131H, Calcium Level 8.5 06/17/18 14:08: Prothrombin Time 12.2H, Prothromb Time International Ratio 1.2H, Activated Partial Thromboplast Time 32 06/17/18 14:20: White Blood Count 9.4, Red Blood Count 2.94L, Hemoglobin 8.3L, Hematocrit 27.8L , Mean Corpuscular Volume 94, Mean Corpuscular Hemoglobin 28.3, Mean Corpuscular Hemoglobin Concent 30.0L, Red Cell Distribution Width 21.0H, Platelet Count 235, Mean Platelet Volume 6.8, Neutrophils (%) (Auto) 75.5H, Lymphocytes (%) (Auto) 9.1L, Monocytes (%) (Auto) 6.3, Eosinophils (%) (Auto) 7.7H, Basophils (%) (Auto) 1.4 Height (Feet): 5 Height (Inches): 10.00 Weight (Pounds): 165 Objective PHYSICAL EXAMINATION: GENERAL: Pleasant [place] woman, tired HEENT: Normocephalic and atraumatic. Sclerae anicteric. Oropharynx clear. NECK: Supple Trach++ CHEST: bilateral crackles and ++ nc CARDIOVASCULAR: Revealed regular rate. ABDOMEN: Soft. Good bowel sounds. There is no organomegaly or tenderness. Anterior chest and abdomen scars were as expected. EXTREMITIES: Revealed no edema. Armando Bowen MD Jun 17, 2018 20:13
--- NOTE | 2018-06-17 20:26 | NUR ---
NURSE NOTES: Dr. Jewell called regarding PEG placement order, per MD hold Lovenox dose in am noted and carried out.
[2018-06-17] MEDS: Dyna-Hex 2% Top Sol 2oz TOPIC SCH (20:48)
[2018-06-17] MEDS: OLANZapine 2.5mg tab ORAL SCH (20:49)
--- NOTE | 2018-06-17 21:30 | NUR ---
NURSE NOTES: Daughter called and updated regarding the patient condition. patient arousable to verbal and tactile stimuli. Patient able to make needs known to staff.Will continue plan of care.
--- NOTE | 2018-06-17 21:32 | Cardiology Progress Note ---
Assessment/Plan Assessment/Plan 1. Paroxysmal atrial fibrillation, in sinus rhythm now, due to CHADS-VASC score of 5, continue enoxaparin and metoprolol. 2. Hx of CAD, s/p CABG, ASA , atorvastatin and metoprolol. No wall motion abnormalities on Echo, LVEF ~55%. 3. Sinus tachycardia, resolved, likely due to hypovolemia. 4. DKA, resolved. 5. DM 6. HTN, well controlled, continue amlodipine, metoprolol and hydralazine. 7. Severe pulmonary HTN. 8. MAMADOU, creatinine down to 1.7. 9. Hypokalemia, resolved, K at 3.7. Subjective Subjective Sinus rhythm at rate of 70. On full face mask oxygen, FiO2 40%. Objective Last 24 Hour Vital Signs Date Time Temp Pulse Resp B/P (MAP) Pulse Ox O2 Delivery O2 Flow Rate FiO2 06/17/18 21:10 70 12 40 50 06/17/18 20:49 89 120/55 06/17/18 19:19 92 12 40 50 06/17/18 19:00 96 13 132/57 (82) 99 06/17/18 18:44 83 12 100 06/17/18 18:25 124/55 06/17/18 18:25 83 124/55 06/17/18 18:00 98.1 83 21 124/55 (78) 100 06/17/18 17:42 84 12 50 06/17/18 17:41 95 12 100 06/17/18 17:00 77 18 128/62 (84) 98 06/17/18 16:00 80 06/17/18 16:00 40 06/17/18 16:00 Bi-pap 06/17/18 15:16 94 19 97 Full Face 40 06/17/18 15:00 76 18 132/69 (90) 96 06/17/18 14:00 84 17 132/69 (90) 99 06/17/18 13:00 98.9 74 19 131/78 (95) 100 06/17/18 12:40 77 22 100 Full Face 40 06/17/18 12:00 Bi-pap 06/17/18 12:00 40 06/17/18 12:00 67 15 141/101 (114) 100 06/17/18 12:00 64 06/17/18 11:00 68 17 137/69 (91) 100 06/17/18 10:30 74 18 100 Full Face 40 06/17/18 10:00 69 17 130/70 (90) 100 06/17/18 09:00 68 19 100 Full Face 40 06/17/18 09:00 70 19 122/62 (82) 100 06/17/18 08:28 94 132/78 06/17/18 08:00 40 06/17/18 08:00 79 06/17/18 08:00 98.5 80 19 132/78 (96) 99 06/17/18 08:00 Bi-pap 06/17/18 07:00 89 21 140/62 (88) 100 06/17/18 06:38 74 21 98 Full Face 40 06/17/18 06:38 98 Bi-pap 40 06/17/18 06:38 Bi-pap 40 06/17/18 06:36 136/74 06/17/18 06:00 77 22 129/52 (77) 99 06/17/18 05:03 79 21 98 Full Face 40 06/17/18 05:00 80 17 122/58 (79) 99 06/17/18 04:00 76 06/17/18 04:00 98.3 76 23 132/56 (81) 99 06/17/18 04:00 40 06/17/18 04:00 Bi-pap 06/17/18 03:09 67 22 100 Full Face 40 06/17/18 03:00 75 20 127/55 (79) 100 06/17/18 02:00 77 20 124/69 (87) 99 06/17/18 01:00 76 23 122/54 (76) 99 06/17/18 00:44 69 21 100 Full Face 40 06/17/18 00:03 137/66 06/17/18 00:00 98.4 76 21 123/52 (75) 99 06/17/18 00:00 Bi-pap 06/17/18 00:00 76 06/17/18 00:00 40 06/16/18 23:00 75 20 137/66 (89) 100 06/16/18 22:56 78 24 99 Full Face 40 06/16/18 22:00 68 20 122/55 (77) 100 Intake and Output 06/16/18 06/17/18 19:00 07:00 Intake Total 902.5 ml 1255.0 ml Output Total 300 ml 460 ml Balance 602.5 ml 795.0 ml Free Water 170 ml 550 ml IV Total 192.5 ml 165.0 ml Tube Feeding 540 ml 540 ml Output Urine Total 300 ml 460 ml # Voids 2 # Bowel Movements 2 3 2D Echo: EF55%,Mild LVH,Mod MR,Mild AR,RVSP 67 mmHg (severe PHT),Restrictive LV phy Laboratory Tests Test 06/17/18 04:40 06/17/18 14:08 06/17/18 14:20 Sodium Level 147 MMOL/L (136-145) H Potassium Level 3.7 MMOL/L (3.5-5.1) Chloride Level 111 MMOL/L (98-107) H Carbon Dioxide Level 26 MMOL/L (21-32) Anion Gap 10 mmol/L (5-15) Blood Urea Nitrogen 23 mg/dL (7-18) H Creatinine 1.7 MG/DL (0.55-1.30) H Estimat Glomerular Filtration Rate 29.7 mL/min (>60) Glucose Level 131 MG/DL (74-106) H Calcium Level 8.5 MG/DL (8.5-10.1) Prothrombin Time 12.2 SEC (9.30-11.50) H Prothromb Time International Ratio 1.2 (0.9-1.1) H Activated Partial Thromboplast Time 32 SEC (23-33) White Blood Count 9.4 K/UL (4.8-10.8) Red Blood Count 2.94 M/UL (4.20-5.40) L Hemoglobin 8.3 G/DL (12.0-16.0) L Hematocrit 27.8 % (37.0-47.0) L Mean Corpuscular Volume 94 FL (80-99) Mean Corpuscular Hemoglobin 28.3 PG (27.0-31.0) Mean Corpuscular Hemoglobin Concent 30.0 G/DL (32.0-36.0) L Red Cell Distribution Width 21.0 % (11.6-14.8) H Platelet Count 235 K/UL (150-450) Mean Platelet Volume 6.8 FL (6.5-10.1) Neutrophils (%) (Auto) 75.5 % (45.0-75.0) H Lymphocytes (%) (Auto) 9.1 % (20.0-45.0) L Monocytes (%) (Auto) 6.3 % (1.0-10.0) Eosinophils (%) (Auto) 7.7 % (0.0-3.0) H Basophils (%) (Auto) 1.4 % (0.0-2.0) Objective HEENT: Normocephalic, atraumatic, Pupils equally reactive to light and accommodation, EOMI. NECK: No JVD, no carotid bruit. CARDIOVASCULAR: Regular rate and rhythm. No murmurs, gallops or rubs. LUNGS: Clear to auscultation bilaterally. No crackles or Rhonchi. ABDOMEN: Soft and nontender. No organomegaly, + BS. EXTREMITIES: No cyanosis, clubbing or edema. Miller Mckeon MD Jun 17, 2018 21:32
--- NOTE | 2018-06-17 21:45 | Operative Note - Dictated ---
DATE OF OPERATION: 06/17/2018 PREOPERATIVE DIAGNOSIS: Respiratory insufficiency, requiring ventilatory and positive pressure support. POSTOPERATIVE DIAGNOSIS: Respiratory insufficiency, requiring ventilatory and positive pressure support. OPERATION PERFORMED: Tracheostomy. ATTENDING SURGEON: Walter High M.D. KILN FURNITURE SAW TENDER: None. ANESTHESIOLOGIST: Daljit Cross M.D. ANESTHESIA: General JUNIOR DATA ANALYST. ESTIMATED BLOOD LOSS: Minimal. IV FLUIDS: Please see anesthesia records. COMPLICATIONS: None. DRAINS: None. SPECIMENS: None. WOUND CLASSIFICATION: Class I. COUNTS: Sponge and needle count correct x2. ANTIBIOTICS: The patient was given IV antibiotics. INDICATIONS FOR PROCEDURE: This is a 72-year-old female who is currently in the intensive care unit at [facility] who has had respiratory insufficiency and has been on positive-pressure BiPAP mask for sometime now. Given the patient's chronic long history and acute respiratory insufficiency. She has been unable to wean from positive pressure. She is extremely uncomfortable with the BiPAP mask and requires an almost throughout the entirety of the day. Given these findings, floodplain manager discussed with the patient and the family regards to tracheostomy, which they seem interested in which time-out was called and evaluated the patient and tracheostomy was recommended and indicated. Risks, benefits, and alternatives were discussed with family in detail and the patient as well and consent was obtained. OPERATIVE NOTE: The patient taken to the operating room and placed on the operating table in supine position, and made comfortable. All bony prominences well padded. SCDs placed. Preoperative time-out was taken in identifying the patient, procedure, operative staff, and surgical staff. General anesthesia was induced. The patient was intubated. A shoulder roll was placed. The neck was hyperextended. Neck was prepped and draped in standard surgical fashion. Anatomical landmarks were identified. Local anesthetic was infiltrated in post incision and a skin incision was made to center 2 fingerbreadths above the sternal notch using a fresh #15 scalpel. Incision was carried down through subcutaneous tissue, platysma, and down to the strap muscles. The median raphe was identified and divided and the trachea visualized. Tracheal hook was placed and the first and second tracheal rings were clearly identified and dissected out. Following this, a Augusto flap window was made in the trachea and the ET tube identified. ET tube was slowly withdrawn with assistance of anesthesiologist and once above the area of the flap window, an 8-Spanish Shiley tracheostomy was inserted under direct visualization without complication. Trachea cannula was inserted as well as balloon being insufflated and the patient was ventilated through the tracheostomy with good tidal volumes and end-tidal CO2. The skin incision was reapproximated with 3-0 Monocryl sutures and trach tie was applied. Dressings were applied. The patient tolerated the procedure well, was taken to the intensive care unit in stable condition. Walter High M.D. DR: LEIGH JOB#: [id number] CC:
--- NOTE | 2018-06-17 23:30 | NUR ---
NURSE NOTES: pt in bed resting, no s/s of hypo/hyperglycemia. S/s tracheostomy oral care and suctioned, with blood tinged secretion. Will continue plan of care. repositioned.
[2018-06-18] VITALS (40 sets, daily range): BP systolic 89–128; BP diastolic 42–86
[2018-06-18] MEDS: HydrALAZINE 25mg tab ORAL SCH ×4 (00:39→18:00)
[2018-06-18] MEDS: NovoLOG Insulin Flexpen SUBQ SCH ×4 (00:40→18:04)
--- NOTE | 2018-06-18 01:30 | NUR ---
NURSE NOTES: Patient in bed sleeping comfortably, no s/s of acute distress noted. trach to vent. HOB elevated. Will continue plan of care.
--- NOTE | 2018-06-18 03:30 | NUR ---
NURSE NOTES: Bed bath given. with episode of diarrhea X2. Kept clean dry. No fever. Denies any pain or discomfort. Will continue plan of care.
--- NOTE | 2018-06-18 05:30 | NUR ---
NURSE NOTES: With episode of loose stool collected stool for c-diff. Repositioned. Oral care done. No s/s of hypo/hyperglycemia Blood glucose 152mg/dl. Will continue plan of care. NPO after 12mn for Peg placement
--- NOTE | 2018-06-18 06:30 | NUR ---
NURSE NOTES: GI checklist done.
[2018-06-18] MEDS: Piperacillin/Tazobactam 3.375 GM in D5W 110 ML IVPB SCH (06:35)
[2018-06-18] MEDS ORDERED: Lidocaine 1% MPF 10mg/ml 5ml ONE (07:00)
[2018-06-18] MEDS ORDERED: Propofol 200mg/20ml IV ONE (07:00)
--- NOTE | 2018-06-18 07:05 | NUR ---
HAND-OFF: Report given to WAYNE Boyle.
--- NOTE | 2018-06-18 07:06 | NUR ---
NURSE NOTES: Report received from WAYNE Sevilla. Pt is alert, awake and oriented x3. Confused at times. On bilateral soft wrist restraints. Sinus rhythm on equipment monitor phototypesetting. Trach to vent. S 8. AC 12, TV 500, FiO2 50%. O2 sat 99-100%. No respiratory distress noted. GI lab at bedside, getting ready for PEG placement. Left UA PICC line patent and asymptomatic. Bed in lowest position. Side rails up x3. Call light within reach. Will resume plan of care.
--- NOTE | 2018-06-18 07:09 | Anethesia Preoperative Eval ---
Anesthesia Pre-op PMH/ROS General Date of Evaluation: Jun 18, 2018 Time of Evaluation: 06:51 Anesthesiologist: Trang Youssef CRNA ASA Score: ASA 4 Mallampati Score Class I : Soft palate, uvula, fauces, pillars visible Class II: Soft palate, uvula, fauces visible Class III: Soft palate, base of uvula visible Class IV: Only hard plate visible Mallampati Classification: Class II Surgeon: Fanta Diagnosis: sepsis, DKA Surgical Procedure: PEG insertion Anesthesia History: none Family History: no anesthesia problems Allergies: Coded Allergies: SHELLFISH DERIVED (Verified Allergy, Unknown, swelling and itchiness, 05/14) Patient NPO?: Yes NPO Date: Jun 17, 2018 NPO Time: 0000 Past Medical History Cardiovascular: Reports: HTN, CAD, arrhythmia - atrial fib, other - s/p CABG, PHTN; Denies: NC, valve dz Pulmonary: Reports: other - pneumonia, respiratory failure s/p trach, ventilator dependent; Denies: asthma, COPD, BERH[place] Gastrointestinal/Genitourinary: Reports: other - acute renal failure; Denies: GERD, CRI, ESRD Neurologic/Psychiatric: Reports: dementia - metabolic encephalopathy; Denies: CVA, depression/anxiety, TIA, other Endocrine: Reports: DM - admit for DKA; Denies: hypothyroidism, steroids, other HEENT: Denies: cataract (L), cataract (R), glaucoma, [place] (L), [place] (R), other Hematology/Immune: Reports: anemia; Denies: DVT, bleeding disorder, other Musculoskeletal/Integumentary: Denies: OA, RA, DJD, DDD, edema, other PMH Narrative: as above PSxH Narrative: CABG, tracheostomy Anesthesia Pre-op Phys. Exam Physician Exam Last Vital Signs Date Time Temp Pulse Resp B/P (MAP) Pulse Ox O2 Delivery O2 Flow Rate FiO2 06/18/18 06:34 100/62 06/18/18 06:00 77 16 100 06/18/18 04:47 40 50 06/18/18 04:00 98.4 06/18/18 04:00 Mechanical Ventilator Constitutional: NAD, other - alert, generalized edema Neurologic: other - confused Cardiovascular: RRR Respiratory: other - diffuse rhonchi Gastrointestinal: other - NG tube in situ Airway Exam Mallampati Score: Class II MO: full Neck: stiff TMD: > 3 FB ROM: full Teeth: missing Dentures: upper, lower Anesthesia Pre-op A/P Labs Hematology Test 06/17/18 14:20 White Blood Count 9.4 K/UL (4.8-10.8) Red Blood Count 2.94 M/UL (4.20-5.40) L Hemoglobin 8.3 G/DL (12.0-16.0) L Hematocrit 27.8 % (37.0-47.0) L Mean Corpuscular Volume 94 FL (80-99) Mean Corpuscular Hemoglobin 28.3 PG (27.0-31.0) Mean Corpuscular Hemoglobin Concent 30.0 G/DL (32.0-36.0) L Red Cell Distribution Width 21.0 % (11.6-14.8) H Platelet Count 235 K/UL (150-450) Mean Platelet Volume 6.8 FL (6.5-10.1) Neutrophils (%) (Auto) 75.5 % (45.0-75.0) H Lymphocytes (%) (Auto) 9.1 % (20.0-45.0) L Monocytes (%) (Auto) 6.3 % (1.0-10.0) Eosinophils (%) (Auto) 7.7 % (0.0-3.0) H Basophils (%) (Auto) 1.4 % (0.0-2.0) Coagulation Test 06/17/18 14:08 Prothrombin Time 12.2 SEC (9.30-11.50) H Prothromb Time International Ratio 1.2 (0.9-1.1) H Activated Partial Thromboplast Time 32 SEC (23-33) Studies Pre-op Studies: EKG - A-fib, possible inferolateral ischemia, CXR - (B interstitial edema, pleural infusion, echo - EF 55%, severe HTN Risk Assessment & Plan Assessment: ASA 4, ok for bedside procedure Plan: MAC Status Change Before Surgery: No Pre-Antibiotics Given Within 1 Hr of Incision: Trang Alegre CRNA Jun 18, 2018 07:09
[2018-06-18] MEDS ORDERED: NS 500ML IVPB ONE (07:12)
--- NOTE | 2018-06-18 07:18 | Pre-Procedure Note/Attestation ---
Pre-Procedure Note/Attestation Complete Prior to Procedure Planned Procedure: not applicable Procedure Narrative: EGD/PEG Indications for Procedure Pre-Operative Diagnosis: dysphagia Attestation I attest that I discussed the nature of the procedure; its benefits; risks and complications; and alternatives (and the risks and benefits of such alternatives ), prior to the procedure, with the patient (or the patient's legal development representative). I attest that, if there was a reasonable possibility of needing a blood transfusion, the patient (or the patient's legal development representative) was given the [facility] standardized written summary, pursuant to the [place] Blood Safety Act ([place] Health and Safety Code # 1645, as amended). I attest that I re-evaluated the patient just prior to the surgery and that there has been no change in the patient's H&P, except as documented below: Mary Jewell MD Jun 18, 2018 07:18
--- NOTE | 2018-06-18 07:40 | NUR ---
NURSE NOTES: PEG placement done by Dr Jewell at bedside. Pt tolerated well as per GI RN. VSS. Repositioned pt after procedure. Order for IVF and tube feeding from tomorrow AM received, noted, and carried out.
--- NOTE | 2018-06-18 07:43 | Immediate Post-Op Evaluation ---
Immediate Post-Op Evalulation Immediate Post-Op Evalulation Procedure: PEG insertion Date of Evaluation: Jun 18, 2018 Time of Evaluation: 07:34 IV Fluids: 0.9 NS 50 ml Blood Pressure Systolic: 109 Blood Pressure Diastolic: 49 Pulse Rate: 86 Respiratory Rate: 12 O2 Sat by Pulse Oximetry: 100 Temperature (Fahrenheit): 99.3 Pain Score (1-10): 0 Nausea: No Vomiting: No Patient Status: reacts, ventilated, none - trach in situ Hydration Status: adequate Drug: see elton LAL Judy CRNA Jun 18, 2018 07:43
[2018-06-18] MEDS ORDERED: D5 1/2NS 1,000 ML IV SCH ×2 (07:45→17:00)
[2018-06-18] MEDS: Enoxaparin 80mg Inj SUBQ SCH (08:14)
[2018-06-18] MEDS: Metoprolol Tartrate 50mg tab ORAL SCH ×2 (08:32→20:49)
[2018-06-18] MEDS: Aspirin Baby 81mg ORAL SCH (08:38)
--- NOTE | 2018-06-18 08:48 | NUR ---
RESPIRATORY NOTE: received pt newly trached with shiley [address] slight redness and bleeding around stoma with small amounts of secretion when sxn. pt is sedated from bedside procedure. alarms on, set and audible with ambu bag at bedside. vent is plugged into red outlet. will cont to monitor.
[2018-06-18] MEDS: Miconazole 2% Cream 30gm TOPIC SCH ×2 (09:36→18:03)
--- NOTE | 2018-06-18 09:53 | NUR ---
NURSE NOTES: Turned and repositioned pt. Oral care done. Pure wick placed to drain urine. Pt is dry and clean. No acute distress noted. Pt is waking up.
--- NOTE | 2018-06-18 10:27 | Infectious Diseases Prog Note ---
"Assessment/Plan Assessment/Plan antibiotics : zosyn A 1. klebsiella | streptococcus pneumonia s/p rx 2. herpes of lip s/p rx 3. diabetic ketoacidosis resolved 4. respiratory failure s/p tracheostomy 5. hypertension 6. leucocytosis resolved 7. renal failure P 1. d/c zosyn 2. observe off antibiotics Subjective ROS Limited/Unobtainable: Yes Allergies: Coded Allergies: SHELLFISH DERIVED (Verified Allergy, Unknown, swelling and itchiness, 05/14) Objective Vital Signs Last 24 Hour Vital Signs Date Time Temp Pulse Resp B/P (MAP) Pulse Ox O2 Delivery O2 Flow Rate FiO2 06/18/18 09:45 80 13 110/59 (76) 100 06/18/18 09:30 78 14 89/53 (65) 100 06/18/18 09:15 82 14 115/51 (72) 99 06/18/18 09:00 77 13 118/50 (72) 100 06/18/18 08:55 68 12 40 06/18/18 08:45 72 16 115/47 (69) 100 06/18/18 08:30 72 14 105/45 (65) 100 06/18/18 08:15 74 12 104/45 (64) 100 06/18/18 08:13 73 06/18/18 08:00 Mechanical Ventilator 06/18/18 08:00 78 12 107/45 (65) 100 06/18/18 08:00 50 06/18/18 07:58 79 12 40 06/18/18 07:45 99.3 82 15 98/43 (61) 100 06/18/18 07:43 86 12 100 06/18/18 07:30 87 9 98/43 (61) 100 06/18/18 07:15 75 13 118/54 (75) 100 06/18/18 07:12 79 14 125/60 (81) 100 06/18/18 07:11 76 13 123/54 (77) 100 06/18/18 07:00 73 13 120/61 (80) 100 06/18/18 06:34 100/62 06/18/18 06:00 77 16 119/69 (86) 100 06/18/18 05:00 80 22 118/52 (74) 99 06/18/18 04:47 77 13 40 50 06/18/18 04:00 98.4 77 16 117/53 (74) 06/18/18 04:00 Mechanical Ventilator 06/18/18 04:00 50 06/18/18 04:00 69 06/18/18 03:00 74 13 107/86 (93) 100 06/18/18 03:00 71 14 40 50 06/18/18 02:00 72 13 108/71 (83) 100 06/18/18 01:23 76 14 40 50 06/18/18 01:00 76 16 97/85 (89) 99 06/18/18 00:39 116/61 06/18/18 00:00 98.4 75 14 116/61 (79) 98 06/18/18 00:00 50 06/18/18 00:00 Mechanical Ventilator 06/18/18 00:00 71 06/17/18 23:00 77 16 117/71 (86) 98 06/17/18 22:37 78 14 40 50 06/17/18 22:00 78 14 118/55 (76) 100 06/17/18 21:10 70 12 40 50 06/17/18 21:00 78 14 111/50 (70) 98 06/17/18 20:49 89 120/55 06/17/18 20:00 Mechanical Ventilator 06/17/18 20:00 98.4 93 13 120/55 (76) 98 06/17/18 20:00 50 06/17/18 20:00 81 06/17/18 19:19 92 12 40 50 06/17/18 19:00 96 13 132/57 (82) 99 06/17/18 18:44 83 12 100 06/17/18 18:25 124/55 06/17/18 18:25 83 124/55 06/17/18 18:00 98.1 83 21 124/55 (78) 100 06/17/18 17:42 84 12 50 06/17/18 17:41 95 12 100 06/17/18 17:00 77 18 128/62 (84) 98 06/17/18 16:00 80 06/17/18 16:00 40 06/17/18 16:00 Bi-pap 06/17/18 15:16 94 19 97 Full Face 40 06/17/18 15:00 76 18 132/69 (90) 96 06/17/18 14:00 84 17 132/69 (90) 99 06/17/18 13:00 98.9 74 19 131/78 (95) 100 06/17/18 12:40 77 22 100 Full Face 40 06/17/18 12:00 Bi-pap 06/17/18 12:00 40 06/17/18 12:00 67 15 141/101 (114) 100 06/17/18 12:00 64 06/17/18 11:00 68 17 137/69 (91) 100 06/17/18 10:30 74 18 100 Full Face 40 Height (Feet): 5 Height (Inches): 2.00 Weight (Pounds): 166 HEENT: status post trach Respiratory/Chest: lungs clear Cardiovascular: normal rate, regular rhythm, no gallop/murmur Abdomen: soft, non tender, other - Gt Extremities: other - + edema Laboratory Tests Test 06/17/18 14:08 06/17/18 14:20 Prothrombin Time 12.2 SEC (9.30-11.50) H Prothromb Time International Ratio 1.2 (0.9-1.1) H Activated Partial Thromboplast Time 32 SEC (23-33) White Blood Count 9.4 K/UL (4.8-10.8) Red Blood Count 2.94 M/UL (4.20-5.40) L Hemoglobin 8.3 G/DL (12.0-16.0) L Hematocrit 27.8 % (37.0-47.0) L Mean Corpuscular Volume 94 FL (80-99) Mean Corpuscular Hemoglobin 28.3 PG (27.0-31.0) Mean Corpuscular Hemoglobin Concent 30.0 G/DL (32.0-36.0) L Red Cell Distribution Width 21.0 % (11.6-14.8) H Platelet Count 235 K/UL (150-450) Mean Platelet Volume 6.8 FL (6.5-10.1) Neutrophils (%) (Auto) 75.5 % (45.0-75.0) H Lymphocytes (%) (Auto) 9.1 % (20.0-45.0) L Monocytes (%) (Auto) 6.3 % (1.0-10.0) Eosinophils (%) (Auto) 7.7 % (0.0-3.0) H Basophils (%) (Auto) 1.4 % (0.0-2.0) Current Medications Medications (Trade) Dose Ordered Sig/Ellen Route PRN Reason Start Time Stop Time Status Last Admin Dose Admin Acetaminophen (Tylenol) 650 mg Q4H PRN ORAL Mild Pain/Temp > 100.5 06/08/18 15:00 07/02/18 14:59 Al Hydroxide/Mg Hydroxide (Mylanta) 30 ml Q6H PRN ORAL Abdominal cramps 06/08/18 15:00 07/02/18 14:59 Amlodipine Besylate (Norvasc) 5 mg BID ORAL 06/08/18 18:00 06/28/18 08:59 06/17/18 18:25 Aspirin (ASA) 81 mg DAILY ORAL 06/09/18 09:00 06/24/18 08:59 06/16/18 09:05 Chlorhexidine Gluconate (Leora-Hex 2%) 1 applic DAILY@2000 TOPIC 06/08/18 20:00 06/24/18 19:59 06/17/18 20:48 Dextrose/Sodium Chloride 1,000 ml @ 75 mls/hr [id number] IV 06/18/18 07:45 07/18/18 07:44 06/18/18 08:37 Enoxaparin Sodium (Lovenox) 80 mg Q24H SUBQ 06/09/18 09:00 07/03/18 08:59 06/16/18 09:07 Haloperidol Lactate (Haldol) 5 mg Q6H PRN IM Agitation 06/08/18 15:00 07/02/18 14:59 Hydralazine HCl (Apresoline) 25 mg Q6HR ORAL 06/08/18 18:00 07/02/18 00:00 06/18/18 00:39 Insulin Aspart (NovoLOG) Q6HR SUBQ 06/16/18 18:00 07/08/18 16:29 06/18/18 00:40 Lansoprazole (Prevacid) 30 mg DAILY GT 06/11/18 09:00 07/11/18 08:59 06/18/18 08:37 Magnesium Hydroxide (Mom) 30 ml DAILYPRN PRN ORAL Constipation 06/08/18 15:00 07/02/18 14:59 Metoprolol Tartrate (Lopressor) 5 mg Q2H PRN IVP For High Blood Pressure 06/08/18 15:00 06/23/18 16:59 Metoprolol Tartrate (Lopressor) 50 mg Q12HR ORAL 06/08/18 21:00 06/26/18 20:59 06/17/18 20:49 Miconazole Nitrate (Miconazole Nitrate) 1 applic BID TOPIC 06/09/18 18:30 07/09/18 18:29 06/18/18 09:36 Olanzapine (ZyPREXA) 2.5 mg BEDTIME ORAL 06/08/18 21:00 07/01/18 20:59 06/17/18 20:49 Piperacillin Sod/ Tazobactam Sod 3.375 gm/Dextrose 110 ml @ 27.5 mls/hr Q8HR IVPB 06/09/18 14:00 06/20/18 13:59 06/18/18 06:35 Khadra Melendez MD Jun 18, 2018 10:27"
--- NOTE | 2018-06-18 11:26 | NUR ---
RD ASSESSMENT & RECOMMENDATIONS SEE CARE ACTIVITY FOR COMPLETE ASSESSMENT DAILY ESTIMATED NEEDS: Needs based on DM, cardiac, critical care/ 54kg abw 22-28 kcals/kg 8671-8214 total kcals 1.2-2 g protein/kg 65-108 g total protein 25-30 mL/kg 4015-1854 total fluid mLs NUTRITION DIAGNOSIS: 1) Altered nutrition related lab values R/T diabetes, clinical condition as evidenced by A1C 11.4, increased from 8.1 in August 2017, DKA w/ adm LG=843-> 230 209 improved, elev BNP (2846), elev creat (1.9), elev LFTs, trending back down, elev lipase (>2000 -> 554 trend down). 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 * At goal meets 100% est kcal and prot needs * HOB over 30 degrees/ water flush per MD ADDITIONAL RECOMMENDATIONS: 1) RE-calibrated bed wt for accurate CBW 2) TF recs as above as medically appropriate 3) Consider long acting insulin for improved BG control 4) Monitor lytes closely, replete as needed rec to check f/up phos and mag . .
--- NOTE | 2018-06-18 11:46 | General Progress Note ---
Progress Note Progress Note trach site clean and dry dressings in place doing well on vent wean vent as tolerated dressings Walter Navarro Jun 18, 2018 11:46
--- NOTE | 2018-06-18 12:14 | NUR ---
NURSE NOTES: Turned and repositioned pt. Pt is still on restraints. VSS. No complications seen after PEG placement. Will continue to monitor.
--- NOTE | 2018-06-18 13:12 | NUR ---
RN [employer] [employer] SI: RESP FAILURE S/P TRACH/VENT DEPENDENT AC 12 TV 500 FIO2 35% T. 98.6 HR 74 RR 8 B/P 101/47 H/H 8.3/27.8 NA 147 BUN 27 CR 1.7 IS; IVF D5NS @ 75ML/HR LOVENOX SUBC ZYPREXA ICU STATUS
--- NOTE | 2018-06-18 14:00 | NUR ---
NURSE NOTES: Cleaned pt for small loose brown BM and small amount of urine and repositioned pt. No acute distress noted. VSS. Will continue to monitor.
--- NOTE | 2018-06-18 14:27 | 48 Hour Post Anesthesia Eval ---
Post Anesthesia Evaluation Procedure: PEG insertion Date of Evaluation: Jun 18, 2018 Time of Evaluation: 14:26 Blood Pressure Systolic: 115 0: 53 Pulse Rate: 83 Respiratory Rate: 18 Temperature (Fahrenheit): 98.6 O2 Sat by Pulse Oximetry: 100 Airway: patent, other - trach in situ, vent dependent Nausea: No Vomiting: No Pain Intensity: 0 Hydration Status: adequate Cardiopulmonary Status: stable Mental Status/LOC: patient returned to baseline Follow-up Care/Observations: per beer still runner compounder Post-Anesthesia Complications: none Follow-up care needed: N/A Trang Youssef CRNA Jun 18, 2018 14:27
[2018-06-18] MEDS ORDERED: D5 1/2NS 1000ml IV ONE (16:40)
[2018-06-18] MEDS ORDERED: Tubing IV Secondary IV ONE (16:40)
--- NOTE | 2018-06-18 16:40 | NUR ---
NURSE NOTES: Dr Landry here to see the patient. Updated him with pt's current condition. Orders for weaning trial, cardiac chair, and IVF received, noted, and carried out. Daughter at bedside, speaking with the doctor.
[2018-06-18] MEDS ORDERED: 1/2 NS 1000ml IV ONE (17:08)
[2018-06-18] MEDS ORDERED: NS 275ml ONE (17:08)
--- NOTE | 2018-06-18 19:12 | NUR ---
HAND-OFF: Report given to WAYNE Christian.
--- NOTE | 2018-06-18 19:20 | Pulmonolgy Critical Care Note ---
Critical Care - Asmt/Plan Assessment/Plan: Pulmonary CCM Progress Note Assessment/Plan Impression Diabetic ketoacidosis Anemia Transaminitis of unclear etiology Severe protein calorie malnutrition Evidence of pancreatitis, better Acute renal failure, improved Hyperglycemia Diabetes Hyponatremia Metabolic acidosis Hypercholesterolemia fever oral ulcers afib with RVR leukopenia pancreatitis CVA pleural effusions Respiratory failure sp Tracheostomy and PEG S/p GT - feeds being started on antibiotics with + cultures; per ID on AC - wean as Tolerated care noted; will need rehab with current status still very weak and will need snf follow Labs impression, plan, and exam edited and reviewed in detail care discussed with RN Subjective Allergies: Coded Allergies: SHELLFISH DERIVED (Verified Allergy, Unknown, swelling and itchiness, 05/14) Subjective care noted not eating well NAD less lethargic Objective Vital Signs Noted Laboratory Tests 06/10/18 04:30: Stool Occult Blood Negative 06/10/18 05:20: White Blood Count 12.8H, Red Blood Count 3.19L, Hemoglobin 9.1L, Hematocrit 28.5L, Mean Corpuscular Volume 89, Mean Corpuscular Hemoglobin 28.5, Mean Corpuscular Hemoglobin Concent 31.9L, Red Cell Distribution Width 21.5H, Platelet Count 305, Mean Platelet Volume 7.0, Neutrophils (%) (Auto) , Lymphocytes (%) (Auto) , Monocytes (%) (Auto) , Eosinophils (%) (Auto) , Basophils (%) (Auto) , Differential Total Cells Counted 100, Neutrophils % ( Manual) 91H, Lymphocytes % (Manual) 2L, Monocytes % (Manual) 6, Eosinophils % ( Manual) 1, Basophils % (Manual) 0, Band Neutrophils 0, Platelet Estimate Adequate, Platelet Morphology Normal, Polychromasia 1+, Hypochromasia 1+, Anisocytosis 2+, Sodium Level 149H, Potassium Level 4.0, Chloride Level 111H, Carbon Dioxide Level 25, Anion Gap 13, Blood Urea Nitrogen 31H, Creatinine 1.9H , Estimat Glomerular Filtration Rate 26.1, Glucose Level 209H, Calcium Level 8.3L 06/10/18 07:37: Arterial Blood pH 7.471H, Arterial Blood Partial Pressure CO2 28.8L, Arterial Blood Partial Pressure O2 53.5L, Arterial Blood HCO3 20.5L, Arterial Blood Oxygen Saturation 88.1*L, Arterial Blood Base Excess -2.4L, Marlon Test Positive Height (Feet): 4 Height (Inches): 10.00 Weight (Pounds): 174 Objective WDWN Trach CDI Awake/interactive clear breath sounds bilaterally without rhonchi or wheeze S1S2 RRR without MRG NABS nontender no HSM no CCE remains weak Critical Care - Objective Last 24 Hour Vital Signs Date Time Temp Pulse Resp B/P (MAP) Pulse Ox O2 Delivery O2 Flow Rate FiO2 06/18/18 19:00 89 16 128/71 (90) 99 06/18/18 18:00 84 18 111/54 (73) 99 06/18/18 17:00 92 9 126/52 (76) 98 06/18/18 16:52 97 19 30 06/18/18 16:30 98.6 84 14 124/64 (84) 99 06/18/18 16:00 87 16 122/47 (72) 98 06/18/18 16:00 Mechanical Ventilator 06/18/18 15:52 80 06/18/18 15:08 81 14 30 06/18/18 15:00 85 14 114/44 (67) 98 06/18/18 14:27 83 18 100 06/18/18 14:00 83 18 115/53 (73) 100 06/18/18 13:00 78 10 117/55 (75) 100 06/18/18 13:00 35 06/18/18 12:53 77 16 35 06/18/18 12:30 80 15 113/49 (70) 100 06/18/18 12:04 78 06/18/18 12:00 40 06/18/18 12:00 Mechanical Ventilator 06/18/18 12:00 98.6 74 8 107/47 (67) 100 06/18/18 11:30 79 13 107/42 (63) 100 06/18/18 11:00 82 17 113/50 (71) 100 06/18/18 10:39 89 19 40 06/18/18 10:30 79 15 104/43 (63) 100 06/18/18 10:00 82 18 114/45 (68) 100 06/18/18 09:45 80 13 110/59 (76) 100 06/18/18 09:30 78 14 89/53 (65) 100 06/18/18 09:15 82 14 115/51 (72) 99 06/18/18 09:00 77 13 118/50 (72) 100 06/18/18 08:55 68 12 40 06/18/18 08:45 72 16 115/47 (69) 100 06/18/18 08:30 72 14 105/45 (65) 100 06/18/18 08:15 74 12 104/45 (64) 100 06/18/18 08:13 73 06/18/18 08:00 Mechanical Ventilator 06/18/18 08:00 78 12 107/45 (65) 100 06/18/18 08:00 50 06/18/18 07:58 79 12 40 06/18/18 07:45 99.3 82 15 98/43 (61) 100 06/18/18 07:43 86 12 100 06/18/18 07:30 87 9 98/43 (61) 100 06/18/18 07:15 75 13 118/54 (75) 100 06/18/18 07:12 79 14 125/60 (81) 100 06/18/18 07:11 76 13 123/54 (77) 100 06/18/18 07:00 73 13 120/61 (80) 100 06/18/18 06:34 100/62 06/18/18 06:00 77 16 119/69 (86) 100 06/18/18 05:00 80 22 118/52 (74) 99 06/18/18 04:47 77 13 40 50 06/18/18 04:00 98.4 77 16 117/53 (74) 06/18/18 04:00 Mechanical Ventilator 06/18/18 04:00 50 06/18/18 04:00 69 06/18/18 03:00 74 13 107/86 (93) 100 06/18/18 03:00 71 14 40 50 06/18/18 02:00 72 13 108/71 (83) 100 06/18/18 01:23 76 14 40 50 06/18/18 01:00 76 16 97/85 (89) 99 06/18/18 00:39 116/61 06/18/18 00:00 98.4 75 14 116/61 (79) 98 06/18/18 00:00 50 06/18/18 00:00 Mechanical Ventilator 06/18/18 00:00 71 06/17/18 23:00 77 16 117/71 (86) 98 06/17/18 22:37 78 14 40 50 06/17/18 22:00 78 14 118/55 (76) 100 06/17/18 21:10 70 12 40 50 06/17/18 21:00 78 14 111/50 (70) 98 06/17/18 20:49 89 120/55 06/17/18 20:00 Mechanical Ventilator 06/17/18 20:00 98.4 93 13 120/55 (76) 98 06/17/18 20:00 50 06/17/18 20:00 81 06/17/18 19:19 92 12 40 50 Accucheck: 198 Critical Care - Subjective ROS Limited/Unobtainable: No FI02: 30 Vent Support Breath Rate: 12 Vent Support Mode: AC Vent Tidal Volume: 500 Sputum Amount: Scant PEEP: 0.0 PIP: 25 Tube Feeding Amount: 45 I&O: Intake and Output 06/17/18 06/18/18 19:00 07:00 Intake Total 137.5 ml 417.5 ml Output Total 500 ml Balance -362.5 ml 417.5 ml Free Water 100 ml IV Total 137.5 ml 137.5 ml Tube Feeding 180 ml Output Urine Total 500 ml # Voids 3 # Bowel Movements 5 Gulshan Landry MD Jun 18, 2018 19:20
--- NOTE | 2018-06-18 19:23 | NUR ---
RESPIRATORY NOTE: Received pt. on 840 vent. Vent settings are: A/C rate of 12, Vt 500, FI02 30%. No respiratory distress noted, pt. Sp02 @ 99%. Ambu bag @ BS. Vent plugged on red outlet. Will continue to monitor pt.
--- NOTE | 2018-06-18 20:00 | NUR ---
NURSE NOTES: Patient received from Charly BLACK. Patient is s/p PEG today in AM, s/p trach 06/17. Patient is alert and oriented X3-4. Patient does have dressing binder on abdominal area. Shiley 8, AC 12, 500, 30%, 0 PEEP. Patient is running d51/2NS at 50ml/hr, via OMAR PICC line. Patient is on p200 mattress, Allergies noted. Patient repositioned upon assessment. NAD at this time, oral suction and hygiene provided, bed in its lowest position. Will continue to monitor.
[2018-06-18] MEDS: Dyna-Hex 2% Top Sol 2oz TOPIC SCH (20:49)
[2018-06-18] MEDS: OLANZapine 2.5mg tab ORAL SCH (20:49)
--- NOTE | 2018-06-18 22:00 | NUR ---
NURSE NOTES: Patient repositioned and provided oral hygiene gratification, patient remains normotensive, with low grade fevers. temperature noted to be 99.5F
--- NOTE | 2018-06-18 22:11 | General Progress Note ---
Assessment/Plan Assessment/Plan Assessment - Respiratory failure - Acute pancreatitis - Anemia - Leukocytosis - dysphagia - Azotemia - Urolithiasis - UTI - Cholelithiasis - DM - CAD/CABG - Gout Recommendations - vent care - Tube feeds - follow labs and exam - PEG Subjective Allergies: Coded Allergies: SHELLFISH DERIVED (Verified Allergy, Unknown, swelling and itchiness, 05/14) Subjective above noted s/p trach yesterday for PEG today Objective Last 24 Hour Vital Signs Date Time Temp Pulse Resp B/P (MAP) Pulse Ox O2 Delivery O2 Flow Rate FiO2 06/18/18 21:19 82 15 30 06/18/18 21:00 91 14 122/66 (84) 97 06/18/18 20:49 90 128/71 06/18/18 20:00 35 06/18/18 20:00 Mechanical Ventilator 06/18/18 20:00 99.2 84 20 111/42 (65) 99 06/18/18 20:00 90 06/18/18 19:22 90 15 30 06/18/18 19:00 89 16 128/71 (90) 99 06/18/18 18:00 84 18 111/54 (73) 99 06/18/18 17:00 92 9 126/52 (76) 98 06/18/18 16:52 97 19 30 06/18/18 16:30 98.6 84 14 124/64 (84) 99 06/18/18 16:00 87 16 122/47 (72) 98 06/18/18 16:00 Mechanical Ventilator 06/18/18 15:52 80 06/18/18 15:08 81 14 30 06/18/18 15:00 85 14 114/44 (67) 98 06/18/18 14:27 83 18 100 06/18/18 14:00 83 18 115/53 (73) 100 06/18/18 13:00 78 10 117/55 (75) 100 06/18/18 13:00 35 06/18/18 12:53 77 16 35 06/18/18 12:30 80 15 113/49 (70) 100 06/18/18 12:04 78 06/18/18 12:00 40 06/18/18 12:00 Mechanical Ventilator 06/18/18 12:00 98.6 74 8 107/47 (67) 100 06/18/18 11:30 79 13 107/42 (63) 100 06/18/18 11:00 82 17 113/50 (71) 100 06/18/18 10:39 89 19 40 06/18/18 10:30 79 15 104/43 (63) 100 06/18/18 10:00 82 18 114/45 (68) 100 06/18/18 09:45 80 13 110/59 (76) 100 06/18/18 09:30 78 14 89/53 (65) 100 06/18/18 09:15 82 14 115/51 (72) 99 06/18/18 09:00 77 13 118/50 (72) 100 06/18/18 08:55 68 12 40 06/18/18 08:45 72 16 115/47 (69) 100 06/18/18 08:30 72 14 105/45 (65) 100 06/18/18 08:15 74 12 104/45 (64) 100 06/18/18 08:13 73 06/18/18 08:00 Mechanical Ventilator 06/18/18 08:00 78 12 107/45 (65) 100 06/18/18 08:00 50 06/18/18 07:58 79 12 40 06/18/18 07:45 99.3 82 15 98/43 (61) 100 06/18/18 07:43 86 12 100 06/18/18 07:30 87 9 98/43 (61) 100 06/18/18 07:15 75 13 118/54 (75) 100 06/18/18 07:12 79 14 125/60 (81) 100 06/18/18 07:11 76 13 123/54 (77) 100 06/18/18 07:00 73 13 120/61 (80) 100 06/18/18 06:34 100/62 06/18/18 06:00 77 16 119/69 (86) 100 06/18/18 05:00 80 22 118/52 (74) 99 06/18/18 04:47 77 13 40 50 06/18/18 04:00 98.4 77 16 117/53 (74) 06/18/18 04:00 Mechanical Ventilator 06/18/18 04:00 50 06/18/18 04:00 69 06/18/18 03:00 74 13 107/86 (93) 100 06/18/18 03:00 71 14 40 50 06/18/18 02:00 72 13 108/71 (83) 100 06/18/18 01:23 76 14 40 50 06/18/18 01:00 76 16 97/85 (89) 99 06/18/18 00:39 116/61 06/18/18 00:00 98.4 75 14 116/61 (79) 98 06/18/18 00:00 50 06/18/18 00:00 Mechanical Ventilator 06/18/18 00:00 71 06/17/18 23:00 77 16 117/71 (86) 98 06/17/18 22:37 78 14 40 50 Intake and Output 06/17/18 06/18/18 19:00 07:00 Intake Total 137.5 ml 417.5 ml Output Total 500 ml Balance -362.5 ml 417.5 ml Free Water 100 ml IV Total 137.5 ml 137.5 ml Tube Feeding 180 ml Output Urine Total 500 ml # Voids 3 # Bowel Movements 5 Height (Feet): 5 Height (Inches): 2.00 Weight (Pounds): 166 Objective WDWN NCAT,(+) BIPAP Neck supple Coarse BS RRR abd soft, ND restrained, confused Mary Jewell MD Jun 18, 2018 22:11
--- NOTE | 2018-06-18 22:12 | Endoscopy Procedure Note ---
Endoscopy Procedure Note General Indication for Procedure: dysphagia Procedures Performed: PEG Operative Findings/Diagnosis: PEG placed Specimen: none Pt Tolerated Procedure Well: Yes Estimated Blood Loss: minimal Anesthesia Anesthesiologist: see notes Anesthesia: MAC Medications Medication Given: see anesthesia record Inserted Devices Implant(s) used?: No GI Core Measures 50 yrs or older w/o bx or poly: Not Applicable 10yrs. F/U not recommended: Not Applicable If not recommended, why?: Mary Jewell MD Jun 18, 2018 22:12
--- NOTE | 2018-06-18 22:15 | Brief Operative Note ---
Immediate Post Operative Note Operative Note Chief Complaint: dysphagia Pre-op Diagnosis: dysphagia Procedure: EGD/PEG Post-op Diagnosis: same Surgeon: ji Anesthesiologist: see report Anesthesia: MAC Specimen: none Complications: none Condition: stable Fluids: recorded Estimated Blood Loss: minimal Drains: none Implant(s) used?: No Mary Jewell MD Jun 18, 2018 22:15
--- NOTE | 2018-06-18 23:05 | General Progress Note ---
Assessment/Plan Assessment/Plan Assessment and Recs # Pancytopenia -- appears that initial hep and hiv are negative though final results to follow, liver shows no major hsm or cirrhosis, may consider meds or bone marrow process, smear reviewed, does have low albumin, has been hospitalized for some time, in and out since 04/30/18. Hiv and hepatitis panels are both negative --> query meds, review with ID, is on micafungin now, monitor counts closely --> given hgb downtrending and some nucleated reds on smear, will send off a flow cytometry --> nepogen 300mcg sq to maintain anc >1500 --> wbc trend : 1.7-->4.3-->3.1-->3.4-->7.7-->8.1--12-->15-->11-->14.6-->9 # Anemia of chronic disease - monitor anemia panel --> hemolysis does not appear to be the case --> anemia panel reviewed and c/w acd --> hgb trend: 8.3-->9.2-->8.9-->8.7-->9-->7.7-->7--->8 # Paroxysmal atrial fibrillation, due to CHADS-VASC score of 5, we require to keep anticoagulated, on metoprolol --> continue on apixaban # Hx of CAD, s/p CABG, ASA , atorvastatin and metoprolol. No wall motion abnormalities on Echo. LVEF ~55%. --> appreciate cards recs # Sinus tachycardia due to hypovolemia, resolved. # DKA, resolved. --> continue monitor # DM, non-compliant with medications. # Hx of HTN, controlled with metoprolol. # pancreatitis -- appreciate gi recs # increased LFT The timing of this note does not necessarily reflect the time of the patient was seen. Greatly appreciate consultation! Subjective Constitutional: Denies: no symptoms, chills, diaphoresis, fever, malaise, weakness, other HEENT: Denies: no symptoms, eye pain, blurred vision, tearing, double vision, ear pain, ear discharge, nose pain, nose congestion, throat pain, throat swelling, mouth pain, mouth swelling, other Cardiovascular: Denies: no symptoms, chest pain, edema, irregular heart rate, lightheadedness, palpitations, syncope, other Respiratory: Denies: no symptoms, cough, orthopnea, shortness of breath, SOB with excertion, SOB at rest, sputum, stridor, wheezing, other Gastrointestinal/Abdominal: Denies: no symptoms, abdomen distended, abdominal pain, black stools, tarry stools, blood in stool, constipated, diarrhea, difficulty swallowing, nausea, poor appetite, poor fluid intake, rectal bleeding , vomiting, other Genitourinary: Denies: no symptoms, burning, discharge, frequency, flank pain, hematuria, incontinence, pain, urgency, other Neurologic/Psychiatric: Denies: no symptoms, anxiety, depressed, emotional problems, headache, numbness, paresthesia, pre-existing deficit, seizure, tingling, tremors, weakness, other Endocrine: Denies: no symptoms, excessive sweating, flushing, intolerance to cold, intolerance to heat, increased hunger, increased thirst, increased urine, unexplained weight gain, unexplained weight loss, other Hematologic/Lymphatic: Denies: no symptoms, anemia, easy bleeding, easy bruising, other Allergies: Coded Allergies: SHELLFISH DERIVED (Verified Allergy, Unknown, swelling and itchiness, 05/14) Subjective 05/18: Pt is awake and comfortable, no events, leukopenia improved, wbc 4.3, plt 151 05/19: seen by bedside, awake, comfortable, plt 122 05/20: Pt is awake and comfortable, no events 05/21: Pt is seen in the room, resting in bed, no fevers or chills, wbc 8.7, plt 117 05/23: Pt is resting in bed, awake, comfortable, no fevers or chills, no acute distress. 05/24: EGD and EUS done today, has no gallbladder stones, only pancreatitis, no events 05/25: no events, dermatitis has improved, off loading of heels, pancreatitis and dka better 05/26: Pt is awake, comfortable, no acute events overnight, hgb 8.6 05/27: seen by bedside, awake, comfortable, no events 05/28: resting in bed, awake, comfortable, no fevers or chills, no acute distress , No need for ERCP per GI, 05/31: Pt is awake and comfortable, no events 06/01: awake, comfortable, denies acute distress. 06/02: seen by bedside, awake, comfortable, no acute distress. wbc 15. 2: no acute events, denies any abdominal pain, wbc trending down at 11 today. 06/04: awake/drowsy in bed, breathing easily on nasal cannula, denies SOB and pain at this time. 06/06: anemia cotninues to worsen, may consider a bone marrow biopsy if patient approves 06/07: hgb 9.7, not eating well, remains lethargic 06/08: hgb is stable, respiratory status is worsened, and thus was transferred to the icu 06/09: seen by bedside,awake, comfortable, plan to insert NGT samanta 06/10: not eating well, remains lethargic 06/11: poor po intake but currently on BIPAP and not stable for PEG placement, NGTF on hold per pulm 06/13:Seen by bedside, less confused, on BIPAP, no events 06/14: seen by bedside, on BIPAP, NJT feeds, no events 06/15: On BIPAP, Less confused, NJT feeds started, no events 06/16: awake, comfortable, NJT in place, more alert, on BIPAP, agreed to trach 06/17: Trach done today, PEG scheduled for am, no acute distress 06/18: PEG placement done by Dr Jewell, tolerated well , tube feeding from tomorrow AM , no events, hgb 8.3 Objective Last 24 Hour Vital Signs Date Time Temp Pulse Resp B/P (MAP) Pulse Ox O2 Delivery O2 Flow Rate FiO2 06/18/18 21:19 82 15 30 06/18/18 21:00 91 14 122/66 (84) 97 06/18/18 20:49 90 128/71 06/18/18 20:00 35 06/18/18 20:00 Mechanical Ventilator 06/18/18 20:00 99.2 84 20 111/42 (65) 99 06/18/18 20:00 90 06/18/18 19:22 90 15 30 06/18/18 19:00 89 16 128/71 (90) 99 06/18/18 18:00 84 18 111/54 (73) 99 06/18/18 17:00 92 9 126/52 (76) 98 06/18/18 16:52 97 19 30 06/18/18 16:30 98.6 84 14 124/64 (84) 99 06/18/18 16:00 87 16 122/47 (72) 98 06/18/18 16:00 Mechanical Ventilator 06/18/18 15:52 80 06/18/18 15:08 81 14 30 06/18/18 15:00 85 14 114/44 (67) 98 06/18/18 14:27 83 18 100 06/18/18 14:00 83 18 115/53 (73) 100 06/18/18 13:00 78 10 117/55 (75) 100 06/18/18 13:00 35 06/18/18 12:53 77 16 35 06/18/18 12:30 80 15 113/49 (70) 100 06/18/18 12:04 78 06/18/18 12:00 40 06/18/18 12:00 Mechanical Ventilator 06/18/18 12:00 98.6 74 8 107/47 (67) 100 06/18/18 11:30 79 13 107/42 (63) 100 06/18/18 11:00 82 17 113/50 (71) 100 06/18/18 10:39 89 19 40 06/18/18 10:30 79 15 104/43 (63) 100 06/18/18 10:00 82 18 114/45 (68) 100 06/18/18 09:45 80 13 110/59 (76) 100 06/18/18 09:30 78 14 89/53 (65) 100 06/18/18 09:15 82 14 115/51 (72) 99 06/18/18 09:00 77 13 118/50 (72) 100 06/18/18 08:55 68 12 40 06/18/18 08:45 72 16 115/47 (69) 100 06/18/18 08:30 72 14 105/45 (65) 100 06/18/18 08:15 74 12 104/45 (64) 100 06/18/18 08:13 73 06/18/18 08:00 Mechanical Ventilator 06/18/18 08:00 78 12 107/45 (65) 100 06/18/18 08:00 50 06/18/18 07:58 79 12 40 06/18/18 07:45 99.3 82 15 98/43 (61) 100 06/18/18 07:43 86 12 100 06/18/18 07:30 87 9 98/43 (61) 100 06/18/18 07:15 75 13 118/54 (75) 100 06/18/18 07:12 79 14 125/60 (81) 100 06/18/18 07:11 76 13 123/54 (77) 100 06/18/18 07:00 73 13 120/61 (80) 100 06/18/18 06:34 100/62 06/18/18 06:00 77 16 119/69 (86) 100 06/18/18 05:00 80 22 118/52 (74) 99 06/18/18 04:47 77 13 40 50 06/18/18 04:00 98.4 77 16 117/53 (74) 06/18/18 04:00 Mechanical Ventilator 06/18/18 04:00 50 06/18/18 04:00 69 06/18/18 03:00 74 13 107/86 (93) 100 06/18/18 03:00 71 14 40 50 06/18/18 02:00 72 13 108/71 (83) 100 06/18/18 01:23 76 14 40 50 06/18/18 01:00 76 16 97/85 (89) 99 06/18/18 00:39 116/61 06/18/18 00:00 98.4 75 14 116/61 (79) 98 06/18/18 00:00 50 06/18/18 00:00 Mechanical Ventilator 06/18/18 00:00 71 Intake and Output 06/17/18 06/18/18 19:00 07:00 Intake Total 137.5 ml 417.5 ml Output Total 500 ml Balance -362.5 ml 417.5 ml Free Water 100 ml IV Total 137.5 ml 137.5 ml Tube Feeding 180 ml Output Urine Total 500 ml # Voids 3 # Bowel Movements 5 Height (Feet): 5 Height (Inches): 2.00 Weight (Pounds): 166 Objective PHYSICAL EXAMINATION: GENERAL: Pleasant [place] woman, tired HEENT: Normocephalic and atraumatic. Sclerae anicteric. Oropharynx clear. NECK: Supple Trach++ CHEST: bilateral crackles and ++ nc CARDIOVASCULAR: Revealed regular rate. ABDOMEN: Soft. Good bowel sounds. PEG++ EXTREMITIES: Revealed no edema. Armando Bowen MD Jun 18, 2018 23:05
--- NOTE | 2018-06-18 23:58 | Cardiology Progress Note ---
Assessment/Plan Assessment/Plan 1. Paroxysmal atrial fibrillation, in sinus rhythm now, due to CHADS-VASC score of 5, continue enoxaparin and metoprolol. 2. Hx of CAD, s/p CABG, ASA , atorvastatin and metoprolol. No wall motion abnormalities on Echo, LVEF ~55%. 3. Sinus tachycardia, resolved, likely due to hypovolemia. 4. DKA, resolved. 5. DM 6. HTN, well controlled, continue amlodipine, metoprolol and hydralazine. 7. Severe pulmonary HTN. 8. CKD Subjective Subjective Sinus rhythm at rate of 82. On full face mask oxygen, FiO2 30%. Objective Last 24 Hour Vital Signs Date Time Temp Pulse Resp B/P (MAP) Pulse Ox O2 Delivery O2 Flow Rate FiO2 06/18/18 23:12 87 16 30 06/18/18 21:19 82 15 30 06/18/18 21:00 91 14 122/66 (84) 97 06/18/18 20:49 90 128/71 06/18/18 20:00 35 06/18/18 20:00 Mechanical Ventilator 06/18/18 20:00 99.2 84 20 111/42 (65) 99 06/18/18 20:00 90 06/18/18 19:22 90 15 30 06/18/18 19:00 89 16 128/71 (90) 99 06/18/18 18:00 84 18 111/54 (73) 99 06/18/18 17:00 92 9 126/52 (76) 98 06/18/18 16:52 97 19 30 06/18/18 16:30 98.6 84 14 124/64 (84) 99 06/18/18 16:00 87 16 122/47 (72) 98 06/18/18 16:00 Mechanical Ventilator 06/18/18 15:52 80 06/18/18 15:08 81 14 30 06/18/18 15:00 85 14 114/44 (67) 98 06/18/18 14:27 83 18 100 06/18/18 14:00 83 18 115/53 (73) 100 06/18/18 13:00 78 10 117/55 (75) 100 06/18/18 13:00 35 06/18/18 12:53 77 16 35 06/18/18 12:30 80 15 113/49 (70) 100 06/18/18 12:04 78 06/18/18 12:00 40 06/18/18 12:00 Mechanical Ventilator 06/18/18 12:00 98.6 74 8 107/47 (67) 100 06/18/18 11:30 79 13 107/42 (63) 100 06/18/18 11:00 82 17 113/50 (71) 100 06/18/18 10:39 89 19 40 06/18/18 10:30 79 15 104/43 (63) 100 06/18/18 10:00 82 18 114/45 (68) 100 06/18/18 09:45 80 13 110/59 (76) 100 06/18/18 09:30 78 14 89/53 (65) 100 06/18/18 09:15 82 14 115/51 (72) 99 06/18/18 09:00 77 13 118/50 (72) 100 06/18/18 08:55 68 12 40 06/18/18 08:45 72 16 115/47 (69) 100 06/18/18 08:30 72 14 105/45 (65) 100 06/18/18 08:15 74 12 104/45 (64) 100 06/18/18 08:13 73 06/18/18 08:00 Mechanical Ventilator 06/18/18 08:00 78 12 107/45 (65) 100 06/18/18 08:00 50 06/18/18 07:58 79 12 40 06/18/18 07:45 99.3 82 15 98/43 (61) 100 06/18/18 07:43 86 12 100 06/18/18 07:30 87 9 98/43 (61) 100 06/18/18 07:15 75 13 118/54 (75) 100 06/18/18 07:12 79 14 125/60 (81) 100 06/18/18 07:11 76 13 123/54 (77) 100 06/18/18 07:00 73 13 120/61 (80) 100 06/18/18 06:34 100/62 06/18/18 06:00 77 16 119/69 (86) 100 06/18/18 05:00 80 22 118/52 (74) 99 06/18/18 04:47 77 13 40 50 06/18/18 04:00 98.4 77 16 117/53 (74) 06/18/18 04:00 Mechanical Ventilator 06/18/18 04:00 50 06/18/18 04:00 69 06/18/18 03:00 74 13 107/86 (93) 100 06/18/18 03:00 71 14 40 50 06/18/18 02:00 72 13 108/71 (83) 100 06/18/18 01:23 76 14 40 50 06/18/18 01:00 76 16 97/85 (89) 99 06/18/18 00:39 116/61 06/18/18 00:00 98.4 75 14 116/61 (79) 98 06/18/18 00:00 50 06/18/18 00:00 Mechanical Ventilator 06/18/18 00:00 71 Intake and Output 06/17/18 06/18/18 19:00 07:00 Intake Total 137.5 ml 417.5 ml Output Total 500 ml Balance -362.5 ml 417.5 ml Free Water 100 ml IV Total 137.5 ml 137.5 ml Tube Feeding 180 ml Output Urine Total 500 ml # Voids 3 # Bowel Movements 5 2D Echo: EF55%,Mild LVH,Mod MR,Mild AR,RVSP 67 mmHg (severe PHT),Restrictive LV phy Objective HEENT: Normocephalic, atraumatic, Pupils equally reactive to light and accommodation, EOMI. NECK: No JVD, no carotid bruit. CARDIOVASCULAR: Regular rate and rhythm. No murmurs, gallops or rubs. LUNGS: Clear to auscultation bilaterally. No crackles or Rhonchi. ABDOMEN: Soft and nontender. No organomegaly, + BS. EXTREMITIES: No cyanosis, clubbing or edema. Miller Mckeon MD Jun 18, 2018 23:58
[2018-06-19] VITALS (8 sets, daily range): BP systolic 125–147; BP diastolic 47–73
--- NOTE | 2018-06-19 | NUR ---
NURSE NOTES: Patient repositioned, oral care and suction. NAD at this time. Patient cleaned adjusted pillows.
[2018-06-19] MEDS: HydrALAZINE 25mg tab ORAL SCH ×4 (00:29→17:37)
[2018-06-19] MEDS: NovoLOG Insulin Flexpen SUBQ SCH ×4 (00:31→17:45)
--- NOTE | 2018-06-19 02:00 | NUR ---
NURSE NOTES: Patient having low grade fevers, cooling measures are in effect. Temperature noted to be 100.0Fn (axially). Tylenol PRN provided.
--- NOTE | 2018-06-19 03:00 | NUR ---
HAND-OFF: Report given to Larisa, patient is stable condition, cooling measure remain in effect, patient remains alert and oriented and able to produce personal needs by nodding and moving lips. PICC line remains patent and asymptomatic, both lines flush well. Ongoing feeds, and terating feed well. .
--- NOTE | 2018-06-19 03:00 | NUR ---
NURSE NOTES: Received report from Evette Maldonado RN. Patient is awake in bed, A/Ox4. No s/s of acute distress noted. Sinus rhythm on monitoring analyst. Trach-vent: Shiley 8, AC 12, Vt 500, FiO2 30%, PEEP 5; saturating well. Receiving Glucerna 1.5 via GT at 45 cc/hr and tolerating well. Rectal tube in place. Purewick catheter in place and suctioning well. Left upper arm PICC line TKO, intact and patent. Bed locked in lowest position with side rails up x3. Call light left within reach. Will continue to monitor.
[2018-06-19] MEDS ORDERED: Haloperidol 5mg/ml Inj IM PRN (03:14)
[2018-06-19] MEDS ORDERED: Metoprolol 5mg/5ml Inj IVP PRN (03:14)
[2018-06-19] MEDS ORDERED: Milk of Magnesia 30ml Ud ORAL PRN (03:14)
--- NOTE | 2018-06-19 07:15 | NUR ---
HAND-OFF: Report given to Amol Reeder RN.
--- NOTE | 2018-06-19 07:28 | NUR ---
NURSE NOTES: Received report from WAYNE Peres. Patient resting in bed, in stable condition. No s/sx of SOB, breathing is even and unlabored. Denies any presence of pain or discomfort at this time. Bed is in lowest position, brakes engaged. Call light is kept within easy reach. Will continue to monitor patient.
[2018-06-19] MEDS ORDERED: D5 1/2NS 1,000 ML IV SCH (07:45)
[2018-06-19 07:47] LABS: BASOPHILS % (AUTO) 1.1 % (0.0-2.0); EOSINOPHILS % (AUTO) 2.3 % (0.0-3.0); HEMOGLOBIN 8.6 G/DL (12.0-16.0); LYMPHOCYTES % (AUTO) 8.5 % (20.0-45.0); MEAN CORPUSCULAR VOLUME 94 FL (80-99); MONOCYTES % (AUTO) 8.4 % (1.0-10.0); NEUTROPHILS % (AUTO) 79.7 % (45.0-75.0); PLATELET COUNT 230 K/UL (150-450); RED BLOOD COUNT 2.99 M/UL (4.20-5.40); RED CELL DISTRIBUTION WIDTH 21.7 % (11.6-14.8); WHITE BLOOD COUNT 11.5 K/UL (4.8-10.8)
[2018-06-19 08:41] LABS: ALANINE AMINOTRANSFERASE 16 U/L (12-78); ALBUMIN 2.1 G/DL (3.4-5.0); ALBUMIN/GLOBULIN RATIO 0.5 (1.0-2.7); ALKALINE PHOSPHATASE 338 U/L (46-116); ANION GAP 15 mmol/L (5-15); ASPARTATE AMINO TRANSFERASE 27 U/L (15-37); BILIRUBIN,TOTAL 0.6 MG/DL (0.2-1.0); BLOOD UREA NITROGEN 24 mg/dL (7-18); CALCIUM 8.6 MG/DL (8.5-10.1); CARBON DIOXIDE 22 MMOL/L (21-32); CHLORIDE 110 MMOL/L (98-107); CREATININE 1.7 MG/DL (0.55-1.30); POTASSIUM 3.1 MMOL/L (3.5-5.1); SODIUM 147 MMOL/L (136-145)
--- NOTE | 2018-06-19 09:00 | NUR ---
RESPIRATORY NOTE: Attempted ABG x2 and @1000am jordon MCCLENDON got it, but possible mix will try to attempt later before weaning.
[2018-06-19] MEDS: Aspirin Baby 81mg ORAL SCH (09:26)
[2018-06-19] MEDS: Metoprolol Tartrate 50mg tab ORAL SCH ×2 (09:27→20:20)
[2018-06-19] MEDS: Miconazole 2% Cream 30gm TOPIC SCH ×2 (09:27→17:46)
[2018-06-19] MEDS: Enoxaparin 80mg Inj SUBQ SCH (09:30)
--- NOTE | 2018-06-19 12:59 | General Progress Note ---
Assessment/Plan Problem List: (1) Hyperglycemia ICD Codes: R73.9 - Hyperglycemia, unspecified SNOMED: 93869690 (2) Hyperkalemia ICD Codes: E87.5 - Hyperkalemia SNOMED: 97091177, 546105040 (3) Elevated brain natriuretic peptide (BNP) level ICD Codes: R79.89 - Other specified abnormal findings of blood chemistry SNOMED: 035368332, 368079907 (4) DKA (diabetic ketoacidosis) ICD Codes: E13.10 - Other specified diabetes mellitus with ketoacidosis without coma SNOMED: 768499680, 10033450 Qualifiers: Qualified Codes: E10.10 - Type 1 diabetes mellitus with ketoacidosis without coma (5) Pancreatitis ICD Codes: K85.90 - Acute pancreatitis without necrosis or infection, unspecified SNOMED: 18813616 Qualifiers: Qualified Codes: K85.90 - Acute pancreatitis without necrosis or infection, unspecified (6) Renal failure ICD Codes: N19 - Unspecified kidney failure SNOMED: 93694308 Qualifiers: Qualified Codes: N17.9 - Acute kidney failure, unspecified (7) Sepsis ICD Codes: A41.9 - Sepsis, unspecified organism SNOMED: 86435234 Qualifiers: Qualified Codes: A41.9 - Sepsis, unspecified organism (8) UTI (urinary tract infection) ICD Codes: N39.0 - Urinary tract infection, site not specified SNOMED: 15385403 Qualifiers: Qualified Codes: N39.0 - Urinary tract infection, site not specified (9) Diabetes ICD Codes: E11.9 - Type 2 diabetes mellitus without complications SNOMED: 26929054 (10) Shortness of breath ICD Codes: R06.02 - Shortness of breath SNOMED: 400877134 (11) Pneumonia ICD Codes: J18.9 - Pneumonia, unspecified organism SNOMED: 763868518 (12) HTN (hypertension) ICD Codes: I10 - Essential (primary) hypertension SNOMED: 87916195 (13) Acute metabolic encephalopathy ICD Codes: G93.41 - Metabolic encephalopathy SNOMED: 29748859, 864236935 (14) Anemia ICD Codes: D64.9 - Anemia, unspecified SNOMED: 595520115 (15) Respiratory insufficiency ICD Codes: R06.89 - Other abnormalities of breathing SNOMED: 737963536 Status: stable Assessment/Plan cont vent support resp rx gt feeds suctioning as needed monitor off abx replace lytes dvt/stress ulcer prophylaxis monitor bs Subjective ROS Limited/Unobtainable: Yes Constitutional: Reports: weakness HEENT: Reports: no symptoms Cardiovascular: Reports: no symptoms Respiratory: Reports: shortness of breath Gastrointestinal/Abdominal: Reports: no symptoms Genitourinary: Reports: no symptoms Neurologic/Psychiatric: Reports: anxiety Endocrine: Reports: no symptoms Hematologic/Lymphatic: Reports: anemia Allergies: Coded Allergies: SHELLFISH DERIVED (Verified Allergy, Unknown, swelling and itchiness, 05/14) All Systems: reviewed and negative except above Subjective no events. on the vent. awake. follows simple commands. denies cp/sob. some congestion Objective Last 24 Hour Vital Signs Date Time Temp Pulse Resp B/P (MAP) Pulse Ox O2 Delivery O2 Flow Rate FiO2 06/19/18 11:07 87 19 30 06/19/18 09:27 112 144/84 06/19/18 09:26 112 144/84 06/19/18 09:25 110 21 30 06/19/18 08:00 100.3 98 17 144/73 (96) 94 06/19/18 08:00 Mechanical Ventilator 06/19/18 08:00 30 06/19/18 07:16 110 14 30 06/19/18 06:08 147/67 06/19/18 05:24 78 15 30 06/19/18 04:00 99.0 90 18 147/67 (93) 93 06/19/18 04:00 Mechanical Ventilator 06/19/18 04:00 30 06/19/18 03:42 93 06/19/18 02:44 88 23 30 06/19/18 02:00 100.0 88 22 132/47 (75) 100 06/19/18 01:50 86 16 30 06/19/18 01:00 92 20 139/66 (90) 99 06/19/18 00:29 127/52 06/19/18 00:00 99.0 86 16 127/52 (77) 99 06/19/18 00:00 30 06/19/18 00:00 Mechanical Ventilator 06/18/18 23:12 87 16 30 06/18/18 23:00 78 16 126/49 (74) 99 06/18/18 22:30 86 13 120/57 (78) 98 06/18/18 22:00 79 12 119/58 (78) 97 06/18/18 21:19 82 15 30 06/18/18 21:00 91 14 122/66 (84) 97 06/18/18 20:49 90 128/71 06/18/18 20:00 35 06/18/18 20:00 Mechanical Ventilator 06/18/18 20:00 99.2 84 20 111/42 (65) 99 06/18/18 20:00 90 06/18/18 19:22 90 15 30 06/18/18 19:00 89 16 128/71 (90) 99 06/18/18 18:00 84 18 111/54 (73) 99 06/18/18 17:00 92 9 126/52 (76) 98 06/18/18 16:52 97 19 30 06/18/18 16:30 98.6 84 14 124/64 (84) 99 06/18/18 16:00 87 16 122/47 (72) 98 06/18/18 16:00 Mechanical Ventilator 06/18/18 15:52 80 06/18/18 15:08 81 14 30 06/18/18 15:00 85 14 114/44 (67) 98 06/18/18 14:27 83 18 100 06/18/18 14:00 83 18 115/53 (73) 100 06/18/18 13:00 78 10 117/55 (75) 100 06/18/18 13:00 35 Intake and Output 06/18/18 06/19/18 19:00 07:00 Intake Total 779.0 ml 505 ml Output Total 750 ml Balance 779.0 ml -245 ml Free Water 100 ml IV Total 779.0 ml 250 ml Tube Feeding 155 ml Output Urine Total 750 ml # Voids 2 # Bowel Movements 1 Laboratory Tests 06/19/18 03:32: White Blood Count 11.5H, Red Blood Count 2.99L, Hemoglobin 8.6L, Hematocrit 28.0L, Mean Corpuscular Volume 94, Mean Corpuscular Hemoglobin 28.7, Mean Corpuscular Hemoglobin Concent 30.6L, Red Cell Distribution Width 21.7H, Platelet Count 230, Mean Platelet Volume 7.2, Neutrophils (%) (Auto) 79.7H, Lymphocytes (%) (Auto) 8.5L, Monocytes (%) (Auto) 8.4, Eosinophils (%) (Auto) 2.3, Basophils (%) (Auto) 1.1, Sodium Level 147H, Potassium Level 3.1L, Chloride Level 110H, Carbon Dioxide Level 22, Anion Gap 15, Blood Urea Nitrogen 24H, Creatinine 1.7H, Estimat Glomerular Filtration Rate 29.7, Glucose Level 147H, Calcium Level 8.6, Total Bilirubin 0.6, Aspartate Amino Transf (AST/SGOT) 27, Alanine Aminotransferase (ALT/SGPT) 16, Alkaline Phosphatase 338H, Total Protein 6.6, Albumin 2.1L, Globulin 4.5, Albumin/Globulin Ratio 0.5L Height (Feet): 5 Height (Inches): 2.00 Weight (Pounds): 167 General Appearance: WD/WN, confused Neck: supple Cardiovascular: normal rate, regular rhythm Respiratory/Chest: rhonchi - bilaterally Abdomen: normal bowel sounds, non tender, soft, no organomegaly Edema: mild edema Neurologic: alert, responsive, disoriented See Atwood MD Jun 19, 2018 12:59
[2018-06-19] MEDS: Acetaminophen 650mg/20.3ml GT PRN (17:43)
--- NOTE | 2018-06-19 19:26 | NUR ---
HAND-OFF: Report given to WAYNE Christian.
--- NOTE | 2018-06-19 19:31 | Cardiology Progress Note ---
Assessment/Plan Assessment/Plan 1. Paroxysmal atrial fibrillation, in sinus rhythm now, due to CHADS-VASC score of 5, continue enoxaparin and metoprolol. 2. Hx of CAD, s/p CABG, ASA , atorvastatin and metoprolol. 3. Acute heart failure with normal EF, lasix spot dose 20mg IVP times one dose, with KCL, BNP in am. 4. DKA, resolved. 5. DM 6. HTN, well controlled, continue amlodipine, metoprolol and hydralazine. 7. Severe pulmonary HTN. 8. CKD Subjective Subjective Sinus rhythm at rate of 95. On full face mask oxygen, FiO2 30%. Objective Last 24 Hour Vital Signs Date Time Temp Pulse Resp B/P (MAP) Pulse Ox O2 Delivery O2 Flow Rate FiO2 06/19/18 17:42 103 147/85 06/19/18 17:11 95 22 30 06/19/18 16:00 30 06/19/18 16:00 101.2 103 18 147/65 (92) 96 06/19/18 16:00 96 06/19/18 16:00 Mechanical Ventilator 06/19/18 15:00 90 20 30 06/19/18 13:25 98 19 30 06/19/18 13:01 128/66 06/19/18 12:00 100.4 93 19 128/66 (86) 95 06/19/18 12:00 30 06/19/18 12:00 Mechanical Ventilator 06/19/18 12:00 98 06/19/18 11:07 87 19 30 06/19/18 09:27 112 144/84 06/19/18 09:26 112 144/84 06/19/18 09:25 110 21 30 06/19/18 08:00 100.3 98 17 144/73 (96) 94 06/19/18 08:00 105 06/19/18 08:00 Mechanical Ventilator 06/19/18 08:00 30 06/19/18 07:16 110 14 30 06/19/18 06:08 147/67 06/19/18 05:24 78 15 30 06/19/18 04:00 99.0 90 18 147/67 (93) 93 06/19/18 04:00 Mechanical Ventilator 06/19/18 04:00 30 06/19/18 03:42 93 3/2/19 02:44 88 23 30 06/19/18 02:00 100.0 88 22 132/47 (75) 100 06/19/18 01:50 86 16 30 06/19/18 01:00 92 20 139/66 (90) 99 06/19/18 00:29 127/52 06/19/18 00:00 99.0 86 16 127/52 (77) 99 06/19/18 00:00 30 06/19/18 00:00 Mechanical Ventilator 06/18/18 23:12 87 16 30 06/18/18 23:00 78 16 126/49 (74) 99 06/18/18 22:30 86 13 120/57 (78) 98 06/18/18 22:00 79 12 119/58 (78) 97 06/18/18 21:19 82 15 30 06/18/18 21:00 91 14 122/66 (84) 97 06/18/18 20:49 90 128/71 06/18/18 20:00 35 06/18/18 20:00 Mechanical Ventilator 06/18/18 20:00 99.2 84 20 111/42 (65) 99 06/18/18 20:00 90 Intake and Output 06/18/18 06/19/18 19:00 07:00 Intake Total 779.0 ml 505 ml Output Total 750 ml Balance 779.0 ml -245 ml Free Water 100 ml IV Total 779.0 ml 250 ml Tube Feeding 155 ml Output Urine Total 750 ml # Voids 2 # Bowel Movements 1 2D Echo: EF55%,Mild LVH,Mod MR,Mild AR,RVSP 67 mmHg (severe PHT),Restrictive LV phy Laboratory Tests Test 06/19/18 03:32 06/19/18 15:15 White Blood Count 11.5 K/UL (4.8-10.8) H Red Blood Count 2.99 M/UL (4.20-5.40) L Hemoglobin 8.6 G/DL (12.0-16.0) L Hematocrit 28.0 % (37.0-47.0) L Mean Corpuscular Volume 94 FL (80-99) Mean Corpuscular Hemoglobin 28.7 PG (27.0-31.0) Mean Corpuscular Hemoglobin Concent 30.6 G/DL (32.0-36.0) L Red Cell Distribution Width 21.7 % (11.6-14.8) H Platelet Count 230 K/UL (150-450) Mean Platelet Volume 7.2 FL (6.5-10.1) Neutrophils (%) (Auto) 79.7 % (45.0-75.0) H Lymphocytes (%) (Auto) 8.5 % (20.0-45.0) L Monocytes (%) (Auto) 8.4 % (1.0-10.0) Eosinophils (%) (Auto) 2.3 % (0.0-3.0) Basophils (%) (Auto) 1.1 % (0.0-2.0) Sodium Level 147 MMOL/L (136-145) H Potassium Level 3.1 MMOL/L (3.5-5.1) L Chloride Level 110 MMOL/L (98-107) H Carbon Dioxide Level 22 MMOL/L (21-32) Anion Gap 15 mmol/L (5-15) Blood Urea Nitrogen 24 mg/dL (7-18) H Creatinine 1.7 MG/DL (0.55-1.30) H Estimat Glomerular Filtration Rate 29.7 mL/min (>60) Glucose Level 147 MG/DL (74-106) H Calcium Level 8.6 MG/DL (8.5-10.1) Total Bilirubin 0.6 MG/DL (0.2-1.0) Aspartate Amino Transf (AST/SGOT) 27 U/L (15-37) Alanine Aminotransferase (ALT/SGPT) 16 U/L (12-78) Alkaline Phosphatase 338 U/L (46-116) H Total Protein 6.6 G/DL (6.4-8.2) Albumin 2.1 G/DL (3.4-5.0) L Globulin 4.5 g/dL Albumin/Globulin Ratio 0.5 (1.0-2.7) L Arterial Blood pH 7.519 (7.350-7.450) Arterial Blood Partial Pressure CO2 28.0 mmHg (35.0-45.0) L Arterial Blood Partial Pressure O2 64.7 mmHg (75.0-100.0) L Arterial Blood HCO3 22.3 mmol/L (22.0-26.0) Arterial Blood Oxygen Saturation 92.8 % (95-100) L Arterial Blood Base Excess 0 (-2-2) Marlon Test Positive Microbiology Date/Time Source Procedure Growth Status 06/18/18 05:00 Stool Clostridium difficile Toxin Assay - Final Complete Objective HEENT: Normocephalic, atraumatic, Pupils equally reactive to light and accommodation, EOMI. NECK: No JVD, no carotid bruit. CARDIOVASCULAR: Regular rate and rhythm. No murmurs, gallops or rubs. LUNGS: Clear to auscultation bilaterally. No crackles or Rhonchi. ABDOMEN: Soft and nontender. No organomegaly, + BS. EXTREMITIES: No cyanosis, clubbing or edema. Miller Mckeon MD Jun 19, 2018 19:31
--- NOTE | 2018-06-19 20:00 | NUR ---
NURSE NOTES: Patient received from Landon Gorman RN. Patient is awake and lert, can follow command. Patient noted to be very lethargic, temperature noted to be 101.5. Cooling measure are in effect from prior shift. Patient has OMAR PICC TKO. G tube running Glucerna at 45ml. Patient has Purewick to suction. Patient given cooling bath, SCD's are on, patient repositioned.
[2018-06-19] MEDS: OLANZapine 2.5mg tab ORAL SCH (20:19)
[2018-06-19] MEDS: Dyna-Hex 2% Top Sol 2oz TOPIC SCH (20:19)
[2018-06-20] VITALS: BP 129/79
--- NOTE | 2018-06-20 | NUR ---
NURSE NOTES: Patient repositioned noted to have temperature, cooling measures ongoing. Patient remains normotensive. Oral care was provided, NAD at this time, will continue to monitor.
[2018-06-20 04:00] VITALS: BP 111/56
--- NOTE | 2018-06-20 04:00 | NUR ---
NURSE NOTES: Applied cooling blanket. Patient repositioned, vitals remains stable, patient cleaned with CHG. Will continue to monitor.
--- NOTE | 2018-06-20 06:00 | NUR ---
NURSE NOTES: Patient has been having fevers throughout the night, cooling measure was provided but seemed ineffective, cooling blanket was applied and temperature came down to afebrile range. New feeds and tubings were changed, CHG bath was already given, IV lines flushed for patency. New Purewixk applied and new linen changed. Glucose coverage was provided during shift see logs, good urine output was made by patient.
[2018-06-20] MEDS: HydrALAZINE 25mg tab ORAL SCH ×4 (06:21→17:56)
[2018-06-20] MEDS: NovoLOG Insulin Flexpen SUBQ SCH ×4 (06:21→17:57)
--- NOTE | 2018-06-20 07:13 | NUR ---
HAND-OFF: Report given to Landon BLACK.
--- NOTE | 2018-06-20 07:25 | NUR ---
NURSE NOTES: Received report from WAYNE Christian. Patient is resting in bed, in stable condition. No s/sx of SOB, breathing is even and unlabored, mechanical vent settings are as ordered. Denies any presence of pain or discomfort at this time. Bed is in lowest position, brakes engaged. Call light is kept within easy reach. Will continue to monitor patient.
--- NOTE | 2018-06-20 07:28 | NUR ---
RESPIRATORY NOTE: Patient received mechanically ventilated on PB 840 with current ordered vent settings. Patient has trach size Shiley #8.0 cuffed that is secure with a trach tie and guard. There are bilateral coarse breath sounds noted upon auscultation. Small amount to thick clear and cheung secretions were suctioned without incident via inline suction system. Vent alarms are functional and audible. There is am an ambu bag available at the bedside and the vent is connected to a red outlet. Patient appears comfortable at this time. Will continue to monitor.
[2018-06-20 08:00] VITALS: BP 133/73
[2018-06-20] MEDS: Enoxaparin 80mg Inj SUBQ SCH (09:11)
[2018-06-20] MEDS: Aspirin Baby 81mg ORAL SCH (09:11)
[2018-06-20] MEDS: Metoprolol Tartrate 50mg tab ORAL SCH ×2 (09:11→20:39)
[2018-06-20] MEDS: Miconazole 2% Cream 30gm TOPIC SCH ×2 (09:12→17:58)
--- NOTE | 2018-06-20 09:39 | NUR ---
RESPIRATORY NOTE: Initiated weaning protocol per 's orders. Patient became tachypneic, tachycardic, with increase work of breathing and desaturation. Patient failed SBT. Patient placed back on AC. RN made aware. Will continue to monitor.
--- NOTE | 2018-06-20 10:10 | Infectious Diseases Prog Note ---
Assessment/Plan Assessment/Plan A 1. pancreatitis, EUS negative 2. herpes of lip treated 3. DM 4. increased LFT 5. fever resolved 6. hypertension 7. Anemia 10. Hypoxemic respiratory failure 11. Pneumonia with Klebsiella & strep Group B 12 post operative fever P 1. repeat CXR, UA, Urine culture, Blood culture from PICC line 2. start on Levaquin & Vancomycin Subjective ROS Limited/Unobtainable: Yes Constitutional: Reports: fever, other - T fop=958.5 Gastrointestinal/Abdominal: Reports: other - had GT placement Neurologic: Reports: confusion, other - on restraint Allergies: Coded Allergies: SHELLFISH DERIVED (Verified Allergy, Unknown, swelling and itchiness, 05/14) Objective Vital Signs Last 24 Hour Vital Signs Date Time Temp Pulse Resp B/P (MAP) Pulse Ox O2 Delivery O2 Flow Rate FiO2 06/20/18 09:12 85 132/75 06/20/18 09:11 85 132/75 06/20/18 08:00 Mechanical Ventilator 06/20/18 08:00 40 06/20/18 08:00 100.0 95 20 133/73 (93) 95 06/20/18 07:26 81 20 30 06/20/18 06:21 147/85 06/20/18 05:30 99 26 30 06/20/18 04:00 100 06/20/18 04:00 40 06/20/18 04:00 Mechanical Ventilator 06/20/18 04:00 98.0 96 20 111/56 (74) 100 06/20/18 03:30 94 22 30 06/20/18 01:28 92 22 30 06/20/18 00:00 101.0 100 16 129/79 (96) 100 06/20/18 00:00 40 06/20/18 00:00 Mechanical Ventilator 06/20/18 00:00 147/85 06/20/18 00:00 89 06/19/18 22:52 96 21 30 06/19/18 22:49 93 22 30 06/19/18 20:20 103 147/85 06/19/18 20:00 30 06/19/18 20:00 101.5 98 14 125/69 (87) 99 06/19/18 20:00 102 06/19/18 20:00 Mechanical Ventilator 06/19/18 19:42 97 20 30 06/19/18 18:13 99.3 06/19/18 17:42 103 147/85 06/19/18 17:11 95 22 30 06/19/18 16:00 30 06/19/18 16:00 101.2 103 18 147/65 (92) 96 06/19/18 16:00 96 06/19/18 16:00 Mechanical Ventilator 06/19/18 15:00 90 20 30 06/19/18 13:25 98 19 30 06/19/18 13:01 128/66 06/19/18 12:00 100.4 93 19 128/66 (86) 95 06/19/18 12:00 30 06/19/18 12:00 Mechanical Ventilator 06/19/18 12:00 98 06/19/18 11:07 87 19 30 Height (Feet): 5 Height (Inches): 2.00 Weight (Pounds): 168 HEENT: status post trach Respiratory/Chest: lungs clear, other - on ventilator Cardiovascular: normal rate, other - PICC line Abdomen: soft, non tender, other - GT feeding, rectal tube Extremities: other - edema more in arms Neurologic/Psychiatric: alert, responsive Microbiology Date/Time Source Procedure Growth Status 06/18/18 05:00 Stool Clostridium difficile Toxin Assay - Final Complete Laboratory Tests Test 06/19/18 15:15 06/20/18 03:26 Arterial Blood pH 7.519 (7.350-7.450) Arterial Blood Partial Pressure CO2 28.0 mmHg (35.0-45.0) L Arterial Blood Partial Pressure O2 64.7 mmHg (75.0-100.0) L Arterial Blood HCO3 22.3 mmol/L (22.0-26.0) Arterial Blood Oxygen Saturation 92.8 % (95-100) L Arterial Blood Base Excess 0 (-2-2) Marlon Test Positive Potassium Level 4.1 MMOL/L (3.5-5.1) Pro-B-Type Natriuretic Peptide 99453 pg/mL (0-125) H Current Medications Medications (Trade) Dose Ordered Sig/Ellen Route PRN Reason Start Time Stop Time Status Last Admin Dose Admin Acetaminophen (Tylenol) 650 mg Q4H PRN GT Mild Pain/Temp > 100.5 06/19/18 13:45 07/19/18 13:44 06/19/18 17:43 Al Hydroxide/Mg Hydroxide (Mylanta) 30 ml Q6H PRN ORAL Abdominal cramps 06/19/18 03:14 07/02/18 03:13 Amlodipine Besylate (Norvasc) 5 mg BID ORAL 06/19/18 09:00 06/28/18 08:59 06/20/18 09:12 Aspirin (ASA) 81 mg DAILY ORAL 06/19/18 09:00 06/24/18 08:59 06/20/18 09:11 Chlorhexidine Gluconate (Leora-Hex 2%) 1 applic DAILY@1999 TOPIC 06/19/18 20:00 06/24/18 19:59 06/19/18 20:19 Enoxaparin Sodium (Lovenox) 80 mg Q24H SUBQ 06/19/18 09:00 07/03/18 08:59 06/20/18 09:11 Haloperidol Lactate (Haldol) 5 mg Q6H PRN IM Agitation 06/19/18 03:14 07/02/18 03:13 Hydralazine HCl (Apresoline) 25 mg Q6HR ORAL 06/19/18 06:00 07/02/18 00:00 06/20/18 06:21 Insulin Aspart (NovoLOG) Q6HR SUBQ 06/19/18 06:00 07/08/18 16:29 06/20/18 06:21 Lansoprazole (Prevacid) 30 mg DAILY GT 06/19/18 09:00 07/11/18 08:59 06/20/18 09:11 Magnesium Hydroxide (Mom) 30 ml DAILYPRN PRN ORAL Constipation 06/19/18 03:14 07/02/18 03:13 Metoprolol Tartrate (Lopressor) 5 mg Q2H PRN IVP For High Blood Pressure 06/19/18 03:14 06/23/18 03:13 Metoprolol Tartrate (Lopressor) 50 mg Q12HR ORAL 06/19/18 09:00 06/26/18 20:59 06/20/18 09:11 Miconazole Nitrate (Miconazole Nitrate) 1 applic BID TOPIC 06/19/18 09:00 07/09/18 18:29 06/20/18 09:12 Olanzapine (ZyPREXA) 2.5 mg BEDTIME ORAL 06/19/18 21:00 07/01/18 20:59 06/19/18 20:19 Mahesh Tejada MD Jun 20, 2018 10:10
--- NOTE | 2018-06-20 10:24 | General Progress Note ---
Assessment/Plan Assessment/Plan Assessment and Recs: # Pancytopenia -- appears that initial hep and hiv are negative though final results to follow, liver shows no major hsm or cirrhosis, may consider meds or bone marrow process, smear reviewed, does have low albumin, has been hospitalized for some time, in and out since 04/30/18. Hiv and hepatitis panels are both negative --> query meds, review with ID, is on micafungin now, monitor counts closely --> given hgb downtrending and some nucleated reds on smear, will send off a flow cytometry --> nepogen 300mcg sq to maintain anc >1500 --> wbc trend : 1.7-->4.3-->3.1-->3.4-->7.7-->8.1--12-->15-->11-->14.6-->9 # Anemia of chronic disease - monitor anemia panel --> hemolysis does not appear to be the case --> anemia panel reviewed and c/w acd --> hgb trend: 8.3-->9.2-->8.9-->8.7-->9-->7.7-->7--->8 # Paroxysmal atrial fibrillation, due to CHADS-VASC score of 5, we require to keep anticoagulated, on metoprolol --> continue on apixaban # Hx of CAD, s/p CABG, ASA , atorvastatin and metoprolol. No wall motion abnormalities on Echo. LVEF ~55%. --> appreciate cards recs # Sinus tachycardia due to hypovolemia, resolved. # DKA, resolved. --> continue monitor # DM, non-compliant with medications. # Hx of HTN, controlled with metoprolol. # pancreatitis -- appreciate gi recs # increased LFT The timing of this note does not necessarily reflect the time of the patient was seen. Greatly appreciate consultation! Subjective Constitutional: Denies: no symptoms, chills, diaphoresis, fever, malaise, weakness, other HEENT: Denies: no symptoms, eye pain, blurred vision, tearing, double vision, ear pain, ear discharge, nose pain, nose congestion, throat pain, throat swelling, mouth pain, mouth swelling, other Cardiovascular: Denies: no symptoms, chest pain, edema, irregular heart rate, lightheadedness, palpitations, syncope, other Respiratory: Denies: no symptoms, cough, orthopnea, shortness of breath, SOB with excertion, SOB at rest, sputum, stridor, wheezing, other Gastrointestinal/Abdominal: Denies: no symptoms, abdomen distended, abdominal pain, black stools, tarry stools, blood in stool, constipated, diarrhea, difficulty swallowing, nausea, poor appetite, poor fluid intake, rectal bleeding , vomiting, other Allergies: Coded Allergies: SHELLFISH DERIVED (Verified Allergy, Unknown, swelling and itchiness, 05/14) Subjective 05/18: Pt is awake and comfortable, no events, leukopenia improved, wbc 4.3, plt 151 05/19: seen by bedside, awake, comfortable, plt 122 05/20: Pt is awake and comfortable, no events 05/21: Pt is seen in the room, resting in bed, no fevers or chills, wbc 8.7, plt 117 05/23: Pt is resting in bed, awake, comfortable, no fevers or chills, no acute distress. 05/24: EGD and EUS done today, has no gallbladder stones, only pancreatitis, no events 2: no events, dermatitis has improved, off loading of heels, pancreatitis and dka better 05/26: Pt is awake, comfortable, no acute events overnight, hgb 8.6 05/27: seen by bedside, awake, comfortable, no events 05/28: resting in bed, awake, comfortable, no fevers or chills, no acute distress , No need for ERCP per GI, 05/31: Pt is awake and comfortable, no events 06/01: awake, comfortable, denies acute distress. 06/02: seen by bedside, awake, comfortable, no acute distress. wbc 15. 2: no acute events, denies any abdominal pain, wbc trending down at 11 today. 06/04: awake/drowsy in bed, breathing easily on nasal cannula, denies SOB and pain at this time. 06/06: anemia cotninues to worsen, may consider a bone marrow biopsy if patient approves 06/07: hgb 9.7, not eating well, remains lethargic 06/08: hgb is stable, respiratory status is worsened, and thus was transferred to the icu 06/09: seen by bedside,awake, comfortable, plan to insert NGT samanta 06/10: not eating well, remains lethargic 06/11: poor po intake but currently on BIPAP and not stable for PEG placement, NGTF on hold per pulm 06/13:Seen by bedside, less confused, on BIPAP, no events 06/14: seen by bedside, on BIPAP, NJT feeds, no events 06/15: On BIPAP, Less confused, NJT feeds started, no events 06/16: awake, comfortable, NJT in place, more alert, on BIPAP, agreed to trach 06/17: Trach done today, PEG scheduled for am, no acute distress 06/18: PEG placement done by Dr Jewell, tolerated well , tube feeding from tomorrow AM , no events, hgb 8.3 06/20: is in the sdu, no events, h/h relatively stable, s/p peg, tolerating feeds well Objective Last 24 Hour Vital Signs Date Time Temp Pulse Resp B/P (MAP) Pulse Ox O2 Delivery O2 Flow Rate FiO2 06/20/18 09:39 94 06/20/18 09:18 89 21 30 06/20/18 09:12 85 132/75 06/20/18 09:11 85 132/75 06/20/18 08:00 Mechanical Ventilator 06/20/18 08:00 40 06/20/18 08:00 100.0 95 20 133/73 (93) 95 06/20/18 07:26 81 20 30 06/20/18 06:21 147/85 06/20/18 05:30 99 26 30 06/20/18 04:00 100 06/20/18 04:00 40 06/20/18 04:00 Mechanical Ventilator 06/20/18 04:00 98.0 96 20 111/56 (74) 100 06/20/18 03:30 94 22 30 06/20/18 01:28 92 22 30 06/20/18 00:00 101.0 100 16 129/79 (96) 100 06/20/18 00:00 40 06/20/18 00:00 Mechanical Ventilator 06/20/18 00:00 147/85 06/20/18 00:00 89 06/19/18 22:52 96 21 30 06/19/18 22:49 93 22 30 06/19/18 20:20 103 147/85 06/19/18 20:00 30 06/19/18 20:00 101.5 98 14 125/69 (87) 99 06/19/18 20:00 102 06/19/18 20:00 Mechanical Ventilator 06/19/18 19:42 97 20 30 06/19/18 18:13 99.3 06/19/18 17:42 103 147/85 06/19/18 17:11 95 22 30 06/19/18 16:00 30 06/19/18 16:00 101.2 103 18 147/65 (92) 96 06/19/18 16:00 96 06/19/18 16:00 Mechanical Ventilator 06/19/18 15:00 90 20 30 06/19/18 13:25 98 19 30 06/19/18 13:01 128/66 06/19/18 12:00 100.4 93 19 128/66 (86) 95 06/19/18 12:00 30 06/19/18 12:00 Mechanical Ventilator 06/19/18 12:00 98 06/19/18 11:07 87 19 30 Intake and Output 06/19/18 06/20/18 18:59 06:59 Intake Total 495 ml 540 ml Output Total 300 ml Balance 195 ml 540 ml Tube Feeding 495 ml 540 ml Output Urine Total 300 ml # Voids 1 Laboratory Tests 06/19/18 15:15: Arterial Blood pH 7.519H, Arterial Blood Partial Pressure CO2 28.0L, Arterial Blood Partial Pressure O2 64.7L, Arterial Blood HCO3 22.3, Arterial Blood Oxygen Saturation 92.8L, Arterial Blood Base Excess 0, Marlon Test Positive 06/20/18 03:26: Potassium Level 4.1, Pro-B-Type Natriuretic Peptide 01292N Height (Feet): 5 Height (Inches): 2.00 Weight (Pounds): 168 Objective PHYSICAL EXAMINATION: GENERAL: Pleasant [place] woman, tired HEENT: Normocephalic and atraumatic. Sclerae anicteric. Oropharynx clear. NECK: Supple Trach++ CHEST: bilateral crackles and ++ nc CARDIOVASCULAR: Revealed regular rate. ABDOMEN: Soft. Good bowel sounds. PEG++ EXTREMITIES: Revealed no edema. Armando Bowen MD Jun 20, 2018 10:24
--- NOTE | 2018-06-20 10:58 | General Progress Note ---
Assessment/Plan Problem List: (1) HTN (hypertension) ICD Codes: I10 - Essential (primary) hypertension SNOMED: 59567852 (2) Pneumonia ICD Codes: J18.9 - Pneumonia, unspecified organism SNOMED: 394076691 (3) Diabetes ICD Codes: E11.9 - Type 2 diabetes mellitus without complications SNOMED: 28902280 (4) UTI (urinary tract infection) ICD Codes: N39.0 - Urinary tract infection, site not specified SNOMED: 75349771 Qualifiers: Qualified Codes: N39.0 - Urinary tract infection, site not specified (5) Pancreatitis ICD Codes: K85.90 - Acute pancreatitis without necrosis or infection, unspecified SNOMED: 89611593 Qualifiers: Qualified Codes: K85.90 - Acute pancreatitis without necrosis or infection, unspecified (6) Gout ICD Codes: M10.9 - Gout, unspecified SNOMED: 12462027 Qualifiers: Qualified Codes: M10.9 - Gout, unspecified (7) Anemia ICD Codes: D64.9 - Anemia, unspecified SNOMED: 611401316 Status Narrative GTF tolerata fu labs' supportive care dc planning per primary team Assessment/Plan Assessment/Plan Status post EUS summary of findings 1. Pancreatitis, most probably acute, without any pancreatic duct dilatation or mass. 2. No evidence of any common bile duct dilatation was seen with common bile duct stone. 3. Gallbladder wall thickening, nonspecific. 4. 1 cm kristina hepatis lymph node, nonspecific. Elevated lipase levels, downtrending RECOMMENDATIONS: No need for ERCP Pain management Trend lipase Zofran as needed Follow-up labs poor po intake but currently on BIPAP and not stable for PEG placement NGTF on hold per pulm Subjective ROS Limited/Unobtainable: No Allergies: Coded Allergies: SHELLFISH DERIVED (Verified Allergy, Unknown, swelling and itchiness, 05/14) Subjective skin rash Objective Last 24 Hour Vital Signs Date Time Temp Pulse Resp B/P (MAP) Pulse Ox O2 Delivery O2 Flow Rate FiO2 06/20/18 09:39 94 06/20/18 09:18 89 21 30 06/20/18 09:12 85 132/75 06/20/18 09:11 85 132/75 06/20/18 08:00 Mechanical Ventilator 06/20/18 08:00 40 06/20/18 08:00 100.0 95 20 133/73 (93) 95 06/20/18 07:26 81 20 30 06/20/18 06:21 147/85 06/20/18 05:30 99 26 30 06/20/18 04:00 100 06/20/18 04:00 40 06/20/18 04:00 Mechanical Ventilator 06/20/18 04:00 98.0 96 20 111/56 (74) 100 06/20/18 03:30 94 22 30 06/20/18 01:28 92 22 30 06/20/18 00:00 101.0 100 16 129/79 (96) 100 06/20/18 00:00 40 06/20/18 00:00 Mechanical Ventilator 06/20/18 00:00 147/85 06/20/18 00:00 89 06/19/18 22:52 96 21 30 06/19/18 22:49 93 22 30 06/19/18 20:20 103 147/85 06/19/18 20:00 30 06/19/18 20:00 101.5 98 14 125/69 (87) 99 06/19/18 20:00 102 06/19/18 20:00 Mechanical Ventilator 06/19/18 19:42 97 20 30 06/19/18 18:13 99.3 06/19/18 17:42 103 147/85 06/19/18 17:11 95 22 30 06/19/18 16:00 30 06/19/18 16:00 101.2 103 18 147/65 (92) 96 06/19/18 16:00 96 06/19/18 16:00 Mechanical Ventilator 06/19/18 15:00 90 20 30 06/19/18 13:25 98 19 30 06/19/18 13:01 128/66 06/19/18 12:00 100.4 93 19 128/66 (86) 95 06/19/18 12:00 30 06/19/18 12:00 Mechanical Ventilator 06/19/18 12:00 98 06/19/18 11:07 87 19 30 Intake and Output 06/19/18 06/20/18 18:59 06:59 Intake Total 495 ml 540 ml Output Total 300 ml Balance 195 ml 540 ml Tube Feeding 495 ml 540 ml Output Urine Total 300 ml # Voids 1 Laboratory Tests 06/19/18 15:15: Arterial Blood pH 7.519H, Arterial Blood Partial Pressure CO2 28.0L, Arterial Blood Partial Pressure O2 64.7L, Arterial Blood HCO3 22.3, Arterial Blood Oxygen Saturation 92.8L, Arterial Blood Base Excess 0, Marlon Test Positive 06/20/18 03:26: Potassium Level 4.1, Pro-B-Type Natriuretic Peptide 79121R Height (Feet): 5 Height (Inches): 2.00 Weight (Pounds): 168 General Appearance: lethargic EENT: normal ENT inspection Neck: supple Cardiovascular: normal rate Respiratory/Chest: decreased breath sounds Abdomen: normal bowel sounds, non tender, soft Extremities: non-tender Neeraj Benito MD Jun 20, 2018 10:58
--- NOTE | 2018-06-20 11:21 | NUR ---
CASE MANAGEMENT: REVIEW 06/20/2018 SI:KETOACIDOSIS W/O COMA. SEVERE PROTEIN MALNUTRITION. T 100 HR 95 RR 20 B/P 133/73 SATS 95% ON MECH VENT FiO2 40 BNP 26275 IS: NORVASC PO BID ASA PO QD PREVACID GT QD VANCO IV X1 LOPRESSOR PO Q12H STEP DOWN UNIT PLAN OF CARE: CXR BLOOD CX
[2018-06-20] MEDS ORDERED: Sterile Water Irrig 1000ml IRRIG ONE ×2 (11:41→17:29)
[2018-06-20 12:00] VITALS: BP_SYST 125; BP_SYST 143; BP_DIAS 63; BP_DIAS 71
[2018-06-20] MEDS ORDERED: Vancomycin 1.5gm Premix IVPB ONE (12:00)
[2018-06-20] MEDS: Levofloxacin 750mg tab GT SCH (12:51)
--- NOTE | 2018-06-20 14:11 | General Progress Note ---
Assessment/Plan Problem List: (1) Hyperglycemia ICD Codes: R73.9 - Hyperglycemia, unspecified SNOMED: 25675994 (2) Hyperkalemia ICD Codes: E87.5 - Hyperkalemia SNOMED: 24448705, 879012319 (3) Elevated brain natriuretic peptide (BNP) level ICD Codes: R79.89 - Other specified abnormal findings of blood chemistry SNOMED: 197725229, 818855686 (4) DKA (diabetic ketoacidosis) ICD Codes: E13.10 - Other specified diabetes mellitus with ketoacidosis without coma SNOMED: 460662741, 28937394 Qualifiers: Qualified Codes: E10.10 - Type 1 diabetes mellitus with ketoacidosis without coma (5) Pancreatitis ICD Codes: K85.90 - Acute pancreatitis without necrosis or infection, unspecified SNOMED: 08976209 Qualifiers: Qualified Codes: K85.90 - Acute pancreatitis without necrosis or infection, unspecified (6) Renal failure ICD Codes: N19 - Unspecified kidney failure SNOMED: 22004481 Qualifiers: Qualified Codes: N17.9 - Acute kidney failure, unspecified (7) Sepsis ICD Codes: A41.9 - Sepsis, unspecified organism SNOMED: 61375979 Qualifiers: Qualified Codes: A41.9 - Sepsis, unspecified organism (8) UTI (urinary tract infection) ICD Codes: N39.0 - Urinary tract infection, site not specified SNOMED: 20950948 Qualifiers: Qualified Codes: N39.0 - Urinary tract infection, site not specified (9) Diabetes ICD Codes: E11.9 - Type 2 diabetes mellitus without complications SNOMED: 70358595 (10) Shortness of breath ICD Codes: R06.02 - Shortness of breath SNOMED: 465371085 (11) Pneumonia ICD Codes: J18.9 - Pneumonia, unspecified organism SNOMED: 674125312 (12) HTN (hypertension) ICD Codes: I10 - Essential (primary) hypertension SNOMED: 24704363 (13) Acute metabolic encephalopathy ICD Codes: G93.41 - Metabolic encephalopathy SNOMED: 55354378, 884447938 (14) Anemia ICD Codes: D64.9 - Anemia, unspecified SNOMED: 780795471 (15) Respiratory insufficiency ICD Codes: R06.89 - Other abnormalities of breathing SNOMED: 600474431 Assessment/Plan cont vent support resp rx gt feeds suctioning as needed follow up cultures and cxr abx per id replace lytes dvt/stress ulcer prophylaxis monitor bs Subjective ROS Limited/Unobtainable: No Constitutional: Reports: malaise, weakness HEENT: Reports: no symptoms Cardiovascular: Reports: no symptoms Respiratory: Reports: shortness of breath Gastrointestinal/Abdominal: Reports: no symptoms Genitourinary: Reports: no symptoms Neurologic/Psychiatric: Reports: anxiety Endocrine: Reports: no symptoms Hematologic/Lymphatic: Reports: no symptoms Allergies: Coded Allergies: SHELLFISH DERIVED (Verified Allergy, Unknown, swelling and itchiness, 05/14) All Systems: reviewed and negative except above Subjective no events. on the vent. awake. follows simple commands. denies cp/sob. some congestion anxious. ID noted. low grade temps. re-cultured Objective Last 24 Hour Vital Signs Date Time Temp Pulse Resp B/P (MAP) Pulse Ox O2 Delivery O2 Flow Rate FiO2 06/20/18 13:27 76 20 30 06/20/18 12:51 147/84 06/20/18 12:00 40 06/20/18 12:00 Mechanical Ventilator 06/20/18 12:00 95 06/20/18 10:30 88 19 30 06/20/18 09:39 50 06/20/18 09:39 94 06/20/18 09:18 89 21 30 06/20/18 09:12 85 132/75 06/20/18 09:11 85 132/75 06/20/18 08:00 Mechanical Ventilator 06/20/18 08:00 40 06/20/18 08:00 93 06/20/18 08:00 100.0 95 20 133/73 (93) 95 06/20/18 07:26 81 20 30 06/20/18 06:21 147/85 06/20/18 05:30 99 26 30 06/20/18 04:00 100 06/20/18 04:00 40 06/20/18 04:00 Mechanical Ventilator 06/20/18 04:00 98.0 96 20 111/56 (74) 100 06/20/18 03:30 94 22 30 06/20/18 01:28 92 22 30 06/20/18 00:00 101.0 100 16 129/79 (96) 100 06/20/18 00:00 40 06/20/18 00:00 Mechanical Ventilator 06/20/18 00:00 147/85 06/20/18 00:00 89 06/19/18 22:52 96 21 30 06/19/18 22:49 93 22 30 06/19/18 20:20 103 147/85 06/19/18 20:00 30 06/19/18 20:00 101.5 98 14 125/69 (87) 99 06/19/18 20:00 102 06/19/18 20:00 Mechanical Ventilator 06/19/18 19:42 97 20 30 06/19/18 18:13 99.3 06/19/18 17:42 103 147/85 06/19/18 17:11 95 22 30 06/19/18 16:00 30 06/19/18 16:00 101.2 103 18 147/65 (92) 96 06/19/18 16:00 96 06/19/18 16:00 Mechanical Ventilator 06/19/18 15:00 90 20 30 Intake and Output 06/19/18 06/20/18 19:00 07:00 Intake Total 540 ml 540 ml Output Total 300 ml Balance 240 ml 540 ml Tube Feeding 540 ml 540 ml Output Urine Total 300 ml # Voids 1 Laboratory Tests 06/19/18 15:15: Arterial Blood pH 7.519H, Arterial Blood Partial Pressure CO2 28.0L, Arterial Blood Partial Pressure O2 64.7L, Arterial Blood HCO3 22.3, Arterial Blood Oxygen Saturation 92.8L, Arterial Blood Base Excess 0, Marlon Test Positive 06/20/18 03:26: Potassium Level 4.1, Pro-B-Type Natriuretic Peptide 00022Q Height (Feet): 5 Height (Inches): 2.00 Weight (Pounds): 168 Objective General Appearance: WD/WN, confused Neck: supple Cardiovascular: normal rate, regular rhythm Respiratory/Chest: rhonchi - bilaterally Abdomen: normal bowel sounds, non tender, soft, no organomegaly Edema: mild edema Neurologic: alert, responsive, disoriented See Atwood MD Jun 20, 2018 14:11
[2018-06-20 15:54] LABS: APPEARANCE,URINE CLEAR; BILIRUBIN, URINE NEGATIVE (NEGATIVE); GLUCOSE, URINE (UA) NEGATIVE (NEGATIVE); KETONES,URINE 1+ (NEGATIVE); LEUKOCYTE ESTERASE ,URINE 1+ (NEGATIVE); NITRITE,URINE NEGATIVE (NEGATIVE); PH,URINE 5 (4.5-8.0); PROTEIN,URINE 3+ (NEGATIVE); UROBILINOGEN,URINE NORMAL MG/DL (0.0-1.0)
[2018-06-20 15:55] LABS: COLOR,URINE YELLOW
[2018-06-20 16:00] VITALS: BP 112/63
[2018-06-20] MEDS ORDERED: NS 275ml ONE (17:29)
--- NOTE | 2018-06-20 19:05 | NUR ---
NURSE NOTES: Report received from WAYNE Navarrete. Pt A/Ox3-4. case monitor shows A.Fib. Pt ventilator dependent with florin rothman 8. Ventilator settings: AC12 VT:500, FiO2:30. Tolerating settings well. Shows no signs of cardiac or respiratory distress. Pt has a GT in place with glucerna 1.5 running @ 45 ml/hr. Rectal tube present and draining well. Purewick used for excretion and suctioning well. Pt has a OMAR PICC, asymptomatic and patent. Restraints present due to pulling of lines. Skin is intact. No signs of breakdown, swelling or redness. Bed in lowest position, bed alarms placed. Call light within reach. Will continue to monitor and with patients plan of care.
--- NOTE | 2018-06-20 19:26 | NUR ---
HAND-OFF: Report given to WAYNE Guevara.
[2018-06-20 20:00] VITALS: BP 122/70
[2018-06-20] MEDS: OLANZapine 2.5mg tab ORAL SCH (20:38)
[2018-06-20] MEDS: Dyna-Hex 2% Top Sol 2oz TOPIC SCH (20:38)
--- NOTE | 2018-06-20 20:42 | Cardiology Progress Note ---
Assessment/Plan Assessment/Plan 1. Paroxysmal atrial fibrillation, in sinus rhythm now, due to CHADS-VASC score of 5, continue enoxaparin and metoprolol. 2. Hx of CAD, s/p CABG, ASA , atorvastatin and metoprolol. 3. Acute heart failure with normal EF, lasix spot dose 20mg IVP times one dose, with KCL, BNP in am. 4. DM with DKA on admission. 5. HTN, well controlled, continue amlodipine, metoprolol and hydralazine. 6. Severe pulmonary HTN. 7. CKD Subjective Subjective Sinus rhythm at rate of 90. On full face mask oxygen, FiO2 30%. Objective Last 24 Hour Vital Signs Date Time Temp Pulse Resp B/P (MAP) Pulse Ox O2 Delivery O2 Flow Rate FiO2 06/20/18 20:39 90 122/70 06/20/18 20:36 86 17 30 06/20/18 19:35 88 16 30 06/20/18 17:56 112/63 06/20/18 17:55 91 112/63 06/20/18 17:08 95 18 30 06/20/18 16:00 105 06/20/18 16:00 99.3 85 21 112/63 (79) 100 06/20/18 16:00 Mechanical Ventilator 06/20/18 16:00 40 06/20/18 15:18 90 21 30 06/20/18 13:27 76 20 30 06/20/18 12:51 147/84 06/20/18 12:00 99.2 96 22 143/71 (95) 98 06/20/18 12:00 40 06/20/18 12:00 Mechanical Ventilator 06/20/18 12:00 95 06/20/18 10:30 88 19 30 06/20/18 09:39 50 06/20/18 09:39 94 06/20/18 09:18 89 21 30 06/20/18 09:12 85 132/75 06/20/18 09:11 85 132/75 06/20/18 08:00 Mechanical Ventilator 06/20/18 08:00 40 06/20/18 08:00 93 06/20/18 08:00 100.0 95 20 133/73 (93) 95 06/20/18 07:26 81 20 30 06/20/18 06:21 147/85 06/20/18 05:30 99 26 30 06/20/18 04:00 100 06/20/18 04:00 40 06/20/18 04:00 Mechanical Ventilator 06/20/18 04:00 98.0 96 20 111/56 (74) 100 06/20/18 03:30 94 22 30 06/20/18 01:28 92 22 30 06/20/18 00:00 101.0 100 16 129/79 (96) 100 06/20/18 00:00 40 06/20/18 00:00 Mechanical Ventilator 06/20/18 00:00 147/85 06/20/18 00:00 89 06/19/18 22:52 96 21 30 06/19/18 22:49 93 22 30 Intake and Output 06/19/18 06/20/18 19:00 07:00 Intake Total 540 ml 540 ml Output Total 300 ml Balance 240 ml 540 ml Tube Feeding 540 ml 540 ml Output Urine Total 300 ml # Voids 1 2D Echo: EF55%,Mild LVH,Mod MR,Mild AR,RVSP 67 mmHg (severe PHT),Restrictive LV phy Laboratory Tests Test 06/20/18 03:26 06/20/18 15:30 Potassium Level 4.1 MMOL/L (3.5-5.1) Pro-B-Type Natriuretic Peptide 56102 pg/mL (0-125) H Urine Color Yellow Urine Appearance Clear Urine pH 5 (4.5-8.0) Urine Specific [place] 1.015 (1.005-1.035) Urine Protein 3+ (NEGATIVE) H Urine Glucose (UA) Negative (NEGATIVE) Urine Ketones 1+ (NEGATIVE) H Urine Blood 1+ (NEGATIVE) H Urine Nitrite Negative (NEGATIVE) Urine Bilirubin Negative (NEGATIVE) Urine Urobilinogen Normal MG/DL (0.0-1.0) Urine Leukocyte Esterase 1+ (NEGATIVE) H Urine RBC 0-2 /HPF (0 - 2) Urine WBC 2-4 /HPF (0 - 2) Urine Squamous Epithelial Cells Few /LPF (NONE/OCC) Urine Bacteria Few /HPF (NONE) Urine Yeast Moderate /HPF (NONE) H Microbiology Date/Time Source Procedure Growth Status 06/18/18 05:00 Stool Clostridium difficile Toxin Assay - Final Complete Objective HEENT: Normocephalic, atraumatic, Pupils equally reactive to light and accommodation, EOMI. NECK: No JVD, no carotid bruit. CARDIOVASCULAR: Regular rate and rhythm. No murmurs, gallops or rubs. LUNGS: Clear to auscultation bilaterally. No crackles or Rhonchi. ABDOMEN: Soft and nontender. No organomegaly, + BS. EXTREMITIES: No cyanosis, clubbing or edema. Miller Mckeon MD Jun 20, 2018 20:42
[2018-06-21] VITALS: BP 145/72
[2018-06-21] MEDS: NovoLOG Insulin Flexpen SUBQ SCH ×4 (01:41→18:11)
[2018-06-21] MEDS: HydrALAZINE 25mg tab ORAL SCH ×4 (01:42→18:00)
[2018-06-21 04:00] VITALS: BP 124/76
--- NOTE | 2018-06-21 06:00 | NUR ---
NURSE NOTES: Pt resting comfortably. Oral care provided throughout the night. VS remained stable. All needs were met.
[2018-06-21 06:08] LABS: BASOPHILS % (AUTO) 0.7 % (0.0-2.0); EOSINOPHILS % (AUTO) 0.9 % (0.0-3.0); HEMOGLOBIN 8.8 G/DL (12.0-16.0); LYMPHOCYTES % (AUTO) 7.7 % (20.0-45.0); MEAN CORPUSCULAR VOLUME 95 FL (80-99); MONOCYTES % (AUTO) 6.1 % (1.0-10.0); NEUTROPHILS % (AUTO) 84.6 % (45.0-75.0); PLATELET COUNT 200 K/UL (150-450); RED BLOOD COUNT 3.04 M/UL (4.20-5.40); RED CELL DISTRIBUTION WIDTH 21.5 % (11.6-14.8)
--- NOTE | 2018-06-21 07:46 | NUR ---
NURSE NOTES: Received report from Star Guevara RN. Patient awake in bed, oriented x 3, able to make needs known and follow commands. Trach to vent with settings of AC 12, TV 500, FiO2 50%, no PEEP, no s/s of respiratory distress noted. GT feeding of Glucerna 1.5 running @ 45 cc/hr, no residuals noted. HoB elevated. Rectal tube in place. Female external catheter in place and attached to low, continuous suction. Left upper arm PICC patent and asymptomatic. Bilateral wrist restraints in place, skin intact, peripheral pulses present, no edema or redness noted. Bed locked in lowest position with side rails up x 3. All needs attended to. Call light within reach. Will continue to monitor.
[2018-06-21 08:00] VITALS: BP 137/73
--- NOTE | 2018-06-21 08:04 | General Progress Note ---
Assessment/Plan Assessment/Plan Impression Diabetic ketoacidosis Anemia Transaminitis of unclear etiology Severe protein calorie malnutrition Evidence of pancreatitis, better Acute renal failure, improved Hyperglycemia Diabetes Hyponatremia Metabolic acidosis Hypercholesterolemia fever oral ulcers afib with RVR leukopenia pancreatitis CVA pleural effusions pulmonary edema trach GT PLAN nutrition check cxr vent for now suction monitor with noted desaturation impression, plan, and exam edited and reviewed in detail care discussed with RN Subjective Allergies: Coded Allergies: SHELLFISH DERIVED (Verified Allergy, Unknown, swelling and itchiness, 05/14) Subjective care noted gt and trach in place has more congestion Objective Last 24 Hour Vital Signs Date Time Temp Pulse Resp B/P (MAP) Pulse Ox O2 Delivery O2 Flow Rate FiO2 06/21/18 06:50 91 17 50 06/21/18 05:56 124/76 06/21/18 04:47 86 21 50 06/21/18 04:00 98.7 85 19 124/76 (92) 97 06/21/18 04:00 87 06/21/18 04:00 50 06/21/18 04:00 Mechanical Ventilator 06/21/18 02:48 85 17 50 06/21/18 01:42 145/72 06/21/18 01:06 84 18 50 06/21/18 00:00 Mechanical Ventilator 06/21/18 00:00 98.5 88 17 145/72 (96) 100 06/21/18 00:00 87 06/21/18 00:00 50 06/20/18 22:45 88 19 50 06/20/18 20:39 90 122/70 06/20/18 20:36 86 17 30 06/20/18 20:00 99.2 88 20 122/70 (87) 100 06/20/18 20:00 50 06/20/18 20:00 93 06/20/18 20:00 Mechanical Ventilator 06/20/18 19:35 88 16 30 06/20/18 17:56 112/63 06/20/18 17:55 91 112/63 06/20/18 17:08 95 18 30 06/20/18 16:00 105 06/20/18 16:00 99.3 85 21 112/63 (79) 100 06/20/18 16:00 Mechanical Ventilator 06/20/18 16:00 40 06/20/18 15:18 90 21 30 06/20/18 13:27 76 20 30 06/20/18 12:51 147/84 06/20/18 12:00 99.2 96 22 143/71 (95) 98 06/20/18 12:00 40 06/20/18 12:00 Mechanical Ventilator 06/20/18 12:00 95 06/20/18 10:30 88 19 30 06/20/18 09:39 50 06/20/18 09:39 94 06/20/18 09:18 89 21 30 06/20/18 09:12 85 132/75 06/20/18 09:11 85 132/75 Intake and Output 06/20/18 06/21/18 19:00 07:00 Intake Total 45 ml 550 ml Balance 45 ml 550 ml Free Water 100 ml Tube Feeding 45 ml 450 ml Laboratory Tests 06/20/18 15:30: Urine Color Yellow, Urine Appearance Clear, Urine pH 5, Urine Specific [place] 1.015, Urine Protein 3+H, Urine Glucose (UA) Negative, Urine Ketones 1+H, Urine Blood 1+H, Urine Nitrite Negative, Urine Bilirubin Negative, Urine Urobilinogen Normal, Urine Leukocyte Esterase 1+H, Urine RBC 0-2, Urine WBC 2-4, Urine Squamous Epithelial Cells Few, Urine Bacteria Few, Urine Yeast ModerateH 06/21/18 04:30: White Blood Count 11.0H, Red Blood Count 3.04L, Hemoglobin 8.8L, Hematocrit 29.0L, Mean Corpuscular Volume 95, Mean Corpuscular Hemoglobin 28.8, Mean Corpuscular Hemoglobin Concent 30.3L, Red Cell Distribution Width 21.5H, Platelet Count 200, Mean Platelet Volume 7.2, Neutrophils (%) (Auto) 84.6H, Lymphocytes (%) (Auto) 7.7L, Monocytes (%) (Auto) 6.1, Eosinophils (%) (Auto) 0.9, Basophils (%) (Auto) 0.7 Height (Feet): 5 Height (Inches): 2.00 Weight (Pounds): 167 Objective WDWN on trach reduced breath sounds bilaterally without rhonchi or wheeze S1S2 RRR without MRG NABS nontender no HSM; GT in place no CCE weak Jesus Lew MD Jun 21, 2018 08:04
[2018-06-21] MEDS: Aspirin Baby 81mg ORAL SCH (09:43)
[2018-06-21] MEDS: Metoprolol Tartrate 50mg tab ORAL SCH ×2 (09:43→20:44)
[2018-06-21] MEDS: Enoxaparin 80mg Inj SUBQ SCH (09:44)
[2018-06-21] MEDS: Miconazole 2% Cream 30gm TOPIC SCH ×2 (09:45→18:10)
--- NOTE | 2018-06-21 10:51 | Infectious Diseases Prog Note ---
"Assessment/Plan Assessment/Plan antibiotics : vancomycin iv, levoquin A 1. klebsiella | streptococcus pneumonia 2. herpes of lip s/p rx 3. diabetic ketoacidosis resolved 4. respiratory failure s/p tracheostomy 5. hypertension 6. leucocytosis 7. renal failure P 1. continue iv vancomycin, po levoquin 2. will follow up cultures Subjective ROS Limited/Unobtainable: Yes Allergies: Coded Allergies: SHELLFISH DERIVED (Verified Allergy, Unknown, swelling and itchiness, 05/14) Objective Vital Signs Last 24 Hour Vital Signs Date Time Temp Pulse Resp B/P (MAP) Pulse Ox O2 Delivery O2 Flow Rate FiO2 06/21/18 09:43 99 137/73 06/21/18 09:43 99 137/73 06/21/18 08:41 99 22 50 06/21/18 08:30 95 06/21/18 08:00 98.2 83 16 137/73 (94) 99 06/21/18 08:00 50 06/21/18 07:21 82 06/21/18 06:50 91 17 50 06/21/18 05:56 124/76 06/21/18 04:47 86 21 50 06/21/18 04:00 98.7 85 19 124/76 (92) 97 06/21/18 04:00 87 06/21/18 04:00 50 06/21/18 04:00 Mechanical Ventilator 06/21/18 02:48 85 17 50 06/21/18 01:42 145/72 06/21/18 01:06 84 18 50 06/21/18 00:00 Mechanical Ventilator 06/21/18 00:00 98.5 88 17 145/72 (96) 100 06/21/18 00:00 87 06/21/18 00:00 50 06/20/18 22:45 88 19 50 06/20/18 20:39 90 122/70 06/20/18 20:36 86 17 30 06/20/18 20:00 99.2 88 20 122/70 (87) 100 06/20/18 20:00 50 06/20/18 20:00 93 06/20/18 20:00 Mechanical Ventilator 06/20/18 19:35 88 16 30 06/20/18 17:56 112/63 06/20/18 17:55 91 112/63 06/20/18 17:08 95 18 30 06/20/18 16:00 105 06/20/18 16:00 99.3 85 21 112/63 (79) 100 06/20/18 16:00 Mechanical Ventilator 06/20/18 16:00 40 06/20/18 15:18 90 21 30 06/20/18 13:27 76 20 30 06/20/18 12:51 147/84 06/20/18 12:00 99.2 96 22 143/71 (95) 98 06/20/18 12:00 40 06/20/18 12:00 Mechanical Ventilator 06/20/18 12:00 95 Height (Feet): 5 Height (Inches): 2.00 Weight (Pounds): 167 HEENT: status post trach Respiratory/Chest: lungs clear Cardiovascular: normal rate, regular rhythm, no gallop/murmur Abdomen: soft, non tender, other - GT Extremities: other - + edema Microbiology Date/Time Source Procedure Growth Status 06/20/18 15:30 Indwelling Cath Urine Culture - Preliminary NO GROWTH Resulted Laboratory Tests Test 06/20/18 15:30 06/21/18 04:30 Urine Color Yellow Urine Appearance Clear Urine pH 5 (4.5-8.0) Urine Specific [place] 1.015 (1.005-1.035) Urine Protein 3+ (NEGATIVE) H Urine Glucose (UA) Negative (NEGATIVE) Urine Ketones 1+ (NEGATIVE) H Urine Blood 1+ (NEGATIVE) H Urine Nitrite Negative (NEGATIVE) Urine Bilirubin Negative (NEGATIVE) Urine Urobilinogen Normal MG/DL (0.0-1.0) Urine Leukocyte Esterase 1+ (NEGATIVE) H Urine RBC 0-2 /HPF (0 - 2) Urine WBC 2-4 /HPF (0 - 2) Urine Squamous Epithelial Cells Few /LPF (NONE/OCC) Urine Bacteria Few /HPF (NONE) Urine Yeast Moderate /HPF (NONE) H White Blood Count 11.0 K/UL (4.8-10.8) H Red Blood Count 3.04 M/UL (4.20-5.40) L Hemoglobin 8.8 G/DL (12.0-16.0) L Hematocrit 29.0 % (37.0-47.0) L Mean Corpuscular Volume 95 FL (80-99) Mean Corpuscular Hemoglobin 28.8 PG (27.0-31.0) Mean Corpuscular Hemoglobin Concent 30.3 G/DL (32.0-36.0) L Red Cell Distribution Width 21.5 % (11.6-14.8) H Platelet Count 200 K/UL (150-450) Mean Platelet Volume 7.2 FL (6.5-10.1) Neutrophils (%) (Auto) 84.6 % (45.0-75.0) H Lymphocytes (%) (Auto) 7.7 % (20.0-45.0) L Monocytes (%) (Auto) 6.1 % (1.0-10.0) Eosinophils (%) (Auto) 0.9 % (0.0-3.0) Basophils (%) (Auto) 0.7 % (0.0-2.0) Current Medications Medications (Trade) Dose Ordered Sig/Ellen Route PRN Reason Start Time Stop Time Status Last Admin Dose Admin Acetaminophen (Tylenol) 650 mg Q4H PRN GT Mild Pain/Temp > 100.5 06/19/18 13:45 07/19/18 13:44 06/19/18 17:43 Al Hydroxide/Mg Hydroxide (Mylanta) 30 ml Q6H PRN ORAL Abdominal cramps 06/19/18 03:14 07/02/18 03:13 Amlodipine Besylate (Norvasc) 5 mg BID ORAL 06/19/18 09:00 06/28/18 08:59 06/21/18 09:43 Aspirin (ASA) 81 mg DAILY ORAL 06/19/18 09:00 06/24/18 08:59 06/21/18 09:43 Chlorhexidine Gluconate (Leora-Hex 2%) 1 applic DAILY@1999 TOPIC 06/19/18 20:00 06/24/18 19:59 06/20/18 20:38 Enoxaparin Sodium (Lovenox) 80 mg Q24H SUBQ 06/19/18 09:00 07/03/18 08:59 06/21/18 09:44 Haloperidol Lactate (Haldol) 5 mg Q6H PRN IM Agitation 06/19/18 03:14 07/02/18 03:13 Hydralazine HCl (Apresoline) 25 mg Q6HR ORAL 06/19/18 06:00 07/02/18 00:00 06/21/18 05:56 Insulin Aspart (NovoLOG) Q6HR SUBQ 06/19/18 06:00 07/08/18 16:29 06/21/18 05:57 Lansoprazole (Prevacid) 30 mg DAILY GT 06/19/18 09:00 07/11/18 08:59 06/21/18 09:43 Levofloxacin (Levaquin) 750 mg Q48H GT 06/20/18 12:00 06/27/18 11:59 06/20/18 12:51 Magnesium Hydroxide (Mom) 30 ml DAILYPRN PRN ORAL Constipation 06/19/18 03:14 07/02/18 03:13 Metoprolol Tartrate (Lopressor) 5 mg Q2H PRN IVP For High Blood Pressure 06/19/18 03:14 06/23/18 03:13 Metoprolol Tartrate (Lopressor) 50 mg Q12HR ORAL 06/19/18 09:00 06/26/18 20:59 06/21/18 09:43 Miconazole Nitrate (Miconazole Nitrate) 1 applic BID TOPIC 06/19/18 09:00 07/09/18 18:29 06/21/18 09:45 Olanzapine (ZyPREXA) 2.5 mg BEDTIME ORAL 06/19/18 21:00 07/01/18 20:59 06/20/18 20:38 Vancomycin HCl (Vanco rx to dose) 1 ea DAILY PRN MISC Per rx protocol 06/20/18 10:15 07/20/18 10:14 Khadra Melendez MD Jun 21, 2018 10:51"
--- NOTE | 2018-06-21 11:03 | NUR ---
RD ASSESSMENT & RECOMMENDATIONS SEE CARE ACTIVITY FOR COMPLETE ASSESSMENT DAILY ESTIMATED NEEDS: Needs based on DM, cardiac, critical care/ 54kg abw 22-28 kcals/kg 1414-8179 total kcals 1.2-2 g protein/kg 65-108 g total protein 25-30 mL/kg 3373-9821 total fluid mLs NUTRITION DIAGNOSIS: 1) Altered nutrition related lab values R/T diabetes, clinical condition as evidenced by A1C 11.4, increased from 8.1 in August 2017, DKA w/ adm FS=665-> 230 209 improved, elev BNP (11788), elev creat (1.7), elev LFTs, trending back down, elev lipase (>2000 -> 554 trend down). 2) Swallowing difficulty R/T dysphagia, h/o old CVA + subacute CVA, decreased alertness, respiratory status as evidenced by pt is now s/p trach and s/p PEG placement.(UPDATED) CURRENT TF: Glucerna 1.5 @ 45ml/hr x 24 hrs ENTERAL NUTRITION RECOMMENDATIONS: Glucerna 1.5 @ 42ml/hr x 24 hrs to provide 1008ml, 1512kcal, 83g prot, 765ml free water * Resume TF when medically appropriate - rec to lower TF goal rate to -->> 42ml/hr. * At goal meets 100% est kcal and prot needs * HOB over 30 degrees/ water flush per MD ADDITIONAL RECOMMENDATIONS: 1) RE-calibrated bed wt for accurate CBW 2) TF recs as above as medically appropriate 3) Consider long acting insulin for improved BG control 4) Monitor lytes closely, replete as needed rec to check f/up phos and mag . .
--- NOTE | 2018-06-21 11:18 | Diagnostic Imaging Report ---
Indication: Shortness of Technique: One view of the chest Comparison: June 17, 2017 Findings: Interstitial and airspace edema, cardiomegaly, likely small bilateral pleural effusions persist, may be slightly increased. Tracheostomy, left arm PICC remain Impression: Persistent and perhaps slightly increased interstitial congestion, over 3 days. Other stable findings as described
--- NOTE | 2018-06-21 11:32 | NUR ---
Organizational ConsultantConduit Installer SI:RESP FAILURE S/P TRACH/VENT DEPENDENT VS: BP 137/73, P 99, Temp. 98.2, Resp. 22, SpO2 95 FIO2 50 WBC 11, Neut% 84.6, Urine Blood 1+, Urine Ketones 1+, Urine Protein 3+ CXR Impression: Persistent and perhaps slightly increased interstitial congestion, over 3 days. IS:Levofloxacin Vancomycin HCI IVPB SDU Status
[2018-06-21 12:00] VITALS: BP 128/68
[2018-06-21 16:00] VITALS: BP 109/57
--- NOTE | 2018-06-21 18:46 | NUR ---
INSURANCE CLINICAL REVIEWS FAXED TO [facility] [phone] FAX CLINICALS [phone]
--- NOTE | 2018-06-21 19:12 | NUR ---
HAND-OFF: Report given to Colten New RN.
--- NOTE | 2018-06-21 19:14 | General Progress Note ---
Assessment/Plan Assessment/Plan Assessment - Respiratory failure - Acute pancreatitis - Anemia - Leukocytosis - dysphagia - s/p PEG - Azotemia - Urolithiasis - UTI - Cholelithiasis - DM - CAD/CABG - Gout - elevated alk phos Recommendations - Pulmonary care - Tube feeds - follow labs and exam - elevate HOB Subjective Allergies: Coded Allergies: SHELLFISH DERIVED (Verified Allergy, Unknown, swelling and itchiness, 05/14) Subjective above noted tolerating TF Objective Last 24 Hour Vital Signs Date Time Temp Pulse Resp B/P (MAP) Pulse Ox O2 Delivery O2 Flow Rate FiO2 06/21/18 18:00 109/57 06/21/18 18:00 80 109/57 06/21/18 17:01 96 17 45 06/21/18 16:00 99.0 80 22 109/57 (74) 100 06/21/18 16:00 50 06/21/18 16:00 Mechanical Ventilator 06/21/18 15:43 80 06/21/18 15:21 95 17 45 06/21/18 13:00 79 19 45 06/21/18 12:27 128/68 06/21/18 12:00 93 06/21/18 12:00 Mechanical Ventilator 06/21/18 12:00 50 06/21/18 12:00 98.2 80 16 128/68 (88) 94 06/21/18 10:30 90 18 45 06/21/18 09:43 99 137/73 06/21/18 09:43 99 137/73 06/21/18 08:41 99 22 50 06/21/18 08:30 95 06/21/18 08:00 98.2 83 16 137/73 (94) 99 06/21/18 08:00 Mechanical Ventilator 06/21/18 08:00 50 06/21/18 07:21 82 06/21/18 06:50 91 17 50 06/21/18 05:56 124/76 06/21/18 04:47 86 21 50 06/21/18 04:00 98.7 85 19 124/76 (92) 97 06/21/18 04:00 87 06/21/18 04:00 50 06/21/18 04:00 Mechanical Ventilator 06/21/18 02:48 85 17 50 06/21/18 01:42 145/72 3/4/19 01:06 84 18 50 06/21/18 00:00 Mechanical Ventilator 06/21/18 00:00 98.5 88 17 145/72 (96) 100 06/21/18 00:00 87 06/21/18 00:00 50 06/20/18 22:45 88 19 50 06/20/18 20:39 90 122/70 06/20/18 20:36 86 17 30 06/20/18 20:00 99.2 88 20 122/70 (87) 100 06/20/18 20:00 50 06/20/18 20:00 93 06/20/18 20:00 Mechanical Ventilator 06/20/18 19:35 88 16 30 Intake and Output 06/20/18 06/21/18 19:00 07:00 Intake Total 45 ml 595 ml Balance 45 ml 595 ml Free Water 100 ml Tube Feeding 45 ml 495 ml Laboratory Tests 06/21/18 04:30: White Blood Count 11.0H, Red Blood Count 3.04L, Hemoglobin 8.8L, Hematocrit 29.0L, Mean Corpuscular Volume 95, Mean Corpuscular Hemoglobin 28.8, Mean Corpuscular Hemoglobin Concent 30.3L, Red Cell Distribution Width 21.5H, Platelet Count 200, Mean Platelet Volume 7.2, Neutrophils (%) (Auto) 84.6H, Lymphocytes (%) (Auto) 7.7L, Monocytes (%) (Auto) 6.1, Eosinophils (%) (Auto) 0.9, Basophils (%) (Auto) 0.7 Height (Feet): 5 Height (Inches): 2.00 Weight (Pounds): 167 Objective WDWN NCAT Neck supple Coarse BS RRR abd soft, ND, (+) GT restrained, confused Mary Jewell MD Jun 21, 2018 19:14
--- NOTE | 2018-06-21 19:30 | NUR ---
NURSE NOTES: Received Pt is resting on the bed and awake and forgetful. Trach to Vent dependent setting with AC: 12, T: 500, P:0, FiO2 50% and SaO2 100% noted. Given oral tracheal suction. Provided oral care. On G-tube feeding with Glucerna 1.2 @45cc/hr and tolerated well. no residual noted. On rectal tube and patent. Changed position. Lt.upper arm PICC line area dressing is dry and intact no sign of infiltration noted. Placed fall precaution. Will continue to care plan.
--- NOTE | 2018-06-21 19:53 | Cardiology Progress Note ---
Assessment/Plan Assessment/Plan 1. Paroxysmal atrial fibrillation, in sinus rhythm now, due to CHADS-VASC score of 5, continue enoxaparin and metoprolol. 2. Hx of CAD, s/p CABG, ASA , atorvastatin and metoprolol. 3. Acute heart failure with normal EF, continue spot doses of lasix. 4. DM with DKA on admission. 5. HTN, well controlled, continue amlodipine, metoprolol and hydralazine. 6. Severe pulmonary HTN. 7. CKD Subjective Subjective Sinus rhythm at rate of 90. Intubated on FiO2 of 45%. Objective Last 24 Hour Vital Signs Date Time Temp Pulse Resp B/P (MAP) Pulse Ox O2 Delivery O2 Flow Rate FiO2 06/21/18 19:12 90 15 45 06/21/18 18:00 109/57 06/21/18 18:00 80 109/57 06/21/18 17:01 96 17 45 06/21/18 16:00 99.0 80 22 109/57 (74) 100 06/21/18 16:00 50 06/21/18 16:00 Mechanical Ventilator 06/21/18 15:43 80 06/21/18 15:21 95 17 45 06/21/18 13:00 79 19 45 06/21/18 12:27 128/68 06/21/18 12:00 93 06/21/18 12:00 Mechanical Ventilator 06/21/18 12:00 50 06/21/18 12:00 98.2 80 16 128/68 (88) 94 06/21/18 10:30 90 18 45 06/21/18 09:43 99 137/73 06/21/18 09:43 99 137/73 06/21/18 08:41 99 22 50 06/21/18 08:30 95 06/21/18 08:00 98.2 83 16 137/73 (94) 99 06/21/18 08:00 Mechanical Ventilator 06/21/18 08:00 50 06/21/18 07:21 82 06/21/18 06:50 91 17 50 06/21/18 05:56 124/76 06/21/18 04:47 86 21 50 06/21/18 04:00 98.7 85 19 124/76 (92) 97 06/21/18 04:00 87 06/21/18 04:00 50 06/21/18 04:00 Mechanical Ventilator 06/21/18 02:48 85 17 50 06/21/18 01:42 145/72 06/21/18 01:06 84 18 50 06/21/18 00:00 Mechanical Ventilator 06/21/18 00:00 98.5 88 17 145/72 (96) 100 06/21/18 00:00 87 06/21/18 00:00 50 06/20/18 22:45 88 19 50 06/20/18 20:39 90 122/70 06/20/18 20:36 86 17 30 06/20/18 20:00 99.2 88 20 122/70 (87) 100 06/20/18 20:00 50 06/20/18 20:00 93 06/20/18 20:00 Mechanical Ventilator Intake and Output 06/20/18 06/21/18 19:00 07:00 Intake Total 45 ml 595 ml Balance 45 ml 595 ml Free Water 100 ml Tube Feeding 45 ml 495 ml 2D Echo: EF55%,Mild LVH,Mod MR,Mild AR,RVSP 67 mmHg (severe PHT),Restrictive LV phy Laboratory Tests Test 06/21/18 04:30 White Blood Count 11.0 K/UL (4.8-10.8) H Red Blood Count 3.04 M/UL (4.20-5.40) L Hemoglobin 8.8 G/DL (12.0-16.0) L Hematocrit 29.0 % (37.0-47.0) L Mean Corpuscular Volume 95 FL (80-99) Mean Corpuscular Hemoglobin 28.8 PG (27.0-31.0) Mean Corpuscular Hemoglobin Concent 30.3 G/DL (32.0-36.0) L Red Cell Distribution Width 21.5 % (11.6-14.8) H Platelet Count 200 K/UL (150-450) Mean Platelet Volume 7.2 FL (6.5-10.1) Neutrophils (%) (Auto) 84.6 % (45.0-75.0) H Lymphocytes (%) (Auto) 7.7 % (20.0-45.0) L Monocytes (%) (Auto) 6.1 % (1.0-10.0) Eosinophils (%) (Auto) 0.9 % (0.0-3.0) Basophils (%) (Auto) 0.7 % (0.0-2.0) Microbiology Date/Time Source Procedure Growth Status 06/20/18 15:30 Indwelling Cath Urine Culture - Preliminary NO GROWTH Resulted Objective HEENT: Normocephalic, atraumatic, Pupils equally reactive to light and accommodation, EOMI. NECK: No JVD, no carotid bruit. CARDIOVASCULAR: Regular rate and rhythm. No murmurs, gallops or rubs. LUNGS: Clear to auscultation bilaterally. No crackles or Rhonchi. ABDOMEN: Soft and nontender. No organomegaly, + BS. EXTREMITIES: No cyanosis, clubbing or edema. Miller Mckeon MD Jun 21, 2018 19:53
[2018-06-21 20:00] VITALS: BP 118/68
[2018-06-21] MEDS: Dyna-Hex 2% Top Sol 2oz TOPIC SCH (20:01)
[2018-06-21] MEDS: OLANZapine 2.5mg tab ORAL SCH (20:44)
--- NOTE | 2018-06-21 23:04 | General Progress Note ---
Assessment/Plan Assessment/Plan Assessment and Recs: # Pancytopenia -- appears that initial hep and hiv are negative though final results to follow, liver shows no major hsm or cirrhosis, may consider meds or bone marrow process, smear reviewed, does have low albumin, has been hospitalized for some time, in and out since 04/30/18. Hiv and hepatitis panels are both negative --> query meds, review with ID, is on micafungin now, monitor counts closely --> given hgb downtrending and some nucleated reds on smear, will send off a flow cytometry --> nepogen 300mcg sq to maintain anc >1500 --> wbc trend : 1.7-->4.3-->3.1-->3.4-->7.7-->8.1--12-->15-->11-->14.6-->9 # Anemia of chronic disease - monitor anemia panel --> hemolysis does not appear to be the case --> anemia panel reviewed and c/w acd --> hgb trend: 8.3-->9.2-->8.9-->8.7-->9-->7.7-->7--->8 # Paroxysmal atrial fibrillation, due to CHADS-VASC score of 5, we require to keep anticoagulated, on metoprolol --> continue on apixaban # Hx of CAD, s/p CABG, ASA , atorvastatin and metoprolol. No wall motion abnormalities on Echo. LVEF ~55%. --> appreciate cards recs # Sinus tachycardia due to hypovolemia, resolved. # DKA, resolved. --> continue monitor # DM, non-compliant with medications. # Hx of HTN, controlled with metoprolol. # pancreatitis -- appreciate gi recs # increased LFT The timing of this note does not necessarily reflect the time of the patient was seen. Greatly appreciate consultation! Subjective ROS Limited/Unobtainable: Yes Allergies: Coded Allergies: SHELLFISH DERIVED (Verified Allergy, Unknown, swelling and itchiness, 05/14) Subjective 05/18: Pt is awake and comfortable, no events, leukopenia improved, wbc 4.3, plt 151 05/19: seen by bedside, awake, comfortable, plt 122 05/20: Pt is awake and comfortable, no events 2: Pt is seen in the room, resting in bed, no fevers or chills, wbc 8.7, plt 117 2: Pt is resting in bed, awake, comfortable, no fevers or chills, no acute distress. 2: EGD and EUS done today, has no gallbladder stones, only pancreatitis, no events 2: no events, dermatitis has improved, off loading of heels, pancreatitis and dka better 2: Pt is awake, comfortable, no acute events overnight, hgb 8.6 05/27: seen by bedside, awake, comfortable, no events 05/28: resting in bed, awake, comfortable, no fevers or chills, no acute distress , No need for ERCP per GI, 05/31: Pt is awake and comfortable, no events 06/01: awake, comfortable, denies acute distress. 06/02: seen by bedside, awake, comfortable, no acute distress. wbc 15. 06/03: no acute events, denies any abdominal pain, wbc trending down at 11 today. 06/04: awake/drowsy in bed, breathing easily on nasal cannula, denies SOB and pain at this time. 06/06: anemia cotninues to worsen, may consider a bone marrow biopsy if patient approves 06/07: hgb 9.7, not eating well, remains lethargic 06/08: hgb is stable, respiratory status is worsened, and thus was transferred to the icu 06/09: seen by bedside,awake, comfortable, plan to insert NGT samanta 06/10: not eating well, remains lethargic 06/11: poor po intake but currently on BIPAP and not stable for PEG placement, NGTF on hold per pulm 06/13:Seen by bedside, less confused, on BIPAP, no events 06/14: seen by bedside, on BIPAP, NJT feeds, no events 06/15: On BIPAP, Less confused, NJT feeds started, no events 06/16: awake, comfortable, NJT in place, more alert, on BIPAP, agreed to trach 06/17: Trach done today, PEG scheduled for am, no acute distress 06/18: PEG placement done by Dr Jewell, tolerated well , tube feeding from tomorrow AM , no events, hgb 8.3 06/20: is in the sdu, no events, h/h relatively stable, s/p peg, tolerating feeds well 06/21: gt and trach in place, has more congestion, no events reported, cbc reviewed. Objective Last 24 Hour Vital Signs Date Time Temp Pulse Resp B/P (MAP) Pulse Ox O2 Delivery O2 Flow Rate FiO2 06/21/18 21:25 92 18 45 06/21/18 20:00 Mechanical Ventilator 06/21/18 20:00 87 06/21/18 20:00 50 06/21/18 20:00 99.6 97 22 118/68 (85) 100 06/21/18 19:12 90 15 45 06/21/18 18:00 109/57 06/21/18 18:00 80 109/57 06/21/18 17:01 96 17 45 06/21/18 16:00 99.0 80 22 109/57 (74) 100 06/21/18 16:00 50 06/21/18 16:00 Mechanical Ventilator 06/21/18 15:43 80 06/21/18 15:21 95 17 45 06/21/18 13:00 79 19 45 06/21/18 12:27 128/68 06/21/18 12:00 93 06/21/18 12:00 Mechanical Ventilator 06/21/18 12:00 50 06/21/18 12:00 98.2 80 16 128/68 (88) 94 06/21/18 10:30 90 18 45 06/21/18 09:43 99 137/73 06/21/18 09:43 99 137/73 06/21/18 08:41 99 22 50 06/21/18 08:30 95 06/21/18 08:00 98.2 83 16 137/73 (94) 99 06/21/18 08:00 Mechanical Ventilator 06/21/18 08:00 50 06/21/18 07:21 82 06/21/18 06:50 91 17 50 06/21/18 05:56 124/76 06/21/18 04:47 86 21 50 06/21/18 04:00 98.7 85 19 124/76 (92) 97 06/21/18 04:00 87 06/21/18 04:00 50 06/21/18 04:00 Mechanical Ventilator 06/21/18 02:48 85 17 50 06/21/18 01:42 145/72 06/21/18 01:06 84 18 50 06/21/18 00:00 Mechanical Ventilator 06/21/18 00:00 98.5 88 17 145/72 (96) 100 06/21/18 00:00 87 06/21/18 00:00 50 Intake and Output 06/20/18 06/21/18 19:00 07:00 Intake Total 45 ml 595 ml Balance 45 ml 595 ml Free Water 100 ml Tube Feeding 45 ml 495 ml Laboratory Tests 06/21/18 04:30: White Blood Count 11.0H, Red Blood Count 3.04L, Hemoglobin 8.8L, Hematocrit 29.0L, Mean Corpuscular Volume 95, Mean Corpuscular Hemoglobin 28.8, Mean Corpuscular Hemoglobin Concent 30.3L, Red Cell Distribution Width 21.5H, Platelet Count 200, Mean Platelet Volume 7.2, Neutrophils (%) (Auto) 84.6H, Lymphocytes (%) (Auto) 7.7L, Monocytes (%) (Auto) 6.1, Eosinophils (%) (Auto) 0.9, Basophils (%) (Auto) 0.7 Height (Feet): 5 Height (Inches): 2.00 Weight (Pounds): 167 Objective PHYSICAL EXAMINATION: GENERAL: Pleasant [place] woman, tired HEENT: Normocephalic and atraumatic. Sclerae anicteric. Oropharynx clear. NECK: Supple Trach++ CHEST: bilateral crackles and ++ nc CARDIOVASCULAR: Revealed regular rate. ABDOMEN: Soft. Good bowel sounds. PEG++ EXTREMITIES: Revealed no edema. Armando Bowen MD Jun 21, 2018 23:04
[2018-06-22] VITALS: BP 128/80
[2018-06-22] MEDS: HydrALAZINE 25mg tab ORAL SCH ×5 (00:02→23:26)
[2018-06-22] MEDS: NovoLOG Insulin Flexpen SUBQ SCH ×5 (00:03→23:27)
--- NOTE | 2018-06-22 01:17 | NUR ---
NURSE NOTES: Report received from WAYNE Walker. patient seen in bed in semi baires position on vent with previous setting. Patient is alert, able to make simple needs known, able to nod for yes and shake head for no. Denies any pain. ON GT feeding of glucerna 1.5 at 45cc/hr. GT site is intact. PICC line to left upper arm is intact. Purewick in place and is intact. Bed is in lowest position. Call light is within easy reach while in bed . Will continue to monitor,
--- NOTE | 2018-06-22 01:18 | NUR ---
HAND-OFF: Report given to WAYNE Austin. Pt is resting on the bed and no sign of acute distress noted.
[2018-06-22 04:00] VITALS: BP 113/65
[2018-06-22 04:33] LABS: BASOPHILS % (AUTO) 0.8 % (0.0-2.0); EOSINOPHILS % (AUTO) 2.8 % (0.0-3.0); HEMATOCRIT 26.2 % (37.0-47.0); HEMOGLOBIN 8.1 G/DL (12.0-16.0); MEAN CORPUSCULAR VOLUME 95 FL (80-99); MONOCYTES % (AUTO) 5.9 % (1.0-10.0); NEUTROPHILS % (AUTO) 81.6 % (45.0-75.0); PLATELET COUNT 215 K/UL (150-450); RED BLOOD COUNT 2.78 M/UL (4.20-5.40); RED CELL DISTRIBUTION WIDTH 21.8 % (11.6-14.8); WHITE BLOOD COUNT 8.7 K/UL (4.8-10.8)
[2018-06-22 04:49] LABS: ANION GAP 6 mmol/L (5-15); BLOOD UREA NITROGEN 37 mg/dL (7-18); CALCIUM 8.5 MG/DL (8.5-10.1); CARBON DIOXIDE 29 MMOL/L (21-32); CHLORIDE 112 MMOL/L (98-107); CREATININE 1.6 MG/DL (0.55-1.30); POTASSIUM 4.7 MMOL/L (3.5-5.1); SODIUM 147 MMOL/L (136-145)
[2018-06-22] MEDS ORDERED: Vancomycin 1.25gm Premix q24h IVPB SCH (06:00)
--- NOTE | 2018-06-22 07:16 | NUR ---
HAND-OFF: Report given to Marie Nguyen RN.
--- NOTE | 2018-06-22 07:30 | NUR ---
RESPIRATORY NOTE: Patient received mechanically ventilated on PB 840 with current ordered vent settings: AC 12-500ml-40%FiO2-no peep. Patient has trach size Shiley #8.0 cuffed that is secure with a trach tie and guard. There are bilateral diminished breath sounds noted upon auscultation. Sxn small amount to thin frothy white cheung secretions without incident. Vent alarms are functional and audible. There is am an ambu bag available at the bedside and the vent is connected to a red outlet. Patient appears comfortable at this time. No SOB or resp distress noted. Will continue to monitor.
[2018-06-22 08:00] VITALS: BP 135/77
--- NOTE | 2018-06-22 08:12 | General Progress Note ---
Assessment/Plan Assessment/Plan Impression Diabetic ketoacidosis Anemia Transaminitis of unclear etiology Severe protein calorie malnutrition Evidence of pancreatitis, better Acute renal failure, improved Hyperglycemia Diabetes Hyponatremia Metabolic acidosis Hypercholesterolemia fever oral ulcers afib with RVR leukopenia pancreatitis CVA pleural effusions pulmonary edema trach GT PLAN nutrition vent check cxr feeds suction monitor with noted desaturation subacute care impression, plan, and exam edited and reviewed in detail care discussed with RN Subjective ROS Limited/Unobtainable: Yes Allergies: Coded Allergies: SHELLFISH DERIVED (Verified Allergy, Unknown, swelling and itchiness, 05/14) Subjective care noted gt and trach in place transferred to [facility] Objective Last 24 Hour Vital Signs Date Time Temp Pulse Resp B/P (MAP) Pulse Ox O2 Delivery O2 Flow Rate FiO2 06/22/18 08:00 Mechanical Ventilator 06/22/18 08:00 50 06/22/18 07:30 92 17 40 06/22/18 05:18 130/80 06/22/18 05:12 84 18 40 06/22/18 04:06 102 06/22/18 04:00 Mechanical Ventilator 06/22/18 04:00 50 06/22/18 04:00 98.9 100 20 113/65 (81) 98 06/22/18 03:10 82 17 40 06/22/18 01:08 81 18 40 06/22/18 00:02 128/80 06/22/18 00:00 99.4 86 22 128/80 (96) 100 06/22/18 00:00 Mechanical Ventilator 06/22/18 00:00 87 06/21/18 23:05 81 17 45 06/21/18 21:25 92 18 45 06/21/18 20:00 Mechanical Ventilator 06/21/18 20:00 87 06/21/18 20:00 50 06/21/18 20:00 99.6 97 22 118/68 (85) 100 06/21/18 19:12 90 15 45 06/21/18 18:00 109/57 06/21/18 18:00 80 109/57 06/21/18 17:01 96 17 45 06/21/18 16:00 99.0 80 22 109/57 (74) 100 06/21/18 16:00 50 06/21/18 16:00 Mechanical Ventilator 06/21/18 15:43 80 06/21/18 15:21 95 17 45 06/21/18 13:00 79 19 45 06/21/18 12:27 128/68 06/21/18 12:00 93 06/21/18 12:00 Mechanical Ventilator 06/21/18 12:00 50 06/21/18 12:00 98.2 80 16 128/68 (88) 94 06/21/18 10:30 90 18 45 06/21/18 09:43 99 137/73 06/21/18 09:43 99 137/73 06/21/18 08:41 99 22 50 06/21/18 08:30 95 Intake and Output 06/21/18 06/22/18 19:00 07:00 Intake Total 690 ml 645 ml Output Total 480 ml 450 ml Balance 210 ml 195 ml Free Water 150 ml Tube Feeding 540 ml 495 ml Other 150 ml Output Urine Total 400 ml 400 ml Stool Total 80 ml 50 ml Laboratory Tests 06/22/18 03:30: White Blood Count 8.7, Red Blood Count 2.78L, Hemoglobin 8.1L, Hematocrit 26.2L , Mean Corpuscular Volume 95, Mean Corpuscular Hemoglobin 29.2, Mean Corpuscular Hemoglobin Concent 30.8L, Red Cell Distribution Width 21.8H, Platelet Count 215, Mean Platelet Volume 8.0, Neutrophils (%) (Auto) 81.6H, Lymphocytes (%) (Auto) 9.0L, Monocytes (%) (Auto) 5.9, Eosinophils (%) (Auto) 2.8, Basophils (%) (Auto) 0.8, Sodium Level 147H, Potassium Level 4.7, Chloride Level 112H, Carbon Dioxide Level 29, Anion Gap 6, Blood Urea Nitrogen 37H, Creatinine 1.6H, Estimat Glomerular Filtration Rate 31.8, Glucose Level 242H, Calcium Level 8.5, Random Vancomycin Level 10.3 Height (Feet): 5 Height (Inches): 2.00 Weight (Pounds): 175 Objective WDWN on trach reduced breath sounds bilaterally without rhonchi or wheeze S1S2 RRR without MRG NABS nontender no HSM; GT in place no CCE weak Jesus Lew MD Jun 22, 2018 08:12
--- NOTE | 2018-06-22 08:15 | NUR ---
NURSE NOTES: received pt in the bed, awake, alert, vent dependent, vital signs stable, no co pain, no SOB, skin warm and dry to touch, tolerate GT feeding well, bed in low position, call light within reach, HOB elevated.
[2018-06-22] MEDS: Enoxaparin 80mg Inj SUBQ SCH (09:07)
[2018-06-22] MEDS: Metoprolol Tartrate 50mg tab ORAL SCH ×2 (09:07→20:12)
[2018-06-22] MEDS: Aspirin Baby 81mg ORAL SCH (09:08)
[2018-06-22] MEDS: Miconazole 2% Cream 30gm TOPIC SCH ×2 (09:10→17:27)
--- NOTE | 2018-06-22 09:31 | NUR ---
RESPIRATORY NOTE: Started weaning pt per weaning protocol per 's order. Placed pt on CPAP PS 10, pt became tachypneic RR 37bpm, tachycardia HR 134 bpm, low Vt < 300ml. VC 3.9ml/kg. NIF -11. RSBI 135. Pt didn't pass the SBT trial. Placed pt back on AC mode with the same previous setting. RR went down to 21bpm, HR 103bpm, sat at 98%. No SOB or resp distress. WAYNE made aware. Will continue to monitor. Addendum: 06/22/18 at 1134 by Mik Rooney RT WAYNE Salazar made aware
--- NOTE | 2018-06-22 11:18 | Infectious Diseases Prog Note ---
"Assessment/Plan Assessment/Plan antibiotics : vancomycin iv, levoquin A 1. klebsiella | streptococcus pneumonia 2. herpes of lip s/p rx 3. diabetic ketoacidosis resolved 4. respiratory failure s/p tracheostomy 5. hypertension 6. leucocytosis resolved 7. renal failure P 1. continue iv vancomycin, po levoquin 2. sputum culture 3. will follow up cultures Subjective ROS Limited/Unobtainable: Yes Allergies: Coded Allergies: SHELLFISH DERIVED (Verified Allergy, Unknown, swelling and itchiness, 05/14) Objective Vital Signs Last 24 Hour Vital Signs Date Time Temp Pulse Resp B/P (MAP) Pulse Ox O2 Delivery O2 Flow Rate FiO2 06/22/18 11:08 78 17 30 06/22/18 09:25 103 21 40 06/22/18 09:19 99 06/22/18 09:08 91 135/77 06/22/18 09:07 91 135/77 06/22/18 08:00 Mechanical Ventilator 06/22/18 08:00 50 06/22/18 08:00 98.8 100 20 135/77 (96) 98 06/22/18 08:00 93 06/22/18 07:30 92 17 40 06/22/18 05:18 130/80 06/22/18 05:12 84 18 40 06/22/18 04:06 102 06/22/18 04:00 Mechanical Ventilator 06/22/18 04:00 50 06/22/18 04:00 98.9 100 20 113/65 (81) 98 06/22/18 03:10 82 17 40 06/22/18 01:08 81 18 40 06/22/18 00:02 128/80 06/22/18 00:00 99.4 86 22 128/80 (96) 100 06/22/18 00:00 Mechanical Ventilator 06/22/18 00:00 87 06/21/18 23:05 81 17 45 06/21/18 21:25 92 18 45 06/21/18 20:00 Mechanical Ventilator 06/21/18 20:00 87 06/21/18 20:00 50 06/21/18 20:00 99.6 97 22 118/68 (85) 100 06/21/18 19:12 90 15 45 06/21/18 18:00 109/57 06/21/18 18:00 80 109/57 06/21/18 17:01 96 17 45 06/21/18 16:00 99.0 80 22 109/57 (74) 100 06/21/18 16:00 50 06/21/18 16:00 Mechanical Ventilator 06/21/18 15:43 80 06/21/18 15:21 95 17 45 06/21/18 13:00 79 19 45 06/21/18 12:27 128/68 06/21/18 12:00 93 06/21/18 12:00 Mechanical Ventilator 06/21/18 12:00 50 06/21/18 12:00 98.2 80 16 128/68 (88) 94 Height (Feet): 5 Height (Inches): 2.00 Weight (Pounds): 175 HEENT: status post trach Respiratory/Chest: lungs clear Cardiovascular: normal rate, regular rhythm, no gallop/murmur Abdomen: soft, non tender, other - GT Extremities: other - + edema, left arm PICC Microbiology Date/Time Source Procedure Growth Status 06/20/18 16:07 Blood Blood Culture - Preliminary NO GROWTH AFTER 24 HOURS Resulted 06/20/18 11:00 Blood Blood Culture - Preliminary NO GROWTH AFTER 24 HOURS Resulted 06/20/18 15:30 Indwelling Cath Urine Culture - Preliminary NO GROWTH AFTER 24 HOURS Resulted Laboratory Tests Test 06/22/18 03:30 White Blood Count 8.7 K/UL (4.8-10.8) Red Blood Count 2.78 M/UL (4.20-5.40) L Hemoglobin 8.1 G/DL (12.0-16.0) L Hematocrit 26.2 % (37.0-47.0) L Mean Corpuscular Volume 95 FL (80-99) Mean Corpuscular Hemoglobin 29.2 PG (27.0-31.0) Mean Corpuscular Hemoglobin Concent 30.8 G/DL (32.0-36.0) L Red Cell Distribution Width 21.8 % (11.6-14.8) H Platelet Count 215 K/UL (150-450) Mean Platelet Volume 8.0 FL (6.5-10.1) Neutrophils (%) (Auto) 81.6 % (45.0-75.0) H Lymphocytes (%) (Auto) 9.0 % (20.0-45.0) L Monocytes (%) (Auto) 5.9 % (1.0-10.0) Eosinophils (%) (Auto) 2.8 % (0.0-3.0) Basophils (%) (Auto) 0.8 % (0.0-2.0) Sodium Level 147 MMOL/L (136-145) H Potassium Level 4.7 MMOL/L (3.5-5.1) Chloride Level 112 MMOL/L (98-107) H Carbon Dioxide Level 29 MMOL/L (21-32) Anion Gap 6 mmol/L (5-15) Blood Urea Nitrogen 37 mg/dL (7-18) H Creatinine 1.6 MG/DL (0.55-1.30) H Estimat Glomerular Filtration Rate 31.8 mL/min (>60) Glucose Level 242 MG/DL (74-106) H Calcium Level 8.5 MG/DL (8.5-10.1) Random Vancomycin Level 10.3 ug/mL Current Medications Medications (Trade) Dose Ordered Sig/Ellen Route PRN Reason Start Time Stop Time Status Last Admin Dose Admin Acetaminophen (Tylenol) 650 mg Q4H PRN GT Mild Pain/Temp > 100.5 06/19/18 13:45 07/19/18 13:44 06/19/18 17:43 Al Hydroxide/Mg Hydroxide (Mylanta) 30 ml Q6H PRN ORAL Abdominal cramps 06/19/18 03:14 07/02/18 03:13 Amlodipine Besylate (Norvasc) 5 mg BID ORAL 06/19/18 09:00 06/28/18 08:59 06/22/18 09:08 Aspirin (ASA) 81 mg DAILY ORAL 06/19/18 09:00 06/24/18 08:59 06/22/18 09:08 Chlorhexidine Gluconate (Leora-Hex 2%) 1 applic DAILY@2000 TOPIC 06/19/18 20:00 06/24/18 19:59 06/21/18 20:01 Enoxaparin Sodium (Lovenox) 80 mg Q24H SUBQ 06/19/18 09:00 07/03/18 08:59 06/22/18 09:07 Haloperidol Lactate (Haldol) 5 mg Q6H PRN IM Agitation 06/19/18 03:14 07/02/18 03:13 Hydralazine HCl (Apresoline) 25 mg Q6HR ORAL 06/19/18 06:00 07/02/18 00:00 06/22/18 05:18 Insulin Aspart (NovoLOG) Q6HR SUBQ 06/19/18 06:00 07/08/18 16:29 06/22/18 05:21 Lansoprazole (Prevacid) 30 mg DAILY GT 06/19/18 09:00 07/11/18 08:59 06/22/18 09:07 Levofloxacin (Levaquin) 750 mg Q48H GT 06/20/18 12:00 06/27/18 11:59 06/20/18 12:51 Magnesium Hydroxide (Mom) 30 ml DAILYPRN PRN ORAL Constipation 06/19/18 03:14 07/02/18 03:13 Metoprolol Tartrate (Lopressor) 5 mg Q2H PRN IVP For High Blood Pressure 06/19/18 03:14 06/23/18 03:13 Metoprolol Tartrate (Lopressor) 50 mg Q12HR ORAL 06/19/18 09:00 06/26/18 20:59 06/22/18 09:07 Miconazole Nitrate (Miconazole Nitrate) 1 applic BID TOPIC 06/19/18 09:00 07/09/18 18:29 06/22/18 09:10 Olanzapine (ZyPREXA) 2.5 mg BEDTIME ORAL 06/19/18 21:00 07/01/18 20:59 06/21/18 20:44 Vancomycin HCl (Vanco rx to dose) 1 ea DAILY PRN MISC Per rx protocol 06/20/18 10:15 07/20/18 10:14 Khadra Melendez MD Jun 22, 2018 11:18"
[2018-06-22 12:00] VITALS: BP 142/70
[2018-06-22] MEDS: Levofloxacin 750mg tab GT SCH (12:35)
--- NOTE | 2018-06-22 14:48 | NUR ---
GARMENT EXAMINERUROLOGY SURGEON SI:RESP FAILURE S/P TRACH/VENT DEPENDENT VS: BP 142/70, P 90, T 98.8, RR 17, SpO2 98 ON M.VENT FiO23 50 RBC 2.78, Hgb 8.1, Hct 26.2, MCHC 30.8, Plt Count 21.8, Lymph% 9.0, Neut% 81.6 IS:Levofloxacin Vancomycin Olanzapine Chlorhexidine Amlodipine Aspirin Lovenox Prevacid Lopressor Miconazole Nitrate Hydralazine HCI Insulin SDU STATUS
--- NOTE | 2018-06-22 15:31 | NUR ---
NURSE NOTES: pt resting, no any distress noted, no co pain, bed bath given, continue monitoring.
[2018-06-22 16:00] VITALS: BP 157/76
--- NOTE | 2018-06-22 17:36 | General Progress Note ---
Assessment/Plan Assessment/Plan Assessment and Recs: # Pancytopenia -- appears that initial hep and hiv are negative though final results to follow, liver shows no major hsm or cirrhosis, may consider meds or bone marrow process, smear reviewed, does have low albumin, has been hospitalized for some time, in and out since 04/30/18. Hiv and hepatitis panels are both negative --> query meds, review with ID, is on micafungin now, monitor counts closely --> given hgb downtrending and some nucleated reds on smear, will send off a flow cytometry --> nepogen 300mcg sq to maintain anc >1500 --> wbc trend : 1.7-->4.3-->3.1-->3.4-->7.7-->8.1--12-->15-->11-->14.6-->9 # Anemia of chronic disease - monitor anemia panel --> hemolysis does not appear to be the case --> anemia panel reviewed and c/w acd --> hgb trend: 8.3-->9.2-->8.9-->8.7-->9-->7.7-->7--->8 # Paroxysmal atrial fibrillation, due to CHADS-VASC score of 5, we require to keep anticoagulated, on metoprolol --> continue on apixaban # Hx of CAD, s/p CABG, ASA , atorvastatin and metoprolol. No wall motion abnormalities on Echo. LVEF ~55%. --> appreciate cards recs # Sinus tachycardia due to hypovolemia, resolved. # DKA, resolved. --> continue monitor # DM, non-compliant with medications. # Hx of HTN, controlled with metoprolol. # pancreatitis -- appreciate gi recs # increased LFT The timing of this note does not necessarily reflect the time of the patient was seen. Greatly appreciate consultation! Subjective ROS Limited/Unobtainable: Yes Allergies: Coded Allergies: SHELLFISH DERIVED (Verified Allergy, Unknown, swelling and itchiness, 05/14) Subjective 05/18: Pt is awake and comfortable, no events, leukopenia improved, wbc 4.3, plt 151 05/19: seen by bedside, awake, comfortable, plt 122 05/20: Pt is awake and comfortable, no events 2: Pt is seen in the room, resting in bed, no fevers or chills, wbc 8.7, plt 117 2: Pt is resting in bed, awake, comfortable, no fevers or chills, no acute distress. 2: EGD and EUS done today, has no gallbladder stones, only pancreatitis, no events 2: no events, dermatitis has improved, off loading of heels, pancreatitis and dka better 2: Pt is awake, comfortable, no acute events overnight, hgb 8.6 05/27: seen by bedside, awake, comfortable, no events 05/28: resting in bed, awake, comfortable, no fevers or chills, no acute distress , No need for ERCP per GI, 05/31: Pt is awake and comfortable, no events 06/01: awake, comfortable, denies acute distress. 06/02: seen by bedside, awake, comfortable, no acute distress. wbc 15. 06/03: no acute events, denies any abdominal pain, wbc trending down at 11 today. 06/04: awake/drowsy in bed, breathing easily on nasal cannula, denies SOB and pain at this time. 06/06: anemia cotninues to worsen, may consider a bone marrow biopsy if patient approves 06/07: hgb 9.7, not eating well, remains lethargic 06/08: hgb is stable, respiratory status is worsened, and thus was transferred to the icu 06/09: seen by bedside,awake, comfortable, plan to insert NGT samanta 06/10: not eating well, remains lethargic 06/11: poor po intake but currently on BIPAP and not stable for PEG placement, NGTF on hold per pulm 06/13:Seen by bedside, less confused, on BIPAP, no events 06/14: seen by bedside, on BIPAP, NJT feeds, no events 06/15: On BIPAP, Less confused, NJT feeds started, no events 06/16: awake, comfortable, NJT in place, more alert, on BIPAP, agreed to trach 06/17: Trach done today, PEG scheduled for am, no acute distress 06/18: PEG placement done by Dr Jewell, tolerated well , tube feeding from tomorrow AM , no events, hgb 8.3 06/20: is in the sdu, no events, h/h relatively stable, s/p peg, tolerating feeds well 06/21: gt and trach in place, has more congestion, no events reported, cbc reviewed. 06/22: awake, alert, vent dependent, tolerating GT feeding well, no events Objective Last 24 Hour Vital Signs Date Time Temp Pulse Resp B/P (MAP) Pulse Ox O2 Delivery O2 Flow Rate FiO2 06/22/18 17:27 157/76 06/22/18 17:27 89 157/76 06/22/18 16:46 89 19 30 06/22/18 16:00 4.0 30 06/22/18 16:00 Mechanical Ventilator 06/22/18 16:00 98.8 94 20 157/76 (103) 99 06/22/18 15:48 93 06/22/18 15:23 89 18 30 06/22/18 12:45 90 17 30 06/22/18 12:35 142/70 06/22/18 12:02 50 06/22/18 12:00 Mechanical Ventilator 06/22/18 12:00 98.8 90 18 142/70 (94) 98 06/22/18 11:33 84 06/22/18 11:08 78 17 30 06/22/18 09:25 103 21 40 06/22/18 09:19 99 06/22/18 09:08 91 135/77 06/22/18 09:07 91 135/77 06/22/18 08:00 Mechanical Ventilator 06/22/18 08:00 50 06/22/18 08:00 98.8 100 20 135/77 (96) 98 06/22/18 08:00 93 06/22/18 07:30 92 17 40 06/22/18 05:18 130/80 06/22/18 05:12 84 18 40 06/22/18 04:06 102 06/22/18 04:00 Mechanical Ventilator 06/22/18 04:00 50 06/22/18 04:00 98.9 100 20 113/65 (81) 98 06/22/18 03:10 82 17 40 06/22/18 01:08 81 18 40 06/22/18 00:02 128/80 06/22/18 00:00 99.4 86 22 128/80 (96) 100 06/22/18 00:00 Mechanical Ventilator 06/22/18 00:00 87 06/21/18 23:05 81 17 45 06/21/18 21:25 92 18 45 06/21/18 20:00 Mechanical Ventilator 06/21/18 20:00 87 06/21/18 20:00 50 06/21/18 20:00 99.6 97 22 118/68 (85) 100 06/21/18 19:12 90 15 45 06/21/18 18:00 109/57 06/21/18 18:00 80 109/57 Intake and Output 06/21/18 06/22/18 18:59 06:59 Intake Total 690 ml 690 ml Output Total 930 ml Balance 690 ml -240 ml Free Water 150 ml Tube Feeding 540 ml 540 ml Other 150 ml Output Urine Total 800 ml Stool Total 130 ml Laboratory Tests 06/22/18 03:30: White Blood Count 8.7, Red Blood Count 2.78L, Hemoglobin 8.1L, Hematocrit 26.2L , Mean Corpuscular Volume 95, Mean Corpuscular Hemoglobin 29.2, Mean Corpuscular Hemoglobin Concent 30.8L, Red Cell Distribution Width 21.8H, Platelet Count 215, Mean Platelet Volume 8.0, Neutrophils (%) (Auto) 81.6H, Lymphocytes (%) (Auto) 9.0L, Monocytes (%) (Auto) 5.9, Eosinophils (%) (Auto) 2.8, Basophils (%) (Auto) 0.8, Sodium Level 147H, Potassium Level 4.7, Chloride Level 112H, Carbon Dioxide Level 29, Anion Gap 6, Blood Urea Nitrogen 37H, Creatinine 1.6H, Estimat Glomerular Filtration Rate 31.8, Glucose Level 242H, Calcium Level 8.5, Random Vancomycin Level 10.3 Height (Feet): 5 Height (Inches): 2.00 Weight (Pounds): 175 Objective PHYSICAL EXAMINATION: GENERAL: Pleasant [place] woman, tired HEENT: Normocephalic and atraumatic. Sclerae anicteric. Oropharynx clear. NECK: Supple Trach++ CHEST: bilateral crackles and ++ nc CARDIOVASCULAR: Revealed regular rate. ABDOMEN: Soft. Good bowel sounds. PEG++ EXTREMITIES: Revealed no edema. Armando Bowen MD Jun 22, 2018 17:36
--- NOTE | 2018-06-22 19:11 | NUR ---
RESPIRATORY NOTE: Received pt. on 840 vent. Vent settings are: A/C rate of 12, Vt 500, fFI02 30%. No respiratory distress noted, Pt. Sp02 @ 99%. Ambu bag @ BS. Vent plugged on red outlet. Will continue to monitor pt.
--- NOTE | 2018-06-22 19:27 | NUR ---
HAND-OFF: Report given to QIAN BLACK.
[2018-06-22 20:00] VITALS: BP 114/67
--- NOTE | 2018-06-22 20:00 | NUR ---
NURSE NOTES: Patient received from Marie RN. Patient is awake and oriented to time, place and purposes. Patient is trached to ventilator with Shiley # 8, AC 12, 500tv, 30%, zero peep. GT feeding, receiving Glucerna 1.5 at 45ml/hr. 30ml residual noted. Flushed 50ml of water. Patient has a OMAR PICC line double lumen. running tko. Patient has a p200 mattress. SCD's are applied. Rectal tube noted for diarrhea. HR noted to be in and out of SR/Controlled A-fib. No acute distress, afebrile. Call light within reach and bed in its lowest position. Oral care was provided.
--- NOTE | 2018-06-22 20:11 | General Progress Note ---
Assessment/Plan Assessment/Plan Assessment - Respiratory failure - Acute pancreatitis - Anemia - Leukocytosis - dysphagia - s/p PEG - Azotemia - Urolithiasis - UTI - Cholelithiasis - DM - CAD/CABG - Gout - elevated alk phos Recommendations - Pulmonary care - Tube feeds - follow labs and exam - elevate HOB Subjective Allergies: Coded Allergies: SHELLFISH DERIVED (Verified Allergy, Unknown, swelling and itchiness, 05/14) Subjective above noted tolerating TF Objective Last 24 Hour Vital Signs Date Time Temp Pulse Resp B/P (MAP) Pulse Ox O2 Delivery O2 Flow Rate FiO2 06/22/18 19:10 90 20 30 06/22/18 17:27 157/76 06/22/18 17:27 89 157/76 06/22/18 16:46 89 19 30 06/22/18 16:00 4.0 30 06/22/18 16:00 Mechanical Ventilator 06/22/18 16:00 98.8 94 20 157/76 (103) 99 06/22/18 15:48 93 06/22/18 15:23 89 18 30 06/22/18 12:45 90 17 30 06/22/18 12:35 142/70 06/22/18 12:02 50 06/22/18 12:00 Mechanical Ventilator 06/22/18 12:00 98.8 90 18 142/70 (94) 98 06/22/18 11:33 84 06/22/18 11:08 78 17 30 06/22/18 09:25 103 21 40 06/22/18 09:19 99 06/22/18 09:08 91 135/77 06/22/18 09:07 91 135/77 06/22/18 08:00 Mechanical Ventilator 06/22/18 08:00 50 06/22/18 08:00 98.8 100 20 135/77 (96) 98 06/22/18 08:00 93 06/22/18 07:30 92 17 40 06/22/18 05:18 130/80 06/22/18 05:12 84 18 40 06/22/18 04:06 102 06/22/18 04:00 Mechanical Ventilator 06/22/18 04:00 50 06/22/18 04:00 98.9 100 20 113/65 (81) 98 06/22/18 03:10 82 17 40 06/22/18 01:08 81 18 40 06/22/18 00:02 128/80 06/22/18 00:00 99.4 86 22 128/80 (96) 100 06/22/18 00:00 Mechanical Ventilator 06/22/18 00:00 87 06/21/18 23:05 81 17 45 06/21/18 21:25 92 18 45 Intake and Output 06/21/18 06/22/18 19:00 07:00 Intake Total 690 ml 690 ml Output Total 480 ml 450 ml Balance 210 ml 240 ml Free Water 150 ml Tube Feeding 540 ml 540 ml Other 150 ml Output Urine Total 400 ml 400 ml Stool Total 80 ml 50 ml Laboratory Tests 06/22/18 03:30: White Blood Count 8.7, Red Blood Count 2.78L, Hemoglobin 8.1L, Hematocrit 26.2L , Mean Corpuscular Volume 95, Mean Corpuscular Hemoglobin 29.2, Mean Corpuscular Hemoglobin Concent 30.8L, Red Cell Distribution Width 21.8H, Platelet Count 215, Mean Platelet Volume 8.0, Neutrophils (%) (Auto) 81.6H, Lymphocytes (%) (Auto) 9.0L, Monocytes (%) (Auto) 5.9, Eosinophils (%) (Auto) 2.8, Basophils (%) (Auto) 0.8, Sodium Level 147H, Potassium Level 4.7, Chloride Level 112H, Carbon Dioxide Level 29, Anion Gap 6, Blood Urea Nitrogen 37H, Creatinine 1.6H, Estimat Glomerular Filtration Rate 31.8, Glucose Level 242H, Calcium Level 8.5, Random Vancomycin Level 10.3 Height (Feet): 5 Height (Inches): 2.00 Weight (Pounds): 175 Objective WDWN NCAT Neck (+) trach Coarse BS RRR abd soft, ND, (+) GT restrained, confused Mary Jewell MD Jun 22, 2018 20:11
[2018-06-22] MEDS: Acetaminophen 650mg/20.3ml GT PRN (20:13)
[2018-06-22] MEDS: OLANZapine 2.5mg tab ORAL SCH (20:13)
[2018-06-22] MEDS: Dyna-Hex 2% Top Sol 2oz TOPIC SCH (20:13)
--- NOTE | 2018-06-22 22:00 | NUR ---
NURSE NOTES: Patient repositioned and adjusted pillows. PICC line flushed for patency. Rectal tube remains patent and intact. Patient remains afebrile, cool touch. Able to make needs known by nodding and making arm/hand gestures. Suctioned and lavaged patient. Sputum sample collected and sent to lab, will continue to monitor.
--- NOTE | 2018-06-22 23:56 | Cardiology Progress Note ---
Assessment/Plan Assessment/Plan 1. Paroxysmal atrial fibrillation, in sinus rhythm now, due to CHADS-VASC score of 5, continue enoxaparin and metoprolol. 2. Hx of CAD, s/p CABG, ASA , atorvastatin and metoprolol. 3. Acute heart failure with normal EF, continue spot doses of lasix. 4. DM with DKA on admission. 5. HTN, well controlled, continue amlodipine, metoprolol and hydralazine. 6. Severe pulmonary HTN. 7. CKD Subjective Subjective Sinus rhythm at rate of 88. Intubated on FiO2 of 45%. Objective Last 24 Hour Vital Signs Date Time Temp Pulse Resp B/P (MAP) Pulse Ox O2 Delivery O2 Flow Rate FiO2 06/22/18 23:26 100/69 06/22/18 21:30 88 16 30 06/22/18 20:12 92 114/67 06/22/18 20:00 30 06/22/18 20:00 Mechanical Ventilator 06/22/18 19:50 102 06/22/18 19:10 90 20 30 06/22/18 17:27 157/76 06/22/18 17:27 89 157/76 06/22/18 16:46 89 19 30 06/22/18 16:00 4.0 30 06/22/18 16:00 Mechanical Ventilator 06/22/18 16:00 98.8 94 20 157/76 (103) 99 06/22/18 15:48 93 06/22/18 15:23 89 18 30 06/22/18 12:45 90 17 30 06/22/18 12:35 142/70 06/22/18 12:02 50 06/22/18 12:00 Mechanical Ventilator 06/22/18 12:00 98.8 90 18 142/70 (94) 98 06/22/18 11:33 84 06/22/18 11:08 78 17 30 06/22/18 09:25 103 21 40 06/22/18 09:19 99 06/22/18 09:08 91 135/77 06/22/18 09:07 91 135/77 06/22/18 08:00 Mechanical Ventilator 06/22/18 08:00 50 06/22/18 08:00 98.8 100 20 135/77 (96) 98 06/22/18 08:00 93 06/22/18 07:30 92 17 40 06/22/18 05:18 130/80 06/22/18 05:12 84 18 40 06/22/18 04:06 102 06/22/18 04:00 Mechanical Ventilator 06/22/18 04:00 50 06/22/18 04:00 98.9 100 20 113/65 (81) 98 06/22/18 03:10 82 17 40 06/22/18 01:08 81 18 40 06/22/18 00:02 128/80 06/22/18 00:00 99.4 86 22 128/80 (96) 100 06/22/18 00:00 Mechanical Ventilator 06/22/18 00:00 87 Intake and Output 06/21/18 06/22/18 19:00 07:00 Intake Total 690 ml 690 ml Output Total 480 ml 450 ml Balance 210 ml 240 ml Free Water 150 ml Tube Feeding 540 ml 540 ml Other 150 ml Output Urine Total 400 ml 400 ml Stool Total 80 ml 50 ml 2D Echo: EF55%,Mild LVH,Mod MR,Mild AR,RVSP 67 mmHg (severe PHT),Restrictive LV phy Laboratory Tests Test 06/22/18 03:30 White Blood Count 8.7 K/UL (4.8-10.8) Red Blood Count 2.78 M/UL (4.20-5.40) L Hemoglobin 8.1 G/DL (12.0-16.0) L Hematocrit 26.2 % (37.0-47.0) L Mean Corpuscular Volume 95 FL (80-99) Mean Corpuscular Hemoglobin 29.2 PG (27.0-31.0) Mean Corpuscular Hemoglobin Concent 30.8 G/DL (32.0-36.0) L Red Cell Distribution Width 21.8 % (11.6-14.8) H Platelet Count 215 K/UL (150-450) Mean Platelet Volume 8.0 FL (6.5-10.1) Neutrophils (%) (Auto) 81.6 % (45.0-75.0) H Lymphocytes (%) (Auto) 9.0 % (20.0-45.0) L Monocytes (%) (Auto) 5.9 % (1.0-10.0) Eosinophils (%) (Auto) 2.8 % (0.0-3.0) Basophils (%) (Auto) 0.8 % (0.0-2.0) Sodium Level 147 MMOL/L (136-145) H Potassium Level 4.7 MMOL/L (3.5-5.1) Chloride Level 112 MMOL/L (98-107) H Carbon Dioxide Level 29 MMOL/L (21-32) Anion Gap 6 mmol/L (5-15) Blood Urea Nitrogen 37 mg/dL (7-18) H Creatinine 1.6 MG/DL (0.55-1.30) H Estimat Glomerular Filtration Rate 31.8 mL/min (>60) Glucose Level 242 MG/DL (74-106) H Calcium Level 8.5 MG/DL (8.5-10.1) Random Vancomycin Level 10.3 ug/mL Microbiology Date/Time Source Procedure Growth Status 06/20/18 16:07 Blood Blood Culture - Preliminary NO GROWTH AFTER 24 HOURS Resulted 06/20/18 11:00 Blood Blood Culture - Preliminary NO GROWTH AFTER 24 HOURS Resulted 06/20/18 15:30 Indwelling Cath Urine Culture - Preliminary NO GROWTH AFTER 24 HOURS Resulted Objective HEENT: Normocephalic, atraumatic, Pupils equally reactive to light and accommodation, EOMI. NECK: No JVD, no carotid bruit. CARDIOVASCULAR: Regular rate and rhythm. No murmurs, gallops or rubs. LUNGS: Clear to auscultation bilaterally. No crackles or Rhonchi. ABDOMEN: Soft and nontender. No organomegaly, + BS. EXTREMITIES: No cyanosis, clubbing or edema. Miller Mckeon MD Jun 22, 2018 23:56
[2018-06-23] VITALS: BP 100/68
--- NOTE | 2018-06-23 | NUR ---
NURSE NOTES: Patient repositioned and provided oral care, Temperature now is 100.3F, cool bath provided.
--- NOTE | 2018-06-23 02:00 | NUR ---
NURSE NOTES: Patient repositioned. Oral care given. New feed hung and changed tubing. Patients Rectal tube remains in place. Patient continues to have mild fever of 100.3-100.5/ Patient given Tylenol earlier and cooling measures are ongoing, patient however is cool to touch and does not look lethargic or presents to have a changed in neuro status. Will continue to monitor.
[2018-06-23 04:00] VITALS: BP 104/60
[2018-06-23 05:43] LABS: HEMATOCRIT 26.2 % (37.0-47.0); HEMOGLOBIN 7.9 G/DL (12.0-16.0); MEAN CORPUSCULAR VOLUME 96 FL (80-99); PLATELET COUNT 192 K/UL (150-450); RED BLOOD COUNT 2.75 M/UL (4.20-5.40); RED CELL DISTRIBUTION WIDTH 21.9 % (11.6-14.8)
[2018-06-23] MEDS: Acetaminophen 650mg/20.3ml GT PRN (05:47)
[2018-06-23] MEDS: HydrALAZINE 25mg tab ORAL SCH ×3 (05:47→17:44)
[2018-06-23] MEDS: NovoLOG Insulin Flexpen SUBQ SCH ×3 (05:49→17:47)
[2018-06-23 06:05] LABS: ALANINE AMINOTRANSFERASE 45 U/L (12-78); ALBUMIN 2.2 G/DL (3.4-5.0); ALBUMIN/GLOBULIN RATIO 0.5 (1.0-2.7); ALKALINE PHOSPHATASE 687 U/L (46-116); ANION GAP 9 mmol/L (5-15); ASPARTATE AMINO TRANSFERASE 62 U/L (15-37); BILIRUBIN,TOTAL 0.6 MG/DL (0.2-1.0); BLOOD UREA NITROGEN 44 mg/dL (7-18); CALCIUM 8.4 MG/DL (8.5-10.1); CARBON DIOXIDE 26 MMOL/L (21-32); CHLORIDE 111 MMOL/L (98-107); POTASSIUM 4.8 MMOL/L (3.5-5.1); SODIUM 146 MMOL/L (136-145)
[2018-06-23 08:00] VITALS: BP 109/73
--- NOTE | 2018-06-23 08:00 | NUR ---
NURSE NOTES: received pt in the bed, vent dependent, sleeping, vital signs stable, no co pain, no SOB, skin warm and dry to touch, PICC line on left upper arm, dressing dry and intact, tolerate GT feeding well, rectal tube in place,bed in low position, call light within reach, HOB elevated.
[2018-06-23] MEDS: Aspirin Baby 81mg ORAL SCH (09:08)
[2018-06-23] MEDS: Metoprolol Tartrate 50mg tab ORAL SCH ×2 (09:08→20:04)
[2018-06-23] MEDS: Enoxaparin 80mg Inj SUBQ SCH (09:10)
[2018-06-23] MEDS: Miconazole 2% Cream 30gm TOPIC SCH ×2 (09:11→17:45)
--- NOTE | 2018-06-23 11:08 | NUR ---
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 500, RBC 2.75, Hgb 7.9, NS 146, BUN 44, CR 2.0, IS:Lovenox Lansoprazole Lopressor Miconazole Nitrate Hydralazine HCI NovoLog SDU STATUS
[2018-06-23 12:00] VITALS: BP 111/65
--- NOTE | 2018-06-23 12:09 | Infectious Diseases Prog Note ---
Assessment/Plan Assessment/Plan A 1. pancreatitis, EUS negative 2. herpes of lip treated 3. DM 4. increased LFT 5. fever resolved 6. hypertension 7. Anemia 10. Hypoxemic respiratory failure 11. Pneumonia with Klebsiella & strep Group B 12 post operative fever P 1 Continue Levaquin & Vancomycin 2. If cultures remain negative will stop antibiotics soon Subjective ROS Limited/Unobtainable: Yes Constitutional: Reports: fever, other - low grade Respiratory: Reports: dry cough Allergies: Coded Allergies: SHELLFISH DERIVED (Verified Allergy, Unknown, swelling and itchiness, 05/14) Objective Vital Signs Last 24 Hour Vital Signs Date Time Temp Pulse Resp B/P (MAP) Pulse Ox O2 Delivery O2 Flow Rate FiO2 06/23/18 10:30 82 20 30 06/23/18 09:08 108 109/73 06/23/18 08:30 78 22 30 06/23/18 08:30 99 06/23/18 08:00 108 06/23/18 08:00 98.3 108 20 109/73 (85) 98 06/23/18 08:00 30 06/23/18 08:00 Mechanical Ventilator 06/23/18 07:05 79 20 30 06/23/18 06:17 100.4 06/23/18 05:47 104/60 06/23/18 05:25 81 19 30 06/23/18 04:00 Mechanical Ventilator 06/23/18 04:00 109 06/23/18 04:00 30 06/23/18 04:00 100.5 109 17 104/60 (75) 97 06/23/18 03:38 80 20 30 06/23/18 01:27 89 20 30 06/23/18 00:00 100.3 85 22 100/68 (79) 98 06/23/18 00:00 Mechanical Ventilator 06/23/18 00:00 30 06/23/18 00:00 105 06/22/18 23:26 100/69 06/22/18 22:49 106 20 30 06/22/18 21:30 88 16 30 06/22/18 20:12 92 114/67 06/22/18 20:00 30 06/22/18 20:00 Mechanical Ventilator 06/22/18 20:00 98.1 98 20 114/67 (83) 100 06/22/18 19:50 102 06/22/18 19:10 90 20 30 06/22/18 17:27 157/76 06/22/18 17:27 89 157/76 06/22/18 16:46 89 19 30 06/22/18 16:00 4.0 30 06/22/18 16:00 Mechanical Ventilator 06/22/18 16:00 98.8 94 20 157/76 (103) 99 06/22/18 15:48 93 06/22/18 15:23 89 18 30 06/22/18 12:45 90 17 30 06/22/18 12:35 142/70 Height (Feet): 5 Height (Inches): 2.00 Weight (Pounds): 168 General Appearance: no acute distress HEENT: status post trach Respiratory/Chest: lungs clear, other - on ventilator Cardiovascular: normal rate, other - left arm PICC line Abdomen: soft, non tender, other - GT feeding Extremities: no edema Neurologic/Psychiatric: alert, responsive Microbiology Date/Time Source Procedure Growth Status 06/20/18 16:07 Blood Blood Culture - Preliminary NO GROWTH AFTER 48 HOURS Resulted 06/20/18 15:30 Indwelling Cath Urine Culture - Preliminary Resulted Laboratory Tests Test 06/23/18 04:00 White Blood Count 8.0 K/UL (4.8-10.8) Red Blood Count 2.75 M/UL (4.20-5.40) L Hemoglobin 7.9 G/DL (12.0-16.0) L Hematocrit 26.2 % (37.0-47.0) L Mean Corpuscular Volume 96 FL (80-99) Mean Corpuscular Hemoglobin 28.9 PG (27.0-31.0) Mean Corpuscular Hemoglobin Concent 30.3 G/DL (32.0-36.0) L Red Cell Distribution Width 21.9 % (11.6-14.8) H Platelet Count 192 K/UL (150-450) Mean Platelet Volume 7.7 FL (6.5-10.1) Neutrophils (%) (Auto) % (45.0-75.0) Lymphocytes (%) (Auto) % (20.0-45.0) Monocytes (%) (Auto) % (1.0-10.0) Eosinophils (%) (Auto) % (0.0-3.0) Basophils (%) (Auto) % (0.0-2.0) Differential Total Cells Counted 100 Neutrophils % (Manual) 80 % (45-75) H Lymphocytes % (Manual) 11 % (20-45) L Monocytes % (Manual) 6 % (1-10) Eosinophils % (Manual) 3 % (0-3) Basophils % (Manual) 0 % (0-2) Band Neutrophils 0 % (0-8) Platelet Estimate Adequate Platelet Morphology Normal Anisocytosis 2+ Sodium Level 146 MMOL/L (136-145) H Potassium Level 4.8 MMOL/L (3.5-5.1) Chloride Level 111 MMOL/L (98-107) H Carbon Dioxide Level 26 MMOL/L (21-32) Anion Gap 9 mmol/L (5-15) Blood Urea Nitrogen 44 mg/dL (7-18) H Creatinine 2.0 MG/DL (0.55-1.30) H Estimat Glomerular Filtration Rate 24.6 mL/min (>60) Glucose Level 225 MG/DL (74-106) H Calcium Level 8.4 MG/DL (8.5-10.1) L Total Bilirubin 0.6 MG/DL (0.2-1.0) Aspartate Amino Transf (AST/SGOT) 62 U/L (15-37) H Alanine Aminotransferase (ALT/SGPT) 45 U/L (12-78) Alkaline Phosphatase 687 U/L (46-116) H Total Protein 6.7 G/DL (6.4-8.2) Albumin 2.2 G/DL (3.4-5.0) L Globulin 4.5 g/dL Albumin/Globulin Ratio 0.5 (1.0-2.7) L Current Medications Medications (Trade) Dose Ordered Sig/Ellen Route PRN Reason Start Time Stop Time Status Last Admin Dose Admin Acetaminophen (Tylenol) 650 mg Q4H PRN GT Mild Pain/Temp > 100.5 06/19/18 13:45 07/19/18 13:44 06/23/18 05:47 Al Hydroxide/Mg Hydroxide (Mylanta) 30 ml Q6H PRN ORAL Abdominal cramps 06/19/18 03:14 07/02/18 03:13 Amlodipine Besylate (Norvasc) 5 mg BID ORAL 06/19/18 09:00 06/28/18 08:59 06/22/18 17:27 Aspirin (ASA) 81 mg DAILY ORAL 06/19/18 09:00 06/24/18 08:59 06/23/18 09:08 Chlorhexidine Gluconate (Leora-Hex 2%) 1 applic DAILY@2000 TOPIC 06/19/18 20:00 06/24/18 19:59 06/22/18 20:13 Enoxaparin Sodium (Lovenox) 80 mg Q24H SUBQ 06/19/18 09:00 07/03/18 08:59 06/23/18 09:10 Haloperidol Lactate (Haldol) 5 mg Q6H PRN IM Agitation 06/19/18 03:14 07/02/18 03:13 Hydralazine HCl (Apresoline) 25 mg Q6HR ORAL 06/19/18 06:00 07/02/18 00:00 06/23/18 05:47 Insulin Aspart (NovoLOG) Q6HR SUBQ 06/19/18 06:00 07/08/18 16:29 06/23/18 05:49 Lansoprazole (Prevacid) 30 mg DAILY GT 06/19/18 09:00 07/11/18 08:59 06/23/18 09:08 Levofloxacin (Levaquin) 750 mg Q48H GT 06/20/18 12:00 06/27/18 11:59 06/22/18 12:35 Magnesium Hydroxide (Mom) 30 ml DAILYPRN PRN ORAL Constipation 06/19/18 03:14 07/02/18 03:13 Metoprolol Tartrate (Lopressor) 50 mg Q12HR ORAL 06/19/18 09:00 06/26/18 20:59 06/23/18 09:08 Miconazole Nitrate (Miconazole Nitrate) 1 applic BID TOPIC 06/19/18 09:00 07/09/18 18:29 06/23/18 09:11 Olanzapine (ZyPREXA) 2.5 mg BEDTIME ORAL 06/19/18 21:00 07/01/18 20:59 06/22/18 20:13 Vancomycin HCl (Vanco rx to dose) 1 ea DAILY PRN MISC Per rx protocol 06/20/18 10:15 07/20/18 10:14 Mahesh Tejada MD Jun 23, 2018 12:09
--- NOTE | 2018-06-23 14:43 | NUR ---
NURSE NOTES: vital signs stable, no respiratory distress, tolerate feeding well, no co pain, continue monitoring.
--- NOTE | 2018-06-23 14:44 | NUR ---
INSURANCE CLINICAL REVIEWS FAXED TO ROSA Schroeder [phone] FAX CLINICALS [phone]
--- NOTE | 2018-06-23 15:51 | NUR ---
NURSE NOTES: HGB 7.8, Morgan Clark aware, ordered CBC in AM.
[2018-06-23 16:00] VITALS: BP 120/61
--- NOTE | 2018-06-23 16:09 | General Progress Note ---
Assessment/Plan Assessment/Plan Assessment and Recs: # Pancytopenia -- appears that initial hep and hiv are negative though final results to follow, liver shows no major hsm or cirrhosis, may consider meds or bone marrow process, smear reviewed, does have low albumin, has been hospitalized for some time, in and out since 04/30/18. Hiv and hepatitis panels are both negative --> query meds, review with ID, is on micafungin now, monitor counts closely --> given hgb downtrending and some nucleated reds on smear, will send off a flow cytometry --> nepogen 300mcg sq to maintain anc >1500 --> wbc trend : 1.7-->4.3-->3.1-->3.4-->7.7-->8.1--12-->15-->11-->14.6-->9 # Anemia of chronic disease - monitor anemia panel --> hemolysis does not appear to be the case --> anemia panel reviewed and c/w acd --> hgb trend: 8.3-->9.2-->8.9-->8.7-->9-->7.7-->7--->8 # Paroxysmal atrial fibrillation, due to CHADS-VASC score of 5, we require to keep anticoagulated, on metoprolol --> off apixban/now on lovenox # Hx of CAD, s/p CABG, ASA , atorvastatin and metoprolol. No wall motion abnormalities on Echo. LVEF ~55%. --> appreciate cards recs # Sinus tachycardia due to hypovolemia, resolved. # DKA, resolved. --> continue monitor # DM, non-compliant with medications. # Hx of HTN, controlled with metoprolol. # pancreatitis -- appreciate gi recs # increased LFT # Resp failure s/p trach/vent The timing of this note does not necessarily reflect the time of the patient was seen. Greatly appreciate consultation! Subjective Constitutional: Denies: no symptoms, chills, diaphoresis, fever, malaise, weakness, other Respiratory: Denies: no symptoms, cough, orthopnea, shortness of breath, SOB with excertion, SOB at rest, sputum, stridor, wheezing, other Gastrointestinal/Abdominal: Denies: no symptoms, abdomen distended, abdominal pain, black stools, tarry stools, blood in stool, constipated, diarrhea, difficulty swallowing, nausea, poor appetite, poor fluid intake, rectal bleeding , vomiting, other Genitourinary: Denies: no symptoms, burning, discharge, frequency, flank pain, hematuria, incontinence, pain, urgency, other Neurologic/Psychiatric: Denies: no symptoms, anxiety, depressed, emotional problems, headache, numbness, paresthesia, pre-existing deficit, seizure, tingling, tremors, weakness, other Endocrine: Denies: no symptoms, excessive sweating, flushing, intolerance to cold, intolerance to heat, increased hunger, increased thirst, increased urine, unexplained weight gain, unexplained weight loss, other Hematologic/Lymphatic: Denies: no symptoms, anemia, easy bleeding, easy bruising, other Allergies: Coded Allergies: SHELLFISH DERIVED (Verified Allergy, Unknown, swelling and itchiness, 05/14) Subjective 05/18: Pt is awake and comfortable, no events, leukopenia improved, wbc 4.3, plt 151 05/19: seen by bedside, awake, comfortable, plt 122 05/20: Pt is awake and comfortable, no events 05/21: Pt is seen in the room, resting in bed, no fevers or chills, wbc 8.7, plt 117 2: Pt is resting in bed, awake, comfortable, no fevers or chills, no acute distress. 05/24: EGD and EUS done today, has no gallbladder stones, only pancreatitis, no events 05/25: no events, dermatitis has improved, off loading of heels, pancreatitis and dka better 05/26: Pt is awake, comfortable, no acute events overnight, hgb 8.6 05/27: seen by bedside, awake, comfortable, no events 05/28: resting in bed, awake, comfortable, no fevers or chills, no acute distress , No need for ERCP per GI, 05/31: Pt is awake and comfortable, no events 06/01: awake, comfortable, denies acute distress. 06/02: seen by bedside, awake, comfortable, no acute distress. wbc 15. 06/03: no acute events, denies any abdominal pain, wbc trending down at 11 today. 06/04: awake/drowsy in bed, breathing easily on nasal cannula, denies SOB and pain at this time. 06/06: anemia cotninues to worsen, may consider a bone marrow biopsy if patient approves 06/07: hgb 9.7, not eating well, remains lethargic 06/08: hgb is stable, respiratory status is worsened, and thus was transferred to the icu 06/09: seen by bedside,awake, comfortable, plan to insert NGT samanta 06/10: not eating well, remains lethargic 06/11: poor po intake but currently on BIPAP and not stable for PEG placement, NGTF on hold per pulm 06/13:Seen by bedside, less confused, on BIPAP, no events 06/14: seen by bedside, on BIPAP, NJT feeds, no events 06/15: On BIPAP, Less confused, NJT feeds started, no events 06/16: awake, comfortable, NJT in place, more alert, on BIPAP, agreed to trach 06/17: Trach done today, PEG scheduled for am, no acute distress 06/18: PEG placement done by Dr Jewell, tolerated well , tube feeding from tomorrow AM , no events, hgb 8.3 06/20: is in the sdu, no events, h/h relatively stable, s/p peg, tolerating feeds well 06/21: gt and trach in place, has more congestion, no events reported, cbc reviewed. 06/22: awake, alert, vent dependent, tolerating GT feeding well, no events 06/23: no events, remains in the sdu, without complaints, hgb 7.8 Objective Last 24 Hour Vital Signs Date Time Temp Pulse Resp B/P (MAP) Pulse Ox O2 Delivery O2 Flow Rate FiO2 06/23/18 12:30 79 18 30 06/23/18 12:00 99 06/23/18 12:00 98.6 99 21 111/65 (80) 95 06/23/18 12:00 30 06/23/18 12:00 111/65 06/23/18 12:00 Mechanical Ventilator 06/23/18 10:30 82 20 30 06/23/18 09:08 108 109/73 06/23/18 09:00 82 109/73 06/23/18 08:30 78 22 30 06/23/18 08:30 99 06/23/18 08:00 108 06/23/18 08:00 98.3 108 20 109/73 (85) 98 06/23/18 08:00 30 06/23/18 08:00 Mechanical Ventilator 06/23/18 07:05 79 20 30 06/23/18 06:17 100.4 06/23/18 05:47 104/60 06/23/18 05:25 81 19 30 06/23/18 04:00 Mechanical Ventilator 06/23/18 04:00 109 06/23/18 04:00 30 06/23/18 04:00 100.5 109 17 104/60 (75) 97 06/23/18 03:38 80 20 30 06/23/18 01:27 89 20 30 06/23/18 00:00 100.3 85 22 100/68 (79) 98 06/23/18 00:00 Mechanical Ventilator 06/23/18 00:00 30 06/23/18 00:00 105 06/22/18 23:26 100/69 06/22/18 22:49 106 20 30 06/22/18 21:30 88 16 30 06/22/18 20:12 92 114/67 06/22/18 20:00 30 06/22/18 20:00 Mechanical Ventilator 06/22/18 20:00 98.1 98 20 114/67 (83) 100 06/22/18 19:50 102 06/22/18 19:10 90 20 30 06/22/18 17:27 157/76 06/22/18 17:27 89 157/76 06/22/18 16:46 89 19 30 Intake and Output 06/22/18 06/23/18 18:59 06:59 Intake Total 690 ml 660 ml Output Total 50 ml 200 ml Balance 640 ml 460 ml Free Water 150 ml 120 ml Tube Feeding 540 ml 540 ml Output Urine Total 200 ml Stool Total 50 ml # Voids 2 Laboratory Tests 06/23/18 04:00: White Blood Count 8.0, Red Blood Count 2.75L, Hemoglobin 7.9L, Hematocrit 26.2L , Mean Corpuscular Volume 96, Mean Corpuscular Hemoglobin 28.9, Mean Corpuscular Hemoglobin Concent 30.3L, Red Cell Distribution Width 21.9H, Platelet Count 192, Mean Platelet Volume 7.7, Neutrophils (%) (Auto) , Lymphocytes (%) (Auto) , Monocytes (%) (Auto) , Eosinophils (%) (Auto) , Basophils (%) (Auto) , Differential Total Cells Counted 100, Neutrophils % ( Manual) 80H, Lymphocytes % (Manual) 11L, Monocytes % (Manual) 6, Eosinophils % ( Manual) 3, Basophils % (Manual) 0, Band Neutrophils 0, Platelet Estimate Adequate, Platelet Morphology Normal, Anisocytosis 2+, Sodium Level 146H, Potassium Level 4.8, Chloride Level 111H, Carbon Dioxide Level 26, Anion Gap 9, Blood Urea Nitrogen 44H, Creatinine 2.0H, Estimat Glomerular Filtration Rate 24.6, Glucose Level 225H, Calcium Level 8.4L, Total Bilirubin 0.6, Aspartate Amino Transf (AST/SGOT) 62H, Alanine Aminotransferase (ALT/SGPT) 45, Alkaline Phosphatase 687H, Total Protein 6.7, Albumin 2.2L, Globulin 4.5, Albumin/ Globulin Ratio 0.5L Height (Feet): 5 Height (Inches): 2.00 Weight (Pounds): 168 Objective PHYSICAL EXAMINATION: GENERAL: Pleasant [place] woman, tired HEENT: Normocephalic and atraumatic. Sclerae anicteric. Oropharynx clear. NECK: Supple Trach++/vent CHEST: bilateral crackles and ++ nc CARDIOVASCULAR: Revealed regular rate. ABDOMEN: Soft. Good bowel sounds. PEG++ EXTREMITIES: Revealed no edema. Armando Bowen MD Jun 23, 2018 16:09
--- NOTE | 2018-06-23 18:14 | General Progress Note ---
Assessment/Plan Assessment/Plan Assessment - Respiratory failure - Acute pancreatitis - Anemia - Leukocytosis - dysphagia - s/p PEG - Azotemia - Urolithiasis - UTI - Cholelithiasis - DM - CAD/CABG - Gout - elevated alk phos Recommendations - Pulmonary care - Tube feeds - follow labs and exam - elevate HOB - increase GT hydration Subjective Allergies: Coded Allergies: SHELLFISH DERIVED (Verified Allergy, Unknown, swelling and itchiness, 05/14) Subjective above noted tolerating TF labs noted Objective Last 24 Hour Vital Signs Date Time Temp Pulse Resp B/P (MAP) Pulse Ox O2 Delivery O2 Flow Rate FiO2 06/23/18 17:45 83 120/61 06/23/18 17:44 120/61 06/23/18 17:00 83 22 30 06/23/18 16:00 30 06/23/18 16:00 30 06/23/18 16:00 104 06/23/18 16:00 Mechanical Ventilator 06/23/18 16:00 97.6 96 27 120/61 (80) 96 06/23/18 15:30 81 18 30 06/23/18 12:30 79 18 30 06/23/18 12:00 99 06/23/18 12:00 98.6 99 21 111/65 (80) 95 06/23/18 12:00 30 06/23/18 12:00 111/65 06/23/18 12:00 Mechanical Ventilator 06/23/18 10:30 82 20 30 06/23/18 09:08 108 109/73 06/23/18 09:00 82 109/73 06/23/18 08:30 78 22 30 06/23/18 08:30 99 06/23/18 08:00 108 06/23/18 08:00 98.3 108 20 109/73 (85) 98 06/23/18 08:00 30 06/23/18 08:00 Mechanical Ventilator 06/23/18 07:05 79 20 30 06/23/18 06:17 100.4 06/23/18 05:47 104/60 06/23/18 05:25 81 19 30 06/23/18 04:00 Mechanical Ventilator 06/23/18 04:00 109 06/23/18 04:00 30 06/23/18 04:00 100.5 109 17 104/60 (75) 97 06/23/18 03:38 80 20 30 06/23/18 01:27 89 20 30 06/23/18 00:00 100.3 85 22 100/68 (79) 98 06/23/18 00:00 Mechanical Ventilator 06/23/18 00:00 30 06/23/18 00:00 105 06/22/18 23:26 100/69 06/22/18 22:49 106 20 30 06/22/18 21:30 88 16 30 06/22/18 20:12 92 114/67 06/22/18 20:00 30 06/22/18 20:00 Mechanical Ventilator 06/22/18 20:00 98.1 98 20 114/67 (83) 100 06/22/18 19:50 102 06/22/18 19:10 90 20 30 Intake and Output 06/22/18 06/23/18 18:59 06:59 Intake Total 690 ml 660 ml Output Total 50 ml 200 ml Balance 640 ml 460 ml Free Water 150 ml 120 ml Tube Feeding 540 ml 540 ml Output Urine Total 200 ml Stool Total 50 ml # Voids 2 Laboratory Tests 06/23/18 04:00: White Blood Count 8.0, Red Blood Count 2.75L, Hemoglobin 7.9L, Hematocrit 26.2L , Mean Corpuscular Volume 96, Mean Corpuscular Hemoglobin 28.9, Mean Corpuscular Hemoglobin Concent 30.3L, Red Cell Distribution Width 21.9H, Platelet Count 192, Mean Platelet Volume 7.7, Neutrophils (%) (Auto) , Lymphocytes (%) (Auto) , Monocytes (%) (Auto) , Eosinophils (%) (Auto) , Basophils (%) (Auto) , Differential Total Cells Counted 100, Neutrophils % ( Manual) 80H, Lymphocytes % (Manual) 11L, Monocytes % (Manual) 6, Eosinophils % ( Manual) 3, Basophils % (Manual) 0, Band Neutrophils 0, Platelet Estimate Adequate, Platelet Morphology Normal, Anisocytosis 2+, Sodium Level 146H, Potassium Level 4.8, Chloride Level 111H, Carbon Dioxide Level 26, Anion Gap 9, Blood Urea Nitrogen 44H, Creatinine 2.0H, Estimat Glomerular Filtration Rate 24.6, Glucose Level 225H, Calcium Level 8.4L, Total Bilirubin 0.6, Aspartate Amino Transf (AST/SGOT) 62H, Alanine Aminotransferase (ALT/SGPT) 45, Alkaline Phosphatase 687H, Total Protein 6.7, Albumin 2.2L, Globulin 4.5, Albumin/ Globulin Ratio 0.5L Height (Feet): 5 Height (Inches): 2.00 Weight (Pounds): 168 Objective WDWN NCAT Neck (+) trach Coarse BS RRR abd soft, ND, (+) GT restrained, confused Mary Jewell MD Jun 23, 2018 18:14
--- NOTE | 2018-06-23 19:06 | NUR ---
HAND-OFF: Report given to QIAN BLACK.
[2018-06-23 20:00] VITALS: BP 136/55
--- NOTE | 2018-06-23 20:00 | NUR ---
NURSE NOTES: Patient received from Marie RN. Patient is awake and oriented to time, place and purposes. Patient is trached to ventilator with Shiley # 8, AC 12, 500tv, 30%, zero peep. GT feeding, receiving Glucerna 1.2 at 45ml/hr. 30ml residual noted. Flushed 50ml of water. Patient has a OMAR PICC line double lumen. running tko. Patient has a p200 mattress. SCD's are applied. Rectal tube noted for diarrhea. HR noted to be in and out of SR/Controlled A-fib. No acute distress, afebrile. Call light within reach and bed in its lowest position. Oral care was provided.
[2018-06-23] MEDS: OLANZapine 2.5mg tab ORAL SCH (20:01)
[2018-06-23] MEDS: Dyna-Hex 2% Top Sol 2oz TOPIC SCH (20:04)
--- NOTE | 2018-06-23 22:45 | Pulmonolgy Critical Care Note ---
Critical Care - Asmt/Plan Assessment/Plan: Pulmonary CCM Progress Note Assessment/Plan Impression Diabetic ketoacidosis Anemia Transaminitis of unclear etiology Severe protein calorie malnutrition Evidence of pancreatitis, better Acute renal failure, improved Hyperglycemia Diabetes Hyponatremia Metabolic acidosis Hypercholesterolemia fever oral ulcers afib with RVR leukopenia pancreatitis CVA pleural effusions Respiratory failure sp Tracheostomy and PEG No new complaints S/p GT - feeds being started, free water flushes ST assessment of swallow pending on antibiotics with + cultures; per ID on AC - wean as Tolerated care noted; will need rehab with current status still very weak and will need snf follow Labs impression, plan, and exam edited and reviewed in detail care discussed with RN Subjective Allergies: Coded Allergies: SHELLFISH DERIVED (Verified Allergy, Unknown, swelling and itchiness, 05/14) Subjective care noted not eating well NAD less lethargic Objective Vital Signs Noted Laboratory Tests 06/10/18 04:30: Stool Occult Blood Negative 06/10/18 05:20: White Blood Count 12.8H, Red Blood Count 3.19L, Hemoglobin 9.1L, Hematocrit 28.5L, Mean Corpuscular Volume 89, Mean Corpuscular Hemoglobin 28.5, Mean Corpuscular Hemoglobin Concent 31.9L, Red Cell Distribution Width 21.5H, Platelet Count 305, Mean Platelet Volume 7.0, Neutrophils (%) (Auto) , Lymphocytes (%) (Auto) , Monocytes (%) (Auto) , Eosinophils (%) (Auto) , Basophils (%) (Auto) , Differential Total Cells Counted 100, Neutrophils % ( Manual) 91H, Lymphocytes % (Manual) 2L, Monocytes % (Manual) 6, Eosinophils % ( Manual) 1, Basophils % (Manual) 0, Band Neutrophils 0, Platelet Estimate Adequate, Platelet Morphology Normal, Polychromasia 1+, Hypochromasia 1+, Anisocytosis 2+, Sodium Level 149H, Potassium Level 4.0, Chloride Level 111H, Carbon Dioxide Level 25, Anion Gap 13, Blood Urea Nitrogen 31H, Creatinine 1.9H , Estimat Glomerular Filtration Rate 26.1, Glucose Level 209H, Calcium Level 8.3L 06/10/18 07:37: Arterial Blood pH 7.471H, Arterial Blood Partial Pressure CO2 28.8L, Arterial Blood Partial Pressure O2 53.5L, Arterial Blood HCO3 20.5L, Arterial Blood Oxygen Saturation 88.1*L, Arterial Blood Base Excess -2.4L, Marlon Test Positive Height (Feet): 4 Height (Inches): 10.00 Weight (Pounds): 174 Objective WDWN Trach CDI Awake/interactive clear breath sounds bilaterally without rhonchi or wheeze S1S2 RRR without MRG NABS nontender no HSM no CCE remains weak Critical Care - Objective Last 24 Hour Vital Signs Date Time Temp Pulse Resp B/P (MAP) Pulse Ox O2 Delivery O2 Flow Rate FiO2 06/23/18 20:37 112 19 30 06/23/18 20:04 105 136/55 06/23/18 20:00 30 06/23/18 20:00 Mechanical Ventilator 06/23/18 20:00 100.5 105 24 136/55 (82) 99 06/23/18 17:45 83 120/61 06/23/18 17:44 120/61 06/23/18 17:00 83 22 30 06/23/18 16:00 30 06/23/18 16:00 30 06/23/18 16:00 104 06/23/18 16:00 Mechanical Ventilator 06/23/18 16:00 97.6 96 27 120/61 (80) 96 06/23/18 15:30 81 18 30 06/23/18 12:30 79 18 30 06/23/18 12:00 99 06/23/18 12:00 98.6 99 21 111/65 (80) 95 06/23/18 12:00 30 06/23/18 12:00 111/65 06/23/18 12:00 Mechanical Ventilator 06/23/18 10:30 82 20 30 06/23/18 09:08 108 109/73 06/23/18 09:00 82 109/73 06/23/18 08:30 78 22 30 06/23/18 08:30 99 06/23/18 08:00 108 06/23/18 08:00 98.3 108 20 109/73 (85) 98 06/23/18 08:00 30 06/23/18 08:00 Mechanical Ventilator 06/23/18 07:05 79 20 30 06/23/18 06:17 100.4 06/23/18 05:47 104/60 06/23/18 05:25 81 19 30 06/23/18 04:00 Mechanical Ventilator 06/23/18 04:00 109 06/23/18 04:00 30 06/23/18 04:00 100.5 109 17 104/60 (75) 97 06/23/18 03:38 80 20 30 06/23/18 01:27 89 20 30 06/23/18 00:00 100.3 85 22 100/68 (79) 98 06/23/18 00:00 Mechanical Ventilator 06/23/18 00:00 30 06/23/18 00:00 105 06/22/18 23:26 100/69 06/22/18 22:49 106 20 30 Micro: Microbiology Date/Time Source Procedure Growth Status 06/22/18 22:00 Sputum Gram Stain - Final Resulted 06/22/18 22:00 Sputum Sputum Culture Pending Resulted Accucheck: 305 Critical Care - Subjective FI02: 30 Vent Support Breath Rate: 12 Vent Support Mode: AC Vent Tidal Volume: 500 Sputum Amount: Small PEEP: 0.0 PIP: 31 Tube Feeding Amount: 45 I&O: Intake and Output 06/22/18 06/23/18 19:00 07:00 Intake Total 690 ml 660 ml Output Total 50 ml 200 ml Balance 640 ml 460 ml Free Water 150 ml 120 ml Tube Feeding 540 ml 540 ml Output Urine Total 200 ml Stool Total 50 ml # Voids 2 Gulshan Landry MD Jun 23, 2018 22:45
[2018-06-24] VITALS: BP 114/86
--- NOTE | 2018-06-24 | NUR ---
NURSE NOTES: Patient repositioned and provided oral care. Patient seems to get agitated at times and feeling restless and skirmishes around in bed. Patient temperature noted to be 100.8F, however patient is cool to touch. Other vitals remains stable, Saturating at 100% and RR 16-24.
[2018-06-24] MEDS: HydrALAZINE 25mg tab ORAL SCH ×5 (00:22→23:53)
[2018-06-24] MEDS: NovoLOG Insulin Flexpen SUBQ SCH ×5 (00:23→23:56)
[2018-06-24 04:00] VITALS: BP 119/65
--- NOTE | 2018-06-24 04:00 | NUR ---
NURSE NOTES: Repositioned, bathed and provided oral care. No acute events overnight
[2018-06-24 05:41] LABS: HEMATOCRIT 25.6 % (37.0-47.0); HEMOGLOBIN 7.9 G/DL (12.0-16.0); MEAN CORPUSCULAR VOLUME 96 FL (80-99); PLATELET COUNT 188 K/UL (150-450); RED BLOOD COUNT 2.67 M/UL (4.20-5.40); RED CELL DISTRIBUTION WIDTH 21.7 % (11.6-14.8); WHITE BLOOD COUNT 9.4 K/UL (4.8-10.8)
--- NOTE | 2018-06-24 07:15 | NUR ---
NURSE NOTES: Received pt from WAYNE Christian. in stable condition, no cardiopulmonary distress notes. Pt is awake, AAOx4, calm in semifowler. Pt is trache to vent shiley 8 ac 12 TV 500 FiO2 30%. GT noted running Glucerna 1.2 at 55cc/Hr. Rectal tube noted draining stool. Purewick noted draining yellow urine. Skin alterations noted. Pt is on APM/MATT mattress with SCDs. OMAR PICC noted both lumens patent with dry and intact dressing. Bed alarm on in lowest position, side rails up x 2, Call light within reach. Will continue to monitor pt.
[2018-06-24 08:00] VITALS: BP 116/73
[2018-06-24] MEDS: Metoprolol Tartrate 50mg tab ORAL SCH ×2 (08:39→21:06)
[2018-06-24] MEDS: Miconazole 2% Cream 30gm TOPIC SCH ×2 (08:41→17:53)
[2018-06-24] MEDS: Enoxaparin 80mg Inj SUBQ SCH (08:42)
--- NOTE | 2018-06-24 08:51 | General Progress Note ---
Assessment/Plan Assessment/Plan Impression Diabetic ketoacidosis Anemia Transaminitis of unclear etiology Severe protein calorie malnutrition Evidence of pancreatitis, better Acute renal failure, improved Hyperglycemia Diabetes Hyponatremia Metabolic acidosis Hypercholesterolemia fever oral ulcers afib with RVR leukopenia pancreatitis CVA pleural effusions pulmonary edema trach GT PLAN nutrition vent feeds suction monitor with noted desaturation subacute care; await placement impression, plan, and exam edited and reviewed in detail care discussed with RN Subjective ROS Limited/Unobtainable: Yes Allergies: Coded Allergies: SHELLFISH DERIVED (Verified Allergy, Unknown, swelling and itchiness, 05/14) Subjective care noted gt and trach in place on vent Objective Last 24 Hour Vital Signs Date Time Temp Pulse Resp B/P (MAP) Pulse Ox O2 Delivery O2 Flow Rate FiO2 06/24/18 08:39 103 116/73 06/24/18 08:39 103 116/73 06/24/18 05:27 101 21 30 06/24/18 05:08 136/55 06/24/18 04:00 99.3 95 22 119/65 (83) 99 06/24/18 04:00 93 06/24/18 04:00 Mechanical Ventilator 06/24/18 04:00 30 06/24/18 03:21 94 17 30 06/24/18 01:01 89 18 30 06/24/18 00:22 136/55 06/24/18 00:00 30 06/24/18 00:00 97 06/24/18 00:00 100.8 104 24 114/86 (95) 97 06/24/18 00:00 Mechanical Ventilator 06/23/18 23:28 98 24 30 06/23/18 20:37 112 19 30 06/23/18 20:04 105 136/55 06/23/18 20:00 30 06/23/18 20:00 Mechanical Ventilator 06/23/18 20:00 106 06/23/18 20:00 100.5 105 24 136/55 (82) 99 06/23/18 17:45 83 120/61 06/23/18 17:44 120/61 06/23/18 17:00 83 22 30 06/23/18 16:00 30 06/23/18 16:00 30 06/23/18 16:00 104 06/23/18 16:00 Mechanical Ventilator 06/23/18 16:00 97.6 96 27 120/61 (80) 96 3/6/19 15:30 81 18 30 06/23/18 12:30 79 18 30 06/23/18 12:00 99 06/23/18 12:00 98.6 99 21 111/65 (80) 95 06/23/18 12:00 30 06/23/18 12:00 111/65 06/23/18 12:00 Mechanical Ventilator 06/23/18 10:30 82 20 30 06/23/18 09:08 108 109/73 06/23/18 09:00 82 109/73 Intake and Output 06/23/18 06/24/18 19:00 07:00 Intake Total 750 ml 605 ml Output Total 230 ml 400 ml Balance 520 ml 205 ml Free Water 200 ml Tube Feeding 550 ml 605 ml Output Urine Total 150 ml 400 ml Stool Total 80 ml # Voids 2 Laboratory Tests 06/24/18 04:00: White Blood Count 9.4, Red Blood Count 2.67L, Hemoglobin 7.9L, Hematocrit 25.6L , Mean Corpuscular Volume 96, Mean Corpuscular Hemoglobin 29.5, Mean Corpuscular Hemoglobin Concent 30.8L, Red Cell Distribution Width 21.7H, Platelet Count 188, Mean Platelet Volume 7.8, Neutrophils (%) (Auto) , Lymphocytes (%) (Auto) , Monocytes (%) (Auto) , Eosinophils (%) (Auto) , Basophils (%) (Auto) , Differential Total Cells Counted 100, Neutrophils % ( Manual) 71, Lymphocytes % (Manual) 19L, Monocytes % (Manual) 7, Eosinophils % ( Manual) 3, Basophils % (Manual) 0, Band Neutrophils 0, Platelet Estimate Adequate, Platelet Morphology Normal, Hypochromasia 1+, Anisocytosis 2+ Height (Feet): 5 Height (Inches): 2.00 Weight (Pounds): 164 Objective WDWN on trach reduced breath sounds bilaterally without rhonchi or wheeze S1S2 RRR without MRG NABS nontender no HSM; GT in place no CCE weak Jesus Lew MD Jun 24, 2018 08:51
--- NOTE | 2018-06-24 09:05 | NUR ---
Placed Patient on PSV +6 per Nurse Tessa to evaluate for swallow test. On PSV +6, Patient RR increased to >35BPM while VT decreased to <150mL. Then placed Patient on SIMV RR 12, VT 500, PS +6 PEEP +0 to see if she would tolerate better, however RR remained >35BPM and patient became SOB. Placed Patient back on ACVC RR 12 VT 500 PEP +5. Patient tolerating ACVC well. Rosalie RT and Tessa RN made aware.
--- NOTE | 2018-06-24 10:24 | Infectious Diseases Prog Note ---
"Assessment/Plan Assessment/Plan antibiotics : vancomycin iv, levoquin A 1. klebsiella | streptococcus pneumonia 2. herpes of lip s/p rx 3. diabetic ketoacidosis resolved 4. respiratory failure s/p tracheostomy 5. hypertension 6. leucocytosis resolved 7. renal failure P 1. continue po levoquin 2. d/c iv vancomycin 3. will follow up cultures Subjective ROS Limited/Unobtainable: Yes Allergies: Coded Allergies: SHELLFISH DERIVED (Verified Allergy, Unknown, swelling and itchiness, 05/14) Objective Vital Signs Last 24 Hour Vital Signs Date Time Temp Pulse Resp B/P (MAP) Pulse Ox O2 Delivery O2 Flow Rate FiO2 06/24/18 08:39 103 116/73 06/24/18 08:39 103 116/73 06/24/18 08:00 Mechanical Ventilator 06/24/18 08:00 99.9 103 20 116/73 (87) 97 06/24/18 08:00 105 06/24/18 08:00 30 06/24/18 05:27 101 21 30 06/24/18 05:08 136/55 06/24/18 04:00 99.3 95 22 119/65 (83) 99 06/24/18 04:00 93 06/24/18 04:00 Mechanical Ventilator 06/24/18 04:00 30 06/24/18 03:21 94 17 30 06/24/18 01:01 89 18 30 06/24/18 00:22 136/55 06/24/18 00:00 30 06/24/18 00:00 97 06/24/18 00:00 100.8 104 24 114/86 (95) 97 06/24/18 00:00 Mechanical Ventilator 06/23/18 23:28 98 24 30 06/23/18 20:37 112 19 30 06/23/18 20:04 105 136/55 06/23/18 20:00 30 06/23/18 20:00 Mechanical Ventilator 06/23/18 20:00 106 06/23/18 20:00 100.5 105 24 136/55 (82) 99 06/23/18 17:45 83 120/61 06/23/18 17:44 120/61 06/23/18 17:00 83 22 30 06/23/18 16:00 30 06/23/18 16:00 30 06/23/18 16:00 104 06/23/18 16:00 Mechanical Ventilator 06/23/18 16:00 97.6 96 27 120/61 (80) 96 06/23/18 15:30 81 18 30 06/23/18 12:30 79 18 30 06/23/18 12:00 99 06/23/18 12:00 98.6 99 21 111/65 (80) 95 06/23/18 12:00 30 06/23/18 12:00 111/65 06/23/18 12:00 Mechanical Ventilator 06/23/18 10:30 82 20 30 Height (Feet): 5 Height (Inches): 2.00 Weight (Pounds): 164 HEENT: status post trach Respiratory/Chest: lungs clear Cardiovascular: normal rate, regular rhythm, no gallop/murmur Abdomen: soft, non tender, other - GT Extremities: other - + edema, left arm PICC Microbiology Date/Time Source Procedure Growth Status 06/22/18 22:00 Sputum Gram Stain - Final Resulted 06/22/18 22:00 Sputum Sputum Culture Pending Resulted Laboratory Tests Test 06/24/18 04:00 White Blood Count 9.4 K/UL (4.8-10.8) Red Blood Count 2.67 M/UL (4.20-5.40) L Hemoglobin 7.9 G/DL (12.0-16.0) L Hematocrit 25.6 % (37.0-47.0) L Mean Corpuscular Volume 96 FL (80-99) Mean Corpuscular Hemoglobin 29.5 PG (27.0-31.0) Mean Corpuscular Hemoglobin Concent 30.8 G/DL (32.0-36.0) L Red Cell Distribution Width 21.7 % (11.6-14.8) H Platelet Count 188 K/UL (150-450) Mean Platelet Volume 7.8 FL (6.5-10.1) Neutrophils (%) (Auto) % (45.0-75.0) Lymphocytes (%) (Auto) % (20.0-45.0) Monocytes (%) (Auto) % (1.0-10.0) Eosinophils (%) (Auto) % (0.0-3.0) Basophils (%) (Auto) % (0.0-2.0) Differential Total Cells Counted 100 Neutrophils % (Manual) 71 % (45-75) Lymphocytes % (Manual) 19 % (20-45) L Monocytes % (Manual) 7 % (1-10) Eosinophils % (Manual) 3 % (0-3) Basophils % (Manual) 0 % (0-2) Band Neutrophils 0 % (0-8) Platelet Estimate Adequate Platelet Morphology Normal Hypochromasia 1+ Anisocytosis 2+ Current Medications Medications (Trade) Dose Ordered Sig/Ellen Route PRN Reason Start Time Stop Time Status Last Admin Dose Admin Acetaminophen (Tylenol) 650 mg Q4H PRN GT Mild Pain/Temp > 100.5 06/19/18 13:45 07/19/18 13:44 06/23/18 05:47 Al Hydroxide/Mg Hydroxide (Mylanta) 30 ml Q6H PRN ORAL Abdominal cramps 06/19/18 03:14 07/02/18 03:13 Amlodipine Besylate (Norvasc) 5 mg BID ORAL 06/19/18 09:00 06/28/18 08:59 06/24/18 08:39 Chlorhexidine Gluconate (Leora-Hex 2%) 1 applic DAILY@1999 TOPIC 06/19/18 20:00 06/24/18 19:59 06/23/18 20:04 Enoxaparin Sodium (Lovenox) 80 mg Q24H SUBQ 06/19/18 09:00 07/03/18 08:59 06/24/18 08:42 Haloperidol Lactate (Haldol) 5 mg Q6H PRN IM Agitation 06/19/18 03:14 07/02/18 03:13 Hydralazine HCl (Apresoline) 25 mg Q6HR ORAL 06/19/18 06:00 07/02/18 00:00 06/24/18 05:08 Insulin Aspart (NovoLOG) Q6HR SUBQ 06/19/18 06:00 07/08/18 16:29 06/24/18 05:09 Lansoprazole (Prevacid) 30 mg DAILY GT 06/19/18 09:00 07/11/18 08:59 06/24/18 08:39 Levofloxacin (Levaquin) 750 mg Q48H GT 06/20/18 12:00 06/27/18 11:59 06/22/18 12:35 Magnesium Hydroxide (Mom) 30 ml DAILYPRN PRN ORAL Constipation 06/19/18 03:14 07/02/18 03:13 Metoprolol Tartrate (Lopressor) 50 mg Q12HR ORAL 06/19/18 09:00 06/26/18 20:59 06/24/18 08:39 Miconazole Nitrate (Miconazole Nitrate) 1 applic BID TOPIC 06/19/18 09:00 07/09/18 18:29 06/24/18 08:41 Olanzapine (ZyPREXA) 2.5 mg BEDTIME ORAL 06/19/18 21:00 07/01/18 20:59 06/23/18 20:01 Vancomycin HCl (Vanco rx to dose) 1 ea DAILY PRN MISC Per rx protocol 06/20/18 10:15 07/20/18 10:14 Khadra Melendez MD Jun 24, 2018 10:24"
--- NOTE | 2018-06-24 10:24 | NUR ---
ST NOTE: BEDSIDE SWALLOW EVAL RECEIVED BEDSIDE SWALLOW EVAL ORDER(RE-ASSESSMENT) CHART REVIEWED PRIOR THE EVALUATION REFERRED BY DR. JACKSON. PT IS A 72-YEAR-OLD FEMALE WAS ADMITTED DUE TO SEPSIS. DYSPHAGIA RISK FACTORS: ACUTE ABDOMINAL PAIN, SORE THROAT, DEHYDRATION, DIABETIC KETOACIDOSIS, WEAKNESS, FATIGUE, ALBUMIN 3.1 AND A/G RATIO .08, PROTEIN-AVANI MALNUTRITION, PANCREATITIS, ORAL ULCERS. H/O OLD CVAS, PNA, SEPSIS, RESP FAILURE, COPD, CABG, DM (ON INSULIN DRIP), CHF EXACERBATION, GOUT, CARDIAC BYPASS GRAFT SURGERY. PT RECEIVED 8 MAORI SHILEY TRACHEOSTOMY WITH CUFF ON 06/17/18 DUE TO RESP INSUFFICIENCY AND PEG PLACEMENT ON 06/18/18. RECENT HEAD CT SCAN: SMALL SUBACUTE CORTICAL INFARCT RIGH PARIETAL, MULTIPLE OLD INFARCTS, ENCEPHALOMALACIA RIGHT CEREBELLAR AREA. MOST RECENT CXR Interstitial and airspace edema, cardiomegaly, likely small bilateral pleural effusions persist, may be slightly increased. Tracheostomy, left arm PICC remain PER BEDSIDE SWALLOW EVAL ON 06/07/18: PRIOR DIET UNKNOWN PER DAUGHTER, COUGHED WITH TSP OF THIN LIQUID CURRENTLY ON A CCHO MED RENAL DIET PUREED AND HONEY THICK LIQUIDS WITH POOR INTAKE 25 MOSTLY 75% ONE TIME (NO OVERT ASP WITH MEAL PER HER DTR EXCEPT FOR ON ONE TSP WATER). LIKES ICE CHIPS. PER RD RECOMMENDS CCHO-LOW LOW NA LOW FT DIET WITH GLUCERNA ONE TETRA PACK BID AND IS OBESE CLASS I INITIAL IMPRESSIONS: ALERT WITH CUES (VERY TIRED) MILD-?MODERATE OROPHARYNGEAL DYSPHAGIA WITH MILD INCREASE IN ORAL PREP AND OROPHARYNGEAL TRANSIT TIMES. NO OVERT S/S OF ASPIRATION WITH PO TRIALS OF NECTAR THICK TSP AND PUREED TSP BUT HAS RISK FOR SILENT ASPIRATION (CVA HX AND ONE SUBACUTE) AND NEEDS BIPAP MOST OF THE TIME (NOW ONLY ON 4 LITERS NC) BUT HAS SOME SOB AFTER THE SWALLOW. PATIENT HAD S/S OF OVERT ASP WITH THIN LIQUIDS TSP PER DTR SO TRIAL NOT GIVEN. TOO SOB FOR MASTICATED SOLID TRIAL FOR NOW. REDUCED LIP CLOSURE/SEAL ON RIGHT AND SLOWER AND WEAKER TONGUE MOVEMENTS. VOICE AND COUGH VERY WEAK IS ADDED ASP RISK. RECOMMENDATIONS: IF PO CONTINUES FOR QOL, CONSIDER KEEP ON PUREED AND UPGRADE TO NECTAR THICK LIQUIDS (DISLIKES HONEY THICK PER DTR) USING POSTED ASP PREC. VANE STUDY WAS RECOMMENDED BUT UNABLE TO COMPLETE AT THAT TIME CONSIDER CHANGING DIET TYPE TO CCHO-LOW LOW NA AND LF PER RD (SEE THEIR NOTE) CURRENT STATUS: PT SEEN AT BEDSIDE IN AM. ALERT, COOPERATIVE, FOLLOWS SIMPLE DIRECTIONS, PT IS ON VENTILATOR, FIO2: 30%, 8 MAORI SHILEY TRACHEOSTOMY. RT PRESENTED. PT WAS ABLE TO VOICE WHEN CUFF INFLATED, VOICE IS CLEAR. ATTEMPTED CPAP AND SIMV SETTING, PT INCREASED BREATHING RATE: >30s AND VITAL VOLUME WAS LOW. SHALLOW BREATHING WAS NOTED. NO CUFF DEFLATION AT THIS TIME. MILDLY REDUCED LABIAL AND LINGUAL MOVEMENT. MILDLY REDUCED LARYNGEAL ELEVATION. HAS HIGH RISK FOR ASPIRATION. RECOMMENDATIONS: 1. CUFF DEFLATION/PMV TRIALS TOLERATED 2. MODIFIED BARIUM SWALLOW STUDY WHEN PT IS READY IP OR OP(DO NOT HOLD UP THE DISCHARGE. 3. BREATHING EXS. ' 4. SPEECH/LANGUAGE/COG EVAL 5. CONTINUE LONG-TERM NONORAL FEEDING MEANS TO MEET NUTRITION AND HYDRATION NEEDS. D/W PT AND RN, JESSEE. POSTED NPO SIGN. Addendum: 06/24/18 at 1116 by CARLENE REYNA YARN FINISHER EDUCATED PT'S CAREGIVER RE:PT'S CONDITIONS AND POC.
--- NOTE | 2018-06-24 10:43 | NUR ---
RD ASSESSMENT & RECOMMENDATIONS SEE CARE ACTIVITY FOR COMPLETE ASSESSMENT DAILY ESTIMATED NEEDS: Needs based on DM, cardiac, critical care/ 54kg abw 22-28 kcals/kg 7090-2194 total kcals 1.2-2 g protein/kg 65-108 g total protein 25-30 mL/kg 4386-4324 total fluid mLs NUTRITION DIAGNOSIS: 1) Altered nutrition related lab values R/T diabetes, clinical condition as evidenced by A1C 11.4, increased from 8.1 in August 2017, DKA w/ adm VT=187-> 147-242, elev BNP (79484), elev creat (2.0), elev LFTs, trending back down, elev lipase (>2000 -> 554 trend down). 2) Swallowing difficulty R/T dysphagia, h/o old CVA + subacute CVA, decreased alertness, respiratory status as evidenced by pt is now s/p trach and s/p PEG placement.(UPDATED) CURRENT TF:Glucerna 1.2 @ 5ml/hr x 24 hrs ENTERAL NUTRITION RECOMMENDATIONS: Glucerna 1.2 @ 55ml/hr x 24 hrs to provide 1320ml, 1584Kcal, 79g prot, 1063ml free water * At goal meets 105% est kcal, 100% est prot needs * HOB over 30 degrees/ water flush per MD ADDITIONAL RECOMMENDATIONS: 1) RE-calibrated bed wt for accurate CBW 2) TF recs as above as medically appropriate 3) Consider long acting insulin for improved BG control 4) Monitor lytes closely, replete as needed rec to check f/up phos and mag 5) Updated BNP, need for formula w/ less free fluid -> Rec increased free water flushes for elev NA, elev BUN
--- NOTE | 2018-06-24 10:43 | NUR ---
RD ASSESSMENT & RECOMMENDATIONS SEE CARE ACTIVITY FOR COMPLETE ASSESSMENT DAILY ESTIMATED NEEDS: Needs based on DM, cardiac, critical care/ 54kg abw 22-28 kcals/kg 0721-9650 total kcals 1.2-2 g protein/kg 65-108 g total protein 25-30 mL/kg 5545-7680 total fluid mLs NUTRITION DIAGNOSIS: 1) Altered nutrition related lab values R/T diabetes, clinical condition as evidenced by A1C 11.4, increased from 8.1 in August 2017, DKA w/ adm OL=109-> 147-242, elev BNP (24244), elev creat (2.0), elev LFTs, trending back down, elev lipase (>2000 -> 554 trend down). 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 CURRENT TF:Glucerna 1.2 @ 5ml/hr x 24 hrs PO DIET RECOMMENDATIONS: . ENTERAL NUTRITION RECOMMENDATIONS: Glucerna 1.2 @ 55ml/hr x 24 hrs to provide 1320ml, 1584Kcal, 79g prot, 1063ml free water * At goal meets 105% est kcal, 100% est prot needs * HOB over 30 degrees/ water flush per MD PARENTERAL NUTRITION RECOMMENDATIONS: D/AA Rate: IL Rate: Total Rate: Volume: % Dextrose: % AA: Energy (kcals/kg): Protein (g/kg protein): Nonprotein KCALS: GIR (mg CHO/kg/min): % Fat KCALS: NCP: N Ratio: TPN Comment: ADDITIONAL RECOMMENDATIONS: 1) RE-calibrated bed wt for accurate CBW 2) TF recs as above as medically appropriate 3) Consider long acting insulin for improved BG control 4) Monitor lytes closely, replete as needed rec to check f/up phos and mag 5) Updated BNP, need for formula w/ less free fluid -> Rec increased free water flushes for elev NA, elev BUN
[2018-06-24 12:00] VITALS: BP 113/72
[2018-06-24] MEDS: Levofloxacin 750mg tab GT SCH (12:04)
[2018-06-24 16:00] VITALS: BP 107/71
--- NOTE | 2018-06-24 16:31 | General Progress Note ---
Assessment/Plan Assessment/Plan Assessment and Recs: # Pancytopenia -- appears that initial hep and hiv are negative though final results to follow, liver shows no major hsm or cirrhosis, may consider meds or bone marrow process, smear reviewed, does have low albumin, has been hospitalized for some time, in and out since 04/30/18. Hiv and hepatitis panels are both negative --> query meds, review with ID, is on micafungin now, monitor counts closely --> given hgb downtrending and some nucleated reds on smear, will send off a flow cytometry --> nepogen 300mcg sq to maintain anc >1500 --> wbc trend : 1.7-->4.3-->3.1-->3.4-->7.7-->8.1--12-->15-->11-->14.6-->9 # Anemia of chronic disease - monitor anemia panel --> hemolysis does not appear to be the case --> anemia panel reviewed and c/w acd --> hgb trend: 8.3-->9.2-->8.9-->8.7-->9-->7.7-->7--->8 # Paroxysmal atrial fibrillation, due to CHADS-VASC score of 5, we require to keep anticoagulated, on metoprolol --> off apixban/now on lovenox # Hx of CAD, s/p CABG, ASA , atorvastatin and metoprolol. No wall motion abnormalities on Echo. LVEF ~55%. --> appreciate cards recs # Sinus tachycardia due to hypovolemia, resolved. # DKA, resolved. --> continue monitor # DM, non-compliant with medications. # Hx of HTN, controlled with metoprolol. # pancreatitis -- appreciate gi recs # increased LFT # Resp failure s/p trach/vent The timing of this note does not necessarily reflect the time of the patient was seen. Greatly appreciate consultation! Subjective Allergies: Coded Allergies: SHELLFISH DERIVED (Verified Allergy, Unknown, swelling and itchiness, 05/14) Subjective 05/18: Pt is awake and comfortable, no events, leukopenia improved, wbc 4.3, plt 151 05/19: seen by bedside, awake, comfortable, plt 122 05/20: Pt is awake and comfortable, no events 2: Pt is seen in the room, resting in bed, no fevers or chills, wbc 8.7, plt 117 05/23: Pt is resting in bed, awake, comfortable, no fevers or chills, no acute distress. 05/24: EGD and EUS done today, has no gallbladder stones, only pancreatitis, no events 05/25: no events, dermatitis has improved, off loading of heels, pancreatitis and dka better 05/26: Pt is awake, comfortable, no acute events overnight, hgb 8.6 05/27: seen by bedside, awake, comfortable, no events 05/28: resting in bed, awake, comfortable, no fevers or chills, no acute distress , No need for ERCP per GI, 05/31: Pt is awake and comfortable, no events 06/01: awake, comfortable, denies acute distress. 06/02: seen by bedside, awake, comfortable, no acute distress. wbc 15. 06/03: no acute events, denies any abdominal pain, wbc trending down at 11 today. 06/04: awake/drowsy in bed, breathing easily on nasal cannula, denies SOB and pain at this time. 06/06: anemia cotninues to worsen, may consider a bone marrow biopsy if patient approves 06/07: hgb 9.7, not eating well, remains lethargic 06/08: hgb is stable, respiratory status is worsened, and thus was transferred to the icu 06/09: seen by bedside,awake, comfortable, plan to insert NGT samanta 06/10: not eating well, remains lethargic 06/11: poor po intake but currently on BIPAP and not stable for PEG placement, NGTF on hold per pulm 06/13:Seen by bedside, less confused, on BIPAP, no events 06/14: seen by bedside, on BIPAP, NJT feeds, no events 06/15: On BIPAP, Less confused, NJT feeds started, no events 06/16: awake, comfortable, NJT in place, more alert, on BIPAP, agreed to trach 06/17: Trach done today, PEG scheduled for am, no acute distress 06/18: PEG placement done by Dr Jewell, tolerated well , tube feeding from tomorrow AM , no events, hgb 8.3 06/20: is in the sdu, no events, h/h relatively stable, s/p peg, tolerating feeds well 06/21: gt and trach in place, has more congestion, no events reported, cbc reviewed. 06/22: awake, alert, vent dependent, tolerating GT feeding well, no events 06/23: no events, remains in the sdu, without complaints, hgb 7.8 06/24: seen by bedside, gt and trach in place, on vent, hgb 7.9, plt 188 Objective Last 24 Hour Vital Signs Date Time Temp Pulse Resp B/P (MAP) Pulse Ox O2 Delivery O2 Flow Rate FiO2 06/24/18 16:00 30 06/24/18 16:00 Mechanical Ventilator 06/24/18 15:21 95 22 30 06/24/18 13:15 73 21 30 06/24/18 12:04 113/72 06/24/18 12:00 98.1 85 16 113/72 (86) 96 06/24/18 12:00 83 06/24/18 12:00 Mechanical Ventilator 06/24/18 12:00 30 06/24/18 11:28 79 26 30 06/24/18 09:29 97 19 30 06/24/18 08:39 103 116/73 06/24/18 08:39 103 116/73 06/24/18 08:00 Mechanical Ventilator 06/24/18 08:00 88 19 30 06/24/18 08:00 99.9 103 20 116/73 (87) 97 06/24/18 08:00 105 06/24/18 08:00 30 06/24/18 05:27 101 21 30 06/24/18 05:08 136/55 06/24/18 04:00 99.3 95 22 119/65 (83) 99 06/24/18 04:00 93 06/24/18 04:00 Mechanical Ventilator 06/24/18 04:00 30 06/24/18 03:21 94 17 30 06/24/18 01:01 89 18 30 06/24/18 00:22 136/55 06/24/18 00:00 30 06/24/18 00:00 97 06/24/18 00:00 100.8 104 24 114/86 (95) 97 06/24/18 00:00 Mechanical Ventilator 06/23/18 23:28 98 24 30 06/23/18 20:37 112 19 30 06/23/18 20:04 105 136/55 06/23/18 20:00 30 06/23/18 20:00 Mechanical Ventilator 06/23/18 20:00 106 06/23/18 20:00 100.5 105 24 136/55 (82) 99 06/23/18 17:45 83 120/61 06/23/18 17:44 120/61 06/23/18 17:00 83 22 30 Intake and Output 06/23/18 06/24/18 19:00 07:00 Intake Total 750 ml 760 ml Output Total 230 ml 400 ml Balance 520 ml 360 ml Free Water 200 ml 100 ml Tube Feeding 550 ml 660 ml Output Urine Total 150 ml 400 ml Stool Total 80 ml # Voids 2 Laboratory Tests 06/24/18 04:00: White Blood Count 9.4, Red Blood Count 2.67L, Hemoglobin 7.9L, Hematocrit 25.6L , Mean Corpuscular Volume 96, Mean Corpuscular Hemoglobin 29.5, Mean Corpuscular Hemoglobin Concent 30.8L, Red Cell Distribution Width 21.7H, Platelet Count 188, Mean Platelet Volume 7.8, Neutrophils (%) (Auto) , Lymphocytes (%) (Auto) , Monocytes (%) (Auto) , Eosinophils (%) (Auto) , Basophils (%) (Auto) , Differential Total Cells Counted 100, Neutrophils % ( Manual) 71, Lymphocytes % (Manual) 19L, Monocytes % (Manual) 7, Eosinophils % ( Manual) 3, Basophils % (Manual) 0, Band Neutrophils 0, Platelet Estimate Adequate, Platelet Morphology Normal, Hypochromasia 1+, Anisocytosis 2+ Height (Feet): 5 Height (Inches): 2.00 Weight (Pounds): 164 Objective PHYSICAL EXAMINATION: GENERAL: Pleasant [place] woman, tired HEENT: Normocephalic and atraumatic. Sclerae anicteric. Oropharynx clear. NECK: Supple Trach++/vent CHEST: bilateral crackles and ++ nc CARDIOVASCULAR: Revealed regular rate. ABDOMEN: Soft. Good bowel sounds. PEG++ EXTREMITIES: Revealed no edema. Armando Bowen MD Jun 24, 2018 16:31
--- NOTE | 2018-06-24 17:20 | NUR ---
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
--- NOTE | 2018-06-24 19:04 | NUR ---
RESPIRATORY NOTE: Received pt on AC 12, 500VT, 30%, no PEEP. Pt is trach-dependent w/ a cuffed, Shiley 8 tube. Pt is alert/awake, follows commands. B/S darin. diminished, sxn minimal amounts of thick/thin, cheung-yellow secretions. Vent plugged into red outlet, ambubag at bedside. Pt resting comfortably, in no apparent distress at this time. Will continue plan of care.
--- NOTE | 2018-06-24 19:18 | NUR ---
HAND-OFF: Report given to WAYNE De La Vega. Pt in stable condition.
--- NOTE | 2018-06-24 19:30 | NUR ---
NURSE NOTES: Received the report from WAYNE Medley. Observed pt sleeping on the bed, arousable by voice. A/O x4, denies any pain at this time. SR with residential monitor. Trac to vent, shiley 8, AC 12, TD 500, FIO2 30%. GT intact and running Glucerna 1.2 at 55cc/hr. Rectal tube intact and draining well. Purewick intact and connected to the suction. PICC double lumen on L UA, intact and TKO. Bed in the lowest position. Side rails up x3. Will continue to monitor.
[2018-06-24 20:00] VITALS: BP 109/58
[2018-06-24] MEDS: OLANZapine 2.5mg tab ORAL SCH (21:06)
[2018-06-24] MEDS ORDERED: Dyna-Hex 2% Top Sol 2oz TOPIC SCH (21:45)
--- NOTE | 2018-06-24 23:02 | General Progress Note ---
Assessment/Plan Assessment/Plan Assessment - Respiratory failure - Acute pancreatitis - Anemia - dysphagia - s/p PEG - Azotemia - Urolithiasis - Cholelithiasis - DM - needs better control - CAD/CABG - Gout - elevated alk phos Recommendations - Pulmonary care - Tube feeds - follow labs and exam - elevate HOB - GT hydration - BID NPH Subjective Allergies: Coded Allergies: SHELLFISH DERIVED (Verified Allergy, Unknown, swelling and itchiness, 05/14) Subjective above noted tolerating TF labs noted (+) rectal tube for liq stools Objective Last 24 Hour Vital Signs Date Time Temp Pulse Resp B/P (MAP) Pulse Ox O2 Delivery O2 Flow Rate FiO2 06/24/18 21:06 92 109/58 06/24/18 21:06 108 21 30 06/24/18 20:00 97 06/24/18 20:00 Mechanical Ventilator 06/24/18 20:00 99.3 92 22 109/58 (75) 99 06/24/18 20:00 30 06/24/18 19:02 91 22 30 06/24/18 17:53 98 107/71 06/24/18 17:52 107/71 06/24/18 17:05 78 26 30 06/24/18 16:00 98.9 100 20 107/71 (83) 99 06/24/18 16:00 98 06/24/18 16:00 30 06/24/18 16:00 Mechanical Ventilator 06/24/18 15:21 95 22 30 06/24/18 13:15 73 21 30 06/24/18 12:04 113/72 06/24/18 12:00 98.1 85 16 113/72 (86) 96 06/24/18 12:00 83 06/24/18 12:00 Mechanical Ventilator 06/24/18 12:00 30 06/24/18 11:28 79 26 30 06/24/18 09:29 97 19 30 06/24/18 09:09 98 06/24/18 08:39 103 116/73 06/24/18 08:39 103 116/73 06/24/18 08:00 Mechanical Ventilator 06/24/18 08:00 88 19 30 06/24/18 08:00 99.9 103 20 116/73 (87) 97 06/24/18 08:00 105 06/24/18 08:00 30 06/24/18 05:27 101 21 30 06/24/18 05:08 136/55 06/24/18 04:00 99.3 95 22 119/65 (83) 99 06/24/18 04:00 93 06/24/18 04:00 Mechanical Ventilator 06/24/18 04:00 30 06/24/18 03:21 94 17 30 06/24/18 01:01 89 18 30 06/24/18 00:22 136/55 06/24/18 00:00 30 06/24/18 00:00 97 06/24/18 00:00 100.8 104 24 114/86 (95) 97 06/24/18 00:00 Mechanical Ventilator 06/23/18 23:28 98 24 30 Intake and Output 06/23/18 06/24/18 18:59 06:59 Intake Total 740 ml 660 ml Output Total 230 ml 400 ml Balance 510 ml 260 ml Free Water 200 ml Tube Feeding 540 ml 660 ml Output Urine Total 150 ml 400 ml Stool Total 80 ml # Voids 2 Laboratory Tests 06/24/18 04:00: White Blood Count 9.4, Red Blood Count 2.67L, Hemoglobin 7.9L, Hematocrit 25.6L , Mean Corpuscular Volume 96, Mean Corpuscular Hemoglobin 29.5, Mean Corpuscular Hemoglobin Concent 30.8L, Red Cell Distribution Width 21.7H, Platelet Count 188, Mean Platelet Volume 7.8, Neutrophils (%) (Auto) , Lymphocytes (%) (Auto) , Monocytes (%) (Auto) , Eosinophils (%) (Auto) , Basophils (%) (Auto) , Differential Total Cells Counted 100, Neutrophils % ( Manual) 71, Lymphocytes % (Manual) 19L, Monocytes % (Manual) 7, Eosinophils % ( Manual) 3, Basophils % (Manual) 0, Band Neutrophils 0, Platelet Estimate Adequate, Platelet Morphology Normal, Hypochromasia 1+, Anisocytosis 2+ Height (Feet): 5 Height (Inches): 2.00 Weight (Pounds): 164 Objective WDWN NCAT Neck (+) trach Coarse BS RRR abd soft, ND, (+) GT restrained, confused Mary Jewell MD Jun 24, 2018 23:02
--- NOTE | 2018-06-24 23:59 | Cardiology Progress Note ---
Assessment/Plan Assessment/Plan 1. Paroxysmal atrial fibrillation, in sinus rhythm now, due to CHADS-VASC score of 5, continue enoxaparin and metoprolol. 2. Hx of CAD, s/p CABG, ASA , atorvastatin and metoprolol. 3. Acute heart failure with normal EF, continue spot doses of lasix. 4. DM with DKA on admission. 5. HTN, well controlled, continue amlodipine, metoprolol and hydralazine. 6. Severe pulmonary HTN. 7. MAMADOU on CKD, creat up to 2.0. Subjective Subjective Sinus rhythm at rate of 92. Intubated on FiO2 of 30%. Objective Last 24 Hour Vital Signs Date Time Temp Pulse Resp B/P (MAP) Pulse Ox O2 Delivery O2 Flow Rate FiO2 06/24/18 23:53 104/55 06/24/18 23:25 92 19 30 06/24/18 21:06 92 109/58 06/24/18 21:06 108 21 30 06/24/18 20:00 97 06/24/18 20:00 Mechanical Ventilator 06/24/18 20:00 99.3 92 22 109/58 (75) 99 06/24/18 20:00 30 06/24/18 19:02 91 22 30 06/24/18 17:53 98 107/71 06/24/18 17:52 107/71 06/24/18 17:05 78 26 30 06/24/18 16:00 98.9 100 20 107/71 (83) 99 06/24/18 16:00 98 06/24/18 16:00 30 06/24/18 16:00 Mechanical Ventilator 06/24/18 15:21 95 22 30 06/24/18 13:15 73 21 30 06/24/18 12:04 113/72 06/24/18 12:00 98.1 85 16 113/72 (86) 96 06/24/18 12:00 83 06/24/18 12:00 Mechanical Ventilator 06/24/18 12:00 30 06/24/18 11:28 79 26 30 06/24/18 09:29 97 19 30 06/24/18 09:09 98 06/24/18 08:39 103 116/73 06/24/18 08:39 103 116/73 06/24/18 08:00 Mechanical Ventilator 06/24/18 08:00 88 19 30 3/7/19 08:00 99.9 103 20 116/73 (87) 97 06/24/18 08:00 105 06/24/18 08:00 30 06/24/18 05:27 101 21 30 06/24/18 05:08 136/55 06/24/18 04:00 99.3 95 22 119/65 (83) 99 06/24/18 04:00 93 06/24/18 04:00 Mechanical Ventilator 06/24/18 04:00 30 06/24/18 03:21 94 17 30 06/24/18 01:01 89 18 30 06/24/18 00:22 136/55 06/24/18 00:00 30 06/24/18 00:00 97 06/24/18 00:00 100.8 104 24 114/86 (95) 97 06/24/18 00:00 Mechanical Ventilator Intake and Output 06/23/18 06/24/18 18:59 06:59 Intake Total 740 ml 660 ml Output Total 230 ml 400 ml Balance 510 ml 260 ml Free Water 200 ml Tube Feeding 540 ml 660 ml Output Urine Total 150 ml 400 ml Stool Total 80 ml # Voids 2 2D Echo: EF55%,Mild LVH,Mod MR,Mild AR,RVSP 67 mmHg (severe PHT),Restrictive LV phy Laboratory Tests Test 06/24/18 04:00 White Blood Count 9.4 K/UL (4.8-10.8) Red Blood Count 2.67 M/UL (4.20-5.40) L Hemoglobin 7.9 G/DL (12.0-16.0) L Hematocrit 25.6 % (37.0-47.0) L Mean Corpuscular Volume 96 FL (80-99) Mean Corpuscular Hemoglobin 29.5 PG (27.0-31.0) Mean Corpuscular Hemoglobin Concent 30.8 G/DL (32.0-36.0) L Red Cell Distribution Width 21.7 % (11.6-14.8) H Platelet Count 188 K/UL (150-450) Mean Platelet Volume 7.8 FL (6.5-10.1) Neutrophils (%) (Auto) % (45.0-75.0) Lymphocytes (%) (Auto) % (20.0-45.0) Monocytes (%) (Auto) % (1.0-10.0) Eosinophils (%) (Auto) % (0.0-3.0) Basophils (%) (Auto) % (0.0-2.0) Differential Total Cells Counted 100 Neutrophils % (Manual) 71 % (45-75) Lymphocytes % (Manual) 19 % (20-45) L Monocytes % (Manual) 7 % (1-10) Eosinophils % (Manual) 3 % (0-3) Basophils % (Manual) 0 % (0-2) Band Neutrophils 0 % (0-8) Platelet Estimate Adequate Platelet Morphology Normal Hypochromasia 1+ Anisocytosis 2+ Microbiology Date/Time Source Procedure Growth Status 06/22/18 22:00 Sputum Gram Stain - Final Resulted 06/22/18 22:00 Sputum Sputum Culture Pending Resulted Objective HEENT: Normocephalic, atraumatic, Pupils equally reactive to light and accommodation, EOMI. NECK: No JVD, no carotid bruit. CARDIOVASCULAR: Regular rate and rhythm. No murmurs, gallops or rubs. LUNGS: Clear to auscultation bilaterally. No crackles or Rhonchi. ABDOMEN: Soft and nontender. No organomegaly, + BS, + PEG in place. EXTREMITIES: No cyanosis, clubbing or edema. Miller Mckeon MD Jun 24, 2018 23:59
[2018-06-25] VITALS: BP 102/61
--- NOTE | 2018-06-25 03:51 | NUR ---
NURSE NOTES: Pt c/o dry mouth. Oral care done and offered ice chips. No signs of aspiration noted. Reposition done. Central dressing changed. Will continue to monitor.
[2018-06-25 04:00] VITALS: BP 103/60
--- NOTE | 2018-06-25 05:35 | NUR ---
NURSE NOTES: Urine output of 100cc for 10hrs. Bladder scanner done and 135ml noted. Will continue to monitor.
[2018-06-25 05:42] LABS: HEMATOCRIT 25.7 % (37.0-47.0); HEMOGLOBIN 7.8 G/DL (12.0-16.0); MEAN CORPUSCULAR VOLUME 96 FL (80-99); PLATELET COUNT 195 K/UL (150-450); RED BLOOD COUNT 2.69 M/UL (4.20-5.40); RED CELL DISTRIBUTION WIDTH 21.1 % (11.6-14.8)
[2018-06-25] MEDS: HydrALAZINE 25mg tab ORAL SCH ×3 (06:00→12:02)
[2018-06-25] MEDS: NovoLOG Insulin Flexpen SUBQ SCH ×2 (06:18→12:02)
[2018-06-25 06:19] LABS: ANION GAP 9 mmol/L (5-15); BLOOD UREA NITROGEN 56 mg/dL (7-18); CARBON DIOXIDE 26 MMOL/L (21-32); CHLORIDE 110 MMOL/L (98-107); CREATININE 2.5 MG/DL (0.55-1.30); POTASSIUM 5.5 MMOL/L (3.5-5.1); SODIUM 145 MMOL/L (136-145)
[2018-06-25 06:20] LABS: ALANINE AMINOTRANSFERASE 44 U/L (12-78); ALBUMIN 2.3 G/DL (3.4-5.0); ALBUMIN/GLOBULIN RATIO 0.5 (1.0-2.7); ALKALINE PHOSPHATASE 742 U/L (46-116); AMYLASE 170 U/L (25-115); ASPARTATE AMINO TRANSFERASE 54 U/L (15-37); BILIRUBIN,TOTAL 0.5 MG/DL (0.2-1.0); CALCIUM 8.4 MG/DL (8.5-10.1)
[2018-06-25] MEDS ORDERED: Insulin NPH SUBQ SCH (06:30)
--- NOTE | 2018-06-25 07:05 | NUR ---
Received Patient on Vent ACVC RR 12, VT 500, Fio2 30%, PEEP +0. Patient is trached with a cuffed Shiley 8 tracheostomy tube, secured with tracheostomy ties. Bilateral rhonchi heard upon auscultation. Suction thick white secretions via tracheostomy as needed. Patient alert and awake, lying comfortable in bed. Vent plugged into red outlet. Alarms on and audible. Will continue to monitor the patient throughout the day.
--- NOTE | 2018-06-25 07:20 | NUR ---
NURSE NOTES: Report given to WAYNE Medley. No acute distress noted at this time.
--- NOTE | 2018-06-25 07:30 | NUR ---
NURSE NOTES: Informed Dr. Lew regarding elevated potassium level with new order. Order carried out.
--- NOTE | 2018-06-25 07:47 | NUR ---
NURSE NOTES: Report received from WAYNE De La Vega. Observed patient in bed. Awake and oriented but non-verbal. Trach to vent with previous setting. Pt. is tolerated well with vent setting. Denies pain at this time. PICC line intact and patent. GT site intact with ongoing feeding. HOB elevated. No residual noted. Bed in lowest position. Call light within reach. Will continue to monitor.
[2018-06-25 08:00] VITALS: BP 117/70
[2018-06-25] MEDS ORDERED: Sodium Polystyrene Sulfon/Sorb 15gm/60ml Susp ORAL ONE (08:30)
--- NOTE | 2018-06-25 09:22 | NUR ---
Attempted to wean Patient. Placed on PS +8 PEEP +5 fio2 30%. Patient immediately became short of breath. Placed back on AC RN made aware.
[2018-06-25] MEDS: Enoxaparin 80mg Inj SUBQ SCH (09:30)
[2018-06-25] MEDS: Miconazole 2% Cream 30gm TOPIC SCH (09:33)
[2018-06-25] MEDS: Metoprolol Tartrate 50mg tab ORAL SCH (09:33)
--- NOTE | 2018-06-25 10:21 | Infectious Diseases Prog Note ---
"Assessment/Plan Assessment/Plan antibiotics : levoquin A 1. klebsiella | streptococcus pneumonia s/p rx 2. herpes of lip s/p rx 3. diabetic ketoacidosis resolved 4. respiratory failure s/p tracheostomy 5. hypertension 6. leucocytosis resolved 7. renal failure P 1. d/c po levoquin 2. observe off antibiotics Subjective ROS Limited/Unobtainable: Yes Allergies: Coded Allergies: SHELLFISH DERIVED (Verified Allergy, Unknown, swelling and itchiness, 05/14) Objective Vital Signs Last 24 Hour Vital Signs Date Time Temp Pulse Resp B/P (MAP) Pulse Ox O2 Delivery O2 Flow Rate FiO2 06/25/18 09:34 100 117/70 06/25/18 09:33 100 117/70 06/25/18 09:21 99 06/25/18 09:20 98 28 30 06/25/18 08:00 100 06/25/18 08:00 30 06/25/18 08:00 98.9 100 21 117/70 (86) 98 06/25/18 07:16 91 22 30 06/25/18 06:00 103/60 06/25/18 05:08 95 18 30 06/25/18 04:00 Mechanical Ventilator 06/25/18 04:00 93 06/25/18 04:00 30 06/25/18 04:00 98.6 91 15 103/60 (74) 98 06/25/18 03:05 93 18 30 06/25/18 01:02 90 24 30 06/25/18 00:00 30 06/25/18 00:00 99.5 94 16 102/61 (75) 98 06/25/18 00:00 104/55 06/25/18 00:00 91 06/25/18 00:00 Mechanical Ventilator 06/24/18 23:25 92 19 30 06/24/18 21:06 92 109/58 06/24/18 21:06 108 21 30 06/24/18 20:00 97 06/24/18 20:00 Mechanical Ventilator 06/24/18 20:00 99.3 92 22 109/58 (75) 99 06/24/18 20:00 30 06/24/18 19:02 91 22 30 06/24/18 17:53 98 107/71 06/24/18 17:52 107/71 06/24/18 17:05 78 26 30 06/24/18 16:00 98.9 100 20 107/71 (83) 99 06/24/18 16:00 98 06/24/18 16:00 30 06/24/18 16:00 Mechanical Ventilator 06/24/18 15:21 95 22 30 06/24/18 13:15 73 21 30 06/24/18 12:04 113/72 06/24/18 12:00 98.1 85 16 113/72 (86) 96 06/24/18 12:00 83 06/24/18 12:00 Mechanical Ventilator 06/24/18 12:00 30 06/24/18 11:28 79 26 30 Height (Feet): 5 Height (Inches): 2.00 Weight (Pounds): 183 Respiratory/Chest: lungs clear Cardiovascular: normal rate, regular rhythm, no gallop/murmur Abdomen: soft, non tender, other - GT Extremities: other - + edema, left arm PICC Microbiology Date/Time Source Procedure Growth Status 06/22/18 22:00 Sputum Gram Stain - Final Resulted 06/22/18 22:00 Sputum Culture - Preliminary Yeast Species Resulted Laboratory Tests Test 06/25/18 03:00 White Blood Count 10.0 K/UL (4.8-10.8) Red Blood Count 2.69 M/UL (4.20-5.40) L Hemoglobin 7.8 G/DL (12.0-16.0) L Hematocrit 25.7 % (37.0-47.0) L Mean Corpuscular Volume 96 FL (80-99) Mean Corpuscular Hemoglobin 29.1 PG (27.0-31.0) Mean Corpuscular Hemoglobin Concent 30.5 G/DL (32.0-36.0) L Red Cell Distribution Width 21.1 % (11.6-14.8) H Platelet Count 195 K/UL (150-450) Mean Platelet Volume 7.3 FL (6.5-10.1) Neutrophils (%) (Auto) % (45.0-75.0) Lymphocytes (%) (Auto) % (20.0-45.0) Monocytes (%) (Auto) % (1.0-10.0) Eosinophils (%) (Auto) % (0.0-3.0) Basophils (%) (Auto) % (0.0-2.0) Differential Total Cells Counted 100 Neutrophils % (Manual) 69 % (45-75) Lymphocytes % (Manual) 19 % (20-45) L Monocytes % (Manual) 10 % (1-10) Eosinophils % (Manual) 0 % (0-3) Basophils % (Manual) 2 % (0-2) Band Neutrophils 0 % (0-8) Platelet Estimate Adequate Platelet Morphology Normal Anisocytosis 2+ Sodium Level 145 MMOL/L (136-145) Potassium Level 5.5 MMOL/L (3.5-5.1) H Chloride Level 110 MMOL/L (98-107) H Carbon Dioxide Level 26 MMOL/L (21-32) Anion Gap 9 mmol/L (5-15) Blood Urea Nitrogen 56 mg/dL (7-18) H Creatinine 2.5 MG/DL (0.55-1.30) H Estimat Glomerular Filtration Rate 19.1 mL/min (>60) Glucose Level 265 MG/DL (74-106) H Calcium Level 8.4 MG/DL (8.5-10.1) L Total Bilirubin 0.5 MG/DL (0.2-1.0) Aspartate Amino Transf (AST/SGOT) 54 U/L (15-37) H Alanine Aminotransferase (ALT/SGPT) 44 U/L (12-78) Alkaline Phosphatase 742 U/L (46-116) H Total Protein 6.7 G/DL (6.4-8.2) Albumin 2.3 G/DL (3.4-5.0) L Globulin 4.4 g/dL Albumin/Globulin Ratio 0.5 (1.0-2.7) L Amylase Level 170 U/L (25-115) H Lipase 1722 U/L (73-393) H Current Medications Medications (Trade) Dose Ordered Sig/Ellen Route PRN Reason Start Time Stop Time Status Last Admin Dose Admin Acetaminophen (Tylenol) 650 mg Q4H PRN GT Mild Pain/Temp > 100.5 06/19/18 13:45 07/19/18 13:44 06/23/18 05:47 Al Hydroxide/Mg Hydroxide (Mylanta) 30 ml Q6H PRN ORAL Abdominal cramps 06/19/18 03:14 07/02/18 03:13 Amlodipine Besylate (Norvasc) 5 mg BID ORAL 06/19/18 09:00 06/28/18 08:59 06/25/18 09:34 Chlorhexidine Gluconate (Leora-Hex 2%) 1 applic DAILY@1999 TOPIC 06/25/18 20:00 07/25/18 19:59 Enoxaparin Sodium (Lovenox) 80 mg Q24H SUBQ 06/19/18 09:00 07/03/18 08:59 06/25/18 09:30 Haloperidol Lactate (Haldol) 5 mg Q6H PRN IM Agitation 06/19/18 03:14 07/02/18 03:13 Hydralazine HCl (Apresoline) 25 mg Q6HR ORAL 06/19/18 06:00 07/02/18 00:00 06/24/18 12:04 Insulin Aspart (NovoLOG) Q6HR SUBQ 06/19/18 06:00 07/08/18 16:29 06/25/18 06:18 Insulin Human NPH (Humulin N) 5 units BIAC SUBQ 06/25/18 06:30 07/25/18 06:29 06/25/18 09:31 Lansoprazole (Prevacid) 30 mg DAILY GT 06/19/18 09:00 07/11/18 08:59 06/25/18 09:33 Levofloxacin (Levaquin) 750 mg Q48H GT 06/20/18 12:00 06/27/18 11:59 06/24/18 12:04 Magnesium Hydroxide (Mom) 30 ml DAILYPRN PRN ORAL Constipation 06/19/18 03:14 07/02/18 03:13 Metoprolol Tartrate (Lopressor) 50 mg Q12HR ORAL 06/19/18 09:00 06/26/18 20:59 06/25/18 09:33 Miconazole Nitrate (Miconazole Nitrate) 1 applic BID TOPIC 06/19/18 09:00 07/09/18 18:29 06/25/18 09:33 Olanzapine (ZyPREXA) 2.5 mg BEDTIME ORAL 06/19/18 21:00 07/01/18 20:59 06/24/18 21:06 Khadra Melendez MD Jun 25, 2018 10:20"
--- NOTE | 2018-06-25 11:09 | NUR ---
[employer]PRENTICE SI:RESP FAILURE S/P TRACH/VENT DEPENDENT VS: BP117/70, P 100, T 98.9, RR 28 Sp02 98 VENT FiO2 30 RBC 2.69, Hgb 7.8, Hct 25.7, K 5.5, Chloride 110, CR 2.5, BUN 56, GLUCOSE 265, Ca 8.4 IS:Kayexalate Humulin N Amlodipine Lovenox Prevacid Lopressor Miconazole Nitrate Apresoline NovoLog SDU STATUS
--- NOTE | 2018-06-25 11:30 | NUR ---
NURSE NOTES: Asked Dr. Lew if he wants to keep PICC line upon discharge or not. said to keep PICC line and continue with hospital medications.
[2018-06-25 11:50] VITALS: BP 115/57
[2018-06-25 12:02] VITALS: BP 115/57
[2018-06-25] MEDS ORDERED: NS 275ml ONE ×2 (14:33)
[2018-06-25] MEDS ORDERED: D5W 275ml ONE (14:33)
[2018-06-25] MEDS ORDERED: Sterile Water For Irrig 2000ml IRRIG ONE (14:33)
[2018-06-25] MEDS ORDERED: Tubing IV Secondary IV ONE (14:33)
--- NOTE | 2018-06-25 14:33 | General Progress Note ---
Assessment/Plan Assessment/Plan Assessment - Respiratory failure - Pancreatitis - ongoing enzyme elevation concerning - Anemia - dysphagia - s/p PEG - Azotemia - Urolithiasis - Cholelithiasis - DM - needs better control - CAD/CABG - Gout - elevated alk phos Recommendations - Pulmonary care - Tube feeds - follow labs and exam - elevate HOB - GT hydration - BID NPH - check CT abd w/o contrast Subjective Allergies: Coded Allergies: SHELLFISH DERIVED (Verified Allergy, Unknown, swelling and itchiness, 05/14) Subjective above noted awake labs noted- Elevated amylase, lipase, and Cr noted Objective Last 24 Hour Vital Signs Date Time Temp Pulse Resp B/P (MAP) Pulse Ox O2 Delivery O2 Flow Rate FiO2 06/25/18 13:24 99 26 30 06/25/18 12:02 115/57 06/25/18 12:00 Mechanical Ventilator 06/25/18 12:00 30 06/25/18 12:00 94 06/25/18 11:50 99.0 92 18 115/57 (76) 97 06/25/18 11:15 95 22 30 06/25/18 09:34 100 117/70 06/25/18 09:33 100 117/70 06/25/18 09:21 99 06/25/18 09:20 98 28 30 06/25/18 08:00 100 06/25/18 08:00 30 06/25/18 08:00 98.9 100 21 117/70 (86) 98 06/25/18 08:00 Mechanical Ventilator 06/25/18 07:16 91 22 30 06/25/18 06:00 103/60 06/25/18 05:08 95 18 30 06/25/18 04:00 Mechanical Ventilator 06/25/18 04:00 93 06/25/18 04:00 30 06/25/18 04:00 98.6 91 15 103/60 (74) 98 06/25/18 03:05 93 18 30 06/25/18 01:02 90 24 30 06/25/18 00:00 30 06/25/18 00:00 99.5 94 16 102/61 (75) 98 06/25/18 00:00 104/55 06/25/18 00:00 91 06/25/18 00:00 Mechanical Ventilator 06/24/18 23:25 92 19 30 06/24/18 21:06 92 109/58 06/24/18 21:06 108 21 30 06/24/18 20:00 97 06/24/18 20:00 Mechanical Ventilator 06/24/18 20:00 99.3 92 22 109/58 (75) 99 06/24/18 20:00 30 06/24/18 19:02 91 22 30 06/24/18 17:53 98 107/71 06/24/18 17:52 107/71 06/24/18 17:05 78 26 30 06/24/18 16:00 98.9 100 20 107/71 (83) 99 06/24/18 16:00 98 06/24/18 16:00 30 06/24/18 16:00 Mechanical Ventilator 06/24/18 15:21 95 22 30 Intake and Output 06/24/18 06/25/18 19:00 07:00 Intake Total 860 ml 780 ml Output Total 600 ml 150 ml Balance 260 ml 630 ml Free Water 200 ml 120 ml Tube Feeding 660 ml 660 ml Output Urine Total 400 ml 100 ml Stool Total 200 ml 50 ml Laboratory Tests 06/25/18 03:00: White Blood Count 10.0, Red Blood Count 2.69L, Hemoglobin 7.8L, Hematocrit 25.7L , Mean Corpuscular Volume 96, Mean Corpuscular Hemoglobin 29.1, Mean Corpuscular Hemoglobin Concent 30.5L, Red Cell Distribution Width 21.1H, Platelet Count 195, Mean Platelet Volume 7.3, Neutrophils (%) (Auto) , Lymphocytes (%) (Auto) , Monocytes (%) (Auto) , Eosinophils (%) (Auto) , Basophils (%) (Auto) , Differential Total Cells Counted 100, Neutrophils % ( Manual) 69, Lymphocytes % (Manual) 19L, Monocytes % (Manual) 10, Eosinophils % ( Manual) 0, Basophils % (Manual) 2, Band Neutrophils 0, Platelet Estimate Adequate, Platelet Morphology Normal, Anisocytosis 2+, Sodium Level 145, Potassium Level 5.5H, Chloride Level 110H, Carbon Dioxide Level 26, Anion Gap 9 , Blood Urea Nitrogen 56H, Creatinine 2.5H, Estimat Glomerular Filtration Rate 19.1, Glucose Level 265H, Calcium Level 8.4L, Total Bilirubin 0.5, Aspartate Amino Transf (AST/SGOT) 54H, Alanine Aminotransferase (ALT/SGPT) 44, Alkaline Phosphatase 742H, Total Protein 6.7, Albumin 2.3L, Globulin 4.4, Albumin/ Globulin Ratio 0.5L, Amylase Level 170H, Lipase 1722H Height (Feet): 5 Height (Inches): 2.00 Weight (Pounds): 183 Objective WDWN NCAT Neck (+) trach Coarse BS RRR abd soft, ND, (+) GT restrained, confused Mary Jewell MD Jun 25, 2018 14:33
--- NOTE | 2018-06-25 14:34 | NUR ---
INTER-FACILITY TRANSFER: Patient transferred to [facility], per Dr. Lew. Report given to Maggi Steele. Belongings returned to patient. Family notified of discharge. Telebox removed and returned to tele. Pt discharged with BLS-EMT personnel accompanied with RT. Rectal tube, GT, and PICC Line intact and patent- patient discharged with both per Dr. Lew. Pt in stable condition at this time. No cardiopulmonary distress noted. Skin is intact. Pt is trache to vent shiley 8 AC 12 TV 500 fiO2 30%. Wrist band removed.
--- NOTE | 2018-06-25 14:42 | NUR ---
NURSE NOTES: New order of CT of abdomen noted by Dr. Jewell. Called and informed Dr. Jewell that patient discharged to [facility] few minutes ago. Dr. Jewell made aware and order cancelled.
--- NOTE | 2018-06-25 15:40 | NUR ---
*- INSURANCE *-* UPDATED AND REVIEWS HAVE BEEN FAXED TO: [facility] ROSA: RUDY P:[phone] F:[phone]
--- NOTE | 2018-06-25 19:12 | General Progress Note ---
Assessment/Plan Assessment/Plan Assessment and Recs: # Pancytopenia -- appears that initial hep and hiv are negative though final results to follow, liver shows no major hsm or cirrhosis, may consider meds or bone marrow process, smear reviewed, does have low albumin, has been hospitalized for some time, in and out since 04/30/18. Hiv and hepatitis panels are both negative --> query meds, review with ID, is on micafungin now, monitor counts closely --> given hgb downtrending and some nucleated reds on smear, will send off a flow cytometry --> nepogen 300mcg sq to maintain anc >1500 --> wbc trend : 1.7-->4.3-->3.1-->3.4-->7.7-->8.1--12-->15-->11-->14.6-->9 # Anemia of chronic disease - monitor anemia panel --> hemolysis does not appear to be the case --> anemia panel reviewed and c/w acd --> hgb trend: 8.3-->9.2-->8.9-->8.7-->9-->7.7-->7--->8 # Paroxysmal atrial fibrillation, due to CHADS-VASC score of 5, we require to keep anticoagulated, on metoprolol --> off apixban/now on lovenox # Hx of CAD, s/p CABG, ASA , atorvastatin and metoprolol. No wall motion abnormalities on Echo. LVEF ~55%. --> appreciate cards recs # Sinus tachycardia due to hypovolemia, resolved. # DKA, resolved. --> continue monitor # DM, non-compliant with medications. # Hx of HTN, controlled with metoprolol. # pancreatitis -- appreciate gi recs # increased LFT # Resp failure s/p trach/vent The timing of this note does not necessarily reflect the time of the patient was seen. Greatly appreciate consultation! Subjective ROS Limited/Unobtainable: Yes Allergies: Coded Allergies: SHELLFISH DERIVED (Verified Allergy, Unknown, swelling and itchiness, 05/14) Subjective 05/18: Pt is awake and comfortable, no events, leukopenia improved, wbc 4.3, plt 151 05/19: seen by bedside, awake, comfortable, plt 122 05/20: Pt is awake and comfortable, no events 2: Pt is seen in the room, resting in bed, no fevers or chills, wbc 8.7, plt 117 05/23: Pt is resting in bed, awake, comfortable, no fevers or chills, no acute distress. 05/24: EGD and EUS done today, has no gallbladder stones, only pancreatitis, no events 05/25: no events, dermatitis has improved, off loading of heels, pancreatitis and dka better 05/26: Pt is awake, comfortable, no acute events overnight, hgb 8.6 05/27: seen by bedside, awake, comfortable, no events 05/28: resting in bed, awake, comfortable, no fevers or chills, no acute distress , No need for ERCP per GI, 05/31: Pt is awake and comfortable, no events 06/01: awake, comfortable, denies acute distress. 06/02: seen by bedside, awake, comfortable, no acute distress. wbc 15. 06/03: no acute events, denies any abdominal pain, wbc trending down at 11 today. 06/04: awake/drowsy in bed, breathing easily on nasal cannula, denies SOB and pain at this time. 06/06: anemia cotninues to worsen, may consider a bone marrow biopsy if patient approves 06/07: hgb 9.7, not eating well, remains lethargic 06/08: hgb is stable, respiratory status is worsened, and thus was transferred to the icu 06/09: seen by bedside,awake, comfortable, plan to insert NGT samanta 06/10: not eating well, remains lethargic 06/11: poor po intake but currently on BIPAP and not stable for PEG placement, NGTF on hold per pulm 06/13:Seen by bedside, less confused, on BIPAP, no events 06/14: seen by bedside, on BIPAP, NJT feeds, no events 06/15: On BIPAP, Less confused, NJT feeds started, no events 06/16: awake, comfortable, NJT in place, more alert, on BIPAP, agreed to trach 06/17: Trach done today, PEG scheduled for am, no acute distress 06/18: PEG placement done by Dr Khorrami, tolerated well , tube feeding from tomorrow AM , no events, hgb 8.3 06/20: is in the sdu, no events, h/h relatively stable, s/p peg, tolerating feeds well 06/21: gt and trach in place, has more congestion, no events reported, cbc reviewed. 06/22: awake, alert, vent dependent, tolerating GT feeding well, no events 06/23: no events, remains in the sdu, without complaints, hgb 7.8 06/24: seen by bedside, gt and trach in place, on vent, hgb 7.9, plt 188 06/25: Pt is comfortable, no acute events, hgb 7.8 Objective Last 24 Hour Vital Signs Date Time Temp Pulse Resp B/P (MAP) Pulse Ox O2 Delivery O2 Flow Rate FiO2 06/25/18 13:24 99 26 30 06/25/18 12:02 115/57 06/25/18 12:00 Mechanical Ventilator 06/25/18 12:00 30 06/25/18 12:00 94 06/25/18 11:50 99.0 92 18 115/57 (76) 97 06/25/18 11:15 95 22 30 06/25/18 09:34 100 117/70 06/25/18 09:33 100 117/70 06/25/18 09:21 99 06/25/18 09:20 98 28 30 06/25/18 08:00 100 06/25/18 08:00 30 06/25/18 08:00 98.9 100 21 117/70 (86) 98 06/25/18 08:00 Mechanical Ventilator 06/25/18 07:16 91 22 30 06/25/18 06:00 103/60 06/25/18 05:08 95 18 30 06/25/18 04:00 Mechanical Ventilator 06/25/18 04:00 93 06/25/18 04:00 30 06/25/18 04:00 98.6 91 15 103/60 (74) 98 06/25/18 03:05 93 18 30 06/25/18 01:02 90 24 30 06/25/18 00:00 30 06/25/18 00:00 99.5 94 16 102/61 (75) 98 06/25/18 00:00 104/55 06/25/18 00:00 91 06/25/18 00:00 Mechanical Ventilator 06/24/18 23:25 92 19 30 06/24/18 21:06 92 109/58 06/24/18 21:06 108 21 30 06/24/18 20:00 97 06/24/18 20:00 Mechanical Ventilator 06/24/18 20:00 99.3 92 22 109/58 (75) 99 06/24/18 20:00 30 Intake and Output 06/24/18 06/25/18 19:00 07:00 Intake Total 860 ml 780 ml Output Total 600 ml 150 ml Balance 260 ml 630 ml Free Water 200 ml 120 ml Tube Feeding 660 ml 660 ml Output Urine Total 400 ml 100 ml Stool Total 200 ml 50 ml Laboratory Tests 06/25/18 03:00: White Blood Count 10.0, Red Blood Count 2.69L, Hemoglobin 7.8L, Hematocrit 25.7L , Mean Corpuscular Volume 96, Mean Corpuscular Hemoglobin 29.1, Mean Corpuscular Hemoglobin Concent 30.5L, Red Cell Distribution Width 21.1H, Platelet Count 195, Mean Platelet Volume 7.3, Neutrophils (%) (Auto) , Lymphocytes (%) (Auto) , Monocytes (%) (Auto) , Eosinophils (%) (Auto) , Basophils (%) (Auto) , Differential Total Cells Counted 100, Neutrophils % ( Manual) 69, Lymphocytes % (Manual) 19L, Monocytes % (Manual) 10, Eosinophils % ( Manual) 0, Basophils % (Manual) 2, Band Neutrophils 0, Platelet Estimate Adequate, Platelet Morphology Normal, Anisocytosis 2+, Sodium Level 145, Potassium Level 5.5H, Chloride Level 110H, Carbon Dioxide Level 26, Anion Gap 9 , Blood Urea Nitrogen 56H, Creatinine 2.5H, Estimat Glomerular Filtration Rate 19.1, Glucose Level 265H, Calcium Level 8.4L, Total Bilirubin 0.5, Aspartate Amino Transf (AST/SGOT) 54H, Alanine Aminotransferase (ALT/SGPT) 44, Alkaline Phosphatase 742H, Total Protein 6.7, Albumin 2.3L, Globulin 4.4, Albumin/ Globulin Ratio 0.5L, Amylase Level 170H, Lipase 1722H Height (Feet): 5 Height (Inches): 2.00 Weight (Pounds): 183 Objective PHYSICAL EXAMINATION: GENERAL: Pleasant [place]ian woman, tired HEENT: Normocephalic and atraumatic. Sclerae anicteric. Oropharynx clear. NECK: Supple Trach++/vent CHEST: bilateral crackles and ++ nc CARDIOVASCULAR: Revealed regular rate. ABDOMEN: Soft. Good bowel sounds. PEG++ EXTREMITIES: Revealed no edema. Armando Bowen MD Jun 25, 2018 19:12
[2018-06-25] MEDS ORDERED: Dyna-Hex 2% Top Sol 2oz TOPIC SCH (20:00)
--- NOTE | 2018-06-28 08:19 | Discharge Summary ---
Discharge Summary Discharge Summary _ DATE OF ADMISSION: 05/13/2018 DATE OF DISCHARGE: 06/25/2018 DISCHARGED BY: Dr. Lew REASON FOR ADMISSION: 72 years old female with past medical history of diabetes, hypertension, hypercholesterolemia, presented with evidence of diabetic ketoacidosis, sore throat, chills, dehydration, associated with some abdominal discomfort. Patient just returned from the cruise . Blood sugar 568 with elevated anion gap. Creatinine 1.8. Lipase over 2000. Elevated AST and ALT. Patient started on insulin drip and admitted to ICU for management of diabetic ketoacidosis, renal failure, pancreatis. CONSULTANTS: bindery worker Dr. Mckeon ID specialist Dr. Melendez GI specialist dr. Lynch technical aide Dr. Lambert apprentice stylist/oncologist Dr. Bowen surgery Dr. High psychiatrist [facility]: Patient admitted to ICU and started on DKA protocol with IV hydration and insulin drip. Nephrology and GI consults were requested due to acute renal failure , evidence of pancreatitis and transaminitis on admission. Diuretic and statin were hold. Patient was on insulin drip until anion gap closed, and then changed to long and short acting insulin. Patient will need further optimization of anti-glycemic regimen as an outpatient. Hemoglobin A1c -11.4 , clearly not at goal . Nephrology seen and evaluated patient. Per technical aide , patient most likely have chronic kidney disease stage III secondary to diabetic nephropathy. Renal parameters and electrolytes were closely monitored, and electrolytes corrected as needed. Nephrotoxins were avoided. GI specialist closely followed. Abdominal ultrasound revealed cholelithiasis, but was negative for dilated ducts. CT of the abdomen and pelvis revealed small bilateral pleural effusion. Basilar compressive and dependent atelectatic changes. No acute abdominal or pelvic abnormality. Cholelithiasis. No findings to suggest acute cholecystitis. Diverticulosis without evidence of diverticulitis. LFT and lipase were closely monitored. Patient subsequently undergone HIDA scan, which was negative and MRCP which revealed cholelithiasis, as previously described, without evidence of biliary ductal dilatation. Hepatitis panel was negative. HIV test was nonreactive. Lipase continued to be elevated. Patient subsequently undergone endoscopic ultrasound, which revealed pancreatitis, most probably acute without any pancreatic duct dilatation or mass. No evidence of common bile duct dilatation was seen. Gallbladder wall thickening nonspecific. 1 cm kristina hepatitis lymph node nonspecific. LFTs were trending down. No need for ERCP. Antiemetic provided as needed. Patient developed atrial fibrillation with rapid ventricular response. Cardiology consult was requested. Patient spontaneously converted to sinus rhythm. Patient had a score of 5 of CHADS-VASC and started on beta-feliciano for rate control and anticoagulation with Lovenox. GI prophylaxis provided. Echocardiogram revealed preserved ejection fraction of 55% with mild left ventricular hypertrophy. No evidence of wall motion abnormality. Moderate mitral regurgitation. Mild to moderate aortic insufficiency. Grade 3 diastolic dysfunction. Right ventricular systolic pressure of 67 consistent with a severe pulmonary hypertension. Chest x-ray demonstrated pulmonary edema with bilateral pleural effusion. Per bindery worker patient had acute heart failure with preserved ejection fraction. Spot doses of Lasix were provided with close monitoring of volumes and cardiorenal parameters. Aspirin , statin and beta-feliciano were recommended by bindery worker, given history of coronary artery disease status post CABG. When LFT trended down, statin was resumed upon discharge. Blood pressure was well controlled with calcium channel feliciano, beta-feliciano and hydralazine. Supplemental oxygen provided as needed to keep pulse oximetry above 92%. Pulmonary toilet provided. Venous duplex bilateral lower extremity revealed no evidence of acute DVT. Repeated morning venous duplex still revealed no evidence of acute DVT. VQ scan revealed low probability for pulmonary emboli. Patient was followed up with ABG and chest x-rays. Chest x-ray revealed nonspecific opacity in the right lower lung ,that may be infectious or inflammatory. WBC initially normal trended down to the lowest of 1.7. Exhibited intermittent fevers. ID and hematology consult were requested. Blood cultures were negative. Throat culture revealed no evidence of strep infection. Influenza screen test was negative. Urine culture revealed Rianna. Stool for C. difficile was negative. Sputum culture revealed Klebsiella and Streptococcus species. Patient undergone treatment with antibiotic for Klebsiella and streptococcal pneumonia as per ID specialist recommendation. Patient also noted to have lip lesions consistent with herpes virus, status post treatment. Repeated sputum culture revealed Rianna. Blood culture remained negative. WBC normalized, patient remained afebrile. ID specialist recommended to observe patient off antibiotics. CT of the brain was done on 06/01 due to altered level of consciousness which revealed findings suspicious for small subacute cortical infarct, involving the right parietal lobe. Multiple old infarcts noted. Other chronic and age-related changes noted. No findings for acute intracranial bleeding or mass-effect. Antiplatelet therapy with aspirin provided. Statin was resumed upon discharge when LFTs returned to normal. Patient subsequently required BiPAP. Meticulous pulmonary toilet provided. Patient was followed-up with serial ABG and chest x-ray. Unfortunately patient was unable to be weaned from the BiPAP and required tracheostomy placement. Surgery consult was requested. Patient subsequently undergone on 06/17 tracheostomy placement. Tracheostomy care provided. Ventilator support provided. Pulmonary toilet provided as needed. ABG post tracheostomy remained stable. Patient subsequently undergone G-tube placement . Patient started NG tube feeding with strict aspiration/reflux precaution. Patient was able to tolerate tube feeding. Prior to that patient undergone swallow evaluation , which recommended tube feeding. Protein supplements provided as per roughing mill operator recommendation. Tire Spotter closely followed. Hemoglobin and hematocrit were closely monitored with goal to keep hemoglobin above 7. During hospital stay patient required transfusion of 2 units of packed red blood cell. Anemia workup was consistent with anemia of chronic disease and low iron. No evidence of hemolysis. Patient undergone transfusion with IV Venofer. Pancytopenia resolved. Hepatitis panel was negative. HIV test was nonreactive. Cytomegalovirus profile was negative. EZRA screen was negative. Stool for occult blood x3 was negative. Psychiatrist followed and diagnosed patient with acute metabolic encephalopathy. Patient started on Zyprexa at nighttime. [facility] required [facility] to [facility]. Patient was transferred to [facility] after placement was found , for further management. FINAL DIAGNOSES: Respiratory failure, requiring BiPAP with failure to wean Status post tracheostomy Subacute cortical infarct of right parietal lobe Extensive cerebrovascular disease with history of multiple old infarcts Diabetic ketoacidosis Pancreatitis Acute renal failure on chronic kidney disease stage III secondary to diabetic nephropathy Acute metabolic encephalopathy Dysphagia ,status post PEG A. fib with rapid ventricular response History of coronary artery disease status post CABG Acute diastolic heart failure with normal ejection fraction Pleural effusion Pulmonary edema Hypertension Severe pulmonary hypertension Klebsiella/streptococcal pneumonia, status post treatment Herpes of LEEP, status post treatment Anemia of chronic disease Diabetes mellitus Hypernatremia Metabolic acidosis Hypercholesterolemia Severe protein calorie malnutrition Transaminitis Leukopenia-resolved DISCHARGE MEDICATIONS: See Medication Reconciliation list. DISCHARGE INSTRUCTIONS: [facility] to [facility] facility. Follow up with medical doctor at the facility. I have been assigned to dictate discharge summary for this account. I was not involved in the patient's management. Marilee Solorio NP Jun 28, 2018 08:19
== END 2018-06-25 14:34 | DRG 4 ==
LOC: EMR 23:22 → EDBEDREQSVC 05-13 02:05 → EDBEDREQ 05-13 02:06 → ICU 05-13 02:07 → EDBEDREQ 05-13 02:26 → 2E 05-15 19:01 → 2W 06-01 13:39 → 2E 06-02 20:45 → ICU 06-08 13:47 → 2W 06-19 02:48
PROC: BD47ZZZ Ultrasonography of Gastrointestinal Tract (ICD-10-PCS; principal; 2018-05-24 12:15)
PROC: 0DJ08ZZ Inspection of Upper Intestinal Tract, Via Natural or Artificial Opening Endoscopic (ICD-10-PCS; principal; 2018-05-24 12:15)
PROC: B518ZZA Fluoroscopy of Superior Vena Cava, Guidance (ICD-10-PCS; 2018-05-25)
PROC: 02HV33Z Insertion of Infusion Device into Superior Vena Cava, Percutaneous Approach (ICD-10-PCS; 2018-05-25)
PROC: B518ZZA Fluoroscopy of Superior Vena Cava, Guidance (ICD-10-PCS; 2018-05-31)
PROC: 02HV33Z Insertion of Infusion Device into Superior Vena Cava, Percutaneous Approach (ICD-10-PCS; 2018-05-31)
PROC: 5A1955Z Respiratory Ventilation, Greater than 96 Consecutive Hours (ICD-10-PCS; 2018-06-17)
PROC: 0B110F4 Bypass Trachea to Cutaneous with Tracheostomy Device, Open Approach (ICD-10-PCS; 2018-06-17)
PROC: 0DH63UZ Insertion of Feeding Device into Stomach, Percutaneous Approach (ICD-10-PCS; 2018-06-18)
PROC: 0DJ08ZZ Inspection of Upper Intestinal Tract, Via Natural or Artificial Opening Endoscopic (ICD-10-PCS; 2018-06-18)
DX: E10.10 Type 1 diabetes mellitus with ketoacidosis without coma (principal); E43 Unspecified severe protein-calorie malnutrition; K85.90 Acute pancreatitis without necrosis or infection, unspecified; I50.31 Acute diastolic (congestive) heart failure; G93.41 Metabolic encephalopathy; J96.91 Respiratory failure, unspecified with hypoxia; I63.9 Cerebral infarction, unspecified; J15.0 Pneumonia due to Klebsiella pneumoniae; J15.4 Pneumonia due to other streptococci; A41.9 Sepsis, unspecified organism; E87.1 Hypo-osmolality and hyponatremia; E87.2 Acidosis; N17.9 Acute kidney failure, unspecified; N39.0 Urinary tract infection, site not specified; B49 Unspecified mycosis; I13.0 Hypertensive heart and chronic kidney disease with heart failure and stage 1 through stage 4 chronic kidney disease, or unspecified chronic kidney disease; D61.818 Other pancytopenia; Z79.4 Long term (current) use of insulin; R74.0 Nonspecific elevation of levels of transaminase and lactic acid dehydrogenase [LDH]; N18.3 Chronic kidney disease, stage 3 (moderate); E10.22 Type 1 diabetes mellitus with diabetic chronic kidney disease; E10.21 Type 1 diabetes mellitus with diabetic nephropathy; M10.9 Gout, unspecified; E87.5 Hyperkalemia; E78.00 Pure hypercholesterolemia, unspecified; D64.9 Anemia, unspecified; Z68.33 Body mass index [BMI] 33.0-33.9, adult; R13.10 Dysphagia, unspecified; I25.10 Atherosclerotic heart disease of native coronary artery without angina pectoris; Z95.1 Presence of aortocoronary bypass graft; I48.0 Paroxysmal atrial fibrillation; R00.0 Tachycardia, unspecified; E86.1 Hypovolemia; I27.20 Pulmonary hypertension, unspecified; K80.20 Calculus of gallbladder without cholecystitis without obstruction; N20.9 Urinary calculus, unspecified; B00.1 Herpesviral vesicular dermatitis; R50.82 Postprocedural fever
CPT/HCPCS: 36415; 36569; 36600; 70450; 71045; 74018; 74176; 74181; 76700; 76937; 78266; 78579; 78580; 80048; 80053; 80076; 80202; 81003; 82150; 82248; 82270; 82550; 82607; 82728; 82746; 82803; 82962; 83036; 83090; 83540; 83550; 83605; 83615; 83690; 83735; 83880; 84100; 84132; 84484; 84550; 85007; 85025; 85044; 85060; 85610; 85730; 86039; 86308; 86695; 86703; 86705; 86709; 86710; 86803; 86850; 86900; 86901; 86920; 87040; 87070; 87081; 87086; 87181; 87205; 87324; 87340; 87497; 93005; 93306; 93970; 93971; 94002; 94003; 94150; 94640; 94660; 94664; 94760; 96361; 96365; 99285; A9503; J1815; J2250; J7620; J8499